=== PATIENT | male | born 1935 | race Caucasian/White ===

== ENCOUNTER 2023-04-30 09:19 | Outpatient (OUT) | payer MEDICARE, OTHER, SELFPAY ==
[2023-04-30 10:06] LABS: Basophils Absolute Auto 0.1 10^3/uL (0.0-0.1); Basophils Percent Auto 0.7 % (0.2-2.0); Eosinophils Absolute Auto 0.1 10^3/uL (0.0-0.7); Eosinophils Percent Auto 0.9 % (0.9-7.0); Hemoglobin 12.9 g/dL (14.0-18.0); Immature Granulocytes Abs Auto 0.05 10^3/uL (0.00-0.03); Immature Granulocytes Pct Auto 0.6 % (0.0-0.5); Lymphocytes Absolute Auto 1.3 10^3/uL (1.2-3.8); Lymphocytes Percent Auto 15.1 % (20.5-60.0); Mean Corpuscular HGB Conc 32.3 g/dL (29.9-35.2); Mean Corpuscular Hemoglobin 30.6 pg (25.9-34.0); Mean Platelet Volume 9.4 fL (9.5-13.5); Monocytes Absolute Auto 0.6 10^3/uL (0.3-0.8); Monocytes Percent Auto 6.6 % (1.7-12.0); Neutrophils Absolute Auto 6.8 10^3/uL (1.4-6.5); Neutrophils Percent Auto 76.1 % (43.0-75.0); Nucleated Red Blood Cells 0; Platelet Count 175 10^3/uL (150-450); Red Blood Count 4.21 10^6/uL (4.70-6.10); Red Cell Distribution Width 13.4 % (11.0-15.0); White Blood Count 8.9 10^3/uL (4.0-11.0)
[2023-04-30 10:09] LABS: Estimated Average Glucose 128 mg/dL; Glycohemoglobin A1C 6.1 % (4.5-6.2)
[2023-04-30 10:30] LABS: Bilirubin Urine NEGATIVE (NEGATIVE); Clarity Urine CLEAR (CLEAR); Color Urine LT. YELLOW (YELLOW); Glucose Urine UA NEGATIVE (NEGATIVE); Ketones Urine NEGATIVE (NEGATIVE); Leukocyte Esterase Urine SMALL (NEGATIVE); Nitrite Urine NEGATIVE (NEGATIVE); Protein Urine NEGATIVE (NEG/TRACE); Urobilinogen Urine 0.2 EU/dL (0.2-1.0); pH Urine 5.5 (5.0-9.0)
[2023-04-30 10:48] LABS: Blood Urine TRACE-I (NEGATIVE)
[2023-04-30 10:49] LABS: Urine Microscopic Indicated YES
[2023-04-30 11:02] LABS: Bacteria Urine TRACE #/HPF (NONE SEEN); Cast Seen? NONE SEEN #/LPF (NONE SEEN); Crystals Seen? None Seen #/HPF (None Seen); Mucus Urine NONE SEEN (NONE SEEN); RBC Urine 0-2 #/HPF (0-2); Squamous Epithelial Cell Urine NONE SEEN #/LPF (NONE/RARE); Urine Culture Indicated YES
[2023-04-30 11:27] LABS: Alanine Aminotransferase 21 U/L (16-63); Albumin Globulin Ratio 1.1; Albumin Level 3.9 g/dL (3.4-5.0); Alkaline Phosphatase 80 U/L (46-116); Aspartate Amino Transferase 17 U/L (15-37); Bilirubin Direct 0.3 mg/dL (0.0-0.2); Bilirubin Total 1.2 mg/dL (0.2-1.0); Carbon Dioxide 29.7 mmol/L (21.0-32.0); Chloride 101 mmol/L (98-107); Chol HDL Ratio 2.1; Cholesterol 109 mg/dL (<=200); Estimated GFR (African America >60 (>=60); Estimated GFR (Non-African Ame 55 (>=60); Globulin 3.4 g/dL; HDL Cholesterol 51 mg/dL (40-60); Potassium 3.7 mmol/L (3.5-5.1); Sodium 139 mmol/L (136-145); Total Protein 7.3 g/dL (6.4-8.2); Triglycerides 70 mg/dL (<=150)
== END 2023-04-30 09:20 ==
DX: Z79.899 Other long term (current) drug therapy (principal); R06.02 Shortness of breath; R73.09 Other abnormal glucose; E78.5 Hyperlipidemia, unspecified; R35.1 Nocturia
CPT/HCPCS: 36415; 80051; 80061; 80076; 81003; 81015; 82565; 83036; 83880; 84520; 85025; 87086

== ENCOUNTER 2023-05-05 18:06 | Outpatient (RCR) | payer MEDICARE, OTHER, SELFPAY | END 2023-05-29 23:59 | disposition home or self-care (01) | LOC: MM 18:06 | PROVIDERS: PCP Internal Medicine; Visit Provider Internal Medicine | DX: Z51.81 Encounter for therapeutic drug level monitoring (principal); Z79.01 Long term (current) use of anticoagulants; I48.91 Unspecified atrial fibrillation ==

== ENCOUNTER 2023-06-04 10:34 | Outpatient (RCR) | payer MEDICARE, SELFPAY | END 2023-06-29 16:54 | disposition home or self-care (01) | LOC: MM 10:34 | PROVIDERS: PCP Internal Medicine; Visit Provider Internal Medicine | DX: Z51.81 Encounter for therapeutic drug level monitoring (principal); Z79.01 Long term (current) use of anticoagulants; I48.91 Unspecified atrial fibrillation | CPT/HCPCS: 85610; G0463 ==

== ENCOUNTER 2023-06-30 09:09 | Outpatient (RCR) | payer MEDICARE, SELFPAY | END 2023-07-30 17:28 | disposition home or self-care (01) | LOC: MM 09:09 | PROVIDERS: Visit Provider Internal Medicine | DX: Z51.81 Encounter for therapeutic drug level monitoring (principal); Z79.01 Long term (current) use of anticoagulants; I48.91 Unspecified atrial fibrillation | CPT/HCPCS: 85610; G0463 ==

== ENCOUNTER 2023-07-31 10:12 | Outpatient (RCR) | payer MEDICARE, SELFPAY | END 2023-08-28 16:45 | disposition home or self-care (01) | LOC: MM 10:12 | PROVIDERS: Visit Provider Internal Medicine | DX: I48.91 Unspecified atrial fibrillation (principal) | CPT/HCPCS: 85610; G0463 ==

== ENCOUNTER 2023-08-31 02:34 | Outpatient (RCR) | payer MEDICARE, SELFPAY | END 2023-09-29 17:39 | disposition home or self-care (01) | LOC: MM 02:34 | PROVIDERS: Visit Provider Internal Medicine | DX: Z51.81 Encounter for therapeutic drug level monitoring (principal); Z79.01 Long term (current) use of anticoagulants; I48.91 Unspecified atrial fibrillation | CPT/HCPCS: 85610; G0463 ==

== ENCOUNTER 2023-09-30 00:28 | Outpatient (RCR) | payer MEDICARE, SELFPAY | END 2023-10-29 16:26 | disposition home or self-care (01) | LOC: MM 00:28 | PROVIDERS: Visit Provider Internal Medicine | DX: Z51.81 Encounter for therapeutic drug level monitoring (principal); Z79.01 Long term (current) use of anticoagulants; I48.91 Unspecified atrial fibrillation | CPT/HCPCS: 85610; G0463 ==

== ENCOUNTER 2023-10-07 09:35 | Outpatient (OUT) | payer MEDICARE, SELFPAY ==
[2023-10-07 10:02] LABS: Basophils Absolute Auto 0.1 10^3/uL (0.0-0.1); Basophils Percent Auto 0.6 % (0.2-2.0); Eosinophils Absolute Auto 0.1 10^3/uL (0.0-0.7); Eosinophils Percent Auto 0.9 % (0.9-7.0); Hematocrit 37.5 % (42.0-54.0); Hemoglobin 11.8 g/dL (14.0-18.0); Immature Granulocytes Abs Auto 0.04 10^3/uL (0.00-0.03); Immature Granulocytes Pct Auto 0.4 % (0.0-0.5); Lymphocytes Absolute Auto 1.4 10^3/uL (1.2-3.8); Lymphocytes Percent Auto 14.7 % (20.5-60.0); Mean Corpuscular HGB Conc 31.5 g/dL (29.9-35.2); Mean Corpuscular Hemoglobin 31.2 pg (25.9-34.0); Mean Corpuscular Volume 99.2 fL (80.0-94.0); Mean Platelet Volume 9.6 fL (9.5-13.5); Monocytes Absolute Auto 0.6 10^3/uL (0.3-0.8); Monocytes Percent Auto 6.2 % (1.7-12.0); Neutrophils Absolute Auto 7.2 10^3/uL (1.4-6.5); Neutrophils Percent Auto 77.2 % (43.0-75.0); Platelet Count 185 10^3/uL (150-450); Red Blood Count 3.78 10^6/uL (4.70-6.10); Red Cell Distribution Width 13.8 % (11.0-15.0); White Blood Count 9.3 10^3/uL (4.0-11.0)
[2023-10-07 10:03] LABS: Estimated Average Glucose 117 mg/dL; Glycohemoglobin A1C 5.7 % (4.5-6.2)
[2023-10-07 10:22] LABS: Alanine Aminotransferase 21 U/L (16-63); Albumin Globulin Ratio 1.3; Albumin Level 3.9 g/dL (3.4-5.0); Alkaline Phosphatase 71 U/L (46-116); Anion Gap 12.8; Aspartate Amino Transferase 15 U/L (15-37); Bilirubin Direct 0.3 mg/dL (0.0-0.2); Bilirubin Total 1.4 mg/dL (0.2-1.0); Carbon Dioxide 28.3 mmol/L (21.0-32.0); Chloride 100 mmol/L (98-107); Chol HDL Ratio 2.3; Cholesterol 108 mg/dL (<=200); Estimated GFR (African America >60 (>=60); Estimated GFR (Non-African Ame >60 (>=60); Globulin 3.1 g/dL; HDL Cholesterol 47 mg/dL (40-60); Potassium 4.1 mmol/L (3.5-5.1); Sodium 137 mmol/L (136-145); Thyroid Stimulating Hormone 3.698 uIU/mL (0.358-3.740); Triglycerides 65 mg/dL (<=150)
[2023-10-07 13:32] LABS: Bilirubin Urine NEGATIVE (NEGATIVE); Blood Urine NEGATIVE (NEGATIVE); Clarity Urine CLEAR (CLEAR); Color Urine YELLOW (YELLOW); Glucose Urine UA NEGATIVE (NEGATIVE); Ketones Urine NEGATIVE (NEGATIVE); Leukocyte Esterase Urine NEGATIVE (NEGATIVE); Nitrite Urine NEGATIVE (NEGATIVE); Protein Urine TRACE mg/dL (NEG/TRACE); Urobilinogen Urine 0.2 EU/dL (0.2-1.0); pH Urine 6.5 (5.0-9.0)
[2023-10-07 13:33] LABS: Urine Microscopic Indicated NO
== END 2023-10-07 09:36 | disposition home or self-care (01) ==
PROVIDERS: Visit Provider Internal Medicine
DX: I50.42 Chronic combined systolic (congestive) and diastolic (congestive) heart failure (principal); R73.09 Other abnormal glucose; D50.9 Iron deficiency anemia, unspecified; N18.30 Chronic kidney disease, stage 3 unspecified; E78.5 Hyperlipidemia, unspecified; Z79.899 Other long term (current) drug therapy; R35.1 Nocturia
CPT/HCPCS: 36415; 80051; 80061; 80076; 81003; 82565; 83036; 83880; 84443; 84520; 85025

== ENCOUNTER 2023-10-28 09:36 | Outpatient (OUT) | payer MEDICARE, SELFPAY ==
--- NOTE | 2023-10-28 10:46 | CA_ITS ---
Patient Name: ALVIN BOYD MR#: [id number] : 1935 Exam Date: 10/28/2023 Ordering Doctor: SHASTA SELBY ECHOCARDIOGRAM REPORT PROCEDURE: CA ECHO DOPPLER COMPLETE INDICATIONS: Aortic root dilatation, Aortic root aneurysm, IL, stents, pacemaker, hypertension COMPARISON: None. DESCRIPTION: COMPLETE ECHOCARDIOGRAM Real-time transthoracic echocardiography with 2D, M-mode, spectral and color flow Doppler performed. QUALITY: Technical quality was good. 68 , 225# , BSA 2.15 m2 LEFT VENTRICLE: Normal chamber size. Thickened septal wall. Normal systolic function. LV EF: Normal left ventricular ejection fraction, (55%). DIASTOLIC: Grade III diastolic dysfunction. ATRIAL SEPTUM: LEFT ATRIUM: Severe dilatation. RIGHT ATRIUM: Moderate dilatation. RIGHT VENTRICLE: Normal chamber size. Normal systolic function. Pacer wire present. TRICUSPID VALVE: Normal mobility and thickness. No stenosis with mild regurgitation. Doppler studies reveal mildly (35-45) elevated right sided pressures. RVSP 39 mmHg MITRAL VALVE: Mildly thickened with normal mobility. No evidence of mitral valve stenosis. Mild mitral annular calcification. Mild mitral regurgitation. AORTIC VALVE: Normal trileaflet appearance. Calcified aortic valve with diminished mobility. There appears to be at least mild aortic valve stenosis. No aortic regurgitation. AORTIC ROOT: Aortic root is moderately dilated (4.0 cm). The ascending aorta is normal in size, measuring 3.6 cm. PULMONIC VALVE: Normal thickness and mobility. No stenosis. No regurgitation. PERICARDIUM: No evidence of pericardial effusion. IVC: Not well visualized. PLEURA: CONCLUSION: 1. Normal left ventricular systolic function. LVEF is 55%. 2. Normal right ventricular size and systolic function. 3. Moderate to severe biatrial dilatation. 4. Grade 3 diastolic dysfunction. 5. Mild mitral and tricuspid regurgitation. 6. Moderately dilated aortic root measuring 4.0 cm. 7. The aortic valve is thickened, calcified with at least mild stenosis. There was inability to visualize the valve well and obtain adequate alignment to measure gradients. Therefore, if clinically indicated, a transesophageal echocardiogram would provide better assessment of the aortic valve. Adult Echocardiography Procedure Report Left Ventricle LVEDD (3.7 - 5.6 cm): 4.55 cm LVESD (2.2 - 4.0 cm): 3.35 cm LVIVS thickness (0.6 - 1.2 cm): 1.48 cm LVPW thickness (0.5 - 1.0 cm): 1.12 cm e': 0.06 m/s E - e': 16.15 LVOT Max Gradient: 1.49 mm[Hg] LVOT Area (cm2): 0.61 m/s Peak Velocity (LVOT): 0.61 m/s Mean Velocity (LVOT): 0.49 m/s LVOT Diameter 2.25 cm Left Atrium LA Volume Index (2D A2C): 51.70 ml/m2 Left Atrium Systolic Dimension: 4.31 cm Mitral Valve MV E to A Ratio: 3.10 Mitral Valve A-Wave Peak Velocity: 0.34 m/s Mitral Valve E-Wave Peak Velocity: 1.04 m/s Right Ventricle Aorta AO Root Diam: 3.98 cm Ascending Ao Diam: 3.22 cm Aortic Valve AoV Area (Peak Cheikh): 1.45 cm2, 1.50 cm2 AoV Area (VTI): 1.65 cm2, 1.74 cm2 Peak Velocity(Antegrade Flow): 1.62 m/s, 1.69 m/s, 1.71 m/s Peak Gradient(Antegrade Flow): 10.44 mm[Hg], 11.43 mm[Hg], 11.73 mm[Hg] Mean Velocity(Antegrade Flow): 1.22 m/s, 1.36 m/s, 1.11 m/s Mean Gradient(Antegrade Flow): 6.47 mm[Hg], 7.70 mm[Hg], 5.68 mm[Hg] Velocity Time Integral: 31.68 cm, 36.73 cm, 31.63 cm Tricuspid Valve Peak Velocity (Regurgitant Flow): 2.43 m/s Pulmonic Valve Peak Velocity: 0.57 m/s Peak Gradient: 0.95 mm[Hg], 1.71 mm[Hg] Right Atrium Right Atrium Systolic Pressure: 85.50 ml, 85.50 ml Dictated by: Salo Campbell M.D. on 10/28/2023 at 20:25 Approved by: Salo Campbell M.D. on 10/28/2023 at 20:28
== END 2023-10-28 09:37 | disposition home or self-care (01) ==
LOC: CARD 09:36
PROVIDERS: Visit Provider Nurse Practitioner
DX: Z51.81 Encounter for therapeutic drug level monitoring (principal); Z79.01 Long term (current) use of anticoagulants; I48.91 Unspecified atrial fibrillation; I50.22 Chronic systolic (congestive) heart failure; I08.3 Combined rheumatic disorders of mitral, aortic and tricuspid valves
CPT/HCPCS: 93306; G0463

== ENCOUNTER 2023-10-30 09:18 | Outpatient (RCR) | payer MEDICARE, SELFPAY | END 2023-11-27 14:42 | disposition home or self-care (01) | LOC: MM 09:18 | PROVIDERS: Visit Provider Internal Medicine | DX: Z51.81 Encounter for therapeutic drug level monitoring (principal); Z79.01 Long term (current) use of anticoagulants; I48.91 Unspecified atrial fibrillation | CPT/HCPCS: 85610; G0463 ==

== ENCOUNTER 2023-11-26 18:01 | Inpatient (IN) | payer MEDICARE, SELFPAY ==
[2023-11-26] VITALS (25 sets, daily range): BP systolic 106–121; BP diastolic 58–66; PULSE 60–63; RESP 13–27; TEMP 36.8–38.7; O2SAT 87–98; BMI 34.9; BMI 36.1
--- OUTSIDE RECORDS SUMMARY | 2023-11-26 18:24 | XMS_ITS | CCD ---
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 Name Role Phone AUXIER, MYRNA DENIS Unavailable Unavailabl e BAKOS, JOHNATHAN Unavailable Unavailable BAKOS, JOHNATHAN Unavailable Unavailable AUXIER, MYRNA DENIS Unavailable Unavailabl e BAKOS, JOHNATHAN Unavailable Unavailable BAKOS, JOHNATHAN Unavailable Unavailable AUXIER, MYRNA DENIS Unavailable Unavailabl e AUXIER, MYRNA DENIS Unavailable Unavailabl e BAKOS, JOHNATHAN Unavailable Unavailable BAKOS, JOHNATHAN Unavailable Unavailable VALONERIO FABIENNE Unavailable Unavailabl e AUXIER, MYRNA DENIS Unavailable Unavailabl e Valone, Rio Fabienne Unavailable Unavailabl e AUXIER, MYRNA DENIS Unavailable Unavailabl e Valone, Rio Fabienne Unavailable Unavailabl e MORLEY, DRAGAN CINTHIA Unavailable Unavailable Morrow, Myrna Denis~[id number] Unavailable Unavailable ValoneRio Fabienne Unavailable Unavailabl e Valone, Rio Fabienne Unavailable Unavailabl e Arsalan Leija Unavailable Unavailable VALONE, RIO FABIENNE Unavailable Unavailabl e MORLEY, DRAGAN CINTHIA Unavailable Unavailable Rio Lal Unavailable Unavailmarquise e VALONERIO Referring Unavailable RIO LAL Primary Care Unavailable PERLITA LUCAS Attending Unavailable PERLITA LUCAS Admitting Unavailable GERBER PETER Admitting Unavailable GERBER PETER Attending Unavailable RIO LAL Referring Unavailable RIO LAL Primary Care Unavailable SHAIKH Milan URIBE Attending Unavailable SHAIKH Milan URIBE Admitting Unavailable DR RIO LAL Primary Care Unavailable SHAIKH Milan URIBE Attending Unavailable SHAIKH Milan URIBE Admitting Unavailable DR RIO LAL Primary Care Unavailable SHAIKH Milan URIBE Attending Unavailable FAWWAD, NOGUEIRA H Admitting Unavailable VALONE, DR MCCLURE Primary Care Unavailable FAWWAD, NOGUEIRA H Attending Unavailable FAWWAD, NOGUEIRA H Admitting Unavailable VALONE, DR MCCLURE Primary Care Unavailable FAWWAD, NOGUEIRA H Admitting Unavailable VALONE, DR MCCLURE Primary Care Unavailable FAWWAD, NOGUEIRA H Attending Unavailable FAWWAD, NOGUEIRA H Admitting Unavailable VALONE, DR MCCLURE Primary Care Unavailable FAWWAD, NOGUEIRA H Attending Unavailable FAWWAD, NOGUEIRA H Attending Unavailable VALONE, DR MCCLURE Primary Care Unavailable FAWWAD, NOGUEIRA H Admitting Unavailable FAWWAD, NOGUEIRA H Attending Unavailable FAWWAD, NOGUEIRA H Admitting Unavailable VALONE, DR MCCLURE Primary Care Unavailable FAWWAD, NOGUEIRA H Attending Unavailable FAWWAD, NOGUEIRA H Admitting Unavailable VALONE, DR MCCLURE Primary Care Unavailable VALONE, DR MCCLURE Primary Care Unavailable VALONE, DR MCCLURE Consulting Unavailable VALONE, DR MCCLURE Attending Unavailable VALONE, DR MCCLURE Admitting Unavailable JAUREGUIDOMINIQUE Consulting Unavailable MANSI ., JERRI Admitting Unavailable VALONE, DR MCCLURE Primary Care Unavailable MANSI ., JERRI Attending Unavailable MANSI ., JERRI Consulting Unavailable FAWWAD, NOGUEIRA H Attending Unavailable FAWWAD, NOGUEIRA H Admitting Unavailable VALONE, DR MCCLURE Primary Care Unavailable FAWWAD, NOGUEIRA H Attending Unavailable FAWWAD, NOGUEIRA H Admitting Unavailable VALONE, DR MCCLURE Primary Care Unavailable SHASTA SELBY Attending Unavailable CUCA YUAN Referring Unavailable CUCA YUAN Referring Unavailable SHASTA SELBY Attending Unavailable DRAGAN SANTOS Attending Unavailable Allergies Allergy Classification Reported Allergen(s) Allergy Type Date of Onset Reaction(s) Facility (1 source) 70597,00; Translations: [Unknown] Propensity to adverse reactions (disorder) 9 [facility] Repository Problems Active Problems Problem Classification Problem Date Documented Date Episodic/Chronic Aortic; peripheral; and visceral artery aneurysms (2 sources) Thoracic aortic ectasia; Translations: [Thoracic aortic ectasia] Onset: 10-19-2023 Chronic Cardiac dysrhythmias (5 sources) Unspecified atrial fibrillation; Translations: [UNSPECIFIED ATRIAL FIBRILLATION] Onset: 03-02-2023 Chronic Chronic kidney disease (1 source) Chronic kidney disease; 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] Onset: 11-12-2022 Conduction disorders (6 sources) Encounter for adjustment and management of automatic implantable cardiac defibrillator; Translations: [Unspecified atrioventricular block] Onset: 10-29-2022 Chronic Congestive heart failure; nonhypertensive (5 sources) Heart failure, unspecified; Translations: [Chronic diastolic (congestive) heart failure] Onset: 11-11-2022 Chronic Coronary atherosclerosis and other heart disease (4 sources) Old myocardial infarction; Translations: [Atherosclerotic heart disease of eek coronary artery without angina pectoris] Onset: 10-29-2022 Chronic Disorders of lipid metabolism (3 sources) Pure hypercholesterolemia, unspecified; Translations: [Mixed hyperlipidemia] Onset: 10-29-2022 Chronic Esophageal disorders (1 source) Gastro-esophageal reflux disease without esophagitis; Translations: [GERD WITHOUT ESOPHAGITIS] Onset: 2022 Chronic Heart valve disorders (4 sources) Nonrheumatic aortic (valve) stenosis; Translations: [Rheumatic mitral valve disease, unspecified] Onset: 10-29-2022 Chronic Hypertension with complications and secondary hypertension (3 sources) Hypertensive heart disease with heart failure; Translations: [HTN HEART DISEASE W/HEART FAIL] Onset: 10-29-2022 Chronic Nutritional deficiencies (1 source) Vitamin D deficiency, unspecified; Translations: [VITAMIN D DEFICIENCY UNSPECIFIED] Onset: 11-12-2022 Chronic Other aftercare (5 sources) Encounter for therapeutic drug level monitoring; Translations: [ENC THERAPEUTC DRUG LEVL MONITORING] Onset: 03-28-2023 Episodic Other aftercare (1 source) FPC (current) use of anticoagulants; Translations: [ALF CURRNT USE ANTICOAGULANTS] Onset: 04-29-2023 Episodic Other connective tissue disease (1 source) Presence of artificial hip joint, bilateral; Translations: [PRESENCE ARTIFICIAL HIP JOINT BILAT] Onset: 2022 Chronic Other nutritional; endocrine; and metabolic disorders (1 source) Morbid (severe) obesity due to excess calories; Translations: [MORBID SEVERE OBES D/T EXCESS LORENA] Onset: 2022 Chronic Other nutritional; endocrine; and metabolic disorders (1 source) Body mass index (BMI) 34.0-34.9, adult; Translations: [BODY MASS INDEX BMI 34.0-34.9 ADULT] Onset: 2022 Chronic Christina-; endo-; and myocarditis; cardiomyopathy (except that caused by tuberculosis or sexually transmitted disease) (2 sources) Cardiomyopathy in diseases classified elsewhere; Translations: [Cardiomyopathy in diseases classified elsewhere] Onset: 10-29-2022 Chronic Residual codes; unclassified (1 source) Sleep apnea, unspecified; Translations: [SLEEP APNEA UNSPECIFIED] Onset: 2022 Chronic Unclassified (1 source) Aneurysm of the ascending aorta, without rupture; Translations: [Aneurysm of the ascending aorta, without rupture] Onset: 10-19-2023 Unclassified (2 sources) Chronic atrial fibrillation, unspecified; Translations: [Chronic atrial fibrillation, unspecified] Onset: 10-29-2022 Past or Other Problems Problem Classification Problem Date Documented Da te Episodic/Chronic Abdominal pain (4 sources) Unspecified abdominal pain; Translations: [UNSPECIFIED ABDOMINAL PAIN] Onset: 12-18-2022 Episodic Coronary atherosclerosis and other heart disease (1 source) Presence of coronary angioplasty implant and graft; Translations: [PRESENCE COR ANGPLSTY IMPLANT AND GRAFT] Onset: 2022 Episodic Deficiency and other anemia (1 source) Iron deficiency anemia, unspecified; Translations: [IRON DEFICIENCY ANEMIA UNSPECIFIED] Onset: 11-12-2022 Episodic Diabetes mellitus without complication (1 source) Other abnormal glucose; Translations: [OTHER ABNORMAL GLUCOSE] Onset: 11-12-2022 Episodic Fluid and electrolyte disorders (1 source) Dehydration; Translations: [DEHYDRATION] Onset: 2022 Episodic Nausea and vomiting (1 source) Nausea; Translations: [NAUSEA] Onset: 2022 Episodic Noninfectious gastroenteritis (1 source) Noninfective gastroenteritis and colitis, unspecified; Translations: [NONINFECTIVE GE AND COLITIS UNS] Onset: 2022 Episodic Other aftercare (1 source) 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; Translations: [OTH ALF CURRENT DRUG THERAPY] Onset: 2022 Episodic Other aftercare (1 source) FPC (current) use of aspirin; Translations: [ALF CURRENT USE OF ASPIRIN] Onset: 2022 Episodic Other lower respiratory disease (2 sources) Other forms of dyspnea; Translations: [Other forms of dyspnea] Onset: 10-29-2022 Episodic Phlebitis; thrombophlebitis and thromboembolism (1 source) Personal history of other venous thrombosis and embolism; Translations: [PERS HX OTH VENOUS THROMBOSIS AND EMBO] Onset: 2022 Episodic Pulmonary heart disease (1 source) Personal history of pulmonary embolism; Translations: [PERSONAL HISTORY PULMONARY EMBOLISM] Onset: 2022 Episodic Residual codes; unclassified (2 sources) Localized edema; Translations: [Localized edema] Onset: 10-29-2022 Episodic Screening and history of mental health and substance abuse codes (1 source) Personal history of nicotine dependence; Translations: [PERSONAL HISTORY OF NICOTINE DEPEND] Onset: 2022 Episodic Unclassified (1 source) Aneurysm of the ascending aorta, without rupture; Translations: [Aneurysm of the ascending aorta, without rupture] Onset: 10-19-2023 Results Test Name Value Interpretation Reference Range Facility Office Visiton 10-19-2023 Follow-up visit [id number] Calin [facility] 1935 M [facility] Provider Department Center 10/19/2023 SHASAT CROFT [facility] No family history on file Level of Service:69187 SD OFFICE/OUTPATIENT ESTABLISHED MOD MDM 30-39 MIN Normal [facility] Office Visiton 04-08-2023 Follow-up visit [id number] Calin Boyd [facility] 1935 M Date Provider Department Center 04/08/2023 SHASTA CROFT [facility] No family history on file Level of Service:57444 SD OFFICE/OUTPATIENT ESTABLISHED MOD MDM 30-39 MIN Reason for Visit and Comments: Coronary Artery Disease [187] Atrial Fibrillation [80] Congestive Heart Failure [127] Hypertension [808753] Valve Disorder [3372] Normal [facility] CBC AUTO DIFFon 12-18-2022 BASO # 0.1 103/ul Normal 0.0-0.1 [facility] Comment on above: Performed By: #### C BC #### [facility] [address] [address] [address] Dana Angulo Basophils/100 WBC (Bld) 0.8 % Normal 0.2-2.0 [facility] Comment on above: Performed By: #### C BC #### [facility] [address] [place] [address] Dr. Dana Angulo EO # 0.1 103/ul Normal 0.0-0.7 [facility] Comment on above: Performed By: #### C BC #### [facility] [address] [place] [address] Dr. Dana Angulo Eosinophils/100 WBC (Bld) 0.9 % Normal 0.9-7.0 [facility] Comment on above: Performed By: #### C BC #### [facility] [address] [place] [address] Dr. Dana Angulo Erythrocyte distribution width (RBC) [Ratio] 13.2 % Normal 11.0-15.0 [facility] Comment on above: Performed By: #### C BC #### [facility] [address] [place] [address] Dr. Dana Angulo Hematocrit (Bld) [Volume fraction] 37.1 % Critically low 42.0-54.0 [facility] Comment on above: Performed By: #### C BC #### [facility] [address] [place] [address] Dr. Dana Angulo Hemoglobin (Bld) [Mass/Vol] 12.1 g/dL Critically low 14.0-18.0 [facility] Comment on above: Performed By: #### C BC #### [facility] [address] [place] [address] Dr. Dana Angulo IG # 0.03 10e3/ul Normal 0.00-0.03 [facility] Comment on above: Performed By: #### C BC #### [facility] [address] [place] [address] Dr. Dana Angulo IG % 0.4 % Normal 0.0-0.5 [facility] Comment on above: Performed By: #### C BC #### [facility] [address] [place] [address] Dr. Dana Angulo LYMPH # 1.4 103/ul Normal 1.2-3.8 [facility] Comment on above: Performed By: #### C BC #### [facility] [address] [place] [address] Dr. Dana Angulo Lymphocytes/100 WBC (Bld) 19.0 % Critically low 20.5-60.0 [facility] Comment on above: Performed By: #### C BC #### [facility] [address] [place] [address] Dr. Dana Angulo MANUAL DIFF REQ NO Normal [facility] Comment on above: Performed By: #### C BC #### [facility] [address] [place] [address] Dr. Dana Angulo MCH (RBC) [Entitic mass] 30.6 pg Normal 25.9-34.0 [facility] Comment on above: Performed By: #### C BC #### [facility] [address] [place] [address] Dr. Dana Angulo MCHC (RBC) [Mass/Vol] 32.6 g/dL Normal 29.9-35.2 [facility] Comment on above: Performed By: #### C BC #### [facility] [address] [place] [address] Dr. Dana Angulo MCV (RBC) [Entitic vol] 93.7 fL Normal 80.0-94.0 [facility] Comment on above: Performed By: #### C BC #### [facility] [address] [place] [address] Dr. Dana Angulo MONO # 0.5 103/ul Normal 0.3-0.8 [facility] Comment on above: Performed By: #### C BC #### [facility] [address] [place] [address] Dr. Dana Angulo Monocytes/100 WBC (Bld) 7.2 % Normal 1.7-12.0 [facility] Comment on above: Performed By: #### C BC #### [facility] [address] [place] [address] Dr. Dana Angulo NEUT # 5.4 103/ul Normal 1.4-6.5 [facility] Comment on above: Performed By: #### C BC #### [facility] [address] [place] [address] Dr. Dana Anuglo Neutrophils/100 WBC (Bld) 71.7 % Normal 43.0-75.0 [facility] Comment on above: Performed By: #### C BC #### [facility] [address] [place] [address] Dr. Dana Angulo Platelet mean volume (Bld) [Entitic vol] 9.6 fL Normal 9.5-13.5 [facility] Comment on above: Performed By: #### C BC #### [facility] [address] [place] [address] Dr. Dana Angulo PLT 165 103/ul Normal 150-450 [facility] Comment on above: Performed By: #### C BC #### [facility] [address] [place] [address] Dr. Dana Angulo RBC 3.96 106/ul Critically low 4.70-6.10 [facility] Comment on above: Performed By: #### C BC #### [facility] [address] [place] [address] Dr. Dana Angulo WBC 7.5 103/ul Normal 4.0-11.0 [facility] Comment on above: Performed By: #### C BC #### [facility] [address] [place] [address] Dr. Dana Angulo ER URINE PROFILEon 3 Bilirubin Ql (U) Negative Normal NEGATIVE [facility] Comment on above: Performed By: #### ANGELINA FRIENDRO #### [facility] [address] [place] [address] Dr. Dana Angulo Clarity (U) CLEAR Normal CLEAR [facility] Comment on above: Performed By: #### ANGELINA FRIENDRO #### [facility] [address] [place] [address] Dr. Dana Angulo Color (U) LT. YELLOW Normal YELLOW [facility] Comment on above: Performed By: #### ANGELINA FRIENDRO #### [facility] [address] [place] [address] Dr. Dana GÓMEZ A micrscopic examina tion will be performed if indicated. Normal [facility] Comment on above: Performed By: #### Marino KENYON UMICRO #### [facility] [address] [place] [address] Dr. Dana Angulo Glucose Ql (U) Negative Normal NEGATIVE [facility] Comment on above: Performed By: #### Marino KENYON UMICRO #### [facility] [address] [place] [address] Dr. Dana Angulo Hemoglobin Ql (U) Negative Normal NEGATIVE [facility] Comment on above: Performed By: #### Marino KENYON UMICRO #### [facility] [address] [place] [address] Dr. Dana Angulo Ketones Ql (U) Negative Normal NEGATIVE [facility] Comment on above: Performed By: #### Marino KENYON UMICRO #### [facility] [address] [place] [address] Dr. Dana Angulo LEUKOCYTES TRACE Abnormal NEGATIVE [facility] Comment on above: Performed By: #### Marino KENYON UMICRO #### [facility] [address] [place] [address] Dr. Dana Angulo Nitrite Ql (U) Negative Normal NEGATIVE [facility] Comment on above: Performed By: #### Marino KENYON UMICRO #### [facility] [address] [place] [address] Dr. Daan Angulo pH (U) 6.0 [pH] Normal 5-9 [facility] Comment on above: Performed By: #### Marino KENYON UMICRO #### [facility] [address] [place] [address] Dr. Dana Angulo SPEC GRAVITY 1.015 Normal 1.005-<=1.02 5 [facility] Comment on above: Performed By: #### Marino KENYON UMICRO #### [facility] [address] [place] [address] Dr. Dana Angulo UA PROTEIN Negative Normal NEGATIVE/ TRACE [facility] Comment on above: Performed By: #### ANGELINA FRIENDRO #### [facility] [address] [place] [address] Dr. Dana Angulo UR MICRO IND INDICATED Normal [facility] Comment on above: Performed By: #### E ANGELINA KENYONRO #### [facility] [address] [place] [address] Dr. Dana Angulo Urobilinogen Qn (U) 0.2 {Delia'U}/dL Normal 0.2 - 1.0 [facility] Comment on above: Performed By: #### ANGELINA FRIENDRO #### [facility] [address] [place] [address] Dr. Dana Angulo LACTATE/LACTIC ACIDon 2022 Lactate [Moles/Vol] 1.1 mmol/L Normal 0.4-1.9 [facility] Comment on above: Performed By: #### L ACT #### [facility] [address] [place] [address] Dr. Dana Angulo LIPASEon 12-18-2022 Lipase [Catalytic activity/Vol] 68.0 U/L Critically low 73.0-393.0 [facility] Comment on above: Performed By: #### C BC #### [facility] [address] [place] [address] Dr. Dana Angulo OCC BLD IMMUNO SCREENon 11-30 OCCULT BLOOD Negative Normal NEGATIVE [facility] Comment on above: Performed By: #### H STROPN #### [facility] [address] [place] [address] Dr. Dana Angulo PROF 14(COMP METB)on 023 Albumin [Mass/Vol] 3.8 g/dL Normal 3.4-5.0 [facility] Comment on above: Performed By: #### C BC #### [facility] [address] [place] [address] Dr. Dana Angulo Albumin/Globulin [Mass ratio] 1.3 {ratio} Normal [facility] Comment on above: Performed By: #### C BC #### [facility] [address] [place] [address] Dr. Dana Angulo ALP [Catalytic activity/Vol] 70 U/L Normal 46-116 [facility] Comment on above: Performed By: #### C BC #### [facility] [address] [place] [address] Dr. Dana Angulo ALT [Catalytic activity/Vol] 22 U/L Normal 16-63 [facility] Comment on above: Performed By: #### C BC #### [facility] [address] [place] [address] Dr. Dana Angulo Anion gap [Moles/Vol] 13.5 mmol/L Normal [facility] Comment on above: Performed By: #### C BC #### [facility] [address] [place] [address] Dr. Dana Angulo AST [Catalytic activity/Vol] 25 U/L Normal 15-37 [facility] Comment on above: Performed By: #### C BC #### [facility] [address] [place] [address] Dr. Dana Angulo Bilirubin [Mass/Vol] 1.0 mg/dL Normal 0.2-1.0 [facility] Comment on above: Performed By: #### C BC #### [facility] [address] [place] [address] Dr. Dana Angulo Calcium [Mass/Vol] 9.7 mg/dL Normal 8.5-10.1 [facility] Comment on above: Performed By: #### C BC #### [facility] [address] [place] [address] Dr. Dana Angulo Chloride [Moles/Vol] 103 mmol/L Normal 98-107 [facility] Comment on above: Performed By: #### C BC #### [facility] [address] [place] [address] Dr. Dana Angulo CO2 [Moles/Vol] 25.1 mmol/L Normal 21.0-32.0 [facility] Comment on above: Performed By: #### C BC #### [facility] [address] [place] [address] Dr. Dana Angulo Creatinine [Mass/Vol] 1.07 mg/dL Normal 0.70-1.30 [facility] Comment on above: Performed By: #### C BC #### [facility] [address] [address] [address] Dana Angulo EGFR-AF FIJIAN >60 Normal >=60 [facility] Comment on above: Performed By: #### C BC #### [facility] [address] [address] [address] Dana Angulo EGFR-NON AF FIJIAN >60 Normal >=60 [facility] Comment on above: Performed By: #### C BC #### [facility] [address] [address] [address] Dana Angulo Globulin (S) [Mass/Vol] 3.0 g/dL Normal [facility] Comment on above: Performed By: #### C BC #### [facility] [address] [place] [address] Dr. Dana Angulo Glucose [Mass/Vol] 115 mg/dL Critically high 74-106 [facility] Comment on above: Performed By: #### C BC #### [facility] [address] [place] [address] Dr. Dana Angulo Potassium [Moles/Vol] 3.6 mmol/L Normal 3.5-5.1 [facility] Comment on above: Performed By: #### C BC #### [facility] [address] [place] [address] Dr. Dana Angulo Protein [Mass/Vol] 6.8 g/dL Normal 6.4-8.2 [facility] Comment on above: Performed By: #### C BC #### [facility] [address] [place] [address] Dr. Dana Angulo Sodium [Moles/Vol] 138 mmol/L Normal 136-145 [facility] Comment on above: Performed By: #### C BC #### [facility] [address] [place] [address] Dr. Dana Angulo Urea nitrogen [Mass/Vol] 39.0 mg/dL Critically high 7.0-18.0 [facility] Comment on above: Performed By: #### C BC #### [facility] [address] [place] [address] Dr. Dana Angulo Urea nitrogen/Creatinin e [Mass ratio] 36.4 mg/mg Normal [facility] Comment on above: Performed By: #### C BC #### [facility] [address] [place] [address] Dr. Dana Angulo PROTIMEon 12-18-2022 INR Coag (PPP) [Relative time] 2.15 {INR} Normal [facility] Comment on above: Performed By: #### P T, PTT #### [facility] [address] [place] [address] Dr. Dana Angulo INR GUIDELINES SEE BELOW Normal [facility] Comment on above: Result Comment: BETTINA RED INR: 2.0 - 3.0 CONDITIONS NOT LISTED BELOW 2.5 - 3.5 FOR PROSTHETIC HEART VALVE REPLACEMENT 2.5 - 3.5 RECURRENT THROMBOSIS Performed By: #### P T, PTT #### [facility] [address] [place] [address] Dr. Dana Angulo PT Coag (PPP) [Time] 21.8 s Critically high 9.0-11.6 [facility] Comment on above: Performed By: #### P T, PTT #### [facility] [address] [place] [address] Dr. Dana Angulo PTTon 12-18-2022 aPTT Coag (Bld) [Time] 35.3 s Normal 22.3-36.2 [facility] Comment on above: Performed By: #### P T, PTT #### [facility] [address] [place] [address] Dr. Dana Angulo TROPONIN, HIGH SENSITIVITYon 12-18-2022 HSTROP 37.2 pg/mL Normal 4.0-76.1 [facility] Comment on above: Result Comment: CUT- OFF POINTS HAVE BEEN ESTABLISHED BASED ON THE FOURTH UNIVERSAL DEFINITIONS OF MYOCARDIAL INFARCTION. THE UPPER REFERENCE LIMIT (URL) OF TROPONIN, DEFINED THE 99TH PERCENTILE OF cTnI DISTRIBUTION IN A REFERENCE POPULATION, HAS BEEN CONFIRMED THE DECISION THRESHOLD FOR [place] DIAGNOSIS. Performed By: #### H STROPN #### [facility] [address] [place] [address] Dr. Dana Angulo HSTROP 39.8 pg/mL Normal 4.0-76.1 [facility] Comment on above: Result Comment: CUT- OFF POINTS HAVE BEEN ESTABLISHED BASED ON THE FOURTH UNIVERSAL DEFINITIONS OF MYOCARDIAL INFARCTION. THE UPPER REFERENCE LIMIT (URL) OF TROPONIN, DEFINED THE 99TH PERCENTILE OF cTnI DISTRIBUTION IN A REFERENCE POPULATION, HAS BEEN CONFIRMED THE DECISION THRESHOLD FOR [place] DIAGNOSIS. Performed By: #### H STROPN #### [facility] [address] [place] [address] Dr. Dana Angulo URINE MICROSCOPIC ONLYon BACTERIA NONE SEEN Normal NONE SEEN [facility] Comment on above: Performed By: #### Marino KENYON UMICRO #### [facility] [address] [place] [address] Dr. Dana Angulo Bacteria identified Cx Nom (U) NOT INDICATED Normal [facility] Comment on above: Performed By: #### Marino KENYON UMICRO #### [facility] [address] [place] [address] Dr. Dana Angulo CAST NONE SEEN Normal NONE SEEN [facility] Comment on above: Performed By: #### Marino KENYON UMICRO #### [facility] [address] [place] [address] Dr. Dana Angulo Crystals LM Nom (Urine sed) NONE SEEN Normal NONE SEEN [facility] Comment on above: Performed By: #### Marino KENYON UMICRO #### [facility] [address] [place] [address] Dr. Dana Angulo Epithelial cells LM Ql (Urine sed) FEW Abnormal NONE SEEN /RARE [facility] Comment on above: Performed By: #### E KOSTAS UMICRO #### [facility] [address] [place] [address] Dr. Dana Angulo MUCOUS NONE SEEN Normal NONE SEEN [facility] Comment on above: Performed By: #### E KOSTAS UMICRO #### [facility] [address] [place] [address] Dr. Dana Angulo RBC NONE SEEN Abnormal 0-2 [facility] Comment on above: Performed By: #### E HUMBERTO KENYON #### [facility] [address] [address] [address] Dana Angulo WBC 2-5 Abnormal NONE SEEN [facility] Comment on above: Performed By: #### E HUMBERTO KENYON #### [facility] [address] [place], [place] [address] Dr. Dana Angulo US SINGLE QUAD RT UPPERon US SINGLE QUAD RT UPPER Ultrasound abdomen right upper quadrant HISTORY: Pain COMPARISON: CT 12/06/2021 TECHNIQUE: Dedicated transabdominal right upper quadrant ultrasound was performed. FINDINGS: The gallbladder is nondistended and without focal wall abnormality. There is a 2.7 cm dependent echogenic structure within the gallbladder lumen compatible with a gallstone. The gallbladder wall measures 2 mm in thickness. No pericholecystic fluid is seen, and the sonographic Way's sign is negative. The proximal common bile duct measures 5 mm in diameter. There is no intrahepatic bile duct dilatation. The liver measures 15 cm, with normal echotexture and echogenicity. Normal hepatopedal flow the main portal vein. Pancreas is not well seen. The right kidney measures 10.2 x 4.7 x 5.3 cm. Extra renal pelvis is noted. There is no hydronephrosis in the right kidney. There is no fluid in the right upper quadrant. IMPRESSION: 1. Cholelithiasis. No sonographic evidence of acute cholecystitis. 2. Normal caliber common bile duct at 5 mm. 3. Right kidney with small extrarenal pelvis. No hydronephrosis. Electronically authenticated by: DOMINIQUE JAUREGUI Date: 2022-12-18 13:05 Normal [facility] BNPon 11-11-2022 Natriuretic peptide B (Bld) [Mass/Vol] 2364.0 pg/mL Critically high <=1,800.0 [facility] Comment on above: Performed By: #### H ASHISH #### [facility] [address] [address] [address] Dana Angulo BUNon 11-11-2022 Urea nitrogen [Mass/Vol] 18.0 mg/dL Normal 7.0-18.0 [facility] Comment on above: Performed By: #### H ASHISH #### [facility] [address] [address] [address] Dana Angulo CBC AUTO DIFFon 11-11-2022 BASO # 0.0 103/ul Normal 0.0-0.1 [facility] Comment on above: Performed By: #### C BC #### [facility] [address] [address] [address] Dana Angulo Basophils/100 WBC (Bld) 0.6 % Normal 0.2-2.0 [facility] Comment on above: Performed By: #### C BC #### [facility] [address] [place] [address] Dr. Dana Angulo EO # 0.1 103/ul Normal 0.0-0.7 [facility] Comment on above: Performed By: #### C BC #### [facility] [address] [place] [address] Dr. Dana Angulo Eosinophils/100 WBC (Bld) 1.3 % Normal 0.9-7.0 [facility] Comment on above: Performed By: #### C BC #### [facility] [address] [place] [address] Dr. Dana Angulo Erythrocyte distribution width (RBC) [Ratio] 13.9 % Normal 11.0-15.0 [facility] Comment on above: Performed By: #### C BC #### [facility] [address] [place] [address] Dr. Dana Angulo Hematocrit (Bld) [Volume fraction] 36.2 % Critically low 42.0-54.0 [facility] Comment on above: Performed By: #### C BC #### [facility] [address] [address] [address] Dana Angulo Hemoglobin (Bld) [Mass/Vol] 11.4 g/dL Critically low 14.0-18.0 [facility] Comment on above: Performed By: #### C BC #### [facility] [address] [place] [address] Dr. Dana Angulo IG # 0.02 10e3/ul Normal 0.00-0.03 [facility] Comment on above: Performed By: #### C BC #### [facility] [address] [place] [address] Dr. Dana Angulo IG % 0.3 % Normal 0.0-0.5 [facility] Comment on above: Performed By: #### C BC #### [facility] [address] [place] [address] Dr. Dana Angulo LYMPH # 1.4 103/ul Normal 1.2-3.8 [facility] Comment on above: Performed By: #### C BC #### [facility] [address] [place] [address] Dr. Dana Angulo Lymphocytes/100 WBC (Bld) 19.8 % Critically low 20.5-60.0 [facility] Comment on above: Performed By: #### C BC #### [facility] [address] [place] [address] Dr. Dana Angulo MANUAL DIFF REQ NO Normal [facility] Comment on above: Performed By: #### C BC #### [facility] [address] [place] [address] Dr. Dana Angulo MCH (RBC) [Entitic mass] 30.9 pg Normal 25.9-34.0 [facility] Comment on above: Performed By: #### C BC #### [facility] [address] [place] [address] Dr. Dana Angulo MCHC (RBC) [Mass/Vol] 31.5 g/dL Normal 29.9-35.2 [facility] Comment on above: Performed By: #### C BC #### [facility] [address] [place] [address] Dr. Dana Angulo MCV (RBC) [Entitic vol] 98.1 fL Critically high 80.0-94.0 [facility] Comment on above: Performed By: #### C BC #### [facility] [address] [place] [address] Dr. Dana Angulo MONO # 0.5 103/ul Normal 0.3-0.8 [facility] Comment on above: Performed By: #### C BC #### [facility] [address] [place] [address] Dr. Dana Angulo Monocytes/100 WBC (Bld) 6.9 % Normal 1.7-12.0 [facility] Comment on above: Performed By: #### C BC #### [facility] [address] [address] [address] Dana Angulo NEUT # 5.1 103/ul Normal 1.4-6.5 [facility] Comment on above: Performed By: #### C BC #### [facility] [address] [place] [address] Dr. Dana Angulo Neutrophils/100 WBC (Bld) 71.1 % Normal 43.0-75.0 [facility] Comment on above: Performed By: #### C BC #### [facility] [address] [place] [address] Dr. Dana Angulo Platelet mean volume (Bld) [Entitic vol] 9.4 fL Critically low 9.5-13.5 [facility] Comment on above: Performed By: #### C BC #### [facility] [address] [place] [address] Dr. Dana Angulo PLT 164 103/ul Normal 150-450 [facility] Comment on above: Performed By: #### C BC #### [facility] [address] [place] [address] Dr. Dana Angulo RBC 3.69 106/ul Critically low 4.70-6.10 [facility] [place] Comment on above: Performed By: #### C BC #### [facility] [address] [place] [address] Dr. Dana Angulo WBC 7.1 103/ul Normal 4.0-11.0 [facility] Comment on above: Performed By: #### C BC #### [facility] [address] [place] [address] Dr. Dana Angulo CREATININEon 11-11-2022 Creatinine [Mass/Vol] 1.10 mg/dL Normal 0.70-1.30 [facility] Comment on above: Performed By: #### H STROPN #### [facility] [address] [address] [address] Dana Angulo EGFR-AF FIJIAN >60 Normal >=60 [facility] Comment on above: Result Comment: Prev iously reported as: >77 On 11/11/2022 10:45 By [email or web address] Previously reported as: (blank) On 11/11/2022 10:44 By BL3 Performed By: #### H STROPN #### [facility] [address] [address] [address] Dana Angulo EGFR-NON AF FIJIAN >60 Normal >=60 [facility] Comment on above: Result Comment: Prev iously reported as: >64 On 11/11/2022 10:45 By BL3 Previously reported as: (blank) On 11/11/2022 10:44 By BL3 Performed By: #### H STROPN #### [facility] [address] [place] [address] Dr. Dana Angulo CULTURE URINEon 11-11-2022 CULTURE URINE Culture Observations : NO GROWTH. Normal [facility] Comment on above: Performed By: #### C BC #### [facility] [address] [place] [address] Dr. Dana Angulo ELECTROLYTESon 11-11-2022 Anion gap [Moles/Vol] 12.7 mmol/L Normal [facility] Comment on above: Performed By: #### H STROPN #### [facility] [address] [place] [address] Dr. Dana Angulo Chloride [Moles/Vol] 103 mmol/L Normal 98-107 [facility] Comment on above: Performed By: #### H STROPN #### [facility] [address] [place] [address] Dr. Dana Angulo CO2 [Moles/Vol] 29.0 mmol/L Normal 21.0-32.0 [facility] Comment on above: Performed By: #### H STROPN #### [facility] [address] [place] [address] Dr. Dana Angulo Potassium [Moles/Vol] 4.7 mmol/L Normal 3.5-5.1 [facility] Comment on above: Performed By: #### H STROPN #### [facility] [address] [address] [address] Dana Angulo Sodium [Moles/Vol] 140 mmol/L Normal 136-145 [facility] Comment on above: Performed By: #### H STROPN #### [facility] [address] [address] [address] Dana Angulo GLYCOHEMOGLOBIN A1Con 2021 ADA RECOMMENDATION SEE BELOW Normal [facility] Comment on above: Result Comment: ADA RECOMMENDED LIMIT 4.0 - 6.0 ADA THERAPEUTIC TARGET < 7.0 ACTION SUGGESTED > 7.0 Performed By: #### H STROPN #### [facility] [address] [address] [address] Dana Angulo Glucose [Mass/Vol] 120 mg/dL Normal [facility] Comment on above: Performed By: #### H STROPN #### [facility] [address] [address] [address] Dana Angulo HbA1c (Bld) [Mass fraction] 5.8 % Normal 4.5-6.2 [facility] Comment on above: Performed By: #### H STROPN #### [facility] [address] [place] [address] Dr. Dana Angulo LIPID PROFILEon 11-11-2022 CHOL-HDL RATIO NORM SEE BELOW Normal [facility] Comment on above: Result Comment: 3.3 - 4.4 LOW RISK 4.4 - 7.1 AVERAGE RISK 7.1 - 11.0 MODERATE RISK >11.0 HIGH RISK Performed By: #### H STROPN #### [facility] [address] [address] [address] Dana Angulo Cholesterol [Mass/Vol] 91 mg/dL Normal <=200 [facility] Comment on above: Performed By: #### H STROPN #### [facility] [address] [address] [address] Dana Anuglo Cholesterol in HDL [Mass/Vol] 49 mg/dL Normal 40-60 [facility] Comment on above: Performed By: #### H STROPN #### [facility] [address] [address] [address] Dana Angulo Cholesterol in LDL [Mass/Vol] 29.4 mg/dL Normal [facility] Comment on above: Performed By: #### H STROPN #### [facility] [address] [address] [address] Dana Angulo Cholesterol.total/ Cholesterol in HDL [Mass ratio] 1.9 {ratio} Normal [facility] Comment on above: Performed By: #### H STROPN #### [facility] [address] [address] [address] Dana Angulo HDL NORMAL > or = 60 mg/dl - LO W CARDIOVASCULAR RISK <40 mg/dl - HIGH CARDIOVASCULAR RISK Normal [facility] Comment on above: Performed By: #### H STROPN #### [facility] [address] [address] [address] Dana Angulo LDL CALC NORMAL SEE BELOW Normal [facility] Comment on above: Result Comment: <100 mg/dl OPTIMAL 100 - 129 mg/dl NEAR OR ABOVE OPTIMAL 130 - 159 mg/dl BORDERLINE HIGH 160 - 189 mg/dl HIGH >190 mg/dl VERY HIGH Performed By: #### H STROPN #### [facility] [address] [address] [address] Dana Angulo Triglyceride [Mass/Vol] 63 mg/dL Normal <=150 [facility] Comment on above: Performed By: #### H STROPN #### [facility] [address] [address] [address] Dana Angulo VLDL CALC 12.6 mg/dL Normal [facility] Comment on above: Performed By: #### H STROPN #### [facility] [address] [address] [address] Dana Angulo LIVER PROFILEon 11-11-2022 Albumin [Mass/Vol] 3.7 g/dL Normal 3.4-5.0 [facility] Comment on above: Performed By: #### H STROPN #### [facility] [address] [address] [address] Dana Angulo Albumin/Globulin [Mass ratio] 1.2 {ratio} Normal [facility] Comment on above: Performed By: #### H STROPN #### [facility] [address] [address] [address] Dana Angulo ALP [Catalytic activity/Vol] 68 U/L Normal 46-116 [facility] Comment on above: Performed By: #### H STROPN #### [facility] [address] [address] [address] Dana Angulo ALT [Catalytic activity/Vol] 20 U/L Normal 16-63 [facility] Comment on above: Performed By: #### H STROPN #### [facility] [address] [address] [address] Dana Angulo AST [Catalytic activity/Vol] 21 U/L Normal 15-37 [facility] Comment on above: Performed By: #### H STROPN #### [facility] [address] [address] [address] Dana Angulo BILI, CONJUGATED 0.3 mg/dL Critically high 0.0-0.2 [facility] Comment on above: Performed By: #### H STROPN #### [facility] [address] [address] [address] Dana Angulo Bilirubin [Mass/Vol] 0.9 mg/dL Normal 0.2-1.0 [facility] Comment on above: Performed By: #### H STROPN #### [facility] [address] [address] [address] Dana Angulo Globulin (S) [Mass/Vol] 3.1 g/dL Normal [facility] Comment on above: Performed By: #### H STROPN #### [facility] [address] [address] [address] Dana Angulo Protein [Mass/Vol] 6.8 g/dL Normal 6.4-8.2 [facility] Comment on above: Performed By: #### H STROPN #### [facility] [address] [address] [address] Dana Angulo TSHon 11-11-2022 TSH 3.426 uIU/mL Normal 0.358-3.740 [facility] Comment on above: Performed By: #### H STROPN #### [facility] [address] [address] [address] Dana Angulo UA (CLEAN/CATCH) RIPSAW OPERATOR/MICRO I F IND.on 11-11-2022 Bilirubin Ql (U) Negative Normal NEGATIVE [facility] Comment on above: Performed By: #### U ACSIND, UMICRO #### [facility] [address] [address] [address] Dana Angulo Clarity (U) CLEAR Normal CLEAR [facility] Comment on above: Performed By: #### U ACSIND, UMICRO #### [facility] [address] [place] [address] Dr. Dana Angulo Color (U) YELLOW Normal YELLOW [facility] Comment on above: Performed By: #### U ACSIND, UMICRO #### [facility] [address] [place] [address] Dr. Dana Angulo Glucose Ql (U) Negative Normal NEGATIVE [facility] Comment on above: Performed By: #### U ACSIND, UMICRO #### [facility] [address] [address] [address] Dana Angulo Hemoglobin Ql (U) Negative Normal NEGATIVE [facility] Comment on above: Performed By: #### U ACSIND, UMICRO #### [facility] [address] [place] [address] Dr. Dana Angulo Ketones Ql (U) TRACE Abnormal NEGATIVE [facility] Comment on above: Performed By: #### U ACSIND, UMICRO #### [facility] [address] [address] [address] Dana Angulo LEUKOCYTES SMALL Abnormal NEGATIVE [facility] Comment on above: Performed By: #### U ACSIND, UMICRO #### [facility] [address] [place] [address] Dr. Dana Angulo Nitrite Ql (U) Negative Normal NEGATIVE [facility] Comment on above: Performed By: #### U ACSIND, UMICRO #### [facility] [address] [place] [address] Dr. Dana Angulo pH (U) 6.0 [pH] Normal 5-9 [facility] Comment on above: Performed By: #### U ACSREGGIE UMICRO #### [facility] [address] [place] [address] Dr. Dana Angulo SPEC GRAVITY 1.015 Normal 1.005-<=1.02 5 [facility] Comment on above: Performed By: #### U ACSREGGIE UMICRO #### [facility] [address] [place] [address] Dr. Dana Angulo UA PROTEIN TRACE Normal NEGATIVE/ TRACE [facility] Comment on above: Performed By: #### U ACSREGGIE UMICRO #### [facility] [address] [place] [address] Dr. Dana Angulo UR MICRO IND INDICATED Normal [facility] Comment on above: Performed By: #### U ACSREGGIE UMICRO #### [facility] [address] [place] [address] Dr. Dana Angulo Urobilinogen Qn (U) 1.0 {Delia'U}/dL Normal 0.2 - 1.0 [facility] Comment on above: Performed By: #### U ACSREGGIE ICRO #### [facility] [address] [place] [address] Dr. Dana Angulo URINE MICROSCOPIC ONLYon BACTERIA TRACE Abnormal NONE SEEN [facility] Comment on above: Performed By: #### U ACSREGGIE UMICRO #### [facility] [address] [place] [address] Dr. Dana Angulo Bacteria identified Cx Nom (U) INDICATED Normal [facility] Comment on above: Performed By: #### U ACSREGGIE UMICRO #### [facility] [address] [place] [address] Dr. Dana Angulo CAST SEEN Abnormal NONE SEEN [facility] Comment on above: Performed By: #### U ACSREGGIE UMICRO #### [facility] [address] [place] [address] Dr. Dana Angulo Crystals LM Nom (Urine sed) NONE SEEN Normal NONE SEEN [facility] Comment on above: Performed By: #### U ACSIND, UMICRO #### [facility] [address] [address] [address] Dana Angulo Epithelial cells LM Ql (Urine sed) RARE Normal NONE SEEN /RARE [facility] Comment on above: Performed By: #### U ACSIND, UMICRO #### [facility] [address] [address] [address] Dana Angulo MUCOUS NONE SEEN Normal NONE SEEN [facility] Comment on above: Performed By: #### U ACSIND, UMICRO #### [facility] [address] [address] [address] Dana Angulo RBC 2-5 Abnormal 0-2 [facility] Comment on above: Performed By: #### U ACSIND, UMICRO #### [facility] [address] [place] [address] Dr. Dana Angulo WBC 2-5 Abnormal NONE SEEN [facility] Comment on above: Performed By: #### U ACSIND, UMICRO #### [facility] [address] [address] [address] Dana Angulo VITAMIN D 25 OHon 11-11-2022 VIT D 25-OH 30.2 ng/mL Normal [facility] Comment on above: Performed By: #### C BC #### [facility] [address] [place] [address] Dr. Dana Angulo VIT D RANGES SEE BELOW Normal [facility] Comment on above: Result Comment: <20 ng/mL Vit D deficient 20 - <30 ng/mL Vit D insufficient 30 - 100 ng/mL Vit D sufficient >100 ng/mL Potential Toxicity Performed By: #### C BC #### [facility] [address] [place] [address] Dr. Dana Angulo Office Visiton 10-29-2022 Follow-up visit [id number] Calin Boyd 1935 M Date Provider Department Center 10/29/2022 DRAGAN KRUSE [facility] No family history on file Level of Service:99922 [place] OFFICE/OUTPATIENT ESTABLISHED MOD MDM 30-39 MIN Reason for Visit and Comments: Coronary Artery Disease [187] Atrial Fibrillation [80] Valve Disorder [3372] Congestive Heart Failure [127] Normal [facility] Cardiovascular Lab Reporton 06-25-2019 Cardiovascular Lab Report [facility] Patient Name: [facility] Alvin Sanchez MR #: [id number] Department of Physician: Geetha Blankenship M.D. Division of Service Date: 06/24/2019 Cardiology Birthdate: 1935 Adult Cardiovascular Room #: Services [facility] [address] [place] [address] Cardiovascular Laboratory Report FINAL IMPRESSION: 1. Normal right and left ventricular filling pressures. 2. Preserved cardiac output and cardiac index. 3. Mild pulmonary artery hypertension. INDICATIONS: The patient is an 83-year-old male, who has heart failure, status post TRANSMISSION INSPECTOR. He has been experiencing shortness of breath despite improvement in his ejection fraction. He was considered for heart catheterization to tailor therapy for heart failure. PROCEDURE: Right heart catheterization. RECOMMENDATION: The current hemodynamic study shows well compensated heart failure and continue medical therapy. The systemic blood pressure was high. Medication for hypertension should be optimized. METHODS: After risks, benefits, and alternatives were explained to the patient, he was brought to the catheterization lab in a fasting state. Right neck was draped and prepped in usual sterile fashion. Using modified Seldinger technique and ultrasound guidance, a 5-Liberian micropuncture was placed in right internal jugular vein. This was upsized to a regular 6-Liberian pinnacle sheath and a 6-Liberian Jackson was used for right heart catheterization. After right heart catheterization, Jackson was removed and hemostasis after manual compression. There were no complications. HEMODYNAMIC DATA: 1. Blood pressure 176/91. 2. RA 7/7. 3. RV 48/7. 4. PA 45/18, mean 30. 5. Pulmonary capillary wedge pressure 12/16, mean 16. 6. PA sat 67%, AO sat 95%. 7. Cardiac output 6.2 and cardiac index 2.8. TOTAL FLUORO TIME: 1.23 minutes. Electronically Signed by: Perlita Lucas M.D. 06/28/2019 03:39 P Perlita Lucas M.D. Date Dict: 06/24/2019/10:49 Rashard/Perlita Lucas M.D. Date Trans: 06/25/2019 05:12 A/deniz [id number] cc: Rio Lal D.O. [address] [place] [address] Normal [facility] Neurosurgery Office/Clinic N saul 04-13-2018 Neurosurgery Office/Clinic Note Chief Complaint BACK PAINHistory of Present Illness Very nice 82 year old male with CHF, htn, CAD s/p cardiac stent x 5, obesity (bmi 34) and pacemaker and coumadin use here to discuss treatment options. His history was reviewed and he agrees with the history obtained by Peyman. 03/29/2018 visit: 82 year old male here for initial evaluation of low back with bilateral leg pain. Low back: daily, 02/06, activity dependent Bilateral legs: lateral thigh to the knee and at times at the ankle region; difficulty ambulating any significant distance (unable to walk a city block), subjective weakness He denies any numbness, tingling, saddle paresthesias, or recent falls conservative therapies: heat, ice, chiropractic, PT, PM (LS ESIs, RFAs, MBBs)Review of Systems naPhysical Exam Vitals & Measurements BP: 128/78 HT: 177 cm WT: 107 kg BMI: 34.15 Additional Vitals No qualifying data available. General: Alert and oriented, well nourished, no acute distress Eye: PERRL, EOMI, normal conjunctiva HENT: Normocephalic, clear tympanic membranes, normal hearing, moist oral mucosa, no scleral icterus, no sinus tenderness Neck: Supple, non-tender, no carotid bruits, no JVD, no lymphadenopathy Lungs: Clear to auscultation and percussion, non-labored respiration Heart: Normal rate, regular rhythm, no murmur, gallop or edema Abdomen: Soft, non-tender, non-distended, normal bowel sounds, no masses]. Musculoskeletal: [Normal range of motion and strength, no tenderness or swelling Skin: Skin is warm, dry and pink, no rashes or lesions Psychiatric: Cooperative, appropriate mood and affect Neurologic: EOMI, PERRLA, TML, FS, No drift 5/5 león UE strength 5/5 león LE strength 2+ UE reflexes 2+ LE reflexes Clonus absentAssessment/Plan Lumbar stenosis Neurogenic claudication Assessment: 1. back pain and bilateral leg pain and neurogenic claudication 2. Lumbar mri: significant stenosis L2-S1, most severe at L4-5 3. Multiple medical comorbidities including advanced age (82), coumadin use, pacemaker, obesity (bmi 34), CHF, htn, CAD s/p cardiac stent x 5 Plan: I recommend L2 to S1 laminectomy and foraminotomy. Described risks include bleeding, infection, neurological injury, stroke, , csf leak, continued pain, medical complication, development of instability, and need for further procedures or surgeries. He understands that I will recommend a short rehab stay after surgery given his age, etc. He wants to think this over.Problem List/Past Medical History Ongoing Acid reflux Angina Arthritis Carpal tunnel Congestive heart failure Home CPAP unit Hypertension Low back pain Sleep apnea Snoring Transfusion Historical No qualifying dataProcedure/Surgical History Sciatic Nerve Block (Bilateral) (01/13/2018), Lumbar/Sacral Transforaminal Epidural Steroid Injection (Bilateral) (11/09/2017), pacemaker (09/23/2017), Lumbar Radiofrequency Ablation (Right) (09/09/2017), Lumbar Radiofrequency Ablation (Left) (08/26/2017), Lumbar/Sacral Dorsal Medial Branch Block (Bilateral) (06/29/2017), Lumbar/Sacral Dorsal Medial Branch Block (Bilateral) (06/15/2017), Lumbar/Sacral Transforaminal Epidural Steroid Injection (Bilateral) (04/22/2017), Lumbar/Sacral Transforaminal Epidural Steroid Injection (Bilateral) (02/18/2017), Cataract extraction, heart stents-x5, left carpal tunnel surgery, left hip replacement, left knee replacement, pacemaker, right hip replacement, right knee replacement.Medications aspirin 81 mg oral tablet, 81 mg, 1 tabs, Oral, Daily atorvastatin 40 mg oral tablet, 40 mg, 1 tabs, Oral, Daily carvedilol 25 mg oral tablet, 25 mg, 1 tabs, Oral, BID DULoxetine 30 mg oral delayed release capsule, 30 mg, 1 caps, Oral, Daily hydrALAZINE 50 mg oral tablet, 50 mg, 1 tabs, Oral, BID hydroCHLOROthiazide 12.5 mg oral capsule, 12.5 mg, 1 caps, Oral, Daily losartan 100 mg oral tablet, 100 mg, 1 tabs, Oral, Daily Metanx, 12.5 mg, Oral, BID warfarin 4 mg oral tablet, See InstructionsAllergies No Known AllergiesSocial History Alcohol Past Employment/School Retired Home/Environment Injuries/Abuse/Neglect in household: No. Sexual History of sexual abuse: No. Substance Abuse Denies All Tobacco Former smokerFamily History Cancer: Sibling. Diabetes mellitus: Mother. Hypertension: Mother. Stroke: Mother.Diagnostic Results Lumbar ct myelogram: L1-L2: There is moderate facet arthropathy and mild ligamentous hypertrophy. There is broad-based disc bulge. There is constriction of the lateral recesses. There is mild left and moderate right neural foraminal narrowing. L2-L3: There is facet arthropathy and ligamentous hypertrophy. There is broad-based disc bulge with disc and spur effacing the thecal sac. There is constriction of the lateral recesses. There is severe left neural foraminal narrowing and moderate to severe right neural foraminal narrowing. There is mild central canal stenosis. L3-L4: There is facet arthropathy and ligamentous hypertrophy. There is triangularization of the thecal sac. There is disc and spur effacing the thecal sac. There is constriction of the lateral recesses. This is greater on the left. There is mild and relative central canal stenosis. There is moderate right and moderate to severe left neural foraminal narrowing. L4-L5: There is facet arthropathy and ligamentous hypertrophy. There is disc and spur effacing the thecal sac. There is severe central canal stenosis with near complete obliteration of CSF space. There is marked constriction of the lateral recesses. There is severe bilateral neural foraminal narrowing, greater on the right. L5-S1: There is facet arthropathy and ligamentous hypertrophy. There is broad-based disc bulge. There is moderate central canal stenosis. There is moderate right and mild left neural foraminal narrowing.Electronically signed by O isacc CAMACHO, Arsalan Owen 04/13/18 15:39 EDT Normal [facility] CT Spine Lumbar w/ Contrasto n 04-06-2018 CT Spine Lumbar w/ Contrast CLINICAL HISTORY: Pain and radiculopathy.EXAMINATION: Contiguous axial images were obtained through the lumbar spine following the intrathecal administration of Omnipaque 180 as previously described. This was supplemented with reformatted coronal and sagittal images.FINDINGS:There is minimal retrolisthesis of L1 with respect to L2 and L2 with respect to L3. Vertebral body heights and alignment are otherwise maintained. There is diffuse osseous demineralization. There is loss of intervertebral disc space height with endplate bone spurring. There is sclerosis greatest at L2-L3. Vacuum disc effect is seen throughout the lumbar spine. There is no suspicious osseous lesion. Mild levoscoliosis is noted. The conus terminates at L1-L2. There are arterial calcifications. There is marked retained stool in the ascending colon. There is heavy calcification in the aorta.T11-T12: Is only partially imaged. There is facet arthropathy and dorsal impression on the thecal sac. There is constriction of the lateral recesses. The central canal remains patent.T12-L1: There is moderate facet arthropathy. There is mild broad-based disc bulge. There is mild bilateral neural foraminal narrowing.L1-L2: There is moderate facet arthropathy and mild ligamentous hypertrophy. There is broad-based disc bulge. There is constriction of the lateral recesses. There is mild left and moderate right neural foraminal narrowing.L2-L3: There is facet arthropathy and ligamentous hypertrophy. There is broad-based disc bulge with disc and spur effacing the thecal sac. There is constriction of the lateral recesses. There is severe left neural foraminal narrowing and moderate to severe right neural foraminal narrowing. There is mild central canal stenosis.L3-L4: There is facet arthropathy and ligamentous hypertrophy. There is triangularization of the thecal sac. There is disc and spur effacing the thecal sac. There is constriction of the lateral recesses. This is greater on the left. There is mild and relative central canal stenosis. There is moderate right and moderate to severe left neural foraminal narrowing.L4-L5: There is facet arthropathy and ligamentous hypertrophy. There is disc and spur effacing the thecal sac. There is severe central canal stenosis with near complete obliteration of CSF space. There is marked constriction of the lateral recesses. There is severe bilateral neural foraminal narrowing, greater on the right.L5-S1: There is facet arthropathy and ligamentous hypertrophy. There is broad-based disc bulge. There is moderate central canal stenosis. There is moderate right and mild left neural foraminal narrowing.IMPRESSION:Degen erative changes greatest at L4-L5 with severe central canal stenosis and bilateral neural foraminal narrowing. Further degenerative changes are detailed above.Radiation Dose Estimate:CTDI(mGy):0.46098 0 / / / kVp:120.214474 / mAs:0.253295 / / / DLP(mGy-cm):5.722151Ztkp Part:CTDI(mGy):28.444045 / / / kVp:120.267641 / mAs:294.623611 / / / DLP(mGy-cm):632.407665Vheu Part: Final Dictated by: Naldo Aguilar MD, MDictated DT/TM: 04.06.2018 11:34 amSigned by: Naldo Aguilar MD MSigned (Electronic Signature): 04.06.2018 3:49 pmTranscribed DT/TM: 04.06.2018 1:29 pm(If Report Is Signed, Electronically Signed in Other Vendor System) Normal [facility] Inpatient Clinical Summaryon 04-06-2018 Inpatient Clinical Summary [address] [address] [address] [address]Avjqmfyg SummaryPerson InformationName: Alvin Boyd Age: 82 Years : 1935Sex: Male PCP: Rio Lal DOMarital Status: PCP: [id number]:White Ethnicity:Not or Language:EnglishMRN: [id number] Visit Id: Reason:stenosis, bilateral leg pain Speciality: Acuity:Enc Type: Outpatient in a Bed Med Service: Radiology-Diagnostic ImagingArrival:04/06/2018 08:16:35 Discharge: Dispo Type:Address:[address] [place] [id number]:Discharged To:Home Treatments:Devices/Equipme nt:Professional Skilled Services:Special Services and Community Resources:Mode of Discharge Transportation:Discharge OrdersAllergies No Known AllergiesFunctional Status:Sensory Deficits:History of Falls:Mobility Assistance Prior to Admission:ADLs:Gait:Ambula tion Assist:Assistive Device:Special Orthopedic Devices:Current Level of Assistance for Self-Care/Mobility:Cogniti ve Status:Orientation:Orienta tion AssessmentLevel of Consciousness:Characterist ics of Speech:Aspiration Risk:Affect/Behavior:Labor atory or Other Results This Visit (last charted value for your 04/06/2018 visit) No Laboratory or Other Results This VisitMeasurements:Height:W eight:Blood Pressure: Not Valued /BMI:Respiratory:Respirati ons:Respiratory Symptoms:Cardiovascular:He art Sounds:Heart Rhythm:Gastrointestinal:GI Symptoms:Bowel Sounds:Vital Signs:Temp Axillary:Temp Temporal Artery:Temp Oral:Temp Rectal:Apical Heart Rate:Peripheral Pulse Rate:Heart Rate:Respiratory Rate:DietDiet:Feeding Tolerance:Appetite:Lorenzo Assessment:Procedures No Procedures DocumentedImmunizations No Immunizations Documented This VisitMedications That Have Not ChangedOther Medicationsaspirin (aspirin 81 mg oral tablet) 1 Tabs Oral (given by mouth) every day.Last Dose: a torvastatin (atorvastatin 40 mg oral tablet) 1 Tabs Oral (given by mouth) every day.Last Dose: c arvedilol (carvedilol 25 mg oral tablet) 1 Tabs Oral (given by mouth) 2 times a day.Last Dose: D ULoxetine (DULoxetine 30 mg oral delayed release capsule) 1 Capsules Oral (given by mouth) every day.Last Dose: h ydrALAZINE (hydrALAZINE 50 mg oral tablet) 1 Tabs Oral (given by mouth) 2 times a day.Last Dose: h ydroCHLOROthiazide (hydroCHLOROthiazide 12.5 mg oral capsule) 1 Capsules Oral (given by mouth) every day.Last Dose: l osartan (losartan 100 mg oral tablet) 1 Tabs Oral (given by mouth) every day.Last Dose: m ultivitamin (Metanx) 12.5 Milligram Oral (given by mouth) 2 times a day.Last Dose: w arfarin (warfarin 4 mg oral tablet) 2tabs on Thursday 1 rest of week.Last Dose: C are Team Members:Attending Physician: Dragan Morley CNP Physician:Referring Physician:Follow up:Type Location Start Finish StateXR Lumbar Spine BV Rad Main 04/06/2018 09:40:00 04/06/2018 10:00:00 ConfirmedCT Lumbar Spine BV CT Scan 04/06/2018 11:50:00 04/06/2018 12:30:00 ConfirmedSP Established Patient Visit [facility] 04/14/2018 14:30:00 04/14/2018 15:00:00 Confirmed Normal [facility] PTon 04-06-2018 INR Coag RelTime (PPP) 1.1 {INR} Normal <=3.5 [facility] Comment on above: Result Comment: INR has no normal range. INR Therapeutic range is:2.0-3.0 (AF, CVA, TIAs, DVT prophylaxis, acute DVT)2.5-3.5 ([facility] heart valves, recurrent thrombosis/emboli) Performed By: #### P TINR ####[place] [address] Prothrombin time (PT) Coag time (PPP) 11.3 s Normal 9.1-11.9 [facility] Comment on above: Performed By: #### P TINR ####[address] [address] PTTon 04-06-2018 aPTT 24.0 s Normal 21.0-28.8 [facility] Comment on above: Performed By: #### P TT ####[address] [address] Platelet Counton 04-06-2018 Platelets 135 x10*3/mcL Low 150-350 [facility] Comment on above: Performed By: #### P LTS ####[address] [address] XR Myelography Lumbosacral S pineon 04-06-2018 XR Myelography Lumbosacral Spine CLINICAL HISTORY: Radiculopathy.EXAMINATION: A fluoroscopically guided lumbar myelogram was performed.FLUOROSCOPY TIME:8 secondsTECHNIQUE AND FINDINGS:The procedure, risks and benefits were explained to the patient and written consent was obtained. The patient was placed in the prone position on the fluoroscopy table. The lumbar spine was prepped and draped in usual sterile fashion. Maximum sterile barrier was utilized. Fluoroscopy was used to localize the intervertebral space at L3-L4. A timeout was completed. The skin was anesthetized with 2% lidocaine. Under fluoroscopic guidance, a 22-gauge spinal needle was inserted into the thecal sac. A small amount of contrast was injected and flowed freely around the nerve roots. Approximately 13 cc of Omnipaque 180 was injected into the thecal sac. There was no myelographic block. The needle was removed and hemostasis was achieved. The patient was placed in the left lateral decubitus position and a lateral image of the lumbar spine was obtained. The patient was sent immediately to CT. Please see CT report for further diagnostic details.IMPRESSION:Success ful and uneventful fluoroscopically guided lumbar myelogram. Final Dictated by: Naldo Aguilar MD, MDicttiffanie DT/TM: 04/06/2018 11:15 amSigned by: Naldo Aguilar MD MSigned (Electronic Signature): 04/06/2018 11:16 am(If Report Is Signed, Electronically Signed in Other Vendor System) Normal [facility] XR Spine Lumbosacral 2 or 3 Viewson 04-06-2018 XR Spine Lumbosacral 2 or 3 Views CLINICAL HISTORY: Back pain.EXAMINATION:Flexion, extension and neutral lateral images of the lumbar spine were obtained.FINDINGS:The vertebral body heights are maintained. There is minimal retrolisthesis of T12 with respect to L1 and L1 with respect to L2. There is no significant change with flexion or extension. There is marked loss of intervertebral disc space height with endplate sclerosis and bone spurring throughout the lumbar spine. There is marked facet arthropathy, greater in the lower lumbar levels. There is markedly limited range of motion. No dynamic subluxation is identified. There is been total hip arthroplasty bilaterally. Heavy arterial calcifications are noted.IMPRESSION:Marked degenerative change and limited range of motion without acute findings. 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 Low back: daily, 02/06, activity dependent Bilateral legs: lateral thigh to the knee and at times at the ankle region; difficulty ambulating any significant distance (unable to walk a city block), subjective weakness He denies any numbness, tingling, saddle paresthesias, or recent falls conservative therapies: heat, ice, chiropractic, PT, PM (LS ESIs, RFAs, MBBs) medical history: CHF, HTN, SAULO, GERD, angina social history: remote tobacco use, surgical history: no prior spinal surgeries Pacemaker cardiac stent x 5 left CTR medication: warfarin ASA 81mg family history: as listed imaging: CT lumbar 02/23/18- DDD with L23, L34 and L45 vacuum disc; L45 moderate canal stenosisReview of Systems General Adult ROS Fatigue: No Appetite change: No Other General: No Weakness: No Weight gain: No Weight Loss: No Cardiovascular Chest pain/pressure: No EENMT Vision Changes: No Gastrointestinal Abdominal pain: No Constipation: No Diarrhea: No Heartburn: No Nausea: No Vomiting: No Genitourinary Decreased urine output: No Frequency: No Hesitancy: No Hematologic/Lymphatic Bleeding tendencies: Yes Bruising: Yes Musculoskeletal Back pain: Yes Joint pain: Yes Joint stiffness: No Joint swelling: No Muscle aches: No Other Musculoskeletal: No Neurological Abnormal Gait: No Focal weakness: No Headache: No Incoordination: No Memory problems: No Numbness: No Other Neurological: No Seizures: No Slurred speech: No Tremor: No Psychiatric Anxiety: No Depression: No Respiratory Cough: No Shortness_of_breath: Yes Snoring: No Wheezing: No Skin Itching: No Lesion/change in moles: No Rash: NoPhysical Exam Vitals & Measurements BP: 124/80 HT: 177 cm WT: 107 kg BMI: 34.15 Additional Vitals Body Mass Index Measured: 34.15 kg/m2 BP Position/Location: Sitting, Left arm Peripheral Pulse Rate: 64 bpm General: [Alert and oriented, well nourished, no acute distress]. Eye: [normal conjunctiva, no scleral icterus]. HENT: [normocephalic, atraumatic, oral mucosa pink and moist, dentition intact]. Neck: [Supple, no carotid bruits]. Pulmonary: [Clear to auscultation, non-labored respiration]. Cardiovascular: [Normal rate, regular rhythm, no murmur, no edema, strong pulses with rapid capillary refill]. Abdomen: [soft, nontender] Skin: [Normal temperature and texture; no rashes; no digit clubbing or cyanosis]. Psychiatric: [Appropriate judgement and insight, appropriate mood and affect]. NEURO EXAM: Pupils are equal bilaterally and reactive to light. No eye deviation at primary gaze. Extraocular movements are full with normal pursuits. Facial sensation is intact. Face is symmetric with normal eye closure and smile; there is full strength in associated musculature. Hearing is intact to finger rub bilaterally. Palate elevates symmetrically, head turning and shoulder shrug is full strength, tongue is midline. Motor: No pronator drift of outstretched arms. Upper Extremity Strength: 5/5 Lower Extremity Strength: 5/5 Reflexes: Reflexes of upper and lower extremities are 1+ and symmetric. Franklin?s sign is negative. Absent pectoral reflex. No clonus. Coordination: Romberg is negative. Sensation: Proprioception intact. Gait: Posture is normal. Gait is antalgic, cane is used. Base is normal, stride reduced. Heel, toe intact. Musculoskeletal: Negative SSLR. Negative hip exam bilaterally. Thoracic spine: No tenderness to palpation noted in the thoracic paraspinal musculature. Lumbar spine: tenderness noted in the lumbar spine and paraspinal musculature. Pain is elicited with flexion and extension. Assessment: 1. low back pain 2. bilateral leg pain 3. CT lumbar 02/23/18- DDD with L23, L34 and L45 vacuum disc; L45 moderate canal stenosis 4. CHF, htn, cardiac stent x 5 5. pacemaker 6. warfarin 7. BMI 34 Plan: 1. CT myelogram lumbar 2. XR lumbar with flex ex 3. follow up Dr. Leija upon completionAssessment/Plan 1. DDD (degenerative disc disease), lumbar Ordered: CT Spine Lumbar w/ Contrast XR Myelography Lumbosacral Spine XR Spine Lumbosacral 2 or 3 Views 2. Lumbar spinal stenosis 3. Lumbago 82 year old male here for initial evaluation of low back with bilateral leg pain. I have reviewed CT imaging, with all questions answered. I have recommended CT myelogram of the lumbar spine in combination with XRs of the lumbar spine with flexion and extension views. 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 Upon completion of diagnostics, I have recommended he follow up with Dr. Leija to review results. Dr. Leija has reviewed his case and is in agreement with the above stated plan.Problem List/Past Medical History Ongoing Acid reflux Angina Arthritis Carpal tunnel Congestive heart failure Home CPAP unit Hypertension Low back pain Sleep apnea Snoring Transfusion Historical No qualifying dataProcedure/Surgical History Sciatic Nerve Block (Bilateral) (01/13/2018), Lumbar/Sacral Transforaminal Epidural Steroid Injection (Bilateral) (11/09/2017), pacemaker (09/23/2017), Lumbar Radiofrequency Ablation (Right) (09/09/2017), Lumbar Radiofrequency Ablation (Left) (08/26/2017), Lumbar/Sacral Dorsal Medial Branch Block (Bilateral) (06/29/2017), Lumbar/Sacral Dorsal Medial Branch Block (Bilateral) (06/15/2017), Lumbar/Sacral Transforaminal Epidural Steroid Injection (Bilateral) (04/22/2017), Lumbar/Sacral Transforaminal Epidural Steroid Injection (Bilateral) (02/18/2017), Cataract extraction, heart stents-x5, left carpal tunnel surgery, left hip replacement, left knee replacement, pacemaker, right hip replacement, right knee replacement.Medications aspirin 81 mg oral tablet, 81 mg, 1 tabs, Oral, Daily atorvastatin 40 mg oral tablet, 40 mg, 1 tabs, Oral, Daily carvedilol 25 mg oral tablet, 25 mg, 1 tabs, Oral, BID DULoxetine 30 mg oral delayed release capsule, 30 mg, 1 caps, Oral, Daily hydrALAZINE 50 mg oral tablet, 50 mg, 1 tabs, Oral, BID hydroCHLOROthiazide 12.5 mg oral capsule, 12.5 mg, 1 caps, Oral, Daily losartan 100 mg oral tablet, 100 mg, 1 tabs, Oral, Daily Metanx, 12.5 mg, Oral, BID warfarin 4 mg oral tablet, See InstructionsAllergies No Known AllergiesSocial History Alcohol Past Employment/School Retired Home/Environment Injuries/Abuse/Neglect in household: No. Sexual History of sexual abuse: No. Substance Abuse Denies All Tobacco Former smokerFamily History Cancer: Sibling. Diabetes mellitus: Mother. Hypertension: Mother. Stroke: Mother.Diagnostic Results CT lumbar 02/23/18- DDD with L23, L34 and L45 vacuum disc; L45 moderate canal stenosisElectronically signed by F JOE Dragan Cinthia 03/29/18 12:41 EDT Normal [facility] Pain Management Office/Clini c Noteon 03-16-2018 Pain Management Office/Clinic Note Chief Complaint bilaterial leg pain, bilaterial hip painHistory of Present Illness AM Behavior: Same Day Progresses Behavior: Same PM Behavior: Same PM Pain location and laterality: bilaterial hip pain, bilaterial leg pain PM Pain quality: Aching PM Pain Pattern: Constant PM Pain Rate at Rest: 3 PM Pain Rate with Activity: 8 Bending: Aggravating Cold/Ice: No effect Heat: No effect PM Lifting: Aggravating Lying: Alleviating Performance of ADL's: Aggravating Sitting: Aggravating Stairs: Aggravating Standing: Aggravating Walking: Aggravating PM Sensory: numbness and tingling in right arm PM Pain Status: Unchanged Date Chiropractor: 11/2016 Date PT: 01/16 Date Injections: 11-09-17 Date Surgery: n/a Frequency PT: [id number] Effective PT: not much help Effective Injections: helped for a short time Comments TENS: NO Comments Chiropractor: 2 TX'S-DR BOWMAN-NO HELP Comments PT: back PM testing appt: Yes PM testing type: ct- lumbar xray- hips and pelvis PM Bowel Bladder: Denies PM Demeanor: Pleasant PM Distress: None PM Appearance: Appropriate PM Cognitive: No PM Safe: Yes PM Hurting: No Since his last encounter he underwent a CT of the lumbar spine and X-ray of the right hip, of which was reviewed with the patient today. He presents today to discuss additional pain therapies that may be of more benefit for him.Review of Systems A review of systems was conducted and noted to be noncontributory to the patients presenting complaint. Full details are available on form [id number] completed by the patient and added to the record on today?s date.Physical Exam Vitals & Measurements RR: 16 BP: 157/99 HT: 177 cm WT: 102.2 kg DOSE WT: 102.2 kg BMI: 32.62 Psych-alert and oriented x 4. Attentive and appropriate, constitutionally normal, displays normal mood and affect per situation. There are no obvious deficits in memory, reasoning, or intellect. Skin-no obvious rashes, bruising, erythema noted to the patient's area of pain. Extremities- extremities are warm with minimal edema and palpable pulses. Lumbar-tenderness to palpation noted in the lumbar spine and paraspinal musculature. Pain is elicited with flexion, extension, and lateral rotation of the lumbar spine. Range of motion is diminished with these motions. Facet loading maneuvers are negative. Sensory-dysesthesia is noted to the right L4, L5 dermatomal distribution Straight leg raise is positive on the right at 60 degrees. Coordination remains intact. Gait remains antalgic and aided with a cane. Additional Vitals Peripheral Pulse Rate: 60 bpmAssessment/Plan Lumbar Spinal Stenosis with Neurogenic ClaudicationPhysician Comments The patient has an upcoming appointment with Dr. Leija for possible surgical considerations. Thank you for allowing me to participate in the patient?s care. I look forward to seeing them as a return patient on an as needed basis.Problem List/Past Medical History Ongoing Acid reflux Angina Carpal tunnel Congestive heart failure Home CPAP unit Hypertension Low back pain Sleep apnea Snoring Historical No qualifying dataProcedure/Surgical History Sciatic Nerve Block (Bilateral) (01/13/2018), Lumbar/Sacral Transforaminal Epidural Steroid Injection (Bilateral) (11/09/2017), pacemaker (09/23/2017), Lumbar Radiofrequency Ablation (Right) (09/09/2017), Lumbar Radiofrequency Ablation (Left) (08/26/2017), Lumbar/Sacral Dorsal Medial Branch Block (Bilateral) (06/29/2017), Lumbar/Sacral Dorsal Medial Branch Block (Bilateral) (06/15/2017), Lumbar/Sacral Transforaminal Epidural Steroid Injection (Bilateral) (04/22/2017), Lumbar/Sacral Transforaminal Epidural Steroid Injection (Bilateral) (02/18/2017), heart stents-x5, left carpal tunnel surgery, left hip replacement, left knee replacement, pacemaker, right hip replacement, right knee replacement.Medications aspirin 81 mg oral tablet, 81 mg, 1 tabs, Oral, Daily atorvastatin 40 mg oral tablet, 40 mg, 1 tabs, Oral, Daily carvedilol 25 mg oral tablet, 25 mg, 1 tabs, Oral, BID DULoxetine 30 mg oral delayed release capsule, 30 mg, 1 caps, Oral, Daily hydrALAZINE 50 mg oral tablet, 50 mg, 1 tabs, Oral, BID losartan 100 mg oral tablet, 100 mg, 1 tabs, Oral, Daily Metanx, 12.5 mg, Oral, BID warfarin 4 mg oral tablet, See InstructionsAllergies No Known AllergiesSocial History Alcohol Never Employment/School Retired Substance Abuse Denies All Tobacco Former smokerDiagnostic Results No qualifying data available. No qualifying data available. No qualifying data available. No qualifying data available.Electronically signed by Myrna Reyes CNP 03/16/18 13:37 EDT [facility] Pain Management Office/Clini c Noteon 02-19-2018 Pain Management Office/Clinic Note Chief Complaint low back radiates down right legHistory of Present Illness PM Pain location and laterality: low back pain radiates down bilateral legs-R>L PM Pain quality: Aching PM Pain Pattern: Intermittent PM Pain Rate at Rest: 3 PM Pain Rate with Activity: 8 Sitting: Aggravating Transitioning: Aggravating Walking: Aggravating PM Sensory: none PM Pain Status: Worse PM Last Procedure 1: BILATERAL SCIATIC NERVE BLOCK PM Procedure Date 1: 01/13/18 PM Pain Level Descr 1: MINIMAL RELIEF- PAIN IN RIGHT LEG>LEFT LEG Date Chiropractor: 11/2016 Date PT: 01/16 Date Injections: 11-09-17 Date Surgery: n/a Frequency PT: [id number] Effective PT: not much help Effective Injections: helped for a short time Comments TENS: NO Comments Chiropractor: 2 TX'S-DR BOWMAN-NO HELP Comments PT: back PM Bowel Bladder: Denies PM Demeanor: Pleasant PM Distress: None PM Appearance: Appropriate PM Cognitive: No PM Safe: Yes PM Hurting: No Family Hx: N/A Personal Hx: N/A Sexual Abuse Hx: No Mental Health.1: N/A Mental Health.2: N/A Total Score: 0 On 01/13/18 he underwent a bilateral sciatic nerve block with in reduction in pain. Patient has failed physical and medical modalities to help alleviate their pain symptoms. This includes but not limited to home exercise program and activity modification for greater than an 8 week time period, which patient does attempt on a daily basis. He has engaged in a formal course of physical therapy in 2017 with no prolonged benefit. This patient has tried over the counter medications and prescription medications that includes but not limited to Aspirin and Tylenol for greater than a 3 month period of time. He presents today to discuss his leg and back pain.Review of Systems A review of systems was conducted and noted to be noncontributory to the patients presenting complaint. Full details are available on form [id number] completed by the patient and added to the record on today?s date.Physical Exam Vitals & Measurements RR: 16 BP: 146/77 HT: 172 cm WT: 102 kg BMI: 34.48 Psych-alert and oriented x 4. Attentive and appropriate, constitutionally normal, displays normal mood and affect per situation. There are no obvious deficits in memory, reasoning, or intellect. Skin-no obvious rashes, bruising, erythema noted to the patient's area of pain. Extremities- extremities are warm with minimal edema and palpable pulses. Lumbar-tenderness to palpation noted in the lumbar spine and paraspinal musculature. Pain is elicited with flexion, extension, and lateral rotation of the lumbar spine. Range of motion is diminished with these motions. Facet loading maneuvers are negative. Strength-decreased strength rated at 4 out of 5 in right anterior tibialis. Sensory-dysesthesia is noted to the right L4, L5 distribution Straight leg raise is positive on the right at 60 degrees. Coordination remains intact. Gait remains antalgic. Additional Vitals BP Position/Location: Sitting Peripheral Pulse Rate: 60 bpmAssessment/Plan Lumbar Spinal Stenosis with Neurogenic ClaudicationPhysician Comments The patient has failed physical and medical modalities as listed above. The patient has established candidacy for CT of the lumbar spine for further evaluation associated with weakness in the right lower extremity. It is felt that due to the severity of the patient?s symptoms and lack of response to conservative treatment, surgical options need to be reviewed at this time. Hopefully this will provide more definitive treatment strategies for these symptoms. Thank you for allowing me to participate in the patient?s care. I look forward to seeing them as a return patient following his CT scan.Problem List/Past Medical History Ongoing Acid reflux Angina Carpal tunnel Congestive heart failure Home CPAP unit Hypertension Low back pain Sleep apnea Snoring Historical No qualifying dataProcedure/Surgical History Sciatic Nerve Block (Bilateral) (01/13/2018), Lumbar/Sacral Transforaminal Epidural Steroid Injection (Bilateral) (11/09/2017), pacemaker (09/23/2017), Lumbar Radiofrequency Ablation (Right) (09/09/2017), Lumbar Radiofrequency Ablation (Left) (08/26/2017), Lumbar/Sacral Dorsal Medial Branch Block (Bilateral) (06/29/2017), Lumbar/Sacral Dorsal Medial Branch Block (Bilateral) (06/15/2017), Lumbar/Sacral Transforaminal Epidural Steroid Injection (Bilateral) (04/22/2017), Lumbar/Sacral Transforaminal Epidural Steroid Injection (Bilateral) (02/18/2017), heart stents-x5, left carpal tunnel surgery, left hip replacement, left knee replacement, pacemaker, right hip replacement, right knee replacement.Medications aspirin 81 mg oral tablet, 81 mg, 1 tabs, Oral, Daily atorvastatin 40 mg oral tablet, 40 mg, 1 tabs, Oral, Daily carvedilol 25 mg oral tablet, 25 mg, 1 tabs, Oral, BID DULoxetine 30 mg oral delayed release capsule, 30 mg, 1 caps, Oral, Daily hydrALAZINE 50 mg oral tablet, 50 mg, 1 tabs, Oral, BID losartan 100 mg oral tablet, 100 mg, 1 tabs, Oral, Daily Metanx, 12.5 mg, Oral, BID warfarin 4 mg oral tablet, See InstructionsAllergies No Known AllergiesSocial History Alcohol Never Employment/School Retired Substance Abuse Denies All Tobacco Former smokerDiagnostic Results No qualifying data available. No qualifying data available. No qualifying data available. No qualifying data available.Electronically signed by A arelis DIAZ Myrna Gardnere 02/19/18 12:56 EDT [facility] History and Physicalon 01-13 History and Physical History of Present Illness The patient has a longstanding history of severe chronic pain that has been associated with lateral sciatica, which has been recalcitrant to conservative treatments and presents today for an interventional pain management procedure. REVIEW OF SYSTEMS Review of Psychiatric, Neurological, Musculoskeletal, Cardiovascular, Endocrine, Gastrointestinal, Pulmonary, and Hematologic Systems was conducted. The review was found to be noncontributory and unchanged from previous clinic visit. PHYSICAL EXAM - Limited Patient is Constitutionally normal and displays a normal mood and affect per situation. Alert and Oriented x 4, Attentive and appropriate, Answers questions appropriately Vital Signs are Stable Heart ? Normal Rate and Rhythm consistent with the patient?s history Lungs ? No significant wheezing, Clear Bilaterally Focused examination findings included severe palpatory tenderness over the left as well as right sciatic notch , without any focal deficits in motor strength testing and deep tendon reflexes in the lower extremities. Supine straight leg raise produces gluteal pain at 25? bilaterally ASSESSMENT / PLAN Diagnosis ? 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 The patient does appear to be in acceptable health today to undergo the procedure. It is felt that the patient will likely benefit from the procedure and that the procedure is medically necessary noting the patient?s poor response to more conservative therapies. For these reasons we will proceed as planned with the bilateral sciatic nerve blockPhysical Exam Vitals & Measurements T: 36.3 ?C (Oral) RR: 16 BP: 156/99 SpO2: 95% WT: 103 kg Additional Vitals Peripheral Pulse Rate: 79 bpmProblem List/Past Medical History Ongoing Acid reflux Angina Carpal tunnel Congestive heart failure Home CPAP unit Hypertension Low back pain Sleep apnea Snoring Historical No qualifying dataProcedure/Surgical History Sciatic Nerve Block (Bilateral) (01/13/2018), Lumbar/Sacral Transforaminal Epidural Steroid Injection (Bilateral) (11/09/2017), pacemaker (09/23/2017), Lumbar Radiofrequency Ablation (Right) (09/09/2017), Lumbar Radiofrequency Ablation (Left) (08/26/2017), Lumbar/Sacral Dorsal Medial Branch Block (Bilateral) (06/29/2017), Lumbar/Sacral Dorsal Medial Branch Block (Bilateral) (06/15/2017), Lumbar/Sacral Transforaminal Epidural Steroid Injection (Bilateral) (04/22/2017), Lumbar/Sacral Transforaminal Epidural Steroid Injection (Bilateral) (02/18/2017), heart stents-x5, left carpal tunnel surgery, left hip replacement, left knee replacement, pacemaker, right hip replacement, right knee replacement.Medications Home aspirin 81 mg oral tablet, 81 mg, 1 tabs, Oral, Daily atorvastatin 40 mg oral tablet, 40 mg, 1 tabs, Oral, Daily carvedilol 25 mg oral tablet, 25 mg, 1 tabs, Oral, BID DULoxetine 30 mg oral delayed release capsule, 30 mg, 1 caps, Oral, Daily hydrALAZINE 50 mg oral tablet, 50 mg, 1 tabs, Oral, BID losartan 100 mg oral tablet, 100 mg, 1 tabs, Oral, Daily Metanx, 12.5 mg, Oral, BID warfarin 4 mg oral tablet, See Instructions Inpatient No active inpatient medications Prescriptions No active PrescriptionsAllergies No Known AllergiesSocial History Alcohol Never Substance Abuse Denies All Tobacco Former smokerLab Results Microbiology No qualifying data available.Diagnostic Results Diagnostic Radiology No qualifying data available. Computed Tomography No qualifying data available. Ultrasound No qualifying data available. Magnetic Resonance Imaging No qualifying data available. Nuclear Medicine No qualifying data available.Electronically signed by Johnathan Guzman MD 01/13/18 15:09 EST [facility] Pain Management Procedure No glenn 01-13-2018 Pain Management Procedure Note PROCEDURE: Bilateral sciatic nerve injection with corticosteroid. PREOPERATIVE AND POSTOPERATIVE DIAGNOSIS: Sciatica COMPLICATIONS: None Physician: Obie Silvestre M.D. SOLUTION USED: Marcaine 0.125% plus Depo-Medrol 40 minutes total volume of 10 mL ?2 PROCEDURE DESCRIPTION: The patient was seen and examined in the preoperative holding area, and was brought to the medical procedure unit, placed in the prone position where time-out was complete, verifying correct patient, procedure, site positioning, implant and special equipment. The area overlyinthe left femoral neck was prepped and draped. Through a raised skin wheal with local anesthetic, a 22 gauge, 6-inch Stimuplex needle was advanced toward the inferior aspect of the femoral neck, emitting 1.0 milliamperes of direct current until plantar flexion was achieved in the ipsilateral foot under direct fluoroscopic visualization. At this point 2 mL of Omnipaque contrast dye was injected and showed adequate spread. There was no evidence of vascular or neural uptake. The above-mentioned injectate was placed in three 1 mL aliquots, preceded by negative aspiration without sequela. The needle was removed, the insertion site was covered. The same procedure was repeated on the contralateral (right) side and again after successful identification of the sciatic nerve at the femoral neck level, we injected 10 mL of the above solution. The patient was taken to the postprocedure recovery area where he was monitored for an appropriate length of time before being found suitable for discharge in the company of a responsible adult.Electronically signed by B cl CAMACHO, Johnathan 01/13/18 15:09 EST Normal [facility] Ambulatory Patient Education on 01-06-2018 Ambulatory Patient Education Patient Education MaterialsName: Alvin Boyd Current Date: 01/06/2018 15:32:58 [place] 1935 following sheet(s) are the Patient Education Leaflets for Alvin Boyd Block InjectionNerve Block injections are used in the treatment of nerve pain, which is sometimes the result of damage to the nerve.The nerve block is a combination of a local anesthetic and steroid. This combination of medicine is then injected around a specific nerve. Disrupting painful nerve impulses can result in varying degrees of symptom relief.How is the procedure performed?You will have an IV started in the pre-op area. All of the sedation medication will go thru your IV. You will be positioned on the procedure table after you are taken into the OR suite. Your heart and breathing will be monitored during this time by anesthesia. The area will be washed with antiseptic solution. X-ray will confirm the placement of the needle and the medication will be injected.What should I expect after the procedure?You may have some numbness in the area where the nerve block was done. This is from the medication used in the injection. It may take 3 days to get full benefits of this injection.What should I do after this procedure?You will be instructed not to drive until the next day. You must have a armor reconnaissance vehicle driver that will wait in the Pain Management lobby during your entire visit. The next day you should be able to resume normal daily activities. You may return to work the day after your procedure, unless otherwise indicated by your physician. If you are a diabetic continue to monitor your blood sugars and contact your diabetes doctor if your finger stick goes over 250mg/dl.Patient Name:You are scheduled for a:*Please allow up to 2 hours for your appointment. Late arrivals may result in delay or postponement of procedure.Date/Time of procedure: Please arrive at: Date/Time of procedure: Please arrive at: Please check in at:[employer] Desk in the Pain Management [id number] [facility], 3rd floor [facility]Reception Desk inside the Emergency Room at [address]*Due to the sedation given for the procedure, you will not be permitted to drive until the following day. For this reason, you will need to bring a armor reconnaissance vehicle driver to stay with you and drive you home following the procedure.*Do not eat or drink anything after midnight the night prior to the procedure. This includes gum, hard candy, and chewing tobacco. The only exception to this is heart, blood pressure, asthma, thyroid, or seizure medications. Those may be taken with a sip of water the morning of the procedure. To ensure your safety while using sedation, your procedure will be rescheduled if you eat or drink.*To decrease the risk of infection, please shower/bathe prior to your procedure. If you are having a stimulator or pump procedure, you will need to use Hibiclens (a medicated soap) prior to your surgery.*[place] teeth, rinse with water, but do not swallow.*Please wear comfortable clothing, without metal zippers or snaps. Do not wear contact lenses. Do wear your hearing aid. Please leave all jewelry and valuables at home; you may wear your wedding ring.*Please note that due to limited space, your family member/armor reconnaissance vehicle driver will need to wait in the waiting area while you are in the procedure area. Absolutely no children should attend an appointment for an injection.*All prescription refills must be requested in advance. No prescription refills requested on the day of a procedure will be available until at least 3 business days later.*If your procedure is done in [place], you will be receiving a statement from [facility] [employer] [facility] for the professional (physician's) billing fees and for the technical (hospital's) fees and a separate statement for the anesthesia provider. If your procedure is done in [place], you will be receiving a statement from [employer] [facility] [employer] [facility] for professional (physician's) billing fees, technical (hospital's) fees, as well as charges for the anesthesia provider.WHAT TO EXPECT THE DAY OF THE PROCEDURE:*You will be brought to the pre-op area where your medical history and medications will be reviewed. If you are scheduled to have sedation, the nurse will start your IV that will be used for administration of the sedation.*You will then be transported to the OR on a stretcher where the nurses will help position you for the injection.*The anesthesia provider will inject medicine into your IV that will make you sleepy. Your doctor will then perform the procedure under live x-ray. A small amount of dye might also be used to confirm placement of the needle for the injection.*After the injection, you will be transferred on a stretcher to the recovery area. A nurse will check your vital signs and have you rate your pain as you wake up. This usually takes approximately 10 minutes. If you are having a stimulator or pump procedure, please allow additional time. After the procedure, your family will be notified and you will be taken out to your car in a wheelchair.Should you have any questions or concerns, please contact the appropriate office:[facility] Pain Management ([place] office) [phone] ([place] office) [phone] follow up appointment is scheduled for:AT:[facility] Pain [facility] [address] [facility], 3rd floor [facility], [facility] Pain Management [address] [facility], [place], [address], [facility] [address] [facility], 2nd floor clinic, [address]?WHAT TO EXPECT AFTER THE PROCEDURE:Please note the procedure that is marked is the only information that pertains to you.You will receive a medication called [Diprivan(Propofol)/Versed (Midazolam)] to aid you to sleep. This medication has the ability to cause impairment to your memory, coordination, and judgment. It is also possible that you might feel dizzy and drowsy throughout the day. It is important for you to be aware of this and to take extra precautionary measures throughout the day.You will not receive anesthesia Diag nostic Facet Injections or Dorsal Medial Branch Block Injections/Genicular Nerve Blocks/Sacroiliac Joint InjectionsMonitor pain relief for 2 hours after the injections and keep pain diary if possible.Perform activities that typically cause pain and increase pain. (for example, bending, twisting, walking, telemedicine physician).Try to avoid pain medication or sleeping during the first 2 hours after the injection.Two hours is the expected duration of relief from this injection.Epidural Injections (Cervical, Thoracic, Lumbar, Caudal)Remove the band-aid 24 hours after the injection.May take approximately 3-5 days to receive the full benefits of the injection.Nerve Root Injections or Sciatic Nerve Block InjectionsIf lumbar (low back) injection, you may have a weak leg for a couple hours after.May take approximately 3-5 days to receive the full benefits of the injection.Radio Frequency Ablation (Cervical, Thoracic, Lumbar)Ice area for 24 hrs after procedure (on 15 minutes and off 60 minutes). Stop icing if irritation or increased pain occurs.May take approximately 3-4 weeks to receive full benefits of the procedure.May cause increased pain the first 3-5 days after procedure. Continue taking pain medication as prescribed. Call Pain Management if pain becomes intolerable.Stellate GanglionOnly clear liquids for the first 2 hours after injection.May take approximately 1 day to receive full benefit of the injection.Sacroiliac Joint/Hip Injection/Ganglion Impar Block/Shoulder InjectionMay take approximately 3-5 days to receive the full benefit of the injection.Axillary Injection/Interscalene Injection/Popliteal Nerve Block InjectionMay have significant weakness for 12-18 hours after injection.Spinal Cord Stimulator TrialNo showers or baths (only sponge bath) until stimulator lead is removed.No bending, twisting, lifting or reaching arms above head until trial is removed.No driving with device in on position.No sliding on or rubbing surgical site against surfaces.Wear loose fitting clothing.Monitor temperature and procedure site specifically for redness, yellow/green drainage and call the office immediately if noted.Contact stimulator textiles sales representative with questions regarding stimulator use.(see rep card)Spinal Cord Stimulator ImplantNo showers (only sponge bath) for 7 days after procedure. Do not immerse in water for 3 weeks after surgery.If absorbable sutures are used, remove dressing at 48 hrs and may take shower then. No immersion in water for 3 weeks after surgery.No bending, twisting or lifting for 6-8 weeks or as directed per your doctor.No driving with device in ?on? position.Monitor temperature and procedure site specifically for redness, yellow/green drainage and call office immediately if noted.Contact stimulator textiles sales representative with questions regarding stimulator use.(see rep card)Spinal Cord Stimulator Implant- *Dr Swenson only*Take bandage off 48 hrs after surgery then can shower when bandage off. Only sponge bath until bandage is taken off.No submerging in water for 7 days after surgery.No bending, twisting or lifting for 6-8 weeks or as directed per your doctor.No driving with device in ?on? position.Monitor temperature and procedure site specifically for redness, yellow/green drainage and call immediately if noted.Contact stimulator textiles sales representative with questions regarding stimulator use.(see rep card) Normal [facility] Pain Management Office/Clini c Noteon 01-06-2018 Pain Management Office/Clinic Note Chief Complaint bilateral posterior leg painHistory of Present Illness AM Behavior: Same Day Progresses Behavior: Same PM Behavior: Same PM Pain location and laterality: bilateral posterior leg pain PM Pain quality: Throbbing PM Pain Pattern: Intermittent PM Pain Rate at Rest: 2 PM Pain Rate with Activity: 5 Lying: Alleviating Performance of ADL's: Aggravating Sitting: No effect Stairs: Aggravating Standing: Aggravating Transitioning: No effect Walking: Aggravating PM Sensory: numbness and tingling right arm- from a fall PM Pain Status: Improved PM Last Procedure 1: bilateral L4-L5 TFESI PM Procedure Date 1: 11/09/17 PM Pain Level Descr 1: significant relief x 2 hours PM Function Descr 1: able to function with less pain for a short period of time. Date Chiropractor: 11/2016 Date PT: 01/16 Date Injections: 11-09-17 Frequency PT: [id number] Effective PT: not much help Effective Injections: helped for a short time Comments TENS: NO Comments Chiropractor: 2 TX'S-DR BOWMAN-NO HELP Comments PT: back PM testing appt: No PM Bowel Bladder: Denies PM Demeanor: Pleasant PM Distress: Mild PM Appearance: Appropriate PM Cognitive: No PM Safe: Yes PM Hurting: No On 11/09/17 he underwent a bilateral L4-5 transforaminal epidural steroid injection with modest improvement that being 60% that continues through today's date. Patient has failed physical and medical modalities to help alleviate their pain symptoms. This includes but not limited to home exercise program and activity modification for greater than an 8 week time period, which patient does attempt on a daily basis. He has engaged in a formal course of physical therapy in 2017 with no prolonged benefit. This patient has tried over the counter medications and prescription medications that includes but not limited to Aspirin and Tylenol for greater than a 3 month period of time. He presents today to discuss his low back and posterior leg pain.Review of Systems A review of systems was conducted and noted to be noncontributory to the patients presenting complaint. Full details are available on form [id number] completed by the patient and added to the record on today?s date.Physical Exam Vitals & Measurements RR: 16 BP: 115/75 HT: 174 cm WT: 100 kg DOSE WT: 100 kg BMI: 33.03 Psych-alert and oriented x 4. Attentive and appropriate, constitutionally normal, displays normal mood and affect per situation. There are no obvious deficits in memory, reasoning, or intellect. Skin-no obvious rashes, bruising, erythema noted to the patient's area of pain. Extremities- extremities are warm with minimal edema and palpable pulses. Lumbar- tenderness to palpation noted in the lumbar spine and paraspinal musculature. Pain is not elicited with flexion, extension, and lateral rotation of the lumbar spine. Range of motion is not diminished with these motions. Facet loading maneuvers are negative. Piriformis tenderness is noted bilaterally. Straight leg raise is positive bilaterally at 60 degrees. Coordination remains intact. Gait remains antalgic. Additional Vitals BP Position/Location: Sitting, Left arm Peripheral Pulse Rate: 67 bpmAssessment/Plan Bilateral SciaticaPhysician Comments The patient has failed physical and medical modalities as listed above. The patient has established candidacy for bilateral sciatic nerve block x1. Thank you for allowing me to participate in the patient?s care. I look forward to seeing them as a return patient following his injection therapy.Problem List/Past Medical History Ongoing Acid reflux Angina Carpal tunnel Congestive heart failure Home CPAP unit Hypertension Low back pain Sleep apnea Snoring Historical No qualifying dataProcedure/Surgical History Lumbar/Sacral Transforaminal Epidural Steroid Injection (Bilateral) (11/09/2017), pacemaker (09/23/2017), Lumbar Radiofrequency Ablation (Right) (09/09/2017), Lumbar Radiofrequency Ablation (Left) (08/26/2017), Lumbar/Sacral Dorsal Medial Branch Block (Bilateral) (06/29/2017), Lumbar/Sacral Dorsal Medial Branch Block (Bilateral) (06/15/2017), Lumbar/Sacral Transforaminal Epidural Steroid Injection (Bilateral) (04/22/2017), Lumbar/Sacral Transforaminal Epidural Steroid Injection (Bilateral) (02/18/2017), heart stents-x5, left carpal tunnel surgery, left hip replacement, left knee replacement, pacemaker, right hip replacement, right knee replacement.Medications aspirin 81 mg oral tablet, 81 mg, 1 tabs, Oral, Daily atorvastatin 40 mg oral tablet, 40 mg, 1 tabs, Oral, Daily carvedilol 25 mg oral tablet, 25 mg, 1 tabs, Oral, BID DULoxetine 30 mg oral delayed release capsule, 30 mg, 1 caps, Oral, Daily hydrALAZINE 50 mg oral tablet, 50 mg, 1 tabs, Oral, BID losartan 100 mg oral tablet, 100 mg, 1 tabs, Oral, Daily Metanx, 12.5 mg, Oral, BID warfarin 4 mg oral tablet, See InstructionsAllergies No Known AllergiesSocial History Alcohol Never Substance Abuse Denies All Tobacco Former smokerDiagnostic Results No qualifying data available. No qualifying data available. No qualifying data available. No qualifying data available.Electronically signed by Myrna Reyes CNP 01/06/18 15:15 EST Normal [facility] Pain Management Office/Clini c Noteon 11-09-2017 Pain Management Office/Clinic Note History of Present Illness The patient has a longstanding history of severe chronic pain originating from the lumbar area which has been recalcitrant to conservative treatments and presents today for an interventional pain management procedure. REVIEW OF SYSTEMS Review of Psychiatric, Neurological, Musculoskeletal, Cardiovascular, Endocrine, Gastrointestinal, Pulmonary, and Hematologic Systems was conducted. The review was found to be noncontributory and unchanged from previous clinic visit. PHYSICAL EXAM - Limited Patient is Constitutionally normal and displays a normal mood and affect per situation. Alert and Oriented x 4, Attentive and appropriate, Answers questions appropriately Vital Signs are Stable Heart - Normal Rate and Rhythm consistent with the patient?s history Lungs - No significant wheezing, Clear Bilaterally Focused examination findings did not reveal any sensorimotor or deep tendon reflex deficits in the lower extremities. There are no neurotension signs pertaining to the lumbar spine. ASSESSMENT / PLAN Diagnosis - Severe Chronic Pain consistent with the patient's relatively advanced degenerative changes in the lumbar spine producing acquired lumbar spinal stenosis Risks/Benefits/Expected Outcomes of the planned procedure were discussed with the patient and the patient is in agreement that the potential benefits outweigh the risks of the procedure. The patient does appear to be in acceptable health today to undergo the procedure. It is felt that the patient will likely benefit from the procedure and that the procedure is medically necessary noting the patient?s poor response to more conservative therapies. For these reasons we will proceed as planned with the pain management procedure. Procedure - epidural injection-transforaminal approachPhysical Exam Vitals & Measurements T: 36.6 ?C (Oral) RR: 16 BP: 134/81 SpO2: 96% WT: 97.5 kg Additional Vitals Peripheral Pulse Rate: 67 bpmAssessment/Plan Spinal stenosis of lumbar region with neurogenic claudication Ordered: Discharge Patient Discharge Special Instructions Neurological Checks Vital SignsProblem List/Past Medical History Ongoing Acid reflux Angina Carpal tunnel Congestive heart failure Home CPAP unit Hypertension Low back pain Sleep apnea Snoring Historical No qualifying dataProcedure/Surgical History Lumbar/Sacral Transforaminal Epidural Steroid Injection (Bilateral) (11/09/2017), pacemaker (09/23/2017), Lumbar Radiofrequency Ablation (Right) (09/09/2017), Lumbar Radiofrequency Ablation (Left) (08/26/2017), Lumbar/Sacral Dorsal Medial Branch Block (Bilateral) (06/29/2017), Lumbar/Sacral Dorsal Medial Branch Block (Bilateral) (06/15/2017), Lumbar/Sacral Transforaminal Epidural Steroid Injection (Bilateral) (04/22/2017), Lumbar/Sacral Transforaminal Epidural Steroid Injection (Bilateral) (02/18/2017), heart stents-x5, left carpal tunnel surgery, left hip replacement, left knee replacement, pacemaker, right hip replacement, right knee replacement.Medications Home aspirin 81 mg oral tablet, 81 mg, 1 tabs, Oral, Daily atorvastatin 40 mg oral tablet, 40 mg, 1 tabs, Oral, Daily carvedilol 25 mg oral tablet, 25 mg, 1 tabs, Oral, BID DULoxetine 30 mg oral delayed release capsule, 30 mg, 1 caps, Oral, Daily hydrALAZINE 50 mg oral tablet, 50 mg, 1 tabs, Oral, BID losartan 100 mg oral tablet, 100 mg, 1 tabs, Oral, Daily Metanx, 12.5 mg, Oral, BID warfarin 4 mg oral tablet, See Instructions Inpatient No active inpatient medications Prescriptions No active PrescriptionsAllergies No Known AllergiesSocial History Alcohol Never Substance Abuse Denies All Tobacco Former smokerLab Results Microbiology No qualifying data available.Diagnostic Results Diagnostic Radiology No qualifying data available. Computed Tomography No qualifying data available. Ultrasound No qualifying data available. Magnetic Resonance Imaging No qualifying data available. Nuclear Medicine No qualifying data available.Electronically signed by B Johnathan smallwood MD 11/09/17 09:27 EST Normal [facility] Procedure Noteon 11-09-2017 Procedure Note PROCEDURE: Bilateral L4-5 lumbar nerve root injection under fluoroscopic guidance. Physician: Obie Silvestre M.D. PRE- AND POSTOPERATIVE DIAGNOSES: Pain secondary to lumbar spinal stenosis. SOLUTION USED: 80 mg Depo-Medrol, 1 mL 2% preservative free lidocaine, 1 mL 0.9%PF normal saline, 1 mL 0.25% preservative free Marcaine. COMPLICATIONS: None. PROCEDURE DESCRIPTION: After informed consent was obtained, the patient was brought to the operating room and was placed in the prone position. Standard ASA monitoring was applied and sedation was initiated. The skin overlying the area was prepped and draped in standard sterile fashion. A 25-gauge spinal needle was inserted through the skin and directed toward the right L4-5 nerve root foramen under fluoroscopic guidance. Omnipaque dye 0.3 mL was injected and appropriate distribution was established without intravascular or intrathecal spread. Subsequently, 1 mL of the corticosteroid and local anesthetic solution was injected. The needle was removed. It was reinserted towards the contralateral (left ) L4?5 nerve root foramen and after needle tip placement and confirmation with Omnipaque dye injected the remaining solution uneventfully and the needle was then withdrawn. The patient was then turned supine onto the gurney and transferred to the recovery area in stable condition, to be discharged home after meeting criteria and follow up as per treatment plan.Electronically signed by Johnathan Guzman MD 11/09/17 09:36 EST Normal [facility] Ambulatory Patient Education on 10-14-2017 Ambulatory Patient Education Patient Education MaterialsName: Alvin Boyd Current Date: 10/14/2017 11:49:11 [place] 1935 following sheet(s) are the Patient Education Leaflets for Alvin Boydaticaleb Name:You are scheduled for a:*Please allow up to 2 hours for your appointment. Late arrivals may result in delay or postponement of procedure.Date/Time of procedure: Please arrive at: Date/Time of procedure: Please arrive at: Please check in at:[employer] [facility]k in the Pain Management [id number] [place] [address], 3rd floor [facility] inside the Emergency Room at [address]*Due to the sedation given for the procedure, you will not be permitted to drive until the following day. For this reason, you will need to bring a armor reconnaissance vehicle driver to stay with you and drive you home following the procedure.*Do not eat or drink anything after midnight the night prior to the procedure. This includes gum, hard candy, and chewing tobacco. The only exception to this is heart, blood pressure, asthma, thyroid, or seizure medications. Those may be taken with a sip of water the morning of the procedure. To ensure your safety while using sedation, your procedure will be rescheduled if you eat or drink.*To decrease the risk of infection, please shower/bathe prior to your procedure. If you are having a stimulator or pump procedure, you will need to use Hibiclens (a medicated soap) prior to your surgery.*[place] teeth, rinse with water, but do not swallow.*Please wear comfortable clothing, without metal zippers or snaps. Do not wear contact lenses. Do wear your hearing aid. Please leave all jewelry and valuables at home; you may wear your wedding ring.*Please note that due to limited space, your family member/armor reconnaissance vehicle driver will need to wait in the waiting area while you are in the procedure area. Absolutely no children should attend an appointment for an injection.*All prescription refills must be requested in advance. No prescription refills requested on the day of a procedure will be available until at least 3 business days later.*If your procedure is done in [place], you will be receiving a statement from [facility] for the professional (physician's) billing fees and for the technical (hospital's) fees and a separate statement for the anesthesia provider. If your procedure is done in [place], you will be receiving a statement from [facility] for professional (physician's) billing fees, technical (hospital's) fees, as well as charges for the anesthesia provider.WHAT TO EXPECT THE DAY OF THE PROCEDURE:*You will be brought to the pre-op area where your medical history and medications will be reviewed. If you are scheduled to have sedation, the nurse will start your IV that will be used for administration of the sedation.*You will then be transported to the OR on a stretcher where the nurses will help position you for the injection.*The anesthesia provider will inject medicine into your IV that will make you sleepy. Your doctor will then perform the procedure under live x-ray. A small amount of dye might also be used to confirm placement of the needle for the injection.*After the injection, you will be transferred on a stretcher to the recovery area. A nurse will check your vital signs and have you rate your pain as you wake up. This usually takes approximately 10 minutes. If you are having a stimulator or pump procedure, please allow additional time. After the procedure, your family will be notified and you will be taken out to your car in a wheelchair.Should you have any questions or concerns, please contact the appropriate office:[facility] ([place] office) [phone] [facility] ([place] office) [phone] follow up appointment is scheduled for:AT:[facility] [address] [facility], 3rd floor [facility], [facility] [address] [facility], [place], [address], [facility] [address] [facility], 2nd floor clinic, [facility] [address] [facility]?WHAT TO EXPECT AFTER THE PROCEDURE:Please note the procedure that is marked is the only information that pertains to you.You will receive a medication called [Diprivan(Propofol)/Versed (Midazolam)] to aid you to sleep. This medication has the ability to cause impairment to your memory, coordination, and judgment. It is also possible that you might feel dizzy and drowsy throughout the day. It is important for you to be aware of this and to take extra precautionary measures throughout the day.You will not receive anesthesia Diag nostic Facet Injections or Dorsal Medial Branch Block Injections/Genicular Nerve Blocks/Sacroiliac Joint InjectionsMonitor pain relief for 2 hours after the injections and keep pain diary if possible.Perform activities that typically cause pain and increase pain. (for example, bending, twisting, walking, telemedicine physician).Try to avoid pain medication or sleeping during the first 2 hours after the injection.Two hours is the expected duration of relief from this injection.Epidural Injections (Cervical, Thoracic, Lumbar, Caudal)Remove the band-aid 24 hours after the injection.May take approximately 3-5 days to receive the full benefits of the injection.Nerve Root Injections or Sciatic Nerve Block InjectionsIf lumbar (low back) injection, you may have a weak leg for a couple hours after.May take approximately 3-5 days to receive the full benefits of the injection.Radio Frequency Ablation (Cervical, Thoracic, Lumbar)Ice area for 24 hrs after procedure (on 15 minutes and off 60 minutes). Stop icing if irritation or increased pain occurs.May take approximately 3-4 weeks to receive full benefits of the procedure.May cause increased pain the first 3-5 days after procedure. Continue taking pain medication as prescribed. Call Pain Management if pain becomes intolerable.Stellate GanglionOnly clear liquids for the first 2 hours after injection.May take approximately 1 day to receive full benefit of the injection.Sacroiliac Joint/Hip Injection/Ganglion Impar Block/Shoulder InjectionMay take approximately 3-5 days to receive the full benefit of the injection.Axillary Injection/Interscalene Injection/Popliteal Nerve Block InjectionMay have significant weakness for 12-18 hours after injection.Spinal Cord Stimulator TrialNo showers or baths (only sponge bath) until stimulator lead is removed.No bending, twisting, lifting or reaching arms above head until trial is removed.No driving with device in on position.No sliding on or rubbing surgical site against surfaces.Wear loose fitting clothing.Monitor temperature and procedure site specifically for redness, yellow/green drainage and call the office immediately if noted.Contact stimulator textiles sales representative with questions regarding stimulator use.(see rep card)Spinal Cord Stimulator ImplantNo showers (only sponge bath) for 7 days after procedure. Do not immerse in water for 3 weeks after surgery.If absorbable sutures are used, remove dressing at 48 hrs and may take shower then. No immersion in water for 3 weeks after surgery.No bending, twisting or lifting for 6-8 weeks or as directed per your doctor.No driving with device in ?on? position.Monitor temperature and procedure site specifically for redness, yellow/green drainage and call office immediately if noted.Contact stimulator textiles sales representative with questions regarding stimulator use.(see rep card)Spinal Cord Stimulator Implant- *Dr Swenson only*Take bandage off 48 hrs after surgery then can shower when bandage off. Only sponge bath until bandage is taken off.No submerging in water for 7 days after surgery.No bending, twisting or lifting for 6-8 weeks or as directed per your doctor.No driving with device in ?on? position.Monitor temperature and procedure site specifically for redness, yellow/green drainage and call immediately if noted.Contact stimulator textiles sales representative with questions regarding stimulator use.(see rep card)Nerve Root InjectionThe nerve root injection is a procedure where a local anesthetic and steroid solution are administered near the nerve as it exits the spinal canal. This is done under fluoroscopy (watching under live x-ray) to deliver the drug to the precise location.Am I a candidate for a nerve root injection?At [facility], the provider examining you will decide whether you are a candidate for nerve root injection. Usual conditions for which nerve root injections are done would be herniated or bulging disc, sciatica, and degenerative disc disease. This is not a complete list of the conditions for which injections are done. Please discuss with your provider for more details.What are the benefits of a nerve root injection?Nerve root injections can reduce inflammation of the nerves and provide pain relief.How long does the procedure take?The procedure takes approximately 15 minutes.Where is the procedure performed?It is done as an outpatient in our surgical suite under fluoroscopy.How is the procedure performed?An IV is started and you will receive sedation through the IV to make you comfortable. A needle is advanced under fluoroscopic guidance at the side opening of the spine where the nerve exits. Proper position of the needle is confirmed by injecting a special dye. We will not use dye if the patient is allergic to the dye. After confirming the needle location, we will inject the local anesthetic and steroid solution.I am afraid of needles. Will I have a lot of pain?Your physician will do everything possible to do the procedure with minimal, if any, pain. As explained above, you will be given sedation intravenously and local anesthetic (numbing medication) at the site of the needle placement.Can I be sedated for the procedure?Yes. You will be awake but usually very comfortable during the procedure. On occasion we will need to interact with you. It is likely that you will have no memory of the actual procedure. You are required to have a armor reconnaissance vehicle driver remain in the facility before and during the procedure, then drive you home following the procedure.What can I expect after the procedure?Immediately after the procedure, you may have relief of your pain. Sometimes you may feel numbness in your legs or arms, depending upon where the procedure was done.This is from the local anesthetic that was used during the procedure. Four to six hours after the local anesthetic wears off, your pain may come back. Sometimes your pain may even get slightly worse for up to 48 hours. You may not see full improvement in your symptoms until the 4th or 5th day.What should I do after the procedure?After the procedure, you will be required to have someone drive you home. The next day you should be able to resume your normal daily activities that you were doing prior to the procedure.Can I go to work the next day?If you are working prior to the procedure, you can go back to work the following day. If you were not working prior to the procedure, due to the pain and other problems, you should discuss this with your provider for further instructions.What are the risks and side effects?Usually the procedure is safe. However, with any procedure, there are risks, side effects and complications. The risks, side effects, and complications vary depending upon where the nerve root injection was done. Whenever an injection is done through the skin, there is a risk of infection. To prevent this, we perform the injection under sterile conditions. In spite of this, you can still develop infections and soreness. In addition, one may develop more numbness than expected depending upon the spread of the local anesthetic. One may also develop a headache if there is spinal fluid leakage. Bleeding in the soft tissues or the spinal canal may occur in rare occasions, especially if you are on anticoagulants (?blood thinner?) or have various rare conditions that affect blood clotting. Infection or bleeding in the spinal canal may lead to neurological damage. However, all the complications are extremely rare.Can you tell me more about the ?spinal headache??This headache usually develops as a result of spinal fluid leakage from the injection. It has different symptoms than other types of headaches, such as migraines. In our experience, the chance of someone developing a headache is less than 1%. The headache may last anywhere from 5-10 days and may even require an additional procedure called a blood patch.How many nerve root injections do I need?It varies and would depend upon your response to the first injection. Upon re-evaluation, this will be decided by the provider.How should I prepare for the procedure?Unless otherwise instructed, you should not eat or drink anything after midnight the night before the procedure. You should stop taking any blood thinners at least five days before the procedure. You can take all of your other medications except oral diabetic meds with a sip of water the morning of the procedure. Diabetics, please discuss with your physician regarding your other diabetic medications. Also, check your fingerstick blood sugar at home the morning of the procedure. Normal [facility] Pain Management Office/Clini c Noteon 10-14-2017 Pain Management Office/Clinic Note Chief Complaint Low back and leg painHistory of Present Illness PM Details: PM Details PM Pain location and laterality: posterior bilateral thigh pain PM Pain quality: Aching PM Pain Pattern: Intermittent PM Pain Rate at Rest: 0 PM Pain Rate with Activity: 4 Sitting: Alleviating Standing: Aggravating Walking: Aggravating PM Sensory: denies PM Pain Status: Improved PM Last Procedure 1: Left radio frequency ablation [id number] PM Procedure Date 1: 08/26/17 PM Pain Level Descr 1: 80% relief which continues PM Function Descr 1: 80% relief which continues PM RFA 1: Yes PM Last Procedure 2: Yes PM Last Procedure 2 Description: Right radio frequency ablation [id number] PM Procedure Date 2: 09/09/17 PM Pain Level Descr 2: 80% relief which continues PM Function Descr 2: 80% relief which continues PM RFA 2: Yes Date Chiropractor: 11/2016 Date PT: 01/16 Frequency PT: [id number] Effective PT: not much help Comments TENS: NO Comments Chiropractor: 2 TX'S-DR BOWMAN-NO HELP Comments PT: back PM testing appt: No PM Bowel Bladder: Denies PM Demeanor: Pleasant PM Distress: None PM Appearance: Appropriate PM Cognitive: No PM Safe: Yes PM Hurting: No On 08/26/17 and 09/09/17 he underwent a left then right L3, L4, L5 RFA's of which has provided him with 80% reduction in pain that continues through today's date. Patient has failed physical and medical modalities to help alleviate their pain symptoms. This includes but not limited to home exercise program and activity modification for greater than an 8 week time period, which patient does attempt on a daily basis. He has engaged with a formal course of physical therapy this year with some degree of reduction in pain. This patient has tried over the counter medications and prescription medications that includes but not limited to Tylenol and aspirin for greater than a 3 month period of time. He presents today to discuss his low back and leg pain.Review of Systems A review of systems was conducted and noted to be noncontributory to the patients presenting complaint. Full details are available on form [id number] completed by the patient and added to the record on today?s date.Physical Exam Vitals & Measurements RR: 16 BP: 110/61 HT: 175 cm WT: 100 kg DOSE WT: 100 kg BMI: 32.65 Psych-alert and oriented x 4. Attentive and appropriate, constitutionally normal, displays normal mood and affect per situation. There are no obvious deficits in memory, reasoning, or intellect. Skin-no obvious rashes, bruising, erythema noted to the patient's area of pain. Extremities- extremities are warm with minimal edema and palpable pulses. Lumbar-tenderness to palpation noted in the lumbar spine and paraspinal musculature. Pain is elicited with flexion, extension, and lateral rotation of the lumbar spine. Range of motion is diminished with these motions. Facet loading maneuvers are negative. Sensory-dysesthesia is noted to the bilateral L4 dermatomal distribution Coordination remains intact. Gait remains slightly antalgic. Additional Vitals Peripheral Pulse Rate: 79 bpmAssessment/Plan Lumbar Spinal Stenosis with neurogenic claudicationPhysician Comments The patient has failed physical and medical modalities as listed above. The patient has established candidacy for bilateral L4 transforaminal epidural steroid injection x1. Under historical review he underwent this same procedure on 02/18/17 and 04/22/17 with significant reduction in his leg pain. It is hopeful this will provide a similar response. Thank you for allowing me to participate in the patient?s care. I look forward to seeing them as a return patient following his injection.Problem List/Past Medical History Ongoing Acid reflux Angina Carpal tunnel Congestive heart failure Home CPAP unit Hypertension Low back pain Sleep apnea Snoring Historical No qualifying dataProcedure/Surgical History pacemaker (09/23/2017), Lumbar Radiofrequency Ablation (Right) (09/09/2017), Lumbar Radiofrequency Ablation (Left) (08/26/2017), Lumbar/Sacral Dorsal Medial Branch Block (Bilateral) (06/29/2017), Lumbar/Sacral Dorsal Medial Branch Block (Bilateral) (06/15/2017), Lumbar/Sacral Transforaminal Epidural Steroid Injection (Bilateral) (04/22/2017), Lumbar/Sacral Transforaminal Epidural Steroid Injection (Bilateral) (02/18/2017), heart stents-x5, left carpal tunnel surgery, left hip replacement, left knee replacement, pacemaker, right hip replacement, right knee replacement.Medications aspirin 81 mg oral tablet, 81 mg, 1 tabs, Oral, Daily atorvastatin 40 mg oral tablet, 40 mg, 1 tabs, Oral, Daily carvedilol 25 mg oral tablet, 25 mg, 1 tabs, Oral, BID DULoxetine 30 mg oral delayed release capsule, 30 mg, 1 caps, Oral, Daily hydrALAZINE 50 mg oral tablet, 50 mg, 1 tabs, Oral, BID losartan 100 mg oral tablet, 100 mg, 1 tabs, Oral, Daily Metanx, 12.5 mg, Oral, BID warfarin 4 mg oral tablet, See InstructionsAllergies No Known AllergiesSocial History Alcohol Never Substance Abuse Denies All Tobacco Former smokerDiagnostic Results No qualifying data available. No qualifying data available. No qualifying data available. No qualifying data available.Electronically signed by Myrna Reyes CNP 10/14/17 11:44 EST Normal [facility] History and Physicalon 09-09 History and Physical History of Present IllnessHistory of Present Illness The patient has a longstanding history of severe chronic pain originating from the lumbar area which has been recalcitrant to conservative treatments and presents today for an interventional pain management procedure. REVIEW OF SYSTEMS Review of Psychiatric, Neurological, Musculoskeletal, Cardiovascular, Endocrine, Gastrointestinal, Pulmonary, and Hematologic Systems was conducted. The review was found to be noncontributory and unchanged from previous clinic visit. PHYSICAL EXAM - Limited Patient is Constitutionally normal and displays a normal mood and affect per situation. Alert and Oriented x 4, Attentive and appropriate, Answers questions appropriately Vital Signs are Stable Heart - Normal Rate and Rhythm consistent with the patient?s history Lungs - No significant wheezing, Clear Bilaterally Focused examination findings did not reveal any sensorimotor or deep tendon reflex deficits in the lower extremities. There are no neurotension signs pertaining to the lumbar spine. ASSESSMENT / PLAN Diagnosis - Severe Chronic Pain consistent with the patient's relatively advanced degenerative changes in the lumbar spine producing acquired lumbar spinal stenosis Risks/Benefits/Expected Outcomes of the planned procedure were discussed with the patient and the patient is in agreement that the potential benefits outweigh the risks of the procedure. The patient does appear to be in acceptable health today to undergo the procedure. It is felt that the patient will likely benefit from the procedure and that the procedure is medically necessary noting the patient?s poor response to more conservative therapies. For these reasons we will proceed as planned with the pain management procedure. Procedure - epidural interlaminar approachPhysical Exam Vitals & Measurements T: 36.5 ?C (Oral) RR: 16 BP: 97/58 SpO2: 94% WT: 97.5 kg Additional Vitals Peripheral Pulse Rate: 70 bpmAssessment/Plan Ordered: Sodium Chloride 0.9% 500 mL, 500 mL, Soln-IV, IV, 15 mL/hr, Start Date: 09/09/17 9:26:00 EDT, Dispense From Location: Pain Management ([facility]) Discharge Patient Discharge Special Instructions Discontinue IV Neurological Checks NPO Peripheral IV Insert and Maintain Vital Signs Vital SignsProblem List/Past Medical History Ongoing Acid reflux Angina Carpal tunnel Congestive heart failure Home CPAP unit Hypertension Low back pain Sleep apnea Snoring Historical No qualifying dataProcedure/Surgical History Lumbar Radiofrequency Ablation (Right) (09/09/2017), Lumbar Radiofrequency Ablation (Left) (08/26/2017), Lumbar/Sacral Dorsal Medial Branch Block (Bilateral) (06/29/2017), Lumbar/Sacral Dorsal Medial Branch Block (Bilateral) (06/15/2017), Lumbar/Sacral Transforaminal Epidural Steroid Injection (Bilateral) (04/22/2017), Lumbar/Sacral Transforaminal Epidural Steroid Injection (Bilateral) (02/18/2017), heart stents-x5, left carpal tunnel surgery, left hip replacement, left knee replacement, pacemaker, right hip replacement, right knee replacement.Medications Home aspirin 81 mg oral tablet, 81 mg, 1 tabs, Oral, Daily atorvastatin 40 mg oral tablet, 40 mg, 1 tabs, Oral, Daily carvedilol 25 mg oral tablet, 25 mg, 1 tabs, Oral, BID DULoxetine 30 mg oral delayed release capsule, 30 mg, 1 caps, Oral, Daily hydrALAZINE 50 mg oral tablet, 50 mg, 1 tabs, Oral, BID losartan 100 mg oral tablet, 100 mg, 1 tabs, Oral, Daily Metanx, 12.5 mg, Oral, BID warfarin 4 mg oral tablet, See Instructions Inpatient Sodium Chloride 0.9% 500 mL, 500 mL, IV Prescriptions No active PrescriptionsAllergies No Known AllergiesSocial History Alcohol Never Substance Abuse Denies All Tobacco Former smokerLab Results No qualifying data available.Diagnostic Results No qualifying data available. No qualifying data available. No qualifying data available. No qualifying data available. No qualifying data available.Electronically signed by Johnathan Guzman MD 09/09/17 11:17 EDT Normal [facility] Comment on above: Order Comment: This dictation belongs to a different patient History and Physical History of Present Illness The patient has a longstanding history of severe chronic axial lumbar pain that has been recalcitrant to conservative treatments and presents today for a thermal lumbar RFA procedure given the excellent response to diagnostic medial branch blocks at those levels REVIEW OF SYSTEMS Review of Psychiatric, Neurological, Musculoskeletal, Cardiovascular, Endocrine, Gastrointestinal, Pulmonary, and Hematologic Systems was conducted. The review was found to be noncontributory and unchanged from previous clinic visit. PHYSICAL EXAM - Limited Patient is Constitutionally normal and displays a normal mood and affect per situation. Alert and Oriented x 4, Attentive and appropriate, Answers questions appropriately Vital Signs are Stable Heart - Normal Rate and Rhythm consistent with the patient?s history Lungs - No significant wheezing, Clear Bilaterally Focused examination findings pertaining to the lumbar include increased pain with lumbar facet loading maneuvers course prior to the targeted levels today and no sensory or motor or DTR deficits in lower extremities focal nature. No evidence of neurotension referable to the lumbar spine. ASSESSMENT / PLAN Diagnosis - Severe Chronic lumbago as a result of the above Risks/Benefits/Expected Outcomes of the planned procedure were discussed with the patient and the patient is in agreement that the potential benefits outweigh the risks of the procedure. The patient does appear to be in acceptable health today to undergo the procedure.The procedure is medically necessary noting the patient?s poor response to prior conservative therapies which include activity modification, physical therapy course, medication management including not only anti-inflammatories but also adjuvant medications. conservative therapies. For these reasons we will proceed as planned with the thermal RFA lesioning of the targeted medial branches in the lumbar spinePhysical Exam Vitals & Measurements T: 36.5 ?C (Oral) RR: 16 BP: 97/58 SpO2: 94% WT: 97.5 kg Additional Vitals Peripheral Pulse Rate: 70 bpmProblem List/Past Medical History Ongoing Acid reflux Angina Carpal tunnel Congestive heart failure Home CPAP unit Hypertension Low back pain Sleep apnea Snoring Historical No qualifying dataProcedure/Surgical History Lumbar Radiofrequency Ablation (Right) (09/09/2017), Lumbar Radiofrequency Ablation (Left) (08/26/2017), Lumbar/Sacral Dorsal Medial Branch Block (Bilateral) (06/29/2017), Lumbar/Sacral Dorsal Medial Branch Block (Bilateral) (06/15/2017), Lumbar/Sacral Transforaminal Epidural Steroid Injection (Bilateral) (04/22/2017), Lumbar/Sacral Transforaminal Epidural Steroid Injection (Bilateral) (02/18/2017), heart stents-x5, left carpal tunnel surgery, left hip replacement, left knee replacement, pacemaker, right hip replacement, right knee replacement.Medications Home aspirin 81 mg oral tablet, 81 mg, 1 tabs, Oral, Daily atorvastatin 40 mg oral tablet, 40 mg, 1 tabs, Oral, Daily carvedilol 25 mg oral tablet, 25 mg, 1 tabs, Oral, BID DULoxetine 30 mg oral delayed release capsule, 30 mg, 1 caps, Oral, Daily hydrALAZINE 50 mg oral tablet, 50 mg, 1 tabs, Oral, BID losartan 100 mg oral tablet, 100 mg, 1 tabs, Oral, Daily Metanx, 12.5 mg, Oral, BID warfarin 4 mg oral tablet, See Instructions Inpatient Sodium Chloride 0.9% 500 mL, 500 mL, IV Prescriptions No active PrescriptionsAllergies No Known AllergiesSocial History Alcohol Never Substance Abuse Denies All Tobacco Former smokerLab Results No qualifying data available.Diagnostic Results No qualifying data available. No qualifying data available. No qualifying data available. No qualifying data available. No qualifying data available.Electronically signed by B Johnathan smallwood MD 09/09/17 11:20 EDT Normal [facility] Procedure Noteon 09-09-2017 Procedure Note PROCEDURE: Radiofreq uency ablation of the right L3, L4 and L5 lumbar dorsal medial rami under fluoroscopic guidance. Physician: Obie Silvestre M.D. 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 Lesioning was created using radiofrequency at 80 degrees Centigrade for 90 seconds. Four lesions were created at each level. COMPLICATIONS: None. ANESTHESIA: Monitored Anesthesia Care per Anesthesia--MAC anesthesia was provided during the procedure and was necessary due to the comorbidities listed on the patient's chart. IV FLUIDS: Per anesthesia. SOLUTION Marcaine 0.25% 3ml with depomedrol 40mg PROCEDURE DESCRIPTION: After informed consent, the patient was brought to the OR and placed in the prone position. The skin overlying the area was prepped and draped in standard sterile fashion. A 25-gauge needle was used to raise a skin wheal with 2% lidocaine over the right L3 DMR, which was identified under fluoroscopy. Subsequently, a radiofrequency needle with a 10 mm active tip was inserted through the anesthetized area and directed toward the L3 DMR under fluoroscopic guidance. After encountering the same, we had positive sensory stimulation at 0.5 mA and negative motor stimulation at 2.5 mA. Thus, two lesions were created at this level. This was repeated in a similar fashion on the Right L4 and right L5 levels. Post lesioning we instilled 1 mL from the above corticosteroid solution per level. The needles were then removed. The patient was turned supine onto the gurney and transferred to the recovery area in stable condition, to be discharged home after meeting criteria and follow up as per treatment plan.Electronically signed by B Johnathan smallwood MD 09/09/17 11:21 EDT Normal [facility] History and Physicalon 08-26 History and Physical History of Present Illness The patient has a longstanding history of severe chronic axial lumbar pain that has been recalcitrant to conservative treatments and presents today for a thermal lumbar RFA procedure given the excellent response to diagnostic medial branch blocks at those levels REVIEW OF SYSTEMS Review of Psychiatric, Neurological, Musculoskeletal, Cardiovascular, Endocrine, Gastrointestinal, Pulmonary, and Hematologic Systems was conducted. The review was found to be noncontributory and unchanged from previous clinic visit. PHYSICAL EXAM - Limited Patient is Constitutionally normal and displays a normal mood and affect per situation. Alert and Oriented x 4, Attentive and appropriate, Answers questions appropriately Vital Signs are Stable Heart - Normal Rate and Rhythm consistent with the patient?s history Lungs - No significant wheezing, Clear Bilaterally Focused examination findings pertaining to the lumbar include increased pain with lumbar facet loading maneuvers course prior to the targeted levels today and no sensory or motor or DTR deficits in lower extremities focal nature. No evidence of neurotension referable to the lumbar spine. ASSESSMENT / PLAN Diagnosis - Severe Chronic lumbago as a result of the above Risks/Benefits/Expected Outcomes of the planned procedure were discussed with the patient and the patient is in agreement that the potential benefits outweigh the risks of the procedure. The patient does appear to be in acceptable health today to undergo the procedure.The procedure is medically necessary noting the patient?s poor response to prior conservative therapies which include activity modification, physical therapy course, medication management including not only anti-inflammatories but also adjuvant medications. conservative therapies. For these reasons we will proceed as planned with the thermal RFA lesioning of the targeted medial branches in the lumbar spinePhysical Exam Vitals & Measurements T: 36.4 ?C (Oral) RR: 16 BP: 129/71 SpO2: 96% WT: 97.5 kg Additional Vitals Peripheral Pulse Rate: 76 bpmProblem List/Past Medical History Ongoing Acid reflux Angina Carpal tunnel Congestive heart failure Home CPAP unit Hypertension Low back pain Sleep apnea Snoring Historical No qualifying dataProcedure/Surgical History Lumbar/Sacral Dorsal Medial Branch Block (Bilateral) (06/29/2017), Lumbar/Sacral Dorsal Medial Branch Block (Bilateral) (06/15/2017), Lumbar/Sacral Transforaminal Epidural Steroid Injection (Bilateral) (04/22/2017), Lumbar/Sacral Transforaminal Epidural Steroid Injection (Bilateral) (02/18/2017), heart stents-x5, left carpal tunnel surgery, left hip replacement, left knee replacement, pacemaker, right hip replacement, right knee replacement.Medications Home aspirin 81 mg oral tablet, 81 mg, 1 tabs, Oral, Daily atorvastatin 40 mg oral tablet, 40 mg, 1 tabs, Oral, Daily carvedilol 25 mg oral tablet, 25 mg, 1 tabs, Oral, BID DULoxetine 30 mg oral delayed release capsule, 30 mg, 1 caps, Oral, Daily hydrALAZINE 50 mg oral tablet, 50 mg, 1 tabs, Oral, BID losartan 100 mg oral tablet, 100 mg, 1 tabs, Oral, Daily Metanx, 12.5 mg, Oral, BID warfarin 4 mg oral tablet, See Instructions Inpatient Sodium Chloride 0.9% 500 mL, 500 mL, IV Prescriptions No active PrescriptionsAllergies No Known AllergiesSocial History Alcohol Never Substance Abuse Denies All Tobacco Former smokerLab Results No qualifying data available.Diagnostic Results No qualifying data available. No qualifying data available. No qualifying data available. No qualifying data available. No qualifying data available.Electronically signed by B cl CAMACHO, Johnathan 08/26/17 14:38 EDT Normal [facility] History and Physical History of Present Illness The patient has a longstanding history of severe chronic axial lumbar pain that has been recalcitrant to conservative treatments and presents today for a thermal lumbar RFA procedure given the excellent response to diagnostic medial branch blocks at those levels REVIEW OF SYSTEMS Review of Psychiatric, Neurological, Musculoskeletal, Cardiovascular, Endocrine, Gastrointestinal, Pulmonary, and Hematologic Systems was conducted. The review was found to be noncontributory and unchanged from previous clinic visit. PHYSICAL EXAM - Limited Patient is Constitutionally normal and displays a normal mood and affect per situation. Alert and Oriented x 4, Attentive and appropriate, Answers questions appropriately Vital Signs are Stable Heart - Normal Rate and Rhythm consistent with the patient?s history Lungs - No significant wheezing, Clear Bilaterally Focused examination findings pertaining to the lumbar include increased pain with lumbar facet loading maneuvers course prior to the targeted levels today and no sensory or motor or DTR deficits in lower extremities focal nature. No evidence of neurotension referable to the lumbar spine. ASSESSMENT / PLAN Diagnosis - Severe Chronic lumbago as a result of the above Risks/Benefits/Expected Outcomes of the planned procedure were discussed with the patient and the patient is in agreement that the potential benefits outweigh the risks of the procedure. The patient does appear to be in acceptable health today to undergo the procedure.The procedure is medically necessary noting the patient?s poor response to prior conservative therapies which include activity modification, physical therapy course, medication management including not only anti-inflammatories but also adjuvant medications. conservative therapies. For these reasons we will proceed as planned with the thermal RFA lesioning of the targeted medial branches in the lumbar spinePhysical Exam Vitals & Measurements T: 36.4 ?C (Oral) RR: 16 BP: 114/73 SpO2: 96% WT: 97.5 kg Additional Vitals Peripheral Pulse Rate: 70 bpmProblem List/Past Medical History Ongoing Acid reflux Angina Carpal tunnel Congestive heart failure Home CPAP unit Hypertension Low back pain Sleep apnea Snoring Historical No qualifying dataProcedure/Surgical History Lumbar Radiofrequency Ablation (Left) (08/26/2017), Lumbar/Sacral Dorsal Medial Branch Block (Bilateral) (06/29/2017), Lumbar/Sacral Dorsal Medial Branch Block (Bilateral) (06/15/2017), Lumbar/Sacral Transforaminal Epidural Steroid Injection (Bilateral) (04/22/2017), Lumbar/Sacral Transforaminal Epidural Steroid Injection (Bilateral) (02/18/2017), heart stents-x5, left carpal tunnel surgery, left hip replacement, left knee replacement, pacemaker, right hip replacement, right knee replacement.Medications Home aspirin 81 mg oral tablet, 81 mg, 1 tabs, Oral, Daily atorvastatin 40 mg oral tablet, 40 mg, 1 tabs, Oral, Daily carvedilol 25 mg oral tablet, 25 mg, 1 tabs, Oral, BID DULoxetine 30 mg oral delayed release capsule, 30 mg, 1 caps, Oral, Daily hydrALAZINE 50 mg oral tablet, 50 mg, 1 tabs, Oral, BID losartan 100 mg oral tablet, 100 mg, 1 tabs, Oral, Daily Metanx, 12.5 mg, Oral, BID warfarin 4 mg oral tablet, See Instructions Inpatient Sodium Chloride 0.9% 500 mL, 500 mL, IV Prescriptions No active PrescriptionsAllergies No Known AllergiesSocial History Alcohol Never Substance Abuse Denies All Tobacco Former smokerLab Results No qualifying data available.Diagnostic Results No qualifying data available. No qualifying data available. No qualifying data available. No qualifying data available. No qualifying data available.Electronically signed by Betsey smallwood MD, Johnathan 08/26/17 15:42 EDT Normal [facility] Procedure Noteon 08-26-2017 Procedure Note PROCEDURE: Radiofreq uency ablation of the left L3, L4 and L5 lumbar dorsal medial rami under fluoroscopic guidance. Physician: Obie Silvestre M.D. 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 Lesioning was created using radiofrequency at 80 degrees Centigrade for 90 seconds. 2 lesions were created at each level. COMPLICATIONS: None. ANESTHESIA: Monitored Anesthesia Care per Anesthesia--MAC anesthesia was provided during the procedure and was necessary due to the comorbidities listed on the patient's chart. IV FLUIDS: Per anesthesia. SOLUTION Marcaine 0.25% 3ml with depomedrol 40mg PROCEDURE DESCRIPTION: After informed consent, the patient was brought to the OR and placed in the prone position. The skin overlying the area was prepped and draped in standard sterile fashion. A 25-gauge needle was used to raise a skin wheal with 2% lidocaine over the left L3 DMR, which was identified under fluoroscopy. Subsequently, a radiofrequency needle with a 10 mm active tip was inserted through the anesthetized area and directed toward the left L3 DMR under fluoroscopic guidance. After encountering the same, we had positive sensory stimulation at 0.5 mA and negative motor stimulation at 2.5 mA. Thus, two lesions were created at this level. This was repeated in a similar fashion on the Left L4 and left L5 levels. Post lesioning we instilled 1 mL from the above corticosteroid solution per level. The needles were then removed. The patient was turned supine onto the gurney and transferred to the recovery area in stable condition, to be discharged home after meeting criteria and follow up as per treatment plan.Electronically signed by B cl CAMACHO, Johnathan 08/26/17 15:42 EDT Normal [facility] Ambulatory Patient Education on 07-29-2017 Ambulatory Patient Education Patient Education MaterialsName: Alvin Boyd Rolando Current Date: 07/29/2017 14:05:41 [place] 1935 following sheet(s) are the Patient Education Leaflets for Alvin Boydaticaleb Name:You are scheduled for a:*Please allow up to 2 hours for your appointment. Late arrivals may result in delay or postponement of procedure.Date/Time of procedure: Please arrive at: Date/Time of procedure: Please arrive at: Please check in at:[facility] [employer] [facility] Desk in the Pain Management [id number] [place] [address], 3rd floor [facility] inside the Emergency Room at [address]*Due to the sedation given for the procedure, you will not be permitted to drive until the following day. For this reason, you will need to bring a armor reconnaissance vehicle driver to stay with you and drive you home following the procedure.*Do not eat or drink anything after midnight the night prior to the procedure. This includes gum, hard candy, and chewing tobacco. The only exception to this is heart, blood pressure, asthma, thyroid, or seizure medications. Those may be taken with a sip of water the morning of the procedure. To ensure your safety while using sedation, your procedure will be rescheduled if you eat or drink.*To decrease the risk of infection, please shower/bathe prior to your procedure. If you are having a stimulator or pump procedure, you will need to use Hibiclens (a medicated soap) prior to your surgery.*[place] teeth, rinse with water, but do not swallow.*Please wear comfortable clothing, without metal zippers or snaps. Do not wear contact lenses. Do wear your hearing aid. Please leave all jewelry and valuables at home; you may wear your wedding ring.*Please note that due to limited space, your family member/armor reconnaissance vehicle driver will need to wait in the waiting area while you are in the procedure area. Absolutely no children should attend an appointment for an injection.*All prescription refills must be requested in advance. No prescription refills requested on the day of a procedure will be available until at least 3 business days later.*If your procedure is done in [place], you will be receiving a statement from [facility] for the professional (physician's) billing fees and for the technical (hospital's) fees and a separate statement for the anesthesia provider. If your procedure is done in [place], you will be receiving a statement from [facility] for professional (physician's) billing fees, technical (hospital's) fees, as well as charges for the anesthesia provider.WHAT TO EXPECT THE DAY OF THE PROCEDURE:*You will be brought to the pre-op area where your medical history and medications will be reviewed. If you are scheduled to have sedation, the nurse will start your IV that will be used for administration of the sedation.*You will then be transported to the OR on a stretcher where the nurses will help position you for the injection.*The anesthesia provider will inject medicine into your IV that will make you sleepy. Your doctor will then perform the procedure under live x-ray. A small amount of dye might also be used to confirm placement of the needle for the injection.*After the injection, you will be transferred on a stretcher to the recovery area. A nurse will check your vital signs and have you rate your pain as you wake up. This usually takes approximately 10 minutes. If you are having a stimulator or pump procedure, please allow additional time. After the procedure, your family will be notified and you will be taken out to your car in a wheelchair.Should you have any questions or concerns, please contact the appropriate office:[facility] ([place] office) [phone] ([place] office) [phone] follow up appointment is scheduled for:AT:[facility] [address], 3rd floor [facility], [facility] [address] [facility], [place], [address], [facility] [address], 2nd floor clinic, [place] [id number] [facility]?WHAT TO EXPECT AFTER THE PROCEDURE:Please note the procedure that is marked is the only information that pertains to you.You will receive a medication called [Diprivan(Propofol)/Versed (Midazolam)] to aid you to sleep. This medication has the ability to cause impairment to your memory, coordination, and judgment. It is also possible that you might feel dizzy and drowsy throughout the day. It is important for you to be aware of this and to take extra precautionary measures throughout the day.You will not receive anesthesia Diag nostic Facet Injections or Dorsal Medial Branch Block Injections/Genicular Nerve Blocks/Sacroiliac Joint InjectionsMonitor pain relief for 2 hours after the injections and keep pain diary if possible.Perform activities that typically cause pain and increase pain. (for example, bending, twisting, walking, telemedicine physician).Try to avoid pain medication or sleeping during the first 2 hours after the injection.Two hours is the expected duration of relief from this injection.Epidural Injections (Cervical, Thoracic, Lumbar, Caudal)Remove the band-aid 24 hours after the injection.May take approximately 3-5 days to receive the full benefits of the injection.Nerve Root Injections or Sciatic Nerve Block InjectionsIf lumbar (low back) injection, you may have a weak leg for a couple hours after.May take approximately 3-5 days to receive the full benefits of the injection.Radio Frequency Ablation (Cervical, Thoracic, Lumbar)Ice area for 24 hrs after procedure (on 15 minutes and off 60 minutes). Stop icing if irritation or increased pain occurs.May take approximately 3-4 weeks to receive full benefits of the procedure.May cause increased pain the first 3-5 days after procedure. Continue taking pain medication as prescribed. Call Pain Management if pain becomes intolerable.Stellate GanglionOnly clear liquids for the first 2 hours after injection.May take approximately 1 day to receive full benefit of the injection.Sacroiliac Joint/Hip Injection/Ganglion Impar Block/Shoulder InjectionMay take approximately 3-5 days to receive the full benefit of the injection.Axillary Injection/Interscalene Injection/Popliteal Nerve Block InjectionMay have significant weakness for 12-18 hours after injection.Spinal Cord Stimulator TrialNo showers or baths (only sponge bath) until stimulator lead is removed.No bending, twisting, lifting or reaching arms above head until trial is removed.No driving with device in on position.No sliding on or rubbing surgical site against surfaces.Wear loose fitting clothing.Monitor temperature and procedure site specifically for redness, yellow/green drainage and call the office immediately if noted.Contact stimulator textiles sales representative with questions regarding stimulator use.(see rep card)Spinal Cord Stimulator ImplantNo showers (only sponge bath) for 7 days after procedure. Do not immerse in water for 3 weeks after surgery.If absorbable sutures are used, remove dressing at 48 hrs and may take shower then. No immersion in water for 3 weeks after surgery.No bending, twisting or lifting for 6-8 weeks or as directed per your doctor.No driving with device in ?on? position.Monitor temperature and procedure site specifically for redness, yellow/green drainage and call office immediately if noted.Contact stimulator textiles sales representative with questions regarding stimulator use.(see rep card)Spinal Cord Stimulator Implant- *Dr Swenson only*Take bandage off 48 hrs after surgery then can shower when bandage off. Only sponge bath until bandage is taken off.No submerging in water for 7 days after surgery.No bending, twisting or lifting for 6-8 weeks or as directed per your doctor.No driving with device in ?on? position.Monitor temperature and procedure site specifically for redness, yellow/green drainage and call immediately if noted.Contact stimulator textiles sales representative with questions regarding stimulator use.(see rep card)Radiofrequency Ablation TreatmentRadiofrequency Ablation Treatment is a procedure using a specialized machine to interrupt nerve conduction on a semi-permanent basis. The nerves are usually blocked for a period as short as 3 months, or as long as 18 months.Am I a candidate for Radiofrequency Ablation Treatment?Currently, Radiofrequency Ablations Treatment is offered to patients with:1. Headache, especially pain arising from the back of the head (?cervicogenic headache?)2. Neck pain, following injury and automobile accidents3. Back pain, following injury and automobile accidents4. Mechanical neck or low back pain due to facet joint disease5. Occipital neuralgiaYou must have responded well to diagnostic blocks to be a candidate for Radiofrequency Ablation Treatment.What are the benefits of Radiofrequency Ablation Treatment?The procedure disrupts nerve conduction (such as conduction of pain signals), and it may in turn reduce pain and other related symptoms. Approximately 70-80% of patients will get good block of the intended nerve. This should help relieve that part of the pain that the blocked nerve controls. Sometimes after a nerve is blocked, it becomes clear that there is pain from the other areas as well.How is the procedure performed?The procedure is done as an outpatient in our surgical suite under flouroscopy (X-ray guidance). Depending upon the areas to be treated, the procedure takes about 20 minutes. Since the nerves cannot be seen on x-ray, the needles are positioned using bony landmarks that indicate where the nerves usually are. Fluoroscopy is used to identify those bony landmarks. The skin on the back is cleaned with antiseptic solution. A local anesthetic (numbing medication) is injected to numb the skin. A special cannula is advanced under x-ray to the area of the nerve. When the needle is in good position, as confirmed by x-ray, electrical stimulation is done before any treatment. This stimulation may produce a buzzing or tingling sensation or may be like hitting your ?funny bone?. You may also feel your muscles jump. You need to be awake during this part of the procedure so you can report what you are feeling. The tissues surrounding the needle tip are then heated when current is passed using the Radiofrequency machine. This ?numbs? the nerves semi-permanently.I am afraid of needles. Will I have a lot of pain?Nerves are protected by layers of muscle and soft tissues. The procedure involves inserting a needle through the skin and those layers of muscle and soft tissues, so there is some discomfort involved. However, we numb the skin and deeper tissues with a local anesthetic using a very thin needle prior to inserting the radiofrequency needle. You will also be given sedation intravenously to make you as comfortable as possible.Can I be sedated for the procedure?Yes. You will be awake, but as explained above, we will need to interact with you so that you are able to report what you are feeling. It is likely that you will have no memory of the actual procedure due to the sedation. You are required to have a armor reconnaissance vehicle driver remain in the facility before and during the procedure, then drive you home following the procedure.What should I expect after the procedure?You are required to have a armor reconnaissance vehicle driver remain in the waiting room of [facility] during the procedure and drive you home after the procedure. We advise the patients to take it easy for a day or so after the procedure. You may want to apply ice to the affected area. Perform the activities as tolerated. Initially, there will be muscle soreness for up to a week afterward. Ice packs will usually control this discomfort. After the first week, your pain may be gone or markedly reduced. If successful, the effects of the procedure can last from 3-18 months, usually 6-9 months. It is very difficult to predict if the procedure will indeed help you or not. Generally speaking, the patients who have previously responded to repeated facet blocks with local anesthetic will have better results.Can I go to work the next day?If you are working prior to the procedure, you should be able to go back to work the day after the procedure. If you are not working prior to the procedure, because of the pain and other problems, you should discuss this with your provider for further instructions.What are the risks and side effects?Generally speaking, this procedure is safe. However, with any procedure, there are risks, side effects, and the possibility of complications. The risks and complications are dependent upon the sites that are lesioned. Any time there is an injection through the skin, there is a risk of infection. This is why sterile conditions are used for these blocks. Please notify your provider if you have any implanted electronic devices (defibrillator, pacemaker, etc.), as extra precautions will be taken to ensure your safety with these devices. The needles go through skin and soft tissues, which will cause soreness. The nerves to be lesioned may be near blood vessels or other nerves, which can be potentially damaged. Great care is taken when placing the radiofrequency needles. Please discuss your specific concerns with your provider;How should I prepare for the procedure?Unless otherwise instructed, you should not eat or drink anything after midnight the night before the procedure. You should stop taking any blood thinners like Coumadin at least five days before the procedure. You can take all of your other medications except oral diabetic meds with a sip of water the morning of the procedure.Diabetics, please discuss with your physician regarding your other diabetic medications. Normal [facility] Pain Management Office/Clini c Noteon 07-29-2017 Pain Management Office/Clinic Note Chief Complaint low back pain bilateral posterior leg painHistory of Present Illness Day Progresses Behavior: Same PM Pain location and laterality: low back pain and bilateral posterior leg pain PM Pain quality: Aching, Unable to describe PM Pain Pattern: Intermittent PM Pain Rate at Rest: 2 PM Pain Rate with Activity: 7 Assistive Devices: No effect Bending: No effect Cold/Ice: No effect Deep Breathing: No effect Emotions: No effect Exercise: No effect Heat: No effect Immobilization: No effect PM Lifting: No effect Lying: No effect Massage: No effect Medications: No effect Performance of ADL's: No effect Pushing/Pulling: No effect Sitting: No effect Stairs: No effect Standing: No effect Transitioning: No effect Walking: No effect PM Sensory: numbness and tingling right arm PM Pain Status: Unchanged PM Last Procedure 1: bilateral DMR L3L4L5 PM Procedure Date 1: 06/15/17 PM Pain Level Descr 1: 85% relief x 2 weeks PM Function Descr 1: able to function better without pain x 2 weeks PM Last Procedure 2: Yes PM Last Procedure 2 Description: Bilateral DMR L3L4L5 PM Procedure Date 2: 06/29/17 PM Pain Level Descr 2: 85% relief x 2 weeks PM Function Descr 2: able to function better without pain x 2 weeks Date Chiropractor: 11/2016 Date PT: 01/16 Frequency PT: [id number] Effective PT: not much help Comments TENS: NO Comments Chiropractor: 2 TX'S-DR BOWMAN-NO HELP Comments PT: back PM testing appt: No PM Bowel Bladder: Denies PM Demeanor: Pleasant PM Distress: Mild PM Appearance: Appropriate PM Cognitive: No PM Safe: Yes PM Hurting: No Family Hx: N/A Personal Hx: N/A Sexual Abuse Hx: No Mental Health.1: N/A Mental Health.2: N/A Total Score: 0 Since the patient?s last encounter, their physical functioning, family relationships, mood, sleep patterns, and overall functioning have remained stable. Patient has failed physical and medical modalities to help alleviate their pain symptoms. This includes but not limited to home exercise program and activity modification for greater than an 8 week time period, which patient does attempt on a daily basis. He has engaged in a formal course of physical therapy and chiropractic therapy with no reduction in pain symptoms. This patient has tried over the counter medications and prescription medications that includes but not limited to aspirin for greater than a 3 month period of time. NSAID's are contraindicated with the use of Coumadin. On 06/15/17 and 06/29/17 he underwent a series of two diagnostic bilateral L3, L4, L5 dorsal medial rami branch block, of which provided him with 100% reduction in pain temporarily. He presents today to discuss the temporary improvements made from the injection.Review of Systems A review of systems was conducted and noted to be noncontributory to the patients presenting complaint. Full details are available on form [id number] completed by the patient and added to the record on today?s date.Physical Exam Vitals & Measurements RR: 16 BP: 118/67 HT: 176 cm WT: 100 kg DOSE WT: 100 kg BMI: 32.28 Psych-alert and oriented x 4. Attentive and appropriate, constitutionally normal, displays normal mood and affect per situation. There are no obvious deficits in memory, reasoning, or intellect. Skin-no obvious rashes, bruising, erythema noted to the patient's area of pain. Extremities- extremities are warm with minimal edema and palpable pulses. Lumbar- significant tenderness to palpation noted in the lumbar spine and paraspinal musculature. Pain is elicited with extension, and lateral rotation of the lumbar spine. Range of motion is slightly diminished with these motions due to pain. Facet loading maneuvers are positive on the bilaterally and do appear to be concordant with the patient's normal complaints of pain. Coordination remains intact. Gait remains antalgic and aided with a walker. Additional Vitals BP Position/Location: Sitting, Left arm Peripheral Pulse Rate: 74 bpmAssessment/Plan Lumbar spondylosisPhysician Comments The patient has failed physical and medical modalities as listed above. He underwent two successful dorsal medial rami branch blocks. The patient has established candidacy for a left L3, L4, L5 rhizotomy and then a right L3, L4, L5 rhizotomy. Thank you for allowing me to participate in the patient?s care. I look forward to seeing them as a return patient following his injection therapy.Problem List/Past Medical History Ongoing Acid reflux Angina Carpal tunnel Congestive heart failure Home CPAP unit Hypertension Low back pain Sleep apnea Snoring Historical No qualifying dataProcedure/Surgical History Lumbar/Sacral Dorsal Medial Branch Block (Bilateral) (06/29/2017), Lumbar/Sacral Dorsal Medial Branch Block (Bilateral) (06/15/2017), Lumbar/Sacral Transforaminal Epidural Steroid Injection (Bilateral) (04/22/2017), Lumbar/Sacral Transforaminal Epidural Steroid Injection (Bilateral) (02/18/2017), heart stents-x5, left carpal tunnel surgery, left hip replacement, left knee replacement, pacemaker, right hip replacement, right knee replacement.Medications aspirin 81 mg oral tablet, 81 mg, 1 tabs, Oral, Daily atorvastatin 40 mg oral tablet, 40 mg, 1 tabs, Oral, Daily carvedilol 25 mg oral tablet, 25 mg, 1 tabs, Oral, BID DULoxetine 30 mg oral delayed release capsule, 30 mg, 1 caps, Oral, Daily hydrALAZINE 50 mg oral tablet, 50 mg, 1 tabs, Oral, BID losartan 100 mg oral tablet, 100 mg, 1 tabs, Oral, Daily Metanx, 12.5 mg, Oral, BID warfarin 4 mg oral tablet, See InstructionsAllergies No Known AllergiesSocial History Alcohol Never Substance Abuse Denies All Tobacco Former smokerDiagnostic Results No qualifying data available. No qualifying data available. No qualifying data available. No qualifying data available.Electronically signed by Rashard infante CNP Myrna Baez 07/29/17 13:55 EDT Normal [facility] History and Physicalon 06-29 History and Physical History of Present Illness The patient has a longstanding history of severe chronic axial lumbar pain that has been recalcitrant to conservative treatments and presents today for an confirmatory diagnostic medial branch block after excellent response to the initial. REVIEW OF SYSTEMS Review of Psychiatric, Neurological, Musculoskeletal, Cardiovascular, Endocrine, Gastrointestinal, Pulmonary, and Hematologic Systems was conducted. The review was found to be noncontributory and unchanged from previous clinic visit. PHYSICAL EXAM - Limited Patient is Constitutionally normal and displays a normal mood and affect per situation. Alert and Oriented x 4, Attentive and appropriate, Answers questions appropriately Vital Signs are Stable Heart ? Normal Rate and Rhythm consistent with the patient?s history Lungs ? No significant wheezing, Clear Bilaterally Focused examination findings reveals increased pain with facet loading maneuvers in the pertinent lumbar segments without any acute focal deficits of the lower extremities ASSESSMENT / PLAN Diagnosis ? Severe Chronic Pain insistent with lumbar spondylosis Risks/Benefits/Expected Outcomes of the planned procedure were discussed with the patient and the patient is in agreement that the potential benefits outweigh the risks of the procedure. The patient does appear to be in acceptable health today to undergo the procedure. The procedure is medically necessary noting the patient?s poor response to more conservative therapies as well as the fact that she had an excellent response to the initial diagnostic lumbar medial branch block 2 weeks ago. Therefore we will proceed as planned with the diagnostic lumbar medial branch block at the targeted painful levelsPhysical Exam Vitals & Measurements T: 36.5 ?C (Oral) RR: 16 BP: 120/75 SpO2: 98% WT: 97.5 kg Additional Vitals Peripheral Pulse Rate: 73 bpmProblem List/Past Medical History Ongoing Acid reflux Angina Carpal tunnel Congestive heart failure Home CPAP unit Hypertension Low back pain Sleep apnea Snoring Historical No qualifying dataProcedure/Surgical History Lumbar/Sacral Dorsal Medial Branch Block (Bilateral) (06/15/2017), Lumbar/Sacral Transforaminal Epidural Steroid Injection (Bilateral) (04/22/2017), Lumbar/Sacral Transforaminal Epidural Steroid Injection (Bilateral) (02/18/2017), heart stents-x5, left carpal tunnel surgery, left hip replacement, left knee replacement, pacemaker, right hip replacement, right knee replacement.Medications Home aspirin 81 mg oral tablet, 81 mg, 1 tabs, Oral, Daily atorvastatin 40 mg oral tablet, 40 mg, 1 tabs, Oral, Daily carvedilol 25 mg oral tablet, 25 mg, 1 tabs, Oral, BID DULoxetine 30 mg oral delayed release capsule, 30 mg, 1 caps, Oral, Daily hydrALAZINE 50 mg oral tablet, 50 mg, 1 tabs, Oral, BID losartan 100 mg oral tablet, 100 mg, 1 tabs, Oral, Daily Metanx, 12.5 mg, Oral, BID warfarin 4 mg oral tablet, See Instructions Inpatient No active inpatient medications Prescriptions No active PrescriptionsAllergies No Known AllergiesSocial History Alcohol Never Substance Abuse Denies All Tobacco Former smokerLab Results No qualifying data available.Diagnostic Results No qualifying data available. No qualifying data available. No qualifying data available. No qualifying data available. No qualifying data available.Electronically signed by B Johnathan smallwood MD 06/29/17 13:18 EDT Normal [facility] Procedure Noteon 06-29-2017 Procedure Note PROCEDURE: Bilateral L3, L4 and L5 lumbar diagnostic dorsal medial branch blocks. PREOPERATIVE AND POSTOPERATIVE DIAGNOSIS: Pain due to lumbosacral spondylosis. Physician: Obie Silvestre M.D. COMPLICATIONS: None. SOLUTION USED: Marcaine 0.25%; total volume of 5 mL. DESCRIPTION OF PROCEDURE: The patient was placed in prone position. The skin overlying the lumbar area was prepped with alcohol and draped. We employed fluoroscopic guidance and visualized the patient's lumbar spine in a posterior-anterior projection. We then employed a spinal needle which was inserted percutaneously towards the point of passage of the L3, L4 and L5 lumbar dorsal medial rami on the left as well as the L3, L4 and L5 lumbar dorsal medial rami on the right. For each level the needle tip position was confirmed with multi-angled projections and identification of the relative anatomic landmarks. At each level, 0.5 mL of solution was injected and needle was withdrawn. The patient was turned back onto the [facility] and taken to recovery in stable condition to be discharged per criteria.Electronically signed by B Johnathan smallwood MD 06/29/17 14:34 EDT [facility] History and Physicalon 06-15 History and Physical History of Present Illness The patient has a longstanding history of severe chronic axial lumbar pain that has been recalcitrant to conservative treatments and presents today for a diagnostic diagnostic medial branch block targeted towards the painful lumbar region. REVIEW OF SYSTEMS Review of Psychiatric, Neurological, Musculoskeletal, Cardiovascular, Endocrine, Gastrointestinal, Pulmonary, and Hematologic Systems was conducted. The review was found to be noncontributory and unchanged from previous clinic visit. PHYSICAL EXAM - Limited Patient is Constitutionally normal and displays a normal mood and affect per situation. Alert and Oriented x 4, Attentive and appropriate, Answers questions appropriately Vital Signs are Stable Heart - Normal Rate and Rhythm Lungs - No significant wheezing, Clear Bilaterally Focused examination findings pertaining to the lumbar include increased pain with lumbar facet loading maneuvers course prior to the targeted levels today and no sensory or motor or DTR deficits in lower extremities focal nature. No evidence of neurotension referable to the lumbar spine. ASSESSMENT / PLAN Diagnosis - Severe Chronic lumbago as a result of degenerative change of the posterior elements of the lumbar spine producing spondylosis related pain Risks/Benefits/Expected Outcomes of the planned procedure were discussed with the patient and the patient is in agreement that the potential benefits outweigh the risks of the procedure. The patient does appear to be in acceptable health today to undergo the procedure.The procedure is medically necessary noting the patient?s poor response to prior conservative therapies which include activity modification, physical therapy course, medication management including not only anti-inflammatories but also adjuvant medications. conservative therapies. For these reasons we will proceed as planned with the diagnostic blockade of the targeted medial branches in the lumbar spine in order to establish potential eligibility for thermal RFA procedure.Physical Exam Vitals & Measurements T: 36.4 ?C (Oral) RR: 18 BP: 149/89 SpO2: 97% WT: 98 kg Additional Vitals No qualifying data available.Problem List/Past Medical History Ongoing Acid reflux Angina Carpal tunnel Congestive heart failure Home CPAP unit Hypertension Low back pain Sleep apnea Snoring Historical No qualifying dataProcedure/Surgical History Lumbar/Sacral Dorsal Medial Branch Block (Bilateral) (06/15/2017), Lumbar/Sacral Transforaminal Epidural Steroid Injection (Bilateral) (04/22/2017), Lumbar/Sacral Transforaminal Epidural Steroid Injection (Bilateral) (02/18/2017), heart stents-x5, left carpal tunnel surgery, left hip replacement, left knee replacement, pacemaker, right hip replacement, right knee replacement.Medications Home aspirin 81 mg oral tablet, 81 mg, 1 tabs, Oral, Daily atorvastatin 40 mg oral tablet, 40 mg, 1 tabs, Oral, Daily carvedilol 25 mg oral tablet, 25 mg, 1 tabs, Oral, BID DULoxetine 30 mg oral delayed release capsule, 30 mg, 1 caps, Oral, Daily hydrALAZINE 50 mg oral tablet, 50 mg, 1 tabs, Oral, BID losartan 100 mg oral tablet, 100 mg, 1 tabs, Oral, Daily Metanx, 12.5 mg, Oral, BID warfarin 4 mg oral tablet, See Instructions Inpatient No active inpatient medications Prescriptions No active PrescriptionsAllergies No Known AllergiesSocial History Alcohol Never Substance Abuse Denies All Tobacco Former smokerLab Results No qualifying data available.Diagnostic Results No qualifying data available. No qualifying data available. No qualifying data available. No qualifying data available. No qualifying data available.Electronically signed by Johnathan Guzman MD 06/15/17 16:22 EDT Normal [facility] Procedure Noteon 06-15-2017 Procedure Note PROCEDURE: Bilateral L3, L4 and L5 lumbar diagnostic dorsal medial branch blocks. PREOPERATIVE AND POSTOPERATIVE DIAGNOSIS: Pain due to lumbosacral spondylosis. Physician: Obie Silvestre M.D. COMPLICATIONS: None. SOLUTION USED: Marcaine 0.25%; total volume of 5 mL. DESCRIPTION OF PROCEDURE: The patient was placed in prone position. The skin overlying the lumbar area was prepped with alcohol and draped. We employed fluoroscopic guidance and visualized the patient's lumbar spine in a posterior-anterior projection. We then employed a spinal needle which was inserted percutaneously towards the point of passage of the L3, L4 and L5 lumbar dorsal medial rami on the left as well as the L3, L4 and L5 lumbar dorsal medial rami on the right. For each level the needle tip position was confirmed with multi-angled projections and identification of the relative anatomic landmarks. At each level, 0.5 mL of solution was injected and needle was withdrawn. The patient was turned back onto the [facility] and taken to recovery in stable condition to be discharged per criteria.Electronically signed by B Johnathan smallwood MD 06/15/17 16:23 EDT Normal [facility] Ambulatory Patient Education on 05-27-2017 Ambulatory Patient Education Patient Education MaterialsName: Alvin Boyd Rolando Current Date: 05/27/2017 10:03:36 [place] 1935 following sheet(s) are the Patient Education Leaflets for Alvin Boydacet Joint InjectionFacet joints are small joints on either side of each vertebra in the spinal column. They connect each vertebra with the vertebra above and below. These joints help us to bend forward and backward and, to a limited extent, to the side. Facet joint blocks are injections of local anesthetic with or without cortisone into the facet joints.What are the diagnostic blocks of the facet joints?Each facet joint is supplied by two small nerves. In diagnostic blocks for facet joints, local anesthetic is used to numb these tiny nerves to block the pain impulses going to the brain. In addition to this, a small amount of cortisone may also be used which can help to reduce inflammation. These diagnostic blocks help to find out whether the facet joints are the cause of the back pain.How long does the procedure take?Depending upon the number of nerves or joints being blocked, it may take up to 15 minutes.How is the procedure performed?The procedure is done as an outpatient at our surgical suite under fluoroscopy (live X-ray guidance). An IV is started and you will receive sedation through the IV before and during the procedure. A local anesthetic (numbing medication) is injected into the skin and tissues below, prior to the placement of the needle for the facet block.I am afraid of needles. Will I have a lot of pain?Your physician at [facility] will do everything possible to do the procedure with minimal, if any, pain. As explained above, you will be given sedation intravenously and local anesthetic (numbing medication) will be injected at the site of the needle placement.Can I be sedated for the procedure?Yes. You will be awake but usually very comfortable during the procedure. On occasion we will need to interact with you. It is likely that you will have no memory of the actual procedure. You are required to have a armor reconnaissance vehicle driver remain in the facility before and during the procedure, then drive you home following the procedure.What should I expect after the procedure?This procedure is done for diagnostic purposes. If the source of your pain is from these joints, you should have pain relief for a period of two to four hours after the injection. Please record the time period and percent of relief you felt from the injection and bring with you to your post-procedure follow-up. This will help in determining the next step of treatment.What should I do after the procedure?After the procedure, you will be required to have someone drive you home. You should try to reproduce your pain immediately after the injection and record how you feel. The next day you should be able to resume your normal daily activities that you were doing prior to the procedure.Can I go to work the next day?If you are working prior to the procedure, you can go back to work the day after the procedure. If you are not working prior to the procedure, because of the pain and other problems, you should discuss this with your provider for further instructions.How should I prepare for the procedure?Unless otherwise instructed, you should not eat or drink anything after midnight the night before the procedure. You can take all of your other medications except oral diabetic meds with a sip of water the morning of the procedure. Diabetics, please discuss with your physician regarding your other diabetic medications.Patient Name:You are scheduled for a:*Please allow up to 2 hours for your appointment. Late arrivals may result in delay or postponement of procedure.Date/Time of procedure: Please arrive at: Date/Time of procedure: Please arrive at: Please check in at:[employer] Desk in the Pain Management [id number], 3rd floor [facility] [place]Reception Desk inside the Emergency Room at [place] [address], [place]*Due to the sedation given for the procedure, you will not be permitted to drive until the following day. For this reason, you will need to bring a armor reconnaissance vehicle driver to stay with you and drive you home following the procedure.*Do not eat or drink anything after midnight the night prior to the procedure. This includes gum, hard candy, and chewing tobacco. The only exception to this is heart, blood pressure, asthma, thyroid, or seizure medications. Those may be taken with a sip of water the morning of the procedure. To ensure your safety while using sedation, your procedure will be rescheduled if you eat or drink.*To decrease the risk of infection, please shower/bathe prior to your procedure. If you are having a stimulator or pump procedure, you will need to use Hibiclens (a medicated soap) prior to your surgery.*[place] teeth, rinse with water, but do not swallow.*Please wear comfortable clothing, without metal zippers or snaps. Do not wear contact lenses. Do wear your hearing aid. Please leave all jewelry and valuables at home; you may wear your wedding ring.*Please note that due to limited space, your family member/armor reconnaissance vehicle driver will need to wait in the waiting area while you are in the procedure area. Absolutely no children should attend an appointment for an injection.*All prescription refills must be requested in advance. No prescription refills requested on the day of a procedure will be available until at least 3 business days later.*If your procedure is done in [place], you will be receiving a statement from [facility] for the professional (physician's) billing fees and for the technical (hospital's) fees and a separate statement for the anesthesia provider. If your procedure is done in [place], you will be receiving a statement from [facility] for professional (physician's) billing fees, technical (hospital's) fees, as well as charges for the anesthesia provider.WHAT TO EXPECT THE DAY OF THE PROCEDURE:*You will be brought to the pre-op area where your medical history and medications will be reviewed. If you are scheduled to have sedation, the nurse will start your IV that will be used for administration of the sedation.*You will then be transported to the OR on a stretcher where the nurses will help position you for the injection.*The anesthesia provider will inject medicine into your IV that will make you sleepy. Your doctor will then perform the procedure under live x-ray. A small amount of dye might also be used to confirm placement of the needle for the injection.*After the injection, you will be transferred on a stretcher to the recovery area. A nurse will check your vital signs and have you rate your pain as you wake up. This usually takes approximately 10 minutes. If you are having a stimulator or pump procedure, please allow additional time. After the procedure, your family will be notified and you will be taken out to your car in a wheelchair.Should you have any questions or concerns, please contact the appropriate office:[facility] ([place] office) [phone] ([place] office) [phone] follow up appointment is scheduled for:AT:[facility] [address] [facility], 3rd floor [facility], [facility] [address] [facility] [place], [place], [address], [address], 2nd floor clinic, [address]?WHAT TO EXPECT AFTER THE PROCEDURE:Please note the procedure that is marked is the only information that pertains to you.You will receive a medication called [Diprivan(Propofol)/Versed (Midazolam)] to aid you to sleep. This medication has the ability to cause impairment to your memory, coordination, and judgment. It is also possible that you might feel dizzy and drowsy throughout the day. It is important for you to be aware of this and to take extra precautionary measures throughout the day.You will not receive anesthesia Diag nostic Facet Injections or Dorsal Medial Branch Block Injections/Genicular Nerve Blocks/Sacroiliac Joint InjectionsMonitor pain relief for 2 hours after the injections and keep pain diary if possible.Perform activities that typically cause pain and increase pain. (for example, bending, twisting, walking, telemedicine physician).Try to avoid pain medication or sleeping during the first 2 hours after the injection.Two hours is the expected duration of relief from this injection.Epidural Injections (Cervical, Thoracic, Lumbar, Caudal)Remove the band-aid 24 hours after the injection.May take approximately 3-5 days to receive the full benefits of the injection.Nerve Root Injections or Sciatic Nerve Block InjectionsIf lumbar (low back) injection, you may have a weak leg for a couple hours after.May take approximately 3-5 days to receive the full benefits of the injection.Radio Frequency Ablation (Cervical, Thoracic, Lumbar)Ice area for 24 hrs after procedure (on 15 minutes and off 60 minutes). Stop icing if irritation or increased pain occurs.May take approximately 3-4 weeks to receive full benefits of the procedure.May cause increased pain the first 3-5 days after procedure. Continue taking pain medication as prescribed. Call Pain Management if pain becomes intolerable.Stellate GanglionOnly clear liquids for the first 2 hours after injection.May take approximately 1 day to receive full benefit of the injection.Sacroiliac Joint/Hip Injection/Ganglion Impar Block/Shoulder InjectionMay take approximately 3-5 days to receive the full benefit of the injection.Axillary Injection/Interscalene Injection/Popliteal Nerve Block InjectionMay have significant weakness for 12-18 hours after injection.Spinal Cord Stimulator TrialNo showers or baths (only sponge bath) until stimulator lead is removed.No bending, twisting, lifting or reaching arms above head until trial is removed.No driving with device in on position.No sliding on or rubbing surgical site against surfaces.Wear loose fitting clothing.Monitor temperature and procedure site specifically for redness, yellow/green drainage and call the office immediately if noted.Contact stimulator textiles sales representative with questions regarding stimulator use.(see rep card)Spinal Cord Stimulator ImplantNo showers (only sponge bath) for 7 days after procedure. Do not immerse in water for 3 weeks after surgery.If absorbable sutures are used, remove dressing at 48 hrs and may take shower then. No immersion in water for 3 weeks after surgery.No bending, twisting or lifting for 6-8 weeks or as directed per your doctor.No driving with device in ?on? position.Monitor temperature and procedure site specifically for redness, yellow/green drainage and call office immediately if noted.Contact stimulator textiles sales representative with questions regarding stimulator use.(see rep card)Spinal Cord Stimulator Implant- *Dr Swenson only*Take bandage off 48 hrs after surgery then can shower when bandage off. Only sponge bath until bandage is taken off.No submerging in water for 7 days after surgery.No bending, twisting or lifting for 6-8 weeks or as directed per your doctor.No driving with device in ?on? position.Monitor temperature and procedure site specifically for redness, yellow/green drainage and call immediately if noted.Contact stimulator textiles sales representative with questions regarding stimulator use.(see rep card) Normal [facility] Pain Management Office/Clini c Noteon 05-27-2017 Pain Management Office/Clinic Note Chief Complaint LOW BACK PAIN AND BILATERAL LEG PAINHistory of Present Illness AM Behavior: Same Day Progresses Behavior: Same PM Behavior: Same PM Pain location and laterality: LOW BACK PAIN BILATERAL LEG PAIN PM Pain quality: Aching PM Pain Pattern: Intermittent PM Pain Rate at Rest: 3 PM Pain Rate with Activity: 8 Bending: Aggravating Exercise: Aggravating PM Lifting: Aggravating Performance of ADL's: Aggravating Stairs: Aggravating Standing: Aggravating Walking: Aggravating PM Sensory: NUBMNESS IN RIGHT ARM UNRELATED- PM Pain Status: Unchanged PM Last Procedure 1: BILATERAL TF BRIAN L4 PM Procedure Date 1: 04/22/17 PM Pain Level Descr 1: 30% RELIEF X 1-2 WEEKS PM Function Descr 1: ABLE TO SIT MORE COMFORTABLE X 1-2 WEEKS PM Last Procedure 2: Yes PM Last Procedure 2 Description: BILATERAL TF BRIAN PM Procedure Date 2: 02/18/17 PM Pain Level Descr 2: 60% RELIEF X 2 WEEKS PM Function Descr 2: ABLE TO SIT MORE COMFORTABLE Date Chiropractor: 11/2016 Date PT: 01/16 Frequency PT: [id number] Effective PT: not much help Comments TENS: NO Comments Chiropractor: 2 TX'S-DR BOWMAN-NO HELP Comments PT: back PM testing appt: No PM Bowel Bladder: Denies PM Demeanor: Pleasant PM Distress: None PM Appearance: Appropriate PM Cognitive: No PM Safe: Yes PM Hurting: No On 02/18/17 and 04/22/17 he underwent bilateral L4 transforaminal epidural steroid injection, of which provided significant temporary relief. He present today to discuss his low back pain. The patient has engaged in a 6 week course of dedicated physiologic therapeutics within the last 3 months. A 6 week trial of activity modification including transition maneuver avoidance as well as strict upper extremity lift and movement limits has failed to provide reprieve. The patient has failed to respond to a 3 month trial of oral analgesic therapy including nonsteroidal anti-inflammatory agents and muscle relaxant modalities.Review of Systems A review of systems was conducted and noted to be noncontributory to the patients presenting complaint. Full details are available on form [id number] completed by the patient and added to the record on today?s date.Physical Exam Vitals & Measurements RR: 16 BP: 110/61 HT: 172 cm WT: 100 kg DOSE WT: 100 kg BMI: 33.8 Psych-alert and oriented x 4. Attentive and appropriate, constitutionally normal, displays normal mood and affect per situation. There are no obvious deficits in memory, reasoning, or intellect. Skin-no obvious rashes, bruising, erythema noted to the patient's area of pain. Extremities- extremities are warm with minimal edema and palpable pulses. Lumbar-tenderness to palpation noted in the lumbar spine and paraspinal musculature. Pain is elicited with extension, and lateral rotation of the lumbar spine. Range of motion is slightly diminished with these motions due to pain. Facet loading maneuvers are positive on the bilaterally and do appear to be concordant with the patient's normal complaints of pain. Coordination remains intact. Gait remains antalgic and is aided with a cane. Additional Vitals BP Position/Location: Sitting, Left arm Peripheral Pulse Rate: 68 bpmAssessment/Plan Lumbosacral spondylosis The patient has failed physical and medical modalities as listed above. The patient has established candidacy for diagnostic bilateral L3, L4, L5 dorsal medial branch x2. Thank you for allowing me to participate in the patient?s care. I look forward to seeing them as a return patient following injection therapy.Physician Comments This document serves as a record of the services and decisions personally performed and made by the attending provider. It was created on his/her behalf by a trained diploma medical assistant. The creation of this document is based on the provider?s statements to the diploma medical assistant.Problem List/Past Medical History Ongoing Acid reflux Angina Carpal tunnel Congestive heart failure Home CPAP unit Hypertension Low back pain Sleep apnea Snoring Historical No qualifying dataProcedure/Surgical History Lumbar/Sacral Transforaminal Epidural Steroid Injection (Bilateral) (04/22/2017), Lumbar/Sacral Transforaminal Epidural Steroid Injection (Bilateral) (02/18/2017), heart stents-x5, left carpal tunnel surgery, left hip replacement, left knee replacement, pacemaker, right hip replacement, right knee replacement.Medications aspirin 81 mg oral tablet, 81 mg, 1 tabs, Oral, Daily atorvastatin 40 mg oral tablet, 40 mg, 1 tabs, Oral, Daily carvedilol 25 mg oral tablet, 25 mg, 1 tabs, Oral, BID DULoxetine 30 mg oral delayed release capsule, 30 mg, 1 caps, Oral, Daily hydrALAZINE 50 mg oral tablet, 50 mg, 1 tabs, Oral, BID losartan 100 mg oral tablet, 100 mg, 1 tabs, Oral, Daily Metanx, 12.5 mg, Oral, BID warfarin 4 mg oral tablet, See InstructionsAllergies No Known AllergiesSocial History Alcohol Never Substance Abuse Denies All Tobacco Former smokerDiagnostic Results No qualifying data available. No qualifying data available. No qualifying data available. No qualifying data available.Electronically signed by S Carmenza lynn 05/27/17 10:14 EDTElectronically signed by A Myrna infante CNP 05/27/2017 10:22 EDT Normal [facility] Encounters Encounter Date Encounter Type Care Provider Facility Start: 10-19-2023 End: 10-19-2023 ambulatory [facility] Start: 04-08-2023 End: 04-08-2023 ambulatory [facility] Start: 03-30-2023 End: 04-29-2023 ambulatory SHAIKH Milan URIBE Facility: Start: 03-02-2023 End: 03-27-2023 ambulatory NOGUEIRA H FAWWAD Facility:[facility] Start: 01-28-2023 End: 02-27-2023 ambulatory NOGUEIRA H FAWWAD Facility:[facility] Start: 12-31-2022 End: 01-28-2023 ambulatory NOGUEIRA H FAWWAD Facility:[facility] Start: 12-18-2022 End: 12-18-2022 ambulatory DOMINIQUE CABEZASNG Facility:[facility] Start: 12-01-2022 End: 12-31-2022 ambulatory NOGUEIRA H FAWWAD Facility:[facility] Start: 11-11-2022 End: 11-12-[address] RIO LAL Facility:[facility] Start: 10-30-2022 End: 11-30-2022 ambulatory NOGUEIRA H FAWWAD Facility:[facility] Start: 10-29-2022 End: 10-29-2022 ambulatory DRAGAN SANTOS [facility] Start: 09-30-2022 End: 10-29-2022 ambulatory NOGUEIRA H FAWWAD Facility:[facility] Start: 09-01-2022 End: 09-29-2022 ambulatory NOGUEIRA H FAWWAD Facility:[facility] Start: 07-31-2022 End: 08-30-2022 ambulatory NOGUEIRA H FAWWAD Facility:[facility] Start: 06-30-2022 End: 07-30-2022 ambulatory NOGUEIRA H FAWWAD Facility:[facility] Start: 05-30-2022 End: 06-27-2022 ambulatory NOGUEIRA H FAWWAD Facility:[facility] Start: 06-24-2019 End: 06-25-2019 Patient encounter procedure RIO LAL Facility:[facility] Start: 06-21-2019 End: 06-27-2019 Patient encounter procedure GERBER PETER Facility:[facility] Start: 04-13-2018 End: 04-14-2018 Ambulatory Rio Lal Facility:[facility] Start: 04-06-2018 End: 04-06-2018 Ambulatory RIO LAL Facility:[facility] Start: 03-29-2018 End: 03-30-2018 Ambulatory DRAGAN MORLEY Facility:[facility]urg[facility] Start: 03-16-2018 End: 03-17-2018 Ambulatory MYRNA DENIS AUXIER Facility:[facility] Start: 02-19-2018 End: 02-20-2018 Ambulatory RIO LAL Facility:[facility] Start: 01-13-2018 End: 01-13-2018 Ambulatory JOHNATHAN LAYAOS Facility:[facility] Start: 01-06-2018 End: 01-07-2018 Ambulatory MYRNA CAST Facility:[facility] Start: 11-09-2017 End: 11-09-2017 Ambulatory JOHNATHAN LAYAOS Facility:[facility] Start: 10-14-2017 End: 10-15-2017 Ambulatory MYRNA DENIS CAST Facility:[facility] Start: 09-09-2017 End: 09-09-2017 Ambulatory JOHNATHAN LAYAOS Facility:[facility] Start: 08-26-2017 End: 08-26-2017 Ambulatory JOHNATHAN LAYAOS Facility:[facility] Start: 07-29-2017 End: 07-30-2017 Ambulatory MYRNA CAST Facility:[facility] Start: 06-29-2017 End: 06-29-2017 Ambulatory JOHNATHAN BAKOS Facility:[facility] Start: 06-15-2017 End: 06-15-2017 Ambulatory JOHNATHAN LAYAOS Facility:[facility] Start: 05-27-2017 End: 05-28-2017 Ambulatory MYRNA CAST Facility:[facility] Payers Date Payer Category Payer Medicare 1958 Medicare [id number] 1958 Unknown [id number] 1958 Unknown [id number] 1936 Unknown [id number] 2.16.8 [id number] 1936 Unknown [id number] 2.16.8 [id number] 1936 Unknown [id number] 2.16.84 [id number] 1936 Unknown [id number] 2.16.84 [id number] 1936 Unknown [id number] 2.16.84 [id number] 1936 Unknown [id number] 2.16.84 [id number] 1936 Unknown [id number] 2.16.84 [id number] 1936 Unknown [id number] 2.16.84 [id number] 1936 Unknown [id number] 2.16.84 [id number] 1936 Unknown [id number] 2.16.84 [id number] 1936 Unknown [id number] 2.16.84 [id number] 1936 Unknown [id number] 2.16.84 [id number] 1936 Unknown [id number] 2.16.84 [id number] 1936 Unknown [id number] 2.16.84 [id number] 1936 Unknown [id number] 2.16.84 [id number] Medicare [id number] Clinical Notes 10-29-2022 to 10-19-2023 Note Date & Type Note Facility 10-19-2023 Note Patient here for 6 m o follow up mitral valve disorder, CAD, CHF, and chronic afib. Also had routine device interrogation this morning. Note from home health nurse says his BP has been elevated lately. She said his appetite has been low and he's had explosive diarrhea. Review of Systems Cardiovascular: Positive for dyspnea on exertion, leg swelling and palpitations ( once in awhile ). Musculoskeletal: Positive for arthritis. Gastrointestinal: Positive for diarrhea. [facility] 10-19-2023 Note [place] Electrophysiology Consult Note Reason for visit: 6-month follow-up 10/19/23: patient for 6-month follow-up, has been doing with no complaints of chest pain, shortness of breath, GROSS, LE edema device check 10/19/2023 shows Biv 100%, slow VR AF underlying <30bpm, CHB, normal device function stable thresholds 04/08/23 HPI: Alvin Boyd is a 87 y.o. year old with past medical history of CAD s/p stent 2012, A-fib, aortic valve stenosis, CHF HFimpEF s/p BiV TRANSMISSION INSPECTOR-P EF 55% he is here for 6-month follow-up last device check 10/14/2022 showed normal device function and underlying rhythm A-fib with slow VR feeling well with no complaints of chest pain, shortness of breath, orthopnea, LE edema. He takes Lasix as needed for LE edema. Echo 04/2021 showed mildly elevated RVSP of 35, mildly enlarged ascending aorta 3.56 centimeter He had repeat echocardiogram 09/2021 RVSP 48, moderate pulmonary hypertension/moderate to severe tricuspid regurgitation and normal diameter of aortic root and no significant aortic valve stenosis, aortic root diameter was 3.2 cm He is a previous Dr. Bull patient Per dr. Campbell 03/2021 Alvin is seen in follow up. He is a 85 yo man with prior history of permanent AF, CAD SP stenting last in 2012, s/p pacemaker in the past became dependent on it, developed chronic systolic heart failure and underwent upgrade to a BiV pacer (no ICD) in 2016, recovered EF on follow up. Denied chest pain, denied increased shortness of breath, he is in NYHA II-III, In December 2020 he was started on torsemide by Dr Lal due to increased lower extremity edema and elevated NT-proBNP. His Cr was 1.3. He says the swelling improved. He continues to have shortness of breath on mild exertion. He says this has been going on for a while. This is still present despite diuretic therapy. Recent testing: Echocardiogram 01/16/2021: Global left ventricular systolic function is normal, ejection fraction is 55-60%. No significant wall motion abnormality. Severe biatrial enlargement. Right ventricle is mildly dilated with normal systolic function. Moderate tricuspid regurgitation. Mildly elevated right-sided pressures. Mild mitral regurgitation. Mildly dilated ascending aorta. Blood testing 01/14/2021: Hemoglobin 10.5, platelets 144, cholesterol 95, triglycerides 65, HDL 41, LDL 40, potassium 4.5, BUN 22, creatinine 1.08. BNP 648. PMH: Past Medical History: Diagnosis Date Atrial fibrillation (CMS/HCC) CHF (congestive heart failure) ([facility]) Coronary artery disease Heart valve disease Hyperlipidemia Hypertension PSH: No past surgical history on file. SH: Social Determinants of Health Tobacco Use: Medium Risk (10/29/2022) Patient History Smoking Tobacco Use: Former Smokeless Tobacco Use: Never Passive Exposure: Not on file Alcohol Use: Not on file Financial Resource Strain: Not on file Food Insecurity: Not on file Transportation Needs: Not on file Physical Activity: Not on file Stress: Not on file Social Connections: Not on file Intimate Partner Violence: Not on file Depression: Not on file Housing Stability: Not on file Allergies: No Known Allergies Weight: 103kg Visit Vitals Pulse 60 Ht 1.753 m (5' 9 ) Wt 103 kg (228 lb) SpO2 97% BMI 33.67 kg/m??? Smoking Status Former BSA 2.24 m??? Meds: Current Outpatient Medications on File Prior to Visit Medication Sig Dispense Refill warfarin (Coumadin) 5 mg tablet Take 5 mg by mouth. Take as directed per After Visit Summary. Follow up with [facility] for INR atorvastatin (Lipitor) 40 mg tablet 1 (one) time each day at the same time. carvedilol (Coreg) 12.5 mg tablet Take 1 tablet twice a day by oral route. DULoxetine (Cymbalta) [address] capsule Take 1 capsule every day by oral route for 90 days. ferrous sulfate 325 (65 Fe) MG EC tablet Take 1 tablet by mouth in the morning. furosemide (Lasix) 40 mg tablet PRN for LE edema hydrALAZINE (Apresoline) 50 mg tablet Take 50 mg by mouth once daily as directed. Jantoven 4 mg tablet montelukast (Singulair) 10 mg tablet nitroglycerin (Nitrostat) 0.[address] 1 tab under tongue at the beginning of chest pain. May repeat every 5 minutes if pain persists. Do not repeat more that 3 times. sacubitriL-valsartan (Entresto) 49-51 mg tablet Take 1 tablet twice a day by oral route. Spiriva with HandiHaler 18 mcg inhalation capsule No current facility-administered medications on file prior to visit. ROS: Cardio Basic Cardiovascular Symptoms: no lightheadedness, no leg edema, no syncope, no orthopnea, no PND, no claudication, Constitutional Constitutional: no fever, no night sweats, no significant weight gain, no significant weight loss, no exercise intolerance Eyes Eyes: no dry eyes, no irritation, no vision change ENMT Ears: no difficulty hear (more content not included)... [facility] 04-08-2023 Note Patient here for 6 m o follow up CAD, chronic afib, systolic heart failure, hypertension and device check. He had ECG and labs in Nov 2022. Denies chest pain and bleeding on warfarin. GROSS remains unchanged. Review of Systems Cardiovascular: Positive for dyspnea on exertion. Musculoskeletal: Positive for arthritis, joint pain, muscle weakness and myalgias. All other systems reviewed and are negative. [facility] 04-08-2023 Note [place] Electrophysiology Consult Note Reason for visit: 6-month follow-up HPI: Alvin Boyd is a 87 y.o. year old with past medical history of CAD s/p stent 2012, A-fib, aortic valve stenosis, CHF HFimpEF s/p BiV TRANSMISSION INSPECTOR-P EF 55% he is here for 6-month follow-up last device check 10/14/2022 showed normal device function and underlying rhythm A-fib with slow VR feeling well with no complaints of chest pain, shortness of breath, orthopnea, LE edema. He takes Lasix as needed for LE edema. Echo 04/2021 showed mildly elevated RVSP of 35, mildly enlarged ascending aorta 3.56 centimeter He had repeat echocardiogram 09/2021 RVSP 48, moderate pulmonary hypertension/moderate to severe tricuspid regurgitation and normal diameter of aortic root and no significant aortic valve stenosis, aortic root diameter was 3.2 cm He is a previous Dr. Bull patient Per dr. Campbell 03/2021 Alvin is seen in follow up. He is a 85 yo man with prior history of permanent AF, CAD SP stenting last in 2012, s/p pacemaker in the past became dependent on it, developed chronic systolic heart failure and underwent upgrade to a BiV pacer (no ICD) in 2016, recovered EF on follow up. Denied chest pain, denied increased shortness of breath, he is in NYHA II-III, In December 2020 he was started on torsemide by Dr Lal due to increased lower extremity edema and elevated NT-proBNP. His Cr was 1.3. He says the swelling improved. He continues to have shortness of breath on mild exertion. He says this has been going on for a while. This is still present despite diuretic therapy. Recent testing: Echocardiogram 01/16/2021: Global left ventricular systolic function is normal, ejection fraction is 55-60%. No significant wall motion abnormality. Severe biatrial enlargement. Right ventricle is mildly dilated with normal systolic function. Moderate tricuspid regurgitation. Mildly elevated right-sided pressures. Mild mitral regurgitation. Mildly dilated ascending aorta. Blood testing 01/14/2021: Hemoglobin 10.5, platelets 144, cholesterol 95, triglycerides 65, HDL 41, LDL 40, potassium 4.5, BUN 22, creatinine 1.08. BNP 648. PMH: Past Medical History: Diagnosis Date Atrial fibrillation ([facility]) CHF (congestive heart failure) ([facility]) Coronary artery disease Heart valve disease Hyperlipidemia Hypertension PSH: No past surgical history on file. SH: Social Determinants of Health Tobacco Use: Medium Risk Smoking Tobacco Use: Former Smokeless Tobacco Use: Never Passive Exposure: Not on file Alcohol Use: Not on file Financial Resource Strain: Not on file Food Insecurity: Not on file Transportation Needs: Not on file Physical Activity: Not on file Stress: Not on file Social Connections: Not on file Intimate Partner Violence: Not on file Depression: Not on file Housing Stability: Not on file Allergies: No Known Allergies Weight: 103kg Visit Vitals BP 106/63 (BP Location: Right arm, Patient Position: Sitting) Pulse 60 Ht 1.753 m (5' 9 ) Wt 103 kg (228 lb) SpO2 97% BMI 33.67 kg/m??? Smoking Status Former BSA 2.24 m??? Meds: Current Outpatient Medications on File Prior to Visit Medication Sig Dispense Refill atorvastatin (Lipitor) 40 mg tablet 1 (one) time each day at the same time. carvedilol (Coreg) 12.5 mg tablet Take 1 tablet twice a day by oral route. DULoxetine (Cymbalta) [address] capsule Take 1 capsule every day by oral route for 90 days. ferrous sulfate 325 (65 Fe) MG EC tablet Take 1 tablet by mouth in the morning. furosemide (Lasix) 40 mg tablet PRN for LE edema hydrALAZINE (Apresoline) 50 mg tablet Take 50 mg by mouth once daily as directed. Jantoven 4 mg tablet montelukast (Singulair) 10 mg tablet nitroglycerin (Nitrostat) 0.[address] 1 tab under tongue at the beginning of chest pain. May repeat every 5 minutes if pain persists. Do not repeat more that 3 times. sacubitriL-valsartan (Entresto) 49-51 mg tablet Take 1 tablet twice a day by oral route. Spiriva with HandiHaler 18 mcg inhalation capsule warfarin (Coumadin) 5 mg tablet Take 5 mg by mouth. Take as directed per After Visit Summary. Follow up with [facility] for INR No current facility-administered medications on file prior to visit. ROS: Cardio Basic Cardiovascular Symptoms: no lightheadedness, no leg edema, no syncope, no orthopnea, no PND, no claudication, Constitutional Constitutional: no fever, no night sweats, no significant weight gain, no significant weight loss, no exercise intolerance Eyes Eyes: no dry eyes, no irritation, no vision change ENMT Ears: no difficulty hearing, no ear pain Nose: no frequent nosebleeds, Mouth/Throat: no sore throat, no bleeding gums, no snoring, no dry mouth, no mouth ulcers, no oral abnormalities, no teeth problems Respiratory Respiratory: no cough, no w (more content not included)... [facility] 10-29-2022 Note [id number]= 5 Remains rate controlled with coreg and anticoagulation with jantoven Denied any bleeding tendencies [facility] 10-29-2022 Note Continue GDMT- lipit or, coreg, entresto, lasix [facility] II-III Currently euvolemic without exacerbation Overall pt is doing quite well No concerning symptoms today Monitor daily weights, I&O, fluid restriction 1.5-2L/day, renal function remains stable [facility] 10-29-2022 Note Continue GDMT- mario nue coreg, lipitor- no ASA with anticoagulation- jantoven [facility] 10-29-2022 Note Annual labs with PCP - Dr Gil Continue lipitor [facility] 10-29-2022 Note No concerning sympto ms today Will monitor with routine echo- or repeat echo with concerning symptoms [facility] 10-29-2022 Note [facility] CARDIOLOGY PROGR ESS NOTE HPI: Alvin Boyd is a 86 y.o. male here for Coronary Artery Disease, Atrial Fibrillation, Valve Disorder, and Congestive Heart Failure Patient here for 6 mo follow up CAD, CHF, and afib. Denies bleeding on warfarin. LE edema is intermittent. SOB is no worse than normal for him. Had labs in Jun 2022 and device was checked in the office 2 weeks ago. Denied chest pain, orthopnea and states leg swelling is about typical. Weight remains stable. Review of Systems Cardiovascular: Positive for dyspnea on exertion and leg swelling. Musculoskeletal: Positive for arthritis, joint pain, muscle weakness and myalgias. All other systems reviewed and are negative Visit Vitals BP 111/65 (BP Location: Right arm, Patient Position: Sitting) Pulse 60 Ht 1.753 m (5' 9 ) Wt 108 kg (237 lb) SpO2 97% BMI 35.00 kg/m??? Smoking Status Former BSA 2.29 m??? No Known Allergies Medications: Current Outpatient Medications on File Prior to Visit Medication Sig Dispense Refill atorvastatin (Lipitor) 40 mg tablet 1 (one) time each day at the same time. carvedilol (Coreg) 12.5 mg tablet Take 1 tablet twice a day by oral route. DULoxetine (Cymbalta) [address] capsule Take 1 capsule every day by oral route for 90 days. ferrous sulfate 325 (65 Fe) MG EC tablet Take 1 tablet by mouth in the morning. furosemide (Lasix) 40 mg tablet PRN for LE edema hydrALAZINE (Apresoline) 50 mg tablet Take 50 mg by mouth once daily as directed. Jantoven 4 mg tablet montelukast (Singulair) 10 mg tablet nitroglycerin (Nitrostat) 0.[address] 1 tab under tongue at the beginning of chest pain. May repeat every 5 minutes if pain persists. Do not repeat more that 3 times. sacubitriL-valsartan (Entresto) 49-51 mg tablet Take 1 tablet twice a day by oral route. Spiriva with HandiHaler 18 mcg inhalation capsule No current facility-administered medications on file prior to visit. Physical Exam: Constitutional: Appearance: Normal appearance. Without apparent distress, obese, chronically ill HENT: Head: Normocephalic and atraumatic. Nose: Nose normal. Mouth/Throat: Mouth: Mucous membranes are moist. Eyes: Extraocular Movements: Extraocular movements intact. Conjunctiva/sclera: Conjunctivae normal. Neck: Vascular: No JVD. Cardiovascular: Rate and Rhythm: Normal rate and regular rhythm. Pulses: Dorsalis pedis pulses are 3 on the right side and 3on the left side. Posterior tibial pulses are 3 on the right side and 3 on the left side. Heart sounds: Normal heart sounds, S1 normal and S2 normal. Pulmonary: Effort: Pulmonary effort is normal. Breath sounds: Normal breath sounds. Abdominal: General: Bowel sounds are normal. Palpations: Abdomen is soft. Musculoskeletal: General: Normal range of motion. Cervical back: Normal range of motion. Right lower le-2+edema. Left lower le-2+ edema. Skin: General: Skin is warm and dry. Hemosideran skin changes BLE Capillary Refill: Capillary refill takes less than 2 seconds. Neurological: General: No focal deficit present. Mental Status: She is alert and oriented to person, place, and time. Psychiatric: Mood and Affect: Mood normal. Behavior: Behavior normal. Thought Content: Thought content normal. Judgment: Judgment normal. Labs: 03/12/22 BNP 377, BUN 28, CR 0.93 K+ 4.6 CBC stable Last lab values have been reviewed CV Testin10/18/21 Assessment/Plan: Presence of biventricular cardiac pacemaker Device check 10/14/22 Device functioning normal, 99% BI-V pacing 04/15/22- battery life 7 yrs, normal device function, no ventricular arrythmias, 100% Bi-V paced Mitral valve disorder No concerning symptoms today Will monitor with routine echo- or repeat echo with concerning symptoms Hyperlipidemia Annual labs with PCP- Dr Gil Continue lipitor Coronary artery disease involving eek coronary artery of eek heart without angina pectoris Continue GDMT- continue coreg, lipitor- no ASA with anticoagulation- jantoven Acute on chronic systolic heart failure, NYHA class 2 (CMS/HCC) Continue GDMT- lipitor, coreg, entresto, lasix [facility] II-III Currently euvolemic without exacerbation Overall pt is doing quite well No concerning symptoms today Monitor daily weights, I&O, fluid restriction 1.5-2L/day, renal function remains stable Chronic atrial fibrillation (CMS/HCC) [id number]= 5 Remains rate controlled with coreg and anticoagulation with jantoven Denied any bleeding tendencies RTC 6 months or earlier if needed [facility] 10-29-2022 Note Patient here for 6 m o follow up CAD, CHF, and afib. Denies bleeding on warfarin. LE edema is intermittent. SOB is no worse than normal for him. Had labs in Jun 2022 and device was checked in the office 2 weeks ago. Review of Systems Cardiovascular: Positive for dyspnea on exertion and leg swelling. Musculoskeletal: Positive for arthritis, joint pain, muscle weakness and myalgias. All other systems reviewed and are negative. [facility] 10-29-2022 Note Device check 2 Device functioning normal, 99% BI-V pacing 04/15/22- battery life 7 yrs, normal device function, no ventricular arrythmias, 100% Bi-V paced [facility] Summary Purpose Family History No Family History Records FoundNo Family History Records FoundNo Family History Records FoundNo Family History Records Found Advance Directives No Advanced Directives Records FoundNo Advanced Directives Records FoundNo Advanced Directives Records FoundNo Advanced Directives Records Found Additional Source Comments (unrecognized sect ion and content) No Status Records FoundNo Status Records FoundNo Status Records FoundNo Status Records Found INFORMATION SOURCE (unrecogn ized section and content) DATE CREATED AUTHOR 05/19/2018 [facility] DATE CREATED AUTHOR AUTHOR'S ORGANIZ ATION 06/19/2020 [facility] DATE CREATED AUTHOR AUTHOR'S ORGANIZ ATION 05/08/2023 [facility] DATE CREATED AUTHOR AUTHOR'S ORGANIZ ATION 10/20/2023 [facility] FOR RECORDS PERTAINING TO PATIENTS WHO ARE OR HAVE BEEN ENROLLED IN A CHEMICAL DEPENDENCY/SUBSTANCEABUSE PROGRAM, SOME INFORMATION MAY BE OMITTED. This clinical summary was aggregated from multiple sources. Caution should be exercised in using it in the provision of clinical care. This summary normalizes information from multiple sources, and as a consequence, information in this document may materially change the coding, format and clinical context of patient data. In addition, data may be omitted in some cases. CLINICAL DECISIONS SHOULD BE BASED ON THE PRIMARY CLINICAL RECORDS. [employer] provides no warranty or guarantee of the accuracy or completeness of information in this document.
--- NOTE | 2023-11-26 18:26 | ED.SOB1 ---
HPI - SOB/Dyspnea General Chief Complaint: Shortness of Breath/Dyspnea Stated Complaint: Weakness Time Seen by Provider: 11/26/23 18:26 Source: patient Mode of arrival: ambulance History of Present Illness HPI Narrative: as patient's here with his from his home. He called EMS because of shortness of breath. He tells us these had a touch of emphysema and uses a BiPAP at night, he does not use oxygen during the daytime. The breathing got worse today. He does not have any heaviness pressure squeezing or discomfort in the chest. He does not have any swelling of his legs. He is running a fever here. He's received all the vaccines for Covid. Does not have nausea vomiting or diarrhea. Pulse oximetry eighty-seven percent on room air greatly improved with supplemental oxygen. Related Data Home Medications Medication Instructions Recorded Confirmed atorvastatin 40 mg tablet 40 mg PO DAILY 11/26/23 11/26/23 carvedilol 12.5 mg tablet 12.5 mg PO BID 11/26/23 11/26/23 duloxetine 30 mg capsule,delayed 30 mg PO DAILY 11/26/23 11/26/23 release hydrochlorothiazide 12.5 mg tablet 12.5 mg PO BID 11/26/23 11/26/23 montelukast 10 mg tablet 10 mg PO DAILY 11/26/23 11/26/23 omeprazole 40 mg capsule,delayed 40 mg PO DAILY 11/26/23 11/26/23 release ondansetron HCl 4 mg tablet 4 mg PO DAILY 11/26/23 11/26/23 warfarin 4 mg tablet (Jantoven) 4 mg PO DAILY 11/26/23 11/26/23 Allergies Allergy/AdvReac Type Severity Reaction Status Date / Time No Known Drug Allergies Allergy Verified 11/26/23 18:11 Exam Narrative Exam Narrative: excellent historian it appears stated age. Does have mild increase in respiratory rate and has hypoxemia on arrival here. He is able to complete sentences is not confused. Lungs have some scattered rhonchi bilaterally. Heart rate and rhythm show a paced rhythm and he does have a pacemaker in his left upper chest. Incidentally he says he has five coronary stents but states he's never had a heart attack or heart failure that he is aware of. Abdomen is nondistended. he has no abdominal tenderness.Legs have some swelling and water retention. Constitutional Vital Signs, click to edit/add: Last Vital Signs Temp 101.6 F H 11/26/23 18:04 Pulse 60 11/26/23 18:04 Resp 22 11/26/23 18:04 BP 121/58 11/26/23 18:04 Pulse Ox 87 L 11/26/23 18:04 O2 Del Method Room Air 11/26/23 18:04 Course Vital Signs Vital signs: Vital Signs Temperature 101.6 F H 11/26/23 18:04 Pulse Rate 60 11/26/23 18:04 Respiratory Rate 22 11/26/23 18:04 Blood Pressure 121/58 11/26/23 18:04 Pulse Oximetry 87 L 11/26/23 18:04 Oxygen Delivery Method Room Air 11/26/23 18:04 Temperature 101.6 F H 11/26/23 18:04 Pulse Rate 60 11/26/23 18:04 Respiratory Rate 22 11/26/23 18:04 Blood Pressure 121/58 11/26/23 18:04 Pulse Oximetry 87 L 11/26/23 18:04 Oxygen Delivery Method Room Air 11/26/23 18:04 MDM - SOB/Dyspnea MDM Narrative Medical decision making narrative: patient presents from home with worsening shortness of breath fever and congestion. Care will be turned over the next physician to finish the workup. Start him on early antibiotics after blood cultures have been done Discharge Plan Discharge Chief Complaint: Shortness of Breath/Dyspnea Clinical Impression: Acute dyspnea Patient Disposition: Still a Patient Prescriptions / Home Meds: No Action atorvastatin 40 mg tablet 40 mg PO DAILY carvedilol 12.5 mg tablet 12.5 mg PO BID duloxetine 30 mg capsule,delayed release(DR/EC) 30 mg PO DAILY hydrochlorothiazide 12.5 mg tablet 12.5 mg PO BID montelukast 10 mg tablet 10 mg PO DAILY omeprazole 40 mg capsule,delayed release(DR/EC) 40 mg PO DAILY ondansetron HCl 4 mg tablet 4 mg PO DAILY warfarin [Jantoven] 4 mg tablet 4 mg PO DAILY Referrals: Physician,Non-Staff, MD [Primary Care Provider] - 1 week
--- NOTE | 2023-11-26 18:28 | ECG_ITS ---
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
--- NOTE | 2023-11-26 18:28 | XR_ITS ---
The [address] [address] Patient Name: ALVIN BOYD MRN: [id number] date: 1935 Sex: M Assigned Patient Location: ER Current Patient Location: ER Accession/Order Number: [id number] Exam Date: 11/26/2023 18:35 Report Date: 11/26/2023 19:04 At the request of: LETICIA RAIN Procedure: XR chest 1V EXAMINATION: XR chest 1V HISTORY: Dyspnea COMPARISON: Chest x-rays 10/29/2021 TECHNIQUE: Portable chest FINDINGS: The lung parenchyma is free of consolidation or infiltrate. No pneumothorax or pleural effusion. Left-sided cardiac pacemaker. The cardiac, mediastinal and hilar contours are normal. The visualized osseous structures exhibit no gross abnormality. XR/XR chest 1V IMPRESSION: No acute cardiopulmonary abnormality. Electronically authenticated by: DAMIR REESE Date: 11/26/2023 19:04
[2023-11-26 18:45] LABS: PCO2 VBG 43.1 mmHg (40.0-52.0); pH VBG 7.381 (7.330-7.430)
[2023-11-26 18:46] LABS: Basophils Percent Auto 0.4 % (0.2-2.0); Eosinophils Percent Auto 0.1 % (0.9-7.0); Hemoglobin 13.2 g/dL (14.0-18.0); Immature Granulocytes Abs Auto 0.03 10^3/uL (0.00-0.03); Immature Granulocytes Pct Auto 0.4 % (0.0-0.5); Lymphocytes Absolute Auto 0.7 10^3/uL (1.2-3.8); Lymphocytes Percent Auto 8.7 % (20.5-60.0); Mean Corpuscular HGB Conc 31.4 g/dL (29.9-35.2); Mean Corpuscular Hemoglobin 30.5 pg (25.9-34.0); Mean Platelet Volume 10.1 fL (9.5-13.5); Monocytes Absolute Auto 0.2 10^3/uL (0.3-0.8); Monocytes Percent Auto 2.4 % (1.7-12.0); Neutrophils Absolute Auto 7.4 10^3/uL (1.4-6.5); Platelet Count 184 10^3/uL (150-450); Red Blood Count 4.33 10^6/uL (4.70-6.10); White Blood Count 8.4 10^3/uL (4.0-11.0)
[2023-11-26 18:58] LABS: Influenza Virus A Antigen Negative; Influenza Virus B Antigen Negative; Internal Control Within Normal Limits
[2023-11-26 18:59] LABS: SARS-CoV-2 Ag NEGATIVE (NEGATIVE)
[2023-11-26 19:00] LABS: D Dimer 1.69 mg/L FEU (<=0.59)
[2023-11-26 19:01] LABS: Alanine Aminotransferase 30 U/L (16-63); Albumin Level 3.4 g/dL (3.4-5.0); Alkaline Phosphatase 71 U/L (46-116); Aspartate Amino Transferase 24 U/L (15-37); BUN Creatinine Ratio 31.5; Bilirubin Total 1.1 mg/dL (0.2-1.0); Calcium 9.4 mg/dL (8.5-10.1); Carbon Dioxide 26.8 mmol/L (21.0-32.0); Chloride 104 mmol/L (98-107); Estimated GFR (African America 57 (>=60); Estimated GFR (Non-African Ame 47 (>=60); Globulin 3.5 g/dL; Glucose 176 mg/dL (74-106); Potassium 3.8 mmol/L (3.5-5.1); Sodium 140 mmol/L (136-145); Total Protein 6.9 g/dL (6.4-8.2)
[2023-11-26] MEDS: ACETAMINOPHEN 325 MG TABLET 650 MG PO (19:06)
[2023-11-26] MEDS: CEFTRIAXONE 1,000 MG in 0.9 % SODIUM CHLORIDE 50 ML 100 MG IV (19:06)
[2023-11-26 19:09] LABS: Troponin I High Sensitivity 31.3 pg/mL (4.0-76.1)
[2023-11-26] MEDS: AZITHROMYCIN 500 MG in 0.9 % SODIUM CHLORIDE 250 ML 250 MG IV (20:14)
--- NOTE | 2023-11-26 20:15 | ED_ITS ---
HPI - SOB/Dyspnea General Chief Complaint: Shortness of Breath/Dyspnea Stated Complaint: Weakness Time Seen by Provider: 11/26/23 18:26 Source: patient Mode of arrival: ambulance History of Present Illness HPI Narrative: The patient was initially seen by Dr. Arias and signed out to me after discussing the case with him thoroughly. Please see his full history and physical. Related Data Home Medications Medication Instructions Recorded Confirmed atorvastatin 40 mg tablet 40 mg PO DAILY 11/26/23 11/26/23 carvedilol 12.5 mg tablet 12.5 mg PO BID 11/26/23 11/26/23 duloxetine 30 mg capsule,delayed 30 mg PO DAILY 11/26/23 11/26/23 release hydrochlorothiazide 12.5 mg tablet 12.5 mg PO BID 11/26/23 11/26/23 montelukast 10 mg tablet 10 mg PO DAILY 11/26/23 11/26/23 omeprazole 40 mg capsule,delayed 40 mg PO DAILY 11/26/23 11/26/23 release ondansetron HCl 4 mg tablet 4 mg PO DAILY 11/26/23 11/26/23 warfarin 4 mg tablet (Jantoven) 4 mg PO DAILY 11/26/23 11/26/23 Allergies Allergy/AdvReac Type Severity Reaction Status Date / Time No Known Drug Allergies Allergy Verified 11/26/23 18:11 Exam Constitutional Vital Signs, click to edit/add: Last Vital Signs Temp 98.3 F 11/26/23 19:58 Pulse 61 11/26/23 19:58 Resp 17 11/26/23 19:58 BP 111/61 11/26/23 19:58 Pulse Ox 96 11/26/23 19:58 O2 Del Method Simple Mask 11/26/23 18:44 O2 Flow Rate 5 11/26/23 19:58 Course Vital Signs Vital signs: Vital Signs Temperature 101.6 F H 11/26/23 18:04 Pulse Rate 60 11/26/23 18:04 Respiratory Rate 22 11/26/23 18:04 Blood Pressure 121/58 11/26/23 18:04 Pulse Oximetry 87 L 11/26/23 18:04 Oxygen Delivery Method Room Air 11/26/23 18:04 Temperature 98.3 F 11/26/23 19:58 Pulse Rate 61 11/26/23 19:58 Respiratory Rate 17 11/26/23 19:58 Blood Pressure 111/61 11/26/23 19:58 Pulse Oximetry 96 11/26/23 19:58 Oxygen Delivery Method Simple Mask 11/26/23 18:44 Oxygen Delivery Flow Rate 5 11/26/23 19:58 MDM - SOB/Dyspnea MDM Narrative Medical decision making narrative: chest x-ray per radiologist shows no acute findings, no evidence of pneumonia. Covid an influenza test are negative. She was on facemask oxygen but we were able to change him over to 5 L nasal cannula and he is maintaining a saturation of 96-97%. Findings are discussed with his family and he is being admitted. Blood cultures were obtained and he was given IV Rocephin and Zithromax. D-dimer is elevated but the patient does have a fever and I have no clinical suspicion of pulmonary embolism. UA is pending. The patient has a DNR form and it is not the official [place] DNR form. On it he has requested no intubation and no CPR. Differential Diagnosis Differential diagnosis: Likely congestive heart failure, community acquired pneumonia and other (Covid, pneumonia) Lab Data Attestation: I reviewed the patient's lab results. Labs: Lab Results 11/26/23 11/26/23 Range/Units 18:25 18:35 WBC 8.4 (4.0-11.0) 10^3/uL RBC 4.33 L (4.70-6.10) 10^6/uL Hgb 13.2 L (14.0-18.0) g/dL Hct 42.0 (42.0-54.0) % MCV 97.0 H (80.0-94.0) fL MCH 30.5 (25.9-34.0) pg MCHC 31.4 (29.9-35.2) g/dL RDW 13.0 (11.0-15.0) % Plt Count 184 (150-450) 10^3/uL MPV 10.1 (9.5-13.5) fL Neut % (Auto) 88.0 H (43.0-75.0) % Lymph % (Auto) 8.7 L (20.5-60.0) % [place] % (Auto) 2.4 (1.7-12.0) % Eos % (Auto) 0.1 L (0.9-7.0) % Baso % (Auto) 0.4 (0.2-2.0) % Neut # (Auto) 7.4 H (1.4-6.5) 10^3/uL Lymph # (Auto) 0.7 L (1.2-3.8) 10^3/uL [place] # (Auto) 0.2 L (0.3-0.8) 10^3/uL Eos # (Auto) 0.0 (0.0-0.7) 10^3/uL Baso # (Auto) 0.0 (0.0-0.1) 10^3/uL Abs Immat Gran (auto) 0.03 (0.00-0.03) 10^3/uL Imm/Tot Granulo (auto) 0.4 (0.0-0.5) % D-Dimer 1.69 H* (<=0.59) mg/L FEU VBG pH 7.381 (7.330-7.430) VBG pCO2 43.1 (40.0-52.0) mmHg Sodium 140 (136-145) mmol/L Potassium 3.8 (3.5-5.1) mmol/L Chloride 104 (98-107) mmol/L Carbon Dioxide 26.8 (21.0-32.0) mmol/L Anion Gap 13.0 BUN 45.0 H (7.0-18.0) mg/dL Creatinine 1.43 H (0.70-1.30) mg/dL Est GFR ( Amer) 57 L (>=60) Est GFR (Non-Af Amer) 47 L (>=60) BUN/Creatinine Ratio 31.5 Glucose 176 H (74-106) mg/dL Calcium 9.4 (8.5-10.1) mg/dL Total Bilirubin 1.1 H (0.2-1.0) mg/dL AST 24 (15-37) U/L ALT 30 (16-63) U/L Alkaline Phosphatase 71 (46-116) U/L Troponin I High Sens 31.3 (4.0-76.1) pg/mL NT-Pro-B Natriuret Pep 3213.0 H* (<=1800.0) pg/mL Total Protein 6.9 (6.4-8.2) g/dL Albumin 3.4 (3.4-5.0) g/dL Globulin 3.5 g/dL Albumin/Globulin Ratio 1.0 SARS-CoV-2 (PCR) Negative (NEGATIVE) Influenza Type A Ag Negative Influenza Type B Ag Negative Imaging Data Chest x-ray: Radiologist's impression: Procedure: XR chest 1V EXAMINATION: XR chest 1V HISTORY: Dyspnea COMPARISON: Chest x-rays 10/29/2021 TECHNIQUE: Portable chest FINDINGS: The lung parenchyma is free of consolidation or infiltrate. No pneumothorax or pleural effusion. Left-sided cardiac pacemaker. The cardiac, mediastinal and hilar contours are normal. The visualized osseous structures exhibit no gross abnormality. IMPRESSION: No acute cardiopulmonary abnormality. Electronically authenticated by: DAMIR REESE Date: 11/26/2023 19:04 Discharge Plan Discharge Chief Complaint: Shortness of Breath/Dyspnea Clinical Impression: Fever, Hypoxemia Patient Disposition: Admitted As Inpatient
--- OUTSIDE RECORDS SUMMARY | 2023-11-26 20:43 | XMS_ITS | CCD ---
Author Name Unknown Address [address] [place] [address] Organization [facility] Care Team Providers Care Defect Cutter Name Role Phone AUXIER, MYRNA DENIS Unavailable [...] Unavailabl e MORLEY, DRAGAN CINTHIA Unavailable Unavailable [place], Myrna [id number] Unavailable Unavailable ValoneRio Fabienne Unavailable Unavailabl e [...] Date of Onset Reaction(s) Facility (1 source) 65469,[id number]; Translations: [Unknown] Propensity to adverse reactions (disorder) 9 [facility] Repository Problems Active Problems Problem Classification Problem [...] myocardial infarction; Translations: [Atherosclerotic heart disease of [place] coronary artery without angina pectoris] Onset: 10-29-2022 [...] Onset: 03-28-2023 Episodic Other aftercare (1 source) [facility] (current) use of anticoagulants; Translations: [PRISON CURRNT USE ANTICOAGULANTS] Onset: 04-29-2023 Episodic Other [...] 2022 Episodic Other aftercare (1 source) Other terminologist (current) drug therapy; Translations: [OTH PRISON CURRENT DRUG THERAPY] Onset: 2022 Episodic Other aftercare (1 source) [facility] (current) use of aspirin; Translations: [PRISON CURRENT USE OF ASPIRIN] Onset: 2022 Episodic [...] Range Facility Office Visiton 10-19-2023 Follow-up visit [id number] Calin [facility] 1935 M [facility] Provider Department Center 10/19/2023 SHASTA CROFT [facility] No family history on file Level of Service:22354 HI OFFICE/OUTPATIENT ESTABLISHED MOD MDM 30-39 MIN Normal [facility] Office Visiton 04-08-2023 Follow-up visit [id number] Calin [facility] 1935 M Date Provider Department Center 04/08/2023 SHASTA CROFT [facility] No family history on file Level of Service:39657 HI OFFICE/OUTPATIENT ESTABLISHED MOD MDM 30-39 MIN Reason for Visit and Comments: Coronary Artery Disease [187] Atrial Fibrillation [80] Congestive Heart Failure [127] Hypertension [475027] 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 Dana Angulo Basophils/100 WBC (Bld) 0.8 % Normal 0.2-2.0 [facility] Comment on above: Performed By: #### C BC #### [facility] [address] [place] [address] Dr. Dana Angulo EO # 0.1 103/ul Normal 0.0-0.7 [facility] Comment on above: Performed By: #### C BC #### [facility] [address] [place] [address] Dr. Dana Angulo Eosinophils/100 WBC (Bld) 0.9 % Normal 0.9-7.0 [facility] Comment on above: Performed By: #### C BC #### [facility] [address] [place] [address] Dr. Dana Angulo Erythrocyte distribution width (RBC) [Ratio] 13.2 % Normal 11.0-15.0 [facility] Comment on above: Performed By: #### C BC #### [facility] [address] [place] [address] Dr. Dana Angulo Hematocrit (Bld) [Volume fraction] 37.1 % Critically low 42.0-54.0 [facility] Comment on above: Performed By: #### C BC #### [facility] [address] [place] [address] Dr. Dana Angulo Hemoglobin (Bld) [Mass/Vol] 12.1 g/dL Critically low 14.0-18.0 [facility] Comment on above: Performed By: #### C BC #### [facility] [address] [place] [address] Dr. Dana Angulo IG # 0.03 10e3/ul Normal 0.00-0.03 [facility] Comment on above: Performed By: #### C BC #### [facility] [address] [place] [address] Dr. Dana Angulo IG % 0.4 % Normal 0.0-0.5 [facility] Comment on above: Performed By: #### C BC #### [facility] [address] [place] [address] Dr. Dana Angulo LYMPH # 1.4 103/ul Normal 1.2-3.8 [facility] Comment on above: Performed By: #### C BC #### [facility] [address] [place] [address] Dr. Dana Angulo Lymphocytes/100 WBC (Bld) 19.0 % Critically low 20.5-60.0 [facility] Comment on above: Performed By: #### C BC #### [facility] [address] [place] [address] Dr. Dana Angulo MANUAL DIFF REQ NO Normal [facility] Comment on above: Performed By: #### C BC #### [facility] [address] [place] [address] Dr. Dana Angulo MCH (RBC) [Entitic mass] 30.6 pg Normal 25.9-34.0 [facility] Comment on above: Performed By: #### C BC #### [facility] [address] [place] [address] Dr. Dana Angulo MCHC (RBC) [Mass/Vol] 32.6 g/dL Normal 29.9-35.2 [facility] Comment on above: Performed By: #### C BC #### [facility] [address] [place] [address] Dr. Dana Angulo MCV (RBC) [Entitic vol] 93.7 fL Normal 80.0-94.0 [facility] Comment on above: Performed By: #### C BC #### [facility] [address] [place] [address] Dr. Dana Angulo MONO # 0.5 103/ul Normal 0.3-0.8 [facility] Comment on above: Performed By: #### C BC #### [facility] [address] [place] [address] Dr. Dana Angulo Monocytes/100 WBC (Bld) 7.2 % Normal 1.7-12.0 [facility] Comment on above: Performed By: #### C BC #### [facility] [address] [place] [address] Dr. Dana Angulo NEUT # 5.4 103/ul Normal 1.4-6.5 [facility] Comment on above: Performed By: #### C BC #### [facility] [address] [place] [address] Dr. Dana Angulo Neutrophils/100 WBC (Bld) 71.7 % Normal 43.0-75.0 [facility] Comment on above: Performed By: #### C BC #### [facility] [address] [place] [address] Dr. Dana Angulo Platelet mean volume (Bld) [Entitic vol] 9.6 fL Normal 9.5-13.5 [facility] Comment on above: Performed By: #### C BC #### [facility] [address] [place] [address] Dr. Dana Angulo PLT 165 103/ul Normal 150-450 [facility] Comment on above: Performed By: #### C BC #### [facility] [address] [place] [address] Dr. Dana Angulo RBC 3.96 106/ul Critically low 4.70-6.10 [facility] Comment on above: Performed By: #### C BC #### [facility] [address] [place] [address] Dr. Dana Angulo WBC 7.5 103/ul Normal 4.0-11.0 [facility] Comment on above: Performed By: #### C BC #### [facility] [address] [place] [address] Dr. Dana Angulo ER URINE PROFILEon 3 Bilirubin Ql (U) Negative Normal NEGATIVE [facility] Comment on above: Performed By: #### ANGELINA FRIENDRO #### [facility] [address] [place] [address] Dr. Dana Angulo Clarity (U) CLEAR Normal CLEAR [facility] Comment on above: Performed By: #### ANGELINA FRIENDRO #### [facility] [address] [place] [address] Dr. Dana Angulo Color (U) LT. YELLOW Normal YELLOW [facility] Comment on above: Performed By: #### ANGELINA FRIENDRO #### [facility] [address] [place] [address] Dr. Dana GÓMEZ A micrscopic examina tion will be performed if indicated. Normal [facility] Comment on above: Performed By: #### Marino KENYON UMICRO #### [facility] [address] [place] [address] Dr. Dana Angulo Glucose Ql (U) Negative Normal NEGATIVE [facility] Comment on above: Performed By: #### Marino KENYON UMICRO #### [facility] [address] [place] [address] Dr. Dana Angulo Hemoglobin Ql (U) Negative Normal NEGATIVE [facility] Comment on above: Performed By: #### Marino KENYON UMICRO #### [facility] [address] [place] [address] Dr. Dana Angulo Ketones Ql (U) Negative Normal NEGATIVE [facility] Comment on above: Performed By: #### Marino KENYON UMICRO #### [facility] [address] [place] [address] Dr. Dana Angulo LEUKOCYTES TRACE Abnormal NEGATIVE [facility] Comment on above: Performed By: #### Marino KENYON UMICRO #### [facility] [address] [place] [address] Dr. Dana Angulo Nitrite Ql (U) Negative Normal NEGATIVE [facility] Comment on above: Performed By: #### Marino KENYON UMICRO #### [facility] [address] [place] [address] Dr. Dana Anuglo pH (U) 6.0 [pH] Normal 5-9 [facility] Comment on above: Performed By: #### Marino KENYON UMICRO #### [facility] [address] [place] [address] Dr. Dana Angulo SPEC GRAVITY 1.015 Normal 1.005-<=1.02 5 [facility] Comment on above: Performed By: #### Marino KENYON UMICRO #### [facility] [address] [place] [address] Dr. Dana Angulo UA PROTEIN Negative Normal NEGATIVE/ TRACE [facility] Comment on above: Performed By: #### ANGELINA FRIENDRO #### [facility] [address] [place] [address] Dr. Dana Angulo UR MICRO IND INDICATED Normal [facility] Comment on above: Performed By: #### E ANGELINA KENYONRO #### [facility] [address] [place] [address] Dr. Dana Angulo Urobilinogen Qn (U) 0.2 {Delia'U}/dL Normal 0.2 - 1.0 [facility] Comment on above: Performed By: #### ANGELINA FRIENDRO #### [facility] [address] [place] [address] Dr. Dana Angulo LACTATE/LACTIC ACIDon 2022 Lactate [Moles/Vol] 1.1 mmol/L Normal 0.4-1.9 [facility] Comment on above: Performed By: #### L ACT #### [facility] [address] [place] [address] Dr. Dana Angulo LIPASEon 12-18-2022 Lipase [Catalytic activity/Vol] 68.0 U/L Critically low 73.0-393.0 [facility] Comment on above: Performed By: #### C BC #### [facility] [address] [place] [address] Dr. Dana Angulo OCC BLD IMMUNO SCREENon 11-30 OCCULT BLOOD Negative Normal NEGATIVE [facility] Comment on above: Performed By: #### H STROPN #### [facility] [address] [place] [address] Dr. Dana Angulo PROF 14(COMP METB)on 023 Albumin [Mass/Vol] 3.8 g/dL Normal 3.4-5.0 [facility] Comment on above: Performed By: #### C BC #### [facility] [address] [place] [address] Dr. Dana Angulo Albumin/Globulin [Mass ratio] 1.3 {ratio} Normal [facility] Comment on above: Performed By: #### C BC #### [facility] [address] [place] [address] Dr. Dana Angulo ALP [Catalytic activity/Vol] 70 U/L Normal 46-116 [facility] Comment on above: Performed By: #### C BC #### [facility] [address] [place] [address] Dr. Dana Angulo ALT [Catalytic activity/Vol] 22 U/L Normal 16-63 [facility] Comment on above: Performed By: #### C BC #### [facility] [address] [place] [address] Dr. Dana Angulo Anion gap [Moles/Vol] 13.5 mmol/L Normal [facility] Comment on above: Performed By: #### C BC #### [facility] [address] [place] [address] Dr. Dana Angulo AST [Catalytic activity/Vol] 25 U/L Normal 15-37 [facility] Comment on above: Performed By: #### C BC #### [facility] [address] [place] [address] Dr. Dana Angulo Bilirubin [Mass/Vol] 1.0 mg/dL Normal 0.2-1.0 [facility] Comment on above: Performed By: #### C BC #### [facility] [address] [place] [address] Dr. Dana Angulo Calcium [Mass/Vol] 9.7 mg/dL Normal 8.5-10.1 [facility] Comment on above: Performed By: #### C BC #### [facility] [address] [place] [address] Dr. Dana Angulo Chloride [Moles/Vol] 103 mmol/L Normal 98-107 [facility] Comment on above: Performed By: #### C BC #### [facility] [address] [place] [address] Dr. Dana Angulo CO2 [Moles/Vol] 25.1 mmol/L Normal 21.0-32.0 [facility] Comment on above: Performed By: #### C BC #### [facility] [address] [place] [address] Dr. Dana Angulo Creatinine [Mass/Vol] 1.07 mg/dL Normal 0.70-1.30 [facility] Comment on above: Performed By: #### C BC #### [facility] [address] [address] [address] Dana Angulo EGFR-AF [facility] >60 Normal >=60 [facility] Comment on above: Performed By: #### C BC #### [facility] [address] [address] [address] Dana Angulo EGFR-NON AF [facility] >60 Normal >=60 [facility] Comment on above: Performed By: #### C BC #### [facility] [address] [address] [address] Dana Angulo Globulin (S) [Mass/Vol] 3.0 g/dL Normal [facility] Comment on above: Performed By: #### C BC #### [facility] [address] [place] [address] Dr. Dana Angulo Glucose [Mass/Vol] 115 mg/dL Critically high 74-106 [facility] Comment on above: Performed By: #### C BC #### [facility] [address] [place] [address] Dr. Dana Angulo Potassium [Moles/Vol] 3.6 mmol/L Normal 3.5-5.1 [facility] Comment on above: Performed By: #### C BC #### [facility] [address] [place] [address] Dr. Dana Angulo Protein [Mass/Vol] 6.8 g/dL Normal 6.4-8.2 [facility] Comment on above: Performed By: #### C BC #### [facility] [address] [place] [address] Dr. Dana Angulo Sodium [Moles/Vol] 138 mmol/L Normal 136-145 [facility] Comment on above: Performed By: #### C BC #### [facility] [address] [place] [address] Dr. Dana Angulo Urea nitrogen [Mass/Vol] 39.0 mg/dL Critically high 7.0-18.0 [facility] Comment on above: Performed By: #### C BC #### [facility] [address] [place] [address] Dr. Dana Angulo Urea nitrogen/Creatinin e [Mass ratio] 36.4 mg/mg Normal [facility] Comment on above: Performed By: #### C BC #### [facility] [address] [place] [address] Dr. Dana Angulo PROTIMEon 12-18-2022 INR Coag (PPP) [Relative time] 2.15 {INR} Normal [facility] Comment on above: Performed By: #### P T, PTT #### [facility] [address] [place] [address] Dr. Dana Angulo INR GUIDELINES SEE BELOW Normal [facility] Comment on above: Result Comment: BETTINA RED INR: 2.0 - 3.0 CONDITIONS NOT LISTED BELOW 2.5 - 3.5 FOR PROSTHETIC HEART VALVE REPLACEMENT 2.5 - 3.5 RECURRENT THROMBOSIS Performed By: #### P T, PTT #### [facility] [address] [place] [address] Dr. Dana Angulo PT Coag (PPP) [Time] 21.8 s Critically high 9.0-11.6 [facility] Comment on above: Performed By: #### P T, PTT #### [facility] [address] [place] [address] Dr. Dana Angulo PTTon 12-18-2022 aPTT Coag (Bld) [Time] 35.3 s Normal 22.3-36.2 [facility] Comment on above: Performed By: #### P T, PTT #### [facility] [address] [place] [address] Dr. Dana Angulo TROPONIN, HIGH SENSITIVITYon 12-18-2022 HSTROP 37.2 pg/mL Normal 4.0-76.1 [facility] Comment on above: Result Comment: CUT- OFF POINTS HAVE BEEN ESTABLISHED BASED ON THE FOURTH UNIVERSAL DEFINITIONS OF MYOCARDIAL INFARCTION. THE UPPER REFERENCE LIMIT (URL) OF TROPONIN, DEFINED THE 99TH PERCENTILE OF cTnI DISTRIBUTION IN A REFERENCE POPULATION, HAS BEEN CONFIRMED THE DECISION THRESHOLD FOR MS DIAGNOSIS. Performed By: #### H STROPN #### [facility] [address] [place] [address] Dr. Dana Angulo HSTROP 39.8 pg/mL Normal 4.0-76.1 [facility] Comment on above: Result Comment: CUT- OFF POINTS HAVE BEEN ESTABLISHED BASED ON THE FOURTH UNIVERSAL DEFINITIONS OF MYOCARDIAL INFARCTION. THE UPPER REFERENCE LIMIT (URL) OF TROPONIN, DEFINED THE 99TH PERCENTILE OF cTnI DISTRIBUTION IN A REFERENCE POPULATION, HAS BEEN CONFIRMED THE DECISION THRESHOLD FOR MS DIAGNOSIS. Performed By: #### H STROPN #### [facility] [address] [place] [address] Dr. Dana Angulo URINE MICROSCOPIC ONLYon BACTERIA NONE SEEN Normal NONE SEEN [facility] Comment on above: Performed By: #### Marino KENYON UMICRO #### [facility] [address] [place] [address] Dr. Dana Angulo Bacteria identified Cx Nom (U) NOT INDICATED Normal [facility] Comment on above: Performed By: #### Marino KENYON UMICRO #### [facility] [address] [place] [address] Dr. Dana Angulo CAST NONE SEEN Normal NONE SEEN [facility] Comment on above: Performed By: #### Marino KENYON UMICRO #### [facility] [address] [place] [address] Dr. Dana Angulo Crystals LM Nom (Urine sed) NONE SEEN Normal NONE SEEN [facility] Comment on above: Performed By: #### Marino KENYON UMICRO #### [facility] [address] [place] [address] Dr. Dana Angulo Epithelial cells LM Ql (Urine sed) FEW Abnormal NONE SEEN /RARE [facility] Comment on above: Performed By: #### E KOSTAS UMICRO #### [facility] [address] [place] [address] Dr. Dana Angulo MUCOUS NONE SEEN Normal NONE SEEN [facility] Comment on above: Performed By: #### E KOSTAS UMICRO #### [facility] [address] [place] [address] Dr. Dana Angulo RBC NONE SEEN Abnormal 0-2 [facility] Comment on above: Performed By: #### E HUMBERTO KENYON #### [facility] [address] [address] [address] Dana Angulo WBC 2-5 Abnormal NONE SEEN [facility] Comment on above: Performed By: #### E HUMBERTO KENYON #### [facility] [address] [place], [place] [address] Dr. Dana Angulo US SINGLE QUAD RT [...] DOMINIQUE JAUREGUI Date: 2022-12-18 13:05 Normal [facility] BNPon 11-11-2022 Natriuretic peptide B (Bld) [Mass/Vol] 2364.0 pg/mL Critically high <=1,800.0 [facility] Comment on above: Performed By: #### H ASHISH #### [facility] [address] [address] [address] Dana Angulo BUNon 11-11-2022 Urea nitrogen [Mass/Vol] 18.0 mg/dL Normal 7.0-18.0 [facility] Comment on above: Performed By: #### H ASHISH #### [facility] [address] [address] [address] Dana Angulo CBC AUTO DIFFon 11-11-2022 BASO # 0.0 103/ul Normal 0.0-0.1 [facility] Comment on above: Performed By: #### C BC #### [facility] [address] [address] [address] Dana Angulo Basophils/100 WBC (Bld) 0.6 % Normal 0.2-2.0 [facility] Comment on above: Performed By: #### C BC #### [facility] [address] [place] [address] Dr. Dana Angulo EO # 0.1 103/ul Normal 0.0-0.7 [facility] Comment on above: Performed By: #### C BC #### [facility] [address] [place] [address] Dr. Dana Angulo Eosinophils/100 WBC (Bld) 1.3 % Normal 0.9-7.0 [facility] Comment on above: Performed By: #### C BC #### [facility] [address] [place] [address] Dr. Dana Angulo Erythrocyte distribution width (RBC) [Ratio] 13.9 % Normal 11.0-15.0 [facility] Comment on above: Performed By: #### C BC #### [facility] [address] [place] [address] Dr. Dana Angulo Hematocrit (Bld) [Volume fraction] 36.2 % Critically low 42.0-54.0 [facility] Comment on above: Performed By: #### C BC #### [facility] [address] [address] [address] Dana Angulo Hemoglobin (Bld) [Mass/Vol] 11.4 g/dL Critically low 14.0-18.0 [facility] Comment on above: Performed By: #### C BC #### [facility] [address] [place] [address] Dr. Dana Angulo IG # 0.02 10e3/ul Normal 0.00-0.03 [facility] Comment on above: Performed By: #### C BC #### [facility] [address] [place] [address] Dr. Dana Angulo IG % 0.3 % Normal 0.0-0.5 [facility] Comment on above: Performed By: #### C BC #### [facility] [address] [place] [address] Dr. Dana Angulo LYMPH # 1.4 103/ul Normal 1.2-3.8 [facility] Comment on above: Performed By: #### C BC #### [facility] [address] [place] [address] Dr. Dana Angulo Lymphocytes/100 WBC (Bld) 19.8 % Critically low 20.5-60.0 [facility] Comment on above: Performed By: #### C BC #### [facility] [address] [place] [address] Dr. Dana Angulo MANUAL DIFF REQ NO Normal [facility] Comment on above: Performed By: #### C BC #### [facility] [address] [place] [address] Dr. Dana Angulo MCH (RBC) [Entitic mass] 30.9 pg Normal 25.9-34.0 [facility] Comment on above: Performed By: #### C BC #### [facility] [address] [place] [address] Dr. Dana Angulo MCHC (RBC) [Mass/Vol] 31.5 g/dL Normal 29.9-35.2 [facility] Comment on above: Performed By: #### C BC #### [facility] [address] [place] [address] Dr. Dana Angulo MCV (RBC) [Entitic vol] 98.1 fL Critically high 80.0-94.0 [facility] Comment on above: Performed By: #### C BC #### [facility] [address] [place] [address] Dr. Dana Angulo MONO # 0.5 103/ul Normal 0.3-0.8 [facility] Comment on above: Performed By: #### C BC #### [facility] [address] [place] [address] Dr. Dana Angulo Monocytes/100 WBC (Bld) 6.9 % Normal 1.7-12.0 [facility] Comment on above: Performed By: #### C BC #### [facility] [address] [address] [address] Dana Angulo NEUT # 5.1 103/ul Normal 1.4-6.5 [facility] Comment on above: Performed By: #### C BC #### [facility] [address] [place] [address] Dr. Dana Angulo Neutrophils/100 WBC (Bld) 71.1 % Normal 43.0-75.0 [facility] Comment on above: Performed By: #### C BC #### [facility] [address] [place] [address] Dr. Dana Angulo Platelet mean volume (Bld) [Entitic vol] 9.4 fL Critically low 9.5-13.5 [facility] Comment on above: Performed By: #### C BC #### [facility] [address] [place] [address] Dr. Dana Angulo PLT 164 103/ul Normal 150-450 [facility] Comment on above: Performed By: #### C BC #### [facility] [address] [place] [address] Dr. Dana Angulo RBC 3.69 106/ul Critically low 4.70-6.10 The [facility] Comment on above: Performed By: #### C BC #### [facility] [address] [place] [address] Dr. Dana Angulo WBC 7.1 103/ul Normal 4.0-11.0 [facility] Comment on above: Performed By: #### C BC #### [facility] [address] [place] [address] Dr. Dana Angulo CREATININEon 11-11-2022 Creatinine [Mass/Vol] 1.10 mg/dL Normal 0.70-1.30 [facility] Comment on above: Performed By: #### H STROPN #### [facility] [address] [address] [address] Dana Angulo EGFR-AF [facility] >60 Normal >=60 [facility] Comment on above: Result Comment: Prev iously reported as: >77 On 11/11/2022 10:45 By [email or web address] Previously reported as: (blank) On 11/11/2022 10:44 By BL3 Performed By: #### H STROPN #### [facility] [address] [address] [address] Dana Angulo EGFR-NON AF [facility] >60 Normal >=60 [facility] Comment on above: Result Comment: Prev iously reported as: >64 On 11/11/2022 10:45 By [email or web address] Previously reported as: (blank) On 11/11/2022 10:44 By BL3 Performed By: #### H STROPN #### [facility] [address] [place] [address] Dr. Dana Angulo CULTURE URINEon 11-11-2022 CULTURE URINE Culture Observations : NO GROWTH. Normal [facility] Comment on above: Performed By: #### C BC #### [facility] [address] [place] [address] Dr. Dana Angulo ELECTROLYTESon 11-11-2022 Anion gap [Moles/Vol] 12.7 mmol/L Normal [facility] Comment on above: Performed By: #### H STROPN #### [facility] [address] [place] [address] Dr. Dana Angulo Chloride [Moles/Vol] 103 mmol/L Normal 98-107 [facility] Comment on above: Performed By: #### H STROPN #### [facility] [address] [place] [address] Dr. Dana Angulo CO2 [Moles/Vol] 29.0 mmol/L Normal 21.0-32.0 [facility] Comment on above: Performed By: #### H STROPN #### [facility] [address] [place] [address] Dr. Dana Angulo Potassium [Moles/Vol] 4.7 mmol/L Normal 3.5-5.1 [facility] Comment on above: Performed By: #### H STROPN #### [facility] [address] [address] [address] Dana nAgulo Sodium [Moles/Vol] 140 mmol/L Normal 136-145 [facility] Comment on above: Performed By: #### H STROPN #### [facility] [address] [address] [address] Dana Angulo GLYCOHEMOGLOBIN A1Con 2021 ADA RECOMMENDATION SEE BELOW Normal [facility] Comment on above: Result Comment: ADA RECOMMENDED LIMIT 4.0 - 6.0 ADA THERAPEUTIC TARGET < 7.0 ACTION SUGGESTED > 7.0 Performed By: #### H STROPN #### [facility] [address] [address] [address] Dana Angulo Glucose [Mass/Vol] 120 mg/dL Normal [facility] Comment on above: Performed By: #### H STROPN #### [facility] [address] [address] [address] Dana Angulo HbA1c (Bld) [Mass fraction] 5.8 % Normal 4.5-6.2 [facility] Comment on above: Performed By: #### H STROPN #### [facility] [address] [place] [address] Dr. Dana Angulo LIPID PROFILEon 11-11-2022 CHOL-HDL RATIO NORM SEE BELOW Normal [facility] Comment on above: Result Comment: 3.3 - 4.4 LOW RISK 4.4 - 7.1 AVERAGE RISK 7.1 - 11.0 MODERATE RISK >11.0 HIGH RISK Performed By: #### H STROPN #### [facility] [address] [address] [address] Dana Angulo Cholesterol [Mass/Vol] 91 mg/dL Normal <=200 [facility] Comment on above: Performed By: #### H STROPN #### [facility] [address] [address] [address] Dana Angulo Cholesterol in HDL [Mass/Vol] 49 mg/dL Normal 40-60 [facility] Comment on above: Performed By: #### H STROPN #### [facility] [address] [address] [address] Dana Angulo Cholesterol in LDL [Mass/Vol] 29.4 mg/dL Normal [facility] Comment on above: Performed By: #### H STROPN #### [facility] [address] [address] [address] Dana Angulo Cholesterol.total/ Cholesterol in HDL [Mass ratio] 1.9 {ratio} Normal [facility] Comment on above: Performed By: #### H STROPN #### [facility] [address] [address] [address] Dana Angulo HDL NORMAL > or = 60 mg/dl - LO W CARDIOVASCULAR RISK <40 mg/dl - HIGH CARDIOVASCULAR RISK Normal [facility] Comment on above: Performed By: #### H STROPN #### [facility] [address] [address] [address] Dana Angulo LDL CALC NORMAL SEE BELOW Normal [facility] Comment on above: Result Comment: <100 mg/dl OPTIMAL 100 - 129 mg/dl NEAR OR ABOVE OPTIMAL 130 - 159 mg/dl BORDERLINE HIGH 160 - 189 mg/dl HIGH >190 mg/dl VERY HIGH Performed By: #### H STROPN #### [facility] [address] [address] [address] Dana Angulo Triglyceride [Mass/Vol] 63 mg/dL Normal <=150 [facility] Comment on above: Performed By: #### H STROPN #### [facility] [address] [address] [address] Dana Angulo VLDL CALC 12.6 mg/dL Normal [facility] Comment on above: Performed By: #### H STROPN #### [facility] [address] [address] [address] Dana Agnulo LIVER PROFILEon 11-11-2022 Albumin [Mass/Vol] 3.7 g/dL Normal 3.4-5.0 [facility] Comment on above: Performed By: #### H STROPN #### [facility] [address] [address] [address] Dana Angulo Albumin/Globulin [Mass ratio] 1.2 {ratio} Normal [facility] Comment on above: Performed By: #### H STROPN #### [facility] [address] [address] [address] Dana Angulo ALP [Catalytic activity/Vol] 68 U/L Normal 46-116 [facility] Comment on above: Performed By: #### H STROPN #### [facility] [address] [address] [address] Dana Angulo ALT [Catalytic activity/Vol] 20 U/L Normal 16-63 [facility] Comment on above: Performed By: #### H STROPN #### [facility] [address] [address] [address] Dana Angulo AST [Catalytic activity/Vol] 21 U/L Normal 15-37 [facility] Comment on above: Performed By: #### H STROPN #### [facility] [address] [address] [address] Dana Angulo BILI, CONJUGATED 0.3 mg/dL Critically high 0.0-0.2 [facility] Comment on above: Performed By: #### H STROPN #### [facility] [address] [address] [address] Dana Angulo Bilirubin [Mass/Vol] 0.9 mg/dL Normal 0.2-1.0 [facility] Comment on above: Performed By: #### H STROPN #### [facility] [address] [address] [address] Dana Angulo Globulin (S) [Mass/Vol] 3.1 g/dL Normal [facility] Comment on above: Performed By: #### H STROPN #### [facility] [address] [address] [address] Dana Angulo Protein [Mass/Vol] 6.8 g/dL Normal 6.4-8.2 [facility] Comment on above: Performed By: #### H STROPN #### [facility] [address] [address] [address] Dana Angulo TSHon 11-11-2022 TSH 3.426 uIU/mL Normal 0.358-3.740 [facility] Comment on above: Performed By: #### H STROPN #### [facility] [address] [address] [address] Dana Angulo UA (CLEAN/CATCH) MED[employer] TECHNICIAN/MICRO I F IND.on 11-11-2022 Bilirubin Ql (U) Negative Normal NEGATIVE [facility] Comment on above: Performed By: #### U ACSIND, UMICRO #### [facility] [address] [address] [address] Dana Angulo Clarity (U) CLEAR Normal CLEAR [facility] Comment on above: Performed By: #### U ACSIND, UMICRO #### [facility] [address] [place] [address] Dr. Dana Angulo Color (U) YELLOW Normal YELLOW [facility] Comment on above: Performed By: #### U ACSIND, UMICRO #### [facility] [address] [place] [address] Dr. Dana Angulo Glucose Ql (U) Negative Normal NEGATIVE [facility] Comment on above: Performed By: #### U ACSIND, UMICRO #### [facility] [address] [address] [address] Dana Angulo Hemoglobin Ql (U) Negative Normal NEGATIVE [facility] Comment on above: Performed By: #### U ACSIND, UMICRO #### [facility] [address] [place] [address] Dr. Dana Angulo Ketones Ql (U) TRACE Abnormal NEGATIVE [facility] Comment on above: Performed By: #### U ACSIND, UMICRO #### [facility] [address] [address] [address] Dana Angulo LEUKOCYTES SMALL Abnormal NEGATIVE [facility] Comment on above: Performed By: #### U ACSIND, UMICRO #### [facility] [address] [place] [address] Dr. Dana Angulo Nitrite Ql (U) Negative Normal NEGATIVE [facility] Comment on above: Performed By: #### U ACSIND, UMICRO #### [facility] [address] [place] [address] Dr. Dana Angulo pH (U) 6.0 [pH] Normal 5-9 [facility] Comment on above: Performed By: #### U ACSREGGIE UMICRO #### [facility] [address] [place] [address] Dr. Dana Angulo SPEC GRAVITY 1.015 Normal 1.005-<=1.02 5 [facility] Comment on above: Performed By: #### U ACSREGGIE UMICRO #### [facility] [address] [place] [address] Dr. Dana Angulo UA PROTEIN TRACE Normal NEGATIVE/ TRACE [facility] Comment on above: Performed By: #### U ACSREGGIE UMICRO #### [facility] [address] [place] [address] Dr. Dana Angulo UR MICRO IND INDICATED Normal [facility] Comment on above: Performed By: #### U ACSREGGIE UMICRO #### [facility] [address] [place] [address] Dr. Dana Angulo Urobilinogen Qn (U) 1.0 {Delia'U}/dL Normal 0.2 - 1.0 [facility] Comment on above: Performed By: #### U ACSREGGIE ICRO #### [facility] [address] [place] [address] Dr. Dana Angulo URINE MICROSCOPIC ONLYon BACTERIA TRACE Abnormal NONE SEEN [facility] Comment on above: Performed By: #### U ACSREGGIE UMICRO #### [facility] [address] [place] [address] Dr. Dana Angulo Bacteria identified Cx Nom (U) INDICATED Normal [facility] Comment on above: Performed By: #### U ACSREGGIE UMICRO #### [facility] [address] [place] [address] Dr. Dana Angulo CAST SEEN Abnormal NONE SEEN [facility] Comment on above: Performed By: #### U ACSREGGIE UMICRO #### [facility] [address] [place] [address] Dr. Dana Angulo Crystals LM Nom (Urine sed) NONE SEEN Normal NONE SEEN [facility] Comment on above: Performed By: #### U ACSIND, UMICRO #### [facility] [address] [address] [address] Dana Angulo Epithelial cells LM Ql (Urine sed) RARE Normal NONE SEEN /RARE [facility] Comment on above: Performed By: #### U ACSIND, UMICRO #### [facility] [address] [address] [address] Dana Angulo MUCOUS NONE SEEN Normal NONE SEEN [facility] Comment on above: Performed By: #### U ACSIND, UMICRO #### [facility] [address] [address] [address] Dana Angulo RBC 2-5 Abnormal 0-2 [facility] Comment on above: Performed By: #### U ACSIND, UMICRO #### [facility] [address] [place] [address] Dr. Dana Angulo WBC 2-5 Abnormal NONE SEEN [facility] Comment on above: Performed By: #### U ACSIND, UMICRO #### [facility] [address] [address] [address] Dana Angulo VITAMIN D 25 OHon 11-11-2022 VIT D 25-OH 30.2 ng/mL Normal [facility] Comment on above: Performed By: #### C BC #### [facility] [address] [place] [address] Dr. Dana Angulo VIT D RANGES SEE BELOW Normal [facility] Comment on above: Result Comment: <20 ng/mL Vit D deficient 20 - <30 ng/mL Vit D insufficient 30 - 100 ng/mL Vit D sufficient >100 ng/mL Potential Toxicity Performed By: #### C BC #### [facility] [address] [place] [address] Dr. Dana Angulo Office Visiton 10-29-2022 Follow-up visit [id number] Calin Boyd 1935 M Date Provider Department Center 10/29/2022 DRAGAN KRUSE [facility] No family history on file Level of Service:99220 HI OFFICE/OUTPATIENT ESTABLISHED MOD MDM 30-39 MIN Reason for Visit and Comments: Coronary Artery Disease [187] Atrial Fibrillation [80] Valve Disorder [3372] Congestive Heart Failure [127] Normal [facility] Cardiovascular Lab Reporton 06-25-2019 Cardiovascular Lab Report [facility] Patient Name: [facility] Alvin Sanchez MR #: [id number] Department of Physician: Geetha Blankenship M.D. Division of Service Date: 06/24/2019 Cardiology Birthdate: 1935 Adult Cardiovascular Room #: Services [facility] [address] [place] [address] Cardiovascular Laboratory Report FINAL IMPRESSION: 1. Normal right and left ventricular filling pressures. 2. Preserved cardiac output and cardiac index. 3. Mild pulmonary artery hypertension. 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 He has been experiencing shortness of breath [...] modified Seldinger technique and ultrasound guidance, a 5-Bolivian micropuncture was placed in right internal jugular vein. This was upsized to a regular 6-Bolivian pinnacle sheath and a 6-Bolivian Jackson was used for right heart catheterization. [...] Lucas M.D. Date Trans: 06/25/2019 05:12 A/deniz [id number] cc: Rio Lal D.O. [address] [place] [address] Normal The [facility] Neurosurgery Office/Clinic N saul 04-13-2018 Neurosurgery Office/Clinic [...] CAMACHO, Arsalan Owen 04/13/18 15:39 EDT Normal [facility] CT Spine Lumbar w/ Contrasto n 04-06-2018 [...] Further degenerative changes are detailed above.Radiation Dose Estimate:CTDI(mGy):0.36356 0 / / / kVp:120.359860 / mAs:0.896147 / / / DLP(mGy-cm):5.304829Zhtg Part:CTDI(mGy):28.455998 / / / kVp:120.248951 / mAs:294.334645 / / / DLP(mGy-cm):632.926327Khkk Part: Final Dictated by: Naldo Aguilar MD, MDictated DT/TM: 04.06.2018 11:34 amSigned by: Naldo Aguilar MD MSigned (Electronic Signature): 04.06.2018 3:49 pmTranscribed DT/TM: 04.06.2018 1:29 pm(If Report Is Signed, Electronically Signed in Other Vendor System) Normal [facility] Inpatient Clinical Summaryon 04-06-2018 Inpatient Clinical Summary [address] [address]Amtqmhbo SummaryPerson InformationName: Alvin Boyd Age: 82 Years : 1935Sex: Male PCP: Rio Lal DOMarital Status: PCP: [id number]:White Ethnicity:Not or Language:EnglishMRN: [id number] Visit Id: Reason:stenosis, bilateral leg pain Speciality: Acuity:Enc Type: Outpatient in a Bed Med Service: Radiology-Diagnostic ImagingArrival:04/06/2018 08:16:35 Discharge: Dispo Type:Address:[address] [place] [id number]:Discharged To:Home Treatments:Devices/Equipme nt:Professional Skilled Services:Special Services and [...] Assoc 04/14/2018 14:30:00 04/14/2018 15:00:00 Confirmed Normal [facility] PTon 04-06-2018 INR Coag RelTime (PPP) 1.1 {INR} Normal <=3.5 [facility] Comment on above: Result Comment: INR has no normal range. INR Therapeutic range is:2.0-3.0 (AF, CVA, TIAs, DVT prophylaxis, acute DVT)2.5-3.5 ([facility] heart valves, recurrent thrombosis/emboli) Performed By: #### P TINR ####[place] [address] Prothrombin time (PT) Coag time (PPP) 11.3 s Normal 9.1-11.9 [facility] Comment on above: Performed By: #### P TINR ####[address] [address] PTTon 04-06-2018 aPTT 24.0 s Normal 21.0-28.8 [facility] Comment on above: Performed By: #### P TT ####[address] [address] Platelet Counton 04-06-2018 Platelets 135 x10*3/mcL Low 150-350 [facility] Comment on above: Performed By: #### P LTS ####[address] [address] XR Myelography Lumbosacral S pineon 04-06-2018 XR [...] Electronically Signed in Other Vendor System) Normal [facility] XR Spine Lumbosacral 2 or 3 Viewson [...] Electronically Signed in Other Vendor System) Normal [facility] Neurosurgery Office/Clinic N oteon 03-29-2018 Neurosurgery Office/Clinic Note Chief Complaint FLAME GOUGER-BackHistory of Present Illness 82 year old male [...] 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 Upon completion [...] JOE Dragan Cinthia 03/29/18 12:41 EDT Normal [facility] Pain Management Office/Clini c Noteon 03-16-2018 Pain [...] Injections: 11-09-17 Date Surgery: n/a Frequency PT: [id number] Effective PT: not much help Effective Injections: [...] by Myrna Reyes CNP 03/16/18 13:37 EDT [facility] Pain Management Office/Clini c Noteon 02-19-2018 Pain [...] Injections: 11-09-17 Date Surgery: n/a Frequency PT: [id number] Effective PT: not much help Effective Injections: [...] DIAZ Myrna Gardnere 02/19/18 12:56 EDT Normal [facility] History and Physicalon 01-13 History and Physical [...] Johnathan Guzman MD 01/13/18 15:09 EST Normal [facility] Pain Management Procedure No glenn 01-13-2018 Pain [...] cl CAMACHO, Johnathan 01/13/18 15:09 EST Normal [facility] Ambulatory Patient Education on 01-06-2018 Ambulatory Patient [...] the next day. You must have a sales route driver helper that will wait in the Pain Management [...] procedure: Please arrive at: Please check in at:Railroad Inspector Desk in the Pain Management [id number] [facility], 3rd floor [facility] OHReception Desk inside the Emergency Room at [address]*Due to the sedation given for the procedure, you will not be permitted to drive until the following day. For this reason, you will need to bring a sales route driver helper to stay with you and drive you [...] Hibiclens (a medicated soap) prior to your surgery.*[place] teeth, rinse with water, but do not swallow.*Please wear comfortable clothing, without metal zippers or snaps. Do not wear contact lenses. Do wear your hearing aid. Please leave all jewelry and valuables at home; you may wear your wedding ring.*Please note that due to limited space, your family member/sales route driver helper will need to wait in the waiting area while you are in the procedure area. Absolutely no children should attend an appointment for an injection.*All prescription refills must be requested in advance. No prescription refills requested on the day of a procedure will be available until at least 3 business days later.*If your procedure is done in [place], you will be receiving a statement from [place] [facility] for the professional (physician's) billing fees and for the technical (hospital's) fees and a separate statement for the anesthesia provider. If your procedure is done in [place], you will be receiving a statement from [facility] for professional (physician's) billing fees, technical [...] questions or concerns, please contact the appropriate office:[facility] ([place] office) [phone] ([place] office) [phone] follow up appointment is scheduled for:AT:[facility] [address] [facility], 3rd floor [facility], [facility] Management [address] [facility], [address], [facility] [address] [facility], 2nd floor clinic, [address]?WHAT TO EXPECT AFTER THE PROCEDURE:Please note [...] increase pain. (for example, bending, twisting, walking, air breaker operator).Try to avoid pain medication or sleeping during [...] call the office immediately if noted.Contact stimulator sales representative livestock with questions regarding stimulator use.(see rep card)Spinal [...] and call office immediately if noted.Contact stimulator sales representative livestock with questions regarding stimulator use.(see rep card)Spinal [...] drainage and call immediately if noted.Contact stimulator sales representative livestock with questions regarding stimulator use.(see rep card) Normal [facility] Pain Management Office/Clini c Noteon 01-06-2018 Pain [...] PT: 01/16 Date Injections: 11-09-17 Frequency PT: [id number] Effective PT: not much help Effective Injections: [...] Myrna Reyes CNP 01/06/18 15:15 EST Normal [facility] Pain Management Office/Clini c Noteon 11-09-2017 Pain [...] Johnathan smallwood MD 11/09/17 09:27 EST Normal [facility] Procedure Noteon 11-09-2017 Procedure Note PROCEDURE: Bilateral [...] Johnathan Guzman MD 11/09/17 09:36 EST Normal [facility] Ambulatory Patient Education on 10-14-2017 Ambulatory Patient [...] procedure: Please arrive at: Please check in at:Railroad Inspector Desk in the Pain Management [id number] [place] [address], 3rd floor [facility] inside the Emergency Room at [address]*Due to the sedation given for the procedure, you will not be permitted to drive until the following day. For this reason, you will need to bring a sales route driver helper to stay with you and drive you [...] Hibiclens (a medicated soap) prior to your surgery.*[place] teeth, rinse with water, but do not swallow.*Please wear comfortable clothing, without metal zippers or snaps. Do not wear contact lenses. Do wear your hearing aid. Please leave all jewelry and valuables at home; you may wear your wedding ring.*Please note that due to limited space, your family member/sales route driver helper will need to wait in the waiting area while you are in the procedure area. Absolutely no children should attend an appointment for an injection.*All prescription refills must be requested in advance. No prescription refills requested on the day of a procedure will be available until at least 3 business days later.*If your procedure is done in [place], you will be receiving a statement from [facility] for the professional (physician's) billing fees and for the technical (hospital's) fees and a separate statement for the anesthesia provider. If your procedure is done in [place], you will be receiving a statement from [facility] for professional (physician's) billing fees, technical (hospital's) [...] questions or concerns, please contact the appropriate office:[facility] ([place] office) [phone] [facility] ([place] office) [phone] follow up appointment is scheduled for:AT:[facility] [address] [facility], 3rd floor [facility], [facility] [address] [facility], [address], [facility] [address] [facility], 2nd floor clinic, [facility] [address] [facility]?WHAT TO EXPECT AFTER THE PROCEDURE:Please [...] increase pain. (for example, bending, twisting, walking, air breaker operator).Try to avoid pain medication or sleeping during [...] call the office immediately if noted.Contact stimulator sales representative livestock with questions regarding stimulator use.(see rep card)Spinal [...] and call office immediately if noted.Contact stimulator sales representative livestock with questions regarding stimulator use.(see rep card)Spinal [...] drainage and call immediately if noted.Contact stimulator sales representative livestock with questions regarding stimulator use.(see rep card)Nerve Root InjectionThe nerve root injection is a procedure where a local anesthetic and steroid solution are administered near the nerve as it exits the spinal canal. This is done under fluoroscopy (watching under live x-ray) to deliver the drug to the precise location.Am I a candidate for a nerve root injection?At [facility], the provider examining you [...] procedure. You are required to have a sales route driver helper remain in the facility before and during [...] home the morning of the procedure. [facility] Office/Clini c Noteon 10-14-2017 Pain [...] Chiropractor: 11/2016 Date PT: 01/16 Frequency PT: [id number] Effective PT: not much help Comments TENS: [...] Myrna Reyes CNP 10/14/17 11:44 EST [facility] History and Physicalon 09-09 History and Physical [...] Johnathan Guzman MD 09/09/17 11:17 EDT [facility] Comment on above: Order Comment: This dictation [...] Johnathan smallwood MD 09/09/17 11:20 EDT [facility] Procedure Noteon 09-09-2017 Procedure Note PROCEDURE: Radiofreq [...] Johnathan smallwood MD 09/09/17 11:21 EDT [facility] History and Physicalon 08-26 History and Physical [...] cl CAMACHO, Johnathan 08/26/17 14:38 EDT [facility] History and Physical History of Present Illness [...] smallwood MD, Johnathan 08/26/17 15:42 EDT [facility] Procedure Noteon 08-26-2017 Procedure Note PROCEDURE: Radiofreq [...] cl CAMACHO, Johnathan 08/26/17 15:42 EDT [facility] Ambulatory Patient Education on 07-29-2017 Ambulatory Patient [...] procedure: Please arrive at: Please check in at:Railroad Inspector Desk in the Pain Management [id number] [place] [address], 3rd floor [facility] inside [facility] Room at [address]*Due to the sedation given for the procedure, you will not be permitted to drive until the following day. For this reason, you will need to bring a sales route driver helper to stay with you and drive you [...] Hibiclens (a medicated soap) prior to your surgery.*[place] teeth, rinse with water, but do not swallow.*Please wear comfortable clothing, without metal zippers or snaps. Do not wear contact lenses. Do wear your hearing aid. Please leave all jewelry and valuables at home; you may wear your wedding ring.*Please note that due to limited space, your family member/sales route driver helper will need to wait in the waiting area while you are in the procedure area. Absolutely no children should attend an appointment for an injection.*All prescription refills must be requested in advance. No prescription refills requested on the day of a procedure will be available until at least 3 business days later.*If your procedure is done in [place], you will be receiving a statement from [facility] for the professional (physician's) billing fees and for the technical (hospital's) fees and a separate statement for the anesthesia provider. If your procedure is done in [place], you will be receiving a statement from [facility] for professional (physician's) billing fees, technical (hospital's) [...] or concerns, please contact the appropriate office:[facility] ([place] office) [phone] [facility] ([place] office) [phone] follow up appointment is scheduled for:AT:[facility] [address] [facility], 3rd floor [facility], [facility] [address] [facility], [address], [facility] [address], 2nd floor clinic, [place] [id number] [facility]?WHAT TO EXPECT AFTER THE PROCEDURE:Please [...] increase pain. (for example, bending, twisting, walking, air breaker operator).Try to avoid pain medication or sleeping during [...] call the office immediately if noted.Contact stimulator sales representative livestock with questions regarding stimulator use.(see rep card)Spinal [...] and call office immediately if noted.Contact stimulator sales representative livestock with questions regarding stimulator use.(see rep card)Spinal [...] drainage and call immediately if noted.Contact stimulator sales representative livestock with questions regarding stimulator use.(see rep card)Radiofrequency [...] sedation. You are required to have a sales route driver helper remain in the facility before and during the procedure, then drive you home following the procedure.What should I expect after the procedure?You are required to have a sales route driver helper remain in the waiting room of [facility] during the procedure and drive you home [...] physician regarding your other diabetic medications. [facility] Office/Clini c Noteon 07-29-2017 Pain [...] Chiropractor: 11/2016 Date PT: 01/16 Frequency PT: [id number] Effective PT: not much help Comments TENS: [...] CNP Myrna Baez 07/29/17 13:55 EDT [facility] History and Physicalon 06-29 History and Physical [...] Johnathan smallwood MD 06/29/17 13:18 EDT [facility] Procedure Noteon 06-29-2017 Procedure Note PROCEDURE: Bilateral [...] The patient was turned back onto the [facility] and taken to recovery in stable condition to be discharged per criteria.Electronically signed by B Johnathan smallwood MD 06/29/17 14:34 EDT [facility] History and Physicalon 06-15 History and Physical [...] Johnathan Guzman MD 06/15/17 16:22 EDT [facility] Procedure Noteon 06-15-2017 Procedure Note PROCEDURE: Bilateral [...] The patient was turned back onto the [facility] and taken to recovery in stable condition to be discharged per criteria.Electronically signed by B Johnathan smallwood MD 06/15/17 16:23 EDT [facility] Ambulatory Patient Education on 05-27-2017 Ambulatory Patient [...] have a lot of pain?Your physician at [facility] will do everything possible [...] procedure. You are required to have a sales route driver helper remain in the facility before and during [...] procedure: Please arrive at: Please check in at:Railroad Inspector Desk in the Pain Management [id number] [facility], 3rd floor [facility] [place] Des[place] inside the Emergency Room at [place] [address], [place]*Due to the sedation given for the procedure, you will not be permitted to drive until the following day. For this reason, you will need to bring a sales route driver helper to stay with you and drive you [...] Hibiclens (a medicated soap) prior to your surgery.*[place] teeth, rinse with water, but do not swallow.*Please wear comfortable clothing, without metal zippers or snaps. Do not wear contact lenses. Do wear your hearing aid. Please leave all jewelry and valuables at home; you may wear your wedding ring.*Please note that due to limited space, your family member/sales route driver helper will need to wait in the waiting area while you are in the procedure area. Absolutely no children should attend an appointment for an injection.*All prescription refills must be requested in advance. No prescription refills requested on the day of a procedure will be available until at least 3 business days later.*If your procedure is done in [place], you will be receiving a statement from [facility] for the professional (physician's) billing fees and for the technical (hospital's) fees and a separate statement for the anesthesia provider. If your procedure is done in [place], you will be receiving a statement from [facility] for professional (physician's) billing fees, technical (hospital's) [...] questions or concerns, please contact the appropriate office:[facility] ([place] office) [phone] [facility] ([place] office) [phone] follow up appointment is scheduled for:AT:[facility] [address] [facility], 3rd floor [facility], [facility] [address] [facility], [address], [address], 2nd floor clinic, [address]?WHAT TO EXPECT AFTER THE PROCEDURE:Please note [...] increase pain. (for example, bending, twisting, walking, air breaker operator).Try to avoid pain medication or sleeping during [...] call the office immediately if noted.Contact stimulator sales representative livestock with questions regarding stimulator use.(see rep card)Spinal [...] and call office immediately if noted.Contact stimulator sales representative livestock with questions regarding stimulator use.(see rep card)Spinal [...] drainage and call immediately if noted.Contact stimulator sales representative livestock with questions regarding stimulator use.(see rep card) [facility] Office/Clini c Noteon 05-27-2017 Pain [...] Chiropractor: 11/2016 Date PT: 01/16 Frequency PT: [id number] Effective PT: not much help Comments TENS: [...] created on his/her behalf by a trained healthcare or medical. The creation of this document is based on the provider?s statements to the healthcare or medical.Problem List/Past Medical History Ongoing Acid reflux Angina [...] Myrna infante CNP 05/27/2017 10:22 EDT [facility] Encounters Encounter Date Encounter Type Care Provider Facility Start: 10-19-2023 End: 10-19-[address] [facility] Start: 04-08-2023 End: 04-08-[address] [facility] Start: 03-30-2023 End: 04-29-2023 ambulatory SHAIKH [...] Start: 10-29-2022 End: 10-29-2022 ambulatory DRAGAN SANTOS [facility] Start: 09-30-2022 End: 10-29-2022 ambulatory NOGUEIRA H FAWWAD Facility:[facility] Start: 09-01-2022 End: 09-29-2022 ambulatory NOGUEIRA H FAWWAD Facility:[facility] Start: 07-31-2022 End: 08-30-2022 ambulatory NOGUEIRA H FAWWAD Facility:[facility] Start: 06-30-2022 End: 07-30-2022 ambulatory NOGUEIRA H FAWWAD Facility:[facility] Start: 05-30-2022 End: 06-27-2022 ambulatory NOGUEIRA H FAWWAD Facility:[facility] Start: 06-24-2019 End: 06-25-2019 Patient encounter procedure RIO LAL Facility:[facility] Start: 06-21-2019 End: 06-27-2019 Patient encounter procedure GERBER PETER Facility:[facility] Start: 04-13-2018 End: 04-14-2018 Ambulatory Rio Lal Facility:[facility] Start: 04-06-2018 End: 04-06-2018 Ambulatory RIO LAL Facility:[facility] Start: 03-29-2018 End: 03-30-2018 Ambulatory DRAGAN MORLEY Facility:Neurosurgic al [facility] Start: 03-16-2018 End: 03-17-2018 Ambulatory MYRNA DENIS AUXIER Facility:[facility] [place] Start: 02-19-2018 End: 02-20-2018 Ambulatory RIO LAL Facility:[facility] [place] Start: 01-13-2018 End: 01-13-2018 Ambulatory JOHNATHAN LAYAOS Facility:[facility] Start: 01-06-2018 End: 01-07-2018 Ambulatory MYRNA CAST Facility:[facility] [place] Start: 11-09-2017 End: 11-09-2017 Ambulatory JOHNATHAN LAYAOS Facility:[facility] Start: 10-14-2017 End: 10-15-2017 Ambulatory MYRNA DENIS CAST Facility:[facility] [place] Start: 09-09-2017 End: 09-09-2017 Ambulatory JOHNATHAN LAYAOS Facility:[facility] Start: 08-26-2017 End: 08-26-2017 Ambulatory JOHNATHAN LAYAOS Facility:[facility] Start: 07-29-2017 End: 07-30-2017 Ambulatory MYRNA CAST Facility:[facility] [place] Start: 06-29-2017 End: 06-29-2017 Ambulatory JOHNATHAN BAKOS Facility:[facility] Start: 06-15-2017 End: 06-15-2017 Ambulatory JOHNATHAN LAYAOS Facility:[facility] Start: 05-27-2017 End: 05-28-2017 Ambulatory MYRNA CAST Facility:[facility] [place] Payers Date Payer Category Payer Medicare 1958 Medicare [id number] 1958 Unknown [id number] 1958 Unknown [id number] 1936 Unknown [id number] 2.16.8 [id number] 1936 Unknown [id number] 2.16.8 [id number] 1936 Unknown [id number] 2.16.84 [id number] 1936 Unknown [id number] 2.16.84 [id number] 1936 Unknown [id number] 2.16.84 [id number] 1936 Unknown [id number] 2.16.84 0.1.140615.3.579.2.593 1936 Unknown [id number] 2.16.84 [id number] 1936 Unknown [id number] 2.16.84 [id number] 1936 Unknown [id number] 2.16.84 0.1.262769.3.579.2.593 1936 Unknown [id number] 2.16.84 [id number] 1936 Unknown [id number] 2.16.84 0.1.567129.3.579.2.593 1936 Unknown [id number] 2.16.84 0.1.031722.3.579.2.593 1936 Unknown [id number] 2.16.84 0.1.445195.3.579.2.593 1936 Unknown [id number] 2.16.84 [id number] 1936 Unknown [id number] 2.16.84 [id number] Medicare [id number] Clinical Notes 10-29-2022 to 10-19-2023 Note Date [...] Positive for arthritis. Gastrointestinal: Positive for diarrhea. 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 Follow up with copake anticoagulation for INR atorvastatin (Lipitor) 40 mg [...] no difficulty hear (more content not included)... [facility] 04-08-2023 Note Patient here for 6 m [...] All other systems reviewed and are negative. [facility] 04-08-2023 Note [place] Electrophysiology Consult Note Reason for visit: 6-month follow-up HPI: Alivn Boyd is a 87 y.o. 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 [facility] 10-29-2022 Note [id number]= 5 Remains rate controlled with coreg and anticoagulation with jantoven Denied any bleeding tendencies [facility] 10-29-2022 Note Continue GDMT- lipit or, coreg, entresto, lasix [facility] II-III Currently euvolemic without exacerbation Overall pt is doing quite well No concerning symptoms today Monitor daily weights, I&O, fluid restriction 1.5-2L/day, renal function remains stable [facility] 10-29-2022 Note Continue GDMT- mario nue coreg, lipitor- no ASA with anticoagulation- jantoven [facility] 10-29-2022 Note Annual labs with PCP - Dr Gil Continue lipitor [facility] 10-29-2022 Note No concerning sympto ms today Will monitor with routine echo- or repeat echo with concerning symptoms [facility] 10-29-2022 Note [facility] CARDIOLOGY PROGR ESS NOTE [...] Gil Continue lipitor Coronary artery disease involving [place] coronary artery of [place] heart without angina pectoris Continue GDMT- continue coreg, lipitor- no ASA with anticoagulation- jantoven Acute on chronic systolic heart failure, NYHA class 2 (CMS/HCC) Continue GDMT- lipitor, coreg, entresto, lasix [facility] II-III Currently euvolemic without exacerbation Overall pt is doing quite well No concerning symptoms today Monitor daily weights, I&O, fluid restriction 1.5-2L/day, renal function remains stable Chronic atrial fibrillation (CMS/HCC) [id number]= 5 Remains rate controlled with coreg and anticoagulation with jantoven Denied any bleeding tendencies RTC 6 months or earlier if needed [facility] 10-29-2022 Note Patient here for 6 m [...] All other systems reviewed and are negative. [facility] 10-29-2022 Note Device check 2 Device functioning normal, 99% BI-V pacing 04/15/22- battery life 7 yrs, normal device function, no ventricular arrythmias, 100% Bi-V paced [facility] Summary Purpose Family History No Family History [...] section and content) DATE CREATED AUTHOR 05/19/2018 [facility] DATE CREATED AUTHOR AUTHOR'S ORGANIZ ATION 06/19/2020 [facility] DATE CREATED AUTHOR AUTHOR'S ORGANIZ ATION 05/08/2023 [facility] DATE CREATED AUTHOR AUTHOR'S ORGANIZ ATION 10/20/2023 [facility] FOR RECORDS PERTAINING TO PATIENTS WHO [...] BE BASED ON THE PRIMARY CLINICAL RECORDS. [employer] provides no warranty or guarantee of the accuracy or completeness of information in this document.
[2023-11-27] VITALS (9 sets, daily range): BP systolic 97–113; BP diastolic 58–59; PULSE 60; RESP 18–20; TEMP 36.3–36.9; O2SAT 90–99
--- NOTE | 2023-11-27 03:39 | W.PM.TELEPN ---
Progress Note: Subjective Subjective Interval history: CC: weakness, SOB PMH: this is 87 yo wm s patient's here with his from his home. He called EMS because of shortness of breath. He tells us these had a touch of emphysema and uses a BiPAP at night, he does not use oxygen during the daytime. The breathing got worse today. He does not have any heaviness pressure squeezing or discomfort in the chest. He does not have any swelling of his legs. He is running a fever here. He's received all the vaccines for Covid. Does not have nausea vomiting or diarrhea. Pulse oximetry eighty-seven percent on room air greatly improved with supplemental oxygen. Evaluation emergency room significant for hypoxia?corrected with 5 L of supplemental oxygen. Patient found to be febrile. Patient found to be dehydrated. Chest x-ray was negative for any acute findings. Viral testing negative. Patient doing better with IV resuscitation. Exam Narrative Exam Narrative: ROS: 1.General: no fever, chills, not in distress 2.HEENT: no COX, no blurry vision, no swallow problems, no nasal congestion, no sore throat 3.Pulmonary: no cough, SOB, wheezes 4.CVS: no CP, no palpitations, no GROSS, no SOB, no intermittent claudication 5.GI: no nausea, vomiting or diarrhea, no abdominal pain, no constipation, no hematemesis or hematochezia 6.: no renal colic, no hematuria, urinary frequency or urgency 7.Extremities: no edema 8.Neurological: no dizziness, vertigo, double or blurry vision, no no focal weakness, no paresthesia, no swallow or speech problems 9.Musculosceletal: no joint pains, no joint swelling, no back pain 10.Dermatological: no skin rashes, no lesions, no pruritus 11.Hematological: no bleeding, no hx/o clots 12.Endocrinological: no heat/cold intolerance, no hx/o diabetes 13.Psychiatric: no suicidal or homicidal thoughts Physical Exam: Not in distress, pleasant, hard of hearing,, cooperative, Head - atraumatic, eyes - pupils equal, round, reactive to light, extra ocular movement intact, MMM Neck - supple, thyroid not enlarged, LN not palpated Lungs -coarse breath sounds bilaterally CVS - heart sounds S1, S2, no additional murmurs gallop, regular rate and rhythm Gastrointestinal?abdomen is soft, non-tender, non-distended, no organomegaly, positive bowel sounds Extremities no clubbing, cyanosis or edema Neurological?cranial nerve II?XII grossly intact, no meningeal signs, no cerebellar signs, no sensory deficit Musculoskeletal - DJD related changes in multiple joints, no effusions, ROM preserved Dermatological - the skin dry, warm, no rashes Psychiatric?patient is AAO X3, patient has normal affect Constitutional Vital Signs, click to edit/add: Last Vital Signs Temp 98.2 F 11/26/23 21:16 Pulse 60 11/26/23 21:16 Resp 20 11/26/23 21:16 BP 106/65 11/26/23 21:16 Pulse Ox 93 L 11/26/23 21:16 O2 Del Method Nasal Cannula 11/26/23 21:16 O2 Flow Rate 5 11/26/23 21:16 Progress Note: Objective Labs Labs: Short CBC 11/26/23 Range/Units 18:25 WBC 8.4 (4.0-11.0) 10^3/uL Hgb 13.2 L (14.0-18.0) g/dL Hct 42.0 (42.0-54.0) % Plt Count 184 (150-450) 10^3/uL BMP 11/26/23 18:25 Sodium 140 Potassium 3.8 Chloride 104 Carbon Dioxide 26.8 BUN 45.0 H Creatinine 1.43 H Glucose 176 H Calcium 9.4 Liver Function 11/26/23 Range/Units 18:25 Total Bilirubin 1.1 H (0.2-1.0) mg/dL AST 24 (15-37) U/L ALT 30 (16-63) U/L Alkaline Phosphatase 71 (46-116) U/L Albumin 3.4 (3.4-5.0) g/dL Progress Note: A&P Assessment and Plan (1) Hypoxemia: Assessment and Plan: Most probably related to bronchitis Continue with oxygen supplementation Started on empiric, broad-spectrum antibiotics Follow-up results of the cultures (2) Fever: Assessment and Plan: As above Viral tests are negative (3) DVT (deep venous thrombosis): Assessment and Plan: Patient is taking Coumadin. Goal of INR 2?3. Pharmacy management (4) Pacemaker: Assessment and Plan: Defer to outpatient management (5) Dehydration: Assessment and Plan: I am going to hold off patient's diuretics Patient started on gentle, judicious IV fluid resuscitation Plan As the provider for the telehealth service, I attest that I introduced myself to the patient, provided my credentials, disclosed by location and determined that based on a review of the patient's chart and discussion with members of the patient's treatment team, telemedicine via real-time, 2 way, and interactive audio and video platform is an appropriate and effective means of providing the service. ?The patient and I mutually agree this visit is appropriate for telemedicine. ?[place] ?The encounter took approximately 35 minutes. ?The nurse was present during the entire time and I was able to move the stethoscope in appropriate directions. ?The patient was evaluated at the Hospital ? Portions of this note may be dictated using Padlet voice recognition software. Variances in spelling and vocabulary are possible and unintentional. Not all errors may be caught and/or corrected. Please notify the author if any discrepancies are noted and/or if the meaning of any statement is unclear.? ? Patient verbally consented for treatment via video visit with patient currently located at the [facility] and provider located in [place]. Telemedicine Attestation Telemedicine Attestation I conducted this encounter from [[place]] via secure live, [id number] video conference with the patient, located at [facility] with [fever]. Prior to the interview, the risks and benefits of telemedicine were discussed with the patient and verbal consent was obtained.
[2023-11-27] MEDS: 0.9 % SODIUM CHLORIDE 1,000 ML 100 ML IV (04:44)
[2023-11-27 06:12] LABS: Hematocrit 37.5 % (42.0-54.0); Hemoglobin 12.2 g/dL (14.0-18.0); Mean Corpuscular HGB Conc 32.5 g/dL (29.9-35.2); Mean Corpuscular Hemoglobin 30.7 pg (25.9-34.0); Mean Corpuscular Volume 94.2 fL (80.0-94.0); Mean Platelet Volume 10.2 fL (9.5-13.5); Platelet Count 164 10^3/uL (150-450); Red Blood Count 3.98 10^6/uL (4.70-6.10); Red Cell Distribution Width 12.9 % (11.0-15.0); White Blood Count 14.1 10^3/uL (4.0-11.0)
[2023-11-27 06:34] LABS: Eosinophils Absolute Manual 0.28 10^3/uL (0.00-0.70); Lymphocytes Absolute Manual 0.56 10^3/uL (1.20-3.80); Monocytes Absolute Manual 0.42 10^3/uL (0.30-0.80); Segmented Neut Absolute Manual 10.85 10^3/uL (1.4-6.5)
[2023-11-27 06:35] LABS: Toxic Granulation 4+
[2023-11-27 06:37] LABS: Anion Gap 15.6; BUN Creatinine Ratio 35.4; Calcium 9.3 mg/dL (8.5-10.1); Carbon Dioxide 22.4 mmol/L (21.0-32.0); Chloride 104 mmol/L (98-107); Estimated GFR (African America >60 (>=60); Estimated GFR (Non-African Ame 52 (>=60); Glucose 165 mg/dL (74-106); Sodium 139 mmol/L (136-145)
--- NOTE | 2023-11-27 07:28 | CT_ITS ---
[address] [address] Patient Name: ALVIN BOYD MRN: [id number] date: 1935 Sex: M Assigned Patient Location: [place] Current Patient Location: [place] Accession/Order Number: [id number] Exam Date: 11/27/2023 08:48 Report Date: 11/27/2023 09:45 At the request of: SHAIKH JOJO Procedure: CT angio chest EXAM: CT angio chest HISTORY: Hypoxia, D dimerelevated COMPARISON: CT angiography chest study dated 10/27/2021 TECHNIQUE: CT angiography chest study was performed with the use of intravenous contrast. Multiple axial images were obtained. Reformatted coronal and sagittal images were obtained and reviewed. FINDINGS: No obvious focal filling defects within the pulmonary arteries to suggest emboli. Atherosclerotic calcifications within portions of the thoracic aorta. No evidence of thoracic aortic aneurysm, dissection or leak. Coronary artery calcifications are noted. Small pericardial effusion. Pacemaker on the left unremarkably positioned. Visualized thyroid gland appears grossly unremarkable. Moderate patchy and consolidated density in the right lower lobe with mild to moderate patchy and partially consolidated density in the left lower lobe compatible with infiltrative changes. Lesser mild patchy infiltrate in the left upper lobe posteriorly. Small subpleural density on the right at the right middle lobe level similar to the prior study likely representing granuloma, fibrosis or focal pleural thickening given the similarity. Likely tiny calcified granuloma in the right lower lung field laterally. Mild pleural thickening and lower lung nolan. No pleural effusion. Chest wall appears grossly intact. Mild to moderate general changes in the visualized cervical spine and the dorsal spine with mild convexity of the dorsal spine to the right. Anterior left diaphragmatic hernia with interval associated bowel content, no evidence of bowel obstruction. IMPRESSION: CT angiography chest study fails to demonstrate definite evidence of pulmonary emboli. Atherosclerotic calcifications in the thoracic aorta without evidence of aneurysm, dissection or leak. Small pericardial effusion. Bilateral infiltrative changes mildly greater on the right as described. Electronically authenticated by: MENDY MA Date: 11/27/2023 09:45
--- NOTE | 2023-11-27 07:33 | PM.HP ---
H&P: HPI History of Present Illness Chief complaint: Weakness Narrative: 87 y o male was in usual state of health when he progressively started to experience worsening cough, SOB, alongwith fevers. He came to ED yesterday when he could not catch his breath and was found to have respiratory disress and hypoxia upto 87% on RA. He was also noted to dry on clinical impression and received IV fluids. Patient does not have a formal diagnosis of COPD but smoked for years and uses nebs at home daily. Patient was admitted overnight for acute resp failure with hypoxia sec to bronchitis (CXR did not show consolidation) and started on IV rocephin, IV fluids. Patient was seen earlier today and he felt better. He was on RA. He is still coughing and gets short of breath on exertion. He feels weak and tired but feels better than yesterday. He does not use O2 at home. Review of Systems ROS Status of ROS 10 or more systems reviewed and unremarkable except as noted in history and below [facility] Medical History (Updated 11/27/23 @ 13:41 by Shaikh Korey MD) Afib ?I48.91 - Unspecified atrial fibrillation (ICD-10) CAD (coronary artery disease) ?I25.10 - Atherosclerotic heart disease of [place] coronary artery without angina pectoris (ICD-10) H/O deep venous thrombosis ?Z86.718 - Personal history of other venous thrombosis and embolism (ICD-10) HLD (hyperlipidemia) ?E78.5 - Hyperlipidemia, unspecified (ICD-10) 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) ?I50.32 - Chronic diastolic (congestive) heart failure (ICD-10) Depression ?F32.A - Depression, unspecified (ICD-10) CHF (congestive heart failure) ?I50.9 - Heart failure, unspecified (ICD-10) Stroke ?I63.9 - Cerebral infarction, unspecified (ICD-10) Heart attack ?I21.9 - Acute myocardial infarction, unspecified (ICD-10) DVT (deep venous thrombosis) ?I82.409 - Acute embolism and thrombosis of unspecified deep veins of unspecified lower extremity (ICD-10) Cataract (lens) fragments in eye following cataract surgery ?H59.029 - Cataract (lens) fragments in eye following cataract surgery, unspecified eye (ICD-10) Pacemaker ?Z95.0 - Presence of cardiac pacemaker (ICD-10) Surgical History (Updated 11/26/23 @ 21:23 by Demond Lagos) History of heart artery stent ?Z95.5 - Presence of coronary angioplasty implant and graft (ICD-10) Hx of total knee arthroplasty ?Z96.659 - Presence of unspecified artificial knee joint (ICD-10) H/O total hip arthroplasty ?Z96.649 - Presence of unspecified artificial hip joint (ICD-10) Social History (Updated 11/26/23 @ 22:25 by Jennifer Gloria) Within the past year, how often did you have a drink containing alcohol: never Score interpretation: A score less than 4 is consistent with normal alcohol consumption. Smoking status: Former smoker Non-prescribed substance use: denies use Previous occupational history: retired Highest level of school completed/degree received: high school graduate Are you now , , , , never or living with a partner: In a typical week, how many times do you talk on the telephone with family, friends, or neighbors: 3 or more times per week How often do you get together with friends or relatives: 3 or more times per week How often do you attend christianity or hindu services: 1-3 times per year Little interest or pleasure in doing things: not at all Feeling down, depressed, or hopeless: not at all Feel stressed/tense/nervous/anxious/difficulty sleeping: not at all Do you think of yourself as: straight/heterosexual Gender Identity: male Meds Home Medications and Allergies Home Medications Medication Instructions Recorded Confirmed Type atorvastatin 40 mg tablet 40 mg PO DAILY 11/26/23 11/26/23 History carvedilol 12.5 mg tablet 12.5 mg PO BID 11/26/23 11/26/23 History duloxetine 30 mg capsule,delayed 30 mg PO DAILY 11/26/23 11/26/23 History release hydrochlorothiazide 12.5 mg tablet 12.5 mg PO BID 11/26/23 11/26/23 History montelukast 10 mg tablet 10 mg PO DAILY 11/26/23 11/26/23 History omeprazole 40 mg capsule,delayed 40 mg PO DAILY 11/26/23 11/26/23 History release ondansetron HCl 4 mg tablet 4 mg PO DAILY 11/26/23 11/26/23 History warfarin 4 mg tablet (Jantoven) 4 mg PO DAILY 11/26/23 11/26/23 History Allergies Allergy/AdvReac Type Severity Reaction Status Date / Time No Known Drug Allergies Allergy Verified 11/26/23 18:11 Exam Constitutional Vital Signs, click to edit/add: Last Vital Signs Temp 97.7 F 11/27/23 04:54 Pulse 60 11/27/23 04:54 Resp 20 11/27/23 04:54 BP 106/65 11/26/23 21:16 Pulse Ox 96 11/27/23 06:32 O2 Del Method Nasal Cannula 11/27/23 06:32 O2 Flow Rate 1 11/27/23 06:32 Documenting provider has reviewed patient's vital signs: yes General appearance: cooperative and comfortable Nutritional appearance: obese HENMT Common normals: normocephalic and head/scalp atraumatic Respiratory Common normals: normal respiratory effort and no use of accessory muscles Other: Coarse breath sounds, prolonged exp phase, expiratory wheezing. Cardio Common normals: no JVD, regular rhythm, S1 normal heart sound and S2 normal heart sound Extremity Common normals: normal to inspection and full ROM Neuro Common normals: oriented x3, moves all extremities and no focal motor deficits Psych Common normals: mental status grossly normal, thought process normal, denies homicidal ideation and denies suicidal ideation Results Labs Labs: Short CBC 11/26/23 11/27/23 Range/Units 18:25 04:47 WBC 8.4 14.1 H (4.0-11.0) 10^3/uL Hgb 13.2 L 12.2 L (14.0-18.0) g/dL Hct 42.0 37.5 L (42.0-54.0) % Plt Count 184 164 (150-450) 10^3/uL BMP 11/26/23 11/27/23 18:25 04:47 Sodium 140 139 Potassium 3.8 3.0 L Chloride 104 104 Carbon Dioxide 26.8 22.4 BUN 45.0 H 46.0 H Creatinine 1.43 H 1.30 Glucose 176 H 165 H Calcium 9.4 9.3 Liver Function 11/26/23 Range/Units 18:25 Total Bilirubin 1.1 H (0.2-1.0) mg/dL AST 24 (15-37) U/L ALT 30 (16-63) U/L Alkaline Phosphatase 71 (46-116) U/L Albumin 3.4 (3.4-5.0) g/dL ABG ABG results: 11/26/23 18:25 VBG pH 7.381 VBG pCO2 43.1 Assessment and Plan Assessment and Plan (1) Acute respiratory failure with hypoxemia: Assessment and Plan: likely sec to PNA. CXR - no infiltrate noted but CTA revealed bilateral infiltrates. Will treat for community acquired pneumonia. (2) Bacterial pneumonia: Assessment and Plan: bilateral infiltrates on CTA. No PE. Will treat for CAP with rocephin and azithromycin. Patient has had no recent abx use, hospital or ED stay (3) COPD exacerbation: Assessment and Plan: No formal diagnosis of COPD but likely has it due to years long hx of smoking. He uses nebs at home daily. Wheezing noted on exam. On duonebs along with PO prednisone. Monitor closely. (4) Dehydration: Assessment and Plan: due to poor PO intake from pneumonia. Stop IVF. Encouraged PO intake. Being cautious because of hx of HFpEF. (5) 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): Assessment and Plan: Given IVF overnight. Stop IVF. Encourage PO Intake. Monitor. C/w carvedilol (6) D-dimer, elevated: Assessment and Plan: Ne evidence of PE on CTA. (7) Hypokalemia: Assessment and Plan: due to poor PO intake. Repleted, recheck. (8) Afib: Assessment and Plan: Hx of Afib. on Coumadin for AC. Qualifiers: Atrial fibrillation type: paroxysmal Qualified Code(s): I48.0 - Paroxysmal atrial fibrillation (9) CAD (coronary artery disease): Assessment and Plan: s/p PCI. On ASA and coumadin. Also uses Coreg and Statin Qualifiers: Associated angina: without angina Coronary Disease-Associated Artery/Lesion type: [place] artery [place] vs. transplanted heart: [place] heart Qualified Code(s): I25.10 - Atherosclerotic heart disease of [place] coronary artery without angina pectoris (10) H/O deep venous thrombosis: Assessment and Plan: On Coumadin. Check INR daily with abx use for CAP to ensure INR remains at goal. (11) Depression: Assessment and Plan: Stable mood. 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 Qualifiers: Hyperlipidemia type: unspecified Qualified Code(s): E78.5 - Hyperlipidemia, unspecified Plan Changed to inpatient as patient presented with Pneumonia that resulted in acute resp failure with hypoxia, COPD exacerbation. Given his age, comorbidities, he is at high risk of poor clinical outcome and prognosis and needs close monitoring and continued inpatient care for treatment of above outline acute clinical conditions and thus, anticipated to stay for 2-3 midnights in the hospital to ensure close monitoring and continued clinical improvement
--- OUTSIDE RECORDS SUMMARY | 2023-11-27 07:39 | XMS_ITS | CCD ---
Author Name Unknown Address [address] [place] [address] Organization [facility] Care Team Providers Care Metallurgical Or Materials Technician Name Role Phone AUXIER, MYRNA DENIS Unavailable Unavailabl e BAKOS, JOHNATHAN Unavailable Unavailable BAKOS, JOHNAHTAN Unavailable Unavailable AUXIER, MYRNA DENIS Unavailable Unavailabl [...] Unavailabl e MORLEY, DRAGAN CINTHIA Unavailable Unavailable [place], Myrna Denis~[id number] Unavailable Unavailable ValoneRio Fabienne Unavailable Unavailabl e [...] Date of Onset Reaction(s) Facility (1 source) 08576,[id number]; Translations: [Unknown] Propensity to adverse reactions (disorder) 9 [facility] Repository Problems Active Problems Problem Classification Problem [...] myocardial infarction; Translations: [Atherosclerotic heart disease of [place] coronary artery without angina pectoris] Onset: 10-29-2022 [...] Onset: 03-28-2023 Episodic Other aftercare (1 source) intermediate (current) use of anticoagulants; Translations: [JAIL CURRNT USE ANTICOAGULANTS] Onset: 04-29-2023 Episodic Other [...] 2022 Episodic Other aftercare (1 source) 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; Translations: [OTH JAIL CURRENT DRUG THERAPY] Onset: 2022 Episodic Other aftercare (1 source) intermediate (current) use of aspirin; Translations: [JAIL CURRENT USE OF ASPIRIN] Onset: 2022 Episodic [...] Range Facility Office Visiton 10-19-2023 Follow-up visit [id number] Calin Boyd [facility] 1935 M [facility] Provider Department Center 10/19/2023 SHASTA CROFT [place] [facility] No family history on file Level of Service:64622 ND OFFICE/OUTPATIENT ESTABLISHED MOD MDM 30-39 MIN Normal [facility] Office Visiton 04-08-2023 Follow-up visit [id number] Calin Boyd [facility] 1935 M Date Provider Department Center 04/08/2023 SHASTA CROFT [facility] No family history on file Level of Service:61378 ND OFFICE/OUTPATIENT ESTABLISHED MOD MDM 30-39 MIN Reason for Visit and Comments: Coronary Artery Disease [187] Atrial Fibrillation [80] Congestive Heart Failure [127] Hypertension [962194] 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 Dana Angulo Basophils/100 WBC (Bld) 0.8 % Normal 0.2-2.0 [facility] Comment on above: Performed By: #### C BC #### [facility] [address] [place] [address] Dr. Dana Angulo EO # 0.1 103/ul Normal 0.0-0.7 [facility] Comment on above: Performed By: #### C BC #### [facility] [address] [place] [address] Dr. Dana Angulo Eosinophils/100 WBC (Bld) 0.9 % Normal 0.9-7.0 [facility] Comment on above: Performed By: #### C BC #### [facility] [address] [place] [address] Dr. Dana Angulo Erythrocyte distribution width (RBC) [Ratio] 13.2 % Normal 11.0-15.0 [facility] Comment on above: Performed By: #### C BC #### [facility] [address] [place] [address] Dr. Dana Angulo Hematocrit (Bld) [Volume fraction] 37.1 % Critically low 42.0-54.0 [facility] Comment on above: Performed By: #### C BC #### [facility] [address] [place] [address] Dr. Dana Angulo Hemoglobin (Bld) [Mass/Vol] 12.1 g/dL Critically low 14.0-18.0 [facility] Comment on above: Performed By: #### C BC #### [facility] [address] [place] [address] Dr. Dana Angulo IG # 0.03 10e3/ul Normal 0.00-0.03 [facility] Comment on above: Performed By: #### C BC #### [facility] [address] [place] [address] Dr. Dana Angulo IG % 0.4 % Normal 0.0-0.5 [facility] Comment on above: Performed By: #### C BC #### [facility] [address] [place] [address] Dr. Dana Angulo LYMPH # 1.4 103/ul Normal 1.2-3.8 [facility] Comment on above: Performed By: #### C BC #### [facility] [address] [place] [address] Dr. Dana Angulo Lymphocytes/100 WBC (Bld) 19.0 % Critically low 20.5-60.0 [facility] Comment on above: Performed By: #### C BC #### [facility] [address] [place] [address] Dr. Dana Angulo MANUAL DIFF REQ NO Normal [facility] Comment on above: Performed By: #### C BC #### [facility] [address] [place] [address] Dr. Dana Angulo MCH (RBC) [Entitic mass] 30.6 pg Normal 25.9-34.0 [facility] Comment on above: Performed By: #### C BC #### [facility] [address] [place] [address] Dr. Dana Angulo MCHC (RBC) [Mass/Vol] 32.6 g/dL Normal 29.9-35.2 [facility] Comment on above: Performed By: #### C BC #### [facility] [address] [place] [address] Dr. Dana Angulo MCV (RBC) [Entitic vol] 93.7 fL Normal 80.0-94.0 [facility] Comment on above: Performed By: #### C BC #### [facility] [address] [place] [address] Dr. Dana Angulo MONO # 0.5 103/ul Normal 0.3-0.8 [facility] Comment on above: Performed By: #### C BC #### [facility] [address] [place] [address] Dr. Dana Angulo Monocytes/100 WBC (Bld) 7.2 % Normal 1.7-12.0 [facility] Comment on above: Performed By: #### C BC #### [facility] [address] [place] [address] Dr. Dana Angulo NEUT # 5.4 103/ul Normal 1.4-6.5 [facility] Comment on above: Performed By: #### C BC #### [facility] [address] [place] [address] Dr. Dana Angulo Neutrophils/100 WBC (Bld) 71.7 % Normal 43.0-75.0 [facility] Comment on above: Performed By: #### C BC #### [facility] [address] [place] [address] Dr. Dana Angulo Platelet mean volume (Bld) [Entitic vol] 9.6 fL Normal 9.5-13.5 [facility] Comment on above: Performed By: #### C BC #### [facility] [address] [place] [address] Dr. Dana Angulo PLT 165 103/ul Normal 150-450 [facility] Comment on above: Performed By: #### C BC #### [facility] [address] [place] [address] Dr. Dana Angulo RBC 3.96 106/ul Critically low 4.70-6.10 [facility] Comment on above: Performed By: #### C BC #### [facility] [address] [place] [address] Dr. Dana Angulo WBC 7.5 103/ul Normal 4.0-11.0 [facility] Comment on above: Performed By: #### C BC #### [facility] [address] [place] [address] Dr. Dana Angulo ER URINE PROFILEon 3 Bilirubin Ql (U) Negative Normal NEGATIVE [facility] Comment on above: Performed By: #### ANGELINA FRIENDRO #### [facility] [address] [place] [address] Dr. Dana Angulo Clarity (U) CLEAR Normal CLEAR [facility] Comment on above: Performed By: #### ANGELINA FRIENDRO #### [facility] [address] [place] [address] Dr. Dana Angulo Color (U) LT. YELLOW Normal YELLOW [facility] Comment on above: Performed By: #### ANGELINA FRIENDRO #### [facility] [address] [place] [address] Dr. Dana GÓMEZ A micrscopic examina tion will be performed if indicated. Normal [facility] Comment on above: Performed By: #### Marino KENYON UMICRO #### [facility] [address] [place] [address] Dr. Dana Angulo Glucose Ql (U) Negative Normal NEGATIVE [facility] Comment on above: Performed By: #### Marino KENYON UMICRO #### [facility] [address] [place] [address] Dr. Dana Anuglo Hemoglobin Ql (U) Negative Normal NEGATIVE [facility] Comment on above: Performed By: #### Marino KENYON UMICRO #### [facility] [address] [place] [address] Dr. Dana Angulo Ketones Ql (U) Negative Normal NEGATIVE [facility] Comment on above: Performed By: #### Marino KENYON UMICRO #### [facility] [address] [place] [address] Dr. Dana Angulo LEUKOCYTES TRACE Abnormal NEGATIVE [facility] Comment on above: Performed By: #### Marino KENYON UMICRO #### [facility] [address] [place] [address] Dr. Dana Angulo Nitrite Ql (U) Negative Normal NEGATIVE [facility] Comment on above: Performed By: #### Marino KENYON UMICRO #### [facility] [address] [place] [address] Dr. Dana Angulo pH (U) 6.0 [pH] Normal 5-9 [facility] Comment on above: Performed By: #### Marino KENYON UMICRO #### [facility] [address] [place] [address] Dr. Dana Angulo SPEC GRAVITY 1.015 Normal 1.005-<=1.02 5 [facility] Comment on above: Performed By: #### Marino KENYON UMICRO #### [facility] [address] [place] [address] Dr. Dana Angulo UA PROTEIN Negative Normal NEGATIVE/ TRACE [facility] Comment on above: Performed By: #### ANGELINA FRIENDRO #### [facility] [address] [place] [address] Dr. Dana Angulo UR MICRO IND INDICATED Normal [facility] Comment on above: Performed By: #### E ANGELINA KENYONRO #### [facility] [address] [place] [address] Dr. Dana Angulo Urobilinogen Qn (U) 0.2 {Delia'U}/dL Normal 0.2 - 1.0 [facility] Comment on above: Performed By: #### ANGELINA FRIENDRO #### [facility] [address] [place] [address] Dr. Dana Angulo LACTATE/LACTIC ACIDon 2022 Lactate [Moles/Vol] 1.1 mmol/L Normal 0.4-1.9 [facility] Comment on above: Performed By: #### L ACT #### [facility] [address] [place] [address] Dr. Dana Angulo LIPASEon 12-18-2022 Lipase [Catalytic activity/Vol] 68.0 U/L Critically low 73.0-393.0 [facility] Comment on above: Performed By: #### C BC #### [facility] [address] [place] [address] Dr. Dana Angulo OCC BLD IMMUNO SCREENon 11-30 OCCULT BLOOD Negative Normal NEGATIVE [facility] Comment on above: Performed By: #### H STROPN #### [facility] [address] [place] [address] Dr. Dana Angulo PROF 14(COMP METB)on 023 Albumin [Mass/Vol] 3.8 g/dL Normal 3.4-5.0 [facility] Comment on above: Performed By: #### C BC #### [facility] [address] [place] [address] Dr. Dana Angulo Albumin/Globulin [Mass ratio] 1.3 {ratio} Normal [facility] Comment on above: Performed By: #### C BC #### [facility] [address] [place] [address] Dr. Dana Angulo ALP [Catalytic activity/Vol] 70 U/L Normal 46-116 [facility] Comment on above: Performed By: #### C BC #### [facility] [address] [place] [address] Dr. Dana Angulo ALT [Catalytic activity/Vol] 22 U/L Normal 16-63 [facility] Comment on above: Performed By: #### C BC #### [facility] [address] [place] [address] Dr. Dana Angulo Anion gap [Moles/Vol] 13.5 mmol/L Normal [facility] Comment on above: Performed By: #### C BC #### [facility] [address] [place] [address] Dr. Dana Angulo AST [Catalytic activity/Vol] 25 U/L Normal 15-37 [facility] Comment on above: Performed By: #### C BC #### [facility] [address] [place] [address] Dr. Dana Angulo Bilirubin [Mass/Vol] 1.0 mg/dL Normal 0.2-1.0 [facility] Comment on above: Performed By: #### C BC #### [facility] [address] [place] [address] Dr. Dana Angulo Calcium [Mass/Vol] 9.7 mg/dL Normal 8.5-10.1 [facility] Comment on above: Performed By: #### C BC #### [facility] [address] [place] [address] Dr. Dana Angulo Chloride [Moles/Vol] 103 mmol/L Normal 98-107 [facility] Comment on above: Performed By: #### C BC #### [facility] [address] [place] [address] Dr. Dana Angulo CO2 [Moles/Vol] 25.1 mmol/L Normal 21.0-32.0 [facility] Comment on above: Performed By: #### C BC #### [facility] [address] [place] [address] Dr. Dana Angulo Creatinine [Mass/Vol] 1.07 mg/dL Normal 0.70-1.30 [facility] Comment on above: Performed By: #### C BC #### [facility] [address] [address] [address] Dana Angulo EGFR-AF NORWEGIAN >60 Normal >=60 [facility] Comment on above: Performed By: #### C BC #### [facility] [address] [address] [address] Dana Angulo EGFR-NON AF [place] >60 Normal >=60 [facility] Comment on above: Performed By: #### C BC #### [facility] [address] [address] [address] Dana Angulo Globulin (S) [Mass/Vol] 3.0 g/dL Normal [facility] Comment on above: Performed By: #### C BC #### [facility] [address] [place] [address] Dr. Dana Angulo Glucose [Mass/Vol] 115 mg/dL Critically high 74-106 [facility] Comment on above: Performed By: #### C BC #### [facility] [address] [place] [address] Dr. Dana Angulo Potassium [Moles/Vol] 3.6 mmol/L Normal 3.5-5.1 [facility] Comment on above: Performed By: #### C BC #### [facility] [address] [place] [address] Dr. Dana Angulo Protein [Mass/Vol] 6.8 g/dL Normal 6.4-8.2 [facility] Comment on above: Performed By: #### C BC #### [facility] [address] [place] [address] Dr. Dana Angulo Sodium [Moles/Vol] 138 mmol/L Normal 136-145 [facility] Comment on above: Performed By: #### C BC #### [facility] [address] [place] [address] Dr. Dana Angulo Urea nitrogen [Mass/Vol] 39.0 mg/dL Critically high 7.0-18.0 [facility] Comment on above: Performed By: #### C BC #### [facility] [address] [place] [address] Dr. Dana Angulo Urea nitrogen/Creatinin e [Mass ratio] 36.4 mg/mg Normal [facility] Comment on above: Performed By: #### C BC #### [facility] [address] [place] [address] Dr. Dana Angulo PROTIMEon 12-18-2022 INR Coag (PPP) [Relative time] 2.15 {INR} Normal [facility] Comment on above: Performed By: #### P T, PTT #### [facility] [address] [place] [address] Dr. Dana Angulo INR GUIDELINES SEE BELOW Normal [facility] Comment on above: Result Comment: BETTINA RED INR: 2.0 - 3.0 CONDITIONS NOT LISTED BELOW 2.5 - 3.5 FOR PROSTHETIC HEART VALVE REPLACEMENT 2.5 - 3.5 RECURRENT THROMBOSIS Performed By: #### P T, PTT #### [facility] [address] [place] [address] Dr. Dana Angulo PT Coag (PPP) [Time] 21.8 s Critically high 9.0-11.6 [facility] Comment on above: Performed By: #### P T, PTT #### [facility] [address] [place] [address] Dr. Dana Angulo PTTon 12-18-2022 aPTT Coag (Bld) [Time] 35.3 s Normal 22.3-36.2 [facility] Comment on above: Performed By: #### P T, PTT #### [facility] [address] [place] [address] Dr. Dana Angulo TROPONIN, HIGH SENSITIVITYon 12-18-2022 HSTROP 37.2 pg/mL Normal 4.0-76.1 [facility] Comment on above: Result Comment: CUT- OFF POINTS HAVE BEEN ESTABLISHED BASED ON THE FOURTH UNIVERSAL DEFINITIONS OF MYOCARDIAL INFARCTION. THE UPPER REFERENCE LIMIT (URL) OF TROPONIN, DEFINED THE 99TH PERCENTILE OF cTnI DISTRIBUTION IN A REFERENCE POPULATION, HAS BEEN CONFIRMED THE DECISION THRESHOLD FOR GA DIAGNOSIS. Performed By: #### H STROPN #### [facility] [address] [place] [address] Dr. Dana Angulo HSTROP 39.8 pg/mL Normal 4.0-76.1 [facility] Comment on above: Result Comment: CUT- OFF POINTS HAVE BEEN ESTABLISHED BASED ON THE FOURTH UNIVERSAL DEFINITIONS OF MYOCARDIAL INFARCTION. THE UPPER REFERENCE LIMIT (URL) OF TROPONIN, DEFINED THE 99TH PERCENTILE OF cTnI DISTRIBUTION IN A REFERENCE POPULATION, HAS BEEN CONFIRMED THE DECISION THRESHOLD FOR GA DIAGNOSIS. Performed By: #### H STROPN #### [facility] [address] [place] [address] Dr. Dana Angulo URINE MICROSCOPIC ONLYon BACTERIA NONE SEEN Normal NONE SEEN [facility] Comment on above: Performed By: #### Marino KENYON UMICRO #### [facility] [address] [place] [address] Dr. Dana Angulo Bacteria identified Cx Nom (U) NOT INDICATED Normal [facility] Comment on above: Performed By: #### Marino KENYON UMICRO #### [facility] [address] [place] [address] Dr. Dana Angulo CAST NONE SEEN Normal NONE SEEN [facility] Comment on above: Performed By: #### Marino KENYON UMICRO #### [facility] [address] [place] [address] Dr. Dana Angulo Crystals LM Nom (Urine sed) NONE SEEN Normal NONE SEEN [facility] Comment on above: Performed By: #### Marino KENYON UMICRO #### [facility] [address] [place] [address] Dr. Dana Angulo Epithelial cells LM Ql (Urine sed) FEW Abnormal NONE SEEN /RARE [facility] Comment on above: Performed By: #### E KOSTAS UMICRO #### [facility] [address] [place] [address] Dr. Dana Angulo MUCOUS NONE SEEN Normal NONE SEEN [facility] Comment on above: Performed By: #### E KOSTAS UMICRO #### [facility] [address] [place] [address] Dr. Dana Angulo RBC NONE SEEN Abnormal 0-2 [facility] Comment on above: Performed By: #### E HUMBERTO KENYON #### [facility] [address] [address] [address] Dana Angulo WBC 2-5 Abnormal NONE SEEN [facility] Comment on above: Performed By: #### E HUMBERTO KENYON #### [facility] [address] [place], [place] [address] Dr. Dana Angulo US SINGLE QUAD RT [...] Date: 2022-12-18 13:05 Normal [facility] BNPon 11-11-2022 Natriuretic peptide B (Bld) [Mass/Vol] 2364.0 pg/mL Critically high <=1,800.0 [facility] Comment on above: Performed By: #### H ASHISH #### [facility] [address] [address] [address] Dana Angulo BUNon 11-11-2022 Urea nitrogen [Mass/Vol] 18.0 mg/dL Normal 7.0-18.0 [facility] Comment on above: Performed By: #### H ASHISH #### [facility] [address] [address] [address] Dana Angulo CBC AUTO DIFFon 11-11-2022 BASO # 0.0 103/ul Normal 0.0-0.1 [facility] Comment on above: Performed By: #### C BC #### [facility] [address] [address] [address] Dana Angulo Basophils/100 WBC (Bld) 0.6 % Normal 0.2-2.0 [facility] Comment on above: Performed By: #### C BC #### [facility] [address] [place] [address] Dr. Dana Angulo EO # 0.1 103/ul Normal 0.0-0.7 [facility] Comment on above: Performed By: #### C BC #### [facility] [address] [place] [address] Dr. Dana Angulo Eosinophils/100 WBC (Bld) 1.3 % Normal 0.9-7.0 [facility] Comment on above: Performed By: #### C BC #### [facility] [address] [place] [address] Dr. Dana Angulo Erythrocyte distribution width (RBC) [Ratio] 13.9 % Normal 11.0-15.0 [facility] Comment on above: Performed By: #### C BC #### [facility] [address] [place] [address] Dr. Dana Angulo Hematocrit (Bld) [Volume fraction] 36.2 % Critically low 42.0-54.0 [facility] Comment on above: Performed By: #### C BC #### [facility] [address] [address] [address] Dana Angulo Hemoglobin (Bld) [Mass/Vol] 11.4 g/dL Critically low 14.0-18.0 [facility] Comment on above: Performed By: #### C BC #### [facility] [address] [place] [address] Dr. Dana Angulo IG # 0.02 10e3/ul Normal 0.00-0.03 [facility] Comment on above: Performed By: #### C BC #### [facility] [address] [place] [address] Dr. Dana Angulo IG % 0.3 % Normal 0.0-0.5 [facility] Comment on above: Performed By: #### C BC #### [facility] [address] [place] [address] Dr. Dana Angulo LYMPH # 1.4 103/ul Normal 1.2-3.8 [facility] Comment on above: Performed By: #### C BC #### [facility] [address] [place] [address] Dr. Dana Angulo Lymphocytes/100 WBC (Bld) 19.8 % Critically low 20.5-60.0 [facility] Comment on above: Performed By: #### C BC #### [facility] [address] [place] [address] Dr. Dana Angulo MANUAL DIFF REQ NO Normal [facility] Comment on above: Performed By: #### C BC #### [facility] [address] [place] [address] Dr. Dana Angulo MCH (RBC) [Entitic mass] 30.9 pg Normal 25.9-34.0 [facility] Comment on above: Performed By: #### C BC #### [facility] [address] [place] [address] Dr. Dana Angulo MCHC (RBC) [Mass/Vol] 31.5 g/dL Normal 29.9-35.2 [facility] Comment on above: Performed By: #### C BC #### [facility] [address] [place] [address] Dr. Dana Angulo MCV (RBC) [Entitic vol] 98.1 fL Critically high 80.0-94.0 [facility] Comment on above: Performed By: #### C BC #### [facility] [address] [place] [address] Dr. Dana Angulo MONO # 0.5 103/ul Normal 0.3-0.8 [facility] Comment on above: Performed By: #### C BC #### [facility] [address] [place] [address] Dr. Dana Angulo Monocytes/100 WBC (Bld) 6.9 % Normal 1.7-12.0 [facility] Comment on above: Performed By: #### C BC #### [facility] [address] [address] [address] Dana Angulo NEUT # 5.1 103/ul Normal 1.4-6.5 [facility] Comment on above: Performed By: #### C BC #### [facility] [address] [place] [address] Dr. Dana Angulo Neutrophils/100 WBC (Bld) 71.1 % Normal 43.0-75.0 [facility] Comment on above: Performed By: #### C BC #### [facility] Laboratory [address] [place] [address] Dr. Dana Angulo Platelet mean volume (Bld) [Entitic vol] 9.4 fL Critically low 9.5-13.5 [facility] Comment on above: Performed By: #### C BC #### [facility] Laboratory [address] [place] [address] Dr. Dana Angulo PLT 164 103/ul Normal 150-450 [facility] Comment on above: Performed By: #### C BC #### [facility] Laboratory [address] [place] [address] Dr. Dana Angulo RBC 3.69 106/ul Critically low 4.70-6.10 [facility] Comment on above: Performed By: #### C BC #### [facility] Laboratory [address] [place] [address] Dr. Dana Angulo WBC 7.1 103/ul Normal 4.0-11.0 [facility] Comment on above: Performed By: #### C BC #### [facility] Laboratory [address] [place] [address] Dr. Dana Angulo CREATININEon 11-11-2022 Creatinine [Mass/Vol] 1.10 mg/dL Normal 0.70-1.30 [facility] Comment on above: Performed By: #### H STROPN #### [facility] Laboratory [address] [address] [address] Dana Angulo EGFR-AF NORWEGIAN >60 Normal >=60 The [facility] Comment on above: Result Comment: Prev iously reported as: >77 On 11/11/2022 10:45 By [email or web address] Previously reported as: (blank) On 11/11/2022 10:44 By BL3 Performed By: #### H STROPN #### [facility] Laboratory [address] [address] [address] Dana Angulo EGFR-NON AF NORWEGIAN >60 Normal >=60 [facility] Comment on above: Result Comment: Prev iously reported as: >64 On 11/11/2022 10:45 By BL3 Previously reported as: (blank) On 11/11/2022 10:44 By BL3 Performed By: #### H STROPN #### [facility] Laboratory [address] [place] [address] Dr. Dana Angulo CULTURE URINEon 11-11-2022 CULTURE URINE Culture Observations : NO GROWTH. Normal [facility] Comment on above: Performed By: #### C BC #### [facility] Laboratory [address] [place] [address] Dr. Dana Angulo ELECTROLYTESon 11-11-2022 Anion gap [Moles/Vol] 12.7 mmol/L Normal [facility] Comment on above: Performed By: #### H STROPN #### [facility] Laboratory [address] [place] [address] Dr. Dana Angulo Chloride [Moles/Vol] 103 mmol/L Normal 98-107 [facility] Comment on above: Performed By: #### H STROPN #### [facility] Laboratory [address] [place] [address] Dr. Dana Angulo CO2 [Moles/Vol] 29.0 mmol/L Normal 21.0-32.0 [facility] Comment on above: Performed By: #### H STROPN #### [facility] Laboratory [address] [place] [address] Dr. Dana Angulo Potassium [Moles/Vol] 4.7 mmol/L Normal 3.5-5.1 [facility] Comment on above: Performed By: #### H STROPN #### [facility] [address] [address] [address] Dana Angulo Sodium [Moles/Vol] 140 mmol/L Normal 136-145 [facility] Comment on above: Performed By: #### H STROPN #### [facility] [address] [address] [address] Dana Angulo GLYCOHEMOGLOBIN A1Con 2021 ADA RECOMMENDATION SEE BELOW Normal [facility] Comment on above: Result Comment: ADA RECOMMENDED LIMIT 4.0 - 6.0 ADA THERAPEUTIC TARGET < 7.0 ACTION SUGGESTED > 7.0 Performed By: #### H STROPN #### [facility] [address] [address] [address] Dana Angulo Glucose [Mass/Vol] 120 mg/dL Normal [facility] Comment on above: Performed By: #### H STROPN #### [facility] [address] [address] [address] Dana Angulo HbA1c (Bld) [Mass fraction] 5.8 % Normal 4.5-6.2 [facility] Comment on above: Performed By: #### H STROPN #### [facility] Laboratory [address] [place] [address] Dr. Dana Angulo LIPID PROFILEon 11-11-2022 CHOL-HDL RATIO NORM SEE BELOW Normal [facility] Comment on above: Result Comment: 3.3 - 4.4 LOW RISK 4.4 - 7.1 AVERAGE RISK 7.1 - 11.0 MODERATE RISK >11.0 HIGH RISK Performed By: #### H STROPN #### [facility] [address] [address] [address] Dana Angulo Cholesterol [Mass/Vol] 91 mg/dL Normal <=200 [facility] Comment on above: Performed By: #### H STROPN #### [facility] [address] [address] [address] Dana Angulo Cholesterol in HDL [Mass/Vol] 49 mg/dL Normal 40-60 [facility] Comment on above: Performed By: #### H STROPN #### [facility] [address] [address] [address] Dana Angulo Cholesterol in LDL [Mass/Vol] 29.4 mg/dL Normal [facility] Comment on above: Performed By: #### H STROPN #### [facility] [address] [address] [address] Dana Angulo Cholesterol.total/ Cholesterol in HDL [Mass ratio] 1.9 {ratio} Normal [facility] Comment on above: Performed By: #### H STROPN #### [facility] [address] [address] [address] Dana Angulo HDL NORMAL > or = 60 mg/dl - LO W CARDIOVASCULAR RISK <40 mg/dl - HIGH CARDIOVASCULAR RISK Normal [facility] Comment on above: Performed By: #### H STROPN #### [facility] [address] [address] [address] Dana Angulo LDL CALC NORMAL SEE BELOW Normal [facility] Comment on above: Result Comment: <100 mg/dl OPTIMAL 100 - 129 mg/dl NEAR OR ABOVE OPTIMAL 130 - 159 mg/dl BORDERLINE HIGH 160 - 189 mg/dl HIGH >190 mg/dl VERY HIGH Performed By: #### H STROPN #### [facility] [address] [address] [address] Dana Angulo Triglyceride [Mass/Vol] 63 mg/dL Normal <=150 [facility] Comment on above: Performed By: #### H STROPN #### [facility] [address] [address] [address] Dana Angulo VLDL CALC 12.6 mg/dL Normal [facility] Comment on above: Performed By: #### H STROPN #### [facility] [address] [address] [address] Dana Angulo LIVER PROFILEon 11-11-2022 Albumin [Mass/Vol] 3.7 g/dL Normal 3.4-5.0 [facility] Comment on above: Performed By: #### H STROPN #### [facility] [address] [address] [address] Dana Angulo Albumin/Globulin [Mass ratio] 1.2 {ratio} Normal [facility] Comment on above: Performed By: #### H STROPN #### [facility] [address] [address] [address] Dana Angulo ALP [Catalytic activity/Vol] 68 U/L Normal 46-116 [facility] Comment on above: Performed By: #### H STROPN #### [facility] [address] [address] [address] Dana Angulo ALT [Catalytic activity/Vol] 20 U/L Normal 16-63 [facility] Comment on above: Performed By: #### H STROPN #### [facility] [address] [address] [address] Dana Angulo AST [Catalytic activity/Vol] 21 U/L Normal 15-37 [facility] Comment on above: Performed By: #### H STROPN #### [facility] [address] [address] [address] Dana Angulo BILI, CONJUGATED 0.3 mg/dL Critically high 0.0-0.2 [facility] Comment on above: Performed By: #### H STROPN #### [facility] [address] [address] [address] Dana Angulo Bilirubin [Mass/Vol] 0.9 mg/dL Normal 0.2-1.0 [facility] Comment on above: Performed By: #### H STROPN #### [facility] [address] [address] [address] Dana Angulo Globulin (S) [Mass/Vol] 3.1 g/dL Normal [facility] Comment on above: Performed By: #### H STROPN #### [facility] [address] [address] [address] Dana Angulo Protein [Mass/Vol] 6.8 g/dL Normal 6.4-8.2 [facility] Comment on above: Performed By: #### H STROPN #### [facility] [address] [address] [address] Dana Angulo TSHon 11-11-2022 TSH 3.426 uIU/mL Normal 0.358-3.740 [facility] Comment on above: Performed By: #### H STROPN #### [facility] [address] [address] [address] Dana Angulo UA (CLEAN/CATCH) COAT AGENT/MICRO I F IND.on 11-11-2022 Bilirubin Ql (U) Negative Normal NEGATIVE [facility] Comment on above: Performed By: #### U ACSIND, UMICRO #### [facility] [address] [address] [address] Dana Angulo Clarity (U) CLEAR Normal CLEAR [facility] Comment on above: Performed By: #### U ACSIND, UMICRO #### [facility] [address] [place] [address] Dr. Dana Angulo Color (U) YELLOW Normal YELLOW [facility] Comment on above: Performed By: #### U ACSIND, UMICRO #### [facility] [address] [place] [address] Dr. Dana Angulo Glucose Ql (U) Negative Normal NEGATIVE [facility] Comment on above: Performed By: #### U ACSIND, UMICRO #### [facility] [address] [address] [address] Dana Angulo Hemoglobin Ql (U) Negative Normal NEGATIVE [facility] Comment on above: Performed By: #### U ACSIND, UMICRO #### [facility] [address] [place] [address] Dr. Dana Angulo Ketones Ql (U) TRACE Abnormal NEGATIVE The [facility] Comment on above: Performed By: #### U ACSIND, UMICRO #### [facility] [address] [address] [address] Dana Angulo LEUKOCYTES SMALL Abnormal NEGATIVE [facility] Comment on above: Performed By: #### U ACSIND, UMICRO #### [facility] [address] [place] [address] Dr. Dana Angulo Nitrite Ql (U) Negative Normal NEGATIVE [facility] Comment on above: Performed By: #### U ACSIND, UMICRO #### [facility] [address] [place] [address] Dr. Dana Angulo pH (U) 6.0 [pH] Normal 5-9 [facility] Comment on above: Performed By: #### U ACSREGGIE UMICRO #### [facility] [address] [place] [address] Dr. Dana Angulo SPEC GRAVITY 1.015 Normal 1.005-<=1.02 5 [facility] Comment on above: Performed By: #### U ACSREGGIE UMICRO #### [facility] [address] [place] [address] Dr. Dana Angulo UA PROTEIN TRACE Normal NEGATIVE/ TRACE [facility] Comment on above: Performed By: #### U ACSREGGIE UMICRO #### [facility] [address] [place] [address] Dr. Dana Angulo UR MICRO IND INDICATED Normal [facility] Comment on above: Performed By: #### U ACSREGGIE UMICRO #### [facility] [address] [place] [address] Dr. Dana Angulo Urobilinogen Qn (U) 1.0 {Delia'U}/dL Normal 0.2 - 1.0 [facility] Comment on above: Performed By: #### U ACSREGGIE ICRO #### [facility] [address] [place] [address] Dr. Dana Angulo URINE MICROSCOPIC ONLYon BACTERIA TRACE Abnormal NONE SEEN [facility] Comment on above: Performed By: #### U ACSREGGIE UMICRO #### [facility] [address] [place] [address] Dr. Dana Angulo Bacteria identified Cx Nom (U) INDICATED Normal [facility] Comment on above: Performed By: #### U ACSREGGIE UMICRO #### [facility] [address] [place] [address] Dr. Dana Angulo CAST SEEN Abnormal NONE SEEN [facility] Comment on above: Performed By: #### U ACSREGGIE UMICRO #### [facility] [address] [place] [address] Dr. Dana Angulo Crystals LM Nom (Urine sed) NONE SEEN Normal NONE SEEN [facility] Comment on above: Performed By: #### U ACSIND, UMICRO #### [facility] [address] [address] [address] Dana Angulo Epithelial cells LM Ql (Urine sed) RARE Normal NONE SEEN /RARE [facility] Comment on above: Performed By: #### U ACSIND, UMICRO #### [facility] [address] [address] [address] Dana Angulo MUCOUS NONE SEEN Normal NONE SEEN [facility] Comment on above: Performed By: #### U ACSIND, UMICRO #### [facility] [address] [address] [address] Dana Angulo RBC 2-5 Abnormal 0-2 [facility] Comment on above: Performed By: #### U ACSIND, UMICRO #### [facility] [address] [place] [address] Dr. Dana Angulo WBC 2-5 Abnormal NONE SEEN [facility] Comment on above: Performed By: #### U ACSIND, UMICRO #### [facility] [address] [address] [address] Dana Angulo VITAMIN D 25 OHon 11-11-2022 VIT D 25-OH 30.2 ng/mL Normal [facility] Comment on above: Performed By: #### C BC #### [facility] [address] [place] [address] Dr. Dana Angulo VIT D RANGES SEE BELOW Normal [facility] Comment on above: Result Comment: <20 ng/mL Vit D deficient 20 - <30 ng/mL Vit D insufficient 30 - 100 ng/mL Vit D sufficient >100 ng/mL Potential Toxicity Performed By: #### C BC #### [facility] [address] [place] [address] Dr. Dana Angulo Office Visiton 10-29-2022 Follow-up visit [id number] Calin Boyd 1935 M Date Provider Department Center 10/29/2022 DRAG[facility] No family history on file Level of Service:74422 [place] OFFICE/OUTPATIENT ESTABLISHED MOD MDM 30-39 MIN Reason for Visit and Comments: Coronary Artery Disease [187] Atrial Fibrillation [80] Valve Disorder [3372] Congestive Heart Failure [127] Normal [facility] Cardiovascular Lab Reporton 06-25-2019 Cardiovascular Lab Report [facility] Patient Name: [facility] Alvin Sanchez MR #: [id number] Department of Physician: Geetha Blankenship M.D. Division of Service Date: 06/24/2019 Cardiology Birthdate: 1935 Adult Cardiovascular Room #: Services [facility] [address] [place] [address] Cardiovascular Laboratory Report FINAL IMPRESSION: 1. Normal right and left ventricular filling pressures. 2. Preserved cardiac output and cardiac index. 3. Mild pulmonary artery hypertension. INDICATIONS: The patient is an 83-year-old male, who has heart failure, status post COMBUSTION ENGINEER. He has been experiencing shortness of breath [...] modified Seldinger technique and ultrasound guidance, a 5-Panamanian micropuncture was placed in right internal jugular vein. This was upsized to a regular 6-Panamanian pinnacle sheath and a 6-Panamanian Jackson was used for right heart catheterization. [...] Lucas M.D. Date Trans: 06/25/2019 05:12 A/deniz DN_[id number] cc: Rio Lal D.O. [address] [place] [address] Normal The [facility] Neurosurgery Office/Clinic N saul 04-13-2018 Neurosurgery Office/Clinic [...] CAMACHO, Arsalan Owen 04/13/18 15:[address] [facility] CT Spine Lumbar w/ Contrasto n [...] Further degenerative changes are detailed above.Radiation Dose Estimate:CTDI(mGy):0.67286 0 / / / kVp:120.836510 / mAs:0.454351 / / / DLP(mGy-cm):5.528254Lwiw Part:CTDI(mGy):28.883479 / / / kVp:120.712242 / mAs:294.030815 / / / DLP(mGy-cm):632.087559Ctwa Part: Final Dictated by: Naldo Aguilar MD, MDictated DT/TM: 04.06.2018 11:34 amSigned by: Naldo Aguilar MD MSigned (Electronic Signature): 04.06.2018 3:49 pmTranscribed DT/TM: 04.06.2018 1:29 pm(If Report Is Signed, Electronically Signed in Other Vendor System) Normal [facility] Inpatient Clinical Summaryon 04-06-2018 Inpatient Clinical Summary [address] [address]Fhystxvi SummaryPerson InformationName: Alvin Boyd Age: 82 Years : 1935Sex: Male PCP: Rio Lal DOMarital Status: PCP: [id number]:White Ethnicity:Not or Language:EnglishMRN: [id number] Visit Id: Reason:stenosis, bilateral leg pain Speciality: Acuity:Enc Type: Outpatient in a Bed Med Service: Radiology-Diagnostic ImagingArrival:04/06/2018 08:16:35 Discharge: Dispo Type:Address:[address] [place] [id number]:Discharged To:Home Treatments:Devices/Equipme nt:Professional Skilled Services:Special Services and [...] Assoc 04/14/2018 14:30:00 04/14/2018 15:00:[address] [facility] PTon 04-06-2018 INR Coag RelTime (PPP) 1.1 {INR} Normal <=3.5 [facility] Comment on above: Result Comment: INR has no normal range. INR Therapeutic range is:2.0-3.0 (AF, CVA, TIAs, DVT prophylaxis, acute DVT)2.5-3.5 ([facility] heart valves, recurrent thrombosis/emboli) Performed By: #### P TINR ####[place] [address] Prothrombin time (PT) Coag time (PPP) 11.3 s Normal 9.1-11.9 [facility] Comment on above: Performed By: #### P TINR ####[address] [address] PTTon 04-06-2018 aPTT 24.0 s Normal 21.0-28.8 [facility] Comment on above: Performed By: #### P TT ####[address] [address] Platelet Counton 04-06-2018 Platelets 135 x10*3/mcL Low 150-350 [facility] Comment on above: Performed By: #### P LTS ####[address] [address] XR Myelography Lumbosacral S pineon 04-06-2018 XR [...] Electronically Signed in Other Vendor System) Normal [facility] XR Spine Lumbosacral 2 or 3 [...] Electronically Signed in Other Vendor System) Normal [facility] Neurosurgery Office/Clinic N oteon 03-29-2018 Neurosurgery Office/Clinic Note Chief Complaint EPIDEMIOLOGY INTERNSHIP-BackHistory of Present Illness 82 year old male [...] He will require clearance from his warfarin manager of health prior to undergoing myelogram. Upon completion of [...] JOE Dragan Cinthia 03/29/18 12:[address] [facility] Pain Management Office/Clini c Noteon 03-16-2018 [...] Injections: 11-09-17 Date Surgery: n/a Frequency PT: [id number] Effective PT: not much help Effective Injections: [...] by Myrna Reyes CNP 03/16/18 13:37 EDT [facility] Pain Management Office/Clini c Noteon 02-19-2018 Pain [...] Injections: 11-09-17 Date Surgery: n/a Frequency PT: [id number] Effective PT: not much help Effective Injections: [...] DIAZ Myrna Gardnere 02/19/18 12:[address] [facility] History and Physicalon 01-13 History and [...] Johnathan Guzman MD 01/13/18 15:[address] [facility] Pain Management Procedure No glenn 01-13-2018 [...] cl CAMACHO, Johnathan 01/13/18 15:[address] [facility] Ambulatory Patient Education on 01-06-2018 Ambulatory [...] the next day. You must have a local az truck driver that will wait in the Pain [...] procedure: Please arrive at: Please check in at:Indirect Sales Representative Desk in the Pain Management [id number], 3rd floor [facility] OHReception Desk inside the Emergency Room at [address]*Due to the sedation given for the procedure, you will not be permitted to drive until the following day. For this reason, you will need to bring a local az truck driver to stay with you and drive [...] Hibiclens (a medicated soap) prior to your surgery.*Bow teeth, rinse with water, but do not swallow.*Please wear comfortable clothing, without metal zippers or snaps. Do not wear contact lenses. Do wear your hearing aid. Please leave all jewelry and valuables at home; you may wear your wedding ring.*Please note that due to limited space, your family member/local az truck driver will need to wait in the waiting area while you are in the procedure area. Absolutely no children should attend an appointment for an injection.*All prescription refills must be requested in advance. No prescription refills requested on the day of a procedure will be available until at least 3 business days later.*If your procedure is done in [place], you will be receiving a statement from [place] [employer] [facility] for the professional (physician's) billing fees and for the technical (hospital's) fees and a separate statement for the anesthesia provider. If your procedure is done in [place], you will be receiving a statement from [employer] [facility] for professional (physician's) billing fees, technical (hospital's) [...] questions or concerns, please contact the appropriate office:[facility] ([place] office) [phone] ([place] office) [phone] follow up appointment is scheduled for:AT:[facility] [address] [facility], 3rd floor [facility], [facility] Pain Management [address] [facility], [address], [facility] [address] [facility], 2nd floor clinic, [address]?WHAT TO EXPECT AFTER THE PROCEDURE:Please note [...] increase pain. (for example, bending, twisting, walking, financial administrative assistant).Try to avoid pain medication or sleeping during [...] call the office immediately if noted.Contact stimulator customer solutions representative with questions regarding stimulator use.(see rep [...] and call office immediately if noted.Contact stimulator customer solutions representative with questions regarding stimulator use.(see rep [...] drainage and call immediately if noted.Contact stimulator customer solutions representative with questions regarding stimulator use.(see rep card) Normal [facility] Pain Management Office/Clini c Noteon 01-06-2018 [...] PT: 01/16 Date Injections: 11-09-17 Frequency PT: [id number] Effective PT: not much help Effective Injections: [...] Myrna Reyes CNP 01/06/18 15:[address] [facility] Pain Management Office/Clini c Noteon 11-09-2017 [...] Johnathan smallwood MD 11/09/17 09:[address] [facility] Procedure Noteon 11-09-2017 Procedure Note PROCEDURE: [...] up as per treatment plan.Electronically signed by oJhnathan Guzman MD 11/09/17 09:[address] [facility] Ambulatory Patient Education on 10-14-2017 Ambulatory [...] procedure: Please arrive at: Please check in at:Indirect Sales Representative Desk in the Pain Management [id number] [place] [address], 3rd floor [facility] inside [facility] Emergency Room at [address]*Due to the sedation given for the procedure, you will not be permitted to drive until the following day. For this reason, you will need to bring a local az truck driver to stay with you and drive [...] Hibiclens (a medicated soap) prior to your surgery.*Bow teeth, rinse with water, but do not swallow.*Please wear comfortable clothing, without metal zippers or snaps. Do not wear contact lenses. Do wear your hearing aid. Please leave all jewelry and valuables at home; you may wear your wedding ring.*Please note that due to limited space, your family member/local az truck driver will need to wait in the waiting area while you are in the procedure area. Absolutely no children should attend an appointment for an injection.*All prescription refills must be requested in advance. No prescription refills requested on the day of a procedure will be available until at least 3 business days later.*If your procedure is done in [place], you will be receiving a statement from [facility] for the professional (physician's) billing fees and for the technical (hospital's) fees and a separate statement for the anesthesia provider. If your procedure is done in [place], you will be receiving a statement from [facility] for professional (physician's) billing fees, technical [...] questions or concerns, please contact the appropriate office:[facility] ([place] office) [phone] [facility] Management ([place] office) [phone] follow up appointment is scheduled for:AT:[facility] [address] [facility], 3rd floor [facility], [facility] [address] [facility], [address], [facility] [address] [facility], 2nd floor clinic, [facility] [address] [facility]?WHAT TO EXPECT AFTER THE PROCEDURE:Please note the [...] increase pain. (for example, bending, twisting, walking, financial administrative assistant).Try to avoid pain medication or sleeping during [...] call the office immediately if noted.Contact stimulator customer solutions representative with questions regarding stimulator use.(see rep [...] and call office immediately if noted.Contact stimulator customer solutions representative with questions regarding stimulator use.(see rep [...] drainage and call immediately if noted.Contact stimulator customer solutions representative with questions regarding stimulator use.(see rep card)Nerve Root InjectionThe nerve root injection is a procedure where a local anesthetic and steroid solution are administered near the nerve as it exits the spinal canal. This is done under fluoroscopy (watching under live x-ray) to deliver the drug to the precise location.Am I a candidate for a nerve root injection?At [facility], the provider examining you [...] procedure. You are required to have a local az truck driver remain in the facility before and [...] home the morning of the procedure. [facility] Office/Clini c Noteon 10-14-2017 [...] Chiropractor: 11/2016 Date PT: 01/16 Frequency PT: [id number] Effective PT: not much help Comments TENS: [...] Myrna Reyes CNP 10/14/17 11:[address] [facility] History and Physicalon 09-09 History and [...] Johnathan Guzman MD 09/09/17 11:[address] [facility] Comment on above: Order Comment: This [...] Johnathan smallwood MD 09/09/17 11:[address] [facility] Procedure Noteon 09-09-2017 Procedure Note PROCEDURE: [...] Johnathan smallwood MD 09/09/17 11:[address] [facility] History and Physicalon 08-26 History and [...] cl CAMACHO, Johnathan 08/26/17 14:[address] [facility] History and Physical History of Present [...] smallwood MD, Johnathan 08/26/17 15:[address] [facility] Procedure Noteon 08-26-2017 Procedure Note PROCEDURE: [...] cl CAMACHO, Johnathan 08/26/17 15:[address] [facility] Ambulatory Patient Education on 07-29-2017 Ambulatory [...] procedure: Please arrive at: Please check in at:Indirect Sales Representative Desk in the Pain Management [id number] [place] [address], 3rd floor [facility] Room at [address]*Due to the sedation given for the procedure, you will not be permitted to drive until the following day. For this reason, you will need to bring a local az truck driver to stay with you and drive [...] Hibiclens (a medicated soap) prior to your surgery.*Bow teeth, rinse with water, but do not swallow.*Please wear comfortable clothing, without metal zippers or snaps. Do not wear contact lenses. Do wear your hearing aid. Please leave all jewelry and valuables at home; you may wear your wedding ring.*Please note that due to limited space, your family member/local az truck driver will need to wait in the waiting area while you are in the procedure area. Absolutely no children should attend an appointment for an injection.*All prescription refills must be requested in advance. No prescription refills requested on the day of a procedure will be available until at least 3 business days later.*If your procedure is done in [place], you will be receiving a statement from [facility] for the professional (physician's) billing fees and for the technical (hospital's) fees and a separate statement for the anesthesia provider. If your procedure is done in [place], you will be receiving a statement from [facility] for professional (physician's) billing fees, technical [...] or concerns, please contact the appropriate office:[facility] ([place] office) [phone] [facility] ([place] office) [phone] follow up appointment is scheduled for:AT:[facility] [address] [facility], 3rd floor [facility], [facility] [address] [facility], [address], [facility] [address] [address] [facility] [address], 2nd floor clinic, [place] [id number] [facility]?WHAT TO EXPECT AFTER THE PROCEDURE:Please note the [...] increase pain. (for example, bending, twisting, walking, financial administrative assistant).Try to avoid pain medication or sleeping during [...] call the office immediately if noted.Contact stimulator customer solutions representative with questions regarding stimulator use.(see rep [...] and call office immediately if noted.Contact stimulator customer solutions representative with questions regarding stimulator use.(see rep [...] drainage and call immediately if noted.Contact stimulator customer solutions representative with questions regarding stimulator use.(see rep [...] sedation. You are required to have a local az truck driver remain in the facility before and during the procedure, then drive you home following the procedure.What should I expect after the procedure?You are required to have a local az truck driver remain in the waiting room of [facility] during the procedure and drive you [...] physician regarding your other diabetic medications. [facility] Office/Clini c Noteon 07-29-2017 [...] Chiropractor: 11/2016 Date PT: 01/16 Frequency PT: [id number] Effective PT: not much help Comments TENS: [...] CNP Myrna Baez 07/29/17 13:[address] [facility] History and Physicalon 06-29 History and [...] Johnathan smallwood MD 06/29/17 13:[address] [facility] Procedure Noteon 06-29-2017 Procedure Note PROCEDURE: [...] The [facility] and taken to recovery in stable condition to be discharged per criteria.Electronically signed by B Johnathan smallwood MD 06/29/17 14:34 EDT [facility] History and Physicalon 06-15 History and Physical [...] Johnathan Guzman MD 06/15/17 16:[address] [facility] Procedure Noteon 06-15-2017 Procedure Note PROCEDURE: [...] The [place] and taken to recovery in stable condition to be discharged per criteria.Electronically signed by B Johnathan smallwood MD 06/15/17 16:[address] [facility] Ambulatory Patient Education on 05-27-2017 Ambulatory [...] have a lot of pain?Your physician at [facility] will do everything possible [...] procedure. You are required to have a local az truck driver remain in the facility before and [...] procedure: Please arrive at: Please check in at:Indirect Sales Representative Desk in the Pain Management [id number] [facility], 3rd floor [facility] [place] Des[place] inside the Emergency Room at [place] [id number], [place]*Due to the sedation given for the procedure, you will not be permitted to drive until the following day. For this reason, you will need to bring a local az truck driver to stay with you and drive [...] Hibiclens (a medicated soap) prior to your surgery.*Bow teeth, rinse with water, but do not swallow.*Please wear comfortable clothing, without metal zippers or snaps. Do not wear contact lenses. Do wear your hearing aid. Please leave all jewelry and valuables at home; you may wear your wedding ring.*Please note that due to limited space, your family member/local az truck driver will need to wait in the waiting area while you are in the procedure area. Absolutely no children should attend an appointment for an injection.*All prescription refills must be requested in advance. No prescription refills requested on the day of a procedure will be available until at least 3 business days later.*If your procedure is done in [place], you will be receiving a statement from [facility] for the professional (physician's) billing fees and for the technical (hospital's) fees and a separate statement for the anesthesia provider. If your procedure is done in [place], you will be receiving a statement from [facility] for professional (physician's) billing fees, technical [...] questions or concerns, please contact the appropriate office:[facility] ([place] office) [phone] [facility] ([place] office) [phone] follow up appointment is scheduled for:AT:[facility] [address] [facility], 3rd floor [facility], [facility] [address] [facility], [address], [address], 2nd floor clinic, [address]?WHAT TO EXPECT AFTER THE PROCEDURE:Please note [...] increase pain. (for example, bending, twisting, walking, financial administrative assistant).Try to avoid pain medication or sleeping during [...] call the office immediately if noted.Contact stimulator customer solutions representative with questions regarding stimulator use.(see rep [...] and call office immediately if noted.Contact stimulator customer solutions representative with questions regarding stimulator use.(see rep [...] drainage and call immediately if noted.Contact stimulator customer solutions representative with questions regarding stimulator use.(see rep card) [facility] Office/Clini c Noteon 05-27-2017 [...] Chiropractor: 11/2016 Date PT: 01/16 Frequency PT: [id number] Effective PT: not much help Comments TENS: [...] created on his/her behalf by a trained medical education manager. The creation of this document is based on the provider?s statements to the medical education manager.Problem List/Past Medical History Ongoing Acid reflux Angina [...] Myrna infante CNP 05/27/2017 10:[address] [facility] Encounters Encounter Date Encounter Type Care Provider Facility Start: 10-19-2023 End: 10-19-2023 ambulatory [facility] Start: 04-08-2023 End: 04-08-2023 ambulatory [facility] Start: 03-30-2023 End: 04-29-2023 ambulatory SHAIKH [...] Start: 10-29-2022 End: 10-29-2022 ambulatory DRAGAN SANTOS [facility] Start: 09-30-2022 End: 10-29-2022 ambulatory NOGUEIRA H FAWWAD Facility:[facility] Start: 09-01-2022 End: 09-29-2022 ambulatory NOGUEIRA H FAWWAD Facility:[facility] Start: 07-31-2022 End: 08-30-2022 ambulatory NOGUEIRA H FAWWAD Facility:[facility] Start: 06-30-2022 End: 07-30-2022 ambulatory NOGUEIRA H FAWWAD Facility:[facility] Start: 05-30-2022 End: 06-27-2022 ambulatory NOGUEIRA H FAWWAD Facility:[facility] Start: 06-24-2019 End: 06-25-2019 Patient encounter procedure RIO LAL Facility:[facility] Start: 06-21-2019 End: 06-27-2019 Patient encounter procedure GERBER PETER Facility:[facility] Start: 04-13-2018 End: 04-14-2018 Ambulatory Rio Lal Facility:[facility] Start: 04-06-2018 End: 04-06-2018 Ambulatory RIO LAL Facility:[facility] Start: 03-29-2018 End: 03-30-2018 Ambulatory DRAGAN MORLEY Facility:Neurosurgic al [facility] Start: 03-16-2018 End: 03-17-2018 Ambulatory MYRNA DENIS AUXIER Facility:[facility] [place] Start: 02-19-2018 End: 02-20-2018 Ambulatory RIO LAL Facility:[facility] [place] Start: 01-13-2018 End: 01-13-2018 Ambulatory JOHNATHAN LAYAOS Facility:[facility] Start: 01-06-2018 End: 01-07-2018 Ambulatory MYRNA CAST Facility:[facility] [place] Start: 11-09-2017 End: 11-09-2017 Ambulatory JOHNATHAN LAYAOS Facility:[facility] Start: 10-14-2017 End: 10-15-2017 Ambulatory MYRNA DENIS CAST Facility:[facility] [place] Start: 09-09-2017 End: 09-09-2017 Ambulatory JOHNATHAN LAYAOS Facility:[facility] Start: 08-26-2017 End: 08-26-2017 Ambulatory JOHNATHAN LAYAOS Facility:[facility] Start: 07-29-2017 End: 07-30-2017 Ambulatory MYRNA CAST Facility:[facility] [place] Start: 06-29-2017 End: 06-29-2017 Ambulatory JOHNATHAN BAKOS Facility:[facility] Start: 06-15-2017 End: 06-15-2017 Ambulatory JOHNATHAN LAYAOS Facility:[facility] Start: 05-27-2017 End: 05-28-2017 Ambulatory MYRNA CAST Facility:[facility] [place] Payers Date Payer Category Payer Medicare 1958 Medicare [id number] 1958 Unknown [id number] 1958 Unknown [id number] 1936 Unknown [id number] 2.16.8 [id number] 1936 Unknown [id number] 2.16.8 [id number] 1936 Unknown [id number] 2.16.84 [id number] 1936 Unknown [id number] 2.16.84 [id number] 1936 Unknown [id number] 2.16.84 0.1.442791.3.579.2.593 1936 Unknown [id number] 2.16.84 [id number] 1936 Unknown [id number] 2.16.84 0.1.520186.3.579.2.593 1936 Unknown [id number] 2.16.84 0.1.018306.3.579.2.593 1936 Unknown [id number] 2.16.84 0.1.922675.3.579.2.593 1936 Unknown [id number] 2.16.84 0.1.678236.3.579.2.593 1936 Unknown [id number] 2.16.84 0.1.799356.3.579.2.593 1936 Unknown [id number] 2.16.84 0.1.726570.3.579.2.593 1936 Unknown [id number] 2.16.84 0.1.637880.3.579.2.593 1936 Unknown [id number] 2.16.84 0.1.271981.3.579.2.593 1936 Unknown [id number] 2.16.84 [id number] Medicare [id number] Clinical Notes 10-29-2022 to 10-19-2023 Note Date [...] Positive for arthritis. Gastrointestinal: Positive for diarrhea. [facility] 10-19-2023 Note [place] Electrophysiology Consult Note Reason for visit: 6-month [...] aortic valve stenosis, CHF HFimpEF s/p BiV COMBUSTION ENGINEER-P EF 55% he is here for 6-month [...] Atrial fibrillation (CMS/HCC) CHF (congestive heart failure) ([facility]) Coronary artery disease Heart valve disease Hyperlipidemia [...] per After Visit Summary. Follow up with [facility] anticoagulation for INR atorvastatin (Lipitor) 40 mg [...] no difficulty hear (more content not included)... [facility] 04-08-2023 Note Patient here for 6 m [...] All other systems reviewed and are negative. [facility] 04-08-2023 Note [place] Electrophysiology Consult Note Reason for visit: 6-month follow-up HPI: Alvin Boyd is a 87 y.o. year old with past medical history of CAD s/p stent 2012, A-fib, aortic valve stenosis, CHF HFimpEF s/p BiV COMBUSTION ENGINEER-P EF 55% he is here for 6-month [...] Past Medical History: Diagnosis Date Atrial fibrillation ([facility]) CHF (congestive heart failure) ([facility]) Coronary artery disease Heart valve disease Hyperlipidemia [...] cough, no w (more content not included)... [facility] 10-29-2022 Note [id number]= 5 Remains rate controlled with coreg and anticoagulation with jantoven Denied any bleeding tendencies [facility] 10-29-2022 Note Continue GDMT- lipit or, coreg, entresto, lasix [facility] II-III Currently euvolemic without exacerbation Overall pt is doing quite well No concerning symptoms today Monitor daily weights, I&O, fluid restriction 1.5-2L/day, renal function remains stable [facility] 10-29-2022 Note Continue GDMT- mario nue coreg, lipitor- no ASA with anticoagulation- jantoven [facility] 10-29-2022 Note Annual labs with PCP - Dr Gil Continue lipitor [facility] 10-29-2022 Note No concerning sympto ms today Will monitor with routine echo- or repeat echo with concerning symptoms [facility] 10-29-2022 Note [facility] CARDIOLOGY PROGR ESS NOTE [...] Gil Continue lipitor Coronary artery disease involving [place] coronary artery of [place] heart without angina pectoris Continue GDMT- continue coreg, lipitor- no ASA with anticoagulation- jantoven Acute on chronic systolic heart failure, NYHA class 2 (CMS/HCC) Continue GDMT- lipitor, coreg, entresto, lasix [facility] II-III Currently euvolemic without exacerbation Overall pt is doing quite well No concerning symptoms today Monitor daily weights, I&O, fluid restriction 1.5-2L/day, renal function remains stable Chronic atrial fibrillation (CMS/HCC) [id number]= 5 Remains rate controlled with coreg and anticoagulation with jantoven Denied any bleeding tendencies RTC 6 months or earlier if needed [facility] 10-29-2022 Note Patient here for 6 m [...] All other systems reviewed and are negative. [facility] 10-29-2022 Note Device check 2 Device functioning normal, 99% BI-V pacing 04/15/22- battery life 7 yrs, normal device function, no ventricular arrythmias, 100% Bi-V paced [facility] Summary Purpose Family History No Family History [...] section and content) DATE CREATED AUTHOR 05/19/2018 [facility] DATE CREATED AUTHOR AUTHOR'S ORGANIZ ATION 06/19/2020 [facility] DATE CREATED AUTHOR AUTHOR'S ORGANIZ ATION 05/08/2023 [facility] DATE CREATED AUTHOR AUTHOR'S ORGANIZ ATION 10/20/2023 [facility] FOR RECORDS PERTAINING TO PATIENTS WHO [...] BE BASED ON THE PRIMARY CLINICAL RECORDS. [employer] provides no warranty or guarantee of the accuracy or completeness of information in this document.
--- OUTSIDE RECORDS SUMMARY | 2023-11-27 07:39 | XMS_ITS | CCD ---
Author Name Unknown Address [address] [place] [address] Organization [facility] Care Team Providers Care Capacity Analyst Name Role Phone AUXIER, MYRNA DENIS Unavailable [...] Unavailabl e MORLEY, DRAGAN CINTHIA Unavailable Unavailable [place], Myrna Denis~[id number] Unavailable Unavailable ValoneRio Fabienne Unavailable Unavailabl e [...] Attending Unavailable VALONE, DR MCCLURE Admitting Unavailable JAUREGUIDOMIINQUE Consulting Unavailable MANSI ., JERRI Admitting Unavailable [...] Date of Onset Reaction(s) Facility (1 source) 47929,00; Translations: [Unknown] Propensity to adverse reactions (disorder) 9 [facility] Repository Problems Active Problems Problem Classification [...] myocardial infarction; Translations: [Atherosclerotic heart disease of [place] coronary artery without angina pectoris] Onset: 10-29-2022 [...] source) intermediate (current) use of anticoagulants; Translations: [CARE HOME CURRNT USE ANTICOAGULANTS] Onset: 04-29-2023 Episodic Other [...] 2022 Episodic Other aftercare (1 source) Other intermission coordinator (current) drug therapy; Translations: [OTH CARE HOME CURRENT DRUG THERAPY] Onset: 2022 Episodic Other aftercare (1 source) intermediate (current) use of aspirin; Translations: [CARE HOME CURRENT USE OF ASPIRIN] Onset: 2022 Episodic [...] Range Facility Office Visiton 10-19-2023 Follow-up visit [id number] Calin [facility] 1935 [address] [facility] Provider Department Center 10/19/[address] [facility] No family history on file Level of Service:28462 [place] OFFICE/OUTPATIENT ESTABLISHED MOD MDM 30-39 MIN Normal [facility] Office Visiton 04-08-2023 Follow-up visit [id number] Calin Boyd [facility] 1935 M Date Provider Department Center 04/08/[address] 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 Dana Angulo Basophils/100 WBC (Bld) 0.8 % Normal 0.2-2.0 [facility] Comment on above: Performed By: #### C BC #### [facility] [address] [place] [address] Dr. Dana Angulo EO # 0.1 103/ul Normal 0.0-0.7 [facility] Comment on above: Performed By: #### C BC #### [facility] [address] [place] [address] Dr. Dana Angulo Eosinophils/100 WBC (Bld) 0.9 % Normal 0.9-7.0 [facility] Comment on above: Performed By: #### C BC #### [facility] [address] [place] [address] Dr. Dana Angulo Erythrocyte distribution width (RBC) [Ratio] 13.2 % Normal 11.0-15.0 [facility] Comment on above: Performed By: #### C BC #### [facility] [address] [place] [address] Dr. Dana Angulo Hematocrit (Bld) [Volume fraction] 37.1 % Critically low 42.0-54.0 [facility] Comment on above: Performed By: #### C BC #### [facility] [address] [place] [address] Dr. Dana Angulo Hemoglobin (Bld) [Mass/Vol] 12.1 g/dL Critically low 14.0-18.0 [facility] Comment on above: Performed By: #### C BC #### [facility] [address] [place] [address] Dr. Dana Angulo IG # 0.03 10e3/ul Normal 0.00-0.03 [facility] Comment on above: Performed By: #### C BC #### [facility] [address] [place] [address] Dr. Daan Angulo IG % 0.4 % Normal 0.0-0.5 [facility] Comment on above: Performed By: #### C BC #### [facility] [address] [place] [address] Dr. Dana Angulo LYMPH # 1.4 103/ul Normal 1.2-3.8 [facility] Comment on above: Performed By: #### C BC #### [facility] [address] [place] [address] Dr. Dana Angulo Lymphocytes/100 WBC (Bld) 19.0 % Critically low 20.5-60.0 [facility] Comment on above: Performed By: #### C BC #### [facility] [address] [place] [address] Dr. Dana Angulo MANUAL DIFF REQ NO Normal [facility] Comment on above: Performed By: #### C BC #### [facility] [address] [place] [address] Dr. Dana Angulo MCH (RBC) [Entitic mass] 30.6 pg Normal 25.9-34.0 [facility] Comment on above: Performed By: #### C BC #### [facility] [address] [place] [address] Dr. Dana Angulo MCHC (RBC) [Mass/Vol] 32.6 g/dL Normal 29.9-35.2 [facility] Comment on above: Performed By: #### C BC #### [facility] [address] [place] [address] Dr. Dana Angulo MCV (RBC) [Entitic vol] 93.7 fL Normal 80.0-94.0 [facility] Comment on above: Performed By: #### C BC #### [facility] [address] [place] [address] Dr. Dana Angulo MONO # 0.5 103/ul Normal 0.3-0.8 [facility] Comment on above: Performed By: #### C BC #### [facility] [address] [place] [address] Dr. Dana Angulo Monocytes/100 WBC (Bld) 7.2 % Normal 1.7-12.0 [facility] Comment on above: Performed By: #### C BC #### [facility] [address] [place] [address] Dr. Dana Angulo NEUT # 5.4 103/ul Normal 1.4-6.5 [facility] Comment on above: Performed By: #### C BC #### [facility] [address] [place] [address] Dr. Dana Angulo Neutrophils/100 WBC (Bld) 71.7 % Normal 43.0-75.0 [facility] Comment on above: Performed By: #### C BC #### [facility] [address] [place] [address] Dr. Dana Angulo Platelet mean volume (Bld) [Entitic vol] 9.6 fL Normal 9.5-13.5 [facility] Comment on above: Performed By: #### C BC #### [facility] [address] [place] [address] Dr. Dana Angulo PLT 165 103/ul Normal 150-450 [facility] Comment on above: Performed By: #### C BC #### [facility] [address] [place] [address] Dr. Dana Angulo RBC 3.96 106/ul Critically low 4.70-6.10 [facility] Comment on above: Performed By: #### C BC #### [facility] [address] [place] [address] Dr. Dana Angulo WBC 7.5 103/ul Normal 4.0-11.0 [facility] Comment on above: Performed By: #### C BC #### [facility] [address] [place] [address] Dr. Dana Angulo ER URINE PROFILEon 3 Bilirubin Ql (U) Negative Normal NEGATIVE [facility] Comment on above: Performed By: #### ANGELINA FRIENDRO #### [facility] [address] [place] [address] Dr. Dana Angulo Clarity (U) CLEAR Normal CLEAR [facility] Comment on above: Performed By: #### ANGELINA FRIENDRO #### [facility] [address] [place] [address] Dr. Dana Angulo Color (U) LT. YELLOW Normal YELLOW [facility] Comment on above: Performed By: #### ANGELINA FRIENDRO #### [facility] [address] [place] [address] Dr. Dana GÓMEZ A micrscopic examina tion will be performed if indicated. Normal [facility] Comment on above: Performed By: #### Marino KENYON UMICRO #### [facility] [address] [place] [address] Dr. Dana Angulo Glucose Ql (U) Negative Normal NEGATIVE [facility] Comment on above: Performed By: #### Marino KENYON UMICRO #### [facility] [address] [place] [address] Dr. Dana Angulo Hemoglobin Ql (U) Negative Normal NEGATIVE [facility] Comment on above: Performed By: #### Marino KENYON UMICRO #### [facility] [address] [place] [address] Dr. Dana Angulo Ketones Ql (U) Negative Normal NEGATIVE [facility] Comment on above: Performed By: #### Marino KENYON UMICRO #### [facility] [address] [place] [address] Dr. Dana Angulo LEUKOCYTES TRACE Abnormal NEGATIVE [facility] Comment on above: Performed By: #### Marino KENYON UMICRO #### [facility] [address] [place] [address] Dr. Dana Angulo Nitrite Ql (U) Negative Normal NEGATIVE [facility] Comment on above: Performed By: #### Marino KENYON UMICRO #### [facility] [address] [place] [address] Dr. Dana Angulo pH (U) 6.0 [pH] Normal 5-9 [facility] Comment on above: Performed By: #### Marino KENYON UMICRO #### [facility] [address] [place] [address] Dr. Dana Angulo SPEC GRAVITY 1.015 Normal 1.005-<=1.02 5 [facility] Comment on above: Performed By: #### Marino KENYON UMICRO #### [facility] [address] [place] [address] Dr. Dana Angulo UA PROTEIN Negative Normal NEGATIVE/ TRACE [facility] Comment on above: Performed By: #### ANGELINA FRIENDRO #### [facility] [address] [place] [address] Dr. Dana Angulo UR MICRO IND INDICATED Normal [facility] Comment on above: Performed By: #### E ANGELINA KENYONRO #### [facility] [address] [place] [address] Dr. Dana Angulo Urobilinogen Qn (U) 0.2 {Delia'U}/dL Normal 0.2 - 1.0 [facility] Comment on above: Performed By: #### ANGELINA FRIENDRO #### [facility] [address] [place] [address] Dr. Dana Angulo LACTATE/LACTIC ACIDon 2022 Lactate [Moles/Vol] 1.1 mmol/L Normal 0.4-1.9 [facility] Comment on above: Performed By: #### L ACT #### [facility] [address] [place] [address] Dr. Dana Angulo LIPASEon 12-18-2022 Lipase [Catalytic activity/Vol] 68.0 U/L Critically low 73.0-393.0 [facility] Comment on above: Performed By: #### C BC #### [facility] [address] [place] [address] Dr. Dana Angulo OCC BLD IMMUNO SCREENon 11-30 OCCULT BLOOD Negative Normal NEGATIVE [facility] Comment on above: Performed By: #### H STROPN #### [facility] [address] [place] [address] Dr. Dana Angulo PROF 14(COMP METB)on 023 Albumin [Mass/Vol] 3.8 g/dL Normal 3.4-5.0 [facility] Comment on above: Performed By: #### C BC #### [facility] [address] [place] [address] Dr. Dana Angulo Albumin/Globulin [Mass ratio] 1.3 {ratio} Normal [facility] Comment on above: Performed By: #### C BC #### [facility] [address] [place] [address] Dr. Dana Angulo ALP [Catalytic activity/Vol] 70 U/L Normal 46-116 [facility] Comment on above: Performed By: #### C BC #### [facility] [address] [place] [address] Dr. Dana Angulo ALT [Catalytic activity/Vol] 22 U/L Normal 16-63 [facility] Comment on above: Performed By: #### C BC #### [facility] [address] [place] [address] Dr. Dana Angulo Anion gap [Moles/Vol] 13.5 mmol/L Normal [facility] Comment on above: Performed By: #### C BC #### [facility] [address] [place] [address] Dr. Dana Angulo AST [Catalytic activity/Vol] 25 U/L Normal 15-37 [facility] Comment on above: Performed By: #### C BC #### [facility] [address] [place] [address] Dr. Dana Angulo Bilirubin [Mass/Vol] 1.0 mg/dL Normal 0.2-1.0 [facility] Comment on above: Performed By: #### C BC #### [facility] [address] [place] [address] Dr. Dana Angulo Calcium [Mass/Vol] 9.7 mg/dL Normal 8.5-10.1 [facility] Comment on above: Performed By: #### C BC #### [facility] [address] [place] [address] Dr. Dana Angulo Chloride [Moles/Vol] 103 mmol/L Normal 98-107 [facility] Comment on above: Performed By: #### C BC #### [facility] [address] [place] [address] Dr. Dana Angulo CO2 [Moles/Vol] 25.1 mmol/L Normal 21.0-32.0 [facility] Comment on above: Performed By: #### C BC #### [facility] [address] [place] [address] Dr. Dana Angulo Creatinine [Mass/Vol] 1.07 mg/dL Normal 0.70-1.30 [facility] Comment on above: Performed By: #### C BC #### [facility] [address] [address] [address] Dana Angulo EGFR-AF HAITIAN >60 Normal >=60 [facility] Comment on above: Performed By: #### C BC #### [facility] [address] [address] [address] Dana Angulo EGFR-NON AF HAITIAN >60 Normal >=60 [facility] Comment on above: Performed By: #### C BC #### [facility] [address] [address] [address] Dana Angulo Globulin (S) [Mass/Vol] 3.0 g/dL Normal [facility] Comment on above: Performed By: #### C BC #### [facility] [address] [place] [address] Dr. Dana Angulo Glucose [Mass/Vol] 115 mg/dL Critically high 74-106 [facility] Comment on above: Performed By: #### C BC #### [facility] [address] [place] [address] Dr. Dana Angulo Potassium [Moles/Vol] 3.6 mmol/L Normal 3.5-5.1 [facility] Comment on above: Performed By: #### C BC #### [facility] [address] [place] [address] Dr. Dana Angulo Protein [Mass/Vol] 6.8 g/dL Normal 6.4-8.2 [facility] Comment on above: Performed By: #### C BC #### [facility] [address] [place] [address] Dr. Dana Angulo Sodium [Moles/Vol] 138 mmol/L Normal 136-145 [facility] Comment on above: Performed By: #### C BC #### [facility] [address] [place] [address] Dr. Dana Angulo Urea nitrogen [Mass/Vol] 39.0 mg/dL Critically high 7.0-18.0 [facility] Comment on above: Performed By: #### C BC #### [facility] [address] [place] [address] Dr. Dana Angulo Urea nitrogen/Creatinin e [Mass ratio] 36.4 mg/mg Normal [facility] Comment on above: Performed By: #### C BC #### [facility] [address] [place] [address] Dr. Dana Angulo PROTIMEon 12-18-2022 INR Coag (PPP) [Relative time] 2.15 {INR} Normal [facility] Comment on above: Performed By: #### P T, PTT #### [facility] [address] [place] [address] Dr. Dana Angulo INR GUIDELINES SEE BELOW Normal [facility] Comment on above: Result Comment: BETTINA RED INR: 2.0 - 3.0 CONDITIONS NOT LISTED BELOW 2.5 - 3.5 FOR PROSTHETIC HEART VALVE REPLACEMENT 2.5 - 3.5 RECURRENT THROMBOSIS Performed By: #### P T, PTT #### [facility] [address] [place] [address] Dr. Dana Angulo PT Coag (PPP) [Time] 21.8 s Critically high 9.0-11.6 [facility] Comment on above: Performed By: #### P T, PTT #### [facility] [address] [place] [address] Dr. Dana Angulo PTTon 12-18-2022 aPTT Coag (Bld) [Time] 35.3 s Normal 22.3-36.2 [facility] Comment on above: Performed By: #### P T, PTT #### [facility] [address] [place] [address] Dr. Dana Angulo TROPONIN, HIGH SENSITIVITYon 12-18-2022 HSTROP 37.2 pg/mL Normal 4.0-76.1 [facility] Comment on above: Result Comment: CUT- OFF POINTS HAVE BEEN ESTABLISHED BASED ON THE FOURTH UNIVERSAL DEFINITIONS OF MYOCARDIAL INFARCTION. THE UPPER REFERENCE LIMIT (URL) OF TROPONIN, DEFINED THE 99TH PERCENTILE OF cTnI DISTRIBUTION IN A REFERENCE POPULATION, HAS BEEN CONFIRMED THE DECISION THRESHOLD FOR [place] DIAGNOSIS. Performed By: #### H STROPN #### [facility] [address] [place] [address] Dr. Dana Angulo HSTROP 39.8 pg/mL Normal 4.0-76.1 [facility] Comment on above: Result Comment: CUT- OFF POINTS HAVE BEEN ESTABLISHED BASED ON THE FOURTH UNIVERSAL DEFINITIONS OF MYOCARDIAL INFARCTION. THE UPPER REFERENCE LIMIT (URL) OF TROPONIN, DEFINED THE 99TH PERCENTILE OF cTnI DISTRIBUTION IN A REFERENCE POPULATION, HAS BEEN CONFIRMED THE DECISION THRESHOLD FOR [place] DIAGNOSIS. Performed By: #### H STROPN #### [facility] [address] [place] [address] Dr. Dana Angulo URINE MICROSCOPIC ONLYon BACTERIA NONE SEEN Normal NONE SEEN [facility] Comment on above: Performed By: #### Marino KENYON UMICRO #### [facility] [address] [place] [address] Dr. Dana Angulo Bacteria identified Cx Nom (U) NOT INDICATED Normal [facility] Comment on above: Performed By: #### Marino KENYON UMICRO #### [facility] [address] [place] [address] Dr. Dana Angulo CAST NONE SEEN Normal NONE SEEN [facility] Comment on above: Performed By: #### Marino KENYON UMICRO #### [facility] [address] [place] [address] Dr. Dana Angulo Crystals LM Nom (Urine sed) NONE SEEN Normal NONE SEEN [facility] Comment on above: Performed By: #### Marino KENYON UMICRO #### [facility] [address] [place] [address] Dr. Dana Angulo Epithelial cells LM Ql (Urine sed) FEW Abnormal NONE SEEN /RARE [facility] Comment on above: Performed By: #### E KOSTAS UMICRO #### [facility] [address] [place] [address] Dr. Dana Angulo MUCOUS NONE SEEN Normal NONE SEEN [facility] Comment on above: Performed By: #### E KOSTAS UMICRO #### [facility] [address] [place] [address] Dr. Dana Angulo RBC NONE SEEN Abnormal 0-2 [facility] Comment on above: Performed By: #### E HUMBERTO KENYON #### [facility] [address] [address] [address] Dana Angulo WBC 2-5 Abnormal NONE SEEN [facility] Comment on above: Performed By: #### E HUMBERTO KENYON #### [facility] [address] [place], [place] [address] Dr. Dana Angulo US SINGLE QUAD RT [...] DOMINIQUE JAUREGUI Date: 2022-12-18 13:05 Normal [facility] BNPon 11-11-2022 Natriuretic peptide B (Bld) [Mass/Vol] 2364.0 pg/mL Critically high <=1,800.0 [facility] Comment on above: Performed By: #### H ASHISH #### [facility] [address] [address] [address] Dana Angulo BUNon 11-11-2022 Urea nitrogen [Mass/Vol] 18.0 mg/dL Normal 7.0-18.0 [facility] Comment on above: Performed By: #### H ASHISH #### [facility] [address] [address] [address] Dana Angulo CBC AUTO DIFFon 11-11-2022 BASO # 0.0 103/ul Normal 0.0-0.1 [facility] Comment on above: Performed By: #### C BC #### [facility] [address] [address] [address] Dana Angulo Basophils/100 WBC (Bld) 0.6 % Normal 0.2-2.0 [facility] Comment on above: Performed By: #### C BC #### [facility] [address] [place] [address] Dr. Dana Angulo EO # 0.1 103/ul Normal 0.0-0.7 [facility] Comment on above: Performed By: #### C BC #### [facility] [address] [place] [address] Dr. Dana Angulo Eosinophils/100 WBC (Bld) 1.3 % Normal 0.9-7.0 [facility] Comment on above: Performed By: #### C BC #### [facility] [address] [place] [address] Dr. Dana Angulo Erythrocyte distribution width (RBC) [Ratio] 13.9 % Normal 11.0-15.0 [facility] Comment on above: Performed By: #### C BC #### [facility] [address] [place] [address] Dr. Dana Angulo Hematocrit (Bld) [Volume fraction] 36.2 % Critically low 42.0-54.0 [facility] Comment on above: Performed By: #### C BC #### [facility] [address] [address] [address] Dana Angulo Hemoglobin (Bld) [Mass/Vol] 11.4 g/dL Critically low 14.0-18.0 [facility] Comment on above: Performed By: #### C BC #### [facility] [address] [place] [address] Dr. Dana Angulo IG # 0.02 10e3/ul Normal 0.00-0.03 [facility] Comment on above: Performed By: #### C BC #### [facility] [address] [place] [address] Dr. Dana Angulo IG % 0.3 % Normal 0.0-0.5 [facility] Comment on above: Performed By: #### C BC #### [facility] [address] [place] [address] Dr. Dana Angulo LYMPH # 1.4 103/ul Normal 1.2-3.8 [facility] Comment on above: Performed By: #### C BC #### [facility] [address] [place] [address] Dr. Dana Angulo Lymphocytes/100 WBC (Bld) 19.8 % Critically low 20.5-60.0 [facility] Comment on above: Performed By: #### C BC #### [facility] [address] [place] [address] Dr. Dana Angulo MANUAL DIFF REQ NO Normal [facility] Comment on above: Performed By: #### C BC #### [facility] [address] [place] [address] Dr. Dana Angulo MCH (RBC) [Entitic mass] 30.9 pg Normal 25.9-34.0 [facility] Comment on above: Performed By: #### C BC #### [facility] [address] [place] [address] Dr. Dana Angulo MCHC (RBC) [Mass/Vol] 31.5 g/dL Normal 29.9-35.2 [facility] Comment on above: Performed By: #### C BC #### [facility] [address] [place] [address] Dr. Dana Angulo MCV (RBC) [Entitic vol] 98.1 fL Critically high 80.0-94.0 [facility] Comment on above: Performed By: #### C BC #### [facility] [address] [place] [address] Dr. Dana Angulo MONO # 0.5 103/ul Normal 0.3-0.8 [facility] Comment on above: Performed By: #### C BC #### [facility] [address] [place] [address] Dr. Dana Angulo Monocytes/100 WBC (Bld) 6.9 % Normal 1.7-12.0 [facility] Comment on above: Performed By: #### C BC #### [facility] [address] [address] [address] Dana Angulo NEUT # 5.1 103/ul Normal 1.4-6.5 [facility] Comment on above: Performed By: #### C BC #### [facility] [address] [place] [address] Dr. Dana Angulo Neutrophils/100 WBC (Bld) 71.1 % Normal 43.0-75.0 [facility] Comment on above: Performed By: #### C BC #### [facility] [address] [place] [address] Dr. Dana Angulo Platelet mean volume (Bld) [Entitic vol] 9.4 fL Critically low 9.5-13.5 [facility] Comment on above: Performed By: #### C BC #### [facility] [address] [place] [address] Dr. Dana Angulo PLT 164 103/ul Normal 150-450 [facility] Comment on above: Performed By: #### C BC #### [facility] [address] [place] [address] Dr. Dana Angulo RBC 3.69 106/ul Critically low 4.70-6.10 [facility] Comment on above: Performed By: #### C BC #### [facility] [address] [place] [address] Dr. Dana Angulo WBC 7.1 103/ul Normal 4.0-11.0 [facility] Comment on above: Performed By: #### C BC #### [facility] [address] [place] [address] Dr. Dana Angulo CREATININEon 11-11-2022 Creatinine [Mass/Vol] 1.10 mg/dL Normal 0.70-1.30 [facility] Comment on above: Performed By: #### H STROPN #### [facility] [address] [address] [address] Dana Angulo EGFR-AF HAITIAN >60 Normal >=60 [facility] Comment on above: Result Comment: Prev iously reported as: >77 On 11/11/2022 10:45 By [email or web address] Previously reported as: (blank) On 11/11/2022 10:44 By BL3 Performed By: #### H STROPN #### [facility] [address] [address] [address] Dana Angulo EGFR-NON AF HAITIAN >60 Normal >=60 [facility] Comment on above: Result Comment: Prev iously reported as: >64 On 11/11/2022 10:45 By BL3 Previously reported as: (blank) On 11/11/2022 10:44 By BL3 Performed By: #### H STROPN #### [facility] [address] [place] [address] Dr. Dana Angulo CULTURE URINEon 11-11-2022 CULTURE URINE Culture Observations : NO GROWTH. Normal [facility] Comment on above: Performed By: #### C BC #### [facility] [address] [place] [address] Dr. Dana Angulo ELECTROLYTESon 11-11-2022 Anion gap [Moles/Vol] 12.7 mmol/L Normal [facility] Comment on above: Performed By: #### H STROPN #### [facility] [facility] [address] [place] [address] Dr. Dana Angulo Chloride [Moles/Vol] 103 mmol/L Normal 98-107 [facility] Comment on above: Performed By: #### H STROPN #### [facility] [address] [place] [address] Dr. Dana Angulo CO2 [Moles/Vol] 29.0 mmol/L Normal 21.0-32.0 [facility] Comment on above: Performed By: #### H STROPN #### [facility] [address] [place] [address] Dr. Dana Angulo Potassium [Moles/Vol] 4.7 mmol/L Normal 3.5-5.1 [facility] Comment on above: Performed By: #### H STROPN #### [facility] [address] [address] [address] Dana Angulo Sodium [Moles/Vol] 140 mmol/L Normal 136-145 [facility] Comment on above: Performed By: #### H STROPN #### [facility] [address] [address] [address] Dana Angulo GLYCOHEMOGLOBIN A1Con 2021 ADA RECOMMENDATION SEE BELOW Normal [facility] Comment on above: Result Comment: ADA RECOMMENDED LIMIT 4.0 - 6.0 ADA THERAPEUTIC TARGET < 7.0 ACTION SUGGESTED > 7.0 Performed By: #### H STROPN #### [facility] [address] [address] [address] Dana Angulo Glucose [Mass/Vol] 120 mg/dL Normal [facility] Comment on above: Performed By: #### H STROPN #### [facility] [address] [address] [address] Dana Angulo HbA1c (Bld) [Mass fraction] 5.8 % Normal 4.5-6.2 [facility] Comment on above: Performed By: #### H STROPN #### [facility] [address] [place] [address] Dr. Dana Angulo LIPID PROFILEon 11-11-2022 CHOL-HDL RATIO NORM SEE BELOW Normal [facility] Comment on above: Result Comment: 3.3 - 4.4 LOW RISK 4.4 - 7.1 AVERAGE RISK 7.1 - 11.0 MODERATE RISK >11.0 HIGH RISK Performed By: #### H STROPN #### [facility] [address] [address] [address] Dana Angulo Cholesterol [Mass/Vol] 91 mg/dL Normal <=200 [facility] Comment on above: Performed By: #### H STROPN #### [facility] [address] [address] [address] Dana Angulo Cholesterol in HDL [Mass/Vol] 49 mg/dL Normal 40-60 [facility] Comment on above: Performed By: #### H STROPN #### [facility] [address] [address] [address] Dana Angulo Cholesterol in LDL [Mass/Vol] 29.4 mg/dL Normal [facility] Comment on above: Performed By: #### H STROPN #### [facility] [address] [address] [address] Dana Angulo Cholesterol.total/ Cholesterol in HDL [Mass ratio] 1.9 {ratio} Normal [facility] Comment on above: Performed By: #### H STROPN #### [facility] [address] [address] [address] Dana Angulo HDL NORMAL > or = 60 mg/dl - LO W CARDIOVASCULAR RISK <40 mg/dl - HIGH CARDIOVASCULAR RISK Normal [facility] Comment on above: Performed By: #### H STROPN #### [facility] [address] [address] [address] Dana Angulo LDL CALC NORMAL SEE BELOW Normal [facility] Comment on above: Result Comment: <100 mg/dl OPTIMAL 100 - 129 mg/dl NEAR OR ABOVE OPTIMAL 130 - 159 mg/dl BORDERLINE HIGH 160 - 189 mg/dl HIGH >190 mg/dl VERY HIGH Performed By: #### H STROPN #### [facility] [address] [address] [address] Dana Angulo Triglyceride [Mass/Vol] 63 mg/dL Normal <=150 [facility] Comment on above: Performed By: #### H STROPN #### [facility] [address] [address] [address] Dana Angulo VLDL CALC 12.6 mg/dL Normal [facility] Comment on above: Performed By: #### H STROPN #### [facility] [address] [address] [address] Dana Angulo LIVER PROFILEon 11-11-2022 Albumin [Mass/Vol] 3.7 g/dL Normal 3.4-5.0 [facility] Comment on above: Performed By: #### H STROPN #### [facility] [address] [address] [address] Dana Angulo Albumin/Globulin [Mass ratio] 1.2 {ratio} Normal [facility] Comment on above: Performed By: #### H STROPN #### [facility] [address] [address] [address] Dana Angulo ALP [Catalytic activity/Vol] 68 U/L Normal 46-116 [facility] Comment on above: Performed By: #### H STROPN #### [facility] [address] [address] [address] Dana Angulo ALT [Catalytic activity/Vol] 20 U/L Normal 16-63 [facility] Comment on above: Performed By: #### H STROPN #### [facility] [address] [address] [address] Dana Angulo AST [Catalytic activity/Vol] 21 U/L Normal 15-37 [facility] Comment on above: Performed By: #### H STROPN #### [facility] [address] [address] [address] Dana Angulo BILI, CONJUGATED 0.3 mg/dL Critically high 0.0-0.2 [facility] Comment on above: Performed By: #### H STROPN #### [facility] [address] [address] [address] Dana Angulo Bilirubin [Mass/Vol] 0.9 mg/dL Normal 0.2-1.0 [facility] Comment on above: Performed By: #### H STROPN #### [facility] [address] [address] [address] Dana Angulo Globulin (S) [Mass/Vol] 3.1 g/dL Normal [facility] Comment on above: Performed By: #### H STROPN #### [facility] [address] [address] [address] Dana Angulo Protein [Mass/Vol] 6.8 g/dL Normal 6.4-8.2 [facility] Comment on above: Performed By: #### H STROPN #### [facility] [address] [address] [address] Dana Angulo TSHon 11-11-2022 TSH 3.426 uIU/mL Normal 0.358-3.740 [facility] Comment on above: Performed By: #### H STROPN #### [facility] [address] [address] [address] Dana Angulo UA (CLEAN/CATCH) SUPERVISOR VACUUM METALIZING/MICRO I F IND.on 11-11-2022 Bilirubin Ql (U) Negative Normal NEGATIVE [facility] Comment on above: Performed By: #### U ACSIND, UMICRO #### [facility] [address] [address] [address] Dana Angulo Clarity (U) CLEAR Normal CLEAR [facility] Comment on above: Performed By: #### U ACSIND, UMICRO #### [facility] [address] [place] [address] Dr. Dana Angulo Color (U) YELLOW Normal YELLOW [facility] Comment on above: Performed By: #### U ACSIND, UMICRO #### [facility] [address] [place] [address] Dr. Dana Angulo Glucose Ql (U) Negative Normal NEGATIVE [facility] Comment on above: Performed By: #### U ACSIND, UMICRO #### [facility] [address] [address] [address] Dana Angulo Hemoglobin Ql (U) Negative Normal NEGATIVE [facility] Comment on above: Performed By: #### U ACSIND, UMICRO #### [facility] [address] [place] [address] Dr. Dana Angulo Ketones Ql (U) TRACE Abnormal NEGATIVE [facility] Comment on above: Performed By: #### U ACSIND, UMICRO #### [facility] [address] [address] [address] Dana Angulo LEUKOCYTES SMALL Abnormal NEGATIVE [facility] Comment on above: Performed By: #### U ACSIND, UMICRO #### [facility] [address] [place] [address] Dr. Dana Angulo Nitrite Ql (U) Negative Normal NEGATIVE [facility] Comment on above: Performed By: #### U ACSIND, UMICRO #### [facility] [address] [place] [address] Dr. Dana Angulo pH (U) 6.0 [pH] Normal 5-9 [facility] Comment on above: Performed By: #### U ACSREGGIE UMICRO #### [facility] [address] [place] [address] Dr. Dana Angulo SPEC GRAVITY 1.015 Normal 1.005-<=1.02 5 [facility] Comment on above: Performed By: #### U ACSREGGIE UMICRO #### [facility] [address] [place] [address] Dr. Dana Angulo UA PROTEIN TRACE Normal NEGATIVE/ TRACE [facility] Comment on above: Performed By: #### U ACSREGGIE UMICRO #### [facility] [address] [place] [address] Dr. Dana Angulo UR MICRO IND INDICATED Normal [facility] Comment on above: Performed By: #### U ACSREGGIE UMICRO #### [facility] [address] [place] [address] Dr. Dana Angulo Urobilinogen Qn (U) 1.0 {Delia'U}/dL Normal 0.2 - 1.0 [facility] Comment on above: Performed By: #### U ACSREGGIE ICRO #### [facility] [address] [place] [address] Dr. Dana Angulo URINE MICROSCOPIC ONLYon BACTERIA TRACE Abnormal NONE SEEN [facility] Comment on above: Performed By: #### U ACSREGGIE UMICRO #### [facility] [address] [place] [address] Dr. Dana Angulo Bacteria identified Cx Nom (U) INDICATED Normal [facility] Comment on above: Performed By: #### U ACSREGGIE UMICRO #### [facility] [address] [place] [address] Dr. Dana Angulo CAST SEEN Abnormal NONE SEEN [facility] Comment on above: Performed By: #### U ACSREGGIE UMICRO #### [facility] [address] [place] [address] Dr. Dana Angulo Crystals LM Nom (Urine sed) NONE SEEN Normal NONE SEEN [facility] Comment on above: Performed By: #### U ACSIND, UMICRO #### [facility] [address] [address] [address] Dana Angulo Epithelial cells LM Ql (Urine sed) RARE Normal NONE SEEN /RARE [facility] Comment on above: Performed By: #### U ACSIND, UMICRO #### [facility] [address] [address] [address] Dana Angulo MUCOUS NONE SEEN Normal NONE SEEN [facility] Comment on above: Performed By: #### U ACSIND, UMICRO #### [facility] [address] [address] [address] Dana Angulo RBC 2-5 Abnormal 0-2 [facility] Comment on above: Performed By: #### U ACSIND, UMICRO #### [facility] [address] [place] [address] Dr. Dana Angulo WBC 2-5 Abnormal NONE SEEN [facility] Comment on above: Performed By: #### U ACSIND, UMICRO #### [facility] [address] [address] [address] Dana Angulo VITAMIN D 25 OHon 11-11-2022 VIT D 25-OH 30.2 ng/mL Normal [facility] Comment on above: Performed By: #### C BC #### [facility] [address] [place] [address] Dr. Dana Angulo VIT D RANGES SEE BELOW Normal [facility] Comment on above: Result Comment: <20 ng/mL Vit D deficient 20 - <30 ng/mL Vit D insufficient 30 - 100 ng/mL Vit D sufficient >100 ng/mL Potential Toxicity Performed By: #### C BC #### [facility] [address] [place] [address] Dr. Dana Angulo Office Visiton 10-29-2022 Follow-up visit [id number] Calin Boyd 1935 M Date Provider Department Center 10/29/2022 DRAGAN KRUSE [facility] No family history on file Level of Service:78130 [place] OFFICE/OUTPATIENT ESTABLISHED MOD MDM 30-39 MIN Reason for Visit and Comments: Coronary Artery Disease [187] Atrial Fibrillation [80] Valve Disorder [3372] Congestive Heart Failure [127] Normal [facility] Cardiovascular Lab Reporton 06-25-2019 Cardiovascular Lab Report [facility] Patient Name: [facility] Alvin Sanchez MR #: [id number] Department of Physician: Geetha Blankenship M.D. Division of Service Date: 06/24/2019 Cardiology Birthdate: 1935 Adult Cardiovascular Room #: Services [facility] [address] [place] [address] Cardiovascular Laboratory Report FINAL IMPRESSION: 1. Normal right and left ventricular filling pressures. 2. Preserved cardiac output and cardiac index. 3. Mild pulmonary artery hypertension. INDICATIONS: The patient is an 83-year-old male, who has heart failure, status post FILENET ARCHITECT. He has been experiencing shortness of breath [...] modified Seldinger technique and ultrasound guidance, a 5-Moldovan micropuncture was placed in right internal jugular vein. This was upsized to a regular 6-Moldovan pinnacle sheath and a 6-Moldovan Jackson was used for right heart catheterization. [...] Lucas M.D. Date Trans: 06/25/2019 05:12 A/deniz [id number] cc: Rio Lal D.O. [address] [place] [address] Normal [facility] Neurosurgery Office/Clinic N saul 04-13-2018 Neurosurgery [...] CAMACHO, Arsalan Owen 04/13/18 15:39 EDT Normal [facility] CT Spine Lumbar w/ Contrasto n 04-06-2018 [...] Further degenerative changes are detailed above.Radiation Dose Estimate:CTDI(mGy):0.18448 0 / / / kVp:120.835892 / mAs:0.910846 / / / DLP(mGy-cm):5.206256Aiba Part:CTDI(mGy):28.199841 / / / kVp:120.186587 / mAs:294.373257 / / / DLP(mGy-cm):632.168348Dvpi Part: Final Dictated by: Naldo Aguilar MD, MDictated DT/TM: 04.06.2018 11:34 amSigned by: Naldo Aguilar MD MSigned (Electronic Signature): 04.06.2018 3:49 pmTranscribed DT/TM: 04.06.2018 1:29 pm(If Report Is Signed, Electronically Signed in Other Vendor System) Normal [facility] Inpatient Clinical Summaryon 04-06-2018 Inpatient Clinical Summary [address] [id number] SummaryPerson InformationName: Alvin Boyd Age: 82 Years : 1935Sex: Male PCP: Rio Lal DOMarital Status: PCP: [id number]:White Ethnicity:Not or Language:EnglishMRN: [id number] Visit Id: Reason:stenosis, bilateral leg pain Speciality: Acuity:Enc Type: Outpatient in a Bed Med Service: Radiology-Diagnostic ImagingArrival:04/06/2018 08:16:35 Discharge: Dispo Type:Address:[address] [place] [address]:Discharged To:Home Treatments:Devices/Equipme nt:Professional Skilled Services:Special Services and [...] Assoc 04/14/2018 14:30:00 04/14/2018 15:00:00 Confirmed Normal [facility] PTon 04-06-2018 INR Coag RelTime (PPP) 1.1 {INR} Normal <=3.5 [facility] Comment on above: Result Comment: INR has no normal range. INR Therapeutic range is:2.0-3.0 (AF, CVA, TIAs, DVT prophylaxis, acute DVT)2.5-3.5 ([facility] heart valves, recurrent thrombosis/emboli) Performed By: #### P TINR ####[place] [address] Prothrombin time (PT) Coag time (PPP) 11.3 s Normal 9.1-11.9 [facility] Comment on above: Performed By: #### P TINR ####[address] [address] PTTon 04-06-2018 aPTT 24.0 s Normal 21.0-28.8 [facility] Comment on above: Performed By: #### P TT ####[address] [address] Platelet Counton 04-06-2018 Platelets 135 x10*3/mcL Low 150-350 [facility] Comment on above: Performed By: #### P LTS ####[address] [address] XR Myelography Lumbosacral S pineon 04-06-2018 XR [...] Electronically Signed in Other Vendor System) Normal [facility] XR Spine Lumbosacral 2 or 3 Viewson [...] Electronically Signed in Other Vendor System) Normal [facility] Neurosurgery Office/Clinic N oteon 03-29-2018 Neurosurgery Office/Clinic Note 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 Upon completion [...] JOE Dragan Cinthia 03/29/18 12:41 EDT Normal [facility] Pain Management Office/Clini c Noteon 03-16-2018 Pain [...] Injections: 11-09-17 Date Surgery: n/a Frequency PT: [id number] Effective PT: not much help Effective Injections: [...] by Myrna Reyes CNP 03/16/18 13:37 EDT [facility] Pain Management Office/Clini c Noteon 02-19-2018 [...] Injections: 11-09-17 Date Surgery: n/a Frequency PT: [id number] Effective PT: not much help Effective Injections: [...] DIAZ Myrna Gardnere 02/19/18 12:56 EDT Normal [facility] History and Physicalon 01-13 History and Physical [...] Johnathan Guzman MD 01/13/18 15:09 EST Normal [facility] Pain Management Procedure No glenn 01-13-2018 Pain [...] cl CAMACHO, Johnathan 01/13/18 15:09 EST Normal [facility] Ambulatory Patient Education on 01-06-2018 Ambulatory Patient [...] the next day. You must have a dinkey driver that will wait in the Pain [...] procedure: Please arrive at: Please check in at:Resolution Rep Desk in the Pain Management [id number], 3rd floor [facility] OHReception Desk inside the Emergency Room at [address]*Due to the sedation given for the procedure, you will not be permitted to drive until the following day. For this reason, you will need to bring a dinkey driver to stay with you and drive [...] Hibiclens (a medicated soap) prior to your surgery.*Mansfield teeth, rinse with water, but do not swallow.*Please wear comfortable clothing, without metal zippers or snaps. Do not wear contact lenses. Do wear your hearing aid. Please leave all jewelry and valuables at home; you may wear your wedding ring.*Please note that due to limited space, your family member/dinkey driver will need to wait in the waiting area while you are in the procedure area. Absolutely no children should attend an appointment for an injection.*All prescription refills must be requested in advance. No prescription refills requested on the day of a procedure will be available until at least 3 business days later.*If your procedure is done in [place], you will be receiving a statement from [employer] [facility] for the professional (physician's) billing fees and for the technical (hospital's) fees and a separate statement for the anesthesia provider. If your procedure is done in [place], you will be receiving a statement from [employer] [facility] for professional (physician's) billing fees, technical [...] questions or concerns, please contact the appropriate office:[facility] ([place] office) [phone] ([place] office) [phone] follow up appointment is scheduled for:AT:[facility] [address] [facility], 3rd floor [facility], [facility] [address], [address], [facility] [address] [facility], 2nd floor clinic, [address]?WHAT TO EXPECT AFTER THE PROCEDURE:Please note [...] increase pain. (for example, bending, twisting, walking, nail making machine setter).Try to avoid pain medication or sleeping during [...] call the office immediately if noted.Contact stimulator player services representative with questions regarding stimulator use.(see rep [...] and call office immediately if noted.Contact stimulator player services representative with questions regarding stimulator use.(see rep [...] drainage and call immediately if noted.Contact stimulator player services representative with questions regarding stimulator use.(see rep card) Normal [facility] Pain Management Office/Clini c Noteon 01-06-2018 Pain [...] PT: 01/16 Date Injections: 11-09-17 Frequency PT: [id number] Effective PT: not much help Effective Injections: [...] Myrna Reyes CNP 01/06/18 15:15 EST Normal [facility] Pain Management Office/Clini c Noteon 11-09-2017 Pain [...] Johnathan smallwood MD 11/09/17 09:27 EST Normal [facility] Procedure Noteon 11-09-2017 Procedure Note PROCEDURE: Bilateral [...] Johnathan Guzman MD 11/09/17 09:36 EST Normal [facility] Ambulatory Patient Education on 10-14-2017 Ambulatory Patient [...] procedure: Please arrive at: Please check in at:[facility] Rep Desk in the Pain Management [id number] [place] [address], 3rd floor [facility] Room at [address]*Due to the sedation given for the procedure, you will not be permitted to drive until the following day. For this reason, you will need to bring a dinkey driver to stay with you and drive [...] Hibiclens (a medicated soap) prior to your surgery.*Mansfield teeth, rinse with water, but do not swallow.*Please wear comfortable clothing, without metal zippers or snaps. Do not wear contact lenses. Do wear your hearing aid. Please leave all jewelry and valuables at home; you may wear your wedding ring.*Please note that due to limited space, your family member/dinkey driver will need to wait in the waiting area while you are in the procedure area. Absolutely no children should attend an appointment for an injection.*All prescription refills must be requested in advance. No prescription refills requested on the day of a procedure will be available until at least 3 business days later.*If your procedure is done in [place], you will be receiving a statement from [facility] for the professional (physician's) billing fees and for the technical (hospital's) fees and a separate statement for the anesthesia provider. If your procedure is done in [place], you will be receiving a statement from [facility] for professional (physician's) billing fees, [...] questions or concerns, please contact the appropriate office:[facility] ([place] office) [phone] ([place] office) [phone] follow up appointment is scheduled for:AT:[facility] Pain Management [address] [facility], 3rd floor [facility], [facility] Pain Management [address], [address], [facility] [address] [facility], 2nd floor clinic, [facility] [address] [facility]?WHAT TO EXPECT AFTER THE PROCEDURE:Please note the [...] increase pain. (for example, bending, twisting, walking, nail making machine setter).Try to avoid pain medication or sleeping during [...] call the office immediately if noted.Contact stimulator player services representative with questions regarding stimulator use.(see rep [...] and call office immediately if noted.Contact stimulator player services representative with questions regarding stimulator use.(see rep [...] drainage and call immediately if noted.Contact stimulator player services representative with questions regarding stimulator use.(see rep card)Nerve Root InjectionThe nerve root injection is a procedure where a local anesthetic and steroid solution are administered near the nerve as it exits the spinal canal. This is done under fluoroscopy (watching under live x-ray) to deliver the drug to the precise location.Am I a candidate for a nerve root injection?At [facility], the provider examining you [...] procedure. You are required to have a dinkey driver remain in the facility before and [...] home the morning of the procedure. Normal [facility] Pain Management Office/Clini c Noteon 10-14-2017 Pain [...] Chiropractor: 11/2016 Date PT: 01/16 Frequency PT: [id number] Effective PT: not much help Comments TENS: [...] Myrna Reyes CNP 10/14/17 11:44 EST Normal [facility] History and Physicalon 09-09 History and Physical [...] Johnathan Guzman MD 09/09/17 11:17 EDT Normal [facility] Comment on above: Order Comment: This dictation [...] Johnathan smallwood MD 09/09/17 11:20 EDT Normal [facility] Procedure Noteon 09-09-2017 Procedure Note PROCEDURE: Radiofreq [...] Johnathan smallwood MD 09/09/17 11:21 EDT Normal [facility] History and Physicalon 08-26 History and Physical [...] cl CAMACHO, Johnathan 08/26/17 14:38 EDT Normal [facility] History and Physical History of Present Illness [...] smallwood MD, Johnathan 08/26/17 15:42 EDT Normal [facility] Procedure Noteon 08-26-2017 Procedure Note PROCEDURE: Radiofreq [...] cl CAMACHO, Johnathan 08/26/17 15:42 EDT Normal [facility] Ambulatory Patient Education on 07-29-2017 Ambulatory Patient [...] procedure: Please arrive at: Please check in at:[facility] Rep Desk in the Pain Management [id number] [place] [address], 3rd floor [facility] Room at [address]*Due to the sedation given for the procedure, you will not be permitted to drive until the following day. For this reason, you will need to bring a dinkey driver to stay with you and drive [...] Hibiclens (a medicated soap) prior to your surgery.*[place] teeth, rinse with water, but do not swallow.*Please wear comfortable clothing, without metal zippers or snaps. Do not wear contact lenses. Do wear your hearing aid. Please leave all jewelry and valuables at home; you may wear your wedding ring.*Please note that due to limited space, your family member/dinkey driver will need to wait in the waiting area while you are in the procedure area. Absolutely no children should attend an appointment for an injection.*All prescription refills must be requested in advance. No prescription refills requested on the day of a procedure will be available until at least 3 business days later.*If your procedure is done in [place], you will be receiving a statement from [facility] for the professional (physician's) billing fees and for the technical (hospital's) fees and a separate statement for the anesthesia provider. If your procedure is done in [place], you will be receiving a statement from [facility] for professional (physician's) billing fees, [...] or concerns, please contact the appropriate office:[facility] ([place] office) [phone] ([place] office) [phone] follow up appointment is scheduled for:AT:[facility] [address], 3rd floor [facility], [facility] [address], [address], [facility] [address], 2nd floor clinic, [place] [address] [facility]?WHAT TO EXPECT AFTER THE PROCEDURE:Please note the [...] increase pain. (for example, bending, twisting, walking, nail making machine setter).Try to avoid pain medication or sleeping during [...] call the office immediately if noted.Contact stimulator player services representative with questions regarding stimulator use.(see rep [...] and call office immediately if noted.Contact stimulator player services representative with questions regarding stimulator use.(see rep [...] drainage and call immediately if noted.Contact stimulator player services representative with questions regarding stimulator use.(see rep [...] sedation. You are required to have a dinkey driver remain in the facility before and during the procedure, then drive you home following the procedure.What should I expect after the procedure?You are required to have a dinkey driver remain in the waiting room of [facility] during the procedure and drive you [...] physician regarding your other diabetic medications. Normal [facility] Office/Clini c Noteon 07-29-2017 Pain [...] Chiropractor: 11/2016 Date PT: 01/16 Frequency PT: [id number] Effective PT: not much help Comments TENS: [...] CNP Myrna Baez 07/29/17 13:55 EDT Normal [facility] History and Physicalon 06-29 History and Physical [...] Johnathan smallwood MD 06/29/17 13:18 EDT Normal [facility] Procedure Noteon 06-29-2017 Procedure Note PROCEDURE: Bilateral [...] The patient was [facility] back [facility] and taken to recovery in stable condition to be discharged per criteria.Electronically signed by B Johnathan smallwood MD 06/29/17 14:34 EDT [facility] History and Physicalon 06-15 History and [...] Johnathan Guzman MD 06/15/17 16:22 EDT Normal [facility] Procedure Noteon 06-15-2017 Procedure Note PROCEDURE: Bilateral [...] The patient was turned back onto the [facility] and taken to recovery in stable condition to be discharged per criteria.Electronically signed by B Johnathan smallwood MD 06/15/17 16:23 EDT Normal [facility] Ambulatory Patient Education on 05-27-2017 Ambulatory Patient [...] have a lot of pain?Your physician at [facility] will do everything possible [...] procedure. You are required to have a dinkey driver remain in the facility before and [...] procedure: Please arrive at: Please check in at:[facility]k in the Pain Management [id number], 3rd floor [facility] [place] inside the Emergency Room at [place] [address], [place]*Due to the sedation given for the procedure, you will not be permitted to drive until the following day. For this reason, you will need to bring a dinkey driver to stay with you and drive [...] Hibiclens (a medicated soap) prior to your surgery.*[place] teeth, rinse with water, but do not swallow.*Please wear comfortable clothing, without metal zippers or snaps. Do not wear contact lenses. Do wear your hearing aid. Please leave all jewelry and valuables at home; you may wear your wedding ring.*Please note that due to limited space, your family member/dinkey driver will need to wait in the waiting area while you are in the procedure area. Absolutely no children should attend an appointment for an injection.*All prescription refills must be requested in advance. No prescription refills requested on the day of a procedure will be available until at least 3 business days later.*If your procedure is done in [place], you will be receiving a statement from [facility] for the professional (physician's) billing fees and for the technical (hospital's) fees and a separate statement for the anesthesia provider. If your procedure is done in [place], you will be receiving a statement from [facility] for professional (physician's) billing fees, [...] questions or concerns, please contact the appropriate office:[facility] ([place] office) [phone] ([place] office) [phone] follow up appointment is scheduled for:AT:[facility] [address], 3rd floor [facility], [facility] [address], [address], [address], 2nd floor clinic, [address]?WHAT TO EXPECT AFTER THE PROCEDURE:Please note [...] increase pain. (for example, bending, twisting, walking, nail making machine setter).Try to avoid pain medication or sleeping during [...] call the office immediately if noted.Contact stimulator player services representative with questions regarding stimulator use.(see rep [...] and call office immediately if noted.Contact stimulator player services representative with questions regarding stimulator use.(see rep [...] drainage and call immediately if noted.Contact stimulator player services representative with questions regarding stimulator use.(see rep card) Normal [facility] Office/Clini c Noteon 05-27-2017 Pain [...] Unchanged PM Last Procedure 1: BILATERAL TF BRINA L4 PM Procedure Date 1: 04/22/17 PM [...] Chiropractor: 11/2016 Date PT: 01/16 Frequency PT: [id number] Effective PT: not much help Comments TENS: [...] created on his/her behalf by a trained [facility] medical. The creation of this document is based on the provider?s statements to the [facility]p medical.Problem List/Past Medical History Ongoing Acid reflux [...] Myrna infante CNP 05/27/2017 10:22 EDT Normal [facility] Encounters Encounter Date Encounter Type Care Provider Facility Start: 10-19-2023 End: 10-19-2023 ambulatory [facility] Start: 04-08-2023 End: 04-08-2023 ambulatory [facility] Start: 03-30-2023 End: 04-29-2023 ambulatory SHAIKH Milan [...] Start: 10-29-2022 End: 10-29-2022 ambulatory DRAGAN SANTOS [facility] Start: 09-30-2022 End: 10-29-2022 ambulatory NOGUEIRA H FAWWAD Facility:[facility] Start: 09-01-2022 End: 09-29-2022 ambulatory NOGUEIRA H FAWWAD Facility:[facility] Start: 07-31-2022 End: 08-30-2022 ambulatory NOGUEIRA H FAWWAD Facility:[facility] Start: 06-30-2022 End: 07-30-2022 ambulatory NOGUEIRA H FAWWAD Facility:[facility] Start: 05-30-2022 End: 06-27-2022 ambulatory NOGUEIRA H FAWWAD Facility:[facility] Start: 06-24-2019 End: 06-25-2019 Patient encounter procedure RIO LAL Facility:[facility] Start: 06-21-2019 End: 06-27-2019 Patient encounter procedure GERBER PETER Facility:[facility] Start: 04-13-2018 End: 04-14-2018 Ambulatory Rio Lal Facility[facility] Start: 04-06-2018 End: 04-06-2018 Ambulatory RIO LAL Facility:[facility] Start: 03-29-2018 End: 03-30-2018 Ambulatory DRAGAN MORLEY Facility:[facility] Start: 03-16-2018 End: 03-17-2018 Ambulatory MYRNA DENIS AUXIER Facility:[facility] [place] Start: 02-19-2018 End: 02-20-2018 Ambulatory RIO LAL Facility:[facility] [place] Start: 01-13-2018 End: 01-13-2018 Ambulatory JOHNATHAN LAYAOS Facility:[facility] Start: 01-06-2018 End: 01-07-2018 Ambulatory MYRNA CAST Facility:[facility] [place] Start: 11-09-2017 End: 11-09-2017 Ambulatory JOHNATHAN LAYAOS Facility:[facility] Start: 10-14-2017 End: 10-15-2017 Ambulatory MYRNA DENIS CAST Facility:[facility] [place] Start: 09-09-2017 End: 09-09-2017 Ambulatory JOHNATHAN LAYAOS Facility:[facility] Start: 08-26-2017 End: 08-26-2017 Ambulatory JOHNATHAN LAYAOS Facility:[facility] Start: 07-29-2017 End: 07-30-2017 Ambulatory MYRNA CAST Facility:[facility] [place] Start: 06-29-2017 End: 06-29-2017 Ambulatory JOHNATHAN BAKOS Facility:[facility] Start: 06-15-2017 End: 06-15-2017 Ambulatory JOHNATHAN LAYAOS Facility:[facility] Start: 05-27-2017 End: 05-28-2017 Ambulatory MYRNA CAST Facility:[facility] [place] Payers Date Payer Category Payer Medicare 1958 Medicare [id number] 1958 Unknown [id number] 1958 Unknown [id number] 1936 Unknown [id number] 2.16.8 [id number] 1936 Unknown [id number] 2.16.8 [id number] 1936 Unknown [id number] 2.16.84 [id number] 1936 Unknown [id number] 2.16.84 [id number] 1936 Unknown [id number] 2.16.84 [id number] 1936 Unknown [id number] 2.16.84 0.1.256419.3.579.2.593 1936 Unknown [id number] 2.16.84 0.1.766312.3.579.2.593 1936 Unknown [id number] 2.16.84 0.1.054149.3.579.2.593 1936 Unknown [id number] 2.16.84 0.1.520027.3.579.2.593 1936 Unknown [id number] 2.16.84 0.1.760097.3.579.2.593 1936 Unknown [id number] 2.16.84 0.1.491468.3.579.2.593 1936 Unknown [id number] 2.16.84 0.1.923149.3.579.2.593 1936 Unknown [id number] 2.16.84 0.1.296161.3.579.2.593 1936 Unknown [id number] 2.16.84 0.1.271052.3.579.2.593 1936 Unknown [id number] 2.16.84 [id number] Medicare [id number] Clinical Notes 10-29-2022 to 10-19-2023 Note Date [...] Positive for arthritis. Gastrointestinal: Positive for diarrhea. 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 Follow up with [facility] for INR atorvastatin (Lipitor) 40 mg [...] no difficulty hear (more content not included)... [facility] 04-08-2023 Note Patient here for 6 [...] All other systems reviewed and are negative. [facility] 04-08-2023 Note [place] Electrophysiology Consult Note Reason for visit: 6-month follow-up HPI: Alvin Boyd is a 87 y.o. 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 [facility] 10-29-2022 Note [id number]= 5 Remains rate controlled with coreg and anticoagulation with jantoven Denied any bleeding tendencies [facility] 10-29-2022 Note Continue GDMT- lipit or, coreg, entresto, lasix [facility] II-III Currently euvolemic without exacerbation Overall pt is doing quite well No concerning symptoms today Monitor daily weights, I&O, fluid restriction 1.5-2L/day, renal function remains stable [facility] 10-29-2022 Note Continue GDMT- mario nue coreg, lipitor- no ASA with anticoagulation- jantoven [facility] 10-29-2022 Note Annual labs with PCP - Dr Gil Continue lipitor [facility] 10-29-2022 Note No concerning sympto ms today Will monitor with routine echo- or repeat echo with concerning symptoms [facility] 10-29-2022 Note [facility] CARDIOLOGY PROGR ESS [...] Gil Continue lipitor Coronary artery disease involving [place] coronary artery of cantwell heart without angina pectoris Continue GDMT- continue coreg, lipitor- no ASA with anticoagulation- jantoven Acute on chronic systolic heart failure, NYHA class 2 (CMS/HCC) Continue GDMT- lipitor, coreg, entresto, lasix [facility] II-III Currently euvolemic without exacerbation Overall pt is doing quite well No concerning symptoms today Monitor daily weights, I&O, fluid restriction 1.5-2L/day, renal function remains stable Chronic atrial fibrillation (CMS/HCC) [id number]= 5 Remains rate controlled with coreg and anticoagulation with jantoven Denied any bleeding tendencies RTC 6 months or earlier if needed [facility] 10-29-2022 Note Patient here for 6 [...] All other systems reviewed and are negative. [facility] 10-29-2022 Note Device check 2 Device functioning normal, 99% BI-V pacing 04/15/22- battery life 7 yrs, normal device function, no ventricular arrythmias, 100% Bi-V paced [facility] Summary Purpose Family History No Family [...] section and content) DATE CREATED AUTHOR 05/19/2018 [facility] DATE CREATED AUTHOR AUTHOR'S ORGANIZ ATION 06/19/2020 [facility] DATE CREATED AUTHOR AUTHOR'S ORGANIZ ATION 05/08/2023 [facility] DATE CREATED AUTHOR AUTHOR'S ORGANIZ ATION 10/20/2023 [facility] FOR RECORDS PERTAINING TO PATIENTS WHO [...] BE BASED ON THE PRIMARY CLINICAL RECORDS. [employer] provides no warranty or guarantee of the accuracy or completeness of information in this document.
[2023-11-27 07:45] LABS: Adenovirus NOT DETECTED (NOT DETECTE); Bordetella parapertussis NOT DETECTED (NOT DETECTE); Coronavirus 229E NOT DETECTED (NOT DETECTE); Coronavirus HKU1 NOT DETECTED (NOT DETECTE); Coronavirus NL63 NOT DETECTED (NOT DETECTE); Coronavirus OC43 NOT DETECTED (NOT DETECTE); Human Metapneumovirus NOT DETECTED (NOT DETECTE); Human Rhinovirus/Enterovirus NOT DETECTED (NOT DETECTE); Influenza A NOT DETECTED (NOT DETECTE); Influenza B NOT DETECTED (NOT DETECTE); Mycoplasma pneumoniae NOT DETECTED (NOT DETECTE); Parainfluenza Virus 1 NOT DETECTED (NOT DETECTE); Parainfluenza Virus 2 NOT DETECTED (NOT DETECTE); Parainfluenza Virus 3 NOT DETECTED (NOT DETECTE); Parainfluenza Virus 4 NOT DETECTED (NOT DETECTE); Respiratory Syncytial Virus NOT DETECTED (NOT DETECTE); SARS-CoV-2 NOT DETECTED (NOT DETECTE)
--- OUTSIDE RECORDS SUMMARY | 2023-11-27 08:11 | XMS_ITS | CCD ---
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 Role Phone AUXIER, MYRNA DENIS Unavailable [...] Unavailabl e MORLEY, DRAGAN CINTHIA Unavailable Unavailable Cassadaga, Myrna [id number] Unavailable Unavailable ValoneRio Fabienne Unavailable Unavailabl e [...] Date of Onset Reaction(s) Facility (1 source) 05388,00; Translations: [Unknown] Propensity to adverse reactions (disorder) 9 [facility] Repository Problems Active Problems Problem Classification [...] myocardial infarction; 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] Onset: 10-29-2022 [...] source) [facility] (current) use of anticoagulants; Translations: [SNF CURRNT USE ANTICOAGULANTS] Onset: 04-29-2023 Episodic Other [...] 2022 Episodic Other aftercare (1 source) Other forms examiner (current) drug therapy; Translations: [OTH SNF CURRENT DRUG THERAPY] Onset: 2022 Episodic Other aftercare (1 source) [facility] (current) use of aspirin; Translations: [SNF CURRENT USE OF ASPIRIN] Onset: 2022 Episodic [...] Range Facility Office Visiton 10-19-2023 Follow-up visit [id number] Calin Boyd [facility] 1935 M [facility] Provider Department Center 10/19/2023 SHASTA CROFT [place] [facility] No family history on file Level of Service:84919 [place] OFFICE/OUTPATIENT ESTABLISHED MOD MDM 30-39 MIN Normal [facility] Office Visiton 04-08-2023 Follow-up visit [id number] Calin Boyd [facility] 1935 M Date Provider Department Center 04/08/2023 SHASTA CROFT [facility] No family history on file Level of Service:50687 VA OFFICE/OUTPATIENT ESTABLISHED MOD MDM 30-39 MIN Reason for Visit and Comments: Coronary Artery Disease [187] Atrial Fibrillation [80] Congestive Heart Failure [127] Hypertension [826919] 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 Dana Angulo Basophils/100 WBC (Bld) 0.8 % Normal 0.2-2.0 [facility] Comment on above: Performed By: #### C BC #### [facility] [address] [place] [address] Dr. Dana Angulo EO # 0.1 103/ul Normal 0.0-0.7 [facility] Comment on above: Performed By: #### C BC #### [facility] [address] [place] [address] Dr. Dana Angulo Eosinophils/100 WBC (Bld) 0.9 % Normal 0.9-7.0 [facility] Comment on above: Performed By: #### C BC #### [facility] [address] [place] [address] Dr. Dana Angulo Erythrocyte distribution width (RBC) [Ratio] 13.2 % Normal 11.0-15.0 [facility] Comment on above: Performed By: #### C BC #### [facility] [address] [place] [address] Dr. Dana Angulo Hematocrit (Bld) [Volume fraction] 37.1 % Critically low 42.0-54.0 [facility] Comment on above: Performed By: #### C BC #### [facility] [address] [place] [address] Dr. Dana Angulo Hemoglobin (Bld) [Mass/Vol] 12.1 g/dL Critically low 14.0-18.0 [facility] Comment on above: Performed By: #### C BC #### [facility] [address] [place] [address] Dr. Dana Angulo IG # 0.03 10e3/ul Normal 0.00-0.03 [facility] Comment on above: Performed By: #### C BC #### [facility] [address] [place] [address] Dr. Dana Angulo IG % 0.4 % Normal 0.0-0.5 [facility] Comment on above: Performed By: #### C BC #### [facility] [address] [place] [address] Dr. Dana Angulo LYMPH # 1.4 103/ul Normal 1.2-3.8 [facility] Comment on above: Performed By: #### C BC #### [facility] [address] [place] [address] Dr. Dana Angulo Lymphocytes/100 WBC (Bld) 19.0 % Critically low 20.5-60.0 [facility] Comment on above: Performed By: #### C BC #### [facility] [address] [place] [address] Dr. Dana Angulo MANUAL DIFF REQ NO Normal [facility] Comment on above: Performed By: #### C BC #### [facility] [address] [place] [address] Dr. Dana Angulo MCH (RBC) [Entitic mass] 30.6 pg Normal 25.9-34.0 [facility] Comment on above: Performed By: #### C BC #### [facility] [address] [place] [address] Dr. Dana Angulo MCHC (RBC) [Mass/Vol] 32.6 g/dL Normal 29.9-35.2 [facility] Comment on above: Performed By: #### C BC #### [facility] [address] [place] [address] Dr. Dana Angulo MCV (RBC) [Entitic vol] 93.7 fL Normal 80.0-94.0 [facility] Comment on above: Performed By: #### C BC #### [facility] [address] [place] [address] Dr. Dana Angulo MONO # 0.5 103/ul Normal 0.3-0.8 [facility] Comment on above: Performed By: #### C BC #### [facility] [address] [place] [address] Dr. Dana Angulo Monocytes/100 WBC (Bld) 7.2 % Normal 1.7-12.0 [facility] Comment on above: Performed By: #### C BC #### [facility] [address] [place] [address] Dr. Dana Angulo NEUT # 5.4 103/ul Normal 1.4-6.5 [facility] Comment on above: Performed By: #### C BC #### [facility] [address] [place] [address] Dr. Dana Angulo Neutrophils/100 WBC (Bld) 71.7 % Normal 43.0-75.0 [facility] Comment on above: Performed By: #### C BC #### [facility] [address] [place] [address] Dr. Dana Angulo Platelet mean volume (Bld) [Entitic vol] 9.6 fL Normal 9.5-13.5 [facility] Comment on above: Performed By: #### C BC #### [facility] [address] [place] [address] Dr. Dana Angulo PLT 165 103/ul Normal 150-450 [facility] Comment on above: Performed By: #### C BC #### [facility] [address] [place] [address] Dr. Dana Angulo RBC 3.96 106/ul Critically low 4.70-6.10 [facility] Comment on above: Performed By: #### C BC #### [facility] [address] [place] [address] Dr. Dana Angulo WBC 7.5 103/ul Normal 4.0-11.0 [facility] Comment on above: Performed By: #### C BC #### [facility] [address] [place] [address] Dr. Dana Angulo ER URINE PROFILEon 3 Bilirubin Ql (U) Negative Normal NEGATIVE [facility] Comment on above: Performed By: #### ANGELINA FRIENDRO #### [facility] [address] [place] [address] Dr. Dana Angulo Clarity (U) CLEAR Normal CLEAR [facility] Comment on above: Performed By: #### ANGELINA FRIENDRO #### [facility] [address] [place] [address] Dr. Dana Angulo Color (U) LT. YELLOW Normal YELLOW [facility] Comment on above: Performed By: #### ANGELINA FRIENDRO #### [facility] [address] [place] [address] Dr. Dana GÓMEZ A micrscopic examina tion will be performed if indicated. Normal [facility] Comment on above: Performed By: #### Marino KENYON UMICRO #### [facility] [address] [place] [address] Dr. Dana Angulo Glucose Ql (U) Negative Normal NEGATIVE [facility] Comment on above: Performed By: #### Marino KENYON UMICRO #### [facility] [address] [place] [address] Dr. Dana Angulo Hemoglobin Ql (U) Negative Normal NEGATIVE [facility] Comment on above: Performed By: #### Marino KENYON UMICRO #### [facility] [address] [place] [address] Dr. Dana Angulo Ketones Ql (U) Negative Normal NEGATIVE [facility] Comment on above: Performed By: #### Marino KENYON UMICRO #### [facility] [address] [place] [address] Dr. Dana Angulo LEUKOCYTES TRACE Abnormal NEGATIVE [facility] Comment on above: Performed By: #### Marino KENYON UMICRO #### [facility] [address] [place] [address] Dr. Dana Angulo Nitrite Ql (U) Negative Normal NEGATIVE [facility] Comment on above: Performed By: #### Marino KENYON UMICRO #### [facility] [address] [place] [address] Dr. Dana Angulo pH (U) 6.0 [pH] Normal 5-9 [facility] Comment on above: Performed By: #### Marino KENYON UMICRO #### [facility] [address] [place] [address] Dr. Dana Angulo SPEC GRAVITY 1.015 Normal 1.005-<=1.02 5 [facility] Comment on above: Performed By: #### Marino KENYON UMICRO #### [facility] [address] [place] [address] Dr. Dana Angulo UA PROTEIN Negative Normal NEGATIVE/ TRACE [facility] Comment on above: Performed By: #### ANGELINA FRIENDRO #### [facility] [address] [place] [address] Dr. Dana Angulo UR MICRO IND INDICATED Normal [facility] Comment on above: Performed By: #### E ANGELINA KENYONRO #### [facility] [address] [place] [address] Dr. Dana Angulo Urobilinogen Qn (U) 0.2 {Delia'U}/dL Normal 0.2 - 1.0 [facility] Comment on above: Performed By: #### ANGELINA FRIENDRO #### [facility] [address] [place] [address] Dr. Dana Angulo LACTATE/LACTIC ACIDon 2022 Lactate [Moles/Vol] 1.1 mmol/L Normal 0.4-1.9 [facility] Comment on above: Performed By: #### L ACT #### [facility] [address] [place] [address] Dr. Dana Angulo LIPASEon 12-18-2022 Lipase [Catalytic activity/Vol] 68.0 U/L Critically low 73.0-393.0 [facility] Comment on above: Performed By: #### C BC #### [facility] [address] [place] [address] Dr. Dana Angulo OCC BLD IMMUNO SCREENon 11-30 OCCULT BLOOD Negative Normal NEGATIVE [facility] Comment on above: Performed By: #### H STROPN #### [facility] [address] [place] [address] Dr. Dana Angulo PROF 14(COMP METB)on 023 Albumin [Mass/Vol] 3.8 g/dL Normal 3.4-5.0 [facility] Comment on above: Performed By: #### C BC #### [facility] [address] [place] [address] Dr. Dana Angulo Albumin/Globulin [Mass ratio] 1.3 {ratio} Normal [facility] Comment on above: Performed By: #### C BC #### [facility] [address] [place] [address] Dr. Dana Angulo ALP [Catalytic activity/Vol] 70 U/L Normal 46-116 [facility] Comment on above: Performed By: #### C BC #### [facility] [address] [place] [address] Dr. Dana Angulo ALT [Catalytic activity/Vol] 22 U/L Normal 16-63 [facility] Comment on above: Performed By: #### C BC #### [facility] [address] [place] [address] Dr. Dana Angulo Anion gap [Moles/Vol] 13.5 mmol/L Normal [facility] Comment on above: Performed By: #### C BC #### [facility] [address] [place] [address] Dr. Dana Angulo AST [Catalytic activity/Vol] 25 U/L Normal 15-37 [facility] Comment on above: Performed By: #### C BC #### [facility] [address] [place] [address] Dr. Dana Angulo Bilirubin [Mass/Vol] 1.0 mg/dL Normal 0.2-1.0 [facility] Comment on above: Performed By: #### C BC #### [facility] [address] [place] [address] Dr. Dana Angulo Calcium [Mass/Vol] 9.7 mg/dL Normal 8.5-10.1 [facility] Comment on above: Performed By: #### C BC #### [facility] [address] [place] [address] Dr. Dana Angulo Chloride [Moles/Vol] 103 mmol/L Normal 98-107 [facility] Comment on above: Performed By: #### C BC #### [facility] [address] [place] [address] Dr. Dana Angulo CO2 [Moles/Vol] 25.1 mmol/L Normal 21.0-32.0 [facility] Comment on above: Performed By: #### C BC #### [facility] [address] [place] [address] Dr. Dana Angulo Creatinine [Mass/Vol] 1.07 mg/dL Normal 0.70-1.30 [facility] Comment on above: Performed By: #### C BC #### [facility] [address] [address] [address] Dana Angulo EGFR-AF ETHIOPIAN >60 Normal >=60 [facility] Comment on above: Performed By: #### C BC #### [facility] [address] [address] [address] Dana Angulo EGFR-NON AF ETHIOPIAN >60 Normal >=60 [facility] Comment on above: Performed By: #### C BC #### [facility] [address] [address] [address] Dana Angulo Globulin (S) [Mass/Vol] 3.0 g/dL Normal [facility] Comment on above: Performed By: #### C BC #### [facility] [address] [place] [address] Dr. Dana Angulo Glucose [Mass/Vol] 115 mg/dL Critically high 74-106 [facility] Comment on above: Performed By: #### C BC #### [facility] [address] [place] [address] Dr. Dana Angulo Potassium [Moles/Vol] 3.6 mmol/L Normal 3.5-5.1 [facility] Comment on above: Performed By: #### C BC #### [facility] [address] [place] [address] Dr. Dana Angulo Protein [Mass/Vol] 6.8 g/dL Normal 6.4-8.2 [facility] Comment on above: Performed By: #### C BC #### [facility] [address] [place] [address] Dr. Dana Angulo Sodium [Moles/Vol] 138 mmol/L Normal 136-145 [facility] Comment on above: Performed By: #### C BC #### [facility] [address] [place] [address] Dr. Dana Angulo Urea nitrogen [Mass/Vol] 39.0 mg/dL Critically high 7.0-18.0 [facility] Comment on above: Performed By: #### C BC #### [facility] [address] [place] [address] Dr. Dana Angulo Urea nitrogen/Creatinin e [Mass ratio] 36.4 mg/mg Normal [facility] Comment on above: Performed By: #### C BC #### [facility] [address] [place] [address] Dr. Dana Angulo PROTIMEon 12-18-2022 INR Coag (PPP) [Relative time] 2.15 {INR} Normal [facility] Comment on above: Performed By: #### P T, PTT #### [facility] [address] [place] [address] Dr. Dana Angulo INR GUIDELINES SEE BELOW Normal [facility] Comment on above: Result Comment: BETTINA RED INR: 2.0 - 3.0 CONDITIONS NOT LISTED BELOW 2.5 - 3.5 FOR PROSTHETIC HEART VALVE REPLACEMENT 2.5 - 3.5 RECURRENT THROMBOSIS Performed By: #### P T, PTT #### [facility] [address] [place] [address] Dr. Dana Angulo PT Coag (PPP) [Time] 21.8 s Critically high 9.0-11.6 [facility] Comment on above: Performed By: #### P T, PTT #### [facility] [address] [place] [address] Dr. Dana Angulo PTTon 12-18-2022 aPTT Coag (Bld) [Time] 35.3 s Normal 22.3-36.2 [facility] Comment on above: Performed By: #### P T, PTT #### [facility] [address] [place] [address] Dr. Dana Angulo TROPONIN, HIGH SENSITIVITYon 12-18-2022 HSTROP 37.2 pg/mL Normal 4.0-76.1 [facility] Comment on above: Result Comment: CUT- OFF POINTS HAVE BEEN ESTABLISHED BASED ON THE FOURTH UNIVERSAL DEFINITIONS OF MYOCARDIAL INFARCTION. THE UPPER REFERENCE LIMIT (URL) OF TROPONIN, DEFINED THE 99TH PERCENTILE OF cTnI DISTRIBUTION IN A REFERENCE POPULATION, HAS BEEN CONFIRMED THE DECISION THRESHOLD FOR RI DIAGNOSIS. Performed By: #### H STROPN #### [facility] [address] [place] [address] Dr. Dana Angulo HSTROP 39.8 pg/mL Normal 4.0-76.1 [facility] Comment on above: Result Comment: CUT- OFF POINTS HAVE BEEN ESTABLISHED BASED ON THE FOURTH UNIVERSAL DEFINITIONS OF MYOCARDIAL INFARCTION. THE UPPER REFERENCE LIMIT (URL) OF TROPONIN, DEFINED THE 99TH PERCENTILE OF cTnI DISTRIBUTION IN A REFERENCE POPULATION, HAS BEEN CONFIRMED THE DECISION THRESHOLD FOR RI DIAGNOSIS. Performed By: #### H STROPN #### [facility] [address] [place] [address] Dr. Dana Angulo URINE MICROSCOPIC ONLYon BACTERIA NONE SEEN Normal NONE SEEN [facility] Comment on above: Performed By: #### Marino KENYON UMICRO #### [facility] [address] [place] [address] Dr. Dana Angulo Bacteria identified Cx Nom (U) NOT INDICATED Normal [facility] Comment on above: Performed By: #### Marino KENYON UMICRO #### [facility] [address] [place] [address] Dr. Dana Angulo CAST NONE SEEN Normal NONE SEEN [facility] Comment on above: Performed By: #### Marino KENYON UMICRO #### [facility] [address] [place] [address] Dr. Dana Angulo Crystals LM Nom (Urine sed) NONE SEEN Normal NONE SEEN [facility] Comment on above: Performed By: #### Marino KENYON UMICRO #### [facility] [address] [place] [address] Dr. Dana Angulo Epithelial cells LM Ql (Urine sed) FEW Abnormal NONE SEEN /RARE [facility] Comment on above: Performed By: #### E KOSTAS UMICRO #### [facility] [address] [place] [address] Dr. Dana Angulo MUCOUS NONE SEEN Normal NONE SEEN [facility] Comment on above: Performed By: #### E KOSTAS UMICRO #### [facility] [address] [place] [address] Dr. Dana Angulo RBC NONE SEEN Abnormal 0-2 [facility] Comment on above: Performed By: #### E HUMBERTO KENYON #### [facility] [address] [address] [address] Dana Angulo WBC 2-5 Abnormal NONE SEEN [facility] Comment on above: Performed By: #### E HUMBERTO KENYON #### [facility] [address] [place], [place] [address] Dr. Dana Angulo US SINGLE QUAD RT [...] DOMINIQUE JAUREGUI Date: 2022-12-18 13:05 Normal [facility] BNPon 11-11-2022 Natriuretic peptide B (Bld) [Mass/Vol] 2364.0 pg/mL Critically high <=1,800.0 [facility] Comment on above: Performed By: #### H ASHISH #### [facility] [address] [address] [address] Dana Angulo BUNon 11-11-2022 Urea nitrogen [Mass/Vol] 18.0 mg/dL Normal 7.0-18.0 [facility] Comment on above: Performed By: #### H ASHISH #### [facility] [address] [address] [address] Dana Angulo CBC AUTO DIFFon 11-11-2022 BASO # 0.0 103/ul Normal 0.0-0.1 [facility] Comment on above: Performed By: #### C BC #### [facility] [address] [address] [address] Dana Angulo Basophils/100 WBC (Bld) 0.6 % Normal 0.2-2.0 [facility] Comment on above: Performed By: #### C BC #### [facility] [address] [place] [address] Dr. Dana Angulo EO # 0.1 103/ul Normal 0.0-0.7 [facility] Comment on above: Performed By: #### C BC #### [facility] [address] [place] [address] Dr. Dana Angulo Eosinophils/100 WBC (Bld) 1.3 % Normal 0.9-7.0 [facility] Comment on above: Performed By: #### C BC #### [facility] [address] [place] [address] Dr. Dana Angulo Erythrocyte distribution width (RBC) [Ratio] 13.9 % Normal 11.0-15.0 [facility] Comment on above: Performed By: #### C BC #### [facility] [address] [place] [address] Dr. Dana Angulo Hematocrit (Bld) [Volume fraction] 36.2 % Critically low 42.0-54.0 [facility] Comment on above: Performed By: #### C BC #### [facility] [address] [address] [address] Dana Angulo Hemoglobin (Bld) [Mass/Vol] 11.4 g/dL Critically low 14.0-18.0 [facility] Comment on above: Performed By: #### C BC #### [facility] [address] [place] [address] Dr. Dana Angulo IG # 0.02 10e3/ul Normal 0.00-0.03 [facility] Comment on above: Performed By: #### C BC #### [facility] [address] [place] [address] Dr. Dana Angulo IG % 0.3 % Normal 0.0-0.5 [facility] Comment on above: Performed By: #### C BC #### [facility] [address] [place] [address] Dr. Dana Angulo LYMPH # 1.4 103/ul Normal 1.2-3.8 [facility] Comment on above: Performed By: #### C BC #### [facility] [address] [place] [address] Dr. Dana Angulo Lymphocytes/100 WBC (Bld) 19.8 % Critically low 20.5-60.0 [facility] Comment on above: Performed By: #### C BC #### [facility] [address] [place] [address] Dr. Dana Angulo MANUAL DIFF REQ NO Normal [facility] Comment on above: Performed By: #### C BC #### [facility] [address] [place] [address] Dr. Dana Angulo MCH (RBC) [Entitic mass] 30.9 pg Normal 25.9-34.0 [facility] Comment on above: Performed By: #### C BC #### [facility] [address] [place] [address] Dr. Dana Angulo MCHC (RBC) [Mass/Vol] 31.5 g/dL Normal 29.9-35.2 [facility] Comment on above: Performed By: #### C BC #### [facility] [address] [place] [address] Dr. Dana Angulo MCV (RBC) [Entitic vol] 98.1 fL Critically high 80.0-94.0 [facility] Comment on above: Performed By: #### C BC #### [facility] [address] [place] [address] Dr. Dana Angulo MONO # 0.5 103/ul Normal 0.3-0.8 [facility] Comment on above: Performed By: #### C BC #### [facility] [address] [place] [address] Dr. Dana Angulo Monocytes/100 WBC (Bld) 6.9 % Normal 1.7-12.0 [facility] Comment on above: Performed By: #### C BC #### [facility] [address] [address] [address] Dana Angulo NEUT # 5.1 103/ul Normal 1.4-6.5 [facility] Comment on above: Performed By: #### C BC #### [facility] [address] [place] [address] Dr. Dana Angulo Neutrophils/100 WBC (Bld) 71.1 % Normal 43.0-75.0 [facility] Comment on above: Performed By: #### C BC #### [facility] [address] [place] [address] Dr. Dana Angulo Platelet mean volume (Bld) [Entitic vol] 9.4 fL Critically low 9.5-13.5 [facility] Comment on above: Performed By: #### C BC #### [facility] [address] [place] [address] Dr. Dana Angulo PLT 164 103/ul Normal 150-450 [facility] Comment on above: Performed By: #### C BC #### [facility] [address] [place] [address] Dr. Dana Angulo RBC 3.69 106/ul Critically low 4.70-6.10 The [facility] Comment on above: Performed By: #### C BC #### [facility] [address] [place] [address] Dr. Dana Angulo WBC 7.1 103/ul Normal 4.0-11.0 [facility] Comment on above: Performed By: #### C BC #### [facility] [address] [place] [address] Dr. Dana Angulo CREATININEon 11-11-2022 Creatinine [Mass/Vol] 1.10 mg/dL Normal 0.70-1.30 [facility] Comment on above: Performed By: #### H STROPN #### [facility] [address] [address] [address] Dana Angulo EGFR-AF ETHIOPIAN >60 Normal >=60 [facility] Comment on above: Result Comment: Prev iously reported as: >77 On 11/11/2022 10:45 By [email or web address] Previously reported as: (blank) On 11/11/2022 10:44 By BL3 Performed By: #### H STROPN #### [facility] [address] [address] [address] Dana Angulo EGFR-NON AF ETHIOPIAN >60 Normal >=60 [facility] Comment on above: Result Comment: Prev iously reported as: >64 On 11/11/2022 10:45 By BL3 Previously reported as: (blank) On 11/11/2022 10:44 By BL3 Performed By: #### H STROPN #### [facility] [address] [place] [address] Dr. Dana Angulo CULTURE URINEon 11-11-2022 CULTURE URINE Culture Observations : NO GROWTH. Normal [facility] Comment on above: Performed By: #### C BC #### [facility] [address] [place] [address] Dr. Dana Angulo ELECTROLYTESon 11-11-2022 Anion gap [Moles/Vol] 12.7 mmol/L Normal [facility] Comment on above: Performed By: #### H STROPN #### [facility] [address] [place] [address] Dr. Dana Angulo Chloride [Moles/Vol] 103 mmol/L Normal 98-107 [facility] Comment on above: Performed By: #### H STROPN #### [facility] [address] [place] [address] Dr. Dana Angulo CO2 [Moles/Vol] 29.0 mmol/L Normal 21.0-32.0 [facility] Comment on above: Performed By: #### H STROPN #### [facility] [address] [place] [address] Dr. Dana Angulo Potassium [Moles/Vol] 4.7 mmol/L Normal 3.5-5.1 [facility] Comment on above: Performed By: #### H STROPN #### [facility] [address] [address] [address] Dana Angulo Sodium [Moles/Vol] 140 mmol/L Normal 136-145 [facility] Comment on above: Performed By: #### H STROPN #### [facility] [address] [address] [address] Dana Angulo GLYCOHEMOGLOBIN A1Con 2021 ADA RECOMMENDATION SEE BELOW Normal [facility] Comment on above: Result Comment: ADA RECOMMENDED LIMIT 4.0 - 6.0 ADA THERAPEUTIC TARGET < 7.0 ACTION SUGGESTED > 7.0 Performed By: #### H STROPN #### [facility] [address] [address] [address] Dana Angulo Glucose [Mass/Vol] 120 mg/dL Normal [facility] Comment on above: Performed By: #### H STROPN #### [facility] [address] [address] [address] Dana Angulo HbA1c (Bld) [Mass fraction] 5.8 % Normal 4.5-6.2 [facility] Comment on above: Performed By: #### H STROPN #### [facility] [address] [place] [address] Dr. Dana Angulo LIPID PROFILEon 11-11-2022 CHOL-HDL RATIO NORM SEE BELOW Normal [facility] Comment on above: Result Comment: 3.3 - 4.4 LOW RISK 4.4 - 7.1 AVERAGE RISK 7.1 - 11.0 MODERATE RISK >11.0 HIGH RISK Performed By: #### H STROPN #### [facility] [address] [address] [address] Dana Angulo Cholesterol [Mass/Vol] 91 mg/dL Normal <=200 [facility] Comment on above: Performed By: #### H STROPN #### [facility] [address] [address] [address] Dana Angulo Cholesterol in HDL [Mass/Vol] 49 mg/dL Normal 40-60 [facility] Comment on above: Performed By: #### H STROPN #### [facility] [address] [address] [address] Dana Angulo Cholesterol in LDL [Mass/Vol] 29.4 mg/dL Normal [facility] Comment on above: Performed By: #### H STROPN #### [facility] [address] [address] [address] Dana Angulo Cholesterol.total/ Cholesterol in HDL [Mass ratio] 1.9 {ratio} Normal [facility] Comment on above: Performed By: #### H STROPN #### [facility] [address] [address] [address] Dana Angulo HDL NORMAL > or = 60 mg/dl - LO W CARDIOVASCULAR RISK <40 mg/dl - HIGH CARDIOVASCULAR RISK Normal [facility] Comment on above: Performed By: #### H STROPN #### [facility] [address] [address] [address] Dana Angulo LDL CALC NORMAL SEE BELOW Normal [facility] Comment on above: Result Comment: <100 mg/dl OPTIMAL 100 - 129 mg/dl NEAR OR ABOVE OPTIMAL 130 - 159 mg/dl BORDERLINE HIGH 160 - 189 mg/dl HIGH >190 mg/dl VERY HIGH Performed By: #### H STROPN #### [facility] [address] [address] [address] Dana Angulo Triglyceride [Mass/Vol] 63 mg/dL Normal <=150 [facility] Comment on above: Performed By: #### H STROPN #### [facility] [address] [address] [address] Dana Angulo VLDL CALC 12.6 mg/dL Normal [facility] Comment on above: Performed By: #### H STROPN #### [facility] [address] [address] [address] Dana Angulo LIVER PROFILEon 11-11-2022 Albumin [Mass/Vol] 3.7 g/dL Normal 3.4-5.0 [facility] Comment on above: Performed By: #### H STROPN #### [facility] [address] [address] [address] Dana Angulo Albumin/Globulin [Mass ratio] 1.2 {ratio} Normal [facility] Comment on above: Performed By: #### H STROPN #### [facility] [address] [address] [address] Dana Angulo ALP [Catalytic activity/Vol] 68 U/L Normal 46-116 [facility] Comment on above: Performed By: #### H STROPN #### [facility] [address] [address] [address] Dana Angulo ALT [Catalytic activity/Vol] 20 U/L Normal 16-63 [facility] Comment on above: Performed By: #### H STROPN #### [facility] [address] [address] [address] Dana Angulo AST [Catalytic activity/Vol] 21 U/L Normal 15-37 [facility] Comment on above: Performed By: #### H STROPN #### [facility] [address] [address] [address] Dana Angulo BILI, CONJUGATED 0.3 mg/dL Critically high 0.0-0.2 [facility] Comment on above: Performed By: #### H STROPN #### [facility] [address] [address] [address] Dana Angulo Bilirubin [Mass/Vol] 0.9 mg/dL Normal 0.2-1.0 [facility] Comment on above: Performed By: #### H STROPN #### [facility] [address] [address] [address] Dana Angulo Globulin (S) [Mass/Vol] 3.1 g/dL Normal [facility] Comment on above: Performed By: #### H STROPN #### [facility] [address] [address] [address] Dana Angulo Protein [Mass/Vol] 6.8 g/dL Normal 6.4-8.2 [facility] Comment on above: Performed By: #### H STROPN #### [facility] [address] [address] [address] Dana Angulo TSHon 11-11-2022 TSH 3.426 uIU/mL Normal 0.358-3.740 [facility] Comment on above: Performed By: #### H STROPN #### [facility] [address] [address] [address] Dana Angulo UA (CLEAN/CATCH) SYSTEMATIC THEOLOGY PROFESSOR/MICRO I F IND.on 11-11-2022 Bilirubin Ql (U) Negative Normal NEGATIVE [facility] Comment on above: Performed By: #### U ACSIND, UMICRO #### [facility] [address] [address] [address] Dana Angulo Clarity (U) CLEAR Normal CLEAR [facility] Comment on above: Performed By: #### U ACSIND, UMICRO #### [facility] [address] [place] [address] Dr. Dana Angulo Color (U) YELLOW Normal YELLOW [facility] Comment on above: Performed By: #### U ACSIND, UMICRO #### [facility] [address] [place] [address] Dr. Dana Angulo Glucose Ql (U) Negative Normal NEGATIVE [facility] Comment on above: Performed By: #### U ACSIND, UMICRO #### [facility] [address] [address] [address] Dana Angulo Hemoglobin Ql (U) Negative Normal NEGATIVE [facility] Comment on above: Performed By: #### U ACSIND, UMICRO #### [facility] [address] [place] [address] Dr. Dana Angulo Ketones Ql (U) TRACE Abnormal NEGATIVE [facility] Comment on above: Performed By: #### U ACSIND, UMICRO #### [facility] [address] [address] [address] Dana Angulo LEUKOCYTES SMALL Abnormal NEGATIVE [facility] Comment on above: Performed By: #### U ACSIND, UMICRO #### [facility] [address] [place] [address] Dr. Dana Angulo Nitrite Ql (U) Negative Normal NEGATIVE [facility] Comment on above: Performed By: #### U ACSIND, UMICRO #### [facility] [address] [place] [address] Dr. Dana Angulo pH (U) 6.0 [pH] Normal 5-9 [facility] Comment on above: Performed By: #### U ACSREGGIE UMICRO #### [facility] [address] [place] [address] Dr. Dana Angulo SPEC GRAVITY 1.015 Normal 1.005-<=1.02 5 [facility] Comment on above: Performed By: #### U ACSREGGIE UMICRO #### [facility] [address] [place] [address] Dr. Dana Angulo UA PROTEIN TRACE Normal NEGATIVE/ TRACE [facility] Comment on above: Performed By: #### U ACSREGGIE UMICRO #### [facility] [address] [place] [address] Dr. Dana Angulo UR MICRO IND INDICATED Normal [facility] Comment on above: Performed By: #### U ACSREGGIE UMICRO #### [facility] [address] [place] [address] Dr. Dana Angulo Urobilinogen Qn (U) 1.0 {Delia'U}/dL Normal 0.2 - 1.0 [facility] Comment on above: Performed By: #### U ACSREGGIE ICRO #### [facility] [address] [place] [address] Dr. Dana Angulo URINE MICROSCOPIC ONLYon BACTERIA TRACE Abnormal NONE SEEN [facility] Comment on above: Performed By: #### U ACSREGGIE UMICRO #### [facility] [address] [place] [address] Dr. Dana Angulo Bacteria identified Cx Nom (U) INDICATED Normal [facility] Comment on above: Performed By: #### U ACSREGGIE UMICRO #### [facility] [address] [place] [address] Dr. Dana Angulo CAST SEEN Abnormal NONE SEEN [facility] Comment on above: Performed By: #### U ACSREGGIE UMICRO #### [facility] [address] [place] [address] Dr. Dana Angulo Crystals LM Nom (Urine sed) NONE SEEN Normal NONE SEEN [facility] Comment on above: Performed By: #### U ACSIND, UMICRO #### [facility] [address] [address] [address] Dana Angulo Epithelial cells LM Ql (Urine sed) RARE Normal NONE SEEN /RARE [facility] Comment on above: Performed By: #### U ACSIND, UMICRO #### [facility] [address] [address] [address] Dana Angulo MUCOUS NONE SEEN Normal NONE SEEN [facility] Comment on above: Performed By: #### U ACSIND, UMICRO #### [facility] [address] [address] [address] Dana Angulo RBC 2-5 Abnormal 0-2 [facility] Comment on above: Performed By: #### U ACSIND, UMICRO #### [facility] [address] [place] [address] Dr. Dana Angulo WBC 2-5 Abnormal NONE SEEN [facility] Comment on above: Performed By: #### U ACSIND, UMICRO #### [facility] [address] [address] [address] Dana Angulo VITAMIN D 25 OHon 11-11-2022 VIT D 25-OH 30.2 ng/mL Normal [facility] Comment on above: Performed By: #### C BC #### [facility] [address] [place] [address] Dr. Dana Angulo VIT D RANGES SEE BELOW Normal [facility] Comment on above: Result Comment: <20 ng/mL Vit D deficient 20 - <30 ng/mL Vit D insufficient 30 - 100 ng/mL Vit D sufficient >100 ng/mL Potential Toxicity Performed By: #### C BC #### [facility] [address] [place] [address] Dr. Dana Angulo Office Visiton 10-29-2022 Follow-up visit [id number] Calin Boyd 1935 M Date Provider Department Center 10/29/2022 DRAGAN KRUSE [facility] No family history on file Level of Service:04801 [facility] OFFICE/OUTPATIENT ESTABLISHED MOD MDM 30-39 MIN Reason for Visit and Comments: Coronary Artery Disease [187] Atrial Fibrillation [80] Valve Disorder [3372] Congestive Heart Failure [127] Normal [facility] Cardiovascular Lab Reporton 06-25-2019 Cardiovascular Lab Report [facility] Patient Name: Eugene [facility] Alvin Sanchez MR #: [id number] Department of Physician: Geetha Blankenship M.D. Division of Service Date: 06/24/2019 Cardiology Birthdate: 1935 Adult Cardiovascular Room #: Services [facility] [address] [place] [address] Cardiovascular Laboratory Report FINAL IMPRESSION: 1. Normal right and left ventricular filling pressures. 2. Preserved cardiac output and cardiac index. 3. Mild pulmonary artery hypertension. 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 He has been experiencing shortness of breath [...] modified Seldinger technique and ultrasound guidance, a 5-[place]izen Of [place] micropuncture was placed in right internal jugular vein. This was upsized to a regular 6-Citizen [place] pinnacle sheath and a 6-[place] Jackson was used for right heart catheterization. [...] Lucas M.D. Date Trans: 06/25/2019 05:12 A/deniz [id number] cc: Rio Lal D.O. [address] [place] [address] Normal [facility] Neurosurgery Office/Clinic N saul 04-13-2018 Neurosurgery [...] CAMACHO, Arsalan Owen 04/13/18 15:39 EDT Normal [facility] CT Spine Lumbar w/ Contrasto n [...] Further degenerative changes are detailed above.Radiation Dose Estimate:CTDI(mGy):0.52405 0 / / / kVp:120.716303 / mAs:0.376730 / / / DLP(mGy-cm):5.783266Xzah Part:CTDI(mGy):28.326698 / / / kVp:120.033628 / mAs:294.958530 / / / DLP(mGy-cm):632.420116Bsol Part: Final Dictated by: Naldo Aguilar MD, MDictated DT/TM: 04.06.2018 11:34 amSigned by: Naldo Aguilar MD MSigned (Electronic Signature): 04.06.2018 3:49 pmTranscribed DT/TM: 04.06.2018 1:29 pm(If Report Is Signed, Electronically Signed in Other Vendor System) Normal [facility] Inpatient Clinical Summaryon 04-06-2018 Inpatient Clinical Summary [address] [id number] SummaryPerson InformationName: Alvin Boyd Age: 82 Years : 1935Sex: Male PCP: Rio Lal DOMarital Status: PCP: [id number]:White Ethnicity:Not or Language:EnglishMRN: [id number] Visit Id: Reason:stenosis, bilateral leg pain Speciality: Acuity:Enc Type: Outpatient in a Bed Med Service: Radiology-Diagnostic ImagingArrival:04/06/2018 08:16:35 Discharge: Dispo Type:Address:[address] [place] [id number]:Discharged To:Home Treatments:Devices/Equipme nt:Professional Skilled Services:Special Services and [...] Assoc 04/14/2018 14:30:00 04/14/2018 15:00:00 Confirmed Normal [facility] PTon 04-06-2018 INR Coag RelTime (PPP) 1.1 {INR} Normal <=3.5 [facility] Comment on above: Result Comment: INR has no normal range. INR Therapeutic range is:2.0-3.0 (AF, CVA, TIAs, DVT prophylaxis, acute DVT)2.5-3.5 ([facility] heart valves, recurrent thrombosis/emboli) Performed By: #### P TINR ####[place] [address] Prothrombin time (PT) Coag time (PPP) 11.3 s Normal 9.1-11.9 [facility] Comment on above: Performed By: #### P TINR ####[address] [address] PTTon 04-06-2018 aPTT 24.0 s Normal 21.0-28.8 [facility] Comment on above: Performed By: #### P TT ####[address] [address] Platelet Counton 04-06-2018 Platelets 135 x10*3/mcL Low 150-350 [facility] Comment on above: Performed By: #### P LTS ####[address] [address] XR Myelography Lumbosacral S pineon 04-06-2018 XR [...] Electronically Signed in Other Vendor System) Normal [facility] XR Spine Lumbosacral 2 or 3 [...] Electronically Signed in Other Vendor System) Normal [facility] Neurosurgery Office/Clinic N oteon 03-29-2018 Neurosurgery Office/Clinic Note 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 Upon completion [...] JOE Dragan Cinthia 03/29/18 12:41 EDT Normal [facility] Pain Management Office/Clini c Noteon 03-16-2018 [...] Injections: 11-09-17 Date Surgery: n/a Frequency PT: [id number] Effective PT: not much help Effective Injections: [...] by Myrna Reyes CNP 03/16/18 13:37 EDT [facility] Pain Management Office/Clini c Noteon 02-19-2018 [...] Injections: 11-09-17 Date Surgery: n/a Frequency PT: [id number] Effective PT: not much help Effective Injections: [...] DIAZ Myrna Gardnere 02/19/18 12:56 EDT Normal [facility] History and Physicalon 01-13 History and [...] Johnathan Guzman MD 01/13/18 15:09 EST Normal [facility] Pain Management Procedure No glenn 01-13-2018 [...] cl CAMACHO, Johnathan 01/13/18 15:09 EST Normal [facility] Ambulatory Patient Education on 01-06-2018 Ambulatory Patient Education Patient Education MaterialsName: Alvin Boyd Current Date: 01/06/2018 15:32:58 [place] 1935 following sheet(s) are the Patient Education Leaflets for Alvin oByd Block InjectionNerve Block injections are used in [...] the next day. You must have a otr van cdl truck driver that will wait in the [...] procedure: Please arrive at: Please check in at:Seat Nailer Desk in the Pain Management [id number] [facility], 3rd floor [facility] OHReception Desk inside the Emergency Room at [address]*Due to the sedation given for the procedure, you will not be permitted to drive until the following day. For this reason, you will need to bring a otr van cdl truck driver to stay with you and [...] Hibiclens (a medicated soap) prior to your surgery.*[place] teeth, rinse with water, but do not swallow.*Please wear comfortable clothing, without metal zippers or snaps. Do not wear contact lenses. Do wear your hearing aid. Please leave all jewelry and valuables at home; you may wear your wedding ring.*Please note that due to limited space, your family member/otr van cdl truck driver will need to wait in the waiting area while you are in the procedure area. Absolutely no children should attend an appointment for an injection.*All prescription refills must be requested in advance. No prescription refills requested on the day of a procedure will be available until at least 3 business days later.*If your procedure is done in [place], you will be receiving a statement from [employer] [facility] for the professional (physician's) billing fees and for the technical (hospital's) fees and a separate statement for the anesthesia provider. If your procedure is done in [place], you will be receiving a statement from [employer] [facility] for professional (physician's) billing fees, [...] questions or concerns, please contact the appropriate office:[facility] ([place] office) [phone] [facility] ([place] office) [phone] follow up appointment is scheduled for:AT:[facility] [address] [facility], 3rd floor [facility], [facility] [address] [facility], [address], [facility] [address] [facility], 2nd floor clinic, [address]?WHAT TO EXPECT AFTER THE PROCEDURE:Please note [...] increase pain. (for example, bending, twisting, walking, target worker).Try to avoid pain medication or sleeping during [...] call the office immediately if noted.Contact stimulator solar manufacturer's representative with questions regarding stimulator use.(see rep [...] and call office immediately if noted.Contact stimulator solar manufacturer's representative with questions regarding stimulator use.(see rep [...] drainage and call immediately if noted.Contact stimulator solar manufacturer's representative with questions regarding stimulator use.(see rep card) Normal [facility] Pain Management Office/Clini c Noteon 01-06-2018 [...] PT: 01/16 Date Injections: 11-09-17 Frequency PT: [id number] Effective PT: not much help Effective Injections: [...] Myrna Reyes CNP 01/06/18 15:15 EST Normal [facility] Pain Management Office/Clini c Noteon 11-09-2017 [...] Johnathan smallwood MD 11/09/17 09:27 EST Normal [facility] Procedure Noteon 11-09-2017 Procedure Note PROCEDURE: [...] Johnathan Guzman MD 11/09/17 09:36 EST Normal [facility] Ambulatory Patient Education on 10-14-2017 Ambulatory [...] procedure: Please arrive at: Please check in at:Seat Nailer Desk in the Pain Management [id number] [place] [address], [address]rd [address] [facility] Room at [address]*Due to the sedation given for the procedure, you will not be permitted to drive until the following day. For this reason, you will need to bring a otr van cdl truck driver to stay with you and [...] Hibiclens (a medicated soap) prior to your surgery.*[place] teeth, rinse with water, but do not swallow.*Please wear comfortable clothing, without metal zippers or snaps. Do not wear contact lenses. Do wear your hearing aid. Please leave all jewelry and valuables at home; you may wear your wedding ring.*Please note that due to limited space, your family member/otr van cdl truck driver will need to wait in the waiting area while you are in the procedure area. Absolutely no children should attend an appointment for an injection.*All prescription refills must be requested in advance. No prescription refills requested on the day of a procedure will be available until at least 3 business days later.*If your procedure is done in [place], you will be receiving a statement from [facility] for the professional (physician's) billing fees and for the technical (hospital's) fees and a separate statement for the anesthesia provider. If your procedure is done in [place], you will be receiving a statement from [facility] for professional (physician's) billing fees, technical [...] questions or concerns, please contact the appropriate office:[facility] ([place] office) [phone] [facility] ([place] office) [phone] follow up appointment is scheduled for:AT:[facility] [address] [facility], 3rd floor [facility], [facility] Management [address] [facility], [address], [facility] [address] [facility], 2nd floor clinic, [facility] [address] [facility]?WHAT TO EXPECT AFTER THE PROCEDURE:Please note the [...] increase pain. (for example, bending, twisting, walking, target worker).Try to avoid pain medication or sleeping during [...] call the office immediately if noted.Contact stimulator solar manufacturer's representative with questions regarding stimulator use.(see rep [...] and call office immediately if noted.Contact stimulator solar manufacturer's representative with questions regarding stimulator use.(see rep [...] drainage and call immediately if noted.Contact stimulator solar manufacturer's representative with questions regarding stimulator use.(see rep card)Nerve Root InjectionThe nerve root injection is a procedure where a local anesthetic and steroid solution are administered near the nerve as it exits the spinal canal. This is done under fluoroscopy (watching under live x-ray) to deliver the drug to the precise location.Am I a candidate for a nerve root injection?At [facility], the provider examining you [...] procedure. You are required to have a otr van cdl truck driver remain in the facility before [...] home the morning of the procedure. Normal [facility] Pain Management Office/Clini c Noteon 10-14-2017 [...] Chiropractor: 11/2016 Date PT: 01/16 Frequency PT: [id number] Effective PT: not much help Comments TENS: [...] Myrna Reyes CNP 10/14/17 11:44 EST Normal [facility] History and Physicalon 09-09 History and [...] Johnathan Guzman MD 09/09/17 11:17 EDT Normal [facility] Comment on above: Order Comment: This [...] Johnathan smallwood MD 09/09/17 11:20 EDT Normal [facility] Procedure Noteon 09-09-2017 Procedure Note PROCEDURE: [...] Johnathan smallwood MD 09/09/17 11:21 EDT Normal [facility] History and Physicalon 08-26 History and [...] cl CAMACHO, Johnathan 08/26/17 14:38 EDT Normal [facility] History and Physical History of Present [...] smallwood MD, Johnathan 08/26/17 15:42 EDT Normal [facility] Procedure Noteon 08-26-2017 Procedure Note PROCEDURE: [...] cl CAMACHO, Johnathan 08/26/17 15:42 EDT Normal [facility] Ambulatory Patient Education on 07-29-2017 Ambulatory [...] procedure: Please arrive at: Please check in at:Seat Nailer Desk in the Pain Management [id number] [place] [address], [address]rd [address] [facility] Room at [address]*Due to the sedation given for the procedure, you will not be permitted to drive until the following day. For this reason, you will need to bring a otr van cdl truck driver to stay with you and [...] Hibiclens (a medicated soap) prior to your surgery.*[place] teeth, rinse with water, but do not swallow.*Please wear comfortable clothing, without metal zippers or snaps. Do not wear contact lenses. Do wear your hearing aid. Please leave all jewelry and valuables at home; you may wear your wedding ring.*Please note that due to limited space, your family member/otr van cdl truck driver will need to wait in the waiting area while you are in the procedure area. Absolutely no children should attend an appointment for an injection.*All prescription refills must be requested in advance. No prescription refills requested on the day of a procedure will be available until at least 3 business days later.*If your procedure is done in [place], you will be receiving a statement from [facility] for the professional (physician's) billing fees and for the technical (hospital's) fees and a separate statement for the anesthesia provider. If your procedure is done in [place], you will be receiving a statement from [facility] for professional (physician's) billing fees, technical [...] or concerns, please contact the appropriate office:[facility] ([place] office) [phone] [facility] ([place] office) [phone] follow up appointment is scheduled for:AT:[facility] [address] [facility], 3rd floor [facility], [facility] [address] [facility], [address], [facility] [address], 2nd floor clinic, [place] [address] [facility]?WHAT TO EXPECT AFTER THE PROCEDURE:Please note the [...] increase pain. (for example, bending, twisting, walking, target worker).Try to avoid pain medication or sleeping during [...] call the office immediately if noted.Contact stimulator solar manufacturer's representative with questions regarding stimulator use.(see rep [...] and call office immediately if noted.Contact stimulator solar manufacturer's representative with questions regarding stimulator use.(see rep [...] drainage and call immediately if noted.Contact stimulator solar manufacturer's representative with questions regarding stimulator use.(see rep [...] sedation. You are required to have a otr van cdl truck driver remain in the facility before and during the procedure, then drive you home following the procedure.What should I expect after the procedure?You are required to have a otr van cdl truck driver remain in the waiting room of [facility] during the procedure and drive you home [...] physician regarding your other diabetic medications. Normal [facility] Pain Management Office/Clini c Noteon 07-29-2017 [...] Chiropractor: 11/2016 Date PT: 01/16 Frequency PT: [id number] Effective PT: not much help Comments TENS: [...] CNP Myrna Baez 07/29/17 13:55 EDT Normal [facility] History and Physicalon 06-29 History and [...] Johnathan smallwood MD 06/29/17 13:18 EDT Normal [facility] Procedure Noteon 06-29-2017 Procedure Note PROCEDURE: [...] The patient was [facility] and taken to recovery in stable condition to be discharged per criteria.Electronically signed by B Johnathan smallwood MD 06/29/17 14:34 EDT [facility] History and Physicalon 06-15 History and [...] Johnathan Guzman MD 06/15/17 16:22 EDT Normal [facility] Procedure Noteon 06-15-2017 Procedure Note PROCEDURE: [...] The patient was turned back onto the [facility] and taken to recovery in stable condition to be discharged per criteria.Electronically signed by B Johnathan smallwood MD 06/15/17 16:23 EDT Normal [facility] Ambulatory Patient Education on 05-27-2017 Ambulatory [...] have a lot of pain?Your physician at [facility] will do everything possible [...] procedure. You are required to have a otr van cdl truck driver remain in the facility before [...] procedure: Please arrive at: Please check in at:Seat Nailer Desk in the Pain Management [id number] [facility], 3rd floor [facility] [place] inside the Emergency Room at [place] [id number], [place]*Due to the sedation given for the procedure, you will not be permitted to drive until the following day. For this reason, you will need to bring a otr van cdl truck driver to stay with you and [...] Hibiclens (a medicated soap) prior to your surgery.*[place] teeth, rinse with water, but do not swallow.*Please wear comfortable clothing, without metal zippers or snaps. Do not wear contact lenses. Do wear your hearing aid. Please leave all jewelry and valuables at home; you may wear your wedding ring.*Please note that due to limited space, your family member/otr van cdl truck driver will need to wait in the waiting area while you are in the procedure area. Absolutely no children should attend an appointment for an injection.*All prescription refills must be requested in advance. No prescription refills requested on the day of a procedure will be available until at least 3 business days later.*If your procedure is done in [place], you will be receiving a statement from [facility] for the professional (physician's) billing fees and for the technical (hospital's) fees and a separate statement for the anesthesia provider. If your procedure is done in [place], you will be receiving a statement from [facility] for professional (physician's) billing fees, technical [...] questions or concerns, please contact the appropriate office:[facility] ([place] office) [phone] [facility] ([place] office) [phone] follow up appointment is scheduled for:AT:[facility] [address] [facility], 3rd floor [facility], [facility] [address] [facility], [address], [address], 2nd floor clinic, [address]?WHAT TO EXPECT AFTER THE PROCEDURE:Please note [...] increase pain. (for example, bending, twisting, walking, target worker).Try to avoid pain medication or sleeping during [...] call the office immediately if noted.Contact stimulator solar manufacturer's representative with questions regarding stimulator use.(see rep [...] and call office immediately if noted.Contact stimulator solar manufacturer's representative with questions regarding stimulator use.(see rep [...] drainage and call immediately if noted.Contact stimulator solar manufacturer's representative with questions regarding stimulator use.(see rep card) Normal [facility] Pain Management Office/Clini c Noteon 05-27-2017 [...] Chiropractor: 11/2016 Date PT: 01/16 Frequency PT: [id number] Effective PT: not much help Comments TENS: [...] on his/her behalf by a trained medical editor. The creation of this document is based on the provider?s statements to the medical editor.Problem List/Past Medical History Ongoing Acid reflux Angina [...] Myrna infante CNP 05/27/2017 10:22 EDT Normal [facility] Encounters Encounter Date Encounter Type Care Provider Facility Start: 10-19-2023 End: 10-19-2023 ambulatory [facility] Start: 04-08-2023 End: 04-08-2023 ambulatory [facility] Start: 03-30-2023 End: 04-29-2023 ambulatory SHAIKH [...] Start: 10-29-2022 End: 10-29-2022 ambulatory DRAGAN SANTOS [facility] Start: 09-30-2022 End: 10-29-2022 ambulatory NOGUEIRA H FAWWAD Facility:[facility] Start: 09-01-2022 End: 09-29-2022 ambulatory NOGUEIRA H FAWWAD Facility:[facility] Start: 07-31-2022 End: 08-30-2022 ambulatory NOGUEIRA H FAWWAD Facility:[facility] Start: 06-30-2022 End: 07-30-2022 ambulatory NOGUEIRA H FAWWAD Facility:[facility] Start: 05-30-2022 End: 06-27-2022 ambulatory NOGUEIRA H FAWWAD Facility:[facility] Start: 06-24-2019 End: 06-25-2019 Patient encounter procedure RIO LAL Facility:[facility] Start: 06-21-2019 End: 06-27-2019 Patient encounter procedure GERBER PETER Facility:[facility] Start: 04-13-2018 End: 04-14-2018 Ambulatory Rio Lal Facility:[facility] Start: 04-06-2018 End: 04-06-2018 Ambulatory RIO LAL Facility:[facility] Start: 03-29-2018 End: 03-30-2018 Ambulatory DRAGAN MORLEY Facility:[facility] Start: 03-16-2018 End: 03-17-2018 Ambulatory MYRNA DENIS AUXIER Facility:[facility] [place] Start: 02-19-2018 End: 02-20-2018 Ambulatory RIO LAL Facility:[facility] [place] Start: 01-13-2018 End: 01-13-2018 Ambulatory JOHNATHAN LAYAOS Facility:[facility] Start: 01-06-2018 End: 01-07-2018 Ambulatory MYRNA CAST Facility:[facility] [place] Start: 11-09-2017 End: 11-09-2017 Ambulatory JOHNATHAN LAYAOS Facility:[facility] Start: 10-14-2017 End: 10-15-2017 Ambulatory MYRNA DENIS CAST Facility:[facility] [place] Start: 09-09-2017 End: 09-09-2017 Ambulatory JOHNATHAN LAYAOS Facility:[facility] Start: 08-26-2017 End: 08-26-2017 Ambulatory JOHNATHAN LAYAOS Facility:[facility] Start: 07-29-2017 End: 07-30-2017 Ambulatory MYRNA CAST Facility:[facility] [place] Start: 06-29-2017 End: 06-29-2017 Ambulatory JOHNATHAN BAKOS Facility:[facility] Start: 06-15-2017 End: 06-15-2017 Ambulatory JOHNATHAN LAYAOS Facility:[facility] Start: 05-27-2017 End: 05-28-2017 Ambulatory MYRNA CAST Facility:[facility] [place] Payers Date Payer Category Payer Medicare 1958 Medicare [id number] 1958 Unknown [id number] 1958 Unknown [id number] 1936 Unknown [id number] 2.16.8 [id number] 1936 Unknown [id number] 2.16.8 [id number] 1936 Unknown [id number] 2.16.84 [id number] 1936 Unknown [id number] 2.16.84 [id number] 1936 Unknown [id number] 2.16.84 [id number] 1936 Unknown [id number] 2.16.84 [id number] 1936 Unknown [id number] 2.16.84 0.1.855171.3.579.2.593 1936 Unknown [id number] 2.16.84 [id number] 1936 Unknown [id number] 2.16.84 [id number] 1936 Unknown [id number] 2.16.84 [id number] 1936 Unknown [id number] 2.16.84 [id number] 1936 Unknown [id number] 2.16.84 0.1.271111.3.579.2.593 1936 Unknown [id number] 2.16.84 [id number] 1936 Unknown [id number] 2.16.84 [id number] 1936 Unknown [id number] 2.16.84 [id number] Medicare [id number] Clinical Notes 10-29-2022 to 10-19-2023 Note Date [...] Positive for arthritis. Gastrointestinal: Positive for diarrhea. [facility] 10-19-2023 Note [facility] Reason for visit: 6-month [...] aortic valve stenosis, CHF HFimpEF s/p BiV [employer]INION [employer]ER-P EF 55% he is here for 6-month [...] Atrial fibrillation (CMS/HCC) CHF (congestive heart failure) ([facility]) Coronary artery disease Heart valve disease Hyperlipidemia [...] per After Visit Summary. Follow up with [facility] for INR atorvastatin (Lipitor) 40 mg [...] no difficulty hear (more content not included)... [facility] 04-08-2023 Note Patient here for 6 [...] All other systems reviewed and are negative. [facility] 04-08-2023 Note [facility] Consult Note Reason for visit: 6-month follow-up HPI: Alvin Boyd is a 87 y.o. year old with past medical history of CAD s/p stent 2012, A-fib, aortic valve stenosis, CHF HFimpEF s/p BiV [employer]INION [employer]ER-P EF 55% he is here for 6-month [...] Past Medical History: Diagnosis Date Atrial fibrillation ([facility]) CHF (congestive heart failure) ([facility]) Coronary artery disease Heart valve disease Hyperlipidemia [...] cough, no w (more content not included)... [facility] 10-29-2022 Note [id number]= 5 Remains rate controlled with coreg and anticoagulation with jantoven Denied any bleeding tendencies [facility] 10-29-2022 Note Continue GDMT- lipit or, coreg, entresto, lasix [facility] II-III Currently euvolemic without exacerbation Overall pt is doing quite well No concerning symptoms today Monitor daily weights, I&O, fluid restriction 1.5-2L/day, renal function remains stable [facility] 10-29-2022 Note Continue GDMT- mario nue coreg, lipitor- no ASA with anticoagulation- jantoven [facility] 10-29-2022 Note Annual labs with PCP - Dr Gil Continue lipitor [facility] 10-29-2022 Note No concerning sympto ms today Will monitor with routine echo- or repeat echo with concerning symptoms [facility] 10-29-2022 Note [facility] CARDIOLOGY PROGR ESS [...] Gil Continue lipitor Coronary artery disease involving enterprise coronary artery of enterprise heart without angina pectoris Continue GDMT- continue coreg, lipitor- no ASA with anticoagulation- jantoven Acute on chronic systolic heart failure, NYHA class 2 (CMS/HCC) Continue GDMT- lipitor, coreg, entresto, lasix [facility] II-III Currently euvolemic without exacerbation Overall pt is doing quite well No concerning symptoms today Monitor daily weights, I&O, fluid restriction 1.5-2L/day, renal function remains stable Chronic atrial fibrillation (CMS/HCC) [id number]= 5 Remains rate controlled with coreg and anticoagulation with jantoven Denied any bleeding tendencies RTC 6 months or earlier if needed [facility] 10-29-2022 Note Patient here for 6 [...] All other systems reviewed and are negative. [facility] 10-29-2022 Note Device check 2 Device functioning normal, 99% BI-V pacing 04/15/22- battery life 7 yrs, normal device function, no ventricular arrythmias, 100% Bi-V paced [facility] Summary Purpose Family History No Family [...] section and content) DATE CREATED AUTHOR 05/19/2018 [facility] DATE CREATED AUTHOR AUTHOR'S ORGANIZ ATION 06/19/2020 [facility] DATE CREATED AUTHOR AUTHOR'S ORGANIZ ATION 05/08/2023 [facility] DATE CREATED AUTHOR AUTHOR'S ORGANIZ ATION 10/20/2023 [facility] FOR RECORDS PERTAINING TO PATIENTS WHO ARE [...] BE BASED ON THE PRIMARY CLINICAL RECORDS. [employer] provides no warranty or guarantee of the accuracy or completeness of information in this document.
--- NOTE | 2023-11-27 09:44 | CM.NOTE ---
Important Message From Medicare discussed with pt, pt verbalizes understanding and signs paper. Original given to pt and copy placed on pt's chart.
[2023-11-27] MEDS: OMEPRAZOLE 40 MG CAPSULE.DR PO (09:48)
[2023-11-27] MEDS: POTASSIUM CHLORIDE 10 MEQ ER TABLET 40 MEQ PO (09:48)
[2023-11-27] MEDS: DULOXETINE HCL 30 MG CAPSULE.DR PO (09:48)
[2023-11-27] MEDS: CARVEDILOL 12.5 MG TABLET PO ×2 (09:48→21:15)
[2023-11-27] MEDS: ONDANSETRON 4 MG RAPDIS TABLET PO (09:48)
[2023-11-27] MEDS: ATORVASTATIN CALCIUM 40 MG TABLET PO (09:48)
[2023-11-27] MEDS: MONTELUKAST SODIUM 10 MG TABLET PO (09:48)
--- NOTE | 2023-11-27 11:22 | CM.NOTE ---
Rounding with Dr. Nair. Family present in room at this time. Uses CPAP at night. Discussed history of A-fib and DVT and taking coumadin. Daughter mentions they have a private caregiver for mother at home from 9am-2pm, then patient stays with from that point on. Daughters also stay with mom if/when needed. Continue to follow for any possible discharge needs.
--- NOTE | 2023-11-27 12:06 | CM.NOTE ---
Dr. Nair discussed code status with patient and nurse Blanca at bedside and daughter, and reviewed. DNR CCA per Dr. Nair at this time.
[2023-11-27] MEDS: AZITHROMYCIN 250 MG TABLET 500 MG PO (13:45)
[2023-11-27] MEDS: PREDNISONE 20 MG TABLET 40 MG PO (13:45)
[2023-11-27] MEDS: GUAIFENESIN 600 MG TAB.ER.12H PO ×2 (13:45→21:15)
--- NOTE | 2023-11-27 14:16 | CM.NOTE ---
Discussed with patient PT recommenations for Home Health. Pt. is not homebound and stated he gets out daily and goes for a drive. Pt. also states, I do much better at home with my rollator than with the walker they let me use here. Pt. does not feel he needs home health at this time and is not homebound. Denies any other discharge needs.
[2023-11-27 16:58] LABS: INR 2.99; Prothrombin Time 29.8 sec (9.0-11.6)
[2023-11-27] MEDS: IPRATROPIUM/ALBUTEROL SULFATE 3 ML AMPUL.NEB IH ×2 (17:18→23:21)
[2023-11-27] MEDS: WARFARIN SODIUM 4 MG TABLET PO (17:31)
[2023-11-27] MEDS: CEFTRIAXONE 1,000 MG in 0.9 % SODIUM CHLORIDE 50 ML 100 MG IV (21:15)
[2023-11-28 04:29] VITALS: PULSE 67; RESP 20; O2SAT 94
[2023-11-28] MEDS: IPRATROPIUM/ALBUTEROL SULFATE 3 ML AMPUL.NEB IH ×2 (04:29→10:20)
[2023-11-28 04:49] LABS: Basophils Percent Auto 0.1 % (0.2-2.0); Hematocrit 31.7 % (42.0-54.0); Hemoglobin 10.3 g/dL (14.0-18.0); Immature Granulocytes Abs Auto 0.09 10^3/uL (0.00-0.03); Immature Granulocytes Pct Auto 0.8 % (0.0-0.5); Lymphocytes Absolute Auto 0.6 10^3/uL (1.2-3.8); Lymphocytes Percent Auto 4.6 % (20.5-60.0); Mean Corpuscular HGB Conc 32.5 g/dL (29.9-35.2); Mean Corpuscular Volume 95.5 fL (80.0-94.0); Monocytes Absolute Auto 0.5 10^3/uL (0.3-0.8); Monocytes Percent Auto 3.9 % (1.7-12.0); Neutrophils Absolute Auto 10.8 10^3/uL (1.4-6.5); Neutrophils Percent Auto 90.6 % (43.0-75.0); Platelet Count 137 10^3/uL (150-450); Red Blood Count 3.32 10^6/uL (4.70-6.10); Red Cell Distribution Width 13.2 % (11.0-15.0); White Blood Count 11.9 10^3/uL (4.0-11.0)
[2023-11-28 05:02] LABS: INR 2.82; Prothrombin Time 28.2 sec (9.0-11.6)
[2023-11-28 05:09] LABS: Alanine Aminotransferase 23 U/L (16-63); Albumin Globulin Ratio 0.8; Albumin Level 2.7 g/dL (3.4-5.0); Alkaline Phosphatase 47 U/L (46-116); Anion Gap 12.3; Aspartate Amino Transferase 16 U/L (15-37); BUN Creatinine Ratio 41.7; Bilirubin Total 0.8 mg/dL (0.2-1.0); Carbon Dioxide 23.3 mmol/L (21.0-32.0); Chloride 105 mmol/L (98-107); Estimated GFR (African America >60 (>=60); Estimated GFR (Non-African Ame 57 (>=60); Globulin 3.2 g/dL; Glucose 182 mg/dL (74-106); Potassium 3.6 mmol/L (3.5-5.1); Sodium 137 mmol/L (136-145); Total Protein 5.9 g/dL (6.4-8.2)
[2023-11-28 05:56] VITALS: BP 135/82; PULSE 60; RESP 18; TEMP 36.3; O2SAT 93
[2023-11-28 08:26] VITALS: BP 151/88
[2023-11-28] MEDS: DULOXETINE HCL 30 MG CAPSULE.DR PO (08:58)
[2023-11-28] MEDS: ATORVASTATIN CALCIUM 40 MG TABLET PO (08:58)
[2023-11-28] MEDS: MONTELUKAST SODIUM 10 MG TABLET PO (08:58)
[2023-11-28] MEDS: CARVEDILOL 12.5 MG TABLET PO (08:58)
[2023-11-28] MEDS: ONDANSETRON 4 MG RAPDIS TABLET PO (08:58)
[2023-11-28] MEDS: PREDNISONE 20 MG TABLET 40 MG PO (08:58)
[2023-11-28] MEDS: GUAIFENESIN 600 MG TAB.ER.12H PO (08:58)
[2023-11-28] MEDS: OMEPRAZOLE 40 MG CAPSULE.DR PO (08:58)
--- NOTE | 2023-11-28 09:33 | REH.PTDLY ---
Physical Therapy Daily Note PT Daily Note/Assess Start: 11/28/23 09:27 Freq: Status: Active Protocol: Document 11/28/23 08:30 EDER (Rec: 11/28/23 09:33 [id number] Physical Therapy Daily Note/Assessment Time In 08:28 Time Out 08:41 Subjective Hoping to go home today, no complaints this morning. Therapeutic Exercise Minutes (minutes) 8 Therapeutic Exercise Units 1 Therapeutic Exercise Treatment Instructed in B LE seated exs sitting bedside for core stability to stay upright. Exs performed 10x ea with cues and demo, including AP, LAQ, hip abd, hip add, and marching . Therapeutic Activity Minutes (minutes) 5 Therapeutic Activity Units 0 Bed Mobility Ability Minimum Assist,1 Person Assist Chair Transfer Ability Standby Assistance Therapeutic Activity Comments Pt requires Min A/with L UE to sit up in bed with pt also pushing off from R elbow. Sit to stand transfers SBA. Gait training with SW 50 feet. Pt reports he uses rollator at home, and lives in handicap accessible house, does not have to walk far and has lift chairs. Pt declines to sit in chair in room as he feels like he won't be able to stand up from it being too low. Total Therapy Minutes 13 Total Physical Therapy Units 1 Daily Note Summary Pt does well overall, moves at slower pace which pt states is his normal. Does require some assist with supine to sit transfers, but SBA with all other transfers. Pt is equipped at home per subjective report. Pt could benefit from OP therapy to gain strength.
[2023-11-28] MEDS: AZITHROMYCIN 250 MG TABLET 500 MG PO (10:20)
[2023-11-28 10:35] VITALS: O2SAT 94
[2023-11-28 13:41] VITALS: BP 117/73; PULSE 59; RESP 18; TEMP 36.6; O2SAT 93
[2023-11-28 14:04] LABS: SARS-CoV-2 NAA INCONCLUSIVE (NOT DETECTE)
--- NOTE | 2023-11-28 17:00 | PM.DS1 ---
DS: Providers Provider Date of admission: 11/27/23 12:38 Primary care physician: Non-Staff Physician, Consults: 11/27/23 07:30 Occupational Therapy Eval and Treat Routine Reason for consultation: Ambulatory dysfunction/weakness Physical Therapy Eval and Treat Routine Reason for consultation: Ambulatory dysfunction/weakness DS: Diagnosis Discharge Diagnosis (1) Bacterial pneumonia: (2) Acute respiratory failure with hypoxemia: (3) COPD exacerbation: (4) Dehydration: (5) Hypokalemia: (6) 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): (7) Paroxysmal atrial fibrillation: (8) CAD (coronary artery disease): Qualifiers: Coronary Disease-Associated Artery/Lesion type: [place] artery [place] vs. transplanted heart: [place] heart Associated angina: without angina Qualified Code(s): I25.10 - Atherosclerotic heart disease of [place] coronary artery without angina pectoris (9) H/O deep venous thrombosis: DS: Summary Hospital Course Hospital Course: Reason for admission: See ER note and H&P for details. 87 y/o male to ER with SOB. C/o symptoms for several days. Frequent cough and developed chest heaviness. To ER and 87% on room air. Temp 101.6. Given rocephin for FUO. Chest x-ray clear and admitted. Hospital course: CTA performed and no PE but bilateral pneumonia. Added zithromax. Weaned oxygen. Improved and less SOB. Ambulating around room with walker. Afebrile and WBC improved. Normal SpO2 on room air. Discharged home in stable condition. Take zithromax and cefdinir for pneumonia. Resume home medication as directed. Time Spent with Patient Time attestation: Total time spent providing and/or coordinating discharge services: Exam Constitutional Vital Signs, click to edit/add: Last Vital Signs Temp 97.9 F 11/28/23 13:41 Pulse 59 L 11/28/23 13:41 Resp 18 11/28/23 13:41 BP 117/73 11/28/23 13:41 Pulse Ox 93 L 11/28/23 13:41 O2 Del Method Room Air 11/28/23 13:41 O2 Flow Rate 1 11/27/23 06:32 Documenting provider has reviewed patient's vital signs: yes Common normals: no apparent distress, oriented x3 and alert HENMT Common normals: normocephalic Eye Common normals: PERRL and EOMs intact bilaterally Respiratory Common normals: normal respiratory effort and clear to auscultation bilaterally Cardio Common normals: regular rate, regular rhythm, no gallops, no murmurs and no rub GI Common normals: Normal to inspection, nondistended, normoactive bowel sounds present and non-tender Extremity Common normals: no pedal edema DS: Data Data Completed and Pending Labs on day of discharge: Labs from last 24 hours 11/28/23 11/26/23 04:32 18:35 WBC 11.9 H RBC 3.32 L Hgb 10.3 L Hct 31.7 L MCV 95.5 H MCH 31.0 MCHC 32.5 RDW 13.2 Plt Count 137 L MPV 10.0 Neut % (Auto) 90.6 H Lymph % (Auto) 4.6 L [place] % (Auto) 3.9 Eos % (Auto) 0.0 L Baso % (Auto) 0.1 L Neut # (Auto) 10.8 H Lymph # (Auto) 0.6 L [place] # (Auto) 0.5 Eos # (Auto) 0.0 Baso # (Auto) 0.0 Abs Immat Gran (auto) 0.09 H Imm/Tot Granulo (auto) 0.8 H PT 28.2 H INR 2.82 Sodium 137 Potassium 3.6 Chloride 105 Carbon Dioxide 23.3 Anion Gap 12.3 BUN 50.0 H Creatinine 1.20 Est GFR ( Amer) >60 Est GFR (Non-Af Amer) 57 L BUN/Creatinine Ratio 41.7 Glucose 182 H Calcium 9.0 Total Bilirubin 0.8 AST 16 ALT 23 Alkaline Phosphatase 47 Total Protein 5.9 L Albumin 2.7 L Globulin 3.2 Albumin/Globulin Ratio 0.8 SARS-CoV-2 RNA (CANDICE) Inconclusive A Preliminary micro results at discharge 11/26/23 19:00 Blood Culture Result 1 - Preliminary Blood 11/26/23 18:25 Blood Culture Result 1 - Preliminary Blood Discharge Plan Discharge Disposition: Home, Self-Care Discharge Medications: New prednisone 20 mg Tablet 40 mg PO QD 5 Days Qty: 10 0RF azithromycin [Zithromax] 250 mg tablet 250 mg PO DAILY 4 Days Qty: 4 0RF Rx Instructions: start on day 2 of therapy cefdinir 300 mg capsule 300 mg PO BID 10 Days Qty: 20 0RF Continued atorvastatin 40 mg tablet 40 mg PO DAILY carvedilol 12.5 mg tablet 12.5 mg PO BID duloxetine 30 mg capsule,delayed release(DR/EC) 30 mg PO DAILY hydrochlorothiazide 12.5 mg tablet 12.5 mg PO BID montelukast 10 mg tablet 10 mg PO DAILY omeprazole 40 mg capsule,delayed release(DR/EC) 40 mg PO DAILY ondansetron HCl 4 mg tablet 4 mg PO DAILY warfarin [Jantoven] 4 mg tablet 4 mg PO DAILY Activity: resume usual activities as tolerated Diet: advance to your usual diet Patient Instructions: Prednisone (By mouth), Azithromycin (By mouth), Cefdinir (By mouth), Bacterial Pneumonia (GEN) Forms: Portal Instructions Follow Up Appointments: Follow up with your primary care physician in 7-10 days from discharge Discharge Date/Time: 11/28/23 15:00
== END 2023-11-28 15:00 | disposition home or self-care (01) | DRG 193 ==
LOC: ER 20:21 → MS 11-27 08:00
PROVIDERS: Emergency Medicine Emergency Medical Services; Internal Medicine; Admitting Provider Internal Medicine; Emergency Provider Emergency Medicine; Visit Provider Internal Medicine
DX: J15.9 Unspecified bacterial pneumonia (principal); J96.01 Acute respiratory failure with hypoxia; J44.1 Chronic obstructive pulmonary disease with (acute) exacerbation; I50.32 Chronic diastolic (congestive) heart failure; J44.0 Chronic obstructive pulmonary disease with (acute) lower respiratory infection; Z66 Do not resuscitate; I25.10 Atherosclerotic heart disease of native coronary artery without angina pectoris; I48.0 Paroxysmal atrial fibrillation; E78.5 Hyperlipidemia, unspecified; J43.9 Emphysema, unspecified; I25.2 Old myocardial infarction; Z95.0 Presence of cardiac pacemaker; E86.0 Dehydration; E87.6 Hypokalemia; F32.5 Major depressive disorder, single episode, in full remission; H91.90 Unspecified hearing loss, unspecified ear; Z86.718 Personal history of other venous thrombosis and embolism; Z86.73 Personal history of transient ischemic attack (TIA), and cerebral infarction without residual deficits; Z96.659 Presence of unspecified artificial knee joint; Z96.649 Presence of unspecified artificial hip joint; Z87.891 Personal history of nicotine dependence; Z79.01 Long term (current) use of anticoagulants
CPT/HCPCS: 0202U; 36415; 71045; 71275; 80048; 80053; 81001; 82800; 83880; 84484; 85007; 85025; 85027; 85378; 85610; 87040; 87635; 87798; 87804; 87811; 93005; 94640; 94667; 94761; 96361; 96365; 96366; 96367; 97110; 97162; 97165; 99285; G0378; G0463; J0456; Q3014; Q9967

== ENCOUNTER 2023-11-30 01:14 | Outpatient (RCR) | payer MEDICARE, SELFPAY | END 2023-12-30 16:56 | disposition home or self-care (01) | LOC: MM 01:14 | PROVIDERS: Visit Provider Internal Medicine | DX: Z51.81 Encounter for therapeutic drug level monitoring (principal); Z79.01 Long term (current) use of anticoagulants; I48.91 Unspecified atrial fibrillation ==

== ENCOUNTER 2023-12-31 00:49 | Outpatient (RCR) | payer MEDICARE, SELFPAY | END 2024-01-28 17:19 | disposition home or self-care (01) | LOC: MM 00:49 | PROVIDERS: Visit Provider Internal Medicine | DX: Z51.81 Encounter for therapeutic drug level monitoring (principal); Z79.01 Long term (current) use of anticoagulants; I48.91 Unspecified atrial fibrillation | CPT/HCPCS: 85610; G0463 ==

== ENCOUNTER 2024-01-29 03:27 | Outpatient (RCR) | payer MEDICARE, SELFPAY | END 2024-02-26 14:07 | disposition home or self-care (01) | LOC: MM 03:27 | PROVIDERS: Visit Provider Internal Medicine | DX: Z51.81 Encounter for therapeutic drug level monitoring (principal); Z79.01 Long term (current) use of anticoagulants; I48.91 Unspecified atrial fibrillation | CPT/HCPCS: 85610; G0463 ==

== ENCOUNTER 2024-02-29 03:19 | Outpatient (RCR) | payer MEDICARE, SELFPAY | END 2024-03-29 18:12 | disposition home or self-care (01) | LOC: MM 03:19 | PROVIDERS: Visit Provider Internal Medicine | DX: Z51.81 Encounter for therapeutic drug level monitoring (principal); Z79.01 Long term (current) use of anticoagulants; I48.91 Unspecified atrial fibrillation | CPT/HCPCS: 85610; G0463 ==

== ENCOUNTER 2024-03-30 00:28 | Outpatient (RCR) | payer MEDICARE, SELFPAY | END 2024-04-29 11:29 | disposition home or self-care (01) | LOC: MM 00:28 | PROVIDERS: Visit Provider Internal Medicine | DX: Z51.81 Encounter for therapeutic drug level monitoring (principal); Z79.01 Long term (current) use of anticoagulants; I48.91 Unspecified atrial fibrillation | CPT/HCPCS: 85610; G0463 ==

== ENCOUNTER 2024-05-02 00:26 | Outpatient (RCR) | payer MEDICARE, SELFPAY | END 2024-05-27 11:00 | disposition home or self-care (01) | LOC: MM 00:26 | PROVIDERS: Visit Provider Internal Medicine | DX: Z51.81 Encounter for therapeutic drug level monitoring (principal); Z79.01 Long term (current) use of anticoagulants; I48.91 Unspecified atrial fibrillation | CPT/HCPCS: 85610; G0463 ==

== ENCOUNTER 2024-05-30 00:52 | Outpatient (RCR) | payer MEDICARE, SELFPAY | END 2024-06-29 09:47 | disposition home or self-care (01) | LOC: MM 00:52 | PROVIDERS: PCP Internal Medicine; Visit Provider Internal Medicine | DX: Z51.81 Encounter for therapeutic drug level monitoring (principal); Z79.01 Long term (current) use of anticoagulants; I48.91 Unspecified atrial fibrillation ==

== ENCOUNTER 2024-05-30 07:46 | Outpatient (OUT) | payer MEDICARE, SELFPAY ==
--- OUTSIDE RECORDS SUMMARY | 2024-05-30 07:52 | XMS_ITS | CCD ---
Author Organization [facility] Care Team Providers Care White Kid Buffer Name Role Phone AUXIER, MYRNA DENIS Unavailable [...] Rio Fabienne Unavailable Unavailabl e MORLEY, DRAGAN MILKA Unavailable Unavailable [place], Myrna Denis~[id number] Unavailable Unavailable ValoneRio Fabienne Unavailable Unavailabl e Valone, Rio Fabienne Unavailable Unavailabl e Arsalan Leija Unavailable Unavailable VALONERIO FABIENNE Unavailable Unavailabl e MORLEY, DRAGAN MILKA Unavailable Unavailable Rio Lal Unavailable Unavailabl e VALONERIO Referring Unavailable RIO LAL Primary Care Unavailable PERLITA LUCAS Attending Unavailable PERLITA LUCAS Admitting Unavailable GERBER PETER Admitting Unavailable GERBER PETER Attending Unavailable RIO LAL Referring Unavailable RIO LAL Primary Care Unavailable SHAIKH Milan URIBE Attending Unavailable SHAIKH Milan URIBE Admitting Unavailable VALFRAN, DR MCCLURE Primary Care Unavailable SHAIKH Milan URIBE Attending Unavailable SHAIKH URIBE H Admitting Unavailable LUKASZ, DR MCCLURE Primary Care Unavailable SHAIKH Milan URIBE Attending Unavailable SHAIKH Milan URIBE Admitting Unavailable VALFRAN, DR MCCLURE Primary Care Unavailable FAWWAD, NOGUEIRA [...] Attending Unavailable VALONE, DR MCCLURE Admitting Unavailable DOMINIQUE JAUREGUI Consulting Unavailable MANSI ., JERRI Admitting Unavailable VALONE, DR MCCLURE Primary Care Unavailable MANSI ., JERRI Attending Unavailable MANSI ., JERRI Consulting Unavailable FAWWAD, NOGUEIRA H Attending Unavailable FAWWAD, NOGUEIRA H Admitting Unavailable VALONE, DR MCCLURE Primary Care Unavailable FAWWAD, NOGUEIRA H Attending Unavailable FAWWAD, NOGUEIRA H Admitting Unavailable VALONE, DR MCCLURE Primary Care Unavailable AMY WIN Attending Unavailable AMY WIN Attending Unavailable SHASTA SELBY Attending Unavailable CUCA KNOTT Referring Unavailable CUCA KNOTT Referring Unavailable DOUG GIBSON Attending Unavailable DOUG GIBSON Attending Unavailable Allergies Allergy Classification Reported Allergen(s) Allergy Type Date of Onset Reaction(s) Facility (1 source) 89012,00; Translations: [Unknown] Propensity to adverse reactions (disorder) 9 [facility] Repository Problems Active Problems Problem Classification Problem Date Documented Date Episodic/Chronic Aortic; peripheral; and visceral artery aneurysms (2 sources) Thoracic aortic ectasia; Translations: [Thoracic aortic ectasia] Onset: 3 Chronic Cardiac dysrhythmias (5 sources) Unspecified atrial fibrillation; Translations: [UNSPECIFIED ATRIAL FIBRILLATION] Onset: 3 Chronic Chronic kidney disease (1 source) Chronic kidney disease; 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] Onset: 2 Conduction disorders (2 sources) Encounter for adjustment and management of automatic implantable cardiac defibrillator; Translations: [Encounter for adjustment and management of automatic implantable cardiac defibrillator] Onset: 3 Chronic Congestive heart failure; nonhypertensive (7 sources) Heart failure, unspecified; Translations: [Chronic diastolic (congestive) heart failure] Onset: 2 Chronic Coronary atherosclerosis and other heart disease (2 sources) Old myocardial infarction; Translations: [Atherosclerotic heart disease of [place] coronary artery without angina pectoris] Onset: 3 Chronic Disorders of lipid metabolism (1 source) Pure hypercholesterolemia, unspecified; Translations: [PURE HYPERCHOLESTEROLEMIA UNSPEC] Onset: 3 Chronic Esophageal disorders (1 source) Gastro-esophageal reflux disease without esophagitis; Translations: [GERD WITHOUT ESOPHAGITIS] Onset: 3 Chronic Hypertension with complications and secondary hypertension (1 source) Hypertensive heart disease with heart failure; Translations: [HTN HEART DISEASE W/HEART FAIL] Onset: 3 Chronic Nutritional deficiencies (1 source) Vitamin D deficiency, unspecified; Translations: [VITAMIN D DEFICIENCY UNSPECIFIED] Onset: 2 Chronic Other aftercare (5 sources) Encounter for therapeutic drug level monitoring; Translations: [ENC THERAPEUTC DRUG LEVL MONITORING] Onset: 3 Episodic Other aftercare (1 source) 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; Translations: [HALF-WAY CURRNT USE ANTICOAGULANTS] Onset: 3 Episodic Other connective tissue disease (1 source) Presence of artificial hip joint, bilateral; Translations: [PRESENCE ARTIFICIAL HIP JOINT BILAT] Onset: 3 Chronic Other nutritional; endocrine; and metabolic disorders (1 source) Morbid (severe) obesity due to excess calories; Translations: [MORBID SEVERE OBES D/T EXCESS LORENA] Onset: 3 Chronic Other nutritional; endocrine; and metabolic disorders (1 source) Body mass index (BMI) 34.0-34.9, adult; Translations: [BODY MASS INDEX BMI 34.0-34.9 ADULT] Onset: 3 Chronic Residual codes; unclassified (1 source) Sleep apnea, unspecified; Translations: [SLEEP APNEA UNSPECIFIED] Onset: 3 Chronic Unclassified (1 source) Aneurysm of the ascending aorta, without rupture; Translations: [Aneurysm of the ascending aorta, without rupture] Onset: 3 Past or Other Problems Problem Classification Problem [...] Onset: 11-12-2022 Episodic Fluid and electrolyte disorders (3 sources) Dehydration; Translations: [Hypokalemia] Onset: 2022 Episodic Nausea and vomiting (1 source) Nausea; Translations: [NAUSEA] Onset: 2022 Episodic Noninfectious gastroenteritis (1 source) Noninfective gastroenteritis and colitis, unspecified; Translations: [NONINFECTIVE GE AND COLITIS UNS] Onset: 2022 Episodic Other aftercare (1 source) 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; Translations: [OT HALF-WAY CURRENT DRUG THERAPY] Onset: 2022 Episodic Other aftercare (1 source) 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) 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 of aspirin; Translations: [HALF-WAY CURRENT USE OF ASPIRIN] Onset: 2022 Episodic Phlebitis; thrombophlebitis and thromboembolism (1 source) Personal history of other venous thrombosis and embolism; Translations: [PERS HX OTH VENOUS THROMBOSIS AND EMBO] Onset: 2022 Episodic Pulmonary heart disease (1 source) Personal history of pulmonary embolism; Translations: [PERSONAL HISTORY PULMONARY EMBOLISM] Onset: 2022 Episodic Screening and history of mental health and substance abuse codes (1 source) Personal history of nicotine dependence; Translations: [PERSONAL HISTORY OF NICOTINE DEPEND] Onset: 2022 Episodic Unclassified (1 source) Aneurysm of the ascending aorta, without rupture; Translations: [Aneurysm of the ascending aorta, without rupture] Onset: 10-19-2023 Results Test Name Value Interpretation Reference Range Facility 36on 05-05-2024 [address] Knott s/p device check on 04/19/2024. [facility] Office Visiton 01-06-2024 Follow-up visit [id number] Calin Boyd Laura 1935 M Date Provider Department Center 01/06/2024 DOUG ROGERS CARD [facility] No family history on file Level of Service:58172 [place] OFFICE/OUTPATIENT ESTABLISHED MOD MDM 30 MIN [facility] Orders Onlyon 12-10-2023 Orders Only [id number] Calin Boyd Laura 1935 M [facility] Provider Department [place] 12/10/2023 SHIRIN ANDERSON CARD [facility] No family history on file [facility] 36on 12-08-2023 36 BP and weight seem l muna they are improving. Can we schedule for follow-up in clinic in 2-4 weeks. Thanks! [facility] 37on 12-03-2023 37 *Check blood pressur e 1-2 hours after medications. *Take lasix 40mg daily x3 days along with potassium. *Monitor daily weights. [facility] Office Visiton 12-03-2023 Follow-up visit [id number] Calin Boyd Laura 1935 M Date Provider Department Center 12/03/2023 DOUG ROGERS CARD [facility] No family history on file Level of Service:06041 [place] OFFICE/OUTPATIENT ESTABLISHED MOD MDM 30 MIN Reason for Visit and Comments: Hospital Follow-up [832] Congestive Heart Failure [127] Shortness of Breath [089778] [facility] Office Visiton 10-19-2023 Follow-up visit [id number] Calin Boyd 1935 M Date Provider Department Center 10/19/2023 SHASTA CROFT CARD [facility] No family history on file Level of Service:35633 [place] OFFICE/OUTPATIENT ESTABLISHED MOD MDM 30-39 MIN Normal [facility] CBC AUTO DIFFon 12-18-2022 BASO # 0.1 103/ul Normal 0.0-0.1 [facility] Comment on above: Performed By: #### C BC #### [facility] [address] [address] [address] Dana Angulo Basophils/100 WBC (Bld) 0.8 % Normal 0.2-2.0 [facility] Comment on above: Performed By: #### C BC #### [facility] [address] [address] [address] Dana Angulo EO # 0.1 103/ul Normal 0.0-0.7 [facility] Comment on above: Performed By: #### C BC #### [facility] [address] [place] [address] Dr. Dana Angulo Eosinophils/100 WBC (Bld) 0.9 % Normal 0.9-7.0 [facility] Comment on above: Performed By: #### C BC #### [facility] [address] [place] [address] Dr. Dana Angulo Erythrocyte distribution width (RBC) [Ratio] 13.2 % Normal 11.0-15.0 [facility] Comment on above: Performed By: #### C BC #### [facility] [address] [place] [address] Dr. Dana Angulo Hematocrit (Bld) [Volume fraction] 37.1 % Critically low 42.0-54.0 [facility] Comment on above: Performed By: #### C BC #### [facility] [address] [address] [address] Dana Angulo Hemoglobin (Bld) [Mass/Vol] 12.1 g/dL Critically low 14.0-18.0 [facility] Comment on above: Performed By: #### C BC #### [facility] [address] [address] [address] Dana Angulo IG # 0.03 10e3/ul Normal 0.00-0.03 [facility] Comment on above: Performed By: #### C BC #### [facility] [address] [place] [address] Dr. Dana Angulo IG % 0.4 % Normal 0.0-0.5 [facility] Comment on above: Performed By: #### C BC #### [facility] [address] [place] [address] Dr. Dana Angulo LYMPH # 1.4 103/ul Normal 1.2-3.8 [facility] Comment on above: Performed By: #### C BC #### [facility] [address] [place] [address] Dr. Dana Angulo Lymphocytes/100 WBC (Bld) 19.0 % Critically low 20.5-60.0 [facility] Comment on above: Performed By: #### C BC #### [facility] [address] [place] [address] Dr. Dana Angulo MANUAL DIFF REQ NO Normal [facility] Comment on above: Performed By: #### C BC #### [facility] [address] [place] [address] Dr. Dana Angulo MCH (RBC) [Entitic mass] 30.6 pg Normal 25.9-34.0 [facility] Comment on above: Performed By: #### C BC #### [facility] [address] [place] [address] Dr. Dana Angulo MCHC (RBC) [Mass/Vol] 32.6 g/dL Normal 29.9-35.2 [facility] Comment on above: Performed By: #### C BC #### [facility] [address] [place] [address] Dr. Dana Angulo MCV (RBC) [Entitic vol] 93.7 fL Normal 80.0-94.0 [facility] Comment on above: Performed By: #### C BC #### [facility] [address] [place] [address] Dr. Dana Angulo MONO # 0.5 103/ul Normal 0.3-0.8 [facility] Comment on above: Performed By: #### C BC #### [facility] [address] [place] [address] Dr. Dana Angulo Monocytes/100 WBC (Bld) 7.2 % Normal 1.7-12.0 [facility] Comment on above: Performed By: #### C BC #### [facility] [address] [place] [address] Dr. Dana Angulo NEUT # 5.4 103/ul Normal 1.4-6.5 [facility] Comment on above: Performed By: #### C BC #### [facility] [address] [place] [address] Dr. Dana Angulo Neutrophils/100 WBC (Bld) 71.7 % Normal 43.0-75.0 [facility] Comment on above: Performed By: #### C BC #### [facility] [address] [place] [address] Dr. Dana Angulo Platelet mean volume (Bld) [Entitic vol] 9.6 fL Normal 9.5-13.5 [facility] Comment on above: Performed By: #### C BC #### [facility] [address] [place] [address] Dr. Dana Angulo PLT 165 103/ul Normal 150-450 [facility] Comment on above: Performed By: #### C BC #### [facility] [address] [place] [address] Dr. Dana Angulo RBC 3.96 106/ul Critically low 4.70-6.10 [facility] Comment on above: Performed By: #### C BC #### [facility] [address] [place] [address] Dr. Dana Angulo WBC 7.5 103/ul Normal 4.0-11.0 [facility] Comment on above: Performed By: #### C BC #### [facility] [address] [place] [address] Dr. Dana Angulo ER URINE PROFILEon 3 Bilirubin Ql (U) Negative Normal NEGATIVE The [facility] Comment on above: Performed By: #### E RUR, UMICRO #### [facility] [address] [place] [address] Dr. Dana Angulo Clarity (U) CLEAR Normal CLEAR [facility] Comment on above: Performed By: #### Marino KENYON UMICRO #### [facility] [address] [place] [address] Dr. Dana Angulo Color (U) LT. YELLOW Normal YELLOW [facility] Comment on above: Performed By: #### E KOSTAS, UMICRO #### [facility] [address] [place] [address] Dr. Dana Angulo ERUKELSEAD A micrscopic examina tion will be performed if indicated. Normal [facility] Comment on above: Performed By: #### Marino KENYON UMICRO #### [facility] [address] [place] [address] Dr. Dana Angulo Glucose Ql (U) Negative Normal NEGATIVE [facility] Comment on above: Performed By: #### Marino KENYON UMICRO #### [facility] [address] [place] [address] Dr. Dana Angulo Hemoglobin Ql (U) Negative Normal NEGATIVE [facility] Comment on above: Performed By: #### Marino KENYON UMICRO #### [facility] [address] [place] [address] Dr. Dana Angulo Ketones Ql (U) Negative Normal NEGATIVE [facility] Comment on above: Performed By: #### Marino KENYON UMICRO #### [facility] [address] [place] [address] Dr. Dana Angulo LEUKOCYTES TRACE Abnormal NEGATIVE [facility] Comment on above: Performed By: #### Marino KENYON UMICRO #### [facility] [address] [place] [address] Dr. Dana Angulo Nitrite Ql (U) Negative Normal NEGATIVE [facility] Comment on above: Performed By: #### Marino KENYON UMICRO #### [facility] [address] [place] [address] Dr. Dana Angulo pH (U) 6.0 [pH] Normal 5-9 [facility] Comment on above: Performed By: #### Marino KENYON UMICRO #### [facility] [address] [place] [address] Dr. Dana Angulo SPEC GRAVITY 1.015 Normal 1.005-<=1.02 5 [facility] Comment on above: Performed By: #### HUMBERTO FRIEND #### [facility] [address] [place] [address] Dr. Dana Angulo UA PROTEIN Negative Normal NEGATIVE/ TRACE [facility] Comment on above: Performed By: #### ANGELINA FRIENDRO #### [facility] [address] [place] [address] Dr. Dana Angulo UR MICRO IND INDICATED Normal [facility] Comment on above: Performed By: #### HUMBERTO FRIEND #### [facility] [address] [place] [address] Dr. Dana Angulo Urobilinogen Qn (U) 0.2 {Delia'U}/dL Normal 0.2 - 1.0 [facility] Comment on above: Performed By: #### ANGELINA FRIENDRO #### [facility] [address] [place] [address] Dr. Dana Angulo LACTATE/LACTIC ACIDon 2022 Lactate [Moles/Vol] 1.1 mmol/L Normal 0.4-1.9 [facility] Comment on above: Performed By: #### L ACT #### [facility] [address] [place] [address] Dr. Dana Angulo LIPASEon 12-18-2022 Lipase [Catalytic activity/Vol] 68.0 U/L Critically low 73.0-393.0 [facility] Comment on above: Performed By: #### C BC #### [facility] [address] [place] [address] Dr. Dana Angulo OCC BLD IMMUNO SCREENon 11-30 OCCULT BLOOD Negative Normal NEGATIVE [facility] Comment on above: Performed By: #### H STROPN #### [facility] [address] [place] [address] Dr. Dana Angulo PROF 14(COMP METB)on 023 Albumin [Mass/Vol] 3.8 g/dL Normal 3.4-5.0 [facility] Comment on above: Performed By: #### C BC #### [facility] [address] [place] [address] Dr. Dana Angulo Albumin/Globulin [Mass ratio] 1.3 {ratio} Normal [facility] Comment on above: Performed By: #### C BC #### [facility] [address] [place] [address] Dr. Dana Angulo ALP [Catalytic activity/Vol] 70 U/L Normal 46-116 [facility] Comment on above: Performed By: #### C BC #### [facility] [address] [place] [address] Dr. Dana Angulo ALT [Catalytic activity/Vol] 22 U/L Normal 16-63 [facility] Comment on above: Performed By: #### C BC #### [facility] [address] [place] [address] Dr. Dana Angulo Anion gap [Moles/Vol] 13.5 mmol/L Normal [facility] Comment on above: Performed By: #### C BC #### [facility] [address] [place] [address] Dr. Dana Angulo AST [Catalytic activity/Vol] 25 U/L Normal 15-37 [facility] Comment on above: Performed By: #### C BC #### [facility] [address] [place] [address] Dr. Dana Angulo Bilirubin [Mass/Vol] 1.0 mg/dL Normal 0.2-1.0 [facility] Comment on above: Performed By: #### C BC #### [facility] [address] [place] [address] Dr. Dana Angulo Calcium [Mass/Vol] 9.7 mg/dL Normal 8.5-10.1 [facility] Comment on above: Performed By: #### C BC #### [facility] [address] [place] [address] Dr. Dana Angulo Chloride [Moles/Vol] 103 mmol/L Normal 98-107 [facility] Comment on above: Performed By: #### C BC #### [facility] [address] [address] [address] Dana Angulo CO2 [Moles/Vol] 25.1 mmol/L Normal 21.0-32.0 [facility] Comment on above: Performed By: #### C BC #### [facility] [address] [address] [address] Dana Angulo Creatinine [Mass/Vol] 1.07 mg/dL Normal 0.70-1.30 [facility] Comment on above: Performed By: #### C BC #### [facility] [address] [place] [address] Dr. Dana Angulo EGFR-AF BARBADIAN >60 Normal >=60 [facility] Comment on above: Performed By: #### C BC #### [facility] [address] [place] [address] Dr. Dana Angulo EGFR-NON AF [place] >60 Normal >=60 [facility] Comment on above: Performed By: #### C BC #### [facility] [address] [place] [address] Dr. Dana Angulo Globulin (S) [Mass/Vol] 3.0 g/dL Normal [facility] Comment on above: Performed By: #### C BC #### [facility] [address] [place] [address] Dr. Dana Angulo Glucose [Mass/Vol] 115 mg/dL Critically high 74-[address] [facility] Comment on above: Performed By: #### C BC #### [facility] [address] [place] [address] Dr. Dana Angulo Potassium [Moles/Vol] 3.6 mmol/L Normal 3.5-5.1 [facility] Comment on above: Performed By: #### C BC #### [facility] [address] [place] [address] Dr. Dana Angulo Protein [Mass/Vol] 6.8 g/dL Normal 6.4-8.2 [facility] Comment on above: Performed By: #### C BC #### [facility] [address] [place] [address] Dr. Dana Angulo Sodium [Moles/Vol] 138 mmol/L Normal 136-145 [facility] Comment on above: Performed By: #### C BC #### [facility] [address] [address] [address] Dana Angulo Urea nitrogen [Mass/Vol] 39.0 mg/dL Critically high 7.0-18.0 [facility] Comment on above: Performed By: #### C BC #### [facility] [address] [place] [address] Dr. Dana Angulo Urea nitrogen/Creatinin e [Mass ratio] 36.4 mg/mg Normal [facility] Comment on above: Performed By: #### C BC #### [facility] [address] [place] [address] Dr. Dana Angulo PROTIMEon 12-18-2022 INR Coag (PPP) [Relative time] 2.15 {INR} Normal [facility] Comment on above: Performed By: #### P T, PTT #### [facility] [address] [place] [address] Dr. Dana Angulo INR GUIDELINES SEE BELOW Normal [facility] Comment on above: Result Comment: BETTINA RED INR: 2.0 - 3.0 CONDITIONS NOT LISTED BELOW 2.5 - 3.5 FOR PROSTHETIC HEART VALVE REPLACEMENT 2.5 - 3.5 RECURRENT THROMBOSIS Performed By: #### P T, PTT #### [facility] [address] [place] [address] Dr. Dana Angulo PT Coag (PPP) [Time] 21.8 s Critically high 9.0-11.6 [facility] Comment on above: Performed By: #### P T, PTT #### [facility] [address] [place] [address] Dr. Dana Angulo PTTon 12-18-2022 aPTT Coag (Bld) [Time] 35.3 s Normal 22.3-36.2 [facility] Comment on above: Performed By: #### P T, PTT #### [facility] [address] [place] [address] Dr. Dana Angulo TROPONIN, HIGH SENSITIVITYon 12-18-2022 HSTROP 37.2 pg/mL Normal 4.0-76.1 [facility] Comment on above: Result Comment: CUT- OFF POINTS HAVE BEEN ESTABLISHED BASED ON THE FOURTH UNIVERSAL DEFINITIONS OF MYOCARDIAL INFARCTION. THE UPPER REFERENCE LIMIT (URL) OF TROPONIN, DEFINED THE 99TH PERCENTILE OF cTnI DISTRIBUTION IN A REFERENCE POPULATION, HAS BEEN CONFIRMED THE DECISION THRESHOLD FOR AR DIAGNOSIS. Performed By: #### H STROPN #### [facility] [address] [place] [address] Dr. Dana Angulo HSTROP 39.8 pg/mL Normal 4.0-76.1 [facility] Comment on above: Result Comment: CUT- OFF POINTS HAVE BEEN ESTABLISHED BASED ON THE FOURTH UNIVERSAL DEFINITIONS OF MYOCARDIAL INFARCTION. THE UPPER REFERENCE LIMIT (URL) OF TROPONIN, DEFINED THE 99TH PERCENTILE OF cTnI DISTRIBUTION IN A REFERENCE POPULATION, HAS BEEN CONFIRMED THE DECISION THRESHOLD FOR AR DIAGNOSIS. Performed By: #### H ASHISH #### [facility] [address] [place] [address] Dr. Dana Angulo URINE MICROSCOPIC ONLYon BACTERIA NONE SEEN Normal NONE SEEN [facility] Comment on above: Performed By: #### Marino KENYON UMICRO #### [facility] [address] [place] [address] Dr. Dana Angulo Bacteria identified Cx Nom (U) NOT INDICATED Normal [facility] Comment on above: Performed By: #### Marino KENYON UMICRO #### [facility] [address] [place] [address] Dr. Dana Angulo CAST NONE SEEN Normal NONE SEEN [facility] Comment on above: Performed By: #### E RUR, UMICRO #### [facility] [address] [place] [address] Dr. Dana Angulo Crystals LM Nom (Urine sed) NONE SEEN Normal NONE SEEN [facility] Comment on above: Performed By: #### E RUR, UMICRO #### [facility] [address] [place] [address] Dr. Dana Angulo Epithelial cells LM Ql (Urine sed) FEW Abnormal NONE SEEN /RARE [facility] Comment on above: Performed By: #### E RUR UMICRO #### [facility] [address] [place], [place] [address] Dr. Dana Angulo MUCOUS NONE SEEN Normal NONE SEEN [facility] Comment on above: Performed By: #### E RUR, UMICRO #### [facility] [address], [place] [address] Dr. Dana Angulo RBC NONE SEEN Abnormal 0-2 [facility] Comment on above: Performed By: #### E RUR, UMICRO #### [facility] [address], [place] [address] Dr. Dana Angulo WBC 2-5 Abnormal NONE SEEN [facility] Comment on above: Performed By: #### E KOSTAS UMICRO #### [facility] [address], [place] [address] Dr. Dana Angulo US SINGLE QUAD RT [...] DOMINIQUE JAUREGUI Date: 2022-12-18 13:05 Normal [facility] BNPon 11-11-2022 Natriuretic peptide B (Bld) [Mass/Vol] 2364.0 pg/mL Critically high <=1,800.0 [facility] Comment on above: Performed By: #### H STROPN #### [facility] [address] [place] [address] Dr. Dana Angulo BUNon 11-11-2022 Urea nitrogen [Mass/Vol] 18.0 mg/dL Normal 7.0-18.0 [facility] Comment on above: Performed By: #### H STROPN #### [facility] [address] [place] [address] Dr. Dana Angulo CBC AUTO DIFFon 11-11-2022 BASO # 0.0 103/ul Normal 0.0-0.1 [facility] Comment on above: Performed By: #### C BC #### [facility] [address] [place] [address] Dr. Dana Angulo Basophils/100 WBC (Bld) 0.6 % Normal 0.2-2.0 [facility] Comment on above: Performed By: #### C BC #### [facility] [address] [place] [address] Dr. Dana Angulo EO # 0.1 103/ul Normal 0.0-0.7 [facility] Comment on above: Performed By: #### C BC #### [facility] [address] [place] [address] Dr. Dana Angulo Eosinophils/100 WBC (Bld) 1.3 % Normal 0.9-7.0 [facility] Comment on above: Performed By: #### C BC #### [facility] [address] [place] [address] Dr. Dana Angulo Erythrocyte distribution width (RBC) [Ratio] 13.9 % Normal 11.0-15.0 [facility] Comment on above: Performed By: #### C BC #### [facility] [address] [place] [address] Dr. Dana Angulo Hematocrit (Bld) [Volume fraction] 36.2 % Critically low 42.0-54.0 [facility] Comment on above: Performed By: #### C BC #### [facility] [address] [place] [address] [address] Dana Angulo Hemoglobin (Bld) [Mass/Vol] 11.4 g/dL Critically low 14.0-18.0 [facility] Comment on above: Performed By: #### C BC #### [facility] [address] [address] [address] Dana Angulo IG # 0.02 10e3/ul Normal 0.00-0.03 [facility] Comment on above: Performed By: #### C BC #### [facility] [address] [place] [address] Dr. Dana Angulo IG % 0.3 % Normal 0.0-0.5 [facility] Comment on above: Performed By: #### C BC #### [facility] [address] [place] [address] Dr. Dana Angulo LYMPH # 1.4 103/ul Normal 1.2-3.8 [facility] Comment on above: Performed By: #### C BC #### [facility] [address] [place] [address] Dr. Dana Angulo Lymphocytes/100 WBC (Bld) 19.8 % Critically low 20.5-60.0 [facility] Comment on above: Performed By: #### C BC #### [facility] [address] [place] [address] Dr. Dana Angulo MANUAL DIFF REQ NO Normal [facility] Comment on above: Performed By: #### C BC #### [facility] [address] [place] [address] Dr. Dana Angulo MCH (RBC) [Entitic mass] 30.9 pg Normal 25.9-34.0 [facility] Comment on above: Performed By: #### C BC #### [facility] [address] [place] [address] Dr. Dana Angulo MCHC (RBC) [Mass/Vol] 31.5 g/dL Normal 29.9-35.2 [facility] Comment on above: Performed By: #### C BC #### [facility] [address] [place] [address] [address] Dana Angulo MCV (RBC) [Entitic vol] 98.1 fL Critically high 80.0-94.0 [facility] Comment on above: Performed By: #### C BC #### [facility] [address] [place] [address] Dr. Dana Angulo MONO # 0.5 103/ul Normal 0.3-0.8 [facility] Comment on above: Performed By: #### C BC #### [facility] [address] [place] [address] Dr. Dana Angulo Monocytes/100 WBC (Bld) 6.9 % Normal 1.7-12.0 [facility] Comment on above: Performed By: #### C BC #### [facility] [address] [place] [address] Dr. Dana Angulo NEUT # 5.1 103/ul Normal 1.4-6.5 [facility] Comment on above: Performed By: #### C BC #### [facility] [address] [place] [address] Dr. Dana Angulo Neutrophils/100 WBC (Bld) 71.1 % Normal 43.0-75.0 [facility] Comment on above: Performed By: #### C BC #### [facility] [address] [place] [address] Dr. Dana Angulo Platelet mean volume (Bld) [Entitic vol] 9.4 fL Critically low 9.5-13.5 [facility] Comment on above: Performed By: #### C BC #### [facility] [address] [place] [address] Dr. Dana Angulo PLT 164 103/ul Normal 150-450 [facility] Comment on above: Performed By: #### C BC #### [facility] [address] [place], [place] [id number] Dr. Dana Angulo RBC 3.69 106/ul Critically low 4.70-6.10 [facility] Comment on above: Performed By: #### C BC #### [facility] [address] [place] [address] Dr. Dana Angulo WBC 7.1 103/ul Normal 4.0-11.0 [facility] Comment on above: Performed By: #### C BC #### [facility] [address] [place] [address] Dr. Dana Angulo CREATININEon 11-11-2022 Creatinine [Mass/Vol] 1.10 mg/dL Normal 0.70-1.30 [facility] Comment on above: Performed By: #### H STROPN #### [facility] [address] [place] [address] Dr. Dana Angulo EGFR-AF BARBADIAN >60 Normal >=[address] [facility] Comment on above: Result Comment: Prev iously reported as: >77 On 11/11/2022 10:45 By BL3 Previously reported as: (blank) On 11/11/2022 10:44 By BL3 Performed By: #### H STROPN #### [facility] [address] [place] [address] Dr. Dana Angulo EGFR-NON AF BARBADIAN >60 Normal >=60 [facility] Comment on above: Result Comment: Prev iously reported as: >64 On 11/11/2022 10:45 By BL3 Previously reported as: (blank) On 11/11/2022 10:44 By BL3 Performed By: #### H STROPN #### [facility] [address] [place] [address] Dr. Dana Angulo CULTURE URINEon 11-11-2022 CULTURE URINE Culture Observations : NO GROWTH. Normal [facility] Comment on above: Performed By: #### C BC #### [facility] [address] [place] [address] Dr. Dana Angulo ELECTROLYTESon 11-11-2022 Anion gap [Moles/Vol] 12.7 mmol/L Normal [facility] Comment on above: Performed By: #### H STROPN #### [facility] [address] [place] [address] Dr. Dana Angulo Chloride [Moles/Vol] 103 mmol/L Normal 98-107 [facility] Comment on above: Performed By: #### H STROPN #### [facility] [address] [place] [address] [address] Dana Angulo CO2 [Moles/Vol] 29.0 mmol/L Normal 21.0-32.0 [facility] Comment on above: Performed By: #### H STROPN #### [facility] [address] [place] [address] [address] Dana Angulo Potassium [Moles/Vol] 4.7 mmol/L Normal 3.5-5.1 [facility] Comment on above: Performed By: #### H STROPN #### [facility] [address] [place] [address] [address] Dana Angulo Sodium [Moles/Vol] 140 mmol/L Normal 136-145 [facility] Comment on above: Performed By: #### H STROPN #### [facility] [address] [place] [address] [address] Dana Angulo GLYCOHEMOGLOBIN A1Con 2021 ADA RECOMMENDATION SEE BELOW Normal [facility] Comment on above: Result Comment: ADA RECOMMENDED LIMIT 4.0 - 6.0 ADA THERAPEUTIC TARGET < 7.0 ACTION SUGGESTED > 7.0 Performed By: #### H STROPN #### [facility] [address] [place] [address] [address] Dana Angulo Glucose [Mass/Vol] 120 mg/dL Normal [facility] Comment on above: Performed By: #### H STROPN #### [facility] [address] [place] [address] [address] Dana Angulo HbA1c (Bld) [Mass fraction] 5.8 % Normal 4.5-6.2 [facility] Comment on above: Performed By: #### H STROPN #### [facility] [address] [place] [address] [address] Dana Angulo LIPID PROFILEon 11-11-2022 CHOL-HDL RATIO NORM SEE BELOW Normal [facility] Comment on above: Result Comment: 3.3 - 4.4 LOW RISK 4.4 - 7.1 AVERAGE RISK 7.1 - 11.0 MODERATE RISK >11.0 HIGH RISK Performed By: #### H STROPN #### [facility] [address] [address] [address] Dana Angulo Cholesterol [Mass/Vol] 91 mg/dL Normal <=200 [facility] Comment on above: Performed By: #### H STROPN #### [facility] [address] [place] [address] [address] Dana Angulo Cholesterol in HDL [Mass/Vol] 49 mg/dL Normal 40-60 [facility] Comment on above: Performed By: #### H STROPN #### [facility] [address] [place] [address] [address] Dana Angulo Cholesterol in LDL [Mass/Vol] 29.4 mg/dL Normal [facility] Comment on above: Performed By: #### H STROPN #### [facility] [address] [place] [address] [address] Dana Angulo Cholesterol.total/ Cholesterol in HDL [Mass ratio] 1.9 {ratio} Normal [facility] Comment on above: Performed By: #### H STROPN #### [facility] [address] [place] [address] [address] Dana Angulo HDL NORMAL > or = 60 mg/dl - LO W CARDIOVASCULAR RISK <40 mg/dl - HIGH CARDIOVASCULAR RISK Normal [facility] Comment on above: Performed By: #### H STROPN #### [facility] [address] [place] [address] [address] Dana Angulo LDL CALC NORMAL SEE BELOW Normal [facility] Comment on above: Result Comment: <100 mg/dl OPTIMAL 100 - 129 mg/dl NEAR OR ABOVE OPTIMAL 130 - 159 mg/dl BORDERLINE HIGH 160 - 189 mg/dl HIGH >190 mg/dl VERY HIGH Performed By: #### H STROPN #### [facility] [address] [place] [address] [address] Dana Angulo Triglyceride [Mass/Vol] 63 mg/dL Normal <=150 [facility] Comment on above: Performed By: #### H STROPN #### [facility] [address] [place] [address] [address] Dana Angulo VLDL CALC 12.6 mg/dL Normal [facility] Comment on above: Performed By: #### H STROPN #### [facility] [address] [place] [address] Dr. Dana Angulo LIVER PROFILEon 11-11-2022 Albumin [Mass/Vol] 3.7 g/dL Normal 3.4-5.0 [facility] Comment on above: Performed By: #### H STROPN #### [facility] [address] [place] [address] Dr. Dana Angulo Albumin/Globulin [Mass ratio] 1.2 {ratio} Normal [facility] Comment on above: Performed By: #### H STROPN #### [facility] [address] [place] [address] Dr. Dana Angulo ALP [Catalytic activity/Vol] 68 U/L Normal 46-116 [facility] Comment on above: Performed By: #### H STROPN #### [facility] [address] [place] [address] Dr. Dana Angulo ALT [Catalytic activity/Vol] 20 U/L Normal 16-63 [facility] Comment on above: Performed By: #### H STROPN #### [facility] [address] [place] [address] Dr. Dana Angulo AST [Catalytic activity/Vol] 21 U/L Normal 15-37 [facility] Comment on above: Performed By: #### H STROPN #### [facility] [address] [place] [address] Dr. Dana Angulo BILI, CONJUGATED 0.3 mg/dL Critically high 0.0-0.2 [facility] Comment on above: Performed By: #### H STROPN #### [facility] [address] [place] [address] Dr. Dana Angulo Bilirubin [Mass/Vol] 0.9 mg/dL Normal 0.2-1.0 [facility] Comment on above: Performed By: #### H STROPN #### [facility] [address] [place] [address] Dr. Dana Angulo Globulin (S) [Mass/Vol] 3.1 g/dL Normal [facility] Comment on above: Performed By: #### H STROPN #### [facility] [address] [place] [address] [address] Dana nAgulo Protein [Mass/Vol] 6.8 g/dL Normal 6.4-8.2 [facility] Comment on above: Performed By: #### H STROPN #### [facility] [address] [place] [address] Dr. Dana Angulo TSHon 11-11-2022 TSH 3.426 uIU/mL Normal 0.358-3.740 [facility] Comment on above: Performed By: #### H STROPN #### [facility] [address] [place] [address] Dr. Dana Angulo UA (CLEAN/CATCH) SILVER CHASER/MICRO I F IND.on 11-11-2022 Bilirubin Ql (U) Negative Normal NEGATIVE [facility] Comment on above: Performed By: #### U ACSIND, ICRO #### [facility] [address] [place] [address] Dr. Dana Angulo Clarity (U) CLEAR Normal CLEAR [facility] Comment on above: Performed By: #### U ACSIND, ICRO #### [facility] [address] [place] [address] Dr. Dana Angulo Color (U) YELLOW Normal YELLOW [facility] Comment on above: Performed By: #### U ACSIND, UMICRO #### [facility] [address] [place] [address] Dr. Dana Angulo Glucose Ql (U) Negative Normal NEGATIVE [facility] Comment on above: Performed By: #### U ACSIND, UMICRO #### [facility] [address] [place] [address] Dr. Dana Angulo Hemoglobin Ql (U) Negative Normal NEGATIVE [facility] Comment on above: Performed By: #### U ACSIND, UMICRO #### [facility] [address] [place] [address] Dr. Dana Angulo Ketones Ql (U) TRACE Abnormal NEGATIVE [facility] Comment on above: Performed By: #### U ACSIND, UMICRO #### [facility] [address] [address] [address] Dana Angulo LEUKOCYTES SMALL Abnormal NEGATIVE [facility] Comment on above: Performed By: #### U ACSIND, UMICRO #### [facility] [address] [place] [address] Dr. Dana Angulo Nitrite Ql (U) Negative Normal NEGATIVE [facility] Comment on above: Performed By: #### U ACSIND, UMICRO #### [facility] [address] [place] [address] Dr. Dana Angulo pH (U) 6.0 [pH] Normal 5-9 [facility] Comment on above: Performed By: #### U ACSREGGIE UMICRO #### [facility] [address] [place] [address] Dr. Dana Angulo SPEC GRAVITY 1.015 Normal 1.005-<=1.02 5 [facility] Comment on above: Performed By: #### U ACSREGGIE UMICRO #### [facility] [address] [place] [address] Dr. Dana Angulo UA PROTEIN TRACE Normal NEGATIVE/ TRACE [facility] Comment on above: Performed By: #### U ACSREGGIE UMICRO #### [facility] [address] [place] [address] Dr. Dana Angulo UR MICRO IND INDICATED Normal [facility] Comment on above: Performed By: #### U ACSREGGIE, UMICRO #### [facility] [address] [place] [address] Dr. Dana Angulo Urobilinogen Qn (U) 1.0 {Delia'U}/dL Normal 0.2 - 1.0 [facility] Comment on above: Performed By: #### U ACSIND, UMICRO #### [facility] [address] [place] [address] Dr. Dana Angulo URINE MICROSCOPIC ONLYon BACTERIA TRACE Abnormal NONE SEEN [facility] Comment on above: Performed By: #### U ACSIND, UMICRO #### [facility] [address] [place] [address] Dr. Dana Angulo Bacteria identified Cx Nom (U) INDICATED Normal [facility] Comment on above: Performed By: #### U ACSIND, UMICRO #### [facility] [address] [place] [address] [address] Dana Angulo CAST SEEN Abnormal NONE SEEN [facility] Comment on above: Performed By: #### U ACSIND, UMICRO #### [facility] [address] [place] [address] [address] Dana Angulo Crystals LM Nom (Urine sed) NONE SEEN Normal NONE SEEN [facility] Comment on above: Performed By: #### U ACSIND, UMICRO #### [facility] [address] [place] [address] [address] Dana Angulo Epithelial cells LM Ql (Urine sed) RARE Normal NONE SEEN /RARE [facility] Comment on above: Performed By: #### U ACSIND, UMICRO #### [facility] [address] [place] [address] Dr. Dana Angulo MUCOUS NONE SEEN Normal NONE SEEN [facility] Comment on above: Performed By: #### U ACSIND, ICRO #### [facility] [address] [place] [address] Dr. Dana Angulo RBC 2-5 Abnormal 0-2 [facility] Comment on above: Performed By: #### U ACSIND, UMICRO #### [facility] [address] [place] [address] Dr. Dana Angulo WBC 2-5 Abnormal NONE SEEN [facility] Comment on above: Performed By: #### U ACSIND, UMICRO #### [facility] [address] [place] [address] Dr. Dana Angulo VITAMIN D 25 OHon 11-11-2022 VIT D 25-OH 30.2 ng/mL Normal [facility] Comment on above: Performed By: #### C BC #### [facility] [address] [place] [address] Dr. Dana Angulo VIT D RANGES SEE BELOW Normal [facility] Comment on above: Result Comment: <20 ng/mL Vit D deficient 20 - <30 ng/mL Vit D insufficient 30 - 100 ng/mL Vit D sufficient >100 ng/mL Potential Toxicity Performed By: #### C #### [facility] [address], [place] [address] Dr. Dana Angulo Cardiovascular Lab Reporton 06-25-2019 Cardiovascular Lab Report [facility] MR #: [id number] Department of Physician: Geetha Blankenship M.D. Division of Service Date: 06/24/2019 Cardiology Birthdate: 1935 Adult Cardiovascular Room #: [facility] [address] [facility]. [place] [address] Cardiovascular Laboratory Report FINAL IMPRESSION: 1. Normal right and left ventricular filling pressures. 2. Preserved cardiac output and cardiac index. 3. Mild pulmonary artery hypertension. INDICATIONS: The patient is an 83-year-old male, who has heart failure, status post JACKAROO. He has been experiencing shortness of breath [...] modified Seldinger technique and ultrasound guidance, a 5-[place] Islander micropuncture was placed in right internal jugular vein. This was upsized to a regular 6-[place] Islander pinnacle sheath and a 6-[place] Islander Jackson was used for right heart catheterization. [...] Rashard/Perlita Lucas M.D. Date Trans: 06/25/2019 05:12 Rashard/deniz [id number] cc: Rio Lal D.O. [facility] [place] [address] Normal The [facility] Neurosurgery Office/Clinic N saul 04-13-2018 Neurosurgery Office/Clinic [...] narrowing.Electronically signed by O isacc CAMACHO, Arsalan Brayden 04/13/18 15:39 EDT Normal [facility] CT Spine Lumbar w/ Contrasto n [...] Further degenerative changes are detailed above.Radiation Dose Estimate:CTDI(mGy):0.54530 0 / / / kVp:120.636817 / mAs:0.775871 / / / DLP(mGy-cm):5.138979Sefk Part:CTDI(mGy):28.379311 / / / kVp:120.790661 / mAs:294.711954 / / / DLP(mGy-cm):632.138209Wdqg Part: Final Dictated by: Naldo Aguilar MD MDictated DT/TM: 04.06.2018 11:34 amSigned by: Naldo Aguilar MD MSigned (Electronic Signature): 04.06.2018 3:49 pmTranscribed DT/TM: 04.06.2018 1:29 pm(If Report Is Signed, Electronically Signed in Other Vendor System) Normal [facility] Inpatient Clinical Summaryon 04-06-2018 Inpatient Clinical Summary [place] [id number] [address]Xtsthxaj SummaryPerson InformationName: Alvin Boyd Age: 82 Years : 1935Sex: Male [facility]CP[facility] Rio Lal [facility] Rehabilitationital Status: PCP: [id number]:White Ethnicity:Not or Language:EnglishMRN: [id number] Visit Id: Reason:stenosis, bilateral leg pain Speciality: Acuity:Enc Type: Outpatient in a Bed Med Service: Radiology-Diagnostic ImagingArrival:04/06/2018 08:16:35 Discharge: Dispo Type:Address:[address] [place] [id number]:Discharged To:Home Treatments:Devices/Equipme nt:Professional Skilled Services:Special Services and [...] Assoc 04/14/2018 14:30:00 04/14/2018 15:00:00 Confirmed Normal [facility] PTon 04-06-2018 INR Coag RelTime (PPP) 1.1 {INR} Normal <=3.5 [facility] Comment on above: Result Comment: INR has no normal range. INR Therapeutic range is:2.0-3.0 (AF, CVA, TIAs, DVT prophylaxis, acute DVT)2.5-3.5 ([facility] heart valves, recurrent thrombosis/emboli) Performed By: #### P TINR ####[address] [address] Prothrombin time (PT) Coag time (PPP) 11.3 s Normal 9.1-11.9 [facility] Comment on above: Performed By: #### P TINR ####[address] [address] PTTon 04-06-2018 aPTT 24.0 s Normal 21.0-28.8 [facility] Comment on above: Performed By: #### P TT ####[address] [address] Platelet Counton 04-06-2018 Platelets 135 x10*3/mcL Low 150-350 [facility] Comment on above: Performed By: #### P LTS ####[address] [address] XR Myelography Lumbosacral S pineon 04-06-2018 XR [...] myelogram. 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 Upon completion [...] canal stenosisElectronically signed by F JOE Dragan Vicente 03/29/18 12:41 EDT Normal [facility] Pain Management Office/Clini c Noteon 03-16-2018 [...] Injections: 11-09-17 Date Surgery: n/a Frequency PT: [id number] Effective PT: not much help Effective Injections: [...] by Myrna Reyes CNP 03/16/18 13:37 EDT Normal [facility] Pain Management Office/Clini c Noteon 02-19-2018 [...] Injections: 11-09-17 Date Surgery: n/a Frequency PT: [id number] Effective PT: not much help Effective Injections: [...] No qualifying data available.Electronically signed by A Myrna infante CNP 02/19/18 12:56 EDT Normal [facility] History and Physicalon 01-13 History and [...] Johnathan Guzman MD 01/13/18 15:09 EST Normal [facility] Pain Management Procedure No glenn 01-13-2018 [...] of a responsible adult.Electronically signed by B Johnathan smallwood MD 01/13/18 15:09 EST Normal [facility] Ambulatory Patient Education on 01-06-2018 Ambulatory Patient Education Patient Education MaterialsName: BoydAlvin Current Date: 01/06/2018 15:32:58 [place] 1935 following sheet(s) are the Patient Education Leaflets for Alvin Boyd InjectionNerve Block injections are used in the [...] the next day. You must have a charter and tour bus driver that will wait in the Pain [...] procedure: Please arrive at: Please check in at:[place] Desk in the Pain Management [id number] [facility] [address], [address]rd floor [facility] OHReception Desk inside the Emergency Room at [address]*Due to the sedation given for the procedure, you will not be permitted to drive until the following day. For this reason, you will need to bring a charter and tour bus driver to stay with you and drive [...] Hibiclens (a medicated soap) prior to your surgery.*[place] teeth, rinse with water, but do not swallow.*Please wear comfortable clothing, without metal zippers or snaps. Do not wear contact lenses. Do wear your hearing aid. Please leave all jewelry and valuables at home; you may wear your wedding ring.*Please note that due to limited space, your family member/charter and tour bus driver will need to wait in the waiting area while you are in the procedure area. Absolutely no children should attend an appointment for an injection.*All prescription refills must be requested in advance. No prescription refills requested on the day of a procedure will be available until at least 3 business days later.*If your procedure is done in [place], you will be receiving a statement from [facility] for the professional (physician's) billing fees and for the technical (hospital's) fees and a separate statement for the anesthesia provider. If your procedure is done in [place], you will be receiving a statement from [facility] for professional (physician's) billing fees, technical [...] questions or concerns, please contact the appropriate office:[facility] ([place] office) [phone] ([place] office) [phone] follow up appointment is scheduled for:AT:[facility] [address] [facility], 3rd floor [facility], [facility] [address] [facility], [address], [address], 2nd floor clinic, [address]?WHAT TO EXPECT AFTER THE PROCEDURE:Please [...] increase pain. (for example, bending, twisting, walking, tape cutting machine operator).Try to avoid pain medication or sleeping [...] call the office immediately if noted.Contact stimulator dealer compliance representative with questions regarding stimulator use.(see rep [...] and call office immediately if noted.Contact stimulator dealer compliance representative with questions regarding stimulator use.(see rep [...] drainage and call immediately if noted.Contact stimulator dealer compliance representative with questions regarding stimulator use.(see rep card) Normal [facility] Office/Clini c Noteon 01-06-2018 [...] PT: 01/16 Date Injections: 11-09-17 Frequency PT: [id number] Effective PT: not much help Effective Injections: [...] Myrna Reyes CNP 01/06/18 15:15 EST Normal [facility] Office/Clini c Noteon 11-09-2017 [...] Johnathan smallwood MD 11/09/17 09:27 EST Normal [facility] Procedure Noteon 11-09-2017 Procedure Note PROCEDURE: [...] Johnathan Guzman MD 11/09/17 09:36 EST Normal [facility] Ambulatory Patient Education on 10-14-2017 Ambulatory [...] procedure: Please arrive at: Please check in at:[facility]er Desk in the Pain Management [id number] [place] [address], 3rd floor [facility] at [address]*Due to the sedation given for the procedure, you will not be permitted to drive until the following day. For this reason, you will need to bring a charter and tour bus driver to stay with you and drive [...] Hibiclens (a medicated soap) prior to your surgery.*[place] teeth, rinse with water, but do not swallow.*Please wear comfortable clothing, without metal zippers or snaps. Do not wear contact lenses. Do wear your hearing aid. Please leave all jewelry and valuables at home; you may wear your wedding ring.*Please note that due to limited space, your family member/charter and tour bus driver will need to wait in the waiting area while you are in the procedure area. Absolutely no children should attend an appointment for an injection.*All prescription refills must be requested in advance. No prescription refills requested on the day of a procedure will be available until at least 3 business days later.*If your procedure is done in [place], you will be receiving a statement from [facility] for the professional (physician's) billing fees and for the technical (hospital's) fees and a separate statement for the anesthesia provider. If your procedure is done in [place], you will be receiving a statement from [facility] for professional (physician's) billing fees, technical [...] questions or concerns, please contact the appropriate office:[facility] ([place] office) [phone] ([place] office) [phone] follow up appointment is scheduled for:AT:[facility] [address] [facility], 3rd floor [facility], [facility] [address] [facility], [address], [facility] [address] [facility], 2nd floor clinic, [facility] [address] [facility]?WHAT TO EXPECT AFTER THE PROCEDURE:Please note the [...] increase pain. (for example, bending, twisting, walking, tape cutting machine operator).Try to avoid pain medication or sleeping [...] call the office immediately if noted.Contact stimulator dealer compliance representative with questions regarding stimulator use.(see rep [...] and call office immediately if noted.Contact stimulator dealer compliance representative with questions regarding stimulator use.(see rep [...] drainage and call immediately if noted.Contact stimulator dealer compliance representative with questions regarding stimulator use.(see rep card)Nerve Root InjectionThe nerve root injection is a procedure where a local anesthetic and steroid solution are administered near the nerve as it exits the spinal canal. This is done under fluoroscopy (watching under live x-ray) to deliver the drug to the precise location.Am I a candidate for a nerve root injection?At [facility], the provider examining [...] procedure. You are required to have a charter and tour bus driver remain in the facility before and [...] home the morning of the procedure. Normal [facility] Office/Clini c Noteon 10-14-2017 [...] Chiropractor: 11/2016 Date PT: 01/16 Frequency PT: [id number] Effective PT: not much help Comments TENS: [...] No qualifying data available.Electronically signed by A Myrna infante CNP 10/14/17 11:44 EST Normal [facility] History and Physicalon 09-09 History and [...] Johnathan Guzman MD 09/09/17 11:17 EDT Normal [facility] Comment on above: Order Comment: This [...] Johnathan smallwood MD 09/09/17 11:20 EDT Normal [facility] Procedure Noteon 09-09-2017 Procedure Note PROCEDURE: [...] treatment plan.Electronically signed by Johnathan Guzman MD 09/09/17 11:21 EDT Normal [facility] History and Physicalon 08-26 History and [...] cl CAMACHO, Johnathan 08/26/17 14:38 EDT Normal [facility] History and Physical History of Present [...] available.Electronically signed by B Johnathan smallwood MD 08/26/17 15:42 EDT Normal [facility] Procedure Noteon 08-26-2017 Procedure Note PROCEDURE: [...] cl CAMACHO, Johnathan 08/26/17 15:42 EDT Normal [facility] Ambulatory Patient Education on 07-29-2017 Ambulatory Patient Education Patient Education MaterialsName: EugeneAlvin Current Date: 07/29/2017 14:05:41 [place] 1935 following sheet(s) are the Patient Education Leaflets for Alvin Boyd Name:You are scheduled for a:*Please allow up to 2 hours for your appointment. Late arrivals may result in delay or postponement of procedure.Date/Time of procedure: Please arrive at: Date/Time of procedure: Please arrive at: Please check in at:Calker Desk in the Pain Management [id number] [place] [address], 3rd floor [facility] inside the Emergency Room at [address]*Due to the sedation given for the procedure, you will not be permitted to drive until the following day. For this reason, you will need to bring a charter and tour bus driver to stay with you and drive [...] Hibiclens (a medicated soap) prior to your surgery.*[place] teeth, rinse with water, but do not swallow.*Please wear comfortable clothing, without metal zippers or snaps. Do not wear contact lenses. Do wear your hearing aid. Please leave all jewelry and valuables at home; you may wear your wedding ring.*Please note that due to limited space, your family member/charter and tour bus driver will need to wait in the waiting area while you are in the procedure area. Absolutely no children should attend an appointment for an injection.*All prescription refills must be requested in advance. No prescription refills requested on the day of a procedure will be available until at least 3 business days later.*If your procedure is done in [place], you will be receiving a statement from [facility] for the professional (physician's) billing fees and for the technical (hospital's) fees and a separate statement for the anesthesia provider. If your procedure is done in [place], you will be receiving a statement from [facility] for professional (physician's) billing fees, technical [...] questions or concerns, please contact the appropriate office:[facility] ([place] office) [phone] [facility] ([place] office) [phone] follow up appointment is scheduled for:AT:[facility] [employer] [facility], 3rd floor [facility], [facility] [address] [facility], [address], [facility] [address], 2nd floor clinic, [address]?WHAT TO EXPECT AFTER THE PROCEDURE:Please [...] increase pain. (for example, bending, twisting, walking, tape cutting machine operator).Try to avoid pain medication or sleeping [...] call the office immediately if noted.Contact stimulator dealer compliance representative with questions regarding stimulator use.(see rep [...] and call office immediately if noted.Contact stimulator dealer compliance representative with questions regarding stimulator use.(see rep [...] drainage and call immediately if noted.Contact stimulator dealer compliance representative with questions regarding stimulator use.(see rep [...] sedation. You are required to have a charter and tour bus driver remain in the facility before and during the procedure, then drive you home following the procedure.What should I expect after the procedure?You are required to have a charter and tour bus driver remain in the waiting room of [facility] during the procedure and drive you [...] physician regarding your other diabetic medications. Normal [facility] Office/Clini c Noteon 07-29-2017 [...] Chiropractor: 11/2016 Date PT: 01/16 Frequency PT: [id number] Effective PT: not much help Comments TENS: [...] available.Electronically signed by Rashard infante CNP Myrna Gardnere 07/29/17 13:55 EDT Normal [facility] History and Physicalon 06-29 History and [...] data available.Electronically signed by Johnathan Guzman MD 06/29/17 13:18 EDT Normal [facility] Procedure Noteon 06-29-2017 Procedure Note PROCEDURE: [...] The patient was turned back onto the [facility] and taken to recovery in stable condition to be discharged per criteria.Electronically signed by Johnathan Guzman MD 06/29/17 14:34 EDT Normal [facility] History and Physicalon 06-15 History and [...] Johnathan Guzman MD 06/15/17 16:22 EDT Normal [facility] Procedure Noteon 06-15-2017 Procedure Note PROCEDURE: [...] The patient was turned back onto the [facility] and taken to recovery in stable condition to be discharged per criteria.Electronically signed by B Johnathan smallwood MD 06/15/17 16:23 EDT Normal [facility] Ambulatory Patient Education on 05-27-2017 Ambulatory Patient Education Patient Education MaterialsName: Alvin Boyd Current Date: 05/27/2017 10:03:36 [place] 1935 [facility]: [id number] following sheet(s) are the Patient Education Leaflets [...] have a lot of pain?Your physician at [facility] will do everything [...] procedure. You are required to have a charter and tour bus driver remain in the facility before and [...] procedure: Please arrive at: Please check in at:Calker Desk in the Pain Management [id number], 3rd floor [facility] OHReception Desk inside the Emergency Room at [address]*Due to the sedation given for the procedure, you will not be permitted to drive until the following day. For this reason, you will need to bring a charter and tour bus driver to stay with you and drive [...] Hibiclens (a medicated soap) prior to your surgery.*[place] teeth, rinse with water, but do not swallow.*Please wear comfortable clothing, without metal zippers or snaps. Do not wear contact lenses. Do wear your hearing aid. Please leave all jewelry and valuables at home; you may wear your wedding ring.*Please note that due to limited space, your family member/charter and tour bus driver will need to wait in the waiting area while you are in the procedure area. Absolutely no children should attend an appointment for an injection.*All prescription refills must be requested in advance. No prescription refills requested on the day of a procedure will be available until at least 3 business days later.*If your procedure is done in [place], you will be receiving a statement from [facility] for the professional (physician's) billing fees and for the technical (hospital's) fees and a separate statement for the anesthesia provider. If your procedure is done in [place], you will be receiving a statement from [facility] for professional (physician's) billing fees, technical [...] questions or concerns, please contact the appropriate office:[facility] ([place] office) [phone] [facility] ([place] office) [phone] follow up appointment is scheduled for:AT:[facility] [address] [facility], 3rd floor [facility], [facility] [address] [facility], [address], [address], 2nd floor clinic, [address]?WHAT TO EXPECT AFTER THE PROCEDURE:Please [...] increase pain. (for example, bending, twisting, walking, tape cutting machine operator).Try to avoid pain medication or sleeping [...] call the office immediately if noted.Contact stimulator dealer compliance representative with questions regarding stimulator use.(see rep [...] and call office immediately if noted.Contact stimulator dealer compliance representative with questions regarding stimulator use.(see rep [...] drainage and call immediately if noted.Contact stimulator dealer compliance representative with questions regarding stimulator use.(see rep card) Normal [facility] Office/Clini c Noteon 05-27-2017 [...] Chiropractor: 11/2016 Date PT: 01/16 Frequency PT: [id number] Effective PT: not much help Comments TENS: [...] on his/her behalf by a trained medical instructor. The creation of this document is based on the provider?s statements to the medical instructor.Problem List/Past Medical History Ongoing Acid reflux Angina [...] Carmenza lynn 05/27/17 10:14 EDTElectronically signed by Myrna Reyes CNP 05/27/2017 10:22 EDT Normal [facility] Encounters Encounter Date Encounter Type Care Provider Facility Start: 04-19-2024 End: [facility]: 03-09-2024 End: 03-09-2024 ambulatory AMY WIN Not Available Start: 01-06-2024 End: 01-06-[address] [facility] Start: 12-03-2023 End: 12-03-2023 ambulatory DOUG [facility] Start: 11-16-2023 End: 11-16-2023 ambulatory AMY WIN Not Available Start: 10-19-2023 End: 10-19-[address] [facility] Start: 03-30-2023 End: 04-29-2023 ambulatory NOGUEIRA H FAWWAD Facility:[facility] Start: 03-02-2023 End: 03-27-2023 ambulatory NOGUEIRA H FAWWAD Facility:[facility] Start: 01-28-2023 End: 02-27-2023 ambulatory NOGUEIRA H FAWWAD Facility:[facility] Start: 12-31-2022 End: 01-28-2023 ambulatory NOGUEIRA H FAWWAD Facility:[facility] Start: 12-18-2022 End: 12-18-2022 ambulatory WINJEREMIAH JAUREGUI Facility:[facility] Start: 12-01-2022 End: 12-31-2022 ambulatory NOGUEIRA H FAWWAD Facility:[facility] Start: 11-11-2022 End: 11-12-[address] RIO LAL Facility:[facility] Start: 10-30-2022 End: 11-30-2022 ambulatory NOGUEIRA H FAWWAD Facility:[facility] Start: 09-30-2022 End: 10-29-2022 ambulatory NOGUEIRA H FAWWAD Facility:[facility] Start: 09-01-2022 End: 09-29-2022 ambulatory NOGUEIRA H FAWWAD Facility:[facility] Start: 07-31-2022 End: 08-30-2022 ambulatory NOGUEIRA H FAWWAD Facility:[facility] Start: 06-30-2022 End: 07-30-2022 ambulatory NOGUEIRA H FAWWAD Facility:[facility] Start: 05-30-2022 End: 06-27-2022 ambulatory NOGUEIRA H FAWWAD Facility:[facility] Start: 06-24-2019 End: 06-25-2019 Patient encounter procedure RIO LAL Facility:[facility] Start: 06-21-2019 End: 06-27-2019 Patient encounter procedure GERBER PETER Facility:[facility] Start: 04-13-2018 End: 04-14-2018 Ambulatory Rio Lal Facility:[facility] Start: 04-06-2018 End: 04-06-2018 Ambulatory RIO LAL Facility:[facility] Start: 03-29-2018 End: 03-30-2018 Ambulatory DRAGAN MORLEY Facility:[facility]urosurgic al [facility] Start: 03-16-2018 End: 03-17-2018 Ambulatory MYRNA DENIS AUXIER Facility:[facility] [place] Start: 02-19-2018 End: 02-20-2018 Ambulatory RIO LAL Facility:[facility] [place] Start: 01-13-2018 End: 01-13-2018 Ambulatory JOHNATHAN BAKOS Facility:[facility] Start: 01-06-2018 End: 01-07-2018 Ambulatory MYRNA DENIS AUXIER Facility:[facility] [place] Start: 11-09-2017 End: 11-09-2017 Ambulatory JOHNATHAN BAKOS Facility:[facility] Start: 10-14-2017 End: 10-15-2017 Ambulatory MYRNA DENIS AUXIER Facility:[facility] [place] Start: 09-09-2017 End: 09-09-2017 Ambulatory JOHNATHAN BAKOS Facility:[facility] Start: 08-26-2017 End: 08-26-2017 Ambulatory JOHNATHAN BAKOS Facility:[facility] Start: 07-29-2017 End: 07-30-2017 Ambulatory MYRNA DENIS AUXIER Facility:[facility] [place] Start: 06-29-2017 End: 06-29-2017 Ambulatory JOHNATHAN BAKOS Facility:[facility] Start: 06-15-2017 End: 06-15-2017 Ambulatory JOHNATHAN BAKOS Facility:[facility] Start: 05-27-2017 End: 05-28-2017 Ambulatory MYRNA DENIS AUXIER Facility:[facility] [place] Payers Date Payer Category Payer Medicare 1958 Medicare [id number] 1958 Unknown [id number] 1958 Unknown [id number] 1935 Unknown [id number] 2.16.8 [id number] 1935 Unknown [id number] 2.16.8 [id number] 1935 Unknown [id number] 2.16.84 0.1.907174.3.579.2.593 1936 Unknown [id number] 2.16.84 0.1.230471.3.579.2.593 1936 Unknown [id number] 2.16.84 0.1.805352.3.579.2.593 1936 Unknown [id number] 2.16.84 0.1.187216.3.579.2.593 1936 Unknown [id number] 2.16.84 0.1.389677.3.579.2.593 1936 Unknown [id number] 2.16.84 0.1.899827.3.579.2.593 1936 Unknown [id number] 2.16.84 0.1.483097.3.579.2.593 1936 Unknown [id number] 2.16.84 0.1.464638.3.579.2.593 1936 Unknown [id number] 2.16.84 0.1.083979.3.579.2.593 1936 Unknown [id number] 2.16.84 0.1.177398.3.579.2.593 1936 Unknown [id number] 2.16.84 0.1.858239.3.579.2.593 1936 Unknown [id number] 2.16.84 0.1.228644.3.579.2.593 1936 Unknown [id number] 2.16.84 0.1.714502.3.579.2.593 1936 Unknown [id number] 2.16.84 0.1.194222.3.579.2.1259 1936 Unknown [id number] 2.16.840 .1.120600.3.579.2.1259 Medicare [id number] Progress note 01-06-2024 Note Date & Type Note Facility 01-06-2024 Note Cardiovascular [facility] SUBJECTIVE No chief complaint on file. Alvin Boyd is a 88 y.o. male here for follow-up on his hypertension and HFpEF. His son accompanied him. 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 His weight has come down to 225# and has been stable. Despite the weight loss he c/o continued GROSS. Denies orthopnea, PND, leg swelling. He is no longer on prednisone. His BP has been better averaging around today's readings. He denies CP, palpitations, dizziness/LH. Patient Active Problem List Diagnosis Coronary artery disease involving [place] coronary artery of [place] heart without angina pectoris Acute on chronic systolic heart failure, NYHA class 2 ([facility]/HCC) Chronic atrial fibrillation ([facility]) Presence of biventricular cardiac pacemaker Benign hypertensive cardiomyopathy with heart failure (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) History of cardiovascular disorder Chronic disease of cardiovascular system Encounter for long-term (current) use of insulin ([facility]) Hyperlipidemia Mitral valve disorder Morbid obesity with BMI of 40.0-44.9, adult ([facility]) Osteoarthritis of right hip Pulmonary embolism ([facility]/HCC) Right knee DJD CAD S/P percutaneous coronary angioplasty Implantable cardioverter-defibrillator (ICD) in situ Past Medical History: Diagnosis Date Atrial fibrillation ([facility]/HCC) CHF (congestive heart failure) ([facility]) Coronary artery disease Heart valve disease Hyperlipidemia Hypertension No family history on file. Social History Tobacco Use Smoking status: Former Years: 18 Types: Cigarettes Quit date: 1984 Years since quittin.1 Smokeless tobacco: Never No Known Allergies ROS Cardiovascular: Positive for dyspnea on exertion. Respiratory: Positive for shortness of breath. Musculoskeletal: Positive for joint pain and muscle weakness. Neurological: Positive for focal weakness and weakness. All other systems reviewed and are negative. OBJECTIVE Visit Vitals BP 116/78 (BP Location: Right arm, Patient Position: Sitting) Pulse 59 Ht 1.753 m (5' 9 ) Wt 105 kg (231 lb) SpO2 98% BMI 34.11 kg/m??? Smoking Status Former BSA 2.26 m??? Medications: Current Outpatient Medications: aspirin 81 mg EC tablet, Take 81 mg by mouth in the morning., Disp: , Rfl: atorvastatin (Lipitor) 40 mg tablet, 1 (one) time each day at the same time., Disp: , Rfl: carvedilol (Coreg) 12.5 mg tablet, Take 1 tablet twice a day by oral route., Disp: , Rfl: DULoxetine (Cymbalta) [address] capsule, Take 30 mg by mouth in the morning., Disp: , Rfl: ferrous sulfate 325 (65 Fe) MG EC tablet, Take 1 tablet by mouth in the morning., Disp: , Rfl: furosemide (Lasix) 40 mg tablet, PRN for LE edema, Disp: , Rfl: hydroCHLOROthiazide 12.5 mg tablet, Take 12.5 mg by mouth 2 times daily., Disp: , Rfl: montelukast (Singulair) 10 mg tablet, , Disp: , Rfl: nitroglycerin (Nitrostat) 0.4 mg SL tablet, place 1 tab under tongue at the beginning of chest pain. May repeat every 5 minutes if pain persists. Do not repeat more that 3 times., Disp: , Rfl: omeprazole (PriLOSEC) [address] capsule, , Disp: , Rfl: potassium chloride CR (K-Tab) 20 mEq ER tablet, Take 1 tablet (20 mEq) by mouth in the morning. Do not crush, chew, or split., Disp: 30 tablet, Rfl: 11 sacubitriL-valsartan (Entresto) 49-51 mg tablet, Take 1 tablet twice a day by oral route., Disp: , Rfl: Spiriva with HandiHaler 18 mcg inhalation capsule, , Disp: , Rfl: warfarin (Coumadin) 5 mg tablet, Take 5 mg by mouth. Take as directed per After Visit Summary. Follow up with [place] [facility] for INR, Disp: , Rfl: Physical Exam Constitutional: Appearance: Normal appearance. He is normal weight. Comments: Ambulates with a walker HENT: Head: Normocephalic and atraumatic. Right Ear: External ear normal. Left Ear: External ear normal. Eyes: Extraocular Movements: Extraocular movements intact. Pupils: Pupils are equal, round, and reactive to light. Neck: Vascular: No carotid bruit. Cardiovascular: Rate and Rhythm: Normal rate and regular rhythm. Pulses: Normal pulses. Heart sounds: Normal heart sounds. Pulmonary: Effort: Pulmonary effort is normal. Breath sounds: Normal breath sounds. Abdominal: General: Bowel sounds are normal. Palpations: Abdomen is soft. Musculoskeletal: General: Normal range of motion. Cervical back: Neck supple. Right lower leg: No edema. Left lower leg: No edema. Skin: General: Skin is warm and dry. Neurological: General: No focal deficit present. Mental Status: He is alert and oriented to person, (more content not included)... [facility] Progress note 01-06-2024 Note Date & Type Note Facility 01-06-2024 Note Patient here for 1 m o follow acute on chronic CHF, chronic afib, hypokalemia, and hypertension. He was instructed to take 40mg of lasix x3 days at last visit. Down 6# from 12/03/2023. Denies chest pain, palpitations, lightheadedness/syncope, and bleeding on warfarin. Review of Systems Cardiovascular: Positive for dyspnea on exertion. Respiratory: Positive for shortness of breath. Musculoskeletal: Positive for joint pain and muscle weakness. Neurological: Positive for focal weakness and weakness. All other systems reviewed and are negative. [facility] Progress note 12-03-2023 Note Date & Type Note Facility 12-03-2023 Note Patient here for edda vated BP's s/p antibiotic initiation for bacterial pneumonia. Denies chest pain and lightheadedness. Entresto was not listed on his discharge papers from the hospital but he states he's been taking it. Says his BP has been running 160-170 systolic, and 107 diastolic. Review of Systems Cardiovascular: Positive for dyspnea on exertion and palpitations ( once in awhile ). Respiratory: Positive for shortness of breath. Musculoskeletal: Positive for joint pain and muscle weakness. Neurological: Positive for focal weakness and weakness. All other systems reviewed and are negative. [facility] Progress note 12-03-2023 Note Date & Type Note Facility 12-03-2023 Note Cardiovascular [facility] SUBJECTIVE Chief Complaint Patient presents with Hospital Follow-up Congestive Heart Failure Shortness of Breath Alvin Boyd is a 87 y.o. male here for follow-up after his recent admission to [facility]. 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 He was put on abx and prednisone. He notes his BP has been high since he started the steroids, BP running 160-170s/90-100s. This is before he takes his medications. He c/o weight gain. Weight was 228lbs at home. Now is running 233lbs. He does not add salt to foods or drink a large amount of fluids. He is continuing to feel fatigued and weakness. Discharge Diagnosis (1) Bacterial pneumonia: (2) Acute respiratory failure with hypoxemia: (3) COPD exacerbation: (4) Dehydration: (5) Hypokalemia: (6) 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): (7) Paroxysmal atrial fibrillation: (8) CAD (coronary artery disease): Qualifiers: Coronary Disease-Associated Artery/Lesion type: [place] artery [place] vs. transplanted heart: [place] heart Associated angina: without angina Qualified Code(s): I25.10 - Atherosclerotic heart disease of [place] coronary artery without angina pectoris (9) H/O deep venous thrombosis: DS: Summary Hospital Course Hospital Course: Reason for admission: See ER note and H&P for details. 87 y/o male to ER with SOB. C/o symptoms for several days. Frequent cough and developed chest heaviness. To ER and 87% on room air. Temp 101.6. Given rocephin for FUO. Chest x-ray clear and admitted. Hospital course: CTA performed and no PE but bilateral pneumonia. Added zithromax. Weaned oxygen. Improved and less SOB. Ambulating around room with walker. Afebrile and WBC improved. Normal SpO2 on room air. Discharged home in stable condition. Take zithromax and cefdinir for pneumonia. Resume home medication as directed. Patient Active Problem List Diagnosis Coronary artery disease involving [place] coronary artery of [place] heart without angina pectoris Acute on chronic systolic heart failure, NYHA class 2 (CMS/HCC) Chronic atrial fibrillation (CMS/HCC) Presence of biventricular cardiac pacemaker Benign hypertensive cardiomyopathy with heart failure (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) History of cardiovascular disorder Chronic disease of cardiovascular system Encounter for long-term (current) use of insulin ([facility]) Hyperlipidemia Mitral valve disorder Morbid obesity with BMI of 40.0-44.9, adult ([facility]) Osteoarthritis of right hip Pulmonary embolism ([facility]) Right knee DJD CAD S/P percutaneous coronary angioplasty Implantable cardioverter-defibrillator (ICD) in situ Past Medical History: Diagnosis Date Atrial fibrillation ([facility]) CHF (congestive heart failure) ([facility]) Coronary artery disease Heart valve disease Hyperlipidemia Hypertension No family history on file. Social History Tobacco Use Smoking status: Former Years: 18 Types: Cigarettes Quit date: 1984 Years since quittin.0 Smokeless tobacco: Never No Known Allergies ROS OBJECTIVE Visit Vitals BP 144/90 (BP Location: Left arm, Patient Position: Sitting) Pulse 59 Ht 1.753 m (5' 9 ) Wt 108 kg (237 lb) SpO2 98% BMI 35.00 kg/m??? Smoking Status Former BSA 2.29 m??? Medications: Current Outpatient Medications: atorvastatin (Lipitor) 40 mg tablet, 1 (one) time each day at the same time., Disp: , Rfl: carvedilol (Coreg) 12.5 mg tablet, Take 1 tablet twice a day by oral route., Disp: , Rfl: DULoxetine (Cymbalta) [address] capsule, Take 30 mg by mouth in the morning., Disp: , Rfl: ferrous sulfate 325 (65 Fe) MG EC tablet, Take 1 tablet by mouth in the morning., Disp: , Rfl: furosemide (Lasix) 40 mg tablet, PRN for LE edema, Disp: , Rfl: hydroCHLOROthiazide 12.5 mg tablet, Take 12.5 mg by mouth 2 times daily., Disp: , Rfl: montelukast (Singulair) 10 mg tablet, , Disp: , Rfl: nitroglycerin (Nitrostat) 0.4 mg SL tablet, place 1 tab under tongue at the beginning of chest pain. May repeat every 5 minutes if pain persists. Do not repeat more that 3 times., Disp: , Rfl: omeprazole (PriLOSEC) [address] capsule, , Disp: , Rfl: potassium chloride CR (K-Tab) 20 mEq ER tablet, Take 1 tablet (20 mEq) by mouth in the morning. Do not crush, chew, or split., Disp: 30 tablet, Rfl: 11 sacubitriL-valsartan (Entresto) 49-51 mg tablet, Take 1 tablet twice a day by oral route., Disp: , Rfl: Spiriva with HandiHaler 18 mcg inhalation capsule, , Disp: , Rfl: warfarin (Coumadin) 5 mg tablet, Take 5 mg by mouth. Take as directed per After Visit [place] (more content not included)... [facility] Progress note 10-19-2023 Note Date & Type Note Facility 10-19-2023 Note [facility] Note Reason for [...] aortic valve stenosis, CHF HFimpEF s/p BiV JACKAROO-P EF 55% he is here for 6-month [...] Date Atrial fibrillation ([facility]) CHF (congestive heart failure) ([facility]) Coronary artery disease Heart valve disease Hyperlipidemia [...] Follow up with [place] [facility] for INR atorvastatin (Lipitor) 40 mg [...] not included)... [facility] Progress note 10-19-2023 Note Date & Type Note Facility [...] for diarrhea. [facility] Summary Purpose Family History No Family History [...] section and content) DATE CREATED AUTHOR 05/19/2018 [facility] DATE CREATED AUTHOR AUTHOR'S ORGANIZ ATION 06/19/2020 [facility] DATE CREATED AUTHOR AUTHOR'S ORGANIZ ATION 05/08/2023 [facility] DATE CREATED AUTHOR AUTHOR'S ORGANIZ ATION 03/10/2024 [facility]ical [facility] [address] DATE CREATED AUTHOR AUTHOR'S ORGANIZ ATION 05/06/2024 [facility] FOR RECORDS PERTAINING TO PATIENTS [...] BE BASED ON THE PRIMARY CLINICAL RECORDS. [facility] [employer] [facility]. provides no warranty or guarantee of the accuracy or completeness of information in this document.
--- NOTE | 2024-05-30 08:02 | CA_ITS ---
Patient Name Site Name ALVIN BOYD [facility] Account No Medical Record Number Age Sex Date Time [id number] [facility]:[id number] M 05/30/2024 08:25 At the Request Of [facility] ECHOCARDIOGRAM REPORT PROCEDURE: CA ECHO DOPPLER COMPLETE INDICATIONS: CHF w/low ejection fraction COMPARISON: None. DESCRIPTION: COMPLETE ECHOCARDIOGRAM Real-time transthoracic echocardiography with 2D, M-mode, spectral and color flow Doppler performed. QUALITY: Technical quality was adequate. LEFT VENTRICLE: Normal chamber size. Moderate concentric left ventricular hypertrophy. Systolic function is at the lower limits of normal. LV EF: Lower limits of normal left ventricular ejection fraction, (50-55%). DIASTOLIC: ATRIAL SEPTUM: LEFT ATRIUM: Severe dilatation. RIGHT ATRIUM: Moderate dilatation. RIGHT VENTRICLE: Mild dilatation. Normal right ventricular systolic function. TRICUSPID VALVE: Normal mobility and thickness. No stenosis with moderate regurgitation. No evidence of pulmonary hypertension. RVSP 30 mmHg MITRAL VALVE: Mildly thickened with normal mobility. No evidence of mitral valve stenosis. There is no mitral annular calcification. Mild mitral regurgitation. AORTIC VALVE: Normal trileaflet appearance. Moderately calcified aortic valve. Moderately diminished mobility. Doppler velocity suggests mild aortic valve stenosis. DVI 0.3, COLE 1.5 cm2, Vmax 1.6 m/s, Mean gradient 6 mmHg. Mild aortic regurgitation. AORTIC ROOT: Normal diameter and appearance. PULMONIC VALVE: Grossly normal. No stenosis. No regurgitation. PERICARDIUM: No evidence of pericardial effusion. IVC: Collapses with inspirations. Normal size. PLEURA: CONCLUSION: 1. Moderate concentric left ventricular hypertrophy with low normal systolic function. LVEF is estimated at 50 to 55%. 2. Mildly dilated right ventricle with normal systolic function. 3. Moderate to severe biatrial dilatation. 4. Moderate tricuspid regurgitation. 5. Mild aortic valve stenosis and regurgitation. 6. Normal right-sided pressures. Adult Echocardiography Procedure Report Left Ventricle LVEDD (3.7 - 5.6 cm): 4.19 cm LVESD (2.2 - 4.0 cm): 3.33 cm LVIVS thickness (0.6 - 1.2 cm): 1.37 cm LVPW thickness (0.5 - 1.0 cm): 1.40 cm e': 0.06 m/s E - e': 14.97 LVOT Max Gradient: 0.96 mm[Hg] LVOT Area (cm2): 0.49 m/s Peak Velocity (LVOT): 0.49 m/s Mean Velocity (LVOT): 0.35 m/s LVOT Diameter 2.28 cm Left Ventricular Ejection Fraction: 50-55 % Left Atrium LA Volume Index (2D A2C): 73.31 ml/m2 Left Atrium Systolic Dimension: 3.80 cm Mitral Valve Mitral Valve E-Wave Peak Velocity: 0.86 m/s Right Ventricle RV Internal Diastolic Dimension: 4.15 cm Aorta AO Root Diam: 3.06 cm Ascending Ao Diam: 3.57 cm Aortic Valve AoV Area (Peak Cheikh): 1.38 cm2, 1.46 cm2 AoV Area (VTI): 1.51 cm2, 1.63 cm2 Peak Velocity(Antegrade Flow): 1.37 m/s, 1.55 m/s Peak Gradient(Antegrade Flow): 7.48 mm[Hg], 9.55 mm[Hg] Mean Velocity(Antegrade Flow): 0.98 m/s, 1.11 m/s Mean Gradient(Antegrade Flow): 4.43 mm[Hg], 5.68 mm[Hg] Velocity Time Integral: 27.44 cm, 31.98 cm Tricuspid Valve Peak Velocity (Regurgitant Flow): 2.50 m/s, 2.26 m/s, 2.59 m/s Pulmonic Valve Peak Velocity: 0.59 m/s Peak Gradient: 1.02 mm[Hg], 1.80 mm[Hg] Right Atrium Right Atrium Systolic Pressure: 109.60 ml, 109.60 ml Dictated by: Salo Campbell M.D. on 05/30/2024 at 17:11 Approved by: Salo Campbell M.D. on 05/30/2024 at 17:16
== END 2024-05-30 07:47 | disposition home or self-care (01) ==
PROVIDERS: PCP Internal Medicine; Visit Provider Internal Medicine Cardiovascular Disease
DX: I50.41 Acute combined systolic (congestive) and diastolic (congestive) heart failure (principal)
CPT/HCPCS: 93306

== ENCOUNTER 2024-06-21 08:46 | Outpatient (OUT) | payer MEDICARE, SELFPAY ==
[2024-06-21 09:02] LABS: Basophils Absolute Auto 0.1 10^3/uL (0.0-0.1); Basophils Percent Auto 0.7 % (0.2-2.0); Eosinophils Absolute Auto 0.1 10^3/uL (0.0-0.7); Eosinophils Percent Auto 1.3 % (0.9-7.0); Hematocrit 41.2 % (42.0-54.0); Hemoglobin 13.2 g/dL (14.0-18.0); Immature Granulocytes Abs Auto 0.03 10^3/uL (0.00-0.03); Immature Granulocytes Pct Auto 0.4 % (0.0-0.5); Lymphocytes Absolute Auto 1.7 10^3/uL (1.2-3.8); Lymphocytes Percent Auto 19.9 % (20.5-60.0); Mean Corpuscular Volume 96.7 fL (80.0-94.0); Mean Platelet Volume 9.6 fL (9.5-13.5); Monocytes Absolute Auto 0.5 10^3/uL (0.3-0.8); Monocytes Percent Auto 6.5 % (1.7-12.0); Neutrophils Absolute Auto 5.9 10^3/uL (1.4-6.5); Neutrophils Percent Auto 71.2 % (43.0-75.0); Platelet Count 177 10^3/uL (150-450); Red Blood Count 4.26 10^6/uL (4.70-6.10); Red Cell Distribution Width 13.2 % (11.0-15.0); White Blood Count 8.3 10^3/uL (4.0-11.0)
--- OUTSIDE RECORDS SUMMARY | 2024-06-21 09:09 | XMS_ITS | CCD ---
Author Organization 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 Role Phone AUXIER, MYRNA DENIS Unavailable [...] Rio Fabienne Unavailable Unavailabl e MORLEY, DRAGAN MIKLA Unavailable Unavailable [place], Myrna [id number] Unavailable Unavailable ValoneRio Fabienne Unavailable Unavailabl e [...] Attending Unavailable SHAIKH Milan URIBE Admitting Unavailable LUKASZ, DR MCCLURE Primary Care Unavailable SHAIKH Milan URIBE Attending Unavailable SHAIKH Milan URIBE Admitting Unavailable LUKASZ, DR MCCLURE Primary Care [...] Date of Onset Reaction(s) Facility (1 source) 98036,00; Translations: [Unknown] Propensity to adverse reactions (disorder) 9 [facility] Repository Problems Active Problems Problem Classification Problem [...] myocardial infarction; 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 Knott s/p device check on 04/19/2024. [facility] Office Visiton 01-06-2024 Follow-up visit [id number] Calin Boyd Laura 1935 M Date Provider Department Center 01/06/2024 DOUG ROGERS CARD [facility] No family history on file Level of Service:51397 [place] OFFICE/OUTPATIENT ESTABLISHED MOD MDM [address] [facility] Orders Onlyon 12-10-2023 Orders Only [id number] Calin Boyd Laura 1935 M [facility] Provider Department [place] 12/10/2023 SHIRIN ANDERSON CARD [facility] No family history on file [facility] 36on 12-08-2023 36 BP and weight seem l muna they are improving. Can we schedule for follow-up in clinic in 2-[address]! [facility] 37on 12-03-2023 37 *Check blood pressur e 1-2 hours after medications. *Take lasix 40mg daily x3 days along with potassium. *Monitor daily weights. [facility] Office Visiton 12-03-2023 Follow-up visit [id number] Calin Boyd Laura 1935 M Date Provider Department Center 12/03/2023 DOUG ROGERS CARD [facility] No family history on file Level of Service:16338 TX OFFICE/OUTPATIENT ESTABLISHED MOD MDM 30 MIN Reason for Visit and Comments: Hospital Follow-up [832] Congestive Heart Failure [127] Shortness of Breath [875173] [facility] Office Visiton 10-19-2023 Follow-up visit [id number] Calin Boyd 1935 M Date Provider Department Center 10/19/2023 SHASTA CROFT CARD [facility] No family history on file Level of Service:50667 TX OFFICE/OUTPATIENT ESTABLISHED MOD MDM 30-39 MIN Normal [facility] CBC AUTO DIFFon 12-18-2022 BASO # 0.1 103/ul Normal 0.0-0.1 [facility] Comment on above: Performed By: #### C BC #### [facility] [address] [address] [address] Dana Angulo Basophils/100 WBC (Bld) 0.8 % Normal 0.2-2.0 [facility] Comment on above: Performed By: #### C BC #### [facility] [address] [address] [address] Dana Angulo EO # 0.1 103/ul Normal 0.0-0.7 [facility] Comment on above: Performed By: #### C BC #### [facility] [address] [place] [address] Dr. Dana Angulo Eosinophils/100 WBC (Bld) 0.9 % Normal 0.9-7.0 [facility] Comment on above: Performed By: #### C BC #### [facility] [address] [place] [address] Dr. Dana Angulo Erythrocyte distribution width (RBC) [Ratio] 13.2 % Normal 11.0-15.0 [facility] Comment on above: Performed By: #### C BC #### [facility] [address] [place] [address] Dr. Dana Angulo Hematocrit (Bld) [Volume fraction] 37.1 % Critically low 42.0-54.0 [facility] Comment on above: Performed By: #### C BC #### [facility] [address] [address] [address] Dana Angulo Hemoglobin (Bld) [Mass/Vol] 12.1 g/dL Critically low 14.0-18.0 [facility] Comment on above: Performed By: #### C BC #### [facility] [address] [address] [address] Dana Angulo IG # 0.03 10e3/ul Normal 0.00-0.03 [facility] Comment on above: Performed By: #### C BC #### [facility] [address] [place] [address] Dr. Dana Angulo IG % 0.4 % Normal 0.0-0.5 [facility] Comment on above: Performed By: #### C BC #### [facility] [address] [place] [address] Dr. Dana Angulo LYMPH # 1.4 103/ul Normal 1.2-3.8 [facility] Comment on above: Performed By: #### C BC #### [facility] [address] [place] [address] Dr. Dana Angulo Lymphocytes/100 WBC (Bld) 19.0 % Critically low 20.5-60.0 [facility] Comment on above: Performed By: #### C BC #### [facility] [address] [place] [address] Dr. Dana Angulo MANUAL DIFF REQ NO Normal [facility] Comment on above: Performed By: #### C BC #### [facility] [address] [place] [address] Dr. Dana Angulo MCH (RBC) [Entitic mass] 30.6 pg Normal 25.9-34.0 [facility] Comment on above: Performed By: #### C BC #### [facility] [address] [place] [address] Dr. Dana Angulo MCHC (RBC) [Mass/Vol] 32.6 g/dL Normal 29.9-35.2 [facility] Comment on above: Performed By: #### C BC #### [facility] [address] [place] [address] Dr. Dana Angulo MCV (RBC) [Entitic vol] 93.7 fL Normal 80.0-94.0 [facility] Comment on above: Performed By: #### C BC #### [facility] [address] [place] [address] Dr. Dana Angulo MONO # 0.5 103/ul Normal 0.3-0.8 [facility] Comment on above: Performed By: #### C BC #### [facility] [address] [place] [address] Dr. Dana Angulo Monocytes/100 WBC (Bld) 7.2 % Normal 1.7-12.0 [facility] Comment on above: Performed By: #### C BC #### [facility] [address] [place] [address] Dr. Dana Angulo NEUT # 5.4 103/ul Normal 1.4-6.5 [facility] Comment on above: Performed By: #### C BC #### [facility] [address] [place] [address] Dr. Dana Angulo Neutrophils/100 WBC (Bld) 71.7 % Normal 43.0-75.0 [facility] Comment on above: Performed By: #### C BC #### [facility] [address] [place] [address] Dr. Dana Angulo Platelet mean volume (Bld) [Entitic vol] 9.6 fL Normal 9.5-13.5 [facility] Comment on above: Performed By: #### C BC #### [facility] [address] [place] [address] Dr. Dana Angulo PLT 165 103/ul Normal 150-450 [facility] Comment on above: Performed By: #### C BC #### [facility] [address] [place] [address] Dr. Dana Angulo RBC 3.96 106/ul Critically low 4.70-6.10 [facility] Comment on above: Performed By: #### C BC #### [facility] [address] [place] [address] Dr. Dana Angulo WBC 7.5 103/ul Normal 4.0-11.0 [facility] Comment on above: Performed By: #### C BC #### [facility] [address] [place] [address] Dr. Dana Angulo ER URINE PROFILEon 3 Bilirubin Ql (U) Negative Normal NEGATIVE [facility] Comment on above: Performed By: #### E RUR, UMICRO #### [facility] [address] [place] [address] Dr. Dana Angulo Clarity (U) CLEAR Normal CLEAR [facility] Comment on above: Performed By: #### Marino KENYON UMICRO #### [facility] [address] [place] [address] Dr. Dana Angulo Color (U) LT. YELLOW Normal YELLOW [facility] Comment on above: Performed By: #### E KOSTAS, UMICRO #### [facility] [address] [place] [address] Dr. Dana Angulo ERUKELSEAD A micrscopic examina tion will be performed if indicated. Normal [facility] Comment on above: Performed By: #### Marino KENYON UMICRO #### [facility] [address] [place] [address] Dr. Dana Angulo Glucose Ql (U) Negative Normal NEGATIVE [facility] Comment on above: Performed By: #### Marino KENYON UMICRO #### [facility] [address] [place] [address] Dr. Dana Angulo Hemoglobin Ql (U) Negative Normal NEGATIVE [facility] Comment on above: Performed By: #### Marino KENYON UMICRO #### [facility] [address] [place] [address] Dr. Dana Angulo Ketones Ql (U) Negative Normal NEGATIVE [facility] Comment on above: Performed By: #### Marino KENYON UMICRO #### [facility] [address] [place] [address] Dr. Dana Angulo LEUKOCYTES TRACE Abnormal NEGATIVE [facility] Comment on above: Performed By: #### Marino KENYON UMICRO #### [facility] [address] [place] [address] Dr. Dana Angulo Nitrite Ql (U) Negative Normal NEGATIVE [facility] Comment on above: Performed By: #### Marino KENYON UMICRO #### [facility] [address] [place] [address] Dr. Dana Angulo pH (U) 6.0 [pH] Normal 5-9 [facility] Comment on above: Performed By: #### Marino KENYON UMICRO #### [facility] [address] [place] [address] Dr. Dana Angulo SPEC GRAVITY 1.015 Normal 1.005-<=1.02 5 [facility] Comment on above: Performed By: #### HUMBERTO FRIEND #### [facility] [address] [place] [address] Dr. Dana Angulo UA PROTEIN Negative Normal NEGATIVE/ TRACE [facility] Comment on above: Performed By: #### ANGELINA FRIENDRO #### [facility] [address] [place] [address] Dr. Dana Angulo UR MICRO IND INDICATED Normal [facility] Comment on above: Performed By: #### HUMBERTO FRIEND #### [facility] [address] [place] [address] Dr. Dana Angulo Urobilinogen Qn (U) 0.2 {Delia'U}/dL Normal 0.2 - 1.0 [facility] Comment on above: Performed By: #### ANGELINA FRIENDRO #### [facility] [address] [place] [address] Dr. Dana Angulo LACTATE/LACTIC ACIDon 2022 Lactate [Moles/Vol] 1.1 mmol/L Normal 0.4-1.9 [facility] Comment on above: Performed By: #### L ACT #### [facility] [address] [place] [address] Dr. Dana Angulo LIPASEon 12-18-2022 Lipase [Catalytic activity/Vol] 68.0 U/L Critically low 73.0-393.0 [facility] Comment on above: Performed By: #### C BC #### [facility] [address] [place] [address] Dr. Dana Angulo OCC BLD IMMUNO SCREENon 11-30 OCCULT BLOOD Negative Normal NEGATIVE [facility] Comment on above: Performed By: #### H STROPN #### [facility] [address] [place] [address] Dr. Dana Angulo PROF 14(COMP METB)on 023 Albumin [Mass/Vol] 3.8 g/dL Normal 3.4-5.0 [facility] Comment on above: Performed By: #### C BC #### [facility] [address] [place] [address] Dr. Dana Angulo Albumin/Globulin [Mass ratio] 1.3 {ratio} Normal [facility] Comment on above: Performed By: #### C BC #### [facility] [address] [place] [address] Dr. Dana Angulo ALP [Catalytic activity/Vol] 70 U/L Normal 46-116 [facility] Comment on above: Performed By: #### C BC #### [facility] [address] [place] [address] Dr. Dana Angulo ALT [Catalytic activity/Vol] 22 U/L Normal 16-63 [facility] Comment on above: Performed By: #### C BC #### [facility] [address] [place] [address] Dr. Dana Angulo Anion gap [Moles/Vol] 13.5 mmol/L Normal [facility] Comment on above: Performed By: #### C BC #### [facility] [address] [place] [address] Dr. Dana Angulo AST [Catalytic activity/Vol] 25 U/L Normal 15-37 [facility] Comment on above: Performed By: #### C BC #### [facility] [address] [place] [address] Dr. Dana Angulo Bilirubin [Mass/Vol] 1.0 mg/dL Normal 0.2-1.0 [facility] Comment on above: Performed By: #### C BC #### [facility] [address] [place] [address] Dr. Dana Angulo Calcium [Mass/Vol] 9.7 mg/dL Normal 8.5-10.1 [facility] Comment on above: Performed By: #### C BC #### [facility] [address] [place] [address] Dr. Dana Angulo Chloride [Moles/Vol] 103 mmol/L Normal 98-107 [facility] Comment on above: Performed By: #### C BC #### [facility] [address] [address] [address] Dana Angulo CO2 [Moles/Vol] 25.1 mmol/L Normal 21.0-32.0 [facility] Comment on above: Performed By: #### C BC #### [facility] [address] [address] [address] Dana Angulo Creatinine [Mass/Vol] 1.07 mg/dL Normal 0.70-1.30 [facility] Comment on above: Performed By: #### C BC #### [facility] [address] [place] [address] Dr. Dana Angulo EGFR-AF SAMOAN >60 Normal >=60 [facility] Comment on above: Performed By: #### C BC #### [facility] [address] [place] [address] Dr. Dana Angulo EGFR-NON AF SAMOAN >60 Normal >=60 [facility] Comment on above: Performed By: #### C BC #### [facility] [address] [place] [address] Dr. Dana Angulo Globulin (S) [Mass/Vol] 3.0 g/dL Normal [facility] Comment on above: Performed By: #### C BC #### [facility] [address] [place] [address] Dr. Dana Angulo Glucose [Mass/Vol] 115 mg/dL Critically high 74-106 [facility] Comment on above: Performed By: #### C BC #### [facility] [address] [place] [address] Dr. Dana Angulo Potassium [Moles/Vol] 3.6 mmol/L Normal 3.5-5.1 [facility] Comment on above: Performed By: #### C BC #### [facility] [address] [place] [address] Dr. Dana Angulo Protein [Mass/Vol] 6.8 g/dL Normal 6.4-8.2 [facility] Comment on above: Performed By: #### C BC #### [facility] [address] [place] [address] Dr. Dana Angulo Sodium [Moles/Vol] 138 mmol/L Normal 136-145 [facility] Comment on above: Performed By: #### C BC #### [facility] [address] [address] [address] Dana Angulo Urea nitrogen [Mass/Vol] 39.0 mg/dL Critically high 7.0-18.0 [facility] Comment on above: Performed By: #### C BC #### [facility] [address] [place] [address] Dr. Dana Angulo Urea nitrogen/Creatinin e [Mass ratio] 36.4 mg/mg Normal [facility] Comment on above: Performed By: #### C BC #### [facility] [address] [place] [address] Dr. Dana Angulo PROTIMEon 12-18-2022 INR Coag (PPP) [Relative time] 2.15 {INR} Normal [facility] Comment on above: Performed By: #### P T, PTT #### [facility] [address] [place] [address] Dr. Dana Angulo INR GUIDELINES SEE BELOW Normal [facility] Comment on above: Result Comment: BETTINA RED INR: 2.0 - 3.0 CONDITIONS NOT LISTED BELOW 2.5 - 3.5 FOR PROSTHETIC HEART VALVE REPLACEMENT 2.5 - 3.5 RECURRENT THROMBOSIS Performed By: #### P T, PTT #### [facility] [address] [place] [address] Dr. Dana Angulo PT Coag (PPP) [Time] 21.8 s Critically high 9.0-11.6 [facility] Comment on above: Performed By: #### P T, PTT #### [facility] [address] [place] [address] Dr. Dana Angulo PTTon 12-18-2022 aPTT Coag (Bld) [Time] 35.3 s Normal 22.3-36.2 [facility] Comment on above: Performed By: #### P T, PTT #### [facility] [address] [place] [address] Dr. Dana Angulo TROPONIN, HIGH SENSITIVITYon 12-18-2022 HSTROP 37.2 pg/mL Normal 4.0-76.1 [facility] Comment on above: Result Comment: CUT- OFF POINTS HAVE BEEN ESTABLISHED BASED ON THE FOURTH UNIVERSAL DEFINITIONS OF MYOCARDIAL INFARCTION. THE UPPER REFERENCE LIMIT (URL) OF TROPONIN, DEFINED THE 99TH PERCENTILE OF cTnI DISTRIBUTION IN A REFERENCE POPULATION, HAS BEEN CONFIRMED THE DECISION THRESHOLD FOR AR DIAGNOSIS. Performed By: #### H STROPN #### [facility] [address] [place] [address] Dr. Dana Angulo HSTROP 39.8 pg/mL Normal 4.0-76.1 [facility] Comment on above: Result Comment: CUT- OFF POINTS HAVE BEEN ESTABLISHED BASED ON THE FOURTH UNIVERSAL DEFINITIONS OF MYOCARDIAL INFARCTION. THE UPPER REFERENCE LIMIT (URL) OF TROPONIN, DEFINED THE 99TH PERCENTILE OF cTnI DISTRIBUTION IN A REFERENCE POPULATION, HAS BEEN CONFIRMED THE DECISION THRESHOLD FOR AR DIAGNOSIS. Performed By: #### H ASHISH #### [facility] [address] [place] [address] Dr. Dana Angulo URINE MICROSCOPIC ONLYon BACTERIA NONE SEEN Normal NONE SEEN [facility] Comment on above: Performed By: #### Marino KENYON UMICRO #### [facility] [address] [place] [address] Dr. Dana Angulo Bacteria identified Cx Nom (U) NOT INDICATED Normal [facility] Comment on above: Performed By: #### Marino KENYON UMICRO #### [facility] [address] [place] [address] Dr. Dana Angulo CAST NONE SEEN Normal NONE SEEN [facility] Comment on above: Performed By: #### E RUR, UMICRO #### [facility] [address] [place] [address] Dr. Dana Angulo Crystals LM Nom (Urine sed) NONE SEEN Normal NONE SEEN [facility] Comment on above: Performed By: #### E RUR, UMICRO #### [facility] [address] [place] [address] Dr. Dana Angulo Epithelial cells LM Ql (Urine sed) FEW Abnormal NONE SEEN /RARE [facility] Comment on above: Performed By: #### E RUR UMICRO #### [facility] [address] [place], [place] [address] Dr. Dana Angulo MUCOUS NONE SEEN Normal NONE SEEN [facility] Comment on above: Performed By: #### E RUR, UMICRO #### [facility] [address] [place], [place] [address] Dr. Dana Angulo RBC NONE SEEN Abnormal 0-2 [facility] Comment on above: Performed By: #### E RUR, UMICRO #### [facility] [address] [place], [place] [address] Dr. Dana Angulo WBC 2-5 Abnormal NONE SEEN [facility] Comment on above: Performed By: #### E KOSTAS UMICRO #### [facility] [address] [place], [place] [address] Dr. Dana Angulo US SINGLE QUAD RT [...] DOMINIQUE JAUREGUI Date: 2022-12-18 13:05 Normal [facility] BNPon 11-11-2022 Natriuretic peptide B (Bld) [Mass/Vol] 2364.0 pg/mL Critically high <=1,800.0 [facility] Comment on above: Performed By: #### H STROPN #### [facility] [address] [place] [address] Dr. Dana Angulo BUNon 11-11-2022 Urea nitrogen [Mass/Vol] 18.0 mg/dL Normal 7.0-18.0 [facility] Comment on above: Performed By: #### H STROPN #### [facility] [address] [place] [address] Dr. Dana Angulo CBC AUTO DIFFon 11-11-2022 BASO # 0.0 103/ul Normal 0.0-0.1 [facility] Comment on above: Performed By: #### C BC #### [facility] [address] [place] [address] Dr. Dana Angulo Basophils/100 WBC (Bld) 0.6 % Normal 0.2-2.0 [facility] Comment on above: Performed By: #### C BC #### [facility] [address] [place] [address] Dr. Dana Angulo EO # 0.1 103/ul Normal 0.0-0.7 [facility] Comment on above: Performed By: #### C BC #### [facility] [address] [place] [address] Dr. Dana Angulo Eosinophils/100 WBC (Bld) 1.3 % Normal 0.9-7.0 [facility] Comment on above: Performed By: #### C BC #### [facility] [address] [place] [address] Dr. Dana Angulo Erythrocyte distribution width (RBC) [Ratio] 13.9 % Normal 11.0-15.0 [facility] [facility] Comment on above: Performed By: #### C BC #### [facility] [address] [place] [address] Dr. Dana Angulo Hematocrit (Bld) [Volume fraction] 36.2 % Critically low 42.0-54.0 [facility] Comment on above: Performed By: #### C BC #### [facility] [address] [address] [address] Dana Angulo Hemoglobin (Bld) [Mass/Vol] 11.4 g/dL Critically low 14.0-18.0 [facility] Comment on above: Performed By: #### C BC #### [facility] [address] [address] [address] Dana Angulo IG # 0.02 10e3/ul Normal 0.00-0.03 [facility] Comment on above: Performed By: #### C BC #### [facility] [address] [place] [address] Dr. Dana Angulo IG % 0.3 % Normal 0.0-0.5 [facility] Comment on above: Performed By: #### C BC #### [facility] [address] [place] [address] Dr. Dana Angulo LYMPH # 1.4 103/ul Normal 1.2-3.8 [facility] Comment on above: Performed By: #### C BC #### [facility] [address] [place] [address] Dr. Dana Angulo Lymphocytes/100 WBC (Bld) 19.8 % Critically low 20.5-60.0 [facility] Comment on above: Performed By: #### C BC #### [facility] [address] [place] [address] Dr. Dana Angulo MANUAL DIFF REQ NO Normal [facility] Comment on above: Performed By: #### C BC #### [facility] [address] [place] [address] Dr. Dana Angulo MCH (RBC) [Entitic mass] 30.9 pg Normal 25.9-34.0 [facility] Comment on above: Performed By: #### C BC #### [facility] [address] [place] [address] Dr. Dana Angulo MCHC (RBC) [Mass/Vol] 31.5 g/dL Normal 29.9-35.2 [facility] Comment on above: Performed By: #### C BC #### [facility] [address] [address] [address] Dnaa Angulo MCV (RBC) [Entitic vol] 98.1 fL Critically high 80.0-94.0 [facility] Comment on above: Performed By: #### C BC #### [facility] [address] [place] [address] Dr. Dana Angulo MONO # 0.5 103/ul Normal 0.3-0.8 [facility] Comment on above: Performed By: #### C BC #### [facility] [address] [place] [address] Dr. Dana Angulo Monocytes/100 WBC (Bld) 6.9 % Normal 1.7-12.0 [facility] Comment on above: Performed By: #### C BC #### [facility] [address] [place] [address] Dr. Dana Angulo NEUT # 5.1 103/ul Normal 1.4-6.5 [facility] Comment on above: Performed By: #### C BC #### [facility] [address] [place] [address] Dr. Dana Angulo Neutrophils/100 WBC (Bld) 71.1 % Normal 43.0-75.0 [facility] Comment on above: Performed By: #### C BC #### [facility] [address] [place] [address] Dr. Dana Angulo Platelet mean volume (Bld) [Entitic vol] 9.4 fL Critically low 9.5-13.5 [facility] Comment on above: Performed By: #### C BC #### [facility] [address] [place] [address] Dr. Dana Angulo PLT 164 103/ul Normal 150-450 [facility] Comment on above: Performed By: #### C BC #### [facility] [address] [place], [place] [address] Dr. Dana Angulo RBC 3.69 106/ul Critically low 4.70-6.10 [facility] Comment on above: Performed By: #### C BC #### [facility] [address] [place] [address] Dr. Dana Angulo WBC 7.1 103/ul Normal 4.0-11.0 [facility] Comment on above: Performed By: #### C BC #### [facility] [address] [place] [address] Dr. Dana Angulo CREATININEon 11-11-2022 Creatinine [Mass/Vol] 1.10 mg/dL Normal 0.70-1.30 [facility] Comment on above: Performed By: #### H STROPN #### [facility] [address] [place] [address] Dr. Dana Angulo EGFR-AF SAMOAN >60 Normal >=60 [facility] Comment on above: Result Comment: Prev iously reported as: >77 On 11/11/2022 10:45 By BL3 Previously reported as: (blank) On 11/11/2022 10:44 By BL3 Performed By: #### H STROPN #### [facility] [address] [place] [address] Dr. Dana Angulo EGFR-NON AF SAMOAN >60 Normal >=60 [facility] Comment on above: Result Comment: Prev iously reported as: >64 On 11/11/2022 10:45 By BL3 Previously reported as: (blank) On 11/11/2022 10:44 By BL3 Performed By: #### H STROPN #### [facility] [address] [place] [address] Dr. Dana Angulo CULTURE URINEon 11-11-2022 CULTURE URINE Culture Observations : NO GROWTH. Normal [facility] Comment on above: Performed By: #### C BC #### [facility] [address] [place] [address] Dr. Dana Angulo ELECTROLYTESon 11-11-2022 Anion gap [Moles/Vol] 12.7 mmol/L Normal [facility] Comment on above: Performed By: #### H STROPN #### [facility] [address] [place] [address] Dr. Dana Angulo Chloride [Moles/Vol] 103 mmol/L Normal 98-107 [facility] Comment on above: Performed By: #### H STROPN #### [facility] [address] [address] [address] Dana Angulo CO2 [Moles/Vol] 29.0 mmol/L Normal 21.0-32.0 [facility] Comment on above: Performed By: #### H STROPN #### [facility] [address] [address] [address] Dana Angulo Potassium [Moles/Vol] 4.7 mmol/L Normal 3.5-5.1 [facility] Comment on above: Performed By: #### H STROPN #### [facility] [address] [address] [address] Dana Angulo Sodium [Moles/Vol] 140 mmol/L Normal 136-145 [facility] Comment on above: Performed By: #### H STROPN #### [facility] [address] [address] [address] Dana Angulo GLYCOHEMOGLOBIN A1Con 2021 ADA RECOMMENDATION SEE BELOW Normal [facility] Comment on above: Result Comment: ADA RECOMMENDED LIMIT 4.0 - 6.0 ADA THERAPEUTIC TARGET < 7.0 ACTION SUGGESTED > 7.0 Performed By: #### H STROPN #### [facility] [address] [address] [address] Dana Angulo Glucose [Mass/Vol] 120 mg/dL Normal [facility] Comment on above: Performed By: #### H STROPN #### [facility] [address] [address] [address] Dana Angulo HbA1c (Bld) [Mass fraction] 5.8 % Normal 4.5-6.2 [facility] Comment on above: Performed By: #### H STROPN #### [facility] [address] [address] [address] Dana Angulo LIPID PROFILEon 11-11-2022 CHOL-HDL RATIO NORM SEE BELOW Normal [facility] Comment on above: Result Comment: 3.3 - 4.4 LOW RISK 4.4 - 7.1 AVERAGE RISK 7.1 - 11.0 MODERATE RISK >11.0 HIGH RISK Performed By: #### H STROPN #### [facility] [address] [address] [address] Dana Angulo Cholesterol [Mass/Vol] 91 mg/dL Normal <=200 [facility] Comment on above: Performed By: #### H STROPN #### [facility] [address] [address] [address] Dana Angulo Cholesterol in HDL [Mass/Vol] 49 mg/dL Normal 40-60 [facility] Comment on above: Performed By: #### H STROPN #### [facility] [address] [address] [address] Dana Angulo Cholesterol in LDL [Mass/Vol] 29.4 mg/dL Normal [facility] Comment on above: Performed By: #### H STROPN #### [facility] [address] [address] [address] Dana Angulo Cholesterol.total/ Cholesterol in HDL [Mass ratio] 1.9 {ratio} Normal [facility] Comment on above: Performed By: #### H STROPN #### [facility] [address] [address] [address] Dana Angulo HDL NORMAL > or = 60 mg/dl - LO W CARDIOVASCULAR RISK <40 mg/dl - HIGH CARDIOVASCULAR RISK Normal [facility] Comment on above: Performed By: #### H STROPN #### [facility] [address] [address] [address] Dana Angulo LDL CALC NORMAL SEE BELOW Normal [facility] Comment on above: Result Comment: <100 mg/dl OPTIMAL 100 - 129 mg/dl NEAR OR ABOVE OPTIMAL 130 - 159 mg/dl BORDERLINE HIGH 160 - 189 mg/dl HIGH >190 mg/dl VERY HIGH Performed By: #### H STROPN #### [facility] [address] [address] [address] Dana Angulo Triglyceride [Mass/Vol] 63 mg/dL Normal <=150 [facility] Comment on above: Performed By: #### H STROPN #### [facility] [address] [address] [address] Dana Angulo VLDL CALC 12.6 mg/dL Normal [facility] Comment on above: Performed By: #### H STROPN #### [facility] [address] [place] [address] Dr. Dana Angulo LIVER PROFILEon 11-11-2022 Albumin [Mass/Vol] 3.7 g/dL Normal 3.4-5.0 [facility] Comment on above: Performed By: #### H STROPN #### [facility] [address] [place] [address] Dr. Dana Angulo Albumin/Globulin [Mass ratio] 1.2 {ratio} Normal [facility] Comment on above: Performed By: #### H STROPN #### [facility] [address] [place] [address] Dr. Dana Angulo ALP [Catalytic activity/Vol] 68 U/L Normal 46-116 [facility] Comment on above: Performed By: #### H STROPN #### [facility] [address] [place] [address] Dr. Dana Angulo ALT [Catalytic activity/Vol] 20 U/L Normal 16-63 [facility] Comment on above: Performed By: #### H STROPN #### [facility] [address] [place] [address] Dr. Dana Angulo AST [Catalytic activity/Vol] 21 U/L Normal 15-37 [facility] Comment on above: Performed By: #### H STROPN #### [facility] [address] [place] [address] Dr. Dana Angulo BILI, CONJUGATED 0.3 mg/dL Critically high 0.0-0.2 [facility] Comment on above: Performed By: #### H STROPN #### [facility] [address] [place] [address] Dr. Dana Angulo Bilirubin [Mass/Vol] 0.9 mg/dL Normal 0.2-1.0 [facility] Comment on above: Performed By: #### H STROPN #### [facility] [address] [place] [address] Dr. Dana Angulo Globulin (S) [Mass/Vol] 3.1 g/dL Normal [facility] Comment on above: Performed By: #### H STROPN #### [facility] [address] [address] [address] Dana Angulo Protein [Mass/Vol] 6.8 g/dL Normal 6.4-8.2 [facility] Comment on above: Performed By: #### H STROPN #### [facility] [address] [place] [address] Dr. Dana Angulo TSHon 11-11-2022 TSH 3.426 uIU/mL Normal 0.358-3.740 [facility] Comment on above: Performed By: #### H STROPN #### [facility] [address] [place] [address] Dr. Dana Angulo UA (CLEAN/CATCH) PRESS DEPARTMENT MANAGER/MICRO I F IND.on 11-11-2022 Bilirubin Ql (U) Negative Normal NEGATIVE [facility] Comment on above: Performed By: #### U ACSIND, ICRO #### [facility] [address] [place] [address] Dr. Dana Angulo Clarity (U) CLEAR Normal CLEAR [facility] Comment on above: Performed By: #### U ACSIND, ICRO #### [facility] [address] [place] [address] Dr. Dana Angulo Color (U) YELLOW Normal YELLOW [facility] Comment on above: Performed By: #### U ACSIND, UMICRO #### [facility] [address] [place] [address] Dr. Dana Angulo Glucose Ql (U) Negative Normal NEGATIVE [facility] Comment on above: Performed By: #### U ACSIND, UMICRO #### [facility] [address] [place] [address] Dr. Dana Angulo Hemoglobin Ql (U) Negative Normal NEGATIVE [facility] Comment on above: Performed By: #### U ACSIND, UMICRO #### [facility] [address] [place] [address] Dr. Dana Angulo Ketones Ql (U) TRACE Abnormal NEGATIVE [facility] Comment on above: Performed By: #### U ACSIND, UMICRO #### [facility] [address] [address] [address] Dana Angulo LEUKOCYTES SMALL Abnormal NEGATIVE [facility] Comment on above: Performed By: #### U ACSIND, UMICRO #### [facility] [address] [place] [address] Dr. Dana Angulo Nitrite Ql (U) Negative Normal NEGATIVE [facility] Comment on above: Performed By: #### U ACSIND, UMICRO #### [facility] [address] [place] [address] Dr. Dana Angulo pH (U) 6.0 [pH] Normal 5-9 [facility] Comment on above: Performed By: #### U ACSREGGIE UMICRO #### [facility] [address] [place] [address] Dr. Dana Angulo SPEC GRAVITY 1.015 Normal 1.005-<=1.02 5 [facility] Comment on above: Performed By: #### U ACSREGGIE UMICRO #### [facility] [address] [place] [address] Dr. Dana Angulo UA PROTEIN TRACE Normal NEGATIVE/ TRACE [facility] Comment on above: Performed By: #### U ACSREGGIE UMICRO #### [facility] [address] [place] [address] Dr. Dana Angulo UR MICRO IND INDICATED Normal [facility] Comment on above: Performed By: #### U ACSREGGIE, UMICRO #### [facility] [address] [place] [address] Dr. Dana Angulo Urobilinogen Qn (U) 1.0 {Delia'U}/dL Normal 0.2 - 1.0 [facility] Comment on above: Performed By: #### U ACSIND, UMICRO #### [facility] [address] [place] [address] Dr. Dana Angulo URINE MICROSCOPIC ONLYon BACTERIA TRACE Abnormal NONE SEEN [facility] Comment on above: Performed By: #### U ACSIND, UMICRO #### [facility] [address] [place] [address] Dr. Dana Angulo Bacteria identified Cx Nom (U) INDICATED Normal [facility] Comment on above: Performed By: #### U ACSIND, UMICRO #### [facility] [address] [address] [address] Dana Angulo CAST SEEN Abnormal NONE SEEN [facility] Comment on above: Performed By: #### U ACSIND, UMICRO #### [facility] [address] [address] [address] Dana Angulo Crystals LM Nom (Urine sed) NONE SEEN Normal NONE SEEN [facility] Comment on above: Performed By: #### U ACSIND, UMICRO #### [facility] [address] [address] [address] Dana Angulo Epithelial cells LM Ql (Urine sed) RARE Normal NONE SEEN /RARE [facility] Comment on above: Performed By: #### U ACSIND, UMICRO #### [facility] [address] [place] [address] Dr. Dana Angulo MUCOUS NONE SEEN Normal NONE SEEN [facility] Comment on above: Performed By: #### U ACSIND, ICRO #### [facility] [address] [place] [address] Dr. Dana Angulo RBC 2-5 Abnormal 0-2 [facility] Comment on above: Performed By: #### U ACSIND, UMICRO #### [facility] [address] [place] [address] Dr. Dana Angulo WBC 2-5 Abnormal NONE SEEN [facility] Comment on above: Performed By: #### U ACSIND, UMICRO #### [facility] [address] [place] [address] Dr. Dana Angulo VITAMIN D 25 OHon 11-11-2022 VIT D 25-OH 30.2 ng/mL Normal [facility] Comment on above: Performed By: #### C BC #### [facility] [address] [place] [address] Dr. Dana Angulo VIT D RANGES SEE BELOW Normal [facility] Comment on above: Result Comment: <20 ng/mL Vit D deficient 20 - <30 ng/mL Vit D insufficient 30 - 100 ng/mL Vit D sufficient >100 ng/mL Potential Toxicity Performed By: #### C #### [facility] [address] [place], [place] [address] Dr. Dana Angulo Cardiovascular Lab Reporton 06-25-2019 Cardiovascular Lab Report [facility] MR #: [id number] Department of Physician: Geetha Blankenship M.D. Division of Service Date: 06/24/2019 Cardiology Birthdate: 1935 Adult Cardiovascular Room #: [facility] [address] [facility] [place] [address] Cardiovascular Laboratory Report FINAL IMPRESSION: 1. Normal right and left ventricular filling pressures. 2. Preserved cardiac output and cardiac index. 3. Mild pulmonary artery hypertension. 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 He has been experiencing shortness of breath [...] modified Seldinger technique and ultrasound guidance, a 5-[place] micropuncture was placed in right internal jugular vein. This was upsized to a regular 6-[place] pinnacle sheath and a 6-[place] Jackson was used for right heart [...] Lucas M.D. Date Trans: 06/25/2019 05:12 Rashard/deniz [id number] cc: Rio Lal D.O. [facility] [place] [address] Normal [facility] Neurosurgery Office/Clinic N saul 04-13-2018 Neurosurgery Office/Clinic [...] CAMACHO, Arsalan Brayden 04/13/18 15:39 EDT Normal [facility] CT Spine Lumbar w/ Contrasto n [...] Further degenerative changes are detailed above.Radiation Dose Estimate:CTDI(mGy):0.57298 0 / / / kVp:120.192067 / mAs:0.418454 / / / DLP(mGy-cm):5.326152Rtzh Part:CTDI(mGy):28.275187 / / / kVp:120.937206 / mAs:294.649716 / / / DLP(mGy-cm):632.421082Ueql Part: Final Dictated by: Naldo Aguilar MD MDictated DT/TM: 04.06.2018 11:34 amSigned by: Naldo Aguilar MD MSigned (Electronic Signature): 04.06.2018 3:49 pmTranscribed DT/TM: 04.06.2018 1:29 pm(If Report Is Signed, Electronically Signed in Other Vendor System) Normal [facility] Inpatient Clinical Summaryon 04-06-2018 Inpatient Clinical Summary [place] [id number] [id number] SummaryPerson InformationName: Alvin Boyd Age: 82 Years : 1935Sex: Male [facility] Rehabilitation[facility] Status: PCP: [id number]:White Ethnicity:Not or Language:EnglishMRN: [id number] Visit Id: Reason:stenosis, bilateral leg pain Speciality: Acuity:Enc Type: Outpatient in a Bed Med Service: Radiology-Diagnostic ImagingArrival:04/06/2018 08:16:35 Discharge: Dispo Type:Address:[address] [place] [id number]:Discharged To:Home Treatments:Devices/Equipme nt:Professional Skilled Services:Special Services and [...] Assoc 04/14/2018 14:30:00 04/14/2018 15:00:00 Confirmed Normal [facility] PTon 04-06-2018 INR Coag RelTime (PPP) 1.1 {INR} Normal <=3.5 [facility] Comment on above: Result Comment: INR has no normal range. INR Therapeutic range is:2.0-3.0 (AF, CVA, TIAs, DVT prophylaxis, acute DVT)2.5-3.5 ([facility] heart valves, recurrent thrombosis/emboli) Performed By: #### P TINR ####[address] [address] Prothrombin time (PT) Coag time (PPP) 11.3 s Normal 9.1-11.9 [facility] Comment on above: Performed By: #### P TINR ####[address] [address] PTTon 04-06-2018 aPTT 24.0 s Normal 21.0-28.8 [facility] Comment on above: Performed By: #### P TT ####[address] [address] Platelet Counton 04-06-2018 Platelets 135 x10*3/mcL Low 150-350 [facility] Comment on above: Performed By: #### P LTS ####[address] [address] XR Myelography Lumbosacral S pineon 04-06-2018 XR [...] Electronically Signed in Other Vendor System) Normal [facility] XR Spine Lumbosacral 2 or 3 [...] Electronically Signed in Other Vendor System) Normal [facility] Neurosurgery Office/Clinic N oteon 03-29-2018 Neurosurgery Office/Clinic Note Chief Complaint 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 Upon completion [...] JOE Dragan Vicente 03/29/18 12:41 EDT Normal [facility] Pain Management Office/Clini c Noteon 03-16-2018 [...] Injections: 11-09-17 Date Surgery: n/a Frequency PT: [id number] Effective PT: not much help Effective Injections: [...] Myrna Reyes CNP 03/16/18 13:37 EDT Normal [facility] Pain Management Office/Clini c Noteon 02-19-2018 [...] Injections: 11-09-17 Date Surgery: n/a Frequency PT: [id number] Effective PT: not much help Effective Injections: [...] Myrna infante CNP 02/19/18 12:56 EDT Normal [facility] History and Physicalon 01-13 History and [...] Johnathan Guzman MD 01/13/18 15:09 EST Normal [facility] Pain Management Procedure No glenn 01-13-2018 [...] Johnathan smallwood MD 01/13/18 15:09 EST Normal [facility] Ambulatory Patient Education on 01-06-2018 Ambulatory [...] next day. You must have a otr flatbed driver that will wait in the Pain [...] procedure: Please arrive at: Please check in at:Associate Chief Nurse Desk in the Pain Management [id number] [facility] [address], 3rd floor [facility] [place]Reception Desk inside the Emergency Room at [address]*Due to the sedation given for the procedure, you will not be permitted to drive until the following day. For this reason, you will need to bring a otr flatbed driver to stay with you and drive [...] Hibiclens (a medicated soap) prior to your surgery.*Denbo teeth, rinse with water, but do not swallow.*Please wear comfortable clothing, without metal zippers or snaps. Do not wear contact lenses. Do wear your hearing aid. Please leave all jewelry and valuables at home; you may wear your wedding ring.*Please note that due to limited space, your family member/otr flatbed driver will need to wait in the waiting area while you are in the procedure area. Absolutely no children should attend an appointment for an injection.*All prescription refills must be requested in advance. No prescription refills requested on the day of a procedure will be available until at least 3 business days later.*If your procedure is done in [place], you will be receiving a statement from [employer] [facility] for the professional (physician's) billing fees and for the technical (hospital's) fees and a separate statement for the anesthesia provider. If your procedure is done in [place], you will be receiving a statement from [facility] for professional (physician's) billing fees, [...] questions or concerns, please contact the appropriate office:[facility] ([place] office) [phone] [facility] ([place] office) [phone] follow up appointment is scheduled for:AT:[facility] [address] [facility], 3rd floor [facility], [facility] [address], [address], [address], 2nd floor clinic, [address]?WHAT TO EXPECT AFTER THE PROCEDURE:Please note [...] increase pain. (for example, bending, twisting, walking, computer information systems professor).Try to avoid pain medication or sleeping during [...] call the office immediately if noted.Contact stimulator charter representative with questions regarding stimulator use.(see rep [...] and call office immediately if noted.Contact stimulator charter representative with questions regarding stimulator use.(see rep [...] drainage and call immediately if noted.Contact stimulator charter representative with questions regarding stimulator use.(see rep card) Normal [facility] Office/Clini c Noteon 01-06-2018 [...] PT: 01/16 Date Injections: 11-09-17 Frequency PT: [id number] Effective PT: not much help Effective Injections: [...] Myrna Reyes CNP 01/06/18 15:15 EST Normal [facility] Management Office/Clini c Noteon 11-09-2017 [...] Johnathan smallwood MD 11/09/17 09:27 EST Normal [facility] Procedure Noteon 11-09-2017 Procedure Note PROCEDURE: [...] Johnathan Guzman MD 11/09/17 09:36 EST Normal [facility] Ambulatory Patient Education on 10-14-2017 Ambulatory [...] procedure: Please arrive at: Please check in at:Associate Chief Nurse Desk in the Pain Management [id number] [place] [address], 3rd floor [facility] inside the Emergency Room at [address]*Due to the sedation given for the procedure, you will not be permitted to drive until the following day. For this reason, you will need to bring a otr flatbed driver to stay with you and drive [...] Hibiclens (a medicated soap) prior to your surgery.*Denbo teeth, rinse with water, but do not swallow.*Please wear comfortable clothing, without metal zippers or snaps. Do not wear contact lenses. Do wear your hearing aid. Please leave all jewelry and valuables at home; you may wear your wedding ring.*Please note that due to limited space, your family member/otr flatbed driver will need to wait in the waiting area while you are in the procedure area. Absolutely no children should attend an appointment for an injection.*All prescription refills must be requested in advance. No prescription refills requested on the day of a procedure will be available until at least 3 business days later.*If your procedure is done in [place], you will be receiving a statement from [facility] for the professional (physician's) billing fees and for the technical (hospital's) fees and a separate statement for the anesthesia provider. If your procedure is done in [place], you will be receiving a statement from [facility] for professional (physician's) billing fees, technical [...] questions or concerns, please contact the appropriate office:[facility] ([place] office) [phone] [facility] ([place] office) [phone] follow up appointment is scheduled for:AT:[facility] [address], 3rd floor [facility], [facility] [address], [address], [facility] [address] [facility], 2nd floor clinic, [facility] [address] [facility]?WHAT TO EXPECT AFTER THE PROCEDURE:Please note [...] increase pain. (for example, bending, twisting, walking, computer information systems professor).Try to avoid pain medication or sleeping during [...] call the office immediately if noted.Contact stimulator charter representative with questions regarding stimulator use.(see rep [...] and call office immediately if noted.Contact stimulator charter representative with questions regarding stimulator use.(see rep [...] drainage and call immediately if noted.Contact stimulator charter representative with questions regarding stimulator use.(see rep card)Nerve Root InjectionThe nerve root injection is a procedure where a local anesthetic and steroid solution are administered near the nerve as it exits the spinal canal. This is done under fluoroscopy (watching under live x-ray) to deliver the drug to the precise location.Am I a candidate for a nerve root injection?At [facility], the provider examining you will [...] You are required to have a otr flatbed driver remain in the facility before and [...] home the morning of the procedure. Normal [facility] Office/Clini c Noteon 10-14-2017 [...] Chiropractor: 11/2016 Date PT: 01/16 Frequency PT: [id number] Effective PT: not much help Comments TENS: [...] Myrna infante CNP 10/14/17 11:44 EST Normal [facility] History and Physicalon 09-09 History and [...] Johnathan Guzman MD 09/09/17 11:17 EDT Normal [facility] Comment on above: Order Comment: This [...] Johnathan smallwood MD 09/09/17 11:20 EDT Normal [facility] Procedure Noteon 09-09-2017 Procedure Note PROCEDURE: [...] Johnathan Guzman MD 09/09/17 11:21 EDT Normal [facility] History and Physicalon 08-26 History and [...] cl CAMACHO, Johnathan 08/26/17 14:38 EDT Normal [facility] History and Physical History of Present [...] Johnathan smallwood MD 08/26/17 15:42 EDT Normal [facility] Procedure Noteon 08-26-2017 Procedure Note PROCEDURE: [...] cl CAMACHO, Johnathan 08/26/17 15:42 EDT Normal [facility] Ambulatory Patient Education on 07-29-2017 Ambulatory Patient Education Patient Education MaterialsName: EugeneAlvin Current Date: 07/29/2017 14:05:41 [place] 1935 following sheet(s) are the Patient Education Leaflets for Alvni Boyd Name:You are scheduled for a:*Please allow up to 2 hours for your appointment. Late arrivals may result in delay or postponement of procedure.Date/Time of procedure: Please arrive at: Date/Time of procedure: Please arrive at: Please check in at:Associate Chief Nurse Desk in the Pain Management [id number] [place] [address], 3rd floor [facility] Desk inside the Emergency Room at [address]*Due to the sedation given for the procedure, you will not be permitted to drive until the following day. For this reason, you will need to bring a otr flatbed driver to stay with you and drive [...] Hibiclens (a medicated soap) prior to your surgery.*Denbo teeth, rinse with water, but do not swallow.*Please wear comfortable clothing, without metal zippers or snaps. Do not wear contact lenses. Do wear your hearing aid. Please leave all jewelry and valuables at home; you may wear your wedding ring.*Please note that due to limited space, your family member/otr flatbed driver will need to wait in the waiting area while you are in the procedure area. Absolutely no children should attend an appointment for an injection.*All prescription refills must be requested in advance. No prescription refills requested on the day of a procedure will be available until at least 3 business days later.*If your procedure is done in [place], you will be receiving a statement from [facility] for the professional (physician's) billing fees and for the technical (hospital's) fees and a separate statement for the anesthesia provider. If your procedure is done in [place], you will be receiving a statement from [facility] for professional (physician's) billing fees, technical [...] questions or concerns, please contact the appropriate office:[facility] ([place] office) [phone] [facility] ([place] office) [phone] follow up appointment is scheduled for:AT:[facility] [facility], 3rd floor [facility], [facility] [address], [address], [facility] [address], 2nd floor clinic, [address]?WHAT TO EXPECT AFTER THE PROCEDURE:Please note [...] increase pain. (for example, bending, twisting, walking, computer information systems professor).Try to avoid pain medication or sleeping during [...] call the office immediately if noted.Contact stimulator charter representative with questions regarding stimulator use.(see rep [...] and call office immediately if noted.Contact stimulator charter representative with questions regarding stimulator use.(see rep [...] drainage and call immediately if noted.Contact stimulator charter representative with questions regarding stimulator use.(see rep [...] You are required to have a otr flatbed driver remain in the facility before and during the procedure, then drive you home following the procedure.What should I expect after the procedure?You are required to have a otr flatbed driver remain in the waiting room of [facility] during the procedure and drive you [...] physician regarding your other diabetic medications. Normal [facility] Office/Clini c Noteon 07-29-2017 [...] Chiropractor: 11/2016 Date PT: 01/16 Frequency PT: [id number] Effective PT: not much help Comments TENS: [...] CNP Myrna Gardnere 07/29/17 13:55 EDT Normal [facility] History and Physicalon 06-29 History and [...] Johnathan Guzman MD 06/29/17 13:18 EDT Normal [facility] Procedure Noteon 06-29-2017 Procedure Note PROCEDURE: [...] The patient was turned back onto the [facility] and taken to recovery in stable condition to be discharged per criteria.Electronically signed by Johnathan Guzman MD 06/29/17 14:34 EDT Normal [facility] History and Physicalon 06-15 History and [...] Johnathan Guzman MD 06/15/17 16:22 EDT Normal [facility] Procedure Noteon 06-15-2017 Procedure Note PROCEDURE: [...] The patient was turned back onto the [facility] and taken to recovery in stable condition to be discharged per criteria.Electronically signed by B Johnathan smallwood MD 06/15/17 16:23 EDT Normal [facility] Ambulatory Patient Education on 05-27-2017 Ambulatory Patient Education Patient Education MaterialsName: Alvin Boyd Current Date: 05/27/2017 10:03:36 Jes/[place]OB: 1935 [facility]: [id number] following sheet(s) are the Patient Education Leaflets [...] have a lot of pain?Your physician at [facility] will do everything possible to [...] You are required to have a otr flatbed driver remain in the facility before and [...] procedure: Please arrive at: Please check in at:Associate Chief Nurse Desk in the Pain Management [id number], 3rd floor [facility]Reception Desk inside the Emergency Room at [address]*Due to the sedation given for the procedure, you will not be permitted to drive until the following day. For this reason, you will need to bring a otr flatbed driver to stay with you and drive [...] Hibiclens (a medicated soap) prior to your surgery.*Denbo teeth, rinse with water, but do not swallow.*Please wear comfortable clothing, without metal zippers or snaps. Do not wear contact lenses. Do wear your hearing aid. Please leave all jewelry and valuables at home; you may wear your wedding ring.*Please note that due to limited space, your family member/otr flatbed driver will need to wait in the waiting area while you are in the procedure area. Absolutely no children should attend an appointment for an injection.*All prescription refills must be requested in advance. No prescription refills requested on the day of a procedure will be available until at least 3 business days later.*If your procedure is done in [place], you will be receiving a statement from [facility] for the professional (physician's) billing fees and for the technical (hospital's) fees and a separate statement for the anesthesia provider. If your procedure is done in [place], you will be receiving a statement from [facility] for professional (physician's) billing fees, technical [...] questions or concerns, please contact the appropriate office:[facility] ([place] office) [phone] [facility] ([place] office) [phone] follow up appointment is scheduled for:AT:[facility] [address] [facility], 3rd floor [facility], [facility] [address], [address], [address], 2nd floor clinic, [address]?WHAT TO EXPECT AFTER THE PROCEDURE:Please note [...] increase pain. (for example, bending, twisting, walking, computer information systems professor).Try to avoid pain medication or sleeping during [...] call the office immediately if noted.Contact stimulator charter representative with questions regarding stimulator use.(see rep [...] and call office immediately if noted.Contact stimulator charter representative with questions regarding stimulator use.(see rep [...] drainage and call immediately if noted.Contact stimulator charter representative with questions regarding stimulator use.(see rep card) Normal [facility] Management Office/Clini c Noteon 05-27-2017 [...] Chiropractor: 11/2016 Date PT: 01/16 Frequency PT: [id number] Effective PT: not much help Comments TENS: [...] created on his/her behalf by a trained diagnostic medical sonographer. The creation of this document is based on the provider?s statements to the diagnostic medical sonographer.Problem List/Past Medical History Ongoing Acid reflux Angina [...] Myrna Reyes CNP 05/27/2017 10:22 EDT Normal [facility] Encounters Encounter Date Encounter Type Care Provider Facility Start: 04-19-2024 End: [facility] Start: 03-09-2024 End: 03-09-2024 ambulatory AMY WIN Not Available Start: 01-06-2024 End: 01-06-2024 ambulatory [facility] Start: 12-03-2023 End: 12-03-2023 ambulatory [facility] Start: 11-16-2023 End: 11-16-2023 ambulatory AMY WIN Not Available Start: 10-19-2023 End: 10-19-2023 ambulatory SHASTA [facility] Start: 03-30-2023 End: 04-29-2023 ambulatory NOGUEIRA [...] 06-25-2019 Patient encounter procedure RIO LAL Facility:[facility] Start: 06-21-2019 End: 06-27-2019 Patient encounter procedure GERBER PETER Facility:[facility] Start: 04-13-2018 End: 04-14-2018 Ambulatory Rio Lal Facility:[facility] Start: 04-06-2018 End: 04-06-2018 Ambulatory RIO LAL Facility:[facility] Start: 03-29-2018 End: 03-30-2018 Ambulatory DRAGAN MORLEY Facility:[facility] Start: 03-16-2018 End: 03-17-2018 Ambulatory MYRNA DENIS AUXIER Facility:[facility] [place] Start: 02-19-2018 End: 02-20-2018 Ambulatory RIO LAL Facility:[facility] [place] Start: 01-13-2018 End: 01-13-2018 Ambulatory JOHNATHAN BAKOS Facility:[facility] Start: 01-06-2018 End: 01-07-2018 Ambulatory MYRNA DENIS AUXIER Facility:[facility] [place] Start: 11-09-2017 End: 11-09-2017 Ambulatory JOHNATHAN BAKOS Facility:[facility] Start: 10-14-2017 End: 10-15-2017 Ambulatory MYRNA DENIS AUXIER Facility:[facility] [place] Start: 09-09-2017 End: 09-09-2017 Ambulatory JOHNATHAN BAKOS Facility:[facility] Start: 08-26-2017 End: 08-26-2017 Ambulatory JOHNATHAN BAKOS Facility:[facility] Start: 07-29-2017 End: 07-30-2017 Ambulatory MYRNA DENIS AUXIER Facility:[facility] [place] Start: 06-29-2017 End: 06-29-2017 Ambulatory JOHNATHAN BAKOS Facility:[facility] Start: 06-15-2017 End: 06-15-2017 Ambulatory JOHNATHAN BAKOS Facility:[facility] Start: 05-27-2017 End: 05-28-2017 Ambulatory MYRNA DENIS AUXIER Facility:[facility] [place] Payers Date Payer Category Payer Medicare 1958 Medicare [id number] 1958 Unknown [id number] 1958 Unknown [id number] 1935 Unknown [id number] 2.16.8 [id number] 1935 Unknown [id number] 2.16.8 [id number] 1936 Unknown [id number] 2.16.84 0.1.641438.3.579.2.593 1936 Unknown [id number] 2.16.84 0.1.284045.3.579.2.593 1936 Unknown [id number] 2.16.84 0.1.948365.3.579.2.593 1936 Unknown [id number] 2.16.84 0.1.722623.3.579.2.593 1936 Unknown [id number] 2.16.84 0.1.662570.3.579.2.593 1936 Unknown [id number] 2.16.84 0.1.470883.3.579.2.593 1936 Unknown [id number] 2.16.84 0.1.366403.3.579.2.593 1936 Unknown [id number] 2.16.84 0.1.547931.3.579.2.593 1936 Unknown [id number] 2.16.84 0.1.998093.3.579.2.593 1936 Unknown [id number] 2.16.84 0.1.823165.3.579.2.593 1936 Unknown [id number] 2.16.84 0.1.680082.3.579.2.593 1936 Unknown [id number] 2.16.84 0.1.628472.3.579.2.593 1936 Unknown [id number] 2.16.84 0.1.091096.3.579.2.593 1936 Unknown [id number] 2.16.84 0.1.159680.3.579.2.1259 1936 Unknown [id number] 2.16.840 .[id number] Medicare [id number] Progress note 01-06-2024 Note Date & Type Note Facility 01-06-2024 Note Cardiovascular Medic [facility] SUBJECTIVE No chief complaint on file. Alvin Boyd is a 88 y.o. male here for follow-up on his hypertension and HFpEF. His son accompanied him. 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 ([facility]) Dyspnea on exertion Edema of both lower extremities Arthritis Asthma, allergic 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 Dizziness and giddiness DVT (deep venous thrombosis) ([facility]) History of cardiovascular disorder Chronic disease of cardiovascular system Encounter for long-term (current) use of insulin ([facility]) Hyperlipidemia Mitral valve disorder Morbid obesity with BMI of 40.0-44.9, adult ([facility]) Osteoarthritis of right hip Pulmonary embolism ([facility]/HCC) Right knee DJD CAD S/P percutaneous coronary angioplasty Implantable cardioverter-defibrillator (ICD) in situ Past Medical History: Diagnosis Date Atrial fibrillation ([facility]/HCC) CHF (congestive heart failure) ([facility]) Coronary artery disease Heart valve [...] per After Visit Summary. Follow up with [facility] for INR, Disp: , Rfl: Physical [...] oriented to person, (more content not included)... [facility] Progress note 01-06-2024 Note Date & Type [...] All other systems reviewed and are negative. [facility] Progress note 12-03-2023 Note Date & Type [...] All other systems reviewed and are negative. [facility] Progress note 12-03-2023 Note Date & Type Note Facility 12-03-2023 Note Cardiovascular Medic [facility] SUBJECTIVE Chief Complaint Patient presents with Hospital Follow-up Congestive Heart Failure Shortness of Breath Alvin Boyd is a 87 y.o. male here for follow-up after his recent admission to [facility]. 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 transplanted heart: del[place] tribe heart Associated angina: without angina Qualified Code(s): I25.10 - Atherosclerotic heart disease of del[place] tribe coronary artery without angina pectoris (9) H/O [...] Problem List Diagnosis Coronary artery disease involving del[place] tribe coronary artery of del[place] tribe heart without angina pectoris Acute on chronic systolic heart failure, NYHA class 2 (CMS/HCC) Chronic atrial fibrillation (CMS/HCC) Presence of biventricular cardiac pacemaker Benign hypertensive cardiomyopathy with heart failure ([facility]) Dyspnea on exertion Edema of both lower extremities Arthritis Asthma, allergic 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 Dizziness and giddiness DVT (deep venous thrombosis) ([facility]) History of cardiovascular disorder Chronic disease of cardiovascular system Encounter for long-term (current) use of insulin ([facility]) Hyperlipidemia Mitral valve disorder Morbid obesity with BMI of 40.0-44.9, adult ([facility]) Osteoarthritis of right hip Pulmonary embolism ([facility]) Right knee DJD CAD S/P percutaneous coronary angioplasty Implantable cardioverter-defibrillator (ICD) in situ Past Medical History: Diagnosis Date Atrial fibrillation ([facility]) CHF (congestive heart failure) ([facility]) Coronary artery disease Heart valve [...] After Visit Suarez (more content not included)... 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 [facility] Progress note 10-19-2023 Note Date & Type [...] Positive for arthritis. Gastrointestinal: Positive for diarrhea. [facility] Summary Purpose Family History No Family History [...] section and content) DATE CREATED AUTHOR 05/19/2018 [facility] DATE CREATED AUTHOR AUTHOR'S ORGANIZ ATION 06/19/2020 [facility] DATE CREATED AUTHOR AUTHOR'S ORGANIZ ATION 05/08/2023 [facility] DATE CREATED AUTHOR AUTHOR'S ORGANIZ ATION 03/10/2024 [facility] DATE CREATED AUTHOR AUTHOR'S ORGANIZ ATION 05/06/2024 [facility] FOR RECORDS PERTAINING TO PATIENTS WHO ARE [...] BE BASED ON THE PRIMARY CLINICAL RECORDS. [facility]. provides no warranty or guarantee of the accuracy or completeness of information in this document.
[2024-06-21 09:30] LABS: Alanine Aminotransferase 21 U/L (16-63); Albumin Globulin Ratio 1.2; Albumin Level 3.8 g/dL (3.4-5.0); Alkaline Phosphatase 79 U/L (46-116); Anion Gap 12.9; Aspartate Amino Transferase 13 U/L (15-37); BUN Creatinine Ratio 29.5; Calcium 9.3 mg/dL (8.5-10.1); Carbon Dioxide 27.7 mmol/L (21.0-32.0); Chloride 103 mmol/L (98-107); Chol HDL Ratio 2.3; Cholesterol 117 mg/dL (<=200); Estimated GFR (African America >60 (>=60); Estimated GFR (Non-African Ame >60 (>=60); Globulin 3.1 g/dL; Glucose 107 mg/dL (74-106); HDL Cholesterol 50 mg/dL (40-60); LDL Cholesterol Calculated 53.2 mg/dL; Potassium 4.6 mmol/L (3.5-5.1); Sodium 139 mmol/L (136-145); Total Protein 6.9 g/dL (6.4-8.2); Triglycerides 69 mg/dL (<=150); VLDL CHOLESTEROL 13.8 mg/dL
== END 2024-06-21 08:47 | disposition home or self-care (01) ==
LOC: LAB 08:47
PROVIDERS: PCP Internal Medicine; Visit Provider Internal Medicine Interventional Cardiology
DX: I25.10 Atherosclerotic heart disease of native coronary artery without angina pectoris (principal); I48.21 Permanent atrial fibrillation
CPT/HCPCS: 36415; 80053; 80061; 85025

== ENCOUNTER 2024-06-30 00:32 | Outpatient (RCR) | payer MEDICARE, SELFPAY | END 2024-07-29 09:36 | disposition home or self-care (01) | LOC: MM 00:32 | PROVIDERS: PCP Internal Medicine; Visit Provider Internal Medicine | DX: Z51.81 Encounter for therapeutic drug level monitoring (principal); Z79.01 Long term (current) use of anticoagulants; I48.91 Unspecified atrial fibrillation | CPT/HCPCS: 85610; G0463 ==

== ENCOUNTER 2024-08-01 01:01 | Outpatient (RCR) | payer MEDICARE, SELFPAY | END 2024-08-29 23:39 | disposition home or self-care (01) | LOC: MM 01:01 | PROVIDERS: PCP Internal Medicine; Visit Provider Internal Medicine | DX: Z51.81 Encounter for therapeutic drug level monitoring (principal); Z79.01 Long term (current) use of anticoagulants; I48.91 Unspecified atrial fibrillation | CPT/HCPCS: 85610; G0463 ==

== ENCOUNTER 2024-08-02 09:13 | Outpatient (REF) | payer MEDICARE, SELFPAY ==
--- OUTSIDE RECORDS SUMMARY | 2024-08-02 09:34 | XMS_ITS | CCD ---
Author Organization [facility] Care Team Providers Care Biology Internship Name Role Phone AUXIER, MYRNA DENIS Unavailable [...] Unavailabl e MORLEY, DRAGAN MILKA Unavailable Unavailable [place], Myrna [id number] Unavailable Unavailable Rio Lal Fabienne Unavailable Unavailabl e Valone, Rio Fabienne Unavailable Unavailabl e Arsalan Leija Unavailable Unavailable VALONERIO FABIENNE Unavailable Unavailabl e MORLEY, DRAGAN MILKA Unavailable Unavailable Rio Lal Unavailable Unavailabl e VALONERIO Referring Unavailable RIO LAL Primary Care Unavailable PERLITA LUCAS Attending Unavailable PERILTA LUCAS Admitting Unavailable GERBER PETER Admitting Unavailable GERBER PETER Attending Unavailable RIO LAL Referring Unavailable RIO LAL Primary Care Unavailable SHAIKH Milan URIBE Attending Unavailable SHAIKH URIBE H Admitting Unavailable VALFRAN, DR MCCLURE Primary Care Unavailable SHAIKH [place] URIBE Attending Unavailable SHAIKH URIBE H Admitting Unavailable LUKASZ, DR MCCLURE Primary Care Unavailable SHAIKH Milan URIBE Attending Unavailable SHAIKH URIBE H Admitting Unavailable VALFRAN, DR MCCLURE Primary Care [...] WIN Attending Unavailable AMY WIN Attending Unavailable AMY WIN Attending Unavailable CUCA KNOTT Referring Unavailable PARISA SOLARES Attending Unavailable CUCA KNOTT Referring Unavailable DOUG GIBSON Attending Unavailable DOUG GIBSON Attending Unavailable SHASTA SELBY Attending Unavailable Allergies Allergy Classification Reported Allergen(s) Allergy Type Date of Onset Reaction(s) Facility (1 source) 47267,00; Translations: [Unknown] Propensity to adverse reactions (disorder) 9 The [facility] Repository Problems Active Problems Problem Classification Problem Date Documented Date Episodic/Chronic Aortic; peripheral; and visceral artery aneurysms (2 sources) Thoracic aortic ectasia; Translations: [Thoracic aortic ectasia] Onset: 3 Chronic Cardiac dysrhythmias (5 sources) Unspecified atrial fibrillation; Translations: [UNSPECIFIED ATRIAL FIBRILLATION] Onset: 3 Chronic Chronic kidney disease (1 source) Chronic kidney disease; 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] Onset: 2 Conduction disorders (4 sources) Presence of cardiac pacemaker; Translations: [Encounter for adjustment and management of automatic implantable cardiac defibrillator] Onset: 3 Chronic Congestive heart failure; nonhypertensive (9 sources) Heart failure, unspecified; Translations: [Chronic diastolic (congestive) heart failure] Onset: 2 Chronic Coronary atherosclerosis and other heart disease (4 sources) Old myocardial infarction; Translations: [Atherosclerotic heart disease of campo coronary artery without angina pectoris] Onset: 2 Chronic Disorders of lipid metabolism (1 source) Pure hypercholesterolemia, unspecified; Translations: [PURE HYPERCHOLESTEROLEMIA UNSPEC] Onset: 3 Chronic Esophageal disorders (1 source) Gastro-esophageal reflux disease without esophagitis; Translations: [GERD WITHOUT ESOPHAGITIS] Onset: 3 Chronic Essential hypertension (2 sources) Essential (primary) hypertension; Translations: [Essential (primary) hypertension] Onset: 4 Chronic Hypertension with complications and secondary hypertension (1 source) Hypertensive heart disease with heart failure; Translations: [HTN HEART DISEASE W/HEART FAIL] Onset: 3 Chronic Nutritional deficiencies (1 source) Vitamin D deficiency, unspecified; Translations: [VITAMIN D DEFICIENCY UNSPECIFIED] Onset: 2 Chronic Other aftercare (5 sources) Encounter for therapeutic drug level monitoring; Translations: [ENC THERAPEUTC DRUG LEVL MONITORING] Onset: 3 Episodic Other aftercare (1 source) shelter (current) use of anticoagulants; Translations: [SHELTER CURRNT USE ANTICOAGULANTS] Onset: 3 Episodic Other [...] [SLEEP APNEA UNSPECIFIED] Onset: 3 Chronic Unclassified (2 sources) Permanent atrial fibrillation; Translations: [Permanent atrial fibrillation] Onset: 4 Unclassified (1 source) Aneurysm of the ascending [...] Episodic Other aftercare (1 source) Other intermediate project manager (current) drug therapy; Translations: [OTH PRODUCTION PAINTER CURRENT DRUG THERAPY] Onset: 2022 Episodic Other aftercare (1 source) shelter (current) use of aspirin; Translations: [SHELTER CURRENT USE OF ASPIRIN] Onset: 2022 Episodic [...] Name Value Interpretation Reference Range Facility 36on 07-05-2024 36 Regarding lab result s from 06/21/2024: MD Blanca Cannon MA Blood testing was ok, follow up in 1 year. Patient informed. [facility] Office Visiton 06-20-2024 Follow-up visit [id number] Calin Boyd 1935 M Date Provider Department Center 06/20/2024 PARISA MORALES GRGE [facility] No family history on file Level of Service:41224 IN OFFICE/OUTPATIENT ESTABLISHED MOD MDM 30 MIN [facility] 36on 05-05-2024 [address] Knott s/p device check on 04/19/2024. [facility] Office Visiton 01-06-2024 Follow-up visit [id number] BoydCalin 1935 M Date Provider Department Center 01/06/2024 DOUG ROGERS CARD [facility] No family history on file Level of Service:87464 IN OFFICE/OUTPATIENT ESTABLISHED MOD MDM 30 MIN [facility] Orders Onlyon 12-10-2023 Orders Only [id number] BoydCalin 1935 M Date Provider Department Center 12/10/2023 SHIRIN ANDERSON CARD [facility] No family history on file [facility] 36on 12-08-2023 36 BP and weight seem l muna they are improving. Can we schedule for follow-up in clinic in 2-4 weeks. Thanks! [facility] 37on 12-03-2023 37 *Check blood pressur e 1-2 hours after medications. *Take lasix 40mg daily x3 days along with potassium. *Monitor daily weights. Normal [facility] Office Visiton 12-03-2023 Follow-up visit [id number] Calin Boyd 1935 M Date Provider Department Center 12/03/2023 JenPAIGE DOUG GREG [facility] No family history on file Level of Service:17605 IN OFFICE/OUTPATIENT ESTABLISHED MOD MDM 30 MIN Reason for Visit and Comments: Hospital Follow-up [832] Congestive Heart Failure [127] Shortness of Breath [210504] Normal [facility] Office Visiton 10-19-2023 Follow-up visit [id number] Calin Boyd 1935 M Date Provider Department Center 10/19/2023 1596-SHASTA SELBY GREG [facility] No family history on file Level of Service:38964 IN OFFICE/OUTPATIENT ESTABLISHED MOD MDM 30-39 MIN Normal [facility] CBC AUTO DIFFon 12-18-2022 BASO # 0.1 103/ul Normal 0.0-0.1 [facility] Comment on above: Performed By: #### C BC #### [facility] [address] [address] [address] Dana Angulo Basophils/100 WBC (Bld) 0.8 % Normal 0.2-2.0 [facility] Comment on above: Performed By: #### C BC #### [facility] [address] [address] [address] Dana Angulo EO # 0.1 103/ul Normal 0.0-0.7 [facility] Comment on above: Performed By: #### C BC #### [facility] [address] [address] [address] Dana Angulo Eosinophils/100 WBC (Bld) 0.9 % Normal 0.9-7.0 [facility] Comment on above: Performed By: #### C BC #### [facility] [address] [address] [address] Dana Angulo Erythrocyte distribution width (RBC) [Ratio] 13.2 % Normal 11.0-15.0 [facility] Comment on above: Performed By: #### C BC #### [facility] [address] [place] [address] Dr. Dana Angulo Hematocrit (Bld) [Volume fraction] 37.1 % Critically low 42.0-54.0 [facility] Comment on above: Performed By: #### C BC #### [facility] [address] [place] [address] Dr. Dana Angulo Hemoglobin (Bld) [Mass/Vol] 12.1 g/dL Critically low 14.0-18.0 [facility] Comment on above: Performed By: #### C BC #### [facility] [address] [place] [address] Dr. Dana Angulo IG # 0.03 10e3/ul Normal 0.00-0.03 [facility] Comment on above: Performed By: #### C BC #### [facility] [address] [place] [address] Dr. Dana Angulo IG % 0.4 % Normal 0.0-0.5 [facility] Comment on above: Performed By: #### C BC #### [facility] [address] [place] [address] Dr. Dana Angulo LYMPH # 1.4 103/ul Normal 1.2-3.8 [facility] Comment on above: Performed By: #### C BC #### [facility] [address] [place] [address] Dr. Dana Angulo Lymphocytes/100 WBC (Bld) 19.0 % Critically low 20.5-60.0 [facility] Comment on above: Performed By: #### C BC #### [facility] [address] [place] [address] Dr. Dana Angulo MANUAL DIFF REQ NO Normal [facility] Comment on above: Performed By: #### C BC #### [facility] [address] [place] [address] Dr. Dana Angulo MCH (RBC) [Entitic mass] 30.6 pg Normal 25.9-34.0 [facility] Comment on above: Performed By: #### C BC #### [facility] [address] [address] [address] Dana Angulo MCHC (RBC) [Mass/Vol] 32.6 g/dL Normal 29.9-35.2 [facility] Comment on above: Performed By: #### C BC #### [facility] [address] [place] [address] Dr. Dana nAgulo MCV (RBC) [Entitic vol] 93.7 fL Normal 80.0-94.0 [facility] Comment on above: Performed By: #### C BC #### [facility] [address] [place] [address] Dr. Dana Angulo MONO # 0.5 103/ul Normal 0.3-0.8 [facility] Comment on above: Performed By: #### C BC #### [facility] [address] [place] [address] Dr. Dana Angulo Monocytes/100 WBC (Bld) 7.2 % Normal 1.7-12.0 [facility] Comment on above: Performed By: #### C BC #### [facility] [address] [place] [address] Dr. Dana Angulo NEUT # 5.4 103/ul Normal 1.4-6.5 [facility] Comment on above: Performed By: #### C BC #### [facility] [address] [place] [address] Dr. Dana Angulo Neutrophils/100 WBC (Bld) 71.7 % Normal 43.0-75.0 [facility] Comment on above: Performed By: #### C BC #### [facility] [address] [place] [address] Dr. Dana Angulo Platelet mean volume (Bld) [Entitic vol] 9.6 fL Normal 9.5-13.5 [facility] Comment on above: Performed By: #### C BC #### [facility] [address] [place] [address] Dr. Dana Angulo PLT 165 103/ul Normal 150-450 [facility] Comment on above: Performed By: #### C BC #### [facility] [address] [place] [address] Dr. Dana Angulo RBC 3.96 106/ul Critically low 4.70-6.10 [facility] Comment on above: Performed By: #### C BC #### [facility] [address] [place] [address] Dr. Dana Angulo WBC 7.5 103/ul Normal 4.0-11.0 [facility] Comment on above: Performed By: #### C BC #### [facility] [address] [place] [address] Dr. Dana Angulo ER URINE PROFILEon 3 Bilirubin Ql (U) Negative Normal NEGATIVE [facility] Comment on above: Performed By: #### Marino KENYON UMICRO #### [facility] [address] [place] [address] Dr. Dana Angulo Clarity (U) CLEAR Normal CLEAR [facility] Comment on above: Performed By: #### ANGELINA FRIENDRO #### [facility] [address] [place] [address] Dr. Dana Angulo Color (U) LT. YELLOW Normal YELLOW [facility] Comment on above: Performed By: #### ANGELINA FRIENDRO #### [facility] [address] [place] [address] Dr. Dana GÓMEZ A micrscopic examina tion will be performed if indicated. Normal [facility] Comment on above: Performed By: #### ANGELINA FRIENDRO #### [facility] [address] [place] [address] Dr. Dana Angulo Glucose Ql (U) Negative Normal NEGATIVE [facility] Comment on above: Performed By: #### Marino KENYON UMICRO #### [facility] [address] [place] [address] Dr. Dana Angulo Hemoglobin Ql (U) Negative Normal NEGATIVE [facility] Comment on above: Performed By: #### Marino KENYON UMICRO #### [facility] [address] [place] [address] Dr. Dana Angulo Ketones Ql (U) Negative Normal NEGATIVE [facility] Comment on above: Performed By: #### Marino KENYON UMICRO #### [facility] [address] [place] [address] Dr. Dana Angulo LEUKOCYTES TRACE Abnormal NEGATIVE [facility] Comment on above: Performed By: #### Marino KENYON UMICRO #### [facility] [address] [place] [address] Dr. Dana nAgulo Nitrite Ql (U) Negative Normal NEGATIVE [facility] Comment on above: Performed By: #### Marino KENYON UMICRO #### [facility] [address] [place] [address] Dr. Dana Angulo pH (U) 6.0 [pH] Normal 5-9 [facility] Comment on above: Performed By: #### Marino KENYON UMICRO #### [facility] [address] [place] [address] Dr. Dana Angulo SPEC GRAVITY 1.015 Normal 1.005-<=1.02 5 [facility] Comment on above: Performed By: #### Marino KENYON UMICRO #### [facility] [address] [place] [address] Dr. Dana Angulo UA PROTEIN Negative Normal NEGATIVE/ TRACE [facility] Comment on above: Performed By: #### Marino KENYON UMICRO #### [facility] [address] [place] [address] Dr. Dana Angulo UR MICRO IND INDICATED Normal [facility] Comment on above: Performed By: #### Marino KENYON UMICRO #### [facility] [address] [place] [address] Dr. Dana Angulo Urobilinogen Qn (U) 0.2 {Delia'U}/dL Normal 0.2 - 1.0 [facility] Comment on above: Performed By: #### Marino KENYON UMICRO #### [facility] [address] [place] [address] Dr. Dana Angulo LACTATE/LACTIC ACIDon 2022 Lactate [Moles/Vol] 1.1 mmol/L Normal 0.4-1.9 [facility] Comment on above: Performed By: #### L ACT #### [facility] [address] [place] [address] Dr. Dana Angulo LIPASEon 12-18-2022 Lipase [Catalytic activity/Vol] 68.0 U/L Critically low 73.0-393.0 [facility] Comment on above: Performed By: #### C BC #### [facility] [address] [place] [address] Dr. Dana Angulo OCC BLD IMMUNO SCREENon 11-30 OCCULT BLOOD Negative Normal NEGATIVE [facility] Comment on above: Performed By: #### H STROPN #### [facility] [address] [place] [address] Dr. Dana Angulo PROF 14(COMP METB)on 023 Albumin [Mass/Vol] 3.8 g/dL Normal 3.4-5.0 [facility] Comment on above: Performed By: #### C BC #### [facility] [address] [place] [address] Dr. Dana Angulo Albumin/Globulin [Mass ratio] 1.3 {ratio} Normal [facility] Comment on above: Performed By: #### C BC #### [facility] [address] [place] [address] Dr. Dana Angulo ALP [Catalytic activity/Vol] 70 U/L Normal 46-116 [facility] Comment on above: Performed By: #### C BC #### [facility] [address] [place] [address] Dr. Dana Angulo ALT [Catalytic activity/Vol] 22 U/L Normal 16-63 [facility] Comment on above: Performed By: #### C BC #### [facility] [address] [place] [address] Dr. Dana Angulo Anion gap [Moles/Vol] 13.5 mmol/L Normal [facility] Comment on above: Performed By: #### C BC #### [facility] [address] [place] [address] Dr. Dana Angulo AST [Catalytic activity/Vol] 25 U/L Normal 15-37 [facility] Comment on above: Performed By: #### C BC #### [facility] [address] [place] [address] Dr. Dana Angulo Bilirubin [Mass/Vol] 1.0 mg/dL Normal 0.2-1.0 [facility] Comment on above: Performed By: #### C BC #### [facility] [address] [place] [address] Dr. Dana Angulo Calcium [Mass/Vol] 9.7 mg/dL Normal 8.5-10.1 [facility] Comment on above: Performed By: #### C BC #### [facility] [address] [place] [address] Dr. Dana Angulo Chloride [Moles/Vol] 103 mmol/L Normal 98-107 [facility] Comment on above: Performed By: #### C BC #### [facility] [address] [place] [address] Dr. Dana Angulo CO2 [Moles/Vol] 25.1 mmol/L Normal 21.0-32.0 [facility] Comment on above: Performed By: #### C BC #### [facility] [address] [place] [address] Dr. Dana Angulo Creatinine [Mass/Vol] 1.07 mg/dL Normal 0.70-1.30 [facility] Comment on above: Performed By: #### C BC #### [facility] [address] [place] [address] Dr. Dana Angulo EGFR-AF TOGOLESE >60 Normal >=60 [facility] Comment on above: Performed By: #### C BC #### [facility] [address] [place] [address] Dr. Daan Angulo EGFR-NON AF TOGOLESE >60 Normal >=60 [facility] Comment on above: Performed By: #### C BC #### [facility] [address] [place] [address] Dr. Dana Angulo Globulin (S) [Mass/Vol] 3.0 g/dL Normal [facility] Comment on above: Performed By: #### C BC #### [facility] [address] [address] [address] Dnaa Angulo Glucose [Mass/Vol] 115 mg/dL Critically high 74-106 [facility] Comment on above: Performed By: #### C BC #### [facility] [address] [address] [address] Dana Angulo Potassium [Moles/Vol] 3.6 mmol/L Normal 3.5-5.1 [facility] Comment on above: Performed By: #### C BC #### [facility] [address] [address] [address] Dana Angulo Protein [Mass/Vol] 6.8 g/dL Normal 6.4-8.2 [facility] Comment on above: Performed By: #### C BC #### [facility] [address] [address] [address] Dana Angulo Sodium [Moles/Vol] 138 mmol/L Normal 136-145 [facility] Comment on above: Performed By: #### C BC #### [facility] [address] [address] [address] Dana Angulo Urea nitrogen [Mass/Vol] 39.0 mg/dL Critically high 7.0-18.0 [facility] Comment on above: Performed By: #### C BC #### [facility] [address] [address] [address] Dana Angulo Urea nitrogen/Creatinin e [Mass ratio] 36.4 mg/mg Normal [facility] Comment on above: Performed By: #### C BC #### [facility] [address] [address] [address] Dana Angulo PROTIMEon 12-18-2022 INR Coag (PPP) [Relative time] 2.15 {INR} Normal [facility] Comment on above: Performed By: #### P T, PTT #### [facility] [address] [address] [address] Dana Angulo INR GUIDELINES SEE BELOW Normal [facility] Comment on above: Result Comment: BETTINA RED INR: 2.0 - 3.0 CONDITIONS NOT LISTED BELOW 2.5 - 3.5 FOR PROSTHETIC HEART VALVE REPLACEMENT 2.5 - 3.5 RECURRENT THROMBOSIS Performed By: #### P T, PTT #### [facility] [address] [place] [address] Dr. Dana Angulo PT Coag (PPP) [Time] 21.8 s Critically high 9.0-11.6 [facility] Comment on above: Performed By: #### P T, PTT #### [facility] [address] [place] [address] Dr. Dana Angulo PTTon 12-18-2022 aPTT Coag (Bld) [Time] 35.3 s Normal 22.3-36.2 [facility] Comment on above: Performed By: #### P T, PTT #### [facility] [address] [place] [address] Dr. Dana Angulo TROPONIN, HIGH SENSITIVITYon 12-18-2022 HSTROP 37.2 pg/mL Normal 4.0-76.1 [facility] Comment on above: Result Comment: CUT- OFF POINTS HAVE BEEN ESTABLISHED BASED ON THE FOURTH UNIVERSAL DEFINITIONS OF MYOCARDIAL INFARCTION. THE UPPER REFERENCE LIMIT (URL) OF TROPONIN, DEFINED THE 99TH PERCENTILE OF cTnI DISTRIBUTION IN A REFERENCE POPULATION, HAS BEEN CONFIRMED THE DECISION THRESHOLD FOR AL DIAGNOSIS. Performed By: #### H STROPN #### [facility] [address] [place] [address] Dr. Dana Angulo HSTROP 39.8 pg/mL Normal 4.0-76.1 [facility] Comment on above: Result Comment: CUT- OFF POINTS HAVE BEEN ESTABLISHED BASED ON THE FOURTH UNIVERSAL DEFINITIONS OF MYOCARDIAL INFARCTION. THE UPPER REFERENCE LIMIT (URL) OF TROPONIN, DEFINED THE 99TH PERCENTILE OF cTnI DISTRIBUTION IN A REFERENCE POPULATION, HAS BEEN CONFIRMED THE DECISION THRESHOLD FOR AL DIAGNOSIS. Performed By: #### H STROPN #### [facility] [address] [place] [address] Dr. Dana Angulo URINE MICROSCOPIC ONLYon BACTERIA NONE SEEN Normal NONE SEEN [facility] Comment on above: Performed By: #### HUMBERTO FRIEND #### [facility] [address] [place] [address] Dr. Dana Angulo Bacteria identified Cx Nom (U) NOT INDICATED Normal [facility] Comment on above: Performed By: #### Marino KENYON UMICRO #### [facility] [address] [place] [address] Dr. Dana Angulo CAST NONE SEEN Normal NONE SEEN [facility] Comment on above: Performed By: #### E KOSTAS UMICRO #### [facility] [address] [place] [address] Dr. Dana Angulo Crystals LM Nom (Urine sed) NONE SEEN Normal NONE SEEN [facility] Comment on above: Performed By: #### Marino KENYON UMICRO #### [facility] [address] [place] [address] Dr. Dana Angulo Epithelial cells LM Ql (Urine sed) FEW Abnormal NONE SEEN /RARE [facility] Comment on above: Performed By: #### Marino KENYON UMICRO #### [facility] [address] [place] [address] Dr. Dana Angulo MUCOUS NONE SEEN Normal NONE SEEN [facility] Comment on above: Performed By: #### Marino KENYON UMICRO #### [facility] [address] [place] [address] Dr. Dana Angulo RBC NONE SEEN Abnormal 0-2 [facility] Comment on above: Performed By: #### Marino KENYON UMICRO #### [facility] [address] [place] [address] Dr. Dana Angulo WBC 2-5 Abnormal NONE SEEN [facility] Comment on above: Performed By: #### Marino KENYON UMICRO #### [facility] [address] [place] [address] Dr. Dana Angulo US SINGLE QUAD RT [...] extrarenal pelvis. No hydronephrosis. Electronically authenticated by: DOMIINQUE JAUREGUI Date: 2022-12-18 13:05 Normal [facility] BNPon 11-11-2022 Natriuretic peptide B (Bld) [Mass/Vol] 2364.0 pg/mL Critically high <=1,800.0 [facility] Comment on above: Performed By: #### H STROPN #### [facility] [address] [place] [address] Dr. Dana Angulo BUNon 11-11-2022 Urea nitrogen [Mass/Vol] 18.0 mg/dL Normal 7.0-18.0 [facility] Comment on above: Performed By: #### H STROPN #### [facility] [address] [address] Dr. Dana Angulo CBC AUTO DIFFon 11-11-2022 BASO # 0.0 103/ul Normal 0.0-0.1 [facility] Comment on above: Performed By: #### C BC #### [facility] [address] [address] [address] Dana Angulo Basophils/100 WBC (Bld) 0.6 % Normal 0.2-2.0 [facility] Comment on above: Performed By: #### C BC #### [facility] [address] [address] [address] Dana Angulo EO # 0.1 103/ul Normal 0.0-0.7 [facility] Comment on above: Performed By: #### C BC #### [facility] [address] [place] [address] Dr. Dana Angulo Eosinophils/100 WBC (Bld) 1.3 % Normal 0.9-7.0 [facility] Comment on above: Performed By: #### C BC #### [facility] [address] [place] [address] Dr. Dana Angulo Erythrocyte distribution width (RBC) [Ratio] 13.9 % Normal 11.0-15.0 [facility] Comment on above: Performed By: #### C BC #### [facility] [address] [place] [address] Dr. Dana Angulo Hematocrit (Bld) [Volume fraction] 36.2 % Critically low 42.0-54.0 [facility] Comment on above: Performed By: #### C BC #### [facility] [address] [place] [address] Dr. Dana Angulo Hemoglobin (Bld) [Mass/Vol] 11.4 g/dL Critically low 14.0-18.0 [facility] Comment on above: Performed By: #### C BC #### [facility] [address] [place] [address] Dr. Dana Angulo IG # 0.02 10e3/ul Normal 0.00-0.03 [facility] Comment on above: Performed By: #### C BC #### [facility] [address] [place] [address] Dr. Dana Angulo IG % 0.3 % Normal 0.0-0.5 [facility] Comment on above: Performed By: #### C BC #### [facility] [address] [place] [address] Dr. Dana Angulo LYMPH # 1.4 103/ul Normal 1.2-3.8 [facility] Comment on above: Performed By: #### C BC #### [facility] [address] [place] [address] Dr. Dana Angulo Lymphocytes/100 WBC (Bld) 19.8 % Critically low 20.5-60.0 [facility] Comment on above: Performed By: #### C BC #### [facility] [address] [place] [address] Dr. Dana Angulo MANUAL DIFF REQ NO Normal [facility] Comment on above: Performed By: #### C BC #### [facility] [address] [place] [address] Dr. Dana Angulo MCH (RBC) [Entitic mass] 30.9 pg Normal 25.9-34.0 [facility] Comment on above: Performed By: #### C BC #### [facility] [address] [place] [address] Dr. Dana Angulo MCHC (RBC) [Mass/Vol] 31.5 g/dL Normal 29.9-35.2 [facility] Comment on above: Performed By: #### C BC #### [facility] [address] [place] [address] Dr. Dana Angulo MCV (RBC) [Entitic vol] 98.1 fL Critically high 80.0-94.0 [facility] Comment on above: Performed By: #### C BC #### [facility] [address] [place] [address] Dr. Dana Angulo MONO # 0.5 103/ul Normal 0.3-0.8 [facility] Comment on above: Performed By: #### C BC #### [facility] [address] [place] [address] Dr. Dana Angulo Monocytes/100 WBC (Bld) 6.9 % Normal 1.7-12.0 [facility] Comment on above: Performed By: #### C BC #### [facility] [address] [place] [address] Dr. Dana Angulo NEUT # 5.1 103/ul Normal 1.4-6.5 [facility] Comment on above: Performed By: #### C BC #### [facility] [address] [place] [address] Dr. Dana Angulo Neutrophils/100 WBC (Bld) 71.1 % Normal 43.0-75.0 [facility] Comment on above: Performed By: #### C BC #### [facility] [address] [address] [address] Dana Angulo Platelet mean volume (Bld) [Entitic vol] 9.4 fL Critically low 9.5-13.5 [facility] Comment on above: Performed By: #### C BC #### [facility] [address] [place] [address] Dr. Dana Angulo PLT 164 103/ul Normal 150-450 [facility] Comment on above: Performed By: #### C BC #### [facility] [address] [address] [address] Dana Angulo RBC 3.69 106/ul Critically low 4.70-6.[address] [facility] Comment on above: Performed By: #### C BC #### [facility] [address] [place] [address] Dr. Dana Angulo WBC 7.1 103/ul Normal 4.0-11.0 [facility] Comment on above: Performed By: #### C BC #### [facility] [address] [place] [address] Dr. Dana Angulo CREATININEon 11-11-2022 Creatinine [Mass/Vol] 1.10 mg/dL Normal 0.70-1.30 [facility] Comment on above: Performed By: #### H STROPN #### [facility] [address] [place] [address] Dr. Dana Angulo EGFR-AF TOGOLESE >60 Normal >=60 [facility] Comment on above: Result Comment: Prev iously reported as: >77 On 11/11/2022 10:45 By BL3 Previously reported as: (blank) On 11/11/2022 10:44 By BL3 Performed By: #### H STROPN #### [facility] [address] [place] [address] Dr. Dana Angulo EGFR-NON AF TOGOLESE >60 Normal >=60 [facility] Comment on above: Result Comment: Prev iously reported as: >64 On 11/11/2022 10:45 By BL3 Previously reported as: (blank) On 11/11/2022 10:44 By BL3 Performed By: #### H STROPN #### [facility] [address] [address] [address] Dana Angulo CULTURE URINEon 11-11-2022 CULTURE URINE Culture Observations : NO GROWTH. Normal [facility] Comment on above: Performed By: #### C BC #### [facility] [address] [address] [address] Dana Angulo ELECTROLYTESon 11-11-2022 Anion gap [Moles/Vol] 12.7 mmol/L Normal [facility] Comment on above: Performed By: #### H STROPN #### [facility] [address] [address] [address] Dana Angulo Chloride [Moles/Vol] 103 mmol/L Normal 98-107 [facility] Comment on above: Performed By: #### H STROPN #### [facility] [address] [address] [address] Dana Angulo CO2 [Moles/Vol] 29.0 mmol/L Normal 21.0-32.0 [facility] Comment on above: Performed By: #### H STROPN #### [facility] [address] [address] [address] Dana Angulo Potassium [Moles/Vol] 4.7 mmol/L Normal 3.5-5.1 [facility] Comment on above: Performed By: #### H STROPN #### [facility] [address] [address] [address] Dana Angulo Sodium [Moles/Vol] 140 mmol/L Normal 136-145 [facility] Comment on above: Performed By: #### H STROPN #### [facility] [address] [address] [address] Dana Angulo GLYCOHEMOGLOBIN A1Con 2021 ADA RECOMMENDATION SEE BELOW Normal [facility] Comment on above: Result Comment: ADA RECOMMENDED LIMIT 4.0 - 6.0 ADA THERAPEUTIC TARGET < 7.0 ACTION SUGGESTED > 7.0 Performed By: #### H STROPN #### [facility] [address] [address] [address] Dana Angulo Glucose [Mass/Vol] 120 mg/dL Normal [facility] Comment on above: Performed By: #### H STROPN #### [facility] [address] [address] [address] Dana Angulo HbA1c (Bld) [Mass fraction] 5.8 % Normal 4.5-6.2 [facility] Comment on above: Performed By: #### H STROPN #### [facility] [address] [address] [address] Dana Angulo LIPID PROFILEon 11-11-2022 CHOL-HDL RATIO NORM SEE BELOW Normal [facility] Comment on above: Result Comment: 3.3 - 4.4 LOW RISK 4.4 - 7.1 AVERAGE RISK 7.1 - 11.0 MODERATE RISK >11.0 HIGH RISK Performed By: #### H STROPN #### [facility] [address] [address] [address] Dana Angulo Cholesterol [Mass/Vol] 91 mg/dL Normal <=200 [facility] Comment on above: Performed By: #### H STROPN #### [facility] [address] [address] [address] Dana Angulo Cholesterol in HDL [Mass/Vol] 49 mg/dL Normal 40-60 [facility] Comment on above: Performed By: #### H STROPN #### [facility] [address] [address] [address] Dana Angulo Cholesterol in LDL [Mass/Vol] 29.4 mg/dL Normal [facility] Comment on above: Performed By: #### H STROPN #### [facility] [address] [address] [address] Dana Angulo Cholesterol.total/ Cholesterol in HDL [Mass ratio] 1.9 {ratio} Normal [facility] Comment on above: Performed By: #### H STROPN #### [facility] [address] [address] [address] Dana Angulo HDL NORMAL > or = 60 mg/dl - LO W CARDIOVASCULAR RISK <40 mg/dl - HIGH CARDIOVASCULAR RISK Normal [facility] Comment on above: Performed By: #### H STROPN #### [facility] [address] [address] [address] Dana Angulo LDL CALC NORMAL SEE BELOW Normal [facility] Comment on above: Result Comment: <100 mg/dl OPTIMAL 100 - 129 mg/dl NEAR OR ABOVE OPTIMAL 130 - 159 mg/dl BORDERLINE HIGH 160 - 189 mg/dl HIGH >190 mg/dl VERY HIGH Performed By: #### H STROPN #### [facility] [address] [address] [address] Dana Angulo Triglyceride [Mass/Vol] 63 mg/dL Normal <=150 [facility] Comment on above: Performed By: #### H STROPN #### [facility] [address] [address] [address] Dana Angulo VLDL CALC 12.6 mg/dL Normal [facility] Comment on above: Performed By: #### H STROPN #### [facility] [address] [address] [address] Dana Angulo LIVER PROFILEon 11-11-2022 Albumin [Mass/Vol] 3.7 g/dL Normal 3.4-5.0 [facility] Comment on above: Performed By: #### H STROPN #### [facility] [address] [place] [address] Dr. Dana Angulo Albumin/Globulin [Mass ratio] 1.2 {ratio} Normal [facility] Comment on above: Performed By: #### H STROPN #### [facility] [address] [address] [address] Dana Angulo ALP [Catalytic activity/Vol] 68 U/L Normal 46-116 [facility] Comment on above: Performed By: #### H STROPN #### [facility] [address] [address] [address] Dana Angulo ALT [Catalytic activity/Vol] 20 U/L Normal 16-63 [facility] Comment on above: Performed By: #### H STROPN #### [facility] [address] [address] [address] Dana Angulo AST [Catalytic activity/Vol] 21 U/L Normal 15-37 [facility] Comment on above: Performed By: #### H STROPN #### [facility] [address] [address] [address] Dana Angulo BILI, CONJUGATED 0.3 mg/dL Critically high 0.0-0.2 [facility] Comment on above: Performed By: #### H STROPN #### [facility] [address] [place] [address] Dr. Dana Angulo Bilirubin [Mass/Vol] 0.9 mg/dL Normal 0.2-1.0 [facility] Comment on above: Performed By: #### H STROPN #### [facility] [address] [place] [address] Dr. Dana Angulo Globulin (S) [Mass/Vol] 3.1 g/dL Normal [facility] Comment on above: Performed By: #### H STROPN #### [facility] [address] [place] [address] Dr. Dana Angulo Protein [Mass/Vol] 6.8 g/dL Normal 6.4-8.2 [facility] Comment on above: Performed By: #### H STROPN #### [facility] [address] [place] [address] Dr. Dana Angulo TSHon 11-11-2022 TSH 3.426 uIU/mL Normal 0.358-3.740 [facility] Comment on above: Performed By: #### H STROPN #### [facility] [address] [place] [address] Dr. Dana Angulo UA (CLEAN/CATCH) SHARED SERVICES MANAGER/MICRO I F IND.on 11-11-2022 Bilirubin Ql (U) Negative Normal NEGATIVE [facility] Comment on above: Performed By: #### U ANGELINA SCHERERRO #### [facility] [address] [place] [address] Dr. Dana Angulo Clarity (U) CLEAR Normal CLEAR [facility] Comment on above: Performed By: #### U ACSREGGIE UMICRO #### [facility] [address] [place] [address] Dr. Dana Angulo Color (U) YELLOW Normal YELLOW [facility] Comment on above: Performed By: #### U ACSIND, UMICRO #### [facility] [address] [address] [address] Dana Angulo Glucose Ql (U) Negative Normal NEGATIVE [facility] Comment on above: Performed By: #### U ACSIND, UMICRO #### [facility] [address] [address] [address] Dana Angulo Hemoglobin Ql (U) Negative Normal NEGATIVE [facility] Comment on above: Performed By: #### U ACSIND, UMICRO #### [facility] [address] [address] [address] Dana Angulo Ketones Ql (U) TRACE Abnormal NEGATIVE [facility] Comment on above: Performed By: #### U ACSIND, UMICRO #### [facility] [address] [place] [address] Dr. Dana Angulo LEUKOCYTES SMALL Abnormal NEGATIVE [facility] Comment on above: Performed By: #### U ACSIND, UMICRO #### [facility] [address] [address] [address] Dana Angulo Nitrite Ql (U) Negative Normal NEGATIVE [facility] Comment on above: Performed By: #### U ACSIND, UMICRO #### [facility] [address] [address] [address] Dana Angulo pH (U) 6.0 [pH] Normal 5-9 [facility] Comment on above: Performed By: #### U ACSIND, UMICRO #### [facility] [address] [address] [address] Dana Angulo SPEC GRAVITY 1.015 Normal 1.005-<=1.02 5 [facility] Comment on above: Performed By: #### U ACSIND, UMICRO #### [facility] [address] [place] [address] Dr. Dana Angulo UA PROTEIN TRACE Normal NEGATIVE/ TRACE [facility] Comment on above: Performed By: #### U ACSIND, UMICRO #### [facility] [address] [address] [address] Dana Angulo UR MICRO IND INDICATED Normal [facility] Comment on above: Performed By: #### U ACSREGGIE UMICRO #### [facility] [address] [place] [address] Dr. Dana Angulo Urobilinogen Qn (U) 1.0 {Delia'U}/dL Normal 0.2 - 1.0 [facility] Comment on above: Performed By: #### U ACSREGGIE UMICRO #### [facility] [address] [place] [address] Dr. Daan Angulo URINE MICROSCOPIC ONLYon BACTERIA TRACE Abnormal NONE SEEN [facility] Comment on above: Performed By: #### U ACSREGGIE UMICRO #### [facility] [address] [place] [address] Dr. Dana Angulo Bacteria identified Cx Nom (U) INDICATED Normal [facility] Comment on above: Performed By: #### U ACSREGGIE UMICRO #### [facility] [address] [place] [address] Dr. Dana Angulo CAST SEEN Abnormal NONE SEEN [facility] Comment on above: Performed By: #### U ACSREGGIE UMICRO #### [facility] [address] [place] [address] Dr. Dana Angulo Crystals LM Nom (Urine sed) NONE SEEN Normal NONE SEEN [facility] Comment on above: Performed By: #### U ACSREGGIE UMICRO #### [facility] [address] [place] [address] Dr. Dana Angulo Epithelial cells LM Ql (Urine sed) RARE Normal NONE SEEN /RARE [facility] Comment on above: Performed By: #### U ACSREGGIE UMICRO #### [facility] [address] [place] [address] Dr. Dana Angulo MUCOUS NONE SEEN Normal NONE SEEN [facility] Comment on above: Performed By: #### U ACSREGGIE UMICRO #### [facility] [address] [place] [address] Dr. Dana Angulo RBC 2-5 Abnormal 0-2 [facility] Comment on above: Performed By: #### U ACSREGGIE, UMICRO #### [facility] [address] [place], [place] [address] Dr. Dana Angulo WBC 2-5 Abnormal NONE SEEN [facility] Comment on above: Performed By: #### U ACSREGGIE, UMICRO #### [facility] [address] [place], [place] [address] Dr. Dana Angulo VITAMIN D 25 OHon 11-11-2022 VIT D 25-OH 30.2 ng/mL Normal [facility] Comment on above: Performed By: #### C BC #### [facility] [address] [address] [address] Dana Angulo VIT D RANGES SEE BELOW Normal [facility] Comment on above: Result Comment: <20 ng/mL Vit D deficient 20 - <30 ng/mL Vit D insufficient 30 - 100 ng/mL Vit D sufficient >100 ng/mL Potential Toxicity Performed By: #### C BC #### [facility] [address] [address] [address] Dana Angulo Cardiovascular Lab Reporton 06-25-2019 Cardiovascular Lab Report [facility] Patient Name: [facility] Alvin Sanchez MR #: [id number] Department of Physician: Geetha Blankenship M.D. Division of Service Date: 06/24/2019 Cardiology Birthdate: 1935 Adult Cardiovascular Room #: [address] [address] Cardiovascular Laboratory Report FINAL IMPRESSION: 1. Normal right and left ventricular filling pressures. 2. Preserved cardiac output and cardiac index. 3. Mild pulmonary artery hypertension. 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 He has been experiencing shortness of breath [...] modified Seldinger technique and ultrasound guidance, a 5-Salvadorean micropuncture was placed in right internal jugular vein. This was upsized to a regular 6-Salvadorean pinnacle sheath and a 6-Salvadorean Jackson was used for right heart catheterization. [...] Rashard/Perlita Lucas M.D. Date Trans: 06/25/2019 05:12 Colleen [id number] cc: Rio Lal D.O. [address] [facility] [address] [place] [facility] Neurosurgery Office/Clinic Kodak saul 04-13-2018 Neurosurgery Office/Clinic Note Chief Complaint [...] with bilateral leg pain. Low back: daily, 3/10, activity dependent Bilateral legs: lateral thigh to [...] left neural foraminal narrowing.Electronically signed by O Arsalan dexter MD 04/13/18 15:39 EDT Normal [facility] CT Spine Lumbar w/ Contrasto n [...] Further degenerative changes are detailed above.Radiation Dose Estimate:CTDI(mGy):0.48953 0 / / / kVp:120.809206 / mAs:0.454371 / / / DLP(mGy-cm):5.027679Hwzn Part:CTDI(mGy):28.996947 / / / kVp:120.130679 / mAs:294.825417 / / / DLP(mGy-cm):632.700102Ixmm Part: Final Dictated by: Naldo Aguilar MD, MDicttiffanie DT/TM: 04.06.2018 11:34 amSigned by: Naldo Aguilar MD MSigned (Electronic Signature): 04.06.2018 3:49 pmTranscribed DT/TM: 04.06.2018 1:29 pm(If Report Is Signed, Electronically Signed in Other Vendor System) Normal [facility] Inpatient Clinical Summaryon 04-06-2018 Inpatient Clinical Summary [facility] [place] [address] [address]Cwsakeam SummaryPerson InformationName: Alvin Boyd Age: 82 Years : 1935Sex: Male PCP: Rio Lal DO Status: PCP: [id number]:White Ethnicity:Not or Language:EnglishMRN: [id number] Visit Id: Reason:stenosis, bilateral leg pain Speciality: Acuity:Enc Type: Outpatient in a Bed Med Service: Radiology-Diagnostic ImagingArrival:04/06/2018 08:16:35 Discharge: Dispo Type:Address:[address] [place] [id number]:Discharged To:Home Treatments:Devices/Equipme nt:Professional Skilled Services:Special Services and [...] 14:30:00 04/14/2018 15:00:00 Confirmed Normal [facility] PTon 04-06-2018 INR Coag RelTime (PPP) 1.1 {INR} Normal <=3.5 [facility] Comment on above: Result Comment: INR has no normal range. INR Therapeutic range is:2.0-3.0 (AF, CVA, TIAs, DVT prophylaxis, acute DVT)2.5-3.5 ([facility] heart valves, recurrent thrombosis/emboli) Performed By: #### P TINR ####[place] [address] Prothrombin time (PT) Coag time (PPP) 11.3 s Normal 9.1-11.9 [facility] Comment on above: Performed By: #### P TINR ####[place] [id number] PTTon 04-06-2018 aPTT 24.0 s Normal 21.0-28.8 [facility] Comment on above: Performed By: #### P TT ####[place] [id number] Platelet Counton 04-06-2018 Platelets 135 x10*3/mcL Low 150-350 [facility] Comment on above: Performed By: #### P LTS ####[place] [id number] XR Myelography Lumbosacral S pineon 04-06-2018 XR [...] lumbar myelogram. Final Dictated by: Naldo Aguilar MD DT/TM: 04/06/2018 11:15 amSigned by: Naldo Aguilar MD (Electronic Signature): 04/06/2018 11:16 am(If Report Is Signed, Electronically Signed in Other Vendor System) Normal [facility] XR Spine Lumbosacral 2 or 3 [...] acute findings. 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 Upon completion [...] L45 moderate canal stenosisElectronically signed by F Dragan swenson CNP 03/29/18 12:41 EDT Normal [facility] Pain Management Office/Clini c Noteon 03-16-2018 [...] Injections: 11-09-17 Date Surgery: n/a Frequency PT: [id number] Effective PT: not much help Effective Injections: [...] available.Electronically signed by A arelis DIAZ Myrna Baez 03/16/18 13:37 EDT Normal [facility] Pain Management Office/Clini c Noteon 02-19-2018 [...] Injections: 11-09-17 Date Surgery: n/a Frequency PT: [id number] Effective PT: not much help Effective Injections: [...] signed by Rashard infante CNP Myrna Gardnere 02/19/18 12:56 EDT Normal [facility] History and Physicalon 01-13 History and [...] MD 01/13/18 15:09 EST Normal [facility] Pain Management Procedure No glenn 01-13-2018 [...] MD 01/13/18 15:09 EST Normal [facility] Ambulatory Patient Education on 01-06-2018 Ambulatory Patient Education Patient Education MaterialsName: Alvin Boyd Current Date: 01/06/2018 15:32:58 [place] 1935 following sheet(s) are the Patient Education [...] the next day. You must have a tour bus driver/guide that will wait in the Pain Management [...] procedure: Please arrive at: Please check in at:Scroll Saw Operator Desk in the Pain Management [id number] [place] [address], 3rd floor [facility] Room at [address]*Due to the sedation given for the procedure, you will not be permitted to drive until the following day. For this reason, you will need to bring a tour bus driver/guide to stay with you and drive you [...] Hibiclens (a medicated soap) prior to your surgery.*[place] teeth, rinse with water, but do not swallow.*Please wear comfortable clothing, without metal zippers or snaps. Do not wear contact lenses. Do wear your hearing aid. Please leave all jewelry and valuables at home; you may wear your wedding ring.*Please note that due to limited space, your family member/tour bus driver/guide will need to wait in the waiting area while you are in the procedure area. Absolutely no children should attend an appointment for an injection.*All prescription refills must be requested in advance. No prescription refills requested on the day of a procedure will be available until at least 3 business days later.*If your procedure is done in [place], you will be receiving a statement from [facility] for the professional (physician's) billing fees and for the technical (hospital's) fees and a separate statement for the anesthesia provider. If your procedure is done in [place], you will be receiving a statement from [facility] for professional (physician's) billing fees, technical [...] or concerns, please contact the appropriate office:[facility] ([place] office) [phone] [facility] ([place] office) [phone] follow up appointment is scheduled for:[facility] [facility], 3rd floor [facility], [facility] [address], [address], [facility] [address], 2nd floor clinic, [address]?WHAT TO EXPECT AFTER THE PROCEDURE:Please note [...] increase pain. (for example, bending, twisting, walking, aeronautical engineering officer).Try to avoid pain medication or sleeping during [...] call the office immediately if noted.Contact stimulator mortician supplies sales representative with questions regarding stimulator use.(see [...] and call office immediately if noted.Contact stimulator mortician supplies sales representative with questions regarding stimulator use.(see [...] drainage and call immediately if noted.Contact stimulator mortician supplies sales representative with questions regarding stimulator use.(see rep card) Normal [facility] Management Office/Clini c Noteon 01-06-2018 [...] PT: 01/16 Date Injections: 11-09-17 Frequency PT: [id number] Effective PT: not much help Effective Injections: [...] qualifying data available.Electronically signed by Rashard infante CNPMyrna 01/06/18 15:15 EST Normal [facility] Management Office/Clini c Noteon 11-09-2017 [...] data available.Electronically signed by Johnathan Guzman MD 11/09/17 09:27 EST Normal [facility] Procedure Noteon 11-09-2017 Procedure Note PROCEDURE: [...] signed by Johnathan Guzman MD 11/09/17 09:36 [facility] Normal [facility] Ambulatory Patient Education on 10-14-2017 Ambulatory [...] procedure: Please arrive at: Please check in at:Scroll Saw Operator Desk in the Pain Management [id number] [place] [address], 3rd floor [facility] [place]ception Desk inside the Emergency Room at [address]*Due to the sedation given for the procedure, you will not be permitted to drive until the following day. For this reason, you will need to bring a tour bus driver/guide to stay with you and drive you [...] Hibiclens (a medicated soap) prior to your surgery.*[place] teeth, rinse with water, but do not swallow.*Please wear comfortable clothing, without metal zippers or snaps. Do not wear contact lenses. Do wear your hearing aid. Please leave all jewelry and valuables at home; you may wear your wedding ring.*Please note that due to limited space, your family member/tour bus driver/guide will need to wait in the waiting area while you are in the procedure area. Absolutely no children should attend an appointment for an injection.*All prescription refills must be requested in advance. No prescription refills requested on the day of a procedure will be available until at least 3 business days later.*If your procedure is done in [place], you will be receiving a statement from [facility] for the professional (physician's) billing fees and for the technical (hospital's) fees and a separate statement for the anesthesia provider. If your procedure is done in [place], you will be receiving a statement from [facility] for professional (physician's) billing fees, technical [...] questions or concerns, please contact the appropriate office:[facility] ([place] office) [phone] [facility] ([place] office) [phone] follow up appointment is scheduled for:AT:[facility] [address], 3rd floor [facility], [facility] [address], [address], [facility] [address] [facility], 2nd floor clinic, [facility] [address] [place] [address]?WHAT TO EXPECT AFTER THE PROCEDURE:Please note the [...] increase pain. (for example, bending, twisting, walking, aeronautical engineering officer).Try to avoid pain medication or sleeping during [...] call the office immediately if noted.Contact stimulator mortician supplies sales representative with questions regarding stimulator use.(see [...] and call office immediately if noted.Contact stimulator mortician supplies sales representative with questions regarding stimulator use.(see rep card)Spinal Cord Stimulator Implant- *Dr Swensno only*Take bandage off 48 hrs after surgery then can shower when bandage off. Only sponge bath until bandage is taken off.No submerging in water for 7 days after surgery.No bending, twisting or lifting for 6-8 weeks or as directed per your doctor.No driving with device in ?on? position.Monitor temperature and procedure site specifically for redness, yellow/green drainage and call immediately if noted.Contact stimulator mortician supplies sales representative with questions regarding stimulator use.(see rep card)Nerve Root InjectionThe nerve root injection is a procedure where a local anesthetic and steroid solution are administered near the nerve as it exits the spinal canal. This is done under fluoroscopy (watching under live x-ray) to deliver the drug to the precise location.Am I a candidate for a nerve root injection?At [facility], the provider examining you will decide [...] procedure. You are required to have a tour bus driver/guide remain in the facility before and during [...] morning of the procedure. Normal [facility] Office/Clini c Noteon 10-14-2017 [...] Chiropractor: 11/2016 Date PT: 01/16 Frequency PT: [id number] Effective PT: not much help Comments TENS: [...] Myrna Reyes CNP 10/14/17 11:44 EST Normal [facility] History and Physicalon 09-09 History and [...] available.Electronically signed by Betsey smallwood MD, Johnathan 09/09/17 11:17 EDT Normal [facility] Comment on above: Order Comment: This [...] MD 09/09/17 11:20 EDT Normal [facility] Procedure Noteon 09-09-2017 Procedure Note PROCEDURE: [...] up as per treatment plan.Electronically signed by Betsey smallwood MD, Johnathan 09/09/17 11:21 EDT Normal [facility] History and Physicalon 08-26 History and [...] data available.Electronically signed by Johnathan Guzman MD 08/26/17 14:38 EDT Normal [facility] History and Physical History of Present [...] data available.Electronically signed by Johnathan Guzman MD 08/26/17 15:42 EDT Normal [facility] Procedure Noteon 08-26-2017 Procedure Note PROCEDURE: [...] plan.Electronically signed by B Johnathan smallwood MD 08/26/17 15:42 EDT Normal [facility] Ambulatory Patient Education on 07-29-2017 Ambulatory Patient Education Patient Education MaterialsName: Alvin Boyd Current Date: 07/29/2017 14:05:41 [place] 1935 following sheet(s) are the Patient Education Leaflets for Alvin Boydaticaleb Name:You are scheduled for a:*Please allow up to 2 hours for your appointment. Late arrivals may result in delay or postponement of procedure.Date/Time of procedure: Please arrive at: Date/Time of procedure: Please arrive at: Please check in at:Scroll Saw Operator Desk in the Pain Management [id number], 3rd floor [facility] [place]Reception Desk inside the Emergency Room at [place] [address], [place]*Due to the sedation given for the procedure, you will not be permitted to drive until the following day. For this reason, you will need to bring a tour bus driver/guide to stay with you and drive you [...] Hibiclens (a medicated soap) prior to your surgery.*[place] teeth, rinse with water, but do not swallow.*Please wear comfortable clothing, without metal zippers or snaps. Do not wear contact lenses. Do wear your hearing aid. Please leave all jewelry and valuables at home; you may wear your wedding ring.*Please note that due to limited space, your family member/tour bus driver/guide will need to wait in the waiting area while you are in the procedure area. Absolutely no children should attend an appointment for an injection.*All prescription refills must be requested in advance. No prescription refills requested on the day of a procedure will be available until at least 3 business days later.*If your procedure is done in [place], you will be receiving a statement from [facility] for the professional (physician's) billing fees and for the technical (hospital's) fees and a separate statement for the anesthesia provider. If your procedure is done in [place], you will be receiving a statement from [facility] for professional (physician's) billing fees, technical [...] questions or concerns, please contact the appropriate office:[facility] ([place] office) [phone] [facility] ([place] office) [phone] follow up appointment is scheduled for:AT:[facility] [address] [facility] [facility] [address], 3rd floor [facility], [facility] [address], [address], [address], 2nd floor clinic, [address]?WHAT TO EXPECT AFTER THE PROCEDURE:Please note [...] increase pain. (for example, bending, twisting, walking, aeronautical engineering officer).Try to avoid pain medication or sleeping during [...] call the office immediately if noted.Contact stimulator mortician supplies sales representative with questions regarding stimulator use.(see [...] and call office immediately if noted.Contact stimulator mortician supplies sales representative with questions regarding stimulator use.(see [...] drainage and call immediately if noted.Contact stimulator mortician supplies sales representative with questions regarding stimulator use.(see [...] sedation. You are required to have a tour bus driver/guide remain in the facility before and during the procedure, then drive you home following the procedure.What should I expect after the procedure?You are required to have a tour bus driver/guide remain in the waiting room of [facility] during the procedure and drive you home [...] your other diabetic medications. Normal [facility] Management Office/Clini c Noteon 07-29-2017 [...] Chiropractor: 11/2016 Date PT: 01/16 Frequency PT: [id number] Effective PT: not much help Comments TENS: [...] qualifying data available.Electronically signed by Rashard infante CNPMyrna 07/29/17 13:55 EDT Normal [facility] History and Physicalon 06-29 History and [...] Johnathan smallwood MD 06/29/17 13:18 EDT Normal [facility] Procedure Noteon 06-29-2017 Procedure Note PROCEDURE: [...] The patient was turned back onto the gurney and taken to recovery in stable condition to be discharged per criteria.Electronically signed by Johnathan Guzman MD 06/29/17 14:34 EDT Normal [facility] History and Physicalon 06-15 History and [...] MD 06/15/17 16:22 EDT Normal [facility] Procedure Noteon 06-15-2017 Procedure Note PROCEDURE: [...] The patient was turned back onto the gurney and taken to recovery in stable condition to be discharged per criteria.Electronically signed by B Johnathan smallwood MD 06/15/17 16:23 EDT [facility] Ambulatory Patient Education on 05-27-2017 Ambulatory Patient Education Patient Education MaterialsName: Alvin Boyd Current Date: 05/27/2017 10:03:36 [facility] 1935 following sheet(s) are the Patient Education [...] have a lot of pain?Your physician at [facility] will do everything possible [...] procedure. You are required to have a tour bus driver/guide remain in the facility before and during [...] procedure: Please arrive at: Please check in at:Scroll Saw Operator Desk in the Pain Management [id number] [place] [address], 3rd floor [facility] [place]Reception Desk inside the Emergency Room at [address]*Due to the sedation given for the procedure, you will not be permitted to drive until the following day. For this reason, you will need to bring a tour bus driver/guide to stay with you and drive you [...] Hibiclens (a medicated soap) prior to your surgery.*[place] teeth, rinse with water, but do not swallow.*Please wear comfortable clothing, without metal zippers or snaps. Do not wear contact lenses. Do wear your hearing aid. Please leave all jewelry and valuables at home; you may wear your wedding ring.*Please note that due to limited space, your family member/tour bus driver/guide will need to wait in the waiting area while you are in the procedure area. Absolutely no children should attend an appointment for an injection.*All prescription refills must be requested in advance. No prescription refills requested on the day of a procedure will be available until at least 3 business days later.*If your procedure is done in [place], you will be receiving a statement from [facility] for the professional (physician's) billing fees and for the technical (hospital's) fees and a separate statement for the anesthesia provider. If your procedure is done in [place], you will be receiving a statement from [facility] for professional (physician's) billing fees, technical [...] questions or concerns, please contact the appropriate office:[facility] ([place] office) [phone] [facility] ([place] office) [phone] follow up appointment is scheduled for:AT:[facility] [address], 3rd floor [facility] [address], [address], [facility] [address] [facility], 2nd floor clinic, [facility] [address] [facility]?WHAT TO EXPECT AFTER THE PROCEDURE:Please note [...] increase pain. (for example, bending, twisting, walking, aeronautical engineering officer).Try to avoid pain medication or sleeping during [...] call the office immediately if noted.Contact stimulator mortician supplies sales representative with questions regarding stimulator use.(see [...] and call office immediately if noted.Contact stimulator mortician supplies sales representative with questions regarding stimulator use.(see [...] drainage and call immediately if noted.Contact stimulator mortician supplies sales representative with questions regarding stimulator use.(see rep card) Normal [facility] Management Office/Clini c Noteon 05-27-2017 [...] Chiropractor: 11/2016 Date PT: 01/16 Frequency PT: [id number] Effective PT: not much help Comments TENS: [...] created on his/her behalf by a trained hospitalist medical director. The creation of this document is based on the provider?s statements to the hospitalist medical director.Problem List/Past Medical History Ongoing Acid reflux Angina [...] Myrna infante CNP 05/27/2017 10:22 EDT Normal [facility] Encounters Encounter Date Encounter Type Care Provider Facility Start: 06-29-2024 End: 06-29-2024 ambulatory AMY WIN Not Available Start: 06-20-2024 End: 06-20-2024 ambulatory [facility] Start: 04-19-2024 End: 04-19-2024 ambulatory [facility] Start: 03-09-2024 End: 03-09-2024 ambulatory AMY WIN Not Available Start: 01-06-2024 End: 01-06-2024 ambulatory [facility] Start: 12-03-2023 End: 12-03-2023 ambulatory [facility] Start: 11-16-2023 End: 11-16-2023 ambulatory AMY WIN Not Available Start: 10-19-2023 End: 10-19-2023 ambulatory SHASTA [facility] Start: 03-30-2023 End: 04-29-2023 ambulatory NOGUEIRA H FAWWAD Facility:[facility] Start: 03-02-2023 End: 03-27-2023 ambulatory NOGUEIRA H FAWWAD Facility:[facility] Start: 01-28-2023 End: 02-27-2023 ambulatory NOGUEIRA H FAWWAD Facility:[facility] Start: 12-31-2022 End: 01-28-2023 ambulatory NOGUEIRA H FAWWAD Facility:[facility] Start: 12-18-2022 End: 12-18-2022 ambulatory DOMINIQUE JAUREGUI Facility:[facility] Start: 12-01-2022 End: 12-31-2022 ambulatory [...] End: 06-25-2019 Patient encounter procedure RIO LAL Facility:[facility] Start: 06-21-2019 End: 06-27-2019 Patient encounter procedure GERBER PETER Facility:[facility] Start: 04-13-2018 End: 04-14-2018 Ambulatory Rio Lal Facility[facility] Start: 04-06-2018 End: 04-06-2018 Ambulatory RIO LAL Facility:[facility] Start: 03-29-2018 End: 03-30-2018 Ambulatory DRAGAN MORLEY Facility:[facility] Start: 03-16-2018 End: 03-17-2018 Ambulatory MYRNA CAST Facility:[facility] [place] Start: 02-19-2018 End: 02-20-2018 Ambulatory RIO LAL Facility:[facility] [place] Start: 01-13-2018 End: 01-13-2018 Ambulatory JOHNATHAN LAYAOS Facility:[facility] Start: 01-06-2018 End: 01-07-2018 Ambulatory MYRNA DENISMarino CAST Facility:[facility] [place] Start: 11-09-2017 End: 11-09-2017 Ambulatory JOHNATHAN BAKOS Facility:[facility] Start: 10-14-2017 End: 10-15-2017 Ambulatory MYRNA CAST Facility:[facility] [place] Start: 09-09-2017 End: 09-09-2017 Ambulatory JOHNATHAN BAKOS Facility:[facility] Start: 08-26-2017 End: 08-26-2017 Ambulatory JOHNATHAN BAKOS Facility:[facility] Start: 07-29-2017 End: 07-30-2017 Ambulatory MYRNA DENIS AUXIER Facility:[facility] [place] Start: 06-29-2017 End: 06-29-2017 Ambulatory [facility] Start: 06-15-2017 End: 06-15-2017 Ambulatory JOHNATH[facility] Start: 05-27-2017 End: 05-28-2017 [facility] [place] Payers Date Payer Category Payer Medicare 1958 Medicare [id number] 1958 Unknown [id number] 1958 Unknown [id number] 1935 Unknown [id number] 2.16.8 [id number] 1936 Unknown [id number] 2.16.8 40.1.177735.3.579.2.647 1936 Unknown [id number] 2.16.84 0.1.007523.3.579.2.593 1936 Unknown [id number] 2.16.84 0.1.993664.3.579.2.593 1936 Unknown [id number] 2.16.84 0.1.593686.3.579.2.593 1936 Unknown [id number] 2.16.84 0.1.733164.3.579.2.593 1936 Unknown [id number] 2.16.84 0.1.561634.3.579.2.593 1936 Unknown [id number] 2.16.84 0.1.112404.3.579.2.593 1936 Unknown [id number] 2.16.84 0.1.387121.3.579.2.593 1936 Unknown [id number] 2.16.84 0.1.980563.3.579.2.593 1936 Unknown [id number] 2.16.84 0.1.311963.3.579.2.593 1936 Unknown [id number] 2.16.84 0.1.534615.3.579.2.593 1936 Unknown [id number] 2.16.84 0.1.586561.3.579.2.593 1936 Unknown [id number] 2.16.84 0.1.614986.3.579.2.593 1936 Unknown [id number] 2.16.84 0.1.320291.3.579.2.593 1936 Unknown [id number] 2.16.84 0.1.901775.3.579.2.1259 1936 Unknown [id number] 2.16.84 0.1.758637.3.579.2.1259 1936 Unknown [id number] 2.16.840 .1.148576.3.579.2.1259 Medicare [id number] Progress note 06-20-2024 Note Date & Type Note Facility 06-20-2024 Note [place] [facility] Subjective Alvin Boyd is a 88 y.o. year old male patient being seen for 6 mo follow up chronic systolic heart failure, hypertension, CAD, and valve disorder. He had echo 2 weeks ago, and his device was interrogated in March 2024. He doesn't take evening dose of Entresto if SBP < 110. Says he takes lasix every 2-3 weeks for LE edema. Says his GROSS remains stable and unchanged. Denies chest pain, palpitations, and lightheadedness/syncope. 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 Dizziness and giddiness DVT (deep venous thrombosis) ([facility]) History of cardiovascular disorder Chronic disease of cardiovascular system Encounter for long-term (current) use of insulin ([facility]) Hyperlipidemia Mitral valve disorder Morbid obesity with BMI of 40.0-44.9, adult ([facility]) Osteoarthritis of right hip Pulmonary embolism ([facility]) Right knee DJD CAD S/P percutaneous coronary angioplasty Implantable cardioverter-defibrillator (ICD) in situ No family history on file. Social History Tobacco Use Smoking status: Former Years: 18 Types: Cigarettes Quit date: 1984 Years since quittin.5 Smokeless tobacco: Never HPI Alvin is seen in follow up. He is a 88 yo man with prior history of permanent AF, CAD SP stenting of LAD and RCA last in 2012, s/p pacemaker in the past became dependent on it, developed chronic systolic heart failure and underwent upgrade to a BiV pacer (no ICD) in 2017, recovered EF on follow up. He has COPD and uses nebulizer. He currently reports that his shortness of breath is at baseline. NYHA class II-III. He has no significant lower extremity edema. He denies chest pain. No palpitations. No bleeding with warfarin. No falls. Review of Systems Cardiovascular: Positive for dyspnea on exertion. Respiratory: Positive for cough. Musculoskeletal: Positive for joint pain and muscle weakness. Neurological: Positive for focal weakness and weakness. All other systems reviewed and are negative. Objective Visit Vitals BP 128/79 (BP Location: Right arm, Patient Position: Sitting) Pulse 59 Ht 1.753 m (5' 9 ) Wt 104 kg (230 lb) SpO2 98% BMI 33.97 kg/m??? Smoking Status Former BSA 2.25 m??? Physical Exam Constitutional: Appearance: He is well-developed. He is obese. He is not ill-appearing. HENT: Head: Normocephalic and atraumatic. Nose: Nose normal. Eyes: General: No scleral icterus. Pupils: Pupils are equal, round, and reactive to light. Neck: Thyroid: No thyromegaly. Vascular: No JVD. Cardiovascular: Rate and Rhythm: Normal rate and regular rhythm. Pulses: Radial pulses are 2+ on the right side and 2+ on the left side. Heart sounds: Murmur heard. Systolic (LLSB) murmur is present with a grade of 2/6. No friction rub. No gallop. Pulmonary: Effort: Pulmonary effort is normal. No respiratory distress. Breath sounds: Normal breath sounds. No wheezing or rales. Chest: Chest wall: No tenderness. Abdominal: General: Bowel sounds are normal. There is no distension. Palpations: Abdomen is soft. Tenderness: There is no abdominal tenderness. Musculoskeletal: General: No swelling. Cervical back: Neck supple. Right lower leg: No edema. Left lower leg: No edema. Comments: Uses walker to assist with ambulation Skin: General: Skin is warm and dry. Neurological: General: No focal deficit present. Mental Status: He is alert and oriented to person, place, and time. Psychiatric: Mood and Affect: Mood normal. Behavior: Behavior is cooperative. Judgment: Judgment normal. Allergies No Known Allergies Medications Current Outpatient Medications: atorvastatin (Lipitor) 40 mg [...] mouth 2 times daily., Disp: , Rfl: nitroglycerin (Nitrostat) 0.4 mg SL tablet, place 1 tab under tongue at the beginning of chest pain. May repeat every 5 minutes if pain persists. Do not repeat more that 3 times., Disp: , Rfl: omeprazole (PriLOSEC) [address] capsule, , Disp: , Rfl: potassium chlo (more content not included)... [facility] Progress note 01-06-2024 Note Date & Type Note Facility 01-06-2024 Note Cardiovascular Medic ine [facility] SUBJECTIVE No chief complaint on file. Alvin Boyd is a 88 y.o. male here for follow-up on his hypertension and HFpEF. His son accompanied him. 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 s/p BiV INSTRUCTIONAL INTERVENTIONIST-P EF 55%, COPD At his last visit, [...] Problem List Diagnosis Coronary artery disease involving campo coronary artery of campo heart without angina pectoris Acute on chronic systolic heart failure, NYHA class 2 ([facility]) Chronic atrial fibrillation ([facility]) Presence of biventricular cardiac pacemaker Benign hypertensive cardiomyopathy with heart failure ([facility]) Dyspnea on exertion Edema of both lower extremities Arthritis Asthma, allergic 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 Dizziness and giddiness DVT (deep venous thrombosis) ([facility]) History of cardiovascular disorder Chronic disease of cardiovascular system Encounter for long-term (current) use of insulin ([facility]) Hyperlipidemia Mitral valve disorder Morbid obesity with BMI of 40.0-44.9, adult ([facility]) Osteoarthritis of right hip Pulmonary embolism ([facility]) Right knee DJD CAD S/P percutaneous coronary angioplasty Implantable cardioverter-defibrillator (ICD) in situ Past Medical History: Diagnosis Date Atrial fibrillation ([facility]) CHF (congestive heart failure) ([facility]) Coronary artery disease Heart valve disease Hyperlipidemia [...] per After Visit Summary. Follow up with [facility] for INR, Disp: , Rfl: Physical [...] oriented to person, (more content not included)... [facility] Progress note 01-06-2024 Note Date & [...] All other systems reviewed and are negative. [facility] Progress note 12-03-2023 Note Date & [...] All other systems reviewed and are negative. [facility] Progress note 12-03-2023 Note Date & Type Note Facility 12-03-2023 Note Cardiovascular Medic [facility] SUBJECTIVE Chief Complaint Patient presents with Hospital Follow-up Congestive Heart Failure Shortness of Breath Alvin Boyd is a 87 y.o. male here for follow-up after his recent admission to [facility]. HPI PMHx: CAD s/p stent 2012, A-fib, aortic valve stenosis, HFimpEF s/p BiV INSTRUCTIONAL INTERVENTIONIST-P EF 55% He was recently admitted for [...] artery disease): Qualifiers: Coronary Disease-Associated Artery/Lesion type: campo artery [place] vs. 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 Dizziness and giddiness DVT (deep venous thrombosis) (CMS/HCC) History of cardiovascular disorder Chronic disease of cardiovascular system Encounter for long-term (current) use of insulin ([facility]) Hyperlipidemia Mitral valve disorder Morbid obesity with BMI of 40.0-44.9, adult ([facility]) Osteoarthritis of right hip Pulmonary embolism ([facility]) Right knee DJD CAD S/P percutaneous coronary angioplasty Implantable cardioverter-defibrillator (ICD) in situ Past Medical History: Diagnosis Date Atrial fibrillation ([facility]) CHF (congestive heart failure) ([facility]) Coronary artery disease Heart valve disease Hyperlipidemia [...] After Visit Suarez (more content not included)... [facility] Progress note 10-19-2023 Note Date & Type Note Facility 10-19-2023 Note [place] [facility]rophys[facility] Consult Note Reason for visit: 6-month [...] aortic valve stenosis, CHF HFimpEF s/p BiV INSTRUCTIONAL INTERVENTIONIST-P EF 55% he is here for 6-month [...] a previous Dr. Bull patient Per dr. Solares 03/2021 Alvin is seen in follow up. He is a 85 yo man with prior history of permanent AF, CAD SP stenting last in 2012, s/p pacemaker in the past became dependent on it, developed chronic systolic heart failure and underwent upgrade to a BiV pacer (no ICD) in 2017, recovered EF on follow up. Denied chest [...] Past Medical History: Diagnosis Date Atrial fibrillation ([facility]) CHF (congestive heart failure) ([facility]) Coronary artery disease Heart valve disease Hyperlipidemia [...] per After Visit Summary. Follow up with [facility] for INR atorvastatin (Lipitor) 40 mg [...] no difficulty hear (more content not included)... [facility] Progress note 10-19-2023 Note Date & [...] Positive for arthritis. Gastrointestinal: Positive for diarrhea. [facility] Summary Purpose Family History No Family [...] content) DATE CREATED AUTHOR 05/19/2018 [facility] DATE CREATED AUTHOR AUTHOR'S ORGANIZ ATION 06/19/2020 [facility] DATE CREATED AUTHOR AUTHOR'S ORGANIZ ATION 05/08/2023 [facility] DATE CREATED AUTHOR AUTHOR'S ORGANIZ ATION 07/01/2024 [facility] DATE CREATED AUTHOR AUTHOR'S ORGANIZ ATION 07/07/[address] [facility] FOR RECORDS PERTAINING TO PATIENTS WHO [...] BE BASED ON THE PRIMARY CLINICAL RECORDS. [facility] [employer] provides no warranty or guarantee of the accuracy or completeness of information in this document.
[2024-08-02 09:38] LABS: Bilirubin Urine NEGATIVE (NEGATIVE); Blood Urine NEGATIVE (NEGATIVE); Clarity Urine CLEAR (CLEAR); Color Urine LT. YELLOW (YELLOW); Glucose Urine UA NEGATIVE (NEGATIVE); Ketones Urine NEGATIVE (NEGATIVE); Leukocyte Esterase Urine SMALL (NEGATIVE); Nitrite Urine NEGATIVE (NEGATIVE); Protein Urine NEGATIVE (NEG/TRACE); Specific Gravity Urine 1.015 (1.005-1.025); Urobilinogen Urine 0.2 EU/dL (0.2-1.0)
[2024-08-02 09:51] LABS: Urine Microscopic Indicated YES
[2024-08-02 10:30] LABS: Bacteria Urine TRACE #/HPF (NONE SEEN); Mucus Urine NONE SEEN (NONE SEEN); RBC Urine NONE SEEN #/HPF (0-2)
[2024-08-02 10:31] LABS: Squamous Epithelial Cell Urine FEW #/LPF (NONE/RARE)
[2024-08-02 10:32] LABS: Urine Culture Indicated YES
== END 2024-08-02 09:14 | disposition home or self-care (01) ==
LOC: LAB 09:13
PROVIDERS: PCP Internal Medicine; Visit Provider Internal Medicine
DX: R35.1 Nocturia (principal)
CPT/HCPCS: 81001; 87086

== ENCOUNTER 2024-08-30 01:37 | Outpatient (RCR) | payer MEDICARE, SELFPAY | END 2024-09-29 23:10 | disposition home or self-care (01) | LOC: MM 01:37 | PROVIDERS: PCP Internal Medicine; Visit Provider Internal Medicine | DX: Z51.81 Encounter for therapeutic drug level monitoring (principal); Z79.01 Long term (current) use of anticoagulants; I48.91 Unspecified atrial fibrillation | CPT/HCPCS: 85610; G0463 ==

== ENCOUNTER 2024-09-30 11:37 | Outpatient (RCR) | payer MEDICARE, SELFPAY | END 2024-10-29 23:59 | disposition home or self-care (01) | LOC: MM 11:37 | PROVIDERS: PCP Internal Medicine; Visit Provider Internal Medicine | DX: Z51.81 Encounter for therapeutic drug level monitoring (principal); Z79.01 Long term (current) use of anticoagulants; I48.91 Unspecified atrial fibrillation | CPT/HCPCS: 85610; G0463 ==

== ENCOUNTER 2024-10-31 03:48 | Outpatient (RCR) | payer MEDICARE, SELFPAY | END 2024-11-29 09:33 | disposition home or self-care (01) | LOC: MM 03:48 | PROVIDERS: PCP Internal Medicine; Visit Provider Internal Medicine | DX: Z51.81 Encounter for therapeutic drug level monitoring (principal); Z79.01 Long term (current) use of anticoagulants; I48.91 Unspecified atrial fibrillation ==

== ENCOUNTER 2024-11-29 20:52 | Inpatient (IN) | payer MEDICARE, SELFPAY ==
[2024-11-29 20:53] VITALS: BP 123/79; PULSE 57; TEMP 36.6; O2SAT 95; BMI 34.2
--- OUTSIDE RECORDS SUMMARY | 2024-11-29 20:59 | XMS_ITS | CCD ---
Author Organization [facility] ion [facility] Care Team Providers Care E Learning Designer Name Role Phone AUXIER, KENDRA SASHA Unavailable Unavailabl e BAKOS, ROSALEE Unavailable Unavailable BAKOS, ROSALEE Unavailable Unavailable AUXIER, KENDRA SASHA Unavailable Unavailabl e BAKOS, ROSALEE Unavailable Unavailable BAKOS, ROSALEE Unavailable Unavailable AUXIER, KENDRA SASHA Unavailable Unavailabl e AUXIER, KENDRA SASHA Unavailable Unavailabl e BAKOS, ROSALEE Unavailable Unavailable BAKOS, ROSALEE Unavailable Unavailable VALONERIO MARSHALL Unavailable Unavailabl e AUXIER, KENDRA SASHA Unavailable Unavailabl e Valone, Rio Marshall Unavailable Unavailabl e AUXIER, KENDRA SASHA Unavailable Unavailabl e Valone, Rio Marshall Unavailable Unavailabl e MORLEY, LEXI MILKA Unavailable Unavailable Seagraves, Kendra Sasha~[id number] Unavailable Unavailable ValoneRio Marshall Unavailable Unavailabl e Valone, Rio Marshall Unavailable Unavailabl e Arsalan Leija Unavailable Unavailable VALONERIO MARSHALL Unavailable Unavailabl e MORLEY, LEXI MILKA Unavailable Unavailable Rio Lal Unavailable Unavailabl e VALONERIO Referring Unavailable RIO LAL Primary Care Unavailable YUE LUCAS Attending Unavailable YUE LUCAS Admitting Unavailable GERBER PETER Admitting Unavailable [...] Unavailable VALONE, DR MCCLURE Primary Care Unavailable Valone Rio CAMACHO Primary Care Provider AMY DAILY Attending Unavailable AMY DAILY Attending Unavailable AMY DAILY Attending Unavailable AMY DAILY Attending Unavailable CUCA KNOTT Referring Unavailable DOUG GIBSON Attending Unavailable DOUG GIBSON Attending Unavailable CUCA KNOTT Referring Unavailable PARISA SOLARES Attending Unavailable Allergies Allergy Classification Reported Allergen(s) Allergy Type Date of Onset Reaction(s) Facility (1 source) 44873,00; Translations: [Unknown] Propensity to adverse reactions (disorder) 9 [facility] Repository Medications Current Medications Medication Drug Class(es) Dates Sig (Normalized) Sig (Original) atorvastatin 40 mg oral tablet (2 sources) HMG-CoA Reductase Inhibitor atorvastatin (Lipito r) 40 MG tablet 40 mg 1 (one) time each day at the same time Active carvedilol 12.5 mg oral tablet (2 sources) alpha-Adrenergic Cathy, beta-Adrenergic Cathy Start: 10-23-20 carvedilol (Coreg) 12.5 MG tablet Take 12.5 mg by mouth 10/23/2023 Active DULoxetine 30 mg delayed release oral capsule (2 sources) Serotonin and Norepinephrine Reuptake Inhibitor Start: 10-23-20 DULoxetine (Cymbalta) [address] capsule Take 30 mg by mouth 10/23/2023 Active hydrALAZINE hydrochloride 10 mg oral tablet (2 sources) Arteriolar Vasodilator hydrALAZINE (Apresoline) 10 MG tablet 10 mg in the morning and 10 mg at noon and 10 mg in the evening and 10 mg before bedtime. Active hydroCHLOROthiazide 12.5 mg oral tablet (2 sources) Thiazide Diuretic Start: 10-03-20 hydroCHLOROthiazide (HYDRODiuril) 12.5 MG tablet 12.5 mg 10/03/2023 Active losartan potassium 25 mg oral tablet (2 sources) Angiotensin 2 Receptor Cathy losartan (Cozaar) 25 MG tablet 25 mg 1 (one) time each day at the same time Active montelukast 10 mg oral tablet (2 sources) Leukotriene Receptor Antagonist Start: 09-12-20 montelukast (Singulair) 10 MG tablet 09/12/2023 Active omeprazole 40 mg delayed release oral capsule (2 sources) Proton Pump Inhibitor Start: 09-16-20 omeprazole (PriLOSEC) [address] capsule 40 mg 09/16/2023 Active ondansetron 4 mg oral tablet (2 sources) Serotonin-3 Receptor Antagonist Start: 10-29-20 ondansetron (Zofran) 4 MG tablet 10/29/2023 Active warfarin sodium 4 mg oral tablet (2 sources) Vitamin K Antagonist Start: 10-03-20 Jantoven 4 MG tablet 4 mg 10/03/2023 Active Problems Active Problems Problem Classification Problem Date Documented Date Episodic/Chronic Cardiac dysrhythmias (5 sources) Unspecified atrial fibrillation; Translations: [UNSPECIFIED ATRIAL FIBRILLATION] Onset: 3 Chronic Chronic kidney disease (1 source) Chronic kidney disease; 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] Onset: 2 Conduction disorders (4 sources) Presence of cardiac pacemaker; Translations: [Encounter for adjustment and management of automatic implantable cardiac defibrillator] Onset: 4 Chronic Congestive heart failure; nonhypertensive (9 sources) Heart failure, unspecified; Translations: [Chronic diastolic (congestive) heart failure] Onset: 2 Chronic Coronary atherosclerosis and other heart disease (4 sources) Old myocardial infarction; Translations: [Atherosclerotic heart disease of [place] coronary artery without angina pectoris] Onset: 2 [...] HEART DISEASE W/HEART FAIL] Onset: 3 Chronic Mycoses (1 source) Onychomycosis due to dermatophyte ; Translations: [Tinea unguium] 10-19-2024 Episodic Nutritional deficiencies (1 source) Vitamin D deficiency, unspecified; Translations: [VITAMIN D DEFICIENCY UNSPECIFIED] Onset: 2 Chronic Other aftercare (5 sources) Encounter for therapeutic drug level monitoring; Translations: [ENC THERAPEUTC DRUG LEVL MONITORING] Onset: 3 Episodic Other aftercare (1 source) custodial (current) use of anticoagulants; Translations: [FPC CURRNT USE ANTICOAGULANTS] Onset: 3 Episodic Other connective tissue disease (1 source) Presence of artificial hip joint, bilateral; Translations: [PRESENCE ARTIFICIAL HIP JOINT BILAT] Onset: 3 Chronic Other connective tissue disease (2 sources) Pain in toe; Translations: [Pain in right toe(s)] 10-19-2024 Episodic Other nutritional; endocrine; and metabolic disorders (1 source) Morbid (severe) obesity due to excess calories; Translations: [MORBID SEVERE OBES D/T EXCESS LORENA] Onset: 3 Chronic Other nutritional; endocrine; and metabolic disorders (1 source) Body mass index (BMI) 34.0-34.9, adult; Translations: [BODY MASS INDEX BMI 34.0-34.9 ADULT] Onset: 3 Chronic Other skin disorders (1 source) Dystrophia unguium; Translations: [Nail dystrophy] 10-19-2024 Episodic Residual codes; unclassified (1 source) Sleep apnea, unspecified; Translations: [SLEEP APNEA UNSPECIFIED] Onset: 3 Chronic Unclassified (2 sources) Permanent atrial fibrillation; Translations: [Permanent atrial fibrillation] Onset: 4 Past or Other Problems Problem Classification Problem [...] 2022 Episodic Other aftercare (1 source) Other terminal block assembler (current) drug therapy; Translations: [OTH FPC CURRENT DRUG THERAPY] Onset: 2022 Episodic Other aftercare (1 source) 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 Patient informed. [facility] Office Visiton 06-20-2024 Follow-up visit [id number] Calin Boyd Laura 1935 M Date Provider Department Center 06/20/2024 PARISA MORALES [facility] No family history on file Level of Service:37043 [place] OFFICE/OUTPATIENT ESTABLISHED MOD MDM 30 MIN [facility] 36on 05-05-2024 [address] Knott s/p device check on 04/19/2024. [facility] Office Visiton 01-06-2024 Follow-up visit [id number] Calin Boyd Laura 1935 M Date Provider Department Center 01/06/2024 DOUG ROGERS [facility] No family history on file Level of Service:17012 [place] OFFICE/OUTPATIENT ESTABLISHED MOD MDM 30 MIN [facility] Orders Onlyon 12-10-2023 Orders Only [id number] Calin Boyd Laura 1935 M Date Provider Department Center 12/10/2023 SHIRIN ANDERSON [facility] No family history on file [facility] 36on 12-08-2023 36 BP and weight seem l muna they are improving. Can we schedule for follow-up in clinic in 2-4 weeks. Thanks! [facility] 37on 12-03-2023 37 *Check blood pressur e 1-2 hours after medications. *Take lasix 40mg daily x3 days along with potassium. *Monitor daily weights. [facility] Office Visiton 12-03-2023 Follow-up visit [id number] Calin Boyd 1935 M Date Provider Department Center 12/03/2023 DOUG ROGERS CARD [facility] No family history on file Level of Service:67920 [place] OFFICE/OUTPATIENT ESTABLISHED MOD MDM 30 MIN Reason for Visit and Comments: Hospital Follow-up [832] Congestive Heart Failure [127] Shortness of Breath [821774] Normal [facility] CBC AUTO DIFFon 12-18-2022 BASO # 0.1 103/ul Normal 0.0-0.1 [facility] Comment on above: Performed By: #### C BC #### [facility] [address] [place] [address] Dr. Dana Angulo Basophils/100 WBC (Bld) 0.8 % Normal 0.2-2.0 [facility] Comment on above: Performed By: #### C BC #### [facility] [address] [place] [address] Dr. Dana Angulo EO # 0.1 103/ul Normal 0.0-0.7 [facility] Comment on above: Performed By: #### C BC #### [facility] [address] [place] [address] Dr. Dana Angulo Eosinophils/100 WBC (Bld) 0.9 % Normal 0.9-7.0 [facility] Comment on above: Performed By: #### C BC #### [facility] [address] [place] [address] Dr. Dana Angulo Erythrocyte distribution width (RBC) [Ratio] 13.2 % Normal 11.0-15.0 [facility] Comment on above: Performed By: #### C BC #### [facility] [address] [place] [address] Dr. Dana Angulo Hematocrit (Bld) [Volume fraction] 37.1 % Critically low 42.0-54.0 [facility] Comment on above: Performed By: #### C BC #### [facility] [address] [place] [address] Dr. Dana Angulo Hemoglobin (Bld) [Mass/Vol] 12.1 g/dL Critically low 14.0-18.0 [facility] Comment on above: Performed By: #### C BC #### [facility] [address] [place] [address] Dr. Dana Angulo IG # 0.03 10e3/ul Normal 0.00-0.03 [facility] Comment on above: Performed By: #### C BC #### [facility] [address] [place] [address] Dr. Dana Angulo IG % 0.4 % Normal 0.0-0.5 [facility] Comment on above: Performed By: #### C BC #### [facility] [address] [place] [address] Dr. Dana Angulo LYMPH # 1.4 103/ul Normal 1.2-3.8 [facility] Comment on above: Performed By: #### C BC #### [facility] [address] [place] [address] Dr. Dana Angulo Lymphocytes/100 WBC (Bld) 19.0 % Critically low 20.5-60.0 [facility] Comment on above: Performed By: #### C BC #### [facility] [address] [place] [address] Dr. Dana Angulo MANUAL DIFF REQ NO Normal [facility] Comment on above: Performed By: #### C BC #### [facility] [address] [place] [address] Dr. Dana Angulo MCH (RBC) [Entitic mass] 30.6 pg Normal 25.9-34.0 [facility] Comment on above: Performed By: #### C BC #### [facility] [address] [place] [address] Dr. Dana Angulo MCHC (RBC) [Mass/Vol] 32.6 g/dL Normal 29.9-35.2 [facility] Comment on above: Performed By: #### C BC #### [facility] [address] [place] [address] Dr. Dana Angulo MCV (RBC) [Entitic vol] 93.7 fL Normal 80.0-94.0 [facility] Comment on above: Performed By: #### C BC #### [facility] [address] [address] [address] Dana Angluo MONO # 0.5 103/ul Normal 0.3-0.8 [facility] Comment on above: Performed By: #### C BC #### [facility] [address] [address] [address] Dana Angulo Monocytes/100 WBC (Bld) 7.2 % Normal 1.7-12.0 [facility] Comment on above: Performed By: #### C BC #### [facility] [address] [address] [address] Dana Angulo NEUT # 5.4 103/ul Normal 1.4-6.5 [facility] Comment on above: Performed By: #### C BC #### [facility] [address] [place] [address] Dr. Dana Angulo Neutrophils/100 WBC (Bld) 71.7 % Normal 43.0-75.0 [facility] Comment on above: Performed By: #### C BC #### [facility] [address] [place] [address] Dr. Dana Angulo Platelet mean volume (Bld) [Entitic vol] 9.6 fL Normal 9.5-13.5 [facility] Comment on above: Performed By: #### C BC #### [facility] [address] [place] [address] Dr. Dana Angulo PLT 165 103/ul Normal 150-450 [facility] Comment on above: Performed By: #### C BC #### [facility] [address] [place] [address] Dr. Dana Angulo RBC 3.96 106/ul Critically low 4.70-6.10 [facility] Comment on above: Performed By: #### C BC #### [facility] [address] [address] [address] Dana Angulo WBC 7.5 103/ul Normal 4.0-11.0 [facility] Comment on above: Performed By: #### C BC #### [facility] [address] [address] [address] Dana Angulo ER URINE PROFILEon 3 Bilirubin Ql (U) Negative Normal NEGATIVE [facility] Comment on above: Performed By: #### Marino KENYON UMICRO #### [facility] [address] [address] [address] Dana Angulo Clarity (U) CLEAR Normal CLEAR [facility] Comment on above: Performed By: #### Marino KENYON UMICRO #### [facility] [address] [address] [address] Dana Angulo Color (U) LT. YELLOW Normal YELLOW [facility] Comment on above: Performed By: #### ANGELINA FRIENDRO #### [facility] [address] [place] [address] Dr. Dana ROBERTSAHDennis A micrscopic examina tion will be performed if indicated. Normal [facility] Comment on above: Performed By: #### Marino KENYON UMICRO #### [facility] [address] [place] [address] Dr. Dana Angulo Glucose Ql (U) Negative Normal NEGATIVE [facility] Comment on above: Performed By: #### GIANCARLO FRIENDICRO #### [facility] [address] [place] [address] Dr. Dana Angulo Hemoglobin Ql (U) Negative Normal NEGATIVE [facility] Comment on above: Performed By: #### GIANCARLO FRIENDICRO #### [facility] [address] [address] [address] Dana Angulo Ketones Ql (U) Negative Normal NEGATIVE [facility] Comment on above: Performed By: #### GIANCARLO FRIENDICRO #### [facility] [address] [place] [address] Dr. Dana Angulo LEUKOCYTES TRACE Abnormal NEGATIVE [facility] Comment on above: Performed By: #### aMrino KENYON UMICRO #### [facility] [address] [place] [address] Dr. Dana Angulo Nitrite Ql (U) Negative Normal NEGATIVE [facility] Comment on above: Performed By: #### E KOSTAS, UMICRO #### [facility] [address] [place] [address] Dr. Dana Angulo pH (U) 6.0 [pH] Normal 5-9 [facility] Comment on above: Performed By: #### E KOSTAS, UMICRO #### [facility] [address] [place] [address] Dr. Dana Angulo SPEC GRAVITY 1.015 Normal 1.005-<=1.02 5 [facility] Comment on above: Performed By: #### Marino KENYON, UMICRO #### [facility] [address] [place] [address] Dr. Dana Angulo UA PROTEIN Negative Normal NEGATIVE/ TRACE [facility] Comment on above: Performed By: #### Marino KENYON UMICRO #### [facility] [address] [place] [address] Dr. Dana Angulo UR MICRO IND INDICATED Normal [facility] Comment on above: Performed By: #### E KOSTAS UMICRO #### [facility] [address] [place] [address] Dr. Dana Angulo Urobilinogen Qn (U) 0.2 {Delia'U}/dL Normal 0.2 - 1.0 [facility] Comment on above: Performed By: #### Marino KENYON, UMICRO #### [facility] [address] [place] [address] Dr. Dana Angulo LACTATE/LACTIC ACIDon 2022 Lactate [Moles/Vol] 1.1 mmol/L Normal 0.4-1.9 [facility] Comment on above: Performed By: #### L ACT #### [facility] [address] [place] [address] Dr. Dana Angulo LIPASEon 12-18-2022 Lipase [Catalytic activity/Vol] 68.0 U/L Critically low 73.0-393.0 [facility] Comment on above: Performed By: #### C BC #### [facility] [address] [place] [address] Dr. Dana Angulo OCC BLD IMMUNO SCREENon 11-30 OCCULT BLOOD Negative Normal NEGATIVE [facility] Comment on above: Performed By: #### H STROPN #### [facility] [address] [place] [address] Dr. Dana Angluo PROF 14(COMP METB)on 023 Albumin [Mass/Vol] 3.8 g/dL Normal 3.4-5.0 [facility] Comment on above: Performed By: #### C BC #### [facility] [address] [place] [address] Dr. Dana Angulo Albumin/Globulin [Mass ratio] 1.3 {ratio} Normal [facility] Comment on above: Performed By: #### C BC #### [facility] [address] [place] [address] Dr. Dana Angulo ALP [Catalytic activity/Vol] 70 U/L Normal 46-116 [facility] Comment on above: Performed By: #### C BC #### [facility] [address] [place] [address] Dr. Dana Angulo ALT [Catalytic activity/Vol] 22 U/L Normal 16-63 [facility] Comment on above: Performed By: #### C BC #### [facility] [address] [place] [address] Dr. Dana Angulo Anion gap [Moles/Vol] 13.5 mmol/L Normal [facility] Comment on above: Performed By: #### C BC #### [facility] [address] [place] [address] Dr. Dana Angulo AST [Catalytic activity/Vol] 25 U/L Normal 15-37 [facility] Comment on above: Performed By: #### C BC #### [facility] [address] [place] [address] Dr. Dana Angulo Bilirubin [Mass/Vol] 1.0 mg/dL Normal 0.2-1.0 [facility] Comment on above: Performed By: #### C BC #### [facility] [address] [place] [address] Dr. Dana Angulo Calcium [Mass/Vol] 9.7 mg/dL Normal 8.5-10.1 [facility] Comment on above: Performed By: #### C BC #### [facility] [address] [address] [address] Dana Angulo Chloride [Moles/Vol] 103 mmol/L Normal 98-107 [facility] Comment on above: Performed By: #### C BC #### [facility] [address] [place] [address] Dr. Dana Angulo CO2 [Moles/Vol] 25.1 mmol/L Normal 21.0-32.0 [facility] Comment on above: Performed By: #### C BC #### [facility] [address] [place] [address] Dr. Dana Angulo Creatinine [Mass/Vol] 1.07 mg/dL Normal 0.70-1.30 [facility] Comment on above: Performed By: #### C BC #### [facility] [address] [place] [address] Dr. Dana Angulo EGFR-AF RUSSIAN >60 Normal >=60 [facility] Comment on above: Performed By: #### C BC #### [facility] [address] [place] [address] Dr. Dana Angulo EGFR-NON AF RUSSIAN >60 Normal >=60 [facility] Comment on above: Performed By: #### C BC #### [facility] [address] [place] [address] Dr. Dana Angulo Globulin (S) [Mass/Vol] 3.0 g/dL Normal [facility] Comment on above: Performed By: #### C BC #### [facility] [address] [place] [address] Dr. Dana Angulo Glucose [Mass/Vol] 115 mg/dL Critically high 74-106 T [facility] Comment on above: Performed By: #### C BC #### [facility] [address] [place] [address] Dr. Dana Angulo Potassium [Moles/Vol] 3.6 mmol/L Normal 3.5-5.1 [facility] Comment on above: Performed By: #### C BC #### [facility] [address] [address] [address] Dana Angulo Protein [Mass/Vol] 6.8 g/dL Normal 6.4-8.2 [facility] Comment on above: Performed By: #### C BC #### [facility] [address] [address] [address] Dana Angulo Sodium [Moles/Vol] 138 mmol/L Normal 136-145 [facility] Comment on above: Performed By: #### C BC #### [facility] [address] [address] [address] Dana Angulo Urea nitrogen [Mass/Vol] 39.0 mg/dL Critically high 7.0-18.0 [facility] Comment on above: Performed By: #### C BC #### [facility] [address] [address] [address] Dana Angulo Urea nitrogen/Creatinin e [Mass ratio] 36.4 mg/mg Normal [facility] Comment on above: Performed By: #### C BC #### [facility] [address] [address] [address] Dana Angulo PROTIMEon 12-18-2022 INR Coag (PPP) [Relative time] 2.15 {INR} Normal [facility] Comment on above: Performed By: #### P T, PTT #### [facility] [address] [place] [address] Dr. Dana Angulo INR GUIDELINES SEE BELOW Normal [facility] Comment on above: Result Comment: BETTINA RED INR: 2.0 - 3.0 CONDITIONS NOT LISTED BELOW 2.5 - 3.5 FOR PROSTHETIC HEART VALVE REPLACEMENT 2.5 - 3.5 RECURRENT THROMBOSIS Performed By: #### P T, PTT #### [facility] [address] [place] [address] Dr. Dana Angulo PT Coag (PPP) [Time] 21.8 s Critically high 9.0-11.6 [facility] Comment on above: Performed By: #### P T, PTT #### [facility] [address] [place] [address] Dr. Dana Angulo PTTon 12-18-2022 aPTT Coag (Bld) [Time] 35.3 s Normal 22.3-36.2 [facility] Comment on above: Performed By: #### P T, PTT #### [facility] [address] [place] [address] Dr. Dana Angulo TROPONIN, HIGH SENSITIVITYon 12-18-2022 HSTROP 37.2 pg/mL Normal 4.0-76.1 [facility] Comment on above: Result Comment: CUT- OFF POINTS HAVE BEEN ESTABLISHED BASED ON THE FOURTH UNIVERSAL DEFINITIONS OF MYOCARDIAL INFARCTION. THE UPPER REFERENCE LIMIT (URL) OF TROPONIN, DEFINED THE 99TH PERCENTILE OF cTnI DISTRIBUTION IN A REFERENCE POPULATION, HAS BEEN CONFIRMED THE DECISION THRESHOLD FOR HI DIAGNOSIS. Performed By: #### H HUMPHREYPN #### [facility] [address] [place] [address] Dr. Dana Angulo HSTROP 39.8 pg/mL Normal 4.0-76.1 [facility] Comment on above: Result Comment: CUT- OFF POINTS HAVE BEEN ESTABLISHED BASED ON THE FOURTH UNIVERSAL DEFINITIONS OF MYOCARDIAL INFARCTION. THE UPPER REFERENCE LIMIT (URL) OF TROPONIN, DEFINED THE 99TH PERCENTILE OF cTnI DISTRIBUTION IN A REFERENCE POPULATION, HAS BEEN CONFIRMED THE DECISION THRESHOLD FOR HI DIAGNOSIS. Performed By: #### H HUMPHREYPN #### [facility] [address] [place] [address] Dr. Dana Angulo URINE MICROSCOPIC ONLYon BACTERIA NONE SEEN Normal NONE SEEN [facility] Comment on above: Performed By: #### ANGELINA FRIENDRO #### [facility] [facility] [address] [place] [address] Dr. Dana Angulo Bacteria identified Cx Nom (U) NOT INDICATED Normal [facility] Comment on above: Performed By: #### ANGELINA FRIENDRO #### [facility] [address] [place] [address] Dr. Dana Angulo CAST NONE SEEN Normal NONE SEEN [facility] Comment on above: Performed By: #### ANGELINA FRIENDRO #### [facility] [address] [place] [address] Dr. Dana Angulo Crystals LM Nom (Urine sed) NONE SEEN Normal NONE SEEN [facility] Comment on above: Performed By: #### E RUR, UMICRO #### [facility] [address] [place] [address] Dr. Dana Angulo Epithelial cells LM Ql (Urine sed) FEW Abnormal NONE SEEN /RARE [facility] Comment on above: Performed By: #### E RUR, UMICRO #### [facility] [address] [place] [address] Dr. Dana Angulo MUCOUS NONE SEEN Normal NONE SEEN [facility] Comment on above: Performed By: #### E RUR, UMICRO #### [facility] [address] [place] [address] Dr. Dana Angulo RBC NONE SEEN Abnormal 0-2 [facility] Comment on above: Performed By: #### E RUR, UMICRO #### [facility] [address] [place] [address] Dr. Dana Angulo WBC 2-5 Abnormal NONE SEEN [facility] Comment on above: Performed By: #### E RUR, UMICRO #### [facility] [address] [place] [address] Dr. Dana Angulo US SINGLE QUAD RT [...] DOMINIQUE JAUREGUI Date: 2022-12-18 13:05 Normal [facility] BNPon 11-11-2022 Natriuretic peptide B (Bld) [Mass/Vol] 2364.0 pg/mL Critically high <=1,800.0 [facility] Comment on above: Performed By: #### H STROPN #### [facility] [address] [place] [address] Dr. Dana Angulo BUNon 11-11-2022 Urea nitrogen [Mass/Vol] 18.0 mg/dL Normal 7.0-18.0 [facility] Comment on above: Performed By: #### H STROPN #### [facility] [address] [place] [address] Dr. Dana Angulo CBC AUTO DIFFon 11-11-2022 BASO # 0.0 103/ul Normal 0.0-0.1 [facility] Comment on above: Performed By: #### C BC #### [facility] [address] [place] [address] Dr. Dana Angulo Basophils/100 WBC (Bld) 0.6 % Normal 0.2-2.0 [facility] Comment on above: Performed By: #### C BC #### [facility] [address] [place] [address] Dr. Dana Angulo EO # 0.1 103/ul Normal 0.0-0.7 [facility] Comment on above: Performed By: #### C BC #### [facility] [address] [place] [address] Dr. Dana Angulo Eosinophils/100 WBC (Bld) 1.3 % Normal 0.9-7.0 [facility] Comment on above: Performed By: #### C BC #### [facility] [address] [place] [address] Dr. Dana Angulo Erythrocyte distribution width (RBC) [Ratio] 13.9 % Normal 11.0-15.0 [facility] Comment on above: Performed By: #### C BC #### [facility] [address] [place] [address] Dr. Dana Angulo Hematocrit (Bld) [Volume fraction] 36.2 % Critically low 42.0-54.0 [facility] Comment on above: Performed By: #### C BC #### [facility] [address] [place] [address] Dr. Dana Angulo Hemoglobin (Bld) [Mass/Vol] 11.4 g/dL Critically low 14.0-18.0 [facility] Comment on above: Performed By: #### C BC #### [facility] [address] [place] [address] Dr. Dana Angulo IG # 0.02 10e3/ul Normal 0.00-0.03 [facility] Comment on above: Performed By: #### C BC #### [facility] [address] [place] [address] Dr. Dana Angulo IG % 0.3 % Normal 0.0-0.5 [facility] Comment on above: Performed By: #### C BC #### [facility] [address] [place] [address] Dr. Daan Angulo LYMPH # 1.4 103/ul Normal 1.2-3.8 [facility] Comment on above: Performed By: #### C BC #### [facility] [address] [place] [address] Dr. Dana Angulo Lymphocytes/100 WBC (Bld) 19.8 % Critically low 20.5-60.0 [facility] Comment on above: Performed By: #### C BC #### [facility] [address] [place] [address] Dr. Dana Angulo MANUAL DIFF REQ NO Normal [facility] Comment on above: Performed By: #### C BC #### [facility] [address] [place] [address] Dr. Dana Angulo MCH (RBC) [Entitic mass] 30.9 pg Normal 25.9-34.0 [facility] Comment on above: Performed By: #### C BC #### [facility] [address] [address] [address] Dana Angulo MCHC (RBC) [Mass/Vol] 31.5 g/dL Normal 29.9-35.2 [facility] Comment on above: Performed By: #### C BC #### [facility] [address] [address] [address] Dana Angulo MCV (RBC) [Entitic vol] 98.1 fL Critically high 80.0-94.0 [facility] Comment on above: Performed By: #### C BC #### [facility] [address] [address] [address] Dana Angulo MONO # 0.5 103/ul Normal 0.3-0.8 [facility] Comment on above: Performed By: #### C BC #### [facility] [address] [address] [address] Dana Angulo Monocytes/100 WBC (Bld) 6.9 % Normal 1.7-12.0 [facility] Comment on above: Performed By: #### C BC #### [facility] [address] [address] [address] Dana Angulo NEUT # 5.1 103/ul Normal 1.4-6.5 [facility] Comment on above: Performed By: #### C BC #### [facility] [address] [address] [address] Dana Angulo Neutrophils/100 WBC (Bld) 71.1 % Normal 43.0-75.0 [facility] Comment on above: Performed By: #### C BC #### [facility] [address] [address] [address] Dana Angulo Platelet mean volume (Bld) [Entitic vol] 9.4 fL Critically low 9.5-13.5 [facility] Comment on above: Performed By: #### C BC #### [facility] [address] [address] [address] Dana Angulo PLT 164 103/ul Normal 150-450 [facility] Comment on above: Performed By: #### C BC #### [facility] [address] [address] [address] Dana Angulo RBC 3.69 106/ul Critically low 4.70-6.10 [facility] Comment on above: Performed By: #### C BC #### [facility] [address] [address] [address] Dana Angulo WBC 7.1 103/ul Normal 4.0-11.0 [facility] Comment on above: Performed By: #### C BC #### [facility] [address] [address] [address] aDna Angulo CREATININEon 11-11-2022 Creatinine [Mass/Vol] 1.10 mg/dL Normal 0.70-1.30 [facility] Comment on above: Performed By: #### H STROPN #### [facility] [address] [place] [address] Dr. Dana Angulo EGFR-AF RUSSIAN >60 Normal >=60 [facility] Comment on above: Result Comment: Prev iously reported as: >77 On 11/11/2022 10:45 By BL3 Previously reported as: (blank) On 11/11/2022 10:44 By BL3 Performed By: #### H STROPN #### [facility] [address] [place] [address] Dr. Dana Angulo EGFR-NON AF RUSSIAN >60 Normal >=60 [facility] Comment on above: Result Comment: Prev iously reported as: >64 On 11/11/2022 10:45 By BL3 Previously reported as: (blank) On 11/11/2022 10:44 By BL3 Performed By: #### H STROPN #### [facility] [address] [place] [address] Dr. Dana Angulo CULTURE URINEon 11-11-2022 CULTURE URINE Culture Observations : NO GROWTH. Normal [facility] Comment on above: Performed By: #### C BC #### [facility] [address] [place] [address] Dr. Dana Angulo ELECTROLYTESon 11-11-2022 Anion gap [Moles/Vol] 12.7 mmol/L Normal [facility] Comment on above: Performed By: #### H STROPN #### [facility] [address] [place] [address] Dr. Dana Angulo Chloride [Moles/Vol] 103 mmol/L Normal 98-107 [facility] Comment on above: Performed By: #### H STROPN #### [facility] [address] [place] [address] Dr. Dana Angulo CO2 [Moles/Vol] 29.0 mmol/L Normal 21.0-32.0 [facility] Comment on above: Performed By: #### H STROPN #### [facility] [address] [place] [address] Dr. Dana Angulo Potassium [Moles/Vol] 4.7 mmol/L Normal 3.5-5.1 [facility] Comment on above: Performed By: #### H STROPN #### [facility] [address] [place] [address] Dr. Dana Angulo Sodium [Moles/Vol] 140 mmol/L Normal 136-145 [facility] Comment on above: Performed By: #### H STROPN #### [facility] [address] [place] [address] Dr. Dana Angulo GLYCOHEMOGLOBIN A1Con 2021 ADA RECOMMENDATION SEE BELOW Normal [facility] Comment on above: Result Comment: ADA RECOMMENDED LIMIT 4.0 - 6.0 ADA THERAPEUTIC TARGET < 7.0 ACTION SUGGESTED > 7.0 Performed By: #### H STROPN #### [facility] [address] [place] [address] Dr. Dana Angulo Glucose [Mass/Vol] 120 mg/dL Normal [facility] Comment on above: Performed By: #### H STROPN #### [facility] [address] [place] [address] Dr. Dana Angulo HbA1c (Bld) [Mass fraction] 5.8 % Normal 4.5-6.2 [facility] Comment on above: Performed By: #### H STROPN #### [facility] [address] [place], [place] [id number] Dr. Dana Angulo LIPID PROFILEon 11-11-2022 CHOL-HDL RATIO NORM SEE BELOW Normal [facility] Comment on above: Result Comment: 3.3 - 4.4 LOW RISK 4.4 - 7.1 AVERAGE RISK 7.1 - 11.0 MODERATE RISK >11.0 HIGH RISK Performed By: #### H STROPN #### [facility] [address] [address] [address] Dana Angulo Cholesterol [Mass/Vol] 91 mg/dL Normal <=200 [facility] Comment on above: Performed By: #### H STROPN #### [facility] [address] [address] [address] Dana Angulo Cholesterol in HDL [Mass/Vol] 49 mg/dL Normal 40-60 [facility] Comment on above: Performed By: #### H STROPN #### [facility] [address] [address] [address] Dana Angulo Cholesterol in LDL [Mass/Vol] 29.4 mg/dL Normal [facility] Comment on above: Performed By: #### H STROPN #### [facility] [address] [address] [address] Dana Angulo Cholesterol.total/ Cholesterol in HDL [Mass ratio] 1.9 {ratio} Normal [facility] Comment on above: Performed By: #### H STROPN #### [facility] [address] [address] [address] Dana Angulo HDL NORMAL > or = 60 mg/dl - LO W CARDIOVASCULAR RISK <40 mg/dl - HIGH CARDIOVASCULAR RISK Normal [facility] Comment on above: Performed By: #### H STROPN #### [facility] [address] [address] [address] Dana Angulo LDL CALC NORMAL SEE BELOW Normal [facility] Comment on above: Result Comment: <100 mg/dl OPTIMAL 100 - 129 mg/dl NEAR OR ABOVE OPTIMAL 130 - 159 mg/dl BORDERLINE HIGH 160 - 189 mg/dl HIGH >190 mg/dl VERY HIGH Performed By: #### H STROPN #### [facility] [address] [address] [address] Dana Angulo Triglyceride [Mass/Vol] 63 mg/dL Normal <=150 [facility] Comment on above: Performed By: #### H STROPN #### [facility] [address] [place] [address] Dr. Dana Angulo VLDL CALC 12.6 mg/dL Normal [facility] Comment on above: Performed By: #### H STROPN #### [facility] [address] [place] [address] Dr. Dana Angulo LIVER PROFILEon 11-11-2022 Albumin [Mass/Vol] 3.7 g/dL Normal 3.4-5.0 [facility] Comment on above: Performed By: #### H STROPN #### [facility] [address] [place] [address] Dr. Dana Angulo Albumin/Globulin [Mass ratio] 1.2 {ratio} Normal [facility] Comment on above: Performed By: #### H STROPN #### [facility] [address] [place] [address] Dr. Dana Angulo ALP [Catalytic activity/Vol] 68 U/L Normal 46-116 [facility] Comment on above: Performed By: #### H STROPN #### [facility] [address] [place] [address] Dr. Dana Angulo ALT [Catalytic activity/Vol] 20 U/L Normal 16-63 [facility] Comment on above: Performed By: #### H STROPN #### [facility] [address] [place] [address] Dr. Dana Angulo AST [Catalytic activity/Vol] 21 U/L Normal 15-37 [facility] Comment on above: Performed By: #### H STROPN #### [facility] [address] [place] [address] Dr. Dana Angulo BILI, CONJUGATED 0.3 mg/dL Critically high 0.0-0.2 [facility] Comment on above: Performed By: #### H STROPN #### [facility] [address] [place] [address] Dr. Dana Angulo Bilirubin [Mass/Vol] 0.9 mg/dL Normal 0.2-1.0 [facility] Comment on above: Performed By: #### H STROPN #### [facility] [address] [place] [address] Dr. Dana Angulo Globulin (S) [Mass/Vol] 3.1 g/dL Normal [facility] Comment on above: Performed By: #### H STROPN #### [facility] [address] [place] [address] Dr. Dana Angulo Protein [Mass/Vol] 6.8 g/dL Normal 6.4-8.2 [facility] Comment on above: Performed By: #### H STROPN #### [facility] [address] [place] [address] Dr. Dana Angulo TSHon 11-11-2022 TSH 3.426 uIU/mL Normal 0.358-3.740 [facility] Comment on above: Performed By: #### H STROPN #### [facility] [address] [place] [address] Dr. Dana Angulo UA (CLEAN/CATCH) INSPECTION ENGINEER/MICRO I F IND.on 11-11-2022 Bilirubin Ql (U) Negative Normal NEGATIVE [facility] Comment on above: Performed By: #### U ACSREGGIE ICRO #### [facility] [address] [place] [address] Dr. Dana Angulo Clarity (U) CLEAR Normal CLEAR [facility] Comment on above: Performed By: #### U ACSREGGIE UMICRO #### [facility] [address] [place] [address] Dr. Dana Angulo Color (U) YELLOW Normal YELLOW [facility] Comment on above: Performed By: #### U ACSREGGIE UMICRO #### [facility] [address] [place] [address] Dr. Dana Angulo Glucose Ql (U) Negative Normal NEGATIVE [facility] Comment on above: Performed By: #### U ACSREGGIE UMICRO #### [facility] [address] [place] [address] Dr. Dana Angulo Hemoglobin Ql (U) Negative Normal NEGATIVE [facility] Comment on above: Performed By: #### U ACSIND, UMICRO #### [facility] [address] [address] [address] Dana Angulo Ketones Ql (U) TRACE Abnormal NEGATIVE [facility] Comment on above: Performed By: #### U ACSIND, UMICRO #### [facility] [address] [place] [address] Dr. Dana Angulo LEUKOCYTES SMALL Abnormal NEGATIVE [facility] Comment on above: Performed By: #### U ACSIND, UMICRO #### [facility] [address] [address] [address] Dana Angulo Nitrite Ql (U) Negative Normal NEGATIVE [facility] Comment on above: Performed By: #### U ACSIND, UMICRO #### [facility] [address] [place] [address] Dr. Dana Angulo pH (U) 6.0 [pH] Normal 5-9 [facility] Comment on above: Performed By: #### U ACSIND, UMICRO #### [facility] [address] [place] [address] Dr. Dana Angulo SPEC GRAVITY 1.015 Normal 1.005-<=1.02 5 [facility] Comment on above: Performed By: #### U ACSIND, UMICRO #### [facility] [address] [place] [address] Dr. Dana Angulo UA PROTEIN TRACE Normal NEGATIVE/ TRACE [facility] Comment on above: Performed By: #### U ACSIND, UMICRO #### [facility] [address] [place] [address] Dr. Dana Angulo UR MICRO IND INDICATED Normal [facility] Comment on above: Performed By: #### U ACSIND, UMICRO #### [facility] [address] [place] [address] Dr. Dana Angulo Urobilinogen Qn (U) 1.0 {Delia'U}/dL Normal 0.2 - 1.0 [facility] Comment on above: Performed By: #### U ACSIND, UMICRO #### [facility] [address] [address] [address] Dana Angulo URINE MICROSCOPIC ONLYon BACTERIA TRACE Abnormal NONE SEEN [facility] Comment on above: Performed By: #### U ACSREGGIE, UMICRO #### [facility] [address] [address] [address] Dana Angulo Bacteria identified Cx Nom (U) INDICATED Normal [facility] Comment on above: Performed By: #### U ACSREGGIE, UMICRO #### [facility] [address] [place] [address] Dr. Dana Angulo CAST SEEN Abnormal NONE SEEN [facility] Comment on above: Performed By: #### U ACSREGGIE, UMICRO #### [facility] [address] [place] [address] Dr. Dana Angulo Crystals LM Nom (Urine sed) NONE SEEN Normal NONE SEEN [facility] Comment on above: Performed By: #### U ACSREGGIE UMICRO #### [facility] [address] [place] [address] Dr. Dana Angulo Epithelial cells LM Ql (Urine sed) RARE Normal NONE SEEN /RARE [facility] Comment on above: Performed By: #### U ACSREGGIE ICRO #### [facility] [address] [place] [address] Dr. Dana Angulo MUCOUS NONE SEEN Normal NONE SEEN [facility] Comment on above: Performed By: #### U ACSREGGIE UMICRO #### [facility] [address] [place] [address] Dr. Dana Angulo RBC 2-5 Abnormal 0-2 [facility] Comment on above: Performed By: #### U ACSREGGIE UMICRO #### [facility] [address] [place] [address] Dr. Dana Angulo WBC 2-5 Abnormal NONE SEEN [facility] Comment on above: Performed By: #### U ACSREGGIE UMICRO #### [facility] [address] [place] [address] Dr. Dana Angulo VITAMIN D 25 OHon 11-11-2022 VIT D 25-OH 30.2 ng/mL Normal [facility] Comment on above: Performed By: #### C BC #### [facility] [address] [place], [place] [address] Dr. Dana Angulo VIT D RANGES SEE BELOW Normal [facility] Comment on above: Result Comment: <20 ng/mL Vit D deficient 20 - <30 ng/mL Vit D insufficient 30 - 100 ng/mL Vit D sufficient >100 ng/mL Potential Toxicity Performed By: #### C BC #### [facility] [address] [place], [place] [address] Dr. Dana Angulo Cardiovascular Lab Reporton 06-25-[address] [facility] Patient Name: [facility] Alvin Sanchez MR #: [id number] Department of Physician: Geetha Blankenship M.D. Division of Service Date: 06/24/2019 Cardiology Birthdate: 1935 Adult Cardiovascular Room #: [facility] [address] [address] Cardiovascular Laboratory Report FINAL IMPRESSION: 1. Normal right and left ventricular filling pressures. 2. Preserved cardiac output and cardiac index. 3. Mild pulmonary artery hypertension. 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 He has been experiencing shortness of breath [...] modified Seldinger technique and ultrasound guidance, a 5-Cymro micropuncture was placed in right internal jugular vein. This was upsized to a regular 6-Cymro pinnacle sheath and a 6-Cymro Jackson was used for right heart catheterization. [...] FLUORO TIME: 1.23 minutes. Electronically Signed by: Yue Lucas M.D. 06/28/2019 03:39 P Yue Lucas M.D. Date Dict: 06/24/2019/10:49 Rashard/Yue Lucas M.D. Date Trans: 06/25/2019 05:12 Rashard/deniz [id number] cc: Rio Lal D.O. [address] [place] [id number] [address] [facility] Neurosurgery Office/Clinic N nuryon 04-13-2018 Neurosurgery Office/Clinic Note Chief Complaint BACK [...] Arsalan dexter MD 04/13/18 15:39 EDT Normal [facility] CT Spine Lumbar w/ Contrasto n [...] Further degenerative changes are detailed above.Radiation Dose Estimate:CTDI(mGy):0.14478 0 / / / kVp:120.318812 / mAs:0.186579 / / / DLP(mGy-cm):5.754332Lehf Part:CTDI(mGy):28.394922 / / / kVp:120.969334 / mAs:294.061257 / / / DLP(mGy-cm):632.660366Ytco Part: Final Dictated by: Naldo Aguilar MD, MDictated DT/TM: 04.06.2018 11:34 amSigned by: Naldo Aguilar MD MSigned (Electronic Signature): 04.06.2018 3:49 pmTranscribed DT/TM: 04.06.2018 1:29 pm(If Report Is Signed, Electronically Signed in Other Vendor System) Normal [facility] Inpatient Clinical Summaryon 04-06-2018 Inpatient Clinical Summary [address] [address]Qofnyldh SummaryPerson InformationName: Alvin Boyd Rolando Age: 82 Years : 1935Sex: Male [facility] Status: PCP: [id number]:White Ethnicity:Not or Language:EnglishMRN: [id number] Visit Id: Reason:stenosis, bilateral leg pain Speciality: Acuity:Enc Type: Outpatient in a Bed Med Service: Radiology-Diagnostic ImagingArrival:04/06/2018 08:16:35 Discharge: Dispo Type:Address:[address] [place] [address]Tbrorshoq:Discharged To:Home Treatments:Devices/Equipme nt:Professional Skilled Services:Special Services and [...] week.Last Dose: C are Team Members:Attending Physician: Lexi Morley CNP Physician:Referring Physician:Follow up:Type Location Start Finish StateXR Lumbar Spine BV Rad Main 04/06/2018 09:40:00 04/06/2018 10:00:00 ConfirmedCT Lumbar Spine BV CT Scan 04/06/2018 11:50:00 04/06/2018 12:30:00 ConfirmedSP Established Patient Visit [facility] 04/14/2018 14:30:00 04/14/2018 15:00:00 Confirmed Normal [facility] PTon 04-06-2018 INR Coag RelTime (PPP) 1.1 {INR} Normal <=3.5 [facility] Comment on above: Result Comment: INR has no normal range. INR Therapeutic range is:2.0-3.0 (AF, CVA, TIAs, DVT prophylaxis, acute DVT)2.5-3.5 ([facility] heart valves, recurrent thrombosis/emboli) Performed By: #### P TINR ####[address] [id number] Prothrombin time (PT) Coag time (PPP) 11.3 s Normal 9.1-11.9 [facility] Comment on above: Performed By: #### P TINR ####[address] [address] PTTon 04-06-2018 aPTT 24.0 s Normal 21.0-28.8 [facility] Comment on above: Performed By: #### P TT ####[place] [address] Platelet Counton 04-06-2018 Platelets 135 x10*3/mcL Low 150-350 [facility] Comment on above: Performed By: #### P LTS ####[place] [address] XR Myelography Lumbosacral S pine 04-06-2018 XR Myelography Lumbosacral Spine CLINICAL HISTORY: [...] Electronically Signed in Other Vendor System) Normal [facility] XR Spine Lumbosacral 2 or 3 [...] Signed, Electronically Signed in Other Vendor System) [facility] Neurosurgery Office/Clinic N saul 03-29-2018 Neurosurgery Office/Clinic Note Chief Complaint RUG SIZER-BackHistory of Present Illness 82 year old male here for initial evaluation of low back with bilateral leg pain. 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 Upon completion [...] L45 moderate canal stenosisElectronically signed by F ox Lexi DIAZ 03/29/18 12:41 EDT [facility] Pain Management Office/Clini c Noteon 03-16-2018 [...] Injections: 11-09-17 Date Surgery: n/a Frequency PT: [id number] Effective PT: not much help Effective Injections: [...] No qualifying data available.Electronically signed by Rashard lynchKendra cochran CNP 03/16/18 13:37 EDT [facility] Pain Management Office/Clini c Noteon 02-19-2018 [...] Injections: 11-09-17 Date Surgery: n/a Frequency PT: [id number] Effective PT: not much help Effective Injections: [...] data available.Electronically signed by Rashard infante CNP Kendra Baez 02/19/18 12:56 EDT [facility] History and Physicalon 01-13 History and [...] No qualifying data available.Electronically signed by B Rosalee smallwood MD 01/13/18 15:09 EST [facility] Management Procedure No glenn 01-13-2018 [...] company of a responsible adult.Electronically signed by Rosalee Guzman MD 01/13/18 15:09 EST [facility] Ambulatory Patient Education on 01-06-2018 Ambulatory Patient Education Patient Education MaterialsName: Alvin Boyd Current Date: 01/06/2018 15:32:58 Jes/New_ArpDOB: 1935 following sheet(s) are the Patient Education [...] the next day. You must have a utility driver that will wait in the Pain [...] procedure: Please arrive at: Please check in at:[facility] Desk in the Pain Management [id number] [place] [address], 3rd floor [facility] inside the Emergency Room at [address]*Due to the sedation given for the procedure, you will not be permitted to drive until the following day. For this reason, you will need to bring a utility driver to stay with you and drive [...] Hibiclens (a medicated soap) prior to your surgery.*[place] teeth, rinse with water, but do not swallow.*Please wear comfortable clothing, without metal zippers or snaps. Do not wear contact lenses. Do wear your hearing aid. Please leave all jewelry and valuables at home; you may wear your wedding ring.*Please note that due to limited space, your family member/utility driver will need to wait in the waiting area while you are in the procedure area. Absolutely no children should attend an appointment for an injection.*All prescription refills must be requested in advance. No prescription refills requested on the day of a procedure will be available until at least 3 business days later.*If your procedure is done in [place], you will be receiving a statement from [facility] for the professional (physician's) billing fees and for the technical (hospital's) fees and a separate statement for the anesthesia provider. If your procedure is done in [place], you will be receiving a statement from [facility] for professional (physician's) billing fees, technical [...] questions or concerns, please contact the appropriate office:[facility] ([place] office) [phone] [facility] ([place] office) [phone] follow up appointment is scheduled for:AT:[facility] [address], 3rd floor [facility], [facility] [address] [facility], [address], [facility] [address] [facility], 2nd floor clinic, [facility] [address] [facility]?WHAT TO EXPECT AFTER THE PROCEDURE:Please note [...] increase pain. (for example, bending, twisting, walking, utilities estimator and drafter).Try to avoid pain medication or sleeping during [...] call the office immediately if noted.Contact stimulator service center representative with questions regarding stimulator use.(see rep [...] and call office immediately if noted.Contact stimulator service center representative with questions regarding stimulator use.(see rep [...] drainage and call immediately if noted.Contact stimulator service center representative with questions regarding stimulator use.(see rep card) [facility] Management Office/Clini c Noteon 01-06-2018 [...] PT: 01/16 Date Injections: 11-09-17 Frequency PT: [id number] Effective PT: not much help Effective Injections: [...] available. No qualifying data available.Electronically signed by Kendra Reyes CNP 01/06/18 15:15 EST [facility] Management Office/Clini c Noteon 11-09-2017 [...] Medicine No qualifying data available.Electronically signed by Rosalee Guzman MD 11/09/17 09:27 EST [facility] Procedure Noteon 11-09-2017 Procedure Note PROCEDURE: [...] up as per treatment plan.Electronically signed by Rosalee Guzman MD 11/09/17 09:36 EST [facility] Ambulatory Patient Education on 10-14-2017 Ambulatory Patient Education Patient Education MaterialsName: Alvin Boyd Current Date: 10/14/2017 11:49:11 Jes/New_ArpDOB: 1935 following sheet(s) are the Patient Education Leaflets for Alvin Boyd Name:You are scheduled for a:*Please allow up to 2 hours for your appointment. Late arrivals may result in delay or postponement of procedure.Date/Time of procedure: Please arrive at: Date/Time of procedure: Please arrive at: Please check in at:[facility] [employer] Desk in the Pain Management [id number] [place] [address], 3rd floor [facility], [place] Desk inside the Emergency Room at [address]*Due to the sedation given for the procedure, you will not be permitted to drive until the following day. For this reason, you will need to bring a utility driver to stay with you and drive [...] Hibiclens (a medicated soap) prior to your surgery.*[place] teeth, rinse with water, but do not swallow.*Please wear comfortable clothing, without metal zippers or snaps. Do not wear contact lenses. Do wear your hearing aid. Please leave all jewelry and valuables at home; you may wear your wedding ring.*Please note that due to limited space, your family member/utility driver will need to wait in the waiting area while you are in the procedure area. Absolutely no children should attend an appointment for an injection.*All prescription refills must be requested in advance. No prescription refills requested on the day of a procedure will be available until at least 3 business days later.*If your procedure is done in [place], you will be receiving a statement from [facility] for the professional (physician's) billing fees and for the technical (hospital's) fees and a separate statement for the anesthesia provider. If your procedure is done in [place], you will be receiving a statement from [facility] for professional (physician's) billing fees, technical [...] questions or concerns, please contact the appropriate office:[facility] ([place] office[facility] [phone] [facility] ([place] office) [phone] follow up appointment is scheduled for:AT[facility] [address], 3rd floor [facility], [facility] [address] [facility], [address], [facility] [address] [facility], 2nd floor clinic, [address]?WHAT TO EXPECT AFTER THE PROCEDURE:Please note [...] increase pain. (for example, bending, twisting, walking, utilities estimator and drafter).Try to avoid pain medication or sleeping during [...] call the office immediately if noted.Contact stimulator service center representative with questions regarding stimulator use.(see rep [...] and call office immediately if noted.Contact stimulator service center representative with questions regarding stimulator use.(see rep [...] drainage and call immediately if noted.Contact stimulator service center representative with questions regarding stimulator use.(see rep card)Nerve Root InjectionThe nerve root injection is a procedure where a local anesthetic and steroid solution are administered near the nerve as it exits the spinal canal. This is done under fluoroscopy (watching under live x-ray) to deliver the drug to the precise location.Am I a candidate for a nerve root injection?At [facility], the provider examining you will decide whether [...] procedure. You are required to have a utility driver remain in the facility before and [...] home the morning of the procedure. [facility] Office/Clini c Noteon 10-14-2017 [...] Chiropractor: 11/2016 Date PT: 01/16 Frequency PT: [id number] Effective PT: not much help Comments TENS: [...] available. No qualifying data available.Electronically signed by Kendra Reyes CNP Sasha 10/14/17 11:44 EST [facility] History and Physicalon 09-09 History and [...] No qualifying data available.Electronically signed by B Rosalee smallwood MD 09/09/17 11:17 EDT [facility] Comment on above: Order Comment: This [...] data available.Electronically signed by Betsey smallwood MD, Rosalee 09/09/17 11:20 EDT [facility] Procedure Noteon 09-09-2017 Procedure Note PROCEDURE: [...] up as per treatment plan.Electronically signed by Rosalee Guzman MD 09/09/17 11:21 EDT [facility] History and Physicalon 08-26 History and [...] available. No qualifying data available.Electronically signed by Rosalee Guzman MD 08/26/17 14:38 EDT [facility] History and Physical History of Present [...] No qualifying data available.Electronically signed by B Rosalee smallwood MD 08/26/17 15:42 EDT [facility] Procedure Noteon 08-26-2017 Procedure Note PROCEDURE: [...] up as per treatment plan.Electronically signed by Rosalee Guzman MD 08/26/17 15:42 EDT [facility] Ambulatory Patient Education on 07-29-2017 Ambulatory [...] procedure: Please arrive at: Please check in at:[facility] Desk in the Pain Management [id number] [place] [address], 3rd floor [facility] [place]ception Desk inside the Emergency Room at [address]*Due to the sedation given for the procedure, you will not be permitted to drive until the following day. For this reason, you will need to bring a utility driver to stay with you and drive [...] Hibiclens (a medicated soap) prior to your surgery.*[place] teeth, rinse with water, but do not swallow.*Please wear comfortable clothing, without metal zippers or snaps. Do not wear contact lenses. Do wear your hearing aid. Please leave all jewelry and valuables at home; you may wear your wedding ring.*Please note that due to limited space, your family member/utility driver will need to wait in the waiting area while you are in the procedure area. Absolutely no children should attend an appointment for an injection.*All prescription refills must be requested in advance. No prescription refills requested on the day of a procedure will be available until at least 3 business days later.*If your procedure is done in [place], you will be receiving a statement from [facility] for the professional (physician's) billing fees and for the technical (hospital's) fees and a separate statement for the anesthesia provider. If your procedure is done in [place], you will be receiving a statement from [facility] for professional (physician's) billing fees, technical [...] questions or concerns, please contact the appropriate office:[facility] ([place] office) [phone] [facility] ([place] office) [phone] follow up appointment is scheduled for:[facility] [address], 3rd floor [facility], [facility] Management [address] [facility], [address], [facility] [address] [facility], 2nd floor clinic, [facility] [address] [facility]?WHAT TO EXPECT AFTER THE PROCEDURE:Please note [...] increase pain. (for example, bending, twisting, walking, utilities estimator and drafter).Try to avoid pain medication or sleeping during [...] call the office immediately if noted.Contact stimulator service center representative with questions regarding stimulator use.(see rep [...] and call office immediately if noted.Contact stimulator service center representative with questions regarding stimulator use.(see rep [...] drainage and call immediately if noted.Contact stimulator service center representative with questions regarding stimulator use.(see rep [...] sedation. You are required to have a utility driver remain in the facility before and during the procedure, then drive you home following the procedure.What should I expect after the procedure?You are required to have a utility driver remain in the waiting room of [facility] during the procedure and drive you [...] physician regarding your other diabetic medications. [facility] Management Office/Clini c Noteon 07-29-2017 [...] Chiropractor: 11/2016 Date PT: 01/16 Frequency PT: [id number] Effective PT: not much help Comments TENS: [...] available. No qualifying data available.Electronically signed by Kendra Reyes CNP 07/29/17 13:55 EDT [facility] History and Physicalon 06-29 History and [...] available. No qualifying data available.Electronically signed by Rosalee Gumzan MD 06/29/17 13:18 EDT [facility] Procedure Noteon 06-29-2017 Procedure Note PROCEDURE: [...] The patient was turned back onto the gurpurdon and taken to recovery in stable condition to be discharged per criteria.Electronically signed by Rosalee Guzman MD 06/29/17 14:34 EDT [facility] History and Physicalon 06-15 History and [...] available. No qualifying data available.Electronically signed by Rosalee Guzman MD 06/15/17 16:22 EDT [facility] Procedure Noteon 06-15-2017 Procedure Note PROCEDURE: [...] to be discharged per criteria.Electronically signed by Betsey smallwood MD, Rosalee 06/15/17 16:23 EDT [facility] Ambulatory Patient Education on 05-27-2017 Ambulatory Patient Education Patient Education MaterialsName: Alvin Boyd Current Date: 05/27/2017 10:03:36 Jes/New_ArpDOB: 1935 following sheet(s) are the Patient Education [...] have a lot of pain?Your physician at [facility] will do everything possible [...] procedure. You are required to have a utility driver remain in the facility before and [...] procedure: Please arrive at: Please check in at:[facility] Desk in the Pain Management [id number] [facility], 3rd floor [facility] [place]Reception Desk inside the Emergency Room at [address]*Due to the sedation given for the procedure, you will not be permitted to drive until the following day. For this reason, you will need to bring a utility driver to stay with you and drive [...] Hibiclens (a medicated soap) prior to your surgery.*[place] teeth, rinse with water, but do not swallow.*Please wear comfortable clothing, without metal zippers or snaps. Do not wear contact lenses. Do wear your hearing aid. Please leave all jewelry and valuables at home; you may wear your wedding ring.*Please note that due to limited space, your family member/utility driver will need to wait in the waiting area while you are in the procedure area. Absolutely no children should attend an appointment for an injection.*All prescription refills must be requested in advance. No prescription refills requested on the day of a procedure will be available until at least 3 business days later.*If your procedure is done in [place], you will be receiving a statement from [facility] for the professional (physician's) billing fees and for the technical (hospital's) fees and a separate statement for the anesthesia provider. If your procedure is done in [place], you will be receiving a statement from [facility] for professional (physician's) billing fees, technical [...] questions or concerns, please contact the appropriate office:[facility] ([place] office) [phone] [facility] ([place] office) [phone] follow up appointment is scheduled for:AT:[facility] [address], 3rd floor [facility], [facility] Management [address] [facility], [address], [facility] [address] [facility], 2nd floor clinic, [facility] [address] [place] [address]?WHAT TO EXPECT AFTER THE PROCEDURE:Please note the [...] increase pain. (for example, bending, twisting, walking, utilities estimator and drafter).Try to avoid pain medication or sleeping during [...] call the office immediately if noted.Contact stimulator service center representative with questions regarding stimulator use.(see rep [...] and call office immediately if noted.Contact stimulator service center representative with questions regarding stimulator use.(see rep [...] drainage and call immediately if noted.Contact stimulator service center representative with questions regarding stimulator use.(see rep card) [facility] Office/Clini c Noteon 05-27-2017 [...] Chiropractor: 11/2016 Date PT: 01/16 Frequency PT: [id number] Effective PT: not much help Comments TENS: [...] on his/her behalf by a trained medical collections specialist. The creation of this document is based on the provider?s statements to the medical collections specialist.Problem List/Past Medical History Ongoing Acid reflux Angina [...] lynn 05/27/17 10:14 EDTElectronically signed by A arelis DIAZ Kendra Sasha 05/27/2017 10:22 EDT [facility] Vital Signs Date Time Vital Sign Value Performing Clinician Michelle gamez 10-19-2024 09:08-0500 Body height 171.5 cm Amy Daily DPM Work Phone: [facility] 10-19-2024 09:08-0500 Body mass index (BMI) [Ratio] 34.57 kg/m2 Amy Daily DPM Work Phone: [facility] 10-19-2024 09:080500 Body weight 101.61 kg Amy Daily DPM Work Phone: [facility] Healthcare Encounters Encounter Date Encounter Type Care Provider Facility Start: 11-08-2024 End: 11-08-2024 ambulatory [facility] Start: 10-19-2024 End: 10-19-2024 Bamboo flowsheet Amy Daily DPM Work Phone: [facility] Start: 10-19-2024 End: 10-19-2024 Bamboo flowsheet Amy Daily DPM Work Phone: [facility] Start: 10-19-2024 End: 10-19-2024 Patient encounter procedure Amy Daily DPM Work Phone: [facility] Comment on above: Dermatophytosis of n ail (Primary Dx); Dystrophic nail; Pain around toenail, right foot; Pain around toenail, left foot Start: 10-19-2024 End: 10-19-2024 ambulatory AMY DAILY Not Available Start: 06-29-2024 End: 06-29-2024 ambulatory AMY DAILY Not Available Start: 06-20-2024 End: 06-20-2024 ambulatory [facility] Start: 04-19-2024 End: 04-19-2024 ambulatory [facility] Start: 03-09-2024 End: 03-09-2024 ambulatory AMY DAILY Not Available Start: 01-06-2024 End: 01-06-2024 ambulatory [facility] Start: 12-03-2023 End: 12-03-2023 ambulatory [facility] Start: 11-16-2023 End: 11-16-2023 ambulatory AMY Rashard DAILY Not Available Start: 03-30-2023 End: 04-29-2023 ambulatory NOGUEIRA H [...] Start: 04-13-2018 End: 04-14-2018 [facility] Start: 04-06-2018 End: 04-06-2018 Ambulatory RIO LAL Facility:[facility] Start: 03-29-2018 End: 03-30-2018 Ambulatory LEXI MORLEY Facility:[facility] Start: 03-16-2018 End: 03-17-2018 Ambulatory KENDRA SASHAMarino CAST Facility:[facility] [place] Start: 02-19-2018 End: 02-20-2018 Ambulatory RIO LAL Facility:[facility] [place] Start: 01-13-2018 End: 01-13-2018 Ambulatory ROSALEE BAKOS Facility:[facility] Start: 01-06-2018 End: 01-07-2018 [facility] [place] Start: 11-09-2017 End: 11-09-2017 Ambulatory ROSALEE BAKOS Facility:[facility] Start: 10-14-2017 End: 10-15-2017 Ambulatory [facility] Facility:[facility] [place] Start: 09-09-2017 End: 09-09-2017 Ambulatory ROSALEE BAKOS Facility:[facility] Start: 08-26-2017 End: 08-26-2017 Ambulatory ROSALEE BAKOS Facility:[facility] Start: 07-29-2017 End: 07-30-2017 [facility] [place] Start: 06-29-2017 End: 06-29-2017 Ambulatory ROSALEE BAKOS Facility:[facility] Start: 06-15-2017 End: 06-15-2017 Ambulatory ROSALEE BAKOS Facility:[facility] Start: 05-27-2017 End: 05-28-2017 Ambulatory [facility] Facility:[facility] [place] Plan of Treatment Date Care Activity Detail Author Start: 01-25-2025 End: 01-25-2025 Patient encounter procedure 01/25/2025 9:30 AM EST Procedure Visit [facility] [address] [place] [id number] Amy Daily DPM [address] [place] [address] [facility] Start: 10-19-2024 End: 10-19-2024 Patient encounter procedure 10/19/2024 9:15 AM EST Procedure Visit [facility] [address] [facility] [place] [address] Amy Daily DPM [address] [place], [place] [id number] Arrived [facility] Comment on above: Arrived Start: 07-31-2024 Influenza vaccination Influenza Vacc ine (#1) [facility] Start: 12-02-2018 Pneumococcal Vaccine : 65+ Years (2 of 2 - PPSV23 or PCV20) Pneumococcal Vaccine: 65+ Years (2 of 2 - PPSV23 or PCV20) [facility] Immunizations Immunization Date Immunization Notes Care Provider Fa cility 11-01-2018 influenza, injectabl e, quadrivalent, preservative free Amy Daily DPM Work Phone: [facility] 11-01-2018 influenza virus vacc ine, unspecified formulation Amy Daily DPM Work Phone: [facility] 12-02-2017 pneumococcal conjuga te vaccine, 13 valent Amy Daily DPM Work Phone: [facility] 11-03-2017 influenza, injectabl e, quadrivalent, preservative free Amy Daily DPM Work Phone: [facility] Payers Date Payer Category Payer Private Health Insurance [employer] De mber [id number] 2001 Medicare 1958 Medicare [id number] 1958 Unknown [id number] 1958 Unknown [id number] 1935 Unknown [id number] 1936 Unknown [id number] 647 1936 Unknown [id number]. 593 1936 Unknown [id number]. 593 1936 Unknown [id number] [id number]. 593 1936 Unknown [id number] [id number]. 593 1936 Unknown [id number]. 593 1936 Unknown [id number] [id number]. 593 1936 Unknown [id number]. 593 1935 Unknown [id number] 2.16.840.1.341325.3.579.2. 593 1935 Unknown [id number] 2.16.840.1.907486.3.579.2. 593 1936 Unknown [id number] 2.16.840.1.863155.3.579.2. 593 1936 Unknown [id number] 2.16.840.1.314676.3.579.2. 593 1936 Unknown [id number] 2.16.840.1.876350.3.579.2. 593 1936 Unknown [id number] 2.16.840.1.073542.3.579.2. 593 1936 Unknown [id number] 2.16.840.1.770644.3.579.2. 1259 1935 Unknown [id number] 2.16.840.1.858167.3.579.2. 1259 1935 Unknown [id number] 2.16.840.1.887092.3.579.2. 1259 1935 Unknown [id number] 2.16.840.1.380605.3.579.2. 1259 Medicare [id number] Social History Date Type Detail Facility Start: 11-16-2023 Tobacco smoking stat RUSTIS Ex-smoker [facility] History of tobacco use Current smoker [facility] History of tobacco use Cigarette Smoker [facility] Start: 11-16-2023 Tobacco use and exposure Smoke less tobacco non-user [facility] Start: 06-29-2024 End: 10-19-2024 Alcoholic beverage intake Lifetime non-drinker (finding) [facility] Start: 06-29-2024 End: 10-19-2024 [facility] of [facility] Start: 06-29-2024 End: 10-19-2024 Tobacco use panel [facility] Start: 07-30-2023 Alcohol Comment Caffeine intake: non e [facility] Start: 1935 Sex assigned at Not on file [facility] History of Present illness Narrative 10-19-2024 Amy Daily DPM - 10/19/2024 9:15 AM EST Note Date & Type Note Facility 10-19-2024 History of Presen t illness Narrative Images from the original note were not included. Subjective Patient ID: Alvin Boyd is a 88 y.o. male who presents for Toenail Care. HPI HPI Onychomycosis/Toenail Fungus: Presents requesting nail care. Symptomatic toenail deformity. Location: again identifies essentially all digits as problematic/symptomatic; bilateral great toes remain notably worse. Duration: Fairly chronic condition, stable deformity of multiple years duration. Severity of symptoms: mild-moderate over the past several weeks or so. Onset: gradual, without injury or trauma. Status: Problematic/symptomatic over the past several weeks or so, impacting his ability to walk comfortably. Context: hard to trim , hard to reach; self-care is difficult, ineffective and not practical; increasing risk exposure. Family members unable to provide effective care. Characteristics: elongated discolored, thickened, pain , ingrowing, pressure; without bleeding or drainage. Relieved by: Palliative care provides effective transient symptom relief. Previous Treatment: Palliative care as noted. Risk factors: medical comorbidities. Polypharmacy. Aspirin therapy. Flexibility, mobility and dexterity restraints. toenail deformity. Shoe and/or digital trauma and related complications. Aggravated by: shoe gear , pressure, walking, catching and snagging on clothing etc. . Medications Current Outpatient Medications: atorvastatin (Lipitor) 40 MG tablet, 40 mg 1 (one) time each day at the same time, Disp: , Rfl: carvedilol (Coreg) 12.5 MG tablet, Take 12.5 mg by mouth, Disp: , Rfl: DULoxetine (Cymbalta) [address] capsule, Take 30 mg by mouth, Disp: , Rfl: hydrALAZINE (Apresoline) 10 MG tablet, 10 mg in the morning and 10 mg at noon and 10 mg in the evening and 10 mg before bedtime., Disp: , Rfl: hydroCHLOROthiazide (HYDRODiuril) 12.5 MG tablet, 12.5 mg, Disp: , Rfl: Jantoven 4 MG tablet, 4 mg, Disp: , Rfl: losartan (Cozaar) 25 MG tablet, 25 mg 1 (one) time each day at the same time, Disp: , Rfl: montelukast (Singulair) 10 MG tablet, , Disp: , Rfl: omeprazole (PriLOSEC) [address] capsule, 40 mg, Disp: , Rfl: ondansetron (Zofran) 4 MG tablet, , Disp: , Rfl: Allergies Patient has no known allergies. Past Surgical History Past Surgical History: Procedure Laterality Date CARPAL TUNNEL RELEASE Left INSERT / REPLACE / REMOVE PACEMAKER atrial fibrillation REVISION TOTAL HIP ARTHROPLASTY Bilateral TOTAL HIP ARTHROPLASTY Bilateral Family History Family History Problem Relation Name Age of Onset Diabetes Mother Hypertension Mother Breast cancer Sister Objective General Examination: GENERAL EXAMINATION: Alert and oriented. Pleasant disposition. Ambulatory with walker assist, wearing new balance shoes. Vascular: DORSALIS PEDIS PULSE: bilaterally, 2/4 . POSTERIOR TIBIAL PULSE: bilaterally, 1/4 . TEMPERATURE GRADIENT: warm to warm. EDEMA: symmetrical, mild non-pitting ankle edema. CAPILLARY FILLING TIME(sec): capillary fill intact bilateral digits less than 3 secs . Neurologic: MUSCLE POWER: No focal deficits. SHARP SENSATION: Tactile and soft touch sensation intact. Dermatologic: SKIN FINDINGS: Intact, skin turgor is good. HYPERTROPHIC LESION: No forefoot or digital keratotic pressure lesions are noted. NAIL PATHOLOGY: Bilateral great toes: DSO deformity with pincer deformity: Toenail dystrophy, elongation, discoloration, thickening, distal margins are incurvated/cryptotic, keratotic, mildly tender, without drainage. All remaining digits: Varying degrees of toenail dystrophy, discoloration, elongation, clubbing and clinical mycosis. INGROWN NAIL PATHOLOGY: Bilateral great toes as noted. INTERDIGITAL MACERATION: Clean and dry. ULCER: no sign of ulceration or open wound . SKIN PATHOLOGY: texture, turgor, hair growth, within normal limits . Ankle / Foot: RANGE OF MOTION: Maintains functional ankle, subtalar and MTP joint range of motion without pain . 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 Mini stroke syndrome; April 2021 Plan: Notes: Patient remains well satisfied with a conservative and palliative care approach; expresses no interest in oral therapy; topical therapy is difficult due to mobility restrictions. Hygiene measures and appropriate footwear discussed. Procedure: Toenail Debridement: Aseptic technique: power/manual instrumentation: onychodebridement length and thickness, curretage of offending crypotic margins, elbert-ungual debris, providing effective pressure and symptom relief, reducing shoe and digital trauma. This note was created with the assistance of a speech recognition program. While intending to generate a timely document that accurately reflects the content of the visit, no guarantee can be provided that every grammatical or spelling mistake has been or will be identified or corrected. Thank you for your understanding. Amy Daily DPM documented in this encounter [facility] Progress note 06-20-2024 Note Date & Type Note Facility 06-20-2024 Note [facility] Subjective Alvin Boyd is a 88 y.o. 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 Dizziness and giddiness DVT (deep venous thrombosis) ([facility]) History of cardiovascular disorder Chronic disease of cardiovascular system Encounter for long-term (current) use of insulin ([facility]) Hyperlipidemia Mitral valve disorder Morbid obesity with BMI of 40.0-44.9, adult ([facility]) Osteoarthritis of right hip Pulmonary embolism ([facility]) Right knee DJD CAD S/P [...] , Rfl: omeprazole (PriLOSEC) [address] killian, , Disp: , Rfl: potassium chlo (more content not included)... [facility] Progress note 01-06-2024 Note Date & Type Note Facility 01-06-2024 Note Cardiovascular Medic [facility] SUBJECTIVE No chief complaint on file. Alvin Boyd is a 88 y.o. male here for follow-up on his hypertension and HFpEF. His son accompanied him. 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%, COPD At his last visit, [...] Problem List Diagnosis Coronary artery disease involving [place] coronary artery of [place] heart without angina pectoris Acute on chronic [...] Encounter for long-term (current) use of insulin (CMS/HCC) Hyperlipidemia Mitral valve disorder Morbid obesity with BMI of 40.0-44.9, adult (CMS/HCC) Osteoarthritis of right hip Pulmonary embolism (CMS/HCC) Right knee DJD CAD S/P percutaneous coronary angioplasty Implantable cardioverter-defibrillator (ICD) in situ Past Medical History: Diagnosis Date Atrial fibrillation (CMS/HCC) CHF (congestive heart failure) (CMS/HCC) Coronary artery disease Heart valve disease Hyperlipidemia [...] per After Visit Summary. Follow up with behzad anticoagulation for INR, Disp: , Rfl: Physical [...] oriented to person, (more content not included)... [facility] Progress note 01-06-2024 Note Date & Type [...] other systems reviewed and are negative. [facility] Progress note 12-03-2023 Note Date & Type [...] other systems reviewed and are negative. [facility] Progress note 12-03-2023 Note Date & Type Note Facility 12-03-2023 Note Cardiovascular Medic [facility] SUBJECTIVE Chief Complaint Patient presents with Hospital Follow-up Congestive Heart Failure Shortness of Breath Alvin Boyd is a 87 y.o. male here for follow-up after his recent admission to [facility]. 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 Dizziness and giddiness DVT (deep venous thrombosis) ([facility]) History of cardiovascular disorder Chronic disease of cardiovascular system Encounter for long-term (current) use of insulin ([facility]) Hyperlipidemia Mitral valve disorder Morbid obesity with BMI of 40.0-44.9, adult ([facility]) Osteoarthritis of right hip Pulmonary embolism ([facility]) Right knee DJD CAD S/P percutaneous coronary angioplasty Implantable cardioverter-defibrillator (ICD) in situ Past Medical History: Diagnosis Date Atrial fibrillation ([facility]) CHF (congestive heart failure) ([facility]) Coronary artery disease Heart valve [...] After Visit Suarez (more content not included)... [facility] Evaluation note Note Date & Type Note Facility Evaluation note Diagnosis Dermatophytosis of nail- Primary Dystrophic nail Other specified disease of nail Pain around toenail, right foot Pain around toenail, left foot documented in this encounter [facility] Summary Purpose Family History No Family History [...] section and content) DATE CREATED AUTHOR 05/19/2018 [facility] DATE CREATED AUTHOR AUTHOR'S ORGANIZ ATION 06/19/[address] [facility] DATE CREATED AUTHOR AUTHOR'S ORGANIZ ATION 05/08/2023 [facility] DATE CREATED AUTHOR AUTHOR'S ORGANIZ ATION 10/21/2024 [facility] EPIC DATE CREATED AUTHOR AUTHOR'S ORGANGEORGE ATION 11/11/2024 [facility] Care Teams (unrecognized sec tion and content) E Learning Designer Relationship Specialty Start Date End Date Rio Lal MD [address] [place] [id number] PCP - General Internal Medicine 07/29/23 E Learning Designer Relationship Specialty Start Date End Date Rio Lal MD [address] [place] [address] PCP - General Internal Medicine 07/29/23 Reason for Visit (unrecogniz ed section and content) Reason Comments Toenail Care FOR RECORDS PERTAINING TO PATIENTS WHO ARE [...] BE BASED ON THE PRIMARY CLINICAL RECORDS. [employer] provides no warranty or guarantee of the accuracy or completeness of information in this document.
--- NOTE | 2024-11-29 21:07 | XR_ITS ---
The [address] [address] Patient Name: ALVIN BOYD MRN: [id number] date: 1935 Sex: M Assigned Patient Location: ER Current Patient Location: ER Accession/Order Number: [id number] Exam Date: 11/29/2024 21:45 Report Date: 11/30/2024 00:01 At the request of: RUDI LOVING Procedure: XR chest 1V EXAM: XR chest 1V HISTORY: shortness of breath COMPARISON: Chest radiograph dated 11/26/2023. TECHNIQUE: One view of the chest was obtained. FINDINGS: A left chest cardiac pacemaker device is in place. The cardiac silhouette is enlarged though stable in size. Aortic atherosclerotic disease is seen. There is no significant pneumothorax. There are possible trace pleural effusions. There are bibasilar opacities. No acute osseous abnormality is seen. XR/XR chest 1V IMPRESSION: 1. Stable enlarged cardiac silhouette with possible trace pleural effusions and bibasilar opacities that could represent atelectasis, aspiration changes, and/or pneumonia. Electronically authenticated by: Bertha CHAN Date: 11/30/2024 00:01
--- NOTE | 2024-11-29 21:07 | ECG_ITS ---
The 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
[2024-11-29 21:33] VITALS: O2SAT 94
[2024-11-29 21:44] LABS: Basophils Percent Auto 0.4 % (0.2-2.0); Eosinophils Absolute Auto 0.1 10^3/uL (0.0-0.7); Eosinophils Percent Auto 1.1 % (0.9-7.0); Hematocrit 37.6 % (42.0-54.0); Hemoglobin 12.1 g/dL (14.0-18.0); Immature Granulocytes Abs Auto 0.03 10^3/uL (0.00-0.03); Immature Granulocytes Pct Auto 0.4 % (0.0-0.5); Lymphocytes Absolute Auto 0.8 10^3/uL (1.2-3.8); Lymphocytes Percent Auto 11.1 % (20.5-60.0); Mean Corpuscular HGB Conc 32.2 g/dL (29.9-35.2); Mean Corpuscular Hemoglobin 31.4 pg (25.9-34.0); Mean Corpuscular Volume 97.7 fL (80.0-94.0); Monocytes Absolute Auto 0.8 10^3/uL (0.3-0.8); Neutrophils Absolute Auto 5.8 10^3/uL (1.4-6.5); Platelet Count 157 10^3/uL (150-450); Red Blood Count 3.85 10^6/uL (4.70-6.10); Red Cell Distribution Width 13.2 % (11.0-15.0); White Blood Count 7.5 10^3/uL (4.0-11.0)
[2024-11-29 21:56] LABS: INR 2.11; Partial Thromboplastin Time 36.2 sec (22.3-36.2); Prothrombin Time 20.8 sec (9.0-11.6)
[2024-11-29 22:05] LABS: Anion Gap 14.9; BUN Creatinine Ratio 20.7; Carbon Dioxide 23.1 mmol/L (21.0-32.0); Chloride 102 mmol/L (98-107); Estimated GFR (African America 54 (>=60 mL/min/1.73m^2); Estimated GFR (Non-African Ame 44 (>=60 mL/min/1.73m^2); Glucose 125 mg/dL (74-106); Sodium 136 mmol/L (136-145); Troponin I High Sensitivity 39.2 pg/mL (4.0-76.1)
[2024-11-29 22:11] LABS: Influenza Virus A Antigen Negative; Influenza Virus B Antigen Negative; Internal Control Within Normal Limits
[2024-11-29 22:12] LABS: Internal Control Within Normal Limits; SARS-CoV-2 Ag NEGATIVE (NEGATIVE)
[2024-11-30] VITALS (23 sets, daily range): BP systolic 94–169; BP diastolic 62–83; PULSE 59–66; TEMP 36.6–37.7; O2SAT 90–96; BMI 34.8
--- NOTE | 2024-11-30 00:02 | PC.NURSE ---
Pt family came to check on patient results. Family notified that unfortunately our radiology scans are read elsewhere and can take over two hours for them to be read. This nurse did call [facility] and was told they had scan for one hour and 49 minutes and this scan should be up for read soon. Family upset but situation explained by both this nurse as well as physician.
--- NOTE | 2024-11-30 00:12 | ED.GENADUL1 ---
HPI HPI - General Adult General Chief complaint: Shortness of Breath/Dyspnea Stated complaint: Shortness of Breath Time Seen by Provider: 11/29/24 21:05 Source: patient Mode of arrival: ambulance Limitations: no limitations History of Present Illness HPI narrative: 88-year-old male to the emergency department with chief complaint of cough, shortness of breath. Patient reports he had been worsening over the last few days. He reports some chills at home. Cough is occasionally productive. Denies a fever. Denies any chest pain. He does report he has increasing shortness of breath when lying flat. Family reports he has not been able to sleep for several days due to to feeling so short of breath. Past medical history: CHF, COPD Related Data Home Medications ?Medication ?Instructions ?Recorded ?Confirmed atorvastatin 40 mg tablet 40 mg PO DAILY 11/26/23 11/26/23 carvedilol 12.5 mg tablet 12.5 mg PO BID 11/26/23 11/26/23 duloxetine 30 mg capsule,delayed 30 mg PO DAILY 11/26/23 11/26/23 release hydrochlorothiazide 12.5 mg tablet 12.5 mg PO BID 11/26/23 11/26/23 montelukast 10 mg tablet 10 mg PO DAILY 11/26/23 11/26/23 omeprazole 40 mg capsule,delayed 40 mg PO DAILY 11/26/23 11/26/23 release ondansetron HCl 4 mg tablet 4 mg PO DAILY 11/26/23 11/26/23 warfarin 4 mg tablet (Jantoven) 4 mg PO DAILY 11/26/23 11/26/23 Previous Rx's ?Medication ?Instructions ?Recorded azithromycin 250 mg tablet 250 mg PO DAILY 4 days #4 tabs 11/28/23 (Zithromax) cefdinir 300 mg capsule 300 mg PO BID 10 days #20 caps 11/28/23 prednisone 20 mg tablet 40 mg (2 x 20 mg) PO QD 5 days #10 11/28/23 tabs Allergies Allergy/AdvReac Type Severity Reaction Status Date / Time No Known Drug Allergies Allergy Verified 11/26/23 18:11 Opioid HPI Opioid Management Most Recent Opioid Data: No Data to Display Review of Systems ROS Status of ROS 10 or more systems reviewed and unremarkable except as noted in history and below [facility] Medical History (Updated 11/30/24 @ 00:25 by Benjie Olivares MD) Paroxysmal atrial fibrillation ?I48.0 - Paroxysmal atrial fibrillation (ICD-10) COPD exacerbation ?J44.1 - Chronic obstructive pulmonary disease with (acute) exacerbation (ICD-10) CAD (coronary artery disease) ?I25.10 - Atherosclerotic heart disease of [place] coronary artery without angina pectoris (ICD-10) H/O deep venous thrombosis ?Z86.718 - Personal history of other venous thrombosis and embolism (ICD-10) 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) ?I50.32 - Chronic diastolic (congestive) heart failure (ICD-10) Fever ?R50.9 - Fever, unspecified (ICD-10) D-dimer, elevated ?R79.89 - Other specified abnormal findings of blood chemistry (ICD-10) Hypoxemia ?R09.02 - Hypoxemia (ICD-10) Afib ?I48.91 - Unspecified atrial fibrillation (ICD-10) HLD (hyperlipidemia) ?E78.5 - Hyperlipidemia, unspecified (ICD-10) Depression ?F32.A - Depression, unspecified (ICD-10) CHF (congestive heart failure) ?I50.9 - Heart failure, unspecified (ICD-10) Stroke ?I63.9 - Cerebral infarction, unspecified (ICD-10) Heart attack ?I21.9 - Acute myocardial infarction, unspecified (ICD-10) DVT (deep venous thrombosis) ?I82.409 - Acute embolism and thrombosis of unspecified deep veins of unspecified lower extremity (ICD-10) Cataract (lens) fragments in eye following cataract surgery ?H59.029 - Cataract (lens) fragments in eye following cataract surgery, unspecified eye (ICD-10) Pacemaker ?Z95.0 - Presence of cardiac pacemaker (ICD-10) Surgical History (Updated 11/26/23 @ 21:23 by Demond Lagos) History of heart artery stent ?Z95.5 - Presence of coronary angioplasty implant and graft (ICD-10) Hx of total knee arthroplasty ?Z96.659 - Presence of unspecified artificial knee joint (ICD-10) H/O total hip arthroplasty ?Z96.649 - Presence of unspecified artificial hip joint (ICD-10) Social History (Updated 11/26/23 @ 22:25 by Jennifer Gloria) Within the past year, how often did you have a drink containing alcohol: never Score interpretation: A score less than 4 is consistent with normal alcohol consumption. Smoking status: Former smoker Non-prescribed substance use: denies use Previous occupational history: retired Highest level of school completed/degree received: high school graduate Are you now , , , , never or living with a partner: In a typical week, how many times do you talk on the telephone with family, friends, or neighbors: 3 or more times per week How often do you get together with friends or relatives: 3 or more times per week How often do you attend judaism or advent services: 1-3 times per year Little interest or pleasure in doing things: not at all Feeling down, depressed, or hopeless: not at all Feel stressed/tense/nervous/anxious/difficulty sleeping: not at all Do you think of yourself as: straight/heterosexual Gender Identity: male Exam Narrative Exam Narrative: VITALS: I have reviewed the triage vital signs. GENERAL: Well developed, well appearing elderly male in no acute distress. NEURO: Alert and oriented. Moves all extremities. Face is symmetric and expressive. EYES: PERRL. No scleral icterus or conjunctival injection. No discharge. HENT: Normocephalic, atraumatic. Hearing is grossly intact. Nares grossly patent and without discharge. Mucous membranes moist. NECK: No JVD. Patient moves neck without restriction. CARDIO: Rhythm regular. Normal rate. No murmur, rub, or gallop. Pulses equal bilaterally in the upper and lower extremity. No lower extremity edema. PULM: At the bases bilaterally. Trace Rales. mild conversational dyspnea. No increased work of breathing. GI/: Abdomen is soft and non-tender. Normoactive bowel sounds. EXTREMITIES: Symmetric muscle bulk. No joint swelling. No clubbing, cyanosis, or deformity. SKIN: Warm and dry. Normal turgor. No rash or lesions appreciated. PSYCH: Mood, affect, and interaction is appropriate to the setting. Constitutional Vital Signs, click to edit/add: Last Vital Signs Temp 97.8 F 11/29/24 20:53 Pulse 57 L 11/29/24 20:53 Resp 22 H 11/29/24 20:53 BP 123/79 11/29/24 20:53 Pulse Ox 94 L 11/29/24 21:33 O2 Del Method Room Air 11/29/24 21:33 Course Vital Signs Vital signs: Vital Signs Temperature 97.8 F 11/29/24 20:53 Pulse Rate 57 L 11/29/24 20:53 Respiratory Rate 22 H 11/29/24 20:53 Blood Pressure 123/79 11/29/24 20:53 Pulse Oximetry 95 11/29/24 20:53 Oxygen Delivery Method Room Air 11/29/24 20:53 Temperature 97.8 F 11/29/24 20:53 Pulse Rate 57 L 11/29/24 20:53 Respiratory Rate 22 H 11/29/24 20:53 Blood Pressure 123/79 11/29/24 20:53 Pulse Oximetry 94 L 11/29/24 21:33 Oxygen Delivery Method Room Air 11/29/24 21:33 Medical Decision Making MDM Narrative Medical decision making narrative: 88-year-old male to the emergency department via EMS for shortness of breath. Increasing over the last few days. He cannot sleep at night as he is really short of breath when he lays flat. Vital stable, the patient is afebrile. Cardiac workup is initiated. Swabs. Patient agrees with this plan. Lab work reviewed and noted. He has a mild DIVINE. Troponin normal. His BNP is the highest it has been. Chest x-ray concerning for bibasilar opacities versus atelectasis. In the setting of the patient's cough I am concerned this may be pneumonia. Blood cultures and lactate were sent. The orthopnea that has been increasing, increased BNP is concerning for volume overloaded state. Lasix is ordered. Case was discussed with the hospitalist who agrees admit this patient to her service. Family agrees with this plan. Medical Records Medical records reviewed: Yes I reviewed the patient's medical records Lab Data Lab results reviewed: Yes I reviewed the patient's lab results Labs: Lab Results 11/29/24 11/29/24 Range/Units 21:15 21:55 WBC 7.5 (4.0-11.0) 10^3/uL RBC 3.85 L (4.70-6.10) 10^6/uL Hgb 12.1 L (14.0-18.0) g/dL Hct 37.6 L (42.0-54.0) % MCV 97.7 H (80.0-94.0) fL MCH 31.4 (25.9-34.0) pg MCHC 32.2 (29.9-35.2) g/dL RDW 13.2 (11.0-15.0) % Plt Count 157 (150-450) 10^3/uL MPV 10.0 (9.5-13.5) fL Neut % (Auto) 77.0 H (43.0-75.0) % Lymph % (Auto) 11.1 L (20.5-60.0) % [place] % (Auto) 10.0 (1.7-12.0) % Eos % (Auto) 1.1 (0.9-7.0) % Baso % (Auto) 0.4 (0.2-2.0) % Neut # (Auto) 5.8 (1.4-6.5) 10^3/uL Lymph # (Auto) 0.8 L (1.2-3.8) 10^3/uL [place] # (Auto) 0.8 (0.3-0.8) 10^3/uL Eos # (Auto) 0.1 (0.0-0.7) 10^3/uL Baso # (Auto) 0.0 (0.0-0.1) 10^3/uL Abs Immat Gran (auto) 0.03 (0.00-0.03) 10^3/uL Imm/Tot Granulo (auto) 0.4 (0.0-0.5) % PT 20.8 H (9.0-11.6) sec INR 2.11 APTT 36.2 (22.3-36.2) sec Sodium 136 (136-145) mmol/L Potassium 4.0 (3.5-5.1) mmol/L Chloride 102 (98-107) mmol/L Carbon Dioxide 23.1 (21.0-32.0) mmol/L Anion Gap 14.9 BUN 31.0 H (7.0-18.0) mg/dL Creatinine 1.50 H (0.70-1.30) mg/dL Est GFR ( Amer) 54 L (>=60 mL/min/1.73m^2) Est GFR (Non-Af Amer) 44 L (>=60 mL/min/1.73m^2) BUN/Creatinine Ratio 20.7 Glucose 125 H (74-106) mg/dL Calcium 9.0 (8.5-10.1) mg/dL Troponin I High Sens 39.2 (4.0-76.1) pg/mL NT-Pro-B Natriuret Pep 3689.0 H* (<=1800.0) pg/mL Influenza Type A Ag Negative Influenza Type B Ag Negative SARS-CoV-2 Ag (CV2AG) Negative (NEGATIVE) Imaging Data Chest x-ray: Attestation: I have reviewed the pertinent imaging results. Radiologist's impression: ITS Impressions Chest X-Ray 11/29/24 21:07 IMPRESSION: 1. Stable enlarged cardiac silhouette with possible trace pleural effusions and bibasilar opacities that could represent atelectasis, aspiration changes, and/or pneumonia. Electronically authenticated by: Bertha CHAN Date: 11/30/2024 00:01 ECG Data Attestation: I personally reviewed and interpreted this ECG as follows: (Ventricularly paced rhythm at a rate of 53. No STEMI. Normal QTc. ) Discharge Plan Discharge Chief Complaint: Shortness of Breath/Dyspnea Clinical Impression: Community acquired pneumonia, Congestive heart failure Patient Disposition: Admitted as Observation Time of Disposition Decision: 00:25 Condition: Fair Prescriptions / Home Meds: No Action atorvastatin 40 mg tablet 40 mg PO DAILY carvedilol 12.5 mg tablet 12.5 mg PO BID duloxetine 30 mg capsule,delayed release(DR/EC) 30 mg PO DAILY hydrochlorothiazide 12.5 mg tablet 12.5 mg PO BID montelukast 10 mg tablet 10 mg PO DAILY omeprazole 40 mg capsule,delayed release(DR/EC) 40 mg PO DAILY ondansetron HCl 4 mg tablet 4 mg PO DAILY warfarin [Jantoven] 4 mg tablet 4 mg PO DAILY prednisone 20 mg Tablet 40 mg PO QD 5 Days Qty: 10 0RF azithromycin [Zithromax] 250 mg tablet 250 mg PO DAILY 4 Days Qty: 4 0RF Rx Instructions: start on day 2 of therapy cefdinir 300 mg capsule 300 mg PO BID 10 Days Qty: 20 0RF Print Language: Italian Referrals: REN LAL DO [Primary Care Provider] - 1 week
[2024-11-30] MEDS: FUROSEMIDE 20 MG/2 ML VIAL IVP (00:26)
[2024-11-30] MEDS: CEFTRIAXONE 1,000 MG in 0.9 % SODIUM CHLORIDE 50 ML 100 MG IV (00:29)
[2024-11-30 00:38] LABS: Lactate/Lactic Acid 2.2 mmol/L (0.4-2.0)
--- OUTSIDE RECORDS SUMMARY | 2024-11-30 01:01 | XMS_ITS | CCD ---
Author Organization [facility] ion [facility] Care Team Providers Care Medical Care Evaluation Specialist Name Role Phone AUXIER, KENDRA SASHA Unavailable [...] Unavailabl e MORLEY, LEXI MILKA Unavailable Unavailable [place], Kendra Sasha~[phone] Unavailable Unavailable ValoneRio Marshall Unavailable Unavailabl e [...] Unavailable Valone Rio CAMACHO Primary Care Provider [phone] AMY DAILY Attending Unavailable AMY DAILY Attending Unavailable AMY DAILY Attending Unavailable MAY DAILY Attending Unavailable CUCA KNOTT Referring Unavailable DOUG GIBSON Attending Unavailable DOUG GIBSON Attending Unavailable CUCA KNOTT Referring Unavailable PARISA SOLARES Attending Unavailable Allergies Allergy Classification Reported Allergen(s) Allergy Type Date of Onset Reaction(s) Facility (1 source) 55009,00; Translations: [Unknown] Propensity to adverse reactions (disorder) 9 [facility] Repository Medications Current Medications Medication Drug [...] myocardial infarction; Translations: [Atherosclerotic heart disease of [place] coronary artery without angina pectoris] Onset: 2 [...] Onset: 3 Episodic Other aftercare (1 source) 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 Patient informed. [facility] Office Visiton 06-20-2024 Follow-up visit [id number] Calin Boyd Laura 1935 M Date Provider Department Center 06/20/2024 PARISA MORALES [facility] No family history on file Level of Service:19270 [place] OFFICE/OUTPATIENT ESTABLISHED MOD MDM 30 MIN [facility] 36on 05-05-2024 [address] Knott s/p device check on 04/19/2024. [facility] 01-06-2024 Follow-up visit [id number] Calin Boyd Laura 1935 M Date Provider Department Center 01/06/2024 DOUG ROGERS GREG [facility] No family history on file Level of Service:63143 [place] OFFICE/OUTPATIENT ESTABLISHED MOD MDM 30 MIN [facility] Orders Onlyon 12-10-2023 Orders Only [id number] Calin Boyd Laura 1935 M Date Provider Department Center 12/10/2023 SHIRIN ANDERSON GREG [facility] No family history on file [facility] 36on 12-08-2023 36 BP and weight seem l muna they are improving. Can we schedule for follow-up in clinic in 2-4 weeks. Thanks! [facility] 37on 12-03-2023 37 *Check blood pressur e 1-2 hours after medications. *Take lasix 40mg daily x3 days along with potassium. *Monitor daily weights. [facility] Office Visiton 12-03-2023 Follow-up visit [id number] Calin Boyd 1935 M Date Provider Department Center 12/03/2023 DOUG ROGERS CARD Tina [facility] No family history on file Level of Service:65240 RI OFFICE/OUTPATIENT ESTABLISHED MOD MDM 30 MIN Reason for Visit and Comments: Hospital Follow-up [832] Congestive Heart Failure [127] Shortness of Breath [540632] Normal [facility] CBC AUTO DIFFon 12-18-2022 BASO # 0.1 103/ul Normal 0.0-0.1 [facility] Comment on above: Performed By: #### C BC #### [facility] [address] [place] [address] Dr. Dana Angulo Basophils/100 WBC (Bld) 0.8 % Normal 0.2-2.0 [facility] Comment on above: Performed By: #### C BC #### [facility] [address] [place] [address] Dr. Dana Angulo EO # 0.1 103/ul Normal 0.0-0.7 [facility] Comment on above: Performed By: #### C BC #### [facility] [address] [place] [address] Dr. Dana Angulo Eosinophils/100 WBC (Bld) 0.9 % Normal 0.9-7.0 [facility] Comment on above: Performed By: #### C BC #### [facility] [address] [place] [address] Dr. Dana Angulo Erythrocyte distribution width (RBC) [Ratio] 13.2 % Normal 11.0-15.0 [facility] Comment on above: Performed By: #### C BC #### [facility] [address] [place] [address] Dr. Dana Angulo Hematocrit (Bld) [Volume fraction] 37.1 % Critically low 42.0-54.0 [facility] Comment on above: Performed By: #### C BC #### [facility] [address] [place] [address] Dr. Dana Angulo Hemoglobin (Bld) [Mass/Vol] 12.1 g/dL Critically low 14.0-18.0 [facility] Comment on above: Performed By: #### C BC #### [facility] [address] [place] [address] Dr. Dana Angulo IG # 0.03 10e3/ul Normal 0.00-0.03 [facility] Comment on above: Performed By: #### C BC #### [facility] [address] [place] [address] Dr. Dana Angulo IG % 0.4 % Normal 0.0-0.5 [facility] Comment on above: Performed By: #### C BC #### [facility] [address] [place] [address] Dr. Dana Angulo LYMPH # 1.4 103/ul Normal 1.2-3.8 [facility] Comment on above: Performed By: #### C BC #### [facility] [address] [place] [address] Dr. Dana Angulo Lymphocytes/100 WBC (Bld) 19.0 % Critically low 20.5-60.0 [facility] Comment on above: Performed By: #### C BC #### [facility] [address] [place] [address] Dr. Dnaa Angulo MANUAL DIFF REQ NO Normal [facility] Comment on above: Performed By: #### C BC #### [facility] [address] [place] [address] Dr. Dana Angulo MCH (RBC) [Entitic mass] 30.6 pg Normal 25.9-34.0 [facility] Comment on above: Performed By: #### C BC #### [facility] [address] [place] [address] Dr. Dana Angulo MCHC (RBC) [Mass/Vol] 32.6 g/dL Normal 29.9-35.2 [facility] Comment on above: Performed By: #### C BC #### [facility] [address] [place] [address] Dr. Dana Angulo MCV (RBC) [Entitic vol] 93.7 fL Normal 80.0-94.0 [facility] Comment on above: Performed By: #### C BC #### [facility] [address] [address] [address] Dana Angulo MONO # 0.5 103/ul Normal 0.3-0.8 [facility] Comment on above: Performed By: #### C BC #### [facility] [address] [address] [address] Dana Angulo Monocytes/100 WBC (Bld) 7.2 % Normal 1.7-12.0 [facility] Comment on above: Performed By: #### C BC #### [facility] [address] [address] [address] Dana Angulo NEUT # 5.4 103/ul Normal 1.4-6.5 [facility] Comment on above: Performed By: #### C BC #### [facility] [address] [place] [address] Dr. Dana Angulo Neutrophils/100 WBC (Bld) 71.7 % Normal 43.0-75.0 [facility] Comment on above: Performed By: #### C BC #### [facility] [address] [place] [address] Dr. Dana Angulo Platelet mean volume (Bld) [Entitic vol] 9.6 fL Normal 9.5-13.5 [facility] Comment on above: Performed By: #### C BC #### [facility] [address] [place] [address] Dr. Dana Angulo PLT 165 103/ul Normal 150-450 [facility] Comment on above: Performed By: #### C BC #### [facility] [address] [place] [address] Dr. Dana Angulo RBC 3.96 106/ul Critically low 4.70-6.10 [facility] Comment on above: Performed By: #### C BC #### [facility] [address] [address] [address] Dana Angulo WBC 7.5 103/ul Normal 4.0-11.0 [facility] Comment on above: Performed By: #### C BC #### [facility] [address] [address] [address] Dana Angulo ER URINE PROFILEon 3 Bilirubin Ql (U) Negative Normal NEGATIVE [facility] Comment on above: Performed By: #### Marino KENYON UMICRO #### [facility] [address] [address] [address] Dana Angulo Clarity (U) CLEAR Normal CLEAR [facility] Comment on above: Performed By: #### Marino KENYON UMICRO #### [facility] [address] [address] [address] Dana Angulo Color (U) LT. YELLOW Normal YELLOW [facility] Comment on above: Performed By: #### ANGELINA FRIENDRO #### [facility] [address] [place] [address] Dr. Dana ROBERTSAHDennis A micrscopic examina tion will be performed if indicated. Normal [facility] Comment on above: Performed By: #### Marino KENYON UMICRO #### [facility] [address] [place] [address] Dr. Dana Angulo Glucose Ql (U) Negative Normal NEGATIVE [facility] Comment on above: Performed By: #### GIANCARLO FRIENDICRO #### [facility] [address] [place] [address] Dr. Dana Angulo Hemoglobin Ql (U) Negative Normal NEGATIVE [facility] Comment on above: Performed By: #### GIANCARLO FRIENDICRO #### [facility] [address] [address] [address] Dana Angulo Ketones Ql (U) Negative Normal NEGATIVE [facility] Comment on above: Performed By: #### GIANCARLO FRIENDICRO #### [facility] [address] [place] [address] Dr. Dana Angulo LEUKOCYTES TRACE Abnormal NEGATIVE [facility] Comment on above: Performed By: #### Marino KENYON UMICRO #### [facility] [address] [place] [address] Dr. Dana Angulo Nitrite Ql (U) Negative Normal NEGATIVE [facility] Comment on above: Performed By: #### E KOSTAS, UMICRO #### [facility] [address] [place] [address] Dr. Dana Angulo pH (U) 6.0 [pH] Normal 5-9 [facility] Comment on above: Performed By: #### E KOSTAS, UMICRO #### [facility] [address] [place] [address] Dr. Dana Angulo SPEC GRAVITY 1.015 Normal 1.005-<=1.02 5 [facility] Comment on above: Performed By: #### Marino KENYON, UMICRO #### [facility] [address] [place] [address] Dr. Dana Angulo UA PROTEIN Negative Normal NEGATIVE/ TRACE [facility] Comment on above: Performed By: #### Marino KENYON UMICRO #### [facility] [address] [place] [address] Dr. Dana Angulo UR MICRO IND INDICATED Normal [facility] Comment on above: Performed By: #### E KOSTAS UMICRO #### [facility] [address] [place] [address] Dr. Dana Angulo Urobilinogen Qn (U) 0.2 {Delia'U}/dL Normal 0.2 - 1.0 [facility] Comment on above: Performed By: #### Marino KENYON, UMICRO #### [facility] [address] [place] [address] Dr. Dana Angulo LACTATE/LACTIC ACIDon 2022 Lactate [Moles/Vol] 1.1 mmol/L Normal 0.4-1.9 [facility] Comment on above: Performed By: #### L ACT #### [facility] [address] [place] [address] Dr. Dana Angulo LIPASEon 12-18-2022 Lipase [Catalytic activity/Vol] 68.0 U/L Critically low 73.0-393.0 [facility] Comment on above: Performed By: #### C BC #### [facility] [address] [place] [address] Dr. Dana Angulo OCC BLD IMMUNO SCREENon 11-30 OCCULT BLOOD Negative Normal NEGATIVE [facility] Comment on above: Performed By: #### H STROPN #### [facility] [address] [place] [address] Dr. Dana Angulo PROF 14(COMP METB)on 023 Albumin [Mass/Vol] 3.8 g/dL Normal 3.4-5.0 [facility] Comment on above: Performed By: #### C BC #### [facility] [address] [place] [address] Dr. Dana Angulo Albumin/Globulin [Mass ratio] 1.3 {ratio} Normal [facility] Comment on above: Performed By: #### C BC #### [facility] [address] [place] [address] Dr. Dana Angulo ALP [Catalytic activity/Vol] 70 U/L Normal 46-116 [facility] Comment on above: Performed By: #### C BC #### [facility] [address] [place] [address] Dr. Dana Angulo ALT [Catalytic activity/Vol] 22 U/L Normal 16-63 [facility] Comment on above: Performed By: #### C BC #### [facility] [address] [place] [address] Dr. Dana Angulo Anion gap [Moles/Vol] 13.5 mmol/L Normal [facility] Comment on above: Performed By: #### C BC #### [facility] [address] [place] [address] Dr. Dana Angulo AST [Catalytic activity/Vol] 25 U/L Normal 15-37 [facility] Comment on above: Performed By: #### C BC #### [facility] [address] [place] [address] Dr. Dana Angulo Bilirubin [Mass/Vol] 1.0 mg/dL Normal 0.2-1.0 [facility] Comment on above: Performed By: #### C BC #### [facility] [address] [place] [address] Dr. Dana Angulo Calcium [Mass/Vol] 9.7 mg/dL Normal 8.5-10.1 [facility] Comment on above: Performed By: #### C BC #### [facility] [address] [address] [address] Dana Angulo Chloride [Moles/Vol] 103 mmol/L Normal 98-107 [facility] Comment on above: Performed By: #### C BC #### [facility] [address] [place] [address] Dr. Dana Angulo CO2 [Moles/Vol] 25.1 mmol/L Normal 21.0-32.0 [facility] Comment on above: Performed By: #### C BC #### [facility] [address] [place] [address] Dr. Dana Angulo Creatinine [Mass/Vol] 1.07 mg/dL Normal 0.70-1.30 [facility] Comment on above: Performed By: #### C BC #### [facility] [address] [place] [address] Dr. Dana Angulo EGFR-AF SURINAMESE >60 Normal >=60 [facility] Comment on above: Performed By: #### C BC #### [facility] [address] [place] [address] Dr. Dana Angulo EGFR-NON AF SURINAMESE >60 Normal >=60 [facility] Comment on above: Performed By: #### C BC #### [facility] [address] [place] [address] Dr. Dana Angulo Globulin (S) [Mass/Vol] 3.0 g/dL Normal [facility] Comment on above: Performed By: #### C BC #### [facility] [address] [place] [address] Dr. Dana Angulo Glucose [Mass/Vol] 115 mg/dL Critically high 74-106 [facility] Comment on above: Performed By: #### C BC #### [facility] [address] [place] [address] Dr. Dana Angulo Potassium [Moles/Vol] 3.6 mmol/L Normal 3.5-5.1 [facility] Comment on above: Performed By: #### C BC #### [facility] [address] [address] [address] Dana Angulo Protein [Mass/Vol] 6.8 g/dL Normal 6.4-8.2 [facility] Comment on above: Performed By: #### C BC #### [facility] [address] [address] [address] Dana Angulo Sodium [Moles/Vol] 138 mmol/L Normal 136-145 [facility] Comment on above: Performed By: #### C BC #### [facility] [address] [address] [address] Dana Angulo Urea nitrogen [Mass/Vol] 39.0 mg/dL Critically high 7.0-18.0 [facility] Comment on above: Performed By: #### C BC #### [facility] [address] [address] [address] Dana Angulo Urea nitrogen/Creatinin e [Mass ratio] 36.4 mg/mg Normal [facility] Comment on above: Performed By: #### C BC #### [facility] [address] [address] [address] Dana Angulo PROTIMEon 12-18-2022 INR Coag (PPP) [Relative time] 2.15 {INR} Normal [facility] Comment on above: Performed By: #### P T, PTT #### [facility] [address] [place] [address] Dr. Dana Angulo INR GUIDELINES SEE BELOW Normal [facility] Comment on above: Result Comment: BETTINA RED INR: 2.0 - 3.0 CONDITIONS NOT LISTED BELOW 2.5 - 3.5 FOR PROSTHETIC HEART VALVE REPLACEMENT 2.5 - 3.5 RECURRENT THROMBOSIS Performed By: #### P T, PTT #### [facility] [address] [place] [address] Dr. Dana Angulo PT Coag (PPP) [Time] 21.8 s Critically high 9.0-11.6 [facility] Comment on above: Performed By: #### P T, PTT #### [facility] [address] [place] [address] Dr. Dana Angulo PTTon 12-18-2022 aPTT Coag (Bld) [Time] 35.3 s Normal 22.3-36.2 [facility] Comment on above: Performed By: #### P T, PTT #### [facility] [address] [place] [address] Dr. Dana Angulo TROPONIN, HIGH SENSITIVITYon 12-18-2022 HSTROP 37.2 pg/mL Normal 4.0-76.1 [facility] Comment on above: Result Comment: CUT- OFF POINTS HAVE BEEN ESTABLISHED BASED ON THE FOURTH UNIVERSAL DEFINITIONS OF MYOCARDIAL INFARCTION. THE UPPER REFERENCE LIMIT (URL) OF TROPONIN, DEFINED THE 99TH PERCENTILE OF cTnI DISTRIBUTION IN A REFERENCE POPULATION, HAS BEEN CONFIRMED THE DECISION THRESHOLD FOR NM DIAGNOSIS. Performed By: #### H HUMPHREYPN #### [facility] [address] [place] [address] Dr. Dana Angulo HSTROP 39.8 pg/mL Normal 4.0-76.1 [facility] Comment on above: Result Comment: CUT- OFF POINTS HAVE BEEN ESTABLISHED BASED ON THE FOURTH UNIVERSAL DEFINITIONS OF MYOCARDIAL INFARCTION. THE UPPER REFERENCE LIMIT (URL) OF TROPONIN, DEFINED THE 99TH PERCENTILE OF cTnI DISTRIBUTION IN A REFERENCE POPULATION, HAS BEEN CONFIRMED THE DECISION THRESHOLD FOR NM DIAGNOSIS. Performed By: #### H HUMPHREYPN #### [facility] [address] [place] [address] Dr. Dana Angulo URINE MICROSCOPIC ONLYon BACTERIA NONE SEEN Normal NONE SEEN [facility] Comment on above: Performed By: #### ANGELINA FRIENDRO #### [facility] [address] [place] [address] Dr. Dana Angulo Bacteria identified Cx Nom (U) NOT INDICATED Normal [facility] Comment on above: Performed By: #### ANGELINA FRIENDRO #### [facility] [address] [place] [address] Dr. Dana Angulo CAST NONE SEEN Normal NONE SEEN [facility] Comment on above: Performed By: #### ANGELINA FRIENDRO #### [facility] [address] [place] [address] Dr. Dana Angulo Crystals LM Nom (Urine sed) NONE SEEN Normal NONE SEEN [facility] Comment on above: Performed By: #### E RUR, UMICRO #### [facility] [address] [place] [address] Dr. Dana Angulo Epithelial cells LM Ql (Urine sed) FEW Abnormal NONE SEEN /RARE [facility] Comment on above: Performed By: #### E RUR, UMICRO #### [facility] [address] [place] [address] Dr. Dana Angulo MUCOUS NONE SEEN Normal NONE SEEN [facility] Comment on above: Performed By: #### E RUR, UMICRO #### [facility] [address] [place] [address] Dr. Dana Angulo RBC NONE SEEN Abnormal 0-2 [facility] Comment on above: Performed By: #### E RUR, UMICRO #### [facility] [address] [place] [address] Dr. Dana Angulo WBC 2-5 Abnormal NONE SEEN [facility] Comment on above: Performed By: #### E RUR, UMICRO #### [facility] [address] [place] [address] Dr. Dana Angulo US SINGLE QUAD RT [...] Date: 2022-12-18 13:05 Normal [facility] BNPon 11-11-2022 Natriuretic peptide B (Bld) [Mass/Vol] 2364.0 pg/mL Critically high <=1,800.0 [facility] Comment on above: Performed By: #### H STROPN #### [facility] [address] [place] [address] Dr. Dana Angulo BUNon 11-11-2022 Urea nitrogen [Mass/Vol] 18.0 mg/dL Normal 7.0-18.0 [facility] Comment on above: Performed By: #### H STROPN #### [facility] [address] [place] [address] Dr. Dana Angulo CBC AUTO DIFFon 11-11-2022 BASO # 0.0 103/ul Normal 0.0-0.1 [facility] Comment on above: Performed By: #### C BC #### [facility] [address] [place] [address] Dr. Dana Angulo Basophils/100 WBC (Bld) 0.6 % Normal 0.2-2.0 [facility] Comment on above: Performed By: #### C BC #### [facility] [address] [place] [address] Dr. Dana Angulo EO # 0.1 103/ul Normal 0.0-0.7 [facility] Comment on above: Performed By: #### C BC #### [facility] [address] [place] [address] Dr. Dana Angulo Eosinophils/100 WBC (Bld) 1.3 % Normal 0.9-7.0 [facility] Comment on above: Performed By: #### C BC #### [facility] [address] [place] [address] Dr. Dana Angulo Erythrocyte distribution width (RBC) [Ratio] 13.9 % Normal 11.0-15.0 [facility] Comment on above: Performed By: #### C BC #### [facility] [address] [place] [address] Dr. Dana Angulo Hematocrit (Bld) [Volume fraction] 36.2 % Critically low 42.0-54.0 [facility] Comment on above: Performed By: #### C BC #### [facility] [address] [place] [address] Dr. Dana Angulo Hemoglobin (Bld) [Mass/Vol] 11.4 g/dL Critically low 14.0-18.0 [facility] Comment on above: Performed By: #### C BC #### [facility] [address] [place] [address] Dr. Dana Angulo IG # 0.02 10e3/ul Normal 0.00-0.03 [facility] Comment on above: Performed By: #### C BC #### [facility] [address] [place] [address] Dr. Dana Angulo IG % 0.3 % Normal 0.0-0.5 [facility] Comment on above: Performed By: #### C BC #### [facility] [address] [place] [address] Dr. Dana Angulo LYMPH # 1.4 103/ul Normal 1.2-3.8 [facility] Comment on above: Performed By: #### C BC #### [facility] [address] [place] [address] Dr. Dana Angulo Lymphocytes/100 WBC (Bld) 19.8 % Critically low 20.5-60.0 [facility] Comment on above: Performed By: #### C BC #### [facility] [address] [place] [address] Dr. Dana Angulo MANUAL DIFF REQ NO Normal [facility] Comment on above: Performed By: #### C BC #### [facility] [address] [place] [address] Dr. Dana Angulo MCH (RBC) [Entitic mass] 30.9 pg Normal 25.9-34.0 [facility] Comment on above: Performed By: #### C BC #### [facility] [address] [address] [address] Dana Angulo MCHC (RBC) [Mass/Vol] 31.5 g/dL Normal 29.9-35.2 [facility] Comment on above: Performed By: #### C BC #### [facility] [address] [address] [address] Dana Angulo MCV (RBC) [Entitic vol] 98.1 fL Critically high 80.0-94.0 [facility] Comment on above: Performed By: #### C BC #### [facility] [address] [address] [address] Dana Angulo MONO # 0.5 103/ul Normal 0.3-0.8 [facility] Comment on above: Performed By: #### C BC #### [facility] [address] [address] [address] Dana Angulo Monocytes/100 WBC (Bld) 6.9 % Normal 1.7-12.0 [facility] Comment on above: Performed By: #### C BC #### [facility] [address] [address] [address] Dana Angulo NEUT # 5.1 103/ul Normal 1.4-6.5 [facility] Comment on above: Performed By: #### C BC #### [facility] [address] [address] [address] Dana Angulo Neutrophils/100 WBC (Bld) 71.1 % Normal 43.0-75.0 [facility] Comment on above: Performed By: #### C BC #### [facility] [address] [address] [address] Dana Angulo Platelet mean volume (Bld) [Entitic vol] 9.4 fL Critically low 9.5-13.5 [facility] Comment on above: Performed By: #### C BC #### [facility] [address] [address] [address] Dana Angulo PLT 164 103/ul Normal 150-450 [facility] Comment on above: Performed By: #### C BC #### [facility] [address] [address] [address] Dana Angulo RBC 3.69 106/ul Critically low 4.70-6.10 [facility] Comment on above: Performed By: #### C BC #### [facility] [address] [address] [address] Dana Angulo WBC 7.1 103/ul Normal 4.0-11.0 [facility] Comment on above: Performed By: #### C BC #### [facility] [address] [address] [address] Dana Angulo CREATININEon 11-11-2022 Creatinine [Mass/Vol] 1.10 mg/dL Normal 0.70-1.30 [facility] Comment on above: Performed By: #### H STROPN #### [facility] [address] [place] [address] Dr. Dana Angulo EGFR-AF SURINAMESE >60 Normal >=60 [facility] Comment on above: Result Comment: Prev iously reported as: >77 On 11/11/2022 10:45 By BL3 Previously reported as: (blank) On 11/11/2022 10:44 By BL3 Performed By: #### H STROPN #### [facility] [address] [place] [address] Dr. Dana Angulo EGFR-NON AF SURINAMESE >60 Normal >=60 [facility] Comment on above: Result Comment: Prev iously reported as: >64 On 11/11/2022 10:45 By BL3 Previously reported as: (blank) On 11/11/2022 10:44 By BL3 Performed By: #### H STROPN #### [facility] [address] [place] [address] Dr. Dana Angulo CULTURE URINEon 11-11-2022 CULTURE URINE Culture Observations : NO GROWTH. Normal [facility] Comment on above: Performed By: #### C BC #### [facility] [address] [place] [address] Dr. Dana Angulo ELECTROLYTESon 11-11-2022 Anion gap [Moles/Vol] 12.7 mmol/L Normal [facility] Comment on above: Performed By: #### H STROPN #### [facility] [address] [place] [address] Dr. Dana Angulo Chloride [Moles/Vol] 103 mmol/L Normal 98-107 [facility] Comment on above: Performed By: #### H STROPN #### [facility] [address] [place] [address] Dr. Dana Angulo CO2 [Moles/Vol] 29.0 mmol/L Normal 21.0-32.0 [facility] Comment on above: Performed By: #### H STROPN #### [facility] [address] [place] [address] Dr. Dana Angulo Potassium [Moles/Vol] 4.7 mmol/L Normal 3.5-5.1 [facility] Comment on above: Performed By: #### H STROPN #### [facility] [address] [place] [address] Dr. Dana Angulo Sodium [Moles/Vol] 140 mmol/L Normal 136-145 [facility] Comment on above: Performed By: #### H STROPN #### [facility] [address] [place] [address] Dr. Dana Angulo GLYCOHEMOGLOBIN A1Con 2021 ADA RECOMMENDATION SEE BELOW Normal [facility] Comment on above: Result Comment: ADA RECOMMENDED LIMIT 4.0 - 6.0 ADA THERAPEUTIC TARGET < 7.0 ACTION SUGGESTED > 7.0 Performed By: #### H STROPN #### [facility] [address] [place] [address] Dr. Dana Angulo Glucose [Mass/Vol] 120 mg/dL Normal [facility] Comment on above: Performed By: #### H STROPN #### [facility] [address] [place] [address] Dr. Dana Angulo HbA1c (Bld) [Mass fraction] 5.8 % Normal 4.5-6.2 [facility] Comment on above: Performed By: #### H STROPN #### [facility] [address] [place], [place] [id number] Dr. Dana Angulo LIPID PROFILEon 11-11-2022 CHOL-HDL RATIO NORM SEE BELOW Normal [facility] Comment on above: Result Comment: 3.3 - 4.4 LOW RISK 4.4 - 7.1 AVERAGE RISK 7.1 - 11.0 MODERATE RISK >11.0 HIGH RISK Performed By: #### H STROPN #### [facility] [address] [address] [address] Dana Angulo Cholesterol [Mass/Vol] 91 mg/dL Normal <=200 [facility] Comment on above: Performed By: #### H STROPN #### [facility] [address] [address] [address] Dana Angulo Cholesterol in HDL [Mass/Vol] 49 mg/dL Normal 40-60 [facility] Comment on above: Performed By: #### H STROPN #### [facility] [address] [address] [address] Dana Angulo Cholesterol in LDL [Mass/Vol] 29.4 mg/dL Normal [facility] Comment on above: Performed By: #### H STROPN #### [facility] [address] [address] [address] Dana Angulo Cholesterol.total/ Cholesterol in HDL [Mass ratio] 1.9 {ratio} Normal [facility] Comment on above: Performed By: #### H STROPN #### [facility] [address] [address] [address] Dana Angulo HDL NORMAL > or = 60 mg/dl - LO W CARDIOVASCULAR RISK <40 mg/dl - HIGH CARDIOVASCULAR RISK Normal [facility] Comment on above: Performed By: #### H STROPN #### [facility] [address] [address] [address] Dana Angulo LDL CALC NORMAL SEE BELOW Normal [facility] Comment on above: Result Comment: <100 mg/dl OPTIMAL 100 - 129 mg/dl NEAR OR ABOVE OPTIMAL 130 - 159 mg/dl BORDERLINE HIGH 160 - 189 mg/dl HIGH >190 mg/dl VERY HIGH Performed By: #### H STROPN #### [facility] [address] [address] [address] Dana Angulo Triglyceride [Mass/Vol] 63 mg/dL Normal <=150 [facility] Comment on above: Performed By: #### H STROPN #### [facility] [address] [place] [address] Dr. Dana Angulo VLDL CALC 12.6 mg/dL Normal [facility] Comment on above: Performed By: #### H STROPN #### [facility] [address] [place] [address] Dr. Dana Angulo LIVER PROFILEon 11-11-2022 Albumin [Mass/Vol] 3.7 g/dL Normal 3.4-5.0 [facility] Comment on above: Performed By: #### H STROPN #### [facility] [address] [place] [address] Dr. Dana Angulo Albumin/Globulin [Mass ratio] 1.2 {ratio} Normal [facility] Comment on above: Performed By: #### H STROPN #### [facility] [address] [place] [address] Dr. Dana Angulo ALP [Catalytic activity/Vol] 68 U/L Normal 46-116 [facility] Comment on above: Performed By: #### H STROPN #### [facility] [address] [place] [address] Dr. Dana Angulo ALT [Catalytic activity/Vol] 20 U/L Normal 16-63 [facility] Comment on above: Performed By: #### H STROPN #### [facility] [address] [place] [address] Dr. Dana Angulo AST [Catalytic activity/Vol] 21 U/L Normal 15-37 [facility] Comment on above: Performed By: #### H STROPN #### [facility] [address] [place] [address] Dr. Dana Angulo BILI, CONJUGATED 0.3 mg/dL Critically high 0.0-0.2 [facility] Comment on above: Performed By: #### H STROPN #### [facility] [address] [place] [address] Dr. Dana Angulo Bilirubin [Mass/Vol] 0.9 mg/dL Normal 0.2-1.0 [facility] Comment on above: Performed By: #### H STROPN #### [facility] [address] [place] [address] Dr. Dana Angulo Globulin (S) [Mass/Vol] 3.1 g/dL Normal [facility] Comment on above: Performed By: #### H STROPN #### [facility] [address] [place] [address] Dr. Dana Angulo Protein [Mass/Vol] 6.8 g/dL Normal 6.4-8.2 [facility] Comment on above: Performed By: #### H STROPN #### [facility] [address] [place] [address] Dr. Dana Angulo TSHon 11-11-2022 TSH 3.426 uIU/mL Normal 0.358-3.740 [facility] Comment on above: Performed By: #### H STROPN #### [facility] [address] [place] [address] Dr. Dana Angulo UA (CLEAN/CATCH) DEHYDRATOR OPERATOR/MICRO I F IND.on 11-11-2022 Bilirubin Ql (U) Negative Normal NEGATIVE [facility] Comment on above: Performed By: #### U ACSREGGIE ICRO #### [facility] [address] [place] [address] Dr. Dana Angulo Clarity (U) CLEAR Normal CLEAR [facility] Comment on above: Performed By: #### U ACSREGGIE UMICRO #### [facility] [address] [place] [address] Dr. Dana Angulo Color (U) YELLOW Normal YELLOW [facility] Comment on above: Performed By: #### U ACSREGGIE UMICRO #### [facility] [address] [place] [address] Dr. Dana Angulo Glucose Ql (U) Negative Normal NEGATIVE [facility] Comment on above: Performed By: #### U ACSREGGIE UMICRO #### [facility] [address] [place] [address] Dr. Dana Angulo Hemoglobin Ql (U) Negative Normal NEGATIVE [facility] Comment on above: Performed By: #### U ACSIND, UMICRO #### [facility] [address] [address] [address] Dana Angulo Ketones Ql (U) TRACE Abnormal NEGATIVE [facility] Comment on above: Performed By: #### U ACSIND, UMICRO #### [facility] [address] [place] [address] Dr. Dana Angulo LEUKOCYTES SMALL Abnormal NEGATIVE [facility] Comment on above: Performed By: #### U ACSIND, UMICRO #### [facility] [address] [address] [address] Dana Angulo Nitrite Ql (U) Negative Normal NEGATIVE [facility] Comment on above: Performed By: #### U ACSIND, UMICRO #### [facility] [address] [place] [address] Dr. Dana Angulo pH (U) 6.0 [pH] Normal 5-9 [facility] Comment on above: Performed By: #### U ACSIND, UMICRO #### [facility] [address] [place] [address] Dr. Dana Angulo SPEC GRAVITY 1.015 Normal 1.005-<=1.02 5 [facility] Comment on above: Performed By: #### U ACSIND, UMICRO #### [facility] [address] [place] [address] Dr. Dana Angulo UA PROTEIN TRACE Normal NEGATIVE/ TRACE [facility] Comment on above: Performed By: #### U ACSIND, UMICRO #### [facility] [address] [place] [address] Dr. Dana Angulo UR MICRO IND INDICATED Normal [facility] Comment on above: Performed By: #### U ACSIND, UMICRO #### [facility] [address] [place] [address] Dr. Dana Angulo Urobilinogen Qn (U) 1.0 {Delia'U}/dL Normal 0.2 - 1.0 [facility] Comment on above: Performed By: #### U ACSIND, UMICRO #### [facility] [address] [address] [address] Dana Angulo URINE MICROSCOPIC ONLYon BACTERIA TRACE Abnormal NONE SEEN [facility] Comment on above: Performed By: #### U ACSREGGIE, UMICRO #### [facility] [address] [address] [address] Dana Angulo Bacteria identified Cx Nom (U) INDICATED Normal [facility] Comment on above: Performed By: #### U ACSREGGIE, UMICRO #### [facility] [address] [place] [address] Dr. Dana Angulo CAST SEEN Abnormal NONE SEEN [facility] Comment on above: Performed By: #### U ACSREGGIE, UMICRO #### [facility] [address] [place] [address] Dr. Dana Angulo Crystals LM Nom (Urine sed) NONE SEEN Normal NONE SEEN [facility] Comment on above: Performed By: #### U ACSREGGIE UMICRO #### [facility] [address] [place] [address] Dr. Dana Angulo Epithelial cells LM Ql (Urine sed) RARE Normal NONE SEEN /RARE [facility] Comment on above: Performed By: #### U ACSREGGIE ICRO #### [facility] [address] [place] [address] Dr. Dana Angulo MUCOUS NONE SEEN Normal NONE SEEN [facility] Comment on above: Performed By: #### U ACSREGGIE UMICRO #### [facility] [address] [place] [address] Dr. Dana Angulo RBC 2-5 Abnormal 0-2 [facility] Comment on above: Performed By: #### U ACSREGGIE UMICRO #### [facility] [address] [place] [address] Dr. Dana Angulo WBC 2-5 Abnormal NONE SEEN [facility] Comment on above: Performed By: #### U ACSREGGIE UMICRO #### [facility] [address] [place] [address] Dr. Dana Angulo VITAMIN D 25 OHon 11-11-2022 VIT D 25-OH 30.2 ng/mL Normal [facility] Comment on above: Performed By: #### C BC #### [facility] [address] [place], [place] [address] Dr. Dana Angulo VIT D RANGES SEE BELOW Normal [facility] Comment on above: Result Comment: <20 ng/mL Vit D deficient 20 - <30 ng/mL Vit D insufficient 30 - 100 ng/mL Vit D sufficient >100 ng/mL Potential Toxicity Performed By: #### C BC #### [facility] [address] [place], [place] [address] Dr. Dana Angulo Cardiovascular Lab Reporton 06-25-2019 Cardiovascular Lab Report [facility] Patient Name: [facility] Alvin Sanchez MR #: [id number] Department of Physician: Geetha Blankenship M.D. Division of Service Date: 06/24/2019 Cardiology Birthdate: 1935 Adult Cardiovascular Room #: [facility] [address] [address] Cardiovascular Laboratory Report FINAL IMPRESSION: 1. Normal right and left ventricular filling pressures. 2. Preserved cardiac output and cardiac index. 3. Mild pulmonary artery hypertension. 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 He has been experiencing shortness of breath [...] modified Seldinger technique and ultrasound guidance, a 5-Bruneian micropuncture was placed in right internal jugular vein. This was upsized to a regular 6-Bruneian pinnacle sheath and a 6-Bruneian Jackson was used for right heart catheterization. [...] Lucas M.D. Date Trans: 06/25/2019 05:12 Rashard/deniz [id number] cc: Rio Lal D.O. [address] [place] [address] [address] [facility] Neurosurgery Office/Clinic N nuryon 04-13-2018 Neurosurgery [...] Arsalan dexter MD 04/13/18 15:[address] [facility] CT Spine Lumbar w/ Contrasto n [...] Further degenerative changes are detailed above.Radiation Dose Estimate:CTDI(mGy):0.22114 0 / / / kVp:120.289221 / mAs:0.533921 / / / DLP(mGy-cm):5.772482Rlfq Part:CTDI(mGy):28.852616 / / / kVp:120.282285 / mAs:294.496195 / / / DLP(mGy-cm):632.253740Xpky Part: Final Dictated by: Naldo Aguilar MD, MDictated DT/TM: 04.06.2018 11:34 amSigned by: Naldo Aguilar MD MSigned (Electronic Signature): 04.06.2018 3:49 pmTranscribed DT/TM: 04.06.2018 1:29 pm(If Report Is Signed, Electronically Signed in Other Vendor System) Normal [facility] Inpatient Clinical Summaryon 04-06-2018 Inpatient Clinical Summary [address] [address]Bjdsfxgn SummaryPerson InformationName: Alvin Boyd Rolando Age: 82 Years : 1935Sex: Male [facility] Status: PCP: [phone]:White Ethnicity:Not or Language:EnglishMRN: [id number] Visit Id: Reason:stenosis, bilateral leg pain Speciality: Acuity:Enc Type: Outpatient in a Bed Med Service: Radiology-Diagnostic ImagingArrival:04/06/2018 08:16:35 Discharge: Dispo Type:Address:[address] [place] [address]Xrpsczvfg:Discharged To:Home Treatments:Devices/Equipme nt:Professional Skilled Services:Special Services and [...] 04/14/2018 14:30:00 04/14/2018 15:00:[address] [facility] PTon 04-06-2018 INR Coag RelTime (PPP) 1.1 {INR} Normal <=3.5 [facility] Comment on above: Result Comment: INR has no normal range. INR Therapeutic range is:2.0-3.0 (AF, CVA, TIAs, DVT prophylaxis, acute DVT)2.5-3.5 ([facility] heart valves, recurrent thrombosis/emboli) Performed By: #### P TINR ####[id number] Prothrombin time (PT) Coag time (PPP) 11.3 s Normal 9.1-11.9 [facility] Comment on above: Performed By: #### P TINR ####[address] [address] PTTon 04-06-2018 aPTT 24.0 s Normal 21.0-28.8 [facility] Comment on above: Performed By: #### P TT ####[place] [address] Platelet Counton 04-06-2018 Platelets 135 x10*3/mcL Low 150-350 [facility] Comment on above: Performed By: #### P LTS ####[place] [address] XR Myelography Lumbosacral S pine 04-06-2018 XR [...] Signed in Other Vendor System) Normal [facility] XR Spine Lumbosacral 2 or 3 [...] Signed, Electronically Signed in Other Vendor System) [facility] Neurosurgery Office/Clinic N saul 03-29-2018 Neurosurgery Office/Clinic Note Chief Complaint TRAFFIC OFFICER-BackHistory of Present Illness 82 year old male [...] He will require clearance from his warfarin adult manager prior to undergoing myelogram. Upon completion [...] ox Lexi DIAZ 03/29/18 12:[address] [facility] Pain Management Office/Clini c Noteon 03-16-2018 [...] Injections: 11-09-17 Date Surgery: n/a Frequency PT: [id number] Effective PT: not much help Effective Injections: [...] lynchKendra cochran CNP 03/16/18 13:[address] [facility] Pain Management Office/Clini c Noteon 02-19-2018 [...] Injections: 11-09-17 Date Surgery: n/a Frequency PT: [id number] Effective PT: not much help Effective Injections: [...] CNP Kendra Baez 02/19/18 12:[address] [facility] History and Physicalon 01-13 History and [...] Rosalee smallwood MD 01/13/18 15:[address] [facility] Pain Management Procedure No glenn 01-13-2018 [...] Rosalee Guzman MD 01/13/18 15:[address] [facility] Ambulatory Patient Education on 01-06-2018 Ambulatory Patient Education Patient Education MaterialsName: Alvin Boyd Current Date: 01/06/2018 15:32:58 [place] 1935 following sheet(s) are the Patient Education [...] the next day. You must have a automobile drivers that will wait in the Pain Management [...] procedure: Please arrive at: Please check in at:Malariologist Desk in the Pain Management [id number] [place] [address], 3rd floor [facility] inside the Emergency Room at [address]*Due to the sedation given for the procedure, you will not be permitted to drive until the following day. For this reason, you will need to bring a automobile drivers to stay with you and drive you [...] Hibiclens (a medicated soap) prior to your surgery.*[place] teeth, rinse with water, but do not swallow.*Please wear comfortable clothing, without metal zippers or snaps. Do not wear contact lenses. Do wear your hearing aid. Please leave all jewelry and valuables at home; you may wear your wedding ring.*Please note that due to limited space, your family member/automobile drivers will need to wait in the waiting area while you are in the procedure area. Absolutely no children should attend an appointment for an injection.*All prescription refills must be requested in advance. No prescription refills requested on the day of a procedure will be available until at least 3 business days later.*If your procedure is done in [place], you will be receiving a statement from [facility] for the professional (physician's) billing fees and for the technical (hospital's) fees and a separate statement for the anesthesia provider. If your procedure is done in [place], you will be receiving a statement from [facility] for professional (physician's) billing fees, technical [...] questions or concerns, please contact the appropriate office:[facility] ([place] office) [phone] ([place] office) [phone] follow up appointment is scheduled for:AT:[facility] [address] [facility], 3rd floor [facility], [facility] Management [address] [facility], [address], [facility] [address] [facility], 2nd floor clinic, [facility] [address] [facility]?WHAT TO EXPECT AFTER THE PROCEDURE:Please note [...] increase pain. (for example, bending, twisting, walking, hospital product specialist).Try to avoid pain medication or sleeping during [...] office immediately if noted.Contact stimulator sales representative supervisor with questions regarding stimulator use.(see rep card)Spinal [...] office immediately if noted.Contact stimulator sales representative supervisor with questions regarding stimulator use.(see rep card)Spinal [...] call immediately if noted.Contact stimulator sales representative supervisor with questions regarding stimulator use.(see rep card) Normal [facility] Pain Management Office/Clini c Noteon 01-06-2018 [...] PT: 01/16 Date Injections: 11-09-17 Frequency PT: [id number] Effective PT: not much help Effective Injections: [...] Kendra Reyes CNP 01/06/18 15:[address] [facility] Pain Management Office/Clini c Noteon 11-09-2017 [...] Rosalee Guzman MD 11/09/17 09:[address] [facility] Procedure Noteon 11-09-2017 Procedure Note PROCEDURE: [...] Rosalee Guzman MD 11/09/17 09:[address] [facility] Ambulatory Patient Education on 10-14-2017 Ambulatory Patient Education Patient Education MaterialsName: Alvin Boyd Current Date: 10/14/2017 11:49:11 [place] 1935 following sheet(s) are the Patient Education Leaflets for Alvin Boyd Name:You are scheduled for a:*Please allow up to 2 hours for your appointment. Late arrivals may result in delay or postponement of procedure.Date/Time of procedure: Please arrive at: Date/Time of procedure: Please arrive at: Please check in at:Malariologist Desk in the Pain Management [id number] [place] [address], 3rd floor [facility], [place]Reception Desk inside the Emergency Room at [address]*Due to the sedation given for the procedure, you will not be permitted to drive until the following day. For this reason, you will need to bring a automobile drivers to stay with you and drive you [...] Hibiclens (a medicated soap) prior to your surgery.*[place] teeth, rinse with water, but do not swallow.*Please wear comfortable clothing, without metal zippers or snaps. Do not wear contact lenses. Do wear your hearing aid. Please leave all jewelry and valuables at home; you may wear your wedding ring.*Please note that due to limited space, your family member/automobile drivers will need to wait in the waiting area while you are in the procedure area. Absolutely no children should attend an appointment for an injection.*All prescription refills must be requested in advance. No prescription refills requested on the day of a procedure will be available until at least 3 business days later.*If your procedure is done in [place], you will be receiving a statement from [facility] for the professional (physician's) billing fees and for the technical (hospital's) fees and a separate statement for the anesthesia provider. If your procedure is done in [place], you will be receiving a statement from [facility] for professional (physician's) billing fees, technical [...] questions or concerns, please contact the appropriate office:[facility] ([place] office) [phone] [place] [facility] ([place] office) [phone] follow up appointment is scheduled for:AT:[facility] [address] [facility] [address], 3rd floor [facility] [address], [address], [facility] [address] [facility], 2nd floor clinic, [address]?WHAT TO EXPECT AFTER THE PROCEDURE:Please note [...] increase pain. (for example, bending, twisting, walking, hospital product specialist).Try to avoid pain medication or sleeping during [...] office immediately if noted.Contact stimulator sales representative supervisor with questions regarding stimulator use.(see rep card)Spinal [...] office immediately if noted.Contact stimulator sales representative supervisor with questions regarding stimulator use.(see rep card)Spinal [...] call immediately if noted.Contact stimulator sales representative supervisor with questions regarding stimulator use.(see rep card)Nerve Root InjectionThe nerve root injection is a procedure where a local anesthetic and steroid solution are administered near the nerve as it exits the spinal canal. This is done under fluoroscopy (watching under live x-ray) to deliver the drug to the precise location.Am I a candidate for a nerve root injection?At [facility], the provider examining you will decide [...] procedure. You are required to have a automobile drivers remain in the facility before and during [...] the morning of the procedure. [facility] Pain Management Office/Clini c Noteon 10-14-2017 [...] Chiropractor: 11/2016 Date PT: 01/16 Frequency PT: [id number] Effective PT: not much help Comments TENS: [...] Reyes CNP Sasha 10/14/17 11:[address] [facility] History and Physicalon 09-09 History and [...] Rosalee smallwood MD 09/09/17 11:[address] [facility] Comment on above: Order Comment: This [...] smallwood MD, Rosalee 09/09/17 11:[address] [facility] Procedure Noteon 09-09-2017 Procedure Note PROCEDURE: [...] Rosalee Guzman MD 09/09/17 11:[address] [facility] History and Physicalon 08-26 History and [...] Rosalee Guzman MD 08/26/17 14:[address] [facility] History and Physical History of Present [...] Rosalee smallwood MD 08/26/17 15:[address] [facility] Procedure Noteon 08-26-2017 Procedure Note PROCEDURE: [...] Rosalee Guzman MD 08/26/17 15:[address] [facility] Ambulatory Patient Education on 07-29-2017 Ambulatory [...] procedure: Please arrive at: Please check in at:Malariologist Desk in the Pain Management [id number] [place] [address], 3rd floor [facility] [place]Reception Desk inside the Emergency Room at [address]*Due to the sedation given for the procedure, you will not be permitted to drive until the following day. For this reason, you will need to bring a automobile drivers to stay with you and drive you [...] Hibiclens (a medicated soap) prior to your surgery.*[place] teeth, rinse with water, but do not swallow.*Please wear comfortable clothing, without metal zippers or snaps. Do not wear contact lenses. Do wear your hearing aid. Please leave all jewelry and valuables at home; you may wear your wedding ring.*Please note that due to limited space, your family member/automobile drivers will need to wait in the waiting area while you are in the procedure area. Absolutely no children should attend an appointment for an injection.*All prescription refills must be requested in advance. No prescription refills requested on the day of a procedure will be available until at least 3 business days later.*If your procedure is done in [place], you will be receiving a statement from [facility] for the professional (physician's) billing fees and for the technical (hospital's) fees and a separate statement for the anesthesia provider. If your procedure is done in [place], you will be receiving a statement from [facility] for professional (physician's) billing fees, technical [...] questions or concerns, please contact the appropriate office:[facility] ([place] office) [phone] [place] [facility] ([place] office) [phone] follow up appointment is scheduled for:[facility] [address] [facility], 3rd floor [facility] [address], [address], [facility] [address] [facility], 2nd floor clinic, [facility] [address] [facility]?WHAT TO EXPECT AFTER THE PROCEDURE:Please note [...] increase pain. (for example, bending, twisting, walking, hospital product specialist).Try to avoid pain medication or sleeping during [...] office immediately if noted.Contact stimulator sales representative supervisor with questions regarding stimulator use.(see rep card)Spinal [...] office immediately if noted.Contact stimulator sales representative supervisor with questions regarding stimulator use.(see rep card)Spinal [...] call immediately if noted.Contact stimulator sales representative supervisor with questions regarding stimulator use.(see rep card)Radiofrequency [...] sedation. You are required to have a automobile drivers remain in the facility before and during the procedure, then drive you home following the procedure.What should I expect after the procedure?You are required to have a automobile drivers remain in the waiting room of [facility] during the procedure and drive you [...] regarding your other diabetic medications. [facility] Pain Management Office/Clini c Noteon 07-29-2017 [...] Chiropractor: 11/2016 Date PT: 01/16 Frequency PT: [id number] Effective PT: not much help Comments TENS: [...] Kendra Reyes CNP 07/29/17 13:[address] [facility] History and Physicalon 06-29 History and [...] data available.Electronically signed by Rosalee Guzman MD 06/29/17 13:[address] [facility] Procedure Noteon 06-29-2017 Procedure Note PROCEDURE: [...] The patient was turned back onto the [place] and taken to recovery in stable condition to be discharged per criteria.Electronically signed by Rosalee Guzman MD 06/29/17 14:[address] [facility] History and Physicalon 06-15 History and [...] Rosalee Guzman MD 06/15/17 16:[address] [facility] Procedure Noteon 06-15-2017 Procedure Note PROCEDURE: [...] smallwood MD, Rosalee 06/15/17 16:[address] [facility] Ambulatory Patient Education on 05-27-2017 Ambulatory Patient Education Patient Education MaterialsName: Alvin Boyd Current Date: 05/27/2017 10:03:36 [place] 1935 following sheet(s) are the Patient Education [...] have a lot of pain?Your physician at [facility] will do everything possible [...] procedure. You are required to have a automobile drivers remain in the facility before and during [...] procedure: Please arrive at: Please check in at:Malariologist Desk in the Pain Management [id number], 3rd floor [facility] [place]Reception Desk inside the Emergency Room at [address]*Due to the sedation given for the procedure, you will not be permitted to drive until the following day. For this reason, you will need to bring a automobile drivers to stay with you and drive you [...] Hibiclens (a medicated soap) prior to your surgery.*[place] teeth, rinse with water, but do not swallow.*Please wear comfortable clothing, without metal zippers or snaps. Do not wear contact lenses. Do wear your hearing aid. Please leave all jewelry and valuables at home; you may wear your wedding ring.*Please note that due to limited space, your family member/automobile drivers will need to wait in the waiting area while you are in the procedure area. Absolutely no children should attend an appointment for an injection.*All prescription refills must be requested in advance. No prescription refills requested on the day of a procedure will be available until at least 3 business days later.*If your procedure is done in [place], you will be receiving a statement from [facility] for the professional (physician's) billing fees and for the technical (hospital's) fees and a separate statement for the anesthesia provider. If your procedure is done in [place], you will be receiving a statement from [facility] for professional (physician's) billing fees, technical [...] questions or concerns, please contact the appropriate office:[facility] ([place] office) [phone] ([place] office) [phone] follow up appointment is scheduled for:AT:[facility] [address] [facility], 3rd floor [facility] [address], [address], [facility] [address] [facility], 2nd floor clinic, [facility] [address] [place] [address]?WHAT TO EXPECT AFTER THE PROCEDURE:Please note the [...] increase pain. (for example, bending, twisting, walking, hospital product specialist).Try to avoid pain medication or sleeping during [...] office immediately if noted.Contact stimulator sales representative supervisor with questions regarding stimulator use.(see rep card)Spinal [...] office immediately if noted.Contact stimulator sales representative supervisor with questions regarding stimulator use.(see rep card)Spinal [...] call immediately if noted.Contact stimulator sales representative supervisor with questions regarding stimulator use.(see rep card) Normal [facility] Pain Management Office/Clini c Noteon 05-27-2017 [...] Chiropractor: 11/2016 Date PT: 01/16 Frequency PT: [id number] Effective PT: not much help Comments TENS: [...] on his/her behalf by a trained medical administrative technician. The creation of this document is based on the provider?s statements to the medical administrative technician.Problem List/Past Medical History Ongoing Acid reflux Angina [...] DIAZ Kendra Sasha 05/27/2017 10:[address] [facility] Vital Signs Date Time Vital Sign Value Performing Clinician Michelle gamez 10-19-2024 09:08-0500 Body height 171.5 cm Amy Daily DPM Work Phone: [facility] 10-19-2024 09:08-0500 Body mass index (BMI) [Ratio] 34.57 kg/m2 Amy Daily DPM Work Phone: [facility] 10-19-2024 [id number] Body weight 101.61 kg Amy Daily DPM Work Phone: [facility] Healthcare Encounters Encounter Date Encounter Type Care Provider Facility Start: 11-08-2024 End: 11-08-2024 ambulatory [facility] Start: 10-19-2024 End: 10-19-2024 Bamboo flowsheet Amy Daily DPM Work Phone: [facility] Start: 10-19-2024 End: 10-19-2024 Bamboo flowsheet Amy Daily DPM Work Phone: [facility] Start: 10-19-2024 End: 10-19-2024 Patient encounter procedure Amy Daily DPM Work Phone: [facility] Comment on above: Dermatophytosis of n ail (Primary Dx); Dystrophic nail; Pain around toenail, right foot; Pain around toenail, left foot Start: 10-19-2024 End: 10-19-2024 ambulatory AMY DAILY Not Available Start: 06-29-2024 End: 06-29-2024 ambulatory AMY DAILY Not Available Start: 06-20-2024 End: 06-20-2024 ambulatory [facility] Start: 04-19-2024 End: 04-19-2024 ambulatory [facility] Start: 03-09-2024 End: 03-09-2024 ambulatory AMY DAILY Not Available Start: 01-06-2024 End: 01-06-2024 ambulatory [facility] Start: 12-03-2023 End: 12-03-2023 ambulatory DOU[facility] Start: 11-16-2023 End: 11-16-2023 ambulatory AMY Rashard [...] End: 06-25-2019 Patient encounter procedure RIO LAL Facility:[facility] Start: 06-21-2019 End: 06-27-2019 Patient encounter procedure GERBER PETER Facility:[facility] Start: 04-13-2018 End: 04-14-2018 [facility] Start: 04-06-2018 End: 04-06-2018 Ambulatory RIO LAL Facility:[facility] Start: 03-29-2018 End: 03-30-2018 Ambulatory LEXI MORLEY Facility:[facility] Start: 03-16-2018 End: 03-17-2018 Ambulatory KENDRA SASHAMarino CAST Facility:[facility] [place] Start: 02-19-2018 End: 02-20-2018 Ambulatory RIO LAL Facility:[facility] [place] Start: 01-13-2018 End: 01-13-2018 Ambulatory ROSALEE BAKOS Facility:[facility] Start: 01-06-2018 End: 01-07-2018 [facility] [place] Start: 11-09-2017 End: 11-09-2017 Ambulatory ROSALEE BAKOS Facility:[facility] Start: 10-14-2017 End: 10-15-2017 Ambulatory [facility] Facility:[facility] [place] Start: 09-09-2017 End: 09-09-2017 Ambulatory ROSALEE BAKOS Facility:[facility] Start: 08-26-2017 End: 08-26-2017 Ambulatory ROSALEE BAKOS Facility:[facility] Start: 07-29-2017 End: 07-30-2017 [facility] [place] Start: 06-29-2017 End: 06-29-2017 Ambulatory ROSALEE BAKOS Facility:[facility] Start: 06-15-2017 End: 06-15-2017 Ambulatory ROSALEE BAKOS Facility:[facility] Start: 05-27-2017 End: 05-28-2017 Ambulatory [facility] Facility:[facility] [place] Plan of Treatment Date Care Activity Detail Author Start: 01-25-2025 End: 01-25-2025 Patient encounter procedure 01/25/2025 9:30 AM EST Procedure Visit [facility] [address] [place] [id number] Amy Daily DPM [address] [place] [address] [facility] Start: 10-19-2024 End: 10-19-2024 Patient encounter procedure 10/19/2024 9:15 AM EST Procedure Visit [facility] [address] [place] [address] Amy Daily DPM [address] [place], [place] [id number] Arrived [facility] Comment on above: Arrived Start: 07-31-2024 Influenza vaccination Influenza Vacc ine (#1) [facility] Start: 12-02-2018 Pneumococcal Vaccine : 65+ Years (2 of 2 - PPSV23 or PCV20) Pneumococcal Vaccine: 65+ Years (2 of 2 - PPSV23 or PCV20) [facility] Immunizations Immunization Date Immunization Notes Care Provider Fa cility 11-01-2018 influenza, injectabl e, quadrivalent, preservative free Amy Daily DPM Work Phone: [facility] 11-01-2018 influenza virus vacc ine, unspecified formulation Amy Daily DPM Work Phone: [facility] 12-02-2017 pneumococcal conjuga te vaccine, 13 valent Amy Daily DPM Work Phone: [facility] 11-03-2017 influenza, injectabl e, quadrivalent, preservative free Amy Daily DPM Work Phone: [facility] Payers Date Payer Category Payer Private Health Insurance [place] [place] [id number] 2001 Medicare 1958 Medicare [id number] 1959 Unknown [id number] 1959 Unknown [id number] 1936 Unknown [id number] 2.16.840.1.326295.3.579.2. 647 1936 Unknown [id number] 2.16.840.1.692660.3.579.2. 647 1936 Unknown [id number] 2.16.840.1.847986.3.579.2. 593 1936 Unknown [id number] 2.16.840.1.045266.3.579.2. 593 1936 Unknown [id number] 2.16.840.1.784623.3.579.2. 593 1936 Unknown [id number] 2.16.840.1.892294.3.579.2. 593 1936 Unknown [id number] 2.16.840.1.277367.3.579.2. 593 1936 Unknown [id number] 2.16.840.1.655457.3.579.2. 593 1936 Unknown [id number] 2.16.840.1.092615.3.579.2. 593 1936 Unknown [id number] 2.16.840.1.980961.3.579.2. 593 1936 Unknown [id number] 2.16.840.1.691090.3.579.2. 593 1936 Unknown [id number] 2.16.840.1.527145.3.579.2. 593 1936 Unknown [id number] 2.16.840.1.929640.3.579.2. 593 1936 Unknown [id number] 2.16.840.1.603241.3.579.2. 593 1936 Unknown [id number] 2.16.840.1.843482.3.579.2. 593 1936 Unknown [id number] 2.16.840.1.323549.3.579.2. 1259 1936 Unknown [id number] 2.16.840.1.057216.3.579.2. 1259 1936 Unknown [id number] 2.16.840.1.278547.3.579.2. 1259 1936 Unknown [id number] 2.16.840.1.568767.3.579.2. 1259 Medicare [id number] Social History Date Type Detail Facility Start: 11-16-2023 [facility] History of tobacco use [...] Amy Daily DPM documented in this encounter [facility] Healthcare Progress note 06-20-2024 Note Date & Type Note Facility 06-20-2024 Note [place] [facility] - [facility] Subjective Alvin Boyd is a 88 [...] Problem List Diagnosis Coronary artery disease involving [place] coronary artery of [place] heart without angina pectoris Acute on chronic systolic heart failure, NYHA class 2 ([facility]) Chronic atrial fibrillation (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) History of cardiovascular disorder Chronic disease of cardiovascular system Encounter for long-term (current) use of insulin ([facility]) Hyperlipidemia Mitral valve disorder Morbid obesity with BMI of 40.0-44.9, adult ([facility]) Osteoarthritis of right hip Pulmonary embolism ([facility]) Right knee DJD CAD S/P percutaneous coronary angioplasty Implantable cardioverter-defibrillator (ICD) in situ No family history on file. Social History Tobacco Use Smoking status: Former Years: 18 Types: Cigarettes Quit date: 1984 Years since quittin.5 Smokeless tobacco: Never HPI Avlin is seen in follow up. He is [...] Rfl: potassium chlo (more content not included)... [facility] Progress note 01-06-2024 Note Date & Type Note Facility 01-06-2024 Note [facility] SUBJECTIVE No chief complaint on file. Alvin Boyd is a 88 y.o. male here for follow-up on his hypertension and HFpEF. His son accompanied him. 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 [facility] Progress note 01-06-2024 Note Date & [...] All other systems reviewed and are negative. [facility] Progress note 12-03-2023 Note Date & [...] All other systems reviewed and are negative. [facility] Progress note 12-03-2023 Note Date & Type Note Facility 12-03-2023 Note [facility] SUBJECTIVE Chief Complaint Patient presents with Hospital Follow-up Congestive Heart Failure Shortness of Breath Alvin Boyd is a 87 y.o. male here for follow-up after his recent admission to [facility]. 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 transplanted heart: [place] heart Associated angina: without angina Qualified Code(s): I25.10 - Atherosclerotic heart disease of [place] coronary artery without angina pectoris (9) H/O [...] Problem List Diagnosis Coronary artery disease involving [place] coronary artery of [place] heart without angina pectoris Acute on chronic systolic heart failure, NYHA class 2 ([facility]) Chronic atrial fibrillation (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) History of cardiovascular disorder Chronic disease of cardiovascular system Encounter for long-term (current) use of insulin ([facility]) Hyperlipidemia Mitral valve disorder Morbid obesity with BMI of 40.0-44.9, adult ([facility]) Osteoarthritis of right hip Pulmonary embolism ([facility]) Right knee DJD CAD S/P percutaneous coronary angioplasty Implantable cardioverter-defibrillator (ICD) in situ Past Medical History: Diagnosis Date Atrial fibrillation ([facility]) CHF (congestive heart failure) ([facility]) Coronary artery disease Heart valve disease [...] After Visit Suarez (more content not included)... [facility] Evaluation note Note Date & Type [...] and content) DATE CREATED AUTHOR 05/19/2018 [facility] DATE CREATED AUTHOR AUTHOR'S ORGANIZ ATION 06/19/2020 [facility] DATE CREATED AUTHOR AUTHOR'S ORGANIZ ATION 05/08/[address] [facility] DATE CREATED AUTHOR AUTHOR'S ORGANIZ ATION 10/21/2024 [facility] EPIC DATE CREATED AUTHOR AUTHOR'S ORGANGEORGE ATION 11/11/2024 [facility] Care Teams (unrecognized sec tion and content) Medical Care Evaluation Specialist Relationship Specialty Start Date End Date Rio Lal MD [address] [place] [id number] PCP - General Internal Medicine 07/29/23 Medical Care Evaluation Specialist Relationship Specialty Start Date End Date Rio Lal MD [address] [place] [address] PCP - General Internal Medicine 07/29/23 Reason [...] BE BASED ON THE PRIMARY CLINICAL RECORDS. [employer] provides no warranty or guarantee of the accuracy or completeness of information in this document.
[2024-11-30] MEDS: AZITHROMYCIN 500 MG in 0.9 % SODIUM CHLORIDE 250 ML 250 MG IV (01:29)
--- NOTE | 2024-11-30 07:13 | PC.NURSE ---
soft stool with bloody liquid stool
[2024-11-30 07:30] LABS: Basophils Percent Auto 0.5 % (0.2-2.0); Eosinophils Percent Auto 0.4 % (0.9-7.0); Immature Granulocytes Abs Auto 0.03 10^3/uL (0.00-0.03); Immature Granulocytes Pct Auto 0.4 % (0.0-0.5); Lymphocytes Absolute Auto 0.8 10^3/uL (1.2-3.8); Lymphocytes Percent Auto 10.1 % (20.5-60.0); Mean Corpuscular HGB Conc 31.7 g/dL (29.9-35.2); Mean Corpuscular Volume 97.6 fL (80.0-94.0); Monocytes Absolute Auto 0.8 10^3/uL (0.3-0.8); Monocytes Percent Auto 9.7 % (1.7-12.0); Neutrophils Absolute Auto 6.4 10^3/uL (1.4-6.5); Neutrophils Percent Auto 78.9 % (43.0-75.0); Platelet Count 152 10^3/uL (150-450); Red Cell Distribution Width 13.2 % (11.0-15.0); White Blood Count 8.2 10^3/uL (4.0-11.0)
[2024-11-30 08:05] LABS: Alanine Aminotransferase 19 U/L (16-63); Albumin Globulin Ratio 1.2; Albumin Level 3.8 g/dL (3.4-5.0); Alkaline Phosphatase 78 U/L (46-116); Anion Gap 14.3; Aspartate Amino Transferase 19 U/L (15-37); BUN Creatinine Ratio 22.7; Bilirubin Total 0.8 mg/dL (0.2-1.0); Calcium 9.3 mg/dL (8.5-10.1); Carbon Dioxide 25.6 mmol/L (21.0-32.0); Chloride 102 mmol/L (98-107); Estimated GFR (African America >60 (>=60 mL/min/1.73m^2); Estimated GFR (Non-African Ame 53 (>=60 mL/min/1.73m^2); Globulin 3.2 g/dL; Glucose 139 mg/dL (74-106); Magnesium 1.6 mg/dL (1.8-2.4); Potassium 3.9 mmol/L (3.5-5.1); Sodium 138 mmol/L (136-145)
[2024-11-30 08:14] LABS: Lactate/Lactic Acid 1.8 mmol/L (0.4-2.0)
[2024-11-30] MEDS: DULOXETINE HCL 30 MG CAPSULE.DR PO (08:40)
[2024-11-30] MEDS: ATORVASTATIN CALCIUM 40 MG TABLET PO (08:40)
[2024-11-30] MEDS: ACETAMINOPHEN 325 MG TABLET 650 MG PO (08:40)
[2024-11-30] MEDS: CARVEDILOL 12.5 MG TABLET PO (08:40)
[2024-11-30 09:08] LABS: Internal Control Within Normal Limits; Occult Blood Positive
[2024-11-30 09:55] LABS: INR 1.93; Prothrombin Time 19.2 sec (9.0-11.6)
[2024-11-30] MEDS: MONTELUKAST SODIUM 10 MG TABLET PO (10:03)
[2024-11-30] MEDS: POTASSIUM CHLORIDE 10 MEQ ER TABLET 20 MEQ PO (10:03)
[2024-11-30] MEDS: PANTOPRAZOLE SODIUM 40 MG VIAL IV ×2 (10:03→22:19)
--- NOTE | 2024-11-30 10:14 | P.HP_ITS ---
HPI H&P: HPI History of Present Illness Chief complaint: Shortness of Breath/CHF Narrative: Patient presented to the emergency room with increasing cough and shortness of breath, found to have community-acquired pneumonia, bilateral lower lobes, also significantly elevated BNP consistent with acute systolic heart failure with no peripheral edema. When I saw patient for the medical surgical floor, resting comfortably, some mild conversational dyspnea, some cough, denied chest pain, does have shortness of breath with any activity Opioid HPI Opioid Management Most Recent Pain and Opioid Data: Last Pain Scale 0 11/30/24 10:03 11/30/24 Last Pain Assessment 11/30/24 12:00 Last MAR Pain Assessment 11/30/24 10:03 Last ORT Total Score 0 11/30/24 01:05 11/30/24 Last ORT Risk Category Low Risk 11/30/24 01:05 [facility]24 [facility] (Updated 11/30/24 @ 00:25 by Benjie Olivares MD) Paroxysmal atrial fibrillation ?I48.0 - Paroxysmal atrial fibrillation (ICD-10) COPD exacerbation ?J44.1 - Chronic obstructive pulmonary disease with (acute) exacerbation (ICD-10) CAD (coronary artery disease) ?I25.10 - Atherosclerotic heart disease of [place] coronary artery without angina pectoris (ICD-10) H/O deep venous thrombosis ?Z86.718 - Personal history of other venous thrombosis and embolism (ICD-10) 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) ?I50.32 - Chronic diastolic (congestive) heart failure (ICD-10) Fever ?R50.9 - Fever, unspecified (ICD-10) D-dimer, elevated ?R79.89 - Other specified abnormal findings of blood chemistry (ICD-10) Hypoxemia ?R09.02 - Hypoxemia (ICD-10) Afib ?I48.91 - Unspecified atrial fibrillation (ICD-10) HLD (hyperlipidemia) ?E78.5 - Hyperlipidemia, unspecified (ICD-10) Depression ?F32.A - Depression, unspecified (ICD-10) CHF (congestive heart failure) ?I50.9 - Heart failure, unspecified (ICD-10) Stroke ?I63.9 - Cerebral infarction, unspecified (ICD-10) Heart attack ?I21.9 - Acute myocardial infarction, unspecified (ICD-10) DVT (deep venous thrombosis) ?I82.409 - Acute embolism and thrombosis of unspecified deep veins of unspecified lower extremity (ICD-10) Cataract (lens) fragments in eye following cataract surgery ?H59.029 - Cataract (lens) fragments in eye following cataract surgery, unspecified eye (ICD-10) Pacemaker ?Z95.0 - Presence of cardiac pacemaker (ICD-10) Surgical History (Updated 11/26/23 @ 21:23 by Demond Lagos) History of heart artery stent ?Z95.5 - Presence of coronary angioplasty implant and graft (ICD-10) Hx of total knee arthroplasty ?Z96.659 - Presence of unspecified artificial knee joint (ICD-10) H/O total hip arthroplasty ?Z96.649 - Presence of unspecified artificial hip joint (ICD-10) Social History (Updated 11/26/23 @ 22:25 by Jennifer Gloria) Within the past year, how often did you have a drink containing alcohol: never Score interpretation: A score less than 4 is consistent with normal alcohol consumption. Smoking status: Former smoker Non-prescribed substance use: denies use Previous occupational history: retired Highest level of school completed/degree received: high school graduate Are you now , , , , never or living with a partner: In a typical week, how many times do you talk on the telephone with family, friends, or neighbors: 3 or more times per week How often do you get together with friends or relatives: 3 or more times per week How often do you attend faith or congregational services: 1-3 times per year Little interest or pleasure in doing things: not at all Feeling down, depressed, or hopeless: not at all Feel stressed/tense/nervous/anxious/difficulty sleeping: not at all Do you think of yourself as: straight/heterosexual Gender Identity: male Meds Home Medications and Allergies Home Medications ?Medication ?Instructions ?Recorded ?Confirmed ?Type atorvastatin 40 mg tablet 40 mg PO .QHS 11/26/23 11/30/24 History carvedilol 12.5 mg tablet 12.5 mg PO BID 11/26/23 11/30/24 History duloxetine 30 mg capsule,delayed 30 mg PO .qhs 11/26/23 11/30/24 History release hydrochlorothiazide 12.5 mg tablet 12.5 mg PO DAILY 11/26/23 11/30/24 History montelukast 10 mg tablet 10 mg PO DAILY 11/26/23 11/30/24 History omeprazole 40 mg capsule,delayed 40 mg PO DAILY 11/26/23 11/30/24 History release warfarin 4 mg tablet (Jantoven) 4 mg PO DAILY 11/26/23 11/30/24 History ferrous sulfate 325 mg (65 mg 325 mg PO DAILY 11/30/24 11/30/24 History iron) tablet (Feosol) potassium chloride 20 mEq 20 meq PO DAILY 11/30/24 11/30/24 History tablet,extended release(part/cryst) sacubitril 49 mg-valsartan 51 mg 1 tab PO BID 11/30/24 11/30/24 History tablet (Entresto) sucralfate 1 gram tablet 1 g PO BID@1200,2200 11/30/24 11/30/24 History Allergies Allergy/AdvReac Type Severity Reaction Status Date / Time No Known Drug Allergies Allergy Verified 11/26/23 18:11 Exam Constitutional Vital Signs, click to edit/add: Last Vital Signs Temp 99.8 F 11/30/24 07:10 Pulse 60 11/30/24 09:53 Resp 16 11/30/24 08:00 BP 132/75 11/30/24 07:10 Pulse Ox 95 11/30/24 07:10 O2 Del Method Room Air 11/30/24 07:10 Documenting provider has reviewed patient's vital signs: yes Common normals: apparent distress (Mild conversational dyspnea with some cough throughout the evaluation) Respiratory Common normals: abnormal respiratory effort (Mild conversational dyspnea with a cough throughout the evaluation) Auscultation: rales, rhonchi, wheezes and egophony Cardio Common normals: regular rate and regular rhythm Results Labs Labs: Short CBC 11/29/24 11/30/24 Range/Units 21:15 07:16 WBC 7.5 8.2 (4.0-11.0) 10^3/uL Hgb 12.1 L 13.0 L (14.0-18.0) g/dL Hct 37.6 L 41.0 L (42.0-54.0) % Plt Count 157 152 (150-450) 10^3/uL BMP 11/29/24 11/30/24 21:15 07:16 Sodium 136 138 Potassium 4.0 3.9 Chloride 102 102 Carbon Dioxide 23.1 25.6 BUN 31.0 H 29.0 H Creatinine 1.50 H 1.28 Glucose 125 H 139 H Calcium 9.0 9.3 Liver Function 11/30/24 Range/Units 07:16 Total Bilirubin 0.8 (0.2-1.0) mg/dL AST 19 (15-37) U/L ALT 19 (16-63) U/L Alkaline Phosphatase 78 (46-116) U/L Albumin 3.8 (3.4-5.0) g/dL Assessment and Plan Assessment and Plan (1) Congestive heart failure: (2) Community acquired pneumonia: Plan Admission findings: Respiratory distress, lactic acidosis and left shift on white blood cell count consistent with bacterial process, uncontrolled hypertension secondary to bilateral lower lobe pneumonia resulting in acute exacerbation of COPD and causing a acute systolic heart failure. Community-acquired pneumonia-bilateral with no leukocytosis but significant left shift consistent with bacterial process and lactic acidosis--0 leading to acute exacerbation of COPD-IV antibiotics, aerosol treatments [id number] and as needed, steroids try to obtain sputum culture Acute systolic heart failure secondary to the above-troponins are negative, BNP slightly elevated compared to previous day, with significant pulmonary congestion we will try patient on Bumex drip as long as his blood pressure can tolerate that, check echocardiogram Acute rectal bleeding-repeat CBC later today hold his Coumadin, but not reverse at this point his hemoglobin this morning was higher than previous day Pulmonary embolism-as why he is on the Coumadin, will maintain that monitor daily Acute elevation in creatinine, baseline creatinine of 1.05, creatinine admission of 1.50 which is 142.8% above baseline Iron deficiency anemia-monitor daily Hyperglycemia-monitor daily Hypomagnesemia-supplement Hypercholesterolemia continue with home medications Hypertension by history-monitor closely, may need to adjust blood pressure medications if blood pressure remains low Depression-continue with home medications GERD-continue with home medications Admission status: Patient with significant respiratory distress and bilateral lower lobe pneumonia with acute exacerbation of COPD and complicated by acute systolic heart failure, medically necessary treatment will span 2 midnights. Inpatient status
[2024-11-30] MEDS: IPRATROPIUM/ALBUTEROL SULFATE 3 ML AMPUL.NEB IH ×3 (11:01→23:08)
[2024-11-30 11:37] LABS: Bilirubin Urine NEGATIVE (NEGATIVE); Blood Urine NEGATIVE (NEGATIVE); Clarity Urine CLEAR (CLEAR); Color Urine LT. YELLOW (YELLOW); Glucose Urine UA NEGATIVE (NEGATIVE); Ketones Urine NEGATIVE (NEGATIVE); Leukocyte Esterase Urine TRACE (NEGATIVE); Nitrite Urine NEGATIVE (NEGATIVE); Protein Urine NEGATIVE (NEG/TRACE); Specific Gravity Urine 1.015 (1.005-1.025); Urobilinogen Urine 0.2 EU/dL (0.2-1.0)
[2024-11-30] MEDS: SACUBITRIL/VALSARTAN 24 MG-26 MG TABLET 2 TAB PO ×2 (11:53→22:19)
[2024-11-30] MEDS: SUCRALFATE 1 GM TABLET PO ×2 (11:53→22:19)
[2024-11-30] MEDS: MAGNESIUM OXIDE 400 MG TABLET PO ×2 (11:53→22:19)
[2024-11-30 12:35] LABS: Basophils Percent Auto 0.6 % (0.2-2.0); Eosinophils Percent Auto 0.3 % (0.9-7.0); Hematocrit 37.8 % (42.0-54.0); Hemoglobin 12.3 g/dL (14.0-18.0); Immature Granulocytes Abs Auto 0.04 10^3/uL (0.00-0.03); Immature Granulocytes Pct Auto 0.6 % (0.0-0.5); Lymphocytes Absolute Auto 0.7 10^3/uL (1.2-3.8); Lymphocytes Percent Auto 10.4 % (20.5-60.0); Mean Corpuscular HGB Conc 32.5 g/dL (29.9-35.2); Mean Corpuscular Hemoglobin 31.3 pg (25.9-34.0); Mean Corpuscular Volume 96.2 fL (80.0-94.0); Mean Platelet Volume 10.3 fL (9.5-13.5); Monocytes Absolute Auto 0.7 10^3/uL (0.3-0.8); Monocytes Percent Auto 10.3 % (1.7-12.0); Neutrophils Absolute Auto 5.2 10^3/uL (1.4-6.5); Neutrophils Percent Auto 77.8 % (43.0-75.0); Platelet Count 165 10^3/uL (150-450); Red Blood Count 3.93 10^6/uL (4.70-6.10); Red Cell Distribution Width 13.2 % (11.0-15.0); White Blood Count 6.6 10^3/uL (4.0-11.0)
[2024-11-30 12:42] LABS: Bacteria Urine TRACE #/HPF (NONE SEEN); Cast Seen? NONE SEEN #/LPF (NONE SEEN); Crystals Seen? None Seen #/HPF (None Seen); Mucus Urine TRACE (NONE SEEN); RBC Urine 0-2 #/HPF (0-2); Squamous Epithelial Cell Urine FEW #/LPF (NONE/RARE); Urine Culture Indicated NO
[2024-11-30] MEDS: CARVEDILOL 6.25 MG TABLET PO (22:19)
[2024-12-01] VITALS (12 sets, daily range): BP systolic 112–126; BP diastolic 65–76; PULSE 60–88; TEMP 36.6–37.3; O2SAT 91–95
[2024-12-01] MEDS: CEFTRIAXONE 1,000 MG in 0.9 % SODIUM CHLORIDE 50 ML 100 MG IV (00:41)
[2024-12-01] MEDS: AZITHROMYCIN 500 MG in 0.9 % SODIUM CHLORIDE 250 ML 250 MG IV (01:25)
[2024-12-01] MEDS: IPRATROPIUM/ALBUTEROL SULFATE 3 ML AMPUL.NEB IH ×2 (05:14→11:13)
[2024-12-01 05:53] LABS: Basophils Percent Auto 0.5 % (0.2-2.0); Eosinophils Percent Auto 0.4 % (0.9-7.0); Hematocrit 37.7 % (42.0-54.0); Hemoglobin 12.1 g/dL (14.0-18.0); Immature Granulocytes Abs Auto 0.02 10^3/uL (0.00-0.03); Immature Granulocytes Pct Auto 0.4 % (0.0-0.5); Lymphocytes Absolute Auto 0.9 10^3/uL (1.2-3.8); Mean Corpuscular HGB Conc 32.1 g/dL (29.9-35.2); Mean Corpuscular Hemoglobin 31.3 pg (25.9-34.0); Mean Corpuscular Volume 97.7 fL (80.0-94.0); Monocytes Absolute Auto 0.7 10^3/uL (0.3-0.8); Monocytes Percent Auto 13.2 % (1.7-12.0); Neutrophils Absolute Auto 3.9 10^3/uL (1.4-6.5); Neutrophils Percent Auto 69.5 % (43.0-75.0); Platelet Count 142 10^3/uL (150-450); Red Blood Count 3.86 10^6/uL (4.70-6.10); Red Cell Distribution Width 13.2 % (11.0-15.0); White Blood Count 5.6 10^3/uL (4.0-11.0)
[2024-12-01 06:12] LABS: Anion Gap 11.7; BUN Creatinine Ratio 28.8; Calcium 8.8 mg/dL (8.5-10.1); Carbon Dioxide 25.7 mmol/L (21.0-32.0); Chloride 103 mmol/L (98-107); Estimated GFR (African America >60 (>=60 mL/min/1.73m^2); Estimated GFR (Non-African Ame 58 (>=60 mL/min/1.73m^2); Glucose 103 mg/dL (74-106); Potassium 3.4 mmol/L (3.5-5.1); Sodium 137 mmol/L (136-145)
--- NOTE | 2024-12-01 07:00 | CA_ITS ---
Patient Name: ALVIN BOYD MR#: [id number] : 1935 Exam Date: 12/01/2024 Ordering Doctor: DR MARICRUZ ARECHIGA . ECHOCARDIOGRAM REPORT PROCEDURE: CA ECHO LIMITED INDICATIONS: CHF, pacemaker, COPD, cardiac stents COMPARISON: None. DESCRIPTION: Limited ECHOCARDIOGRAM Real-time transthoracic echocardiography with 2D and M-mode performed. QUALITY: Technical quality was adequate. Limited echocardiogram per physician order. LEFT VENTRICLE: Normal chamber size. Thickened septal wall. LV EF: Global left ventricular systolic function is difficult to assess but appears lower normal limits; ejection fraction is estimated to be 50%. Unable to assess regional wall motion abnormalities. LEFT ATRIUM: Moderate dilatation. RIGHT ATRIUM: Moderate dilatation. RIGHT VENTRICLE: Normal chamber size. Normal systolic function pacer wire present. TRICUSPID VALVE: Normal mobility and thickness. MITRAL VALVE: Normal mobility and thickness. There is no mitral annular calcification. AORTIC VALVE: Normal trileaflet appearance. Moderately calcified aortic valve. AORTIC ROOT: Normal diameter and appearance. PULMONIC VALVE: Not well visualized. PERICARDIUM: Trivial pericardial effusion is seen. IVC: Not well visualized. CONCLUSION: 1. Global left ventricular systolic function is difficult to assess but appears lower normal limits; visually estimated ejection fraction is 50% 2. Normal right ventricular size and systolic function 3. Biatrial dilatation 4. A trivial pericardial effusion is seen A limited echocardiogram was performed Adult Echocardiography Procedure Report Left Ventricle LVEDD (3.7 - 5.6 cm): 4.47 cm LVESD (2.2 - 4.0 cm): 3.45 cm LVIVS thickness (0.6 - 1.2 cm): 1.20 cm LVPW thickness (0.5 - 1.0 cm): 1.06 cm LVOT Diameter 2.60 cm Left Ventricular Ejection Fraction: 46 % Left Atrium LA Volume Index (2D A2C): 87049 mm3 Left Atrium Systolic Dimension: 3.50 cm Mitral Valve Right Ventricle Aorta AO Root Diam: 3.20 cm Aortic Valve Tricuspid Valve Pulmonic Valve Right Atrium Dictated by: Kannan Bianchi M.D. on 12/05/2024 at 15:55 Approved by: Kannan Bianchi M.D. on 12/05/2024 at 15:57
--- NOTE | 2024-12-01 09:22 | P.PN_ITS ---
Exam Constitutional Vital Signs, click to edit/add: Last Vital Signs Temp 98.3 F 12/01/24 08:26 Pulse 60 12/01/24 08:26 Resp 18 12/01/24 08:26 BP 114/65 12/01/24 08:26 Pulse Ox 93 L 12/01/24 08:26 O2 Del Method Room Air 12/01/24 08:26 Progress Note: Objective Labs Labs: Short CBC 11/30/24 12/01/24 Range/Units 12:00 05:29 WBC 6.6 5.6 (4.0-11.0) 10^3/uL Hgb 12.3 L 12.1 L (14.0-18.0) g/dL Hct 37.8 L 37.7 L (42.0-54.0) % Plt Count 165 142 L (150-450) 10^3/uL BMP 12/01/24 05:29 Sodium 137 Potassium 3.4 L Chloride 103 Carbon Dioxide 25.7 BUN 34.0 H Creatinine 1.18 Glucose 103 Calcium 8.8 Urine 11/30/24 Range/Units 10:45 Urine Color Lt. yellow (YELLOW) Urine Clarity Clear (CLEAR) Urine pH 6.0 (5.0-9.0) Ur Specific [place] 1.015 (1.005-1.025) Urine Protein Negative (NEG/TRACE) mg/dL Urine Glucose (UA) Negative (NEGATIVE) mg/dL Progress Note: A&P Assessment and Plan (1) Congestive heart failure: (2) Community acquired pneumonia: Plan Admission findings: Respiratory distress, lactic acidosis and left shift on white blood cell count consistent with bacterial process, uncontrolled hypertension secondary to bilateral lower lobe pneumonia resulting in acute exacerbation of COPD and causing a acute systolic heart failure. Community-acquired pneumonia-bilateral with no leukocytosis but significant left shift consistent with bacterial process and lactic acidosis--0 leading to acute exacerbation of COPD-IV antibiotics, aerosol treatments [id number] and as needed, steroids try to obtain sputum culture Acute systolic heart failure secondary to the above-troponins are negative, BNP slightly elevated compared to previous day, with significant pulmonary congestion we will try patient on Bumex drip as long as his blood pressure can tolerate that, check echocardiogram Acute rectal bleeding-repeat CBC later today hold his Coumadin, but not reverse at this point his hemoglobin this morning was higher than previous day Pulmonary embolism-as why he is on the Coumadin, will maintain that monitor daily Acute elevation in creatinine, baseline creatinine of 1.05, creatinine admission of 1.50 which is 142.8% above baseline Iron deficiency anemia-monitor daily Hyperglycemia-monitor daily Hypomagnesemia-supplement Hypercholesterolemia continue with home medications Hypertension by history-monitor closely, may need to adjust blood pressure medications if blood pressure remains low Depression-continue with home medications GERD-continue with home medications Admission status: Patient with significant respiratory distress and bilateral lower lobe pneumonia with acute exacerbation of COPD and complicated by acute s ystolic heart failure, medically necessary treatment will span 2 midnights. Inpatient status
[2024-12-01] MEDS: PANTOPRAZOLE SODIUM 40 MG VIAL IV (09:49)
[2024-12-01] MEDS: MAGNESIUM OXIDE 400 MG TABLET PO (09:49)
[2024-12-01] MEDS: POTASSIUM CHLORIDE 10 MEQ ER TABLET 20 MEQ PO (09:49)
[2024-12-01] MEDS: DULOXETINE HCL 30 MG CAPSULE.DR PO (09:49)
[2024-12-01] MEDS: CARVEDILOL 6.25 MG TABLET PO (09:50)
[2024-12-01] MEDS: ATORVASTATIN CALCIUM 40 MG TABLET PO (09:50)
[2024-12-01] MEDS: SACUBITRIL/VALSARTAN 24 MG-26 MG TABLET 2 TAB PO (09:50)
[2024-12-01] MEDS: MONTELUKAST SODIUM 10 MG TABLET PO (09:50)
--- NOTE | 2024-12-01 09:52 | CM.NOTE ---
Rounds made with Dr. Amado, discussed plan of care with pt and daughter. Pt will have cardiac echo today and work with PT. Possible discharge to home this afternoon. Pt does have private critical care nurse that stays with pt 8am-1pm and pt has meals on wheels. Daughter and pt deny any discharge needs at this time.
[2024-12-01] MEDS: FERROUS SULFATE 325 MG TABLET PO (10:01)
[2024-12-01 10:14] LABS: INR 1.54; Prothrombin Time 15.6 sec (9.0-11.6)
--- NOTE | 2024-12-01 10:17 | CM.NOTE ---
Important Message From Medicare discussed with pt, pt verbalizes understanding and signs paper. Original given to pt and copy placed on pt's chart.
--- NOTE | 2024-12-01 11:39 | SWNOTE1 ---
SW spoke to case management and pt has meals on wheels coming in and has a private caregiver coming in as well. No further needs at this time.
[2024-12-01] MEDS: SUCRALFATE 1 GM TABLET PO (12:11)
--- NOTE | 2024-12-01 12:28 | P.DS_ITS ---
DS: Providers Provider Date of admission: 11/30/24 13:59 Primary care physician: REN LAL DO Consults: 11/30/24 07:10 Occupational Therapy Eval and Treat Routine Reason for consultation: Only if needed for Rehab Has provider been notified: No Physical Therapy Eval and Treat Routine Reason for consultation: Eval and Treat Has provider been notified: No DS: Diagnosis Discharge Diagnosis (1) Congestive heart failure: (2) Community acquired pneumonia: Plan Admission findings: Respiratory distress, lactic acidosis and left shift on white blood cell count consistent with bacterial process, uncontrolled hypertension secondary to bilateral lower lobe pneumonia resulting in acute exacerbation of COPD and causing a acute systolic heart failure. Community-acquired pneumonia-bilateral with no leukocytosis but significant left shift consistent with bacterial process and lactic acidosis--0 leading to acute exacerbation of COPD-IV antibiotics, aerosol treatments [id number] and as needed, steroids try to obtain sputum culture Acute systolic heart failure secondary to the above-troponins are negative, BNP slightly elevated compared to previous day, with significant pulmonary congestion we will try patient on Bumex drip as long as his blood pressure can tolerate that, check echocardiogram Acute rectal bleeding-repeat CBC later today hold his Coumadin, but not reverse at this point his hemoglobin this morning was higher than previous day Pulmonary embolism-as why he is on the Coumadin, will maintain that monitor daily Acute elevation in creatinine, baseline creatinine of 1.05, creatinine admission of 1.50 which is 142.8% above baseline Iron deficiency anemia-monitor daily Hyperglycemia-monitor daily Hypomagnesemia-supplement Hypercholesterolemia continue with home medications Hypertension by history-monitor closely, may need to adjust blood pressure medications if blood pressure remains low Depression-continue with home medications GERD-continue with home medications Admission status: Patient with significant respiratory distress and bilateral lower lobe pneumonia with acute exacerbation of COPD and complicated by acute systolic heart failure, medically necessary treatment will span 2 midnights. Inpatient status DS: Summary Hospital Course Hospital Course: Patient admitted with Respiratory distress, lactic acidosis and left shift on white blood cell count consistent with bacterial process, uncontrolled hypertension secondary to bilateral lower lobe pneumonia resulting in acute exacerbation of COPD and causing a acute systolic heart failure. Diuresed and did well with that is having less shortness of breath today. Also some significant rectal bleeding however his hemoglobin remained stable throughout the hospital course. His urinalysis is positive for acute UTI, but white blood cell count is also normal does have some mild hypokalemia today but BNP is improving, he did ambulate up in the hallway and is able to ambulate without any hypoxia, at this point to be discharged to home in improving condition. Medications to this. Follow-up with his PCP within the next week. Time Spent with Patient Time attestation: Total time spent providing and/or coordinating discharge services: Exam Constitutional Vital Signs, click to edit/add: Last Vital Signs Temp 97.9 F 12/01/24 12:12 Pulse 60 12/01/24 12:12 Resp 20 12/01/24 12:12 BP 112/69 12/01/24 12:12 Pulse Ox 91 L 12/01/24 12:12 O2 Del Method Room Air 12/01/24 12:12 Documenting provider has reviewed patient's vital signs: yes Common normals: apparent distress (Mild conversational dyspnea with some cough throughout the evaluation) HENMT Common normals: normocephalic Chest Common normals: inspection of chest normal Respiratory Common normals: normal respiratory effort (Dyspnea resolved) Auscultation: rales (Resolved in bases); no rhonchi, no wheezes and no egophony (Much improved) Cardio Common normals: regular rate and regular rhythm DS: Data Data Completed and Pending Labs on day of discharge: Labs from last 24 hours 12/01/24 12/01/24 11/30/24 09:43 05:29 12:00 WBC 5.6 6.6 RBC 3.86 L 3.93 L Hgb 12.1 L 12.3 L Hct 37.7 L 37.8 L MCV 97.7 H 96.2 H MCH 31.3 31.3 MCHC 32.1 32.5 RDW 13.2 13.2 Plt Count 142 L 165 MPV 10.0 10.3 Neut % (Auto) 69.5 77.8 H Lymph % (Auto) 16.0 L 10.4 L [place] % (Auto) 13.2 H 10.3 Eos % (Auto) 0.4 L 0.3 L Baso % (Auto) 0.5 0.6 Neut # (Auto) 3.9 5.2 Lymph # (Auto) 0.9 L 0.7 L [place] # (Auto) 0.7 0.7 Eos # (Auto) 0.0 0.0 Baso # (Auto) 0.0 0.0 Abs Immat Gran (auto) 0.02 0.04 H Imm/Tot Granulo (auto) 0.4 0.6 H PT 15.6 H INR 1.54 Sodium 137 Potassium 3.4 L Chloride 103 Carbon Dioxide 25.7 Anion Gap 11.7 BUN 34.0 H Creatinine 1.18 Est GFR ( Amer) >60 Est GFR (Non-Af Amer) 58 L BUN/Creatinine Ratio 28.8 Glucose 103 Calcium 8.8 NT-Pro-B Natriuret Pep 2909.0 H* Urine RBC Urine WBC Ur Squamous Epith Cells Urine Crystals Urine Bacteria Urine Casts Urine Mucus Ur Culture Indicated? 11/30/24 10:45 WBC RBC Hgb Hct MCV MCH MCHC RDW Plt Count MPV Neut % (Auto) Lymph % (Auto) [place] % (Auto) Eos % (Auto) Baso % (Auto) Neut # (Auto) Lymph # (Auto) [place] # (Auto) Eos # (Auto) Baso # (Auto) Abs Immat Gran (auto) Imm/Tot Granulo (auto) PT INR Sodium Potassium Chloride Carbon Dioxide Anion Gap BUN Creatinine Est GFR ( Amer) Est GFR (Non-Af Amer) BUN/Creatinine Ratio Glucose Calcium NT-Pro-B Natriuret Pep Urine RBC 0-2 Urine WBC 2-5 A Ur Squamous Epith Cells Few A Urine Crystals None seen Urine Bacteria Trace A Urine Casts None seen Urine Mucus Trace A Ur Culture Indicated? No Discharge Plan Discharge Disposition: Home, Self-Care Condition: Fair Discharge Medications: New cefdinir 300 mg capsule 600 mg PO DAILY Qty: 20 0RF furosemide [Lasix] 20 mg tablet 20 mg PO DAILY Qty: 30 11RF Continued atorvastatin 40 mg tablet 40 mg PO .QHS carvedilol 12.5 mg tablet 12.5 mg PO BID duloxetine 30 mg capsule,delayed release(DR/EC) 30 mg PO .qhs montelukast 10 mg tablet 10 mg PO DAILY omeprazole 40 mg capsule,delayed release(DR/EC) 40 mg PO DAILY warfarin [Jantoven] 4 mg tablet 4 mg PO DAILY potassium chloride 20 mEq tablet,ER particles/crystals 20 meq PO DAILY sucralfate 1 gram tablet 1 g PO BID@1200,2200 ferrous sulfate [Feosol] 325 mg (65 mg iron) tablet 325 mg PO DAILY sacubitril-valsartan [Entresto] 49-51 mg tablet 1 tab PO BID Rx Instructions: HOLD BEDTIME DOSE IF SBP <110 Discontinued hydrochlorothiazide 12.5 mg tablet 12.5 mg PO DAILY Activity: increase activity as tolerated Diet: advance to your usual diet Print Language: Japanese Patient Instructions: Heart Failure (DC), Pneumonia (DC) Forms: Portal Instructions Follow Up Appointments: Please call Dr. Lal's office to schedule a follow up appt for 5-7 days following discharge. [phone] Discharge Date/Time: 12/01/24 15:39
--- NOTE | 2024-12-01 14:25 | SWNOTE1 ---
SW reviewed therapy notes and pt did well, no identified needs at this time.
[2024-12-02 07:51] LABS: BOX Test Reference Lab FIRELANDS; BOX Test Sent Out SPUTUM CULTURE
--- NOTE | 2024-12-02 16:21 | CM.DCFOLLOWU ---
Person spoke with: patient How are you feeling? well How is your pain? none Did you understand your discharge instructions?yes Do you have any questions about your discharge instructions?no Were you given any prescriptions at discharge? yes Were you able to get your prescriptions filled? they were not ready, daughter checking today Do you understand how to take your medications as ordered?yes Do you have any questions about your follow up appointment and do you plan to keep your follow up appointment? no questions, will call [facility] office Is there anything else that you would like to discuss?no Questions/Comments/Concerns/Other: none
== END 2024-12-01 15:39 | disposition home or self-care (01) | DRG 177 ==
LOC: ER 11-30 00:25 → MS 11-30 00:58
PROVIDERS: Registered Nurse; Admitting Provider Family Medicine; Emergency Provider Student in an Organized Health Care Education/Training Program; PCP Internal Medicine; Visit Provider Family Medicine
DX: J15.0 Pneumonia due to Klebsiella pneumoniae (principal); I50.21 Acute systolic (congestive) heart failure; J44.1 Chronic obstructive pulmonary disease with (acute) exacerbation; J44.0 Chronic obstructive pulmonary disease with (acute) lower respiratory infection; K62.5 Hemorrhage of anus and rectum; N39.0 Urinary tract infection, site not specified; I11.0 Hypertensive heart disease with heart failure; D50.9 Iron deficiency anemia, unspecified; R73.9 Hyperglycemia, unspecified; E83.42 Hypomagnesemia; F32.A Depression, unspecified; E78.00 Pure hypercholesterolemia, unspecified; I25.10 Atherosclerotic heart disease of native coronary artery without angina pectoris; K21.9 Gastro-esophageal reflux disease without esophagitis; E87.6 Hypokalemia; I48.0 Paroxysmal atrial fibrillation; I25.2 Old myocardial infarction; Z95.0 Presence of cardiac pacemaker; Z95.5 Presence of coronary angioplasty implant and graft; Z96.659 Presence of unspecified artificial knee joint; Z96.649 Presence of unspecified artificial hip joint; Z87.891 Personal history of nicotine dependence; Z79.01 Long term (current) use of anticoagulants; Z79.899 Other long term (current) drug therapy; Z86.718 Personal history of other venous thrombosis and embolism; Z86.73 Personal history of transient ischemic attack (TIA), and cerebral infarction without residual deficits; Z86.711 Personal history of pulmonary embolism
CPT/HCPCS: 36415; 71045; 80048; 80053; 81001; 83605; 83735; 83880; 84484; 85025; 85610; 85730; 87040; 87070; 87205; 87804; 87811; 93005; 93308; 94640; 94667; 94668; 94761; 96365; 96375; 97163; 97165; 99285; G0328; J0456; J0696; J1940

== ENCOUNTER 2024-12-01 00:38 | Outpatient (RCR) | payer MEDICARE, SELFPAY | END 2024-12-30 14:51 | disposition home or self-care (01) | LOC: MM 00:38 | PROVIDERS: PCP Internal Medicine; Visit Provider Internal Medicine | DX: Z51.81 Encounter for therapeutic drug level monitoring (principal); Z79.01 Long term (current) use of anticoagulants; I48.91 Unspecified atrial fibrillation | CPT/HCPCS: 85610; G0463 ==

== ENCOUNTER 2024-12-06 08:33 | Outpatient (OUT) | payer MEDICARE, SELFPAY ==
[2024-12-06 09:09] LABS: Basophils Percent Auto 0.3 % (0.2-2.0); Eosinophils Absolute Auto 0.1 10^3/uL (0.0-0.7); Eosinophils Percent Auto 0.8 % (0.9-7.0); Hematocrit 40.4 % (42.0-54.0); Hemoglobin 13.2 g/dL (14.0-18.0); Immature Granulocytes Abs Auto 0.03 10^3/uL (0.00-0.03); Immature Granulocytes Pct Auto 0.4 % (0.0-0.5); Lymphocytes Absolute Auto 1.2 10^3/uL (1.2-3.8); Lymphocytes Percent Auto 16.4 % (20.5-60.0); Mean Corpuscular HGB Conc 32.7 g/dL (29.9-35.2); Mean Corpuscular Hemoglobin 31.1 pg (25.9-34.0); Mean Corpuscular Volume 95.3 fL (80.0-94.0); Mean Platelet Volume 9.9 fL (9.5-13.5); Monocytes Absolute Auto 0.5 10^3/uL (0.3-0.8); Monocytes Percent Auto 6.6 % (1.7-12.0); Neutrophils Absolute Auto 5.5 10^3/uL (1.4-6.5); Neutrophils Percent Auto 75.5 % (43.0-75.0); Platelet Count 146 10^3/uL (150-450); Red Blood Count 4.24 10^6/uL (4.70-6.10); Red Cell Distribution Width 13.1 % (11.0-15.0); White Blood Count 7.3 10^3/uL (4.0-11.0)
[2024-12-06 09:53] LABS: Alanine Aminotransferase 27 U/L (16-63); Albumin Globulin Ratio 1.1; Albumin Level 3.5 g/dL (3.4-5.0); Alkaline Phosphatase 66 U/L (46-116); Aspartate Amino Transferase 26 U/L (15-37); Bilirubin Direct 0.2 mg/dL (0.0-0.2); Bilirubin Total 0.8 mg/dL (0.2-1.0); Carbon Dioxide 26.5 mmol/L (21.0-32.0); Chloride 106 mmol/L (98-107); Cholesterol 126 mg/dL (<=200); Estimated GFR (African America >60 (>=60 mL/min/1.73m^2); Estimated GFR (Non-African Ame 58 (>=60 mL/min/1.73m^2); Globulin 3.1 g/dL; HDL Cholesterol 42 mg/dL (40-60); Potassium 3.5 mmol/L (3.5-5.1); Sodium 141 mmol/L (136-145); Thyroid Stimulating Hormone 3.485 uIU/mL (0.358-3.740); Total Protein 6.6 g/dL (6.4-8.2); Triglycerides 130 mg/dL (<=150)
== END 2024-12-06 08:34 | disposition home or self-care (01) ==
LOC: LAB 08:35
PROVIDERS: PCP Internal Medicine; Visit Provider Internal Medicine
DX: E78.5 Hyperlipidemia, unspecified (principal); I11.0 Hypertensive heart disease with heart failure; I50.40 Unspecified combined systolic (congestive) and diastolic (congestive) heart failure; Z79.899 Other long term (current) drug therapy; E55.9 Vitamin D deficiency, unspecified; Z51.81 Encounter for therapeutic drug level monitoring; Z79.01 Long term (current) use of anticoagulants; I48.91 Unspecified atrial fibrillation
CPT/HCPCS: 36415; 80051; 80061; 80076; 82306; 82565; 83880; 84443; 84520; 85025; 85610; G0463

== ENCOUNTER 2025-01-02 02:27 | Outpatient (RCR) | payer MEDICARE, SELFPAY | END 2025-01-27 13:36 | disposition home or self-care (01) | LOC: MM 02:27 | PROVIDERS: PCP Internal Medicine; Visit Provider Internal Medicine | DX: Z51.81 Encounter for therapeutic drug level monitoring (principal); Z79.01 Long term (current) use of anticoagulants; I48.91 Unspecified atrial fibrillation | CPT/HCPCS: 85610; G0463 ==

== ENCOUNTER 2025-01-28 12:27 | Outpatient (RCR) | payer MEDICARE, SELFPAY | END 2025-02-24 12:35 | disposition home or self-care (01) | LOC: MM 12:27 | PROVIDERS: PCP Internal Medicine; Visit Provider Internal Medicine | DX: Z51.81 Encounter for therapeutic drug level monitoring (principal); Z79.01 Long term (current) use of anticoagulants; I48.91 Unspecified atrial fibrillation ==

== ENCOUNTER 2025-02-28 02:19 | Outpatient (RCR) | payer MEDICARE, SELFPAY | END 2025-03-29 14:27 | disposition home or self-care (01) | LOC: MM 02:19 | PROVIDERS: PCP Internal Medicine; Visit Provider Internal Medicine | DX: Z51.81 Encounter for therapeutic drug level monitoring (principal); Z79.01 Long term (current) use of anticoagulants; I48.91 Unspecified atrial fibrillation ==

== ENCOUNTER 2025-03-30 04:50 | Outpatient (RCR) | payer MEDICARE, SELFPAY | END 2025-04-28 15:01 | disposition home or self-care (01) | LOC: MM 04:50 | PROVIDERS: PCP Internal Medicine; Visit Provider Internal Medicine | DX: Z51.81 Encounter for therapeutic drug level monitoring (principal); Z79.01 Long term (current) use of anticoagulants; I48.91 Unspecified atrial fibrillation | CPT/HCPCS: 85610; G0463 ==

== ENCOUNTER 2025-04-30 07:55 | Outpatient (RCR) | payer MEDICARE, SELFPAY | END 2025-05-25 14:48 | disposition home or self-care (01) | LOC: MM 07:55 | PROVIDERS: PCP Internal Medicine; Visit Provider Internal Medicine | DX: Z51.81 Encounter for therapeutic drug level monitoring (principal); Z79.01 Long term (current) use of anticoagulants; I48.91 Unspecified atrial fibrillation | CPT/HCPCS: 85610; G0463 ==

== ENCOUNTER 2025-05-09 08:25 | Outpatient (OUT) | payer MEDICARE, SELFPAY ==
--- OUTSIDE RECORDS SUMMARY | 2025-05-09 08:29 | XMS_ITS | Encounter Summary ---
Author Organization [facility] Address [id number] [address] [place] [address] Care Team Providers Care Software Engineer Advisor Name Role Phone Tk Worrell DO, Charles L Primary Care Provider Encounter Details Date Type Department Care Team (Late st Contact Info) Description 05/16/2021 Orders Only [facility] [employer] [address] [place] [id number] Transcribe, Orders Support User Pain (Primary Dx) Social History Tobacco Use Types Packs/Day Years Used Date Smoking Tobacco: Never Assessed Childcare Answer Date Recorded Childcare Unknown 05/11/2019 Employment Answer Date Recorded Employment Unknown 05/11/2019 Sex and Gender Information Value Date Recorded Sex Assigned at Not on file Legal Sex Male 11:22 AM EDT Gender Identity Not on file Sexual Orientation Not on file documented as of this encounter Plan of Treatment Not on file documented as of this encounter Results * CT angiogram carotid (05/16/2021 11:00 AM EDT) us Scanning Provider External IMG CT ORDERABLES Fin al Result * CT angiogram head (05/16/2021 10:55 AM EDT) us Scanning Provider External IMG CT ORDERABLES Fin al Result * CT brain with and without contrast (05/15/2021 10:00 AM EDT) us Scanning Provider External IMG CT ORDERABLES Fin al Result * CT brain without contrast (05/14/2021 12:50 AM EDT) us Scanning Provider External IMG CT ORDERABLES Fin al Result documented in this encounter Visit Diagnoses Diagnosis Pain- Primary Generalized pain documented in this encounter Care Teams Software Engineer Advisor Relationship Specialty Start Date End Date Rio Frey Jr., [address] [place] [id number] PCP - General Internal Medicine 11/25/21 documented as of this encounter
--- OUTSIDE RECORDS SUMMARY | 2025-05-09 08:29 | XMS_ITS | Encounter Summary ---
Author Organization [facility] Address [address] [place] [address] Care Team Providers Care Energy Technician Name Role Phone Rio Frey MD Primary Care Provider [phone] Encounter Details Date Type Department Care Team (Late Contact Info) Description 07/30/[address] [facility] [address] [place] [phone] Cornell Daily DPM [address] [place], [place] [phone] Social History Tobacco Use Types Packs/Day Years Used Date Smoking Tobacco: Former Cigarettes Tobacco Cessation:Counseling Given: Not Answered Alcohol Use Standard Drinks/Week Comments Never 0 (1 standard drink = 0.6 oz pur e alcohol) Caffeine intake: none Sex and Gender Information Value Date Recorded Sex Assigned at Not on file Legal Sex Male 6:56 PM EDT Gender Identity Not on file Sexual Orientation Not on file documented as of this encounter Plan of Treatment Upcoming Encounters Date Type Department Care Team (Late st Contact Info) Description 05/17/2025 9:30 AM EDT Procedure Visit [facility] [address] [place] [phone] Cornell Daily DPM [address] [place] [address] documented as of this encounter Visit Diagnoses Not on filedocumented in this encounter Care Teams Energy Technician Relationship Specialty Start Date End Date Rio Frey MD [address] [place], [place] [address], [place] [address] PCP - General Internal Medicine 07/29/23 documented as of this encounter
--- OUTSIDE RECORDS SUMMARY | 2025-05-09 08:29 | XMS_ITS | Clinical Summary ---
Author Organization [employer] [facility] tem Address [id number] [address] [place] [address] Care Team Providers Care Filter Tender Name Role Phone Tk Worrell DO, Charles L Primary Care Provider Allergies No known active allergies Medications aspirin 81 mg Take 81 mg by mouth daily. Active hydrALAZINE (APRESOLINE) 10 mg tablet 50 mg. Active losartan (COZAAR) 25 mg tablet 1 tablet Active [id number]-vh J34-gcdlo oil (METANX, ALGAL OIL,) 3 mg-35 mg-2 mg -90.314 mg capsule Take by mouth. Active DULoxetine (CYMBALTA) 60 mg capsule duloxetine 60 mg capsule,delayed release Active ferrous sulfate 325 (65 FE) mg tablet daily. Active polysaccharide iron complex 180 mg iron capsule Pro Fe 180 mg iron capsule TAKE 1 CAPSULE BY MOUTH TWICE DAILY Active montelukast (SINGULAIR) 10 mg tablet 1 Active tiotropium (SPIRIVA WITH HANDIHALER) 18 mcg per inhalation capsule Spiriva with HandiHaler 18 mcg and inhalation capsules Active warfarin (JANTOVEN) 4 mg tablet 4 mg. Active SPIRIVA WITH HANDIHALER 18 mcg per inhalation capsule 1 Active Active Problems No known active problems Family History Medical History Relation Name Comments Lung cancer Father Diabetes Mother Pancreatic cancer Nephew 1 Pancreatic cancer Nephew 2 Breast cancer Sister Relation Name Status Comments Father Mother (Age 93) Nephew 1 Nephew 2 Sister Social History Tobacco Use Types Packs/Day Years Used Date Smoking Tobacco: Former Cigarettes Q uit: 1984 Smokeless Tobacco: Never Childcare Answer Date Recorded Childcare Unknown 05/11/2019 Employment Answer Date Recorded Employment Unknown 05/11/2019 Sex and Gender Information Value Date Recorded Sex Assigned at Not on file Legal Sex Male 11:22 AM EDT Gender Identity Not on file Sexual Orientation Not on file Last Filed Vital Signs Vital Sign Reading Time Taken Comments Blood Pressure 120/70 12/04/2021 9:32 AM EST Pulse - - Temperature 35.9 C (96.6 F) 12/04/2021 9:32 AM EST Respiratory Rate - - Oxygen Saturation - - Inhaled Oxygen Concentration - - Weight 98.9 kg (218 lb) 12/04/2021 9:32 AM EST Height 174 cm (5' 8.5 ) 12/04/2021 9:32 AM EST Body Mass Index 32.66 12/04/2021 9:32 AM EST Plan of Treatment Health Maintenance Due Date Last Done Comments Depression Screening 1947 Tobacco Screening 1947 DTaP,Tdap and Td Vaccines (1 - Tdap) 1955 Zoster (Shingles) Vaccine (1 of 2) 1986 Fall Risk Screening 2001 COVID-19 Vaccine (4 - 2023-2 5 season) 2024 10/01/2021, 01/10/2021, 12/20/2020 Influenza Vaccine 07/31/2025 11/01/2018, 11/03/2017 Medical Devices Not on file Insurance MEDICARE Care Teams Filter Tender Relationship Specialty Start Date End Date Rio Frey Jr., DO [address] [place] [address] PCP - General Internal Medicine 11/25/21
--- OUTSIDE RECORDS SUMMARY | 2025-05-09 08:29 | XMS_ITS | Encounter Summary ---
Author Organization [facility] Address [address] [place] [address] Care Team Providers Care Automation Machine Operator Name Role Phone Tk Worrell DO, Charles Lewis Primary Care [facility] Source Comments In the event this information is protected by the Federal Confidentiality of Alcohol and Drug AbusePatient Records regulations: The Federal rules restrict any use of the information to criminally investigate or prosecute any alcohol or drug abuse patient.[facility] Encounter Details Date Type Department Care Team (Late st Contact Info) Description 10/04/2014 Get Medical Advice Orthopaedics [address] [phone] Cornell Wilkinson [address] [place] [phone] RE: Upcoming Appointment Question Social History Tobacco Use Types Packs/Day Years Used Date Smoking Tobacco: Former Cigarettes 3 30 0 11/30/1954 - 11/30/1984 Smokeless Tobacco: Never Alcohol Use Standard Drinks/Week Comments No 0 (1 standard drink = 0.6 oz pur e alcohol) no etoh since 1984 Sex and Gender Information Value Date Recorded Sex Assigned at Not on file Legal Sex Male 12:06 PM EDT Gender Identity Not on file Sexual Orientation Not on file documented as of this encounter Functional Status * Are you deaf or do you have serious difficulty hearing? Answer Date of Assessment Author No 09/13/2014 9:06 AM Joie Briggs LPN * Are you blind or do you have serious difficulty seeing, even when wearing glasses? Answer Date of Assessment Author No 09/13/2014 9:06 AM Joie Briggs LPN * Do you have serious difficulty walking or climbing stairs? Answer Date of Assessment Author Yes 09/13/2014 9:06 AM Joie Briggs LPN * Do you have difficulty dressing or bathing? Answer Date of Assessment Author No 09/13/2014 9:06 AM Joie Briggs LPN * Because of a physical, mental, or emotional condition, do you have difficulty doing errands alone such as visiting a doctor's office or shopping? Answer Date of Assessment Author No 09/13/2014 9:06 AM Joie Briggs LPN documented as of this encounter Mental Status * Because of a physical, mental, or emotional condition, do you have serious difficulty concentrating, remembering, or making decisions? Answer Entry Date Author No 09/13/2014 9:06 AM Joie Briggs LPN documented in this encounter Plan of Treatment Not on file documented as of this encounter Visit Diagnoses Not on filedocumented in this encounter Care Teams Automation Machine Operator Relationship Specialty Start Date End Date Rio Frey Jr., [facility] [place] [address] PCP - General Internal Medicine 09/02/13 documented as of this encounter
--- OUTSIDE RECORDS SUMMARY | 2025-05-09 08:29 | XMS_ITS | Clinical Summary ---
Author Organization [facility] Address [address] [place] [address] Care Team Providers Care Speech Pathology Assistant Name Role Phone Rio Frey MD Primary Care Provider Allergies No known active allergies Medications atorvastatin (Lipitor) 40 MG tablet 40 mg 1 (one) time each day at the same time Active carvedilol (Coreg) 12.5 MG tablet Take 12.5 mg by mouth in the morning and 12.5 mg in the evening. Take with meals. 3 Active DULoxetine (Cymbalta) [address] capsule Take 30 mg by mouth 3 Active hydrALAZINE (Apresoline) 10 MG tablet 10 mg in the morning and 10 mg at noon and 10 mg in the evening and 10 mg before bedtime. Active hydroCHLOROthia zide (HYDRODiuril) 12.5 MG tablet 12.5 mg 3 Active losartan (Cozaar) 25 MG tablet 25 mg 1 (one) time each day at the same time Active ondansetron (Zofran) 4 MG tablet 3 Active Jantoven 4 MG tablet 4 mg 3 Active omeprazole (PriLOSEC) [address] capsule 40 mg 3 Active montelukast (Singulair) 10 MG tablet 3 Active furosemide (Lasix) 20 MG tablet Take 20 mg by mouth Daily 5 Active ferrous sulfate 325 (65 Fe) MG tablet Take 325 mg by mouth in the morning. Take with meals. Active potassium chloride CR (Klor-Con M20) 20 MEQ ER tablet Take 20 mEq by mouth Daily 5 Active sucralfate (Carafate) 1 g tablet 1 g 5 Active sacubitril-vals norman (Entresto) 49-51 MG tablet Take 1 tablet by mouth in the morning and 1 tablet before bedtime. Active budesonide (Pulmicort) 0.5 MG/2ML nebulizer solution Take 0.5 mg by nebulization in the morning and 0.5 mg before bedtime. Rinse mouth with water after use to reduce aftertaste and incidence of candidiasis. Do not swallow.. Active Multiple Vitamins-Minera ls (EYE VITAMINS PO) Take by mouth Act andra ascorbic acid (Vitamin C) 500 MG tablet Take 500 mg by mouth Daily Active cholecalciferol (Vitamin D-3) 25 MCG (1000 UT) capsule Take 1,000 Units by mouth Daily Active Immunizations Immunization Administration Dates Next Due Influenza, injectable, quadrivalent, preservativ e free 11/01/2018,11/03/2017 Pneumococcal Conjugate PCV 13 12/02/2017 Family History Medical History Relation Name Comments Diabetes Mother Hypertension Mother Breast cancer Sister Relation Name Status Comments Father Mother Sister Social History Tobacco Use Types Packs/Day Years Used Date Smoking Tobacco: Former Cigarettes Smokeless Tobacco: Never Tobacco Cessation:Counseling Given: Not Answered Alcohol Use [...] Sign Reading Time Taken Comments Blood Pressure 101/62 09/22/2019 12:00 PM EDT Pulse - - Temperature - - Respiratory Rate - - Oxygen Saturation - - Inhaled Oxygen Concentration - - Weight 102 kg (224 lb) 10/19/2024 9:08 AM EST Height 171.5 cm (5' 7.5 ) 10/19/2024 9:08 AM EST Body Mass Index 34.57 10/19/2024 9:08 AM EST Plan of Treatment Upcoming Encounters Date Type Department Care Team (Late st Contact Info) Description 05/17/2025 9:30 AM EDT Procedure Visit [facility] [address] [facility] [address] Cornell Daily, DPM [address] [place], [place] [phone] Health Maintenance Due Date Last Done Comments Pneumococcal Vaccine: 65+ Ye ars (2 of 2 - PPSV23) 12/02/2018 12/02/2017 Influenza Vaccine (Season Ended) 2025 11/01/20 18, 11/03/[address] [facility] Care Teams Speech Pathology Assistant Relationship Specialty Start Date End Date Rio Frey MD [address] [place] [address] [place] [address] PCP - General Internal Medicine 07/29/23
--- OUTSIDE RECORDS SUMMARY | 2025-05-09 08:29 | XMS_ITS | Clinical Summary ---
Author Organization [facility] Address [address] [place] [address] Care Team Providers Care Fermenter Champagne Name Role Phone Rio Frey MD Primary Care Provider [phone] Allergies No known active allergies Medications Medication Sig Dispensed Refills Start Date End Date Status atorvastatin (Lipitor) 40 mg tablet 1 (one) time each day at the same time. Active carvedilol (Coreg) 12.5 mg tablet Take 1 tablet twice a day by oral route. Active DULoxetine (Cymbalta) [address] capsule Take 30 mg by mouth in the morning. Active sacubitriL-valsart an (Entresto) 49-51 mg tablet Take 1 tablet twice a day by oral route. 10/31/2020 Active ferrous sulfate 325 (65 Fe) MG EC tablet Take 1 tablet by mouth in the morning. Active furosemide (Lasix) 40 mg tablet PRN for LE edema Active Spiriva with HandiHaler 18 mcg inhalation capsule 11/21/2021 Active nitroglycerin (Nitrostat) 0.[address] 1 tab under tongue at the beginning of chest pain. May repeat every 5 minutes if pain persists. Do not repeat more that 3 times. Active montelukast (Singulair) 10 mg tablet 09/08/2022 Active warfarin (Coumadin) 5 mg tablet Take 5 mg by mouth. Take as directed per After Visit Summary. Follow up with [facility] for INR Active hydroCHLOROthiazid e 12.5 mg tablet Take 12.5 mg by mouth 2 times daily. 10/03/2023 Active omeprazole (PriLOSEC) [address] capsule 03/29/2023 Active sucralfate (Carafate) 1 gram tablet Take 1 g by mouth before breakfast and before evening meal. 05/07/2024 Active Active Problems Problem Noted Date Diagnosed Date CAD S/P percutaneous coronary angioplasty 202312/03/2023 Overview (12/03/2023): unclear about stents Coronary artery disease invo lving [place] coronary artery of [place] heart without angina pectoris 10/29/2022 Overview (10/29/2022): Stent to LAD and RCA April 2013 Assessment & Plan (10/29/2022 10:22 AM EST): Continue GDMT- continue coreg, lipitor- no ASA with anticoagulation- jantoven Acute on chronic systolic heart failure, NYHA cl ass 2 10/29/2022 Overview (10/29/2022): chronic systolic heart failure and underwent upgrade to a BiV pacer (no ICD) in 2016, recovered EF on follow up. Assessment & Plan (10/29/2022 10:24 AM EST): Continue GDMT- lipitor, coreg, entresto, lasix NYHC II-III Currently euvolemic without exacerbation Overall pt is doing quite well No concerning symptoms today Monitor daily weights, I&O, fluid restriction 1.5-2L/day, renal function remains stable Chronic atrial fibrillation 10/29/2022 Assessment & Plan (10/29/2022 10:26 AM EST): [id number]= 5 Remains rate controlled with coreg and anticoagulation with jantoven Denied any bleeding tendencies Presence of biventricular cardiac pacemaker 10/02 Assessment & Plan (10/29/2022 10:18 AM EST): Device check 10/14/22 Device functioning normal, 99% BI-V pacing 04/15/22- battery life 7 yrs, normal device function, no ventricular arrythmias, 100% Bi-V paced Benign hypertensive cardiomyopathy with heart fa ilure 10/29/2022 Dyspnea on exertion 10/29/2022 Edema of both lower extremities 10/29/2022 Arthritis 10/29/2022 Asthma, allergic 10/29/2022 DVT (deep venous thrombosis) 10/29/2022 Hyperlipidemia 10/29/2022 Assessment & Plan (10/29/2022 10:21 AM EST): Annual labs with PCP- Dr Gil Continue lipitor Morbid obesity with BMI of 40.0-44.9, adult 10/02 Osteoarthritis of right hip 10/29/2022 Pulmonary embolism 10/29/2022 Mitral valve disorder 03/09/2014 Assessment & Plan (10/29/2022 10:20 AM EST): No concerning symptoms today Will monitor with routine echo- or repeat echo with concerning symptoms Implantable cardioverter-defibrillator (ICD) in situ 02/03/2014 12/03/2023 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 History of cardiovascular disorder 05/18/2013 Encounter for long-term (current) use of insulin 11/17/2012 Conduction disorder of the heart 05/06/2012 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 Dizziness and giddiness 05/04/2012 Chronic disease of cardiovascular system 012 Encounters Date Type Department Care Team Description 03/30/2025 Orders Only [facility] [address] [place] [phone] Volodymyr Knott MD 03/30/2025 Orders Only [facility] [address] [place] [address] Juan Bauer MD 02/27/2025 5:25 PM EDT Ancillary Procedure [facility] [address] [place] [address] Adjustment and management of cardiac pacemaker from Last 3 Months Social History Tobacco Use Types Packs/Day Years Used Date Smoking Tobacco: Former Cigarettes 1 967 - 1984 Smokeless Tobacco: Never Tobacco Cessation:Counseling Given: Not Answered [place] Safety & Environment Answer Date Rec orded Fear of Current or Ex-Partner Not on file Emotionally Abused Not on file 01/21/2024 Physically Abused Not on file 01/21/2024 Sexually Abused Not on file 01/21/2024 Physically or Sexually Abused Not on file Sex and Gender Information Value Date Recorded Sex Assigned at Not on file Gender Identity Not on file Sexual Orientation Not on file Last Filed Vital Signs Vital Sign Reading Time Taken Comments Blood Pressure 128/79 06/20/2024 9:41 AM EDT Pulse 59 06/20/2024 9:41 AM EDT Temperature - - Respiratory Rate - - Oxygen Saturation 98% 06/20/2024 9:41 AM EDT Inhaled Oxygen Concentration - - Weight 104 kg (230 lb) 06/20/2024 9:41 AM EDT Height 175.3 cm (5' 9 ) 06/20/2024 9:41 AM EDT Body Mass Index 33.97 06/20/2024 9:41 AM EDT Plan of Treatment Upcoming Encounters Date Type Department Care Team (Late st Contact Info) Description 05/09/2025 9:45 AM EDT Ancillary Procedure [facility] [address] [place] [phone] Health Maintenance Due Date Last Done Comments Medicare Annual Wellness (AWV) 1936 Depression Screening 1948 Adult Tetanus 1958 Zoster Vaccines (1 of 2) 1986 Fall Risk Screening 2001 Pneumococcal Vaccine: 65+ Years (2 of 2 - PPSV23 or PCV20) 01/27/2018 12/02/2017 COVID-19 Vaccine ( - 2023-2 5 season) 2024 10/01/2021, 01/10/2021, 12/20/2020 Influenza Vaccine (Season Ended) 2025 11/01/2018, 11/03/2017 HIB Vaccines Aged Out No longer eligi ble based on patient's age to complete this topic HPV Vaccines Aged Out No longer eligi ble based on patient's age to complete this topic IPV Vaccines Aged Out No longer eligi ble based on patient's age to complete this topic Meningococcal B Vaccine Aged Out No l onger eligible based on patient's age to complete this topic Meningococcal Vaccine Aged Out No cassandra niesha eligible based on patient's age to complete this topic Rotavirus Vaccines Aged Out No longer eligible based on patient's age to complete this topic Procedures Procedure Name Priority Date/Time Associated Diagnosis Comments CARDIAC DEVICE CHECK CHECK - REMOTE Routine 04/07/2025 11:37 AM EDT Adjustment and management of cardiac pacemaker CARDIAC DEVICE CHECK CHECK - REMOTE Routine 04/04/2025 11:16 AM EDT Adjustment and management of cardiac pacemaker CARDIAC DEVICE CHECK CHECK - REMOTE Routine 04/03/2025 10:31 AM EDT Adjustment and management of cardiac pacemaker CARDIAC DEVICE CHECK - REMOTE - PACEMAKER Routine 03/30/2025 12:00 AM EDT CARDIAC DEVICE CHECK - REMOTE - PACEMAKER Routine 03/30/2025 12:00 AM EDT CARDIAC DEVICE CHECK CHECK - REMOTE Routine 03/28/2025 12:23 PM EDT Adjustment and management of cardiac pacemaker from Last 3 Months Results * CARDIAC DEVICE CHECK - REMOTE - PACEMAKER (04/07/2025 11:37 AM EDT) Only the most recent of4 resultswithin the time period is included. Volodymyr Knott MD CV IMPLANTABLE CARDI AC DEVICE PROCEDURES CPACS * Cardiac device check - Remote pacemaker (03/30/2025 12:00 AM EDT) Only the most recent of2 resultswithin the time period is included. Anatomical Region Laterality Modality Other 03/30/2025 Volodymyr Knott MD CV IMPLANTABLE CARDI AC DEVICE PROCEDURES from Last 3 Months Care Teams Fermenter Champagne Relationship Specialty Start Date End Date Rio Frey MD [address] [place] [address] PCP - General 10/22/22
--- OUTSIDE RECORDS SUMMARY | 2025-05-09 08:29 | XMS_ITS | Encounter Summary ---
Author Organization [facility] Address [address] [place] [address] Care Team Providers Care Certification Engineer Name Role Phone Rio Frey MD Primary Care Provider [phone] Encounter Details Date Type Department Care Team (Late st Contact Info) Description 03/30/2025 Orders Only [facility] [address] [place] [address] Volodymyr Knott MD [address] [place] [address] Social History Tobacco Use Types Packs/Day Years Used Date Smoking Tobacco: Former Cigarettes 7 1984 Smokeless Tobacco: Never [place] Safety & Environment Answer Date Rec orded [...] Description 05/09/2025 9:45 AM EDT Ancillary Procedure [facility] [address] [place] [address] documented as of this encounter Procedures Procedure Name Priority Date/Time Associated Diagnosis Comments CARDIAC DEVICE CHECK - REMOTE - PACEMAKER Routine 03/30/2025 12:00 AM EDT documented in this encounter Results * Cardiac device check - Remote pacemaker (03/30/2025 12:00 AM EDT) Anatomical Region Laterality Modality Other 03/30/2025 Volodymyr Knott MD CV IMPLANTABLE CARDI AC DEVICE PROCEDURES documented in this encounter Visit Diagnoses Not on filedocumented in this encounter Care Teams Certification Engineer Relationship Specialty Start Date End Date Rio Frey MD [facility] [place] [address] PCP - General 10/22/22 documented as of this encounter
--- OUTSIDE RECORDS SUMMARY | 2025-05-09 08:29 | XMS_ITS | Encounter Summary ---
Author Organization [facility] Address [address] [place] [address] Care Team Providers Care Sales Exec Name Role Phone Tk Worrell DO, Charles Lewis [facility] Source Comments In the event this information is protected by the Federal Confidentiality of Alcohol and Drug AbusePatient Records regulations: The Federal rules restrict any use of the information to criminally investigate or prosecute any alcohol or drug abuse patient.[facility] Encounter Details Date Type Department Care Team (Late st Contact Info) Description 08/21/2014 Patient Msg Medical Records [address] [place] [id number] Provider, [facility] RE: Request an Appointment Social History Tobacco Use Types Packs/Day Years Used Date Smoking Tobacco: Former Cigarettes 3 30 0 11/30/1954 - 11/30/1984 Smokeless Tobacco: Never Alcohol Use Standard Drinks/Week Comments Not Asked 0 (1 standard drink = 0.6 oz pur e alcohol) Sex and Gender Information Value Date Recorded Sex Assigned at Not on file Legal Sex Male 12:06 PM EDT Gender Identity Not on file Sexual Orientation Not on file documented as of this encounter Plan of Treatment Not on file documented as of this encounter Visit Diagnoses Not on filedocumented in this encounter Care Teams Sales Exec Relationship Specialty Start Date End Date Rio Frey Jr., DO [facility] [place] [phone] PCP - General Internal Medicine 09/02/13 documented as of this encounter
--- OUTSIDE RECORDS SUMMARY | 2025-05-09 08:29 | XMS_ITS | Clinical Summary ---
Author Organization [facility] Address [address] [place] [id number] Care Team Providers Care Employment Manager Name Role Phone Tk Worrell DO, Charles Lewis Primary [facility] Provi yari Allergies No known active allergies Medications Aspirin 81 mg Tab Take 81 mg by mouth once daily. Active simvastatin 40 mg tablet Take 40 mg by mouth daily at bedtime. Active METHYL-B12/L-M EFOLATE/B6 PHOS (METANX ORAL) Take 1 tablet by mouth twice daily. Active warfarin 4 mg tablet Take 4 mg by mouth once daily. Active nebivolol (BYSTOLIC) 5 mg tablet Take 5 mg by mouth twice daily. Active losartan (COZAAR) 100 mg tablet Take 100 mg by mouth once daily. Active hydrALAZINE (APRESOLINE) 25 mg tablet Take 25 mg by mouth twice daily. Active DULoxetine (CYMBALTA) 60 mg capsule Take 60 mg by mouth daily at bedtime. Active tiotropium (SPIRIVA WITH HANDIHALER) 18 mcg inhalation capsule Inhale 18 mcg as instructed once daily. Active enoxaparin (LOVENOX) 30 mg/0.3 mL injection Inject 0.3 mL subcutaneously every 12 hours. 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 C HF age 90 None Other 2 no h/o VTE, aneu rysm, or dissection Relation Status Comments Father Mother Other 1 Other 2 Social History Tobacco Use Types Packs/Day Years [...] Sign Reading Time Taken Comments Blood Pressure 128/68 09/21/2014 5:40 AM EDT Pulse 69 09/21/2014 5:40 AM EDT Temperature 36.3 C (97.3 F) 09/21/2014 5:40 AM EDT Respiratory Rate 18 09/21/2014 5:40 AM EDT Oxygen Saturation 96% 09/21/2014 5:40 AM EDT Inhaled Oxygen Concentration - - Weight 107 kg (235 lb 14.3 oz) 09/21/2014 5:40 A M EDT Height 172 cm (5' 7.72 ) 09/21/2014 5:40 AM EDT Body Mass Index 36.17 09/21/2014 5:40 AM EDT Plan of Treatment Health Maintenance Due Date Last Done Comments Anxiety Screening 1953 Depression Screening 1953 DTaP,Tdap,Td Vaccine (1 - Tdap) 1955 Pneumococcal Vaccine: 50+ (1 of 1 - PCV) 1986 Shingrix Vaccine (1 of 2) 1986 RSV Vaccine (1 - 1-dose 75+ series) 2011 Diabetes Screening 09/13/2017 09/13/2014, 09/21/2013 Covid-19 Vaccine (1 - season) 2024 Advance Directive Discussion 11/30/2024 Influenza Vaccine (Season Ended) 2025 Medical Devices Implanted Type Area Supervisor Hanging And Trimming Device Identifier Shelf Expiration Date Model / Serial / Lot Pacemaker-Jacquelineia [id number] -2013 Implanted:08/22 (Quantity not on file) Pacemaker [employer] Caroline SCHOFIELD-T / [id number] / Procedures Procedure Name Priority Date/Time Associated Diagnosis Comments BASIC METABOLIC PANEL Routine 09/13/2014 8:03 AM EDT Right knee DJD Preoperative examination, unspecified Other specified pre-operative examination from Last 3 Months or Most Recently Relevant to Health Maintenance Results * BASIC METABOLIC PNL (09/13/2014 8:03 AM EDT) Glucose 97 65 - 100 mg/dL [facility] BUN 23 10 - 25 mg/dL [facility] Creatinine 1.01 0.70 - 1.40 mg/dL [facility] Sodium 138 135 - 146 mmol/L [facility] Potassium 4.6 3.5 - 5.0 mmol/L [facility] Chloride 102 98 - 110 mmol/L [facility] CO2 25 23 - 32 mmol/L [facility] Anion Gap 11 0 - 15 mmol/L [facility] Calcium 9.5 8.5 - 10.5 mg/dL [facility] eGFR- >60 [facility] eGFR-All Other Races >60 . [facility] Comment: eGFR (Estimated GFR) Units of measure: mL/min/1.73 meters squared eGFR is derived from the reexpressed MDRD Study equation using the following parameters: serum creatinine, age, gender and race. The creatinine assay has been calibrated to be traceable to IDMS. An eGFR <60 mL/min/1.73m2 for >3 months is consistent with chronic kidney disease. Refer to KDOQI guidelines for clinical interpretation. Blood specimen (specimen) BLOOD SPECIMEN / Unknown 09/13/2014 8:03 AM EDT 09/13/2014 8:07 AM EDT [facility] Final Result [facility] [address] [place] [address] from Last 3 Months or Most Recently Relevant to Health Maintenance Insurance MEDICARE O SUPERMED PPO Care Teams Employment Manager Relationship Specialty Start Date End Date Rio Frey Jr., DO [address] [place] [phone] PCP - General Internal Medicine 09/02/13
--- OUTSIDE RECORDS SUMMARY | 2025-05-09 08:29 | XMS_ITS | Referral Summary ---
Author Organization [facility] Address [address] [place] [address] Care Team Providers Care Projection Camera Operator Name Role Phone Rio Frey MD Primary Care Provider [phone] Encounters Date Type Department Care Team Description 03/30/2025 Orders Only [facility] [address] [place] [phone] Volodymyr Knott MD 03/30/2025 Orders Only [facility] [address] [place] [phone] Juan Bauer MD 02/27/2025 5:25 PM EDT Ancillary Procedure [facility] [address] [place] [phone] Adjustment and management of cardiac pacemaker from Last 3 Months Allergies No known active allergies Medications Medication [...] Summary. Follow up with behzad anticoagulation for INR Active hydroCHLOROthiazid e 12.5 [...] about stents Coronary artery disease invo lving [place] coronary artery of [place] heart without angina pectoris 10/29/2022 Overview (10/29/2022): Stent to LAD and RCA April 2013 Assessment & Plan (10/29/2022 10:22 AM EST): Continue GDMT- continue coreg, lipitor- no ASA with anticoagulation- [facility] Acute on chronic systolic heart failure, NYHA cl ass 2 10/29/2022 Overview (10/29/2022): chronic systolic heart failure and underwent upgrade to a BiV pacer (no ICD) in 2017, recovered EF on follow up. Assessment & Plan (10/29/2022 10:24 AM EST): Continue GDMT- lipitor, coreg, entresto, lasix [facility] II-III Currently euvolemic without exacerbation Overall pt is doing quite well No concerning symptoms today Monitor daily weights, I&O, fluid restriction 1.5-2L/day, renal function remains stable Chronic atrial fibrillation 10/29/2022 Assessment & Plan (10/29/2022 10:26 AM EST): [id number]= 5 Remains rate controlled with coreg and [...] 05/04/2012 Chronic disease of cardiovascular system 012 Social History Tobacco Use Types Packs/Day Years Used Date Smoking Tobacco: Former Cigarettes 1 967 - 1985 Smokeless Tobacco: Never Tobacco Cessation:Counseling Given: Not [...] Description 05/09/2025 9:45 AM EDT Ancillary Procedure [address] [phone] Procedures Procedure Name Priority Date/Time Associated Diagnosis [...] PROCEDURES from Last 3 Months Care Teams Projection Camera Operator Relationship Specialty Start Date End Date Rio Frey MD [facility] [place] [phone] PCP - General 10/22/22
--- OUTSIDE RECORDS SUMMARY | 2025-05-09 08:43 | XMS_ITS | CCD ---
Author Organization [facility] ion [facility] Care Team Providers Care Doorkeeper Name Role Phone AUXIER, KENDRA SASHA Unavailable Unavailabl e BAKOS, ROSALEE Unavailable Unavailable BAKOS, ROSALEE Unavailable Unavailable AUXIER, KENDRA SASHA Unavailable Unavailabl e BAKOS, ROSALEE Unavailable Unavailable BAKOS, ROSALEE Unavailable Unavailable AUXIER, KENDRA SASHA Unavailable Unavailabl e AUXIER, KENDRA SASHA Unavailable Unavailabl e BAKOS, ROSALEE Unavailable Unavailable BAKOS, ROSALEE Unavailable Unavailable VALONERIO MARSHALL Unavailable Unavailabl e AUXIER, KENDRA SAHSA Unavailable Unavailabl e Valone, Rio Marshall Unavailable Unavailabl e AUXIER, KENDRA SASHA Unavailable Unavailabl e Valone, Rio Marshall Unavailable Unavailabl e MORLEY, LEXI MILKA Unavailable Unavailable Agency, Kendra Sasha~[id number] Unavailable Unavailable ValoneRio Marshall Unavailable Unavailabl e [...] Unavailable Valone Rio CAMACHO Primary Care Provider Jose Amado MD Attending Provider [phone] Jose Amado Attending Unavailable Jose Amado Admitting Unavailable RUSHER, AMY Wetzel Attending Unavailable RUSHER, AMY Wetzel Attending Unavailable RUSHER, AMY Wetzel Attending Unavailable RUSHER, AMY Wetzel Attending Unavailable CUCA KNOTT Referring Unavailable KWABENA, CUCA Referring Unavailable KWABENA, CUCA Referring Unavailable KWABENA, CUCA Referring Unavailable KWABENA, CUCA Referring Unavailable MOUKARBELPARISA Attending Unavailable CUCA KNOTT Referring Unavailable Allergies Allergy Classification Reported Allergen(s) Allergy Type Date of Onset Reaction(s) Facility (1 source) 26856,00; Translations: [Unknown] Propensity to adverse reactions (disorder) 9 [facility] Medications Current Medications Medication Drug Class(es) Dates Sig (Normalized) Sig (Original) ascorbic acid 500 mg chewable tablet (1 source) Vitamin C take 1 tablet by mouth once daily ascorbic acid (Vitamin C) 500 MG tablet Take 500 mg by mouth Daily Active atorvastatin 40 mg oral tablet (4 sources) HMG-CoA Reductase Inhibitor atorvastatin (Lipito r) 40 MG tablet 40 mg 1 (one) time each day at the same time Active budesonide 0.25 mg/ml inhalation suspension (1 source) Corticosteroid take 0.5 mg by mouth in the morning budesonide (Pulmicort) 0.5 MG/2ML nebulizer solution Take 0.5 mg by nebulization in the morning and 0.5 mg before bedtime. Rinse mouth with water after use to reduce aftertaste and incidence of candidiasis. Do not swallow.. Active carvedilol 12.5 mg oral tablet (4 sources) alpha-Adrenergic Cathy, beta-Adrenergic Cathy Start: 10-23-20 23 take 1 tablet by mouth in the morning carvedilol (Coreg) 12.5 MG tablet Take 12.5 mg by mouth in the morning and 12.5 mg in the evening. Take with meals. 10/23/2023 Active cholecalciferol 0.025 mg oral capsule (1 source) Vitamin D take 1 capsule by mouth once daily cholecalciferol (Vitamin D-3) 25 MCG (1000 UT) capsule Take 1,000 Units by mouth Daily Active DULoxetine 30 mg delayed release oral capsule (4 sources) Serotonin and Norepinephrine Reuptake Inhibitor Start: 10-23-20 23 DULoxetine (Cymbalta) [address] capsule Take 30 mg by mouth 10/23/2023 Active ferrous sulfate 325 mg oral tablet (1 source) take 1 tablet by mouth at mealtime ferrous sulfate 325 (65 Fe) MG tablet Take 325 mg by mouth in the morning. Take with meals. Active furosemide 20 mg oral tablet (1 source) Loop Diuretic Start: 01-01-20 25 take 1 tablet by mouth once daily furosemide (Lasix) 20 MG tablet Take 20 mg by mouth Daily 01/01/2025 Active hydrALAZINE hydrochloride 10 mg oral tablet (4 sources) Arteriolar Vasodilator hydrALAZINE (Apresoline) 10 MG tablet 10 mg in the morning and 10 mg at noon and 10 mg in the evening and 10 mg before bedtime. Active hydroCHLOROthiazide 12.5 mg oral tablet (4 sources) Thiazide Diuretic Start: 10-03-20 hydroCHLOROthiazide (HYDRODiuril) 12.5 MG tablet 12.5 mg 10/03/2023 Active losartan potassium 25 mg oral tablet (4 sources) Angiotensin 2 Receptor Cathy losartan (Cozaar) 25 MG tablet 25 mg 1 (one) time each day at the same time Active montelukast 10 mg oral tablet (4 sources) Leukotriene Receptor Antagonist Start: 09-12-20 montelukast (Singulair) 10 MG tablet 09/12/2023 Active Multiple Vitamins-Minerals (EYE VITAMINS PO) (1 source) Multiple Vitamins-Minerals (EYE VITAMINS PO) Take by mouth Active omeprazole 40 mg delayed release oral capsule (4 sources) Proton Pump Inhibitor Start: 09-16-20 omeprazole (PriLOSEC) [address] capsule 40 mg 09/16/2023 Active ondansetron 4 mg oral tablet (4 sources) Serotonin-3 Receptor Antagonist Start: 10-29-20 ondansetron (Zofran) 4 MG tablet 10/29/2023 Active microencapsulated potassium chloride 20 meq extended release oral tablet (1 source) Start: 12-08-19 potassium chloride CR (Klor-Con M20) 20 MEQ ER tablet Take 20 mEq by mouth Daily 12/08/2024 Active sacubitril 49 mg / valsartan 51 mg oral tablet (1 source) Angiotensin 2 Receptor Cathy take 1 tablet by mouth in the morning sacubitril-valsartan (Entresto) 49-51 MG tablet Take 1 tablet by mouth in the morning and 1 tablet before bedtime. Active sucralfate 1000 mg oral tablet (1 source) Aluminum Complex Start: 01-05-20 25 sucralfate (Carafate) 1 g tablet 1 g 01/05/2025 Active warfarin sodium 4 mg oral tablet (4 sources) Vitamin K Antagonist Start: 10-03-20 Jantoven 4 MG tablet 4 mg 10/03/2023 Active Problems Active Problems Problem Classification Problem Date Documented Date Episodic/Chronic Cardiac dysrhythmias (5 sources) Unspecified atrial fibrillation; Translations: [UNSPECIFIED ATRIAL FIBRILLATION] Onset: Chronic Chronic kidney disease (1 source) Chronic kidney disease; 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] Onset: 2 Conduction disorders (6 sources) Encounter for adjustment and management of other part of cardiac pacemaker; Translations: [Encounter for adjustment and management of automatic implantable cardiac defibrillator] Onset: 4 Chronic Congestive heart failure; nonhypertensive (7 sources) [...] DISEASE W/HEART FAIL] Onset: 3 Chronic Mycoses (2 sources) Onychomycosis due to dermatophyte ; Translations: [Tinea unguium] 10-19-2024 Episodic Nutritional deficiencies (1 source) Vitamin D deficiency, unspecified; Translations: [VITAMIN D DEFICIENCY UNSPECIFIED] Onset: 2 Chronic Other aftercare (5 sources) Encounter for therapeutic drug level monitoring; Translations: [ENC THERAPEUTC DRUG LEVL MONITORING] Onset: 3 Episodic Other aftercare (1 source) intermediate (current) use of anticoagulants; Translations: [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 CURRNT USE ANTICOAGULANTS] Onset: 3 Episodic Other connective tissue disease (1 source) Presence of artificial hip joint, bilateral; Translations: [PRESENCE ARTIFICIAL HIP JOINT BILAT] Onset: 3 Chronic Other connective tissue disease (4 sources) Pain in toe; Translations: [Pain in right toe(s)] 10-19-2024 Episodic Other nutritional; endocrine; and metabolic disorders (1 source) Morbid (severe) obesity due to excess calories; Translations: [MORBID SEVERE OBES D/T EXCESS LORENA] Onset: 3 Chronic Other nutritional; endocrine; and metabolic disorders (1 source) Body mass index (BMI) 34.0-34.9, adult; Translations: [BODY MASS INDEX BMI 34.0-34.9 ADULT] Onset: 3 Chronic Other skin disorders (2 sources) Dystrophia unguium; Translations: [Nail dystrophy] 10-19-2024 Episodic [...] 2022 Episodic Other aftercare (1 source) Other jail (current) drug therapy; Translations: [OTH DETENTION CURRENT DRUG THERAPY] Onset: 2022 Episodic Other aftercare (1 source) intermediate (current) use of aspirin; Translations: [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 CURRENT USE OF ASPIRIN] Onset: 2022 Episodic [...] Test Name Value Interpretation Reference Range Facility Orders Onlyon 03-30-2025 Orders Only [id number] Calin Boyd 1935 M Date Provider Department Center 03/30/2025 NICOLE BLAINE Sanchez [facility] No family history on file [facility] Aerobic Cultureon 11-30-2024 Aerobic Culture ORGANISM: Klebsiella aerogenes (O:KLEAER) Quantity of Growth Light Growth Gram Stain Result 3+ White Blood Cells 2+ Gram Positive Cocci in Pairs 1+ Gram Positive Cocci 1+ Yeast Like Elements 1+ Epithelial Cells Aerobic CINDY Charge ([id number]) SUSCEPTIBILITY ORGANISM: O:KLEAER ANTIBIOTIC INTERPRETATION CINDY Amikacin S <16 Aztreonam IB <4 Cefepime S <2 Ceftazidime IB <1 Ceftazidime/Avibactam S <4 Ceftriaxone IB <1 Cefuroxime IB <4 Ciprofloxacin S <0.25 Ertapenem S <0.5 Gentamicin S <2 Levofloxacin S <0.5 Meropenem S <1 Meropenem/Vaborbactam S <2 Piperacillin/Tazobactam IB <8 Tetracycline S <4 Tigecycline S <2 Tobramycin S <2 Trimethoprim/Sulfamethoxaz ole S <0.5 S = SUSCEPTIBLE I = INTERMEDIATE R = RESISTANT BLANK = DATA NOT AVAILABLE, OR DRUG NOT ADVISABLE OR TESTED R* = RESISTANCE DUE TO EXTENDED SPECTRUM BETA-LACTAMASES ESBL = EXTENDED SPECTRUM BETA-LACTAMASE TFG = THYMIDINE-DEPENDENT STRAIN LD = BETA-LACTAMASE POSITIVE IB = INDUCIBLE BETA-LACTAMASE. APPEARS IN PLACE OF 'S' WITH SPECIES KNOWN TO POSSESS INDUCIBLE BETA-LACTAMASES. POTENTIALLY THEY MAY BECOME RESISTANT TO ALL B-LACTAM DRUGS. PERFORMED BY: [address] [id number] PATHOLOGIST BID CLERK TO VALDOVINOS M.D. Normal [facility] Comment on above: Performed By: #### A ERC, GS #### [place] [id number] [facility] Gram Stainon 11-30-2024 Microscopic observation Gram stain Nom (Unsp spec) Gram Stain Result 3+ White Blood Cells 2+ Gram Positive Cocci in Pairs 1+ Gram Positive Cocci 1+ Yeast Like Elements 1+ Epithelial Cells PERFORMED BY: [place] [id number] PATHOLOGIST BID CLERK TO VALDOVINOS M.D. Normal [facility] Comment on above: Performed By: #### A ERC, GS #### [place] [id number] [facility] Gram stain microscopyOrdered By: Jose Amado on 11-30-2024 Microscopic observation Gram stain Nom (Unsp spec) Gram stain microscopy [facility] 36on 07-05-2024 36 Regarding lab result s from 06/21/2024: MD Blanca Cannon MA Blood testing was ok, follow up in 1 year. Patient informed. [facility] Office Visiton 06-20-2024 Follow-up visit [id number] Calin Boyd 1935 M Date Provider Department Center 06/20/2024 PARISA MORALES [facility] No family history on file Level of Service:43978 CO OFFICE/OUTPATIENT ESTABLISHED MOD MDM 30 MIN Normal [facility] 36on 05-05-2024 [address] Knott s/p device check on 04/19/2024. [facility] CBC AUTO DIFFon 12-18-2022 BASO # 0.1 103/ul Normal 0.0-0.1 [facility] Comment on above: Performed By: #### C BC #### [facility] [address] [address] [address] Dana Angulo Basophils/100 WBC (Bld) 0.8 % Normal 0.2-2.0 [facility] Comment on above: Performed By: #### C BC #### [facility] [address] [place] [address] Dr. Dana Angulo EO # 0.1 103/ul Normal 0.0-0.7 [facility] Comment on above: Performed By: #### C BC #### [facility] [address] [address] [address] Dana Angulo Eosinophils/100 WBC (Bld) 0.9 % Normal 0.9-7.0 [facility] Comment on above: Performed By: #### C BC #### [facility] [address] [place] [address] Dr. Dana Angulo Erythrocyte distribution width (RBC) [Ratio] 13.2 % Normal 11.0-15.0 [facility] Comment on above: Performed By: #### C BC #### [facility] [address] [place] [address] Dr. Dana Angulo Hematocrit (Bld) [Volume fraction] 37.1 % Critically low 42.0-54.0 [facility] Comment on above: Performed By: #### C BC #### [facility] [address] [place] [address] Dr. Dana Angulo Hemoglobin (Bld) [Mass/Vol] 12.1 g/dL Critically low 14.0-18.0 [facility] Comment on above: Performed By: #### C BC #### [facility] [address] [place] [address] Dr. Dana Angulo IG # 0.03 10e3/ul Normal 0.00-0.03 [facility] Comment on above: Performed By: #### C BC #### [facility] [address] [place] [address] Dr. Dana Angulo IG % 0.4 % Normal 0.0-0.5 [facility] Comment on above: Performed By: #### C BC #### [facility] [address] [place] [address] Dr. Dana Angulo LYMPH # 1.4 103/ul Normal 1.2-3.8 [facility] Comment on above: Performed By: #### C BC #### [facility] [address] [place] [address] Dr. Dana Angulo Lymphocytes/100 WBC (Bld) 19.0 % Critically low 20.5-60.0 [facility] Comment on above: Performed By: #### C BC #### [facility] [address] [place] [address] Dr. Dana Angulo MANUAL DIFF REQ NO Normal [facility] Comment on above: Performed By: #### C BC #### [facility] [address] [place] [address] Dr. Dana Angulo MCH (RBC) [Entitic mass] 30.6 pg Normal 25.9-34.0 [facility] Comment on above: Performed By: #### C BC #### [facility] [address] [place] [address] Dr. Dana Angulo MCHC (RBC) [Mass/Vol] 32.6 g/dL Normal 29.9-35.2 [facility] Comment on above: Performed By: #### C BC #### [facility] [address] [place] [address] Dr. Dana Angulo MCV (RBC) [Entitic vol] 93.7 fL Normal 80.0-94.0 [facility] Comment on above: Performed By: #### C BC #### [facility] [address] [place] [address] Dr. Dana Angulo MONO # 0.5 103/ul Normal 0.3-0.8 [facility] Comment on above: Performed By: #### C BC #### [facility] [address] [place] [address] Dr. Dana Angulo Monocytes/100 WBC (Bld) 7.2 % Normal 1.7-12.0 [facility] Comment on above: Performed By: #### C BC #### [facility] [address] [place] [address] Dr. Dana Angulo NEUT # 5.4 103/ul Normal 1.4-6.5 [facility] Comment on above: Performed By: #### C BC #### [facility] [address] [place] [address] Dr. Dana Angulo Neutrophils/100 WBC (Bld) 71.7 % Normal 43.0-75.0 [facility] Comment on above: Performed By: #### C BC #### [facility] [address] [place] [address] Dr. Dana Angulo Platelet mean volume (Bld) [Entitic vol] 9.6 fL Normal 9.5-13.5 [facility] Comment on above: Performed By: #### C BC #### [facility] [address] [place] [address] Dr. Dana Angulo PLT 165 103/ul Normal 150-450 [facility] Comment on above: Performed By: #### C BC #### [facility] [address] [place] [address] Dr. Dana Angulo RBC 3.96 106/ul Critically low 4.70-6.10 [facility] Comment on above: Performed By: #### C BC #### [facility] [address] [place] [address] Dr. Dana Angulo WBC 7.5 103/ul Normal 4.0-11.0 [facility] Comment on above: Performed By: #### C BC #### [facility] [address] [place] [address] Dr. Dana Angulo ER URINE PROFILEon 3 Bilirubin Ql (U) Negative Normal NEGATIVE [facility] Comment on above: Performed By: #### ANGELINA FRIENDRO #### [facility] [address] [place] [address] Dr. Dana Angulo Clarity (U) CLEAR Normal CLEAR [facility] Comment on above: Performed By: #### ANGELINA FRIENDRO #### [facility] [address] [place] [address] Dr. Dana Angulo Color (U) LT. YELLOW Normal YELLOW [facility] Comment on above: Performed By: #### E RUR, UMICRO #### [facility] [address] [place] [address] Dr. Dana GÓMEZ A micrscopic examina tion will be performed if indicated. Normal [facility] Comment on above: Performed By: #### Marino KENYON UMICRO #### [facility] [address] [place] [address] Dr. Dana Angulo Glucose Ql (U) Negative Normal NEGATIVE [facility] Comment on above: Performed By: #### Marino KENYON UMICRO #### [facility] [address] [place] [address] Dr. Dana Angulo Hemoglobin Ql (U) Negative Normal NEGATIVE [facility] Comment on above: Performed By: #### Marino KENYON UMICRO #### [facility] [address] [place] [address] Dr. Dana Angulo Ketones Ql (U) Negative Normal NEGATIVE [facility] Comment on above: Performed By: #### Marino KENYON UMICRO #### [facility] [address] [place] [address] Dr. Dana Angulo LEUKOCYTES TRACE Abnormal NEGATIVE [facility] Comment on above: Performed By: #### ANGELINA FRIENDRO #### [facility] [address] [place] [address] Dr. Dana Angulo Nitrite Ql (U) Negative Normal NEGATIVE [facility] Comment on above: Performed By: #### GIANCARLO FRIENDICRO #### [facility] [address] [place] [address] Dr. Dana Angulo pH (U) 6.0 [pH] Normal 5-9 [facility] Comment on above: Performed By: #### GIANCARLO FRIENDICRO #### [facility] [address] [place] [address] Dr. Dana Angulo SPEC GRAVITY 1.015 Normal 1.005-<=1.0 25 [facility] Comment on above: Performed By: #### ANGELINA FRIENDRO #### [facility] [address] [place] [address] Dr. Dana Angulo UA PROTEIN Negative Normal NEGATIVE/ TRACE [facility] Comment on above: Performed By: #### ANGELINA FRIENDRO #### [facility] [address] [place] [address] Dr. Dana Angulo UR MICRO IND INDICATED Normal [facility] Comment on above: Performed By: #### ANGELINA FRIENDRO #### [facility] [address] [place] [address] Dr. Dana Angulo Urobilinogen Qn (U) 0.2 {Delia'U}/dL Normal 0.2 - 1. 0 [facility] Comment on above: Performed By: #### ANGELINA FRIENDRO #### [facility] [address] [place] [address] Dr. Dana Angulo LACTATE/LACTIC ACIDon 2022 Lactate [Moles/Vol] 1.1 mmol/L Normal 0.4-1.9 [facility] Comment on above: Performed By: #### L ACT #### [facility] [address] [place] [address] Dr. Dana Angulo LIPASEon 12-18-2022 Lipase [Catalytic activity/Vol] 68.0 U/L Critically low 73.0-393.0 [facility] Comment on above: Performed By: #### C BC #### [facility] [address] [place] [address] Dr. Dana Angulo OCC BLD IMMUNO SCREENon 11-30 OCCULT BLOOD Negative Normal NEGATIVE [facility] Comment on above: Performed By: #### H STROPN #### [facility] [address] [place] [address] Dr. Dana Angulo PROF 14(COMP METB)on 023 Albumin [Mass/Vol] 3.8 g/dL Normal 3.4-5.0 [facility] Comment on above: Performed By: #### C BC #### [facility] [address] [place] [address] Dr. Dana Angulo Albumin/Globulin [Mass ratio] 1.3 {ratio} Normal [facility] Comment on above: Performed By: #### C BC #### [facility] [address] [address] [address] Dana Angulo ALP [Catalytic activity/Vol] 70 U/L Normal 46-116 [facility] Comment on above: Performed By: #### C BC #### [facility] [address] [place] [address] Dr. Dana Angulo ALT [Catalytic activity/Vol] 22 U/L Normal 16-63 [facility] Comment on above: Performed By: #### C BC #### [facility] [address] [place] [address] Dr. Dana Angulo Anion gap [Moles/Vol] 13.5 mmol/L Normal [facility] Comment on above: Performed By: #### C BC #### [facility] [address] [place] [address] Dr. Dana Angulo AST [Catalytic activity/Vol] 25 U/L Normal 15-37 [facility] Comment on above: Performed By: #### C BC #### [facility] [address] [place] [address] Dr. Dana Angulo Bilirubin [Mass/Vol] 1.0 mg/dL Normal 0.2-1.0 [facility] Comment on above: Performed By: #### C BC #### [facility] [address] [place] [address] Dr. Dana Angulo Calcium [Mass/Vol] 9.7 mg/dL Normal 8.5-10.1 [facility] Comment on above: Performed By: #### C BC #### [facility] [address] [place] [address] Dr. Dana Angulo Chloride [Moles/Vol] 103 mmol/L Normal 98-107 [facility] Comment on above: Performed By: #### C BC #### [facility] [address] [place] [address] Dr. Dana Angulo CO2 [Moles/Vol] 25.1 mmol/L Normal 21.0-32.0 [facility] Comment on above: Performed By: #### C BC #### [facility] [address] [address] [address] Dana Angulo Creatinine [Mass/Vol] 1.07 mg/dL Normal 0.70-1.30 [facility] Comment on above: Performed By: #### C BC #### [facility] [address] [address] [address] Dana Angulo EGFR-AF [place] >60 Normal >=60 [facility] Comment on above: Performed By: #### C BC #### [facility] [address] [address] [address] Dana Angulo EGFR-NON AF [place] >60 Normal >=60 [facility] Comment on above: Performed By: #### C BC #### [facility] [address] [place] [address] Dr. Dana Angulo Globulin (S) [Mass/Vol] 3.0 g/dL Normal [facility] Comment on above: Performed By: #### C BC #### [facility] [address] [place] [address] Dr. Dana Angulo Glucose [Mass/Vol] 115 mg/dL Critically high 74-106 [facility] Comment on above: Performed By: #### C BC #### [facility] [address] [place] [address] Dr. Dana Angulo Potassium [Moles/Vol] 3.6 mmol/L Normal 3.5-5.1 [facility] Comment on above: Performed By: #### C BC #### [facility] [address] [place] [address] Dr. Dana Angulo Protein [Mass/Vol] 6.8 g/dL Normal 6.4-8.2 [facility] Comment on above: Performed By: #### C BC #### [facility] [address] [place] [address] Dr. Dana Angulo Sodium [Moles/Vol] 138 mmol/L Normal 136-145 [facility] Comment on above: Performed By: #### C BC #### [facility] [address] [place] [address] Dr. Dana Angulo Urea nitrogen [Mass/Vol] 39.0 mg/dL Critically high 7.0-18.0 [facility] Comment on above: Performed By: #### C BC #### [facility] [address] [place] [address] Dr. Dana Angulo Urea nitrogen/Creatinine [Mass ratio] 36.4 mg/mg Normal [facility] Comment on above: Performed By: #### C BC #### [facility] [address] [place] [address] Dr. Dana Angulo PROTIMEon 12-18-2022 INR Coag (PPP) [Relative time] 2.15 {INR} Normal [facility] Comment on above: Performed By: #### P T, PTT #### [facility] [address] [place] [address] Dr. Dana Angulo INR GUIDELINES SEE BELOW Normal [facility] Comment on above: Result Comment: BETTINA RED INR: 2.0 - 3.0 CONDITIONS NOT LISTED BELOW 2.5 - 3.5 FOR PROSTHETIC HEART VALVE REPLACEMENT 2.5 - 3.5 RECURRENT THROMBOSIS Performed By: #### P T, PTT #### [facility] [address] [place] [address] Dr. Dana Angulo PT Coag (PPP) [Time] 21.8 s Critically high 9.0-11.6 [facility] Comment on above: Performed By: #### P T, PTT #### [facility] [address] [place] [address] Dr. Dana Angulo PTTon 12-18-2022 aPTT Coag (Bld) [Time] 35.3 s Normal 22.3-36.2 [facility] Comment on above: Performed By: #### P T, PTT #### [facility] [address] [place] [address] Dr. Dana Angulo TROPONIN, HIGH SENSITIVITYon 12-18-2022 HSTROP 37.2 pg/mL Normal 4.0-76.1 [facility] Comment on above: Result Comment: CUT- OFF POINTS HAVE BEEN ESTABLISHED BASED ON THE FOURTH UNIVERSAL DEFINITIONS OF MYOCARDIAL INFARCTION. THE UPPER REFERENCE LIMIT (URL) OF TROPONIN, DEFINED THE 99TH PERCENTILE OF cTnI DISTRIBUTION IN A REFERENCE POPULATION, HAS BEEN CONFIRMED THE DECISION THRESHOLD FOR OK DIAGNOSIS. Performed By: #### H STROPN #### [facility] [address] [place] [address] Dr. Dana Angulo HSTROP 39.8 pg/mL Normal 4.0-76.1 [facility] Comment on above: Result Comment: CUT- OFF POINTS HAVE BEEN ESTABLISHED BASED ON THE FOURTH UNIVERSAL DEFINITIONS OF MYOCARDIAL INFARCTION. THE UPPER REFERENCE LIMIT (URL) OF TROPONIN, DEFINED THE 99TH PERCENTILE OF cTnI DISTRIBUTION IN A REFERENCE POPULATION, HAS BEEN CONFIRMED THE DECISION THRESHOLD FOR OK DIAGNOSIS. Performed By: #### H STROPN #### [facility] [address] [place] [address] Dr. Dana Angulo URINE MICROSCOPIC ONLYon BACTERIA NONE SEEN Normal NONE SEEN [facility] Comment on above: Performed By: #### E RUR, UMICRO #### [facility] [address] [place] [address] Dr. Dana Angulo Bacteria identified Cx Nom (U) NOT INDICATED Normal [facility] Comment on above: Performed By: #### E RUR, UMICRO #### [facility] [address] [place] [address] Dr. Dana Angulo CAST NONE SEEN Normal NONE SEEN [facility] Comment on above: Performed By: #### E RUR, UMICRO #### [facility] [address] [place] [address] Dr. Dana Angulo Crystals LM Nom (Urine sed) NONE SEEN Normal NONE SEEN [facility] Comment on above: Performed By: #### E RUR, UMICRO #### [facility] [address] [place] [address] Dr. Dana Angulo Epithelial cells LM Ql (Urine sed) FEW Abnormal NONE SEEN /RARE [facility] Comment on above: Performed By: #### E RUR, UMICRO #### [facility] [address] [place] [address] Dr. Dana Angulo MUCOUS NONE SEEN Normal NONE SEEN [facility] Comment on above: Performed By: #### E RUR, UMICRO #### [facility] [address] [address] [address] Dana Angulo RBC NONE SEEN Abnormal 0-2 [facility] Comment on above: Performed By: #### HUMBERTO FRIEND #### [facility] [address] [address] [address] Dana Angulo WBC 2-5 Abnormal NONE SEEN [facility] Comment on above: Performed By: #### HUMBERTO FRIEND #### [facility] [address] [address] [address] Dana Angulo US SINGLE QUAD RT [...] DOMINIQUE JAUREGUI Date: 2022-12-18 13:05 Normal [facility] BNPon 11-11-2022 Natriuretic peptide B (Bld) [Mass/Vol] 2364.0 pg/mL Critically high <=1,800.0 [facility] Comment on above: Performed By: #### H STROPN #### [facility] [address] [address] [address] Dana Angulo BUNon 11-11-2022 Urea nitrogen [Mass/Vol] 18.0 mg/dL Normal 7.0-18.0 [facility] Comment on above: Performed By: #### H STROPN #### [facility] [address] [place] [address] Dr. Dana Angulo CBC AUTO DIFFon 11-11-2022 BASO # 0.0 103/ul Normal 0.0-0.1 [facility] Comment on above: Performed By: #### C BC #### [facility] [address] [place] [address] Dr. Dana Angulo Basophils/100 WBC (Bld) 0.6 % Normal 0.2-2.0 [facility] Comment on above: Performed By: #### C BC #### [facility] [address] [place] [address] Dr. Dana Angulo EO # 0.1 103/ul Normal 0.0-0.7 [facility] Comment on above: Performed By: #### C BC #### [facility] [address] [place] [address] Dr. Dana Angulo Eosinophils/100 WBC (Bld) 1.3 % Normal 0.9-7.0 [facility] Comment on above: Performed By: #### C BC #### [facility] [address] [place] [address] Dr. Dana Angulo Erythrocyte distribution width (RBC) [Ratio] 13.9 % Normal 11.0-15.0 [facility] Comment on above: Performed By: #### C BC #### [facility] [address] [place] [address] Dr. Dana Angulo Hematocrit (Bld) [Volume fraction] 36.2 % Critically low 42.0-54.0 [facility] Comment on above: Performed By: #### C BC #### [facility] [address] [place] [address] Dr. Dana Angulo Hemoglobin (Bld) [Mass/Vol] 11.4 g/dL Critically low 14.0-18.0 [facility] Comment on above: Performed By: #### C BC #### [facility] [address] [place] [address] Dr. Dana Angulo IG # 0.02 10e3/ul Normal 0.00-0.03 [facility] Comment on above: Performed By: #### C BC #### [facility] [address] [place] [address] Dr. Dana Angulo IG % 0.3 % Normal 0.0-0.5 [facility] Comment on above: Performed By: #### C BC #### [facility] [address] [place] [address] Dr. Dana Angulo LYMPH # 1.4 103/ul Normal 1.2-3.8 [facility] Comment on above: Performed By: #### C BC #### [facility] [address] [place] [address] Dr. Dana Angulo Lymphocytes/100 WBC (Bld) 19.8 % Critically low 20.5-60.0 [facility] Comment on above: Performed By: #### C BC #### [facility] [address] [place] [address] Dr. Dana Angulo MANUAL DIFF REQ NO Normal [facility] Comment on above: Performed By: #### C BC #### [facility] [address] [place] [address] Dr. Dana Angulo MCH (RBC) [Entitic mass] 30.9 pg Normal 25.9-34.0 [facility] Comment on above: Performed By: #### C BC #### [facility] [address] [place] [address] Dr. Dana Angulo MCHC (RBC) [Mass/Vol] 31.5 g/dL Normal 29.9-35.2 [facility] Comment on above: Performed By: #### C BC #### [facility] [address] [place] [address] Dr. Dana Angulo MCV (RBC) [Entitic vol] 98.1 fL Critically high 80.0-94.0 [facility] Comment on above: Performed By: #### C BC #### [facility] [address] [place] [address] Dr. Dana Angulo MONO # 0.5 103/ul Normal 0.3-0.8 [facility] Comment on above: Performed By: #### C BC #### [facility] [address] [place] [address] Dr. Dana Angulo Monocytes/100 WBC (Bld) 6.9 % Normal 1.7-12.0 [facility] Comment on above: Performed By: #### C BC #### [facility] [address] [place] [address] Dr. Dana Angulo NEUT # 5.1 103/ul Normal 1.4-6.5 [facility] Comment on above: Performed By: #### C BC #### [facility] [address] [place] [address] Dr. Dana Angulo Neutrophils/100 WBC (Bld) 71.1 % Normal 43.0-75.0 [facility] Comment on above: Performed By: #### C BC #### [facility] [address] [place] [address] Dr. Dana Angulo Platelet mean volume (Bld) [Entitic vol] 9.4 fL Critically low 9.5-13.5 [facility] Comment on above: Performed By: #### C BC #### [facility] [address] [place] [address] Dr. Dana Angulo PLT 164 103/ul Normal 150-450 [facility] Comment on above: Performed By: #### C BC #### [facility] [address] [place] [address] Dr. Dana Angulo RBC 3.69 106/ul Critically low 4.70-6.10 [facility] Comment on above: Performed By: #### C BC #### [facility] [address] [place], [place] [id number] Dr. Dana Angulo WBC 7.1 103/ul Normal 4.0-11.0 [facility] Comment on above: Performed By: #### C BC #### [facility] [address] [place] [address] Dr. Dana Angulo CREATININEon 11-11-2022 Creatinine [Mass/Vol] 1.10 mg/dL Normal 0.70-1.30 [facility] Comment on above: Performed By: #### H STROPN #### [facility] [address] [place] [address] Dr. Dana Angulo EGFR-AF [place] >60 Normal >=60 [facility] Comment on above: Result Comment: Prev iously reported as: >77 On 11/11/2022 10:45 By BL3 Previously reported as: (blank) On 11/11/2022 10:44 By BL3 Performed By: #### H STROPN #### [facility] [address] [place] [address] Dr. Dana Angulo EGFR-NON AF [place] >60 Normal >=60 [facility] Comment on above: Result Comment: Prev iously reported as: >64 On 11/11/2022 10:45 By BL3 Previously reported as: (blank) On 11/11/2022 10:44 By BL3 Performed By: #### H STROPN #### [facility] [address] [place] [address] Dr. Dana Angulo CULTURE URINEon 11-11-2022 CULTURE URINE Culture Observations : NO GROWTH. Normal [facility] Comment on above: Performed By: #### C BC #### [facility] [address] [place] [address] Dr. Dana Angulo ELECTROLYTESon 11-11-2022 Anion gap [Moles/Vol] 12.7 mmol/L Normal [facility] Comment on above: Performed By: #### H STROPN #### [facility] [address] [place] [address] Dr. Dana Angulo Chloride [Moles/Vol] 103 mmol/L Normal 98-107 [facility] Comment on above: Performed By: #### H STROPN #### [facility] [address] [place] [address] Dr. Dana Angulo CO2 [Moles/Vol] 29.0 mmol/L Normal 21.0-32.0 [facility] Comment on above: Performed By: #### H STROPN #### [facility] [address] [place] [address] Dr. Dana Angulo Potassium [Moles/Vol] 4.7 mmol/L Normal 3.5-5.1 [facility] Comment on above: Performed By: #### H STROPN #### [facility] [address] [address] [address] Dana Angulo Sodium [Moles/Vol] 140 mmol/L Normal 136-145 [facility] Comment on above: Performed By: #### H STROPN #### [facility] [address] [address] [address] Dana Angulo GLYCOHEMOGLOBIN A1Con 2021 ADA RECOMMENDATION SEE BELOW Normal [facility] Comment on above: Result Comment: ADA RECOMMENDED LIMIT 4.0 - 6.0 ADA THERAPEUTIC TARGET < 7.0 ACTION SUGGESTED > 7.0 Performed By: #### H STROPN #### [facility] [address] [place] [address] Dr. Dana Angulo Glucose [Mass/Vol] 120 mg/dL Normal [facility] Comment on above: Performed By: #### H STROPN #### [facility] [address] [place] [address] Dr. Dana Angulo HbA1c (Bld) [Mass fraction] 5.8 % Normal 4.5-6.2 [facility] Comment on above: Performed By: #### H STROPN #### [facility] [address] [place] [address] Dr. Dana Angulo LIPID PROFILEon 11-11-2022 CHOL-HDL RATIO NORM SEE BELOW Normal [facility] Comment on above: Result Comment: 3.3 - 4.4 LOW RISK 4.4 - 7.1 AVERAGE RISK 7.1 - 11.0 MODERATE RISK >11.0 HIGH RISK Performed By: #### H STROPN #### [facility] [address] [place] [address] Dr. Dana Angulo Cholesterol [Mass/Vol] 91 mg/dL Normal <=200 [facility] Comment on above: Performed By: #### H STROPN #### [facility] [address] [place] [address] Dr. Dana Angulo Cholesterol in HDL [Mass/Vol] 49 mg/dL Normal 40-60 [facility] Comment on above: Performed By: #### H STROPN #### [facility] [address] [address] [address] Dana Angulo Cholesterol in LDL [Mass/Vol] 29.4 mg/dL Normal [facility] Comment on above: Performed By: #### H STROPN #### [facility] [address] [address] [address] Dana Angulo Cholesterol.total/Ch olesterol in HDL [Mass ratio] 1.9 {ratio} Normal [facility] Comment on above: Performed By: #### H STROPN #### [facility] [address] [address] [address] Dana Angulo HDL NORMAL > or = 60 mg/dl - LO W CARDIOVASCULAR RISK <40 mg/dl - HIGH CARDIOVASCULAR RISK Normal [facility] Comment on above: Performed By: #### H STROPN #### [facility] [address] [address] [address] Dana Angulo LDL CALC NORMAL SEE BELOW Normal [facility] Comment on above: Result Comment: <100 mg/dl OPTIMAL 100 - 129 mg/dl NEAR OR ABOVE OPTIMAL 130 - 159 mg/dl BORDERLINE HIGH 160 - 189 mg/dl HIGH >190 mg/dl VERY HIGH Performed By: #### H STROPN #### [facility] [address] [place] [address] Dr. Dana Angulo Triglyceride [Mass/Vol] 63 mg/dL Normal <=150 [facility] Comment on above: Performed By: #### H STROPN #### [facility] [address] [address] [address] Dana Angulo VLDL CALC 12.6 mg/dL Normal [facility] Comment on above: Performed By: #### H STROPN #### [facility] [address] [place] [address] Dr. Dana Angulo LIVER PROFILEon 11-11-2022 Albumin [Mass/Vol] 3.7 g/dL Normal 3.4-5.0 [facility] Comment on above: Performed By: #### H STROPN #### [facility] [address] [address] [address] Dana Angulo Albumin/Globulin [Mass ratio] 1.2 {ratio} Normal [facility] Comment on above: Performed By: #### H STROPN #### [facility] [address] [address] [address] Dana Angulo ALP [Catalytic activity/Vol] 68 U/L Normal 46-116 [facility] Comment on above: Performed By: #### H STROPN #### [facility] [address] [address] [address] Dana Angulo ALT [Catalytic activity/Vol] 20 U/L Normal 16-63 [facility] Comment on above: Performed By: #### H STROPN #### [facility] [address] [place] [address] Dr. Dana Angulo AST [Catalytic activity/Vol] 21 U/L Normal 15-37 [facility] Comment on above: Performed By: #### H STROPN #### [facility] [address] [address] [address] Dana Angulo BILI, CONJUGATED 0.3 mg/dL Critically high 0.0-0.2 [facility] Comment on above: Performed By: #### H STROPN #### [facility] [address] [place] [address] Dr. Dana Angulo Bilirubin [Mass/Vol] 0.9 mg/dL Normal 0.2-1.0 [facility] Comment on above: Performed By: #### H STROPN #### [facility] [address] [address] [address] Dana Angulo Globulin (S) [Mass/Vol] 3.1 g/dL Normal [facility] Comment on above: Performed By: #### H STROPN #### [facility] [address] [address] [address] Dana Angulo Protein [Mass/Vol] 6.8 g/dL Normal 6.4-8.2 [facility] Comment on above: Performed By: #### H STROPN #### [facility] [address] [place] [address] Dr. Dana Angulo TSHon 11-11-2022 TSH 3.426 uIU/mL Normal 0.358-3.740 [facility] Comment on above: Performed By: #### H STROPN #### [facility] [address] [place] [address] Dr. Dana Angulo UA (CLEAN/CATCH) COPER HAND/MICRO I F IND.on 11-11-2022 Bilirubin Ql (U) Negative Normal NEGATIVE [facility] Comment on above: Performed By: #### U ACSIND, ICRO #### [facility] [address] [place] [address] Dr. Dana Angulo Clarity (U) CLEAR Normal CLEAR [facility] Comment on above: Performed By: #### U ACSIND, UMICRO #### [facility] [address] [place] [address] Dr. Dana Angulo Color (U) YELLOW Normal YELLOW [facility] Comment on above: Performed By: #### U ACSIND, ICRO #### [facility] [address] [place] [address] Dr. Dana Angulo Glucose Ql (U) Negative Normal NEGATIVE [facility] Comment on above: Performed By: #### U ACSIND, ICRO #### [facility] [address] [place] [address] Dr. Dana Angulo Hemoglobin Ql (U) Negative Normal NEGATIVE [facility] Comment on above: Performed By: #### U ACSIND, ICRO #### [facility] [address] [place] [address] Dr. Dana Angulo Ketones Ql (U) TRACE Abnormal NEGATIVE [facility] Comment on above: Performed By: #### U ACSIND, UMICRO #### [facility] [address] [place] [address] Dr. Dana Angulo LEUKOCYTES SMALL Abnormal NEGATIVE [facility] Comment on above: Performed By: #### U ACSIND, UMICRO #### [facility] [address] [place] [address] Dr. Dana Angulo Nitrite Ql (U) Negative Normal NEGATIVE [facility] Comment on above: Performed By: #### U ACSIND, UMICRO #### [facility] [address] [address] [address] Dana Angulo pH (U) 6.0 [pH] Normal 5-9 [facility] Comment on above: Performed By: #### U ACSIND, UMICRO #### [facility] [address] [address] [address] Dana Angulo SPEC GRAVITY 1.015 Normal 1.005-<=1.0 25 [facility] Comment on above: Performed By: #### U ACSIND, UMICRO #### [facility] [address] [place] [address] Dr. Dana Angulo UA PROTEIN TRACE Normal NEGATIVE/ TRACE [facility] Comment on above: Performed By: #### U ACSIND, UMICRO #### [facility] [address] [place] [address] Dr. Dana Angulo UR MICRO IND INDICATED Normal [facility] Comment on above: Performed By: #### U ACSIND, UMICRO #### [facility] [address] [place] [address] Dr. Dana Angulo Urobilinogen Qn (U) 1.0 {Delia'U}/dL Normal 0.2 - 1. 0 [facility] Comment on above: Performed By: #### U ACSIND, UMICRO #### [facility] [address] [place] [address] Dr. Dana Angulo URINE MICROSCOPIC ONLYon BACTERIA TRACE Abnormal NONE SEEN [facility] Comment on above: Performed By: #### U ACSIND, UMICRO #### [facility] [address] [address] [address] Dana Angulo Bacteria identified Cx Nom (U) INDICATED Normal [facility] Comment on above: Performed By: #### U ACSIND, UMICRO #### [facility] [address] [address] [address] Dana Angulo CAST SEEN Abnormal NONE SEEN [facility] Comment on above: Performed By: #### U ACSIND, UMICRO #### [facility] [address] [address] [address] Dana Angulo Crystals LM Nom (Urine sed) NONE SEEN Normal NONE SEEN [facility] Comment on above: Performed By: #### U ACSIND, UMICRO #### [facility] [address] [address] [address] Dana Angulo Epithelial cells LM Ql (Urine sed) RARE Normal NONE SEEN /RARE [facility] Comment on above: Performed By: #### U ACSIND, UMICRO #### [facility] [address] [address] [address] Dana Angulo MUCOUS NONE SEEN Normal NONE SEEN [facility] Comment on above: Performed By: #### U ACSREGGIE, UMICRO #### [facility] [address] [place] [address] Dr. Dana Angulo RBC 2-5 Abnormal 0-2 [facility] Comment on above: Performed By: #### U ACSREGGIE, UMICRO #### [facility] [address] [place] [address] Dr. Dana Angulo WBC 2-5 Abnormal NONE SEEN [facility] Comment on above: Performed By: #### U ACSREGGIE, UMICRO #### [facility] [address] [place] [address] Dr. Dana Angulo VITAMIN D 25 OHon 11-11-2022 VIT D 25-OH 30.2 ng/mL Normal [facility] Comment on above: Performed By: #### C BC #### [facility] [address] [place] [address] Dr. Dana Angulo VIT D RANGES SEE BELOW Normal [facility] Comment on above: Result Comment: <20 ng/mL Vit D deficient 20 - <30 ng/mL Vit D insufficient 30 - 100 ng/mL Vit D sufficient >100 ng/mL Potential Toxicity Performed By: #### C BC #### [facility] [address] [place] [address] Dr. Dana Angulo Cardiovascular Lab Reporton 06-25-2019 Cardiovascular Lab Report [facility] Patient Name: [facility] Alvin Sanchez MR #: [id number] Department of Physician: Geetha Blankenship M.D. Division of Service Date: 06/24/2019 Cardiology Birthdate: 1935 Adult Cardiovascular Room #: [facility] [address] [place] [address] Cardiovascular Laboratory Report FINAL IMPRESSION: 1. Normal right and left ventricular filling pressures. 2. Preserved cardiac output and cardiac index. 3. Mild pulmonary artery hypertension. 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 He has been experiencing shortness of breath [...] modified Seldinger technique and ultrasound guidance, a 5-Indonesian micropuncture was placed in right internal jugular vein. This was upsized to a regular 6-Indonesian pinnacle sheath and a 6-Indonesian Jackson was used for right heart catheterization. [...] Rashard/Yue Lucas M.D. Date Trans: 06/25/2019 05:12 A/mmo [id number] cc: Rio Lal D.O. [facility] [place] [address] [place] [facility] Neurosurgery Office/Clinic Kodak hughes 04-13-2018 Neurosurgery Office/Clinic Note Chief Complaint BACK [...] Arsalan dexter MD 04/13/18 15:39 EDT Normal [facility] CT Spine Lumbar w/ Contrasto n [...] Further degenerative changes are detailed above.Radiation Dose Estimate:CTDI(mGy):0.57188 0 / / / kVp:120.999208 / mAs:0.954364 / / / DLP(mGy-cm):5.114263Zcia Part:CTDI(mGy):28.689925 / / / kVp:120.642298 / mAs:294.609770 / / / DLP(mGy-cm):632.677515Jyju Part: Final Dictated by: Naldo Aguilar MD MDictated DT/TM: 04.06.2018 11:34 amSigned by: Naldo Aguilar MD MSigned (Electronic Signature): 04.06.2018 3:49 pmTranscribed DT/TM: 04.06.2018 1:29 pm(If Report Is Signed, Electronically Signed in Other Vendor System) Normal [facility] Inpatient Clinical Summaryon 04-06-2018 [place] [address] [place], [place] [address]Clinical SummaryPerson InformationName: Alvin Boyd Age: 82 Years : 1935Sex: Male [facility]: PCP: [id number]:White Ethnicity:Not or Language:EnglishMRN: [id number] Visit Id: Reason:stenosis, bilateral leg pain Speciality: Acuity:Enc Type: Outpatient in a Bed Med Service: Radiology-Diagnostic ImagingArrival:04/06/2018 08:16:35 Discharge: Dispo Type:Address:[address] [place], [place] [address]Diagnosis:Discharged To:Home Treatments:Devices/Equipme nt:Professional Skilled Services:Special Services and [...] Assoc 04/14/2018 14:30:00 04/14/2018 15:00:00 Confirmed Normal [facility] PTon 04-06-2018 INR Coag RelTime (PPP) 1.1 {INR} Normal <=3.5 [facility] Comment on above: Result Comment: INR has no normal range. INR Therapeutic range is:2.0-3.0 (AF, CVA, TIAs, DVT prophylaxis, acute DVT)2.5-3.5 ([facility] heart valves, recurrent thrombosis/emboli) Performed By: #### P TINR ####[address] [address] Prothrombin time (PT) Coag time (PPP) 11.3 s Normal 9.1-11.9 [facility] Comment on above: Performed By: #### P TINR ####[address] [address] PTTon 04-06-2018 aPTT 24.0 s Normal 21.0-28.8 [facility] Comment on above: Performed By: #### P TT ####[address] [address] Platelet Counton 04-06-2018 Platelets 135 x10*3/mcL Low 150-350 [facility] Comment on above: Performed By: #### P LTS ####[id number] [place] [address] XR Myelography Lumbosacral S pineon 04-06-2018 XR [...] Electronically Signed in Other Vendor System) Normal [facility] XR Spine Lumbosacral 2 or 3 [...] Electronically Signed in Other Vendor System) Normal [facility] Neurosurgery Office/Clinic N saul 03-29-2018 Neurosurgery Office/Clinic Note 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 Upon completion [...] moderate canal stenosisElectronically signed by F ox JOE Lexi Coffmany 03/29/18 12:41 EDT Normal [facility] Pain Management Office/Clini c Noteon 03-16-2018 [...] Injections: 11-09-17 Date Surgery: n/a Frequency PT: [id number] Effective PT: not much help Effective Injections: [...] No qualifying data available.Electronically signed by A Kendra infante CNP 03/16/18 13:37 EDT Normal [facility] Pain Management Office/Clini c Noteon 02-19-2018 [...] Injections: 11-09-17 Date Surgery: n/a Frequency PT: [id number] Effective PT: not much help Effective Injections: [...] data available.Electronically signed by Kendra Reyes CNP 02/19/18 12:56 EDT Normal [facility] History and Physicalon 01-13 History and [...] data available.Electronically signed by Rosalee Guzman MD 01/13/18 15:09 EST Normal [facility] Pain Management Procedure No glenn 01-13-2018 [...] Rosalee Guzman MD 01/13/18 15:09 EST Normal [facility] Ambulatory Patient Education on 01-06-2018 Ambulatory Patient Education Patient Education MaterialsName: Alvin Boyd Current Date: 01/06/2018 15:32:58 [place] 1935 [facility]: [id number] following sheet(s) are the Patient Education Leaflets [...] the next day. You must have a trackless trolley driver that will wait in the Pain [...] procedure: Please arrive at: Please check in at:Packing House Supervisor Desk in the Pain Management [id number], 3rd floor [facility] [place]ception Desk inside the Emergency Room at [address]*Due to the sedation given for the procedure, you will not be permitted to drive until the following day. For this reason, you will need to bring a trackless trolley driver to stay with you and drive [...] Hibiclens (a medicated soap) prior to your surgery.*Bonsall teeth, rinse with water, but do not swallow.*Please wear comfortable clothing, without metal zippers or snaps. Do not wear contact lenses. Do wear your hearing aid. Please leave all jewelry and valuables at home; you may wear your wedding ring.*Please note that due to limited space, your family member/trackless trolley driver will need to wait in the waiting area while you are in the procedure area. Absolutely no children should attend an appointment for an injection.*All prescription refills must be requested in advance. No prescription refills requested on the day of a procedure will be available until at least 3 business days later.*If your procedure is done in [place], you will be receiving a statement from [facility] for the professional (physician's) billing fees and for the technical (hospital's) fees and a separate statement for the anesthesia provider. If your procedure is done in [place], you will be receiving a statement from [facility] for professional (physician's) billing fees, technical [...] concerns, please contact the appropriate office:[facility] Pain Management ([place] office) [phone] [facility] ([place] office) [phone] follow up appointment is scheduled for:AT:[facility] Pain Management [address] [facility], 3rd floor [facility], [facility] Pain Management [address] [facility], [address], [address], 2nd floor clinic, [address]?WHAT TO EXPECT AFTER THE PROCEDURE:Please note [...] increase pain. (for example, bending, twisting, walking, facility maintenance manager).Try to avoid pain medication or sleeping during [...] the office immediately if noted.Contact stimulator customer engagement representative with questions regarding stimulator use.(see rep [...] call office immediately if noted.Contact stimulator customer engagement representative with questions regarding stimulator use.(see rep [...] and call immediately if noted.Contact stimulator customer engagement representative with questions regarding stimulator use.(see rep card) Normal [facility] Pain Management Office/Clini c Noteon 01-06-2018 [...] PT: 01/16 Date Injections: 11-09-17 Frequency PT: [id number] Effective PT: not much help Effective Injections: [...] qualifying data available.Electronically signed by Rashard infante CNPKendra 01/06/18 15:15 EST Normal [facility] Pain Management Office/Clini c Noteon 11-09-2017 [...] available.Electronically signed by B Rosalee smallwood MD 11/09/17 09:27 EST Normal [facility] Procedure Noteon 11-09-2017 Procedure Note PROCEDURE: [...] up as per treatment plan.Electronically signed by Esteban Guzman MDagiotis 11/09/17 09:36 EST Normal [facility] Ambulatory Patient Education on 10-14-2017 Ambulatory [...] procedure: Please arrive at: Please check in at:Packing House Supervisor Desk in the Pain Management [id number] [place] [address], 3rd floor [facility] inside the Emergency Room at [address]*Due to the sedation given for the procedure, you will not be permitted to drive until the following day. For this reason, you will need to bring a trackless trolley driver to stay with you and drive [...] Hibiclens (a medicated soap) prior to your surgery.*Bonsall teeth, rinse with water, but do not swallow.*Please wear comfortable clothing, without metal zippers or snaps. Do not wear contact lenses. Do wear your hearing aid. Please leave all jewelry and valuables at home; you may wear your wedding ring.*Please note that due to limited space, your family member/trackless trolley driver will need to wait in the waiting area while you are in the procedure area. Absolutely no children should attend an appointment for an injection.*All prescription refills must be requested in advance. No prescription refills requested on the day of a procedure will be available until at least 3 business days later.*If your procedure is done in [place], you will be receiving a statement from [facility] for the professional (physician's) billing fees and for the technical (hospital's) fees and a separate statement for the anesthesia provider. If your procedure is done in [place], you will be receiving a statement from [facility] for professional (physician's) billing fees, [...] concerns, please contact the appropriate office:[facility] Pain Management ([place] office) [phone] [facility] ([place] office) [phone] follow up appointment is scheduled for:AT:[facility] [address] [facility], 3rd floor [facility], [place] [facility] [address] [facility], [address], [facility] [address], 2nd floor clinic, [facility] [address] [facility]?WHAT TO EXPECT AFTER THE PROCEDURE:Please note [...] increase pain. (for example, bending, twisting, walking, facility maintenance manager).Try to avoid pain medication or sleeping during [...] the office immediately if noted.Contact stimulator customer engagement representative with questions regarding stimulator use.(see rep [...] call office immediately if noted.Contact stimulator customer engagement representative with questions regarding stimulator use.(see rep [...] and call immediately if noted.Contact stimulator customer engagement representative with questions regarding stimulator use.(see rep card)Nerve Root InjectionThe nerve root injection is a procedure where a local anesthetic and steroid solution are administered near the nerve as it exits the spinal canal. This is done under fluoroscopy (watching under live x-ray) to deliver the drug to the precise location.Am I a candidate for a nerve root injection?At [facility], the provider examining you will [...] procedure. You are required to have a trackless trolley driver remain in the facility before and [...] home the morning of the procedure. Normal [facility] Pain Management Office/Clini c Noteon 10-14-2017 [...] Chiropractor: 11/2016 Date PT: 01/16 Frequency PT: [id number] Effective PT: not much help Comments TENS: [...] No qualifying data available.Electronically signed by A Kendra infante CNP 10/14/17 11:44 EST Normal [facility] History and Physicalon 09-09 History and [...] data available.Electronically signed by Rosalee Guzman MD 09/09/17 11:17 EDT Normal [facility] Comment on above: Order Comment: This [...] data available.Electronically signed by Rosalee Guzman MD 09/09/17 11:20 EDT Normal [facility] Procedure Noteon 09-09-2017 Procedure Note PROCEDURE: [...] treatment plan.Electronically signed by Betsey smallwood MD, Rosalee 09/09/17 11:21 EDT Normal [facility] History and Physicalon 08-26 History and [...] data available.Electronically signed by B cl CAMACHO, Rosalee 08/26/17 14:38 EDT Normal [facility] History and Physical History of Present [...] Rosalee smallwood MD 08/26/17 15:42 EDT Normal [facility] Procedure Noteon 08-26-2017 Procedure Note PROCEDURE: [...] Rosalee Guzman MD 08/26/17 15:42 EDT Normal [facility] Ambulatory Patient Education on 07-29-2017 Ambulatory Patient Education Patient Education MaterialsName: Alvin Boyd Current Date: 07/29/2017 14:05:41 [place]: 1935 [facility]: [id number] following sheet(s) are the Patient Education Leaflets for Alvin Boyd Name:You are scheduled for a:*Please allow up to 2 hours for your appointment. Late arrivals may result in delay or postponement of procedure.Date/Time of procedure: Please arrive at: Date/Time of procedure: Please arrive at: Please check in at:Packing House Supervisor Desk in the Pain Management [id number] [place] [address], 3rd floor [facility] inside the Emergency Room at [address]*Due to the sedation given for the procedure, you will not be permitted to drive until the following day. For this reason, you will need to bring a trackless trolley driver to stay with you and drive [...] Hibiclens (a medicated soap) prior to your surgery.*Bonsall teeth, rinse with water, but do not swallow.*Please wear comfortable clothing, without metal zippers or snaps. Do not wear contact lenses. Do wear your hearing aid. Please leave all jewelry and valuables at home; you may wear your wedding ring.*Please note that due to limited space, your family member/trackless trolley driver will need to wait in the waiting area while you are in the procedure area. Absolutely no children should attend an appointment for an injection.*All prescription refills must be requested in advance. No prescription refills requested on the day of a procedure will be available until at least 3 business days later.*If your procedure is done in [place], you will be receiving a statement from [facility] for the professional (physician's) billing fees and for the technical (hospital's) fees and a separate statement for the anesthesia provider. If your procedure is done in [place], you will be receiving a statement from [facility] for professional (physician's) billing fees, [...] concerns, please contact the appropriate office:[facility] Pain Management ([place] office) [phone] [facility] ([place] office) [phone] follow up appointment is scheduled for:AT:[facility] Pain Management [address] [facility], 3rd floor [facility], [facility] Pain Management [address] [facility], [address], [facility] [address] [facility], 2nd floor clinic, [facility] [address] [place] [address]?WHAT TO EXPECT AFTER THE PROCEDURE:Please note the [...] increase pain. (for example, bending, twisting, walking, facility maintenance manager).Try to avoid pain medication or sleeping during [...] the office immediately if noted.Contact stimulator customer engagement representative with questions regarding stimulator use.(see rep [...] call office immediately if noted.Contact stimulator customer engagement representative with questions regarding stimulator use.(see rep [...] and call immediately if noted.Contact stimulator customer engagement representative with questions regarding stimulator use.(see rep [...] sedation. You are required to have a trackless trolley driver remain in the facility before and during the procedure, then drive you home following the procedure.What should I expect after the procedure?You are required to have a trackless trolley driver remain in the waiting room of [facility] Pain Management during the procedure and drive you home [...] physician regarding your other diabetic medications. Normal [facility] Pain Management Office/Clini c Noteon 07-29-2017 [...] Chiropractor: 11/2016 Date PT: 01/16 Frequency PT: [id number] Effective PT: not much help Comments TENS: [...] qualifying data available.Electronically signed by Rashard infante CNPKendra 07/29/17 13:55 EDT Normal [facility] History and Physicalon 06-29 History and [...] Rosalee Guzman MD 06/29/17 13:18 EDT Normal [facility] Procedure Noteon 06-29-2017 Procedure Note PROCEDURE: [...] The patient was turned back onto the race and taken to recovery in stable condition to be discharged per criteria.Electronically signed by Rosalee Guzman MD 06/29/17 14:34 EDT Normal [facility] History and Physicalon 06-15 History and [...] by Rosalee Guzman MD 06/15/17 16:22 EDT [facility] Procedure Noteon 06-15-2017 Procedure Note PROCEDURE: [...] The patient was turned back onto the race and taken to recovery in stable condition to be discharged per criteria.Electronically signed by Rosalee Guzman MD 06/15/17 16:23 EDT [facility] Ambulatory Patient Education on 05-27-2017 Ambulatory Patient Education Patient Education MaterialsName: Alvin Boyd Current Date: 05/27/2017 10:03:36 [place]: 1935 [facility]: [id number] following sheet(s) are the Patient Education Leaflets [...] lot of pain?Your physician at [facility] Management will do everything possible [...] procedure. You are required to have a trackless trolley driver remain in the facility before and [...] procedure: Please arrive at: Please check in at:Packing House Supervisor Desk in the Pain Management [id number] [place] [address], 3rd floor [facility] inside the Emergency Room at [address]*Due to the sedation given for the procedure, you will not be permitted to drive until the following day. For this reason, you will need to bring a trackless trolley driver to stay with you and drive [...] Hibiclens (a medicated soap) prior to your surgery.*Bonsall teeth, rinse with water, but do not swallow.*Please wear comfortable clothing, without metal zippers or snaps. Do not wear contact lenses. Do wear your hearing aid. Please leave all jewelry and valuables at home; you may wear your wedding ring.*Please note that due to limited space, your family member/trackless trolley driver will need to wait in the waiting area while you are in the procedure area. Absolutely no children should attend an appointment for an injection.*All prescription refills must be requested in advance. No prescription refills requested on the day of a procedure will be available until at least 3 business days later.*If your procedure is done in [place], you will be receiving a statement from [facility] for the professional (physician's) billing fees and for the technical (hospital's) fees and a separate statement for the anesthesia provider. If your procedure is done in [place], you will be receiving a statement from [facility] for professional (physician's) billing fees, [...] concerns, please contact the appropriate office:[facility] Pain Management ([place] office) [phone] [facility] ([place] office) [phone] follow up appointment is scheduled for:AT[facility] [address] [facility], 3rd floor [facility], [facility] Pain Management [address] [facility], [address], [facility] [address] [facility], 2nd floor clinic, [facility] [address] [facility]?WHAT TO EXPECT AFTER THE PROCEDURE:Please note [...] increase pain. (for example, bending, twisting, walking, facility maintenance manager).Try to avoid pain medication or sleeping during [...] the office immediately if noted.Contact stimulator customer engagement representative with questions regarding stimulator use.(see rep [...] call office immediately if noted.Contact stimulator customer engagement representative with questions regarding stimulator use.(see rep [...] and call immediately if noted.Contact stimulator customer engagement representative with questions regarding stimulator use.(see rep card) Normal [facility] Pain Management Office/Clini c Noteon 05-27-2017 [...] Chiropractor: 11/2016 Date PT: 01/16 Frequency PT: [id number] Effective PT: not much help Comments TENS: [...] on his/her behalf by a trained medical science liaison. The creation of this document is based on the provider?s statements to the medical science liaison.Problem List/Past Medical History Ongoing Acid reflux Angina [...] lynn 05/27/17 10:14 EDTElectronically signed by A Kendra infante CNP 05/27/2017 10:22 EDT Normal [facility] Vital Signs Date Time Vital Sign Value Performing Clinician Michelle gamez 10-19-2024 09:08-0500 Body height 171.5 cm Amy Daily DPM Work Phone: [facility] 10-19-2024 09:08-0500 Body mass index (BMI) [Ratio] 34.57 kg/m2 Amy Daily DPM Work Phone: [facility] 10-19-2024 09:08-0500 Body weight 101.61 kg Amy Daily DPM Work Phone: [facility] Healthcare Encounters Encounter Date Encounter Type Care Provider Facility Start: 04-07-2025 ambulatory [facility] Start: 04-04-2025 ambulatory [facility] Start: 04-03-2025 ambulatory [facility] Start: 03-28-2025 ambulatory [facility] Start: 01-25-2025 End: 01-25-2025 Bamboo flowsheet Amy Daily DPM Work Phone: [facility] Start: 01-25-2025 End: 01-25-2025 Bamboo flowsheet Amy Daily DPM Work Phone: [facility] Start: 01-25-2025 End: 01-25-2025 Patient encounter procedure Amy Daily DPM Work Phone: [facility] Comment on above: Dermatophytosis of n ail (Primary Dx); Dystrophic nail; Pain around toenail, right foot; Pain around toenail, left foot Start: 01-25-2025 End: 01-25-2025 ambulatory AMY DAILY Not Available Start: 11-30-2024 End: 11-30-2024 ambulatory Jose Amado [facility] Work Phone: Start: 11-30-2024 End: 11-30-2024 Departed Referred Jose Amado MD Work Phone: [facility] Start: 11-08-2024 End: 11-08-2024 ambulatory [facility] Start: 10-19-2024 End: 10-19-2024 Bamboo flowsheet Amy Daily DPM Work Phone: [facility] Start: 10-19-2024 End: 10-19-2024 Bamboo flowsheet Amy Daily DPM Work Phone: [facility] Start: 10-19-2024 End: 10-19-2024 Patient encounter procedure Amy Daily DPM Work Phone: [facility] Comment on above: Dermatophytosis of n ail (Primary Dx); Dystrophic nail; Pain around toenail, right foot; Pain around toenail, left foot Start: 10-19-2024 End: 10-19-2024 ambulatory AMY A QUIRINO Not Available Start: 06-29-2024 End: 06-29-2024 ambulatory AMY Wetzel TIM Not Available Start: 06-20-2024 End: 06-20-2024 ambulatory [facility] Start: 04-19-2024 End: 04-19-2024 ambulatory [facility] Start: 03-09-2024 End: 03-09-2024 ambulatory AMY Wetzel QUIRINO Not Available Start: 03-30-2023 End: 04-29-2023 ambulatory [...] End: 06-25-2019 Patient encounter procedure RIO LAL Facility:[facility] Start: 06-21-2019 End: 06-27-2019 Patient encounter procedure GERBER SOUSAS Facility:[facility] Start: 04-13-2018 End: 04-14-2018 Ambulatory Rio Lal [facility] Start: 04-06-2018 End: 04-06-2018 Ambulatory RIO LAL Facility:[facility] Start: 03-29-2018 End: 03-30-2018 Ambulatory LEXI MORLEY [facility] Start: 03-16-2018 End: 03-17-2018 Ambulatory KENDRA SASHA AUXIER Facility:[facility] [place] Start: 02-19-2018 End: 02-20-2018 Ambulatory RIO MARSHALL GEORGEFRAN Facility:[facility] [place] Start: 01-13-2018 End: 01-13-2018 Ambulatory ROSALEE BAKOS Facility:[facility] Start: 01-06-2018 End: 01-07-2018 [facility] [place] Start: 11-09-2017 End: 11-09-2017 Ambulatory ROSALEE BAKOS Facility:[facility] Start: 10-14-2017 End: 10-15-2017 [facility] [place] Start: 09-09-2017 End: 09-09-2017 Ambulatory ROSALEE BAKOS Facility:[facility] Start: 08-26-2017 End: 08-26-2017 Ambulatory ROSALEE BAKOS Facility:[facility] Start: 07-29-2017 End: 07-30-2017 [facility] [place] Start: 06-29-2017 End: 06-29-2017 Ambulatory ROSALEE BAKOS Facility:[facility] Start: 06-15-2017 End: 06-15-2017 Ambulatory ROSALEE BAKOS Facility:[facility] Start: 05-27-2017 End: 05-28-2017 [facility] [place] Procedures Date Procedure Procedure Detail Performing Clinician Start: 11-30-2024 Gram stain maryann Amado MD Work Phone: Plan of Treatment Date Care Activity Detail Author Start: 05-17-2025 End: 05-17-2025 Patient encounter procedure 05/17/2025 9:30 AM EDT Procedure Visit [facility] [address] [place] [phone] Amy Daily DPM [address] [place] [address] [facility] Start: 01-25-2025 End: 01-25-2025 Patient encounter procedure [facility] Comment on above: Arrived Start: 11-30-2024 Aerobic Culture Aerobic Culture [facility] Start: 11-30-2024 Microbial culture of sputum [facility] Start: 10-19-2024 End: 10-19-2024 Patient encounter procedure 10/19/2024 9:15 AM EST Procedure Visit [facility] [address] [place] [phone] Amy Daily DPM [address] [place], [place] [phone] Arrived [facility] Comment on above: Arrived Start: 07-31-2024 Influenza vaccination Influenza Vacc ine (#1) [facility] Start: 12-02-2018 Pneumococcal Vaccine : 65+ Years (2 of 2 - PPSV23 or PCV20) Pneumococcal Vaccine: 65+ Years (2 of 2 - PPSV23 or PCV20) [facility] Immunizations Immunization Date Immunization Notes Care Provider [facility] 11-01-2018 influenza, injectabl e, quadrivalent, preservative free Amy Daily DPM Work Phone: [facility] 11-01-2018 influenza virus vacc ine, unspecified formulation Amy Daily DPM Work Phone: [facility] 12-02-2017 pneumococcal conjuga te vaccine, 13 valent Amy Daily DPM Work Phone: [facility] 11-03-2017 influenza, injectabl e, quadrivalent, preservative free Amy Daily DPM Work Phone: [facility] Payers Date Payer Category Payer Self-pay 2022 Private Health Insurance [employer] mbsammie [id number] 2001 Medicare 1959 Medicare [id number] 1959 Unknown [id number] 1959 Unknown [id number] 1936 Unknown [id number] 2.16.840.1.896549.3.579.2. 647 1936 Unknown [id number] 2.16.840.1.421822.3.579.2. 647 1936 Unknown [id number] 2.16.840.1.297280.3.579.2. 593 1936 Unknown [id number] 2.16.840.1.535325.3.579.2. 593 1936 Unknown [id number] 2.16.840.1.042913.3.579.2. 593 1936 Unknown [id number] 2.16.840.1.197966.3.579.2. 593 1936 Unknown [id number] 2.16.840.1.303540.3.579.2. 593 1936 Unknown [id number] 2.16.840.1.971255.3.579.2. 593 1936 Unknown [id number] 2.16.840.1.739680.3.579.2. 593 1936 Unknown [id number] 2.16.840.1.779703.3.579.2. 593 1936 Unknown [id number] 2.16.840.1.849182.3.579.2. 593 1936 Unknown [id number] 2.16.840.1.731353.3.579.2. 593 1936 Unknown [id number] 2.16.840.1.093941.3.579.2. 593 1936 Unknown [id number] 2.16.840.1.673496.3.579.2. 593 1936 Unknown [id number] 2.16.840.1.152862.3.579.2. 593 1936 Unknown [id number] 2.16.840.1.292571.3.579.2. 1259 1936 Unknown [id number] 2.16.840.1.303642.3.579.2. 1259 1936 Unknown [id number] 2.16.840.1.025016.3.579.2. 1259 1936 Unknown [id number] 2.16.840.1.183534.3.579.2. 1259 Medicare [id number] Unknown [facility] [id number] Unknown [id number] 2.16.840.1.011874.3.579.2. 531 Social History Date Type Detail Facility Start: 11-16-2023 Tobacco smoking stat [facility] Ex-smoker [facility] History of tobacco use Current smoker [facility] History of tobacco use Cigarette Smoker [facility] Start: 11-16-2023 Tobacco use and exposure Smokeless tobacco non-user [facility] Start: 06-29-2024 End: 10-19-2024 Alcoholic beverage intake Lifetime non-drinker (finding) [facility] Start: 06-29-2024 End: 10-19-2024 History of Social function [facility] Start: 06-29-2024 End: 10-19-2024 Tobacco use panel [facility] Start: 07-30-2023 Alcohol Comment Caffeine intake: non e [facility] Start: 1935 Sex assigned at Not on file N [facility] Tobacco smoking stat [facility] Unknown if ever smoked [facility] Work Phone: Start: 12-01-2024 Sex Male (finding) [facility] Start: 1935 Sex Assigned At Male F [facility] History of Present illness Narrative 01-25-2025 Amy Daily DPM - 01/25/2025 9:30 AM EST Note Date & Type Note Facility 01-25-2025 History of Presen t illness Narrative Images from the original note were not included. Subjective Patient ID: Alvin Boyd is a 89 y.o. male who presents for Toenail Care. [...] clothing etc. . Medications Current Outpatient Medications: ascorbic acid (Vitamin C) 500 MG tablet, Take 500 mg by mouth Daily, Disp: , Rfl: atorvastatin (Lipitor) 40 MG tablet, 40 mg 1 (one) time each day at the same time, Disp: , Rfl: budesonide (Pulmicort) 0.5 MG/2ML nebulizer solution, Take 0.5 mg by nebulization in the morning and 0.5 mg before bedtime. Rinse mouth with water after use to reduce aftertaste and incidence of candidiasis. Do not swallow.., Disp: , Rfl: carvedilol (Coreg) 12.5 MG tablet, Take 12.5 mg by mouth in the morning and 12.5 mg in the evening. Take with meals., Disp: , Rfl: cholecalciferol (Vitamin D-3) 25 MCG (1000 UT) capsule, Take 1,000 Units by mouth Daily, Disp: , Rfl: DULoxetine (Cymbalta) [address] capsule, Take 30 mg by mouth, Disp: , Rfl: ferrous sulfate 325 (65 Fe) MG tablet, Take 325 mg by mouth in the morning. Take with meals., Disp: , Rfl: furosemide (Lasix) 20 MG tablet, Take 20 mg by mouth Daily, Disp: , Rfl: Jantoven 4 MG tablet, 4 mg, Disp: , Rfl: montelukast (Singulair) 10 MG tablet, , Disp: , Rfl: Multiple Vitamins-Minerals (EYE VITAMINS PO), Take by mouth, Disp: , Rfl: omeprazole (PriLOSEC) [address] capsule, 40 mg, Disp: , Rfl: potassium chloride CR (Klor-Con M20) 20 MEQ ER tablet, Take 20 mEq by mouth Daily, Disp: , Rfl: sacubitril-valsartan (Entresto) 49-51 MG tablet, Take 1 tablet by mouth in the morning and 1 tablet before bedtime., Disp: , Rfl: sucralfate (Carafate) 1 g tablet, 1 g, Disp: , Rfl: hydrALAZINE (Apresoline) 10 MG tablet, 10 mg in the morning and 10 mg at noon and 10 mg in the evening and 10 mg before bedtime. (Patient not taking: Reported on 01/25/2025), Disp: , Rfl: hydroCHLOROthiazide (HYDRODiuril) 12.5 MG tablet, 12.5 mg (Patient not taking: Reported on 01/25/2025), Disp: , Rfl: losartan (Cozaar) 25 MG tablet, 25 mg 1 (one) time each day at the same time (Patient not taking: Reported on 01/25/2025), Disp: , Rfl: ondansetron (Zofran) 4 MG [...] Amy Daily DPM documented in this encounter [facility] Instructions 01-25-2025 Patient Instructions Note Date & Type Note Facility 01-25-2025 Instructions Amy Daily DPM - 01/25/2025 9:30 AM EST As noted documented in this encounter [facility] History of Present illness Narrative 10-19-2024 Amy [...] Amy Daily DPM documented in this encounter [facility] Progress note 06-20-2024 Note Date & Type Note Facility 06-20-2024 Note [place] [facility] Subjective Alvin Boyd is a 88 [...] chronic systolic heart failure, NYHA class 2 ([facility]) Chronic atrial fibrillation (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) History of cardiovascular disorder Chronic disease of cardiovascular system Encounter for long-term (current) use of insulin ([facility]) Hyperlipidemia Mitral valve disorder Morbid obesity with BMI of 40.0-44.9, adult ([facility]) Osteoarthritis of right hip Pulmonary embolism ([facility]) Right knee [...] Rfl: potassium chlo (more content not included)... [facility] Evaluation note Note Date & Type Note Facility Evaluation note Diagnosis Dermatophytosis of nail- Primary Dystrophic nail Other specified disease of nail Pain around toenail, right foot Pain around toenail, left foot documented in this encounter [facility] Evaluation note Note Date & Type Note Facility Evaluation note No assessment information availa [facility] Work Phone: Evaluation note Note Date & Type Note [...] Found Advance Directives No Advanced Directives Records Found Advance Directive Response Recorded Date/ Time Advance Directives No November 30, 2024 1:18pm Additional Source Comments (unrecognized sect ion and content) No Status Records FoundNo Status Records FoundNo Status Records FoundNo Status Records FoundNo Status Records FoundNo Status Records Found INFORMATION SOURCE (unrecogn ized section and content) DATE CREATED AUTHOR 05/19/2018 [facility] DATE CREATED AUTHOR AUTHOR'S ORGANIZ ATION 06/19/2020 [facility] DATE CREATED AUTHOR AUTHOR'S ORGANIZ ATION 05/08/2023 [facility] DATE CREATED AUTHOR AUTHOR'S ORGANIZ ATION 12/09/2024 [facility] DATE CREATED AUTHOR AUTHOR'S ORGANIZ ATION 01/27/2025 [facility] EPIC DATE CREATED AUTHOR AUTHOR'S ORGANIZ ATION 04/10/2025 [facility] Care Teams (unrecognized sec tion and content) Doorkeeper Relationship Specialty Start Date End Date Rio Lal MD [address] [place] [id number] PCP - General Internal Medicine 07/29/23 Doorkeeper Relationship Specialty Start Date End Date Rio Lal MD [address] [place] [address] PCP - General Internal Medicine 07/29/23 Team Status: Inactive Member Role Status Dates Jose Amado MD Attending Provider Active Sta rt: November 30, 2024 End: November 30, 2024 Doorkeeper Relationship Specialty Start Date End Date Rio Lal MD [facility] [place], [place] [phone] PCP - General Internal Medicine 07/29/23 Reason for Visit (unrecogniz ed section and content) Reason Comments Toenail Care Goals (unrecognized section and content) Goals may be documented in a n alternate section FOR RECORDS PERTAINING TO PATIENTS WHO ARE [...] BE BASED ON THE PRIMARY CLINICAL RECORDS. [employer] provides no warranty or guarantee of the accuracy or completeness of information in this document.
[2025-05-09 09:02] LABS: Basophils Absolute Auto 0.1 10^3/uL (0.0-0.1); Basophils Percent Auto 0.9 % (0.2-2.0); Eosinophils Absolute Auto 0.1 10^3/uL (0.0-0.7); Eosinophils Percent Auto 1.5 % (0.9-7.0); Hematocrit 41.2 % (42.0-54.0); Hemoglobin 13.4 g/dL (14.0-18.0); Immature Granulocytes Abs Auto 0.02 10^3/uL (0.00-0.03); Immature Granulocytes Pct Auto 0.2 % (0.0-0.5); Lymphocytes Absolute Auto 1.3 10^3/uL (1.2-3.8); Lymphocytes Percent Auto 14.3 % (20.5-60.0); Mean Corpuscular HGB Conc 32.5 g/dL (29.9-35.2); Mean Corpuscular Hemoglobin 31.4 pg (25.9-34.0); Mean Corpuscular Volume 96.5 fL (80.0-94.0); Mean Platelet Volume 9.7 fL (9.5-13.5); Monocytes Absolute Auto 0.7 10^3/uL (0.3-0.8); Monocytes Percent Auto 7.4 % (1.7-12.0); Neutrophils Absolute Auto 6.8 10^3/uL (1.4-6.5); Neutrophils Percent Auto 75.7 % (43.0-75.0); Platelet Count 177 10^3/uL (150-450); Red Blood Count 4.27 10^6/uL (4.70-6.10); Red Cell Distribution Width 12.9 % (11.0-15.0); White Blood Count 8.9 10^3/uL (4.0-11.0)
[2025-05-09 09:12] LABS: Estimated Average Glucose 131 mg/dL; Glycohemoglobin A1C 6.2 % (4.5-6.2)
[2025-05-09 09:31] LABS: Alanine Aminotransferase 25 U/L (16-63); Albumin Globulin Ratio 1.2; Albumin Level 3.6 g/dL (3.4-5.0); Alkaline Phosphatase 72 U/L (46-116); Anion Gap 13.1; Aspartate Amino Transferase 18 U/L (15-37); Bilirubin Direct 0.2 mg/dL (0.0-0.2); Bilirubin Total 0.8 mg/dL (0.2-1.0); Carbon Dioxide 27.5 mmol/L (21.0-32.0); Chloride 104 mmol/L (98-107); Chol HDL Ratio 2.4; Cholesterol 113 mg/dL (<=200); Estimated GFR (African America >60 (>=60 mL/min/1.73m^2); Estimated GFR (Non-African Ame 59 (>=60 mL/min/1.73m^2); HDL Cholesterol 47 mg/dL (40-60); LDL Cholesterol Calculated 47.6 mg/dL; Potassium 4.6 mmol/L (3.5-5.1); Sodium 140 mmol/L (136-145); Total Protein 6.6 g/dL (6.4-8.2); Triglycerides 92 mg/dL (<=150); VLDL CHOLESTEROL 18.4 mg/dL
== END 2025-05-09 08:26 | disposition home or self-care (01) ==
LOC: LAB 08:27
PROVIDERS: PCP Internal Medicine; Visit Provider Internal Medicine
DX: I11.0 Hypertensive heart disease with heart failure (principal); I50.42 Chronic combined systolic (congestive) and diastolic (congestive) heart failure; E78.5 Hyperlipidemia, unspecified; Z79.899 Other long term (current) drug therapy
CPT/HCPCS: 36415; 80051; 80061; 80076; 82565; 83036; 83880; 84520; 85025

== ENCOUNTER 2025-05-30 02:42 | Outpatient (RCR) | payer MEDICARE, SELFPAY | END 2025-06-29 16:52 | disposition home or self-care (01) | LOC: MM 02:42 | PROVIDERS: PCP Internal Medicine; Visit Provider Internal Medicine | DX: Z51.81 Encounter for therapeutic drug level monitoring (principal); Z79.01 Long term (current) use of anticoagulants; I48.91 Unspecified atrial fibrillation ==

== ENCOUNTER 2025-06-30 01:16 | Outpatient (RCR) | payer MEDICARE, SELFPAY | END 2025-07-27 13:13 | disposition home or self-care (01) | LOC: MM 01:16 | PROVIDERS: PCP Internal Medicine; Visit Provider Internal Medicine | DX: Z51.81 Encounter for therapeutic drug level monitoring (principal); Z79.01 Long term (current) use of anticoagulants; I48.91 Unspecified atrial fibrillation | CPT/HCPCS: 85610; G0463 ==

== ENCOUNTER 2025-07-05 08:28 | Outpatient (OUT) | payer MEDICARE, SELFPAY ==
--- NOTE | 2025-07-05 08:30 | CA_ITS ---
Patient Name: ALVIN BOYD MR#: [id number] : 1935 Exam Date: 07/05/2025 Ordering Doctor: DR PARISA CAMPBELL M.D. ECHOCARDIOGRAM REPORT PROCEDURE: CA ECHO DOPPLER COMPLETE INDICATIONS: Heart failure with reduced EF, Valvular regurgitation COMPARISON: None. DESCRIPTION: COMPLETE ECHOCARDIOGRAM Real-time transthoracic echocardiography with 2D, M-mode, spectral and color flow Doppler performed. QUALITY: Technical quality was good. LEFT VENTRICLE: Normal chamber size. Moderate concentric left ventricular hypertrophy. LV EF: Lower limits of normal left ventricular ejection fraction, (50-55%). DIASTOLIC: Diastolic function not evaluated. ATRIAL SEPTUM: LEFT ATRIUM: Severe dilatation. RIGHT ATRIUM: Severe dilatation. RIGHT VENTRICLE: Normal chamber size. Normal right ventricular systolic function. Pacer wire present. TRICUSPID VALVE: Normal mobility and thickness. No stenosis with moderate regurgitation. No evidence of pulmonary hypertension. RVSP 33 mmHg. MITRAL VALVE: Mildly thickened with normal mobility. No evidence of mitral valve stenosis. There is no mitral annular calcification. Mild to moderate mitral regurgitation. AORTIC VALVE: Normal trileaflet appearance. Moderately calcified aortic valve. Moderately diminished mobility. Doppler velocity suggests mild to moderate aortic valve stenosis. DVI 0.27, COLE 1.2cm2, Vmax 2.0m/s, peak/mean gradients 16/9mmHg. Mild aortic regurgitation. AORTIC ROOT: Normal diameter and appearance, measuring 3.5 cm. The ascending aorta is mildly dilated and measures 3.7 cm. PULMONIC VALVE: Normal thickness and mobility. No stenosis. Trivial regurgitation. PERICARDIUM: No evidence of pericardial effusion. IVC: Collapses with inspiration. Normal size. PLEURA: CONCLUSION: 1. Moderate concentric left ventricular hypertrophy with low normal systolic function. LVEF is estimated at 50 to 55%. 2. Normal right ventricular size and systolic function. 3. Severe biatrial dilatation. 4. Mild to moderate aortic valve stenosis with mild regurgitation. 5. Moderate tricuspid regurgitation. 6. Mild to moderate mitral regurgitation. 7. Normal right-sided pressures. Adult Echocardiography Procedure Report Left Ventricle LVEDD (3.7 - 5.6 cm): 4.38 cm LVESD (2.2 - 4.0 cm): 3.25 cm LVIVS thickness (0.6 - 1.2 cm): 1.46 cm LVPW thickness (0.5 - 1.0 cm): 1.41 cm e': 0.07 m/s E - e': 13.22 LVOT Max Gradient: 1.11 mm[Hg] LVOT Area (cm2): 0.53 m/s Peak Velocity (LVOT): 0.53 m/s Mean Velocity (LVOT): 0.40 m/s LVOT Diameter 2.32 cm Left Ventricular Ejection Fraction: 50-55 % Left Atrium LA Volume Index (2D A2C): 92.22 ml/m2 Left Atrium Systolic Dimension: 3.75 cm Mitral Valve MV E to A Ratio: 3.58 Mitral Valve A-Wave Peak Velocity: 0.27 m/s Mitral Valve E-Wave Peak Velocity: 0.97 m/s Right Ventricle RV Internal Diastolic Dimension: 4.01 cm Aorta AO Root Diam: 3.45 cm Ascending Ao Diam: 3.67 cm Aortic Valve AoV Area (Peak Cheikh): 1.13 cm2, 1.13 cm2 AoV Area (VTI): 1.19 cm2, 1.19 cm2 Peak Velocity(Antegrade Flow): 1.97 m/s Peak Gradient(Antegrade Flow): 15.47 mm[Hg] Mean Velocity(Antegrade Flow): 1.41 m/s Mean Gradient(Antegrade Flow): 9.02 mm[Hg] Velocity Time Integral: 40.87 cm Tricuspid Valve Peak Velocity (Regurgitant Flow): 2.75 m/s, 2.72 m/s Pulmonic Valve Mean Gradient: 0.94 mm[Hg] Mean Velocity: 0.43 m/s Peak Velocity: 0.73 m/s, 0.66 m/s Peak Gradient: 1.73 mm[Hg], 2.15 mm[Hg] Right Atrium Right Atrium Systolic Pressure: 94.13 ml, 94.13 ml Dictated by: Parisa Campbell M.D. on 07/05/2025 at 18:14 Approved by: Parisa Campbell M.D. on 07/05/2025 at 18:19
--- OUTSIDE RECORDS SUMMARY | 2025-07-05 08:30 | XMS_ITS | Clinical Summary ---
Author Organization [employer] [facility] tem Address [id number] [address] [place] [address] Care Team Providers Care Bridge Construction Inspector Name Role Phone kT Worrell DO, Charles L Primary Care Provider Allergies No known active allergies Medications aspirin 81 mg Take 81 mg by mouth daily. Active hydrALAZINE (APRESOLINE) 10 mg tablet 50 mg. Active losartan (COZAAR) 25 mg tablet 1 tablet Active fnegjscil-V6-bz D49-zcxkq oil (METANX, ALGAL OIL,) 3 mg-35 mg-2 [...] Not on file Insurance MEDICARE Care Teams Bridge Construction Inspector Relationship Specialty Start Date End Date Rio Frey Jr., DO [address] [place] [address] PCP - General Internal Medicine 11/25/21
--- OUTSIDE RECORDS SUMMARY | 2025-07-05 08:30 | XMS_ITS | Encounter Summary ---
Author Organization [facility] Address [address] [place] [address] Care Team Providers Care Survival Equipment Repairer Name Role Phone Tk Worrell DO, Charles Lewis Primary Care [facility] Source Comments In the event this information is protected by the Federal Confidentiality of Alcohol and Drug AbusePatient Records regulations: The Federal rules restrict any use of the information to criminally investigate or prosecute any alcohol or drug abuse patient.[facility] Encounter Details Date Type Department Care Team (Late st Contact Info) Description 10/04/2014 Get Medical Advice Orthopaedics [address] [phone] Cornell Wilkinson [address] [place] [address] RE: Upcoming Appointment Question Social History [...] on filedocumented in this encounter Care Teams Survival Equipment Repairer Relationship Specialty Start Date End Date Rio Frey Jr., [facility] [place] [address] PCP - General Internal Medicine 09/02/13 documented as of this encounter
--- OUTSIDE RECORDS SUMMARY | 2025-07-05 08:30 | XMS_ITS | Encounter Summary ---
Author Organization [facility] Address [address] [place] [address] Care Team Providers Care Transporter Radiology Name Role Phone Tk Worrell DO, Charles Lewis [facility] Source Comments In the event this information is protected by the Federal Confidentiality of Alcohol and Drug AbusePatient Records regulations: The Federal rules restrict any use of the information to criminally investigate or prosecute any alcohol or drug abuse patient.[facility] Encounter Details Date Type Department Care Team (Late st Contact Info) Description 08/21/2014 Patient Msg Medical Records [address] [place] [address] Provider, Ccf RE: Request an Appointment Social [...] on filedocumented in this encounter Care Teams Transporter Radiology Relationship Specialty Start Date End Date Rio Frey Jr., DO [facility] [place] [phone] PCP - General Internal Medicine 09/02/13 documented as of this encounter
--- OUTSIDE RECORDS SUMMARY | 2025-07-05 08:30 | XMS_ITS | Encounter Summary ---
Author Organization [facility] Address [address] [place] [address] Care Team Providers Care Ironer Name Role Phone Rio Frey MD Primary Care Provider [phone] Encounter Details Date Type Department Care Team (Late st Contact Info) Description 03/30/2025 Orders Only [facility] [address] [place] [address] Volodymyr Knott MD [address] [place] [address] Social History Tobacco Use Types Packs/Day Years Used Date Smoking Tobacco: Former Cigarettes 7 1984 Smokeless Tobacco: Never [place] Safety & Environment Answer Date Rec orded Fear of Current or Ex-Partner Not on file Emotionally Abused Not on file 01/21/2024 Physically Abused Not on file 01/21/2024 Sexually Abused Not on file 01/21/2024 Physically or Sexually Abused Not on file Sex and Gender Information Value Date Recorded Sex Assigned at Male 06/07/2025 2:41 PM EDT Legal Sex Male 10:25 PM EDT Gender Identity Male 06/07/2025 2:41 PM EDT Sexual Orientation Heterosexual or Straight 07/2025 2:41 PM EDT documented as of this encounter Plan of Treatment Not on file documented as of this encounter Procedures Procedure Name Priority Date/Time Associated Diagnosis Comments CARDIAC DEVICE CHECK - REMOTE - PACEMAKER Routine 03/30/2025 12:00 AM EDT documented in this encounter Results * Cardiac device check - Remote pacemaker (03/30/2025 12:00 AM EDT) Anatomical Region Laterality Modality Other 03/30/2025 Volodymyr Knott MD CV IMPLANTABLE CARDIAC DEVICE IA OCEDURES Final Result documented in this encounter Visit Diagnoses Not on filedocumented in this encounter Care Teams Ironer Relationship Specialty Start Date End Date Rio Frey MD [facility] [place] [address] PCP - General 10/22/22 documented as of this encounter
--- OUTSIDE RECORDS SUMMARY | 2025-07-05 08:30 | XMS_ITS | Clinical Summary ---
Author Organization [facility] Address [address] [place] [address] Care Team Providers Care Clearance Diver Name Role Phone Rio Frey MD Primary Care Provider Allergies No known active allergies Medications atorvastatin (Lipitor) 40 mg tablet 1 (one) time each day at the same time. Active carvedilol (Coreg) 12.5 mg tablet Take 1 tablet twice a day by oral route. Active DULoxetine (Cymbalta) [address] capsule Take 30 mg by mouth in the morning. Active sacubitriL-jaswinder sartan (Entresto) 49-51 mg tablet Take 1 tablet twice a day by oral route. 10/31/20 20 Active ferrous sulfate 325 (65 Fe) MG EC tablet Take 1 tablet by mouth in the morning. Active furosemide (Lasix) 40 mg tablet PRN for LE edema Act andra Spiriva with HandiHaler 18 mcg inhalation capsule 11/21/20 21 Active nitroglycerin (Nitrostat) 0.[address] 1 tab under tongue at the beginning of chest pain. May repeat every 5 minutes if pain persists. Do not repeat more that 3 times. Active montelukast (Singulair) 10 mg tablet 09/08/20 22 Active warfarin (Coumadin) 5 mg tablet Take 5 mg by mouth. Take as directed per After Visit Summary. Follow up with [facility] for INR Active hydroCHLOROthi azide 12.5 mg tablet Take 12.5 mg by mouth 2 times daily. 10/03/20 23 Active omeprazole (PriLOSEC) [address] capsule 03/29/20 23 Active sucralfate (Carafate) 1 gram tablet Take 1 g by mouth before breakfast and before evening meal. 05/07/20 24 Active potassium chloride CR (Klor-Con M20) 20 mEq ER tablet Take 20 mEq by mouth in the morning. Active cholecalcifero l (Vitamin D-3) 25 MCG (1000 UT) capsule Take 1,000 Units by mouth in the morning. Active aspirin 81 mg tablet Take 81 mg by mouth in the morning. 025 Discontin ued(Med List Cleanup) Active Problems Problem Noted Date Diagnosed Date CAD S/P percutaneous coronary angioplasty 202312/03/2023 Overview (12/03/2023): unclear about stents Coronary artery disease invo lving alatna coronary artery of [place] heart without angina pectoris 10/29/2022 Overview (10/29/2022): [...] Assessment & Plan (10/29/2022 10:26 AM EST): [id number]= 5 Remains rate controlled with coreg and [...] Encounters Date Type Department Care Team Description 06/19/2025 11:15 AM EDT Office Visit [facility] [place] [address] [place] [address] Salo Campbell MD Permanent atrial fibrillation (CMS/HCC) (Primary Dx); 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; Primary hypertension; 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; 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); Nonrheumatic tricuspid valve regurgitation 05/31/2025 5:15 AM EDT Ancillary Procedure [facility] [address] [facility] [place] [address] Adjustment and management of cardiac pacemaker 05/31/2025 Orders Only [facility] [address] [facility] [place] [address] Juan Bauer MD 05/12/2025 Orders Only [facility] [address] [facility] [place] [address] Juan Bauer MD 05/09/2025 9:45 AM EDT Ancillary Procedure [facility] [place] [address] [place] [phone] Encounter for implantable defibrillator reprogramming or check 04/30/2025 Orders Only [facility] [address] [place] [phone] Juan Bauer MD from Last 3 Months Family History Relation Name Status Comments Father Mother Social History Tobacco Use Types Packs/Day Years Used Date Smoking Tobacco: Former Cigarettes 1 967 - 1984 Smokeless Tobacco: Never Tobacco Cessation:Counseling Given: Not Answered Alcohol Use Standard Drinks/Week Comments Not Currently 0 (1 standard drink = 0.6 oz pur e alcohol) [place] Safety & Environment Answer Date Rec [...] Heterosexual or Straight 07/2025 2:41 PM EDT Last Filed Vital Signs Vital Sign Reading Time Taken Comments Blood Pressure 133/79 06/19/2025 12:03 PM EDT Pulse 61 06/19/2025 12:03 PM EDT Temperature - - Respiratory Rate - - Oxygen Saturation 98% 06/19/2025 12:03 PM EDT Inhaled Oxygen Concentration - - Weight 98 kg (216 lb) 06/19/2025 12:03 PM EDT Height 175.3 cm (5' 9 ) 06/19/2025 12:03 PM EDT Body Mass Index 31.9 06/19/2025 12:03 PM EDT Plan of Treatment Health Maintenance Due Date Last Done Comments Medicare Annual Wellness (AWV) 1935 Depression Screening 1948 Adult Tetanus 1958 Zoster Vaccines (1 of 2) 1986 Fall Risk Screening 2001 Pneumococcal Vaccine: 50+ Years (2 of 2 - PPSV23, PCV20, or PCV21) 01/27/2018 12/02/2017 COVID-19 Vaccine (4 - 2023-2 5 season) 2024 10/01/2021, 01/10/2021, 12/20/2020 Influenza Vaccine (#1) 2025 8, 11/03/2017 HIB Vaccines Aged Out No longer [...] CARDIAC DEVICE CHECK CHECK - REMOTE Routine 06/30/2025 7:27 PM EDT Adjustment and management of cardiac pacemaker CARDIAC DEVICE CHECK - REMOTE ALERT - PACEMAKER Routine 05/31/2025 12:00 AM EDT CARDIAC DEVICE CHECK - REMOTE ALERT - PACEMAKER Routine 05/12/2025 12:00 AM EDT CARDIAC DEVICE CHECK - IN CLINIC - PACEMAKER BIVENTRICULAR CHAMBER W/ PROG Routine 05/10/2025 11:56 AM EDT Encounter for implantable defibrillator reprogramming or check CARDIAC DEVICE CHECK - REMOTE - PACEMAKER Routine 04/30/2025 12:00 AM EDT CARDIAC DEVICE CHECK CHECK - REMOTE Routine 04/07/2025 11:37 AM EDT Adjustment and management of cardiac pacemaker CARDIAC DEVICE CHECK CHECK - REMOTE Routine 04/04/2025 11:16 AM EDT Adjustment and management of cardiac pacemaker from Last 3 Months Results * CARDIAC DEVICE CHECK - REMOTE ALERT - PACEMAKER (06/30/2025 7:27 PM EDT) Only the most recent of3 resultswithin the time period is included. BSA 2.18 m2 [facility] Laurent Barraza MD CV IMPLANTABLE CARDIAC DEVICE NC OCEDURES Final Result CPA * Cardiac device check - Remote alert pacemaker (05/31/2025 12:00 AM EDT) Only the most recent of2 resultswithin the time period is included. Anatomical Region Laterality Modality Other 05/31/2025 Juan Bauer MD CV IMPLANTABLE CARDIAC DEVICE PROCEDURES Final Result * CARDIAC DEVICE CHECK - IN CLINIC - PACEMAKER BIVENTRICULAR CHAMBER W/ PROG (05/10/2025 11:56 AM EDT) Anatomical Region Laterality Modality Other Narrative 05/11/2025 1:05 PM EDT By using the attestations below, the signing clinician agrees that I have read and verify that the documentation has been personally reviewed by me and ensure that the documentation accurately reflects the encounter. Routine EP device follow up as per schedule. Please see attached note us Volodymyr Knott MD CV IMPLANTABLE CARDIAC DEVICE NC OCEDURES Final Result * Cardiac device check - Remote pacemaker (04/30/2025 12:00 AM EDT) Anatomical Region Laterality Modality Other 04/30/2025 Juan Bauer MD CV IMPLANTABLE CARDIAC DEVICE PROCEDURES Final Result from Last 3 Months Insurance MEDICARE [facility] Care Teams Clearance Diver Relationship Specialty Start Date End Date Rio Frey MD [facility] [place] [phone] PCP - General 10/22/22
--- OUTSIDE RECORDS SUMMARY | 2025-07-05 08:30 | XMS_ITS | Encounter Summary ---
Author Organization [facility] Address [id number] [address] [place] [address] Care Team Providers Care Executive Asst Name Role Phone Tk Worrell DO, Charles L Primary Care Provider Encounter Details Date Type Department Care Team (Late st Contact Info) Description 05/16/2021 Orders Only [facility] [address] [place] [phone] Transcribe, Orders Support User Pain (Primary [...] pain documented in this encounter Care Teams Executive Asst Relationship Specialty Start Date End Date Rio Frey Jr., [address] [place] [address] PCP - General Internal Medicine 11/25/21 documented as of this encounter
--- OUTSIDE RECORDS SUMMARY | 2025-07-05 08:30 | XMS_ITS | Encounter Summary ---
Author Organization [facility] Address [address] [place] [address] Care Team Providers Care Clinical Esthetician Name Role Phone Rio Frey MD Primary Care Provider [phone] Encounter Details Date Type Department Care Team (Late st Contact Info) Description 05/12/2025 Orders Only [facility] [address] [place] [address] Juan Bauer MD [address] [place] [address] Social History Tobacco Use Types Packs/Day Years Used Date Smoking Tobacco: Former Cigarettes 7 1984 Smokeless Tobacco: Never [place] Safety & Environment Answer Date Rec orded [...] Diagnosis Comments CARDIAC DEVICE CHECK - REMOTE ALERT - PACEMAKER Routine 05/12/2025 12:00 AM EDT documented in this encounter Results * Cardiac device check - Remote alert pacemaker (05/12/2025 12:00 AM EDT) Anatomical Region Laterality Modality Other 05/12/2025 Juan Bauer MD CV IMPLANTABLE CARDIAC DEVICE PROCEDURES Final Result documented in this encounter Visit Diagnoses Not on filedocumented in this encounter Care Teams Clinical Esthetician Relationship Specialty Start Date End Date Rio Frey MD [facility] [place] [address] PCP - General 10/22/22 documented as of this encounter
--- OUTSIDE RECORDS SUMMARY | 2025-07-05 08:30 | XMS_ITS | Clinical Summary ---
Author Organization [facility] Address [address] [place] [address] Care Team Providers Care Central Sterile Technician Name Role Phone Tk Worrell DO, Charles [...] series) 2011 Diabetes Screening 09/13/2017 09/13/2014, 09/21/2013 Advance Directive Discussion 11/30/2024 Influenza Vaccine (#1) 2025 Medical Devices Implanted Type Area Metal Patternmaker Apprentice Device Identifier Shelf Expiration Date Model / Serial / Lot Pacemaker-Evia [id number] -2013 Implanted:08/22 (Quantity not on file) Pacemaker [employer] Caroline MARTIN / [id number] / Procedures Procedure Name Priority Date/Time Associated Diagnosis Comments BASIC METABOLIC PANEL Routine 09/13/2014 8:03 AM EDT Right knee DJD Preoperative examination, unspecified Other specified pre-operative examination from Last 3 Months or Most Recently Relevant to Health Maintenance Results * BASIC METABOLIC PNL (09/13/2014 8:03 AM EDT) Glucose 97 65 - 100 mg/dL [facility] BUN 23 10 - 25 mg/dL [facility] Creatinine 1.01 0.70 - 1.40 mg/dL [facility] Sodium 138 135 - 146 mmol/L [facility] Potassium 4.6 3.5 - 5.0 mmol/L [facility] Chloride 102 98 - 110 mmol/L [facility] CO2 25 23 - 32 mmol/L [facility] Anion Gap 11 0 - 15 mmol/L [facility] Calcium 9.5 8.5 - 10.5 mg/dL [facility] eGFR- >60 [facility] eGFR-All Other Races >60 . [facility] Comment: eGFR (Estimated GFR) Units [...] EDT us [facility] Final Result [facility] [address] [place] [address] from Last 3 Months or Most Recently Relevant to Health Maintenance [facility] Care Teams Central Sterile Technician Relationship Specialty Start Date End Date Rio Frey Jr., DO [facility] [place] [phone] PCP - General Internal Medicine 09/02/13
--- OUTSIDE RECORDS SUMMARY | 2025-07-05 08:30 | XMS_ITS | Clinical Summary ---
Author Organization [facility] Address [address] [place] [address] Care Team Providers Care Core Paster Name Role Phone Rio Frey MD Primary [...] Take 1,000 Units by mouth Daily Active Encounters Date Type Department Care Team Description 05/17/2025 9:30 AM EDT Procedure Visit [facility] Pod[facility] [address] [place] [address] Cornell Daily DPM Dermatophytosis of nail (Primary Dx); Dystrophic nail; Pain around toenail, right foot; Pain around toenail, left foot 05/17/2025 Bamboo flowsheet [facility] [address] [place] [address] Cornell Daily DPM 05/17/2025 Travel 05/16/2025 Travel from Last 3 Months Immunizations Immunization Administration Dates Next Due Influenza, [...] - - Weight 98.9 kg (218 lb) 05/17/2025 9:25 AM EDT Height 172.7 cm (5' 8 ) 05/17/2025 9:25 AM EDT Body Mass Index 33.15 05/17/2025 9:25 AM EDT Plan of Treatment Upcoming Encounters Date Type Department Care Team (Late st Contact Info) Description 09/18/2025 9:30 AM EDT Procedure Visit [facility] [address] [place] [address] Cornell Daily DPM [address] [place], [place] [phone] Health Maintenance Due Date Last Done Comments Pneumococcal Vaccine: 65+ Ye ars (2 of 2 - PPSV23) 12/02/2018 12/02/2017 Influenza Vaccine (#1) 2025 11/01/2018, 2016 Insurance [facility] [address] MEDICARE [facility] Care Teams Core Paster Relationship Specialty Start Date End Date Rio Frey MD [facility] [place] [address] PCP - General Internal Medicine 07/29/23
--- OUTSIDE RECORDS SUMMARY | 2025-07-05 08:30 | XMS_ITS | Encounter Summary ---
Author Organization [facility] Address [address] [place] [address] Care Team Providers Care Atomic Physics Professor Name Role Phone Rio Frey MD Primary Care Provider [phone] Encounter Details Date Type Department Care Team (Late st Contact Info) Description 05/31/2025 Orders Only [facility] [address] [place] [address] Juan Bauer MD [address] [place] [address] Social History Tobacco Use Types Packs/Day Years Used Date Smoking Tobacco: Former Cigarettes 7 1984 Smokeless Tobacco: Never [place] Safety & Environment Answer Date Rec orded [...] - PACEMAKER Routine 05/31/2025 12:00 AM EDT documented in this encounter Results * Cardiac device check - Remote alert pacemaker (05/31/2025 12:00 AM EDT) Anatomical Region Laterality Modality Other 05/31/2025 Juan Bauer MD CV IMPLANTABLE CARDIAC DEVICE PROCEDURES Final Result documented in this encounter Visit Diagnoses Not on filedocumented in this encounter Care Teams Atomic Physics Professor Relationship Specialty Start Date End Date Rio Frey MD [facility] [place] [address] PCP - General 10/22/22 documented as of this encounter
--- OUTSIDE RECORDS SUMMARY | 2025-07-05 08:30 | XMS_ITS | Encounter Summary ---
Author Organization [facility] Address [address] [place] [address] Care Team Providers Care Credit Collections Specialist Name Role Phone Rio Frey MD Primary Care Provider [phone] Encounter Details Date Type Department Care Team (Late Contact Info) Description 07/30/2023 Abstract [facility] [address] [phone] Cornell Daily DPM [address] [place], [place] [phone] Social History Tobacco Use Types Packs/Day Years [...] Encounters Date Type Department Care Team (Late Contact Info) Description 09/18/2025 9:30 AM EDT Procedure Visit [facility] [address] [place] [address] Cornell Daily DPM [address] [place], [place] [phone] documented as of this encounter Visit Diagnoses Not on filedocumented in this encounter Care Teams Credit Collections Specialist Relationship Specialty Start Date End Date Rio Frey MD [address] [place] [address] PCP - General Internal Medicine 07/29/23 documented as of this encounter
== END 2025-07-05 08:29 | disposition home or self-care (01) ==
LOC: CARD 08:28
PROVIDERS: PCP Internal Medicine; Visit Provider Internal Medicine Interventional Cardiology
DX: I50.32 Chronic diastolic (congestive) heart failure (principal); I36.1 Nonrheumatic tricuspid (valve) insufficiency; Z51.81 Encounter for therapeutic drug level monitoring; Z79.01 Long term (current) use of anticoagulants; I48.91 Unspecified atrial fibrillation
CPT/HCPCS: 93306; G0463

== ENCOUNTER 2025-07-31 01:10 | Outpatient (RCR) | payer MEDICARE, SELFPAY | END 2025-08-29 15:47 | disposition home or self-care (01) | LOC: MM 01:10 | PROVIDERS: PCP Internal Medicine; Visit Provider Internal Medicine | DX: Z51.81 Encounter for therapeutic drug level monitoring (principal); Z79.01 Long term (current) use of anticoagulants; I48.91 Unspecified atrial fibrillation | CPT/HCPCS: 85610; G0463 ==

== ENCOUNTER 2025-08-30 04:22 | Outpatient (RCR) | payer MEDICARE, SELFPAY | END 2025-09-29 23:59 | disposition home or self-care (01) | LOC: MM 04:22 | PROVIDERS: PCP Internal Medicine; Visit Provider Internal Medicine | DX: Z51.81 Encounter for therapeutic drug level monitoring (principal); Z79.01 Long term (current) use of anticoagulants; I48.91 Unspecified atrial fibrillation | CPT/HCPCS: 85610; G0463 ==

== ENCOUNTER 2025-09-16 20:47 | Emergency (ER) | payer MEDICARE, SELFPAY ==
[2025-09-16] VITALS (9 sets, daily range): BP systolic 123–144; BP diastolic 60–89; PULSE 60–70; TEMP 36.8; O2SAT 93–98; BMI 32.2
--- OUTSIDE RECORDS SUMMARY | 2025-09-16 20:54 | XMS_ITS | Encounter Summary ---
Author Organization [facility] Address [address] [place] [address] Care Team Providers Care Office Machine Mechanic Name Role Phone Rio Frey MD Primary Care Provider [phone] Encounter Details Date Type Department Care Team (Late st Contact Info) Description 05/31/2025 Orders Only [facility] [address] [place] [address] Juan Bauer MD [address] [place] [address] Social History Tobacco Use Types Packs/Day Years Used Date Smoking Tobacco: Former Cigarettes 7 1984 Smokeless Tobacco: Never [place] Safety & Environment Answer Date Rec orded [...] on filedocumented in this encounter Care Teams Office Machine Mechanic Relationship Specialty Start Date End Date Rio Frey MD [facility] [place] [address] PCP - General 10/22/22 documented as of this encounter
--- OUTSIDE RECORDS SUMMARY | 2025-09-16 20:54 | XMS_ITS | Encounter Summary ---
Author Organization [facility] Address [id number] [place] [address] Care Team Providers Care Outdoor Advertising Leasing Agent Name Role Phone Tk Worrell DO, Charles L Primary Care Provider Encounter Details Date Type Department Care Team (Late st Contact Info) Description 05/16/2021 Orders Only [facility] [address] [place] [phone] Transcribe, Orders Support User Pain (Primary [...] pain documented in this encounter Care Teams Outdoor Advertising Leasing Agent Relationship Specialty Start Date End Date Rio Frey Jr., [address] [place] [address] PCP - General Internal Medicine 11/25/21 documented as of this encounter
--- OUTSIDE RECORDS SUMMARY | 2025-09-16 20:54 | XMS_ITS | Clinical Summary ---
Author Organization [facility] Address [id number] [address] [place] [address] Care Team Providers Care Pre School Manager Name Role Phone Tk Worrell DO, Charles L Primary Care Provider Allergies No known active allergies Medications aspirin 81 mg Take 81 mg by mouth daily. Active hydrALAZINE (APRESOLINE) 10 mg tablet 50 mg. Active losartan (COZAAR) 25 mg tablet 1 tablet Active gvnzkxvox-J5-sf Y35-qxagq oil (METANX, ALGAL OIL,) 3 mg-35 mg-2 [...] Risk Screening 2001 COVID-19 Vaccine (4 - 2024-2 6 season) 2025 10/01/2021, 01/10/2021, 12/20/2020 Influenza Vaccine 07/31/2025 11/01/2018, 11/03/2017 Medical Devices Not on file Insurance MEDICARE Care Teams Pre School Manager Relationship Specialty Start Date End Date Rio Frey Jr., DO [address] [place] [address] PCP - General Internal Medicine 11/25/21
--- OUTSIDE RECORDS SUMMARY | 2025-09-16 20:54 | XMS_ITS | Clinical Summary ---
Author Organization [facility] Address [address] [place] [address] Care Team Providers Care Wrapping Machine Helper Name Role Phone Rio Frey MD Primary Care Provider [phone] Allergies No known active allergies Medications atorvastatin [...] per After Visit Summary. [place] [facility] for [place] Active hydroCHLOROthi azide 12.5 [...] Units by mouth in the morning. 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 10/29/2022 Overview (10/29/2022): [...] Assessment & Plan (10/29/2022 10:26 AM EST): [id number]= 5 Remains rate controlled with coreg and [...] Encounters Date Type Department Care Team Description 09/01/2025 12:35 PM EDT Ancillary Procedure [facility] [place] [facility] [address] [place] [address] Adjustment and management of cardiac pacemaker 09/01/2025 Orders Only [facility] [place] [facility] [address] [facility] [place] [address] Volodymyr Knott MD 08/01/2025 1:00 PM EDT Ancillary Procedure [facility] [place] [facility] [address] [place] [address] Adjustment and management of cardiac pacemaker 08/01/2025 Orders Only [facility] [address] [facility] [place] [address] Volodymyr Knott MD 07/19/2025 Orders Only [facility] [address] [facility] [place] [address] Volodymyr Knott MD 07/17/2025 1:05 PM EDT Ancillary Procedure [facility] [address] [place] [address] Adjustment and management of cardiac pacemaker 07/07/2025 Telephone [facility] [address] [place] [address] Virginia Cisse MA 07/03/2025 1:00 PM EDT Ancillary Procedure [facility] [address] [place] [address] Adjustment and management of cardiac pacemaker 07/01/2025 Orders Only [facility] [address] [place] [address] Juan Bauer MD 06/19/2025 11:15 AM EDT Office Visit [facility] [address] [place] [phone] Salo Campbell MD Permanent atrial fibrillation (CMS/HCC) (Primary Dx); 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; Primary hypertension; 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; 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); Nonrheumatic tricuspid valve regurgitation from Last 3 Months Family History Relation Name Status Comments Father Mother Social History Tobacco Use Types Packs/Day Years Used Date Smoking Tobacco: Former Cigarettes - 1984 Smokeless Tobacco: Never Tobacco Cessation:Counseling [...] PCV21) 01/27/2018 12/02/2017 COVID-19 Vaccine (4 - 2024-2 6 season) 2025 10/01/2021, 01/10/2021, 12/20/2020 Influenza Vaccine (#1) 2025 [...] CARDIAC DEVICE CHECK CHECK - REMOTE Routine 09/04/2025 11:50 AM EDT Adjustment and management of cardiac pacemaker CARDIAC DEVICE CHECK - REMOTE - PACEMAKER Routine 09/01/2025 12:00 AM EDT CARDIAC DEVICE CHECK CHECK - REMOTE Routine 08/03/2025 2:23 PM EDT Adjustment and management of cardiac pacemaker CARDIAC DEVICE CHECK - REMOTE - PACEMAKER Routine 08/01/2025 12:00 AM EDT CARDIAC DEVICE CHECK CHECK - REMOTE Routine 07/21/2025 11:43 AM EDT Adjustment and management of cardiac pacemaker CARDIAC DEVICE CHECK - REMOTE - PACEMAKER Routine 07/19/2025 12:00 AM EDT CARDIAC DEVICE CHECK CHECK - REMOTE Routine 07/10/2025 4:02 PM EDT Adjustment and management of cardiac pacemaker CARDIAC DEVICE CHECK - REMOTE - PACEMAKER Routine 07/01/2025 12:00 AM EDT CARDIAC DEVICE CHECK CHECK - REMOTE Routine 06/30/2025 7:27 PM EDT Adjustment and management of cardiac pacemaker from Last 3 Months Results * CARDIAC DEVICE CHECK - REMOTE - PACEMAKER (09/04/2025 11:50 AM EDT) Only the most recent of5 resultswithin the time period is included. Volodymyr Knott MD CV IMPLANTABLE CARDIAC DEVICE OR OCEDURES Final Result CPACS * Cardiac device check - Remote pacemaker (09/01/2025 12:00 AM EDT) Only the most recent of4 resultswithin the time period is included. Anatomical Region Laterality Modality Other 09/01/2025 Volodymyr Knott MD CV IMPLANTABLE CARDIAC DEVICE OR OCEDURES Final Result from Last 3 Months Insurance MEDICARE Member Subscriber Plan / Payer (Ef fective 2001-Present) Name:[employer] Member ID:[id number] Relation to Subscriber:Self Name:[employer] Subscriber ID:[id number] Payer ID:[id number] Group ID:Not on file Type:Medicare Address: [facility] [address] Care Teams Wrapping Machine Helper Relationship Specialty Start Date End Date Rio Frey MD [address] [place] [address] PCP - General 10/22/22
--- OUTSIDE RECORDS SUMMARY | 2025-09-16 20:54 | XMS_ITS | Encounter Summary ---
Author Organization [facility] Address [address] [place] [address] Care Team Providers Care Rn Building Name Role Phone Rio Frey MD Primary Care Provider [phone] Encounter Details Date Type Department Care Team (Late st Contact Info) Description 03/30/2025 Orders Only [facility] [address] [place] [address] Volodymyr Knott MD [address] [place] [address] Social History Tobacco Use Types Packs/Day Years Used Date Smoking Tobacco: Former Cigarettes 7 1984 Smokeless Tobacco: Never [place] Safety & Environment Answer Date Rec orded [...] IMPLANTABLE CARDIAC DEVICE [place] OCEDURES Final Result documented in this encounter Visit Diagnoses Not on filedocumented in this encounter Care Teams Rn Building Relationship Specialty Start Date End Date Rio Frey MD [facility] [place] [address] PCP - General 10/22/22 documented as of this encounter
--- OUTSIDE RECORDS SUMMARY | 2025-09-16 20:54 | XMS_ITS | CCD ---
Author Organization [facility] ion [facility] Care Team Providers Care Supervisor Spinning Name Role Phone AUXIER, KENDRA SASHA Unavailable [...] Unavailabl e MORLEY, LEXI MILKA Unavailable Unavailable Little Birch, Kendra Sasha~[id number] Unavailable Unavailable ValoneRio Marshall Unavailable Unavailabl e Valone, Rio Marshall Unavailable Unavailabl e Arsalan Leija Unavailable Unavailable VALONEIRO MARSHALL Unavailable Unavailabl e MORLEY, LEXI MILKA Unavailable Unavailable Rio Frey Unavailable Unavailabl e VALONERIO Referring Unavailable RIO FREY Primary Care Unavailable YUE LUCAS Attending Unavailable YUE LUCAS Admitting Unavailable GERBER PETER Admitting Unavailable GERBER PETER Attending Unavailable RIO FREY Referring Unavailable RIO FREY Primary Care Unavailable SHAIKH [place] URIBE Attending Unavailable SHAIKH [place] URIBE Admitting Unavailable DR RIO FREY Primary Care Unavailable SHAIKH [place] URIBE Attending Unavailable SHAIKH [place] URIBE Admitting Unavailable DR RIO FREY Primary Care Unavailable SHAIKH [place] URIBE Attending [...] Care Provider Jose Amado MD Attending Provider Jose Amado Attending Unavailable Jose Amado Admitting Unavailable RUSAMY REID Attending Unavailable RUSHER, AMY Wetzel Attending Unavailable RUSHER, AMY Wetzel Attending Unavailable RUSHER, AMY Wetzel Attending Unavailable CUCA YUAN Referring Unavailable KWABENACUCA Villafana Referring Unavailable KWABENACUCA Villafana Referring Unavailable MOUKARBELPARISA Attending Unavailable ADELUISA Referring Unavailable ADE, LUISA Referring Unavailable KWABENACUCA Villafana Referring Unavailable ADELUISA Referring Unavailable KWABENACUCA Villafana Referring Unavailable KWABENACUCA Villafana Referring Unavailable KWABENACUCA Villafana Referring Unavailable KWABENACUCA Villafana Referring Unavailable Allergies Allergy Classification Reported Allergen(s) Allergy Type Date of Onset Reaction(s) Facility (1 source) 70653,00; Translations: [Unknown] Propensity to adverse reactions (disorder) 9 [facility] Medications Current Medications Medication Drug Class(es) Dates Sig (Normalized) Sig (Original) ascorbic acid 500 mg chewable tablet (3 sources) Vitamin C take 1 tablet by mouth once daily ascorbic acid (Vitamin C) 500 MG tablet Take 500 mg by mouth Daily Active atorvastatin 40 mg oral tablet (6 sources) HMG-CoA Reductase Inhibitor atorvastatin (Lipito r) 40 MG tablet 40 mg 1 (one) time each day at the same time Active budesonide 0.25 mg/ml inhalation suspension (3 sources) Corticosteroid take 0.5 mg by mouth in the morning budesonide (Pulmicort) 0.5 MG/2ML nebulizer solution Take 0.5 mg by nebulization in the morning and 0.5 mg before bedtime. Rinse mouth with water after use to reduce aftertaste and incidence of candidiasis. Do not swallow.. Active carvedilol 12.5 mg oral tablet (6 sources) alpha-Adrenergic Cathy, beta-Adrenergic Cathy Start: 10-23-20 take 1 tablet by mouth in the morning carvedilol (Coreg) 12.5 MG tablet Take 12.5 mg by mouth in the morning and 12.5 mg in the evening. Take with meals. 10/23/2023 Active cholecalciferol 0.025 mg oral capsule (3 sources) Vitamin D take 1 capsule by mouth once daily cholecalciferol (Vitamin D-3) 25 MCG (1000 UT) capsule Take 1,000 Units by mouth Daily Active DULoxetine 30 mg delayed release oral capsule (6 sources) Serotonin and Norepinephrine Reuptake Inhibitor Start: 10-23-20 DULoxetine (Cymbalta) [address] capsule Take 30 mg by mouth 10/23/2023 Active ferrous sulfate 325 mg oral tablet (3 sources) take 1 tablet by mouth at mealtime ferrous sulfate 325 (65 Fe) MG tablet Take 325 mg by mouth in the morning. Take with meals. Active furosemide 20 mg oral tablet (3 sources) Loop Diuretic Start: 01-01-20 25 take 1 tablet by mouth once daily furosemide (Lasix) 20 MG tablet Take 20 mg by mouth Daily 01/01/2025 Active hydrALAZINE hydrochloride 10 mg oral tablet (6 sources) Arteriolar Vasodilator hydrALAZINE (Apresoline) 10 MG tablet 10 mg in the morning and 10 mg at noon and 10 mg in the evening and 10 mg before bedtime. Active hydroCHLOROthiazide 12.5 mg oral tablet (6 sources) Thiazide Diuretic Start: 10-03-20 23 hydroCHLOROthiazide (HYDRODiuril) 12.5 MG tablet 12.5 mg 10/03/2023 Active losartan potassium 25 mg oral tablet (6 sources) Angiotensin 2 Receptor Cathy losartan (Cozaar) 25 MG tablet 25 mg 1 (one) time each day at the same time Active montelukast 10 mg oral tablet (6 sources) Leukotriene Receptor Antagonist Start: 09-12-20 montelukast (Singulair) 10 MG tablet 09/12/2023 Active Multiple Vitamins-Minerals (EYE VITAMINS PO) (3 sources) Multiple Vitamins-Minerals (EYE VITAMINS PO) Take by mouth Active omeprazole 40 mg delayed release oral capsule (6 sources) Proton Pump Inhibitor Start: 09-16-20 omeprazole (PriLOSEC) [address] capsule 40 mg 09/16/2023 Active ondansetron 4 mg oral tablet (6 sources) Serotonin-3 Receptor Antagonist Start: 10-29-20 ondansetron (Zofran) 4 MG tablet 10/29/2023 Active microencapsulated potassium chloride 20 meq extended release oral tablet (3 sources) Start: 12-08-19 potassium chloride CR (Klor-Con M20) 20 MEQ ER tablet Take 20 mEq by mouth Daily 12/08/2024 Active sacubitril 49 mg / valsartan 51 mg oral tablet (3 sources) Angiotensin 2 Receptor Cathy take 1 tablet by mouth in the morning sacubitril-valsartan (Entresto) 49-51 MG tablet Take 1 tablet by mouth in the morning and 1 tablet before bedtime. Active sucralfate 1000 mg oral tablet (3 sources) Aluminum Complex Start: 01-05-20 25 sucralfate (Carafate) 1 g tablet 1 g 01/05/2025 Active warfarin sodium 4 mg oral tablet (6 sources) Vitamin K Antagonist Start: 10-03-20 Jantoven 4 MG tablet 4 mg 10/03/2023 Active Problems Active Problems Problem Classification Problem Date Documented Date Episodic/Chronic Cardiac dysrhythmias (5 sources) Unspecified atrial fibrillation; Translations: [UNSPECIFIED ATRIAL FIBRILLATION] Onset: 3 Chronic Chronic kidney disease (1 source) Chronic kidney disease; 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] Onset: 2 Conduction disorders (6 sources) Presence of cardiac pacemaker; Translations: [Encounter for adjustment and management of other part of cardiac pacemaker] Onset: 4 Chronic Congestive heart failure; nonhypertensive (7 sources) Heart failure, unspecified; Translations: [Chronic diastolic (congestive) heart failure] Onset: 2 Chronic Coronary atherosclerosis and other heart disease (4 sources) Old myocardial infarction; Translations: [Atherosclerotic heart disease of [place] coronary artery without angina pectoris] Onset: 2 Chronic Disorders of lipid metabolism (1 source) Pure hypercholesterolemia, unspecified; Translations: [PURE HYPERCHOLESTEROLEMIA UNSPEC] Onset: 3 Chronic Esophageal disorders (1 source) Gastro-esophageal reflux disease without esophagitis; Translations: [GERD WITHOUT ESOPHAGITIS] Onset: 3 Chronic Essential hypertension (2 sources) Essential (primary) hypertension; Translations: [Essential (primary) hypertension] Onset: 5 Chronic Heart valve disorders (2 sources) Nonrheumatic tricuspid (valve) insufficiency; Translations: [Nonrheumatic tricuspid (valve) insufficiency] Onset: 5 Chronic Hypertension with complications and secondary hypertension (1 source) Hypertensive heart disease with heart failure; Translations: [HTN HEART DISEASE W/HEART FAIL] Onset: 3 Chronic Mycoses (3 sources) Onychomycosis due to dermatophyte ; Translations: [Tinea unguium] 10-19-2024 Episodic Nutritional deficiencies (1 source) Vitamin D deficiency, unspecified; Translations: [VITAMIN D DEFICIENCY UNSPECIFIED] Onset: 2 Chronic Other aftercare (5 sources) Encounter for therapeutic drug level monitoring; Translations: [ENC THERAPEUTC DRUG LEVL MONITORING] Onset: 3 Episodic Other aftercare (1 source) group home (current) use of anticoagulants; Translations: [RAIL SWITCHMAN CURRNT USE ANTICOAGULANTS] Onset: 3 Episodic Other connective tissue disease (1 source) Presence of artificial hip joint, bilateral; Translations: [PRESENCE ARTIFICIAL HIP JOINT BILAT] Onset: 3 Chronic Other connective tissue disease (6 sources) Pain in toe; Translations: [Pain in right toe(s)] 10-19-2024 Episodic Other nutritional; endocrine; and metabolic disorders (1 source) Morbid (severe) obesity due to excess calories; Translations: [MORBID SEVERE OBES D/T EXCESS LORENA] Onset: 3 Chronic Other nutritional; endocrine; and metabolic disorders (1 source) Body mass index (BMI) 34.0-34.9, adult; Translations: [BODY MASS INDEX BMI 34.0-34.9 ADULT] Onset: 3 Chronic Other skin disorders (3 sources) Dystrophia unguium; Translations: [Nail dystrophy] 10-19-2024 Episodic Residual codes; unclassified (1 source) Sleep apnea, unspecified; Translations: [SLEEP APNEA UNSPECIFIED] Onset: 3 Chronic Unclassified (2 sources) Permanent atrial fibrillation; Translations: [Permanent atrial fibrillation] Onset: 5 Past or Other Problems Problem Classification Problem [...] 2022 Episodic Other aftercare (1 source) Other custodial (current) drug therapy; Translations: [OTH SHELTER CURRENT DRUG THERAPY] Onset: 2022 Episodic Other aftercare (1 source) terminal operator (current) use of aspirin; Translations: [SHELTER CURRENT [...] Value Interpretation Reference Range Facility Orders Onlyon 09-01-2025 Orders Only [id number] Boyd,Calin shepherd Laura 1935 M Date Provider Department Center 09/01/2025 CUCA CASTRO H[facility] Family History Family Status - Relation Status Age at Mother Father [facility] Orders Onlyon 08-01-2025 Orders Only [id number] EugeneCalin shepherd Laura 1935 M Date Provider Department Center 08/01/2025 CUCA CASTRO [facility] Family History Family Status - Relation Status Age at Mother Father [facility] Orders Onlyon 07-19-2025 Orders Only [id number] EugeneCalin shepherd Laura 1935 M Date Provider Department Center 07/19/2025 CUCA CASTRO [facility] Family History Family Status - Relation Status Age at Mother Father [facility] 37on 07-07-2025 37 MD Virginia Cannon MA Please tell him that the echocardiogram showed stable findings. Continue same management and follow-up as planned. Spoke to patient to advise patient of Echo results per Dr. Dutton. Patient verbalized understanding. [facility] Orders Onlyon 07-01-2025 Orders Only [id number] EugeneCalin cora Sanchez 1935 M Date Provider Department Center 07/01/2025 BLAINE RIVERA HVC CARD [facility] Family History Family Status - Relation Status Age at Mother Father [facility] Office Visiton 06-19-2025 Follow-up visit [id number] Calin Boyd 1935 M Date Provider Department Center 06/19/2025 PARISA MORALES CARD [facility] Family History Family Status - Relation Status Age at Mother Father Level of Service:73061 [place] OFFICE/OUTPATIENT ESTABLISHED LOW MDM 20 MIN [facility] Orders Onlyon 04-30-2025 Orders Only [id number] Calin Boyd 1935 M Date Provider Department Center 04/30/2025 SukhBLAINE LOPEZ HVC CARD [facility] No family history on file [facility] Orders Onlyon 03-30-2025 Orders Only [id number] Calin Boyd 1935 M Date Provider Department Center 03/30/2025 SukhBLAINE LOPEZ HVC C[facility] No family history on file [facility] Aerobic Cultureon 11-30-2024 Aerobic Culture ORGANISM: Klebsiella [...] RESISTANT TO ALL B-LACTAM DRUGS. PERFORMED BY: [place] [address] PATHOLOGIST DOCK MANAGER TO VALDOVINOS M.D. Normal [facility] Comment on above: Performed By: #### A ERC, GS #### [address] Gram Stainon 11-30-2024 Microscopic observation Gram stain Nom (Unsp spec) Gram Stain Result 3+ White Blood Cells 2+ Gram Positive Cocci in Pairs 1+ Gram Positive Cocci 1+ Yeast Like Elements 1+ Epithelial Cells PERFORMED BY: [place] [address] PATHOLOGIST DOCK MANAGER TO VALDOVINOS M.D. Normal [facility] Comment on above: Performed By: #### A ERC, GS #### [address] Gram stain microscopyOrdered By: Jose Amado on 11-30-2024 Microscopic observation Gram stain Nom (Unsp spec) Gram stain microscopy [facility] CBC AUTO DIFFon 12-18-2022 BASO # 0.1 103/ul Normal 0.0-0.1 [facility] Comment on above: Performed By: #### C BC #### [facility] [address] [place] [address] Dr. Dana Angulo Basophils/100 WBC (Bld) 0.8 % Normal 0.2-2.0 [facility] Comment on above: Performed By: #### C BC #### [facility] [address] [place] [address] Dr. Dana Angulo EO # 0.1 103/ul Normal 0.0-0.7 [facility] Comment on above: Performed By: #### C BC #### [facility] [address] [place] [address] Dr. Dana Angulo Eosinophils/100 WBC (Bld) 0.9 % Normal 0.9-7.0 [facility] Comment on above: Performed By: #### C BC #### [facility] [address] [place] [address] Dr. Dana Angulo Erythrocyte distribution width (RBC) [Ratio] 13.2 % Normal 11.0-15.0 [facility] Comment on above: Performed By: #### C BC #### [facility] [address] [place] [address] Dr. Dana Angulo Hematocrit (Bld) [Volume fraction] 37.1 % Critically low 42.0-54.0 [facility] Comment on above: Performed By: #### C BC #### [facility] [address] [place] [address] Dr. Dana Angulo Hemoglobin (Bld) [Mass/Vol] 12.1 g/dL Critically low 14.0-18.0 [facility] Comment on above: Performed By: #### C BC #### [facility] [address] [place] [address] Dr. Dana Angulo IG # 0.03 10e3/ul Normal 0.00-0.03 [facility] Comment on above: Performed By: #### C BC #### [facility] [address] [place] [address] Dr. Dana Angulo IG % 0.4 % Normal 0.0-0.5 [facility] Comment on above: Performed By: #### C BC #### [facility] [address] [place] [address] Dr. Dana Angulo LYMPH # 1.4 103/ul Normal 1.2-3.8 [facility] Comment on above: Performed By: #### C BC #### [facility] [address] [place] [address] Dr. Dana Angulo Lymphocytes/100 WBC (Bld) 19.0 % Critically low 20.5-60.0 [facility] Comment on above: Performed By: #### C BC #### [facility] [address] [place] [address] Dr. Dana Angulo MANUAL DIFF REQ NO Normal [facility] Comment on above: Performed By: #### C BC #### [facility] [address] [place] [address] Dr. Dana Angulo MCH (RBC) [Entitic mass] 30.6 pg Normal 25.9-34.0 [facility] Comment on above: Performed By: #### C BC #### [facility] [address] [place] [address] Dr. Dana Angulo MCHC (RBC) [Mass/Vol] 32.6 g/dL Normal 29.9-35.2 [facility] Comment on above: Performed By: #### C BC #### [facility] [address] [place] [address] Dr. Dana Angulo MCV (RBC) [Entitic vol] 93.7 fL Normal 80.0-94.0 [facility] Comment on above: Performed By: #### C BC #### [facility] [address] [place] [address] Dr. Dana Angulo MONO # 0.5 103/ul Normal 0.3-0.8 [facility] Comment on above: Performed By: #### C BC #### [facility] [address] [place] [address] Dr. Dana Angulo Monocytes/100 WBC (Bld) 7.2 % Normal 1.7-12.0 [facility] Comment on above: Performed By: #### C BC #### [facility] [address] [place] [address] Dr. Dana Angulo NEUT # 5.4 103/ul Normal 1.4-6.5 [facility] Comment on above: Performed By: #### C BC #### [facility] [address] [place] [address] Dr. Dana Angulo Neutrophils/100 WBC (Bld) 71.7 % Normal 43.0-75.0 [facility] Comment on above: Performed By: #### C BC #### [facility] [address] [place] [address] Dr. Dana Angulo Platelet mean volume (Bld) [Entitic vol] 9.6 fL Normal 9.5-13.5 [facility] Comment on above: Performed By: #### C BC #### [facility] [address] [place] [address] Dr. Dana Angulo PLT 165 103/ul Normal 150-450 [facility] Comment on above: Performed By: #### C BC #### [facility] [address] [place] [address] Dr. Dana Angulo RBC 3.96 106/ul Critically low 4.70-6.10 [facility] Comment on above: Performed By: #### C BC #### [facility] [address] [place] [address] Dr. Dana Angulo WBC 7.5 103/ul Normal 4.0-11.0 [facility] Comment on above: Performed By: #### C BC #### [facility] [address] [place] [address] Dr. Dana Angulo ER URINE PROFILEon 3 Bilirubin Ql (U) Negative Normal NEGATIVE [facility] Comment on above: Performed By: #### Marino KENYON ICRO #### [facility] [address] [place] [address] Dr. Dana Angulo Clarity (U) CLEAR Normal CLEAR [facility] Comment on above: Performed By: #### Marino KENYON UMICRO #### [facility] [address] [place] [address] Dr. Dana Angulo Color (U) LT. YELLOW Normal YELLOW [facility] Comment on above: Performed By: #### Marino KENYON UMICRO #### [facility] [address] [place] [address] Dr. Dana Angulo ERUAHD A micrscopic examina tion will be performed if indicated. Normal [facility] Comment on above: Performed By: #### ANGELINA FRIENDRO #### [facility] [address] [place] [address] Dr. Dana Angulo Glucose Ql (U) Negative Normal NEGATIVE [facility] Comment on above: Performed By: #### ANGELINA FRIENDRO #### [facility] [address] [place] [address] Dr. Dana Angulo Hemoglobin Ql (U) Negative Normal NEGATIVE [facility] Comment on above: Performed By: #### ANGELINA FRIENDRO #### [facility] [address] [place] [address] Dr. Dana Angulo Ketones Ql (U) Negative Normal NEGATIVE [facility] Comment on above: Performed By: #### ANGELINA FRIENDRO #### [facility] [address] [place] [address] Dr. Dana Angulo LEUKOCYTES TRACE Abnormal NEGATIVE [facility] Comment on above: Performed By: #### ANGELINA FRIENDRO #### [facility] [address] [place] [address] Dr. Dana Angulo Nitrite Ql (U) Negative Normal NEGATIVE [facility] Comment on above: Performed By: #### ANGELINA FRIENDRO #### [facility] [address] [place] [address] Dr. Dana Angulo pH (U) 6.0 [pH] Normal 5-9 [facility] Comment on above: Performed By: #### ANGELINA FRIENDRO #### [facility] [address] [place] [address] Dr. Dana Angulo SPEC GRAVITY 1.015 Normal 1.005-<=1.0 25 [facility] Comment on above: Performed By: #### ANGELINA FRIENDRO #### [facility] [address] [place] [address] Dr. Dnaa Angulo UA PROTEIN Negative Normal NEGATIVE/ TRACE [facility] Comment on above: Performed By: #### ANGELINA FRIENDRO #### [facility] [address] [place] [address] Dr. Dana Angulo UR MICRO IND INDICATED Normal [facility] Comment on above: Performed By: #### E KOSTAS UMICRO #### [facility] [address] [place] [address] Dr. Dana Angulo Urobilinogen Qn (U) 0.2 {Delia'U}/dL Normal 0.2 - 1. 0 [facility] Comment on above: Performed By: #### GIANCARLO FRIENDICRO #### [facility] [address] [place] [address] Dr. Dana Angulo LACTATE/LACTIC ACIDon 2022 Lactate [Moles/Vol] 1.1 mmol/L Normal 0.4-1.9 [facility] Comment on above: Performed By: #### L ACT #### [facility] [address] [place] [address] Dr. Dana Angulo LIPASEon 12-18-2022 Lipase [Catalytic activity/Vol] 68.0 U/L Critically low 73.0-393.0 [facility] Comment on above: Performed By: #### C BC #### [facility] [address] [place] [address] Dr. Dana Angulo OCC BLD IMMUNO SCREENon 11-30 OCCULT BLOOD Negative Normal NEGATIVE [facility] Comment on above: Performed By: #### H STROPN #### [facility] [address] [place] [address] Dr. Dana Angulo PROF 14(COMP METB)on 023 Albumin [Mass/Vol] 3.8 g/dL Normal 3.4-5.0 [facility] Comment on above: Performed By: #### C BC #### [facility] [address] [place] [address] Dr. Dana Angulo Albumin/Globulin [Mass ratio] 1.3 {ratio} Normal [facility] Comment on above: Performed By: #### C BC #### [facility] [address] [place] [address] Dr. Dana Angulo ALP [Catalytic activity/Vol] 70 U/L Normal 46-116 [facility] Comment on above: Performed By: #### C BC #### [facility] [address] [address] [address] Dana Angulo ALT [Catalytic activity/Vol] 22 U/L Normal 16-63 [facility] Comment on above: Performed By: #### C BC #### [facility] [address] [address] [address] Dana Angulo Anion gap [Moles/Vol] 13.5 mmol/L Normal [facility] Comment on above: Performed By: #### C BC #### [facility] [address] [address] [address] Dana Angulo AST [Catalytic activity/Vol] 25 U/L Normal 15-37 [facility] Comment on above: Performed By: #### C BC #### [facility] [address] [place] [address] Dr. Dana Angulo Bilirubin [Mass/Vol] 1.0 mg/dL Normal 0.2-1.0 [facility] Comment on above: Performed By: #### C BC #### [facility] [address] [place] [address] Dr. Dana Angulo Calcium [Mass/Vol] 9.7 mg/dL Normal 8.5-10.1 [facility] Comment on above: Performed By: #### C BC #### [facility] [address] [place] [address] Dr. Dana Angulo Chloride [Moles/Vol] 103 mmol/L Normal 98-107 [facility] Comment on above: Performed By: #### C BC #### [facility] [address] [place] [address] Dr. Dana Angulo CO2 [Moles/Vol] 25.1 mmol/L Normal 21.0-32.0 [facility] Comment on above: Performed By: #### C BC #### [facility] [address] [place] [address] Dr. Dana Angulo Creatinine [Mass/Vol] 1.07 mg/dL Normal 0.70-1.30 [facility] Comment on above: Performed By: #### C BC #### [facility] [address] [place] [address] Dr. Dana Angulo EGFR-AF NAMIBIAN >60 Normal >=60 [facility] Comment on above: Performed By: #### C BC #### [facility] [address] [place] [address] Dr. Dana Angulo EGFR-NON AF NAMIBIAN >60 Normal >=60 [facility] Comment on above: Performed By: #### C BC #### [facility] [address] [place] [address] Dr. Dana Angulo Globulin (S) [Mass/Vol] 3.0 g/dL Normal [facility] Comment on above: Performed By: #### C BC #### [facility] [address] [place] [address] Dr. Dana Angulo Glucose [Mass/Vol] 115 mg/dL Critically high 74-106 [facility] Comment on above: Performed By: #### C BC #### [facility] [address] [place] [address] Dr. Dana Angulo Potassium [Moles/Vol] 3.6 mmol/L Normal 3.5-5.1 [facility] Comment on above: Performed By: #### C BC #### [facility] [address] [place] [address] Dr. Dana Angulo Protein [Mass/Vol] 6.8 g/dL Normal 6.4-8.2 [facility] Comment on above: Performed By: #### C BC #### [facility] [address] [place] [address] Dr. Dana Angulo Sodium [Moles/Vol] 138 mmol/L Normal 136-145 [facility] Comment on above: Performed By: #### C BC #### [facility] [address] [place] [address] Dr. Dana Angulo Urea nitrogen [Mass/Vol] 39.0 mg/dL Critically high 7.0-18.0 [facility] Comment on above: Performed By: #### C BC #### [facility] [address] [place] [address] Dr. Dana Angulo Urea nitrogen/Creatinine [Mass ratio] 36.4 mg/mg Normal [facility] Comment on above: Performed By: #### C BC #### [facility] [address] [place] [address] Dr. Dana Angulo PROTIMEon 12-18-2022 INR Coag (PPP) [Relative time] 2.15 {INR} Normal [facility] Comment on above: Performed By: #### P T, PTT #### [facility] [address] [place] [address] Dr. Dana Angulo INR GUIDELINES SEE BELOW Normal [facility] Comment on above: Result Comment: BETTINA RED INR: 2.0 - 3.0 CONDITIONS NOT LISTED BELOW 2.5 - 3.5 FOR PROSTHETIC HEART VALVE REPLACEMENT 2.5 - 3.5 RECURRENT THROMBOSIS Performed By: #### P T, PTT #### [facility] [address] [place] [address] Dr. Dana Angulo PT Coag (PPP) [Time] 21.8 s Critically high 9.0-11.6 [facility] Comment on above: Performed By: #### P T, PTT #### [facility] [address] [place] [address] Dr. Dana Angulo PTTon 12-18-2022 aPTT Coag (Bld) [Time] 35.3 s Normal 22.3-36.2 [facility] Comment on above: Performed By: #### P T, PTT #### [facility] [address] [place] [address] Dr. Dana Angulo TROPONIN, HIGH SENSITIVITYon 12-18-2022 HSTROP 37.2 pg/mL Normal 4.0-76.1 [facility] Comment on above: Result Comment: CUT- OFF POINTS HAVE BEEN ESTABLISHED BASED ON THE FOURTH UNIVERSAL DEFINITIONS OF MYOCARDIAL INFARCTION. THE UPPER REFERENCE LIMIT (URL) OF TROPONIN, DEFINED THE 99TH PERCENTILE OF cTnI DISTRIBUTION IN A REFERENCE POPULATION, HAS BEEN CONFIRMED THE DECISION THRESHOLD FOR CT DIAGNOSIS. Performed By: #### H STROPN #### [facility] [address] [place] [address] Dr. Dana Angulo HSTROP 39.8 pg/mL Normal 4.0-76.1 [facility] Comment on above: Result Comment: CUT- OFF POINTS HAVE BEEN ESTABLISHED BASED ON THE FOURTH UNIVERSAL DEFINITIONS OF MYOCARDIAL INFARCTION. THE UPPER REFERENCE LIMIT (URL) OF TROPONIN, DEFINED THE 99TH PERCENTILE OF cTnI DISTRIBUTION IN A REFERENCE POPULATION, HAS BEEN CONFIRMED THE DECISION THRESHOLD FOR CT DIAGNOSIS. Performed By: #### H STROPN #### [facility] [address] [place] [address] Dr. Dana Angulo URINE MICROSCOPIC ONLYon BACTERIA NONE SEEN Normal NONE SEEN [facility] Comment on above: Performed By: #### E RUR, UMICRO #### [facility] [address] [place] [address] Dr. Dana Angulo Bacteria identified Cx Nom (U) NOT INDICATED Normal [facility] Comment on above: Performed By: #### E RUR, UMICRO #### [facility] [address] [place] [address] Dr. Dana Angulo CAST NONE SEEN Normal NONE SEEN [facility] Comment on above: Performed By: #### E RUR, UMICRO #### [facility] [address] [place] [address] Dr. Dana Angulo Crystals LM Nom (Urine sed) NONE SEEN Normal NONE SEEN [facility] Comment on above: Performed By: #### E RUR, UMICRO #### [facility] [address] [place] [address] Dr. Dana Angulo Epithelial cells LM Ql (Urine sed) FEW Abnormal NONE SEEN /RARE [facility] Comment on above: Performed By: #### E RUR, UMICRO #### [facility] [address] [place] [address] Dr. Dana Angulo MUCOUS NONE SEEN Normal NONE SEEN [facility] Comment on above: Performed By: #### E RUR, UMICRO #### [facility] [address] [place] [address] Dr. Dana Angulo RBC NONE SEEN Abnormal 0-2 [facility] Comment on above: Performed By: #### E RUR, UMICRO #### [facility] [address] [place] [address] Dr. Dana Angulo WBC 2-5 Abnormal NONE SEEN [facility] Comment on above: Performed By: #### E HUMBERTO KENYON #### [facility] [address] [address] [address] Dana Angulo US SINGLE QUAD RT [...] DOMINIQUE JAUREGUI Date: 2022-12-18 13:05 Normal [facility] BNPon 11-11-2022 Natriuretic peptide B (Bld) [Mass/Vol] 2364.0 pg/mL Critically high <=1,800.0 [facility] Comment on above: Performed By: #### H STROPN #### [facility] [address] [address] [address] Dana Angulo BUNon 11-11-2022 Urea nitrogen [Mass/Vol] 18.0 mg/dL Normal 7.0-18.0 [facility] Comment on above: Performed By: #### H STROPN #### [facility] [address] [address] [address] Dana Angulo CBC AUTO DIFFon 11-11-2022 BASO # 0.0 103/ul Normal 0.0-0.1 [facility] Comment on above: Performed By: #### C BC #### [facility] [address] [place] [address] Dr. Dana Angulo Basophils/100 WBC (Bld) 0.6 % Normal 0.2-2.0 [facility] Comment on above: Performed By: #### C BC #### [facility] [address] [place] [address] Dr. Dana Angulo EO # 0.1 103/ul Normal 0.0-0.7 [facility] Comment on above: Performed By: #### C BC #### [facility] [address] [place] [address] Dr. Dana Angulo Eosinophils/100 WBC (Bld) 1.3 % Normal 0.9-7.0 [facility] Comment on above: Performed By: #### C BC #### [facility] [address] [place] [address] Dr. Dana Angulo Erythrocyte distribution width (RBC) [Ratio] 13.9 % Normal 11.0-15.0 [facility] Comment on above: Performed By: #### C BC #### [facility] [address] [place] [address] Dr. Dana Angulo Hematocrit (Bld) [Volume fraction] 36.2 % Critically low 42.0-54.0 [facility] Comment on above: Performed By: #### C BC #### [facility] [address] [place] [address] Dr. Dana Angulo Hemoglobin (Bld) [Mass/Vol] 11.4 g/dL Critically low 14.0-18.0 [facility] Comment on above: Performed By: #### C BC #### [facility] [address] [place] [address] Dr. Dana Angulo IG # 0.02 10e3/ul Normal 0.00-0.03 [facility] Comment on above: Performed By: #### C BC #### [facility] [address] [place] [address] Dr. Dana Angulo IG % 0.3 % Normal 0.0-0.5 [facility] Comment on above: Performed By: #### C BC #### [facility] [address] [place] [address] Dr. Dana Angulo LYMPH # 1.4 103/ul Normal 1.2-3.8 [facility] Comment on above: Performed By: #### C BC #### [facility] [address] [place] [address] Dr. Dana Angulo Lymphocytes/100 WBC (Bld) 19.8 % Critically low 20.5-60.0 [facility] Comment on above: Performed By: #### C BC #### [facility] [address] [place] [address] Dr. Dana Angulo MANUAL DIFF REQ NO Normal [facility] Comment on above: Performed By: #### C BC #### [facility] [address] [place] [address] Dr. Dana Angulo MCH (RBC) [Entitic mass] 30.9 pg Normal 25.9-34.0 [facility] Comment on above: Performed By: #### C BC #### [facility] [address] [place] [address] Dr. Dana Angulo MCHC (RBC) [Mass/Vol] 31.5 g/dL Normal 29.9-35.2 [facility] Comment on above: Performed By: #### C BC #### [facility] [address] [place] [address] Dr. Dana Angulo MCV (RBC) [Entitic vol] 98.1 fL Critically high 80.0-94.0 [facility] Comment on above: Performed By: #### C BC #### [facility] [address] [place] [address] Dr. Dana Angulo MONO # 0.5 103/ul Normal 0.3-0.8 [facility] Comment on above: Performed By: #### C BC #### [facility] [address] [place] [address] Dr. Dana Angulo Monocytes/100 WBC (Bld) 6.9 % Normal 1.7-12.0 [facility] Comment on above: Performed By: #### C BC #### [facility] [address] [place] [address] Dr. Dana Angulo NEUT # 5.1 103/ul Normal 1.4-6.5 [facility] Comment on above: Performed By: #### C BC #### [facility] [address] [place] [address] Dr. Dana Angulo Neutrophils/100 WBC (Bld) 71.1 % Normal 43.0-75.0 [facility] Comment on above: Performed By: #### C BC #### [facility] [address] [place] [address] Dr. Dana Angulo Platelet mean volume (Bld) [Entitic vol] 9.4 fL Critically low 9.5-13.5 [facility] Comment on above: Performed By: #### C BC #### [facility] [address] [place] [address] Dr. Dana Angulo PLT 164 103/ul Normal 150-450 [facility] Comment on above: Performed By: #### C BC #### [facility] [address] [place] [address] Dr. Dana Angulo RBC 3.69 106/ul Critically low 4.70-6.10 [facility] Comment on above: Performed By: #### C BC #### [facility] [address] [place] [address] Dr. Dana Angulo WBC 7.1 103/ul Normal 4.0-11.0 [facility] Comment on above: Performed By: #### C BC #### [facility] [address] [place] [address] Dr. Dana Angulo CREATININEon 11-11-2022 Creatinine [Mass/Vol] 1.10 mg/dL Normal 0.70-1.30 [facility] Comment on above: Performed By: #### H STROPN #### [facility] [address] [place] [address] Dr. Dana Angulo EGFR-AF NAMIBIAN >60 Normal >=60 [facility] Comment on above: Result Comment: Prev iously reported as: >77 On 11/11/2022 10:45 By [email or web address] Previously reported as: (blank) On 11/11/2022 10:44 By BL3 Performed By: #### H STROPN #### [facility] [address] [place] [address] Dr. Dana Angulo EGFR-NON AF NAMIBIAN >60 Normal >=60 [facility] Comment on above: Result Comment: Prev iously reported as: >64 On 11/11/2022 10:45 By [email or web address] Previously reported as: (blank) On 11/11/2022 10:44 By BL3 Performed By: #### H STROPN #### [facility] [address] [place] [address] Dr. Dana Angulo CULTURE URINEon 11-11-2022 CULTURE URINE Culture Observations : NO GROWTH. Normal [facility] Comment on above: Performed By: #### C BC #### [facility] [address] [place] [address] Dr. Dana Angulo ELECTROLYTESon 11-11-2022 Anion gap [Moles/Vol] 12.7 mmol/L Normal [facility] Comment on above: Performed By: #### H STROPN #### [facility] [address] [place] [address] Dr. Dana Angulo Chloride [Moles/Vol] 103 mmol/L Normal 98-107 [facility] Comment on above: Performed By: #### H STROPN #### [facility] [address] [place] [address] Dr. Dana Angulo CO2 [Moles/Vol] 29.0 mmol/L Normal 21.0-32.0 [facility] Comment on above: Performed By: #### H STROPN #### [facility] [address] [place] [address] Dr. Dana Angulo Potassium [Moles/Vol] 4.7 mmol/L Normal 3.5-5.1 [facility] Comment on above: Performed By: #### H STROPN #### [facility] [address] [place] [address] Dr. Dana Angulo Sodium [Moles/Vol] 140 mmol/L Normal 136-145 [facility] Comment on above: Performed By: #### H STROPN #### [facility] [address] [address] [address] Dana Angulo GLYCOHEMOGLOBIN A1Con 2021 ADA RECOMMENDATION SEE BELOW Normal [facility] Comment on above: Result Comment: ADA RECOMMENDED LIMIT 4.0 - 6.0 ADA THERAPEUTIC TARGET < 7.0 ACTION SUGGESTED > 7.0 Performed By: #### H STROPN #### [facility] [address] [address] [address] Dana Angulo Glucose [Mass/Vol] 120 mg/dL Normal [facility] Comment on above: Performed By: #### H STROPN #### [facility] [address] [address] [address] Dana Angulo HbA1c (Bld) [Mass fraction] 5.8 % Normal 4.5-6.2 [facility] Comment on above: Performed By: #### H STROPN #### [facility] [address] [address] [address] Dana Angulo LIPID PROFILEon 11-11-2022 CHOL-HDL RATIO NORM SEE BELOW Normal [facility] Comment on above: Result Comment: 3.3 - 4.4 LOW RISK 4.4 - 7.1 AVERAGE RISK 7.1 - 11.0 MODERATE RISK >11.0 HIGH RISK Performed By: #### H STROPN #### [facility] [address] [address] [address] Dana Angulo Cholesterol [Mass/Vol] 91 mg/dL Normal <=200 [facility] Comment on above: Performed By: #### H STROPN #### [facility] [address] [address] [address] Dana Angulo Cholesterol in HDL [Mass/Vol] 49 mg/dL Normal 40-60 [facility] Comment on above: Performed By: #### H STROPN #### [facility] [address] [address] [address] Dana Angulo Cholesterol in LDL [Mass/Vol] 29.4 mg/dL Normal [facility] Comment on above: Performed By: #### H STROPN #### [facility] [address] [address] [address] Dana Angulo Cholesterol.total/Ch olesterol in HDL [Mass ratio] 1.9 {ratio} Normal [facility] Comment on above: Performed By: #### H STROPN #### [facility] [address] [address] [address] Dana Angulo HDL NORMAL > or = 60 mg/dl - LO W CARDIOVASCULAR RISK <40 mg/dl - HIGH CARDIOVASCULAR RISK Normal [facility] Comment on above: Performed By: #### H STROPN #### [facility] [address] [address] [address] Dana Angulo LDL CALC NORMAL SEE BELOW Normal [facility] Comment on above: Result Comment: <100 mg/dl OPTIMAL 100 - 129 mg/dl NEAR OR ABOVE OPTIMAL 130 - 159 mg/dl BORDERLINE HIGH 160 - 189 mg/dl HIGH >190 mg/dl VERY HIGH Performed By: #### H STROPN #### [facility] [address] [address] [address] Dana Angulo Triglyceride [Mass/Vol] 63 mg/dL Normal <=150 [facility] Comment on above: Performed By: #### H STROPN #### [facility] [address] [address] [address] Dana Angulo VLDL CALC 12.6 mg/dL Normal [facility] Comment on above: Performed By: #### H STROPN #### [facility] [address] [address] [address] Dana Angulo LIVER PROFILEon 11-11-2022 Albumin [Mass/Vol] 3.7 g/dL Normal 3.4-5.0 [facility] Comment on above: Performed By: #### H STROPN #### [facility] [address] [address] [address] Dana Angulo Albumin/Globulin [Mass ratio] 1.2 {ratio} Normal [facility] Comment on above: Performed By: #### H STROPN #### [facility] [address] [address] [address] Dana Angulo ALP [Catalytic activity/Vol] 68 U/L Normal 46-116 [facility] Comment on above: Performed By: #### H STROPN #### [facility] [address] [place] [address] Dr. Dana Angulo ALT [Catalytic activity/Vol] 20 U/L Normal 16-63 [facility] Comment on above: Performed By: #### H STROPN #### [facility] [address] [address] [address] Dana Angulo AST [Catalytic activity/Vol] 21 U/L Normal 15-37 [facility] Comment on above: Performed By: #### H STROPN #### [facility] [address] [place] [address] Dr. Dana Angulo BILI, CONJUGATED 0.3 mg/dL Critically high 0.0-0.2 [facility] Comment on above: Performed By: #### H STROPN #### [facility] [address] [place] [address] Dr. Dana Angulo Bilirubin [Mass/Vol] 0.9 mg/dL Normal 0.2-1.0 [facility] Comment on above: Performed By: #### H STROPN #### [facility] [address] [place] [address] Dr. Dana Angulo Globulin (S) [Mass/Vol] 3.1 g/dL Normal [facility] Comment on above: Performed By: #### H STROPN #### [facility] [address] [place] [address] Dr. Dana Angulo Protein [Mass/Vol] 6.8 g/dL Normal 6.4-8.2 [facility] Comment on above: Performed By: #### H STROPN #### [facility] [address] [place] [address] Dr. Dana Angulo TSHon 11-11-2022 TSH 3.426 uIU/mL Normal 0.358-3.740 [facility] Comment on above: Performed By: #### H STROPN #### [facility] [address] [address] [address] Dana Angulo UA (CLEAN/CATCH) PROCUREMENT MANAGER/MICRO I F IND.on 11-11-2022 Bilirubin Ql (U) Negative Normal NEGATIVE [facility] Comment on above: Performed By: #### U ACSIND, UMICRO #### [facility] [address] [address] [address] Dana Angulo Clarity (U) CLEAR Normal CLEAR [facility] Comment on above: Performed By: #### U ACSIND, UMICRO #### [facility] [address] [address] [address] Dana Angulo Color (U) YELLOW Normal YELLOW [facility] Comment on above: Performed By: #### U ACSIND, UMICRO #### [facility] [address] [place] [address] Dr. Dana Angulo Glucose Ql (U) Negative Normal NEGATIVE [facility] Comment on above: Performed By: #### U ACSIND, UMICRO #### [facility] [address] [place] [address] Dr. Dana Angulo Hemoglobin Ql (U) Negative Normal NEGATIVE [facility] Comment on above: Performed By: #### U ACSIND, UMICRO #### [facility] [address] [place] [address] Dr. Dana Angulo Ketones Ql (U) TRACE Abnormal NEGATIVE [facility] Comment on above: Performed By: #### U ACSIND, UMICRO #### [facility] [address] [address] [address] Dana Angulo LEUKOCYTES SMALL Abnormal NEGATIVE [facility] Comment on above: Performed By: #### U ACSIND, UMICRO #### [facility] [address] [address] [address] Dana Angulo Nitrite Ql (U) Negative Normal NEGATIVE [facility] Comment on above: Performed By: #### U ACSIND, UMICRO #### [facility] [address] [place] [address] Dr. Dana Angulo pH (U) 6.0 [pH] Normal 5-9 [facility] Comment on above: Performed By: #### U ACSIND, UMICRO #### [facility] [address] [address] [address] Dana Angulo SPEC GRAVITY 1.015 Normal 1.005-<=1.[address] [place] [address] Comment on above: Performed By: #### U ACSIND, UMICRO #### [facility] [address] [address] [address] Dana Anguol UA PROTEIN TRACE Normal NEGATIVE/ TRACE [facility] Comment on above: Performed By: #### U ACSIND, UMICRO #### [facility] [address] [address] [address] Dana Angulo UR MICRO IND INDICATED Normal [facility] Comment on above: Performed By: #### U ACSIND, UMICRO #### [facility] [address] [place] [address] Dr. Dana Angulo Urobilinogen Qn (U) 1.0 {Delia'U}/dL Normal 0.2 - 1. 0 [facility] Comment on above: Performed By: #### U ACSIND, UMICRO #### [facility] [address] [place] [address] Dr. Dana Angulo URINE MICROSCOPIC ONLYon BACTERIA TRACE Abnormal NONE SEEN [facility] Comment on above: Performed By: #### U ACSIND, UMICRO #### [facility] [address] [place] [address] Dr. Dana Angulo Bacteria identified Cx Nom (U) INDICATED Normal [facility] Comment on above: Performed By: #### U ACSIND, UMICRO #### [facility] [address] [place] [address] Dr. Dana Angulo CAST SEEN Abnormal NONE SEEN [facility] Comment on above: Performed By: #### U ACSIND, UMICRO #### [facility] [address] [address] [address] Dana Angulo Crystals LM Nom (Urine sed) NONE SEEN Normal NONE SEEN [facility] Comment on above: Performed By: #### U ACSIND, UMICRO #### [facility] [address] [address] [address] Dana Angulo Epithelial cells LM Ql (Urine sed) RARE Normal NONE SEEN /RARE [facility] Comment on above: Performed By: #### U ACSREGGIE UMICRO #### [facility] [address] [address] [address] Dana Angulo MUCOUS NONE SEEN Normal NONE SEEN [facility] Comment on above: Performed By: #### U ACSREGGIE UMICRO #### [facility] [address] [address] [address] Dana Angulo RBC 2-5 Abnormal 0-2 [facility] Comment on above: Performed By: #### U ANGELINA SCHERERRO #### [facility] [address] [address] [address] Dana Angulo WBC 2-5 Abnormal NONE SEEN [facility] Comment on above: Performed By: #### U ANGELINA SCHERERRO #### [facility] [address] [address] [address] Dana Angulo VITAMIN D 25 OHon 11-11-2022 VIT D 25-OH 30.2 ng/mL Normal [facility] Comment on above: Performed By: #### C BC #### [facility] [address] [address] [address] Dana Angulo VIT D RANGES SEE BELOW Normal [facility] Comment on above: Result Comment: <20 ng/mL Vit D deficient 20 - <30 ng/mL Vit D insufficient 30 - 100 ng/mL Vit D sufficient >100 ng/mL Potential Toxicity Performed By: #### C BC #### [facility] [address] [address] [address] Dana Angulo Cardiovascular Lab Reporton 06-25-2019 Cardiovascular Lab Report [facility] #: [id number] Department of Physician: Geetha Blankenship M.D. Division of Service Date: 06/24/2019 Cardiology Birthdate: 1935 Adult Cardiovascular Room #: [facility] [address] [address] Cardiovascular Laboratory Report FINAL IMPRESSION: 1. Normal right and left ventricular filling pressures. 2. Preserved cardiac output and cardiac index. 3. Mild pulmonary artery hypertension. 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 He has been experiencing shortness of breath [...] modified Seldinger technique and ultrasound guidance, a 5-Somali micropuncture was placed in right internal jugular vein. This was upsized to a regular 6-Somali pinnacle sheath and a 6-Somali Jackson was used for right heart catheterization. [...] Rashard/Yue Lucas M.D. Date Trans: 06/25/2019 05:12 Colleen [id number] cc: Rio Frey D.O. [address] [place] [id number] [place] [facility] Neurosurgery Office/Clinic N oteon 04-13-2018 Neurosurgery Office/Clinic Note Chief Complaint BACK [...] Arsalan dexter MD 04/13/18 15:39 EDT Normal [facility] CT Spine Lumbar w/ Contrasto n [...] Further degenerative changes are detailed above.Radiation Dose Estimate:CTDI(mGy):0.30012 0 / / / kVp:120.693507 / mAs:0.380306 / / / DLP(mGy-cm):5.467902Krek Part:CTDI(mGy):28.796020 / / / kVp:120.444145 / mAs:294.876828 / / / DLP(mGy-cm):632.817720Tads Part: Final Dictated by: Naldo Aguilar MD, MDictated DT/TM: 04.06.2018 11:34 amSigned by: Naldo Aguilar MD MSigned (Electronic Signature): 04.06.2018 3:49 pmTranscribed DT/TM: 04.06.2018 1:29 pm(If Report Is Signed, Electronically Signed in Other Vendor System) Normal [facility] Inpatient Clinical Summaryon 04-06-2018 [place] [address] [address]Dfxrrlfa SummaryPerson InformationName: Alvin Boyd Age: 82 Years : 1935Sex: Male PCP: Rio Frey DO Status: PCP: [id number]:White Ethnicity:Not or Language:EnglishMRN: [id number] Visit Id: Reason:stenosis, bilateral leg pain Speciality: Acuity:Enc Type: Outpatient in a Bed Med Service: Radiology-Diagnostic ImagingArrival:04/06/2018 08:16:35 Discharge: Dispo Type:Address:[address] [place], [place] [address]Diagnosis:Discharged To:Home Treatments:Devices/Equipme nt:Professional Skilled Services:Special Services and [...] Assoc 04/14/2018 14:30:00 04/14/2018 15:00:00 Confirmed Normal [facility] PTon 04-06-2018 INR Coag RelTime (PPP) 1.1 {INR} Normal <=3.5 [facility] Comment on above: Result Comment: INR has no normal range. INR Therapeutic range is:2.0-3.0 (AF, CVA, TIAs, DVT prophylaxis, acute DVT)2.5-3.5 ([facility] heart valves, recurrent thrombosis/emboli) Performed By: #### P TINR ####[address] [address] Prothrombin time (PT) Coag time (PPP) 11.3 s Normal 9.1-11.9 [facility] Comment on above: Performed By: #### P TINR ####[address] [address] PTTon 04-06-2018 aPTT 24.0 s Normal 21.0-28.8 [facility] Comment on above: Performed By: #### P TT ####[address] [address] Platelet Counton 04-06-2018 Platelets 135 x10*3/mcL Low 150-350 [facility] Comment on above: Performed By: #### P LTS ####[address] [address] XR Myelography Lumbosacral S lazara 04-06-2018 XR Myelography Lumbosacral Spine CLINICAL HISTORY: [...] myelogram. 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 Upon completion [...] stenosisElectronically signed by F ox JOE Lexi Milka 03/29/18 12:41 EDT Normal [facility] Pain Management Office/Clini c Noteon 03-16-2018 [...] Injections: 11-09-17 Date Surgery: n/a Frequency PT: [id number] Effective PT: not much help Effective Injections: [...] data available.Electronically signed by Kendra Reyes CNP 03/16/18 13:37 EDT Normal [facility] Pain Management Office/Clini c Noteon 02-19-2018 Pain [...] Injections: 11-09-17 Date Surgery: n/a Frequency PT: [id number] Effective PT: not much help Effective Injections: [...] qualifying data available.Electronically signed by Rashard infante Kendra DIZA 02/19/18 12:56 EDT Normal [facility] History and Physicalon 01-13 History and [...] Rosalee Guzman MD 01/13/18 15:09 EST Normal [facility] Pain Management Procedure No glenn 01-13-2018 [...] of a responsible adult.Electronically signed by B Rosalee smallwood MD 01/13/18 15:09 EST Normal [facility] Ambulatory Patient Education on 01-06-2018 Ambulatory [...] the next day. You must have a delivery truck driver heavy that will wait in the Pain Management [...] procedure: Please arrive at: Please check in at:Inpatient Auditor Desk in the Pain Management [id number] [facility], 3rd floor [facility] OHReception Desk inside the Emergency Room at [address]*Due to the sedation given for the procedure, you will not be permitted to drive until the following day. For this reason, you will need to bring a delivery truck driver heavy to stay with you and drive you [...] Hibiclens (a medicated soap) prior to your surgery.*Alma teeth, rinse with water, but do not swallow.*Please wear comfortable clothing, without metal zippers or snaps. Do not wear contact lenses. Do wear your hearing aid. Please leave all jewelry and valuables at home; you may wear your wedding ring.*Please note that due to limited space, your family member/delivery truck driver heavy will need to wait in the waiting area while you are in the procedure area. Absolutely no children should attend an appointment for an injection.*All prescription refills must be requested in advance. No prescription refills requested on the day of a procedure will be available until at least 3 business days later.*If your procedure is done in [place], you will be receiving a statement from [facility] for the professional (physician's) billing fees and for the technical (hospital's) fees and a separate statement for the anesthesia provider. If your procedure is done in [place], you will be receiving a statement from [facility] for professional (physician's) billing fees, technical [...] questions or concerns, please contact the appropriate office:[facility] ([place] office) [phone] [facility] ([place] office) [phone] follow up appointment is scheduled for:AT:[facility] [address] [facility], 3rd floor [facility], [facility] Pain Management [address] [facility], [address], [facility] [address] [facility], 2nd floor clinic, [facility] [address] [facility]?WHAT TO EXPECT AFTER THE PROCEDURE:Please note [...] increase pain. (for example, bending, twisting, walking, fast food delivery driver).Try to avoid pain medication or sleeping during [...] call the office immediately if noted.Contact stimulator call center support representative with questions regarding stimulator use.(see rep [...] and call office immediately if noted.Contact stimulator call center support representative with questions regarding stimulator use.(see rep [...] drainage and call immediately if noted.Contact stimulator call center support representative with questions regarding stimulator use.(see rep card) Normal [facility] Pain Management Office/Clini c Noteon 01-06-2018 [...] PT: 01/16 Date Injections: 11-09-17 Frequency PT: [id number] Effective PT: not much help Effective Injections: [...] qualifying data available.Electronically signed by A arelis DIAZKendra 01/06/18 15:15 EST Normal [facility] Pain Management Office/Clini c Giuliana 11-09-2017 Pain Management Office/Clinic Note History of [...] Rosalee smallwood MD 11/09/17 09:27 EST Normal [facility] Procedure Noteon 11-09-2017 Procedure Note PROCEDURE: [...] as per treatment plan.Electronically signed by B Esteban smallwood MDagiotis 11/09/17 09:36 EST Normal [facility] Ambulatory Patient Education on 10-14-2017 Ambulatory Patient Education Patient Education MaterialsName: BoydAlvin Current Date: 10/14/2017 11:49:11 [place] 1935 following sheet(s) are the Patient Education Leaflets for Alvin Boyd Name:You are scheduled for a:*Please allow up to 2 hours for your appointment. Late arrivals may result in delay or postponement of procedure.Date/Time of procedure: Please arrive at: Date/Time of procedure: Please arrive at: Please check in at:Inpatient Auditor Desk in the Pain Management [id number] [place] [address], 3rd floor [facility] inside the Emergency Room at [address]*Due to the sedation given for the procedure, you will not be permitted to drive until the following day. For this reason, you will need to bring a delivery truck driver heavy to stay with you and drive you [...] Hibiclens (a medicated soap) prior to your surgery.*Alma teeth, rinse with water, but do not swallow.*Please wear comfortable clothing, without metal zippers or snaps. Do not wear contact lenses. Do wear your hearing aid. Please leave all jewelry and valuables at home; you may wear your wedding ring.*Please note that due to limited space, your family member/delivery truck driver heavy will need to wait in the waiting area while you are in the procedure area. Absolutely no children should attend an appointment for an injection.*All prescription refills must be requested in advance. No prescription refills requested on the day of a procedure will be available until at least 3 business days later.*If your procedure is done in [place], you will be receiving a statement from [facility] for the professional (physician's) billing fees and for the technical (hospital's) fees and a separate statement for the anesthesia provider. If your procedure is done in [place], you will be receiving a statement from [facility] for professional (physician's) billing fees, technical [...] questions or concerns, please contact the appropriate office:[facility] ([place] office) [phone] [facility] ([place] office) [phone] follow up appointment is scheduled for:AT:[facility] [address] [facility], 3rd floor [facility], [facility] Pain Management [address] [facility], [address], [facility] [address], 2nd floor clinic, [address]?WHAT TO EXPECT AFTER THE PROCEDURE:Please note [...] increase pain. (for example, bending, twisting, walking, fast food delivery driver).Try to avoid pain medication or sleeping during [...] call the office immediately if noted.Contact stimulator call center support representative with questions regarding stimulator use.(see rep [...] and call office immediately if noted.Contact stimulator call center support representative with questions regarding stimulator use.(see rep [...] drainage and call immediately if noted.Contact stimulator call center support representative with questions regarding stimulator use.(see rep card)Nerve Root InjectionThe nerve root injection is a procedure where a local anesthetic and steroid solution are administered near the nerve as it exits the spinal canal. This is done under fluoroscopy (watching under live x-ray) to deliver the drug to the precise location.Am I a candidate for a nerve root injection?At [facility], the provider examining you will decide [...] procedure. You are required to have a delivery truck driver heavy remain in the facility before and during [...] home the morning of the procedure. Normal [facility] Pain Management Office/Clini c Noteon 10-14-2017 [...] Chiropractor: 11/2016 Date PT: 01/16 Frequency PT: [id number] Effective PT: not much help Comments TENS: [...] qualifying data available.Electronically signed by A arelis Kendra DIAZ 10/14/17 11:44 EST Normal [facility] History and Physicalon 09-09 History and [...] Rosalee Guzman MD 09/09/17 11:17 EDT Normal [facility] Comment on above: Order Comment: This [...] Rosalee Guzman MD 09/09/17 11:20 EDT Normal [facility] Procedure Noteon 09-09-2017 Procedure Note PROCEDURE: [...] The patient was turned supine onto the rney and transferred to the recovery area in stable condition, to be discharged home after meeting criteria and follow up as per treatment plan.Electronically signed by Betsey smallwood MD, Rosalee 09/09/17 11:21 EDT Normal [facility] History and Physicalon 08-26 History and [...] available.Electronically signed by Betsey smallwood MD, Rosalee 08/26/17 14:38 EDT Normal [facility] History and Physical History of Present [...] available.Electronically signed by Rosalee Guzman MD 08/26/17 15:42 EDT Normal [facility] Procedure Noteon 08-26-2017 Procedure Note PROCEDURE: [...] as per treatment plan.Electronically signed by B Rosalee smallwood MD 08/26/17 15:42 EDT Normal [facility] Ambulatory Patient Education on 07-29-2017 Ambulatory Patient Education Patient Education MaterialsName: Alvin Boyd Current Date: 07/29/2017 14:05:41 [place]: 1935 following sheet(s) are the Patient Education Leaflets for Alvin Boydatient Name:You are scheduled for a:*Please allow up to 2 hours for your appointment. Late arrivals may result in delay or postponement of procedure.Date/Time of procedure: Please arrive at: Date/Time of procedure: Please arrive at: Please check in at:Inpatient Auditor Desk in the Pain Management [id number] [place] [address], 3rd floor [facility] OHReception Desk inside the Emergency Room at [address]*Due to the sedation given for the procedure, you will not be permitted to drive until the following day. For this reason, you will need to bring a delivery truck driver heavy to stay with you and drive you [...] Hibiclens (a medicated soap) prior to your surgery.*Alma teeth, rinse with water, but do not swallow.*Please wear comfortable clothing, without metal zippers or snaps. Do not wear contact lenses. Do wear your hearing aid. Please leave all jewelry and valuables at home; you may wear your wedding ring.*Please note that due to limited space, your family member/delivery truck driver heavy will need to wait in the waiting area while you are in the procedure area. Absolutely no children should attend an appointment for an injection.*All prescription refills must be requested in advance. No prescription refills requested on the day of a procedure will be available until at least 3 business days later.*If your procedure is done in [place], you will be receiving a statement from [facility] for the professional (physician's) billing fees and for the technical (hospital's) fees and a separate statement for the anesthesia provider. If your procedure is done in [place], you will be receiving a statement from [facility] for professional (physician's) billing fees, technical [...] questions or concerns, please contact the appropriate office:[facility] ([place] office) [phone] [place] [facility] ([place] office) [phone] follow up appointment is scheduled for:AT:[facility] [address] [facility], 3rd floor [facility], [facility] Pain Management [address] [facility], [address], [facility] [address] [facility], 2nd floor clinic, [facility] [address] [place] [address]?WHAT TO EXPECT AFTER THE PROCEDURE:Please note the [...] increase pain. (for example, bending, twisting, walking, fast food delivery driver).Try to avoid pain medication or sleeping during [...] call the office immediately if noted.Contact stimulator call center support representative with questions regarding stimulator use.(see rep [...] and call office immediately if noted.Contact stimulator call center support representative with questions regarding stimulator use.(see rep [...] drainage and call immediately if noted.Contact stimulator call center support representative with questions regarding stimulator use.(see rep [...] sedation. You are required to have a delivery truck driver heavy remain in the facility before and during the procedure, then drive you home following the procedure.What should I expect after the procedure?You are required to have a delivery truck driver heavy remain in the waiting room of [facility] during the procedure and drive you [...] physician regarding your other diabetic medications. Normal [facility] Pain Management Office/Clini c Noteon 07-29-2017 [...] Chiropractor: 11/2016 Date PT: 01/16 Frequency PT: [id number] Effective PT: not much help Comments TENS: [...] available.Electronically signed by A Kendra infante CNP 07/29/17 13:55 EDT Normal [facility] History and Physicalon 06-29 History and [...] by Rosalee Guzman MD 06/29/17 13:18 EDT [facility] Procedure Noteon 06-29-2017 Procedure Note PROCEDURE: [...] patient was turned back onto the [facility] and taken to recovery in stable condition to be discharged per criteria.Electronically signed by Rosalee Guzman MD 06/29/17 14:34 EDT [facility] History and Physicalon 06-15 History and [...] by Rosalee Guzman MD 06/15/17 16:22 EDT [facility] Procedure Noteon 06-15-2017 Procedure Note PROCEDURE: [...] The patient was turned back onto the rterril and taken to recovery in stable condition to be discharged per criteria.Electronically signed by Rosalee Guzman MD 06/15/17 16:23 EDT [facility] Ambulatory Patient Education on 05-27-2017 Ambulatory Patient Education Patient Education MaterialsName: Alvin Boyd Current Date: 05/27/2017 10:03:36 [place]: 1935 [facility]: [id number] following sheet(s) are the Patient Education Leaflets [...] have a lot of pain?Your physician at [facility] will do everything possible [...] procedure. You are required to have a delivery truck driver heavy remain in the facility before and during [...] procedure: Please arrive at: Please check in at:Inpatient Auditor Desk in the Pain Management [id number] [place] [address], 3rd floor [facility] inside the Emergency Room at [address]*Due to the sedation given for the procedure, you will not be permitted to drive until the following day. For this reason, you will need to bring a delivery truck driver heavy to stay with you and drive you [...] Hibiclens (a medicated soap) prior to your surgery.*Alma teeth, rinse with water, but do not swallow.*Please wear comfortable clothing, without metal zippers or snaps. Do not wear contact lenses. Do wear your hearing aid. Please leave all jewelry and valuables at home; you may wear your wedding ring.*Please note that due to limited space, your family member/delivery truck driver heavy will need to wait in the waiting area while you are in the procedure area. Absolutely no children should attend an appointment for an injection.*All prescription refills must be requested in advance. No prescription refills requested on the day of a procedure will be available until at least 3 business days later.*If your procedure is done in [place], you will be receiving a statement from [facility] for the professional (physician's) billing fees and for the technical (hospital's) fees and a separate statement for the anesthesia provider. If your procedure is done in [place], you will be receiving a statement from [facility] for professional (physician's) billing fees, technical [...] questions or concerns, please contact the appropriate office:[facility] ([place] office) [phone] [facility] ([place] office) [phone] follow up appointment is scheduled for:AT:[facility] [address] [facility], 3rd floor [facility], [facility] [address] [facility], [address], [facility] [address], 2nd floor clinic, [facility] [address] [facility]?WHAT TO EXPECT AFTER THE PROCEDURE:Please note [...] increase pain. (for example, bending, twisting, walking, fast food delivery driver).Try to avoid pain medication or sleeping during [...] call the office immediately if noted.Contact stimulator call center support representative with questions regarding stimulator use.(see rep [...] and call office immediately if noted.Contact stimulator call center support representative with questions regarding stimulator use.(see rep [...] drainage and call immediately if noted.Contact stimulator call center support representative with questions regarding stimulator use.(see rep card) Normal [facility] Pain Management Office/Clini c Noteon 05-27-2017 [...] Chiropractor: 11/2016 Date PT: 01/16 Frequency PT: [id number] Effective PT: not much help Comments TENS: [...] created on his/her behalf by a trained nuclear medical tech. The creation of this document is based on the provider?s statements to the nuclear medical tech.Problem List/Past Medical History Ongoing Acid reflux Angina [...] Kendra infante CNP 05/27/2017 10:22 EDT Normal [facility] Vital Signs Date Time Vital Sign Value Performing Clinician Michelle gamez 05-17-2025 09:25-0400 Body height 172.7 cm Amy Daily DPM Work Phone: [facility] 05-17-2025 09:25-0400 Body mass index (BMI) [Ratio] 33.15 kg/m2 Amy Daily DPM Work Phone: [facility] 05-17-2025 09:25-0400 Body weight 98.88 kg Amy Daily DPM Work Phone: [facility] 10-19-2024 09:08-0500 Body height 171.5 cm Amy Daily DPM Work Phone: [facility] 10-19-2024 09:08-0500 Body mass index (BMI) [Ratio] 34.57 kg/m2 Amy Daily DPM Work Phone: [facility] 10-19-2024 09:08-0500 Body weight 101.61 kg Amy Daily DPM Work Phone: [facility] Healthcare Encounters Encounter Date Encounter Type Care Provider Facility Start: 09-04-2025 ambulatory [facility] Start: 08-03-2025 ambulatory [facility] Start: 07-21-2025 ambulatory [facility] Start: 07-10-2025 ambulatory [facility] Start: 06-30-2025 ambulatory [facility] Start: 06-19-2025 End: 06-19-2025 ambulatory [facility] Start: 05-17-2025 End: 05-17-2025 Ramona [facility] I've Beenanalilia Daily DPM Work Phone: [facility] Start: 05-17-2025 End: 05-17-2025 [employer] flowsheet Amy Daily DPM Work Phone: [facility] Start: 05-17-2025 End: 05-17-2025 Patient encounter procedure Amy Daily DPM Work Phone: [facility] Comment on above: Dermatophytosis of n ail (Primary Dx); Dystrophic nail; Pain around toenail, right foot; Pain around toenail, left foot Start: 05-17-2025 End: 05-17-2025 ambulatory AMY DAILY Not Available Start: 05-09-2025 End: 05-09-2025 ambulatory [facility] Start: 04-07-2025 ambulatory [facility] Start: 04-04-2025 ambulatory [facility] Start: 04-03-2025 ambulatory [facility] Start: 03-28-2025 ambulatory [facility] Start: 01-25-2025 End: 01-25-2025 Bamboo flowsheet Amy Daily DPM Work Phone: [facility] Start: 01-25-2025 End: 01-25-2025 Bamboo flowsheet Amy Daily DPM Work Phone: [facility] Start: 01-25-2025 End: 01-25-2025 Patient encounter procedure Amy Daily DPM Work Phone: [facility] Comment on above: Dermatophytosis of n ail (Primary Dx); Dystrophic nail; Pain around toenail, right foot; Pain around toenail, left foot Start: 01-25-2025 End: 01-25-2025 ambulatory AMY DAILY Not Available Start: 11-30-2024 End: 11-30-2024 ambulatory Jose Amado [facility] Work Phone: Start: 11-30-2024 End: 11-30-2024 Departed Referred Jose Amado MD Work Phone: [facility] Start: 11-08-2024 End: 11-08-2024 ambulatory [facility] Start: 10-19-2024 End: 10-19-2024 Bamboo flowsheet Amy Daily DPM Work Phone: [facility] Start: 10-19-2024 End: 10-19-2024 Bamboo flowsheet Amy Daily DPM Work Phone: [facility] Start: 10-19-2024 End: 10-19-2024 Patient encounter procedure Amy Daily DPM Work Phone: [facility] Comment on above: Dermatophytosis of n ail (Primary Dx); Dystrophic nail; Pain around toenail, right foot; Pain around toenail, left foot Start: 10-19-2024 End: 10-19-2024 ambulatory AMY DAILY Not Available Start: 06-29-2024 End: 06-29-2024 ambulatory AMY DAILY Not Available Start: 03-30-2023 End: 04-29-2023 ambulatory NOGUEIRA H FAWWAD Facility:H1 Start: 03-02-2023 End: 03-27-2023 ambulatory NOGUEIRA H FAWWAD Facility:[facility]1 Start: 01-28-2023 End: 02-27-2023 ambulatory NOGUEIRA H FAWWAD Facility:[facility]1 Start: 12-31-2022 End: 01-28-2023 ambulatory NOGUEIRA H FAWWAD Facility:[facility] Start: 12-18-2022 End: 12-18-2022 ambulatory DOMINIQUE JAUREGUI Facility:[facility]1 Start: 12-01-2022 End: 12-31-2022 ambulatory NOGUEIRA H FAWWAD Facility:[facility]1 Start: 11-11-2022 End: 11-12-[address] RIO FREY Facility:[facility]1 Start: 10-30-2022 End: 11-30-2022 ambulatory NOGUEIRA H FAWWAD Facility:[facility]1 Start: 09-30-2022 End: 10-29-2022 ambulatory NOGUEIRA H FAWWAD Facility:[facility]1 Start: 09-01-2022 End: 09-29-2022 ambulatory NOGUEIRA H FAWWAD Facility:[facility]1 Start: 07-31-2022 End: 08-30-2022 ambulatory NOGUEIRA H FAWWAD Facility:[facility] Start: 06-30-2022 End: 07-30-2022 ambulatory NOGUEIRA H FAWWAD Facility:[facility] Start: 05-30-2022 End: 06-27-2022 ambulatory NOGUEIRA H FAWWAD Facility:[facility] Start: 06-24-2019 End: 06-25-2019 Patient encounter procedure RIO FREY Facility:[facility] Start: 06-21-2019 End: 06-27-2019 Patient encounter procedure GERBER PETER Facility:[facility] Start: 04-13-2018 End: 04-14-2018 Ambulatory Rio Frey [facility] Start: 04-06-2018 End: 04-06-2018 Ambulatory RIO FREY Facility:[facility] Start: 03-29-2018 End: 03-30-2018 Ambulatory LEXI MILKASudhakar MORLEY [facility] Start: 03-16-2018 End: 03-17-2018 Ambulatory KENDRA CAST Facility:[facility] Start: 02-19-2018 End: 02-20-2018 Ambulatory RIO FREY Facility:[facility] Start: 01-13-2018 End: 01-13-2018 Ambulatory ROSALEE BAKOS Facility:[facility] Start: 01-06-2018 End: 01-07-2018 Ambulatory [facility] Facility:[facility] Start: 11-09-2017 End: 11-09-2017 Ambulatory ROSALEE BAKOS Facility:[facility] Start: 10-14-2017 End: 10-15-2017 Ambulatory [facility] Facility:[facility] Start: 09-09-2017 End: 09-09-2017 Ambulatory ROSALEE BAKOS Facility:[facility] Start: 08-26-2017 End: 08-26-2017 Ambulatory ROSALEE BAKOS Facility:[facility] Start: 07-29-2017 End: 07-30-2017 Ambulatory [facility] Facility:[facility] Start: 06-29-2017 End: 06-29-2017 Ambulatory ROSALEE BAKOS Facility:[facility] Start: 06-15-2017 End: 06-15-2017 Ambulatory ROSALEE LAYAOS Facility:[facility] Start: 05-27-2017 End: 05-28-2017 Ambulatory [facility] Facility:[facility] Procedures Date Procedure Procedure Detail Performing Clinician Start: 11-30-2024 Gram stain microscopy D micheline Amado MD Work Phone: Plan of Treatment Date Care Activity Detail Author Start: 09-18-2025 End: 09-18-2025 Patient encounter procedure 09/18/2025 9:30 AM EDT Procedure Visit [facility] [address] [place] [phone] Amy Daily DPM [address] [place] [address] [facility] Start: 07-31-2025 Influenza vaccination Influenz a Vaccine (Season Ended) [facility] Start: 05-17-2025 End: 05-17-2025 Patient encounter procedure [facility] Comment on above: Arrived Start: 01-25-2025 End: 01-25-2025 Patient encounter procedure [facility] Comment on above: Arrived Start: 11-30-2024 Aerobic Culture Aerobic [facility] Start: 11-30-2024 Microbial culture of sputum [facility] Start: 10-19-2024 End: 10-19-2024 Patient encounter procedure 10/19/2024 9:15 AM EST Procedure Visit [facility] [address] [place] [phone] Amy Daily DPM [address] [place] [address] Arrived [facility] Comment on above: Arrived Start: 07-31-2024 Influenza vaccination Influenza Vacc ine (#1) [facility] Start: 12-02-2018 Pneumococcal Vaccine : 65+ Years (2 of 2 - PPSV23 or PCV20) Pneumococcal Vaccine: 65+ Years (2 of 2 - PPSV23 or PCV20) [facility] Start: 12-02-2018 Pneumococcal Vaccine : 65+ Years (2 of 2 - PPSV23) Pneumococcal Vaccine: 65+ Years (2 of 2 - PPSV23) [facility] Immunizations Immunization Date Immunization Notes Care Provider Flakita monterroso 11-01-2018 influenza, injectabl e, quadrivalent, preservative free Amy Daily DPMonie Work Phone: [facility] 11-01-2018 influenza virus vacc ine, unspecified formulation Amy Daily DPM Work Phone: [facility] 12-02-2017 pneumococcal conjuga te vaccine, 13 valent Amy Daily DPMonie Work Phone: [facility] 11-03-2017 influenza, injectabl e, quadrivalent, preservative free Amy Daily DPMonie Work Phone: [facility] Payers Date Payer Category Payer Self-pay 2022 Private Health Insurance [employer] [id number] 2001 Medicare 1959 Medicare [id number] 1959 Unknown [id number] 1959 Unknown [id number] 1936 Unknown [id number] 2.16.840.1.829158.3.579.2. 647 1936 Unknown [id number] 2.16.840.1.859953.3.579.2. 647 1936 Unknown [id number] 2.16.840.1.664342.3.579.2. 593 1936 Unknown [id number] 2.16.840.1.311960.3.579.2. 593 1936 Unknown [id number] 2.16.840.1.259463.3.579.2. 593 1936 Unknown [id number] 2.16.840.1.705750.3.579.2. 593 1936 Unknown [id number] 2.16.840.1.466734.3.579.2. 593 1936 Unknown [id number] 2.16.840.1.897870.3.579.2. 593 1936 Unknown [id number] 2.16.840.1.848216.3.579.2. 593 1936 Unknown [id number] 2.16.840.1.896742.3.579.2. 593 1936 Unknown [id number] 2.16.840.1.144564.3.579.2. 593 1936 Unknown [id number] 2.16.840.1.369423.3.579.2. 593 1936 Unknown [id number] 2.16.840.1.120361.3.579.2. 593 1936 Unknown [id number] 2.16.840.1.582213.3.579.2. 593 1936 Unknown [id number] 2.16.840.1.743745.3.579.2. 593 1936 Unknown [id number] 2.16.840.1.206783.3.579.2. 1259 1936 Unknown [id number] 2.16.840.1.610531.3.579.2. 1259 1936 Unknown [id number] 2.16.840.1.469772.3.579.2. 1259 1936 Unknown [id number] 2.16.840.1.862091.3.579.2. 1259 Medicare [id number] Unknown [facility] [id number] Unknown [id number] 2.16.840.1.636136.3.579.2. 531 Social History Date Type Detail Facility Start: 11-16-2023 Tobacco smoking stat [facility] Ex-smoker [facility] History of tobacco use Current smoker [facility] History of tobacco use Cigarette Smoker [facility] Start: 11-16-2023 Tobacco use and exposure Smokeless tobacco non-user [facility] Start: 06-29-2024 End: 05-17-2025 Alcoholic beverage intake Lifetime non-drinker (finding) [facility] Start: 06-29-2024 End: 05-17-2025 History of Social function [facility] Start: 06-29-2024 End: 05-17-2025 Tobacco use panel [facility] Start: 07-30-2023 Alcohol Comment Caffeine intake: non e [facility] Start: 1935 Sex assigned at Not on file [facility] Tobacco smoking stat [facility] Unknown if ever smoked [facility] Work Phone: Start: 12-01-2024 Sex Male (finding) [facility] Start: 1935 Sex Assigned At Male F [facility] Progress note 06-19-2025 Note Date & Type Note Facility 06-19-2025 Note [facility] Subjective Alvin Boyd is a 89 y.o. year old male patient being seen for 1 year follow up pace had pacer check recently. 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 Dizziness and giddiness DVT (deep venous thrombosis) ([facility]) History of cardiovascular disorder Chronic disease of cardiovascular system Encounter for long-term (current) use of insulin ([facility]) Hyperlipidemia Mitral valve disorder Morbid obesity with BMI of 40.0-44.9, adult ([facility]) Osteoarthritis of right hip Pulmonary embolism ([facility]) Right knee DJD CAD S/P percutaneous coronary angioplasty Implantable cardioverter-defibrillator (ICD) in situ No family history on file. Social History Tobacco Use Smoking status: Former Current packs/day: 0.00 Types: Cigarettes Start date: 1966 Quit date: 1984 Years since quittin.5 Smokeless tobacco: Never Substance Use Topics Alcohol use: Not Currently Drug use: Never JUVE Alvin is seen in follow up. He is a 89 yo man with prior history of permanent AF, CAD SP stenting of LAD and RCA last in 2012, s/p pacemaker in the past became dependent on it, developed chronic systolic heart failure and underwent upgrade to a BiV pacer (no ICD) in 2017, recovered EF on follow up. He has COPD and uses nebulizer. He was admitted in November 2024 to [facility] with community-acquired pneumonia and congestive heart failure was treated with IV antibiotics and aerosol treatments as well as diuretic therapy. He currently reports that his shortness of breath is at baseline. NYHA class II-III. He has no significant lower extremity edema. He denies chest pain. No palpitations. No bleeding with warfarin. No falls. Review of Systems Cardiovascular: Positive for dyspnea on exertion. Respiratory: Positive for shortness of breath. Musculoskeletal: Positive for arthritis. Objective Visit Vitals BP 133/79 (BP Location: Right arm, Patient Position: Sitting) Pulse 61 Ht 1.753 m (5' 9 ) Wt 98 kg (216 lb) SpO2 98% BMI 31.90 kg/m??? Smoking Status Former BSA 2.18 m??? Physical Exam Constitutional: Appearance: He is [...] day by oral route., Disp: , Rfl: cholecalciferol (Vitamin D-3) 25 MCG (1000 UT) capsule, Take 1,000 Units by mouth in the morning., Disp: , Rfl: DULoxetine (Cymbalta) [address] capsule, Take 30 mg by mouth in the morning., Disp: , Rfl: ferrous sulfate 325 (65 Fe) MG EC tablet, Take 1 tablet by mouth in the morning., Disp: , Rfl: furosemide (Lasix) 40 mg tablet, PRN for LE edema (Patient taking differently: Take 20 mg by mouth in the morning.), Disp: , Rfl: hydroCHLOROthiazide 12.5 mg tablet, Take 12.5 mg by mouth 2 times daily., Disp: , Rfl: montelukast (Singulair) 10 mg tablet, , Disp: , Rfl: nitroglycerin (Nitrostat) 0.4 mg SL tablet, place 1 tab under tongue at the beginning of chest pain. May repeat every 5 minutes if pain persists. Do not repe (more content not included)... [facility] History of Present illness Narrative 05-17-2025 Amy Daily, AURELIANO - 05/17/2025 9:30 AM EDT Note Date & Type Note Facility 05-17-2025 History of Presen t illness Narrative Images from the original note were not included. Subjective Patient ID: Alvin Boyd is a 89 y.o. male who presents for Toenail Care (Pt is here today requesting nail care, he states the nails are becoming painful for him./SS: 12-2E). HPI HPI Onychomycosis/Toenail Fungus: Presents requesting nail [...] Treatment: Palliative care as noted. Risk factors: Medical comorbidities. Polypharmacy. ASA therapy. Flexibility, mobility and dexterity restraints. toenail [...] mg by mouth Daily, Disp: , Rfl: hydrALAZINE (Apresoline) 10 MG tablet, 10 mg in the morning and 10 mg at noon and 10 mg in the evening and 10 mg before bedtime. (Patient not taking: Reported on 01/25/2025), Disp: , Rfl: hydroCHLOROthiazide (HYDRODiuril) 12.5 MG tablet, 12.5 mg (Patient not taking: Reported on 01/25/2025), Disp: , Rfl: Jantoven 4 MG tablet, 4 mg, Disp: , Rfl: losartan (Cozaar) 25 MG tablet, 25 mg 1 (one) time each day at the same time (Patient not taking: Reported on 01/25/2025), Disp: , Rfl: montelukast (Singulair) 10 MG tablet, , Disp: , Rfl: Multiple Vitamins-Minerals (EYE VITAMINS PO), Take by mouth, Disp: , Rfl: omeprazole (PriLOSEC) [address] capsule, 40 mg, Disp: , Rfl: ondansetron (Zofran) 4 MG tablet, , Disp: , Rfl: potassium chloride CR (Klor-Con M20) 20 MEQ ER tablet, Take 20 mEq by mouth Daily, Disp: , Rfl: sacubitril-valsartan (Entresto) 49-51 MG tablet, Take 1 tablet by mouth in the morning and 1 tablet before bedtime., Disp: , Rfl: sucralfate (Carafate) 1 g tablet, 1 g, Disp: , Rfl: Allergies Patient has no [...] balance shoes. Vascular: DORSALIS PEDIS PULSE: bilaterally, 1/4 . POSTERIOR TIBIAL PULSE: bilaterally, 1/4 . [...] are noted. NAIL PATHOLOGY: Bilateral great toes: DSO/pincer deformity: Toenail dystrophy, elongation, discoloration, thickening, distal [...] and knee endoprosthesis by history. Mini stroke syndrome by history; April 2021 Plan: Notes: Patient remains well [...] Amy Daily DPM documented in this encounter [facility] History of Present illness Narrative 01-25-2025 Amy [...] Amy Daily DPM documented in this encounter [facility] Healthcare Instructions 01-25-2025 Patient Instructions Note Date & Type Note Facility 01-25-2025 Instructions Amy Daily DPM - 01/25/2025 9:30 AM EST As noted documented in this encounter [facility] History of Present illness Narrative 10-19-2024 [...] Amy Daily DPM documented in this encounter [facility] Evaluation note Note Date & Type Note Facility Evaluation note Diagnosis Dermatophytosis of nail- Primary Dystrophic nail Other specified disease of nail Pain around toenail, right foot Pain around toenail, left foot documented in this encounter [facility] Evaluation note Note Date & Type Note Facility Evaluation note No assessment information availa [facility] Work Phone: Evaluation note Note Date & [...] section and content) DATE CREATED AUTHOR 05/19/2018 [facility] DATE CREATED AUTHOR AUTHOR'S ORGANIZ ATION 06/19/2020 [facility] DATE CREATED AUTHOR AUTHOR'S ORGANIZ ATION 05/08/2023 [facility] DATE CREATED AUTHOR AUTHOR'S ORGANIZ ATION 12/09/2024 [facility] DATE CREATED AUTHOR AUTHOR'S ORGANIZ ATION 05/20/2025 [facility] EPIC DATE CREATED AUTHOR AUTHOR'S ORGANIZ ATION 09/06/2025 [facility] Care Teams (unrecognized sec tion and content) Supervisor Spinning Relationship Specialty Start Date End Date Rio Frey MD [address] [place] [address] PCP - General Internal Medicine 07/29/23 Supervisor Spinning Relationship Specialty Start Date End Date Rio Frey MD [address] [place] [address] PCP - General Internal Medicine 07/29/23 Team Status: Inactive Member Role Status Dates Jose Amado MD Attending Provider Active Sta rt: November 30, 2024 End: November 30, 2024 Supervisor Spinning Relationship Specialty Start Date End Date Rio Frey MD [facility] [place] [address] PCP - General Internal Medicine 07/29/23 Supervisor Spinning Relationship Specialty Start Date End Date Rio Frey MD [address] [facility] [place] [address] PCP - General Internal Medicine 07/29/23 Supervisor Spinning Relationship Specialty Start Date End Date Rio Frey MD [facility], [place] [id number] PCP - General Internal Medicine 07/29/23 Reason for Visit (unrecogniz ed section and content) Reason Comments Toenail Care Reason Comments Toenail Care Pt is here today req uesting nail care, he states the nails are becoming painful for him.SS: 12-2E Goals (unrecognized section and content) Goals may [...] BE BASED ON THE PRIMARY CLINICAL RECORDS. [employer] provides no warranty or guarantee of the accuracy or completeness of information in this document.
--- OUTSIDE RECORDS SUMMARY | 2025-09-16 20:54 | XMS_ITS | Encounter Summary ---
Author Organization [facility] Address [address] [place] [address] Care Team Providers Care Head Char Filter Tank Tender Name Role Phone Rio Frey MD Primary Care Provider [phone] Encounter Details Date Type Department Care Team (Late st Contact Info) Description 05/12/2025 Orders Only [facility] [address] [place] [address] Juan Bauer MD [address] [place] [address] Social History Tobacco Use Types Packs/Day Years Used Date Smoking Tobacco: Former Cigarettes 7 1984 Smokeless Tobacco: Never [place] Safety & Environment Answer Date Rec orded [...] on filedocumented in this encounter Care Teams Head Char Filter Tank Tender Relationship Specialty Start Date End Date Rio Frey MD [facility] [place] [address] PCP - General 10/22/22 documented as of this encounter
--- OUTSIDE RECORDS SUMMARY | 2025-09-16 20:54 | XMS_ITS | Encounter Summary ---
Author Organization [facility] Address [address] [place] [address] Care Team Providers Care Customer Support Advisor Name Role Phone Rio Frey MD Primary Care Provider [phone] Encounter Details Date Type Department Care Team (Late st Contact Info) Description 09/01/2025 Orders Only [facility] [address] [place] [address] Volodymyr Knott MD [address] [place] [address] Social History Tobacco Use Types Packs/Day Years Used Date Smoking Tobacco: Former Cigarettes 7 1984 Smokeless Tobacco: Never Alcohol Use Standard Drinks/Week Comments Not Currently [...] - PACEMAKER Routine 09/01/2025 12:00 AM EDT documented in this encounter Results * Cardiac device check - Remote pacemaker (09/01/2025 12:00 AM EDT) Anatomical Region Laterality Modality Other 09/01/2025 Volodymyr Knott MD CV IMPLANTABLE CARDIAC DEVICE TX OCEDURES Final Result documented in this encounter Visit Diagnoses Not on filedocumented in this encounter Care Teams Customer Support Advisor Relationship Specialty Start Date End Date Rio Frey MD [address] [place] [address] PCP - General 10/22/22 documented as of this encounter
--- OUTSIDE RECORDS SUMMARY | 2025-09-16 20:54 | XMS_ITS | Encounter Summary ---
Author Organization [facility] Address [address] [place] [address] Care Team Providers Care Behavioral Technician Name Role Phone Rio Frey MD Primary Care Provider [phone] Encounter Details Date Type Department Care Team (Latest Contact Info) Description 09/15/2025 Travel Social History Tobacco Use Types Packs/Day Years Used Date Smoking Tobacco: Former Cigarettes Smokeless Tobacco: Never Alcohol Use Standard Drinks/Week Comments Never 0 [...] EDT Procedure Visit [facility] [address] [place] [phone] Cornell Daily DPM [address] [place] [address] documented as of this encounter Visit Diagnoses Not on filedocumented in this encounter Care Teams Behavioral Technician Relationship Specialty Start Date End Date Rio Frey MD [address] [place] [address] [place], [place] [phone] PCP - General Internal Medicine 07/29/23 documented as of this encounter
--- OUTSIDE RECORDS SUMMARY | 2025-09-16 20:54 | XMS_ITS | Clinical Summary ---
Author Organization [facility] Address [address] [place] [address] Care Team Providers Care Layboy Tender Name Role Phone Rio Frey MD [...] Encounters Date Type Department Care Team Description 09/15/2025 Travel from Last 3 Months Immunizations Immunization [...] Procedure Visit [facility] [address] [place] [phone] Cornell Daily DPM [address] [place], [place] [phone] Health Maintenance Due Date Last Done Comments Pneumococcal Vaccine: 65+ Ye ars (2 of 2 - PCV20 or PCV21) 12/02/2018 12/02/2017 Influenza Vaccine (#1) 2025 11/01/2018, 2016 Insurance MEDICARE [facility] Care Teams Layboy Tender Relationship Specialty Start Date End Date Rio Frey MD [facility] [place] [address] PCP - General Internal Medicine 07/29/23
--- NOTE | 2025-09-16 21:00 | XR_ITS ---
The [address] [address] Patient Name: ALVIN BOYD MRN: [id number] date: 1935 Sex: M Assigned Patient Location: ED.MAIN Current Patient Location: Accession/Order Number: [id number] Exam Date: 09/16/2025 21:10 Report Date: 09/17/2025 08:23 At the request of: NAEEM LOMELI MD Procedure: XR chest 1V XR chest 1V 09/16/2025 9:19 PM SIGNS AND SYMPTOMS: ^short of breath PROTOCOL: Frontal radiograph of the chest COMPARISON: 11/29/2024 FINDINGS: The trachea is midline. There is a 3-lead pacer device on the left. There is cardiomegaly. There is perihilar vascular prominence with bibasilar airspace opacities and small pleural effusions. Degenerative changes are noted in the shoulders and thoracic spine. The bony thorax is intact. XR/XR chest 1V IMPRESSION: Findings are consistent with congestive heart failure. Impression dictated by: Td Rodriguez M.D. 09/17/2025 8:23 AM Dictation [facility] Electronically authenticated by: [id number] Y Date: 09/17/2025 08:23
--- NOTE | 2025-09-16 21:02 | ECG_ITS ---
The [facility] Test Date: 2025-09-16 Pat Name: ALVIN BOYD Department: Room: - Gender: Male Quality Lead: : 1935 Requested By: [id number] Order Number: [id number] Reading MD: PARISA SOLARES M.D. Measurements Intervals [place] Rate: 61 P: -[id number] GA: -66569 QRS: -39 QRSD: 102 T: 42 QT: 428 QTc: 191 Interpretive Statements [id number] Electronic ventricular pacemaker Biventricular pacemaker detected Underlying atrial fibrillation abnormal ECG Compared to ECG 11/29/2024 21:02:33 No significant changes Electronically Signed On 09-17-2025 11:05:20 EDT by PARISA SOLARES M.D.
--- NOTE | 2025-09-16 21:02 | ED.SOB1 ---
HPI - SOB/Dyspnea General Chief Complaint: Shortness of Breath/Dyspnea Stated Complaint: SOB Time Seen by Provider: 09/16/25 21:00 Source: patient Mode of arrival: ambulance History of Present Illness HPI Narrative: past history of COPD and CHF. presents from home with abrupt onset of shortness of breath with exertion. No associated chest pain. Squad found pulse ox 90s RA. Placed on 2L NC and transferred to ED. No chest pain or fever. Mild cough. No nausea Related Data Home Medications ?Medication ?Instructions ?Recorded ?Confirmed atorvastatin 40 mg tablet 40 mg PO .QHS 11/26/23 11/30/24 carvedilol 12.5 mg tablet 12.5 mg PO BID 11/26/23 11/30/24 duloxetine 30 mg capsule,delayed 30 mg PO .qhs 11/26/23 11/30/24 release montelukast 10 mg tablet 10 mg PO DAILY 11/26/23 11/30/24 omeprazole 40 mg capsule,delayed 40 mg PO DAILY 11/26/23 11/30/24 release warfarin 4 mg tablet (Jantoven) 4 mg PO DAILY 11/26/23 11/30/24 ferrous sulfate 325 mg (65 mg 325 mg PO DAILY 11/30/24 11/30/24 iron) tablet (Feosol) potassium chloride 20 mEq 20 meq PO DAILY 11/30/24 11/30/24 tablet,extended release(part/cryst) sacubitril 49 mg-valsartan 51 mg 1 tab PO BID 11/30/24 11/30/24 tablet (Entresto) sucralfate 1 gram tablet 1 g PO BID@1200,2200 11/30/24 11/30/24 Previous Rx's ?Medication ?Instructions ?Recorded cefdinir 300 mg capsule 600 mg (2 x 300 mg) PO DAILY #20 12/01/24 caps furosemide 20 mg tablet (Lasix) 20 mg PO DAILY #30 tabs 12/01/24 Allergies Allergy/AdvReac Type Severity Reaction Status Date / Time No Known Drug Allergies Allergy Verified 11/26/23 18:11 Review of Systems ROS Status of ROS 10 or more systems reviewed and unremarkable except as noted in history and below [facility] Medical History (Updated 09/16/25 @ 22:09 by Oniel Gupta MD) Congestive heart failure ?I50.9 - Heart failure, unspecified (ICD-10) Community acquired pneumonia ?J18.9 - Pneumonia, unspecified organism (ICD-10) Paroxysmal atrial fibrillation ?I48.0 - Paroxysmal atrial fibrillation (ICD-10) COPD exacerbation ?J44.1 - Chronic obstructive pulmonary disease with (acute) exacerbation (ICD-10) CAD (coronary artery disease) ?I25.10 - Atherosclerotic heart disease of [place] coronary artery without angina pectoris (ICD-10) H/O deep venous thrombosis ?Z86.718 - Personal history of other venous thrombosis and embolism (ICD-10) 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) ?I50.32 - Chronic diastolic (congestive) heart failure (ICD-10) Fever ?R50.9 - Fever, unspecified (ICD-10) D-dimer, elevated ?R79.89 - Other specified abnormal findings of blood chemistry (ICD-10) Hypoxemia ?R09.02 - Hypoxemia (ICD-10) Afib ?I48.91 - Unspecified atrial fibrillation (ICD-10) HLD (hyperlipidemia) ?E78.5 - Hyperlipidemia, unspecified (ICD-10) Depression ?F32.A - Depression, unspecified (ICD-10) CHF (congestive heart failure) ?I50.9 - Heart failure, unspecified (ICD-10) Stroke ?I63.9 - Cerebral infarction, unspecified (ICD-10) Heart attack ?I21.9 - Acute myocardial infarction, unspecified (ICD-10) DVT (deep venous thrombosis) ?I82.409 - Acute embolism and thrombosis of unspecified deep veins of unspecified lower extremity (ICD-10) Cataract (lens) fragments in eye following cataract surgery ?H59.029 - Cataract (lens) fragments in eye following cataract surgery, unspecified eye (ICD-10) Pacemaker ?Z95.0 - Presence of cardiac pacemaker (ICD-10) Surgical History (Updated 11/26/23 @ 21:23 by Demond Lagos) History of heart artery stent ?Z95.5 - Presence of coronary angioplasty implant and graft (ICD-10) Hx of total knee arthroplasty ?Z96.659 - Presence of unspecified artificial knee joint (ICD-10) H/O total hip arthroplasty ?Z96.649 - Presence of unspecified artificial hip joint (ICD-10) Social History (Updated 11/26/23 @ 22:25 by Jennifer Gloria) Within the past year, how often did you have a drink containing alcohol: never Score interpretation: A score less than 4 is consistent with normal alcohol consumption. Smoking status: Former smoker Non-prescribed substance use: denies use Previous occupational history: retired Highest level of school completed/degree received: high school graduate Are you now , , , , never or living with a partner: In a typical week, how many times do you talk on the telephone with family, friends, or neighbors: 3 or more times per week How often do you get together with friends or relatives: 3 or more times per week How often do you attend alevism or mandaeism services: 1-3 times per year Little interest or pleasure in doing things: not at all Feeling down, depressed, or hopeless: not at all Feel stressed/tense/nervous/anxious/difficulty sleeping: not at all Do you think of yourself as: straight/heterosexual Gender Identity: male Exam Constitutional Vital Signs, click to edit/add: Last Vital Signs Temp 98.3 F 09/16/25 20:50 Pulse 61 09/17/25 00:30 Resp 15 09/16/25 22:30 BP 119/71 09/17/25 00:30 Pulse Ox 92 L 09/17/25 00:30 O2 Del Method Room Air 09/16/25 20:50 Common normals: no apparent distress (conversational dyspnea), oriented x3, alert and well nourished HENNH Common normals: normocephalic and head/scalp atraumatic Eye Common normals: PERRL, EOMs intact bilaterally and conjunctivae normal Respiratory Common normals: normal respiratory effort, no retractions and no use of accessory muscles Cardio Common normals: regular rate, regular rhythm, S1 normal heart sound and S2 normal heart sound GI Common normals: Normal to inspection, nondistended, normoactive bowel sounds present, soft to palpation and non-tender Extremity Common normals: normal to inspection and full ROM Neuro Common normals: oriented x3, CN's II-XII intact bilaterally and moves all extremities Psych Appearance: grossly normal Course Vital Signs Vital signs: Vital Signs Temperature 98.3 F 09/16/25 20:50 Pulse Rate 70 09/16/25 20:50 Respiratory Rate 26 H 09/16/25 20:50 Blood Pressure 126/60 10/18/25 20:50 Pulse Oximetry 93 L 09/16/25 20:50 Oxygen Delivery Method Room Air 09/16/25 20:50 Temperature 98.3 F 09/16/25 20:50 Pulse Rate 61 09/17/25 00:30 Respiratory Rate 15 09/16/25 22:30 Blood Pressure 119/71 09/17/25 00:30 Pulse Oximetry 92 L 09/17/25 00:30 Oxygen Delivery Method Room Air 09/16/25 20:50 MDM - SOB/Dyspnea MDM Narrative Medical decision making narrative: past history of CHF and COPD. Developed acute onset of shortness of breath tonight. Jonel worse with exertion. No chest pain. Arrives via squad in no distress. Chest exam unremarkable. cxray with pulm vascular congesttion. EKG paced rhythm. labs returned with troponin 51080 and BNP elevated at 7379. Patient and family informed of the diagnosis of MA. Discussed with [employer] Dr Lewis at [facility] as patient is followed by [facility] cardiology. He recommends ASA at this time but no heparin. Patient and family informed of the above. lasix IV ordered as well Lab Data Labs: Lab Results 09/16/25 Range/Units 21:00 WBC 13.8 H (4.0-11.0) 10^3/uL RBC 4.14 L (4.70-6.10) 10^6/uL Hgb 13.2 L (14.0-18.0) g/dL Hct 40.4 L (42.0-54.0) % MCV 97.6 H (80.0-94.0) fL MCH 31.9 (25.9-34.0) pg MCHC 32.7 (29.9-35.2) g/dL RDW 13.3 (11.0-15.0) % Plt Count 223 (150-450) 10^3/uL MPV 10.3 (9.5-13.5) fL Neut % (Auto) 82.0 H (43.0-75.0) % Lymph % (Auto) 10.3 L (20.5-60.0) % Robertson % (Auto) 6.2 (1.7-12.0) % Eos % (Auto) 0.7 L (0.9-7.0) % Baso % (Auto) 0.4 (0.2-2.0) % Neut # (Auto) 11.3 H (1.4-6.5) 10^3/uL Lymph # (Auto) 1.4 (1.2-3.8) 10^3/uL Robertson # (Auto) 0.9 H (0.3-0.8) 10^3/uL Eos # (Auto) 0.1 (0.0-0.7) 10^3/uL Baso # (Auto) 0.1 (0.0-0.1) 10^3/uL Abs Immat Gran (auto) 0.05 H (0.00-0.03) 10^3/uL Imm/Tot Granulo (auto) 0.4 (0.0-0.5) % PT 18.8 H (9.0-11.6) sec INR 1.89 Sodium 139 (136-145) mmol/L Potassium 4.3 (3.5-5.1) mmol/L Chloride 102 (98-107) mmol/L Carbon Dioxide 21.0 (21.0-32.0) mmol/L Anion Gap 20.3 BUN 34.0 H (7.0-18.0) mg/dL Creatinine 1.35 H (0.70-1.30) mg/dL Est GFR ( Amer) >60 (>=60 mL/min/1.73m^2) Est GFR (Non-Af Amer) 50 L (>=60 mL/min/1.73m^2) BUN/Creatinine Ratio 25.2 Glucose 167 H (74-106) mg/dL Calcium 9.5 (8.5-10.1) mg/dL Troponin I High Sens 63465.9 H* (4.0-76.1) pg/mL NT-Pro-B Natriuret Pep 7379.0 H* (<=1800.0) pg/mL Discharge Plan Discharge Chief Complaint: Shortness of Breath/Dyspnea Clinical Impression: Congestive heart failure, Non-ST elevation MA (NSTEMI) Patient Disposition: [facility] Discharge Date/Time: 09/17/25 01:11
[2025-09-16 21:23] LABS: Hematocrit 40.4 % (42.0-54.0); Hemoglobin 13.2 g/dL (14.0-18.0); Immature Granulocytes Abs Auto 0.05 10^3/uL (0.00-0.03); Immature Granulocytes Pct Auto 0.4 % (0.0-0.5); Lymphocytes Absolute Auto 1.4 10^3/uL (1.2-3.8); Mean Corpuscular HGB Conc 32.7 g/dL (29.9-35.2); Mean Corpuscular Hemoglobin 31.9 pg (25.9-34.0); Mean Corpuscular Volume 97.6 fL (80.0-94.0); Platelet Count 223 10^3/uL (150-450); Red Blood Count 4.14 10^6/uL (4.70-6.10); White Blood Count 13.8 10^3/uL (4.0-11.0)
[2025-09-16 21:34] LABS: INR 1.89; Prothrombin Time 18.8 sec (9.0-11.6)
[2025-09-16 21:41] LABS: Anion Gap 20.3; Blood Urea Nitrogen 34.0 mg/dL (7.0-18.0); Calcium 9.5 mg/dL (8.5-10.1); Carbon Dioxide 21.0 mmol/L (21.0-32.0); Chloride 102 mmol/L (98-107); Estimated GFR (African America >60 (>=60 mL/min/1.73m^2); Estimated GFR (Non-African Ame 50 (>=60 mL/min/1.73m^2); Glucose 167 mg/dL (74-106); Potassium 4.3 mmol/L (3.5-5.1); Sodium 139 mmol/L (136-145)
[2025-09-16 21:43] LABS: NT Pro B Type Natriuretic Pept 7379.0 pg/mL (<=1800.0)
[2025-09-16] MEDS: FUROSEMIDE 40 MG/4 ML VIAL IVP (22:30)
[2025-09-16] MEDS: ASPIRIN 325 MG TABLET PO (22:30)
[2025-09-17] VITALS: BP 135/83; PULSE 60; O2SAT 92
[2025-09-17 00:30] VITALS: BP 119/71; PULSE 61; O2SAT 92
--- NOTE | 2025-09-17 01:03 | PC.NURSE ---
[facility] arrives at this time.
--- NOTE | 2025-09-17 01:10 | PC.NURSE ---
Report called to MARYAN Blum at [facility].
== END 2025-09-17 01:11 | disposition short-term general hospital (02) ==
PROVIDERS: Emergency Provider Internal Medicine; PCP Internal Medicine
DX: I21.4 Non-ST elevation (NSTEMI) myocardial infarction (principal); I50.9 Heart failure, unspecified; J44.9 Chronic obstructive pulmonary disease, unspecified; Z87.891 Personal history of nicotine dependence; R06.02 Shortness of breath
CPT/HCPCS: 36415; 71045; 80048; 83880; 84484; 85025; 85610; 93005; 96374; 99285; J1938

== ENCOUNTER 2025-09-28 13:05 | Outpatient (OUT) | payer MEDICARE, SELFPAY ==
--- OUTSIDE RECORDS SUMMARY | 2025-09-17 02:26 | XMS_ITS | Encounter Summary ---
Author Organization [facility] Address [address] [place] [address] Care Team Providers Care [employer] Name Role Phone Rio Frey MD Primary Care Provider [phone] Reason for Referral * (Routine) - Pending ReviewSpecialtyDiagnoses / ProceduresReferred By Contact Referred To Contact Procedures ECG 12 lead Salo Cmapbell MD [address] [facility] [place] [address] Phone: tel: fax: Referral IDStatusReasonStart DateExpiration DateVisits RequestedVisits [id number] [id number]/ * Consultation (Routine) - ClosedSpecialtyDiagnoses / ProceduresReferred By ContactReferred To ContactCardiopulmonary Rehab / CardioPulmonary Rehab Diagnoses S/P drug eluting coronary stent placement Procedures GA OFFICE/OUTPATIENT [facility] 60 MINUTES Salo Campbell MD [address] [place] [place] [address] Phone: tel: fax: [facility] [address] [place] [address] [place] [address] Phone: tel: fax: Referral IDStatusReasonStart DateExpiration DateVisits RequestedVisits [id number] Specialty Services Required 10/21/109889/ * (Routine) - Pending ReviewSpecialtyDiagnoses / ProceduresReferred By Contact Referred To Contact Procedures ECG 12 lead Luna Kimble MD [address] [place] [address] Phone: tel: fax: Referral IDStatusReasonStart DateExpiration DateVisits RequestedVisits [id number] Reason for Visit * Auth/Cert (Routine)SpecialtyDiagnoses / ProceduresReferred By ContactReferred To Contact Diagnoses NSTEMI (non-ST elevated myocardial infarction) ([facility]) NSTEMI Procedures NO CODED SERVICE Perri Boland MD [address] [place] [address] Phone: tel: fax: [address] [address] Phone: tel: fax: Referral IDStatusReasonStart DateExpiration DateVisits RequestedVisits [id number] Encounter Details DateTypeDepartmentCare Team (Latest Contact Info)Ahwlwbbzjfi00/19/2025 2:26 AM EDT - 09/20/2025 4:21 PM EDTHospital Encounter [facility] [address] [place] [phone] Reilly Bowen MD [address] [place] [phone] Cr Dial MD [address] [place] [address] Carlton Angulo MD [address] [place] [address] Bette Vargas DO [address] [place] [address] Mary De Anda MD [address] [place] [phone] Perri Boland MD [address] [place], [place] [phone] NSTEMI (non-ST elevated myocardial infarction) (CMS/HCC) (Primary Dx); S/P drug eluting coronary stent placement; Chronic atrial fibrillation (CMS/HCC) Discharge Disposition: Home or Self Care () Social History Tobacco UseTypesPacks/DayYears UsedDateSmoking Tobacco: LauqspVcuqogeznq6212 - 1984Smokeless Tobacco: NeverAlcohol UseStandard Drinks/WeekCommentsNot Currently 0 (1 standard drink = 0.6 oz pure alcohol)[facility] UtilitiesAnswerDate RecordedIn the past 12 months has the electric, gas, oil, or water [employer] threatened to shut off services in your home?No09/17/2025Humiliation, Afraid, Rape, and Kick questionnaireAnswerDate RecordedWithin the last year, have you been afraid of your partner or ex-partner?No09/17/2025Emotionally AbusedNot on file09/17/2025 Physically AbusedNot on file09/17/2025Sexually AbusedNot on file09/17/2025 Overall Financial Resource Strain (CARDIA)AnswerDate RecordedHow hard is it for you to pay for the very basics like food, housing, medical care, and heating?Not hard at all09/17/2025TransportationAnswerDate RecordedIn the past 12 months, has lack of transportation kept you from medical appointments or from getting medications?No09/17/2025Lack of Transportation (Non-Medical)Not on file 09/17/2025Housing Stability Vital SignAnswerDate RecordedIn the last 12 months, was there a time when you were not able to pay the mortgage or rent on time?No 09/17/2025Number of Times Moved in the Last YearNot on file09/17/2025t any time in the past 12 months, were you homeless or living in a long-term (including now)? No09/17/2025Hunger Vital SignAnswerDate RecordedWithin the past 12 months, you worried that your food would run out before you got the money to buymore.Never true09/17/2025Ran Out of Food in the Last YearNot on file09/17/2025Sex and Gender InformationValueDate RecordedSex Assigned at KpakwWlhd18/09/2025 2:41 PM EDTLegal JkfMvbk9705/28/2022 10:25 PM EDTGender GpzbbresAtpn59/09/2025 2:41 PM EDT Sexual OrientationHeterosexual or Pdnqxudr27/09/2025 2:41 PM EDTdocumented as of this encounter Last Filed Vital Signs Vital SignReadingTime TakenCommentsBlood Cpxugfng962/7109/20/2025 3:05 PM EDT Vmqlq951609/20/2025 3:05 PM RUXEntrlsoqmlk10.6 ??C (97.9 ??F)09/20/2025 3:05 PM EDTRespiratory Slgb9891 3:05 PM EDTOxygen Cdoglzgvte58%09/20/2025 3:05 PM EDTInhaled Oxygen Concentration--Mgbhqw09.2 kg (214 lb 3.2 oz)09/20/2025 4:32 AM XVWApzsyx173.7 cm (5' 8 )09/17/2025 2:46 AM EDTBody Mass Index32.5709/17/2025 2:46 AM EDTdocumented in this encounter Functional Status * Contreras Fall RiskQuestionAnswerDate of AssessmentAuthorHistory of Falling, Immediate or Within 3 Kadqts666/22/2025 8:00 AM Olivia Shaver, RN Secondary Hakkqvinn7127/22/2025 8:00 AM Olivia Shaver, RNAmbulatory Aid15 09/20/2025 8:00 AM Olivia Shaver RNIntravenous Therapy/Heparin Lock20 09/20/2025 8:00 AM Olivai Shaver, MARYANGait/Ziqgekrsrgqw1430/22/2025 8:00 AM Olivia Shaver, RNMental Yjvqhi383/22/2025 8:00 AM Olivia Shaver RN Contreras Fall Risk Pcbsh657209/20/2025 8:00 AM Olivia Shaver, RN * Lorenzo ScaleQuestionAnswerDate of AssessmentAuthorBraden No Risk Interventions Continue to assess patient according to level of care09/20/2025 8:15 AM Olivia Oscar, RNSensory Peoipetfnfv193/22/2025 8:15 AM Olivia Shaver, XUJrzstnly451/22/2025 8:15 AM Olivia Shaver, MGDoytqdby035/22/2025 8:15 AM Olivia Shaver, ZFExnnbqsq692/22/2025 8:15 AM Olivia Shaver, RN Xrlhyxxut662/22/2025 8:15 AM Olivia Shaver, RNFriction and Shear3 09/20/2025 8:15 AM Olivia Shaver RNBraden Scale Mfrkl869709/20/2025 8:15 AM Olivia Shaver, RN * [place] Fall Risk InterventionsQuestionAnswerDate of AssessmentAuthor [place] Fall Risk BpewyhaxxspwuVjzqjyck48/22/2025 8:00 AM Olivia Shaver, RN * Pain Assessment TimerQuestionAnswerDate of AssessmentAuthorRestart Pain Assessment OjtveSdr68/22/2025 1:31 PM Paula Love, KULDIP * Sepsis Model ScoresQuestionAnswerDate of AssessmentAuthorEarly Detection of Sepsis Score0.9209/20/2025 4:15 PM Bekah LiangqEarly Detection of Sepsis Score0.210 4:15 PM Bekah Liangq * Pain AssessmentQuestionAnswerDate of AssessmentAuthorPain Interventions Sknvmqkb97/22/2025 8:15 AM Olivia Shaver, RNPatient's Stated Pain GoalNo pain09/20/2025 8:15 AM Olivia Shaver RNPain AssessmentNo/denies pain 09/20/2025 1:31 PM Paula Love PTA * Audit Alcohol ScreeningQuestionAnswerDate of AssessmentAuthorHow often do you have a drink containing alcohol? 2:42 AM Margie Bledsoe RN How many standard drinks containing alcohol do you have on a typical day?No 09/17/2025 2:42 AM Margie Bledsoe RNHow often do you have six or more drinks on one occasion? 2:42 AM Margie Bledsoe RNAudit-C Xavwy923 2:42 AM Margie Bledsoe RN * QuestionAnswerDate of LgxaiecvvbBvmdeqSX417/7109/20/2025 3:05 PM Olivia Shaver RNPulse6009/20/2025 3:05 PM Olivia Shaver RNHeart Rate Source Lmqkqcy3909/20/2025 3:05 PM Olivia Shaver RNPaticaleb PositionLying 09/20/2025 3:05 PM Olivia Shaver RN * Deterioration Index ScoreQuestionAnswerDate of AssessmentAuthorDeterioration Index Score31.6509/20/2025 4:15 PM Rodney Liang * QuestionAnswerDate of AssessmentAuthorTherapeutic Activity Time Entry29 09/20/2025 3:37 PM Paula Love PTA * Head, Ears, Eyes, Nose, and Throat (HEENT)QuestionAnswerDate of Assessment AuthorHead, Ears, Eyes, Nose, and Throat (WDL)X1 8:15 AM Olivia Shaver RNR EyeMildly impaired vision;Corrective geiagw8409/20/2025 8:15 AM Olivia Oscar RNL EyeMildly impaired vision;Corrective yttsgb9109/20/2025 8:15 AM Olivia Shaver RNR EarMildly impaired dbbnlla4609/20/2025 8:15 AM Olivia Shaver RNL EarMildly impaired yutofqv8109/20/2025 8:15 AM Olivia Oscar RNVoiceWeak09/17/2025 2:30 AM Viktoria Amor RNMucous Membrane(s)Moist;Pink1 8:15 AM Olivia Shaver RNTeethMissing teeth;Dentures upper09/20/2025 8:15 AM Olivia Shaver RNDenture Status Aqjqbp3709/19/2025 8:05 AM Kelli Mariscal RN * QuestionAnswerDate of AssessmentAuthorMAP (mmHg)8409/20/2025 3:05 PM EDT Olivia Luna RN * Short Portable Mental StatusQuestionAnswerDate of AssessmentAuthorWhat are the date, month, year? 8:00 AM Olivia Shaver RNWhat is the day of the week? 8:00 AM Olivia Shaver RNWhat is the name of this place? 8:00 AM Olivia Shaver RNWhat is your phone number?0 09/20/2025 8:00 AM Olivia Shaver RNHow old are you? 8:00 AM Olivia Shaver RNWhen were you born? 8:00 AM Olivia Shaver RNWho is the current president? 8:00 AM Olivia Shaver RNWho was the president before him? 8:00 AM Olivia Shaver RN What was your mother's maiden name? 8:00 AM Olivia Shaver RN Can you count backward from 20 by 3s? 8:00 AM Olivia Shaver RNShort Portable Mental Jgghd811 8:00 AM Olivia Shaver RN * Fall Risk LevelQuestionAnswerDate of AssessmentAuthorMobility zoneLow (Green Zone)09/20/2025 8:00 AM Olivia Shaver RNMorse fall risk zoneModerate (Yellow Zone)09/20/2025 8:00 AM Olivia Shaver RNMental status questionaire zoneLow (Green Zone)09/20/2025 8:00 AM Olivia Shaver RN * General AssessmentQuestionAnswerDate of AssessmentAuthorHearingMild CHILKOOT 09/20/2025 1:31 PM Paula Love PTASkin IntegrityPatient had mediplex padding on coccyx to protect skin.09/20/2025 1:31 PM Paula Love PTA * EdemaAnswerDate of AssessmentAuthorNone noted09/19/2025 3:38 PM Chhaya Clarke, OT * Hand DominanceAnswerDate of XcslxklvvxFuvzdeTmqkz44/21/2025 3:38 PM Chhaya Kaminski OT * Skin Assessment Sign offQuestionAnswerDate of AssessmentAuthorDual Sign-off - Admission/Jiiaaylvemslsgj97/19/2025 2:30 AM Viktoira Amor RNAny new wounds identified on admission/transfer?Yes09/17/2025 2:30 AM Viktoria Amor RNProvider notified of new tfazeIgm01/19/2025 2:30 AM Viktoria Amor RN * 6 Clicks (Mobility)QuestionAnswerDate of AssessmentAuthorHelp from another person climbing 3-5 steps with a ckajytn402/22/2025 3:00 PM Paula Love PTAHelp from another person turning from your back to your side while in a flat bed without using vjfdsamd318/22/2025 3:00 PM Paula Love PTAHelp from another person moving from lying on your back to sitting on the side of a flat bed without using zbzhytyj723/22/2025 3:00 PM Paula Love PTAHelp from another person moving to and from a bed to a chair (including a wheelchair) 3:00 PM Paula Love PTAHelp from another person standing up from a chair using your arms (e.g. wheelchair or bedside chair)3 09/20/2025 3:00 PM Paula Love PTAHelp from another person to walk in hospital tewz354 3:00 PM Paula Love, PTAMobility 6 Clicks T-Score 171 3:00 PM Paula Love, [employer] * QuestionAnswerDate of BksvlxffewNemsfkQsR12683/22/2025 3:05 PM Olivia Shaver RN * QuestionAnswerDate of AssessmentAuthorPulse rate from Plethysmogram (bpm)59 09/20/2025 3:05 PM Olivia Shaver RN * QuestionAnswerDate of AssessmentAuthorLevel of QdvltwrxtnughSpfya01/22/2025 8:15 AM Olivia Shaver RNCognitionAppropriate gammjpych01/22/2025 8:15 AM Olivia Shaver, QFDuxpdxVayqw04/22/2025 8:15 AM Olivia Shaver RN SwallowAble to swallow solids and liquids without difficulty;Age > 55 09/20/2025 8:15 AM Olivia Shaver RNR Hand TckxyBokgfnik34/22/2025 8:15 AM Olivia Shaver, MARYANL Hand SqfrdMvjgqofb70/22/2025 8:15 AM Olivia Shaver RNR Foot NdxumoravwzxLxfiqasa96/22/2025 8:15 AM Olivia Shaver RN L Foot RppumaboxoflCgrgmbvz65/22/2025 8:15 AM Olivia Shaver RNR Foot Plantar HpkxlcfJbcrcmxm57/22/2025 8:15 AM Olivia Shaver, MARYANL Foot Plantar GfwxkddLjyycvpm42/22/2025 8:15 AM Olivia Shaver RNNeuro Symptoms Ntdbrkhpp63/22/2025 8:15 AM EDTSilvers, Olivia, RNHand Grasp/Motor Function/Sensation AssessmentGrasp;Dorsiflexion;Plantar qivfpmt0609/20/2025 8:15 AM Olivia Shaver RN * QuestionAnswerDate of AssessmentAuthorBilateral Breath SoundsClear;Diminished 09/20/2025 8:15 AM Olivia Shaver RNRespiratory EckphguQbjcay33/22/2025 8:15 AM Olivia Shaver RNChest AssessmentChest expansion symmetrical 09/20/2025 8:15 AM Olivia Shaver RNCoughOccasional1 8:15 AM EDT Olivia Luna RNRespiratory HjarqzLpfichzhj85/22/2025 8:15 AM Olivia Shaver RNRespiratory Depth/SlltrhUuwqqsh14/22/2025 8:15 AM Olivia Shaver RNDyspnea OccurrenceWith /22/2025 8:15 AM Olivia Shaver, MARYAN * QuestionAnswerDate of AssessmentAuthorCardiac ByubaskhlmAdkfzoj51/22/2025 8:15 AM Olivia Shaver RNTelemetry Monitor ObxrhzPn36/22/2025 8:15 AM EDOlivia Stout RNTelemetry Box Number [id number] 7:25 PM Mian Aparicio RNJugular Venous Distention (JVD)No09/20/2025 8:15 AM Olivia Shaver RNCardiac WwiljrdqJhgq70/22/2025 8:15 AM Olivia Shaver RNHeart EzkkviQuylsg40/22/2025 8:15 AM Olivia Shaver RN * QuestionAnswerDate of AssessmentAuthorPacemaker BftpKbzyaujau05/22/2025 8:15 AM Olivia Shaver RN * GastrointestinalQuestionAnswerDate of AssessmentAuthorGastrointestinal (WDL) WDL1 7:30 PM Mian Aparicio RNBowel ZbbdmvtkakfgUn12/21/2025 7:30 PM Mian Aparicio, RN * Peripheral VascularQuestionAnswerDate of AssessmentAuthorPeripheral Vascular (WDL)X1 8:15 AM Olivia Shaver RNCapillary RefillLess than/equal to 2 seconds (All extremities)09/20/2025 8:15 AM Olivia Shaver RNPulses Right radial;Left radial;Right posterior tibial;Left posterior tibial;Right pedal;Left pedal1 8:15 AM Olivia Shaver RNCyanosisNone 09/20/2025 8:15 AM Olivia Shaver RNEdemaRight lower extremity;Left lower fztaodarq22/22/2025 8:15 AM Olivia Shaver RNPeripheral Vascular Additional AssessmentsLeft upper yquhgunok79/22/2025 8:15 AM Olivia Shaver RN * RUMarino Neurovascular AssessmentQuestionAnswerDate of AssessmentAuthorRight Radial Pulse+ 8:15 AM Olivia Shaver RN * LUMarino Neurovascular AssessmentQuestionAnswerDate of AssessmentAuthorLUE Capillary RefillLess than/equal to 2 vsuvfxt8209/20/2025 8:15 AM Olivia Shaver RNLUE ColorAppropriate for knxjyvmih21/22/2025 8:15 AM Olivia Shaver RNLUE Temperature/MoistureWarm;Dry09/20/2025 8:15 AM Olivia Shaver RNLeft Radial Pulse+ 8:15 AM Olivia Shaver RN * RLE Neurovascular AssessmentQuestionAnswerDate of AssessmentAuthorRLE Edema Non-yleaxzs3309/20/2025 8:15 AM Olivia Shaver RNRLE Capillary RefillLess than/equal to 2 ytminqf1709/20/2025 8:15 AM Olivia Shaver RNRLE Color Appropriate for nufhshdmk17/22/2025 8:15 AM Olivia Shaver RNRLE Temperature/MoistureWarm;Dry09/20/2025 8:15 AM Olivia Shaver RNRight Posterior Tibial Pulse+ 8:15 AM Olivia Shaver RNRight Pedal Pulse+ 8:15 AM Olivia Shaver RN * LLE Neurovascular AssessmentQuestionAnswerDate of AssessmentAuthorLLE Edema Non-fpmfawf5509/20/2025 8:15 AM Olivia Shaver RNLLE Capillary RefillLess than/equal to 2 ezobysb8109/20/2025 8:15 AM Olivia Shaver RNLLE Color Appropriate for aljdutfev60/22/2025 8:15 AM Olivia Shaver RNLLE Temperature/MoistureWarm;Dry09/20/2025 8:15 AM Olivia Shaver RNLeft Posterior Tibial Pulse+ 8:15 AM Olivia Shaver RNLeft Pedal Pulse+ 8:15 AM Olivia Shaver RN * MusculoskeletalQuestionAnswerDate of AssessmentAuthorRUEFull movement 09/20/2025 8:15 AM Olivia Shaver RNRLEFull movement;Gzczpwws20/22/2025 8:15 AM Olivia Shaver RNLUEFull agyddyyg53/22/2025 8:15 AM Olivia Shaver RNLLADILSONull movement;Ltaqmbcq26/22/2025 8:15 AM Olivia Shaver RN Musculoskeletal (WDL)X1 8:15 AM Olivia Shaver RN * PsychosocialQuestionAnswerDate of AssessmentAuthorPsychosocial (WDL)WDL 09/20/2025 8:15 AM Olivia Shaver RN * QuestionAnswerDate of AssessmentAuthorLast BM Mtma4122872/22/2025 4:32 AM EDT MisaelBecca tucker, PCTUrine OdorNo odor09/20/2025 4:32 AM EDTChildsBecca, PCTStool EqrsyKgwzp31/22/2025 4:32 AM EDDonyildBecca tucker, PCTStool Appearance Loose09/20/2025 4:32 AM EDBecca Leblanc, PCT * Contreras Fall RiskQuestionAnswerDate of AssessmentAuthorHistory of Falling, Immediate or Within 3 Cvxved479/22/2025 8:00 AM Olivia Shaver, RN Secondary Kfefyxaok1579/22/2025 8:00 AM Olivia Shaver, RNAmbulatory Aid15 09/20/2025 8:00 AM Olivia Shaver RNIntravenous Therapy/Heparin Lock20 09/20/2025 8:00 AM Olivia Shaver RNGait/Duvdrjnslkgn8719/22/2025 8:00 AM Olivia Shaver RNMental Dxutax548/22/2025 8:00 AM Olivia Shaver, RN Contreras Fall Risk Cmxzx586209/20/2025 8:00 AM Olivia Shaver, RN * Lorenzo ScaleQuestionAnswerDate of AssessmentAuthorBraden No Risk Interventions Continue to assess patient according to level of care09/20/2025 8:15 AM EDOlivia Stout, RNSensory Fnvqoyriurb330/22/2025 8:15 AM Olivia Shaver UPVlbydtwy559/22/2025 8:15 AM Olivia Shaver, AQLuuaduac504/22/2025 8:15 AM Olivia Shaver, UFRnwixaic715/22/2025 8:15 AM Olivia Shaver, RN Zrhudkijh027/22/2025 8:15 AM Olivia Shaver, RNFriction and Shear3 09/20/2025 8:15 AM Olivia Shaver RNBraden Scale Ozdtz209909/20/2025 8:15 AM Olivia Shaver, RN * Charting TypeQuestionAnswerDate of AssessmentAuthorCharting TypeShift mfstbyqiwl88/22/2025 8:15 AM Olivia Shaver, MARYAN * CognitionQuestionAnswerDate of AssessmentAuthorDeficitsDecreased awareness of asumqrez79/22/2025 1:31 PM Paula Love, GAKPhpeiuiqmyhxvAwmieh59/22/2025 1:31 PM Paula Love, PTAOrientation LevelOriented X41 1:31 PM EDT Paula Renee, PTAOverall Cognitive WwfplgLWU93/22/2025 1:31 PM Paula Love, PTAArousal/AlertnessAppropriate responses to gzoiope7509/19/2025 2:02 PM Chhaya Clarke, OTAttention SpanAppears kmbpfe6609/20/2025 1:31 PM Paula Love, PTAMemoryAppears pvwdpj5309/19/2025 2:02 PM Chhaya Clarke, OT Following CommandsFollows multistep commands with increased time09/20/2025 1:31 PM Paula Love, PTASafety JudgmentDecreased awareness of need for zfyzlm5409/20/2025 1:31 PM Paula Love PTAAwareness of ErrorsDecreased awareness of hseirk3809/20/2025 1:31 PM Paula Love PTAProblem Solving Assistance required to identify errors made09/20/2025 1:31 PM Paula Love PTACognition CommentsPatient was joking and pleasant and cooperative. 09/19/2025 2:02 PM Chhaya Clrake, GILA * SensationQuestionAnswerDate of AssessmentAuthorLight TouchPartial deficits in the RUE1 3:40 PM Chhaya Clarke OT * PerceptionQuestionAnswerDate of AssessmentAuthorInattention/NeglectAppears jvwoot6009/19/2025 3:40 PM Chhaya Clarke, OTInitiationAppears intact 09/19/2025 3:40 PM Chhaya Clarke, GILAMotor PlanningAppears mlhcrz5509/19/2025 3:40 PM Chhaya Clarke OTPerseverationNot dogtlsh6709/19/2025 3:40 PM EDT Chhaya Rascon OT * Vision - Basic AssessmentQuestionAnswerDate of AssessmentAuthorCurrent Vision Wears glasses all the time09/19/2025 3:39 PM Chhaya Clarke OT * Values/BeliefsQuestionAnswerDate of AssessmentAuthorCultural Requests During Vmmxivgtfsusjyflozn46/19/2025 2:42 AM Margie Bledsoe RNSpiritual Requests During Hwmjakauhnehjbofmpl02/19/2025 2:42 AM Margie Bledsoe RN * GenitourinaryQuestionAnswerDate of AssessmentAuthorUrine ColorYellow/straw 09/20/2025 8:15 AM Olivia Shaver RNUrine HzfnxbptvvAqrgg21/22/2025 8:15 AM Olivia Shaver RNGenitourinary (WDL)WDL1 8:15 AM Olivia Shaver RNUrinary WxplrvfbmdvwVj76/22/2025 8:15 AM Olivia Shaver, MARYAN * Patient MonitoringQuestionAnswerDate of AssessmentAuthorFrequency of Checks Twice per hour, ikcpalvl06/21/2025 7:25 PM Mian Aparicio RN * Prior FunctionQuestionAnswerDate of AssessmentAuthorMeal AqqvWyjbj56/21/2025 3:33 PM Chhaya Clarke TSHakkiybpaNcgxtqsgyew64/21/2025 3:33 PM Chhaya Kaminski OTPrior Functional MobilityIndependent with kfydzhaq19/21/2025 3:33 PM Chhaya Clarke OTLevel of IndependenceNeeds assistance with ADLs;Needs assistance with /21/2025 3:33 PM [facility]haya Clarke [facility]Home snhqoo8809/19/2025 3:33 PM Chhaya Clarke OT HvqwlsyvhqAinvfne83/21/2025 3:33 PM Chhaya Clarke OTLeisurePatient enjoys going for car drives and looking at the farm land, mowing the lawn, and going to visit his grandchildren.09/19/2025 3:33 PM Chhaya Clarke OTADL AssistanceNeeds ddnduykpqg97/21/2025 3:33 PM Chhaya Clarke OTBath Rszsexaxgxl77/21/2025 3:33 PM Chhaya Clarke OTDressingMinimal09/19/2025 3:33 PM Chhaya Clarke OTTIBnyrjkmsTephqohdlif41/21/2025 3:33 PM EDT TarahChhaya giordano, IEGkyqhmnDvchjscvgbt21/21/2025 3:33 PM Chhaya Clarke, OT Homemaking AssistanceNeeds /21/2025 3:33 PM Chhaya Clarke, OT YrsacgxMwtbt83/21/2025 3:33 PM Chhaya Clarke, RBRedmixjtnDtqwp24/21/2025 3:33 PM Chhaya Clarke, WWPytoebcsEyaoc50/21/2025 3:33 PM AMANDAADANjessica Chhaya, ZFOqdooydnwGsgut24/21/2025 3:33 PM Chhaya Clarke, OTDriving Aqgpjhxzpds13/21/2025 3:33 PM Chhaya Clarke, OTPrior Function CommentsAide goes with pt or drives pt to appointments and takes care of meds, cooking, cleaning. Dtr reports pt still gbklrm8009/18/2025 3:07 PM Ricarda Proctor, PT * ADLQuestionAnswerDate of AssessmentAuthorGrooming AssistanceStand by09/19/2025 3:44 PM Chhaya Clarke, OTGrooming DeficitSetup;Supervision/safety 09/19/2025 3:44 PM Chhaya Clarke, OTLE Dressing AxnyfxdzgnCmmwv97/21/2025 3:44 PM Chhaya Clarke, OTLE Dressing DeficitDon/doff L sock;Don/doff R sock09/19/2025 3:44 PM Chhaya Clarke, OTToileting Assistance with Device Stand by09/19/2025 3:44 PM Chhaya Clarke, OTToileting DeficitSetup 09/19/2025 3:44 PM Chhaya Clarke, OT * Activity ToleranceQuestionAnswerDate of AssessmentAuthorStage II (METs 1.4- 2.0) - Sitting5-10 mins09/19/2025 3:40 PM Chhaya Clarke, OTEnduranceStage II09/20/2025 1:31 PM Paula Love, PTAActivity Tolerance CommentsPt tolerated bed mobility, transfers, short ambulation distances and toileting this session. Pt on 5L O2 with SpO2 WNL throughout despite mild SOB observed. Requires increased time/effort with all mobility.09/20/2025 1:31 PM Paula Love PTA * RUE AssessmentQuestionAnswerDate of AssessmentAuthorRUE UnfwefvencM54/21/2025 3:41 PM Chhaya Clarke, OT * LUE AssessmentQuestionAnswerDate of AssessmentAuthorLUE AnnepzdhomH77/21/2025 3:41 PM Chhaya Clarke, OT * PrecautionsQuestionAnswerDate of AssessmentAuthorMedical Precautionsfall risk;telemetry;fwbuwk8009/20/2025 1:31 PM Paula Love PTA * PlanQuestionAnswerDate of AssessmentAuthorLevel of assist1 qxouln2109/20/2025 1:31 PM Paula Love PTAPT PlanSkilled PT09/20/2025 1:31 PM Paula Love PTATreatment/InterventionsFunctional transfer training;Endurance training;Patient/family training;Bed mobility;Gait /22/2025 1:31 PM Paula Love PTAPT Frequency5 times per week09/20/2025 1:31 PM Paula Love PTAPT - Discharge Recommendations KrrvrdOtd65/21/2025 1:25 PM EDT Tracy Ellison, PTPT Discharge RecommendationsPatient is able to return to prior living dwugjknefua48/21/2025 1:25 PM Tracy Jones, PT * Hand FunctionQuestionAnswerDate of AssessmentAuthorGross GraspFunctional 09/19/2025 3:41 PM Chhaya Clarke, AFGctcynpjkpeqCehctsiwnw93/21/2025 3:41 PM Chhaya Clarke, GILA * PlanQuestionAnswerDate of AssessmentAuthorEquipment Cposffnqxzngead38/21/2025 3:51 PM Chhaya Clarke, OTTreatment InterventionsADL retraining;Patient/family training;Equipment evaluation/education;Functional transfer training;Neuromuscular reeducation;Endurance training;Compensatory technique weqxbuztu54/21/2025 3:51 PM EDTMelville, Chhaya, OTOT Frequency5 times per week09/19/2025 3:51 PM Chhaya Clarke, OTOT - Discharge Recommendations IjbsikUkh64/21/2025 3:51 PM Chhaya Clarke, OTOT PlanSkilled OT09/19/2025 3:51 PM Chhaya Clarke, OTOT Discharge RecommendationsPatient is able to return to prior living sstskvsvuxz72/21/2025 3:51 PM Chhaya Clarke, OT * Safe EnvironmentQuestionAnswerDate of AssessmentAuthorChair AlarmsOff 09/20/2025 8:00 AM Olivia Shaver, RNArm Bands OnID;Fall09/20/2025 8:00 AM Olivia Shaver RNSide Rails/Bed Safety/ 8:00 AM Olivia Shaver RNBed KynmzmHgv08/22/2025 8:00 AM Olivia Shaver, RNThe Patient's Environment is YrznQpg50/22/2025 8:00 AM Olivia Shaver, MARYAN * MobilityQuestionAnswerDate of MxazslbknzVrgnmfVypckzyuqy65/22/2025 8:00 AM Olivia Oscar RNActivity PerformedResting in bed09/20/2025 8:00 AM Olivia Oscar RNRepositionedTurns self09/20/2025 8:00 AM Olivia Shaver RNLevel of AssistanceModerate assist, patient does 50-74%09/18/2025 8:00 AM Kelli Mariscal RNHead of Bed ElevatedSelf ibegxnykq87/22/2025 8:00 AM Olivia Shaver RNHeels/FeetFoot of bed ymgtmalv26/22/2025 8:00 AM Olivia Shaver RNRange of MotionActive;All acboiqerwbq98/22/2025 8:00 AM Olivia Shaver RNAnti-Embolism DevicesBilateral;Sequential compression devices, below knee09/20/2025 8:00 AM Olivia Shaver RNAnti-Embolism RvxgnvszzavwMfw98/22/2025 8:00 AM Olivia Shaver RNPatient's mobility zoneZone 8:00 AM Kelli Mariscal RNPositioning FrequencyAble to turn self09/20/2025 8:00 AM Olivia Shaver RN * HygieneQuestionAnswerDate of AssessmentAuthorSkin CareMoisture barrier 09/19/2025 8:00 AM Kelli Mariscal RNHygienePatient refused;Bathed 09/20/2025 8:45 AM Hailey Ruano STNAOral CarePer self09/20/2025 8:00 AM Olivia Shaver RNLevel of AssistanceMinimal sesmdr1009/20/2025 8:45 AM Hailey Ruano STNAIs Patient Total Care?No09/20/2025 8:45 AM Hailey Leiva STNAIncontinence Protective DevicesAbsorbent pad09/19/2025 7:25 PM Mian Aparicio RN * PrecautionsQuestionAnswerDate of AssessmentAuthorPrecautions Aspiration;Bleeding;Fall09/20/2025 8:00 AM Olivia Shaver RN * Family/Significant Other CommunicationQuestionAnswerDate of AssessmentAuthor Family/Significant Other QzsclxNswuxwan59/21/2025 7:25 PM Mian Aparicio RN * Comfort and Environment InterventionsQuestionAnswerDate of AssessmentAuthor JtoeyaxOqxnevgqzpea94/21/2025 7:25 PM Mian Aparicio RNAdditional Comfort/Environmental InterventionsTAPS;Extremity baphvbio99/21/2025 8:00 AM Kelli Mariscal RN * ADL ScreeningQuestionAnswerDate of AssessmentAuthorDo you snore or wake up gasping for air?No09/17/2025 2:54 AM Margie Bledsoe RNCan you bring in your CPAP/BiPAP from home?N/A1 2:54 AM Margie Bledsoe RN Patient's Vision Adequate to Safely Complete Daily QlyftyrnrvZjt39/19/2025 2:54 AM Margie Bledsoe RNPatient's Judgment Adequate to Safely Complete Daily RvvcdmtqxjLis78/19/2025 2:54 AM Margie Bledsoe RNPatient's Memory Adequate to Safely Complete Daily MjuzrannusFwc32/19/2025 2:54 AM Margie Olivarez RNPatient Able to Express Needs/SizqftlWdq20/19/2025 2:54 AM Margie Bledsoe JEPnykiuzbDqmwhndcpla99/19/2025 2:54 AM Margie Olivarez, INJzphlvtfIldfqcicfwn36/19/2025 2:54 AM Margie lBedsoe, LXVzcbaqyRvcgzpicpjn03/19/2025 2:54 AM Margie Bledsoe, RNBathing Becioujdpjs19/19/2025 2:54 AM Margie Bledsoe RNToiletingIndependent 09/17/2025 2:54 AM Margie Bledsoe, RNIn/Out GoyBopxlqryqaw36/19/2025 2:54 AM Margie Bledsoe, RNWalks in JysrStsgzdexmta28/19/2025 2:54 AM Margie Olivarez RNWeakness of NzcsHufh33/19/2025 2:54 AM Margie Bledsoe RNWeakness of Arms/BrossMcgy96/19/2025 2:54 AM Margie Bledsoe, RN Hearing - Right EarDifficulty with noise09/17/2025 2:54 AM Margie Bledsoe RNHearing - Left EarDifficulty with noise09/17/2025 2:54 AM Margie Olivarez RN * ConsultsQuestionAnswerDate of AssessmentAuthorSpiritual Care Consult NeededNo 09/17/2025 2:42 AM Margie Bledsoe RNSocial Services Consult NeededNo 09/17/2025 2:42 AM Margie Bledsoe RNPalliative Care Consult NeededNo 09/17/2025 2:42 AM Margie Bledsoe RN * Vision - Complex AssessmentQuestionAnswerDate of AssessmentAuthorAcuityAble to read normal print without rkbtoeywcs99/21/2025 3:39 PM Chhaya Clarke OT * Therapy ConsultsQuestionAnswerDate of AssessmentAuthorPT Evaluation Needed1 09/17/2025 2:54 AM Margie Bledsoe RNOT Evaluation Mfowqg811 2:54 AM Margie Bledsoe RNSLP Evaluation Lsnlhp560/19/2025 2:54 AM Margie Olivarez RN * Assistive DevicesQuestionAnswerDate of AssessmentAuthorAssistive Devices Dentures upper;Walker;Wgxpqqwlxr09/19/2025 2:54 AM Margie Bledsoe RN * AM-PAC 6 ClicksQuestionAnswerDate of AssessmentAuthorTotal Score OT AMPAC19 09/19/2025 2:02 PM Chhaya Clarke, OTToileting, which includes using the toilet,bedpan,or urinal? 2:02 PM Chhaya Clarke, OTEating meals? 2:02 PM Chhaya Clarke, OTBathing(Including washing,rinsing,drying)? 2:02 PM Chhaya Clarke, OTTaking care of personal grooming such as brushing teeth? 2:02 PM Chhaya Clarke OTPutting on and taking off regular lower body clothing? 2:02 PM Chhaya Clarke, OTPutting on and taking off regular upper body clothing? 2:02 PM Chhaya Clarke, OT * [place] Fall Risk InterventionsQuestionAnswerDate of AssessmentAuthor [place] Fall Risk VnrwvsikxamqgJixnksno14/22/2025 8:00 AM Olivia Shaver RN * OT Last VisitQuestionAnswerDate of AssessmentAuthorOT Received [id number] 09/19/2025 3:32 PM Chhaya Clarke OT * PT AssessmentQuestionAnswerDate of AssessmentAuthorPT AssessmentPt demo's good tolerance of session except moderate GROSS after standing with RW. SpO2 maintained on RA. Pt is a fall risk and will benefit from skilled PT intervention to maximize safety prior to discharge.09/18/2025 3:21 PM EDT Ricarda Grigsby, WXLmdgogvxtGvfk78/21/2025 1:24 PM Tracy Jones, PT ImpairmentsDecreased endurance;Impaired balance;Decreased mobility;Dizziness;Decreased safety awareness;Decreased skin integrity 09/18/2025 3:21 PM Ricarda Proctor, PTBarriers to DischargeComorbidities 09/19/2025 1:24 PM Tracy Jones, PT * Static Standing BalanceQuestionAnswerDate of AssessmentAuthorStatic Standing- Balance SupportRight upper extremity supported;Left upper extremity supported;With otmcvy7409/20/2025 1:31 PM Paula Love PTAStatic Standing- Level of AssistanceContact guard09/20/2025 1:31 PM Paula Love PTAStatic Standing-Comment/Number of MinutesCGA for ssmsvy0709/20/2025 1:31 PM Paula Love, PARTNER MARKETING INTERN * Dynamic Standing BalanceQuestionAnswerDate of AssessmentAuthorDynamic Standing Balance-Level of AssistanceContact guard09/20/2025 1:31 PM Paula Love PTADynamic Standing-Commentsduring amb09/20/2025 1:31 PM Paula Love, PARTNER MARKETING INTERN Dynamic Standing-Balance SupportRight upper extremity supported;Left upper extremity supported;With gkrdsl5209/20/2025 1:31 PM Paula Love, KULDIPDynamic Standing-BalanceForward lean;Lateral lean09/19/2025 3:43 PM Chhaya Clarke OT * Dynamic Sitting BalanceQuestionAnswerDate of AssessmentAuthorDynamic Sitting Balance-Level of AssistanceClose gietaifqywd16/22/2025 1:31 PM Paula Love PTADynamdoreen Sitting-Commentsable to scoot hips with incr time/effort 09/20/2025 1:31 PM Paula Love PTADynamic Sitting-Balance SupportFeet xuraidepx77/22/2025 1:31 PM Paula Love PTADynamic Sitting-BalanceLateral lean;Forward lean09/20/2025 1:31 PM Paula Love PTA * AmbulationQuestionAnswerDate of GgysovopisXgnbvuWaagfscqjhUjq99/22/2025 1:31 PM Paula Love PTA * StairsQuestionAnswerDate of ElwvcgsduuBgovyfKqciwmIw69/21/2025 1:23 PM EDT Tracy Ellison, PT * CoordinationQuestionAnswerDate of AssessmentAuthorMovements are Fluid and GryxmlpcfwmVzg86/21/2025 3:40 PM Chhaya Clarke OT * Postural ControlQuestionAnswerDate of AssessmentAuthorPosture AssessmentPt demo's rounded shldrs and few head posture while sitting and standing with RW 09/18/2025 3:14 PM Ricarda Proctor, PTPostural ControlDeficits on evaluation 09/18/2025 3:14 PM Ricarda Proctor, PT * Other ActivityQuestionAnswerDate of AssessmentAuthorOther Activity 1Pt in bed with call light and all needs available at end of session.09/20/2025 1:31 PM Paula Love PTA * GeneralQuestionAnswerDate of AssessmentAuthorSubjectivePatient stated he first needed to use urinal. Patient then participated in OT evaluation and was fri endly, joking, and offering candy to staff who entered the room. The patient's caregiver was present. The patient stated he thought he was functioning at baseline ADL level. At end of session, staff came to take patient to slabber. 09/19/2025 1:35 PM Chhaya Clarke OTOT DiagnosisDecreased ADL Activity Tolerance secondary to INIQEH4009/19/2025 1:35 PM Chhaya Clarke OTPatient SummaryPatient is an 89 year old male who presented from [facility] with shortness of breath and wasdiagnosed with a NSTEMI. Patient is scheduled for a cardiac cath later today.09/19/2025 1:35 PM Chhaya Clarke, OT * GeneralQuestionAnswerDate of AssessmentAuthorSubjective I'll go home and behave. Pt in bed upon entry, requesting assist to the toilet and back to bed. RN shahid session.09/20/2025 1:31 PM Paula Love PTAPT Diagnosis impaired mobiltiy and decreased IND09/18/2025 3:02 PM Ricarda Proctor, PT Patient SummaryAlvin Boyd is an 89 y.o. male who came from [facility] with SOB and dx with NSTEMI.09/18/2025 3:02 PM Ricarda Proctor, PT Family/Caregiver YgpygorXy64/22/2025 1:31 PM Paula Love PTA * Bed MobilityQuestionAnswerDate of AssessmentAuthorBed BvfozpumArx28/22/2025 1:31 PM Paula Love PTA * Bed Mobility 1QuestionAnswerDate of AssessmentAuthorBed Mobility Comments 1bed flat, required min A at trunk after failed attempts.09/20/2025 1:31 PM Paula Woods, PTABed Mobility From 4Kxuzhr7909/20/2025 1:31 PM Paula Love, KULDIPBed Mobility Type 1To09/20/2025 1:31 PM Paula Love, PTABed Mobility to 1Short sit09/20/2025 1:31 PM Paula Love, KULDIPLevel of Assistance 1Minimum qmkcyjkooz61/22/2025 1:31 PM Paula Love, PARTNER MARKETING INTERN * Bed Mobility 2QuestionAnswerDate of AssessmentAuthorBed Mobility Comments 2 able to return supine with incr tpprzs4309/20/2025 1:31 PM Paula Love PARTNER MARKETING INTERN Bed Mobility From 2Short sit09/20/2025 1:31 PM Paula Love, KULDIPBed Mobility Type 2To09/20/2025 1:31 PM Paula Love, PTABed Mobility to 2 Ptmzoj1009/20/2025 1:31 PM Paula Love, KULDIPLevel of Assistance 2Close zxzhkpdigdn35/22/2025 1:31 PM Stew Loven, PARTNER MARKETING INTERN * TransfersQuestionAnswerDate of AssessmentAuthorAmbulation commentsPatient took 2 side steps to head of bed with close supervision.09/19/2025 3:46 PM EDT Chhaya Rascon, BUBaiitqkhZpi60/22/2025 1:31 PM EDPaula Tucker, PARTNER MARKETING INTERN * Transfer 1QuestionAnswerDate of AssessmentAuthorTransfer Device 1rolling wbkxin9009/20/2025 1:31 PM EDStew Tuckern, PTATrials/Comments 1Pt requires increased time and effort to achieve standing, strong reliance of UE's to push off at EOB. Mild unsteadiness observed when transferring hands from bed to RW. 09/20/2025 1:31 PM Paula Love, PTATransfer From 1Bed09/20/2025 1:31 PM EDPaula Tucker, PTATransfer Type 1To and from09/20/2025 1:31 PM EDPaula Tucker, PTATransfer to 8Vzhjs3309/20/2025 1:31 PM EDStwe Tuckern, PTATechnique 1 Sit to stand;Stand to sit09/20/2025 1:31 PM Paula Love, PTATransfer Level of Assistance 1Contact guard09/20/2025 1:31 PM EDStew Tuckern, PARTNER MARKETING INTERN * Transfers 2QuestionAnswerDate of AssessmentAuthorTransfer Device 2grab bars 09/20/2025 1:31 PM Paula Love, PTATrials/Comments 2Mod A for lift from toilet, Min A for controlled descent, requires increased time/bwmfso7909/20/2025 1:31 PM EDStew Tuckern, PTATransfer From 8Zdrimy73/22/2025 1:31 PM EDStew Tuckern, PTATransfer Type 2To and from09/20/2025 1:31 PM EDStew Tuckern, PARTNER MARKETING INTERN Transfer to 9Knwoa66 1:31 PM EDStew Tuckern, PTATechnique 2Sit to stand;Stand to sit09/20/2025 1:31 PM Paula Love PTATransfer Level of Assistance 2Moderate iunhuwkivf53/22/2025 1:31 PM Paula Love PARTNER MARKETING INTERN * Static Sitting BalanceQuestionAnswerDate of AssessmentAuthorStatic Sitting- Balance SupportFeet xynqcpqfv55/22/2025 1:31 PM Paula Love PTAStatic Sitting-Level of AssistanceDistant unjrhmgyhhu44/22/2025 1:31 PM Paula Love, PTAStatic Sitting-Comment/Number of MinutesEOB, oezklg84 1:31 PM Paula Love, PARTNER MARKETING INTERN * Ambulation 1QuestionAnswerDate of AssessmentAuthorSurface 1Level tile 09/20/2025 1:31 PM Paula Love PTADevice 1Rolling zmsait6009/20/2025 1:31 PM Paula Love, PTAAssistance 1Contact guard09/20/2025 1:31 PM Paula Love PTAQuality of Gait 1shuffled steps with decreased step length bilaterally, hips and knees slightly flexed kzyxqonunq13/22/2025 1:31 PM Paula Woods, PTAComments/Distance (ft) 1~6' x209/20/2025 1:31 PM Paula Love, PARTNER MARKETING INTERN * Home LivingQuestionAnswerDate of AssessmentAuthorHome AccessRamped entrance 09/19/2025 1:37 PM Chhaya Clarke OTType of KqpvXbupm29/21/2025 1:37 PM Chhaya Clarke OTHome LayoutOne level09/19/2025 1:37 PM Chhaya Clarke OTBathroom Shower/TubWalk-in shower;Wfwmyhc9609/19/2025 1:37 PM Chhaya Clarke OTBathroom ToiletHandicapped qoqnbk5709/19/2025 1:37 PM Chhaya Clarke OTBathroom EquipmentGrab bars in shower;Grab bars around brrfwy24 1:37 PM EDTMelville, Chahya, OTBathroom Accessibilityrollator qwluapljuu45/21/2025 1:37 PM Chhaya Clarke OTHome Adaptive EquipmentRollator;Lift Chair;Wheelchair-manual;Emergency Alert;Other (Comment)09/19/2025 1:37 PM AMANDAT Chhaya Rascon OTLives BpbzOicie12/21/2025 1:37 PM Chhaya Clarke OT * OT AssessmentQuestionAnswerDate of AssessmentAuthorOT Assessment/TAXI PROPRIETOR Summary Patient presents with decreased ADL activity tolerance and functional mobility. Patient stated he did not want to learn how to use AE like a sock aide because he has [employer] to assist with ADLS/IADLS at home. Patient was agreeable to improving his mobility and endurance during ADLS. Patient would benefit from skilled OT treatment to improve his standing tolerance, standing balance, and to improve independence with toileting, and performing ADLS at sinkside. OT to also instruct patient on energy conservation techniques. 09/19/2025 3:47 PM Chhaya Clarke OTOT Education/CommentsInstructed patient on role of OT, AE, DME, and bed mobility techniques.09/19/2025 3:47 PM Chhaya Clarke OTStrengthsAbility to acquire knowledge;Access to adaptive/assistive products;Housing layout;Support of extended family/friends 09/19/2025 3:47 PM Chhaya Clarke OTBarriers to DischargeComorbidities 09/19/2025 3:47 PM Chhaya Clarke OTPrognosisGood1 3:47 PM Chhaya Kaminski OTOT ImpairmentsDecreased ADL status;Decreased endurance;Decreased IADLs;Decreased upper extremity range of motion;Decreased functional wisddryt60/21/2025 3:47 PM Chhaya Clarke OT Evaluation/Treatment TolerancePatient tolerated treatment well09/19/2025 3:47 PM Chhaya Clarke OTMedical Staff Made NlopoXqi41/21/2025 3:47 PM AMANDAT Chhaya Rascon OT * Suicidal IdeationQuestionAnswerDate of AssessmentAuthor1. Wish to be (Lifetime)No09/17/2025 2:44 AM Margie Bledsoe RN2. Non-Specific Active Suicidal Thoughts (Lifetime)No09/17/2025 2:44 AM Margie Bledsoe RN * [place] Coma ScaleQuestionAnswerDate of AssessmentAuthorBest Eye Response Aqityxhilyn35/22/2025 8:15 AM Olivia Shaver RNBe Verbal Response Dtuohvld94/22/2025 8:15 AM Olivia Shaver RNBest Motor ResponseFollows kenalzlz86/22/2025 8:15 AM Olivia Shaver RNGlasgow Coma Scale Score15 09/20/2025 8:15 AM Olivia Shaver, RN * Pain AssessmentQuestionAnswerDate of AssessmentAuthorPain Interventions Ikiqrbwk01/22/2025 8:15 AM Olviia Shaver RNPatient's Stated Pain GoalNo pain09/20/2025 8:15 AM Olivia Shaver RNPain AssessmentNo/denies pain 09/20/2025 1:31 PM Paula Love PTA * NutritionQuestionAnswerDate of AssessmentAuthorDiet TypeHeart healthy 09/20/2025 8:00 AM Olivia Shaver, RNFeedingAble to feed self09/20/2025 8:00 AM Olivia Shaver, UJYsnjhypxYmgi45/22/2025 8:00 AM Olivia Shaver, RN * Respiratory InterventionsQuestionAnswerDate of AssessmentAuthorRespiratory Interventions PerformedCough and deep kigzcsr17/21/2025 7:25 PM Mian Aparicio RN * Cough and Deep BreatheQuestionAnswerDate of AssessmentAuthorCough and Deep FnpdqmpHiv74/21/2025 7:25 PM Mian Aparicio, MARYAN * IntegumentaryQuestionAnswerDate of AssessmentAuthorSkin ColorAppropriate for race09/20/2025 8:15 AM Olivia Shaver RNSkin Condition/TempDry;Warm 09/20/2025 8:15 AM Olivia Shaver RNSkin IntegrityOther (Comment) 09/20/2025 8:15 AM Olivia Shaver RNSkin TurgorNon-wmecjlh7609/20/2025 8:15 AM Olivia Shaver RNIntegumentary (WDL)X1 8:15 AM Olivia Shaver RN * QuestionAnswerDate of AssessmentAuthorWhich is your dominant hand?Right 09/17/2025 8:00 PM Viktoria Amor RN * Audit Alcohol ScreeningQuestionAnswerDate of AssessmentAuthorHow often do you have a drink containing alcohol? 2:42 AM Margie Bledsoe RN How many standard drinks containing alcohol do you have on a typical day?No 09/17/2025 2:42 AM Margie Bledsoe RNHow often do you have six or more drinks on one occasion? 2:42 AM Margie Bledsoe RNAudit-C Fkprm187 2:42 AM Margie Bledsoe RN * QuestionAnswerDate of AssessmentAuthorPatient Goal for Izzgniqhvmg86/22/2025 7:32 AM Olivia Shaver RN * Free from fall injuryAnswerDate of AssessmentAuthorAssess patient frequently for physical needs;Identify cognitive and physical deficits and behaviorsthat affect risk of falls;Walker fall precautions as indicated by assessment;Educate patient/family on patient safety, including physical limitations;Instruct patient to call for assistance with activity based on assessment;Modify environment to reduce risk of injury;Consider OT/PT consult to assist with strengthening/llvianoz29/20/2025 11:17 PM Mian Aparicio RN * Drug ScreeningQuestionAnswerDate of AssessmentAuthorHave you used any substances (canabis, cocaine, heroin, hallucinogens, inhalants, etc.) in the past12 months?No09/17/2025 2:42 AM Margie Bledsoe RNHave you used any prescription drugs other than prescribed in the past 12 months?No09/17/2025 2:42 AM Margie Bledsoe RN * QuestionAnswerDate of MqqppmfpyvRtgihdAI627/7109/20/2025 3:05 PM Olivia Shaver, PMPqjv52.91 3:05 PM Olivia Shaver RNTemp srcTemporal 09/20/2025 3:05 PM Olivia Shaver, KOJrfve2883/22/2025 3:05 PM Olivia Shaver BHZxbd8333/22/2025 3:05 PM Olivia Shaver RNHeart Rate Source Zmogfwq4609/20/2025 3:05 PM Olivia Shaver RNBP LocationLeft arm09/20/2025 3:05 PM Olivia Shaver RNBP TusucaVcryworwz05/22/2025 3:05 PM Olivia Shaver RNCardiac RhythmV-Paced09/20/2025 3:05 PM Olivia Shaver RN Patient AgpesyqeUzhaq97/22/2025 3:05 PM Olivia Shaver, RN * Environment of Care ChecklistQuestionAnswerDate of AssessmentAuthorPersonal belongings secured?Yes09/17/2025 8:45 PM Viktoria Amor RNPatient dressed in hospital-provided attire only?Yes09/17/2025 8:45 PM Viktoria Amor RNPatient care equipment (cords, cables, call bells, lines, and drains) shortened, removed, or accounted for?Yes09/17/2025 8:45 PM EDT Viktoria Ying RNRoom secured by RN per shift?Yes09/17/2025 8:45 PM EDT Viktoria Ying RN * QuestionAnswerDate of AssessmentAuthorPT Received Cv965323309/20/2025 1:31 PM Paula Love PTA * Therapeutic ActivityQuestionAnswerDate of AssessmentAuthorTherapeutic Activity 1bed feoajqup64/21/2025 1:23 PM Tracy Jones, PTTherapeutic Activity 2 transfers with RW x2: bed , 1:23 PM Tracy Jones, PT Therapeutic Activity 3gait with RW09/19/2025 1:23 PM Tracy Jones, PT Therapeutic Activity 4standing balance with RW09/19/2025 1:23 PM Tracy Jones PT * PT AssessmentQuestionAnswerDate of AssessmentAuthorPT Education/Commentssafety 09/20/2025 1:31 PM Paula Love PTAMedical Staff Made RrfxjQvp84/22/2025 1:31 PM Paula Love PTAEvaluation/Treatment TolerancePatient limited by ywkphrw5909/20/2025 1:31 PM Paula Love PTAPT Assessment/PARTNER MARKETING INTERN SummaryPt demos difficulties with STS transitions, requires increased time/effort to complete. Pt reports he normally sits in a lift chair. Pt declined to progress gait distances this session. Pt would benefit from cont skilled PT to address weakness/deconditioning and maximize IND with mobility.09/20/2025 1:31 PM EDT Paula Renee PTA * Acute TriageQuestionAnswerDate of AssessmentAuthorTriage Nrdvglsa845/20/2025 3:28 PM Ricarda Proctor PTTriage GroupMOVE;Cardiovascular and pulmonology 09/18/2025 3:28 PM Ricarda Proctor, PT * Modified AldreteQuestionAnswerDate of FdkjbdlltuJsclgkQkuxyqex389/21/2025 6:19 PM Rebecca Castillo RNRespiration 6:19 PM Rebecca Castillo RN Newvjwfdoph224/21/2025 6:19 PM Rebecca Castillo RNConsciousness 6:19 PM Rebecca Castillo RNOxygen Xadsygsyui753/21/2025 6:19 PM Rebecca Castillo RNModified Lola Aqyal045 6:19 PM Rebecca Castillo RN * Modified Malnutrition Screening Tool (MST)QuestionAnswerDate of Assessment AuthorHave you recently lost weight without trying?Yes09/17/2025 2:43 AM EDT Margie Aguirre RNUnplanned Weight loss over: 2:43 AM Margie Olivarez RNWeight Loss Mhieo864 2:43 AM Margie Bledsoe RNHave you been eating poorly because of a decreased appetite?1 09/17/2025 2:43 AM Margie Bledsoe RNOn home tube feeding or TPN?0 09/17/2025 2:43 AM Margie Bledsoe RNMalnutrition Munjc537 2:43 AM Margie Bledsoe RNDoes patient have a stage 2-4 pressure ulcer?0 09/17/2025 2:43 AM Margie Bledsoe RN documented as of this encounter Mental Status * Hernadez Agitation Sedation ScaleQuestionAnswerEntry DateAuthorRichmond Agitation Sedation Scale (RASS)- 5:10 PM Jeremiah Berry RN * [place] Coma ScaleQuestionAnswerEntry DateAuthorBest Eye ResponseSpontaneous 09/20/2025 8:15 AM Olivia Shaver RNBest Verbal ResponseOriented 09/20/2025 8:15 AM Olivia Shaver RNBest Motor ResponseFollows commands 09/20/2025 8:15 AM Olivia Shaver RNGlasgow Coma Scale Ccwpq2320/22/2025 8:15 AM Olivia Shaver RN * Modified AldreteQuestionAnswerEntry HasiBnzqyoAjbstexm041/21/2025 6:19 PM Rebecca Early RNRespiration21 6:19 PM Rebecca Castillo RN Uabtkhmasfi570/21/2025 6:19 PM Rebecca Castillo RNConsciousness21 6:19 PM Rebecca Castillo RNOxygen Ovilebtejz158/21/2025 6:19 PM Rebecca Castillo RNModified Lola Tphzo720 6:19 PM Rebecca Castillo RN documented in this encounter Discharge Summaries * Mary De Anda MD - 09/20/2025 3:05 PM EDT Images from the original note were not included. Hospital Medicine Discharge Summary Date of Admission: 09/17/2025 Date of Discharge: 09/20/2025 Admitting Diagnosis: NSTEMI (Non-ST Elevation Myocardial Infarction) Discharge Diagnosis: NSTEMI, status post PCI to LAD (Synergy XD KISHAN) Coronary artery disease with prior RCA stents Atrial fibrillation on anticoagulation (Coumadin) Heart failure with reduced ejection fraction (EF 40%) Hypertension Hyperlipidemia COPD Obesity Osteoarthritis Hospital Course: The patient is an 89-year-old male with a significant cardiac history including CAD with prior stent placement and pacemaker implantation, hypertension, hyperlipidemia, atrial fibrillation on chronicCoumadin therapy, and obesity. He was transferred from [facility] for higher level of care after being diagnosed with NSTEMI, with an initial troponin of >10,000. On arrival to [facility], he washemodynamically stable and pain-free. Initial troponin was 4,674 and BNP 1,209. Coumadin was held on admission, and he was started on IV heparin. Cardiology was consulted. Echocardiogram on 09/18/2025 revealed severe left atrial enlargement with an EF of 40%. INR was 2.19, for which he received 2.5 mg of vitamin K. Heparin infusion was continued until INR decreased, and he was maintained on goal- directed medical therapy including Lipitor, Coreg, and Lasix. On 09/19/2025, after INR decreased to 1.56, coronary angiography was performed revealing: Severe calcific 70% denovo stenosis in the mid LAD -- treated with scoring balloon angioplasty and Synergy XD drug-eluting stent placement. Severe 90% calcific in-stent restenosis in the distal LAD -- treated with scoring balloon, high-pressure angioplasty, and agent drug-coated balloon with residual 10% stenosis. Mild to moderate disease elsewhere; RCA stents patent with 40% in-stent restenosis. Moderate elevations in left and right filling pressures. 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 Post-procedure, the patient remained hemodynamically stable with no recurrent chest pain or arrhythmia. He was transitioned to dual antiplatelet therapy (Aspirin and Clopidogrel) with a plan to discontinue Aspirin in 1-2 weeks given concurrent anticoagulation. Continue with Coumadin. Day of Discharge (09/20/2025): The patient was afebrile, stable on room air (SpO? 100%), and at baseline respiratory status. Hemoglobin 10.4 g/dL, hematocrit 32%. Potassium 3.4 was replaced. No acute distress noted. Follow-up: Cardiology follow-up: 09/28/2025 Primary Care Physician within 1 week of discharge. Continue home health and physical therapy as arranged. Condition at Discharge: Stable, ambulatory, chest pain-free. Disposition: Discharged home with home health. Pradip Frey MD, Alvin Marshall is advised to follow up with you within 1-2 weeks. Items to follow up in ambulatory setting: None Follow-up with: Cardiology Scheduled appointments: Future Appointments Date Time Provider Department Center 09/28/2025 11:40 AM [facility] Your medication list START taking these medications Instructions Last Dose Given Next Dose Due aspirin 81 mg chewable tablet Start taking on: September 21, 2025 Chew 1 tablet (81 mg) with breakfast for 96 doses. cholecalciferol 25 MCG (1000 UT) capsule Commonly known as: Vitamin D-3 clopidogrel 75 mg tablet Commonly known as: Plavix Start taking on: September 21, 2025 Take 1 tablet (75 mg) by mouth in the morning for 98 doses. CHANGE how you take these medications Instructions Last Dose Given Next Dose Due carvedilol 6.25 mg tablet Commonly known as: Coreg What changed: medication strength See the new instructions. Take 1 tablet (6.25 mg) by mouth with breakfast and with evening meal for 191 doses. furosemide 40 mg tablet Commonly known as: Lasix What changed: See the new instructions. CONTINUE taking these medications Instructions Last Dose Given Next Dose Due atorvastatin 40 mg tablet Commonly known as: Lipitor DULoxetine [address] capsule Commonly known as: Cymbalta Entresto 49-51 mg tablet Generic drug: sacubitril-valsartan ferrous sulfate 325 (65 Fe) MG EC tablet montelukast 10 mg tablet Commonly known as: Singulair omeprazole [address] capsule Commonly known as: PriLOSEC potassium chloride CR 20 mEq ER tablet Commonly known as: Klor-Con M20 sucralfate 1 gram tablet Commonly known as: Carafate warfarin 5 mg tablet Commonly known as: Coumadin STOP taking these medications hydroCHLOROthiazide 12.5 mg tablet nitroglycerin 0.4 mg SL tablet Commonly known as: Nitrostat ASK your doctor about these medications Instructions Last Dose Given Next Dose Due Spiriva with HandiHaler 18 mcg inhalation capsule Generic drug: tiotropium Where to Get Your Medications These medications were sent to [facility] - [place], [place] - [address], [facility] [address] aspirin 81 mg chewable tablet carvedilol 6.25 mg tablet clopidogrel 75 mg tablet Alvin Marshall has no known allergies. Disposition: Home or Self Care () Discharge Condition: Stable Code Status: Full Code Diagnostic Results Hematology: Results from last 7 days Lab Units 09/20/25 0610 09/19/25 0600 09/18/25 0433 WBC AUTO 10*3/uL 8.09 -- 8.30 HEMOGLOBIN g/dL 10.4* -- 12.0* HEMATOCRIT % 32.0* -- 37.5* MCV fL 95.0 -- 97.2 PLATELETS AUTO 10*3/uL 172 -- 163 INR -- 1.56* 2.19* Chemistry: Results from last 7 days Lab Units 09/20/25 0610 09/19/25 1231 09/19/25 0600 09/18/25 0745 SODIUM mmol/L 137 -- 137 138 POTASSIUM mmol/L 3.4* 4.0 3.4* 3.8 CHLORIDE mmol/L 108* -- 108* 107 CO2 mmol/L 21 -- 21 23 BUN mg/dL 28* -- 28* 26* CREATININE mg/dL 0.85 -- 0.94 0.89 GLUCOSE mg/dL 108* -- 116* 120* MAGNESIUM mg/dL 1.8* -- 1.9 2.1 CALCIUM mg/dL 8.8 -- 8.9 8.9 Results from last 7 days Lab Units 09/17/25 0350 AST U/L 21 ALT U/L 16 ALK PHOS U/L 69 BILIRUBIN TOTAL mg/dL 1.1* Test Results Pending At Discharge: Diet at the time of discharge: regular diet and cardiac diet Nutrition Screen Activity: Patient currently has no discharge activity orders Objective Blood pressure 122/76, pulse 60, temperature 36.7 ??C (98.1 ??F), temperature source Temporal, resp. rate (!) 9, height 1.727 m (5' 8 ), weight 97.2 kg (214 lb 3.2 oz), SpO2 100%. Cardiology: Normal rate, regular rhythm. Lungs: Clear to auscultation, no wheezes, rales or rhonchi, symmetric air entry. Abdomen: Soft, non tender, non distended. Total time for discharge - review of data, exam, discussion with providers and care-team, med-rec and orders, arranging follow up, counseling of patient and/or family and documentation was 38 minutes. Signed Mary De Anda MD [facility] Medicine 09/20/2025 3:05 PM CC: MD Tk documented in this encounter Discharge Instructions * Discharge Instr - AVS First Page* Lorin Whitaker RN - 09/20/2025 11:53 AM EDT -Please contact your primary care provider regarding any questions or concerns about your medical condition(s). -If you need immediate medical attention, please dial 9-1-1 or go to your closest emergency department. * Discharge Instr - Activity* Lorin Whitaker RN - 09/20/2025 10:43 AM EDT Activity Orders: -Activity as tolerated. -Ambulate frequently, and with assistance as needed for safety. -Off-load all bony prominences while in bed or in the chair to prevent skin breakdown. -Please turn and reposition yourself (as able) every 2 hours while in bed, and every 15 minutes while in the chair to prevent skin breakdown. -Maintain fall risk precautions at home to prevent falls, and possible injury. Fall risk precautionrecommendations are included at the end of this document. Therapy Orders: -Physical Therapy: Evaluation and treatment per facility protocol. -Occupational Therapy: Evaluation and treatment per facility protocol. * Discharge Instr - Diet* Lorin Whitaker RN - 09/20/2025 10:52 AM EDT Diet Orders: -Regular textured, heart healthy diet with thin liquids. Low fat, low cholesterol, 2 grams of sodium or less per day. -Please maintain adequate hydration to prevent dehydration and/or constipation. * Appointments* Lorin Whitaker RN - 09/20/2025 12:04 PM EDT -Please follow up with the providers listed above. -If you are unable to keep your appointments, please call to reschedule as soon as possible. -Failure to cancel/reschedule your appointments, may result in dismissal from your medical providers practice(s). * Discharge Instr - Other Orders* Lorin Whitaker RN - 09/20/2025 10:41 AM EDT Important Information from Your Care Team: -Resume home INR draws at [facility] 09/18/[address] Campbell Follow Post cath instructions: No lifting greater than 5 pounds for 72 hours after procedure You may resume your normal activities gradually over the next week, or as instructed Keep arm elevated on pillow overnight with brachial and radial cath sites. Keep puncture site dry for 24 hours; may shower 24 hours after procedure Remove band aid dressing from site the morning after the procedure Do not sit in bath water, Jacuzzi or pool/pond/alonso for one week Notify physician if you develop: IF BLEEDING APPLY FIRM PRESSURE TO THE SITE If bleeding heavily report to the emergency room Severe pain to cath site Hard, painful, swelling larger than a quarter at puncture site Numbness and or tingling Fever greater than 101 degrees Redness, warmth, drainage at puncture site CHF Related Instructions: -Continue heart healthy diet and low sodium diet. -Monitor daily weights, and record. Take daily weight record with you to your follow up appointments. -Daily fluid restriction: 1.5-2 liters (1,500-2,000 mL) of fluid per day from all sources to prevent fluid overload. -Call the [facility] ([phone]) for a weight gain of 2 pounds in 1 day, or 5 pounds in 1 week, increased leg swelling, shortness of breath, or shortness of breath at night, and having to sleep sitting up taller/more pillows than normal or in recliner. Code Status: -Full Code * Attachments The following attachments cannot be sent through Care Everywhere. * Heart Attack Musa-ua-Hetd ([place]ien) * Fall Prevention in the Home Adult Tghp-by-Bwni ([place]ien) documented in this encounter Medications at Time of Discharge MedicationSigDispense QuantityRefillsLast FilledStart DateEnd Date aspirin 81 mg chewable tablet Indications:NSTEMI (non-ST elevated myocardial infarction) (CMS/HCC)Chew 1 tablet (81 mg) with breakfast for 96 doses. 7 tablet atorvastatin (Lipitor) 40 mg tablet 1 (one) time each day at the same time. carvedilol (Coreg) 6.25 mg tablet Indications:NSTEMI (non-ST elevated myocardial infarction) (CMS/HCC)Take 1 tablet (6.25 mg) by mouth with breakfast and with evening meal for 191 doses. 60 tablet 501/ cholecalciferol (Vitamin D-3) 25 MCG (1000 UT) capsule Take 1,000 Units by mouth in the morning. clopidogrel (Plavix) 75 mg tablet Indications:NSTEMI (non-ST elevated myocardial infarction) (CMS/HCC)Take 1 tablet (75 mg) by mouth in the morning for 98 doses. 30 tablet 501/ DULoxetine (Cymbalta) [address] capsule Take 30 mg by mouth in the morning. ferrous sulfate 325 (65 Fe) MG EC tablet Take 1 tablet by mouth in the morning. furosemide (Lasix) 40 mg tablet PRN for LE edema montelukast (Singulair) 10 mg tablet 09/08/2022 omeprazole (PriLOSEC) [address] capsule Take 40 mg by mouth before breakfast.03/29/2023 potassium chloride CR (Klor-Con M20) 20 mEq ER tablet Take 20 mEq by mouth in the morning. sacubitriL-valsartan (Entresto) 49-51 mg tablet Take 1 tablet twice a day by oral route.10/31/2020 Spiriva with HandiHaler 18 mcg inhalation capsule 11/21/2021 sucralfate (Carafate) 1 gram tablet Take 1 g by mouth before breakfast and before evening meal.05/07/2024 warfarin (Coumadin) 5 mg tablet Take 4 mg by mouth in the morning. Take as directed per After Visit Summary. Follow up with behzad anticoagulation for INRdocumented as of this encounter Progress Notes * Paula Renee, KULDIP - 09/20/2025 1:31 PM EDT Physical Therapy Physical Therapy Treatment Patient Name: Rolando Boyd : 1935 Today's Date: 09/20/2025 Problem List[1] 09/20/25 Time Calculation Start Time 1331 Stop Time 1400 Time Calculation (min) 29 min PT Therapeutic Procedures Time Entry Therapeutic Activity Time Entry 29 09/20/25 1331 PT Last Visit PT Received On 09/20/25 Response to Previous Treatment Patient with no complaints from previous session. General Family/Caregiver Present No Subjective I'll go home and behave. Pt in bed upon entry, requesting assist to the toilet and back to bed. RN shahid session. Activity Tolerance Endurance Stage II Activity Tolerance Comments Pt tolerated bed mobility, transfers, short ambulation distances and toileting this session. Pt on 5L O2 with SpO2 WNL throughout despite mild SOB observed. Requires increased time/effort with all mobility. Precautions Medical Precautions fall risk;telemetry;oxygen (5L O2) Pain Assessment Pain Assessment No/denies pain Cognition Overall Cognitive Status WFL Orientation Level Oriented X4 Following Commands Follows multistep commands with increased time Safety Judgment Decreased awareness of need for safety Awareness of Errors Decreased awareness of errors Deficits Decreased awareness of deficits Attention Span Appears intact Problem Solving Assistance required to identify errors made Communication Intact General Assessment Hearing Mild CHILKOOT Skin Integrity Patient had mediplex padding on coccyx to protect skin. Static Sitting Balance Static Sitting-Balance Support Feet supported Static Sitting-Level of Assistance Distant supervision Static Sitting-Comment/Number of Minutes EOB, toilet Dynamic Sitting Balance Dynamic Sitting-Balance Support Feet supported Dynamic Sitting-Balance Lateral lean;Forward lean Dynamic Sitting Balance-Level of Assistance Close supervision Dynamic Sitting-Comments able to scoot hips with incr time/effort Static Standing Balance Static Standing-Balance Support Right upper extremity supported;Left upper extremity supported;Withdevice (RW) Static Standing-Level of Assistance Contact guard Static Standing-Comment/Number of Minutes CGA for safety Dynamic Standing Balance Dynamic Standing-Balance Support Right upper extremity supported;Left upper extremity supported;With device (RW) Dynamic Standing Balance-Level of Assistance Contact guard Dynamic Standing-Comments during amb Ambulation Ambulation Yes Ambulation 1 Surface 1 Level tile Device 1 Rolling walker Assistance 1 Contact guard Quality of Gait 1 shuffled steps with decreased step length bilaterally, hips and knees slightly flexed throughout Comments/Distance (ft) 1 ~6' x2 (to/from toilet, declined any further distance) Bed Mobility Bed Mobility Yes Bed Mobility 1 Bed Mobility From 1 Supine Bed Mobility Type 1 To Bed Mobility to 1 Short sit Level of Assistance 1 Minimum assistance Bed Mobility Comments 1 bed flat, required min A at trunk after failed attempts. Bed Mobility 2 Bed Mobility From 2 Short sit Bed Mobility Type 2 To Bed Mobility to 2 Supine Level of Assistance 2 Close supervision Bed Mobility Comments 2 able to return supine with incr effort Transfers Transfer Yes Transfer 1 Transfer From 1 Bed Transfer Type 1 To and from Transfer to 1 Stand Technique 1 Sit to stand;Stand to sit Transfer Device 1 rolling walker Transfer Level of Assistance 1 Contact guard Trials/Comments 1 Pt requires increased time and effort to achieve standing, strong reliance of UE's to push off at EOB. Mild unsteadiness observed when transferring hands from bed to RW. Transfers 2 Transfer From 2 Toilet Transfer Type 2 To and from Transfer to 2 Stand Technique 2 Sit to stand;Stand to sit Transfer Device 2 grab bars Transfer Level of Assistance 2 Moderate assistance Trials/Comments 2 Mod A for lift from toilet, Min A for controlled descent, requires increased time/effort Other Activity Other Activity 1 Pt in bed with call light and all needs available at end of session. PT Assessment PT Assessment/[employer] Summary Pt demos difficulties with STS transitions, requires increased time/effort to complete. Pt reports he normally sits in a lift chair. Pt declined to progress gait distances this session. Pt would benefit from cont skilled PT to address weakness/deconditioning and maximize IND with mobility. Evaluation/Treatment Tolerance Patient limited by fatigue Medical Staff Made Aware Yes PT Education/Comments safety Plan Level of assist 1 assist Treatment/Interventions Functional transfer training;Endurance training;Patient/family training;Bedmobility;Gait training PT Plan Skilled PT PT Frequency 5 times per week Outcome Assessments 6 Clicks (Mobility) Help from another person turning from your back to your side while in a flat bed without using bedrails: A little Help from another person moving from lying on your back to sitting on the side of a flat bed without using bedrails: A little Help from another person moving to and from a bed to a chair (including a wheelchair): A little Help from another person standing up from a chair using your arms (e.g. wheelchair or bedside chair): A little Help from another person to walk in hospital room: A little Help from another person climbing 3-5 steps with a railing: A lot Mobility 6 Clicks T-Score: 17 Goals: Multi-Disciplinary Problems (from Physical Therapy) Active Problems Problem: Balance Start Date: 09/18/25 Goal Start Date Expected End Date End Date LTG - Patient will maintain standing and sitting balance to allow for completion of daily activities 09/18/25 10/02/25 -- Goal Start Date Expected End Date End Date LTG - Patient will tolerate standing for 10 minutes for ADL activity and mobility 09/18/25 10/02/25-- Problem: Mobility Start Date: 09/18/25 Goal Start Date Expected End Date End Date LTG - Patient will ambulate 50 feet with no assistance using rolling walker to prepare for safe discharge 09/18/25 10/02/25 -- Problem: Safety Start Date: 09/18/25 Goal Start Date Expected End Date End Date LTG - Patient will utilize safety techniques during functional mobility to decrease risk of falls 09/18/25 10/02/25 -- Problem: Transfers Start Date: 09/18/25 Goal Start Date Expected End Date End Date LTG - Patient will transfer from bed to chair with no assistance using rolling walker to prepare for safe discharge 09/18/25 10/02/25 -- Goal Start Date Expected End Date End Date LTG - Patient will perform bed mobility with no assistance 09/18/25 10/02/25 -- Problem: Compromised Skin Integrity Start Date: 09/18/25 Goal Start Date Expected End Date End Date LTG - Patient will demonstrate appropriate pressure relief techniques 09/18/25 10/02/25 -- Problem: PT Misc Start Date: 09/18/25 Goal Start Date Expected End Date End Date LTG - Pt will improve functional mobility to increase 6 clicks score by 2-4 points to maximize safety and IND 09/18/25 10/02/25 -- Goal Start Date Expected End Date End Date LTG - Pt will improve endurance to maximize tolerance of PT sessions to prepare for discharge. 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 Dizziness and giddiness DVT (deep venous thrombosis) ([facility]) History of cardiovascular disorder Chronic disease of cardiovascular system Encounter for long-term (current) use of insulin ([facility]) Hyperlipidemia Mitral valve disorder Morbid obesity with BMI of 40.0-44.9, adult ([facility]) Osteoarthritis of right hip Pulmonary embolism ([facility]/HCC) Right knee DJD CAD S/P percutaneous coronary angioplasty Implantable cardioverter-defibrillator (ICD) in situ NSTEMI (non-ST elevated myocardial infarction) ([facility]) SAULO (obstructive sleep apnea) 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) ([facility]) Class 1 obesity due to excess calories with serious comorbidity and body mass index (BMI) of 34.0 to 34.9 in adult COPD without exacerbation ([facility]) Cosigned by Benjie Dumont, PT at 09/20/2025 3:57 PM EDT * Thomas Morrison MD - 09/20/2025 9:40 AM EDT Images from the original note were not included. Cardiology Progress Note Subjective 09/20: Patient seen and examined at bedside this morning. Afebrile and hemodynamically stable, satting well on 5L O2. Patient endorses dyspnea which he states is his baseline. Patient underwent coronary angiogram and right heart cath yesterday with KISHAN to mid LAD and drug-coated balloon angioplasty to distal LAD. RHC showed a wedge pressure of 22 and a cardiac index of 1.63. 375 cc UOP over the past 24 hours. Labs notable for K of 3.4, Mg 1.8, hemoglobin 10.4 (12). No acute events overnight. 09/19: Patient seen and examined at bedside this morning. Afebrile and hemodynamically stable, saturating well on 2 L O2. K3.4, troponins downtrending, LDL 59, hemoglobin 12, INR 1.56 (2.19). No acute events overnight. Denies chest pain. Continues to have shortness of breath with good SpO2 on 2L. 09/18: Patient seen and examined at bedside. Afebrile and hemodynamically stable, satting well on 2 L. 1.9 L UOP. Troponins continue to downtrend, last at 2641. INR 2.19, hemoglobin 12. Awaiting echocardiogram and Coronary angiogram. No acute events overnight, Patient denies any chest pain or dyspnea. Subjective: Rolando Boyd is a 89 y.o. male with a past medical history notable for hypertension, hyperlipidemia, CAD s/p KISHAN to LAD & RCA in 2013, HFimpEF s/p BiV Pacemaker placement 2017, permanent A.F. on warfarin, arthritis, and obesity who presented as a transfer from [facility] with dyspnea and diagnosis of NSTEMI. Patient was transferred from OSH where he was evaluated with dyspnea and chest discomfort. Troponins were elevated greater than 10,000. Patient diagnosed with NSTEMI and transferred to [facility] for further management. Initial labs: K3.4, Mg 1.7, BNP 1209, troponins 4674, lactate 1.3, and hemoglobin 11.6. Patient started on heparin gtt. and cardiology was consulted. Cardiac history: TTE 05/30/24: LVEF 50 to 55%. Moderate TR and mild AV R and stenosis. Cardiac medications: Warfarin 4 mg, atorvastatin 40 mg, carvedilol 12.5 mg twice daily, and furosemide 20 mg Objective Current Medications[1] Objective: Patient Vitals for the past 24 hrs: BP Temp Temp src Pulse Resp SpO2 Weight 09/20/25 0916 138/76 -- -- 60 -- -- -- 09/20/25 0815 -- -- -- 60 -- -- -- 09/20/25 0735 137/81 36.7 ??C (98.1 ??F) Temporal 63 17 100 % -- 09/20/25 0700 -- -- -- 60 13 -- -- 09/20/25 0432 -- -- -- -- -- -- 97.2 kg (214 lb 3.2 oz) 09/20/25 0400 124/69 36.6 ??C (97.9 ??F) Temporal 60 10 100 % -- 09/20/25 0030 117/72 -- -- 60 12 100 % -- 09/19/252017 117/71 -- -- 66 -- -- -- 09/19/252014 117/71 -- -- 64 21 97 % -- 09/19/251999 124/79 -- -- 60 16 -- -- 09/19/251954 125/75 -- -- 60 14 100 % -- 09/19/25 1930 125/73 -- -- 71 20 100 % -- 09/19/25 1925 130/76 37 ??C (98.6 ??F) Temporal 67 14 100 % -- 09/19/25 1900 (!) 128/93 -- -- 60 12 100 % -- 09/19/25 1845 138/89 -- -- 60 14 -- -- 09/19/25 1830 (!) 132/95 -- -- 60 14 -- -- 09/19/25 1815 134/89 -- -- 60 12 100 % -- 09/19/25 1800 148/84 -- -- 60 11 100 % -- 09/19/25 1745 158/85 -- -- 60 18 98 % -- 09/19/25 1728 148/72 -- -- 60 15 97 % -- 09/19/25 1714 (!) 149/92 -- -- 62 13 95 % -- 09/19/25 1527 -- -- -- -- -- 93 % -- 09/19/25 1526 140/84 -- -- 71 18 93 % -- 09/19/25 1154 111/76 36.9 ??C (98.5 ??F) Temporal 60 16 97 % -- Physical Examination: Physical Exam Vitals reviewed. Eyes: Pupils: Pupils are equal, round, and reactive to light. Cardiovascular: Rate and Rhythm: Normal rate and regular rhythm. Pulmonary: Effort: Pulmonary effort is normal. Musculoskeletal: General: Swelling (right lower extremity swelling (patient had recent knee surgery)) present. Neurological: Mental Status: He is alert and oriented to person, place, and time. Relevant Lab Results Encounter Date: 09/17/25 ECG 12 lead Result Value Ventricular Rate 60 Atrial Rate 288 QRS DURATION 172 QT Interval 518 QTC CALCULATION(BAZETT) 518 R-[place] 266 T Wave [place] 81 Impression Atrial fibrillation Ventricular-paced rhythm Biventricular pacemaker detected Abnormal ECG When compared with ECG of 17-SEP-2025 09:35, No significant change was found Confirmed by Salo Campbell ([id number]) on 09/19/2025 7:59:33 PM No results found for: CKTOTAL , CKMB , CKMBINDEX , TROPONINI Complete Echo (TTE) w/wo Imaging Agent, Strain, 3D, Bubble Study Result Date: 09/18/2025 1 1 [facility] Heart [facility] [address] [place] [address] [phone] (fax) Echocardiogram-[facility] Name: ALVIN BOYD Study Date: 09/18/2025 10:20 AM B/P: 136 mmHg/90 mmHg HR: 123 bpm Date of : 1935 Location: [facility] Height: 68 in. Age: 89 year(s) Patient Room: [facility] Weight: 212 lb. Gender: Male Patient Status: InPt BSA: 2.09 m2 Indication: Heart failure, Atrial Fibrillation, Pacemaker/AICD, CAD, COPD Examination: Echocardiogram (Complete), Lumason Contrast Image Quality: Technically Difficult study Patient Consent: Procedure explained to patient Exam Details Contrast: I.V. dose of Lumason Conclusions Lef t Ventricle: The left ventricle is normal size. Global left ventricular systolic function is difficult to assess but appears reduced. The calculated Biplane EF is 40 %. Left ventricular wall thickness is mildly increased. Right Ventricle: The right ventricle appears normal in size. Right ventricular systolic function appears normal. Doppler studies suggest mildly elevated right sided pressures. Left Atrium: The left atrium is severely enlarged. Aortic Valve: Restricted opening movement of the aortic valve is present. Tricuspid Valve: Mild tricuspid regurgitation. Overall Conclusions: Due to suboptimal imaging Lumason contrast was administered for opacification and better delineation of endocardial borders. Measurements Left Ventricle Label Value Normal Value LVOTd 2.7 cm (19cm - 21cm) LVOT VTI 14.2 cm (18cm - 22cm) LVOT PGmax 2 mmHg LVDd, 2D 4.47 cm (4.2cm - 5.9cm) LVDs, 2D 3.16 cm (2.1cm - 4cm) IVSd, 2D 1.34 cm (0.6cm - 1.1cm) LVPWd, 2D 1.2 cm (0.6cm - 1cm) LVEF, BP 40 % (55% - 65%) LV Mass, 2D ASE 212.89 g LV Mass Index, 2D ASE 101.9 g/m?? (50g/m?? - 102.4g/m??) RWT, MM 0.54 (0 - 0 .42) LVSVI, 2D 24.4 ml/m2 LVOT PGmean 1 mmHg LVSV_LVOT 81 ml Left Atrium Label Value Normal Value LA Volume, BP 104 ml (18ml - 58ml) LAESV index, BP 49.8 ml/m?? Aortic Valve Label Value Normal Value AV DVI 0.37 AV VTI 37.4 cm Tricuspid Valve Label Value Normal Value RA Pressure 3 mmHg RVSP 42 mmHg TR Vmax 3.12 m/s Aorta Label Value Normal Value AoRoot, 2D 3.4 cm (1.4cm - 3.8cm) Valvular Assessment LVOT 0.7 - 1.1 m/sec Aortic Valve 1.0 - 1.7 m/sec Mitral Valve 0.6 - 1.3 m/sec Tricuspid Valve 0.3- 0.7 m/sec Pulmonic Valve 0.6 - 0.9 m/sec Regurgitation No No Mild No Max Velocity 0.67 m/sec 1.83m/s Max Gradient 13.00 mmHg Mean Gradient 7.00 mmHg Valve Area 2.1 cm?? Findings Left Ventricle: The left ventricle is normal size. Global left ventricular systolic function is difficult to assess but appears reduced. The calculated Biplane EF is 40 %. Left ventricular wall thickness is mildly increased. The basal anteroseptal, basal inferoseptal, basal inferior, mid anteroseptal, mid inferoseptal, mid inferior, apical septal, apical inferior and apex left ventricular wall segments are hypokinetic. The basal anterior, basal inferolateral, basal anterolateral, mid anterior, mid inferolateral, mid anterolateral, apical anterior and apical lateral left ventricular wall segments are akinetic. Right Ventricle: The right ventricle appears normal in size. Right ventricular systolic function appears normal. Doppler studies suggest mildly elevated right sided pressures. Left Atrium: The left atrium is severely enlarged. Right Atrium: Right atrium is poorly visualized. Mitral Valve: Mitral valve appears normal. No mitral regurgitation. Aortic Valve: Restricted opening movement of the aortic valve is present. Aortic stenosis maybe underestimated due to poor LV systolic function. No aortic valve regurgitation. Tricuspid Valve: Normal tricuspid valve. Mild tricuspid regurgitation. Pulmonic Valve: Normal pulmonary valve. No pulmonary regurgitation. Aorta: The aortic root is normal in size. Great Vessels: IVC: The IVC is not well visualized. Pericardium: No pericardial effusion. Procedure S taff Reading Group: [facility] Facility Maintenance Mechanic: Shawn Masterson RDCS Ordering Physician: LUNA KIMBLE Wall Motion Scores -1 - hyperkinesia, 0 - not evaluated, 1 - normal, 2 - hypokinesia, 3 - akinesia, 4 - dyskinesia No nuclear medicine results found for the past 12 months Relevant Imaging Results ECG 12 lead Atrial fibrillation Ventricular-paced rhythm Biventricular pacemaker detected Abnormal ECG When compared with ECG of 17-SEP-2025 09:35, No significant change was found Confirmed by Salo Campbell ([id number]) on 09/19/2025 7:59:33 PM Cardiac catheterization PROCEDURE PHYSICIAN: Salo Campbell MD . Indications: Alvin Boyd is a 89 y.o. male with history of coronary disease status post stenting of the LAD and RCA in the past who presented with NSTEMI. His echocardiogram showed acute systolic heart failure with reduced LVEF at 40%. He was referred for cardiac catheterization. Assistants: Interventional Attending Dr Vinay rTeadwell. Procedure Performed: Bilateral selective coronary angiogram. Right heart catheterization. OCT assessment of the LAD. Successful balloon angioplasty, scoring balloon angioplasty, and drug coated balloon treatment of 90% instent restenosis in the distal left anterior descending coronary artery, with reduction of the lesion to 10% by a Agent DCB 3.0 x 15 mm drug coated balloon. Successful scoring balloon angioplasty and drug eluting stenting of 70% stenosis in the mid left anterior descending coronary artery, with reduction of the lesion to 0% by a Synergy XD 3.0 x 20 mm drug eluting stent, post-dilated to 3.5 mm at high pressures. Access into the right internal jugular vein under ultrasound guidance. Access into the left radial artery under ultrasound guidance. Methods: Procedure was explained to the patient with risks and benefits; he signed informed consent. he was brought to the slabber in a fasting state. The right neck area was prepped and draped in usual fashion. Micropuncture technique was used for access under ultrasound guidance into the right internal jugular vein. A 6-Puerto Rican x 11 cm sheath was placed. The left wrist area was prepped and draped in usual fashion. Micropuncture technique was used for access in the radial artery. A 6-Puerto [place]ican x 11 cm sheath was placed. Verapamil was given through the sheath, and heparin was administered intravenously. A 6-Puerto [place]ican Jackson catheter was used for right heart catheterization and measurement of pressures and calculation of cardiac output using the estimated Deanna method. Jackson catheter was removed. Bilateral selective coronary angiography was then performed using 6-[place] JL4 diagnostic catheter for engagement of the left coronary artery and 6-Puerto Rican JR4 diagnostic catheter for engagement of the right coronary artery. Catheters were removed. Heparin was administered intravenously and therapeutic ACT was confirmed during the rest of the procedure. A 6-Puerto Rican XB 3.5 guiding catheter was advanced and used to engage the left coronary ostium. Baseline MARTINA flow was 3. A [email or web address] coronary guide wire was advanced to the distal left anterior descending coronary artery. A ContinuumRxtar OCT catheter was advanced and used to perform OCT assessment of the left anterior descending coronary artery. The mid LAD Denovo stenosis had an MLA of 2.6 mm??. The distal LAD in-stent restenosis had an MLA of 1.67 mm??. Moderate calcified nodules were seen in the mid and distal LAD. Catheter was removed. A Scoreflex 3.0 x 10 mm scoring balloon was advanced and used to performed scoring balloon angioplasty at the site of the stenoses in the distal in-stent restenosis and then mid LAD denovo stenosis with inflations up to 18 Frank. The balloon was retracted. Angiography was performed. Additional noncompliant balloon angioplasty was performed in the distal LAD in-stent restenosis using 3.0 x 12 mm noncompliant Emerge balloon inflated at 24 frank. Angiography was performed. A Agent drug-coated balloon 3.0 x 15 mm was then advanced and used to perform drug-coated balloon angioplasty at the site of in-stent restenosis in the distal LAD with inflation at 12 frank for about 90 seconds. The balloon was deflated and retracted. We then turned attention to the mid LAD. A Synergy XD 3.0 x 20 mm drug-eluting stent was advanced and deployed at 18 Frank across the stenosis and postdilated using a NC 3.5 x 15 mm balloon inflated up to 16 Frank throughout the length of the stented segment. Angiography revealed excellent result with reduction of the stenosis in the mid LAD to 0% and in the distal LAD ISR to 10%, no evidence of dissection or perforation and MARTINA 3 flow in the coronary artery and branches. The guiding catheter and wire were removed. The patient was loaded with clopidogrel 600 mg at the end of the procedure. Hemostasis was achieved by TR band in the radial artery manual compression in the internal jugular vein. he tolerated the procedure well and was transferred back to the hospital room. Hemodynamic Data: RA: 14 RV: 59/10, 15 PA: 55/28 (39) PCWP: 22 CO: 3.43 CI: 1.63 O2 Sat: PA sat: 46%, AO sat: 93% AO: 131/67 (92) TP PVR: 4.95 Wood units SVR: 1819 Metric units Coronary angiography: This is a right-dominant circulation. Left Main: This arises from the left coronary cusp. It bifurcates into left anterior descending and circumflex vessels. This has mild luminal irregularities but no obstructive lesions. Left anterior descending: This is a large vessel. The proximal segment has 30% stenosis followed by a previously placed stent. That stent was placed patent. The mid segment of the LAD has a 70% angiographic stenosis with an MLA of 2.6 mm??. Calcifications were seen on OCT imaging. This was treated by scoring balloon angioplasty and a Synergy XD drug-eluting stent with reduction of the stenosis to 0%. Beyond that area there is a previously placed stent with a 90% angiographic in-stent restenosis and a MLA by OCT of 1.67 mm??. This was treated by balloon angioplasty, scoring balloon angioplasty and a agent drug-coated balloon treatment with reduction of the angiographic stenosis to 10%. The apical LAD has a 50% stenosis. A third diagonal branch is likely occluded and appears to fill faintly via collaterals coming from the apical LAD. Circumflex: This is a non-dominant vessel. it gives rise to a small caliber first obtuse marginal branch which has mild diffuse disease. A large second obtuse marginal branch has a distal 50% stenosis. The main circumflex has diffuse 20 to 30% stenosis. Right coronary artery: This arises from the right coronary cusp. It is a dominant vessel. The ostium of the RCA has a 50% stenosis. Previously placed stents in the proximal to mid segments are patent. In the mid segment there is a 40% in-stent restenosis. Distally the RCA has diffuse mild disease, the PDA and PLV branches are of small caliber and have mild diffuse disease. Impression/Findings: Severe calcific 70% Denovo stenosis in the mid LAD treated by scoring balloon angioplasty and a Synergy XD drug-eluting stent. Severe 90% calcific in-stent restenosis in the distal LAD treated by scoring balloon angioplasty, high-pressure noncompliant balloon angioplasty and a agent drug-coated balloon treatment with reduction of the stenosis to 10%. Mild to moderate disease elsewhere with patent RCA stents exhibiting 40% in-stent restenosis in the mid to distal RCA. Moderate elevation of left filling pressures. Moderate elevation of right filling pressures. 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 Reduced cardiac output and cardiac index. Uncontrolled systemic hypertension. 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 Plan: Medical therapy for coronary artery disease. Aspirin 81 mg daily for life. Dual antiplatelet therapy with Aspirin 81 mg daily for life and Clopidogrel 75 mg daily for 12 months. Given that he is on warfarin therapy for anticoagulation, the aspirin can be stopped in 1 to 2 weeks to reduce the risk of bleeding. Statin therapy for life. Guideline directed medical therapy for heart failure. Further recommendations per inpatient Cardiology service. Follow up in Cardiology Clinic. 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 Started on heparin gtt. and cardiology was consulted for management of NSTEMI. ASSESSMENT NSTEMI Patient presented to OSH with dyspnea and chest discomfort with markedly elevated troponin greater than 10,000 at OSH, 4674 at [facility]. BNP 1209. Likely true type I NSTEMI in the setting of known CAD. Troponins downtrending (4674 > 3682 > 3331 > 2641) CORS 09/19: Successful balloon angioplasty and drug-coated balloon treatment of 90% in-stent restenosis of distal LAD. KISHAN and balloon angioplasty of 70% stenosis in mid LAD. HFrEF, NYHA II-III TTE 09/18: LVEF 40% with mildly increased LV wall thickness. Mildly elevated right-sided pressures.Severely enlarged LA. Mild TR. RHC 09/19: RA 14 // RV 59/10, 15 // PCWP 22 // CO 3.43, CI 1.63 // SVR 1819 Permanent A.F. with CHB s/p BiV PRINCIPAL STATISTICAL PROGRAMMER-P placement, on warfarin EKG 09/17 showing ventricular paced rhythm with intrinsic complexes CAD with prior PCI x2 Hypertension Hyperlipidemia Obesity Arthritis PLAN Patient on warfarin therapy for anticoagulation, continue triple therapy for 1 week with aspirin, Plavix, and warfarin. Aspirin can be stopped in 1 to 2 weeks to reduce the risk of bleeding. Continuous cardiac telemetry Continue to optimize cardiac meds/GDMT, as BP and kidney function tolerate Continue Lipitor 80 mg, Coreg 6.25 mg twice daily, and Lasix increased to 20 mg b.I.d. Strict I's and O's, and daily weights Monitor & Replace electrolytes per protocol, ensure K>4 & Mg>2 Remainder of care as per primary team and other consulting services Cardiology team will continue to follow Patient will need to follow-up in clinic in 1 week following discharge This note was, at least in part, completed using a voice inventory controller system. Every effort was made to ensure accuracy. However, inadvertent computerized inventory controller errors may be present. Thomas Morrison MD PGY-2 Internal Medicine Cardiology Consult Service [facility] [1] Current Facility-Administered Medications: acetaminophen (Tylenol) tablet 650 mg, 650 mg, oral, q6h PRN, Perri Boland MD aspirin chewable tablet 81 mg, 81 mg, oral, Daily with breakfast, Roge Gomez MD, 81 mg at 09/20/25915 atorvastatin (Lipitor) tablet 80 mg, 80 mg, oral, Nightly, Carlton Angulo MD, 80 mg at 09/19/252017 carvedilol (Coreg) tablet 6.25 mg, 6.25 mg, oral, BID with meals, Carlton Angulo MD, 6.25 mg at 09/20/25915 clopidogrel (Plavix) tablet 75 mg, 75 mg, oral, Daily, Roge Gomez MD, 75 mg at 09/20/25915 DULoxetine (Cymbalta) DR capsule 30 mg, 30 mg, oral, Daily, Bette Vargas DO, 30 mg at 09/20/25915 ferrous sulfate tablet 325 mg, 325 mg, oral, Daily with breakfast, Carlton Angulo MD, 325 mg at 09/20/25915 furosemide (Lasix) tablet 20 mg, 20 mg, oral, Daily, Carlton Angulo MD, 20 mg at 09/20/25915 [Held by provider] heparin infusion 100 units/mL in D5W, 0-28 Units/kg/hr, intravenous, Continuous,Perri Boland MD, Stopped at 09/18/25 1052 magnesium sulfate in D5W IVPB 1 g, 1 g, intravenous, q1h, Mary De Anda MD, Last Rate: 100 mL/hr at 09/20/25 0917, 1 g at 09/20/25 0917 montelukast (Singulair) tablet 10 mg, 10 mg, oral, Daily, Bette Vargas DO, 10 mg at 09/20/25 0916 pantoprazole (ProtoNix) EC tablet 40 mg, 40 mg, oral, Daily, Bette Vargas DO, 40 mg at 09/20/25 0607 sennosides-docusate sodium (Christina-Colace) 8.6-50 mg per tablet 1 tablet, 1 tablet, oral, BID PRN, Perri Boland MD Insert peripheral IV, , , Once AND Saline lock IV, , , Once AND sodium chloride flush 10 mL, 10 mL, intravenous, q8h PRN, Perri Boland MD sucralfate (Carafate) tablet 1 g, 1 g, oral, BID AC, Carlton Angulo MD, 1 g at 09/20/25 0607 Cosigned by Volodymyr Knott MD at 09/20/2025 8:31 PM EDT Associated attestation - Volodymyr Knott MD - 09/20/2025 8:31 PM EDT By using the attestations below, the signing clinician agrees that I have read and verify that thedocumentation has been personally reviewed by me and ensure that the documentation accurately reflects the encounter. GC: I performed the maddox portion(s) of the service and participated in the management and confirm the resident's documentation. Please note there may be an additional personal documentation from me. * Chhaya Rascon OT - 09/19/2025 3:57 PM EDT Occupational Therapy Occupational Therapy Evaluation Patient Name: Rolando Boyd : 1935 Today's Date: 09/19/2025 Start Time: 1336 Stop Time: 1359 Time Calculation (min): 23 min OT Evaluation Time Entry OT Evaluation (Moderate) Time Entry: 23 General Subjective: Patient stated he first needed to use urinal. Patient then participated in OT evaluation and was friendly, joking, and offering candy to staff who entered the room. The patient's caregiver was present. The patient stated he thought he was functioning at baseline ADL level. At end of session, staff came to take patient to slabber. Patient Summary: Patient is an 89 year old male who presented from [facility] with shortness of breath and was diagnosed with a NSTEMI. Patient is scheduled for a cardiac cath later today. OT Diagnosis: Decreased ADL Activity Tolerance secondary to NSTEMI Problem List[1] Medical History[2] Surgical History[3] Precautions Precautions Medical Precautions: fall risk, telemetry Pain Pain Assessment Pain Assessment: No/denies pain Cognition Cognition Arousal/Alertness: Appropriate responses to stimuli Orientation Level: Oriented X4 Following Commands: Follows all commands and directions without difficulty Safety Judgment: Decreased awareness of need for assistance Awareness of Errors: Assistance required to identify errors made, Assistance required to correct errors made Deficits: Fully aware of deficits Attention Span: Appears intact Memory: Appears intact Problem Solving: Able to problem solve independently Communication: Intact Cognition Comments: Patient was joking and pleasant and cooperative. General Assessment General Assessment Hearing: Mild CHIL[place] Skin Integrity: Patient had mediplex padding on coccyx to protect skin. Edema: None noted Hand Dominance: Right Home Living Home Living Type of Home: House Lives With: Alone Home Adaptive Equipment: Rollator, Lift Chair, Wheelchair-manual, Emergency Alert, Other (Comment) (Finger Pulse Oximeter) Home Layout: One level Home Access: Ramped entrance Bathroom Shower/Tub: Walk-in shower, Curtain Bathroom Toilet: Handicapped height Bathroom Equipment: Grab bars in shower, Grab bars around toilet Bathroom Accessibility: rollator accessible Prior Level of Function Prior Function Level of [place]: Needs assistance with ADLs, Needs assistance with homemaking Prior Functional Mobility: Independent with rollator Receives Help From: Family, Home health (CONVEYOR LINE BAKERY WORKER: 3 hrs/day- 5 days a week, 2 hrs/day-2 days a week, Children check in AM and PM before and after work) ADL Assistance: Needs assistance Bath: Independent Toileting: Independent Dressing: Minimal (Needs assist putting socks on. Wears velcro strap adapted shoes.) Grooming: Independent Feeding: Independent Homemaking Assistance: Needs assistance (Patient 's CONVEYOR LINE BAKERY WORKER performs most of the homemaking tasks. Family or CONVEYOR LINE BAKERY WORKER take patient to appointments or to families house.) Meal Prep: Total Laundry: Total Vacuuming: Total Cleaning: Total Gardening: Total Yard Work: (Patient mows the lawn on his riding piano accompanist.) Driving: Independent (Patient walks up to car with rollator but can't load rollator in car. 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 Prior IADLs Static Sitting Balance Static Sitting Balance Static Sitting-Balance Support: Feet supported Static Sitting-Level of Assistance: Distant supervision Static Sitting-Comment/Number of Minutes: Sitting edge of bed Dynamic Sitting Balance Dynamic Sitting Balance Dynamic Sitting-Balance Support: Feet supported Dynamic Sitting-Balance: Forward lean, Reaching for objects Dynamic Sitting Balance-Level of Assistance: Distant supervision Dynamic Sitting-Comments: EOB Static Standing Balance Static Standing Balance Static Standing-Balance Support: With device (RW) Static Standing-Level of Assistance: Close supervision Static Standing-Comment/Number of Minutes: RW Dynamic Standing Balance Dynamic Standing Balance Dynamic Standing-Balance Support: With device Dynamic Standing-Balance: Forward lean, Lateral lean Dynamic Standing Balance-Level of Assistance: Close supervision Dynamic Standing-Comments: RW ADL ADL Grooming Assistance: Stand by Grooming Deficit: Setup, Supervision/safety (Sitting edge of bed) LE Dressing Assistance: Total LE Dressing Deficit: Don/doff L sock, Don/doff R sock Toileting Assistance with Device: Stand by (Patient used urinal at beginning of session.) Toileting Deficit: Setup Bed Mobility Bed Mobility Bed Mobility: Yes Bed Mobility 1 Bed Mobility From 1: Supine Bed Mobility Type 1: To and from Bed Mobility to 1: Short sit Level of Assistance 1: Moderate assistance Bed Mobility Comments 1: Patient needed some assist lifting his trunk up off the bed and guiding legs to side of bed. Patient needed CGA with legs to return to bed. Transfers Transfers Ambulation comments: Patient took 2 side steps to head of bed with close supervision. Transfer: Yes Transfer 1 Transfer From 1: Bed, Sit Transfer Type 1: To and from Transfer to 1: Stand Technique 1: Sit to stand, Stand to sit Transfer Device 1: rolling walker Transfer Level of Assistance 1: Contact guard Objective General Assessments Activity Tolerance Endurance: Stage II Stage II (METs 1.4-2.0) - Sittin-10 mins Activity Tolerance Comments: Patient sat on edge for ADL tasks and stood briefly at side of bed. Patient did not demonstrate signs of SOB. Patient's O2 saturatio rate stayed above 92% on room air. Vision - Basic Assessment Current Vision: Wears glasses all the time Vision - Complex Assessment Acuity: Able to read normal print without difficulty (Able to read menu with glasses. Patient reports no changes in vision since admission.) Sensation Light Touch: Partial deficits in the RUE Perception Inattention/Neglect: Appears intact Initiation: Appears intact Motor Planning: Appears intact Perseveration: Not present Coordination Movements are Fluid and Coordinated: Yes Hand Function Gross Grasp: Functional Coordination: Functional Extremity Assessments RUE Assessment RUE Assessment: Exceptions to WFL (AROM: Shoulder flexion~45 secondary to arthritic changes. Also arthritis in hands. Strength=WFL) LUE Assessment LUE Assessment: Exceptions to WFL (AROM: Shoulder flexion~45 degrees secondary to arthritis. Strength is WNL throughout arms.) RLE Assessment RLE Assessment: (See PT evaluation) LLE Assessment LLE Assessment: (See PT evaluation) Outcome Assessments AM-PAC 6 Clicks Putting on and taking off regular lower body clothing?: A Lot (Mod/Max Assist) Bathing(Including washing,rinsing,drying)?: A Little (Min Assist/Contact Guard/Supervision) Toileting, which includes using the toilet,bedpan,or urinal?: None (Independent) Putting on and taking off regular upper body clothing?: A Little (Min Assist/Contact Guard/Supervision) Taking care of personal grooming such as brushing teeth?: A Little (Min Assist/Contact Guard/Supervision) Eating meals?: None (Independent) Total Score OT [facility]: 19 Assessment/Plan OT Assessment OT Impairments: Decreased ADL status, Decreased endurance, Decreased IADLs, Decreased upper extremity range of motion, Decreased functional mobility OT Assessment/TAXI PROPRIETOR Summary: Patient presents with decreased ADL activity tolerance and functional mobility. Patient stated he did not want to learn how to use AE like a sock aide because he has CONVEYOR LINE BAKERY WORKER toassist with ADLS/IADLS at home. Patient was agreeable to improving his mobility and endurance during ADLS. Patient would benefit from skilled OT treatment to improve his standing tolerance, standing balance, and to improve independence with toileting, and performing ADLS at sinkside. OT to also instruct patient on energy conservation techniques. Prognosis: Good Evaluation/Treatment Tolerance: Patient tolerated treatment well Medical Staff Made Aware: Yes Strengths: Ability to acquire knowledge, Access to adaptive/assistive products, Housing layout, Support of extended family/friends Barriers to Discharge: Comorbidities OT Education/Comments: Instructed patient on role of OT, AE, DME, and bed mobility techniques. Plan Level of assist: 1 assist Treatment Interventions: ADL retraining, Patient/family training, Equipment evaluation/education, Functional transfer training, Neuromuscular reeducation, Endurance training, Compensatory technique education OT Plan: Skilled OT OT Frequency: 5 times per week OT Discharge Recommendations: Patient is able to return to prior living environment Equipment Recommended: none OT - Discharge Recommendations Placed: Yes OT Goals Multi-Disciplinary Problems (from Occupational Therapy) Active Problems Problem: Balance Start Date: 09/19/25 Goal Start Date Expected End Date End Date LTG - Patient will maintain balance to allow for safe mobility 09/19/25 10/06/25 -- Goal Start Date Expected End Date End Date LTG - Patient will tolerate standing for 5 minutes while completing ADL/functional activity 09/19/25 10/06/25 -- Problem: Bathing Start Date: 09/19/25 Goal Start Date Expected End Date End Date LTG - Patient will utilize adaptive techniques to bathe body with modified independent 09/19/25 10/06/25 -- Problem: Dressing Upper Extremities Start Date: 09/19/25 Goal Start Date Expected End Date End Date LTG - Patient will retrieve clothes via wheeled walker and dress UB with modified independence. 09/19/25 10/06/25 -- Problem: Grooming Start Date: 09/19/25 Goal Start Date Expected End Date End Date STG - Patient will tolerate standing sink side to complete grooming with modified independent 09/19/25 10/06/25 -- Problem: Safety Start Date: 09/19/25 Goal Start Date Expected End Date End Date LTG - Patient will demonstrate good safety techniques during functional mobility tasks. 09/19/25 10/06/25 -- Problem: Toileting Start Date: 09/19/25 Goal Start Date Expected End Date End Date LTG - Patient will utilize adaptive techniques/equipment to complete daily toileting tasks with modified independent 09/19/25 10/06/25 -- Problem: Transfers Start Date: 09/19/25 Goal Start Date Expected End Date End Date STG - Patient will perform bed mobility with modified independence. 09/19/25 10/06/25 -- Goal Start Date Expected End Date End Date STG - Patient will transfer to chair or wheelchair with modified independence. 09/19/25 10/06/25 -- Goal Start Date Expected End Date End Date STG - Patient will perform toilet transfer with modified independent using walker 09/19/25 10/06/25-- Problem: OT Misc Start Date: 09/19/25 Goal Start Date Expected End Date End Date LTG - Patient will identify 1 energy conservation technique to use during ADL/Functional tasks. 09/19/25 10/06/25 -- Goal Start Date Expected End Date End Date LTG - Patient will participate in 20+ minutes of dynamic sitting/standing tasks to improve endurance. 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 Dizziness and giddiness DVT (deep venous thrombosis) ([facility]) History of cardiovascular disorder Chronic disease of cardiovascular system Encounter for long-term (current) use of insulin ([facility]) Hyperlipidemia Mitral valve disorder Morbid obesity with BMI of 40.0-44.9, adult ([facility]) Osteoarthritis of right hip Pulmonary embolism ([facility]) Right knee DJD CAD S/P percutaneous coronary angioplasty Implantable cardioverter-defibrillator (ICD) in situ NSTEMI (non-ST elevated myocardial infarction) ([facility]) SAULO (obstructive sleep apnea) 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) ([facility]) Class 1 obesity due to excess calories with serious comorbidity and body mass index (BMI) of 34.0 to 34.9 in adult COPD without exacerbation ([facility]) [2] Past Medical History: Diagnosis Date Atrial fibrillation ([facility]) [place]estive [place] Coronary artery disease Heart valve disease Hyperlipidemia Hypertension [3] Past Surgical History: Procedure Laterality Date INSERT / REPLACE / REMOVE PACEMAKER * Tracy Ellison, PT - 09/19/2025 1:30 PM EDT Physical Therapy Physical Therapy Treatment Patient Name: Rolando Boyd : 1935 Today's Date: 09/19/2025 Problem List[1] Start Time: 1104 Stop Time: 1132 Time Calculation (min): 28 min PT Therapeutic Procedures Time Entry Therapeutic Activity Time Entry: 28 Objective General Visit Information: PT Last Visit PT Received On: 09/19/25 General Subjective: Pt agreeable for PT treatment, returned to bed after toileting and walkin hallway, calllight in reach, RN aware. Pt caregiver present for part of session.Pt awaiting heart cath later today. Vision - Basic Vision - Basic Assessment Current Vision: Wears glasses all the time Vision - Complex Precautions Precautions Medical Precautions: fall risk, telemetry Pain Pain Assessment Pain Assessment: No/denies pain Patient's Stated Pain Goal: No pain Cognition Cognition Overall Cognitive Status: Within Functional Limits Arousal/Alertness: Appropriate responses to stimuli Orientation Level: Oriented X4 Following Commands: Follows all commands and directions without difficulty Safety Judgment: Decreased awareness of need for assistance Awareness of Errors: Assistance required to correct errors made, Assistance required to identify errors made, Decreased awareness of errors Deficits: Fully aware of deficits Attention Span: Appears intact Memory: Appears intact Problem Solving: Able to problem solve independently Communication: Intact Cognition Comments: Pt pleasant and cooperative General Assessment General Assessment Skin Integrity: no open areas Edema: none Static Sitting Balance Static Sitting Balance Static Sitting-Balance Support: Feet supported Static Sitting-Level of Assistance: Distant supervision Static Sitting-Comment/Number of Minutes: EOB, toilet Dynamic Sitting Balance Dynamic Sitting Balance Dynamic Sitting-Balance: Forward lean, Lateral lean Dynamic Sitting Balance-Level of Assistance: Distant supervision Dynamic Sitting-Comments: EOB, toilet Static Standing Balance Static Standing Balance Static Standing-Balance Support: With device Static Standing-Level of Assistance: Close supervision Static Standing-Comment/Number of Minutes: RW Dynamic Standing Balance Dynamic Standing Balance Dynamic Standing-Balance Support: With device Dynamic Standing-Balance: Forward lean, Lateral lean Dynamic Standing Balance-Level of Assistance: Contact guard Dynamic Standing-Comments: RW General Assessments: Activity Tolerance Endurance: Stage III Stage II (METs 1.4-2.0) - Sittin-20 mins Cognition Overall Cognitive Status: Within Functional Limits Arousal/Alertness: Appropriate responses to stimuli Orientation Level: Oriented X4 Following Commands: Follows all commands and directions without difficulty Safety Judgment: Decreased awareness of need for assistance Awareness of Errors: Assistance required to correct errors made, Assistance required to identify errors made, Decreased awareness of errors Deficits: Fully aware of deficits Attention Span: Appears intact Memory: Appears intact Problem Solving: Able to problem solve independently Communication: Intact Cognition Comments: Pt pleasant and cooperative Treatment: Therapeutic Activity Therapeutic Activity Time Entry: 28 Therapeutic Activity 1: bed mobility Therapeutic Activity 2: transfers with RW x2: bed , toilet Therapeutic Activity 3: gait with RW Therapeutic Activity 4: standing balance with RW Ambulation 1 Device 1: Rolling walker Assistance 1: Minimum assistance Quality of Gait 1: pt amb in love with flexed trunk, wider ANASTACIO, lateral wt shifts, forward head.No dizziness or LOB noted. Comments/Distance (ft) 1: 40 ft x1 Stairs Stairs: No Bed Mobility Bed Mobility: Yes Bed Mobility 1 Bed Mobility From 1: Supine Bed Mobility Type 1: To and from Bed Mobility to 1: Short sit Level of Assistance 1: Moderate assistance Bed Mobility Comments 1: pt sleeps in a flat bed at home without rails- pt needed to use railing and had trunk support to sit up, SBA to lay down Transfers Ambulation comments: Pt needed encouragement to participate, but Transfer 1 Transfer From 1: Toilet Transfer Type 1: To Transfer to 1: Bed Technique 1: Sit to stand, Stand to sit Transfer Device 1: rolling walker Transfer Level of Assistance 1: Moderate assistance Trials/Comments 1: mod assit for wt shift and lift from low toilet using railing Transfers 2 Transfer From 2: Bed Transfer Type 2: To Transfer to 2: Stand ->stand to toilet Technique 2: Stand to sit, Sit to stand Transfer Level of Assistance 2: Minimum assistance Trials/Comments 2: prt asking for bed height to be raised ~2 inches to simulate bed at home Transfer device: RW Outcome Assessments 6 Clicks (Mobility) Help from another person turning from your back to your side while in a flat bed without using bedrails: A little Help from another person moving from lying on your back to sitting on the side of a flat bed without using bedrails: A little Help from another person moving to and from a bed to a chair (including a wheelchair): A little Help from another person standing up from a chair using your arms (e.g. wheelchair or bedside chair): A little Help from another person to walk in hospital room: A little Help from another person climbing 3-5 steps with a railing: A lot Mobility 6 Clicks T-Score: 17 Assessment/Plan PT Assessment PT Assessment: pt able to demonstrate ambulation today in household level distance. Weakness noted in sit to stands from low surface. Cont per POC. Prognosis: Good Barriers to Discharge: Comorbidities Evaluation/Treatment Tolerance: Patient tolerated treatment well Medical Staff Made Aware: Yes PT Education/Comments: Mobility Plan Level of assist: 1 assist Treatment/Interventions: Functional transfer training, LE strengthening/ROM, Gait training, Bed mobility, Balance training, Equipment eval/education, Endurance training PT Plan: Skilled PT PT Frequency: 5 times per week PT Discharge Recommendations: Patient is able to return to prior living environment Equipment Recommended: none PT - Discharge Recommendations Placed: Yes Goals: Multi-Disciplinary Problems (from Physical Therapy) Active Problems Problem: Balance Start Date: 09/18/25 Goal Start Date Expected End Date End Date LTG - Patient will maintain standing and sitting balance to allow for completion of daily activities 09/18/25 10/02/25 -- Goal Start Date Expected End Date End Date LTG - Patient will tolerate standing for 10 minutes for ADL activity and mobility 09/18/25 10/02/25-- Problem: Mobility Start Date: 09/18/25 Goal Start Date Expected End Date End Date LTG - Patient will ambulate 50 feet with no assistance using rolling walker to prepare for safe discharge 09/18/25 10/02/25 -- Problem: Safety Start Date: 09/18/25 Goal Start Date Expected End Date End Date LTG - Patient will utilize safety techniques during functional mobility to decrease risk of falls 09/18/25 10/02/25 -- Problem: Transfers Start Date: 09/18/25 Goal Start Date Expected End Date End Date LTG - Patient will transfer from bed to chair with no assistance using rolling walker to prepare for safe discharge 09/18/25 10/02/25 -- Goal Start Date Expected End Date End Date LTG - Patient will perform bed mobility with no assistance 09/18/25 10/02/25 -- Problem: Compromised Skin Integrity Start Date: 09/18/25 Goal Start Date Expected End Date End Date LTG - Patient will demonstrate appropriate pressure relief techniques 09/18/25 10/02/25 -- Problem: PT Misc Start Date: 09/18/25 Goal Start Date Expected End Date End Date LTG - Pt will improve functional mobility to increase 6 clicks score by 2-4 points to maximize safety and IND 09/18/25 10/02/25 -- Goal Start Date Expected End Date End Date LTG - Pt will improve endurance to maximize tolerance of PT sessions to prepare for discharge. 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 Dizziness and giddiness DVT (deep venous thrombosis) ([facility]) History of cardiovascular disorder Chronic disease of cardiovascular system Encounter for long-term (current) use of insulin ([facility]) Hyperlipidemia Mitral valve disorder Morbid obesity with BMI of 40.0-44.9, adult ([facility]) Osteoarthritis of right hip Pulmonary embolism ([facility]) Right knee DJD CAD S/P percutaneous coronary angioplasty Implantable cardioverter-defibrillator (ICD) in situ NSTEMI (non-ST elevated myocardial infarction) ([facility]) SAULO (obstructive sleep apnea) 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) ([facility]) Class 1 obesity due to excess calories with serious comorbidity and body mass index (BMI) of 34.0 to 34.9 in adult COPD without exacerbation ([facility]) * Mary De Anda MD - 09/19/2025 11:10 AM EDT Images from the original note were not included. [facility] Medicine Daily Progress Note - 09/19/2025 11:10 AM; Room: [address] [place] [address] Admission: 09/17/2025 2:26 AM; Length of stay: 2 days THE HOSPITALIST TEAM PREFERS TO USE [employer] FOR NON-URGENT COMMUNICATION 7AM- 7PM. IF I DO NOT RESPOND WITHIN 20 MINUTES OR URGENT MATTERS, PLEASE CALL THROUGH THE CLEANER WINDOW. FROM 7PM-7AM, PLEASE PAGE [phone](COVR). Code Status: Full Code Barriers to Discharge: cardiac cath Expected Discharge Date: pending cardiac cath findings Discharge Destination: home Overview Alvin Boyd is an 89 y.o. male with history of HTN, HLD, CAD s/p stent placement, HF s/p BiV pacemaker placement, and COPD presenting from [facility] with SOB and dx with NSTEMI. Patient was transferred from [facility] where he was evaluated because of shortness of breath and some chest discomfort. After investigation patient was noted to have NSTEMI with troponin of over 10,000. He came with no heparinization but was said to be on Coumadin. INR is not noted. On arrival at [facility] bed, patient was lying in bed without any pain, denying other complaints. He states he is doing very well. His blood pressure was 117/71, pulse rate 66 respiratory was 14 on pulse oximeter was 97% on room air labs are still pending but we do know that troponin is over of 10,706. Patient has been diagnosed with NSTEMI. IV heparin started. Cardiology consulted. Will ensure there is good oxygenation and monitor electrolytes and correct any abnormalities. Subjective No acute overnight events reported. Patient is resting comfortably in bed without increased work ofbreathing or signs of respiratory distress. He continues to wear supplemental oxygen, currently on 2 liters, maintaining an SpO2 of 100%. Patient reports no home oxygen requirement. He denies any shor tness of breath or chest pain at this time. He does complain of cough productive of minimal sputum,but notes history of COPD, and states that this is his chronic cough and is unchanged from baseline. He reports difficulty sitting up in bed today. Family at bedside states that this is a significantchange for the patient as he is normally fully ambulatory with walker assistance and is able to do all ADLs independently. Patient was scheduled for cardiac catheterization yesterday, but was unable to have procedure due to supratherapeutic INR of 2.19. A one-time dose of vitamin K was given. Today, INR is 1.56. Physical Exam Visit Vitals BP 145/77 (BP Location: Left arm, Patient Position: Lying) Pulse 60 Temp 36.6 ??C (97.8 ??F) (Temporal) Resp 17 Intake/Output Summary (Last 24 hours) at 09/19/2025 1110 Last data filed at 09/19/2025 1000 Gross per 24 hour Intake 360 ml Output 300 ml Net 60 ml Physical Exam Constitutional: Appearance: Normal appearance. He is obese. HENT: Head: Normocephalic. Mouth/Throat: Mouth: Mucous membranes are moist. Eyes: Extraocular Movements: Extraocular movements intact. Pupils: Pupils are equal, round, and reactive to light. Cardiovascular: Rate and Rhythm: Normal rate and regular rhythm. Pulmonary: Effort: Pulmonary effort is normal. Abdominal: General: Abdomen is flat. Musculoskeletal: General: No swelling. Skin: General: Skin is warm. Neurological: General: No focal deficit present. Mental Status: He is alert. Psychiatric: Mood and Affect: Mood normal. Estimated body mass index is 32.54 kg/m?? as calculated from the following: Height as of this encounter: 1.727 m (5' 8 ). Weight as of this encounter: 97.1 kg (214 lb). Assessment and Plan Assessment & Plan NSTEMI (non-ST elevated myocardial infarction) ([facility]) CAD (coronary artery disease) - CAD s/p KISHAN to LAD & RCA in 2012, HFimpEF s/p BiV Pacemaker placement 2017 - Presented to [facility] with a troponin of 10,000 and transferred to [facility] - Troponin 4674, 3682, 3331, 2641 - Cardiology following - Heparin drip discontinued - Patient does not take aspirin at home due to anticoagulation therapy for atrial fibrillation - Cardiac catheterization deferred to today due to supratherapeutic INR of 2.19 yesterday - Patient received one time dose of Vitamin K 2.5 mg yesterday - INR is 1.56 at this time-plan for cardiac cath today - Monitor and replace electrolytes per protocol, K > 4, Mg > 2 Chronic atrial fibrillation ([facility]) Presence of biventricular cardiac pacemaker - Permanent A.F. 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 Reports bennie could not find a mask that works for him. - He reports he does not want to wear a CPAP when I offered to consult our pulmonary navigator. 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) ([facility]) - TTE 09/17/25 with EF of 40% and severe left atrial enlargement - Continue lasix 20 mg daily - Continue coreg 6.25mg po bid - PT/OT to evaluate for discharge planning Class 1 obesity due to excess calories with serious comorbidity and body mass index (BMI) of 34.0 to 34.9 in adult - Encourage weight loss. COPD without exacerbation ([facility]) - Continue singulair. Attending attestation: Discussed with the medical student, agree with above. Patient seen evaluatedbedside, discussed with RN. Patient reporting no new symptoms, no chest pain or increased shortnessof breath. Physical exam: Elderly male, nontoxic appearance. Lungs: Overall good air entry to both lung nolan with no added sounds. A/P: NSTEMI, extensive CAD history, pending coronary angiogram today with cardiology team. Continue with aspirin, atorvastatin, carvedilol and furosemide. Continue with IV heparin. # Atrial fibrillation on warfarin, will evaluate if he will be a good candidate for Eliquis VTE Prophylaxis: IV heparin Scheduled Meds aspirin, 81 mg, oral, Daily with breakfast atorvastatin, 80 mg, oral, Nightly carvedilol, 6.25 mg, oral, BID with meals DULoxetine, 30 mg, oral, Daily ferrous sulfate, 325 mg, oral, Daily with breakfast furosemide, 20 mg, oral, Daily montelukast, 10 mg, oral, Daily pantoprazole, 40 mg, oral, Daily sucralfate, 1 g, oral, BID AC [Held by provider] heparin, 0-28 Units/kg/hr, Last Rate: Stopped (09/18/25 1052) Pertinent Investigations Hematology: Results from last 7 days Lab Units 09/19/25 0600 09/18/25 0433 09/17/25 0957 09/17/25 0350 WBC AUTO 10*3/uL -- 8.30 -- 9.65 HEMOGLOBIN g/dL -- 12.0* -- 11.6* HEMATOCRIT % -- 37.5* -- 35.5* MCV fL -- 97.2 -- 94.9 PLATELETS AUTO 10*3/uL -- 163 -- 184 INR 1.56* 2.19* < > -- < > = values in this interval not displayed. Chemistry: Results from last 7 days Lab Units 09/19/25 0600 09/18/25 0745 09/17/25 0350 SODIUM mmol/L 137 138 136 POTASSIUM mmol/L 3.4* 3.8 3.4* CHLORIDE mmol/L 108* 107 106 CO2 mmol/L 21 23 21 BUN mg/dL 28* 26* 33* CREATININE mg/dL 0.94 0.89 1.04 GLUCOSE mg/dL 116* 120* 133* MAGNESIUM mg/dL 1.9 2.1 1.7* CALCIUM mg/dL 8.9 8.9 8.7 Results from last 7 days Lab Units 09/17/25 0350 AST U/L 21 ALT U/L 16 ALK PHOS U/L 69 BILIRUBIN TOTAL mg/dL 1.1* Historical Values: (Includes values prior to this admission) Lab Results Component Value Date HDL 34 09/18/2025 LDL 72 09/18/2025 No results found for: [id number] , IRON , TIBC , C3 , C4 , MIKE , CANCA , ASO , PSA , CEA , CA125 , CA199 , AFP , CA153 Imaging Complete Echo (TTE) w/wo Imaging Agent, Strain, 3D, Bubble Study 1 1 [facility] Heart Station [address] [place] [address] [phone] (fax) Echocardiogram-[facility] Name: ALVIN BOYD Study Date: 09/18/2025 10:20 AM B/P: 136 mmHg/90 mmHg HR: 123 bpm Date of : 1935 Location: [facility] Height: 68 in. Age: 89 year(s) Patient Room: 3184 Weight: 212 lb. Gender: Male Patient Status: InPt BSA: 2.09 m2 Indication: Heart failure, Atrial Fibrillation, Pacemaker/AICD, CAD, COPD Examination: Echocardiogram (Complete), Lumason Contrast Image Quality: Technically Difficult study Patient Consent: Procedure explained to patient Exam Details Contrast: I.V. dose of Lumason Conclusions Left Ventricle: The left ventricle is normal size. Global left ventricular systolic function is difficult to assess but appears reduced. The calculated Biplane EF is 40 %. Left ventricular wall thickness is mildly increased. Right Ventricle: The right ventricle appears normal in size. Right ventricular systolic function appears normal. Doppler studies suggest mildly elevated right sided pressures. Left Atrium: The left atrium is severely enlarged. Aortic Valve: Restricted opening movement of the aortic valve is present. Tricuspid Valve: Mild tricuspid regurgitation. Overall Conclusions: Due to suboptimal imaging Lumason contrast was administered for opacification and better delineation of endocardial borders. Measurements Left Ventricle Label Value Normal Value LVOTd 2.7 cm (19cm - 21cm) LVOT VTI 14.2 cm (18cm - 22cm) LVOT PGmax 2 mmHg LVDd, 2D 4.47 cm (4.2cm - 5.9cm) LVDs, 2D 3.16 cm (2.1cm - 4cm) IVSd, 2D 1.34 cm (0.6cm - 1.1cm) LVPWd, 2D 1.2 cm (0.6cm - 1cm) LVEF, BP 40 % (55% - 65%) LV Mass, 2D ASE 212.89 g LV Mass Index, 2D ASE 101.9 g/m?? (50g/m?? - 102.4g/m??) RWT, MM 0.54 (0 - 0.42) LVSVI, 2D 24.4 ml/m2 LVOT PGmean 1 mmHg LVSV_LVOT 81 ml Left Atrium Label Value Normal Value LA Volume, BP 104 ml (18ml - 58ml) LAESV index, BP 49.8 ml/m?? Aortic Valve Label Value Normal Value AV DVI 0.37 AV VTI 37.4 cm Tricuspid Valve Label Value Normal Value RA Pressure 3 mmHg RVSP 42 mmHg TR Vmax 3.12 m/s Aorta Label Value Normal Value AoRoot, 2D 3.4 cm (1.4cm - 3.8cm) Valvular Assessment LVOT 0.7 - 1.1 m/sec Aortic Valve 1.0 - 1.7 m/sec Mitral Valve 0.6 - 1.3 m/sec Tricuspid Valve 0.3 - 0.7 m/sec Pulmonic Valve 0.6 - 0.9 m/sec Regurgitation No No Mild No Max Velocity 0.67 m/sec 1.83 m/s Max Gradient 13.00 mmHg Mean Gradient 7.00 mmHg Valve Area 2.1 cm?? Findings Left Ventricle: The left ventricle is normal size. Global left ventricular systolic function is difficult to assess but appears reduced. The calculated Biplane EF is 40 %. Left ventricular wall thickness is mildly increased. The basal anteroseptal, basal inferoseptal, basal inferior, mid anteroseptal, mid inferoseptal, mid inferior, apical septal, apical inferior and apex left ventricular wall segments are hypokinetic. The basal anterior, basal inferolateral, basal anterolateral, mid anterior, mid inferolateral, mid anterolateral, apical anterior and apical lateral left ventricular wall segments are akinetic. Right Ventricle: The right ventricle appears normal in size. Right ventricular systolic function appears normal. Doppler studies suggest mildly elevated right sided pressures. Left Atrium: The left atrium is severely enlarged. Right Atrium: Right atrium is poorly visualized. Mitral Valve: Mitral valve appears normal. No mitral regurgitation. Aortic Valve: Restricted opening movement of the aortic valve is present. Aortic stenosis maybe underestimated due to poor LV systolic function. No aortic valve regurgitation. Tricuspid Valve: Normal tricuspid valve. Mild tricuspid regurgitation. Pulmonic Valve: Normal pulmonary valve. No pulmonary regurgitation. Aorta: The aortic root is normal in size. Great Vessels: IVC: The IVC is not well visualized. Pericardium: No pericardial effusion. Procedure Staff Reading Group: [facility] Facility Maintenance Mechanic: Shawn Masterson RDCS Ordering Physician: LUNA KIMBLE Wall Motion Scores -1 - hyperkinesia, 0 - not evaluated, 1 - normal, 2 - hypokinesia, 3 - akinesia, 4 - dyskinesia Discharge Planning Expected Discharge Disposition: Home or Self Care () PT Discharge Recommendations: Patient is able to return to prior living environment Signed [address] MS3 [facility] Medicine 09/19/2025 11:10 AM * Thomas Morrison MD - 09/19/2025 9:19 AM EDT Images from the original note were not included. Cardiology Progress Note Subjective 09/19: Patient seen and examined at bedside this morning. Afebrile and hemodynamically stable, saturating well on 2 L O2. K3.4, troponins downtrending, LDL 59, hemoglobin 12, INR 1.56 (2.19). No acute events overnight. Denies chest pain. Continues to have shortness of breath with good SpO2 on 2L. 09/18: Patient seen and examined at bedside. Afebrile and hemodynamically stable, satting well on 2 L. 1.9 L UOP. Troponins continue to downtrend, last at 2641. INR 2.19, hemoglobin 12. Awaiting echocardiogram and Coronary angiogram. No acute events overnight, Patient denies any chest pain or dyspnea. Subjective: Rolando Boyd is a 89 y.o. 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 Patient was transferred from OSH where he was evaluated with dyspnea and chest discomfort. Troponins were elevated greater than 10,000. Patient diagnosed with NSTEMI and transferred to [facility] for further management. Initial labs: K3.4, Mg 1.7, BNP 1209, troponins 4674, lactate 1.3, and hemoglobin 11.6. Patient started on heparin gtt. and cardiology was consulted. Cardiac history: TTE 05/30/24: LVEF 50 to 55%. Moderate TR and mild AV R and stenosis. Cardiac medications: Warfarin 4 mg, atorvastatin 40 mg, carvedilol 12.5 mg twice daily, and furosemide 20 mg Objective Current Medications[1] Objective: Patient Vitals for the past 24 hrs: BP Temp Temp src Pulse Resp SpO2 Weight 09/19/25 0805 145/77 36.6 ??C (97.8 ??F) Temporal 60 17 99 % -- 09/19/25 0400 116/77 36.2 ??C (97.2 ??F) Temporal 67 14 100 % -- 09/19/25 0240 -- -- -- -- -- -- 97.1 kg (214 lb) 09/19/25 0005 121/70 -- -- 60 14 100 % -- 09/18/25 2000 111/84 36.6 ??C (97.9 ??F) Temporal 60 18 95 % -- 09/18/25 1700 107/65 -- -- 60 -- -- -- 09/18/25 1605 102/60 36.8 ??C (98.2 ??F) Temporal 60 19 98 % -- 09/18/25 1205 124/83 36.1 ??C (96.9 ??F) Temporal 60 14 98 % -- Physical Examination: Physical Exam Vitals reviewed. Eyes: Pupils: Pupils are equal, round, and reactive to light. Cardiovascular: Rate and Rhythm: Normal rate and regular rhythm. Pulmonary: Effort: Pulmonary effort is normal. Musculoskeletal: General: Swelling (right lower extremity swelling (patient had recent knee surgery)) present. Neurological: Mental Status: He is alert and oriented to person, place, and time. Relevant Lab Results Encounter Date: 09/17/25 ECG 12 lead Result Value Ventricular Rate 59 Atrial Rate 241 QRS DURATION 188 QT Interval 524 QTC CALCULATION(BAZETT) 518 R-[place] -37 T Wave [place] 76 Impression Ventricular-paced rhythm with intrinsic complexes Biventricular pacemaker detected Abnormal ECG When compared with ECG of 24-SEP-2017 07:23, Vent. rate has decreased BY 7 BPM Confirmed by Volodymyr Knott ([id number]) on 09/17/2025 10:21:06 AM No results found for: CKTOTAL , CKMB , CKMBINDEX , TROPONINI Complete Echo (TTE) w/wo Imaging Agent, Strain, 3D, Bubble Study Result Date: 09/18/2025 1 1 [facility] Heart Station [address] [place] [address] [phone] (fax) Echocardiogram-[facility] Name: ALVIN BOYD Study Date: 09/18/2025 10:20 AM B/P: 136 mmHg/90 mmHg HR: 123 bpm Date of : 1935 Location: [facility] Height: 68 in. Age: 89 year(s) Patient Room: 3184 Weight: 212 lb. Gender: Male Patient Status: InPt BSA: 2.09 m2 Indication: Heart failure, Atrial Fibrillation, Pacemaker/AICD, CAD, COPD Examination: Echocardiogram (Complete), Lumason Contrast Image Quality: Technically Difficult study Patient Consent: Procedure explained to patient Exam Details Contrast: I.V. dose of Lumason Conclusions Lef t Ventricle: The left ventricle is normal size. Global left ventricular systolic function is difficult to assess but appears reduced. The calculated Biplane EF is 40 %. Left ventricular wall thickness is mildly increased. Right Ventricle: The right ventricle appears normal in size. Right ventricular systolic function appears normal. Doppler studies suggest mildly elevated right sided pressures. Left Atrium: The left atrium is severely enlarged. Aortic Valve: Restricted opening movement of the aortic valve is present. Tricuspid Valve: Mild tricuspid regurgitation. Overall Conclusions: Due to suboptimal imaging Lumason contrast was administered for opacification and better delineation of endocardial borders. Measurements Left Ventricle Label Value Normal Value LVOTd 2.7 cm (19cm - 21cm) LVOT VTI 14.2 cm (18cm - 22cm) LVOT PGmax 2 mmHg LVDd, 2D 4.47 cm (4.2cm - 5.9cm) LVDs, 2D 3.16 cm (2.1cm - 4cm) IVSd, 2D 1.34 cm (0.6cm - 1.1cm) LVPWd, 2D 1.2 cm (0.6cm - 1cm) LVEF, BP 40 % (55% - 65%) LV Mass, 2D ASE 212.89 g LV Mass Index, 2D ASE 101.9 g/m?? (50g/m?? - 102.4g/m??) RWT, MM 0.54 (0 - 0 .42) LVSVI, 2D 24.4 ml/m2 LVOT PGmean 1 mmHg LVSV_LVOT 81 ml Left Atrium Label Value Normal Value LA Volume, BP 104 ml (18ml - 58ml) LAESV index, BP 49.8 ml/m?? Aortic Valve Label Value Normal Value AV DVI 0.37 AV VTI 37.4 cm Tricuspid Valve Label Value Normal Value RA Pressure 3 mmHg RVSP 42 mmHg TR Vmax 3.12 m/s Aorta Label Value Normal Value AoRoot, 2D 3.4 cm (1.4cm - 3.8cm) Valvular Assessment LVOT 0.7 - 1.1 m/sec Aortic Valve 1.0 - 1.7 m/sec Mitral Valve 0.6 - 1.3 m/sec Tricuspid Valve 0.3- 0.7 m/sec Pulmonic Valve 0.6 - 0.9 m/sec Regurgitation No No Mild No Max Velocity 0.67 m/sec 1.83m/s Max Gradient 13.00 mmHg Mean Gradient 7.00 mmHg Valve Area 2.1 cm?? Findings Left Ventricle: The left ventricle is normal size. Global left ventricular systolic function is difficult to assess but appears reduced. The calculated Biplane EF is 40 %. Left ventricular wall thickness is mildly increased. The basal anteroseptal, basal inferoseptal, basal inferior, mid anteroseptal, mid inferoseptal, mid inferior, apical septal, apical inferior and apex left ventricular wall segments are hypokinetic. The basal anterior, basal inferolateral, basal anterolateral, mid anterior, mid inferolateral, mid anterolateral, apical anterior and apical lateral left ventricular wall segments are akinetic. Right Ventricle: The right ventricle appears normal in size. Right ventricular systolic function appears normal. Doppler studies suggest mildly elevated right sided pressures. Left Atrium: The left atrium is severely enlarged. Right Atrium: Right atrium is poorly visualized. Mitral Valve: Mitral valve appears normal. No mitral regurgitation. Aortic Valve: Restricted opening movement of the aortic valve is present. Aortic stenosis maybe underestimated due to poor LV systolic function. No aortic valve regurgitation. Tricuspid Valve: Normal tricuspid valve. Mild tricuspid regurgitation. Pulmonic Valve: Normal pulmonary valve. No pulmonary regurgitation. Aorta: The aortic root is normal in size. Great Vessels: IVC: The IVC is not well visualized. Pericardium: No pericardial effusion. Procedure S taff Reading Group: [facility] Facility Maintenance Mechanic: Shawn Masterson RDCS Ordering Physician: LUNA KIMBLE Wall Motion Scores -1 - hyperkinesia, 0 - not evaluated, 1 - normal, 2 - hypokinesia, 3 - akinesia, 4 - dyskinesia No nuclear medicine results found for the past 12 months Relevant Imaging Results Complete Echo (TTE) w/wo Imaging Agent, Strain, 3D, Bubble Study 1 1 [facility] Heart Station [address] [id number] [phone] (fax) Echocardiogram-[facility] Name: ALVIN BOYD Study Date: 09/18/2025 10:20 AM B/P: 136 mmHg/90 mmHg HR: 123 bpm Date of : 1935 Location: [facility] Height: 68 in. Age: 89 year(s) Patient Room: 3184 Weight: 212 lb. Gender: Male Patient Status: InPt BSA: 2.09 m2 Indication: Heart failure, Atrial Fibrillation, Pacemaker/AICD, CAD, COPD Examination: Echocardiogram (Complete), Lumason Contrast Image Quality: Technically Difficult study Patient Consent: Procedure explained to patient Exam Details Contrast: I.V. dose of Lumason Conclusions Left Ventricle: The left ventricle is normal size. Global left ventricular systolic function is difficult to assess but appears reduced. The calculated Biplane EF is 40 %. Left ventricular wall thickness is mildly increased. Right Ventricle: The right ventricle appears normal in size. Right ventricular systolic function appears normal. Doppler studies suggest mildly elevated right sided pressures. Left Atrium: The left atrium is severely enlarged. Aortic Valve: Restricted opening movement of the aortic valve is present. Tricuspid Valve: Mild tricuspid regurgitation. Overall Conclusions: Due to suboptimal imaging Lumason contrast was administered for opacification and better delineation of endocardial borders. Measurements Left Ventricle Label Value Normal Value LVOTd 2.7 cm (19cm - 21cm) LVOT VTI 14.2 cm (18cm - 22cm) LVOT PGmax 2 mmHg LVDd, 2D 4.47 cm (4.2cm - 5.9cm) LVDs, 2D 3.16 cm (2.1cm - 4cm) IVSd, 2D 1.34 cm (0.6cm - 1.1cm) LVPWd, 2D 1.2 cm (0.6cm - 1cm) LVEF, BP 40 % (55% - 65%) LV Mass, 2D ASE 212.89 g LV Mass Index, 2D ASE 101.9 g/m?? (50g/m?? - 102.4g/m??) RWT, MM 0.54 (0 - 0.42) LVSVI, 2D 24.4 ml/m2 LVOT PGmean 1 mmHg LVSV_LVOT 81 ml Left Atrium Label Value Normal Value LA Volume, BP 104 ml (18ml - 58ml) LAESV index, BP 49.8 ml/m?? Aortic Valve Label Value Normal Value AV DVI 0.37 AV VTI 37.4 cm Tricuspid Valve Label Value Normal Value RA Pressure 3 mmHg RVSP 42 mmHg TR Vmax 3.12 m/s Aorta Label Value Normal Value AoRoot, 2D 3.4 cm (1.4cm - 3.8cm) Valvular Assessment LVOT 0.7 - 1.1 m/sec Aortic Valve 1.0 - 1.7 m/sec Mitral Valve 0.6 - 1.3 m/sec Tricuspid Valve 0.3 - 0.7 m/sec Pulmonic Valve 0.6 - 0.9 m/sec Regurgitation No No Mild No Max Velocity 0.67 m/sec 1.83 m/s Max Gradient 13.00 mmHg Mean Gradient 7.00 mmHg Valve Area 2.1 cm?? Findings Left Ventricle: The left ventricle is normal size. Global left ventricular systolic function is difficult to assess but appears reduced. The calculated Biplane EF is 40 %. Left ventricular wall thickness is mildly increased. The basal anteroseptal, basal inferoseptal, basal inferior, mid anteroseptal, mid inferoseptal, mid inferior, apical septal, apical inferior and apex left ventricular wall segments are hypokinetic. The basal anterior, basal inferolateral, basal anterolateral, mid anterior, mid inferolateral, mid anterolateral, apical anterior and apical lateral left ventricular wall segments are akinetic. Right Ventricle: The right ventricle appears normal in size. Right ventricular systolic function appears normal. Doppler studies suggest mildly elevated right sided pressures. Left Atrium: The left atrium is severely enlarged. Right Atrium: Right atrium is poorly visualized. Mitral Valve: Mitral valve appears normal. No mitral regurgitation. Aortic Valve: Restricted opening movement of the aortic valve is present. Aortic stenosis maybe underestimated due to poor LV systolic function. No aortic valve regurgitation. Tricuspid Valve: Normal tricuspid valve. Mild tricuspid regurgitation. Pulmonic Valve: Normal pulmonary valve. No pulmonary regurgitation. Aorta: The aortic root is normal in size. Great Vessels: IVC: The IVC is not well visualized. Pericardium: No pericardial effusion. Procedure Staff Reading Group: [facility] Facility Maintenance Mechanic: Shawn Masterson RDCS Ordering Physician: LUNA KIMBLE Wall Motion Scores -1 - hyperkinesia, 0 - not evaluated, 1 - normal, 2 - hypokinesia, 3 - akinesia, 4 - dyskinesia Overview: 89-year-old male with CAD (prior stents), pacemaker, hypertension, permanent A.F. on warfarin and hyperlipidemia who presented as a transfer from OSH with NSTEMI (troponin greater than 10,000), and dyspnea on presentation. Started on heparin gtt. and cardiology was consulted for management of NSTEMI. ASSESSMENT NSTEMI Patient presented to OSH with dyspnea and chest discomfort with markedly elevated troponin greater than 10,000 at OSH, 4674 at [facility]. BNP 1209. Likely true type I NSTEMI in the setting of known CAD. Troponins downtrending (4674 > 3682 > 3331 > 2641) HFrEF, NYHA II-III TTE 09/18: LVEF 40% with mildly increased LV wall thickness. Mildly elevated right-sided pressures.Severely enlarged LA. Mild TR. Permanent A.F. with CHB s/p BiV PRINCIPAL STATISTICAL PROGRAMMER-P placement, on warfarin EKG 09/17 showing ventricular paced rhythm with intrinsic complexes CAD with prior PCI x2 Hypertension Hyperlipidemia Obesity Arthritis PLAN Continue heparin GTT Tentatively planning CORS today 09/19 (Not performed 09/18 due to elevated INR -- Patient given Vitamin K 2.5mg x1), follow-up findings Continuous cardiac telemetry Continue to optimize cardiac meds/GDMT, as BP and kidney function tolerate Continue Lipitor 80 mg, Coreg 6.25 mg twice daily, and Lasix 20 mg Strict I's and O's, and daily weights Device interrogation pending Monitor & Replace electrolytes per protocol, ensure K>4 & Mg>2 Remainder of care as per primary team and other consulting services Cardiology team will continue to follow This note was, at least in part, completed using a voice inventory controller system. Every effort was made to ensure accuracy. However, inadvertent computerized inventory controller errors may be present. Thomas Morrison MD PGY-2 Internal Medicine Cardiology Consult Service [facility] [1] Current Facility-Administered Medications: acetaminophen (Tylenol) tablet 650 mg, 650 mg, oral, q6h PRN, Perri Boland MD aspirin chewable tablet 81 mg, 81 mg, oral, Daily with breakfast, Roge Gomez MD, 81 mg at 09/19/25 0858 atorvastatin (Lipitor) tablet 80 mg, 80 mg, oral, Nightly, Carlton Angulo MD, 80 mg at 09/18/25 2135 carvedilol (Coreg) tablet 6.25 mg, 6.25 mg, oral, BID with meals, Carlton Angulo MD, 6.25 mg at 09/19/25 0856 DULoxetine (Cymbalta) DR capsule 30 mg, 30 mg, oral, Daily, Bette Vargas DO, 30 mg at 09/19/25 0900 ferrous sulfate tablet 325 mg, 325 mg, oral, Daily with breakfast, Carlton Angulo MD, 325 mg at 09/19/25 0857 furosemide (Lasix) tablet 20 mg, 20 mg, oral, Daily, Carlton Angulo MD, 20 mg at 09/19/25 0900 [Held by provider] heparin infusion 100 units/mL in D5W, 0-28 Units/kg/hr, intravenous, Continuous,Perri Boland MD, Stopped at 09/18/25 1052 montelukast (Singulair) tablet 10 mg, 10 mg, oral, Daily, Bette Vargas DO, 10 mg at 09/19/25 0900 pantoprazole (ProtoNix) EC tablet 40 mg, 40 mg, oral, Daily, Bette Alicia, DO, 40 mg at 09/19/25 0612 sennosides-docusate sodium (Christina-Colace) 8.6-50 mg per tablet 1 tablet, 1 tablet, oral, BID PRN, Perri Boland MD Insert peripheral IV, , , Once AND Saline lock IV, , , Once AND sodium chloride flush 10 mL, 10 mL, intravenous, q8h PRN, Perri Boland MD sucralfate (Carafate) tablet 1 g, 1 g, oral, BID AC, Carlton Angulo MD Cosigned by Nabeel Cramer MD at 09/19/2025 11:59 PM EDT Associated attestation - Nabeel Cramer MD - 09/19/2025 11:59 PM EDT By using the attestations below, the signing clinician agrees that I have read and verify that thedocumentation has been personally reviewed by me and ensure that the documentation accurately reflects the encounter. GC: I personally saw this patient on the day of the encounter, performed the maddox portion(s) of the service and participated in the management and confirm the resident's/ fellow's Dr Morrison's documentation. Please note there may be an additional personal documentation from me. Nabeel Cramer MD, FACC * Ricarda Grigsby, PT - 09/18/2025 3:28 PM EDT Physical Therapy Physical Therapy Evaluation Patient Name: Rolando Boyd : 1935 Today's Date: 09/18/2025 Start Time: 1430 Stop Time: 1500 Time Calculation (min): 30 min PT Evaluation Time Entry PT Evaluation (Moderate) Time Entry: 30 General Subjective: Pt is resting in bed, dtr present. Cardiac cath canceled for today, plan to have done tomorrow. Pt reports he became dizzy when walking bed to toilet in room. RN ok's session Patient Summary: Alvin Boyd is an 89 y.o. male who came from [facility] with SOB and dx with NSTEMI. PT Diagnosis: impaired mobiltiy and decreased IND Problem List[1] Medical History[2] Surgical History[3] Precautions Precautions Medical Precautions: fall risk, IV, telemetry Pain Pain Assessment Pain Assessment: No/denies pain Patient's Stated Pain Goal: No pain Cognition Cognition Overall Cognitive Status: Within Functional Limits Arousal/Alertness: Appropriate responses to stimuli Orientation Level: Oriented X4 Following Commands: Follows all commands and directions without difficulty Safety Judgment: Decreased awareness of need for safety Awareness of Errors: Assistance required to identify errors made Deficits: Fully aware of deficits Attention Span: Appears intact Memory: Appears intact Problem Solving: Assistance required to identify errors made Communication: Intact General Assessment General Assessment Hearing: appears somewhat [place] Skin Integrity: observed areas intact. Pt has mepilex on sacrum. Dtr reports pt has small area of redness on coccyx. Edema: none noted Home Living Home Living Type of Home: House Lives With: Alone Home Adaptive Equipment: Rollator, Lift Chair, Wheelchair-manual Home Layout: One level Home Access: Ramped entrance Bathroom Shower/Tub: Walk-in shower Bathroom Toilet: Handicapped height Bathroom Equipment: Grab bars in shower, Grab bars around toilet Bathroom Accessibility: rollator accessible Prior Level of Function Prior Function Level of [place]: Needs assistance with homemaking, Independent with ADLs and functional transfers Prior Functional Mobility: Independent with rollator Receives Help From: Family, Home health (Pt's children check on him in mornings and evenings (before and after work). Pt has [employer] for 3 hrs/day on 5 days/week and 2 hrs/day on 2 days/week.) ADL Assistance: Independent Homemaking Assistance: Needs assistance Vocational: Retired Prior Function Comments: Aide goes with pt or drives pt to appointments and takes care of meds, cooking, cleaning. Dtr reports pt still drives Vision Basic Assessment Vision - Complex General Assessments Activity Tolerance Endurance: Stage II Activity Tolerance Comments: Vitals monitored during session: HR 60-61 bpm, SpO2 94-97% on RA. No dizziness during session Sensation Light Touch: Partial deficits in the RUE (numbness in R hand) Perception Inattention/Neglect: Appears intact Initiation: Appears intact Motor Planning: Appears intact Perseveration: Not present Coordination Movements are Fluid and Coordinated: Yes Postural Control Posture Assessment: Pt demo's rounded shldrs and few head posture while sitting and standing with RW Postural Control: Deficits on evaluation Static Sitting Balance Static Sitting-Balance Support: Feet supported Static Sitting-Level of Assistance: Distant supervision Dynamic Sitting Balance Dynamic Sitting-Balance Support: Feet supported Dynamic Sitting-Balance: Reaching for objects, Forward lean Dynamic Sitting Balance-Level of Assistance: Close supervision Static Standing Balance Static Standing-Balance Support: With device, Right upper extremity supported, Left upper extremitysupported (RW) Static Standing-Level of Assistance: Close supervision Dynamic Standing Balance Dynamic Standing-Balance Support: Right upper extremity supported, Left upper extremity supported, With device (RW) Dynamic Standing Balance-Level of Assistance: Close supervision Dynamic Standing-Comments: Pt stands ~3 mins Functional Assessments Bed Mobility Bed Mobility: Yes Bed Mobility 1 Bed Mobility From 1: Supine (HOB partially elevated) Bed Mobility Type 1: To and from Bed Mobility to 1: Short sit Level of Assistance 1: Moderate assistance Transfers Ambulation comments: Pt defers ambulating this session. Pt stands with RW at EOB SBA while completing heel raises and takes a few steps towards L side to HOB CGA. Transfer: Yes Transfer 1 Transfer From 1: Bed, Sit Transfer Type 1: To and from Transfer to 1: Stand Technique 1: Sit to stand, Stand to sit Transfer Device 1: rolling walker Transfer Level of Assistance 1: Contact guard Ambulation Ambulation: Yes Ambulation 1 Surface 1: Level tile Device 1: Rolling walker Assistance 1: Contact guard Quality of Gait 1: side step towards L, small shuffling steps Comments/Distance (ft) 1: 3-4 steps Stairs Stairs: No Extremity Assessments RUE Assessment RUE Assessment: (shldr flex 0~45 degrees d/t arthritis, MMT deferred d/t pain with ROM, elbow AROM WFL, strength 5/5, arthritic changes in hand) LUE Assessment LUE Assessment: (shldr flex 0~45 degrees d/t arthritis, MMT deferred d/t pain with ROM, elbow AROM WFL, strength 5/5, arthritic changes in hand) RLE Assessment RLE Assessment: (AAROM/AROM WFL except lacks terminal knee ext, strength grossly 4/5 to 4+/5) LLE Assessment LLE Assessment: (AAROM/AROM WFL except lacks terminal knee ext, strength grossly 4/5 to 4+/5) Therapeutic Exercise Outcome Assessments 6 Clicks (Mobility) Help from another person turning from your back to your side while in a flat bed without using bedrails: A little Help from another person moving from lying on your back to sitting on the side of a flat bed without using bedrails: A lot Help from another person moving to and from a bed to a chair (including a wheelchair): A little Help from another person standing up from a chair using your arms (e.g. wheelchair or bedside chair): A little Help from another person to walk in hospital room: A little Help from another person climbing 3-5 steps with a railing: A lot Mobility 6 Clicks T-Score: 16 Assessment/Plan PT Assessment Impairments: Decreased endurance, Impaired balance, Decreased mobility, Dizziness, Decreased safetyawareness, Decreased skin integrity PT Assessment: Pt demo's good tolerance of session except moderate GROSS after standing with RW. [id number] on RA. Pt is a fall risk and will benefit from skilled PT intervention to maximize safety prior to discharge. Prognosis: Good Evaluation/Treatment Tolerance: Patient limited by fatigue Medical Staff Made Aware: Yes (Returns to bed, wedge on R side to prevent decubiti, call light in reach, table near, heels floated, dtr present.) PT Education/Comments: PT role, POC, safety Plan Level of assist: 1 assist Treatment/Interventions: Patient/family training, Functional transfer training, Equipment eval/education, Balance training, Bed mobility, Endurance training, Gait training PT Plan: Skilled PT PT Frequency: 5 times per week PT Discharge Recommendations: Patient is able to return to prior living environment PT - Discharge Recommendations Placed: Yes PT Goals Multi-Disciplinary Problems (from Physical Therapy) Active Problems Problem: Balance Start Date: 09/18/25 Goal Start Date Expected End Date End Date LTG - Patient will maintain standing and sitting balance to allow for completion of daily activities 09/18/25 10/02/25 -- Goal Start Date Expected End Date End Date LTG - Patient will tolerate standing for 10 minutes for ADL activity and mobility 09/18/25 10/02/25-- Problem: Mobility Start Date: 09/18/25 Goal Start Date Expected End Date End Date LTG - Patient will ambulate 50 feet with no assistance using rolling walker to prepare for safe discharge 09/18/25 10/02/25 -- Problem: Safety Start Date: 09/18/25 Goal Start Date Expected End Date End Date LTG - Patient will utilize safety techniques during functional mobility to decrease risk of falls 09/18/25 10/02/25 -- Problem: Transfers Start Date: 09/18/25 Goal Start Date Expected End Date End Date LTG - Patient will transfer from bed to chair with no assistance using rolling walker to prepare for safe discharge 09/18/25 10/02/25 -- Goal Start Date Expected End Date End Date LTG - Patient will perform bed mobility with no assistance 09/18/25 10/02/25 -- Problem: Compromised Skin Integrity Start Date: 09/18/25 Goal Start Date Expected End Date End Date LTG - Patient will demonstrate appropriate pressure relief techniques 09/18/25 10/02/25 -- Problem: PT Misc Start Date: 09/18/25 Goal Start Date Expected End Date End Date LTG - Pt will improve functional mobility to increase 6 clicks score by 2-4 points to maximize safety and IND 09/18/25 10/02/25 -- Goal Start Date Expected End Date End Date LTG - Pt will improve endurance to maximize tolerance of PT sessions to prepare for discharge. 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 Dizziness and giddiness DVT (deep venous thrombosis) ([facility]) History of cardiovascular disorder Chronic disease of cardiovascular system Encounter for long-term (current) use of insulin ([facility]) Hyperlipidemia Mitral valve disorder Morbid obesity with BMI of 40.0-44.9, adult ([facility]) Osteoarthritis of right hip Pulmonary embolism ([facility]) Right knee DJD CAD S/P percutaneous coronary angioplasty Implantable cardioverter-defibrillator (ICD) in situ NSTEMI (non-ST elevated myocardial infarction) ([facility]) SAULO (obstructive sleep apnea) 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) ([facility]) Class 1 obesity due to excess calories with serious comorbidity and body mass index (BMI) of 34.0 to 34.9 in adult COPD without exacerbation ([facility]) [2] Past Medical History: Diagnosis Date Atrial fibrillation ([facility]) CHF (congestive heart failure) ([facility]) Coronary artery disease Heart valve disease Hyperlipidemia Hypertension [3] Past Surgical History: Procedure Laterality Date INSERT / REPLACE / REMOVE PACEMAKER * Thomas Morrison MD - 09/18/2025 8:25 AM EDT Images from the original note were not included. Cardiology Progress Note Subjective 09/18: Patient seen and examined at bedside. Afebrile and hemodynamically stable, satting well on 2 L. 1.9 L UOP. Troponins continue to downtrend, last at 2641. INR 2.19, hemoglobin 12. Awaiting echocardiogram and Coronary angiogram. No acute events overnight, Patient denies any chest pain or dyspnea. Subjective: Rolando Boyd is a 89 y.o. 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 Patient was transferred from OSH where he was evaluated with dyspnea and chest discomfort. Troponins were elevated greater than 10,000. Patient diagnosed with NSTEMI and transferred to [facility] for further management. Initial labs: K3.4, Mg 1.7, BNP 1209, troponins 4674, lactate 1.3, and hemoglobin 11.6. Patient started on heparin gtt. and cardiology was consulted. Cardiac history: TTE 05/30/24: LVEF 50 to 55%. Moderate TR and mild AV R and stenosis. Cardiac medications: Warfarin 4 mg, atorvastatin 40 mg, carvedilol 12.5 mg twice daily, and furosemide 20 mg Objective Current Medications[1] Objective: Patient Vitals for the past 24 hrs: BP Temp Temp src Pulse Resp SpO2 Weight 09/18/25 0458 -- -- -- -- -- -- 99.6 kg (219 lb 8 oz) 09/18/25 0400 131/86 36 ??C (96.8 ??F) Temporal 60 16 96 % -- 09/18/25 0015 126/74 -- -- 60 20 100 % -- 09/17/25 2045 121/74 36.5 ??C (97.7 ??F) Temporal 60 16 100 % -- 09/17/25 1600 133/72 36.4 ??C (97.6 ??F) Temporal 60 17 96 % -- 09/17/25 1125 118/78 36.6 ??C (97.8 ??F) Temporal 60 20 100 % -- Physical Examination: Physical Exam Vitals reviewed. Eyes: Pupils: Pupils are equal, round, and reactive to light. Cardiovascular: Rate and Rhythm: Normal rate and regular rhythm. Pulmonary: Effort: Pulmonary effort is normal. Musculoskeletal: General: Swelling (right lower extremity swelling (patient had recent knee surgery)) present. Neurological: Mental Status: He is alert and oriented to person, place, and time. Relevant Lab Results Encounter Date: 09/17/25 ECG 12 lead Result Value Ventricular Rate 59 Atrial Rate 241 QRS DURATION 188 QT Interval 524 QTC CALCULATION(BAZETT) 518 R-[place] -37 T Wave [place] 76 Impression Ventricular-paced rhythm with intrinsic complexes Biventricular pacemaker detected Abnormal ECG When compared with ECG of 24-SEP-2017 07:23, Vent. rate has decreased BY 7 BPM Confirmed by Volodymyr Knott ([id number]) on 09/17/2025 10:21:06 AM No results found for: CKTOTAL , CKMB , CKMBINDEX , TROPONINI No echocardiogram results found for the past 12 months No nuclear medicine results found for the past 12 months Relevant Imaging Results ECG 12 lead Ventricular-paced rhythm with intrinsic complexes Biventricular pacemaker detected Abnormal ECG When compared with ECG of 24-SEP-2017 07:23, Vent. 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 Started on heparin gtt. and cardiology was consulted for management of NSTEMI. ASSESSMENT NSTEMI Patient presented to OSH with dyspnea and chest discomfort with markedly elevated troponin greater than 10,000 at OSH, 4674 at [facility]. BNP 1209. Likely true type I NSTEMI in the setting of known CAD. Troponins downtrending (4674 > 3682 > 3331 > 2641) HFrEF, NYHA II-III TTE 09/18: LVEF 40% with mildly increased LV wall thickness. Mildly elevated right-sided pressures.Severely enlarged LA. Mild TR. Permanent A.F. with CHB s/p BiV PRINCIPAL STATISTICAL PROGRAMMER-P placement, on warfarin EKG 09/17 showing ventricular paced rhythm with intrinsic complexes CAD with prior PCI x2 Hypertension Hyperlipidemia Obesity Arthritis PLAN Continue heparin GTT Tentatively planning CORS 09/19 (Not performed today due to elevated INR -- Patient given Vitamin K2.5mg x1), follow-up findings Continuous cardiac telemetry Continue to optimize cardiac meds/GDMT, as BP and kidney function tolerate Continue Lipitor 80 mg, Coreg 6.25 mg twice daily, and Lasix 20 mg Strict I's and O's, and daily weights Device interrogation pending Monitor & Replace electrolytes per protocol, ensure K>4 & Mg>2 Remainder of care as per primary team and other consulting services Cardiology team will continue to follow This note was, at least in part, completed using a voice inventory controller system. Every effort was made to ensure accuracy. However, inadvertent computerized inventory controller errors may be present. Thomas Morrison MD PGY-2 Internal Medicine Cardiology Consult Service [facility] [1] Current Facility-Administered Medications: acetaminophen (Tylenol) tablet 650 mg, 650 mg, oral, q6h PRN, Perri Boland MD aspirin chewable tablet 81 mg, 81 mg, oral, Daily with breakfast, Roge Gomez MD atorvastatin (Lipitor) tablet 80 mg, 80 mg, oral, Nightly, Carlton Angulo MD, 80 mg at 09/17/252125 carvedilol (Coreg) tablet 6.25 mg, 6.25 mg, oral, BID with meals, Carlton Angulo MD, 6.25 mg at 09/17/25 1741 DULoxetine (Cymbalta) DR capsule 30 mg, 30 mg, oral, Daily, Bette Vargas DO ferrous sulfate tablet 325 mg, 325 mg, oral, Daily with breakfast, Carlton Angulo MD, 325 mg at 09/17/25 0916 furosemide (Lasix) tablet 20 mg, 20 mg, oral, Daily, Carlton Angulo MD, 20 mg at 09/17/25 0916 heparin infusion 100 units/mL in D5W, 0-28 Units/kg/hr, intravenous, Continuous, Perri Boland MD, Last Rate: 14 mL/hr at 09/18/25 0543, 14 Units/kg/hr at 09/18/25 0543 montelukast (Singulair) tablet 10 mg, 10 mg, oral, Daily, Bette Vargas DO pantoprazole (ProtoNix) EC tablet 40 mg, 40 mg, oral, Daily, Bette Vargas DO sennosides-docusate sodium (Christina-Colace) 8.6-50 mg per tablet 1 tablet, 1 tablet, oral, BID PRN, Perri Boland MD Insert peripheral IV, , , Once AND Saline lock IV, , , Once AND sodium chloride flush 10 mL, 10 mL, intravenous, q8h PRN, Perri Boland MD sucralfate (Carafate) tablet 1 g, 1 g, oral, BID AC, Carlton Angulo MD Cosigned by Jim Lewis MD at 09/18/2025 4:21 PM EDT Associated attestation - Jim Lewis MD - 09/18/2025 4:21 PM EDT Mr. Boyd was seen and examined by me today with Dr. Morrison and I agree with his note today. He was transferred from [facility] with acute SOB and troponin >10,000. In addition BNP elevated. We plan R and coronary cath tomorrow however, his INR elevated on warfarin and not coming down. We advise vitamin K 2.5 mg today and reassess in the morning. I have discussed with him the expected risks of the procedure including , bleeding, AK, renal failure, vascular injury etc, and he agrees to proceed. * Bette Vargas, DO - 09/18/2025 7:31 AM EDT Images from the original note were not included. [facility] Medicine Daily Progress Note - 09/18/2025 7:31 AM; Room: [address] [place] [address] Admission: 09/17/2025 2:26 AM; Length of stay: 1 days THE HOSPITALIST TEAM PREFERS TO USE [employer] CHAT FOR NON-URGENT COMMUNICATION 7AM- 7PM. IF I DO NOT RESPOND WITHIN 20 MINUTES OR URGENT MATTERS, PLEASE CALL THROUGH THE CLEANER WINDOW. FROM 7PM-7AM, PLEASE PAGE [phone](COVR). Code Status: Full Code Barriers to Discharge: cardiac cath Expected Discharge Date: pending cardiac cath findings Discharge Destination: home Overview Alvin Boyd is an 89 y.o. male who came from [facility] with SOB and dx with NSTEMI. Patient is an 89-year-old gentleman with the following past medical history; hypertension, HLD, CADwith stent, status post pacemaker placement, arthritis, obesity. Patient was transferred from [facility] where he was evaluated because of shortness of breath and some chest discomfort. After investigation patient was noted to have NSTEMI with troponin of over 10,000. She came with no heparinization but was said to be on Coumadin INR is not noted. We are going to start patient on heparin Subjective Laying in bed No overnight events Denies chest pain Has a dry cough Physical Exam Visit Vitals BP 131/86 (BP Location: Left arm, Patient Position: Lying) Pulse 60 Temp 36 ??C (96.8 ??F) (Temporal) Resp 16 Intake/Output Summary (Last 24 hours) at 09/18/2025 0731 Last data filed at 09/18/2025 0600 Gross per 24 hour Intake 920 ml Output 1150 ml Net -230 ml Physical Exam Constitutional: Appearance: Normal appearance. HENT: Head: Normocephalic. Mouth/Throat: Mouth: Mucous membranes are moist. Eyes: Extraocular Movements: Extraocular movements intact. Pupils: Pupils are equal, round, and reactive to light. Cardiovascular: Rate and Rhythm: Normal rate and regular rhythm. Abdominal: General: Abdomen is flat. Musculoskeletal: General: No swelling. Skin: General: Skin is warm. Neurological: General: No focal deficit present. Mental Status: He is alert. Psychiatric: Mood and Affect: Mood normal. Estimated body mass index is 33.37 kg/m?? as calculated from the following: Height as of this encounter: 1.727 m (5' 8 ). Weight as of this encounter: 99.6 kg (219 lb 8 oz). Assessment and Plan Assessment & Plan NSTEMI (non-ST elevated myocardial infarction) ([facility]) CAD (coronary artery disease) - CAD s/p KISHAN to LAD & RCA in 2012, HFimpEF s/p BiV Pacemaker placement 2016 - presented to [facility] with a troponin of 10,000 and transferred to [facility] - troponin 4674, 3682, 3331, 2641 - cards consulted - on heparin drip, lipitor, coreg - reports he does not take ASA at home, He is not on aspirin due to being on anticoagulation therapy for atrial fibrillation - plan for cardiac cath today Chronic atrial fibrillation ([facility]) Presence of biventricular cardiac pacemaker - Permanent A.F. with CHB s/p BiV PRINCIPAL STATISTICAL PROGRAMMER-P placement, on warfarin - last interrogation done on 09/01/2025 - EKG 09/17 showing ventricular paced rhythm with intrinsic complexes - coumadin on hold and on a heparin drip - INR 2.19 today, will defer to cards Hyperlipidemia - continue lipitor 80mg nightly - will update lipid panel SAULO (obstructive sleep apnea) - patient has not worn CPAP for 2 months. Reports bennie could not find a mask that works for him. - he reports he does not want to wear a CPAP when I offered to consult our pulmonary navigator 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) ([facility]) - echo pending - continue lasix 20mg podaily - continue coreg 6.25mg po bid Class 1 obesity due to excess calories with serious comorbidity and body mass index (BMI) of 34.0 to 34.9 in adult - encourage weight loss COPD without exacerbation ([facility]) -continue singulair VTE Prophylaxis: IV heparin Scheduled Meds atorvastatin, 80 mg, oral, Nightly carvedilol, 6.25 mg, oral, BID with meals ferrous sulfate, 325 mg, oral, Daily with breakfast furosemide, 20 mg, oral, Daily sucralfate, 1 g, oral, BID AC heparin, 0-28 Units/kg/hr, Last Rate: 14 Units/kg/hr (09/18/25 0543) Pertinent Investigations Hematology: Results from last 7 days Lab Units 09/18/25 0433 09/17/25 0957 09/17/25 0350 WBC AUTO 10*3/uL 8.30 -- 9.65 HEMOGLOBIN g/dL 12.0* -- 11.6* HEMATOCRIT % 37.5* -- 35.5* MCV fL 97.2 -- 94.9 PLATELETS AUTO 10*3/uL 163 -- 184 INR 2.19* 2.19* -- Chemistry: Results from last 7 days Lab Units 09/17/25 0350 SODIUM mmol/L 136 POTASSIUM mmol/L 3.4* CHLORIDE mmol/L 106 CO2 mmol/L 21 BUN mg/dL 33* CREATININE mg/dL 1.04 GLUCOSE mg/dL 133* MAGNESIUM mg/dL 1.7* CALCIUM mg/dL 8.7 Results from last 7 days Lab Units 09/17/25 0350 AST U/L 21 ALT U/L 16 ALK PHOS U/L 69 BILIRUBIN TOTAL mg/dL 1.1* Historical Values: (Includes values prior to this admission) No results found for: PREALBUMIN , TSH , T3FREE , FREET4 , CORTISOL , FEV1 , KTZ9HAU , DLCO , RVSP , HDL , LDL No results found for: CPRLUSKC44 , IRON , TIBC , C3 , C4 , MIKE , CANCA , ASO , PSA , CEA , CA125 , CA199 , AFP , CA153 Imaging ECG 12 lead Ventricular-paced rhythm with intrinsic complexes Biventricular pacemaker detected Abnormal ECG When compared with ECG of 24-SEP-2017 07:23, Vent. rate has decreased BY 7 BPM Confirmed by Volodymyr Knott (80) on 09/17/2025 10:21:06 AM Discharge Planning Signed Bette Vargas DO [facility] Medicine 09/18/2025 7:31 AM documented in this encounter H&P Notes * Salo Campbell MD - 09/19/2025 2:24 PM EDT H&P reviewed. The patient was examined and there are no changes to the H&P. I will proceed with cardiac catheterization with left heart catheterization and coronary angiography given NSTEMI. I have explained to him the procedure with risks and benefits, including risks of heart attack, stroke and , as well as contrast nephropathy and radiation injury. he understands and agrees. Source Note - Thomas Morrison MD - 09/17/2025 10:02 AM EDT Images from the original note were not included. Cardiology Consult Note Reason for Consult: NSTEMI HPI: Rolando Boyd is a 89 y.o. 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 Patient was transferred from OSH where he was evaluated with dyspnea and chest discomfort. Troponins were elevated greater than 10,000. Patient diagnosed with NSTEMI and transferred to [facility] for further management. Initial labs: K3.4, Mg 1.7, BNP 1209, troponins 4674, lactate 1.3, and hemoglobin 11.6. Patient started on heparin gtt. and cardiology was consulted. Cardiac history: TTE 05/30/24: LVEF 50 to 55%. Moderate TR and mild AV R and stenosis. Cardiac medications: Warfarin 4 mg, atorvastatin 40 mg, carvedilol 12.5 mg twice daily, and furosemide 20 mg Cardiology ROS: Review of Systems Respiratory: Positive for chest tightness and shortness of breath. Cardiovascular: Negative. Gastrointestinal: Negative. Genitourinary: Negative. Musculoskeletal: Negative. Past Medical History He has a past medical history of Atrial fibrillation ([facility]), CHF (congestive heart failure) ([facility]), Coronary artery disease, Heart valve disease, Hyperlipidemia, and Hypertension. Surgical History He has a past surgical history that includes Insert / replace / remove pacemaker. Social History He reports that he quit smoking about 40 years ago. His smoking use included cigarettes. He startedsmoking about 58 years ago. He has never used smokeless tobacco. He reports that he does not currently use alcohol. He reports that he does not use drugs. Family History Family History[1] Allergies Patient has no known allergies. Medications Current Outpatient Medications Medication Instructions atorvastatin (Lipitor) 40 mg tablet Every 24 hours carvedilol (Coreg) 12.5 mg tablet Take 1 tablet twice a day by oral route. cholecalciferol (VITAMIN D-3) 1,000 Units, Daily RT DULoxetine (CYMBALTA) 30 mg, Daily ferrous sulfate 325 (65 Fe) MG EC tablet 1 tablet, Daily furosemide (Lasix) 40 mg tablet PRN for LE edema hydroCHLOROthiazide 12.5 mg, 2 times daily montelukast (Singulair) 10 mg tablet No dose, route, or frequency recorded. nitroglycerin (Nitrostat) 0.[address] 1 tab under tongue at the beginning of chest pain.May repeat every 5 minutes if pain persists. Do not repeat more that 3 times. omeprazole (PRILOSEC) 40 mg, oral, Daily before breakfast potassium chloride CR (Klor-Con M20) 20 mEq ER tablet 20 mEq, Daily sacubitriL-valsartan (Entresto) 49-51 mg tablet Take 1 tablet twice a day by oral route. Spiriva with HandiHaler 18 mcg inhalation capsule No dose, route, or frequency recorded. sucralfate (CARAFATE) 1 g, 2 times daily before meals warfarin (COUMADIN) 4 mg, oral, Daily, Take as directed per After Visit Summary. Follow up with [facility] for INR Prescriptions Prior to Admission[2] Last Recorded Vitals Patient Vitals for the past 24 hrs: BP Temp Temp src Pulse Resp SpO2 Height Weight 09/17/25 0720 133/77 36.1 ??C (97 ??F) Temporal 60 14 100 % -- -- 09/17/25 0500 -- -- -- -- -- -- -- 99.7 kg (219 lb 12.8 oz) 09/17/25 0400 120/73 36.9 ??C (98.4 ??F) Temporal 60 16 92 % -- -- 09/17/25 0246 -- -- -- -- -- -- 1.727 m (5' 8 ) 99.7 kg (219 lb 12.8 oz) 09/17/25 0240 -- -- -- -- -- -- 1.753 m (5' 9 ) -- 09/17/25 0230 119/78 36.9 ??C (98.4 ??F) Temporal 60 18 94 % -- -- Physical Examination: Physical Exam Cardiovascular: Rate and Rhythm: Normal rate and regular rhythm. Pulmonary: Effort: Pulmonary effort is normal. Skin: Capillary Refill: Capillary refill takes less than 2 seconds. Neurological: General: No focal deficit present. Mental Status: He is alert and oriented to person, place, and time. Relevant Lab Results Encounter Date: 09/17/25 ECG 12 lead Result Value Ventricular Rate 59 Atrial Rate 241 QRS DURATION 188 QT Interval 524 QTC CALCULATION(BAZETT) 518 R-[place] -37 T Wave [place] 76 Impression Ventricular-paced rhythm with intrinsic complexes Biventricular pacemaker detected Abnormal ECG When compared with ECG of 24-SEP-2017 07:23, Vent. rate has decreased BY 7 BPM No results found for: CKTOTAL , CKMB , CKMBINDEX , TROPONINI No echocardiogram results found for the past 12 months No nuclear medicine results found for the past 12 months Relevant Imaging Results ECG 12 lead Ventricular-paced rhythm with intrinsic complexes Biventricular pacemaker detected Abnormal ECG When compared with ECG of 24-SEP-2017 07:23, Vent. 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 Started on heparin gtt. and cardiology was consulted for management of NSTEMI. ASSESSMENT NSTEMI Patient presented to OSH with dyspnea and chest discomfort with markedly elevated troponin greater than 10,000 at OSH, 4674 at [facility]. BNP 1209. Likely true type I NSTEMI in the setting of known CAD. HFimpEF, NYHA II-III EKG 09/17 showing ventricular paced rhythm with intrinsic complexes Permanent A.F. with CHB s/p BiV PRINCIPAL STATISTICAL PROGRAMMER-P placement, on warfarin CAD with prior PCI x2 Hypertension Hyperlipidemia Obesity Arthritis PLAN Continue heparin GTT Tentatively planning CORS 09/18 Continuous cardiac telemetry Follow-up echocardiogram Continue to optimize cardiac meds/GDMT, as BP and kidney function tolerates Continue Lipitor 80 mg, Coreg 6.25 mg twice daily, and Lasix 20 mg Strict I's and O's, and daily weights Device interrogation pending Monitor & Replace electrolytes, maintain K > 4 & Mg > 2 Remainder of care as per primary team and other consulting services Cardiology team will continue to follow This note was, at least in part, completed using a voice inventory controller system. Every effort was made to ensure accuracy. However, inadvertent computerized inventory controller errors may be present. Thomas Morrison MD PGY-2 Internal Medicine Cardiology Consult Service [facility] [1] No family history on file. [2] Medications Prior to Admission Medication Sig Dispense Refill Last Dose/Taking atorvastatin (Lipitor) 40 mg tablet 1 (one) time each day at the same time. carvedilol (Coreg) 12.5 mg tablet Take 1 tablet twice a day by oral route. cholecalciferol (Vitamin D-3) 25 MCG (1000 UT) capsule Take 1,000 Units by mouth in the morning. (Patient not taking: Reported on 09/17/2025) Not Taking DULoxetine (Cymbalta) [address] capsule Take 30 mg by mouth in the morning. ferrous sulfate 325 (65 Fe) MG EC tablet Take 1 tablet by mouth in the morning. furosemide (Lasix) 40 mg tablet PRN for LE edema (Patient taking differently: Take 20 mg by mouth in the morning.) hydroCHLOROthiazide 12.5 mg tablet Take 12.5 mg by mouth 2 times daily. (Patient not taking: Reported on 09/17/2025) Not Taking montelukast (Singulair) 10 mg tablet nitroglycerin (Nitrostat) 0.[address] 1 tab under tongue at the beginning of chest pain.May repeat every 5 minutes if pain persists. Do not repeat more that 3 times. (Patient not taking: Reported on 09/17/2025) Not Taking omeprazole (PriLOSEC) [address] capsule Take 40 mg by mouth before breakfast. potassium chloride CR (Klor-Con M20) 20 mEq ER tablet Take 20 mEq by mouth in the morning. sacubitriL-valsartan (Entresto) 49-51 mg tablet Take 1 tablet twice a day by oral route. (Patient not taking: Reported on 09/17/2025) Not Taking Spiriva with HandiHaler 18 mcg inhalation capsule (Patient not taking: Reported on 09/17/2025) Not Taking sucralfate (Carafate) 1 gram tablet Take 1 g by mouth before breakfast and before evening meal. warfarin (Coumadin) 5 mg tablet Take 4 mg by mouth in the morning. Take as directed per After VisitSummary. Follow up [facility] for [facility]R Cosigned by Luna Kimble MD at 09/18/2025 9:38 PM EDT * Perri Boland MD - 09/17/2025 2:53 AM EDT Images from the original note were not included. Hospital Medicine History and Physical 09/17/2025 2:53 AM THE HOSPITALIST TEAM PREFERS TO USE [employer] CHAT FOR NON-URGENT COMMUNICATION 7AM- 7PM. IF I DO NOT RESPOND WITHIN 20 MINUTES OR URGENT MATTERS, PLEASE CALL THROUGH THE CLEANER WINDOW. FROM 7PM-7AM, PLEASE PAGE [phone](COVR). Chief Complaint No chief complaint on file. History of Present Illness Alvin Boyd is an 89 y.o. male who came from [facility] with SOB and dx with NSTEMI. Patient is an 89-year-old gentleman with the following past medical history; hypertension, HLD, CADwith stent, status post pacemaker placement, arthritis, obesity. Patient was transferred from [facility] where he was evaluated because of shortness of breath and some chest discomfort. After investigation patient was noted to have NSTEMI with troponin of over 10,000. She came with no heparinization but was said to be on Coumadin INR is not noted. We are going to start patient on heparin On arrival at [facility] bed he was lying in absolutely no pain or no complaints states he is doing very well. His blood pressure was 117/71, pulse rate 66 respiratory was 14on pulse oximeter was 97% on room air labs are still pending but we do know that troponin is over of 10,706. Patient has been diagnosed with NSTEMI. Will commence IV heparin and ensure there is good oxygenation and monitor electrolytes and correct any abnormalities. We are consulting cardiology as well. Review of System and Physical Exam Temp: [36.9 ??C (98.4 ??F)] 36.9 ??C (98.4 ??F) Heart Rate: [60] 60 Resp: [18] 18 BP: (119)/(78) 119/78 Physical Exam Constitutional: General: He is not in acute distress. Appearance: Normal appearance. He is obese. He is ill-appearing. He is not toxic-appearing or diaphoretic. HENT: Head: Normocephalic and atraumatic. Mouth/Throat: Mouth: Mucous membranes are moist. Pharynx: Oropharynx is clear. Eyes: Extraocular Movements: Extraocular movements intact. Pupils: Pupils are equal, round, and reactive to light. Cardiovascular: Rate and Rhythm: Normal rate and regular rhythm. Heart sounds: Gallop present. Pulmonary: Breath sounds: Rales present. Abdominal: General: Abdomen is flat. There is no distension. Palpations: Abdomen is soft. There is no mass. Tenderness: There is no abdominal tenderness. There is no guarding or rebound. Musculoskeletal: General: Normal range of motion. Cervical back: Normal range of motion and neck supple. Right lower leg: Edema present. Left lower leg: Edema present. Skin: General: Skin is warm and dry. Neurological: General: No focal deficit present. Mental Status: He is alert and oriented to person, place, and time. Mental status is at baseline. Psychiatric: Mood and Affect: Mood normal. Behavior: Behavior normal. Review of Systems Constitutional: Positive for fatigue. HENT: Negative. Eyes: Negative. Respiratory: Positive for shortness of breath. Cardiovascular: Positive for palpitations. Endocrine: Negative. Genitourinary: Negative. Musculoskeletal: Negative. Allergic/Immunologic: Negative. Neurological: Negative. Hematological: Negative. Psychiatric/Behavioral: Negative. Assessment and Plan 89-year-old gentleman transferred from [facility] with NSTEMI. Patient is being commenced onheparin and monitor enzymes and consult cardiology Assessment & Plan CAD (coronary artery disease) -History of CAD - Currently in the throes of acute NSTEMI - Treat with morphine sulfate - Supplemental oxygen to keep saturation above 96% - Consult cardiology Chronic atrial fibrillation ([facility]) -History of chronic defibrillation patient is on Coumadin at home. - Monitor heart rate Presence of biventricular cardiac pacemaker -Chronic device/problem. Will continue to monitor and interrogate if need be Hyperlipidemia -Statins Morbid obesity with BMI of 40.0-44.9, adult ([facility]) -Weight loss is recommended by virtue of exercise and diet NSTEMI (non-ST elevated myocardial infarction) ([facility]) -History of CAD - Currently in the throes of acute NSTEMI - Treat with morphine sulfate - Supplemental oxygen to keep saturation above 96% - Consult cardiology DVT prophylaxis is VTE protocols per [facility] GI protection Protonix Monitor labs correct mellitus Cycle troponin Consult cardiology I discussed the plan of care with the patient that he is in agreement VTE Prophylaxis: IV heparin ----- Focus of this inpatient stay will remain on problems that need acute care setting for care. We will review available studies and will order additional labs, imaging and other studies as appropriate. As needed medicines are ordered as appropriate. VTE Prophylaxis will be ordered as appropriate. Please see above for management plan for individual hospital problems. Home medications are reviewed and will be continued as appropriate. Patient will be continued to be followed during this hospital stay by a member of [facility]. Past Medical History Medical History[1] Past Surgical History Surgical History[2] Social History Social History Socioeconomic History Marital status: Spouse name: Not on file Number of children: Not on file Years of education: Not on file Highest education level: Not on file Occupational History Not on file Tobacco Use Smoking status: Former Current packs/day: 0.00 Types: Cigarettes Start date: 1966 Quit date: 1984 Years since quittin.8 Smokeless tobacco: Never Substance and Sexual Activity Alcohol use: Not Currently Drug use: Never Sexual activity: Defer Other Topics Concern Not on file Social History Narrative Not on file Social Drivers of Health Financial Resource Strain: Low Risk (09/17/2025) Overall Financial Resource Strain (CARDIA) Difficulty of Paying Living Expenses: Not hard at all Food Insecurity: No Food Insecurity (09/17/2025) Hunger Vital Sign Worried About Running Out of Food in the Last Year: Never true Ran Out of Food in the Last Year: Not on file Transportation Needs: No Transportation Needs (09/17/2025) Transportation Lack of Transportation (Medical): No Lack of Transportation (Non-Medical): Not on file Physical Activity: Not on file Stress: Not on file Social Connections: Not on file Intimate Partner Violence: Unknown (09/17/2025) Humiliation, Afraid, Rape, and Kick questionnaire Fear of Current or Ex-Partner: No Emotionally Abused: Not on file Physically Abused: Not on file Sexually Abused: Not on file Housing Stability: Low Risk (09/17/2025) Housing Stability Vital Sign Unable to Pay for Housing in the Last Year: No Number of Times Moved in the Last Year: Not on file Homeless in the Last Year: No Family History family history is not on file. Allergies has no known allergies. Prior to Admission Medications Prescriptions Prior to Admission[3] Labs Labs Reviewed - No data to display Imaging Cardiac device check - In Clinic By using the attestations below, the signing clinician agrees that I have read and verify that the documentation has been personally reviewed by me and ensure that the documentation accurately reflects the encounter. Routine EP device follow up as per schedule. Please see attached note Signed Perri Boland MD [facility] 09/17/2025 2:53 AM [1] Past Medical History: Diagnosis Date Atrial fibrillation (CMS/HCC) CHF (congestive heart failure) (CMS/HCC) Coronary artery disease Heart valve disease Hyperlipidemia Hypertension [2] Past Surgical History: Procedure Laterality Date INSERT / REPLACE / REMOVE PACEMAKER [3] Medications Prior to Admission Medication Sig Dispense Refill Last Dose/Taking atorvastatin (Lipitor) 40 mg tablet 1 (one) time each day at the same time. carvedilol (Coreg) 12.5 mg tablet Take 1 tablet twice a day by oral route. cholecalciferol (Vitamin D-3) 25 MCG (1000 UT) capsule Take 1,000 Units by mouth in the morning. (Patient not taking: Reported on 09/17/2025) Not Taking DULoxetine (Cymbalta) [address] capsule Take 30 mg by mouth in the morning. ferrous sulfate 325 (65 Fe) MG EC tablet Take 1 tablet by mouth in the morning. furosemide (Lasix) 40 mg tablet PRN for LE edema (Patient taking differently: Take 20 mg by mouth in the morning.) hydroCHLOROthiazide 12.5 mg tablet Take 12.5 mg by mouth 2 times daily. (Patient not taking: Reported on 09/17/2025) Not Taking montelukast (Singulair) 10 mg tablet nitroglycerin (Nitrostat) 0.[address] 1 tab under tongue at the beginning of chest pain.May repeat every 5 minutes if pain persists. Do not repeat more that 3 times. (Patient not taking: Reported on 09/17/2025) Not Taking omeprazole (PriLOSEC) [address] capsule Take 40 mg by mouth before breakfast. potassium chloride CR (Klor-Con M20) 20 mEq ER tablet Take 20 mEq by mouth in the morning. sacubitriL-valsartan (Entresto) 49-51 mg tablet Take 1 tablet twice a day by oral route. (Patient not taking: Reported on 09/17/2025) Not Taking Spiriva with HandiHaler 18 mcg inhalation capsule (Patient not taking: Reported on 09/17/2025) Not Taking sucralfate (Carafate) 1 gram tablet Take 1 g by mouth before breakfast and before evening meal. warfarin (Coumadin) 5 mg tablet Take 4 mg by mouth in the morning. Take as directed per After VisitSummary. Follow up with [facility] for [facility]R documented in this encounter Consult Notes * Thomas Morrison MD - 09/17/2025 10:02 AM EDTAssociated Order(s): IP CONSULT TO CARDIOLOGY Images from the original note were not included. Cardiology Consult Note Reason for Consult: NSTEMI HPI: Rolando Boyd is a 89 y.o. 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 Patient was transferred from OSH where he was evaluated with dyspnea and chest discomfort. Troponins were elevated greater than 10,000. Patient diagnosed with NSTEMI and transferred to [facility] for further management. Initial labs: K3.4, Mg 1.7, BNP 1209, troponins 4674, lactate 1.3, and hemoglobin 11.6. Patient started on heparin gtt. and cardiology was consulted. Cardiac history: TTE 05/30/24: LVEF 50 to 55%. Moderate TR and mild AV R and stenosis. Cardiac medications: Warfarin 4 mg, atorvastatin 40 mg, carvedilol 12.5 mg twice daily, and furosemide 20 mg Cardiology ROS: Review of Systems Respiratory: Positive for chest tightness and shortness of breath. Cardiovascular: Negative. Gastrointestinal: Negative. Genitourinary: Negative. Musculoskeletal: Negative. Past Medical History He has a past medical history of Atrial fibrillation (CMS/HCC), CHF (congestive heart failure) (CMS/HCC), Coronary artery disease, Heart valve disease, Hyperlipidemia, and Hypertension. Surgical History He has a past surgical history that includes Insert / replace / remove pacemaker. Social History He reports that he quit smoking about 40 years ago. His smoking use included cigarettes. He startedsmoking about 58 years ago. He has never used smokeless tobacco. He reports that he does not currently use alcohol. He reports that he does not use drugs. Family History Family History[1] Allergies Patient has no known allergies. Medications Current Outpatient Medications Medication Instructions atorvastatin (Lipitor) 40 mg tablet Every 24 hours carvedilol (Coreg) 12.5 mg tablet Take 1 tablet twice a day by oral route. cholecalciferol (VITAMIN D-3) 1,000 Units, Daily RT DULoxetine (CYMBALTA) 30 mg, Daily ferrous sulfate 325 (65 Fe) MG EC tablet 1 tablet, Daily furosemide (Lasix) 40 mg tablet PRN for LE edema hydroCHLOROthiazide 12.5 mg, 2 times daily montelukast (Singulair) 10 mg tablet No dose, route, or frequency recorded. nitroglycerin (Nitrostat) 0.[address] 1 tab under tongue at the beginning of chest pain.May repeat every 5 minutes if pain persists. Do not repeat more that 3 times. omeprazole (PRILOSEC) 40 mg, oral, Daily before breakfast potassium chloride CR (Klor-Con M20) 20 mEq ER tablet 20 mEq, Daily sacubitriL-valsartan (Entresto) 49-51 mg tablet Take 1 tablet twice a day by oral route. Spiriva with HandiHaler 18 mcg inhalation capsule No dose, route, or frequency recorded. sucralfate (CARAFATE) 1 g, 2 times daily before meals warfarin (COUMADIN) 4 mg, oral, Daily, Take as directed per After Visit Summary. Follow up [facility] for [facility] Prescriptions Prior to Admission[2] Last Recorded Vitals Patient Vitals for the past 24 hrs: BP Temp Temp src Pulse Resp SpO2 Height Weight 09/17/25 0720 133/77 36.1 ??C (97 ??F) Temporal 60 14 100 % -- -- 09/17/25 0500 -- -- -- -- -- -- -- 99.7 kg (219 lb 12.8 oz) 09/17/25 0400 120/73 36.9 ??C (98.4 ??F) Temporal 60 16 92 % -- -- 09/17/25 0246 -- -- -- -- -- -- 1.727 m (5' 8 ) 99.7 kg (219 lb 12.8 oz) 09/17/25 0240 -- -- -- -- -- -- 1.753 m (5' 9 ) -- 09/17/25 0230 119/78 36.9 ??C (98.4 ??F) Temporal 60 18 94 % -- -- Physical Examination: Physical Exam Cardiovascular: Rate and Rhythm: Normal rate and regular rhythm. Pulmonary: Effort: Pulmonary effort is normal. Skin: Capillary Refill: Capillary refill takes less than 2 seconds. Neurological: General: No focal deficit present. Mental Status: He is alert and oriented to person, place, and time. Relevant Lab Results Encounter Date: 09/17/25 ECG 12 lead Result Value Ventricular Rate 59 Atrial Rate 241 QRS DURATION 188 QT Interval 524 QTC CALCULATION(BAZETT) 518 R-[place] -37 T Wave [place] 76 Impression Ventricular-paced rhythm with intrinsic complexes Biventricular pacemaker detected Abnormal ECG When compared with ECG of 24-SEP-2017 07:23, Vent. rate has decreased BY 7 BPM No results found for: CKTOTAL , CKMB , CKMBINDEX , TROPONINI No echocardiogram results found for the past 12 months No nuclear medicine results found for the past 12 months Relevant Imaging Results ECG 12 lead Ventricular-paced rhythm with intrinsic complexes Biventricular pacemaker detected Abnormal ECG When compared with ECG of 24-SEP-2017 07:23, Vent. 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 Started on heparin gtt. and cardiology was consulted for management of NSTEMI. ASSESSMENT NSTEMI Patient presented to OSH with dyspnea and chest discomfort with markedly elevated troponin greater than 10,000 at OSH, 4674 at [facility]. BNP 1209. Likely true type I NSTEMI in the setting of known CAD. HFimpEF, NYHA II-III EKG 09/17 showing ventricular paced rhythm with intrinsic complexes Permanent A.F. with CHB s/p BiV PRINCIPAL STATISTICAL PROGRAMMER-P placement, on warfarin CAD with prior PCI x2 Hypertension Hyperlipidemia Obesity Arthritis PLAN Continue heparin GTT Tentatively planning CORS 09/18 Continuous cardiac telemetry Follow-up echocardiogram Continue to optimize cardiac meds/GDMT, as BP and kidney function tolerates Continue Lipitor 80 mg, Coreg 6.25 mg twice daily, and Lasix 20 mg Strict I's and O's, and daily weights Device interrogation pending Monitor & Replace electrolytes, maintain K > 4 & Mg > 2 Remainder of care as per primary team and other consulting services Cardiology team will continue to follow This note was, at least in part, completed using a voice inventory controller system. Every effort was made to ensure accuracy. However, inadvertent computerized inventory controller errors may be present. Thomas Morrison MD PGY-2 Internal Medicine Cardiology Consult Service [facility] [1] No family history on file. [2] Medications Prior to Admission Medication Sig Dispense Refill Last Dose/Taking atorvastatin (Lipitor) 40 mg tablet 1 (one) time each day at the same time. carvedilol (Coreg) 12.5 mg tablet Take 1 tablet twice a day by oral route. cholecalciferol (Vitamin D-3) 25 MCG (1000 UT) capsule Take 1,000 Units by mouth in the morning. (Patient not taking: Reported on 09/17/2025) Not Taking DULoxetine (Cymbalta) [address] capsule Take 30 mg by mouth in the morning. ferrous sulfate 325 (65 Fe) MG EC tablet Take 1 tablet by mouth in the morning. furosemide (Lasix) 40 mg tablet PRN for LE edema (Patient taking differently: Take 20 mg by mouth in the morning.) hydroCHLOROthiazide 12.5 mg tablet Take 12.5 mg by mouth 2 times daily. (Patient not taking: Reported on 09/17/2025) Not Taking montelukast (Singulair) 10 mg tablet nitroglycerin (Nitrostat) 0.[address] 1 tab under tongue at the beginning of chest pain.May repeat every 5 minutes if pain persists. Do not repeat more that 3 times. (Patient not taking: Reported on 09/17/2025) Not Taking omeprazole (PriLOSEC) [address] capsule Take 40 mg by mouth before breakfast. potassium chloride CR (Klor-Con M20) 20 mEq ER tablet Take 20 mEq by mouth in the morning. sacubitriL-valsartan (Entresto) 49-51 mg tablet Take 1 tablet twice a day by oral route. (Patient not taking: Reported on 09/17/2025) Not Taking Spiriva with HandiHaler 18 mcg inhalation capsule (Patient not taking: Reported on 09/17/2025) Not Taking sucralfate (Carafate) 1 gram tablet Take 1 g by mouth before breakfast and before evening meal. warfarin (Coumadin) 5 mg tablet Take 4 mg by mouth in the morning. Take as directed per After VisitSummary. Follow up [facility] for [facility]R Cosigned by Luna Kimble MD at 09/18/2025 9:38 PM EDT Associated attestation - Luna Kimble MD - 09/18/2025 9:38 PM EDT By using the attestations below, the signing clinician agrees that I have read and verify that thedocumentation has been personally reviewed by me and ensure that the documentation accurately reflects the encounter. GC: I personally saw this patient on the day of the encounter, performed the maddox portion(s) of the service and participated in the management and confirm the resident's documentation. Please note there may be an additional personal documentation from me. My additional comments are as follows: Patient seen and examined, agree with the detailed note below, admitted with non-ST elevation AK Luna Kimble MD, ScM, MSc Cardiac Oiler Helper Email: [email or web address] documented in this encounter Nursing Notes * Rebecca Benitez RN - 09/19/2025 6:32 PM EDT Bedside report given to MARYAN Pereira from MARYAN Fernandez. assistant laboratory director RN presented site to bedside RN. Bedside RN visualized site and palpated site to ensure there was no hematoma or bruising, and femoral site appears flat. Both bedside RN and slabber RN mutually agreed that the site presents normal. assistant laboratory director RN and bedside RN either palpated or used a doppler to assess pulses on the patient. * Rebecca Benitez RN - 09/19/2025 6:17 PM EDT Report given to MARYAN Pereira from Rebecca STEINBERG Any medications or safety alerts were reviewed. Any pending diagnostics and notifications were alsoreviewed, as well as any safety concerns or issues, abnormal labs, abnormal imagining, and abnormalassessment findings. Questions were answered. documented in this encounter Miscellaneous Notes * Hospital Course - [address] - 09/20/2025 12:23 PM EDT 09/17/25: - Admitted for NSTEMI from outside hospital with reported troponin of 10,706. - Initial troponin on arrival at [facility] 4,674. - BNP elevated at 1,209. - Patient on home Coumadin for history of atrial fibrillation. Held on admission. - Vital signs within normal limits. Oxygen saturation 97% on room air. Placed on supplemental oxygen to maintain saturation > 96%. - IV heparin started. - Given morphine sulfate. - Trend troponin. - Cardiology consulted. 09/18/25: - Heparin infusion discontinued. - Started on aspirin 81 mg. Continue to hold Coumadin. - Echocardiogram with severe left atrial enlargement and estimated EF of 40%. - 2 L supplemental oxygen to maintain saturation. - Continue Lipitor 80 mg, Coreg 6.25 mg twice daily, and Lasix 20 mg. - Monitor and replace electrolytes, maintain K > 4 and Mg > 2. - INR 2.19. Home Coumadin held. - Given vitamin K 2.5 mg. - Plan right heart and coronary catheterization once INR has decreased. 09/19/25: - INR 1.56. Continue to hold Coumadin. - Continue aspirin 81 mg. - Continue Lipitor 80 mg, Coreg 6.25 mg twice daily, and Lasix 20 mg. - Catheterization: Severe calcific 70% Denovo stenosis in the mid LAD treated by scoring balloon angioplasty and a Synergy XD drug-eluting stent. Severe 90% calcific in-stent restenosis in the distal LAD treated by scoring balloon angioplasty, high-pressure noncompliant balloon angioplasty and a agent drug-coated balloon treatment with reduction of the stenosis to 10%. Mild to moderate disease elsewhere with patent RCA stents exhibiting 40% in- stent restenosis in themid to distal RCA. Moderate elevation of left filling pressures. Moderate elevation of right filling pressures. 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 Reduced cardiac output and cardiac index. Uncontrolled systemic hypertension. 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 - Plan medical therapy for CAD. - DAPT with Aspirin daily and Clopidogrel 75 mg daily for 12 months. -Given that he is on Warfarin therapy for anticoagulation, aspirin can be discontinued in 1-2 weeksto reduce risk of bleeding. - Statin therapy for life. - Continue GDMT for heart failure. - PT/OT evaluated. Discharge with home health once medically clear. 09/20/25: - Patient maintaining oxygen saturation of 100% on room air. Dyspnea is at baseline, secondary to COPD. - Vital signs are within normal limits. He is afebrile and is not toxic-appearing. - Hemodynamically stable. Hemoglobin 10.4 and hematocrit is 32.0. - Potassium 3.4-replaced. - Continue Aspirin 81 mg daily for 1-2 weeks and Clopidogrel 75 mg daily for 12 months per Cardiology recommendation. - Resume home anticoagulation with Coumadin per Cardiology recommendation. - Continue Lipitor 80 mg daily, Coreg 6.25 mg twice daily, and Lasix 20 mg daily. - Discharge with home health. * Care Plan - Lorin Whitaker RN - 09/20/2025 12:06 PM EDT Daily Case Management Update Multidisciplinary rounds have been completed. Barriers to Discharge: Patient is medically ready for hospital discharge at this time. AVS has beencompleted, and primary RN has been notified of patients discharge readiness. Patient will dischargeto home and will arrange for daughter to provide discharge transportation. No further OTM needs identified at this time. [facility] will continue to follow patient and assist with any further discharge related needs. Diet: Dietary Orders (From admission, onward) Start Ordered 09/19/25 1855 Regular Diet Heart Healthy/HTN, CABG,Stroke, (2gNA, low fat, low cholesterol) Diet effective now Question Answer Comment Room Service? Yes Fat restriction: Heart Healthy/HTN, CABG,Stroke, (2gNA, low fat, low cholesterol) 09/19/25 1854 09/18/25 1310 Special Kitchen Request Once Comments: [place] burger only mustard, caffeine-free coke, sprite 09/18/25 1309 09/17/25 1736 Special Kitchen Request Once Comments: Grilled cheese 09/17/25 1735 09/17/25 1013 Special Kitchen Request Once Comments: Scrambled egg beaters, decaf, cream, sugar 09/17/25 1012 Physician Expected Discharge Date: 09/20/2025 Discharge Delays: PT Six Click Score: 17 OT Six Click Score: 19 PT Recommendations: Patient is able to return to prior living environment OT Recommendations: Patient is able to return to prior living environment Does patient understand post acute plan of care? Yes Is expected discharge disposition appropriate for patient?: Yes New Consults: Therapy Orders (From admission, onward) Start Ordered 09/17/25 0303 PT eval and treat Until therapy completed Question: Reason for PT? Answer: Eval and treat. 09/17/25 0302 09/17/253 OT eval and treat Until therapy completed Question: Reason for OT? Answer: Eval and treat. 09/17/25301 * Significant Event - JON Fisher - 09/20/2025 9:35 AM EDT 09/20/25 0933 Referral Data Referral Source Physician Referral Reason Information Patient Information Primary Caregiver Family Activities of Daily Living Assistive Device Other (Comment) (Has rollator, lift chair, manual wheelchair, tall toilet.) Ambulation Independent Dressing Independent Feeding Independent Behavior Oriented Communication Talks;Understands speaking;Understands Nigerien Income Information Income Source Unemployed (States he is able to afford basic needs. Retired.) Discharge Planning Living Arrangements Alone Support Systems Children;Friends/neighbors Type of Residence Private residence (1 level home w/ ramp access.) Post Acute Services None Patient's goal for discharge Return home. Does the patient need discharge transport arranged? No (Dgtr to transport.) Screened pt at bedside who is alert/ox4. Pt lives at home alone but has support from his private home health aide 3hrs/day Thu-Thursday and 2hrs./day on weekends. Pt also report his family checks in daily and he has 3 adult children that all live locally. OT/PT evaluated and reported pt can return home. Discussed with pt who is agreeable with plan. * Care Plan - Olivia Luna RN - 09/20/2025 7:31 AM EDT The patient is Moderately Stable - Low risk of patient condition declining or worsening Problem: Neurosensory - Adult Goal: Achieves stable or improved neurological status Outcome: Progressing Problem: Respiratory - Adult Goal: Achieves optimal ventilation and oxygenation Outcome: Progressing Problem: Cardiovascular - Adult Goal: Maintains optimal cardiac output and hemodynamic stability Outcome: Progressing Goal: Absence of cardiac dysrhythmias or at baseline Outcome: Progressing Problem: Skin/Tissue Integrity - Adult Goal: Skin integrity remains intact Outcome: Progressing Goal: Incisions, wounds, or drain sites healing without S/S of infection Outcome: Progressing Problem: Musculoskeletal - Adult Goal: Return mobility to safest level of function Outcome: Progressing Goal: Return ADL status to a safe level of function Outcome: Progressing Problem: Gastrointestinal - Adult Goal: Minimal or absence of nausea and vomiting Outcome: Progressing Goal: Maintains or returns to baseline bowel function Outcome: Progressing Goal: Maintains adequate nutritional intake Outcome: Progressing Problem: Genitourinary - Adult Goal: Absence of urinary retention Outcome: Progressing Problem: Infection - Adult Goal: Absence of infection at discharge Outcome: Progressing Goal: Absence of infection during hospitalization Outcome: Progressing Problem: Metabolic/Fluid and Electrolytes - Adult Goal: Electrolytes maintained within normal limits Outcome: Progressing Goal: Hemodynamic stability and optimal renal function maintained Outcome: Progressing Goal: Glucose maintained within prescribed range Outcome: Progressing Problem: Hematologic - Adult Goal: Maintains hematologic stability Outcome: Progressing Problem: Pain - Adult Goal: Verbalizes/displays adequate comfort level or baseline comfort level Outcome: Progressing Problem: Safety - Adult Goal: Free from fall injury Outcome: Progressing Problem: Discharge Planning Goal: Discharge to home or other facility with appropriate resources Outcome: Progressing Problem: Chronic Conditions and Co-morbidities Goal: Patient's chronic conditions and co-morbidity symptoms are monitored and maintained or improved Outcome: Progressing The patient's goals for the shift include comfort The clinical goals for the shift include VSS * Care Plan - Mian Lewis RN - 09/19/2025 10:38 PM EDT The patient is Moderately Stable - Low risk of patient condition declining or worsening The patient's goals for the shift include comfort The clinical goals for the shift include VSS Problem: Pain - Adult Goal: Verbalizes/displays adequate comfort level or baseline comfort level Outcome: Progressing Flowsheets (Taken 09/18/20257) Verbalizes/displays adequate comfort level or baseline comfort level: Encourage patient to monitor pain and request assistance Administer analgesics based on type and severity of pain and evaluate response Assess pain using appropriate pain scale Implement non-pharmacological measures as appropriate and evaluate response Consider cultural and social influences on pain and pain management Notify Licensed Independent Practitioner if interventions unsuccessful or patient reports new pain Problem: Safety - Adult Goal: Free from fall injury Outcome: Progressing Flowsheets (Taken 09/18/20257) Free from fall injury: Assess patient frequently for physical needs Identify cognitive and physical deficits and behaviors that affect risk of falls Walker fall precautions as indicated by assessment Educate patient/family on patient safety, including physical limitations Instruct patient to call for assistance with activity based on assessment Modify environment to reduce risk of injury Consider OT/PT consult to assist with strengthening/mobility Problem: Discharge Planning Goal: Discharge to home or other facility with appropriate resources Outcome: Progressing Flowsheets (Taken 09/18/20252316) Discharge to home or other facility with appropriate resources: Identify barriers to discharge with patient and caregiver Arrange for needed discharge resources and transportation as appropriate Identify discharge learning needs (meds, wound care, etc) Arrange for interpreters to assist at discharge as needed Refer to discharge planning if patient needs post-hospital services based on physician order or complex needs related to functional status, cognitive ability or social support system Problem: Chronic Conditions and Co-morbidities Goal: Patient's chronic conditions and co-morbidity symptoms are monitored and maintained or improved Outcome: Progressing Flowsheets (Taken 09/18/20252316) Care Plan - Patient's Chronic Conditions and Co-Morbidity Symptoms are Monitored and Maintained or Improved: Collaborate with multidisciplinary team to address chronic and comorbid conditions and prevent exacerbation or deterioration Monitor and assess patient's chronic conditions and comorbid symptoms for stability, deterioration,or improvement Update acute care plan with appropriate goals if chronic or comorbid symptoms are exacerbated and prevent overall improvement and discharge * Pre-Sedation Documentation - Salo Campbell MD - 09/19/2025 2:24 PM EDT Patient: Rolando Boyd Procedure Information Date/Time: 09/19/25 1530 Procedures: Coronary angiography Right heart cath Location: [facility] / [facility] (Cath) Providers: Salo Campbell MD Clinical information reviewed: Allergies Meds Problems Physical Exam Airway Mallampati: III TM distance: >3 FB Neck ROM: full Cardiovascular Rhythm: regular Rate: normal Dental Pulmonary Breath sounds clear to auscultation Neurological Abdominal Anesthesia Plan ASA 3 other (Conscious sedation.) Anesthetic plan and risks discussed with patient. Use of blood products discussed with patient who consented to blood products. Additional Equipment Requests * Assessment & Plan Note - Mary De Anda MD - 09/19/2025 11:55 AM EDTAssociated Problem(s): Hyperlipidemia - Continue lipitor 80mg nightly - Lipid panel-total cholesterol is 106, HDL 34, LDL 59, triglycerides 67 * Assessment & Plan Note - Mary De Anda MD - 09/19/2025 11:55 AM EDTAssociated Problem(s): SAULO (obstructive sleep apnea) - Patient has not worn CPAP for 2 months. Reports bennie could not find a mask that works for him. - He reports he does not want to wear a CPAP when I offered to consult our pulmonary navigator. 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 * Assessment & Plan Note - Mary De Anda MD - 09/19/2025 11:55 AM EDTAssociated Problem(s): COPD without exacerbation (CMS/HCC) - Continue singulair. * Assessment & Plan Note - Mary De Anda MD - 09/19/2025 11:55 AM EDTAssociated Problem(s): NSTEMI (non-ST elevated myocardial infarction) (CMS/HCC) CAD (coronary artery disease) - CAD s/p KISHAN to LAD & RCA in 2012, HFimpEF s/p BiV Pacemaker placement 2016 - Presented to [facility] with a troponin of 10,000 and transferred to [facility] - Troponin 4674, 3682, 3331, 2641 - Cardiology following - Heparin drip discontinued - Patient does not take aspirin at home due to anticoagulation therapy for atrial fibrillation - Cardiac catheterization deferred to today due to supratherapeutic INR of 2.19 yesterday - Patient received one time dose of Vitamin K 2.5 mg yesterday - INR is 1.56 at this time-plan for cardiac cath today - Monitor and replace electrolytes per protocol, K > 4, Mg > 2 * Assessment & Plan Note - Mary De Anda MD - 09/19/2025 11:55 AM EDTAssociated Problem(s): Chronic atrial fibrillation (CMS/HCC) Presence of biventricular cardiac pacemaker - Permanent A.F. with CHB s/p BiV PRINCIPAL STATISTICAL PROGRAMMER-P placement, on warfarin - last interrogation done on 09/01/2025 - EKG 09/17 showing ventricular paced rhythm with intrinsic complexes - Coumadin held, heparin discontinued - INR 1.56 today * Significant Event - Lexi Hardy RN - 09/19/2025 9:20 AM EDT Readmission Risk Score 12. Zero ED/Inpt admits in the past 6 months. 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 This [facility] underwriter reviewed the chart and pt does not meet criteriafor Outpatient Specialty/Complex shelving supervisor program criteria at this time. * Care Plan - Mian Lewis RN - 09/18/2025 11:18 PM EDT The patient is Moderately Stable - Low risk of patient condition declining or worsening The patient's goals for the shift include comfort The clinical goals for the shift include VSS Problem: Pain - Adult Goal: Verbalizes/displays adequate comfort level or baseline comfort level Outcome: Progressing Flowsheets (Taken 09/18/20252316) Verbalizes/displays adequate comfort level or baseline comfort level: Encourage patient to monitor pain and request assistance Administer analgesics based on type and severity of pain and evaluate response Assess pain using appropriate pain scale Implement non-pharmacological measures as appropriate and evaluate response Consider cultural and social influences on pain and pain management Notify Licensed Independent Practitioner if interventions unsuccessful or patient reports new pain Problem: Safety - Adult Goal: Free from fall injury Outcome: Progressing Flowsheets (Taken 09/18/20252316) Free from fall injury: Assess patient frequently for physical needs Identify cognitive and physical deficits and behaviors that affect risk of falls Walker fall precautions as indicated by assessment Educate patient/family on patient safety, including physical limitations Instruct patient to call for assistance with activity based on assessment Modify environment to reduce risk of injury Consider OT/PT consult to assist with strengthening/mobility Problem: Discharge Planning Goal: Discharge to home or other facility with appropriate resources Outcome: Progressing Flowsheets (Taken 09/18/20252316) Discharge to home or other facility with appropriate resources: Identify barriers to discharge with patient and caregiver Arrange for needed discharge resources and transportation as appropriate Identify discharge learning needs (meds, wound care, etc) Arrange for interpreters to assist at discharge as needed Refer to discharge planning if patient needs post-hospital services based on physician order or complex needs related to functional status, cognitive ability or social support system Problem: Chronic Conditions and Co-morbidities Goal: Patient's chronic conditions and co-morbidity symptoms are monitored and maintained or improved Outcome: Progressing Flowsheets (Taken 09/18/2025 2317) Care Plan - Patient's Chronic Conditions and Co-Morbidity Symptoms are Monitored and Maintained or Improved: Collaborate with multidisciplinary team to address chronic and comorbid conditions and prevent exacerbation or deterioration Monitor and assess patient's chronic conditions and comorbid symptoms for stability, deterioration,or improvement Update acute care plan with appropriate goals if chronic or comorbid symptoms are exacerbated and prevent overall improvement and discharge * Assessment & Plan Note - Bette Vargas DO - 09/18/2025 7:46 AM EDT Associated Problem(s): Hyperlipidemia - continue lipitor 80mg nightly - will update lipid panel * Assessment & Plan Note - Bette Vargas DO - 09/18/2025 7:46 AM EDT Associated Problem(s): NSTEMI (non-ST elevated myocardial infarction) ([facility]) - CAD s/p KISHAN to LAD & RCA in 2012, HFimpEF s/p BiV Pacemaker placement 2017 - presented to [facility] with a troponin of 10,000 and transferred to [facility] - troponin 4674, 3682, 3331, 2641 - cards consulted - on heparin drip, lipitor, coreg - reports he does not take ASA at home, He is not on aspirin due to being on anticoagulation therapy for atrial fibrillation - plan for cardiac cath today * Assessment & Plan Note - Bette Vargas DO - 09/18/2025 7:46 AM EDT Associated Problem(s): CAD (coronary artery disease) - CAD s/p KISHAN to LAD & RCA in 2012, HFimpEF s/p BiV Pacemaker placement 2017 - presented to [facility] with a troponin of 10,000 and transferred to [facility] - troponin 4674, 3682, 3331, 2641 - cards consulted - on heparin drip, lipitor, coreg - reports he does not take ASA at home, He is not on aspirin due to being on anticoagulation therapy for atrial fibrillation - plan for cardiac cath today * Assessment & Plan Note - Bette Vargas DO - 09/18/2025 7:46 AM EDT Associated Problem(s): 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 with CHB s/p BiV PRINCIPAL STATISTICAL PROGRAMMER-P placement, on warfarin - last interrogation done on 09/01/2025 - EKG 09/17 showing ventricular paced rhythm with intrinsic complexes - coumadin on hold and on a heparin drip - INR 2.19 today, will defer to cards * Assessment & Plan Note - Bette Vargas DO - 09/18/2025 7:43 AM EDT Associated Problem(s): Presence of biventricular cardiac pacemaker - Permanent A.F. with CHB s/p BiV PRINCIPAL STATISTICAL PROGRAMMER-P placement, on warfarin - last interrogation done on 09/01/2025 - EKG 09/17 showing ventricular paced rhythm with intrinsic complexes - coumadin on hold and on a heparin drip - INR 2.19 today, will defer to cards * Assessment & Plan Note - Bette Vargas DO - 09/18/2025 7:43 AM EDT Associated Problem(s): SAULO (obstructive sleep apnea) - patient has not worn CPAP for 2 months. Reports bennie could not find a mask that works for him. - he reports he does not want to wear a CPAP when I offered to consult our pulmonary navigator * Assessment & Plan Note - Bette Vargas DO - 09/18/2025 7:43 AM EDT Associated Problem(s): Class 1 obesity due to excess calories with serious comorbidity and body mass index (BMI) of 34.0 to 34.9 in adult - encourage weight loss * Care Plan - Viktoria Yign RN - 09/17/2025 10:44 PM EDT The patient is Moderately Stable - Low risk of patient condition declining or worsening The patient's goals for the shift include comfort The clinical goals for the shift include safety * Individualized Overall Plan of Care Note - Carlton Angulo MD - 09/17/2025 3:39 PM EDT Patient seen and examined in the morning. Patient presenting from OSH with dyspnea. He denies having had chest pain since admission. Troponinseems to have peaked at 4000s. He was started on heparin drip. Cardiology saw patient and planning cath on 09/18. Carlton Angulo MD Hospitalist * Assessment & Plan Note - Perri Boland MD - 09/17/2025 4:25 AM EDT Associated Problem(s): CAD (coronary artery disease) -History of CAD - Currently in the throes of acute NSTEMI - Treat with morphine sulfate - Supplemental oxygen to keep saturation above 96% - Consult cardiology * Assessment & Plan Note - Perri Boland MD - 09/17/2025 4:25 AM EDT Associated Problem(s): Chronic atrial fibrillation (CMS/HCC) -History of chronic defibrillation patient is on Coumadin at home. - Monitor heart rate * Assessment & Plan Note - Perri Boland MD - 09/17/2025 4:25 AM EDT Associated Problem(s): Presence of biventricular cardiac pacemaker -Chronic device/problem. Will continue to monitor and interrogate if need be * Assessment & Plan Note - Perri Boland MD - 09/17/2025 4:25 AM EDT Associated Problem(s): Hyperlipidemia -Statins * Assessment & Plan Note - Perri Boland MD - 09/17/2025 4:25 AM EDT Associated Problem(s): Morbid obesity with BMI of 40.0-44.9, adult ([facility]) -Weight loss is recommended by virtue of exercise and diet * Assessment & Plan Note - Perri Boland MD - 09/17/2025 4:25 AM EDT Associated Problem(s): NSTEMI (non-ST elevated myocardial infarction) ([facility]) -History of CAD - Currently in the throes of acute NSTEMI - Treat with morphine sulfate - Supplemental oxygen to keep saturation above 96% - Consult cardiology DVT prophylaxis is VTE protocols per [facility] GI protection Protonix Monitor labs correct mellitus Cycle troponin Consult cardiology I discussed the plan of care with the patient that he is in agreement * Care Plan - Viktoria Ying RN - 09/17/2025 3:04 AM EDT The patient is Moderately Stable - Low risk of patient condition declining or worsening The patient's goals for the shift include The clinical goals for the shift include vss documented in this encounter Plan of Treatment DateTypeDepartmentCare Team (Latest Contact Info)Jonsbpwakjo56/06/2025 2:00 PM ESTOffice Visit [facility] [address] [place] [address] Harman Anders, METALLOGRAPHER [address] [place] [address] NameTypePriorityAssociated DiagnosesOrder ScheduleAmbulatory referral to Cardiac RehabOutpatient ReferralRoutine S/P drug eluting coronary stent placement Expected: 09/19/2025 (Approximate), Expires: 03/20/2026documented as of this encounter Procedures Procedure NamePriorityDate/TimeAssociated DiagnosisCommentsCBCPending Discharge 09/20/2025 6:10 AM EDT MAGNESIUMPending Gljuihtxh41/22/2025 6:10 AM EDT BASIC METABOLIC PANELPending Awdtnqosc09/22/2025 6:10 AM EDT ECG 12-RWIXHbzga23/21/2025 6:30 PM EDT POCT ACTIVATED CLOTTING ECGPZdvbqci22/21/2025 5:56 PM EDT ACTIVATED CLOTTING YBJRQhgpkuk82/21/2025 5:49 PM EDT ULTRASOUND - MIMFVMQIRmjphqd10/21/2025 5:11 PM EDT NSTEMI (non-ST elevated myocardial infarction) (CMS/HCC) PERC CORONARY IROTQUROIFWNYczmnjs70/21/2025 5:11 PM EDT NSTEMI (non-ST elevated myocardial infarction) (CMS/HCC) RIGHT HEART OWHWPiahxdi15/21/2025 5:11 PM EDT NSTEMI (non-ST elevated myocardial infarction) (CMS/HCC) CORONARY DJMTASTRRCXKyoaart82/21/2025 5:11 PM EDT NSTEMI (non-ST elevated myocardial infarction) (CMS/HCC) ACTIVATED CLOTTING MNIQInwfrfo51/21/2025 4:51 PM EDT ACTIVATED CLOTTING ELBCVdlmgdu75/21/2025 4:35 PM EDT ACTIVATED CLOTTING RHPIZiqvgak98/21/2025 3:58 PM EDT %WLA2Rxutcjo13/21/2025 3:40 PM EDT ANTI-FACTOR XAPending Rouidjjjv59/21/2025 12:31 PM EDT POTASSIUMPending Cdxdxibkj74/21/2025 12:31 PM EDT EXTRA AGTSYEtoghsr12/21/2025 6:00 AM EDT LAVENDER KWCEsykplp38/21/2025 6:00 AM EDT PROTIME-INRPending Cswgefruv35/21/2025 6:00 AM EDT ANTI-FACTOR XAPending Budwbyobr81/21/2025 6:00 AM EDT MAGNESIUMPending Adbjiafrr05/21/2025 6:00 AM EDT BASIC METABOLIC PANELPending Txfcyclmf09/21/2025 6:00 AM EDT ANTI-FACTOR VXDapsm84/21/2025 12:16 AM EDT ANTI-FACTOR GJOomqx36/20/2025 6:00 PM EDT ANTI-FACTOR UDWgjeq32/20/2025 11:33 AM EDT COMPLETE ECHO (TTE) W/ IMAGING NFZTQXvaixjz67/20/2025 10:43 AM EDT BVIKYVYRTFkouial54/20/2025 7:45 AM EDT LIPID PANELAdd-On09/18/2025 7:45 AM EDT BASIC METABOLIC LSYJJNWQF54/20/2025 7:45 AM EDT IBJRRKX-PZNCrb-Zx52/20/2025 4:33 AM EDT ANTI-FACTOR TUIijngga99/20/2025 4:33 AM EDT SQSHzjibib04/20/2025 4:33 AM EDT HIGH SENSITIVITY TROPONIN KAmynj2109/18/2025 12:01 AM EDT HIGH SENSITIVITY TROPONIN DDjbju3509/17/2025 5:25 PM EDT ANTI-FACTOR DFTdhlbgr52/19/2025 5:25 PM EDT HIGH SENSITIVITY TROPONIN BCeggq5609/17/2025 11:57 AM EDT SHHQMYE-APHGyj-Ic79/19/2025 9:57 AM EDT ANTI-FACTOR KPVqfpi26/19/2025 9:57 AM EDT ECG 12-UMCHRsftwrq34/19/2025 9:39 AM EDT HIGH SENSITIVITY TROPONIN IZnixrjq56/19/2025 3:50 AM EDT PJOATUQX65/19/2025 3:50 AM EDT BEIVPNS7109/17/2025 3:50 AM EDT B-TYPE NATRIURETIC JWZBQSUBuzrucl69/19/2025 3:50 AM EDT JYSWRMTOYCkmfics91/19/2025 3:50 AM EDT LACTIC ACID, KBTTZUSadtcqv91/19/2025 3:50 AM EDT COMPREHENSIVE METABOLIC ZAIXFWqbmjxg84/19/2025 3:50 AM EDT documented in this encounter Results * (ABNORMAL) Magnesium (09/20/2025 6:10 AM EDT)ComponentValueRef RangeTest MethodAnalysis TimePerformed AtPathologist SignatureMagnesium1.8(L)1.9 - 2.7 mg/dL09/20/2025 7:20 AM [facility] ([facility])Specimen (Source) Anatomical Location / LateralityCollection Method / VolumeCollection Time Received TimeBloodVenous blood specimen / UnknownVenipuncture / Unknown 09/20/2025 6:10 AM EDT1 6:50 AM EDT Narrative Authorizing ProviderResult TypeResult StatusStephanie Alicia DOLAB BLOOD ORDERABLESFinal ResultPerforming OrganizationAddressCity/State/ZIP CodePhone Number [facility] ([facility]) [address] [place] [address] * (ABNORMAL) Basic metabolic panel (09/20/2025 6:10 AM EDT)ComponentValueRef RangeTest MethodAnalysis TimePerformed AtPathologist IambfqrrkCththj265375 - 145 mmol/L1 7:20 AM [facility] ([facility])Potassium3.4(L)3.5 - 5.1 mmol/L1 7:20 AM [facility] ([facility])Njjygryo567(H)98 - 107 mmol/L1 7:20 AM [facility] ([facility])[id number] - 31 mmol/L 09/20/2025 7:20 AM [facility] ([facility])BUN28(H)7 - 25 mg/dL09/20/2025 7:20 AM [facility] ([facility])Creatinine0.850.70 - 1.30 mg/dL 09/20/2025 7:20 AM [facility] ([facility])Vkzqzxo147(H)70 - 100 mg/dL 09/20/2025 7:20 AM [facility] ([facility])Calcium8.88.6 - 10.3 mg/dL 09/20/2025 7:20 AM [facility] ([facility])Anion Dvv600 - 20 mmol/L 09/20/2025 7:20 AM [facility] [facility]eGFR83.6>60.0 mL/min/1.73m*2 09/20/2025 7:20 AM [facility] ([facility])Comment:The [facility]???s estimated glomerular filtration rate (eGFR) will no longer include consideration of race in its calculation. The National Kidney Foundation???s eGFR Task Force developed new recommendations for the estimation of the glomerular filtration rate in the [place] They recommend immediate implementation of the new equation refit without the race variable in all laboratories because the calculation does not include race. In addition to not including race in the calculation and reporting, it included diversity in its development, and has acceptable performance characteristics and potential consequences that do not disproportionately affect any one group of individuals.BUN/Creatinine Ratio32.91 7:20 AM [facility] ([facility])Specimen (Source)Anatomical Location / LateralityCollection Method / VolumeCollection TimeReceived TimeBloodVenous blood specimen / Unknown Venipuncture / Tpbpzif5309/20/2025 6:10 AM EDT1 6:50 AM EDT Narrative Authorizing ProviderResult TypeResult StatusStephanie Alicia COUNTS INCLUDE 234 BEDS AT [facility] BLOOD ORDERABLESFinal ResultPerforming OrganizationAddressCity/State/ZIP CodePhone Number [facility] ([facility]) [address] [place] [address] * (ABNORMAL) CBC (09/20/2025 6:10 AM EDT)ComponentValueRef RangeTest Method Analysis TimePerformed AtPathologist SignatureAuto WBC8.094.00 - 10.60 10*3/uL 09/20/2025 7:31 AM [facility] ([facility])RBC3.37(L)4.20 - 5.70 10*6/uL 09/20/2025 7:31 AM [facility] ([facility])Zvdzsqgldm80.4(L)13.0 - 17.0 g/dL09/20/2025 7:31 AM [facility] ([facility])Jpglmfwfbx65.0(L)39.0 - 50.0 %09/20/2025 7:31 AM [facility] ([facility])MCV95.082.0 - 98.0 fL 09/20/2025 7:31 AM [facility] ([facility])MCH30.927.0 - 33.0 pg 09/20/2025 7:31 AM [facility] ([facility])MCHC32.532.0 - 35.0 g/dL 09/20/2025 7:31 AM [facility] ([facility])RDW13.211.5 - 15.0 %09/20/2025 7:31 AM [facility] ([facility])Pnftxvpig600266 - 400 10*3/uL09/20/2025 7:31 AM [facility] ([facility])Specimen (Source)Anatomical Location / LateralityCollection Method / VolumeCollection TimeReceived TimeBloodVenous blood specimen / UnknownVenipuncture / Mfecrbu5209/20/2025 6:10 AM EDT1 6:54 AM EDT Narrative Authorizing ProviderResult TypeResult StatusBonaventure Kya BAEZ BLOOD ORDERABLESFinal ResultPerforming OrganizationAddressCity/State/ZIP CodePhone Number [facility] ([facility]) [address] [place] [address] * ECG 12 lead (09/19/2025 6:30 PM EDT)ComponentValueRef RangeTest MethodAnalysis TimePerformed AtPathologist SignatureVentricular Xnvn70MJKKV MUSEAtrial Rate 288BPMGE MUSEQRS JVWYKRHN200toXQ MUSEQT Lcsacitg816dzUJ MUSEQTC CALCULATION(BAZETT)518msGE MUSER-Hrer254cocjitjFJ MUSET Wave Sxrh43jgwbvwmAG MUSESpecimen (Source)Anatomical Location / LateralityCollection Method / VolumeCollection TimeReceived Time09/19/2025 5:44 PM EDT1 7:59 PM EDT Impressions GE MUSE - 09/19/2025 7:59 PM EDT Atrial fibrillation Ventricular-paced rhythm Biventricular pacemaker detected Abnormal ECG When compared with ECG of 17-SEP-2025 09:35, No significant change was found Confirmed by Salo Campbell ([id number]) on 09/19/2025 7:59:33 PM Narrative Procedure Note Salo Campbell MD - 09/19/2025 IMPRESSION: Atrial fibrillation Ventricular-paced rhythm Biventricular pacemaker detected Abnormal ECG When compared with ECG of 17-SEP-2025 09:35, No significant change was found Confirmed by Salo Campbell (70) on 09/19/2025 7:59:33 PM Authorizing ProviderResult TypeResult StatusGeorfernando CRABTREE ORDERABLES Final ResultPerforming OrganizationAddressCity/State/ZIP CodePhone Number GE MUSE * (ABNORMAL) POCT activated clotting time manually resulted (09/19/2025 5:56 PM EDT)ComponentValueRef RangeTest MethodAnalysis TimePerformed AtPathologist SignatureActivated Clotting Time ZCI990(A)82 - 152 secSpecimen (Source) Anatomical Location / LateralityCollection Method / VolumeCollection Time Received TimeBloodVenous blood specimen / Vdnisvk0009/19/2025 5:56 PM EDT Narrative Authorizing ProviderResult TypeResult StatusSavanessa De Anda MDPOINT OF CARE TEST ENTER/EDIT ORDERABLESFinal Result * (ABNORMAL) Activated clotting time (09/19/2025 5:49 PM EDT)ComponentValueRef RangeTest MethodAnalysis TimePerformed AtPathologist SignatureActivated Clotting Gbgb862(H)82 - 152 09/19/2025 5:57 PM [facility]) Specimen (Source)Anatomical Location / LateralityCollection Method / Volume Collection TimeReceived TimeBloodVenous blood specimen / Guzwvqd2809/19/2025 5:49 PM EDT1 5:57 PM EDT Narrative Authorizing ProviderResult TypeResult StatusMary BAEZ POINT OF CARE TEST DOCKED DEVICE UNSOLICITED RESULTSFinal ResultPerforming OrganizationAddress City/State/ZIP CodePhone Number [facility] ([facility]) [address] [place] [address] * CORONARY ANGIOGRAPHY, RIGHT HEART CATH, PERC CORONARY INTERVENTION, ULTRASOUND - CORONARY (09/19/2025 5:11 PM EDT)Anatomical RegionLateralityModalityOther Specimen (Source)Anatomical Location / LateralityCollection Method / Volume Collection TimeReceived Time Narrative 09/19/2025 5:25 PM EDT PROCEDURE PHYSICIAN: Salo Campbell MD . Indications: Alvin Boyd is a 89 y.o. male with history of coronary disease status post stenting of the LAD and RCA in the past who presented with NSTEMI. ?His echocardiogram showed acute systolic heart failure with reduced LVEF at 40%. ??He was referred for cardiac catheterization. Assistants: Interventional Attending Dr Vinay Treadwell. Procedure Performed: Bilateral selective coronary angiogram. Right heart catheterization. OCT assessment of the LAD. Successful balloon angioplasty, scoring balloon angioplasty, and drug coated balloon treatment of 90% instent restenosis in the distal left anterior descending coronary artery, with reduction of the lesion to 10% by a Agent DCB 3.0 x 15 mm drug coated balloon. Successful scoring balloon angioplasty and drug eluting stenting of 70% stenosis in the mid left anterior descending coronary artery, with reduction of the lesion to 0% by a Synergy XD 3.0 x 20 mm drug eluting stent, post-dilated to 3.5 mm at high pressures. Access into the right internal jugular vein under ultrasound guidance. Access into the left radial artery under ultrasound guidance. Methods: ??Procedure was explained to the patient with risks and benefits; he signed informed consent. ??he was brought to the slabber in a fasting state. The right neck area was prepped and draped in usual fashion. Micropuncture technique was used for access under ultrasound guidance into the right internal jugular vein. ??A 6-Puerto Rican x 11 cm sheath was placed. ?? The left wrist area was prepped and draped in usual fashion. Micropuncture technique was used for access in the radial artery. ??A 6-Puerto Rican x 11 cm sheath was placed. ??Verapamil was given through the sheath, and heparin was administered intravenously. ?? A 6-Puerto Rican Jackson catheter was used for right heart catheterization and measurement of pressures and calculation of cardiac output using the estimated Deanna method. ??Jackson catheter was removed. Bilateral selective coronary angiography was then performed using 6-Puerto Rican JL4 diagnostic catheter for engagement of the left coronary artery and 6-Puerto Rican JR4 diagnostic catheter for engagement of the right coronary artery. Catheters were removed. Heparin was administered intravenously and therapeutic ACT was confirmed during the rest of the procedure. A 6-Puerto Rican XB 3.5 guiding catheter was advanced and used to engage the left coronary ostium. Baseline MARTINA flow was 3. A [email or web address] coronary guide wire was advanced to the distal left anterior descending coronary artery. A Proteopurer OCT catheter was advanced and used to perform OCT assessment of the left anterior descending coronary artery. ?? The mid LAD Denovo stenosis had an MLA of 2.6 mm??. ??The distal LAD in-stent restenosis had an MLA of 1.67 mm??. ??Moderate calcified nodules were seen in the mid and distal LAD. Catheter was removed. A Scoreflex 3.0 x 10 mm scoring balloon was advanced and used to performed scoring balloon angioplasty at the site of the stenoses in the distal in-stent restenosis and then mid LAD denovo stenosis with inflations up to 18 Frank. The balloon was retracted. Angiography was performed. ?? Additional noncompliant balloon angioplasty was performed in the distal LAD in-stent restenosis using 3.0 x 12 mm noncompliant Emerge balloon inflated at 24 frank. ??Angiography was performed. A Agent drug-coated balloon 3.0 x 15 mm was then advanced and used to perform drug-coated balloon angioplasty at the site of in-stent restenosis in the distal LAD with inflation at 12 frank for about 90 seconds. ??The balloon was deflated and retracted. We then turned attention to the mid LAD. ??A Synergy XD 3.0 x 20 mm drug-eluting stent was advanced and deployed at 18 Frank across the stenosis and postdilated using a NC 3.5 x 15 mm balloon inflated up to 16 Frank throughout the length of the stented segment. Angiography revealed excellent result with reduction of the stenosis in the mid LAD to 0% and in the distal LAD ISR to 10%, no evidence of dissection or perforation and MARTINA 3 flow in the coronary artery and branches. The guiding catheter and wire were removed. The patient was loaded with clopidogrel 600 mg ??at the end of the procedure. Hemostasis was achieved by TR band in the radial artery manual compression in the internal jugular vein. ??he tolerated the procedure well and was transferred back to the hospital room. Hemodynamic Data: ?? RA: 14 RV: 59/10, 15 PA: 55/28 (39) PCWP: 22 CO: 3.43 CI: 1.63 O2 Sat: PA sat: 46%, AO sat: 93% AO: 131/67 (92) TP PVR: 4.95 Wood units SVR: 1819 Metric units Coronary angiography: This is a right-dominant circulation. Left Main: This arises from the left coronary cusp. ??It bifurcates into left anterior descending and circumflex vessels. ??This has mild luminal irregularities but no obstructive lesions. Left anterior descending: ?This is a large vessel. ??The proximal segment has 30% stenosis followed by a previously placed stent. ??That stent was placed patent. ??The mid segment of the LAD has a 70% angiographic stenosis with an MLA of 2.6 mm??. ??Calcifications were seen on OCT imaging. ??This was treated by scoring balloon angioplasty and a Synergy XD drug-eluting stent with reduction of the stenosis to 0%. ??Beyond that area there is a previously placed stent with a 90% angiographic in-stent restenosis and a MLA by OCT of 1.67 mm??. ??This was treated by balloon angioplasty, scoring balloon angioplasty and a agent drug-coated balloon treatment with reduction of the angiographic stenosis to 10%. ??The apical LAD has a 50% stenosis. ??A third diagonal branch is likely occluded and appears to fill faintly via collaterals coming from the apical LAD. Circumflex: ?? This is a non-dominant vessel. ?? it gives rise to a small caliber first obtuse marginal branch which has mild diffuse disease. ??A large second obtuse marginal branch has a distal 50% stenosis. ??The main circumflex has diffuse 20 to 30% stenosis. Right coronary artery: ?? This arises from the right coronary cusp. ??It is a dominant vessel. ?? The ostium of the RCA has a 50% stenosis. ??Previously placed stents in the proximal to mid segments are patent. ??In the mid segment there is a 40% in-stent restenosis. ??Distally the RCA has diffuse mild disease, the PDA and PLV branches are of small caliber and have mild diffuse disease. Impression/Findings: Severe calcific 70% Denovo stenosis in the mid LAD treated by scoring balloon angioplasty and a Synergy XD drug-eluting stent. Severe 90% calcific in-stent restenosis in the distal LAD treated by scoring balloon angioplasty, high-pressure noncompliant balloon angioplasty and a agent drug-coated balloon treatment with reduction of the stenosis to 10%. Mild to moderate disease elsewhere with patent RCA stents exhibiting 40% in-stent restenosis in the mid to distal RCA. Moderate elevation of left filling pressures. Moderate elevation of right filling pressures. 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 Reduced cardiac output and cardiac index. Uncontrolled systemic hypertension. 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 Plan: Medical therapy for coronary artery disease. Aspirin 81 mg daily for life. Dual antiplatelet therapy with Aspirin 81 mg daily for life and Clopidogrel 75 mg daily for 12 months. Given that he is on warfarin therapy for anticoagulation, the aspirin can be stopped in 1 to 2 weeks to reduce the risk of bleeding. Statin therapy for life. Guideline directed medical therapy for heart failure. Further recommendations per inpatient Cardiology service. Follow up in Cardiology Clinic. Salo Campbell MD Study Details NSTEMI (non-ST elevated myocardial infarction) ([facility]) [I21.4] Authorizing ProviderResult TypeResult Spencer Treadwell [facility] [place] CARDIAC CATH PROCEDURESFinal Result * (ABNORMAL) Activated clotting time (09/19/2025 4:51 PM EDT)ComponentValueRef RangeTest MethodAnalysis TimePerformed AtPathologist SignatureActivated Clotting Ycpa670(H)82 - 152 09/19/2025 5:00 PM [facility] ([facility]) Specimen (Source)Anatomical Location / LateralityCollection Method / Volume Collection TimeReceived TimeBloodVenous blood specimen / Rfkptxg1609/19/2025 4:51 PM EDT1 5:00 PM EDT Narrative Authorizing ProviderResult TypeResult Branden BAEZ POINT OF CARE TEST DOCKED DEVICE UNSOLICITED RESULTSFinal ResultPerforming OrganizationAddress City/State/ZIP CodePhone Number [facility] ([facility]) [address] [place] [address] * (ABNORMAL) Activated clotting time (09/19/2025 4:35 PM EDT)ComponentValueRef RangeTest MethodAnalysis TimePerformed AtPathologist SignatureActivated Clotting Bfrc956(H)82 - 152 09/19/2025 5:00 PM [facility] ([facility]) Specimen (Source)Anatomical Location / LateralityCollection Method / Volume Collection TimeReceived TimeBloodVenous blood specimen / Llbfnnt4209/19/2025 4:35 PM EDT1 5:00 PM EDT Narrative Authorizing ProviderResult TypeResult StatusMary BAEZ POINT OF CARE TEST DOCKED DEVICE UNSOLICITED RESULTSFinal ResultPerforming OrganizationAddress [facility]/State/ZIP CodePhone Number [facility] ([facility]) [address] [place] [address] * (ABNORMAL) Activated clotting time (09/19/2025 3:58 PM EDT)ComponentValueRef RangeTest MethodAnalysis TimePerformed AtPathologist SignatureActivated Clotting Rrmc962(H)82 - 152 09/19/2025 5:00 PM [facility] ([facility]) Specimen (Source)Anatomical Location / LateralityCollection Method / Volume Collection TimeReceived TimeBloodVenous blood specimen / Lduvyre5809/19/2025 3:58 PM EDT1 5:00 PM EDT Narrative Authorizing ProviderResult TypeResult StatusSarmamanda De Anda [facility] POINT OF CARE TEST DOCKED DEVICE UNSOLICITED RESULTSFinal ResultPerforming OrganizationAddress [facility]/ZIP CodePhone Number [facility]) [address] [place] [address] * (ABNORMAL) %HbO2 (09/19/2025 3:40 PM EDT)ComponentValueRef RangeTest Method Analysis TimePerformed AtPathologist AzljfdjzrJ5Fs%46.1(L)90.0 - 95.0 % 09/19/2025 3:41 PM [facility] ([facility])Specimen (Source)Anatomical Location / LateralityCollection Method / VolumeCollection TimeReceived Time BloodVenous blood specimen / Lrbirra1409/19/2025 3:40 PM EDT1 3:40 PM EDT Narrative Authorizing ProviderResult TypeResult StatusSavanessa De Anda MOSHERRI POINT OF CARE TEST DOCKED DEVICE UNSOLICITED RESULTSFinal ResultPerforming OrganizationAddSpring[facility]/State/ZIP CodePhone Number [facility] [address] [place] [address] * Potassium (09/19/2025 12:31 PM EDT)ComponentValueRef RangeTest MethodAnalysis TimePerformed AtPathologist SignaturePotassium4.03.5 - 5.1 mmol/L1 1:04 PM [facility] ([facility])Specimen (Source)Anatomical Location / LateralityCollection Method / VolumeCollection TimeReceived TimeBloodVenous blood specimen / UnknownVenipuncture / Hrujwjb4109/19/2025 12:31 PM EDT 09/19/2025 12:36 PM EDT Narrative Authorizing ProviderResult TypeResult StatusNabeel Cramer MDNEW[facility] BLOOD ORDERABLES Final ResultPerforming OrganizationAddressCity/State/ZIP CodePhone Number [facility] ([facility]) [address] [place] [address] * (ABNORMAL) Anti-Xa (Heparin Level) (09/19/2025 12:31 PM EDT)ComponentValueRef RangeTest MethodAnalysis TimePerformed AtPathologist SignatureAnti-Xa (Heparin)<0.10(LL)0.3 - 0.7 IU/mL09/19/2025 1:18 PM [facility] ([facility])Comment:Rivaroxaban and Apixaban will interfere with the anti Xa assay used to monitor UFH and LMWH.Specimen (Source)Anatomical Location / LateralityCollection Method / VolumeCollection TimeReceived TimeBloodVenous blood specimen / UnknownVenipuncture / Rllrxze0309/19/2025 12:31 PM EDT 09/19/2025 12:34 PM EDT Narrative Authorizing ProviderResult TypeResult StatusCarlton Angulo [facility] BLOOD ORDERABLESFinal ResultPerforming OrganizationAddressCity/State/ZIP CodePhone Number [facility] ([facility]) [address] [place] [id number] * Lavender Top (09/19/2025 6:00 AM EDT)ComponentValueRef RangeTest Method Analysis TimePerformed AtPathologist SignatureExtra TubeHold for add-ons. 09/19/2025 8:01 AM [facility] ([facility])Comment:Auto resulted.Specimen (Source)Anatomical Location / LateralityCollection Method / VolumeCollection TimeReceived TimeBloodVenous blood specimen / Gcijuef3209/19/2025 6:00 AM EDT 09/19/2025 6:35 AM EDT Narrative Authorizing ProviderResult TypeResult StatusBette SOLIS BLOOD ORDERABLESFinal ResultPerforming OrganizationAddressCity/State/ZIP CodePhone Number [facility] ([facility]) [address] [place] [address] * Magnesium (09/19/2025 6:00 AM EDT)ComponentValueRef RangeTest MethodAnalysis TimePerformed AtPathologist SignatureMagnesium1.91.9 - 2.7 mg/dL09/19/2025 7:19 AM [facility] ([facility])Specimen (Source)Anatomical Location / LateralityCollection Method / VolumeCollection TimeReceived TimeBloodVenous blood specimen / UnknownVenipuncture / Pdmelyr0309/19/2025 6:00 AM EDT1 6:42 AM EDT Narrative Authorizing ProviderResult TypeResult StatusStephanbriseyda Vargas COUNTS INCLUDE 234 BEDS AT [facility] BLOOD ORDERABLESFinal ResultPerforming OrganizationAddressCity/State/ZIP CodePhone Number [facility] [address] [place] [address] * (ABNORMAL) Basic metabolic panel (09/19/2025 6:00 AM EDT)ComponentValueRef RangeTest MethodAnalysis TimePerformed AtPathologist MgvuzddolUvfcgs889664 - 145 mmol/L1 7:19 AM [facility] ([facility])Potassium3.4(L)3.5 - 5.1 mmol/L1 7:19 AM [facility] ([facility])Vfdpavjt644(H)98 - 107 mmol/L1 7:19 AM [facility] ([facility])XJ33279 - 31 mmol/L 09/19/2025 7:19 AM [facility] ([facility])BUN28(H)7 - 25 mg/dL09/19/2025 7:19 AM [facility] ([facility])Creatinine0.940.70 - 1.30 mg/dL 09/19/2025 7:19 AM [facility] ([facility])Rxuixpr030(H)70 - 100 mg/dL 09/19/2025 7:19 AM [facility] ([facility])Calcium8.98.6 - 10.3 mg/dL 09/19/2025 7:19 AM [facility] ([facility])Anion Imo473 - 20 mmol/L 09/19/2025 7:19 AM [facility] ([facility])eGFR78.0>60.0 mL/min/1.73m*2 09/19/2025 7:19 AM [facility] ([facility])Comment:[facility]???s estimated glomerular filtration rate (eGFR) will no longer include consideration of race in its calculation. The National Kidney Foundation???s eGFR Task Force developed new recommendations for the estimation of the glomerular filtration rate in the [place] They recommend immediate implementation of the new equation refit without the race variable in all laboratories because the calculation does not include race. In addition to not including race in the calculation and reporting, it included diversity in its development, and has acceptable performance characteristics and potential consequences that do not disproportionately affect any one group of individuals.BUN/Creatinine Ratio29.81 7:19 AM [facility] ([facility])Specimen (Source)Anatomical Location / LateralityCollection Method / VolumeCollection TimeReceived TimeBloodVenous blood specimen / Unknown Venipuncture / Joufzzm6809/19/2025 6:00 AM EDT1 6:42 AM EDT Narrative Authorizing ProviderResult TypeResult StatusStepclarice Vargas COUNTS INCLUDE 234 BEDS AT [facility] BLOOD ORDERABLESFinal ResultPerforming OrganizationAddressCity/State/ZIP CodePhone Number [facility] ([facility]) [address] [place] [address] * (ABNORMAL) Anti-Xa (Heparin Level) (09/19/2025 6:00 AM EDT)ComponentValueRef RangeTest MethodAnalysis TimePerformed AtPathologist SignatureAnti-Xa (Heparin)<0.10(LL)0.3 - 0.7 IU/mL09/19/2025 7:19 AM [facility] ([facility])Comment:Rivaroxaban and Apixaban will interfere with the anti Xa assay used to monitor UFH and LMWH.Specimen (Source)Anatomical Location / LateralityCollection Method / VolumeCollection TimeReceived TimeBloodVenous blood specimen / UnknownVenipuncture / Shzwtzd5509/19/2025 6:00 AM EDT1 6:30 AM EDT Narrative Authorizing ProviderResult TypeResult StatusImmanuelu Rogelio Angulo MDLAB BLOOD ORDERABLESFinal ResultPerforming OrganizationAddressCity/State/ZIP CodePhone Number [facility] (PRETTY) [address] [place] [address] * (ABNORMAL) Protime-INR (09/19/2025 6:00 AM EDT)ComponentValueRef RangeTest MethodAnalysis TimePerformed AtPathologist BfojdpuviSmonqzi77.8(H)12.3 - 14.8 Lsmdamv7109/19/2025 7:12 AM [facility] (PRETTY)INR1.56(H)0.90 - 1.10 09/19/2025 7:12 AM [facility] (PRETTY)Comment: [facility] RECOMMENDED INR FOR WARFARIN THERAPY CONDITION ?INR PROPHYLAXIS OF VENOUS THROMBOSIS ? 2-3 (HIGH-RISK SURGERY) TREATMENT OF VENOUS THROMBOSIS ? 2-3 TREATMENT OF PULMONARY EMBOLISM ?2-3 PREVENTION OF SYSTEMIC EMBOLISM: ? 2-3 ?ACUTE MYOCARDIAL INFARCTION ?TISSUE HEART VALVES ?VALVULAR HEART DISEASE ?ATRIAL FIBRILLATION ?RECURRENT SYSTEMIC EMBOLISM MECHANICAL HEART VALVE ? 2.5-3.5 FROM: ORAL ANTICOAGULANTS. ??MECHANISM OF ACTION, CLINICAL EFFECTIVENESS, AND OPTIMAL THERAPEUTIC RANGE. ??CHEST 1995;108:231S-246S. Specimen (Source)Anatomical Location / LateralityCollection Method / Volume Collection TimeReceived TimeBloodVenous blood specimen / UnknownVenipuncture / Duybvgm8609/19/2025 6:00 AM EDT1 6:30 AM EDT Narrative Authorizing ProviderResult TypeResult StatusJim Lewis [facility] BLOOD ORDERABLESFinal ResultPerforming OrganizationAddressCity/State/ZIP CodePhone Number [facility] ([facility]) [address] [place] [address] * (ABNORMAL) Anti-Xa (Heparin Level) (09/19/2025 12:16 AM EDT)ComponentValueRef RangeTest MethodAnalysis TimePerformed AtPathologist SignatureAnti-Xa (Heparin)<0.10(LL)0.3 - 0.7 IU/mL09/19/2025 1:13 AM [facility] ([employer])Comment:Rivaroxaban and Apixaban will interfere with the anti Xa assay used to monitor UFH and LMWH.Specimen (Source)Anatomical Location / LateralityCollection Method / VolumeCollection TimeReceived TimeBloodVenous blood specimen / UnknownVenipuncture / Iewmeis0009/19/2025 12:16 AM EDT 09/19/2025 12:34 AM EDT Narrative Authorizing ProviderResult TypeResult StatusCarlton Angulo [facility] BLOOD ORDERABLESFinal ResultPerforming OrganizationAddressCity/State/ZIP CodePhone Number [facility] (BEAKER) [address] [place] [address] * (ABNORMAL) Anti-Xa (Heparin Level) (09/18/2025 6:00 PM EDT)ComponentValueRef RangeTest MethodAnalysis TimePerformed AtPathologist SignatureAnti-Xa (Heparin)<0.10(LL)0.3 - 0.7 IU/mL09/18/2025 6:40 PM [facility] ([employer])Comment:Rivaroxaban and Apixaban will interfere with the anti Xa assay used to monitor UFH and LMWH.Specimen (Source)Anatomical Location / LateralityCollection Method / VolumeCollection TimeReceived TimeBloodVenous blood specimen / UnknownVenipuncture / Ztiolcv0509/18/2025 6:00 PM EDT1 6:05 PM EDT Narrative Authorizing ProviderResult TypeResult StatusCarlton Angulo [facility] BLOOD ORDERABLESFinal ResultPerforming OrganizationAddressCity/State/ZIP CodePhone Number [facility] ([facility] [address] [place] [address] * (ABNORMAL) Anti-Xa (Heparin Level) (09/18/2025 11:33 AM EDT)ComponentValueRef RangeTest MethodAnalysis TimePerformed AtPathologist SignatureAnti-Xa (Heparin)0.76(H)0.3 - 0.7 IU/mL09/18/2025 12:15 PM [facility] ([facility])Comment:Rivaroxaban and Apixaban will interfere with the anti Xa assay used to monitor UFH and LMWH.Specimen (Source)Anatomical Location / LateralityCollection Method / VolumeCollection TimeReceived TimeBloodVenous blood specimen / UnknownVenipuncture / Xlsyknr5509/18/2025 11:33 AM EDT 09/18/2025 11:49 AM EDT Narrative Authorizing ProviderResult TypeResult StatusCarlton Angulo [facility] BLOOD ORDERABLESFinal ResultPerforming OrganizationAddressCity/State/ZIP CodePhone Number [facility] ([facility]) [address] [place] [address] * COMPLETE ECHO (TTE) W/ IMAGING AGENT (09/18/2025 10:43 AM EDT)Anatomical RegionLateralityModalityOtherSpecimen (Source)Anatomical Location / Laterality Collection Method / VolumeCollection TimeReceived Time09/18/2025 10:20 AM EDT Narrative 09/18/2025 12:04 PM EDT 1 1 [facility] Heart Station [address] [place] [address] [phone] (fax) Echocardiogram-[facility] Name: ALVIN BOYD Study Date: 09/18/2025 10:20 AM B/P: 136 mmHg/90 mmHg HR: 123 bpm Date of : 1935 Location: [facility] Height: 68 in. Age: 89 year(s) Patient Room: 3184 Weight: 212 lb. Gender: Male Patient Status: InPt BSA: 2.09 m2 Indication: Heart failure, Atrial Fibrillation, Pacemaker/AICD, CAD, COPD Examination: Echocardiogram (Complete), Lumason Contrast Image Quality: Technically Difficult study Patient Consent: Procedure explained to patient Exam Details Contrast: I.V. dose of Lumason Conclusions Left Ventricle: The left ventricle is normal size. Global left ventricular systolic function is difficult to assess but appears reduced. The calculated Biplane EF is 40 %. Left ventricular wall thickness is mildly increased. Right Ventricle: The right ventricle appears normal in size. Right ventricular systolic function appears normal. Doppler studies suggest mildly elevated right sided pressures. Left Atrium: The left atrium is severely enlarged. Aortic Valve: Restricted opening movement of the aortic valve is present. Tricuspid Valve: Mild tricuspid regurgitation. Overall Conclusions: Due to suboptimal imaging Lumason contrast was administered for opacification and better delineation of endocardial borders. Measurements Left Ventricle Label Value Normal Value LVOTd 2.7 cm (19cm - 21cm) LVOT VTI 14.2 cm (18cm - 22cm) LVOT PGmax 2 mmHg LVDd, 2D 4.47 cm (4.2cm - 5.9cm) LVDs, 2D 3.16 cm (2.1cm - 4cm) IVSd, 2D 1.34 cm (0.6cm - 1.1cm) LVPWd, 2D 1.2 cm (0.6cm - 1cm) LVEF, BP 40 % (55% - 65%) LV Mass, 2D ASE 212.89 g LV Mass Index, 2D ASE 101.9 g/m?? (50g/m?? - 102.4g/m??) RWT, MM 0.54 (0 - 0.42) LVSVI, 2D 24.4 ml/m2 LVOT PGmean 1 mmHg LVSV_LVOT 81 ml Left Atrium Label Value Normal Value LA Volume, BP 104 ml (18ml - 58ml) LAESV index, BP 49.8 ml/m?? Aortic Valve Label Value Normal Value AV DVI 0.37 AV VTI 37.4 cm Tricuspid Valve Label Value Normal Value RA Pressure 3 mmHg RVSP 42 mmHg TR Vmax 3.12 m/s Aorta Label Value Normal Value AoRoot, 2D 3.4 cm (1.4cm - 3.8cm) Valvular Assessment LVOT 0.7 - 1.1 m/sec Aortic Valve 1.0 - 1.7 m/sec Mitral Valve 0.6 - 1.3 m/sec Tricuspid Valve 0.3 - 0.7 m/sec Pulmonic Valve 0.6 - 0.9 m/sec Regurgitation No No Mild No Max Velocity 0.67 m/sec 1.83 m/s Max Gradient 13.00 mmHg Mean Gradient 7.00 mmHg Valve Area 2.1 cm?? Findings Left Ventricle: The left ventricle is normal size. Global left ventricular systolic function is difficult to assess but appears reduced. The calculated Biplane EF is 40 %. Left ventricular wall thickness is mildly increased. The basal anteroseptal, basal inferoseptal, basal inferior, mid anteroseptal, mid inferoseptal, mid inferior, apical septal, apical inferior and apex left ventricular wall segments are hypokinetic. The basal anterior, basal inferolateral, basal anterolateral, mid anterior, mid inferolateral, mid anterolateral, apical anterior and apical lateral left ventricular wall segments are akinetic. Right Ventricle: The right ventricle appears normal in size. Right ventricular systolic function appears normal. Doppler studies suggest mildly elevated right sided pressures. Left Atrium: The left atrium is severely enlarged. Right Atrium: Right atrium is poorly visualized. Mitral Valve: Mitral valve appears normal. No mitral regurgitation. Aortic Valve: Restricted opening movement of the aortic valve is present. Aortic stenosis maybe underestimated due to poor LV systolic function. No aortic valve regurgitation. Tricuspid Valve: Normal tricuspid valve. Mild tricuspid regurgitation. Pulmonic Valve: Normal pulmonary valve. No pulmonary regurgitation. Aorta: The aortic root is normal in size. Great Vessels: IVC: The IVC is not well visualized. Pericardium: No pericardial effusion. Procedure Staff Reading Group: [facility] Facility Maintenance Mechanic: Shawn Masterson RDCS ??Ordering Physician: LUNA KIMBLE ?? Wall Motion Scores -1 - hyperkinesia, 0 - not evaluated, 1 - normal, 2 - hypokinesia, 3 - akinesia, 4 - dyskinesia Procedure Note Juan Bauer MD - 09/18/2025 1 1 [facility] [address] [place] [address] [phone] (fax) Echocardiogram-[facility] Name: ALVIN BOYD Study Date: 09/18/2025 10:20 AM B/P: 136 mmHg/90 mmHg HR: 123 bpm Date of : 1935 Location: [facility] Height: 68 in. Age: 89 year(s) Patient Room: 3184 Weight: 212 lb. Gender: Male Patient Status: InPt BSA: 2.09 m2 Indication: Heart failure, Atrial Fibrillation, Pacemaker/AICD, CAD, COPD Examination: Echocardiogram (Complete), Lumason Contrast Image Quality: Technically Difficult study Patient Consent: Procedure explained to patient Exam Details Contrast: I.V. dose of Lumason Conclusions Left Ventricle: The left ventricle is normal size. Global left ventricular systolic function is difficult to assess but appears reduced. The calculated Biplane EF is 40 %. Left ventricular wall thickness is mildly increased. Right Ventricle: The right ventricle appears normal in size. Right ventricular systolic function appears normal. Doppler studies suggest mildly elevated right sided pressures. Left Atrium: The left atrium is severely enlarged. Aortic Valve: Restricted opening movement of the aortic valve is present. Tricuspid Valve: Mild tricuspid regurgitation. Overall Conclusions: Due to suboptimal imaging Lumason contrast was administered for opacification and better delineation of endocardial borders. Measurements Left Ventricle Label Value Normal Value LVOTd 2.7 cm (19cm - 21cm) LVOT VTI 14.2 cm (18cm - 22cm) LVOT PGmax 2 mmHg LVDd, 2D 4.47 cm (4.2cm - 5.9cm) LVDs, 2D 3.16 cm (2.1cm - 4cm) IVSd, 2D 1.34 cm (0.6cm - 1.1cm) LVPWd, 2D 1.2 cm (0.6cm - 1cm) LVEF, BP 40 % (55% - 65%) LV Mass, 2D ASE 212.89 g LV Mass Index, 2D ASE 101.9 g/m?? (50g/m?? - 102.4g/m??) RWT, MM 0.54 (0 - 0.42) LVSVI, 2D 24.4 ml/m2 LVOT PGmean 1 mmHg LVSV_LVOT 81 ml Left Atrium Label Value Normal Value LA Volume, BP 104 ml (18ml - 58ml) LAESV index, BP 49.8 ml/m?? Aortic Valve Label Value Normal Value AV DVI 0.37 AV VTI 37.4 cm Tricuspid Valve Label Value Normal Value RA Pressure 3 mmHg RVSP 42 mmHg TR Vmax 3.12 m/s Aorta Label Value Normal Value AoRoot, 2D 3.4 cm (1.4cm - 3.8cm) Valvular Assessment LVOT 0.7 - 1.1 m/sec Aortic Valve 1.0 - 1.7 m/sec Mitral Valve 0.6 - 1.3 m/sec Tricuspid Valve 0.3 - 0.7 m/sec Pulmonic Valve 0.6 - 0.9 m/sec Regurgitation No No Mild No Max Velocity 0.67 m/sec 1.83 m/s Max Gradient 13.00 mmHg Mean Gradient 7.00 mmHg Valve Area 2.1 cm?? Findings Left Ventricle: The left ventricle is normal size. Global left ventricular systolic function is difficult to assess but appears reduced. The calculated Biplane EF is 40 %. Left ventricular wall thickness is mildly increased. The basal anteroseptal, basal inferoseptal, basal inferior, mid anteroseptal, mid inferoseptal, mid inferior, apical septal, apical inferior and apex left ventricular wall segments are hypokinetic. The basal anterior, basal inferolateral, basal anterolateral, mid anterior, mid inferolateral, mid anterolateral, apical anterior and apical lateral left ventricular wall segments are akinetic. Right Ventricle: The right ventricle appears normal in size. Right ventricular systolic function appears normal. Doppler studies suggest mildly elevated right sided pressures. Left Atrium: The left atrium is severely enlarged. Right Atrium: Right atrium is poorly visualized. Mitral Valve: Mitral valve appears normal. No mitral regurgitation. Aortic Valve: Restricted opening movement of the aortic valve is present. Aortic stenosis maybe underestimated due to poor LV systolic function. No aortic valve regurgitation. Tricuspid Valve: Normal tricuspid valve. Mild tricuspid regurgitation. Pulmonic Valve: Normal pulmonary valve. No pulmonary regurgitation. Aorta: The aortic root is normal in size. Great Vessels: IVC: The IVC is not well visualized. Pericardium: No pericardial effusion. Procedure Staff Reading Group: [facility] Facility Maintenance Mechanic: Shawn Masterson RDCS Ordering Physician: LUNA KIMBLE Wall Motion Scores -1 - hyperkinesia, 0 - not evaluated, 1 - normal, 2 - hypokinesia, 3 - akinesia, 4 - dyskinesia Authorizing ProviderResult TypeResult StatusAbanastacia Kimble [facility] [place] ECHO PROCEDURES Final Result * (ABNORMAL) Lipid panel (09/18/2025 7:45 AM EDT)ComponentValueRef RangeTest MethodAnalysis TimePerformed AtPathologist JfpbjieycYrjdnrwglrqwr46<150 mg/dL 09/18/2025 9:13 AM [facility] ([facility])Comment: TRIGLYCERIDE REFERENCE RANGE: 20 YEARS AND OLDER ?CARDIOVASCULAR RISK LESS THAN 150 mg/dL ? LOW RISK 150 TO 199 mg/dL ?BORDERLINE RISK 200 mg/dL AND GREATER ? HIGH RISK Nwkiabhbftq353(L)120 - 200 mg/dL09/18/2025 9:13 AM [facility] ([facility]) LDL Xcbomnbpdy506 - 160 mg/dL09/18/2025 9:13 AM [facility] ([facility])HDL 3423 - 92 mg/dL09/18/2025 9:13 AM [facility] ([facility])Non HDL Unmsmqnrotf8613/20/2025 9:13 AM [facility] ([facility])Total VLDL-C130 - 40 mg/dL09/18/2025 9:13 AM [facility] ([facility])Cholesterol/HDL Ratio3.1 mg/dL09/18/2025 9:13 AM [facility] ([facility])Specimen (Source)Anatomical Location / LateralityCollection Method / VolumeCollection TimeReceived Time BloodVenous blood specimen / UnknownVenipuncture / Idcdzqw9609/18/2025 7:45 AM EDT 09/18/2025 8:16 AM EDT Narrative Authorizing ProviderResult TypeResult StatusStephanie Alicia DOLAB BLOOD ORDERABLESFinal ResultPerforming OrganizationAddressCity/State/ZIP CodePhone Number [facility] ([facility]) [address] [place] [address] * Magnesium (09/18/2025 7:45 AM EDT)ComponentValueRef RangeTest MethodAnalysis TimePerformed AtPathologist SignatureMagnesium2.11.9 - 2.7 mg/dL09/18/2025 8:43 AM [facility] ([facility])Specimen (Source)Anatomical Location / LateralityCollection Method / VolumeCollection TimeReceived TimeBloodVenous blood specimen / UnknownVenipuncture / Rnrkaez9709/18/2025 7:45 AM EDT1 8:16 AM EDT Narrative Authorizing ProviderResult TypeResult StatusStephanie Alicia DOLAB BLOOD ORDERABLESFinal ResultPerforming OrganizationAddressCity/State/ZIP CodePhone Number [facility] ([facility]) [address] [place] [address] * (ABNORMAL) Basic metabolic panel (09/18/2025 7:45 AM EDT)ComponentValueRef RangeTest MethodAnalysis TimePerformed AtPathologist VaohwthpnQdlqid554359 - 145 mmol/L1 8:43 AM [facility] ([facility])Potassium3.83.5 - 5.1 mmol/L1 8:43 AM [facility] ([facility])Edmllkwv12547 - 107 mmol/L1 8:43 AM [facility] ([facility])VI77081 - 31 mmol/L 09/18/2025 8:43 AM [facility] ([facility])BUN26(H)7 - 25 mg/dL09/18/2025 8:43 AM [facility] ([facility])Creatinine0.890.70 - 1.30 mg/dL 09/18/2025 8:43 AM [facility] ([facility])Zmmuqyu940(H)70 - 100 mg/dL 09/18/2025 8:43 AM [facility] ([facility])Calcium8.98.6 - 10.3 mg/dL 09/18/2025 8:43 AM [facility] ([facility])Anion Aar111 - 20 mmol/L 09/18/2025 8:43 AM [facility] ([facility])eGFR82.4>60.0 mL/min/1.73m*2 09/18/2025 8:43 AM [facility] ([facility])Comment:The [facility]???s estimated glomerular filtration rate (eGFR) will no longer include consideration of race in its calculation. The [employer]???s eGFR Task Force developed new recommendations for the estimation of the glomerular filtration rate in the [place] They recommend immediate implementation of the new equation refit without the race variable in all laboratories because the calculation does not include race. In addition to not including race in the calculation and reporting, it included diversity in its development, and has acceptable performance characteristics and potential consequences that do not disproportionately affect any one group of individuals.BUN/Creatinine Ratio29. 8:43 AM [facility] ([facility])Specimen (Source)Anatomical Location / LateralityCollection Method / VolumeCollection TimeReceived TimeBloodVenous blood specimen / Unknown Venipuncture / Bjysruu1509/18/2025 7:45 AM EDT1 8:16 AM EDT Narrative Authorizing ProviderResult TypeResult StatusStephanbriseyda Vargas COUNTS INCLUDE 234 BEDS AT THE [facility] BLOOD ORDERABLESFinal ResultPerforming OrganizationAddressCity/State/ZIP CodePhone Number [facility] ([facility]) [address] [place] [address] * (ABNORMAL) Protime-INR (09/18/2025 4:33 AM EDT)ComponentValueRef RangeTest MethodAnalysis TimePerformed AtPathologist UxdgndeuyZuhyxpf90.5(H)12.3 - 14.8 Heebudk8909/18/2025 6:32 AM [facility] ([facility])INR2.19(H)0.90 - 1.10 09/18/2025 6:32 AM [facility] ([facility])Comment: [facility] RECOMMENDED INR FOR WARFARIN THERAPY CONDITION ?INR PROPHYLAXIS OF VENOUS THROMBOSIS ? 2-3 (HIGH-RISK SURGERY) TREATMENT OF VENOUS THROMBOSIS ? 2-3 TREATMENT OF PULMONARY EMBOLISM ?2-3 PREVENTION OF SYSTEMIC EMBOLISM: ? 2-3 ?ACUTE MYOCARDIAL INFARCTION ?TISSUE HEART VALVES ?VALVULAR HEART DISEASE ?ATRIAL FIBRILLATION ?RECURRENT SYSTEMIC EMBOLISM MECHANICAL HEART VALVE ? 2.5-3.5 FROM: ORAL ANTICOAGULANTS. ??MECHANISM OF ACTION, CLINICAL EFFECTIVENESS, AND OPTIMAL THERAPEUTIC RANGE. ??CHEST 1995;108:231S-246S. Specimen (Source)Anatomical Location / LateralityCollection Method / Volume Collection TimeReceived TimeBloodVenous blood specimen / UnknownVenipuncture / Tlwyztc4409/18/2025 4:33 AM EDT1 4:50 AM EDT Narrative Authorizing ProviderResult TypeResult StatusAbhisada BAEZ BLOOD ORDERABLES Final ResultPerforming OrganizationAddressCity/State/ZIP CodePhone Number [facility] (PRETTY) [address] [place] [address] * (ABNORMAL) CBC (09/18/2025 4:33 AM EDT)ComponentValueRef RangeTest Method Analysis TimePerformed AtPathologist SignatureAuto WBC8.304.00 - 10.60 10*3/uL 09/18/2025 5:04 AM [facility] ([facility])RBC3.86(L)4.20 - 5.70 10*6/uL 09/18/2025 5:04 AM [facility] ([facility])Vqhlqtejzc57.0(L)13.0 - 17.0 g/dL09/18/2025 5:04 AM [facility] ([facility])Batphjdwkd43.5(L)39.0 - 50.0 %09/18/2025 5:04 AM [facility] ([facility])MCV97.282.0 - 98.0 fL 09/18/2025 5:04 AM [facility] ([facility])MCH31.127.0 - 33.0 pg 09/18/2025 5:04 AM [facility] ([facility])MCHC32.032.0 - 35.0 g/dL 09/18/2025 5:04 AM [facility] ([facility])RDW13.211.5 - 15.0 %09/18/2025 5:04 AM [facility] ([facility])Oncqugdty156028 - 400 10*3/uL09/18/2025 5:04 AM [facility] ([facility])Specimen (Source)Anatomical Location / LateralityCollection Method / VolumeCollection TimeReceived TimeBloodVenous blood specimen / UnknownVenipuncture / Yblhloy3009/18/2025 4:33 AM EDT1 4:56 AM EDT Narrative Authorizing ProviderResult TypeResult StatusBonaventure Kya [facility] BLOOD ORDERABLESFinal ResultPerforming OrganizationAddressCity/State/ZIP CodePhone Number [facility] ([facility]) [address] [place] [address] * (ABNORMAL) Anti-Xa (Heparin Level) (09/18/2025 4:33 AM EDT)ComponentValueRef RangeTest MethodAnalysis TimePerformed AtPathologist SignatureAnti-Xa (Heparin)0.80(H)0.3 - 0.7 IU/mL09/18/2025 5:19 AM [facility] ([facility])Comment:Rivaroxaban and Apixaban will interfere with the anti Xa assay used to monitor UFH and LMWH.Specimen (Source)Anatomical Location / LateralityCollection Method / VolumeCollection TimeReceived TimeBloodVenous blood specimen / UnknownVenipuncture / Gvnhdfa8609/18/2025 4:33 AM EDT1 4:50 AM EDT Narrative Authorizing ProviderResult TypeResult StatusCarlton Angulo [facility] BLOOD ORDERABLESFinal ResultPerforming OrganizationAddressCity/State/ZIP CodePhone Number [facility] ([facility]) [address] [place] [address] * (ABNORMAL) High Sensitivity Troponin I (09/18/2025 12:01 AM EDT)ComponentValue Ref RangeTest MethodAnalysis TimePerformed AtPathologist SignatureHigh Sensitivity Troponin I2,641(HH)<20 ng/L1 1:12 AM [facility] ([facility])Specimen (Source)Anatomical Location / LateralityCollection Method / VolumeCollection TimeReceived TimeBloodVenous blood specimen / Unknown Venipuncture / Inoavqe0009/18/2025 12:01 AM EDT1 12:35 AM EDT Narrative Authorizing ProviderResult TypeResult StatusCarlton Angulo [facility] BLOOD ORDERABLESFinal ResultPerforming OrganizationAddressCity/State/ZIP CodePhone Number [facility]) [address] [place] [address] * Anti-Xa (Heparin Level) (09/17/2025 5:25 PM EDT)ComponentValueRef RangeTest MethodAnalysis TimePerformed AtPathologist SignatureAnti-Xa (Heparin)0.570.3 - 0.7 IU/mL09/17/2025 6:11 PM [facility]Comment:Rivaroxaban and Apixaban will interfere with the anti Xa assay used to monitor UFH and LMWH.Specimen (Source)Anatomical Location / LateralityCollection Method / VolumeCollection TimeReceived TimeBloodVenous blood specimen / Unknown Venipuncture / Azyyesp9809/17/2025 5:25 PM EDT1 5:33 PM EDT Narrative Authorizing ProviderResult TypeResult StatusCarlton BAEZ BLOOD ORDERABLESFinal ResultPerforming OrganizationAddressCity/State/ZIP CodePhone Number [facility] ([facility]) [address] [place] [address] * (ABNORMAL) High Sensitivity Troponin I (09/17/2025 5:25 PM EDT)ComponentValue Ref RangeTest MethodAnalysis TimePerformed AtPathologist SignatureHigh Sensitivity Troponin I3,331(HH)<20 ng/L1 6:27 PM [facility] ([facility])Specimen (Source)Anatomical Location / LateralityCollection Method / VolumeCollection TimeReceived TimeBloodVenous blood specimen / Unknown Venipuncture / Uktwzvw7709/17/2025 5:25 PM EDT1 5:35 PM EDT Narrative Authorizing ProviderResult TypeResult StatusCarlton BAEZ BLOOD ORDERABLESFinal ResultPerforming OrganizationAddressCity/State/ZIP CodePhone Number [facility] ([facility]) [address] [place] [address] * (ABNORMAL) High Sensitivity Troponin I (09/17/2025 11:57 AM EDT)ComponentValue Ref RangeTest MethodAnalysis TimePerformed AtPathologist SignatureHigh Sensitivity Troponin I3,682(HH)<20 ng/L1 12:53 PM [facility] ([facility])Specimen (Source)Anatomical Location / LateralityCollection Method / VolumeCollection TimeReceived TimeBloodVenous blood specimen / Unknown Venipuncture / Kbezgpc3309/17/2025 11:57 AM EDT1 12:15 PM EDT Narrative Authorizing ProviderResult TypeResult StatusCarlton BAEZ BLOOD ORDERABLESFinal ResultPerforming OrganizationAddressCity/State/ZIP CodePhone Number [facility] ([facility]) [address] [place] [address] * (ABNORMAL) Protime-INR (09/17/2025 9:57 AM EDT)ComponentValueRef RangeTest MethodAnalysis TimePerformed AtPathologist XdfguurwrGkcebun13.6(H)12.3 - 14.8 Qdqpdnq2109/17/2025 10:39 AM [facility] ([place]TT[place])INR2.19(H)0.90 - 1.10 09/17/2025 10:39 AM [facility] ([facility])Comment: [facility] RECOMMENDED INR FOR WARFARIN THERAPY CONDITION ?INR PROPHYLAXIS OF VENOUS THROMBOSIS ? 2-3 (HIGH-RISK SURGERY) TREATMENT OF VENOUS THROMBOSIS ? 2-3 TREATMENT OF PULMONARY EMBOLISM ?2-3 PREVENTION OF SYSTEMIC EMBOLISM: ? 2-3 ?ACUTE MYOCARDIAL INFARCTION ?TISSUE HEART VALVES ?VALVULAR HEART DISEASE ?ATRIAL FIBRILLATION ?RECURRENT SYSTEMIC EMBOLISM MECHANICAL HEART VALVE ? 2.5-3.5 FROM: ORAL ANTICOAGULANTS. ??MECHANISM OF ACTION, CLINICAL EFFECTIVENESS, AND OPTIMAL THERAPEUTIC RANGE. ??CHEST 1995;108:231S-246S. Specimen (Source)Anatomical Location / LateralityCollection Method / Volume Collection TimeReceived TimeBloodVenous blood specimen / UnknownVenipuncture / Zjnhdzc3509/17/2025 9:57 AM EDT1 10:06 AM EDT Narrative Authorizing ProviderResult TypeResult StatusBonaventure Kya BAEZ BLOOD ORDERABLESFinal ResultPerforming OrganizationAddressCity/State/ZIP CodePhone Number [facility] ([facility]) [address] [place] [address] * Anti-Xa (Heparin Level) (09/17/2025 9:57 AM EDT)ComponentValueRef RangeTest MethodAnalysis TimePerformed AtPathologist SignatureAnti-Xa (Heparin)0.430.3 - 0.7 IU/mL09/17/2025 10:25 AM [facility] ([facility])Comment:Rivaroxaban and Apixaban will interfere with the anti Xa assay used to monitor UFH and LMWH.Specimen (Source)Anatomical Location / LateralityCollection Method / VolumeCollection TimeReceived TimeBloodVenous blood specimen / Unknown Venipuncture / Ozlvekz9109/17/2025 9:57 AM EDT1 10:06 AM EDT Narrative Authorizing ProviderResult TypeResult StatusOmar Jessi [facility] BLOOD ORDERABLES Final ResultPerforming OrganizationAddressCity/State/ZIP CodePhone Number [facility] ([facility]) [address] [place] [address] * ECG 12 lead (09/17/2025 9:39 AM EDT)ComponentValueRef RangeTest MethodAnalysis TimePerformed AtPathologist SignatureVentricular Gcat02TZZDR MUSEAtrial Rate 241BPMGE MUSEQRS UDFAAVQO311emJE MUSEQT Mrzwbrfq971yuCZ MUSEQTC CALCULATION(BAZETT)518msGE UIUWI-Ibga-48isdatuxYD MUSET Wave Lvic67rteqfblMT MUSESpecimen (Source)Anatomical Location / LateralityCollection Method / VolumeCollection TimeReceived Time09/17/2025 9:35 AM EDT1 10:21 AM EDT Impressions GE MUSE - 09/17/2025 10:21 AM EDT Ventricular-paced rhythm with intrinsic complexes Biventricular pacemaker detected Abnormal ECG When compared with ECG of 24-SEP-2017 07:23, Vent. rate has decreased BY ?? 7 BPM Confirmed by Volodymyr Knott (80) on 09/17/2025 10:21:06 AM Narrative Procedure Note Volodymyr Knott MD - 09/17/2025 IMPRESSION: Ventricular-paced rhythm with intrinsic complexes Biventricular pacemaker detected Abnormal ECG When compared with ECG of 24-SEP-2017 07:23, Vent. rate has decreased BY 7 BPM Confirmed by Volodymyr Knott (80) on 09/17/2025 10:21:06 AM Authorizing ProviderResult TypeResult StatusAbhisada CRABTREE ORDERABLESFinal ResultPerforming OrganizationAddressCity/State/ZIP CodePhone Number GE MUSE * aPTT - baseline (09/17/2025 3:50 AM EDT)ComponentValueRef RangeTest Method Analysis TimePerformed AtPathologist YselabckvwLER66.225.0 - 35.0 Seconds 09/17/2025 4:37 AM [facility] ([facility])Comment:Clinical significance of the APTT is questionable in the presence of heparin.Specimen (Source) Anatomical Location / LateralityCollection Method / VolumeCollection Time Received TimeBloodVenous blood specimen / UnknownVenipuncture / Unknown 09/17/2025 3:50 AM EDT1 4:00 AM EDT Narrative Authorizing ProviderResult TypeResult StatusBonavemaikol BAEZ BLOOD ORDERABLESFinal ResultPerforming OrganizationAddressCity/State/ZIP CodePhone Number [facility] ([facility]) [address] [place] [address] * (ABNORMAL) High Sensitivity Troponin I (09/17/2025 3:50 AM EDT)ComponentValue Ref RangeTest MethodAnalysis TimePerformed AtPathologist SignatureHigh Sensitivity Troponin I4,674(HH)<20 ng/L1 4:44 AM [facility] ([facility])Specimen (Source)Anatomical Location / LateralityCollection Method / VolumeCollection TimeReceived TimeBloodVenous blood specimen / Unknown Venipuncture / Wmbowyd9109/17/2025 3:50 AM EDT1 4:08 AM EDT Narrative Authorizing ProviderResult TypeResult StatusBonaveamikol BAEZ BLOOD ORDERABLESFinal ResultPerforming OrganizationAddressCity/State/ZIP CodePhone Number [facility] ([facility]) [address] [facility] [place] [address] * (ABNORMAL) Magnesium (09/17/2025 3:50 AM EDT)ComponentValueRef RangeTest MethodAnalysis TimePerformed AtPathologist SignatureMagnesium1.7(L)1.9 - 2.7 mg/dL09/17/2025 4:39 AM [facility] ([facility])Specimen (Source) Anatomical Location / LateralityCollection Method / VolumeCollection Time Received TimeBloodVenous blood specimen / UnknownVenipuncture / Unknown 09/17/2025 3:50 AM EDT1 4:08 AM EDT Narrative Authorizing ProviderResult TypeResult StatusBonavemaikol MirandaOur [facility] BLOOD ORDERABLESFinal ResultPerforming OrganizationAddressCity/State/ZIP CodePhone Number [facility] ([facility]) [address] [place] [address] * Lactic acid, plasma (09/17/2025 3:50 AM EDT)ComponentValueRef RangeTest Method Analysis TimePerformed AtPathologist SignatureLactate1.30.5 - 2.2 mmol/L 09/17/2025 4:24 AM [facility] ([facility])Specimen (Source)Anatomical Location / LateralityCollection Method / VolumeCollection TimeReceived Time BloodVenous blood specimen / UnknownVenipuncture / Ugcsiwd2309/17/2025 3:50 AM EDT1 4:00 AM EDT Narrative Authorizing ProviderResult TypeResult StatusBonavemaikol MirandaOur [facility] of the [facility] BLOOD ORDERABLESFinal ResultPerforming OrganizationAddressCity/State/ZIP CodePhone Number [facility] ([facility]) [address] [place] [address] * (ABNORMAL) Comprehensive metabolic panel (09/17/2025 3:50 AM EDT)Component ValueRef RangeTest MethodAnalysis TimePerformed AtPathologist SignatureSodium 244653 - 145 mmol/L1 4:39 AM [facility] ([facility])Potassium 3.4(L)3.5 - 5.1 mmol/L1 4:39 AM [facility] ([facility])Chloride 96577 - 107 mmol/L1 4:39 AM [facility] ([facility])RT24615 - 31 mmol/L1 4:39 AM [facility] ([facility])Anion Kus649 - 20 mmol/L1 4:39 AM [facility] ([facility])BUN33(H)7 - 25 mg/dL 09/17/2025 4:39 AM [facility] ([facility])Creatinine1.040.70 - 1.30 mg/dL09/17/2025 4:39 AM [facility] ([facility])BUN/Creatinine Ratio31.7 09/17/2025 4:39 AM [facility] ([facility])Wisklmy072(H)70 - 100 mg/dL 09/17/2025 4:39 AM [facility] ([facility])Calcium8.78.6 - 10.3 mg/dL 09/17/2025 4:39 AM [facility] ([facility])DVW1960 - 39 U/L1 4:39 AM [facility] ([facility])ALT (SGPT)167 - 52 U/L1 4:39 AM [facility] ([facility])Alkaline Pnybhpypkcz3372 - 104 U/L1 4:39 AM [facility] ([facility])Total Protein6.06.0 - 8.3 g/dL09/17/2025 4:39 AM [facility] ([facility])Albumin3.83.5 - 5.7 g/dL09/17/2025 4:39 AM [facility] ([facility])Total Bilirubin1.1(H)0.3 - 1.0 mg/dL09/17/2025 4:39 AM [facility] ([facility])eGFR69.1>60.0 mL/min/1.73m* 4:39 AM [facility] ([facility])Comment:The [facility]???s estimated glomerular filtration rate (eGFR) will no longer include consideration of race in its calculation. The [employer]???s eGFR Task Force developed new recommendations for the estimation of the glomerular filtration rate in the [place] They recommend immediate implementation of the new equation refit without the race variable in all laboratories because the calculation does not include race. In addition to not including race in the calculation and reporting, it included diversity in its development, and has acceptable performance characteristics and potential consequences that do not disproportionately affect any one group of ind ividuals.Specimen (Source)Anatomical Location / LateralityCollection Method / VolumeCollection TimeReceived TimeBloodVenous blood specimen / Unknown Venipuncture / Giemqyd6509/17/2025 3:50 AM EDT1 4:08 AM EDT Narrative Authorizing ProviderResult TypeResult StatusLaw[facility] BLOOD ORDERABLESFinal ResultPerforming OrganizationAddressCity/State/ZIP CodePhone Number [facility] [address] [place] [address] * (ABNORMAL) B-type natriuretic peptide (09/17/2025 3:50 AM EDT)ComponentValue Ref RangeTest MethodAnalysis TimePerformed AtPathologist SignatureBNP1,209(H)0 - 100 pg/mL09/17/2025 4:38 AM [facility]Specimen (Source) Anatomical Location / LateralityCollection Method / VolumeCollection Time Received TimeBloodVenous blood specimen / UnknownVenipuncture / Unknown 09/17/2025 3:50 AM EDT1 4:08 AM EDT Narrative Authorizing ProviderResult TypeResult StatusBonavePresbyterian/St[facility] BLOOD ORDERABLESFinal ResultPerforming OrganizationAddressCity/State/ZIP CodePhone Number [facility] [address] [place] [address] * (ABNORMAL) CBC (09/17/2025 3:50 AM EDT)ComponentValueRef RangeTest Method Analysis TimePerformed AtPathologist SignatureAuto WBC9.654.00 - 10.60 10*3/uL 09/17/2025 4:19 AM [facility]RBC3.74(L)4.20 - 5.70 10*6/uL 09/17/2025 4:19 AM [facility] ([facility])Lvicgbjppr83.6(L)13.0 - 17.0 g/dL09/17/2025 4:19 AM [facility] ([facility])Kiwqcfwrny16.5(L)39.0 - 50.0 %09/17/2025 4:19 AM [facility] ([facility])MCV94.982.0 - 98.0 fL 09/17/2025 4:19 AM [facility] ([facility])MCH31.027.0 - 33.0 pg 09/17/2025 4:19 AM [facility] ([facility])MCHC32.732.0 - 35.0 g/dL 09/17/2025 4:19 AM [facility] ([facility])RDW13.311.5 - 15.0 %09/17/2025 4:19 AM [facility] ([facility])Gptlgotcc083695 - 400 10*3/uL09/17/2025 4:19 AM [facility] ([facility])Specimen (Source)Anatomical Location / LateralityCollection Method / VolumeCollection TimeReceived TimeBloodVenous blood specimen / UnknownVenipuncture / Roaaucj5909/17/2025 3:50 AM EDT1 4:08 AM EDT Narrative Authorizing ProviderResult TypeResult StatusBonaventure KyaOur Lady of the Sea Hospital BLOOD ORDERABLESFinal ResultPerforming OrganizationAddressCity/State/ZIP CodePhone Number [facility] ([facility]) [address] [place] [address] documented in this encounter Visit Diagnoses Diagnosis NSTEMI (non-ST elevated myocardial infarction) (CMS/HCC)- Primary Acute myocardial infarction, subendocardial infarction, episode of care unspecified NSTEMI (non-ST elevated myocardial infarction) (CMS/HCC) Acute myocardial infarction, subendocardial infarction, episode of care unspecified S/P drug eluting coronary stent placement Chronic atrial fibrillation (CMS/HCC) Atrial fibrillation Morbid obesity with BMI of 40.0-44.9, adult (CMS/[facility]) Hyperlipidemia Other and unspecified hyperlipidemia CAD (coronary artery disease) Coronary atherosclerosis of unspecified type of vessel, [place] or graft Chronic atrial fibrillation ([facility]) Atrial fibrillation Presence of biventricular cardiac pacemaker SAULO (obstructive sleep apnea) Obstructive sleep apnea (adult) (pediatric) 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) ([facility]) Class 1 obesity due to excess calories with serious comorbidity and body mass index (BMI) of 34.0 to 34.9 in adult COPD without exacerbation ([facility]) NSTEMI (non-ST elevated myocardial infarction) [place] Acute myocardial infarction, subendocardial infarction, episode of care unspecified documented in this encounter Admitting Diagnoses Diagnosis NSTEMI (non-ST elevated myocardial infarction) [place] Acute myocardial infarction, subendocardial infarction, episode of care unspecified documented in this encounter Administered Medications Medication OrderMAR ActionAction DateDoseRateSite acetaminophen (Tylenol) tablet 650 mg 650 mg, oral, Every 6 hours PRN, mild pain (1-3 pain score), headaches, fever greater than or equalto 38 degrees Celsius, (1-3), Starting on Thu09/17/25 at 0302, For 99 days aspirin chewable tablet 81 mg 81 mg, oral, Daily with breakfast, First dose on Thu09/18/25 at 0800, For 99 days Given09/20/2025 9:16 AM EDT81 otYklnr2209/19/2025 8:58 AM EDT81 drRulyw6509/18/2025 8:28 AM EDT81 mg atorvastatin (Lipitor) tablet 80 mg 80 mg, oral, Nightly, First dose on Thu09/17/25 at 2200, For 99 days Given09/19/2025 8:18 PM EDT80 cvGmlcs9709/18/2025 9:35 PM EDT80 anWeklo6109/17/2025 9:26 PM EDT80 mg carvedilol (Coreg) tablet 6.25 mg 6.25 mg, oral, 2 times daily with meals, First dose on Thu09/17/25 at 0845, For 99 days Given09/20/2025 9:16 AM EDT6.25 uyUjkdf3409/19/2025 8:18 PM EDT6.25 mgGiven 09/19/2025 8:56 AM EDT6.25 mg clopidogrel (Plavix) tablet 75 mg 75 mg, oral, Daily, First dose on Thu09/20/25 at 1000, For 99 days Given09/20/2025 9:16 AM EDT75 mg DULoxetine (Cymbalta) DR capsule 30 mg 30 mg, oral, Daily, First dose on Thu09/18/25 at 1000, For 99 days, Do not crush or chew. Given09/20/2025 9:16 AM EDT30 ymHgoqx6209/19/2025 9:00 AM EDT30 pgAzbxx7809/18/2025 9:55 AM EDT30 mg ferrous sulfate tablet 325 mg 325 mg, oral, Daily with breakfast, First dose on Thu09/17/25 at 0845 Given09/20/2025 9:16 AM JNU051 zfPrjas0709/19/2025 8:57 AM PIN031 mgven 09/18/2025 8:27 AM DPD043 mg furosemide (Lasix) tablet 20 mg 20 mg, oral, Daily, First dose on Thu09/17/25 at 1000, For 99 days 09/20/2025 9:16 AM EDT20 sjBfkgr5509/19/2025 9:00 AM EDT20 qdAfsmd8109/18/2025 9:55 AM EDT20 mg furosemide (Lasix) tablet 20 mg 20 mg, oral, 2 times daily with meals, First dose (after last modification) on Thu09/20/25 at 1700, For 95 days heparin infusion 100 units/mL in D5W 0-28 Units/kg/hr ?? 99.7 kg (0-27.916 mL/hr, rounded to 0-27.9 mL/hr), intravenous, Continuous, Starting on Thu09/17/25 at 0345, For 99 days, Cardiac/Stroke protocol - Monitor antiXa level 6 hours after rate change, then every 6 hours until therapeutic twice. While therapeutic monitor every AM., In itial Heparin rate (units/kg/hr): 15, Anti-Xa < 0.20 Maintenance Dose Adjustment (units/kg/hr): 2, Anti-Xa < 0.20 Bolus Dose (units/kg): 0, Anti-Xa 0.2-0.29 Heparin Maintenance Dose Adjustment (units/kg/hr): 1, Anti-Xa 0.3-0.7 Maintenance Dose Adjustment (units/kg/hr): 0, Anti-Xa 0.71-0.8 Maintenance Dose Adjustment (units/kg/hr): -1, Anti-Xa 0.81-0.99 Maintenance Dose Adjustment (units/kg/hr): -2, Anti-Xa 1.00 or greater = Maintenance Dose Adjustment (units/kg/hr): -2, Anti-Xa 1.0 or greater = Bolus Dose (units/kg): 0, Anti-Xa 1.0 or greater = adjust current infusion: Hold infusion for1 hour, then restart at 2 units/kg/hr below current dose., Indication: Cardiac/Stroke, On hold since Thu09/18/2025 at 1052 until manually unheld Rate/Dose Zbpiqh3109/18/2025 5:43 AM EDT14 Units/kg/hr14 mL/hrNew Bag09/17/2025 6:59 PM EDT15 Units/kg/hr15 mL/hrRate/Dose Nrwpdw7509/17/2025 6:37 AM EDT15 Units/kg/hr15 mL/hr magnesium sulfate in D5W IVPB 1 g 1 g, intravenous, at 100 mL/hr, Administer over 1 Hours, Every 1 hour, First dose on Thu09/17/25 at 1545, For 2 doses 09/17/2025 5:41 PM EDT1 g100 mL/hrNew 09/17/2025 4:37 PM EDT1 g100 mL/hr magnesium sulfate in D5W IVPB 1 g 1 g, intravenous, at 100 mL/hr, Administer over 1 Hours, Every 1 hour, First dose on Thu09/20/25 at 0900, For 2 doses New 09/20/2025 10:43 AM EDT1 g100 mL/hrNew 09/20/2025 9:17 AM EDT1 g100 mL/hr montelukast (Singulair) tablet 10 mg 10 mg, oral, Daily, First dose on Thu09/18/25 at 1000, For 99 days Given09/20/2025 9:16 AM EDT10 rxQvfbq6509/19/2025 9:00 AM EDT10 tbOgouw5809/18/2025 9:55 AM EDT10 mg pantoprazole (ProtoNix) EC tablet 40 mg 40 mg, oral, Daily at 7am, First dose on Thu09/18/25 at 0745, Do not crush, chew, or split., Indication: Stress Ulcer Prophylaxis Given09/20/2025 6:07 AM EDT40 vtTelqq5609/19/2025 6:12 AM EDT40 luKiypt7309/18/2025 8:27 AM EDT40 mg phytonadione (Vitamin K) split tablet 2.5 mg 2.5 mg, oral, Once, On Thu09/18/25 at 1230, For 1 dose Given09/18/2025 4:56 PM EDT2.5 mg potassium chloride CR (Klor-Con M20) ER tablet 40 mEq 40 mEq, oral, Once, On Thu09/17/25 at 1545, For 1 dose, Best given with food and plenty of water to minimize gastric irritation. Do not crush or chew. Given09/17/2025 4:36 PM EDT40 mEq potassium chloride CR (Klor-Con M20) ER tablet 40 mEq 40 mEq, oral, Once, On Thu09/19/25 at 0815, For 1 dose, Best given with food and plenty of water to minimize gastric irritation. Do not crush or chew. Given09/19/2025 8:55 AM EDT40 mEq potassium chloride CR (Klor-Con M20) ER tablet 40 mEq 40 mEq, oral, Once, On Thu09/20/25 at 0900, For 1 dose, Best given with food and plenty of water to minimize gastric irritation. Do not crush or chew. Given09/20/2025 9:16 AM EDT40 mEq sennosides-docusate sodium (Christina-Colace) 8.6-50 mg per tablet 1 tablet 1 tablet, oral, 2 times daily PRN, constipation, Starting on Thu09/17/25 at 0302, For 99 days sodium chloride flush 10 mL 10 mL, intravenous, Every 8 hours PRN, line care, Starting on Thu09/17/25 at 0302, For 99 days sucralfate (Carafate) tablet 1 g 1 g, oral, 2 times daily before meals, First dose on Thu09/17/25 at 1600, For 99 days, Give on an empty stomach (1 hr before meals, at bedtime). Separate all other meds by at least 2 hours (exception: antacids may be given only 30 minutes apart). Given09/20/2025 3:03 PM EDT1 aFqcoj2309/20/2025 6:07 AM EDT1 g sulfur hexafluoride microsphr (Lumason) injection 24.28 mg 24.28 mg (2 mL), intravenous, Once in imaging, Starting on Thu09/18/25 at 1043, For 1 dose Given09/18/2025 10:43 AM EDT24.28 mgdocumented in this encounter Active and Recently Administered Medications Times are shown in EDT.Medication Order/ aspirin chewable tablet 81 mg 81 mg, oral, Daily with breakfast, First dose on Thu09/18/25 at 0800, For 99 days * 0828 (Given - Provider: Kelli Gupta RN) * 0858 (Given - Provider: Kelli Gupta RN) * 0916 (Given - Provider: Olivia Luna, RN) atorvastatin (Lipitor) tablet 80 mg 80 mg, oral, Nightly, First dose on Thu09/17/25 at 2200, For 99 days * 2135 (Given - Provider: Mian Lewis, RN) * 2017 (Given - Provider: Mian Lewis, RN) carvedilol (Coreg) tablet 6.25 mg 6.25 mg, oral, 2 times daily with meals, First dose on Thu09/17/25 at 0845, For 99 days * 0827 (Given - Provider: Kelli Gupta RN) * 1700 (Given - Provider: Kelli Gupta, RN) * 0856 (Given - Provider: Kelli Gupta, RN) * 2018 (Given - Provider: Mian Lewis, RN) * 0916 (Given - Provider: Olivia Luna, RN) * 1800 (Canceled Entry - Provider: Automatic Discharge Provider - Comment: Automatically canceled at discontinue of medication order) clopidogrel (Plavix) tablet 75 mg 75 mg, oral, Daily, First dose on Thu09/20/25 at 1000, For 99 days * 0916 (Given - Provider: Olivia Luna, MARYAN) DULoxetine (Cymbalta) DR capsule 30 mg 30 mg, oral, Daily, First dose on Thu09/18/25 at 1000, For 99 days, Do not crush or chew. * 0955 (Given - Provider: Kelli Gupta RN) * 0900 (Given - Provider: Kelli Gupta, RN) * 0916 (Given - Provider: Olivia Luna, RN) ferrous sulfate tablet 325 mg 325 mg, oral, Daily with breakfast, First dose on Thu09/17/25 at 0845 * 0827 (Given - Provider: Kelli Gupta RN) * 0857 (Given - Provider: Kelli Gupta, RN) * 0916 (Given - Provider: Olivia Luna, RN) furosemide (Lasix) tablet 20 mg (CANCELED) 20 mg, oral, Daily, First dose on Thu09/17/25 at 1000, For 99 days * 0955 (Given - Provider: Kelli Gupta RN) * 0900 (Given - Provider: Kelli Gupta, MARYAN) * 0916 (Given - Provider: Olivia Luna, MARYAN) furosemide (Lasix) tablet 20 mg 20 mg, oral, 2 times daily with meals, First dose (after last modification) on Thu09/20/25 at 1700, For 95 days * 1700 (Canceled Entry - Provider: Automatic Discharge Provider - Comment: Automatically canceled at discontinue of medication order) magnesium sulfate in D5W IVPB 1 g (COMPLETED) 1 g, intravenous, at 100 mL/hr, Administer over 1 Hours, Every 1 hour, First dose on Thu09/20/25 at 0900, For 2 doses * 0917 (New Bag - Provider: Olivia Lnua RN) * 0959 (Stopped - Provider: Olivia Luna, RN) * 1043 (New Bag - Provider: Olivia Luna, RN) * 1143 (Stopped - Provider: Olivia Luna, RN) montelukast (Singulair) tablet 10 mg 10 mg, oral, Daily, First dose on Thu09/18/25 at 1000, For 99 days * 0955 (Given - Provider: Kelli Gupta RN) * 0900 (Given - Provider: Kelli Gupta, RN) * 0916 (Given - Provider: Olivia Luna, MARYAN) pantoprazole (ProtoNix) EC tablet 40 mg 40 mg, oral, Daily at 7am, First dose on Thu09/18/25 at 0745, Do not crush, chew, or split., Indication: Stress Ulcer Prophylaxis * 0827 (Given - Provider: Kelli Gupta RN) * 0612 (Given - Provider: Mian Lewis RN) * 0607 (Given - Provider: Mian Lewis RN) phytonadione (Vitamin K) split tablet 2.5 mg (COMPLETED) 2.5 mg, oral, Once, On Thu09/18/25 at 1230, For 1 dose * 1656 (Given - Provider: Kelli Gupta RN - Comment: med did not arrive until after 4:40pm) potassium chloride CR (Klor-Con M20) ER tablet 40 mEq (COMPLETED) 40 mEq, oral, Once, On Thu09/19/25 at 0815, For 1 dose, Best given with food and plenty of water to minimize gastric irritation. Do not crush or chew. * 0855 (Given - Provider: Kelli Gupta RN) potassium chloride CR (Klor-Con M20) ER tablet 40 mEq (COMPLETED) 40 mEq, oral, Once, On Thu09/20/25 at 0900, For 1 dose, Best given with food and plenty of water to minimize gastric irritation. Do not crush or chew. * 0916 (Given - Provider: Olivia Luna RN) sucralfate (Carafate) tablet 1 g 1 g, oral, 2 times daily before meals, First dose on Thu09/17/25 at 1600, For 99 days, Give on an empty stomach (1 hr before meals, at bedtime). Separate all other meds by at least 2 hours (exception: antacids may be given only 30 minutes apart). * 0700 (Not Given - Provider: Viktoria Ying RN - Reason: NPO) * 1600 (Not Given - Provider: Kelli Gupta RN - Reason: Other - Comment: med unable to be given d/t other scheduled meds being too close to this scheduled dose) * 0611 (Not Given - Provider: Mian Lewis RN - Reason: NPO) * 1600 (Not Given - Provider: Kelli Gupta RN - Reason: Patient not available - Comment: pt off unit at [facility]) * 0607 (Given - Provider: Mian Lewis, RN) * 1503 (Given - Provider: Olivia Luna, MARYAN) sulfur hexafluoride microsphr (Lumason) injection 24.28 mg (COMPLETED) 24.28 mg (2 mL), intravenous, Once in imaging, Starting on Thu09/18/25 at 1043, For 1 dose * 1043 (Given - Provider: Shawn Mena ARELIS) Medication Order/ heparin infusion 100 units/mL in D5W 0-28 Units/kg/hr ?? 99.7 kg (0-27.916 mL/hr, rounded to 0-27.9 mL/hr), intravenous, Continuous, Starting on Thu09/17/25 at 0345, For 99 days, Cardiac/Stroke protocol - Monitor antiXa level 6 hours after rate change, then every 6 hours until therapeutic twice. While therapeutic monitor every AM., In itial Heparin rate (units/kg/hr): 15, Anti-Xa < 0.20 Maintenance Dose Adjustment (units/kg/hr): 2, Anti-Xa < 0.20 Bolus Dose (units/kg): 0, Anti-Xa 0.2-0.29 Heparin Maintenance Dose Adjustment (units/kg/hr): 1, Anti-Xa 0.3-0.7 Maintenance Dose Adjustment (units/kg/hr): 0, Anti-Xa 0.71-0.8 Maintenance Dose Adjustment (units/kg/hr): -1, Anti-Xa 0.81-0.99 Maintenance Dose Adjustment (units/kg/hr): -2, Anti-Xa 1.00 or greater = Maintenance Dose Adjustment (units/kg/hr): -2, Anti-Xa 1.0 or greater = Bolus Dose (units/kg): 0, Anti-Xa 1.0 or greater = adjust current infusion: Hold infusion for1 hour, then restart at 2 units/kg/hr below current dose., Indication: Cardiac/Stroke, On hold since Thu09/18/2025 at 1052 until manually unheld * 0543 (Rate/Dose Change - Provider: Viktoria Ying RN) * 0716 (Handoff - Provider: Kelli Gupta RN) * 1052 (Stopped - Provider: Kelli Gupta RN) * 1052 (Held by provider - Provider: Roge Gomez MD - Reason: Other) * 1821 (Unheld by provider - Provider: Automatic Discharge Provider) Medication Order acetaminophen (Tylenol) tablet 650 mg 650 mg, oral, Every 6 hours PRN, mild pain (1-3 pain score), headaches, fever greater than or equalto 38 degrees Celsius, (1-3), Starting on Thu09/17/25 at 0302, For 99 days clopidogrel (Plavix) tablet (CANCELED) As needed, Starting on Thu09/19/25 at 1714, Intraprocedure * 1714 (Given - Provider: Jeremiah Avina RN) fentaNYL (Sublimaze) injection (CANCELED) As needed, Starting on Thu09/19/25 at 1534, Intraprocedure * 1534 (Given - Provider: Jeremiah Avina RN) * 1611 (Given - Provider: Jeremiah Avina RN) heparin (porcine) injection (CANCELED) As needed, Starting on Thu09/19/25 at 1553, Intraprocedure * 1545 (Given - Provider: Jeremiah Avina RN) * 1553 (Given - Provider: Jeremiah Avina RN) * 1621 (Given - Provider: Jeremiah Avina RN) * 1640 (Given - Provider: Jeremiah Avina RN) iodixanol (VISIPaque) 320 mg iodine/mL injection (CANCELED) As needed, Starting on Thu09/19/25 at 1705, Intraprocedure * 1705 (Given - Provider: Salo Campbell MD) midazolam (Versed) injection (CANCELED) As needed, Starting on Thu09/19/25 at 1534, Intraprocedure * 1534 (Given - Provider: Jeremiah Avina RN) * 1612 (Given - Provider: Jeremiah Avina RN) sennosides-docusate sodium (Christina-Colace) 8.6-50 mg per tablet 1 tablet 1 tablet, oral, 2 times daily PRN, constipation, Starting on Thu09/17/25 at 0302, For 99 days sodium chloride 0.9 % infusion (COMPLETED) Continuous PRN, Starting on Thu09/19/25 at 1528, Intraprocedure * 1528 (New Bag - Provider: Jeremiah Avina RN) sodium chloride flush 10 mL(Linked Group 1) 10 mL, intravenous, Every 8 hours PRN, line care, Starting on Thu09/17/25 at 0302, For 99 days verapamil (Isoptin) injection (CANCELED) As needed, Starting on Thu09/19/25 at 1543, Intraprocedure * 1543 (Given - Provider: Salo Campbell MD) Order Group 1: Insert peripheral IV (CANCELED) Once, On Thu09/17/25 at 0303, For 1 occurrence And Saline lock IV (CANCELED) Once, On Thu09/17/25 at 030, For 1 occurrence And sodium chloride flush 10 mLJump to med 10 mL, intravenous, Every 8 hours PRN, line care, Starting on Thu09/17/25 at 0302, For 99 days documented in this encounter Care Teams Team MemberRelationshipSpecialtyStart DateEnd Date Rio Frey MD [address] [place] [id number] PCP - Mcgoesd06/23/22documented as of this encounter
--- OUTSIDE RECORDS SUMMARY | 2025-09-19 18:00 | XMS_ITS | Encounter Summary ---
Author Organization [facility] Address [address] [place] [address] Care Team Providers Care Popcorn Vendor Name Role Phone Rio Frey MD Primary Care Provider [phone] Reason for Visit * Auth/Cert (Routine)SpecialtyDiagnoses / ProceduresReferred By ContactReferred To Contact Diagnoses NSTEMI (non-ST elevated myocardial infarction) ([facility]/H[facility]) NSTEMI Procedures NO CODED SERVICE Perri Boland MD [address] [place] [address] Phone: tel: fax: [facility] [address] [place] [address] Phone: tel: fax: Referral IDStatusReasonStart DateExpiration DateVisits RequestedVisits [id number] Encounter Details DateTypeDepartmentCare Team (Latest Contact Info)Nildjsahsea10/21/2025 6:00 PM EDT - 09/19/2025 7:15 PM EDTSurgery [facility] V[facility] [address] [place] [address] Salo Campbell MD [address] [facility] [address] [place] [address] Coronary angiography Social History Tobacco UseTypesPacks/DayYears UsedDateSmoking Tobacco: CcaexeMayirgsdct1567 - 1984Smokeless Tobacco: NeverAlcohol UseStandard Drinks/WeekCommentsNot Currently 0 (1 standard drink = 0.6 oz pure alcohol)[facility] UtilitiesAnswerDate RecordedIn the past 12 months has the electric, gas, oil, or water company threatened to shut off services in your [...] were you homeless or living in a long term (including now)? No09/17/2025Hunger Vital SignAnswerDate RecordedWithin the past 12 months, you worried that your food would run out before you got the money to buymore.Never true09/17/2025Ran Out of Food in the Last YearNot on file09/17/2025Sex and Gender InformationValueDate RecordedSex Assigned at IgbzsYmkx66/09/2025 2:41 PM EDTLegal YhvRfak8305/28/2022 10:25 PM EDTGender MjjyxliyIxbu81/09/2025 2:41 PM EDT Sexual OrientationHeterosexual or Kkmtpnje92/09/2025 2:41 PM EDTdocumented as of this encounter Last Filed Vital Signs Vital SignReadingTime TakenCommentsBlood Tobsmril264/9310/ 7:00 PM EDT Kipjv777409/19/2025 7:00 PM PHQSqfzuamdakn23.9 ??C (98.5 ??F)09/19/2025 11:54 AM EDTRespiratory Pvlj5243 7:00 PM EDTOxygen Jbhvmbrxba758%09/19/2025 7:00 PM EDTInhaled Oxygen Concentration--Mguwty57.1 kg (214 lb)09/19/2025 2:40 AM EDT Hrzzvn922.7 cm (5' 8 )09/17/2025 2:46 AM EDTBody Mass Index32.5709/17/2025 2:46 AM EDTdocumented in this encounter Functional Status * QuestionAnswerDate of RjvtzjnavnQcdokiLD260/9309/19/2025 7:00 PM Kelli Mariscal, QCMqcak4030/21/2025 7:00 PM Kelli Mariscal RNHeart Rate Source Folaoxr9209/19/2025 11:54 AM Kelli Mariscal RNPatient PositionLying 09/19/2025 11:54 AM Kelli Mariscal RN * Ben Fall RiskQuestionAnswerDate of AssessmentAuthorHistory of Falling, Immediate or Within 3 Rwgefj878 8:00 AM Kelli Mariscal RN Secondary Ftxumfstq2598/21/2025 8:00 AM Kelli Mariscal, RNAmbulatory Aid15 09/19/2025 8:00 AM Kelli Mariscal RNIntravenous Therapy/Heparin Lock20 09/19/2025 8:00 AM Kelli Mariscal RNGait/Bzqjkwilrzyo8321/21/2025 8:00 AM Kelli Mariscal RNMental Udpbfr989/21/2025 8:00 AM Kelli Mariscal RN Morse Fall Risk Ljalw801509/19/2025 8:00 AM Kelli Mariscal RN * Lorenzo ScaleQuestionAnswerDate of AssessmentAuthorBraden No Risk Interventions Continue to assess patient according to level of care09/19/2025 8:05 AM Kelli Lora, RNSensory Qjnlzuyebpy370/21/2025 8:05 AM Kelli Mariscal, VMPbmtvbdy723/21/2025 8:05 AM Kelli Mariscal, RJXcsfnyyr431/21/2025 8:05 AM Kelli Mariscal, XPAougillh150/21/2025 8:05 AM Kelli Mariscal, RN Xputbuapc066/21/2025 8:05 AM Kelli Mariscal, RNFriction and Shear3 09/19/2025 8:05 AM Kelli Mariscal RNBraden Scale Xekgv985109/19/2025 8:05 AM Kelli Mariscal RN * [place] Fall Risk InterventionsQuestionAnswerDate of AssessmentAuthor [place] Fall Risk NndinhdihkvpfTsfrbpod78/21/2025 8:00 AM Kelli Mariscal RN * Pain Assessment TimerQuestionAnswerDate of AssessmentAuthorRestart Pain Assessment BezleMni54/21/2025 6:15 PM Rebecca Castillo RN * Sepsis Model ScoresQuestionAnswerDate of AssessmentAuthorEarly Detection of Sepsis Score1.0609/19/2025 7:15 PM Rodney LiangEarly Detection of Sepsis Score0.310 7:15 PM Rodney Liang * Pain AssessmentQuestionAnswerDate of AssessmentAuthorPain Interventions Jdbuhnzd73/21/2025 8:05 AM Kelli Mariscal RNPatient's Stated Pain GoalNo pain09/19/2025 1:08 PM Tracy Jones PTPain AssessmentNo/denies pain 09/19/2025 6:15 PM Rebecca Castillo RN * Audit Alcohol ScreeningQuestionAnswerDate of AssessmentAuthorHow often do you have a drink containing alcohol? 2:42 AM Margie Bledsoe RN How many standard drinks containing alcohol do you have on a typical day?No 09/17/2025 2:42 AM Margie Bledsoe RNHow often do you have six or more drinks on one occasion? 2:42 AM Margie Bledsoe RNAudit-C Tznak975 2:42 AM Margie Bledsoe RN * Deterioration Index ScoreQuestionAnswerDate of AssessmentAuthorDeterioration Index Score39.4909/19/2025 7:15 PM Rodney Liang * QuestionAnswerDate of AssessmentAuthorTherapeutic Activity Time Entry28 09/19/2025 1:05 PM Tracy Jones, PT * Head, Ears, Eyes, Nose, and Throat (HEENT)QuestionAnswerDate of Assessment AuthorHead, Ears, Eyes, Nose, and Throat (WDL)X1 8:05 AM Kelli Mariscal RNR EyeMildly impaired hbahci0409/19/2025 8:05 AM Kelli Mariscal RN L EyeMildly impaired adyveo2809/19/2025 8:05 AM Kelli Mariscal RNR Ear Mildly impaired iphxswi9109/19/2025 8:05 AM Kelli Mariscal RNL EarMildly impaired onussly0009/19/2025 8:05 AM Kelli Mariscal RNVoiceWeak09/17/2025 2:30 AM Viktoria Amor RNTeethMissing teeth;Dentures upper09/19/2025 8:05 AM Kelli Mariscal RNDenture TcitbbOcklkt92/21/2025 8:05 AM Kelli Lora RN * Short Portable Mental StatusQuestionAnswerDate of AssessmentAuthorWhat are the date, month, year? 8:00 AM Kelli Mariscal RNWhat is the day of the week? 8:00 AM Kelli Mariscal RNWhat is the name of this place? 8:00 AM Kelli Mariscal RNWhat is your phone number?0 09/18/2025 7:50 PM Mian Aparicio RNHow old are you? 8:00 AM Kelli Lora RNWhen were you born? 8:00 AM Kelli Mariscal RNWho is the current president? 8:00 AM Kelli Mariscal RNWho was the president before him? 8:00 AM Kelli Mariscal RNWhat was your mother's maiden name? 7:50 PM Mian Aparicio RNCan you count backward from 20 by 3s? 7:50 PM Mian Aparicio RNShort Portable Mental Xtjfe904 7:50 PM Mian Aparicio RN * Fall Risk LevelQuestionAnswerDate of AssessmentAuthorMobility zoneModerate (Yellow Zone)09/19/2025 8:00 AM Kelli Mariscal RNMorse fall risk zone Moderate (Yellow Zone)09/19/2025 8:00 AM Kelli Mariscal RNMental status questionaire zoneLow (Green Zone)09/19/2025 8:00 AM Kelli Mariscal RN * QuestionAnswerDate of AssessmentAuthorPulse rate from Plethysmogram (bpm)59 09/19/2025 7:00 PM Kelli Mariscal RN * HearingAnswerDate of AssessmentAuthorMild HOH1 3:38 PM Chhaya Clarke OT * Skin IntegrityAnswerDate of AssessmentAuthorPatient had mediplex padding on coccyx to protect skin.09/19/2025 3:38 PM Chhaya Clarke OT * EdemaAnswerDate of AssessmentAuthorNone noted09/19/2025 3:38 PM Chhaya Clarke OT * Hand DominanceAnswerDate of RubmxsntyuBbbaqkTagor16/21/2025 3:38 PM EDT Tarah, Chhaya, OT * Skin Assessment Sign offQuestionAnswerDate of AssessmentAuthorDual Sign-off - Admission/Gwzhkzeqvdlcduw28/19/2025 2:30 AM Viktoria Amor RNAny new wounds identified on admission/transfer?Yes09/17/2025 2:30 AM Viktoria Amor RNPrograceder notified of new jslfkGjo58/19/2025 2:30 AM Viktoria Amor RN * 6 Clicks (Mobility)QuestionAnswerDate of AssessmentAuthorHelp from another person climbing 3-5 steps with a /21/2025 1:05 PM Tracy Jones PTHelp from another person turning from your back to your side while in a flat bed without using zwjfhirz725/21/2025 1:05 PM Tracy Jones, PTHelp from another person moving from lying on your back to sitting on the side of a flat bed without using ejccaboe223/21/2025 1:05 PM Tracy Jones, PTHelp from another person moving to and from a bed to a chair (including a wheelchair)3 09/19/2025 1:05 PM Tracy Jones PTHelp from another person standing up from a chair using your arms (e.g. wheelchair or bedside chair) 1:05 PM Tracy Jones, PTHelp from another person to walk in hospital room3 09/19/2025 1:05 PM Tracy Jones, PTMobility 6 Clicks T-Urovg5082/21/2025 1:05 PM Tracy Jones, PT * Vital SignsQuestionAnswerDate of JkbzhiesprGamzxeLV283/9309/19/2025 7:00 PM Kelli Mariscal RNTemp98. 11:54 AM Kelli Mariscal RNTemp qkeVpkndkxg15/21/2025 11:54 AM Kelli Mariscal RNPulse6010 7:00 PM Kelli Mariscal RNResp121 7:00 PM Kelli Mariscal, QMTfT8099 09/19/2025 7:00 PM Kelli Mariscal RNHeart Rate RqqmczSfqftol12/21/2025 11:54 AM Kelli Mariscal RNBP LocationLeft arm09/19/2025 11:54 AM Kelli Lora RNBP ZlbcebGsmnbrxzp19/21/2025 11:54 AM Kelli Mariscal RNMAP (mmHg)7928909/19/2025 7:00 PM Kelli Mariscal, RNPatient PositionLying 09/19/2025 11:54 AM Kelli Mariscal RN * QuestionAnswerDate of AssessmentAuthorLevel of LdvvsoovzzyytYlbig61/21/2025 8:05 AM Kelli Mariscal RNCognitionAppropriate judgement;Follows commands 09/19/2025 8:05 AM Kelli Mariscal, LFEtteyaJshsu33/21/2025 8:05 AM Kelli Lora, RNSwallowAble to swallow solids and liquids without uynuydodfw29/21/2025 8:05 AM Kelli Mariscal RNR Hand GraspModerate 09/19/2025 8:05 AM Kelli Mariscal RNL Hand VmbkjFsmzosax67/21/2025 8:05 AM Kelli Mariscal RNR Foot NrtmaxkjrvdlLfgsozgf83/20/2025 7:50 PM Mian Gaspar RNL Foot DknxxgwhrogyClmmrsxo35/20/2025 7:50 PM Mian Aparicio RNR Foot Plantar VoevvxpYoaeebxj74/20/2025 7:50 PM Mian Aparicio, RN L Foot Plantar JnqxktmKbpjwzso50/20/2025 7:50 PM Mian Aparicio RNNeuro NjzcsgpwKzcagumuf34/21/2025 8:05 AM Kelli Mariscal RNHand Grasp/Motor Function/Sensation JkmzggqinvZuqwm31/21/2025 8:05 AM Kelli Mariscal RN * QuestionAnswerDate of AssessmentAuthorBilateral Breath SoundsDiminished 09/19/2025 8:05 AM Kelli Mariscal RNRespiratory XfgmuouCulsen79/21/2025 8:05 AM Kelli Mariscal RNChest AssessmentChest expansion symmetrical 09/19/2025 8:05 AM Kelli Mariscal RNCoughOccasional1 7:50 PM EDT Mian Lewis RNRespiratory UyzfrjCjqxdcepu37/21/2025 8:05 AM Kelli Mariscal RNRespiratory Depth/OxdmbzPomgqpo57/21/2025 8:05 AM Kelli Mariscal RNDyspnea OccurrenceWith iuxqrhja50/21/2025 8:05 AM Kelli Mariscal RN * QuestionAnswerDate of AssessmentAuthorCardiac RhythmV-Paced09/19/2025 8:05 AM Kelli Mariscal RNCardiac PgcndfrrhuAtofcfo72/21/2025 8:05 AM Kelli Mariscal RNTelemetry Monitor VfkborCv73/21/2025 8:05 AM Kelli Mariscal RN Telemetry Box Numberw [id number] 8:05 AM Kelli Mariscal RNCardiac KnajkelbHjaa05/21/2025 8:05 AM Kelli Mariscal RNHeart SoundsMurmur 09/19/2025 8:05 AM Kelli Mariscal RN * QuestionAnswerDate of AssessmentAuthorPacemaker AfagXaegwtblt97/21/2025 8:05 AM Kelli Mariscal RN * GastrointestinalQuestionAnswerDate of AssessmentAuthorGastrointestinal (WDL) WDL1 8:05 AM Kelli Mariscal RNBowel ZmahsfznujtnMz29/21/2025 8:05 AM Kelli Mariscal RN * Peripheral VascularQuestionAnswerDate of AssessmentAuthorPeripheral Vascular (WDL)X1 8:05 AM EDTWebster, Kelli, RNCapillary RefillLess than/equal to 2 seconds (All extremities)09/19/2025 8:05 AM Kelli Mariscal, RNPulses Right radial;Left radial;Right pedal;Left pedal1 8:05 AM Kelli Mariscal TBCbeinqewNnyv75/21/2025 8:05 AM Kelli Mariscal RNEdemaRight lower extremity;Left lower efdflxezk37/21/2025 8:05 AM Kelli Mariscal RN * RUE Neurovascular AssessmentQuestionAnswerDate of AssessmentAuthorRight Radial Pulse+ 8:05 AM Kelli Mariscal RN * LUMarino Neurovascular AssessmentQuestionAnswerDate of AssessmentAuthorLUE Capillary RefillLess than/equal to 2 xmgzjun1309/19/2025 7:15 PM Mian Aparicio RNLUE ColorAppropriate for ilzesrtsl98/21/2025 7:15 PM Mian Aparicio RNLUE Temperature/MoistureWarm;Dry09/19/2025 7:15 PM Mian Aparicio RNLeft Radial Pulse+ 7:15 PM Mian Aparicio RN * RLE Neurovascular AssessmentQuestionAnswerDate of AssessmentAuthorRLE Edema Non-yjzzaxf5509/19/2025 8:05 AM Kelli Mariscal RNRLE Capillary RefillLess than/equal to 2 qifvysm6509/19/2025 8:05 AM Kelli Mariscal RNRLE Color Appropriate for kgdmixfhf65/21/2025 8:05 AM Kelli Mariscal RNRLE Temperature/MoistureWarm;Dry09/19/2025 8:05 AM Kelli Mariscal RNRight Posterior Tibial Pulse+ 8:05 AM Kelli Mariscal RNRight Pedal Pulse+ 8:05 AM Kelli Mariscal RN * LLE Neurovascular AssessmentQuestionAnswerDate of AssessmentAuthorLLE Edema Non-tsouhdq9609/19/2025 8:05 AM Kelli Mariscal RNLLE Capillary RefillLess than/equal to 2 iujxzxp1709/19/2025 8:05 AM Kelli Mariscal RNLLE Color Appropriate for uhiblgpmt02/21/2025 8:05 AM Kelli Mariscal RNLLE Temperature/MoistureWarm;Dry09/19/2025 8:05 AM Kelli Mariscal RNLeft Posterior Tibial Pulse+110 8:05 AM Kelli Mariscal RNLeft Pedal Pulse+210 8:05 AM Kelli Mariscal RN * MusculoskeletalQuestionAnswerDate of AssessmentAuthorRUEFull movement 09/19/2025 8:05 AM Kelli Mariscal RNRLEWeakness09/19/2025 8:05 AM Kelli Lora RNLUEFull abkskkil97/21/2025 8:05 AM Kelli Mariscal RN QKSLpxxowtg01/21/2025 8:05 AM Kelli Mariscal RNMusculoskeletal (WDL)X 09/19/2025 8:05 AM Kelli Mariscal RN * PsychosocialQuestionAnswerDate of AssessmentAuthorPsychosocial (WDL)WDL 09/19/2025 8:05 AM Kelli Mariscal RN * Ben Fall RiskQuestionAnswerDate of AssessmentAuthorHistory of Falling, Immediate or Within 3 Sxbsvy059 8:00 AM Kelli Mariscal RN Secondary Owptxxymy8779/21/2025 8:00 AM Kelli Mariscal, RNAmbulatory Aid15 09/19/2025 8:00 AM Kelli Mariscal RNIntravenous Therapy/Heparin Lock20 09/19/2025 8:00 AM Kelli Mariscal RNGait/Haekwvrctoic6965/21/2025 8:00 AM Kelli Mariscal RNMental Hdlokf976/21/2025 8:00 AM Kelli Mariscal RN Contreras Fall Risk Keglp997909/19/2025 8:00 AM Kelli Mariscal RN * Lorenzo ScaleQuestionAnswerDate of AssessmentAuthorBraden No Risk Interventions Continue to assess patient according to level of care09/19/2025 8:05 AM Kelli Lora, RNSensory Cgqaqeiwido838/21/2025 8:05 AM Kelli Mariscal JDItryowit262/21/2025 8:05 AM Kelli Mariscal, GRMcetchrc036/21/2025 8:05 AM Kelli Mariscal, LYTbqusnuk516/21/2025 8:05 AM Kelli Mariscal, RN Yewekogxj526/21/2025 8:05 AM Kelli Mariscal, RNFriction and Shear3 09/19/2025 8:05 AM Kelli Mariscal RNBraden Scale Lzumt243509/19/2025 8:05 AM Kelli Mariscal RN * Charting TypeQuestionAnswerDate of AssessmentAuthorCharting TypeShift wgygrvyzll93/21/2025 8:05 AM Kelli Mariscal RN * CognitionQuestionAnswerDate of AssessmentAuthorDeficitsFully aware of deficits 09/19/2025 2:02 PM Chhaya Clarke OTOVAmezujnnuxltkApwtwz62/21/2025 2:02 PM Chhaya Clarke, OTOrientation LevelOriented X41 2:02 PM EDT Chhaya Rascon OTOverall Cognitive RxfaudWWD99/21/2025 1:08 PM EDTFaehnleTracy, PTArousal/AlertnessAppropriate responses to pkelwdb5009/19/2025 2:02 PM Chhaya Clarke, OTAttention SpanAppears uhyydy1109/19/2025 2:02 PM SYMONET Chhaya Rascon, OTMemoryAppears ieiabm2409/19/2025 2:02 PM Chhaya Clarke OT Following CommandsFollows all commands and directions without difficulty 09/19/2025 2:02 PM Chhaya Clarke OTSafety JudgmentDecreased awareness of need for autegjreav37/21/2025 2:02 PM Chhaya Clarke OTAwareness of Errors Assistance required to identify errors made;Assistance required to correct errors made09/19/2025 2:02 PM Chhaya Clarke OTProblem SolvingAble to problem solve /21/2025 2:02 PM Chhaya Clarke OTCognition CommentsPatient was joking and pleasant and cooperative.09/19/2025 2:02 PM EDT Chhaya Rascon, OT * SensationQuestionAnswerDate of AssessmentAuthorLight TouchPartial deficits in the RUE1 3:40 PM Chhaya Clarke OT * PerceptionQuestionAnswerDate of AssessmentAuthorInattention/NeglectAppears ckihtb4709/19/2025 3:40 PM Chhaya Clarke, OTInitiationAppears intact 09/19/2025 3:40 PM Chhaya Clarke, OTMotor PlanningAppears ulktax5809/19/2025 3:40 PM Chhaya Clarke, OTPerseverationNot yynytxs0909/19/2025 3:40 PM EDT Chhaya Rascon, OT * Vision - Basic AssessmentQuestionAnswerDate of AssessmentAuthorCurrent Vision Wears glasses all the time09/19/2025 3:39 PM Chhaya Clarke, OT * Values/BeliefsQuestionAnswerDate of AssessmentAuthorCultural Requests During Imoqnatwqwstzmbjlxi27/19/2025 2:42 AM Margie Bledsoe RNSpiritual Requests During Kjdljcqnrsujikgpjmb71/19/2025 2:42 AM Margie Bledsoe RN * GenitourinaryQuestionAnswerDate of AssessmentAuthorGenitourinary (WDL)WDL 09/19/2025 8:05 AM Kelli Mariscal, MARYAN * Patient MonitoringQuestionAnswerDate of AssessmentAuthorFrequency of Checks Twice per hour, jhxxyunu58/21/2025 8:00 AM EDTWebster, Kelli, RN * Prior FunctionQuestionAnswerDate of AssessmentAuthorMeal SlpfUcqwy57/21/2025 3:33 PM Chhaya Clarke, IHZobwlcxhuGfglscdqdka93/21/2025 3:33 PM EDT Chhaya Rascon, OTPrior Functional MobilityIndependent with cgfbmzoy40/21/2025 3:33 PM Chhaya Clarke, GILALevel of IndependenceNeeds assistance with ADLs;Needs assistance with lmmrlmaost97/21/2025 3:33 PM Chhaya Clarke, OT [facility]Home gbzesb5809/19/2025 3:33 PM Chhaya Clarke, OT WycbwlgbmjUyrglgk02/21/2025 3:33 PM Chhaya Clarke, GILALeisurePatient enjoys going for car drives and looking at the farm land, mowing the lawn, and going to visit his grandchildren.09/19/2025 3:33 PM Chhaya Clarke, OTADL AssistanceNeeds otzjgiboiy64/21/2025 3:33 PM Chhaya Clarke, OTBath Fokteuiyumd36/21/2025 3:33 PM Chhaya Clarke, OTMzdytfmbSafprnj75/21/2025 3:33 PM Chhaya Clarke, PIKmmzssabEgwgyzvzmvt43/21/2025 3:33 PM EDT Chhaya Rascon, AZAgguczpMelrmlhzeav85/21/2025 3:33 PM Chhaya Clarke, OT Homemaking AssistanceNeeds ytfahbyvbh42/21/2025 3:33 PM Chhaya Clarke, OT FfupkvfTjcyd17/21/2025 3:33 PM Chhaya Clarke, NHRvwdwaofaKioou12/21/2025 3:33 PM Chhaya Clarke, KNVeknkowpEvvcy87/21/2025 3:33 PM Chhaya Clarke, IZUqjaktswsDpeqo68/21/2025 3:33 PM Chhaya Clarke, OTDriving Fjfohmusuxc68/21/2025 3:33 PM Chhaya Clarke, OTPrior Function CommentsAide goes with pt or drives pt to appointments and takes care of meds, cooking, cleaning. Dtr reports pt still fakuvf9909/18/2025 3:07 PM Ricarda Proctor, PT * ADLQuestionAnswerDate of AssessmentAuthorGrooming AssistanceStand by09/19/2025 3:44 PM Chhaya Clarke, GILAGrooming DeficitSetup;Supervision/safety 09/19/2025 3:44 PM Chhaya Clarke OTLE Dressing YbazqdwmusEczjz44/21/2025 3:44 PM Chhaya Clarke OTLE Dressing DeficitDon/doff L sock;Don/doff R sock09/19/2025 3:44 PM Chhaya Clarke, Jackie Assistance with Device Stand by09/19/2025 3:44 PM Chhaya Clarke, OTToileting DeficitSetup 09/19/2025 3:44 PM Chhaya Clarke, OT * Activity ToleranceQuestionAnswerDate of AssessmentAuthorStage II (METs 1.4- 2.0) - Sitting5-10 mins09/19/2025 3:40 PM Chhaya Clarke, OTEnduranceStage II09/19/2025 3:40 PM Chhaya Clarke, OTActivity Tolerance CommentsPatient sat on edge for ADL tasks and stood briefly at side of bed. Patient did not demonstrate signs of SOB. Patient's O2 saturatio rate stayed above 92% on room air.09/19/2025 3:40 PM Chhaya Clarke, OT * RUE AssessmentQuestionAnswerDate of AssessmentAuthorRUE MuxikrdqivL85/21/2025 3:41 PM Chhaya Clarke, OT * LUE AssessmentQuestionAnswerDate of AssessmentAuthorLUE WuimutffefD70/21/2025 3:41 PM Chhaya Clarke OT * PrecautionsQuestionAnswerDate of AssessmentAuthorMedical Precautionsfall risk;nqkknfopz01/21/2025 2:02 PM Chhaya Clarke, OT * PlanQuestionAnswerDate of AssessmentAuthorPT PlanSkilled PT09/19/2025 1:25 PM Tracy Jones PTTreatment/InterventionsFunctional transfer training;LE strengthening/ROM;Gait training;Bed mobility;Balance training;Equipment eval/education;Endurance wxutcvxs54/21/2025 1:25 PM Tracy Jones PTPT Frequency5 times per week09/19/2025 1:25 PM Tracy Jones, PTPT - Discharge Recommendations NkjmyuAhu08/21/2025 1:25 PM Tracy Jones PTPT Discharge RecommendationsPatient is able to return to prior living lgyyocxwegx06/21/2025 1:25 PM Tracy Jones, PT * Hand FunctionQuestionAnswerDate of AssessmentAuthorGross GraspFunctional 09/19/2025 3:41 PM Chhaya Clarke, NDVkzhnuloifdnOkcptuxqwz00/21/2025 3:41 PM Chhaya Clarke, OT * PlanQuestionAnswerDate of AssessmentAuthorLevel of assist1 zpzxii5809/19/2025 3:51 PM Chhaya Clarke OTEquipment Yzuasvoyovqhfmn59/21/2025 3:51 PM EDChhaya Nazario OTTcarmen InterventionsADL retraining;Patient/family training;Equipment evaluation/education;Functional transfer training;N euromuscular reeducation;Endurance training;Compensatory technique education 09/19/2025 3:51 PM Chhaya Clarke OTOT Frequency5 times per week09/19/2025 3:51 PM Chhaya Clarke OTOT - Discharge Recommendations PlacedYes 09/19/2025 3:51 PM Chhaya Clarke OTOT PlanSkilled OT09/19/2025 3:51 PM Chhaya Clarke OTOT Discharge RecommendationsPatient is able to return to prior living nscenycaola65/21/2025 3:51 PM Chhaya Clarke, OT * Safe EnvironmentQuestionAnswerDate of AssessmentAuthorArm Bands OnID;Fall 09/19/2025 8:00 AM Kelli Mariscal RNSide Rails/Bed Safety2/ 8:00 AM Kelli Mariscal RNBed JmdfgjLo64/21/2025 8:00 AM Kelli Mariscal RNThe Patient's Environment is PhtaBmf05/21/2025 8:00 AM Kelli Mariscal RN * MobilityQuestionAnswerDate of AssessmentAuthorRestingOther (Comment)09/19/2025 4:00 PM Kelli Mariscal RNActivity PerformedOther (Comment)09/19/2025 4:00 PM Kelli Mariscal RNRepositionedOther (Comment)09/19/2025 4:00 PM Kelli Lora RNLevel of AssistanceModerate assist, patient does 50-74% 09/18/2025 8:00 AM Kelli Mairscal RNHead of Bed ElevatedSelf regulated 09/19/2025 2:00 PM Kelli Mariscal RNHeels/FeetFoot of bed elevated;Heels elevated off bed09/19/2025 8:00 AM Kelli Mariscal RNRange of Motion Active;All /21/2025 8:00 AM Kelli Mariscal, CHANDLERnti-Embolism DevicesBilateral;Sequential compression devices, below knee09/19/2025 8:00 AM Kelli Mariscal, CHANDLERnti-Embolism KvrrmhwpjktjDqr09/21/2025 8:00 AM Kelli Lora RNPatient's mobility zoneZone 8:00 AM Kelli Mariscal RNPositioning FrequencyAble to turn self09/19/2025 2:00 PM Kelli Mariscal RN * HygieneQuestionAnswerDate of AssessmentAuthorSkin CareMoisture barrier 09/19/2025 8:00 AM Kelli Mariscal RNHygienePeri care;Per self09/19/2025 12:00 PM Kelli Mariscal RNOral CarePer self09/19/2025 8:00 AM Kelli Mariscal RNLevel of AssistanceModerate edxbjy7009/19/2025 8:00 AM Kelli Mariscal RNIs Patient Total Care?No09/19/2025 8:00 AM Kelli Mariscal RN Incontinence Protective DevicesAbsorbent pad09/19/2025 8:00 AM Kelli Mariscal RN * PrecautionsQuestionAnswerDate of AssessmentAuthorPrecautions Aspiration;Bleeding;Fall09/19/2025 8:00 AM Kelli Mariscal, MARYAN * Comfort and Environment InterventionsQuestionAnswerDate of AssessmentAuthor ComfortOther (Comment)09/19/2025 4:00 PM Kelli Mariscal RNAdditional Comfort/Environmental InterventionsTAPS;Extremity fvawiqim07/21/2025 8:00 AM Kelli Mariscal RN * ADL ScreeningQuestionAnswerDate of AssessmentAuthorDo you snore or wake up gasping for air?No09/17/2025 2:54 AM Margie Bledsoe RNCan you bring in your CPAP/BiPAP from home?N/A1 2:54 AM Margie Bledsoe RN Patient's Vision Adequate to Safely Complete Daily EzpcgkqgpeMia55/19/2025 2:54 AM Margie Bledsoe RNPatient's Judgment Adequate to Safely Complete Daily UwqlmwbkgyZky51/19/2025 2:54 AM Margie Bledsoe RNPatient's Memory Adequate to Safely Complete Daily WijtudemepKjs69/19/2025 2:54 AM Margie Olivarez RNPatient Able to Express Needs/YjxyxaaBkv81/19/2025 2:54 AM Margie Bledsoe RNDressingIndependent09/17/2025 2:54 AM Margie Olivarez RNGroomingIndependent09/17/2025 2:54 AM Margie Bledsoe IPLyhmlonQcistfbirel87/19/2025 2:54 AM Margie Bledsoe RNBathing Cuyufmsyohr37/19/2025 2:54 AM Margie Bledsoe RNToiletingIndependent 09/17/2025 2:54 AM Margie Bledsoe RNIn/Out HunXghytntsdtf27/19/2025 2:54 AM Margie Bledsoe RNWalks in BzqnZsuiunbgfkk69/19/2025 2:54 AM Margie Olivarez RNWemaxwellness of ZxgxDjcs14/19/2025 2:54 AM Margie Bledsoe RNWeakness of Arms/UxffiWpxq38/19/2025 2:54 AM Margie Bledsoe RN Hearing - Right EarDifficulty with noise09/17/2025 [...] of AssessmentAuthorAcuityAble to read normal print without ayoloynbkh59/21/2025 3:39 PM Chhaya Clarke, OT * Therapy ConsultsQuestionAnswerDate of AssessmentAuthorPT Evaluation Needed1 09/17/2025 2:54 AM Margie Bledsoe RNOT Evaluation Emcdyb211 2:54 AM Margie Bledsoe RNSLP Evaluation Sabyni905 2:54 AM Margie Olviarez RN * Assistive DevicesQuestionAnswerDate of AssessmentAuthorAssistive Devices Dentures upper;Walker;Ylbgvehcqz47/19/2025 2:54 AM Margie Bledsoe RN * AM-PAC 6 ClicksQuestionAnswerDate of AssessmentAuthorTotal Score OT AMPAC19 09/19/2025 2:02 PM EDTMelville, Chhaya, OTToileting, which includes using the toilet,bedpan,or urinal? 2:02 PM Chhaya Clarke, OTEating meals? 2:02 PM Chhaya Clarke, OTBathing(Including washing,rinsing,drying)? 2:02 PM Chhaya Clarke, OTTaking care of personal grooming such as brushing teeth? 2:02 PM Chhaya Clarke, OTPutting on and taking off regular lower body clothing? 2:02 PM Chhaya Clarke, OTPutting on and taking off regular upper body clothing? 2:02 PM Chhaya Clarke, OT * [place] Fall Risk InterventionsQuestionAnswerDate of AssessmentAuthor [place] Fall Risk SvocveoyphaijTeripeog02/21/2025 8:00 AM Kelli Mariscal RN * OT Last VisitQuestionAnswerDate of AssessmentAuthorOT Received [id number] 09/19/2025 3:32 PM Chhaya Clarke, OT * PT AssessmentQuestionAnswerDate of AssessmentAuthorPT AssessmentPt demo's good tolerance of session except moderate GROSS after standing with RW. SpO2 maintained on RA. Pt is a fall risk and will benefit from skilled PT intervention to maximize safety prior to discharge.09/18/2025 3:21 PM SYMONET Ricarda Grigsby PTPT Education/KngkmjhxQkkalvqr47/21/2025 1:24 PM Tracy Jones, SCBoerxnxkoGqup80/21/2025 1:24 PM Tracy Jones, PTImpairments Decreased endurance;Impaired balance;Decreased mobility;Dizziness;Decreased safety awareness;Decreased skin rpmevjtdh92/20/2025 3:21 PM Ricarda Proctor, PTBarriers to MdtacxvsxWnajpjqlefjdu68/21/2025 1:24 PM Tracy Jones, PT Medical Staff Made FsxstXrv01/21/2025 1:24 PM Tracy Jones, PT Evaluation/Treatment TolerancePatient tolerated treatment well09/19/2025 1:24 PM Tracy Jones, PTPT Assessment/ESTIMATION MANAGER Summarypt able to demonstrate ambulation today in household level distance. Weakness noted in sit to stands fromlow surface. Cont per POC.09/19/2025 1:24 PM Tracy Jones, PT * Static Standing BalanceQuestionAnswerDate of AssessmentAuthorStatic Standing- Balance SupportWith euagkm3309/19/2025 3:43 PM Chhaya Clarke OTStatic Standing-Level of AssistanceClose qwvmssomubh97/21/2025 3:43 PM Chhaya Clarke OTStatic Standing-Comment/Number of LiltghtZJ25/21/2025 3:43 PM EDT Chhaya Rascon OT * Dynamic Standing BalanceQuestionAnswerDate of AssessmentAuthorDynamic Standing Balance-Level of AssistanceClose hrsgadsqdit45/21/2025 3:43 PM Chhaya Clarke OTDynamdroeen Standing-PusnwzwzUS20/21/2025 3:43 PM Chhaya Clarke OT Dynamic Standing-Balance SupportWith fofgvo1309/19/2025 3:43 PM Chhaya Clarke OTDynamdoreen Standing-BalanceForward lean;Lateral lean09/19/2025 3:43 PM Chhaya Clarke OT * Dynamic Sitting BalanceQuestionAnswerDate of AssessmentAuthorDynamic Sitting Balance-Level of AssistanceDistant wfgdcpoplbi66/21/2025 3:43 PM Chhaya Clarke OTDynamic Sitting-YwpfvklyXCZ73/21/2025 3:43 PM Chhaya Clarke OT Dynamic Sitting-Balance SupportFeet hduaqamkz64/21/2025 3:43 PM Chhaya Clarke OTDynamic Sitting-BalanceForward lean;Reaching for zjggswy1509/19/2025 3:43 PM Chhaya Clarke OT * AmbulationQuestionAnswerDate of MdcmozhmjjEzgejoKubxolgopcDgt09/20/2025 3:20 PM Ricarda Proctor, PT * StairsQuestionAnswerDate of RyaiktwrpuInlunbAonbsbNw71/21/2025 1:23 PM EDT Tracy Ellison, PT * CoordinationQuestionAnswerDate of AssessmentAuthorMovements are Fluid and CgvddzeuvoaAds74/21/2025 3:40 PM Chhaya Clarke OT * Postural ControlQuestionAnswerDate of AssessmentAuthorPosture AssessmentPt demo's rounded shldrs and few head posture while sitting and standing with RW 09/18/2025 3:14 PM Ricarda Proctor, PTPostural ControlDeficits on evaluation 09/18/2025 3:14 PM Ricarda Proctor, PT * GeneralQuestionAnswerDate of AssessmentAuthorSubjectivePatient stated he first needed to use urinal. Patient then participated in OT evaluation and was fri endly, joking, and offering candy to staff who entered the room. The patient's caregiver was present. The patient stated he thought he was functioning at baseline ADL level. At end of session, staff came to take patient to director of cath lab. 09/19/2025 1:35 PM Chhaya Clarke OTOT DiagnosisDecreased ADL Activity Tolerance secondary to NNTILC5909/19/2025 1:35 PM Chhaya Clarke OTPatient SummaryPatient is an 89 year old male who presented from [facility] with shortness of breath and wasdiagnosed with a NSTEMI. Patient is scheduled for a cardiac cath later today.09/19/2025 1:35 PM Chhaya Clarke OT * Surface 1AnswerDate of AssessmentAuthorLevel tile1 3:20 PM EDT Ricarda Grigsby, PT * Device 1AnswerDate of AssessmentAuthorRolling lqqdmk0409/19/2025 1:22 PM EDT Tracy Ellison, PT * Assistance 1AnswerDate of AssessmentAuthorMinimum mixypmtfpx07/21/2025 1:22 PM Tracy Jones, PT * Quality of Gait 1AnswerDate of AssessmentAuthorpt amb in love with flexed trunk, wider ANASTACIO, lateral wt shifts, forward head.No dizziness or LOB noted. 09/19/2025 1:22 PM Tracy Jones, PT * Comments/Distance (ft) 1AnswerDate of MxonzwdajxLbrwzs00 ft x109/19/2025 1:22 PM Tracy Jones, PT * GeneralQuestionAnswerDate of AssessmentAuthorSubjectivePt agreeable for PT treatment, returned to bed after toileting and walkin hallway, call light in reach, RN aware. Pt caregiver present for part of session.Pt awaiting heart cath later today.09/19/2025 1:08 PM Tracy Jones, PTPT Diagnosisimpaired mobiltiy and decreased IND09/18/2025 3:02 PM Ricarda Proctor, PTPatient SummaryAlvin Knight is an 89 y.o. male who came from [facility] with SOB and dx with NSTEMI.09/18/2025 3:02 PM Ricarda Proctor, PT * Bed MobilityQuestionAnswerDate of AssessmentAuthorBed ItswpsmpCuf24/21/2025 3:45 PM Chhaya Clarke OT * Bed Mobility 1QuestionAnswerDate of AssessmentAuthorBed Mobility Comments 1 Patient needed some assist lifting his trunk up off the bed and guiding legs to side of bed. Patient needed CGA with legs to return to bed.09/19/2025 3:45 PM Chhaya Clarke OTBed Mobility From 9Xxzfkf4609/19/2025 3:45 PM SYMONET Chhaya Rascon OTBed Mobility Type 1To and from09/19/2025 3:45 PM SYMONET Chhaya Rascon OTBed Mobility to 1Short sit09/19/2025 3:45 PM Chhaya Clarke OTLevel of Assistance 1Moderate odnguitzhx83/21/2025 3:45 PM SYMONET Chhaya Rascon OT * TransfersQuestionAnswerDate of AssessmentAuthorAmbulation commentsPatient took 2 side steps to head of bed with close supervision.09/19/2025 3:46 PM EDT Chhaya Rascon GVHzizuzwlRvo66/21/2025 3:46 PM Chhaya Clarke OT * Transfer 1QuestionAnswerDate of AssessmentAuthorTransfer Device 1rolling loguub9409/19/2025 3:46 PM Chhaya Clarke OTTrigaviota/Comments 1mod assit for wt shift and lift from low toilet using lkfhwaf0109/19/2025 1:12 PM Tracy Jones PTTransfer From 1Bed;Sit09/19/2025 3:46 PM Chhaya Clarke OTTransfer Type 1To and from09/19/2025 3:46 PM Chhaya Clarke OTTransfer to 1Stand 09/19/2025 3:46 PM Chhaya Clarke OTTechnique 1Sit to stand;Stand to sit 09/19/2025 3:46 PM Chhaya Clarke OTTransfer Level of Assistance 1Contact guard09/19/2025 3:46 PM Chhaya Clarke, OT * Transfers 2QuestionAnswerDate of AssessmentAuthorTrials/Comments 2prt asking for bed height to be raised ~2 inches to simulate bed at home09/19/2025 1:12 PM Tracy Jones PTTransfer From 2Bed09/19/2025 1:12 PM Tracy Jones PTTransfer Type 2To09/19/2025 1:12 PM Tracy Jones PTTransfer to 2Stand 09/19/2025 1:12 PM Tracy Jones PTTechnique 2Stand to sit;Sit to stand 09/19/2025 1:12 PM Tracy Jones PTTransfer Level of Assistance 2Minimum ipauyhsqsn95/21/2025 1:12 PM Tracy Jones, PT * Static Sitting BalanceQuestionAnswerDate of AssessmentAuthorStatic Sitting- Balance SupportFeet ctzghotii00/21/2025 3:43 PM Chhaya Clarke OTStatic Sitting-Level of AssistanceDistant /21/2025 3:43 PM Chhaya Clarke OTStatic Sitting-Comment/Number of MinutesSitting edge of bed09/19/2025 3:43 PM Chhaya Clarke, OT * Home LivingQuestionAnswerDate of AssessmentAuthorHome AccessRamped entrance 09/19/2025 1:37 PM Chhaya Clarke OTType of FekgEkyad21/21/2025 1:37 PM Chhaya Clarke OTHome LayoutOne level09/19/2025 1:37 PM Chhaya Clarke OTBathroom Shower/TubWalk-in shower;Epkbyoh2809/19/2025 1:37 PM Chhaya Clarke, OTMichaelthrgray ToiletHandicapped xnyocg9909/19/2025 1:37 PM Chhaya Clarke OTBathroom EquipmentGrab bars in shower;Grab bars around adiqsh74 1:37 PM Chhaya Clarke OTBathroom Accessibilityrollator /21/2025 1:37 PM Chhaya Clarke OTHome Adaptive EquipmentRollator;Lift Chair;Wheelchair-manual;Emergency Alert;Other (Comment)09/19/2025 1:37 PM EDT Chhaya Rascon OTLives NozhNrdon78/21/2025 1:37 PM Chhaya Clarke OT * OT AssessmentQuestionAnswerDate of AssessmentAuthorOT Assessment/BIENVENIDO Summary Patient presents with decreased ADL activity tolerance and functional mobility. Patient stated he did not want to learn how to use AE like a sock aide because he has PHARMACIST to assist with ADLS/IADLS at home. Patient [...] of extended family/friends 09/19/2025 3:47 PM Chhaya Clarke, OTBarriers to DischargeComorbidities 09/19/2025 3:47 PM Chhaya Clarke, UIHoyvgakfcJgif26/21/2025 3:47 PM EDT Chhaya Rascon OTOT ImpairmentsDecreased ADL status;Decreased endurance;Decreased IADLs;Decreased upper extremity range of motion;Decreased functional /21/2025 3:47 PM Chhaya Clarke, OT Evaluation/Treatment TolerancePatient tolerated treatment well09/19/2025 3:47 PM Chhaya Clarke, OTMedical Staff Made XfgklYiy28/21/2025 3:47 PM EDT Chhaya Rascon, OT * PT Last VisitQuestionAnswerDate of AssessmentAuthorPT Received [id number] 09/19/2025 1:04 PM Tracy Jones, PT * Suicidal IdeationQuestionAnswerDate of AssessmentAuthor1. Wish to be (Lifetime)No09/17/2025 2:44 AM Margie Bledsoe RN2. Non-Specific Active Suicidal Thoughts (Lifetime)No09/17/2025 2:44 AM Margie Bledsoe RN * Nelson Coma ScaleQuestionAnswerDate of AssessmentAuthorBest Eye Response Xwpibtsutes15/21/2025 8:05 AM Kelli Mariscal RNBe Verbal Response Mvehyipq97/21/2025 8:05 AM Kelli Mariscal RNBe Motor ResponseFollows yvshhzkn65/21/2025 8:05 AM Kelli Mariscal RNGlasgow Coma Scale Score15 09/19/2025 8:05 AM Kelli Mariscal RN * Pain AssessmentQuestionAnswerDate of AssessmentAuthorPain Interventions Ztplxljs88/21/2025 8:05 AM Kelli Mariscal RNPatient's Stated Pain GoalNo pain09/19/2025 1:08 PM Tracy Jones PTPain AssessmentNo/denies pain 09/19/2025 6:15 PM Rebecca Castillo RN * NutritionQuestionAnswerDate of AssessmentAuthorDiet VotuCXE39/21/2025 8:00 AM Kelli Mariscal, RNFeedingAble to feed self09/19/2025 8:00 AM Kelli Mariscal, QYEezxavmeXgdi02/20/2025 7:50 PM Mian Aparicio RN * Respiratory InterventionsQuestionAnswerDate of AssessmentAuthorRespiratory Interventions PerformedCough and deep iojohws83/21/2025 8:05 AM Kelli Mariscal RN * Cough and Deep BreatheQuestionAnswerDate of AssessmentAuthorCough and Deep EclboqqPfo06/21/2025 8:05 AM Kelli Mariscal RN * Peripheral Vascular Additional AssessmentsAnswerDate of AssessmentAuthorLeft upper dkdofmage82/21/2025 7:15 PM Mian Aparicio RN * IntegumentaryQuestionAnswerDate of AssessmentAuthorSkin ColorAppropriate for race09/19/2025 8:05 AM Kelli Mariscal RNSkin Condition/TempWarm;Dry 09/19/2025 8:05 AM Kelli Mariscal RNSkin IntegrityOther (Comment) 09/19/2025 8:05 AM Kelli Mariscal RNSkin TurgorNon-kxrjlfr6409/19/2025 8:05 AM Kelli Mariscal RNIntegumentary (WDL)X1 8:05 AM Kelli Mariscal RN * QuestionAnswerDate of AssessmentAuthorWhich is your dominant hand?Right 09/17/2025 8:00 PM Viktoria Amor RN * QuestionAnswerDate of AssessmentAuthorUrine ColorUnable to rdjstk9409/19/2025 12:00 PM Kelli Mariscal RNUrine AppearanceUnable to wtmvuw4909/19/2025 12:00 PM Kelli Mariscal RNUrine OdorNo odor09/18/2025 11:45 AM Kelli Lora RNUrinary PzcqcgkybtppGf31/20/2025 11:45 AM Kelli Mariscal RN * QuestionAnswerDate of AssessmentAuthorLast BM Siev8241062/21/2025 12:00 PM Kelli Lora RNStool ColorUnable to qbhpzf4609/19/2025 12:00 PM Kelli Mariscal RNStool AppearanceLoose;Dxugqk93 12:00 PM Kelli Mariscal RN * Audit Alcohol ScreeningQuestionAnswerDate of AssessmentAuthorHow often do you have a drink containing alcohol? 2:42 AM Margie Bledsoe RN How many standard drinks containing alcohol do you have on a typical day?No 09/17/2025 2:42 AM Margie Bledsoe RNHow often do you have six or more drinks on one occasion? 2:42 AM Margie Bledsoe RNAudit-C Bhbbk121 2:42 AM Margie Bledsoe RN * QuestionAnswerDate of AssessmentAuthorPatient Goal for Treatmentdischarge 09/19/2025 10:00 AM Kelli Mariscal RN * Free from fall injuryAnswerDate of AssessmentAuthorAssess patient frequently for physical needs;Identify cognitive and physical deficits and behaviorsthat affect risk of falls;[place] fall precautions as indicated by assessment;Educate patient/family on patient safety, including physical limitations;Instruct patient to call for assistance with activity based on assessment;Modify environment to reduce risk of injury;Consider OT/PT consult to assist with strengthening/kxslywys34/20/2025 11:17 PM Mian Aparicio RN * Drug ScreeningQuestionAnswerDate of AssessmentAuthorHave you used any substances (canabis, cocaine, heroin, hallucinogens, inhalants, etc.) in the past12 months?No09/17/2025 2:42 AM Margie Bledsoe RNHave you used any prescription drugs other than prescribed in the past 12 months?No09/17/2025 2:42 AM Margie Bledsoe RN * Environment of Care ChecklistQuestionAnswerDate of AssessmentAuthorPersonal belongings secured?Yes09/17/2025 8:45 PM Viktoria Amor RNPatient dressed in hospital-provided attire only?Yes09/17/2025 8:45 PM Viktoria Amor RNPatient care equipment (cords, cables, call bells, lines, and drains) shortened, removed, or accounted for?Yes09/17/2025 8:45 PM EDT Viktoria Ying RNRoom secured by RN per shift?Yes09/17/2025 8:45 PM EDT Viktoria Ying, MARYAN * Therapeutic ActivityQuestionAnswerDate of AssessmentAuthorTherapeutic Activity 1bed sywyytqj72/21/2025 1:23 PM Tracy Jones, PTTherapeutic Activity 2 transfers with RW x2: bed , sourth45 1:23 PM Tracy Jones, PT Therapeutic Activity 3gait with RW09/19/2025 1:23 PM Tracy Jones PT Therapeutic Activity 4standing balance with RW09/19/2025 1:23 PM Tracy Jones, PT * Acute TriageQuestionAnswerDate of AssessmentAuthorTriage Ldxdugnr375/20/2025 3:28 PM Ricarda Proctor, PTTriage GroupMOVE;Cardiovascular and pulmonology 09/18/2025 3:28 PM Ricarda Proctor, PT * Modified AldreteQuestionAnswerDate of WyalyxjydzCvbvwyNrdrgvre389/21/2025 6:19 PM Rebecca Castillo RNRespiration 6:19 PM Rebecca Castillo RN Aybgnjcagug758/21/2025 6:19 PM Rebecca Castillo RNConsciousness 6:19 PM Rebecca Castillo RNOxygen Melxikjsmz114/21/2025 6:19 PM Rebecca Castillo RNModified Lola Jqqnx487 6:19 PM Rebecca Castillo RN * Modified Malnutrition Screening Tool (MST)QuestionAnswerDate of Assessment AuthorHave you recently lost weight without trying?Yes09/17/2025 2:43 AM Margie Olivarez RNUnplanned Weight loss over:110 2:43 AM Margie Olivarez RNWeight Loss Hjgts990 2:43 AM Margie Bledsoe RNHave you been eating poorly because of a decreased appetite?1 09/17/2025 2:43 AM Margie Bledsoe RNOn home tube feeding or TPN?0 09/17/2025 2:43 AM Margie Bledsoe RNMalnutrition Rtwyi349 2:43 AM Margie Bledsoe RNDoes patient have a stage 2-4 pressure ulcer?0 09/17/2025 2:43 AM Margie Bledsoe RN documented as of this encounter Mental Status * Hernadez Agitation Sedation ScaleQuestionAnswerEntry DateAuthorRichmond Agitation Sedation Scale (RASS)- 5:10 PM Jeremiah Berry RN * Alfonso Coma ScaleQuestionAnswerEntry DateAuthorBest Eye ResponseSpontaneous 09/19/2025 8:05 AM Kelli Mariscal RNBest Verbal ResponseOriented 09/19/2025 8:05 AM Kelli Mariscal RNBest Motor ResponseFollows commands 09/19/2025 8:05 AM Kelli Mariscal RNGlasgow Coma Scale Uustb6796/21/2025 8:05 AM Kelli Mariscal RN * Modified AldreteQuestionAnswerEntry QcoeRcbuyyPlvczfej648/21/2025 6:19 PM Rebecca Early RNRespiration21 6:19 PM Rebecca Castillo RN Tghtjelgdpx532/21/2025 6:19 PM Rebecca Castillo RNConsciousness21 6:19 PM Rebecca Castillo RNOxygen Leazfkihkf606/21/2025 6:19 PM Rebecca Castillo RNModified Lola Lguzw655 6:19 PM Rebecca Castillo RN documented in [...] therapy, and obesity. He was transferred from [facility] for higher level of care after being diagnosed with NSTEMI, with an initial troponin of >10,000. On arrival to [facility], he washemodynamically stable and pain-free. Initial troponin [...] Time Provider Department Center 09/28/2025 11:40 AM Kiley Hurley CNP [facility] Your medication list START taking these [...] Medications These medications were sent to [facility] - [place], [place] - [address], [facility] [address] aspirin 81 mg chewable tablet carvedilol 6.25 mg tablet clopidogrel 75 mg tablet Alvin Marshall has no known allergies. Disposition: Home or Self Care () Discharge Condition: Stable Code Status: Full Code Diagnostic Results Hematology: Results from last 7 days Lab Units 09/20/25 0610 09/19/25 0609/18/25 0433 WBC AUTO 10*3/uL 8.09 -- 8.30 [...] 38 minutes. Signed Mary De Anda MD [facility] 09/20/2025 3:05 PM CC: MD Tk documented [...] Care Team: -Resume home INR draws at [facility] 09/18/[address] Campbell Follow [...] sources to prevent fluid overload. -Call the [facility] ([phone]) for a weight gain of 2 pounds in 1 day, or 5 pounds in 1 week, increased leg swelling, shortness of breath, or shortness of breath at night, and having to sleep sitting up taller/more pillows than normal or in recliner. Code Status: -Full Code * Attachments The following attachments cannot be sent through Care Everywhere. * Heart Attack Aauo-kn-Beyc (Russian) * Fall Prevention in the Home Adult Unxl-na-Tzju (Russian) documented in this encounter Medications at Time of Discharge MedicationSigDispense QuantityRefillsLast FilledStart DateEnd Date aspirin 81 mg chewable tablet Indications:NSTEMI (non-ST elevated myocardial infarction) (CMS/HCC)Chew 1 tablet (81 mg) with breakfast for 96 doses. 7 tablet / atorvastatin (Lipitor) 40 mg tablet 1 (one) [...] this encounter Progress Notes * Paula Renee, ESTIMATION MANAGER - 09/20/2025 1:31 PM EDT Physical Therapy Physical Therapy Treatment Patient Name: Rolando Knight : 1935 Today's Date: 09/20/2025 Problem List[1] [...] made Communication Intact General Assessment Hearing Mild [place] Skin Integrity Patient had mediplex padding on [...] at end of session. PT Assessment PT Assessment/ESTIMATION MANAGER Summary Pt demos difficulties with STS transitions, [...] Dizziness and giddiness DVT (deep venous thrombosis) ([facility]/HCC) History of cardiovascular disorder Chronic disease of cardiovascular system Encounter for long-term (current) use of insulin (CMS/[facility]) Hyperlipidemia Mitral valve disorder Morbid obesity with BMI of 40.0-44.9, adult ([facility]) Osteoarthritis of right hip Pulmonary embolism ([facility]) Right knee DJD CAD S/P percutaneous coronary angioplasty Implantable cardioverter-defibrillator (ICD) in situ NSTEMI (non-ST elevated myocardial infarction) ([facility]) SAULO (obstructive sleep apnea) 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) ([facility]) Class 1 obesity due to excess calories with serious comorbidity and body mass index (BMI) of 34.0 to 34.9 in adult COPD without exacerbation ([facility]) Cosigned by Benjie Dumont, PT at 09/20/2025 [...] any chest pain or dyspnea. Subjective: Rolando Knight is a 89 y.o. male with a [...] Patient diagnosed with NSTEMI and transferred to [facility] for further management. Initial labs: K3.4, Mg [...] -- 60 14 100 % -- 09/19/25 193 125/73 -- -- 71 20 100 % -- 09/19/25 192 130/76 37 ??C (98.6 ??F) Temporal 67 [...] 172 QT Interval 518 QTC CALCULATION(BAZETT) 518 R-[place] 266 T Wave [place] 81 Impression Atrial fibrillation Ventricular-paced rhythm Biventricular pacemaker detected Abnormal ECG When compared with ECG of 17-SEP-2025 09:35, No significant change was found Confirmed by Salo Campbell ([id number]) on 09/19/2025 7:59:33 PM No results found for: CKTOTAL , CKMB , CKMBINDEX , TROPONINI Complete Echo (TTE) w/wo Imaging Agent, Strain, 3D, Bubble Study Result Date: 09/18/2025 1 1 [facility] Heart Station [address] [address] [phone] (fax) Echocardiogram-[facility] Name: ALVIN KNIGHT Study Date: 09/18/2025 10:20 AM B/P: 136 mmHg/90 mmHg HR: 123 bpm Date of : 1935 Location: [facility] Height: 68 in. Age: 89 year(s) Patient [...] pericardial effusion. Procedure S taff Reading Group: [facility] Negative Developer: Shawn Masterson RDCS Ordering Physician: LUNA OCHOA Wall Motion Scores -1 - hyperkinesia, 0 [...] PHYSICIAN: Salo Campbell MD . Indications: Alvin Knight is a 89 y.o. male with history [...] informed consent. he was brought to the director of cath lab in a fasting state. The right neck area was prepped and draped in usual fashion. Micropuncture technique was used for access under ultrasound guidance into the right internal jugular vein. A 6-Finnish x 11 cm sheath was placed. The left wrist area was prepped and draped in usual fashion. Micropuncture technique was used for access in the radial artery. A 6-Finnish x 11 cm sheath was placed. Verapamil was given through the sheath, and heparin was administered intravenously. A 6-Finnish Jackson catheter was used for right heart catheterization and measurement of pressures and calculation of cardiac output using the estimated Deanna method. Jackson catheter was removed. Bilateral selective coronary angiography was then performed using 6-Finnish JL4 diagnostic catheter for engagement of the left coronary artery and 6-Finnish JR4 diagnostic catheter for engagement of the right coronary artery. Catheters were removed. Heparin was administered intravenously and therapeutic ACT was confirmed during the rest of the procedure. A 6-Finnish XB 3.5 guiding catheter was advanced and used to engage the left coronary ostium. Baseline MARTINA flow was 3. A [employer] coronary guide wire was advanced to the distal left anterior descending coronary artery. A A8 Digital Musictar OCT catheter was advanced and used to [...] greater than 10,000 at [facility], 4674 at [facility]. BNP 1209. 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 Every effort was made to ensure accuracy. However, inadvertent computerized estimator paperboard boxes errors may be present. Thomas Morrison MD PGY-2 Internal Medicine Cardiology Consult Service [facility] [1] Current Facility-Administered Medications: acetaminophen (Tylenol) tablet [...] Anda MD, Last Rate: 100 mL/hr at 09/20/25916, 1 g at 09/20/25916 montelukast (Singulair) tablet 10 mg, 10 mg, oral, Daily, Bette Vargas DO, 10 mg at 09/20/25915 pantoprazole (ProtoNix) EC tablet 40 mg, 40 mg, oral, Daily, Bette Vargas DO, 40 mg at 09/20/25 06 sennosides-docusate sodium (Christina-Colace) 8.6-50 mg per tablet 1 tablet, 1 tablet, oral, BID PRN, Perri Boland MD Insert peripheral IV, , , Once AND Saline lock IV, , , Once AND sodium chloride flush 10 mL, 10 mL, intravenous, q8h PRN, Perri Boland MD sucralfate (Carafate) tablet 1 g, 1 g, oral, BID AC, Carlton Angulo MD, 1 g at 09/20/25606 Cosigned by Volodymyr Knott MD at 09/20/2025 [...] additional personal documentation from me. * Chhaya Rascon, OT - 09/19/2025 3:57 PM EDT Occupational Therapy Occupational Therapy Evaluation Patient Name: Rolando Knight : 1935 Today's Date: 09/19/2025 Start Time: [...] session, staff came to take patient to director of cath lab. Patient Summary: Patient is an 89 year old male who presented from [facility] with shortness of breath and was diagnosed [...] cooperative. General Assessment General Assessment Hearing: Mild [place] Skin Integrity: Patient had mediplex padding on [...] Level of Function Prior Function Level of [place]: Needs assistance with ADLs, Needs assistance with homemaking Prior Functional Mobility: Independent with rollator Receives Help From: Family, Home health (PHARMACIST: 3 hrs/day- 5 days a week, 2 hrs/day-2 days a week, Children check in AM and PM before and after work) ADL Assistance: Needs assistance Bath: Independent Toileting: Independent Dressing: Minimal (Needs assist putting socks on. Wears velcro strap adapted shoes.) Grooming: Independent Feeding: Independent Homemaking Assistance: Needs assistance (Patient 's PHARMACIST performs most of the homemaking tasks. Family or PHARMACIST take patient to appointments or to families house.) Meal Prep: Total Laundry: Total Vacuuming: Total Cleaning: Total Gardening: Total Yard Work: (Patient mows the lawn on his riding hospital cna.) Driving: Independent (Patient walks up to car [...] Eating meals?: None (Independent) Total Score OT [facility]: 19 Assessment/Plan OT Assessment OT Impairments: Decreased ADL status, Decreased endurance, Decreased IADLs, Decreased upper extremity range of motion, Decreased functional mobility OT Assessment/REFERRAL NURSE Summary: Patient presents with decreased ADL activity tolerance and functional mobility. Patient stated he did not want to learn how to use AE like a sock aide because he has PHARMACIST toassist with ADLS/IADLS at home. Patient was [...] Encounter for long-term (current) use of insulin ([facility]) Hyperlipidemia Mitral valve disorder Morbid obesity with BMI of 40.0-44.9, adult ([facility]) Osteoarthritis of right hip Pulmonary embolism ([facility]) Right knee DJD CAD S/P percutaneous coronary angioplasty Implantable cardioverter-defibrillator (ICD) in situ NSTEMI (non-ST elevated myocardial infarction) ([facility]) SAULO (obstructive sleep apnea) 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) ([facility]) Class 1 obesity due to excess calories with serious comorbidity and body mass index (BMI) of 34.0 to 34.9 in adult COPD without exacerbation ([facility]) [2] Past Medical History: Diagnosis Date Atrial fibrillation ([facility]) CHF (congestive heart failure) ([facility]) Coronary artery disease Heart valve disease Hyperlipidemia Hypertension [3] Past Surgical History: Procedure Laterality Date INSERT / REPLACE / REMOVE PACEMAKER * Tracy Ellison, PT - 09/19/2025 1:30 PM EDT Physical Therapy Physical Therapy Treatment Patient Name: Rolando Knight : 1935 Today's Date: 09/19/2025 Problem List[1] [...] prepare for discharge. 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 Dizziness and giddiness DVT (deep venous thrombosis) ([facility]) History of cardiovascular disorder Chronic disease of cardiovascular system Encounter for long-term (current) use of insulin ([facility]) Hyperlipidemia Mitral valve disorder Morbid obesity with BMI of 40.0-44.9, adult ([facility]) Osteoarthritis of right hip Pulmonary embolism ([facility]) Right knee DJD CAD S/P percutaneous coronary angioplasty Implantable cardioverter-defibrillator (ICD) in situ NSTEMI (non-ST elevated myocardial infarction) ([facility]) SAULO (obstructive sleep apnea) 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) ([facility]) Class 1 obesity due to excess calories with serious comorbidity and body mass index (BMI) of 34.0 to 34.9 in adult COPD without exacerbation ([facility]) * Mary De Anda MD - 09/19/2025 11:10 AM EDT Images from the original note were not included. [facility] Medicine Daily Progress Note - 09/19/2025 11:10 AM; Room: [address] [place] [address] Admission: 09/17/2025 2:26 AM; Length of stay: 2 days THE HOSPITALIST TEAM PREFERS TO USE DrFirst FOR NON-URGENT COMMUNICATION 7AM- 7PM. IF I DO NOT RESPOND WITHIN 20 MINUTES OR URGENT MATTERS, PLEASE CALL THROUGH THE VETERINARY MILK SPECIALIST. FROM 7PM-7AM, PLEASE PAGE [phone](COVR). Code Status: Full Code Barriers to Discharge: cardiac cath Expected Discharge Date: pending cardiac cath findings Discharge Destination: home Overview Alvin Knight is an 89 y.o. male with history of HTN, HLD, CAD s/p stent placement, HF s/p BiV pacemaker placement, and COPD presenting from [facility] with SOB and dx with NSTEMI. Patient was transferred from [facility] where he was evaluated because of shortness of breath and some chest discomfort. After investigation patient was noted to have NSTEMI with troponin of over 10,000. He came with no heparinization but was said to be on Coumadin. INR is not noted. 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 COPD without exacerbation ([facility]) - Continue singulair. Attending attestation: Discussed with [...] LDL 72 09/18/2025 No results found for: [id number] , IRON , TIBC , C3 , C4 , MIKE , CANCA , ASO , PSA , CEA , CA125 , CA199 , AFP , CA153 Imaging Complete Echo (TTE) w/wo Imaging Agent, Strain, 3D, Bubble Study [facility] Heart Station [address] [place] [address] [phone] (fax) Echocardiogram-[facility] Name: ALVIN KNIGHT Study Date: 09/18/2025 10:20 AM B/P: 136 mmHg/90 mmHg HR: 123 bpm Date of : 1935 Location: [facility] Height: 68 in. Age: 89 year(s) Patient [...] No pericardial effusion. Procedure Staff Reading Group: [facility] Negative Developer: Shawn Masterson RDCS Ordering Physician: LUNA OCHOA Wall Motion Scores -1 - hyperkinesia, 0 - not evaluated, 1 - normal, 2 - hypokinesia, 3 - akinesia, 4 - dyskinesia Discharge Planning Expected Discharge Disposition: Home or Self Care () PT Discharge Recommendations: Patient is able to return to prior living environment Signed Danyell Way, MS3 [facility] Medicine 09/19/2025 11:10 AM * Thomas Morrison [...] any chest pain or dyspnea. Subjective: Rolando Knight is a 89 y.o. male with a past medical history notable for hypertension, hyperlipidemia, CAD s/p KISHAN to LAD & RCA in 2012, HFimpEF s/p BiV Pacemaker placement 2016, permanent A.F. on warfarin, arthritis, and obesity who presented as a transfer from [facility] with dyspnea and diagnosis of NSTEMI. Patient was transferred from [facility] where he was evaluated with dyspnea and chest discomfort. Troponins were elevated greater than 10,000. Patient diagnosed with NSTEMI and transferred to [facility] for further management. Initial labs: K3.4, Mg [...] 188 QT Interval 524 QTC CALCULATION(BAZETT) 518 R-[place] -37 T Wave [place] 76 Impression Ventricular-paced rhythm with intrinsic complexes Biventricular pacemaker detected Abnormal ECG When compared with ECG of 24-SEP-2017 07:23, Vent. rate has decreased BY 7 BPM Confirmed by Volodymyr Knott ([id number]) on 09/17/2025 10:21:06 AM No results found for: CKTOTAL , CKMB , CKMBINDEX , TROPONINI Complete Echo (TTE) w/wo Imaging Agent, Strain, 3D, Bubble Study Result Date: 09/18/2025 1 1 [facility] Heart Station [address] [facility] [place], [place] [phone] (fax) Echocardiogram-[facility] Name: ALVIN KNIGHT Study Date: 09/18/2025 10:20 AM B/P: 136 mmHg/90 mmHg HR: 123 bpm Date of : 1935 Location: [facility] Height: 68 in. Age: 89 year(s) Patient [...] pericardial effusion. Procedure S taff Reading Group: [facility] Negative Developer: Shawn Masterson RDCS Ordering Physician: LUNA OCHOA Wall Motion Scores -1 - hyperkinesia, 0 - not evaluated, 1 - normal, 2 - hypokinesia, 3 - akinesia, 4 - dyskinesia No nuclear medicine results found for the past 12 months Relevant Imaging Results Complete Echo (TTE) w/wo Imaging Agent, Strain, 3D, Bubble Study 1 1 [facility] Heart Station [address] [place] [address] [phone] (fax) Echocardiogram-[facility] Name: ALVIN KNIGHT Study Date: 09/18/2025 10:20 AM B/P: 136 mmHg/90 mmHg HR: 123 bpm Date of : 1935 Location: [facility] Height: 68 in. Age: 89 year(s) Patient [...] No pericardial effusion. Procedure Staff Reading Group: [facility] Negative Developer: Shawn Masterson RDCS Ordering Physician: LUNA OCHOA Wall Motion Scores -1 - hyperkinesia, 0 [...] greater than 10,000 at OSH, 4674 at [facility]. BNP 1209. Likely true type I NSTEMI in the setting of known CAD. Troponins downtrending (4674 > 3682 > 3331 > 2641) HFrEF, NYHA II-III TTE 09/18: LVEF 40% with mildly increased LV wall thickness. Mildly elevated right-sided pressures.Severely enlarged LA. Mild TR. 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 Every effort was made to ensure accuracy. However, inadvertent computerized estimator paperboard boxes errors may be present. Thomas Morrison MD PGY-2 Internal Medicine Cardiology Consult Service [facility] [1] Current Facility-Administered Medications: acetaminophen (Tylenol) tablet [...] Daily, Bette Vargas DO, 40 mg at 09/19/25 0612 sennosides-docusate [...] personal documentation from me. Nabeel Cramer MD, [facility] * Ricarda Grigsby, PT - 09/18/2025 3:28 PM EDT Physical Therapy Physical Therapy Evaluation Patient Name: Rolando Knight : 1935 Today's Date: 09/18/2025 Start Time: 1430 Stop Time: 1500 Time Calculation (min): 30 min PT Evaluation Time Entry PT Evaluation (Moderate) Time Entry: 30 General Subjective: Pt is resting in bed, dtr present. Cardiac cath canceled for today, plan to have done tomorrow. Pt reports he became dizzy when walking bed to toilet in room. RN nemo's session Patient Summary: Alvin Knight is an 89 y.o. male who came from [facility] with SOB and dx with NSTEMI. PT [...] General Assessment General Assessment Hearing: appears somewhat [place] Skin Integrity: observed areas intact. Pt has [...] Level of Function Prior Function Level of [place]: Needs assistance with homemaking, Independent with ADLs and functional transfers Prior Functional Mobility: Independent with rollator Receives Help From: Family, Home health (Pt's children check on him in mornings and evenings (before and after work). Pt has PHARMACIST for 3 hrs/day on 5 days/week and [...] except moderate GROSS after standing with RW. [id number] on RA. 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 Dizziness and giddiness DVT (deep venous thrombosis) ([facility]) History of cardiovascular disorder Chronic disease of cardiovascular system Encounter for long-term (current) use of insulin ([facility]) Hyperlipidemia Mitral valve disorder Morbid obesity with BMI of 40.0-44.9, adult ([facility]) Osteoarthritis of right hip Pulmonary embolism ([facility]) Right knee DJD CAD S/P percutaneous coronary angioplasty Implantable cardioverter-defibrillator (ICD) in situ NSTEMI (non-ST elevated myocardial infarction) ([facility]) SAULO (obstructive sleep apnea) 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) ([facility]) Class 1 obesity due to excess calories with serious comorbidity and body mass index (BMI) of 34.0 to 34.9 in adult COPD without exacerbation ([facility]) [2] Past Medical History: Diagnosis Date Atrial fibrillation ([facility]) CHF (congestive heart failure) ([facility]) Coronary artery disease Heart valve disease Hyperlipidemia [...] any chest pain or dyspnea. Subjective: Rolando Knight is a 89 y.o. male with a [...] Patient diagnosed with NSTEMI and transferred to [facility] for further management. Initial labs: K3.4, Mg [...] 188 QT Interval 524 QTC CALCULATION(BAZETT) 518 R-[place] -37 T Wave [place] 76 Impression Ventricular-paced rhythm with intrinsic complexes [...] greater than 10,000 at OSH, 4674 at [facility]. BNP 1209. Likely true type I NSTEMI in the setting of known CAD. Troponins downtrending (4674 > 3682 > 3331 > 2641) HFrEF, NYHA II-III TTE 09/18: LVEF 40% with mildly increased LV wall thickness. Mildly elevated right-sided pressures.Severely enlarged LA. Mild TR. 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 Every effort was made to ensure accuracy. However, inadvertent computerized estimator paperboard boxes errors may be present. Thomas Morrison MD PGY-2 Internal Medicine Cardiology Consult Service [facility] [1] Current Facility-Administered Medications: acetaminophen (Tylenol) tablet 650 mg, 650 mg, oral, q6h PRN, Perri Boland MD aspirin chewable tablet 81 mg, 81 mg, oral, Daily with breakfast, Roge Gomez MD atorvastatin (Lipitor) tablet 80 mg, 80 mg, oral, Nightly, Carlton Angulo MD, 80 mg at 09/17/256 carvedilol (Coreg) tablet 6.25 mg, 6.25 mg, [...] MD - 09/18/2025 4:21 PM EDT Mr. Knight was seen and examined by me today with Dr. Morrison and I agree with his note today. He was transferred from [facility] with acute SOB and troponin >10,000. In addition BNP elevated. We plan R and coronary cath tomorrow however, his INR elevated on warfarin and not coming down. We advise vitamin K 2.5 mg today and reassess in the morning. I have discussed with him the expected risks of the procedure including , bleeding, ND, renal failure, vascular injury etc, and he agrees to proceed. * Bette Vargas, DO - 09/18/2025 7:31 AM EDT Images from the original note were not included. [facility] Medicine Daily Progress Note - 09/18/2025 7:31 AM; Room: [address] [place] [address] Admission: 09/17/2025 2:26 AM; Length of stay: 1 days THE HOSPITALIST TEAM PREFERS TO USE DrFirst FOR NON-URGENT COMMUNICATION 7AM- 7PM. IF I DO NOT RESPOND WITHIN 20 MINUTES OR URGENT MATTERS, PLEASE CALL THROUGH THE VETERINARY MILK SPECIALIST. FROM 7PM-7AM, PLEASE PAGE [phone](COVR). Code Status: Full Code Barriers to Discharge: cardiac cath Expected Discharge Date: pending cardiac cath findings Discharge Destination: home Overview Alvin Knight is an 89 y.o. male who came from [facility] with SOB and dx with NSTEMI. Patient is an 89-year-old gentleman with the following past medical history; hypertension, HLD, CADwith stent, status post pacemaker placement, arthritis, obesity. Patient was transferred from [facility] where he was evaluated because of shortness [...] & Plan NSTEMI (non-ST elevated myocardial infarction) ([facility]) CAD (coronary artery disease) - CAD s/p KISHAN to LAD & RCA in 2012, HFimpEF s/p BiV Pacemaker placement 2017 - presented to [facility] with a troponin of 10,000 and transferred to [facility] - troponin 4674, 3682, 3331, 2641 - cards consulted - on heparin drip, lipitor, coreg - reports he does not take ASA at home, He is not on aspirin due to being on anticoagulation therapy for atrial fibrillation - plan for cardiac cath today Chronic atrial fibrillation ([facility]) Presence of biventricular cardiac pacemaker - 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, on warfarin - last interrogation done [...] heart failure with preserved ejection fraction (HFpEF) ([facility]) - echo pending - continue lasix 20mg podaily - continue coreg 6.25mg po bid Class 1 obesity due to excess calories with serious comorbidity and body mass index (BMI) of 34.0 to 34.9 in adult - encourage weight loss COPD without exacerbation (CMS/HCC) -continue singulair VTE Prophylaxis: IV heparin Scheduled [...] , FREET4 , CORTISOL , FEV1 , FMC6NMI , DLCO , RVSP , HDL , LDL No results found for: [id number] , IRON , TIBC , C3 , [...] AM Discharge Planning Signed Bette Vargas DO Hospital Medicine 09/18/2025 7:31 AM documented in this [...] Note Reason for Consult: NSTEMI HPI: Rolando Knight is a 89 y.o. male with a [...] Patient diagnosed with NSTEMI and transferred to [facility] for further management. Initial labs: K3.4, Mg [...] per After Visit Summary. Follow up with [facility] for INR Prescriptions Prior to Admission[2] [...] 188 QT Interval 524 QTC CALCULATION(BAZETT) 518 R-Pal[place] -37 T Wave [place] 76 Impression Ventricular-paced rhythm with intrinsic complexes [...] greater than 10,000 at OSH, 4674 at [facility]. BNP 1209. Likely true type I NSTEMI in the setting of known CAD. 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 Every effort was made to ensure accuracy. However, inadvertent computerized estimator paperboard boxes errors may be present. Thomas Morrison MD PGY-2 Internal Medicine Cardiology Consult Service [facility] [1] No family history on file. [2] [...] directed per After VisitSummary. Follow up with [facility] for INR Cosigned by Luna Ochoa MD at 09/18/2025 9:38 PM EDT * Perri Boland MD - 09/17/2025 2:53 AM EDT Images from the original note were not included. Hospital Medicine History and Physical 09/17/2025 2:53 AM THE HOSPITALIST TEAM PREFERS TO USE [employer] CHAT FOR NON-URGENT COMMUNICATION 7AM- 7PM. IF I DO NOT RESPOND WITHIN 20 MINUTES OR URGENT MATTERS, PLEASE CALL THROUGH THE VETERINARY MILK SPECIALIST. FROM 7PM-7AM, PLEASE PAGE [phone](COVR). Chief Complaint No chief complaint on file. History of Present Illness Alvin Knight is an 89 y.o. male who came from [facility] with SOB and dx with NSTEMI. Patient is an 89-year-old gentleman with the following past medical history; hypertension, HLD, CADwith stent, status post pacemaker placement, arthritis, obesity. Patient was transferred from [facility] where he was evaluated because of shortness of breath and some chest discomfort. After investigation patient was noted to have NSTEMI with troponin of over 10,000. She came with no heparinization but was said to be on Coumadin INR is not noted. We are going to start patient on heparin On arrival at [facility] bed he was lying in absolutely no [...] Assessment and Plan 89-year-old gentleman transferred from [facility] with NSTEMI. Patient is being commenced onheparin and monitor enzymes and consult cardiology Assessment & Plan CAD (coronary artery disease) -History of CAD - Currently in the throes of acute NSTEMI - Treat with morphine sulfate - Supplemental oxygen to keep saturation above 96% - Consult cardiology Chronic atrial fibrillation ([facility]) -History of chronic defibrillation patient is on Coumadin at home. - Monitor heart rate Presence of biventricular cardiac pacemaker -Chronic device/problem. Will continue to monitor and interrogate if need be Hyperlipidemia -Statins Morbid obesity with BMI of 40.0-44.9, adult ([facility]) -Weight loss is recommended by virtue of exercise and diet NSTEMI (non-ST elevated myocardial infarction) ([facility]) -History of CAD - Currently in the throes of acute NSTEMI - Treat with morphine sulfate - Supplemental oxygen to keep saturation above 96% - Consult cardiology DVT prophylaxis is VTE protocols per [facility] GI protection Protonix Monitor labs correct mellitus [...] this hospital stay by a member of [facility] Medicine. Past Medical History Medical History[1] Past [...] see attached note Signed Perri Boland MD [facility] Medicine 09/17/2025 2:53 AM [1] Past Medical [...] directed per After VisitSummary. Follow up with [facility] for INR documented in this encounter Consult Notes * Thomas Morrison MD - 09/17/2025 10:02 AM EDTAssociated Order(s): IP CONSULT TO CARDIOLOGY Images from the original note were not included. Cardiology Consult Note Reason for Consult: NSTEMI HPI: Rolando Knight is a 89 y.o. male with a [...] Patient diagnosed with NSTEMI and transferred to [facility] for further management. Initial labs: K3.4, Mg [...] a past medical history of Atrial fibrillation ([facility]), CHF (congestive heart failure) ([facility]), Coronary artery disease, Heart valve disease, Hyperlipidemia, [...] per After Visit Summary. Follow up with [facility] for INR Prescriptions Prior to Admission[2] [...] 188 QT Interval 524 QTC CALCULATION(BAZETT) 518 R-[place] -37 T Wave [place] 76 Impression Ventricular-paced rhythm with intrinsic complexes [...] greater than 10,000 at OSH, 4674 at [facility]. BNP 1209. Likely true type I NSTEMI in the setting of known CAD. 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 Every effort was made to ensure accuracy. However, inadvertent computerized estimator paperboard boxes errors may be present. Thomas Morrison MD PGY-2 Internal Medicine Cardiology Consult Service [facility] [1] No family history on file. [2] [...] directed per After VisitSummary. Follow up with kiana anticoagulation for INR Cosigned by Luna Ochoa MD at 09/18/2025 9:38 PM EDT Associated attestation - Luna Ochoa MD - 09/18/2025 9:38 PM EDT By [...] detailed note below, admitted with non-ST elevation ND Luna Ochoa MD, ScM, MSc Cardiac Car Coupler Email: [email or web address] documented in this encounter Nursing Notes * Rebecca Benitez RN - 09/19/2025 6:32 PM EDT Bedside report given to MAYRAN Pereira from MARYAN Fernandez. superintendent geophysical laboratory RN presented site to bedside RN. Bedside RN visualized site and palpated site to ensure there was no hematoma or bruising, and femoral site appears flat. Both bedside RN and director of cath lab RN mutually agreed that the site presents normal. superintendent geophysical laboratory RN and bedside RN either palpated or [...] 10,706. - Initial troponin on arrival at [facility] 4,674. - BNP elevated at 1,209. - [...] further OTM needs identified at this time. [facility] will continue to follow patient and assist with any further discharge related needs. Diet: Dietary Orders (From admission, onward) Start Ordered 09/19/251854 Regular Diet Heart Healthy/HTN, CABG,Stroke, (2gNA, low fat, low cholesterol) Diet effective now Question Answer Comment Room Service? Yes Fat restriction: Heart Healthy/HTN, CABG,Stroke, (2gNA, low fat, low cholesterol) 09/19/25 1854 09/18/25 1310 Special Kitchen Request Once Comments: [place] burger only mustard, caffeine-free coke, sprite 09/18/25 [...] Therapy Orders (From admission, onward) Start Ordered 09/17/25302 PT eval and treat Until therapy completed Question: Reason for PT? Answer: Eval and treat. 09/17/2530109/17/25302 OT eval and treat Until therapy completed Question: Reason for OT? Answer: Eval and treat. 09/17/25301 * Significant Event - JON Fisher - 09/20/2025 9:35 AM EDT 09/20/2533 Referral Data Referral Source Physician Referral Reason Information Patient Information Primary Caregiver Family Activities of Daily Living Assistive Device Other (Comment) (Has rollator, lift chair, manual wheelchair, tall toilet.) Ambulation Independent Dressing Independent Feeding Independent Behavior Oriented Communication Talks;Understands speaking;Understands Russian Income Information Income Source Unemployed (States he [...] baseline comfort level Outcome: Progressing Flowsheets (Taken 09/18/2025 2311) Verbalizes/displays adequate comfort level or baseline comfort [...] and behaviors that affect risk of falls [place] fall precautions as indicated by assessment Educate [...] - 09/19/2025 2:24 PM EDT Patient: Rolando Knight Procedure Information Date/Time: 09/19/25 1530 Procedures: Coronary angiography Right heart cath Location: [facility] PROGRAM CLERK 3 / [facility] (Cath) Providers: Salo Campbell MD [...] not worn CPAP for 2 months. Reports davidened could not find a mask that works for him. - He reports he does not want to wear a CPAP when I offered to consult our pulmonary navigator. 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 Zero ED/Inpt admits in the past 6 months. OP Specialty slp received complex care referral via [employer]. 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 * Care [...] and behaviors that affect risk of falls [place] fall precautions as indicated by assessment Educate patient/family on patient safety, including physical limitations Instruct patient to call for assistance with activity based on assessment Modify environment to reduce risk of injury Consider OT/PT consult to assist with strengthening/mobility Problem: Discharge Planning Goal: Discharge to home or other facility with appropriate resources Outcome: Progressing Flowsheets (Taken 09/18/2025 2317) Discharge to home or other facility with [...] Associated Problem(s): NSTEMI (non-ST elevated myocardial infarction) ([facility]) - CAD s/p KISHAN to LAD & RCA in 2012, HFimpEF s/p BiV Pacemaker placement 2017 - presented to [facility] with a troponin of 10,000 and transferred to [facility] - troponin 4674, 3682, 3331, 2641 - [...] BiV Pacemaker placement 2017 - presented to [facility] with a troponin of 10,000 and transferred to [facility] - troponin 4674, 3682, 3331, 2641 - [...] - 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, on warfarin - last interrogation done [...] weight loss * Care Plan - Viktoria Ying RN - 09/17/2025 10:44 PM EDT The [...] Morbid obesity with BMI of 40.0-44.9, adult ([facility]) -Weight loss is recommended by virtue of exercise and diet * Assessment & Plan Note - Perri Boland MD - 09/17/2025 4:25 AM EDT Associated Problem(s): NSTEMI (non-ST elevated myocardial infarction) ([facility]) -History of CAD - Currently in the throes of acute NSTEMI - Treat with morphine sulfate - Supplemental oxygen to keep saturation above 96% - Consult cardiology DVT prophylaxis is VTE protocols per [facility] GI protection Protonix Monitor labs correct mellitus [...] Plan of Treatment DateTypeDepartmentCare Team (Latest Contact Info)Jngounrvawd07/06/2025 2:00 PM ESTOffice Visit [facility] [address] [place] [address] Harman Anders, INSTANT POTATO PROCESSING SUPERVISOR [address] [place] [address] NameTypePriorityAssociated DiagnosesOrder ScheduleAmbulatory referral to Cardiac RehabOutpatient ReferralRoutine S/P drug eluting coronary stent placement Expected: 09/19/2025 (Approximate), Expires: 03/20/2026documented as of this encounter Procedures Procedure NamePriorityDate/TimeAssociated DiagnosisCommentsCBCPending Discharge 09/20/2025 6:10 AM EDT MAGNESIUMPending Otcojlrln56/22/2025 6:10 AM EDT BASIC METABOLIC PANELPending Hkahepvqt45/22/2025 6:10 AM EDT ECG 12-EGQYKbhxx94/21/2025 6:30 PM EDT POCT ACTIVATED CLOTTING BWGPJpeiyoj16/21/2025 5:56 PM EDT ACTIVATED CLOTTING IRXWBsfhoki56/21/2025 5:49 PM EDT ULTRASOUND - MNGOSIADUasktqp20/21/2025 5:11 PM EDT NSTEMI (non-ST elevated myocardial infarction) (CMS/HCC) PERC CORONARY MQSVHBFMBWCRYznrioc09/21/2025 5:11 PM EDT NSTEMI (non-ST elevated myocardial infarction) (CMS/HCC) RIGHT HEART GWRJAcnwdri08/21/2025 5:11 PM EDT NSTEMI (non-ST elevated myocardial infarction) (CMS/HCC) CORONARY THPEMSKYCUIEprqgpd86/21/2025 5:11 PM EDT NSTEMI (non-ST elevated myocardial infarction) (CMS/HCC) ACTIVATED CLOTTING WYIXZjqpljv41/21/2025 4:51 PM EDT ACTIVATED CLOTTING HYTOBxrkxfl74/21/2025 4:35 PM EDT ACTIVATED CLOTTING XQTYDjkmyxc70/21/2025 3:58 PM EDT %RFV6Mcjienu20/21/2025 3:40 PM EDT ANTI-FACTOR XAPending Nirujenrn40/21/2025 12:31 PM EDT POTASSIUMPending Eudaxqioc08/21/2025 12:31 PM EDT EXTRA RZVXEXkxuafk98/21/2025 6:00 AM EDT LAVENDER UUAGffqkhr09/21/2025 6:00 AM EDT PROTIME-INRPending Jkuccoxal67/21/2025 6:00 AM EDT ANTI-FACTOR XAPending Uzebvfunf98/21/2025 6:00 AM EDT MAGNESIUMPending Fublybyug98/21/2025 6:00 AM EDT BASIC METABOLIC PANELPending Ofsxgpqvc74/21/2025 6:00 AM EDT ANTI-FACTOR TQDjkou29/21/2025 12:16 AM EDT ANTI-FACTOR DFTxboy43/20/2025 6:00 PM EDT ANTI-FACTOR ZISgmae82/20/2025 11:33 AM EDT COMPLETE ECHO (TTE) W/ IMAGING KLVFBDfduvdi57/20/2025 10:43 AM EDT OBQMFSIVUMltpaiw79/20/2025 7:45 AM EDT LIPID PANELAdd-On09/18/2025 7:45 AM EDT BASIC METABOLIC OVPYEXWQC56/20/2025 7:45 AM EDT RJNCRBT-BGWMkp-Kb05/20/2025 4:33 AM EDT ANTI-FACTOR YWFttuihf70/20/2025 4:33 AM EDT HLCKhrgpqh14/20/2025 4:33 AM EDT HIGH SENSITIVITY TROPONIN SEqmrt8509/18/2025 12:01 AM EDT HIGH SENSITIVITY TROPONIN IJfqmc4209/17/2025 5:25 PM EDT ANTI-FACTOR FAQikeapx60/19/2025 5:25 PM EDT HIGH SENSITIVITY TROPONIN GNhoni9609/17/2025 11:57 AM EDT EMOZVCP-RHVDuc-Qi27/19/2025 9:57 AM EDT ANTI-FACTOR WRKyxiu28/19/2025 9:57 AM EDT ECG 12-FMKVZepohvl75/19/2025 9:39 AM EDT HIGH SENSITIVITY TROPONIN JUkcxuik56/19/2025 3:50 AM EDT UFKFZPCG75/19/2025 3:50 AM EDT LNWVHGU1609/17/2025 3:50 AM EDT B-TYPE NATRIURETIC GETXHWIOrtuujr21/19/2025 3:50 AM EDT MWDHFWJYPGerhqza08/19/2025 3:50 AM EDT LACTIC ACID, YGSNUDNjhhqkx65/19/2025 3:50 AM EDT COMPREHENSIVE METABOLIC PJXKRPnabonk81/19/2025 3:50 AM EDT documented in this encounter Results * (ABNORMAL) Magnesium (09/20/2025 6:10 AM EDT)ComponentValueRef RangeTest MethodAnalysis TimePerformed AtPathologist SignatureMagnesium1.8(L)1.9 - 2.7 mg/dL09/20/2025 7:20 AM [facility] ([facility])Specimen (Source) Anatomical Location / LateralityCollection Method / VolumeCollection Time Received TimeBloodVenous blood specimen / UnknownVenipuncture / Unknown 09/20/2025 6:10 AM EDT1 6:50 AM EDT Narrative Authorizing ProviderResult TypeResult StatusStephanie Alicia DOLAB BLOOD ORDERABLESFinal ResultPerforming OrganizationAddressCity/State/ZIP CodePhone Number [facility] ([facility]) [address] [place] [address] * (ABNORMAL) Basic metabolic panel (09/20/2025 6:10 AM EDT)ComponentValueRef RangeTest MethodAnalysis TimePerformed AtPathologist HffwlqlamBgxrtk991469 - 145 mmol/L1 7:20 AM [facility] ([facility])Potassium3.4(L)3.5 - 5.1 mmol/L1 7:20 AM [facility] ([facility])Mqwdbawl874(H)98 - 107 mmol/L1 7:20 AM [facility] ([facility])ZJ12005 - 31 mmol/L 09/20/2025 7:20 AM [facility] ([facility])BUN28(H)7 - 25 mg/dL09/20/2025 7:20 AM [facility] ([facility])Creatinine0.850.70 - 1.30 mg/dL 09/20/2025 7:20 AM [facility] ([facility])Itygbzl148(H)70 - 100 mg/dL 09/20/2025 7:20 AM [facility] ([facility])Calcium8.88.6 - 10.3 mg/dL 09/20/2025 7:20 AM [facility] ([facility])Anion Rjt340 - 20 mmol/L 09/20/2025 7:20 AM [facility] ([facility])eGFR83.6>60.0 mL/min/1.73m*2 09/20/2025 7:20 AM [facility] ([facility])Comment:[facility]???s estimated glomerular filtration rate (eGFR) will no [...] one group of individuals.BUN/Creatinine Ratio32.91 7:20 AM [facility] ([facility])Specimen (Source)Anatomical Location / LateralityCollection Method / VolumeCollection TimeReceived TimeBloodVenous blood specimen / Unknown Venipuncture / Zukjxuv8309/20/2025 6:10 AM EDT1 6:50 AM EDT Narrative Authorizing ProviderResult TypeResult StatusStephanbriseyda Vargas [facility] BLOOD ORDERABLESFinal ResultPerforming OrganizationAddressCity/State/ZIP CodePhone Number [facility] ([facility]) [address] [place] [address] * (ABNORMAL) CBC (09/20/2025 6:10 AM EDT)ComponentValueRef RangeTest Method Analysis TimePerformed AtPathologist SignatureAuto WBC8.094.00 - 10.60 10*3/uL 09/20/2025 7:31 AM [facility] ([facility])RBC3.37(L)4.20 - 5.70 10*6/uL 09/20/2025 7:31 AM [facility] ([facility])Gkpmqdhjgf94.4(L)13.0 - 17.0 g/dL09/20/2025 7:31 AM [facility] ([facility])Kblavfcpce26.0(L)39.0 - 50.0 %09/20/2025 7:31 AM [facility] ([facility])MCV95.082.0 - 98.0 fL 09/20/2025 7:31 AM [facility] ([facility])MCH30.927.0 - 33.0 pg 09/20/2025 7:31 AM [facility] ([facility])MCHC32.532.0 - 35.0 g/dL 09/20/2025 7:31 AM [facility] ([facility])RDW13.211.5 - 15.0 %09/20/2025 7:31 AM [facility] ([facility])Xddlhrylq422728 - 400 10*3/uL09/20/2025 7:31 AM [facility] ([facility])Specimen (Source)Anatomical Location / LateralityCollection Method / VolumeCollection TimeReceived TimeBloodVenous blood specimen / UnknownVenipuncture / Xfutwee5609/20/2025 6:10 AM EDT1 6:54 AM EDT Narrative Authorizing ProviderResult TypeResult StatusBonaventure Kya [facility] BLOOD ORDERABLESFinal ResultPerforming OrganizationAddressCity/State/ZIP CodePhone Number [facility] ([facility]) [address] [place] [address] * ECG 12 lead (09/19/2025 6:30 PM EDT)ComponentValueRef RangeTest MethodAnalysis TimePerformed AtPathologist SignatureVentricular Qkmx97FFUHU MUSEAtrial Rate 288BPMGE MUSEQRS ZAFQOQRX990pjZD MUSEQT Wuggovfy040vtAC MUSEQTC CALCULATION(BAZETT)518msGE MUSER-Oqdz288dmjkxzuPF MUSET Wave Wbge44tgdtaybLK MUSESpecimen (Source)Anatomical Location / LateralityCollection Method / [...] 09/19/2025 7:59:33 PM Authorizing ProviderResult TypeResult StatusGeorfernando Campbell MDECJeffrey ORDERABLES Final ResultPerforming OrganizationAddressCity/State/ZIP CodePhone Number GE MUSE * (ABNORMAL) POCT activated clotting time manually resulted (09/19/2025 5:56 PM EDT)ComponentValueRef RangeTest MethodAnalysis TimePerformed AtPathologist SignatureActivated Clotting Time OPS878(A)82 - 152 secSpecimen (Source) Anatomical Location / LateralityCollection Method / VolumeCollection Time Received TimeBloodVenous blood specimen / Kitraqh4309/19/2025 5:56 PM EDT Narrative Authorizing ProviderResult TypeResult StatusMary De Anda MDPOINT OF CARE TEST ENTER/EDIT ORDERABLESFinal Result * (ABNORMAL) Activated clotting time (09/19/2025 5:49 PM EDT)ComponentValueRef RangeTest MethodAnalysis TimePerformed AtPathologist SignatureActivated Clotting Qjxv256(H)82 - 152 09/19/2025 5:57 [facility] ([facility]) Specimen (Source)Anatomical Location / LateralityCollection Method / Volume Collection TimeReceived TimeBloodVenous blood specimen / Uoiiuqn2709/19/2025 5:49 PM EDT1 5:57 PM EDT Narrative Authorizing ProviderResult TypeResult Branden BAEZ POINT OF CARE TEST DOCKED DEVICE UNSOLICITED RESULTSFinal ResultPerforming OrganizationAddress City/State/ZIP CodePhone Number [facility] ([facility]) [address] [place] [address] * CORONARY ANGIOGRAPHY, RIGHT HEART CATH, PERC CORONARY INTERVENTION, ULTRASOUND - CORONARY (09/19/2025 5:11 PM EDT)Anatomical RegionLateralityModalityOther Specimen (Source)Anatomical Location / LateralityCollection Method / Volume Collection TimeReceived Time Narrative 09/19/2025 5:25 PM EDT PROCEDURE PHYSICIAN: Salo Campbell MD . Indications: Alvin Knight is a 89 y.o. male with history [...] informed consent. ??he was brought to the director of cath lab in a fasting state. The right neck area was prepped and draped in usual fashion. Micropuncture technique was used for access under ultrasound guidance into the right internal jugular vein. ??A 6-Finnish x 11 cm sheath was placed. ?? The left wrist area was prepped and draped in usual fashion. Micropuncture technique was used for access in the radial artery. ??A 6-Finnish x 11 cm sheath was placed. ??Verapamil was given through the sheath, and heparin was administered intravenously. ?? A 6-Finnish Jackson catheter was used for right heart catheterization and measurement of pressures and calculation of cardiac output using the estimated Deanna method. ??Jackson catheter was removed. Bilateral selective coronary angiography was then performed using 6-Finnish JL4 diagnostic catheter for engagement of the left coronary artery and 6-Finnish JR4 diagnostic catheter for engagement of the right coronary artery. Catheters were removed. Heparin was administered intravenously and therapeutic ACT was confirmed during the rest of the procedure. A 6-Finnish XB 3.5 guiding catheter was advanced and used to engage the left coronary ostium. Baseline MARTINA flow was 3. A [email or web address] coronary guide wire was advanced to the distal left anterior descending coronary artery. A [email or web address] Opstar OCT catheter was advanced and used to [...] Study Details NSTEMI (non-ST elevated myocardial infarction) ([facility]) [I21.4] Authorizing ProviderResult TypeResult StatusVinay Treadwell [facility] CARDIAC CATH PROCEDURESFinal Result * (ABNORMAL) Activated clotting time (09/19/2025 4:51 PM EDT)ComponentValueRef RangeTest MethodAnalysis TimePerformed AtPathologist SignatureActivated Clotting Gjel096(H)82 - 152 09/19/2025 5:00 PM [facility] ([facility]) Specimen (Source)Anatomical Location / LateralityCollection Method / Volume Collection TimeReceived TimeBloodVenous blood specimen / Ebrapao3909/19/2025 4:51 PM EDT1 5:00 PM EDT Narrative Authorizing ProviderResult TypeResult StatusMary BAEZ POINT OF CARE TEST DOCKED DEVICE UNSOLICITED RESULTSFinal ResultPerforming OrganizationAddress City/State/ZIP CodePhone Number [facility] ([facility]) [address] [place] [address] * (ABNORMAL) Activated clotting time (09/19/2025 4:35 PM EDT)ComponentValueRef RangeTest MethodAnalysis TimePerformed AtPathologist SignatureActivated Clotting Mvae676(H)82 - 152 09/19/2025 5:00 PM [facility] ([facility]) Specimen (Source)Anatomical Location / LateralityCollection Method / Volume Collection TimeReceived TimeBloodVenous blood specimen / Wggunpw7709/19/2025 4:35 PM EDT10/ 5:00 PM EDT Narrative Authorizing ProviderResult TypeResult StatusSavanessa BAEZ POINT OF CARE TEST DOCKED DEVICE UNSOLICITED RESULTSFinal ResultPerforming OrganizationAddress City/State/ZIP CodePhone Number [facility] ([facility]) [address] [place] [address] * (ABNORMAL) Activated clotting time (09/19/2025 3:58 PM EDT)ComponentValueRef RangeTest MethodAnalysis TimePerformed AtPathologist SignatureActivated Clotting Bxtn075(H)82 - 152 09/19/2025 5:00 [facility]) Specimen (Source)Anatomical Location / LateralityCollection Method / Volume Collection TimeReceived TimeBloodVenous blood specimen / Qzigsqn0409/19/2025 3:58 PM EDT1 5:00 PM EDT Narrative Authorizing ProviderResult TypeResult StatusMary BAEZ POINT OF CARE TEST DOCKED DEVICE UNSOLICITED RESULTSFinal ResultPerforming OrganizationAddress City/State/ZIP CodePhone Number [facility] ([facility]) [address] [place] [address] * (ABNORMAL) %HbO2 (09/19/2025 3:40 PM EDT)ComponentValueRef RangeTest Method Analysis TimePerformed AtPathologist MwxhhrtiqY8Zt%46.1(L)90.0 - 95.0 % 09/19/2025 3:41 PM [facility] ([facility])Specimen (Source)Anatomical Location / LateralityCollection Method / VolumeCollection TimeReceived Time BloodVenous blood specimen / Fhfygrt8009/19/2025 3:40 PM EDT1 3:40 PM EDT Narrative Authorizing ProviderResult TypeResult StatusMary BAEZ POINT OF CARE TEST DOCKED DEVICE UNSOLICITED RESULTSFinal ResultPerforming OrganizationAddress City/State/ZIP CodePhone Number [facility] ([facility]) [address] [facility] [place] [address] * Potassium (09/19/2025 12:31 PM EDT)ComponentValueRef RangeTest MethodAnalysis TimePerformed AtPathologist SignaturePotassium4.03.5 - 5.1 mmol/L1 1:04 PM [facility] ([facility])Specimen (Source)Anatomical Location / LateralityCollection Method / VolumeCollection TimeReceived TimeBloodVenous blood specimen / UnknownVenipuncture / Eegpexx6009/19/2025 12:31 PM EDT 09/19/2025 12:36 PM EDT Narrative Authorizing ProviderResult TypeResult StatusNabeel Cramer [facility] BLOOD ORDERABLES Final ResultPerforming OrganizationAddressCity/State/ZIP CodePhone Number [facility] ([facility]) [address] [place] [address] * (ABNORMAL) Anti-Xa (Heparin Level) (09/19/2025 12:31 PM EDT)ComponentValueRef RangeTest MethodAnalysis TimePerformed AtPathologist SignatureAnti-Xa (Heparin)<0.10(LL)0.3 - 0.7 IU/mL09/19/2025 1:18 PM [facility] ([facility])Comment:Rivaroxaban and Apixaban will interfere with the anti Xa assay used to monitor UFH and LMWH.Specimen (Source)Anatomical Location / LateralityCollection Method / VolumeCollection TimeReceived TimeBloodVenous blood specimen / UnknownVenipuncture / Vwxvdwi3709/19/2025 12:31 PM EDT 09/19/2025 12:34 PM EDT Narrative Authorizing ProviderResult TypeResult StatusCarlton Angulo [facility] BLOOD ORDERABLESFinal ResultPerforming OrganizationAddressCity/State/ZIP CodePhone Number [facility] ([facility]) [address] [place] [address] * Lavender Top (09/19/2025 6:00 AM EDT)ComponentValueRef RangeTest Method Analysis TimePerformed AtPathologist SignatureExtra TubeHold for add-ons. 09/19/2025 8:01 AM [facility] ([facility])Comment:Auto resulted.Specimen (Source)Anatomical Location / LateralityCollection Method / VolumeCollection TimeReceived TimeBloodVenous blood specimen / Qvocduo1909/19/2025 6:00 AM EDT 09/19/2025 6:35 AM EDT Narrative Authorizing ProviderResult TypeResult StatusStephanie Alicia DOLAB BLOOD ORDERABLESFinal ResultPerforming OrganizationAddressCity/State/ZIP CodePhone Number [facility] ([facility]) [address] [place] [address] * Magnesium (09/19/2025 6:00 AM EDT)ComponentValueRef RangeTest MethodAnalysis TimePerformed AtPathologist SignatureMagnesium1.91.9 - 2.7 mg/dL09/19/2025 7:19 AM [facility] ([facility])Specimen (Source)Anatomical Location / LateralityCollection Method / VolumeCollection TimeReceived TimeBloodVenous blood specimen / UnknownVenipuncture / Vviwazu7809/19/2025 6:00 AM EDT1 6:42 AM EDT Narrative Authorizing ProviderResult TypeResult StatusStephanie Alicia DOLAB BLOOD ORDERABLESFinal ResultPerforming OrganizationAddressCity/State/ZIP CodePhone Number [facility] ([facility]) [address] [place] [address] * (ABNORMAL) Basic metabolic panel (09/19/2025 6:00 AM EDT)ComponentValueRef RangeTest MethodAnalysis TimePerformed AtPathologist YrpdydyxaXjyarw611516 - 145 mmol/L1 7:19 AM [facility] ([facility])Potassium3.4(L)3.5 - 5.1 mmol/L1 7:19 AM [facility] ([facility])Ptiznyct849(H)98 - 107 mmol/L1 7:19 AM [facility] ([facility])SD39048 - 31 mmol/L 09/19/2025 7:19 AM [facility] ([facility])BUN28(H)7 - 25 mg/dL09/19/2025 7:19 AM [facility] ([facility])Creatinine0.940.70 - 1.30 mg/dL 09/19/2025 7:19 AM [facility] ([facility])Clhxvgh016(H)70 - 100 mg/dL 09/19/2025 7:19 AM [facility] ([facility])Calcium8.98.6 - 10.3 mg/dL 09/19/2025 7:19 AM [facility] ([facility])Anion Hmp910 - 20 mmol/L 09/19/2025 7:19 AM [facility] ([facility])eGFR78.0>60.0 mL/min/1.73m*2 09/19/2025 7:19 AM [facility] ([facility])Comment:[facility]???s estimated glomerular filtration rate (eGFR) will no [...] one group of individuals.BUN/Creatinine Ratio29.81 7:19 AM [facility] ([facility])Specimen (Source)Anatomical Location / LateralityCollection Method / VolumeCollection TimeReceived TimeBloodVenous blood specimen / Unknown Venipuncture / Btjqmhd7209/19/2025 6:00 AM EDT1 6:42 AM EDT Narrative Authorizing ProviderResult TypeResult StatusStepclarice Vargas [facility] BLOOD ORDERABLESFinal ResultPerforming OrganizationAddressCity/State/ZIP CodePhone Number [facility] ([facility]) [address] [place] [address] * (ABNORMAL) Anti-Xa (Heparin Level) (09/19/2025 6:00 AM EDT)ComponentValueRef RangeTest MethodAnalysis TimePerformed AtPathologist SignatureAnti-Xa (Heparin)<0.10(LL)0.3 - 0.7 IU/mL09/19/2025 7:19 AM [facility] ([facility])Comment:Rivaroxaban and Apixaban will interfere with the anti Xa assay used to monitor UFH and LMWH.Specimen (Source)Anatomical Location / LateralityCollection Method / VolumeCollection TimeReceived TimeBloodVenous blood specimen / UnknownVenipuncture / Msydtbh4509/19/2025 6:00 AM EDT1 6:30 AM EDT Narrative Authorizing ProviderResult TypeResult StatusImmanuelu Rogelio Angulo MDLAB BLOOD ORDERABLESFinal ResultPerforming OrganizationAddressCity/State/ZIP CodePhone Number [facility] ([facility]) [address] [place] [address] * (ABNORMAL) Protime-INR (09/19/2025 6:00 AM EDT)ComponentValueRef RangeTest MethodAnalysis TimePerformed AtPathologist AgrjxtipnZpvzlva74.8(H)12.3 - 14.8 Vpvbmyt3409/19/2025 7:12 AM [facility] ([place])INR1.56(H)0.90 - 1.10 09/19/2025 7:12 AM [facility] ([place])Comment: [facility] RECOMMENDED INR FOR WARFARIN THERAPY CONDITION [...] TimeReceived TimeBloodVenous blood specimen / UnknownVenipuncture / Zrpabtc8509/19/2025 6:00 AM EDT1 6:30 AM EDT Narrative Authorizing ProviderResult TypeResult StatusJim Lewis [facility] BLOOD ORDERABLESFinal ResultPerforming OrganizationAddressCity/State/ZIP CodePhone Number [facility] ([facility]) [address] [place], [place] [phone] * (ABNORMAL) Anti-Xa (Heparin Level) (09/19/2025 12:16 AM EDT)ComponentValueRef RangeTest MethodAnalysis TimePerformed AtPathologist SignatureAnti-Xa (Heparin)<0.10(LL)0.3 - 0.7 IU/mL09/19/2025 1:13 AM [facility] ([facility])Comment:Rivaroxaban and Apixaban will interfere with the anti Xa assay used to monitor UFH and LMWH.Specimen (Source)Anatomical Location / LateralityCollection Method / VolumeCollection TimeReceived TimeBloodVenous blood specimen / UnknownVenipuncture / Twmyobf1109/19/2025 12:16 AM EDT 09/19/2025 12:34 AM EDT Narrative Authorizing ProviderResult TypeResult StatusCarlton Angulo [facility] BLOOD ORDERABLESFinal ResultPerforming OrganizationAddressCity/State/ZIP CodePhone Number [facility] ([facility]) [address] [place], [place] [phone] * (ABNORMAL) Anti-Xa (Heparin Level) (09/18/2025 6:00 PM EDT)ComponentValueRef RangeTest MethodAnalysis TimePerformed AtPathologist SignatureAnti-Xa (Heparin)<0.10(LL)0.3 - 0.7 IU/mL09/18/2025 6:40 PM [facility] ([facility])Comment:Rivaroxaban and Apixaban will interfere with the anti Xa assay used to monitor UFH and LMWH.Specimen (Source)Anatomical Location / LateralityCollection Method / VolumeCollection TimeReceived TimeBloodVenous blood specimen / UnknownVenipuncture / Easltsd7509/18/2025 6:00 PM EDT1 6:05 PM EDT Narrative Authorizing ProviderResult TypeResult StatusCarlton Angulo [facility] BLOOD ORDERABLESFinal ResultPerforming OrganizationAddressCity/State/ZIP CodePhone Number [facility] ([facility]) [address] [place] [address] * (ABNORMAL) Anti-Xa (Heparin Level) (09/18/2025 11:33 AM EDT)ComponentValueRef RangeTest MethodAnalysis TimePerformed AtPathologist SignatureAnti-Xa (Heparin)0.76(H)0.3 - 0.7 IU/mL09/18/2025 12:15 PM [facility] ([facility])Comment:Rivaroxaban and Apixaban will interfere with the anti Xa assay used to monitor UFH and LMWH.Specimen (Source)Anatomical Location / LateralityCollection Method / VolumeCollection TimeReceived TimeBloodVenous blood specimen / UnknownVenipuncture / Rapehvz7309/18/2025 11:33 AM EDT 09/18/2025 11:49 AM EDT Narrative Authorizing ProviderResult TypeResult StatusCarlton Angulo [facility] BLOOD ORDERABLESFinal ResultPerforming OrganizationAddressCity/State/ZIP CodePhone Number [facility] ([facility]) [address] [place] [address] * COMPLETE ECHO (TTE) W/ IMAGING AGENT (09/18/2025 10:43 AM EDT)Anatomical RegionLateralityModalityOtherSpecimen (Source)Anatomical Location / Laterality Collection Method / VolumeCollection TimeReceived Time09/18/2025 10:20 AM EDT Narrative 09/18/2025 12:04 PM EDT 1 1 [facility] Heart Station [address] [place] [address] [phone] (fax) Echocardiogram-[facility] Name: ALVIN KNIGHT Study Date: 09/18/2025 10:20 AM B/P: 136 mmHg/90 mmHg HR: 123 bpm Date of : 1935 Location: [facility] Height: 68 in. Age: 89 year(s) Patient [...] No pericardial effusion. Procedure Staff Reading Group: [facility] Negative Developer: Shawn Masterson RDCS ??Ordering Physician: LUNA OCHOA ?? Wall Motion Scores -1 - hyperkinesia, 0 - not evaluated, 1 - normal, 2 - hypokinesia, 3 - akinesia, 4 - dyskinesia Procedure Note Juan Bauer MD - 09/18/2025 1 1 [facility] Heart Station [address] [place] [address] [phone] (fax) Echocardiogram-[facility] Name: ALVIN KNIGHT Study Date: 09/18/2025 10:20 AM B/P: 136 mmHg/90 mmHg HR: 123 bpm Date of : 1935 Location: [facility] Height: 68 in. Age: 89 year(s) Patient [...] No pericardial effusion. Procedure Staff Reading Group: [facility] Negative Developer: Shawn Masterson RDCS Ordering Physician: LUNA OCHOA Wall Motion Scores -1 - hyperkinesia, 0 - not evaluated, 1 - normal, 2 - hypokinesia, 3 - akinesia, 4 - dyskinesia Authorizing ProviderResult TypeResult StatusAbhisada Ochoa [facility] ECHO PROCEDURES Final Result * (ABNORMAL) Lipid panel (09/18/2025 7:45 AM EDT)ComponentValueRef RangeTest MethodAnalysis TimePerformed AtPathologist KhszdpiluFztqpypwhgdvm87<150 mg/dL 09/18/2025 9:13 AM [facility] ([facility])Comment: TRIGLYCERIDE REFERENCE RANGE: 20 YEARS AND OLDER ?CARDIOVASCULAR RISK LESS THAN 150 mg/dL ? LOW RISK 150 TO 199 mg/dL ?BORDERLINE RISK 200 mg/dL AND GREATER ? HIGH RISK Xajcogilgbd883(L)120 - 200 mg/dL09/18/2025 9:13 AM [facility] ([facility]) LDL Dcwkfuxrji656 - 160 mg/dL09/18/2025 9:13 AM [facility] ([facility])HDL 3423 - 92 mg/dL09/18/2025 9:13 AM [facility] ([facility])Non HDL Pbbemaddhqj4766/20/2025 9:13 AM [facility] ([facility])Total VLDL-C130 - 40 mg/dL09/18/2025 9:13 AM [facility] ([facility])Cholesterol/HDL Ratio3.1 mg/dL09/18/2025 9:13 AM [facility] ([facility])Specimen (Source)Anatomical Location / LateralityCollection Method / VolumeCollection TimeReceived Time BloodVenous blood specimen / UnknownVenipuncture / Hbiezoq4309/18/2025 7:45 AM EDT 09/18/2025 8:16 AM EDT Narrative Authorizing ProviderResult TypeResult StatusStephanbriseyda Alicia DOLAB BLOOD ORDERABLESFinal ResultPerforming OrganizationAddressCity/State/ZIP CodePhone Number [facility]) [address] [place] [address] * Magnesium (09/18/2025 7:45 AM EDT)ComponentValueRef RangeTest MethodAnalysis TimePerformed AtPathologist SignatureMagnesium2.11.9 - 2.7 mg/dL09/18/2025 8:43 AM [facility] ([facility])Specimen (Source)Anatomical Location / LateralityCollection Method / VolumeCollection TimeReceived TimeBloodVenous blood specimen / UnknownVenipuncture / Fhkjwhq8809/18/2025 7:45 AM EDT1 8:16 AM EDT Narrative Authorizing ProviderResult TypeResult StatusStephanbriseyda Alicia DOLAB BLOOD ORDERABLESFinal ResultPerforming OrganizationAddressCity/State/ZIP CodePhone Number [facility]) [address] [place] [phone] * (ABNORMAL) Basic metabolic panel (09/18/2025 7:45 AM EDT)ComponentValueRef RangeTest MethodAnalysis TimePerformed AtPathologist WklufbwyqWzhnjo734862 - 145 mmol/L1 8:43 AM [facility] ([facility])Potassium3.83.5 - 5.1 mmol/L1 8:43 AM [facility] ([facility])Kzduthga94338 - 107 mmol/L1 8:43 AM [facility] ([facility])QA88468 - 31 mmol/L 09/18/2025 8:43 AM [facility] ([facility])BUN26(H)7 - 25 mg/dL09/18/2025 8:43 AM [facility] ([facility])Creatinine0.890.70 - 1.30 mg/dL 09/18/2025 8:43 AM [facility] ([facility])Upmhsnq244(H)70 - 100 mg/dL 09/18/2025 8:43 AM [facility] ([facility])Calcium8.98.6 - 10.3 mg/dL 09/18/2025 8:43 AM [facility] ([facility])Anion Uys358 - 20 mmol/L 09/18/2025 8:43 AM [facility] ([facility])eGFR82.4>60.0 mL/min/1.73m*2 09/18/2025 8:43 AM [facility] ([facility])Comment:[facility]???s estimated glomerular filtration rate (eGFR) will no [...] one group of individuals.BUN/Creatinine Ratio29. 8:43 AM [facility] ([facility])Specimen (Source)Anatomical Location / LateralityCollection Method / VolumeCollection TimeReceived TimeBloodVenous blood specimen / Unknown Venipuncture / Pupqxcr3309/18/2025 7:45 AM EDT1 8:16 AM EDT Narrative Authorizing ProviderResult TypeResult StatusStephanbriseyda Vargas DOL BLOOD ORDERABLESFinal ResultPerforming OrganizationAddressCity/State/ZIP CodePhone Number [facility] ([facility]) [address] [place] [address] * (ABNORMAL) Protime-INR (09/18/2025 4:33 AM EDT)ComponentValueRef RangeTest MethodAnalysis TimePerformed AtPathologist ElobyquvvTgdgstg27.5(H)12.3 - 14.8 Fvazyjv4809/18/2025 6:32 AM [facility] ([place])INR2.19(H)0.90 - 1.10 09/18/2025 6:32 AM [facility] ([facility])Comment: [facility] WARFARIN THERAPY CONDITION ?INR [...] TimeReceived TimeBloodVenous blood specimen / UnknownVenipuncture / Wfqtxez3609/18/2025 4:33 AM EDT1 4:50 AM EDT Narrative Authorizing ProviderResult TypeResult StatusAbhisheaaron BAEZ BLOOD ORDERABLES Final ResultPerforming OrganizationAddressCity/State/ZIP CodePhone Number [facility] ([facility]) [address] [place] [address] * (ABNORMAL) CBC (09/18/2025 4:33 AM EDT)ComponentValueRef RangeTest Method Analysis TimePerformed AtPathologist SignatureAuto WBC8.304.00 - 10.60 10*3/uL 09/18/2025 5:04 AM [facility] ([facility])RBC3.86(L)4.20 - 5.70 10*6/uL 09/18/2025 5:04 AM [facility] ([facility])Ndejrlgdwo70.0(L)13.0 - 17.0 g/dL09/18/2025 5:04 AM [facility] ([facility])Qsvxgrolcg39.5(L)39.0 - 50.0 %09/18/2025 5:04 AM [facility] ([facility])MCV97.282.0 - 98.0 fL 09/18/2025 5:04 AM [facility] ([facility])MCH31.127.0 - 33.0 pg 09/18/2025 5:04 AM [facility] ([facility])MCHC32.032.0 - 35.0 g/dL 09/18/2025 5:04 AM [facility] ([facility])RDW13.211.5 - 15.0 %09/18/2025 5:04 AM [facility] ([facility])Honuxxtig408622 - 400 10*3/uL09/18/2025 5:04 AM [facility] ([facility])Specimen (Source)Anatomical Location / LateralityCollection Method / VolumeCollection TimeReceived TimeBloodVenous blood specimen / UnknownVenipuncture / Hmfsqrm0209/18/2025 4:33 AM EDT1 4:56 AM EDT Narrative Authorizing ProviderResult TypeResult StatusBonaventure Kya BAEZ BLOOD ORDERABLESFinal ResultPerforming OrganizationAddressCity/State/ZIP CodePhone Number [facility] ([facility]) [address] [place] [address] * (ABNORMAL) Anti-Xa (Heparin Level) (09/18/2025 4:33 AM EDT)ComponentValueRef RangeTest MethodAnalysis TimePerformed AtPathologist SignatureAnti-Xa (Heparin)0.80(H)0.3 - 0.7 IU/mL09/18/2025 5:19 AM [facility] ([facility])Comment:Rivaroxaban and Apixaban will interfere with the anti Xa assay used to monitor UFH and LMWH.Specimen (Source)Anatomical Location / LateralityCollection Method / VolumeCollection TimeReceived TimeBloodVenous blood specimen / UnknownVenipuncture / Qrnizsi9609/18/2025 4:33 AM EDT1 4:50 AM EDT Narrative Authorizing ProviderResult TypeResult StatusCarlton Angulo [facility] BLOOD ORDERABLESFinal ResultPerforming OrganizationAddressCity/State/ZIP CodePhone Number [facility] ([facility]) [address] [place] [address] * (ABNORMAL) High Sensitivity Troponin I (09/18/2025 12:01 AM EDT)ComponentValue Ref RangeTest MethodAnalysis TimePerformed AtPathologist SignatureHigh Sensitivity Troponin I2,641(HH)<20 ng/L1 1:12 AM [facility] ([facility])Specimen (Source)Anatomical Location / LateralityCollection Method / VolumeCollection TimeReceived TimeBloodVenous blood specimen / Unknown Venipuncture / Kipumrn3809/18/2025 12:01 AM EDT1 12:35 AM EDT Narrative Authorizing ProviderResult TypeResult StatusCarlton Angulo [facility] BLOOD ORDERABLESFinal ResultPerforming OrganizationAddressCity/State/ZIP CodePhone Number [facility] ([facility]) [address] [place] [address] * Anti-Xa (Heparin Level) (09/17/2025 5:25 PM EDT)ComponentValueRef RangeTest MethodAnalysis TimePerformed AtPathologist SignatureAnti-Xa (Heparin)0.570.3 - 0.7 IU/mL09/17/2025 6:11 PM [facility] ([facility])Comment:Rivaroxaban and Apixaban will interfere with the anti Xa assay used to monitor UFH and LMWH.Specimen (Source)Anatomical Location / LateralityCollection Method / VolumeCollection TimeReceived TimeBloodVenous blood specimen / Unknown Venipuncture / Sbcikmd4909/17/2025 5:25 PM EDT1 5:33 PM EDT Narrative Authorizing ProviderResult TypeResult StatusCarlton BAEZ BLOOD ORDERABLESFinal ResultPerforming OrganizationAddressCity/State/ZIP CodePhone Number [facility]) [address] [place] [address] * (ABNORMAL) High Sensitivity Troponin I (09/17/2025 5:25 PM EDT)ComponentValue Ref RangeTest MethodAnalysis TimePerformed AtPathologist SignatureHigh Sensitivity Troponin I3,331(HH)<20 ng/L1 6:27 PM [facility] ([facility])Specimen (Source)Anatomical Location / LateralityCollection Method / VolumeCollection TimeReceived TimeBloodVenous blood specimen / Unknown Venipuncture / Urvpfij0209/17/2025 5:25 PM EDT1 5:35 PM EDT Narrative Authorizing ProviderResult TypeResult StatusCarlton BAEZ BLOOD ORDERABLESFinal ResultPerforming OrganizationAddressCity/State/ZIP CodePhone Number [facility]) [address] [place] [address] * (ABNORMAL) High Sensitivity Troponin I (09/17/2025 11:57 AM EDT)ComponentValue Ref RangeTest MethodAnalysis TimePerformed AtPathologist SignatureHigh Sensitivity Troponin I3,682(HH)<20 ng/L1 12:53 PM [facility])Specimen (Source)Anatomical Location / LateralityCollection Method / VolumeCollection TimeReceived TimeBloodVenous blood specimen / Unknown Venipuncture / Faenftv6009/17/2025 11:57 AM EDT1 12:15 PM EDT Narrative Authorizing ProviderResult TypeResult StatusCarlton BAEZ BLOOD ORDERABLESFinal ResultPerforming OrganizationAddressCity/State/ZIP CodePhone Number [facility] ([facility]) [address] [place] [address] * (ABNORMAL) Protime-INR (09/17/2025 9:57 AM EDT)ComponentValueRef RangeTest MethodAnalysis TimePerformed AtPathologist FzmcktszpRrgonzl97.6(H)12.3 - 14.8 Iwyyocp7609/17/2025 10:39 AM [facility] ([facility])INR2.19(H)0.90 - 1.10 09/17/2025 10:39 AM [facility] ([facility])Comment: [facility] REC[facility]R FOR WARFARIN THERAPY CONDITION ?INR [...] TimeReceived TimeBloodVenous blood specimen / UnknownVenipuncture / Fuigwon9009/17/2025 9:57 AM EDT1 10:06 AM EDT Narrative Authorizing ProviderResult TypeResult StatusBondeshaun Boland DCLAB BLOOD ORDERABLESFinal ResultPerforming OrganizationAddressCity/State/ZIP CodePhone Number [facility] ([facility]) [address] [place] [address] * Anti-Xa (Heparin Level) (09/17/2025 9:57 AM EDT)ComponentValueRef RangeTest MethodAnalysis TimePerformed AtPathologist SignatureAnti-Xa (Heparin)0.430.3 - 0.7 IU/mL09/17/2025 10:25 AM [facility] ([facility])Comment:Rivaroxaban and Apixaban will interfere with the anti Xa assay used to monitor UFH and LMWH.Specimen (Source)Anatomical Location / LateralityCollection Method / VolumeCollection TimeReceived TimeBloodVenous blood specimen / Unknown Venipuncture / Nxnenmh0909/17/2025 9:57 AM EDT1 10:06 AM EDT Narrative Authorizing ProviderResult TypeResult StatusOmar Jessi [facility] BLOOD ORDERABLES Final ResultPerforming OrganizationAddressCity/State/ZIP CodePhone Number [facility] ([facility]) [address] [place] [phone] * ECG 12 lead (09/17/2025 9:39 AM EDT)ComponentValueRef RangeTest MethodAnalysis TimePerformed AtPathologist SignatureVentricular Utva12PCAMZ MUSEAtrial Rate 241BPMGE MUSEQRS VTBFVZFL520zhTA MUSEQT Mwskzuow126uzUX MUSEQTC CALCULATION(BAZETT)518msGE YXUTU-Higp-09ajoxyxlZC MUSET Wave Rcgo13geqxsxxHU MUSESpecimen (Source)Anatomical Location / LateralityCollection Method / [...] 09/17/2025 10:21:06 AM Authorizing ProviderResult TypeResult StatusAbhisada RAMIREZG ORDERABLESFinal ResultPerforming OrganizationAddressCity/State/ZIP CodePhone Number [facility]USE * aPTT - baseline (09/17/2025 3:50 AM EDT)ComponentValueRef RangeTest Method Analysis TimePerformed AtPathologist CoulippjdbTJU64.225.0 - 35.0 Seconds 09/17/2025 4:37 AM [facility] ([facility])Comment:Clinical significance of the APTT is questionable in the presence of heparin.Specimen (Source) Anatomical Location / LateralityCollection Method / VolumeCollection Time Received TimeBloodVenous blood specimen / UnknownVenipuncture / Unknown 09/17/2025 3:50 AM EDT1 4:00 AM EDT Narrative Authorizing ProviderResult TypeResult StatusBonavemaikol BAEZ BLOOD ORDERABLESFinal ResultPerforming OrganizationAddressCity/State/ZIP CodePhone Number [facility] ([facility]) [address] [place] [address] * (ABNORMAL) High Sensitivity Troponin I (09/17/2025 3:50 AM EDT)ComponentValue Ref RangeTest MethodAnalysis TimePerformed AtPathologist SignatureHigh Sensitivity Troponin I4,674(HH)<20 ng/L1 4:44 AM [facility] ([facility])Specimen (Source)Anatomical Location / LateralityCollection Method / VolumeCollection TimeReceived TimeBloodVenous blood specimen / Unknown Venipuncture / Xsvjofw4009/17/2025 3:50 AM EDT1 4:08 AM EDT Narrative Authorizing ProviderResult TypeResult StatusBonavemaikol MirandaT[facility]bon[facility] CenterLAB BLOOD ORDERABLESFinal ResultPerforming OrganizationAddressCity/State/ZIP CodePhone Number [facility] ([facility]) [address] [place] [address] * (ABNORMAL) Magnesium (09/17/2025 3:50 AM EDT)ComponentValueRef RangeTest MethodAnalysis TimePerformed AtPathologist SignatureMagnesium1.7(L)1.9 - 2.7 mg/dL09/17/2025 4:39 AM [facility] ([facility])Specimen (Source) Anatomical Location / LateralityCollection Method / VolumeCollection Time Received TimeBloodVenous blood specimen / UnknownVenipuncture / Unknown 09/17/2025 3:50 AM EDT1 4:08 AM EDT Narrative Authorizing ProviderResult TypeResult StatusBonavemaikol [facility] BLOOD ORDERABLESFinal ResultPerforming OrganizationAddressCity/State/ZIP CodePhone Number [facility] ([facility]) [address] [place] [address] * Lactic acid, plasma (09/17/2025 3:50 AM EDT)ComponentValueRef RangeTest Method Analysis TimePerformed AtPathologist SignatureLactate1.30.5 - 2.2 mmol/L 09/17/2025 4:24 AM [facility] ([facility])Specimen (Source)Anatomical Location / LateralityCollection Method / VolumeCollection TimeReceived Time BloodVenous blood specimen / UnknownVenipuncture / Fbeugwu5409/17/2025 3:50 AM EDT1 4:00 AM EDT Narrative Authorizing ProviderResult TypeResult StatusBonavemaikol [facility] BLOOD ORDERABLESFinal ResultPerforming OrganizationAddressCity/State/ZIP CodePhone Number [facility] ([facility]) [address] [place] [address] * (ABNORMAL) Comprehensive metabolic panel (09/17/2025 3:50 AM EDT)Component ValueRef RangeTest MethodAnalysis TimePerformed AtPathologist SignatureSodium 677616 - 145 mmol/L1 4:39 AM [facility] ([facility])Potassium 3.4(L)3.5 - 5.1 mmol/L1 4:39 AM [facility] ([facility])Chloride 17459 - 107 mmol/L1 4:39 AM [facility] ([facility])KC22727 - 31 mmol/L1 4:39 AM [facility] ([facility])Anion Dss690 - 20 mmol/L1 4:39 AM [facility] ([facility])BUN33(H)7 - 25 mg/dL 09/17/2025 4:39 AM [facility] ([facility])Creatinine1.040.70 - 1.30 mg/dL09/17/2025 4:39 AM [facility] ([facility])BUN/Creatinine Ratio31.7 09/17/2025 4:39 AM [facility] ([facility])Spyibaw808(H)70 - 100 mg/dL 09/17/2025 4:39 AM [facility] ([facility])Calcium8.78.6 - 10.3 mg/dL 09/17/2025 4:39 AM [facility] ([facility])LWK1100 - 39 U/L1 4:39 AM [facility] ([facility])ALT (SGPT)167 - 52 U/L1 4:39 AM [facility] ([facility])Alkaline Yawsoweqgmq2826 - 104 U/L1 4:39 AM [facility] ([facility])Total Protein6.06.0 - 8.3 g/dL09/17/2025 4:39 AM [facility] ([facility])Albumin3.83.5 - 5.7 g/dL09/17/2025 4:39 AM [facility] ([facility])Total Bilirubin1.1(H)0.3 - 1.0 mg/dL09/17/2025 4:39 AM [facility] ([facility])eGFR69.1>60.0 mL/min/1.73m* 4:39 AM [facility] ([facility])Comment:[facility]???s estimated glomerular filtration rate (eGFR) will no [...] TimeBloodVenous blood specimen / Unknown Venipuncture / Ufssdxf8709/17/2025 3:50 AM EDT1 4:08 AM EDT Narrative Authorizing ProviderResult TypeResult StatusBonavemaikol [facility] BLOOD ORDERABLESFinal ResultPerforming OrganizationAddressCity/State/ZIP CodePhone Number [facility]) [address] [place] [address] * (ABNORMAL) B-type natriuretic peptide (09/17/2025 3:50 AM EDT)ComponentValue Ref RangeTest MethodAnalysis TimePerformed AtPathologist SignatureBNP1,209(H)0 - 100 pg/mL09/17/2025 4:38 AM [facility])Specimen (Source) Anatomical Location / LateralityCollection Method / VolumeCollection Time Received TimeBloodVenous blood specimen / UnknownVenipuncture / Unknown 09/17/2025 3:50 AM EDT1 4:08 AM EDT Narrative Authorizing ProviderResult TypeResult StatusBonavemaikol [facility] BLOOD ORDERABLESFinal ResultPerforming OrganizationAddressCity/State/ZIP CodePhone Number [facility]) [address] [place] [address] * (ABNORMAL) CBC (09/17/2025 3:50 AM EDT)ComponentValueRef RangeTest Method Analysis TimePerformed AtPathologist SignatureAuto WBC9.654.00 - 10.60 10*3/uL 09/17/2025 4:19 AM [facility] ([facility])RBC3.74(L)4.20 - 5.70 10*6/uL 09/17/2025 4:19 AM [facility] ([facility])Dawqdgwabj51.6(L)13.0 - 17.0 g/dL09/17/2025 4:19 AM [facility] ([facility])Kgxirsekdg76.5(L)39.0 - 50.0 %09/17/2025 4:19 AM [facility] ([facility])MCV94.982.0 - 98.0 fL 09/17/2025 4:19 AM [facility] ([facility])MCH31.027.0 - 33.0 pg 09/17/2025 4:19 AM [facility] ([facility])MCHC32.732.0 - 35.0 g/dL 09/17/2025 4:19 AM [facility] ([facility])RDW13.311.5 - 15.0 %09/17/2025 4:19 AM [facility] ([facility])Rfqejhzvq268347 - 400 10*3/uL09/17/2025 4:19 AM [facility] ([facility])Specimen (Source)Anatomical Location / LateralityCollection Method / VolumeCollection TimeReceived TimeBloodVenous blood specimen / UnknownVenipuncture / Utvgrac4909/17/2025 3:50 AM EDT1 4:08 AM EDT Narrative Authorizing ProviderResult TypeResult StatusBonaventure KyaB[facility] BLOOD ORDERABLESFinal ResultPerforming OrganizationAddressCity/State/ZIP CodePhone Number [facility] ([facility]) [address] [facility] [place] [address] documented in this encounter Visit Diagnoses Diagnosis NSTEMI (non-ST elevated myocardial infarction) (CMS/HCC)- Primary Acute myocardial infarction, subendocardial infarction, episode of care unspecified NSTEMI (non-ST elevated myocardial infarction) (CMS/HCC) Acute myocardial infarction, subendocardial infarction, episode of care unspecified S/P drug eluting coronary stent placement Chronic atrial fibrillation ([facility]) Atrial fibrillation Morbid obesity with BMI of 40.0-44.9, adult ([facility]) Hyperlipidemia Other and unspecified hyperlipidemia CAD (coronary artery disease) Coronary atherosclerosis of unspecified type of vessel, [place] or graft Chronic atrial fibrillation ([facility]) Atrial fibrillation Presence of biventricular cardiac pacemaker SAULO (obstructive sleep apnea) Obstructive sleep apnea (adult) (pediatric) 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) ([facility]) Class 1 obesity due to excess calories with serious comorbidity and body mass index (BMI) of 34.0 to 34.9 in adult COPD without exacerbation ([facility]) NSTEMI (non-ST elevated myocardial infarction) ([facility]) Acute myocardial infarction, subendocardial infarction, episode of care unspecified documented in this encounter Admitting Diagnoses Diagnosis NSTEMI (non-ST elevated myocardial infarction) ([facility]) Acute myocardial infarction, subendocardial infarction, episode of care unspecified documented in this encounter Administered Medications Medication OrderMAR ActionAction DateDoseRateSite acetaminophen (Tylenol) tablet 650 mg 650 mg, oral, Every 6 hours PRN, mild pain (1-3 pain score), headaches, fever greater than or equalto 38 degrees Celsius, (1-3), Starting on 09/17/25 at 0302, For 99 days aspirin chewable tablet 81 mg 81 mg, oral, Daily with breakfast, First dose on 09/18/25 at 0800, For 99 days Given09/20/2025 9:16 AM EDT81 wuPswks3009/19/2025 8:58 AM EDT81 uaApfqu1909/18/2025 8:28 AM EDT81 mg atorvastatin (Lipitor) tablet 80 mg 80 mg, oral, Nightly, First dose on Thu09/17/25 at 2200, For 99 days Given09/19/2025 8:18 PM EDT80 slJvaro6609/18/2025 9:35 PM EDT80 ynYbvbr5609/17/2025 9:26 PM EDT80 mg carvedilol (Coreg) tablet 6.25 mg 6.25 mg, oral, 2 times daily with meals, First dose on 09/17/25 at 0845, For 99 days Given09/20/2025 9:16 AM EDT6.25 jyVsura5109/19/2025 8:18 PM EDT6.25 mgGiven 09/19/2025 8:56 AM EDT6.25 mg clopidogrel (Plavix) tablet 75 mg 75 mg, oral, Daily, First dose on Thu09/20/25 at 1000, For 99 days Given09/20/2025 9:16 AM EDT75 mg clopidogrel (Plavix) tablet As needed, Starting on Thu09/19/25 at 1714, Intraprocedure Given09/19/2025 5:14 PM QBO184 mg DULoxetine (Cymbalta) DR capsule 30 mg 30 mg, oral, Daily, First dose on Thu09/18/25 at 1000, For 99 days, Do not crush or chew. Given09/20/2025 9:16 AM EDT30 mqYesnt4509/19/2025 9:00 AM EDT30 vyQrhum3609/18/2025 9:55 AM EDT30 mg fentaNYL (Sublimaze) injection As needed, Starting on Thu09/19/25 at 1534, Intraprocedure Given09/19/2025 4:11 PM EDT12.5 hkmDncsm12/21/2025 3:34 PM EDT12.5 mcg ferrous sulfate tablet 325 mg 325 mg, oral, Daily with breakfast, First dose on Thu09/17/25 at 0845 Given09/20/2025 9:16 AM YFA292 mfVklak4309/19/2025 8:57 AM TMW903 mgGiven 09/18/2025 8:27 AM PWL686 mg furosemide (Lasix) tablet 20 mg 20 mg, oral, 2 times daily with meals, First dose (after last modification) on Thu09/20/25 at 1700, For 95 days heparin (porcine) injection As needed, Starting on Thu09/19/25 at 1553, Intraprocedure Given09/19/2025 4:40 PM EDT3,000 UnhmqLsmlp40/21/2025 4:21 PM EDT1,000 Units Given09/19/2025 3:53 PM EDT2,000 Units heparin infusion 100 units/mL in D5W 0-28 [...] Thu09/18/2025 at 1052 until manually unheld Rate/Dose Plwmpo7409/18/2025 5:43 AM EDT14 Units/kg/hr14 mL/hrNew Bag09/17/2025 6:59 PM EDT15 Units/kg/hr15 mL/hrRate/Dose Svxjdy7109/17/2025 6:37 AM EDT15 Units/kg/hr15 mL/hr iodixanol (VISIPaque) 320 mg iodine/mL injection As needed, Starting on Thu09/19/25 at 1705, Intraprocedure Given09/19/2025 5:05 PM QPT856 mL midazolam (Versed) injection As needed, Starting on Thu09/19/25 at 1534, Intraprocedure Given09/19/2025 4:12 PM EDT0.5 kjFztke9909/19/2025 3:34 PM EDT0.5 mg montelukast (Singulair) tablet 10 mg 10 mg, oral, Daily, First dose on Thu09/18/25 at 1000, For 99 days Given09/20/2025 9:16 AM EDT10 foQaqnd3009/19/2025 9:00 AM EDT10 hnVqufs6609/18/2025 9:55 AM EDT10 mg pantoprazole (ProtoNix) EC tablet 40 mg 40 mg, oral, Daily at 7am, First dose on Thu09/18/25 at 0745, Do not crush, chew, or split., Indication: Stress Ulcer Prophylaxis Given09/20/2025 6:07 AM EDT40 zrOpeec8309/19/2025 6:12 AM EDT40 otDvcle5409/18/2025 8:27 AM EDT40 mg sennosides-docusate sodium (Christina-Colace) 8.6-50 mg per tablet 1 tablet 1 tablet, oral, 2 times daily PRN, constipation, Starting on Thu09/17/25 at 0302, For 99 days sodium chloride 0.9 % infusion Continuous PRN, Starting on Thu09/19/25 at 1528, Intraprocedure New Bag09/19/2025 3:28 PM EDT50 mL/hr50 mL/hr sodium chloride flush 10 mL 10 mL, [...] 30 minutes apart). Given09/20/2025 3:03 PM EDT1 jSukgg3409/20/2025 6:07 AM EDT1 g verapamil (Isoptin) injection As needed, Starting on Thu09/19/25 at 1543, Intraprocedure Given09/19/2025 3:43 PM EDT2.5 mgdocumented in this encounter Active and Recently Administered Medications Times are shown in EDT.Medication Order// aspirin chewable tablet 81 mg 81 mg, oral, Daily with breakfast, First dose on Thu09/18/25 at 0800, For 99 days * 0828 (Given - Provider: Kelli Gupta, RN) * 0858 (Given - Provider: Kelli Gupta, RN) * 0916 (Given - Provider: Olivia Luna, RN) atorvastatin (Lipitor) tablet 80 mg 80 mg, oral, Nightly, First dose on Thu09/17/25 at 2200, For 99 days * 213 (Given - Provider: Mian Lewis, RN) * 2017 (Given - Provider: Mian Lewis, RN) carvedilol (Coreg) tablet 6.25 mg 6.25 mg, oral, 2 times daily with meals, First dose on 09/17/25 at 0845, For 99 days * 0827 (Given - Provider: Kelli Gupta, MARYAN) * 1700 (Given - Provider: Kelli Gupta, MARYAN) * 0856 (Given - Provider: Kelli Gupta RN) * 2018 (Given - Provider: Mian Lewis, RN) * 0916 (Given - Provider: Olivia Luna, RN) * 1800 (Canceled Entry - Provider: Automatic Discharge Provider - Comment: Automatically canceled at discontinue of medication order) clopidogrel (Plavix) tablet 75 mg 75 mg, oral, Daily, First dose on Thu09/20/25 at 1000, For 99 days * 0916 (Given - Provider: Olivia Luna, RN) DULoxetine (Cymbalta) DR capsule 30 mg 30 mg, oral, Daily, First dose on Thu09/18/25 at 1000, For 99 days, Do not crush or chew. * 0955 (Given - Provider: Kelli Gupta, RN) * 0900 (Given - Provider: Kelli Gupta, RN) * 0916 (Given - Provider: Olivia Luna, RN) ferrous sulfate tablet 325 mg 325 mg, oral, Daily with breakfast, First dose on 09/17/25 at 0845 * 0827 (Given - Provider: Kelli Gupta, RN) * 0857 (Given - Provider: Kelli Gupta, RN) * 0916 (Given - Provider: Olivia Luna, RN) furosemide (Lasix) tablet 20 mg (CANCELED) 20 mg, oral, Daily, First dose on Thu09/17/25 at 1000, For 99 days * 0955 (Given - Provider: Kelli Gupta RN) * 0900 (Given - Provider: Kelli Gupta RN) * 0916 (Given - Provider: Olivia Luna, RN) furosemide (Lasix) tablet 20 mg 20 mg, [...] * 0917 (New Bag - Provider: Olivia Luna, RN) * 0959 (Stopped - Provider: Olivia Luna, RN) * 1043 (New Bag - Provider: Olivia Luna, RN) * 1143 (Stopped - Provider: Olivia Luna, RN) montelukast (Singulair) tablet 10 mg 10 mg, oral, Daily, First dose on Thu09/18/25 at 1000, For 99 days * 0955 (Given - Provider: Kelli Gupta RN) * 0900 (Given - Provider: Kelli Gupta RN) * 0916 (Given - Provider: Olivia Luna, RN) pantoprazole (ProtoNix) EC tablet 40 mg 40 mg, oral, Daily at 7am, First dose on Thu09/18/25 at 0745, Do not crush, chew, or split., Indication: Stress Ulcer Prophylaxis * 0827 (Given - Provider: Kelli Gupta, MARYAN) * 0612 (Given - Provider: Mian Lewis, RN) * 0607 (Given - Provider: Mian Lewis, RN) phytonadione (Vitamin K) split tablet 2.5 mg (COMPLETED) 2.5 mg, oral, Once, On Thu09/18/25 at 1230, For 1 dose * 1656 (Given - Provider: Kelli Gupta, MARYAN - Comment: med did not arrive until [...] chew. 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) * 0607 (Given - Provider: Mian Lewis RN) * 1503 (Given - Provider: Olivia Luna RN) sulfur hexafluoride microsphr (Lumason) injection 24.28 mg (COMPLETED) 24.28 mg (2 mL), intravenous, Once in imaging, Starting on Thu09/18/25 at 1043, For 1 dose * 1043 (Given - Provider: Shawn Mena ARELIS) Medication Order// heparin infusion 100 units/mL in D5W 0-28 [...] provider - Provider: Automatic Discharge Provider) Medication Order51 acetaminophen (Tylenol) tablet 650 mg 650 mg, [...] And Saline lock IV (CANCELED) Once, On 09/17/25 at 0303, For 1 occurrence And sodium chloride flush 10 mLJump to med 10 mL, intravenous, Every 8 hours PRN, line care, Starting on 09/17/25 at 0302, For 99 days documented in this encounter Care Teams Team MemberRelationshipSpecialtyStart DateEnd Date Rio Frey MD [facility] [place] [address] PCP - Awcokys11/23/22documented as of this encounter
--- OUTSIDE RECORDS SUMMARY | 2025-09-28 11:40 | XMS_ITS | Encounter Summary ---
Author Organization [facility] Address [address] [place] [address] Care Team Providers Care Screen Printing Stencil Preparer Name Role Phone Rio Frey MD Primary Care Provider [phone] Reason for Visit * ReasonCommentsFollow-upPatient is here today for a follow up [facility] admission S/P NSTEMICoronary Artery DiseaseCongestive Heart FailureHypertensionDVTAtrial FibrillationCardiomyopathyValve DisorderMitral valve disorderPulmonary embolismHyperlipidemiaShortness of BreathPatient states its very hard to breath over the last 2 days with and without activity.FatigueIncreased greatly Encounter Details DateTypeDepartmentCare Team (Latest Contact Info)Vijgyuadiim58/30/2025 11:[address] [facility] [address] [place] [address] Kiley Hurley, JOE [address] [place] [address] Dyspnea on exertion (Primary Dx) Social History Tobacco UseTypesPacks/DayYears UsedDateSmoking Tobacco: XpffaxPgmtwcpdop5841 - 1984Smokeless Tobacco: NeverAlcohol UseStandard Drinks/WeekCommentsNot Currently 0 (1 standard drink = 0.6 oz pure alcohol)[facility] UtilitiesAnswerDate RecordedIn the past 12 months [...] were you homeless or living in a alf (including now)? No09/17/2025Hunger Vital SignAnswerDate RecordedWithin the past 12 months, you worried that your food would run out before you got the money to buymore.Never true09/17/2025Ran Out of Food in the Last YearNot on file09/17/2025Sex and Gender InformationValueDate RecordedSex Assigned at BsmmaLaci27/09/2025 2:41 PM EDTLegal MeiPzvb9905/28/2022 10:25 PM EDTGender FiowwffkDfno35/09/2025 2:41 PM EDT Sexual OrientationHeterosexual or Akqslbki96/09/2025 2:41 PM EDTdocumented as of this encounter Last Filed Vital Signs Vital SignReadingTime TakenCommentsBlood Npbanbpj216/7009/28/2025 1:08 PM EDT Rnlqs662609/28/2025 11:47 AM EDTTemperature--Respiratory Rate--Oxygen Saturation 100%09/28/2025 11:47 AM EDTInhaled Oxygen Concentration--Dfauym59.2 kg (212 lb) 09/28/2025 11:47 AM GDUXnmbpf617.7 cm (5' 8 )09/28/2025 11:47 AM EDTBody Mass Index32.231 11:47 AM EDTdocumented in this encounter Functional Status * BPAnswerDate of YmhnkvlejiYuqyis988/7009/28/2025 1:08 PM Kiley De Paz CNP * PulseAnswerDate of ZkpqsiwgtaJdgamb6946/30/2025 11:47 AM Virginia Johnston MA * Patient PositionAnswerDate of SuufibekvvSsbamhGhkhzfjk55/30/2025 1:08 PM EDT Kiley Hurley CNP * BPAnswerDate of EdainhwpmwOpezus616/7009/28/2025 1:08 PM Kiley De Paz CNP * PulseAnswerDate of IiywjtipsbHvxbtw4565/30/2025 11:47 AM Virginia Johnston MA * DwY4MeekmsYvgx of LvkabbhrvmXdwdbe81873/30/2025 11:47 AM Virginia Johnston MA * BP LocationAnswerDate of AssessmentAuthorLeft arm09/28/2025 1:08 PM Kiley De Paz CNP * Patient PositionAnswerDate of JaxcwdicbcTzbepdBoekrfyk15/30/2025 1:08 PM EDT Kiley Hurley CNP documented as of this encounter Plan of Treatment DateTypeDepartmentCare Team (Latest Contact Info)Iukndpjqjcl05/06/2025 2:[address] [facility] [address] [place] [address] Harman Anders CNP [address] [place] [address] NameTypePriorityAssociated DiagnosesOrder ScheduleCBCLabRoutine Dyspnea on exertion Expected: 09/28/2025 (Approximate), Expires: 09/28/2026omprehensive metabolic panelLabRoutine Dyspnea on exertion Expected: 09/28/2025 (Approximate), Expires: 09/28/2026-type natriuretic peptideLabRoutine Dyspnea on exertion Expected: 09/28/2025 (Approximate), Expires: 09/28/2026XR chest 2 viewsImaging Routine Dyspnea on exertion Expected: 09/28/2025, Expires: 09/28/2026documented as of this encounter Visit Diagnoses Diagnosis Dyspnea on exertion- Primary Other dyspnea and respiratory abnormality documented in this encounter Care Teams Team MemberRelationshipSpecialtyStart DateEnd Date Rio Frey MD [address] [place] [address] PCP - Zrgajoq30/23/22documented as of this encounter
--- OUTSIDE RECORDS SUMMARY | 2025-09-28 13:12 | XMS_ITS | Encounter Summary ---
Author Organization [facility] Address [address] [place] [address] Care Team Providers Care Cushion Maker Name Role Phone Rio Frey MD Primary Care Provider [phone] Encounter Details DateTypeDepartmentCare Team (Latest Contact Info)Ewfnllcxgoa01/19/2025Travel Social History Tobacco UseTypesPacks/DayYears UsedDateSmoking Tobacco: YalffcZlhjdctcqp5554 - 1984Smokeless Tobacco: NeverAlcohol UseStandard Drinks/WeekCommentsNot Currently 0 (1 standard drink = 0.6 oz pure alcohol)[facility] UtilitiesAnswerDate RecordedIn the past 12 months [...] were you homeless or living in a halfway (including now)? No09/17/2025Hunger Vital SignAnswerDate RecordedWithin the past 12 months, you worried that your food would run out before you got the money to buymore.Never true09/17/2025Ran Out of Food in the Last YearNot on file09/17/2025Sex and Gender InformationValueDate RecordedSex Assigned at HeukiBorz90/09/2025 2:41 PM EDTLegal AabZafy7805/28/2022 10:25 PM EDTGender JodtqldtDjct42/09/2025 2:41 PM EDT Sexual OrientationHeterosexual or Fcsucrfp98/09/2025 2:41 PM EDTdocumented as of this encounter Functional Status * QuestionAnswerDate of HggcpaaggiAzdlpdMF014/7409/17/2025 8:45 PM Viktoria Amor RNPulse6009/17/2025 8:45 PM Viktoria Amor RNHeart Rate Source Pvjebzx8209/17/2025 8:45 PM Viktoria Amor RNPatient PositionLying 09/17/2025 8:45 PM Viktoria Amor RN * Contreras Fall RiskQuestionAnswerDate of AssessmentAuthorHistory of Falling, Immediate or Within 3 Iohyyw418 8:45 PM Viktoria Amor RN Secondary Zjcpgaqaw1937/19/2025 8:45 PM Viktoria Amor, RNAmbulatory Aid 151 8:45 PM Viktoria Amor RNIntravenous Therapy/Heparin Lock 8:45 PM Viktoria Amor RNGait/Uxntnpgrfiwz6566/19/2025 8:45 PM Viktoria Amor RNMental Lvckrv762 8:45 PM Viktoria Amor RNMorse Fall Risk Aqptw500109/17/2025 8:45 PM Viktoria Amor RN * Lorenzo ScaleQuestionAnswerDate of AssessmentAuthorBraden No Risk Interventions Continue to assess patient according to level of care09/17/2025 7:20 AM EDT Kelli Gupta, RNSensory Xbuysrhlgvc103/19/2025 8:45 PM Viktoria Amor RNMoisture41 8:45 PM Viktoria Amor, RNActivity3 09/17/2025 8:45 PM Viktoria Amor RNMobility31 8:45 PM Viktoria Patel RNNutrition21 8:45 PM Viktoria Amor RN Friction and Mwvnh278 8:45 PM Viktoria Amor RNBraden Scale Fsaym296809/17/2025 8:45 PM Viktoria Amor RN * [place] Fall Risk InterventionsQuestionAnswerDate of AssessmentAuthor [place] Fall Risk YfaajiugulfztItezeqot81/19/2025 8:45 PM Viktoria Amor RN * Pain Assessment TimerQuestionAnswerDate of AssessmentAuthorRestart Pain Assessment IrzobVka72/19/2025 8:45 PM Viktoria Amor RN * Sepsis Model ScoresQuestionAnswerDate of AssessmentAuthorEarly Detection of Sepsis Score1.011 11:46 PM Bekah LiangqEarly Detection of Sepsis Score0.210 11:46 PM Bekah Liangq * Pain AssessmentQuestionAnswerDate of AssessmentAuthorPain Interventions Rest;Relaxation azfardqcw29/19/2025 8:45 PM Viktoria Amor RNPatient's Stated Pain GoalNo pain09/17/2025 8:45 PM Viktoria Amor RNPain AssessmentNo/denies pain09/17/2025 8:45 PM Viktoria Amor RN * Audit Alcohol ScreeningQuestionAnswerDate of AssessmentAuthorHow often do you have a drink containing alcohol? 2:42 AM Margie Bledsoe RN How many standard drinks containing alcohol do you have on a typical day?No 09/17/2025 2:42 AM Margie Bledsoe RNHow often do you have six or more drinks on one occasion? 2:42 AM Margie Bledsoe RNAudit-C Swwny045 2:42 AM Margie Bledsoe RN * Deterioration Index ScoreQuestionAnswerDate of AssessmentAuthorDeterioration Index Score25.0709/17/2025 11:46 PM Rodney Liang * Head, Ears, Eyes, Nose, and Throat (HEENT)QuestionAnswerDate of Assessment AuthorHead, Ears, Eyes, Nose, and Throat (WDL)X1 8:45 PM Viktoria Patel RNR EyeMildly impaired cvsxoh8009/17/2025 8:45 PM Viktoria Patel RNL EyeMildly impaired orafmc3709/17/2025 8:45 PM Viktoria Patel RNR EarMildly impaired zqgscrt1909/17/2025 8:45 PM Viktoria Patel RNL EarMildly impaired xrxsfku6109/17/2025 8:45 PM Viktoria Patel RNVoiceWeak09/17/2025 2:30 AM Viktoria Amor RNTeeth Dentures upper09/17/2025 8:45 PM Viktoria Amor RNDenture StatusIntact 09/17/2025 7:20 AM Kelli Mariscal RN * QuestionAnswerDate of AssessmentAuthorMAP (mmHg)8909/17/2025 8:45 PM Viktoria Patel RN * Short Portable Mental StatusQuestionAnswerDate of AssessmentAuthorWhat are the date, month, year? 8:45 PM Viktoria Amor RNWhat is the day of the week? 8:45 PM Viktoria Amor RNWhat is the name of this place? 8:45 PM Viktoria Amor RNHow old are you?0 09/17/2025 8:45 PM Viktoria Amor RNWhen were you born? 8:45 PM Viktoria Amor RNWho is the current president? 8:45 PM Viktoria Amor RNWho was the president before him? 8:45 PM Viktoria Amor RN * Fall Risk LevelQuestionAnswerDate of AssessmentAuthorMobility zoneLow (Green Zone)09/17/2025 8:45 PM Viktoria Amor RNMorse fall risk zoneModerate (Yellow Zone)09/17/2025 8:45 PM Viktoria Amor RNMental status questionaire zoneLow (Green Zone)09/17/2025 8:45 PM Viktoria Amor RN * Skin Assessment Sign offQuestionAnswerDate of AssessmentAuthorDual Sign-off - Admission/Acerjrgawyuhcos26/19/2025 2:30 AM Viktoria Amor RNAny new wounds identified on admission/transfer?Yes09/17/2025 2:30 AM Viktoria Amor RNProvider notified of new vznkaUtt71/19/2025 2:30 AM Viktoria Amor RN * QuestionAnswerDate of YsvzsxizasSvzmbyMqR530208/19/2025 8:45 PM Viktoria Amor RN * QuestionAnswerDate of GtigeveuvpZrmadvTC398/7409/17/2025 8:45 PM Viktoria Amor RNTemp97. 8:45 PM Viktoria Amor RNTemp srcTemporal 09/17/2025 8:45 PM EDViktoria Duncan, YLQpryj6386/19/2025 8:45 PM EDT Viktoria Ying, EXEzek0499/19/2025 8:45 PM Viktoria Amor, RNHeart Rate UmjgnsFogwebk27/19/2025 8:45 PM EDViktoria Duncan, RNBP LocationLeft arm09/17/2025 8:45 PM Viktoria Amor, RNBP IcpygnSqhebxbvk27/19/2025 8:45 PM Viktoria Amor RNCardiac RhythmV-Paced09/17/2025 8:45 PM EDT Viktoria Ying, RNPulse rate from Plethysmogram (bpm)5909/17/2025 8:45 PM Viktoria Amor RNPatient QftnkuvsFsxpl87/19/2025 8:45 PM Viktoria Amor, RN * QuestionAnswerDate of AssessmentAuthorSwallowAble to swallow solids and liquids without lopwmxtkdu00/19/2025 7:20 AM Kelli Mariscal, MARYAN * QuestionAnswerDate of AssessmentAuthorBilateral Breath SoundsDiminished 09/17/2025 8:45 PM Viktoria Amor RNRespiratory PkfcofeRfujlw92/19/2025 8:45 PM Viktoria Amor RNChest AssessmentChest expansion symmetrical 09/17/2025 8:45 PM Viktoria Amor, AVHqckbUvajjugzpw04/19/2025 8:45 PM Viktoria Amor, RNRespiratory FnywipTcxumdmjq37/19/2025 8:45 PM EDT Viktoria Ying, MARYANRespiratory Depth/NcbwiqDevriab19/19/2025 8:45 PM EDT Viktoria Ying RNDyspnea OccurrenceWith zfucxvxr40/19/2025 8:45 PM EDT Viktoria Ying, RN * QuestionAnswerDate of AssessmentAuthorCardiac WoczggbqpdRxffepg40/19/2025 8:45 PM Viktoria Amor RNTelemetry Monitor ExjgwoAa24/19/2025 8:45 PM EDT Viktoria Ying RNTelemetry Box NumberW 342256 8:45 PM EDT Viktoria Ying RNCardiac UzmydqgnOsav09/19/2025 7:20 AM Kelli Mariscal RNHeart EjmpewLopdpo14/19/2025 8:45 PM Viktoria Amor RN * QuestionAnswerDate of AssessmentAuthorPacemaker DfrbSfuimazrp85/19/2025 8:45 PM Viktoria Amor RN * GastrointestinalQuestionAnswerDate of AssessmentAuthorGastrointestinal (WDL) WDL1 8:45 PM Viktoria mAor RN * Peripheral VascularQuestionAnswerDate of AssessmentAuthorPeripheral Vascular (WDL)X1 8:45 PM Viktoria Amor RNCapillary RefillLess than/equal to 2 seconds (All extremities)09/17/2025 8:45 PM Viktoria Amor RNPulsesRight radial;Left radial;Right posterior tibial;Left posterior tibial;Right pedal;Left pedal1 8:45 PM Viktoria Amor RN MuvaoxblTmvt62/19/2025 8:45 PM Viktoria Amor RNEdemaRight lower extremity;Left lower oyfrgacop90/19/2025 8:45 PM Viktoria Amor RN Peripheral Vascular Additional AssessmentsRight lower extremity;Left lower hrtamfnvi72/19/2025 7:20 AM Kelli Mariscal RN * RUE Neurovascular AssessmentQuestionAnswerDate of AssessmentAuthorRight Radial Pulse+ 8:45 PM Viktoria Amor RN * LUE Neurovascular AssessmentQuestionAnswerDate of AssessmentAuthorLeft Radial Pulse+ 8:45 PM Viktoria Amor RN * RLE Neurovascular AssessmentQuestionAnswerDate of AssessmentAuthorRLE Edema+1 09/17/2025 8:45 PM Viktoria Amor RNRLE Capillary RefillLess than/equal to 2 nwaiogw1109/17/2025 8:45 PM Viktoria Amor RNRLE ColorAppropriate for ncnlhyivu73/19/2025 8:45 PM Viktoria Amor RNRLE Temperature/MoistureWarm;Dry09/17/2025 8:45 PM Viktoria Amor RNRight Posterior Tibial Pulse+ 8:45 PM Viktoria Amor RNRight Pedal Pulse+ 8:45 PM Viktoria Amor RN * LLE Neurovascular AssessmentQuestionAnswerDate of AssessmentAuthorLLE Edema+1 09/17/2025 8:45 PM Viktoria Amor RNLLE Capillary RefillLess than/equal to 2 uahmygn3809/17/2025 8:45 PM Viktoria Amor RNLLE ColorAppropriate for /19/2025 8:45 PM Viktoria Amor RNLLE Temperature/MoistureWarm;Dry09/17/2025 8:45 PM Viktoria Amor RNLeft Posterior Tibial Pulse+ 8:45 PM Viktoria Amor RNLeft Pedal Pulse+ 8:45 PM Viktoria Amor RN * MusculoskeletalQuestionAnswerDate of AssessmentAuthorRUEFull movement 09/17/2025 8:45 PM Viktoria Amor RNRLEWeakness09/17/2025 8:45 PM Viktoria Patel RNLUEFull /19/2025 8:45 PM Viktoria Amor RNLLEWeakness09/17/2025 8:45 PM EDTSlawinski, Viktoria, RNMusculoskeletal (WDL)X 09/17/2025 8:45 PM Viktoria Amor, MARYAN * PsychosocialQuestionAnswerDate of AssessmentAuthorPsychosocial (WDL)WDL 09/17/2025 8:45 PM Viktoria Amor RN * Contreras Fall RiskQuestionAnswerDate of AssessmentAuthorHistory of Falling, Immediate or Within 3 Gabbir640 8:45 PM Viktoria Amor RN Secondary Zsnryalsf2378/19/2025 8:45 PM Viktoria Amor, RNAmbulatory Aid 8:45 PM Viktoria Amor RNIntravenous Therapy/Heparin Lock 8:45 PM Viktoria Amor RNGait/Gucxppnxxmtc5785/19/2025 8:45 PM Viktoria Amor RNMental Vssvmp515 8:45 PM Viktoria Amro RNMorse Fall Risk Ggggl193909/17/2025 8:45 PM Viktoria Amor, MARYAN * Lorenzo ScaleQuestionAnswerDate of AssessmentAuthorBraden No Risk Interventions Continue to assess patient according to level of care09/17/2025 7:20 AM EDT Kelli Gupta, STEPHENensory Qlfkqgngfjd879/19/2025 8:45 PM Viktoria Amor, TMBptyqvto021/19/2025 8:45 PM Viktoria Amor, RNActivity3 09/17/2025 8:45 PM Viktoria Amor, HPBpzwsqzo363/19/2025 8:45 PM EDT Viktoria Ying RNNutrition21 8:45 PM Viktoria Amor RN Friction and Hxszw879 8:45 PM Viktoria Amor RNBraden Scale Uuirx586309/17/2025 8:45 PM EDTSlawinski, Viktoria, RN * Charting TypeQuestionAnswerDate of AssessmentAuthorCharting TypeShift owrnudvkex07/19/2025 8:45 PM Viktoria Amor RN * Values/BeliefsQuestionAnswerDate of AssessmentAuthorCultural Requests During Qsgauxvbozgcwuswqvn73/19/2025 2:42 AM Margie Bledsoe RNSpiritual Requests During Edqgimuyetoiqdnfjcd72/19/2025 2:42 AM Margie Bledsoe, MARYAN * GenitourinaryQuestionAnswerDate of AssessmentAuthorGenitourinary (WDL)WDL 09/17/2025 8:45 PM Viktoria Amor RN * Patient MonitoringQuestionAnswerDate of AssessmentAuthorFrequency of Checks Twice per hour, ugkydyrg38/19/2025 8:45 PM Viktoria Amor RN * Safe EnvironmentQuestionAnswerDate of AssessmentAuthorArm Bands OnID;Fall 09/17/2025 8:45 PM Viktoria Amor RNSide Rails/Bed Safety2/ 8:45 PM Viktoria Amor RNBed NcqsgoHi54/19/2025 8:45 PM Viktoria Amor RNThe Patient's Environment is DcbdJni23/19/2025 8:45 PM Viktoria Amor RN * MobilityQuestionAnswerDate of ZkqychuduzRmvhdeVtjlnjiojz68/19/2025 8:45 PM Viktoria Patel, RNActivity PerformedResting in bed;Turn;Walked to bathroom 09/17/2025 8:45 PM Viktoria Amor RNRepositionedTurns self09/17/2025 8:45 PM Viktoria Amor RNLevel of AssistanceModerate assist, patient does 50-74%09/17/2025 8:45 PM Viktoria Amor RNHead of Bed ElevatedSelf bntfvzayw96/19/2025 8:45 PM Viktoria Amor RNHeels/FeetFoot of bed elevated;Heels elevated off bed09/17/2025 8:45 PM Viktoria Amor RN Range of MotionActive;All /19/2025 8:45 PM Viktoria Amor RNAnti-Embolism DevicesBilateral;Sequential compression devices, below knee 09/17/2025 8:45 PM Viktoria Amor RNAnti-Embolism InterventionOff 09/17/2025 8:45 PM Viktoria Amor RNPatient's mobility zoneZone 5 09/17/2025 8:45 PM Viktoria Amor RNPositioning FrequencyAble to turn self09/17/2025 8:45 PM Viktoria Amor RN * HygieneQuestionAnswerDate of AssessmentAuthorSkin CareMoisture barrier 09/17/2025 8:45 PM Viktoria Amor RNHygienePeri care09/17/2025 8:45 PM Viktoria Amor RNOral CarePer self09/17/2025 8:45 PM Viktoria Amor RNLevel of AssistanceModerate sgbicn6709/17/2025 8:45 PM Viktoria Amor RNIs Patient Total Care?No09/17/2025 8:45 PM Viktoria Amor RN Incontinence Protective DevicesAbsorbent pad09/17/2025 8:45 PM Viktoria Amor RN * PrecautionsQuestionAnswerDate of AssessmentAuthorPrecautions Aspiration;Bleeding;Fall09/17/2025 8:45 PM Viktoria Amor RN * Comfort and Environment InterventionsQuestionAnswerDate of AssessmentAuthor SxkmjgbEjaahkdjcyfj83/19/2025 8:45 PM Viktoria Amor RNAdditional Comfort/Environmental InterventionsTAPS;Extremity /19/2025 8:45 PM Viktoria Amor, MARYAN * ADL ScreeningQuestionAnswerDate of AssessmentAuthorDo you snore or wake up gasping for air?No09/17/2025 2:54 AM Margie Bledsoe RNCan you bring in your CPAP/BiPAP from home?N/A1 2:54 AM Margie Bledsoe RN Patient's Vision Adequate to Safely Complete Daily QwoykwpudsFgo15/19/2025 2:54 AM Margie Bledsoe RNPatient's Judgment Adequate to Safely Complete Daily DsgpakojhpVgd03/19/2025 2:54 AM Margie Bledsoe RNPatient's Memory Adequate to Safely Complete Daily BiyabdpepjEnf34/19/2025 2:54 AM Margie Olivarez RNPatient Able to Express Needs/FtkjqugZrh74/19/2025 2:54 AM Margie Bledsoe RNDressingIndependent09/17/2025 2:54 AM Margie Olivarez KQYmvkxdkoFpuyfleskju62/19/2025 2:54 AM Margie Bledsoe CRIppvundXljaoqxjypx32/19/2025 2:54 AM Margie Bledsoe RNBathing Kuozyrhichw49/19/2025 2:54 AM Margie lBedsoe RNToiletingIndependent 09/17/2025 2:54 AM Margie Bledsoe RNIn/Out TssEgbfggjsaem98/19/2025 2:54 AM Margie Bledsoe RNWalks in XadvCcdkhtfzhbs23/19/2025 2:54 AM Margie Olivarez RNWeakness of KdpzNfps78/19/2025 2:54 AM Margie Bledsoe RNWeakness of Arms/PemufLpbz60/19/2025 2:54 AM Margie Bledsoe RN Hearing - Right EarDifficulty with noise09/17/2025 2:54 AM Margie Bledsoe RNHearing - Left EarDifficulty with noise09/17/2025 2:54 AM Margie Olivarez RN * ConsultsQuestionAnswerDate of AssessmentAuthorSpiritual Care Consult NeededNo 09/17/2025 2:42 AM Margie Bledsoe RNSocial Services Consult NeededNo 09/17/2025 2:42 AM Margie Bledsoe RNPalliative Care Consult NeededNo 09/17/2025 2:42 AM Margie Bledsoe RN * Therapy ConsultsQuestionAnswerDate of AssessmentAuthorPT Evaluation Needed1 09/17/2025 2:54 AM Margie Bledsoe RNOT Evaluation Awtasv886 2:54 AM Margie Bledsoe RNSLP Evaluation Teluxj671/19/2025 2:54 AM Margie Olivarez RN * Assistive DevicesQuestionAnswerDate of AssessmentAuthorAssistive Devices Dentures upper;Walker;Ybupaszprs66/19/2025 2:54 AM Margie Bledsoe RN * [place] Fall Risk InterventionsQuestionAnswerDate of AssessmentAuthor [place] Fall Risk IvceeprbjwljvGsitotgh49/19/2025 8:45 PM Viktoria Amor RN * Suicidal IdeationQuestionAnswerDate of AssessmentAuthor1. Wish to be (Lifetime)No09/17/2025 2:44 AM Margie Bledsoe RN2. Non-Specific Active Suicidal Thoughts (Lifetime)No09/17/2025 2:44 AM Margie Bledsoe RN * Pain AssessmentQuestionAnswerDate of AssessmentAuthorPain Interventions Rest;Relaxation casqhxatf70/19/2025 8:45 PM Viktoria Amor RNPatient's Stated Pain GoalNo pain09/17/2025 8:45 PM Viktoria Amor RNPain AssessmentNo/denies pain09/17/2025 8:45 PM Viktoria Amor RN * NutritionQuestionAnswerDate of AssessmentAuthorDiet TypeHeart healthy 09/17/2025 8:45 PM Viktoria Amor, RNFeedingAble to feed self09/17/2025 8:45 PM Viktoria Amor, DDUapomeujCchr29/19/2025 8:45 PM Viktoria Amor RN * Respiratory InterventionsQuestionAnswerDate of AssessmentAuthorRespiratory Interventions PerformedCough and deep /19/2025 8:45 PM Viktoria Amor RN * Cough and Deep BreatheQuestionAnswerDate of AssessmentAuthorCough and Deep VyjfqhkUnt78/19/2025 8:45 PM Viktoria Amor RN * IntegumentaryQuestionAnswerDate of AssessmentAuthorSkin ColorAppropriate for race09/17/2025 8:45 PM Viktoria Amor RNSkin Condition/TempWarm;Dry 09/17/2025 8:45 PM Viktoria Amor RNSkin IntegrityOther (Comment) 09/17/2025 8:45 PM Viktoria Amor RNSkin TurgorNon-nnjbyzd5409/17/2025 8:45 PM Viktoria Amor RNIntegumentary (WDL)X1 8:45 PM EDT Viktoria Ying RN * QuestionAnswerDate of AssessmentAuthorWhich is your dominant hand?Right 09/17/2025 8:00 PM Viktoria Amor RN * QuestionAnswerDate of AssessmentAuthorUrine ColorYellow/straw09/17/2025 8:45 PM Viktoria Amor RNUrine LtvonpsztrSmxds70/19/2025 8:45 PM EDT Viktoria Ying RNUrine OdorNo odor09/17/2025 8:45 PM Viktoria Amor RNUrinary BbiukqcmqhxgUh80/19/2025 8:45 PM Viktoria Amor RN * QuestionAnswerDate of AssessmentAuthorLast BM Uotz5509175/19/2025 8:45 PM EDT Viktoria Ying RNStool MwiogBwpsj75/19/2025 3:08 PM Kelli Mariscal RN Stool AppearanceLoose;Iwekar11 3:08 PM Kelli Mariscal RNBowel PrdpgcgdgdbnIc50/19/2025 8:45 PM Viktoria Amor RN * Audit Alcohol ScreeningQuestionAnswerDate of AssessmentAuthorHow often do you have a drink containing alcohol? 2:42 AM Margie Bledsoe RN How many standard drinks containing alcohol do you have on a typical day?No 09/17/2025 2:42 AM Margie Bledsoe RNHow often do you have six or more drinks on one occasion? 2:42 AM Margie Bledsoe RNAudit-C Jqmcy806 2:42 AM Margie Bledsoe RN * QuestionAnswerDate of AssessmentAuthorPatient Goal for Treatmentdischarge 09/17/2025 10:00 PM Viktoria Amor RN * Drug ScreeningQuestionAnswerDate of AssessmentAuthorHave you [...] shortened, removed, or accounted for?Yes09/17/2025 8:45 PM Viktoria Patel RNRoom secured by RN per shift?Yes09/17/2025 8:45 PM Viktoria Patel RN * Care Plan - Safety GoalsQuestionAnswerDate of AssessmentAuthorFree from fall injuryAssess patient frequently for physical needs;Identify cognitive and physical deficits and behaviorsthat affect risk of falls;[place]owdrey fall precautions as indicated by assessment;Educate patient/family on patient safety, including physical limitations;Instruct patient to call for assistance with activity based on nefdbsyulu48/19/2025 8:45 PM Viktoria Amor RN * Modified Malnutrition Screening Tool (MST)QuestionAnswerDate of Assessment AuthorHave you recently lost weight without trying?Yes09/17/2025 2:43 AM Margie Olivarez RNUnplanned Weight loss over: 2:43 AM Margie Olivarez RNWeight Loss Ixubi359 2:43 AM Margie Bledsoe RNHave you been eating poorly because of a decreased appetite?1 09/17/2025 2:43 AM Margie Bledsoe RNOn home tube feeding or TPN?0 09/17/2025 2:43 AM Margie Bledsoe RNMalnutrition Egrrm821 2:43 AM Margie Bledsoe RNDoes patient have a stage 2-4 pressure ulcer?0 09/17/2025 2:43 AM Margie Bledsoe RN documented as of this encounter Plan of Treatment DateTypeDepartmentCare Team (Latest Contact Info)Yhfxtbwdjhv95/06/2025 2:00 PM ESTOffice Visit [facility] [address] [place] [address] Harman Anders, [employer] MACHINE OPERATOR HELPER [address] [place] [address] documented as of this encounter Visit Diagnoses Not on filedocumented in this encounter Care Teams Team MemberRelationshipSpecialtyStart DateEnd Date Rio Frey MD [address] [place] [address] PCP - Avawdmy16/23/22documented as of this encounter
--- OUTSIDE RECORDS SUMMARY | 2025-09-28 13:13 | XMS_ITS | Clinical Summary ---
Author Organization [facility] Address [address] [place] [address] Care Team Providers Care Machine Or Machinery Mechanic Name Role Phone Rio Frey MD Primary Care Provider [phone] Allergies No known active allergies Medications MedicationSigDispense QuantityRefillsLast FilledStart DateEnd DateStatus atorvastatin (Lipitor) 40 MG tablet 40 mg 1 (one) time each day at the same timeActive carvedilol (Coreg) 12.5 MG tablet Take 12.5 mg by mouth in the morning and 12.5 mg in the evening. Take with meals.10/23/2023ctive DULoxetine (Cymbalta) [address] capsule Take 30 mg by mouth10/23/2023ctive hydrALAZINE (Apresoline) 10 MG tablet 10 mg in the morning and 10 mg at noon and 10 mg in the evening and 10 mg before bedtime.Active hydroCHLOROthiazide (HYDRODiuril) 12.5 MG tablet 12.5 mg10/03/2023ctive losartan (Cozaar) 25 MG tablet 25 mg 1 (one) time each day at the same timeActive ondansetron (Zofran) 4 MG tablet 10/29/2023ctive Jantoven 4 MG tablet 4 mg10/03/2023ctive omeprazole (PriLOSEC) [address] capsule 40 mg09/16/2023ctive montelukast (Singulair) 10 MG tablet 09/12/2023ctive furosemide (Lasix) 20 MG tablet Take 20 mg by mouth Daily01/01/2025tive ferrous sulfate 325 (65 Fe) MG tablet Take 325 mg by mouth in the morning. Take with meals.Active potassium chloride CR (Klor-Con M20) 20 MEQ ER tablet Take 20 mEq by mouth Daily5Active sucralfate (Carafate) 1 g tablet 1 g05Active sacubitril-valsartan (Entresto) 49-51 MG tablet Take 1 tablet by mouth in the morning and 1 tablet before bedtime.Active budesonide (Pulmicort) 0.5 MG/2ML nebulizer solution Take 0.5 mg by nebulization in the morning and 0.5 mg before bedtime. Rinse mouth with water after use to reduce aftertaste and incidence of candidiasis. Do not swallow..Active Multiple Vitamins-Minerals (EYE VITAMINS PO) Take by mouthActive ascorbic acid (Vitamin C) 500 MG tablet Take 500 mg by mouth DailyActive cholecalciferol (Vitamin D-3) 25 MCG (1000 UT) capsule Take 1,000 Units by mouth DailyActive Encounters DateTypeDepartmentCare PyenWzdmquibuat47/17/2025Travelfrom Last 3 Months Immunizations ImmunizationAdministration DatesNext DueInfluenza, injectable, quadrivalent, preservative free11/01/2018,11/03/2017Pneumococcal Conjugate PCV 13012/02/2017 Family History Medical HistoryRelationNameCommentsDiabetesMotherHypertensionMotherBreast cancer SisterRelationNameStatusCommentsFatherDeceasedMotherDeceasedSister Social History Tobacco UseTypesPacks/DayYears UsedDateSmoking Tobacco: FormerCigarettes Smokeless Tobacco: Never Tobacco Cessation:Counseling Given: Not Answered Alcohol UseStandard Drinks/WeekCommentsNever0 (1 standard drink = 0.6 oz pure alcohol)Caffeine intake: noneSex and Gender InformationValueDate RecordedSex Assigned at BirthNot on fileLegal RqeEcpz9802/11/2023 6:56 PM EDTGender Identity Not on fileSexual OrientationNot on file Last Filed Vital Signs Vital SignReadingTime TakenCommentsBlood Lyrikmkr424/6210 12:00 PM EDT Pulse--Temperature--Respiratory Rate--Oxygen Saturation--Inhaled Oxygen Concentration--Dsriev49.9 kg (218 lb)05/17/2025 9:25 AM TJMMgbkio126.7 cm (5' 8 )05/17/2025 9:25 AM EDTBody Mass Index33.1506/ 9:25 AM EDT Plan of Treatment Health MaintenanceDue DateLast DoneCommentsPneumococcal Vaccine: 65+ Years (2 of 2 - PCV20 or PCV21)Influenza Vaccine (#1)2025 11/01/2018, 11/03/2017 Insurance * Guarantor: [employer] TypeRelation to PatientDate of BirthPhone Billing AddressPersonal/XnbcfuVqgp99/[birth year][address] [address] Care Teams Team MemberRelationshipSpecialtyStart DateEnd Date Rio Frey MD [facility] [place] [address] PCP - GeneralInternal Medicine07/29/23
--- OUTSIDE RECORDS SUMMARY | 2025-09-28 13:13 | XMS_ITS | Clinical Summary ---
Author Organization [facility] Address [address] [place] [address] Care Team Providers Care Senior Environmental Scientist Name Role Phone Rio Frey MD Primary Care Provider [phone] Allergies No known active allergies Medications MedicationSigDispense QuantityRefillsLast FilledStart DateEnd DateStatus atorvastatin (Lipitor) 40 mg tablet 1 (one) time each day at the same time.Active DULoxetine (Cymbalta) [address] capsule Take 30 mg by mouth in the morning.Active sacubitriL-valsartan (Entresto) 49-51 mg tablet Take 1 tablet twice a day by oral route.10/31/2020Active ferrous sulfate 325 (65 Fe) MG EC tablet Take 1 tablet by mouth in the morning.Active furosemide (Lasix) 40 mg tablet PRN for LE edemaActive Spiriva with HandiHaler 18 mcg inhalation capsule 11/21/2021ctive montelukast (Singulair) 10 mg tablet 09/08/2022ctive warfarin (Coumadin) 5 mg tablet Take 4 mg by mouth in the morning. Take as directed per After Visit Summary. Follow up with behzad anticoagulation for INRActive omeprazole (PriLOSEC) [address] capsule Take 40 mg by mouth before breakfast.03/29/2023ctive sucralfate (Carafate) 1 gram tablet Take 1 g by mouth before breakfast and before evening meal.05/07/2024ctive potassium chloride CR (Klor-Con M20) 20 mEq ER tablet Take 20 mEq by mouth in the morning.Active cholecalciferol (Vitamin D-3) 25 MCG (1000 UT) capsule Take 1,000 Units by mouth in the morning.Active aspirin 81 mg chewable tablet Indications:NSTEMI (non-ST elevated myocardial infarction) (CMS/HCC)Chew 1 tablet (81 mg) with breakfast for 96 doses. 7 tablet /ctive Additional Information Patient not taking.Reported on 09/28/2025 carvedilol (Coreg) 6.25 mg tablet Indications:NSTEMI (non-ST elevated myocardial infarction) (CMS/HCC)Take 1 tablet (6.25 mg) by mouth with breakfast and with evening meal for 191 doses. 60 tablet /ctive clopidogrel (Plavix) 75 mg tablet Indications:NSTEMI (non-ST elevated myocardial infarction) (CMS/HCC)Take 1 tablet (75 mg) by mouth in the morning for 98 doses. 30 tablet /ctive carvedilol (Coreg) 12.5 mg tablet Take 1 tablet twice a day by oral route.09/20/2025Discontinued(Stop Taking at Discharge) nitroglycerin (Nitrostat) 0.[address] 1 tab under tongue at the beginning of chest pain. May repeat every 5 minutes if pain persists. Do not repeat more that 3 times.09/20/2025Discontinued (Stop Taking at Discharge) hydroCHLOROthiazide 12.5 mg tablet Take 12.5 mg by mouth 2 times daily.Discontinued(Stop Taking at Discharge) apixaban (Eliquis) 5 mg tablet Indications:Chronic atrial fibrillation (CMS/HCC)Take 1 tablet (5 mg) by mouth two times daily. 60 tablet Discontinued(Stop Taking at Discharge) Active Problems ProblemNoted DateDiagnosed DateOSA (obstructive sleep apnea)09/18/2025 Assessment & Plan (09/19/2025 2:48 PM EDT): - Patient has not worn CPAP for 2 months. Reports bennie could not find a mask that works for him. - He reports he does not want to wear a CPAP when I offered to consult our pulmonary navigator. Assessment & Plan (09/18/2025 7:43 AM EDT): - patient has not worn CPAP for 2 months. Reports bennie could not find a mask that works for him. 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 Assessment & Plan (09/18/2025 7:43 AM EDT): - encourage weight loss COPD without krknefbrbbia88/20/2025 Assessment & Plan (09/19/2025 2:48 PM EDT): - Continue singulair. Assessment & Plan (09/18/2025 7:46 AM EDT): -continue singulair NSTEMI (non-ST elevated myocardial infarction)09/17/2025 Assessment & Plan (09/19/2025 2:48 PM EDT): CAD (coronary artery disease) - CAD s/p KISHAN to LAD & RCA in 2012, HFimpEF s/p BiV Pacemaker placement 2016 - Presented to [facility] with a troponin of 10,000 and transferred to [facility] - Troponin 4674, 3682, 3331, 2641 [...] protocol, K > 4, Mg > 2 Assessment & Plan (09/18/2025 7:46 AM EDT): - CAD s/p KISHAN to LAD & RCA in 2012, HFimpEF s/p BiV Pacemaker placement 2017 - presented to [facility] with a troponin of 10,000 and transferred to [facility] - troponin 4674, 3682, 3331, 2641 - cards consulted - on heparin drip, lipitor, coreg - reports he does not take ASA at home, He is not on aspirin due to being on anticoagulation therapy for atrial fibrillation - plan for cardiac cath today Assessment & Plan (09/17/2025 4:25 AM EDT): -History of CAD - Currently in the throes of acute NSTEMI - Treat with morphine sulfate - Supplemental oxygen to keep saturation above 96% - Consult cardiology DVT prophylaxis is VTE protocols per [facility] GI protection Protonix Monitor labs correct mellitus Cycle troponin Consult cardiology I discussed the plan of care with the patient that he is in agreement CAD S/P percutaneous coronary snoadokwueh95/04/15248512/03/2023 Overview (12/03/2023): unclear about stents CAD (coronary artery disease)10/29/2022 Overview (10/29/2022): Stent to LAD and RCA April 2013 Assessment & Plan (09/18/2025 7:46 AM EDT): - CAD s/p KISHAN to LAD & RCA in 2012, HFimpEF s/p BiV Pacemaker placement 2017 - presented to [facility] with a troponin of 10,000 and transferred to [facility] - troponin 4674, 3682, 3331, 2641 - cards consulted - on heparin drip, lipitor, coreg - reports he does not take ASA at home, He is not on aspirin due to being on anticoagulation therapy for atrial fibrillation - plan for cardiac cath today Assessment & Plan (09/17/2025 4:25 AM EDT): -History of CAD - Currently in the throes of acute NSTEMI - Treat with morphine sulfate - Supplemental oxygen to keep saturation above 96% - Consult cardiology Assessment & Plan (10/29/2022 10:22 AM EST): Continue GDMT- continue coreg, lipitor- no ASA with anticoagulation- jantoven Acute on chronic systolic heart failure, NYHA class Overview (10/29/2022): chronic systolic heart failure and underwent upgrade to a BiV pacer (no ICD) in 2017, recovered EF on follow up. Assessment & Plan (10/29/2022 10:24 AM EST): Continue GDMT- lipitor, coreg, entresto, lasix NY II-III Currently euvolemic without exacerbation Overall pt is doing quite well No concerning symptoms today Monitor daily weights, I&O, fluid restriction 1.5-2L/day, renal function remains stable Chronic atrial uyhdlimtqslt87/30/2022 Assessment & Plan (09/19/2025 2:48 PM EDT): Presence of biventricular cardiac pacemaker - Permanent A.F. with CHB s/p BiV GRINDER SET UP OPERATOR CENTERLESS-P placement, on warfarin - last interrogation done on 09/01/2025 - EKG 09/17 showing ventricular paced rhythm with intrinsic complexes - Coumadin held, heparin discontinued - INR 1.56 today Assessment & Plan (09/18/2025 7:43 AM EDT): - Permanent A.F. with CHB s/p BiV GRINDER SET UP OPERATOR CENTERLESS-P placement, on warfarin - last interrogation done on 09/01/2025 - EKG 09/17 showing ventricular paced rhythm with intrinsic complexes - coumadin on hold and on a heparin drip - INR 2.19 today, will defer to cards Assessment & Plan (09/17/2025 4:25 AM EDT): -History of chronic defibrillation patient is on Coumadin at home. - Monitor heart rate Assessment & Plan (10/29/2022 10:26 AM EST): [id number]-SDOs= 5 Remains rate controlled with coreg and anticoagulation with jantoven Denied any bleeding tendencies Presence of biventricular cardiac hulvtfgdx00/30/2022 Assessment & Plan (09/18/2025 7:43 AM EDT): - Permanent A.F. with CHB s/p BiV GRINDER SET UP OPERATOR CENTERLESS-P placement, on warfarin - last interrogation done on 09/01/2025 - EKG 09/17 showing ventricular paced rhythm with intrinsic complexes - coumadin on hold and on a heparin drip - INR 2.19 today, will defer to cards Assessment & Plan (09/17/2025 4:25 AM EDT): -Chronic device/problem. Will continue to monitor and interrogate if need be Assessment & Plan (10/29/2022 10:18 AM EST): Device check 10/14/22 Device functioning normal, 99% BI-V pacing 04/15/22- battery life 7 yrs, normal device function, no ventricular arrythmias, 100% Bi-V paced Benign hypertensive cardiomyopathy with heart yyweqhg0110/29/2022yspnea on ncbevzrh04/30/2022Edema of both lower xiajxzzhyei79/30/8498Fsyocxmyp40/30/2022 Asthma, dncennjk04/30/2022DVT (deep venous thrombosis)10/29/2022Hyperlipidemia 10/29/2022 Assessment & Plan (09/19/2025 2:48 PM EDT): - Continue lipitor 80mg nightly - Lipid panel-total cholesterol is 106, HDL 34, LDL 59, triglycerides 67 Assessment & Plan (09/18/2025 7:46 AM EDT): - continue lipitor 80mg nightly - will update lipid panel Assessment & Plan (09/17/2025 4:25 AM EDT): -Statins Assessment & Plan (10/29/2022 10:21 AM EST): Annual labs with PCP- Dr Gil Continue lipitor Morbid obesity with BMI of 40.0-44.9, adult10/29/2022 Assessment & Plan (09/17/2025 4:25 AM EDT): -Weight loss is recommended by virtue of exercise and diet Osteoarthritis of right hip10/29/2022ulmonary czcobimg61/30/2022Mitral valve aslimtkj22/10/2014 Assessment & Plan (10/29/2022 10:20 AM EST): No concerning symptoms today Will monitor with routine echo- or repeat echo with concerning symptoms Implantable cardioverter-defibrillator (ICD) in situ4Right knee DJD1History of cardiovascular itwlutcu19/19/2013Encounter for long-term (current) use of jjhkkuu3111/17/2012Conduction disorder of the heart 05/06/2012trioventricular block05/04/2012Dizziness and qjzogsrfl41/05/2012 Chronic disease of cardiovascular nxsasm7405/04/2012 Encounters DateTypeDepartmentCare ChpxWxmbdraftqd85/30/2025 11:40 AM EDTOffice Visit [facility] [address] [place] [place] [address] Kiley Hurley CNP Dyspnea on exertion (Primary Dx)09/19/2025 6:00 PM EDT - 09/19/2025 7:15 PM EDT Surgery [facility] [address] [place] [phone] Salo Campbell MD Coronary ytzdxjmgtyc77/19/2025 2:26 AM EDT - 09/20/2025 4:21 PM EDTHospital Encounter [facility] [address] [place] [id number] Reilly Bowen MD Spencer, Caleb T, MD Chang, Kyu Chul, MD Schwarz, Stephanie DO Adilson, Sarmed, MD Kya, Bonaventure, MD NSTEMI (non-ST elevated myocardial infarction) (CMS/HCC) (Primary Dx); S/P drug eluting coronary stent placement; Chronic atrial fibrillation (CMS/HCC) Discharge Disposition: Home or Self Care ()09/17/20252270Abpdjv63/03/2025 12:35 PM EDTAncillary Procedure [facility] [address] [place] [address] Adjustment and management of cardiac kksvalica65/03/2025Orders Only [facility] [address] [place] [address] Volodymyr Knott MD 08/01/2025 1:00 PM EDTAncillary Procedure [facility] [address] [place] [address] Adjustment and management of cardiac pumdqmcuu13/02/2025Orders Only [facility] [address] [place] [address] Volodymyr Knott MD 07/19/2025Orders Only [facility] [address] [place] [address] Volodymyr Knott MD 07/17/2025 1:05 PM EDTAncillary Procedure [facility] [address] [place] [address] Adjustment and management of cardiac qeedgrvze69/08/2025Telephone [facility] [place] [address] [place] [address] Virginia Cisse MA 07/03/2025 1:00 PM EDTAncillary Procedure [facility] [address] [place] [address] Adjustment and management of cardiac euiqqmruv04/02/2025Orders Only [facility] [address] [place] [phone] Juan Bauer MD from Last 3 Months Family History RelationNameStatusCommentsFatherDeceasedMotherDeceased Social History Tobacco UseTypesPacks/DayYears UsedDateSmoking Tobacco: DufucxUqphtojtsm9984 - 1984Smokeless Tobacco: Never Tobacco Cessation:Counseling Given: Not Answered Alcohol UseStandard Drinks/WeekCommentsNot Currently0 (1 standard drink = 0.6 oz pure alcohol)[facility] UtilitiesAnswerDate RecordedIn the past 12 months has the electric, gas, oil, or water company threatened to shut off services in your home?No09/17/2025Humiliation, Afraid, Rape, and Kick questionnaireAnswerDate RecordedWithin the last year, have you been afraid of your partner or ex-partner?No09/17/2025Emotionally AbusedNot on file09/17/2025Physically Abused Not on file09/17/2025Sexually AbusedNot on file09/17/2025Overall Financial Resource Strain (CARDIA)AnswerDate RecordedHow hard is it for you to pay for the very basics like food, housing, medical care, and heating?Not hard at all 09/17/2025TransportationAnswerDate RecordedIn the past 12 months, has lack of transportation kept you from medical appointments or from getting medications?No 09/17/2025Lack of Transportation (Non-Medical)Not on file09/17/2025Housing Stability Vital SignAnswerDate RecordedIn the last 12 months, was there a time when you were not able to pay the mortgage or rent on time?No09/17/2025Number of Times Moved in the Last YearNot on file09/17/2025t any time in the past 12 months, were you homeless or living in a skilled nursing (including now)?No09/17/2025 Hunger Vital SignAnswerDate RecordedWithin the past 12 months, you worried that your food would run out before you got the money to buymore.Never true09/17/2025 Ran Out of Food in the Last YearNot on file09/17/2025Sex and Gender Information ValueDate RecordedSex Assigned at CwemhAolr43/09/2025 2:41 PM EDTLegal SexMale 05/28/2022 10:25 PM EDTGender BdnxhofaBjqt80/09/2025 2:41 PM EDTSexual OrientationHeterosexual or Ibgcnhiv83/09/2025 2:41 PM EDT Last Filed Vital Signs Vital SignReadingTime TakenCommentsBlood Dsuxgwwu034/7009/28/2025 1:08 PM EDT Ythwb804309/28/2025 11:47 AM PNLLjrehovouov62.6 ??C (97.9 ??F)09/20/2025 3:05 PM EDTRespiratory Ikvr7536 3:05 PM EDTOxygen Jxqaacgkgy963%09/28/2025 11:47 AM EDTInhaled Oxygen Concentration--Yeuxbl77.2 kg (212 lb)09/28/2025 11:47 AM DMMJogfwf517.7 cm (5' 8 )09/28/2025 11:47 AM EDTBody Mass Index32.231 11:47 AM EDT Plan of Treatment DateTypeDepartmentCare Team (Latest Contact Info)Gxuvkdxqyld44/06/2025 2:00 PM ESTOffice Visit [facility] [place] [address] [place] [address] Harman Anders, FRAMING SPECIALIST [address] [place] [address] Health MaintenanceDue DateLast DoneCommentsMedicare Annual Wellness (AWV) 1936Depression Jqlprslbo83/23/1949dult Xpofjmg4212/22/1958Zoster Vaccines (1 of 2)1986Pneumococcal Vaccine: 50+ Years (2 of 2 - PPSV23, PCV20, or PCV21)COVID-19 Vaccine (4 - season)2025 10/01/2021, 01/10/2021, 12/20/2020Influenza Vaccine (#1)2018, 11/03/2017Fall Risk Rqzebmmys88HIB VaccinesAged OutNo longer eligible based on patient's age to complete this topicHPV VaccinesAged OutNo longer eligible based on patient's age to complete this topicIPV VaccinesAged OutNo longer eligible based on patient's age to complete this topicMeningococcal B VaccineAged OutNo longer eligible based on patient's age to complete this topicMeningococcal VaccineAged OutNo longer eligible based on patient's age to complete this topicRotavirus VaccinesAged OutNo longer eligible based on patient's age to complete this topic Medical Devices ImplantedTypeAreaManufacturerDevice IdentifierShelf Expiration DateModel / Serial / Symone Ying 3.00 X 20 - [id number] Implanted:Qty: 1 on 09/19/2025 by Salo Campbell [facility] Eluting StentLeft: CoronaryEncompass Health Rehabilitation Hospital Of North Alabamaton Scientific [id number] / / [id number] Procedures Procedure NamePriorityDate/TimeAssociated DiagnosisCommentsECG 12 LEAD UNIT LEQAMMTFQSjyamsf00/30/2025 1:12 PM EDT Dyspnea on exertion MAGNESIUMPending Plilocvyb89/22/2025 6:10 AM EDT BASIC METABOLIC PANELPending Aieyrgimg66/22/2025 6:10 AM EDT CBCPending Wrtydsnzk70/22/2025 6:10 AM EDT ECG 12-AMTIOqrit27/21/2025 6:30 PM EDT POCT ACTIVATED CLOTTING UISTPwmhdws35/21/2025 5:56 PM EDT ACTIVATED CLOTTING NNMWDlpcvqs48/21/2025 5:49 PM EDT ULTRASOUND - JHWKAJUALrkfmvo99/21/2025 5:11 PM EDT NSTEMI (non-ST elevated myocardial infarction) ([facility]/HCC) PERC CORONARY REPVDLTEAMEJWiduscw91/21/2025 5:11 PM EDT NSTEMI (non-ST elevated myocardial infarction) (CMS/HCC) RIGHT HEART CFTMTzemdgc77/21/2025 5:11 PM EDT NSTEMI (non-ST elevated myocardial infarction) (CMS/HCC) CORONARY VPZMFBHWCAQCniurtu59/21/2025 5:11 PM EDT NSTEMI (non-ST elevated myocardial infarction) (CMS/HCC) ACTIVATED CLOTTING TIZXTttxwln92/21/2025 4:51 PM EDT ACTIVATED CLOTTING FOOPOygewyx84/21/2025 4:35 PM EDT ACTIVATED CLOTTING ZHELUrpkvhz58/21/2025 3:58 PM EDT %ZFA9Cumqupw84/21/2025 3:40 PM EDT POTASSIUMPending Sxcylmhnf46/21/2025 12:31 PM EDT ANTI-FACTOR XAPending Hpcqsazgq99/21/2025 12:31 PM EDT LAVENDER GXCEdjhcrf26/21/2025 6:00 AM EDT EXTRA NBWMRZrwqkiq84/21/2025 6:00 AM EDT PROTIME-INRPending Wywvunsml24/21/2025 6:00 AM EDT MAGNESIUMPending Lvxbckfzc73/21/2025 6:00 AM EDT BASIC METABOLIC PANELPending Bnytcfrfz70/21/2025 6:00 AM EDT ANTI-FACTOR XAPending Ytyusmdqa50/21/2025 6:00 AM EDT ANTI-FACTOR SFWppmi87/21/2025 12:16 AM EDT ANTI-FACTOR NDCerfz06/20/2025 6:00 PM EDT ANTI-FACTOR EFTmirj42/20/2025 11:33 AM EDT COMPLETE ECHO (TTE) W/ IMAGING SHTDKCcgxwxh38/20/2025 10:43 AM EDT LIPID PANELAdd-On09/18/2025 7:45 AM EDT GIREJAGLRNlptiit31/20/2025 7:45 AM EDT BASIC METABOLIC WWPEPQVFD76/20/2025 7:45 AM EDT OVPJEAI-TWLZpd-Gm05/20/2025 4:33 AM EDT ANTI-FACTOR ZDMfixolj27/20/2025 4:33 AM EDT SUFLewhsbk93/20/2025 4:33 AM EDT HIGH SENSITIVITY TROPONIN VAzplj0309/18/2025 12:01 AM EDT HIGH SENSITIVITY TROPONIN HJyaxw0509/17/2025 5:25 PM EDT ANTI-FACTOR LAEqlqjig23/19/2025 5:25 PM EDT HIGH SENSITIVITY TROPONIN UFprgp0909/17/2025 11:57 AM EDT LNLDGLK-WRHFrc-Gd42/19/2025 9:57 AM EDT ANTI-FACTOR WXJcrrq17/19/2025 9:57 AM EDT ECG 12-XGWYSqnaaai75/19/2025 9:39 AM EDT KZIURLKC00/19/2025 3:50 AM EDT HIGH SENSITIVITY TROPONIN BQiavrnc22/19/2025 3:50 AM EDT ZYLILFUWHBltbwun49/19/2025 3:50 AM EDT LACTIC ACID, JFJWYSZvddavi63/19/2025 3:50 AM EDT COMPREHENSIVE METABOLIC YZFMIGujbnux51/19/2025 3:50 AM EDT B-TYPE NATRIURETIC FCTMWQTXecypra39/19/2025 3:50 AM EDT FMCMPXG0009/17/2025 3:50 AM EDT CARDIAC DEVICE CHECK CHECK - VPQQPPWithius81/06/2025 11:50 AM EDT Adjustment and management of cardiac pacemaker CARDIAC DEVICE CHECK - REMOTE - LJFDJECUTGrsgsyi71/03/2025 12:00 AM EDTCARDIAC DEVICE CHECK CHECK - DRPOAEQpddnvq15/04/2025 2:23 PM EDT Adjustment and management of cardiac pacemaker CARDIAC DEVICE CHECK - REMOTE - EKIHCBSGKJfyvxqq08/02/2025 12:00 AM EDTCARDIAC DEVICE CHECK CHECK - EDZIVQQgvsuap34/22/2025 11:43 AM EDT Adjustment and management of cardiac pacemaker CARDIAC DEVICE CHECK - REMOTE - HGOHLYHFKZhqrdqv46/20/2025 12:00 AM EDTCARDIAC DEVICE CHECK CHECK - FLJEGNItnfphh42/11/2025 4:02 PM EDT Adjustment and management of cardiac pacemaker CARDIAC DEVICE CHECK - REMOTE - QAINYVTHONqbohih70/02/2025 12:00 AM EDTCARDIAC DEVICE CHECK CHECK - IVVVNERsvnywh98/01/2025 7:27 PM EDT Adjustment and management of cardiac pacemaker from Last 3 Months Results * ECG 12 lead unit performed (09/28/2025 1:12 PM EDT)Specimen (Source)Anatomical Location / LateralityCollection Method / VolumeCollection TimeReceived Time Narrative Authorizing ProviderResult TypeResult StatusKiley Hurley [facility] ORDERABLES Final Result * (ABNORMAL) CBC (09/20/2025 6:10 AM EDT) Only the most recent of3 resultswithin the time period is included. ComponentValueRef RangeTest MethodAnalysis TimePerformed AtPathologist Signature Auto WBC8.094.00 - 10.60 10*3/uL09/20/2025 7:31 AM [facility] ([facility]) RBC3.37(L)4.20 - 5.70 10*6/uL09/20/2025 7:31 AM [facility] ([facility]) Bsqmirndtj16.4(L)13.0 - 17.0 g/dL09/20/2025 7:31 AM [facility] ([facility])Ortlczbkmp52.0(L)39.0 - 50.0 %09/20/2025 7:31 AM [facility] ([facility])MCV95.082.0 - 98.0 fL09/20/2025 7:31 AM [facility] ([facility])MCH 30.927.0 - 33.0 pg09/20/2025 7:31 AM [facility] ([facility])MCHC32.532.0 - 35.0 g/dL09/20/2025 7:31 AM [facility] ([facility])RDW13.211.5 - 15.0 % 09/20/2025 7:31 AM [facility] ([facility])Ulchksgbk813345 - 400 10*3/uL 09/20/2025 7:31 AM [facility] ([facility])Specimen (Source)Anatomical Location / LateralityCollection Method / VolumeCollection TimeReceived TimeBlood Venous blood specimen / UnknownVenipuncture / Xoqarlf0809/20/2025 6:10 AM EDT 09/20/2025 6:54 AM EDT Narrative Authorizing ProviderResult TypeResult StatusBonaventure Kya BAEZ BLOOD ORDERABLESFinal ResultPerforming OrganizationAddressCity/State/ZIP CodePhone Number [facility] ([facility]) [address] [place] [address] * (ABNORMAL) Magnesium (09/20/2025 6:10 AM EDT) Only the most recent of4 resultswithin the time period is included. ComponentValueRef RangeTest MethodAnalysis TimePerformed AtPathologist Signature Magnesium1.8(L)1.9 - 2.7 mg/dL09/20/2025 7:20 AM [facility] ([facility]) Specimen (Source)Anatomical Location / LateralityCollection Method / Volume Collection TimeReceived TimeBloodVenous blood specimen / UnknownVenipuncture / Rdssszu2509/20/2025 6:10 AM EDT1 6:50 AM EDT Narrative Authorizing ProviderResult TypeResult StatusStephanbriseyda Vargas [facility] BLOOD ORDERABLESFinal ResultPerforming OrganizationAddressCity/State/ZIP CodePhone Number [facility] ([facility]) [address] [place] [address] * (ABNORMAL) Basic metabolic panel (09/20/2025 6:10 AM EDT) Only the most recent of3 resultswithin the time period is included. ComponentValueRef RangeTest MethodAnalysis TimePerformed AtPathologist Signature [id number] - 145 mmol/L1 7:20 AM [facility] ([facility]) Potassium3.4(L)3.5 - 5.1 mmol/L1 7:20 AM [facility] ([facility]) Viwrrfcw647(H)98 - 107 mmol/L1 7:20 AM [facility] ([facility])CO2 2121 - 31 mmol/L1 7:20 AM [facility] ([facility])BUN28(H)7 - 25 mg/dL09/20/2025 7:20 AM [facility] ([facility])Creatinine0.850.70 - 1.30 mg/dL09/20/2025 7:20 AM [facility] ([facility])Mgmeygh662(H)70 - 100 mg/dL 09/20/2025 7:20 AM [facility] ([facility])Calcium8.88.6 - 10.3 mg/dL 09/20/2025 7:20 AM [facility] ([facility])Anion Sro077 - 20 mmol/L 09/20/2025 7:20 AM [facility] ([facility])eGFR83.6>60.0 mL/min/1.73m*2 09/20/2025 7:20 AM [facility] ([facility])Comment:[facility]???s estimated glomerular filtration rate (eGFR) will no longer include consideration of race in its calculation. The [employer] [facility]???s eGFR Task Force developed new recommendations for the estimation of the glomerular filtration rate in the [place] They recommend immediate implementation of the new equation refit without the race variable in all la boratories because the calculation does not include race. In addition to not including race in the calculation and reporting, it included diversity in its development, and has acceptable performance characteristics and potential consequences that do not disproportionately affect any one group of individuals. BUN/Creatinine Ratio32.91 7:20 AM [facility] ([facility])Specimen (Source)Anatomical Location / LateralityCollection Method / VolumeCollection TimeReceived TimeBloodVenous blood specimen / UnknownVenipuncture / Unknown 09/20/2025 6:10 AM EDT1 6:50 AM EDT Narrative Authorizing ProviderResult TypeResult StatusStepclarice Vargas [facility] BLOOD ORDERABLESFinal ResultPerforming OrganizationAddressCity/State/ZIP CodePhone Number [facility] ([facility]) [address] [place] [address] * ECG 12 lead (09/19/2025 6:30 PM EDT) Only the most recent of2 resultswithin the time period is included. ComponentValueRef RangeTest MethodAnalysis TimePerformed AtPathologist Signature Ventricular Tuiz17ENXBL MUSEAtrial Plun039MXYTO MUSEQRS YFYDHOAG826lrAR MUSEQT Vluzbnda878cjVY MUSEQTC CALCULATION(JOSEF)518msGE MUSER-Lhpf736ydstryiDH MUSET Wave Ftaa56ddhjounQZ MUSESpecimen (Source)Anatomical Location / Laterality Collection Method / VolumeCollection TimeReceived Time09/19/2025 5:44 PM EDT 09/19/2025 7:59 PM EDT Impressions GE MUSE - [...] RangeTest MethodAnalysis TimePerformed AtPathologist SignatureActivated Clotting Time LGH067(A)82 - 152 secSpecimen (Source) Anatomical Location / LateralityCollection Method / VolumeCollection Time Received TimeBloodVenous blood specimen / Rwksift1909/19/2025 5:56 PM EDT Narrative Authorizing ProviderResult TypeResult StatusMary De Anda MDPOINT OF CARE TEST ENTER/EDIT ORDERABLESFinal Result * (ABNORMAL) Activated clotting time (09/19/2025 5:49 PM EDT) Only the most recent of4 resultswithin the time period is included. ComponentValueRef RangeTest MethodAnalysis TimePerformed AtPathologist Signature Activated Clotting Kodq885(H)82 - 152 09/19/2025 5:57 PM EDT[facility])Specimen (Source)Anatomical Location / LateralityCollection Method / VolumeCollection TimeReceived TimeBloodVenous blood specimen / Kqjsgez1409/19/2025 5:49 PM EDT1 5:57 PM EDT Narrative Authorizing ProviderResult TypeResult StatusMary BAEZ POINT OF CARE TEST DOCKED DEVICE UNSOLICITED RESULTSFinal ResultPerforming OrganizationAddress City/State/ZIP CodePhone Number [facility] ([facility]) [address] [place] [address] * CORONARY ANGIOGRAPHY, RIGHT HEART CATH, PERC [...] informed consent. ??he was brought to the warehouse general laborer in a fasting state. The right neck area was prepped and draped in usual fashion. Micropuncture technique was used for access under ultrasound guidance into the right internal jugular vein. ??A 6-[place]er x 11 cm sheath was placed. ?? The left wrist area was prepped and draped in usual fashion. Micropuncture technique was used for access in the radial artery. ??A 6-[place] Islander x 11 cm sheath was placed. ??Verapamil was given through the sheath, and heparin was administered intravenously. ?? A 6-[place] Islander Jackson catheter was used for right heart catheterization and measurement of pressures and calculation of cardiac output using the estimated Deanna method. ??Jackson catheter was removed. Bilateral selective coronary angiography was then performed using 6-[place] Islander JL4 diagnostic catheter for engagement of the left coronary artery and 6-[place] Islander JR4 diagnostic catheter for engagement of the right coronary artery. Catheters were removed. Heparin was administered intravenously and therapeutic ACT was confirmed during the rest of the procedure. A 6-[place] Islander XB 3.5 guiding catheter was advanced and used to engage the left coronary ostium. Baseline MARTINA flow was 3. A PhotoTLC coronary guide wire was advanced to the distal left anterior descending coronary artery. A Zattikkatar OCT catheter was advanced and used to [...] denovo stenosis with inflations up to 18 Bruno. The balloon was retracted. Angiography was performed. ?? Additional noncompliant balloon angioplasty was performed in the distal LAD in-stent restenosis using 3.0 x 12 mm noncompliant Emerge balloon inflated at 24 bruno. ??Angiography was performed. A Agent drug-coated balloon 3.0 x 15 mm was then advanced and used to perform drug-coated balloon angioplasty at the site of in-stent restenosis in the distal LAD with inflation at 12 bruno for about 90 seconds. ??The balloon was deflated and retracted. We then turned attention to the mid LAD. ??A Synergy XD 3.0 x 20 mm drug-eluting stent was advanced and deployed at 18 Bruno across the stenosis and postdilated using a NC 3.5 x 15 mm balloon inflated up to 16 Bruno throughout the length of the stented segment. [...] Study Details NSTEMI (non-ST elevated myocardial infarction) ([facility]) [I21.4] Authorizing ProviderResult TypeResult StatusVinay Treadwell [facility] CARDIAC CATH PROCEDURESFinal Result * (ABNORMAL) %HbO2 (09/19/2025 3:40 PM EDT)ComponentValueRef RangeTest Method Analysis TimePerformed AtPathologist FuzbkekdoB0Pd%46.1(L)90.0 - 95.0 % 09/19/2025 3:41 PM EDT[facility] ([facility])Specimen (Source)Anatomical Location / LateralityCollection Method / VolumeCollection TimeReceived Time BloodVenous blood specimen / Ycmkgto8609/19/2025 3:40 PM EDT1 3:40 PM EDT Narrative Authorizing ProviderResult TypeResult StatusMary BAEZ POINT OF CARE TEST DOCKED DEVICE UNSOLICITED RESULTSFinal ResultPerforming OrganizationAddress City/State/ZIP CodePhone Number [facility] ([facility]) [address] [place] [address] * (ABNORMAL) Anti-Xa (Heparin Level) (09/19/2025 12:31 PM EDT) Only the most recent of8 resultswithin the time period is included. ComponentValueRef RangeTest MethodAnalysis TimePerformed AtPathologist Signature Anti-Xa (Heparin)<0.10(LL)0.3 - 0.7 IU/mL09/19/2025 1:18 PM [facility] ([facility])Comment:Rivaroxaban and Apixaban will interfere with the anti Xa assay used to monitor UFH and LMWH.Specimen (Source)Anatomical Location / Laterality Collection Method / VolumeCollection TimeReceived TimeBloodVenous blood specimen / UnknownVenipuncture / Hlafapz7109/19/2025 12:31 PM EDT1 12:34 PM EDT Narrative Authorizing ProviderResult TypeResult StatusCarlton Angulo [facility] BLOOD ORDERABLESFinal ResultPerforming OrganizationAddressCity/State/ZIP CodePhone Number [facility] ([facility]) [address] [place] [address] * Potassium (09/19/2025 12:31 PM EDT)ComponentValueRef RangeTest MethodAnalysis TimePerformed AtPathologist SignaturePotassium4.03.5 - 5.1 mmol/L1 1:04 PM [facility] ([facility])Specimen (Source)Anatomical Location / LateralityCollection Method / VolumeCollection TimeReceived TimeBloodVenous blood specimen / UnknownVenipuncture / Xbynbtt4609/19/2025 12:31 PM EDT 09/19/2025 12:36 PM EDT Narrative Authorizing ProviderResult TypeResult StatusNabeel Cramer [facility] BLOOD ORDERABLES Final ResultPerforming OrganizationAddressCity/State/ZIP CodePhone Number [facility]) [address] [place] [address] * Lavender Top (09/19/2025 6:00 AM EDT)ComponentValueRef RangeTest Method Analysis TimePerformed AtPathologist SignatureExtra TubeHold for add-ons. 09/19/2025 8:01 AM [facility] ([facility])Comment:Auto resulted.Specimen (Source)Anatomical Location / LateralityCollection Method / VolumeCollection TimeReceived TimeBloodVenous blood specimen / Ywufvxe3109/19/2025 6:00 AM EDT 09/19/2025 6:35 AM EDT Narrative Authorizing ProviderResult TypeResult StatusStepclarice Alicia [facility] BLOOD ORDERABLESFinal ResultPerforming OrganizationAddressCity/State/ZIP CodePhone Number [facility] ([facility]) [address] [place] [address] * (ABNORMAL) Protime-INR (09/19/2025 6:00 AM EDT) Only the most recent of3 resultswithin the time period is included. ComponentValueRef RangeTest MethodAnalysis TimePerformed AtPathologist Signature Tmvwyyl37.8(H)12.3 - 14.8 Egmyard9109/19/2025 7:12 AM [facility] ([place])INR1.56(H)0.90 - 1.101 7:12 AM [facility] ([place]) Comment: [facility] RECOMMENDED INR FOR WARFARIN THERAPY CONDITION [...] TimeReceived TimeBloodVenous blood specimen / UnknownVenipuncture / Akclumq2309/19/2025 6:00 AM EDT1 6:30 AM EDT Narrative Authorizing ProviderResult TypeResult StatusChristopher Joshua [facility] BLOOD ORDERABLESFinal ResultPerforming OrganizationAddressCity/State/ZIP CodePhone Number [facility] ([facility]) [address] [place] [address] * COMPLETE ECHO (TTE) W/ IMAGING AGENT (09/18/2025 10:43 AM EDT)Anatomical RegionLateralityModalityOtherSpecimen (Source)Anatomical Location / Laterality Collection Method / VolumeCollection TimeReceived Time09/18/2025 10:20 AM EDT Narrative 09/18/2025 12:04 PM EDT 1 1 [facility] [address] [place] [address] [phone] (fax) Echocardiogram-[facility] Name: ALVIN KNIGHT Study Date: 09/18/2025 10:20 AM B/P: 136 mmHg/90 mmHg HR: 123 bpm Date of : 1935 Location: [facility] Height: 68 in. Age: 89 year(s) [...] No pericardial effusion. Procedure Staff Reading Group: [facility] [employer]erglass Boat Finisher: Shawn Masterson RDCS ??Ordering Physician: LUNA OCHOA ?? Wall Motion Scores -1 - hyperkinesia, 0 - not evaluated, 1 - normal, 2 - hypokinesia, 3 - akinesia, 4 - dyskinesia Procedure Note Juan Bauer MD - 09/18/2025 1 1 [facility] [address] [facility]. [place], [place] [id number] (fax) Echocardiogram-[facility] Name: ALVIN KNIGHT Study Date: 09/18/2025 10:20 AM B/P: 136 mmHg/90 mmHg HR: 123 bpm Date of : 1935 Location: [facility] Height: 68 in. Age: 89 year(s) Patient Room: [facility] Weight: 212 lb. Gender: Male Patient Status: [...] No pericardial effusion. Procedure Staff Reading Group: [facility] [employer] Boat Finisher: Shawn Masterson RDCS Ordering Physician: LUNA OCHOA Wall Motion Scores -1 - hyperkinesia, 0 - not evaluated, 1 - normal, 2 - hypokinesia, 3 - akinesia, 4 - dyskinesia Authorizing ProviderResult TypeResult StatusAbhisada Ochoa [facility] ECHO PROCEDURES Final Result * (ABNORMAL) Lipid panel (09/18/2025 7:45 AM EDT)ComponentValueRef RangeTest MethodAnalysis TimePerformed AtPathologist CudnuupziCrghinqxqjepx95<150 mg/dL 09/18/2025 9:13 AM [facility] ([facility])Comment: TRIGLYCERIDE REFERENCE RANGE: 20 YEARS AND OLDER ?CARDIOVASCULAR RISK LESS THAN 150 mg/dL ? LOW RISK 150 TO 199 mg/dL ?BORDERLINE RISK 200 mg/dL AND GREATER ? HIGH RISK Nxqbuksmsml146(L)120 - 200 mg/dL09/18/2025 9:13 AM [facility] ([facility]) LDL Qxjlbbfbok602 - 160 mg/dL09/18/2025 9:13 AM [facility] ([facility])HDL 3423 - 92 mg/dL09/18/2025 9:13 AM [facility] ([facility])Non HDL Bfomuvldbcs0570/20/2025 9:13 AM [facility] ([facility])Total VLDL-C130 - 40 mg/dL09/18/2025 9:13 AM [facility] ([facility])Cholesterol/HDL Ratio3.1 mg/dL09/18/2025 9:13 AM [facility] ([facility])Specimen (Source)Anatomical Location / LateralityCollection Method / VolumeCollection TimeReceived Time BloodVenous blood specimen / UnknownVenipuncture / Hmxvxio7409/18/2025 7:45 AM EDT 09/18/2025 8:16 AM EDT Narrative Authorizing ProviderResult TypeResult StatusStephanbriseyda Vargas [facility] BLOOD ORDERABLESFinal ResultPerforming OrganizationAddressCity/State/ZIP CodePhone Number [facility] ([facility]) [address] [place] [address] * (ABNORMAL) High Sensitivity Troponin I (09/18/2025 12:01 AM EDT) Only the most recent of4 resultswithin the time period is included. ComponentValueRef RangeTest MethodAnalysis TimePerformed AtPathologist Signature High Sensitivity Troponin I2,641(HH)<20 ng/L1 1:12 AM [facility] ([facility])Specimen (Source)Anatomical Location / LateralityCollection Method / VolumeCollection TimeReceived TimeBloodVenous blood specimen / Unknown Venipuncture / Wgyokse2609/18/2025 12:01 AM EDT1 12:35 AM EDT Narrative Authorizing ProviderResult TypeResult StatusCarlton BAEZ BLOOD ORDERABLESFinal ResultPerforming OrganizationAddressCity/State/ZIP CodePhone Number [facility] ([facility]) [address] [place] [address] * aPTT - baseline (09/17/2025 3:50 AM EDT)ComponentValueRef RangeTest Method Analysis TimePerformed AtPathologist FzhlxpncxzASS19.225.0 - 35.0 Seconds 09/17/2025 4:37 AM [facility] ([facility])Comment:Clinical significance of the APTT is questionable in the presence of heparin.Specimen (Source) Anatomical Location / LateralityCollection Method / VolumeCollection Time Received TimeBloodVenous blood specimen / UnknownVenipuncture / Unknown 09/17/2025 3:50 AM EDT1 4:00 AM EDT Narrative Authorizing ProviderResult TypeResult StatusBondeshaun BAEZ BLOOD ORDERABLESFinal ResultPerforming OrganizationAddressCity/State/ZIP CodePhone Number [facility] ([facility]) [address] [place] [address] * (ABNORMAL) B-type natriuretic peptide (09/17/2025 3:50 AM EDT)ComponentValue Ref RangeTest MethodAnalysis TimePerformed AtPathologist SignatureBNP1,209(H)0 - 100 pg/mL09/17/2025 4:38 AM [facility] ([facility])Specimen (Source) Anatomical Location / LateralityCollection Method / VolumeCollection Time Received TimeBloodVenous blood specimen / UnknownVenipuncture / Unknown 09/17/2025 3:50 AM EDT1 4:08 AM EDT Narrative Authorizing ProviderResult TypeResult StatusBonavemaikol Boland MDWE[facility] PLA[facility] BLOOD ORDERABLESFinal ResultPerforming OrganizationAddressCity/State/ZIP CodePhone Number [facility] ([facility]) [address] [place] [address] * Lactic acid, plasma (09/17/2025 3:50 AM EDT)ComponentValueRef RangeTest Method Analysis TimePerformed AtPathologist SignatureLactate1.30.5 - 2.2 mmol/L 09/17/2025 4:24 AM [facility] ([facility])Specimen (Source)Anatomical Location / LateralityCollection Method / VolumeCollection TimeReceived Time BloodVenous blood specimen / UnknownVenipuncture / Jbdosky4209/17/2025 3:50 AM EDT1 4:00 AM EDT Narrative Authorizing ProviderResult TypeResult StatusBonaventure [facility] BLOOD ORDERABLESFinal ResultPerforming OrganizationAddressCity/State/ZIP CodePhone Number [facility] ([facility]) [address] [place] [address] * (ABNORMAL) Comprehensive metabolic panel (09/17/2025 3:50 AM EDT)Component ValueRef RangeTest MethodAnalysis TimePerformed AtPathologist SignatureSodium 996932 - 145 mmol/L1 4:39 AM [facility] ([facility])Potassium 3.4(L)3.5 - 5.1 mmol/L1 4:39 AM [facility] ([facility])Chloride 56590 - 107 mmol/L1 4:39 AM [facility] ([facility])ZO86943 - 31 mmol/L1 4:39 AM [facility] ([facility])Anion Ncl121 - 20 mmol/L1 4:39 AM [facility] ([facility])BUN33(H)7 - 25 mg/dL 09/17/2025 4:39 AM [facility] ([facility])Creatinine1.040.70 - 1.30 mg/dL09/17/2025 4:39 AM [facility] ([facility])BUN/Creatinine Ratio31.7 09/17/2025 4:39 AM [facility] ([facility])Pkypwkt191(H)70 - 100 mg/dL 09/17/2025 4:39 AM [facility] ([facility])Calcium8.78.6 - 10.3 mg/dL 09/17/2025 4:39 AM [facility] ([facility])JIT1902 - 39 U/L1 4:39 AM [facility] ([facility])ALT (SGPT)167 - 52 U/L1 4:39 AM [facility] ([facility])Alkaline Keullvfwdow8349 - 104 U/L1 4:39 AM [facility] ([facility])Total Protein6.06.0 - 8.3 g/dL09/17/2025 4:39 AM [facility] ([facility])Albumin3.83.5 - 5.7 g/dL09/17/2025 4:39 AM [facility] ([facility])Total Bilirubin1.1(H)0.3 - 1.0 mg/dL09/17/2025 4:39 AM [facility] ([facility])eGFR69.1>60.0 mL/min/1.73m* 4:39 AM [facility] ([facility])Comment:[facility]???s estimated glomerular filtration rate (eGFR) will [...] TimeBloodVenous blood specimen / Unknown Venipuncture / Whaydmm1409/17/2025 3:50 AM EDT1 4:08 AM EDT Narrative Authorizing ProviderResult TypeResult StatusBonaventure Kya [facility] BLOOD ORDERABLESFinal ResultPerforming OrganizationAddressCity/State/ZIP CodePhone Number [facility] ([facility]) [address] [place] [address] * CARDIAC DEVICE CHECK - REMOTE - PACEMAKER (09/04/2025 11:50 AM EDT) Only the most recent of5 resultswithin the time period is included. Specimen (Source)Anatomical Location / LateralityCollection Method / Volume Collection TimeReceived Time Narrative Authorizing ProviderResult TypeResult StatusGeisinger [facility] MDCV IMPLANTABLE CARDIAC DEVICE PROCEDURESFinal ResultPerforming OrganizationAddressCity/State/ZIP Code Phone Number [facility] * Cardiac device check - Remote pacemaker (09/01/2025 12:00 AM EDT) Only the most recent of4 resultswithin the time period is included. Anatomical RegionLateralityModalityOtherSpecimen (Source)Anatomical Location / LateralityCollection Method / VolumeCollection TimeReceived Time09/01/2025 Narrative Authorizing ProviderResult TypeResult StatusGeisinger [facility] MDCV IMPLANTABLE CARDIAC DEVICE PROCEDURESFinal Result from Last 3 Months Insurance Advance Directives * Full Code (Latest Code Status on File) Date ActivatedDate YztachvieccMryvmbnt58/19/2025 3:02 AM09/20/2025 6:21 PM Care Teams Team MemberRelationshipSpecialtyStart DateEnd Date Rio Frey MD [address] [place] [address] PCP - Muzktnr85/23/22
--- OUTSIDE RECORDS SUMMARY | 2025-09-28 13:13 | XMS_ITS | Clinical Summary ---
Author Organization [employer] [facility] Address [id number] [address] [place] [address] Care Team Providers Care Cdl Program Coordinator Name Role Phone Tk Worrell DO, Charles L Primary Care Provider Allergies No known active allergies Medications MedicationSigDispense QuantityRefillsLast FilledStart DateEnd DateStatus aspirin 81 mg Take 81 mg by mouth daily.Active hydrALAZINE (APRESOLINE) 10 mg tablet 50 mg.Active losartan (COZAAR) 25 mg tablet 1 tabletActive qdlfvlpkn-E7-jqN94-algal oil (METANX, ALGAL OIL,) 3 mg-35 mg-2 mg -90.314 mg capsule Take by mouth. Active DULoxetine (CYMBALTA) 60 mg capsule duloxetine 60 mg capsule,delayed releaseActive ferrous sulfate 325 (65 FE) mg tablet daily.Active polysaccharide iron complex 180 mg iron capsule Pro Fe 180 mg iron capsule TAKE 1 CAPSULE BY MOUTH TWICE DAILYActive montelukast (SINGULAIR) 10 mg tablet 11/22/2021ctive tiotropium (SPIRIVA WITH HANDIHALER) 18 mcg per inhalation capsule Spiriva with HandiHaler 18 mcg and inhalation capsulesActive warfarin (JANTOVEN) 4 mg tablet 4 mg.Active SPIRIVA WITH HANDIHALER 18 mcg per inhalation capsule 11/21/2021ctive Active Problems No known active problems Family History Medical HistoryRelationNameCommentsLung cancerFatherDiabetesMotherPancreatic cancerNephew 1Pancreatic cancerNephew 2Breast cancerSisterRelationNameStatus CommentsFatherDeceasedMotherDeceased (Age 93)Nephew 1DeceasedNephew 2Deceased SisterDeceased Social History Tobacco UseTypesPacks/DayYears UsedDateSmoking Tobacco: FormerCigarettesQuit: 1985Smokeless Tobacco: NeverChildcareAnswerDate RecordedChildcareUnknown 05/11/2019EmploymentAnswerDate JgqgxyyfQbegjujldcOipslou08/12/2019Sex and Gender InformationValueDate RecordedSex Assigned at BirthNot on fileLegal SexMale 07/05/2015 11:22 AM EDTGender IdentityNot on fileSexual OrientationNot on file Last Filed Vital Signs Vital SignReadingTime TakenCommentsBlood Lcddxnhv868/70012/04/2021 9:32 AM EST Pulse--Veomrsxpgoj37.9 ??C (96.6 ??F)12/04/2021 9:32 AM ESTRespiratory Rate-- Oxygen Saturation--Inhaled Oxygen Concentration--Eajvfv08.9 kg (218 lb) 12/04/2021 9:32 AM CWVSrrqwc017 cm (5' 8.5 )12/04/2021 9:32 AM ESTBody Mass Index32.66012/04/2021 9:32 AM EST Plan of Treatment Health MaintenanceDue DateLast DoneCommentsDepression Eywcjhvih41/23/1949Tobacco Klmbeonzc04/23/1949DTaP,Tdap and Td Vaccines (1 - Tdap)1955Zoster (Shingles) Vaccine (1 of 2)1986Fall Risk Nmoewzfaj08/23/2002COVID-19 Vaccine ( season)/12/2020, 01/10/2021, 12/20/2020 Influenza Ybcourx68/01/2018, 11/03/2017 Medical Devices Not on file Insurance Care Teams Team MemberRelationshipSpecialtyStart DateEnd Date Rio Frey Jr., [facility] [place] [address] PCP - GeneralInternal Zqiqttnd92/27/21
--- OUTSIDE RECORDS SUMMARY | 2025-09-28 13:13 | XMS_ITS | Encounter Summary ---
Author Organization [facility] Address [address] [place] [address] Care Team Providers Care Manager Operations And Procurement Name Role Phone Rio Frey MD Primary Care Provider [phone] Encounter Details DateTypeDepartmentCare Team (Latest Contact Info)Decnoscapsm48/17/2025Travel Social History Tobacco UseTypesPacks/DayYears UsedDateSmoking Tobacco: FormerCigarettes Smokeless Tobacco: NeverAlcohol UseStandard Drinks/WeekCommentsNever0 (1 standard drink = 0.6 oz pure alcohol)Caffeine intake: noneSex and Gender InformationValueDate RecordedSex Assigned at BirthNot on fileLegal SexMale 02/11/2023 6:56 PM EDTGender IdentityNot on fileSexual OrientationNot on file documented as of this encounter Plan of Treatment Not on file documented as of this encounter Visit Diagnoses Not on filedocumented in this encounter Care Teams Team MemberRelationshipSpecialtyStart DateEnd Date Rio Frey MD [facility] [place], [place] [id number] PCP - GeneralInternal Medicine07/29/23documented as of this encounter
--- OUTSIDE RECORDS SUMMARY | 2025-09-28 13:30 | XMS_ITS | CCD ---
Author Organization [facility] Care Team Providers Care Network Contractor Name Role Phone AUXIER, KENDRA SASHA Unavailable [...] Unavailabl e MORLEY, LEXI MILKA Unavailable Unavailable [place], Kendra Sasha~[phone] Unavailable Unavailable ValoneRio Marshall Unavailable Unavailabl e Valone, Rio Marshall Unavailable Unavailabl e Arsalan Leija Unavailable Unavailable VALONERIO MARSHALL Unavailable Unavailabl e MORLEY, LEXI MILKA Unavailable Unavailable Rio Lal Unavailable Unavailabl e RIO LAL Referring Unavailable RIO LAL Primary Care Unavailable YUE ANTONIO Attending Unavailable YUE ANTONIO Admitting Unavailable GERBER PEETR Admitting Unavailable GERBER PETER Attending Unavailable RIO [...] Care Provider Jose Amado MD Attending Provider [phone] Jose Amado Attending Unavailable Jose Amado Admitting Unavailable RUSAMY REID Attending Unavailable RUSHER, AMY Wetzel Attending Unavailable RUSHER, AMY Wetzel Attending Unavailable RUSHER, AMY Wetzel Attending Unavailable ADELUISA POLO Referring Unavailable PARISA CAMPBELL Referring Unavailable LUNA KIMBLE Referring Unavailable LUNA KIMBLE Referring Unavailable VOLODYMYR YUAN Referring Unavailable ADELUISA Referring Unavailable VOLODYMYR YUAN Referring Unavailable LUISA BOOKER Referring Unavailable PARISA CAMPBELL Attending Unavailable VOLODYMYR YUAN Referring Unavailable KWABENAVOLODYMYR Villafana Referring Unavailable VOLODYMYR YUAN Referring Unavailable VOLODYMYR YUAN Referring Unavailable VOLODYMYR YUAN Referring Unavailable KINGS PITTS Attending Unavailable JESE MICHEL Admitting Unavailable NAEEM LOMELI Referring Unavailable VOLODYMYR YUAN Referring Unavailable Allergies Allergy ClassificationReported Allergen(s)Allergy TypeDate of OnsetReaction(s) Facility (1 source)48963,00; Translations: [Unknown]Propensity to adverse reactions (disorder)81-82-2346[facility] Repository Medications Current Medications MedicationDrug Class(es)DatesSig (Normalized)Sig (Original)ascorbic acid 500 mg chewable tablet (3 sources)Vitamin Ctake 1 tablet by mouth once dailyascorbic acid (Vitamin C) 500 MG tablet Take 500 mg by mouth Daily Activeatorvastatin 40 mg oral tablet (6 sources)HMG-CoA Reductase Inhibitoratorvastatin (Lipitor) 40 MG tablet 40 mg 1 (one) time each day at the same time Activebudesonide 0.25 mg/ml inhalation suspension (3 sources)Corticosteroidtake 0.5 mg by mouth in the morningbudesonide (Pulmicort) 0.5 MG/2ML nebulizer solution Take 0.5 mg by nebulization in the morning and0.5 mg before bedtime. Rinse mouth with water after use to reduce aftertaste and incidence of candidiasis. Do not swallow.. Activecarvedilol 12.5 mg oral tablet (6 sources)alpha-Adrenergic Cathy, beta-Adrenergic BlockerStart: 10-23-2023 take 1 tablet by mouth in the morningcarvedilol (Coreg) 12.5 MG tablet Take 12.5 mg by mouth in the morning and 12.5 mg in the evening. Take with meals. 10/23/2023 Activecholecalciferol 0.025 mg oral capsule (3 sources)Vitamin Dtake 1 capsule by mouth once dailycholecalciferol (Vitamin D-3) 25 MCG (1000 UT) capsule Take 1,000 Units by mouth Daily ActiveDULoxetine 30 mg delayed release oral capsule (6 sources)Serotonin and Norepinephrine Reuptake InhibitorStart: 10-23-2023 DULoxetine (Cymbalta) [address] capsule Take 30 mg by mouth 10/23/2023 Active ferrous sulfate 325 mg oral tablet (3 sources)take 1 tablet by mouth at mealtimeferrous sulfate 325 (65 Fe) MG tablet Take 325 mg by mouth in the morning. Take with meals. Activefurosemide 20 mg oral tablet (3 sources)Loop DiureticStart: 29-22-9853yufz 1 tablet by mouth once daily furosemide (Lasix) 20 MG tablet Take 20 mg by mouth Daily 01/01/2025 Active hydrALAZINE hydrochloride 10 mg oral tablet (6 sources)Arteriolar VasodilatorhydrALAZINE (Apresoline) 10 MG tablet 10 mg in the morning and 10 mg at noon and 10 mg in the evening and 10 mg before bedtime. ActivehydroCHLOROthiazide 12.5 mg oral tablet (6 sources)Thiazide DiureticStart: 52-36-4477azduiWLMQNKmflzioza (HYDRODiuril) 12.5 MG tablet 12.5 mg 10/03/2023 Activelosartan potassium 25 mg oral tablet (6 sources)Angiotensin 2 Receptor Blockerlosartan (Cozaar) 25 MG tablet 25 mg 1 (one) time each day at the same time Activemontelukast 10 mg oral tablet (6 sources)Leukotriene Receptor AntagonistStart: 16-83-9528bmfshuamgad (Singulair) 10 MG tablet 09/12/2023 ActiveMultiple Vitamins-Minerals (EYE VITAMINS PO) (3 sources)Multiple Vitamins-Minerals (EYE VITAMINS PO) Take by mouth Active omeprazole 40 mg delayed release oral capsule (6 sources)Proton Pump InhibitorStart: 08-37-1164chycmkjhxa (PriLOSEC) [address] capsule 40 mg 09/16/2023 Activeondansetron 4 mg oral tablet (6 sources)Serotonin-3 Receptor AntagonistStart: 76-49-0369blnrmaagmax (Zofran) 4 MG tablet 10/29/2023 Activemicroencapsulated potassium chloride 20 meq extended release oral tablet (3 sources)Start: 67-41-2262vhtoasitp chloride CR (Klor-Con M20) 20 MEQ ER tablet Take 20 mEq by mouth Daily 12/08/2024 Activesacubitril 49 mg / valsartan 51 mg oral tablet (3 sources)Angiotensin 2 Receptor Blockertake 1 tablet by mouth in the morning sacubitril-valsartan (Entresto) 49-51 MG tablet Take 1 tablet by mouth in the morning and 1 tablet before bedtime. Activesucralfate 1000 mg oral tablet (3 sources)Aluminum ComplexStart: 93-02-6936ktwxaessod (Carafate) 1 g tablet 1 g 01/05/2025 Activewarfarin sodium 4 mg oral tablet (6 sources)Vitamin K AntagonistStart: 43-38-5177Qnubursy 4 MG tablet 4 mg 10/03/2023 Active Problems Active Problems Problem ClassificationProblemDateDocumented DateEpisodic/ChronicAcute myocardial infarction (2 sources)Non-ST elevation (NSTEMI) myocardial infarction; Translations: [Non- ST elevation (NSTEMI) myocardial infarction]Onset: 72-13-3292KpmwdwaUsvqdsf dysrhythmias (5 sources)Unspecified atrial fibrillation; Translations: [UNSPECIFIED ATRIAL FIBRILLATION]Onset: 89-23-9384UocaugtOrjucfg kidney disease (1 source)Chronic kidney disease; 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]Onset: 39-93-4466Ruiwlpuevs disorders (6 sources)Encounter for adjustment and management of other part of cardiac pacemaker; Translations: [Presenceof cardiac pacemaker]Onset: 52-30-9327Duikgwb Congestive heart failure; nonhypertensive (7 sources)Heart failure, unspecified; Translations: [Chronic diastolic (congestive) heart failure]Onset: 14-75-4542GpxtmpvTwarizoo atherosclerosis and other heart disease (4 sources)Old myocardial infarction; Translations: [Atherosclerotic heart disease of [place] coronary artery without angina pectoris]Onset: 10-29-2022 ChronicCoronary atherosclerosis and other heart disease (3 sources)Presence of coronary angioplasty implant and graft; Translations: [PRESENCE COR ANGPLSTY IMPLANT AND GRAFT]Onset: 60-20-0316MwbxhvvjYkfsbksyt of lipid metabolism (1 source)Pure hypercholesterolemia, unspecified; Translations: [PURE HYPERCHOLESTEROLEMIA UNSPEC]Onset: 93-19-7764SythltwNchexgqbxm disorders (1 source)Gastro-esophageal reflux disease without esophagitis; Translations: [GERD WITHOUT ESOPHAGITIS]Onset: 93-05-1681PtlvqcxYtjuaaglv hypertension (2 sources)Essential (primary) hypertension; Translations: [Essential (primary) hypertension]Onset: 45-88-1342LlesqhgMvgnq valve disorders (2 sources)Nonrheumatic tricuspid (valve) insufficiency; Translations: [Nonrheumatic tricuspid (valve) insufficiency]Onset: 51-68-9296Fvbddsr Hypertension with complications and secondary hypertension (1 source)Hypertensive heart disease with heart failure; Translations: [HTN HEART DISEASE W/HEART FAIL]Onset: 96-72-2068SpwgjbcJilzyeh (3 sources)Onychomycosis due to dermatophyte ; Translations: [Tinea unguium] 70-09-4360TttasfmhLklzshqxugn deficiencies (1 source)Vitamin D deficiency, unspecified; Translations: [VITAMIN D DEFICIENCY UNSPECIFIED]Onset: 96-85-3284LgwfssaLzjqs aftercare (5 sources)Encounter for therapeutic drug level monitoring; Translations: [ENC THERAPEUTC DRUG LEVL MONITORING]Onset: 72-32-7503SdaaypedDmsrf aftercare (1 source)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 faculty for medical 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 (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) use of anticoagulants; Translations: [FIRE EXTINGUISHER SPRINKLER INSPECTOR CURRNT USE ANTICOAGULANTS]Onset: 01-20-8508PlnyrrfpMvjye connective tissue disease (1 source)Presence of artificial hip joint, bilateral; Translations: [PRESENCE ARTIFICIAL HIP JOINT BILAT]Onset: 06-19-4433OwoelehBlkdk connective tissue disease (6 sources)Pain in toe; Translations: [Pain in right toe(s)]70-27-9535Gdxfnkpj Other nutritional; endocrine; and metabolic disorders (1 source)Morbid (severe) obesity due to excess calories; Translations: [MORBID SEVERE OBES D/T EXCESS LORENA]Onset: 48-89-0012WfisbkgLtmjl nutritional; endocrine; and metabolic disorders (1 source)Body mass index (BMI) 34.0-34.9, adult; Translations: [BODY MASS INDEX BMI 34.0-34.9 ADULT]Onset: 76-51-8418KvephskNiqpq skin disorders (3 sources)Dystrophia unguium; Translations: [Nail dystrophy]58-74-3286Enbtbkki Residual codes; unclassified (1 source)Sleep apnea, unspecified; Translations: [SLEEP APNEA UNSPECIFIED] Onset: 32-16-1702CfipjbfEfpjbiejtlcd (2 sources)Chronic atrial fibrillation, unspecified; Translations: [Chronic atrial fibrillation, unspecified]Onset: 49-13-1427Tgqxtnohjarn (2 sources)Permanent atrial fibrillation; Translations: [Permanent atrial fibrillation]Onset: 06-19-2025 Past or Other Problems Problem ClassificationProblemDateDocumented DateEpisodic/ChronicAbdominal pain (4 sources)Unspecified abdominal pain; Translations: [UNSPECIFIED ABDOMINAL PAIN]Onset: 50-16-0073TcikxkywPonqvjhmij and other anemia (1 source)Iron deficiency anemia, unspecified; Translations: [IRON DEFICIENCY ANEMIA UNSPECIFIED]Onset: 96-89-4888LduduvlcDlpesvrs mellitus without complication (1 source)Other abnormal glucose; Translations: [OTHER ABNORMAL GLUCOSE]Onset: 20-92-0894NhteevjyMaagl and electrolyte disorders (1 source)Dehydration; Translations: [DEHYDRATION]Onset: 87-45-5554Nywdxvpu Nausea and vomiting (1 source)Nausea; Translations: [NAUSEA]Onset: 52-14-2063IxpuzeroVkaenbpnwrzts gastroenteritis (1 source)Noninfective gastroenteritis and colitis, unspecified; Translations: [NONINFECTIVE GE AND COLITIS UNS]Onset: 76-77-7803AdcnoltzAokjl aftercare (1 source)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; Translations: [OTH ASSISTED CURRENT DRUG THERAPY]Onset: 70-58-8941XavzpougVhhli aftercare (1 source)adjunct faculty for medical terminology (current) use of aspirin; Translations: [FIRE EXTINGUISHER SPRINKLER INSPECTOR CURRENT USE OF ASPIRIN]Onset: 52-44-0773RuzlnhiwIfjasojdy; thrombophlebitis and thromboembolism (1 source)Personal history of other venous thrombosis and embolism; Translations: [PERS HX OTH VENOUS THROMBOSIS AND EMBO]Onset: 21-47-6207Uwcskzsl Pulmonary heart disease (1 source)Personal history of pulmonary embolism; Translations: [PERSONAL HISTORY PULMONARY EMBOLISM]Onset: 29-16-6849OyfnnxgbGgrtibvri and history of mental health and substance abuse codes (1 source)Personal history of nicotine dependence; Translations: [PERSONAL HISTORY OF NICOTINE DEPEND]Onset: 25-41-0462Kqohghwf Results Test NameValueInterpretationReference GlabrWfxfvcmi67dd 51-45-880869Jtsud Case Management Update Multidisciplinary rounds have been completed. Barriers to Discharge: Patient is medically ready for hospital discharge at this time. AVS has been completed, and primary RN has been notified of patients discharge readiness. Patient will discharge to home and will arrange for daughter to provide discharge transportation. No further OTM needs identified at this time. [facility] [place] will continue to follow patient and assist with any further discharge related needs. Diet: Dietary Orders (From admission, onward) Start Ordered 09/19/25 1855 Regular Diet Heart Healthy/HTN, CABG,Stroke, (2gNA, low fat, low cholesterol) Diet effective now Question Answer Comment Room Service? Yes Fat restriction: Heart Healthy/HTN, CABG,Stroke, (2gNA, low fat, low cholesterol) 09/19/25 1854 09/18/25 1310 Special Kitchen Request Once Comments: Jesup burger only mustard, caffeine-free coke, sprite 09/18/25 [...] PT? Answer: Eval and treat. 09/17/25 0302 09/17/25 0303 OT eval and treat Until therapy completed Question: Reason for OT? Answer: Eval and treat. 09/17/25 0302[facility]The patient is Moderately Stable - Low risk [...] The clinical goals for the shift include VSSNormalUniversCity HospitalBASIC METABOLIC PANELon 05-33-1925Nzmoe gap [Moles/Vol]11 mmol/LNormal7-20 [facility] HospitalComment on above:Performed By: #### [id number] ####[facility] ([facility])[address] [place] [place], [place] [address]Agochax [Mass/Vol]8.8 mg/dLNormal8.6-10.3UnRegency Hospital CompanyComment on above:Performed By: #### [id number] ####[facility] ([facility])[address], [place] [address]Tyjempks [Moles/Vol]108 mmol/WRzub63-161AznviebhsgRegency Hospital CompanyComment on above:Performed By: #### [id number] ####[facility] ([facility])[address], [place] [address]EB6 [Moles/Vol]21 mmol/KPrfhzs06-76 [facility] HospitalComment on above:Performed By: #### [id number] ####[facility] ([facility])[address] [place] [address]Zkioqicbzn [Mass/Vol]0.85 mg/dLNormal0.70-1.30UnRegency Hospital CompanyComment on above:Performed By: #### [id number] ####[facility] ([facility])[address] [address]VMUERISAYL FILTRATION RATE ML/MIN/1.73 SQ M.ARNCBYHUL29.6 mL/min/1.73m*2Normal>60.0UnRegency Hospital CompanyComment on above: Result Comment: [facility]???s estimated glomerular filtration rate (eGFR) will [...] potential consequences that do not disproportionately affect anyone group of individuals.Performed By: #### [id number] ####[facility] ([facility])[address] [place] [address]Puxtzde [Mass/Vol]108 mg/eXDbtb49-331TwcjdyxrpwRegency Hospital CompanyComment on above:Performed By: #### [id number] ####[facility] ([facility])[address] [place] [address]Yocjswqlv [Moles/Vol]3.4 mmol/L Low3.5-5.1UnRegency Hospital CompanyComment on above:Performed By: #### [id number] ####[facility] ([facility])[address] [place] [address]Ksoiwg [Moles/Vol]137 mmol/UPhdvvg446-385NygviebwbpRegency Hospital CompanyComment on above:Performed By: #### [id number] ####[facility] ([facility])[address] [place] [address]Kwwg nitrogen [Mass/Vol]28 mg/dLHigh7-25UnRegency Hospital CompanyComment on above:Performed By: #### [id number] ####[facility] ([facility])[address] [place] [address]AEXD NITROGEN/CREATININE (MASS RATIO) IN SER/PLAS32.9NormalUniversCity HospitalComment on above: Performed By: #### [id number] ####[facility] ([facility])[address] [place] [address]KICoh 16-94-2700Bszfdebnpsn distribution width (RBC) [Ratio]13.2 % Sdxkir85.5-15.0UnRegency Hospital CompanyComment on above:Performed By: #### [id number] ####[facility] ([facility])[address] [place] [address] ERYTHROCYTE MEAN CORPUSCULAR HEMOGLOBIN CONCENTRATION (G/DL) BY QWPRYYVJB51.5 g/jLZrrxjw92.0-35.0UnRegency Hospital CompanyComment on above:Performed By: #### [id number] ####[facility] ([facility])[address] [place], [place] [address]Opgpmsfvwl (Bld) [Volume fraction]32.0 %Low39.0-50.0UnRegency Hospital CompanyComment on above:Performed By: #### [id number] ####[facility] ([facility])[address] [place], [place] [address]Nayhosowar (Bld) [Mass/Vol]10.4 g/dL Low13.0-17.0UnRegency Hospital CompanyComment on above:Performed By: #### [id number] ####[facility] ([facility])[address] [place], [place] [address]QWE (RBC) [Entitic mass]30.9 jaVwpkbu94.0-33.0UnRegency Hospital Company Comment on above:Performed By: #### [id number] ####[facility] ([facility])[address] [place], [place] [address]WNX (RBC) [Entitic vol]95.0 oRKutpiz73.0-98.0 [facility] HospitalComment on above:Performed By: #### [id number] ####[facility] ([facility])[address] [place] [address]PDBFUFPPW (10*3/UL) IN BLOOD AUTOMATED [id number] 10*3/jPZozheb551-345ViiadfqgjzRegency Hospital CompanyComment on above:Performed By: #### [id number] ####[facility] ([facility])[address] [place] [address]WTF (Bld) [#/Vol]3.37 10*6/uLLow 4.20-5.70UnRegency Hospital CompanyComment on above:Performed By: #### [id number] ####[facility] ([facility])[place] [address]BLP (Bld) [#/Vol]8.09 10*3/uLNormal4.00-10.60UnRegency Hospital CompanyComment on above:Performed By: #### [id number] ####[facility] ([facility])Linda [place] [facility] COMM[facility]OSPITALLedy [place] [address]SYYTHNKKFdb 53-49-2877Crotspycb [Mass/Vol]1.8 mg/dLLow1.9-2.7 [facility] HospitalComment on above:Performed By: #### [id number] #### [facility] ([facility]) [place], [place] [address]mq 49-29-533340Qxg patient is Moderately Stable - Low risk of patient condition declining or worsening The patient's goals for the shift include comfort The clinical goals for the shift include VSS Problem: Pain - Adult Goal: Verbalizes/displays adequate comfort level or baseline comfort level Outcome: Progressing Flowsheets (Taken 09/18/2025 2317) Verbalizes/displays adequate comfort level or baseline comfort [...] and behaviors that affect risk of falls [place] fall precautions as indicated by assessment Educate [...] chronic conditions and comorbid symptoms for stability, deterioration, or improvement Update acute care plan with appropriate goals if chronic or comorbid symptoms are exacerbated and prevent overall improvement and dischargeNormalUniversCity HospitalANTI-XA (HEPARIN LEVEL)on 98-67-1015SMHQPVR UNFRACTIONATED (U/ML) IN PPP BY CHROMOGENIC METHOD<0.10Invalid Interpretation Code0.3-0.7 [facility] HospitalComment on above:Order Comment: Check anti-Xa level every 6 hours while on heparin infusion, or per protocol.Result Comment: Rivaroxaban and Apixaban will interfere with the anti Xa assay used to monitor UFH and LMWH.Performed By: #### [id number] ####[facility] ([facility]ER)[address] [place], [place] [address]MOIXLAA UNFRACTIONATED (U/ML) IN PPP BY CHROMOGENIC METHOD<0.10Invalid Interpretation Code0.3-0.7UnRegency Hospital CompanyComment on above:Order Comment: Check anti-Xa level every 6 hours while on heparin infusion, or per protocol.Result Comment: Rivaroxaban and Apixaban will interfere with the anti Xa assay used to monitor UFH and LMWH.Performed By: #### [id number] ####[facility] ([facility])[address] [place] [address] BASIC METABOLIC PANELon 71-37-7010Mkemp gap [Moles/Vol]11 mmol/LNormal7-20 [facility] HospitalComment on above:Performed By: #### [id number] ####[facility] ([facility])[address] [place] [address]Ciokcop [Mass/Vol]8.9 mg/dLNormal8.6-10.3UnRegency Hospital CompanyComment on above:Performed By: #### [id number] ####[facility] ([facility])[address] [place], [place] [address]Oytfctkp [Moles/Vol]108 mmol/VRbem43-080PknijfesbgRegency Hospital CompanyComment on above:Performed By: #### [id number] ####[facility] ([facility])[address] [place], [place] [address]CB0 [Moles/Vol]21 mmol/XZbiblx50-52 [facility] HospitalComment on above:Performed By: #### [id number] ####[facility] ([facility])[address] [place], [place] [address]Ygvdjtxmqd [Mass/Vol]0.94 mg/dLNormal0.70-1.30UnRegency Hospital CompanyComment on above:Performed By: #### [id number] ####[facility] ([facility])[address] [place], [place] [address]OCGHRXTVRM FILTRATION RATE ML/MIN/1.73 SQ M.FYZFCAZLB42.0 mL/min/1.73m*2Normal>60.0UnRegency Hospital CompanyComment on above: Result Comment: [facility]???s estimated glomerular filtration rate (eGFR) will [...] potential consequences that do not disproportionately affect anyone group of individuals.Performed By: #### [id number] ####[facility] ([facility])[address], [place] [address]Numblbg [Mass/Vol]116 mg/hAQaik79-510VzpdlcztwxRegency Hospital CompanyComment on above:Performed By: #### [id number] ####[facility] ([facility])[address], [place] [address]Wwncjwnoc [Moles/Vol]3.4 mmol/L Low3.5-5.1UnRegency Hospital CompanyComment on above:Performed By: #### [id number] ####[facility] ([facility])[address], [place] [address]Ymjbtz [Moles/Vol]137 mmol/CCwtiog971-213GvehweahlyRegency Hospital CompanyComment on above:Performed By: #### [id number] ####[facility] ([facility])[address], [place] [address]Wsly nitrogen [Mass/Vol]28 mg/dLHigh7-25UnRegency Hospital CompanyComment on above:Performed By: #### [id number] ####[facility] ([facility])[address], [place] [address]YWEH NITROGEN/CREATININE (MASS RATIO) IN SER/PLAS29.8NormalUniOhioHealth Grady Memorial HospitalComment on above: Performed By: #### [id number] ####[facility] ([facility])[address], [place] [address]PQup 59-99-3143YQX&P reviewed. The patient was examined and there are no changes to the H&P. I will proceed with cardiac catheterization with left heart catheterization and coronary angiography given NSTEMI. I have explained to him the procedure with risks and benefits, including risks of heart attack, stroke and , as well as contrast nephropathy and radiation injury. he understands and agrees.Normal [facility] HospitalMAGNESIUMon 49-08-3003Uudcghvri [Mass/Vol]1.9 mg/dLNormal1.9-2.7UnRegency Hospital CompanyComment on above:Performed By: #### [id number] ####[facility] ([facility])[address] [place], [place] [address]WHONXUXZxp 77-34-9605AZACEWBKRozmkyk report given to MARYAN Pereira from MARYAN Fernandez. analytical laboratory technician RN presented site to bedside RN. Bedside RN visualized site and palpated site to ensure there was no hematoma or bruising, and femoral site appears flat. Both bedside RN and floating labor gang supervisor RN mutually agreed that the site presents normal. analytical laboratory technician RN and bedside RN either palpated or used a doppler to assess pulses on the patient.NormalUnRegency Hospital CompanyNURSNOTEReport given to MARYAN Pereira from Rebecca STEINBERG Any medications or safety alerts were reviewed. Any pending diagnostics and notifications were also reviewed, as well as any safety concerns or issues, abnormal labs, abnormal imagining, and abnormal assessment findings. Questions were answered.NormalUnRegency Hospital CompanyPOTASSIUMon 09-19-2025 Potassium [Moles/Vol]4.0 mmol/LNormal3.5-5.1UnRegency Hospital Company Comment on above:Performed By: #### [id number] ####[facility] ([facility])[address] [place], [place] [address]CKSLREQ-YINdr 20-52-1999ISB IN PPP BY COAGULATION ASSAY1.58Ayif3.90-1.10UnRegency Hospital CompanyComment on above:Result Comment: [facility] RECOMMENDED INR FOR WARFARIN THERAPY CONDITION INR PROPHYLAXIS OF VENOUS THROMBOSIS 2-3 (HIGH-RISK SURGERY) TREATMENT OF VENOUS THROMBOSIS 2-3 TREATMENT OF PULMONARY EMBOLISM 2-3 PREVENTION OF SYSTEMIC EMBOLISM: 2-3 ACUTE MYOCARDIAL INFARCTION TISSUE HEART VALVES VALVULAR HEART DISEASE ATRIAL FIBRILLATION RECURRENT SYSTEMIC EMBOLISM MECHANICAL HEART VALVE 2.5-3.5 FROM: ORAL ANTICOAGULANTS. MECHANISM OF ACTION, CLINICAL EFFECTIVENESS, AND OPTIMAL THERAPEUTIC RANGE. CHEST 1995;108:231S-246S.Performed By: #### [id number] ####[facility] ([employer])[address] [place], [place] [address]ADCDCLPHDMV TIME (PT) IN PPP BY COAGULATION ASSAY18.8 BepktxrEagd40.3-14.8UnRegency Hospital CompanyComment on above:Performed By: #### [id number] ####[facility] ([facility]AKER)[address] [place], [place] [address]hg 93-05-050033Uof patient is Moderately Stable - Low risk [...] and behaviors that affect risk of falls [place] fall precautions as indicated by assessment Educate [...] chronic conditions and comorbid symptoms for stability, deterioration, or improvement Update acute care plan with appropriate goals if chronic or comorbid symptoms are exacerbated and prevent overall improvement and dischargeNormalUniversity Madison HealthANTI-XA (HEPARIN LEVEL)on 09-13-6206ZMIQYYN UNFRACTIONATED (U/ML) IN PPP BY CHROMOGENIC METHOD0.76 IU/mLHigh0.3-0.7UnRegency Hospital CompanyComment on above:Order Comment: Check anti-Xa level every 6 hours while on heparin infusion, or per protocol.Result Comment: Rivaroxaban and Apixaban will interfere with the anti Xa assay used to monitor UFH and LMWH. Performed By: #### [id number] #### [facility] ([facility]) [address] [place], [place] [address]XHSGOSO UNFRACTIONATED (U/ML) IN PPP BY CHROMOGENIC METHOD0.80 IU/mLHigh0.3-0.7UnRegency Hospital CompanyComment on above:Result Comment: Rivaroxaban and Apixaban will interfere with the anti Xa assay used to monitor UFH and LMWH.Performed By: #### [id number] #### [facility] ([facility]) [address] [place], [place] [address]NOAQU METABOLIC PANELon 67-50-9320Ljknd gap [Moles/Vol]12 mmol/L Normal7-20UnRegency Hospital CompanyComment on above:Performed By: #### [id number] #### [facility] ([facility]) [address] [place], [place] [address]Ihzlpbg [Mass/Vol]8.9 mg/dLNormal8.6-10.3UnRegency Hospital CompanyComment on above:Performed By: #### [id number] #### [facility] ([facility]) [address], [place] [address]Wxdqnfch [Moles/Vol]107 mmol/MMqhkro44-088OjytlmzmepRegency Hospital CompanyComment on above:Performed By: #### [id number] #### [facility] ([facility]) [address] [place], [place] [address]CK9 [Moles/Vol]23 mmol/FTaxsld93-32PucagsqqqlRegency Hospital CompanyComment on above:Performed By: #### [id number] #### [facility] ([facility]) [address] [facility] [place], [place] [address]Dzmmhmfeza [Mass/Vol]0.89 mg/dLNormal0.70-1.30UnRegency Hospital CompanyComment on above:Performed By: #### [id number] #### [facility] ([facility]) [address] [place], [place] [address]AJZWUDBBCL FILTRATION RATE ML/MIN/1.73 SQ M.RDCYEEJFY53.4 mL/min/1.73m*2Normal>60.0UnRegency Hospital CompanyComment on above: Result Comment: [facility]???s estimated glomerular filtration rate (eGFR) will [...] potential consequences that do not disproportionately affect anyone group of individuals.Performed By: #### [id number] #### [facility] ([facility]) [address] [place], [place] [address]Frhwrnh [Mass/Vol]120 mg/pEHaln14-628FfaduolgutRegency Hospital CompanyComment on above:Performed By: #### [id number] #### [facility] ([facility]) [address] [place], [place] [address]Dvqkqbdoz [Moles/Vol]3.8 mmol/LNormal3.5-5.1UnRegency Hospital CompanyComment on above:Performed By: #### [id number] #### [facility] ([facility]) [address] [place] [place], [place] [address]Gybnda [Moles/Vol]138 mmol/QSlbjmv830-076OsfuqpburhRegency Hospital CompanyComment on above:Performed By: #### [id number] #### [facility] ([facility]) [address] [place], [place] [address]Yuqm nitrogen [Mass/Vol]26 mg/dLHigh7-25UnRegency Hospital CompanyComment on above:Performed By: #### [id number] #### [facility] ([facility]) [address] [place], [place] [address]VUKZ NITROGEN/CREATININE (MASS RATIO) IN SER/PLAS29.2Normal [facility] Reserve HospitalComment on above:Performed By: #### [id number] #### [facility] ([facility]) [address] [place], [place] [address]EXRul 31-56-8975Jopeoamqicx distribution width (RBC) [Ratio]13.2 %Drwftr86.5-15.0UnRegency Hospital CompanyComment on above:Performed By: #### [id number] ####[facility] ([facility])[address] [facility] [address] ERYTHROCYTE MEAN CORPUSCULAR HEMOGLOBIN CONCENTRATION (G/DL) BY JZOZOASWQ86.0 g/cPYxqjyi86.0-35.0UnRegency Hospital CompanyComment on above:Performed By: #### [id number] ####[facility] ([facility])[address] [place], [place] [address]Fsongzpkyg (Bld) [Volume fraction]37.5 %Low39.0-50.0UnRegency Hospital CompanyComment on above:Performed By: #### [id number] ####[facility] (BE[facility]ER)[address] [place] [address]Tkfrwngqqn (Bld) [Mass/Vol]12.0 g/dL Low13.0-17.0UnRegency Hospital CompanyComment on above:Performed By: #### [id number] ####[facility] ([facility])[address] [place] [address]ZAS (RBC) [Entitic mass]31.1 joEbelqv04.0-33.0UnRegency Hospital Company Comment on above:Performed By: #### [id number] ####[facility] ([facility])[address] [place] [address]MFW (RBC) [Entitic vol]97.2 bQQrxrcs48.0-98.0 [facility] HospitalComment on above:Performed By: #### [id number] ####[facility] ([facility])[address] [place] [address]WKUHNVSFH (10*3/UL) IN BLOOD AUTOMATED FPBBH519 10*3/fTXcgjvw365-626SexrvvfzhtRegency Hospital CompanyComment on above:Performed By: #### [id number] ####[facility] ([facility])[address] [place] [address]EPU (Bld) [#/Vol]3.86 10*6/uLLow 4.20-5.70UnRegency Hospital CompanyComment on above:Performed By: #### [id number] ####[facility] ([facility])[address] [place] [address]BON (Bld) [#/Vol]8.30 10*3/uLNormal4.00-10.60UnRegency Hospital CompanyComment on above:Performed By: #### [id number] ####[facility] ([facility]AKER)[address] [place], [place] [address]HFKJ SENSITIVITY TROPONIN Ion 08-76-6787HR TROPONIN I (NG/L) 2641 ng/LCritically high<20UnRegency Hospital CompanyComment on above: Performed By: #### [id number] ####[facility] ([facility])[address] [place], [place] [address]BNNGK PANELon 78-90-0069AYLN/HDL3.1 mg/dLNormalUniOhioHealth Grady Memorial HospitalComment on above:Performed By: #### [id number] #### [facility] ([facility]) [address] [facility] [place], [place] [address]Airtclhfwwq [Mass/Vol]106 mg/iRZlx362-086KolxmxpcpyRegency Hospital CompanyComment on above:Performed By: #### [id number] #### [facility] ([facility]) [address] [place], [place] [address]Sxjzezoye [Mass/Vol]67 mg/dLNormal<150UnRegency Hospital CompanyComment on above:Result Comment: TRIGLYCERIDE REFERENCE RANGE: 20 YEARS AND OLDER CARDIOVASCULAR RISK LESS THAN 150 mg/dL LOW RISK 150 TO 199 mg/dL BORDERLINE RISK 200 mg/dL AND GREATER HIGH RISKPerformed By: #### [id number] #### [facility] ([facility]) [address] [place], [place] [address]Kwzbslojr [Mass/Vol]59 mg/dLNormal0-160UnRegency Hospital CompanyComment on above:Performed By: #### [id number] #### [facility] ([facility]) [address] [place], [place] [address]Kzopetpzu [Mass/Vol]34 mg/eMQaoeif95-56SdwvqvdkkdRegency Hospital CompanyComment on above:Performed By: #### [id number] #### [facility] ([facility]) [address] [place], [place] [address]WNT HDL CHOL. (LDL+VLDL)72NormalUniversCity HospitalComment on above:Performed By: #### [id number] #### [facility] ([facility]) [address] [facility] [place] [address]KYSOV VLDL-C13 mg/dLNormal0-40UnRegency Hospital CompanyComment on above:Performed By: #### [id number] #### [facility] (PRETTY) [address] [place], [place] [address]KWKEDMKYNic 00-01-0393Gjqdjizlg [Mass/Vol]2.1 mg/dLNormal1.9-2.7 [facility] HospitalComment on above:Performed By: #### [id number] #### [facility] [address] [facility] [place], [place] [address]SRVMXYI-AKHxy 50-03-0920QZL IN PPP BY COAGULATION ASSAY2.19High 0.90-1.10UnRegency Hospital CompanyComment on above:Result Comment: [facility] RECOMMENDED INR FOR WARFARIN THERAPY CONDITION INR PROPHYLAXIS OF VENOUS THROMBOSIS 2-3 (HIGH-RISK SURGERY) TREATMENT OF VENOUS THROMBOSIS 2-3 TREATMENT OF PULMONARY EMBOLISM 2-3 PREVENTION OF SYSTEMIC EMBOLISM: 2-3 ACUTE MYOCARDIAL INFARCTION TISSUE HEART VALVES VALVULAR HEART DISEASE ATRIAL FIBRILLATION RECURRENT SYSTEMIC EMBOLISM MECHANICAL HEART VALVE 2.5-3.5 FROM: ORAL ANTICOAGULANTS. MECHANISM OF ACTION, CLINICAL EFFECTIVENESS, AND OPTIMAL THERAPEUTIC RANGE. CHEST 1995;108:231S-246S.Performed By: #### [id number] #### [facility] ([place]) [address] [facility] [place], [place] [address]ODJGVMVJHDN TIME (PT) IN PPP BY COAGULATION ASSAY24.5 Seconds High12.3-14.8UnRegency Hospital CompanyComment on above:Performed By: #### [id number] #### [facility] ([facility]) [address] [place], [place] [address]br 83-72-[address]Uay patient is Moderately Stable - Low risk of patient condition declining or worsening The patient's goals for the shift include comfort The clinical goals for the shift include safetyNormalUniversity [facility]30The patient is Moderately Stable - Low risk of patient condition declining or worsening The patient's goals for the shift include The clinical goals for the shift include vssNormalUniversCity HospitalANTI-XA (HEPARIN LEVEL)on 91-80-7366YMPMVFI UNFRACTIONATED (U/ML) IN PPP BY CHROMOGENIC METHOD0.57 IU/mLNormal0.3-0.7[facility] Comment on above:Result Comment: Rivaroxaban and Apixaban will interfere with the anti Xa assay used to monitor UFH and LMWH.Performed By: #### [id number] ####[facility] ([facility])[address] [place], [place] [address]BDPHRVA UNFRACTIONATED (U/ML) IN PPP BY CHROMOGENIC METHOD0.43 IU/mLNormal0.3-0.7 [facility] HospitalComment on above:Order Comment: Check anti-Xa level every 6 hours while on heparin infusion, or per protocol.Result Comment: Rivaroxaban and Apixaban will interfere with the anti Xa assay used to monitor UFH and LMWH.Performed By: #### [id number] #### [facility] ([facility]) [address] [place], [place] [address]PNMOaw 60-14-9781JDRSQTUNY PARTIAL THROMBOPLASTIN TIME IN PPP BY COAGULATION ASSAY34.2 LdxaztyExmihl06.0-35.0UnReg[facility] Hospital Company Comment on above:Order Comment: Baseline aPTT before initiating heparin infusion.Result Comment: Clinical significance of the APTT is questionable in the presence of heparin.Performed By: #### [id number] #### [facility] ([facility]) [address] [place], [place] [address]L-NYKA NATRIURETIC PEPTIDEon 20-16-1020Hxfoiowhzzk peptide B (Bld) [Mass/Vol]1209 pg/mLHigh0-100UnRegency Hospital CompanyComment on above:Performed By: #### [id number] ####[facility] ([facility])[address] [place] [address]CFQrd 38-72-5790Gbitwmnppys distribution width (RBC) [Ratio] 13.3 %Vrjqsh85.5-15.0UnRegency Hospital CompanyComment on above: Performed By: #### [id number] #### [facility] ([facility]) [address] [place] [address]TOELBDPUBHA MEAN CORPUSCULAR HEMOGLOBIN CONCENTRATION (G/DL) BY TGQNENNLO14.7 g/nRUmlbcc09.0-35.0UnRegency Hospital CompanyComment on above:Performed By: #### [id number] #### [facility] ([facility]) [address] [place] [address]Xjdbqezmao (Bld) [Volume fraction]35.5 %Low39.0-50.0UnRegency Hospital CompanyComment on above:Performed By: #### [id number] #### [facility] ([facility]) [address] [place] [address]Ckxxbnokxa (Bld) [Mass/Vol]11.6 g/dLLow13.0-17.0UnRegency Hospital CompanyComment on above:Performed By: #### [id number] #### [facility] ([facility]) [address] [place] [address]GZO (RBC) [Entitic mass]31.0 szRpqpzy92.0-33.0UnRegency Hospital CompanyComment on above:Performed By: #### [id number] #### [facility] ([facility]) [address] [place] [address]JXQ (RBC) [Entitic vol]94.9 vDLnlxbf07.0-98.0UnRegency Hospital CompanyComment on above:Performed By: #### [id number] #### [facility] ([facility]) [address] [place] [address]PORKUFLBP (10*3/UL) IN BLOOD AUTOMATED GUPCZ787 10*3/uLNormal 150-400UnRegency Hospital CompanyComment on above:Performed By: #### [id number] #### [facility] ([facility]) [address] [address]IIR (Bld) [#/Vol]3.74 10*6/uLLow4.20-5.70UnRegency Hospital CompanyComment on above:Performed By: #### [id number] #### [facility] ([facility]) [address] [address]PHL (Bld) [#/Vol]9.65 10*3/uLNormal4.00-10.60UnRegency Hospital CompanyComment on above:Performed By: #### [id number] #### [facility] ([facility]) [address] [address]QXDXOLLLHTFYC METABOLIC PANELon 97-73-1204Oyjwjoj [Mass/Vol]3.8 g/dLNormal3.5-5.7UnRegency Hospital CompanyComment on above:Performed By: #### [id number] #### [facility] ([facility]) [address] [place] [address]EOR [Catalytic activity/Vol]69 U/EToszfp26-573WnlnimzichRegency Hospital CompanyComment on above:Performed By: #### [id number] #### [facility] ([facility]) [address] [address]BUO [Catalytic activity/Vol]16 U/LNormal7-52UnRegency Hospital CompanyComment on above:Performed By: #### [id number] #### [facility] ([facility]) [address] [place] [address]Cbuev gap [Moles/Vol]12 mmol/LNormal7-20UnRegency Hospital CompanyComment on above:Performed By: #### [id number] #### [facility] ([facility]) [address] [place] [address]QEI [Catalytic activity/Vol]21 U/XXrqbtc60-64NfledurrixRegency Hospital CompanyComment on above:Performed By: #### [id number] #### [facility] ([facility]) [address] [place] [address]Qhdkedyfx [Mass/Vol]1.1 mg/dLHigh0.3-1.0UnRegency Hospital CompanyComment on above:Performed By: #### [id number] #### [facility] ([facility]) [address] [place] [address]Guxnkjv [Mass/Vol]8.7 mg/dLNormal8.6-10.3UnRegency Hospital CompanyComment on above:Performed By: #### [id number] #### [facility] ([facility]) [address] [place] [address]Odfqjlij [Moles/Vol]106 mmol/ATxnozz17-905EpasxhjdunRegency Hospital CompanyComment on above:Performed By: #### [id number] #### [facility] ([facility]) [address] [place] [address]EZ4 [Moles/Vol]21 mmol/KKvjbms69-20EghuehxnlhRegency Hospital CompanyComment on above:Performed By: #### [id number] #### [facility] ([facility]) [address] [place] [address]Tojpliklxx [Mass/Vol]1.04 mg/dLNormal0.70-1.30UnRegency Hospital CompanyComment on above:Performed By: #### [id number] #### [facility] ([facility]) [address] [place] [address]MMRZLVXUBG FILTRATION RATE ML/MIN/1.73 SQ M.MJFIVWZFI21.1 mL/min/1.73m*2Normal>60.0UnRegency Hospital CompanyComment on above: Result Comment: [facility]???s estimated glomerular filtration rate (eGFR) will [...] potential consequences that do not disproportionately affect anyone group of individuals.Performed By: #### [id number] #### [facility] ([facility]) [address] [place], [place] [address]Hdauzzp [Mass/Vol]133 mg/pIYxmq26-321IiyvasueumRegency Hospital CompanyComment on above:Performed By: #### [id number] #### [facility] ([facility]) [address] [place], [place] [address]Ribtvcafn [Moles/Vol]3.4 mmol/LLow3.5-5.1UnRegency Hospital CompanyComment on above:Performed By: #### [id number] #### [facility] ([facility]) [address] [place], [place] [address]Cxjfgqr [Mass/Vol]6.0 g/dLNormal6.0-8.3UnRegency Hospital CompanyComment on above:Performed By: #### [id number] #### [facility] ([facility]) [address] [place], [place] [address]Xwdenf [Moles/Vol]136 mmol/AZawini755-395XuilhorqmmRegency Hospital CompanyComment on above:Performed By: #### [id number] #### [facility] ([facility]) [address] [place], [place] [address]Jdyz nitrogen [Mass/Vol]33 mg/dLHigh7-25UnRegency Hospital CompanyComment on above:Performed By: #### [id number] #### [facility] ([facility]) [address] [place], [place] [address]OPMY NITROGEN/CREATININE (MASS RATIO) IN SER/PLAS31.7Normal [facility] HospitalComment on above:Performed By: #### [id number] #### [facility] ([facility]) [address] [place], [place] [address]NRJXNCRta 27-73-6818BQSAPKE Attestation signed by Luna Kimble MD at 09/18/2025 9:38 PM By using the attestations below, the signing [...] detailed note below, admitted with non-ST elevation [place] Kimble MD, ScM, MSc Cardiac Aws Developer Email: [email or web address] Cardiology Consult Note Reason for Consult: NSTEMI [...] Patient diagnosed with NSTEMI and transferred to [facility] for further management. Initial labs: K3.4, Mg [...] ago. His smoking use included cigarettes. He started smoking about 58 years ago. He has never [...] per After Visit Summary. Follow up with [facility] for INR Prescriptions Prior to Admission[2] Last Recorded Vitals Patient Vitals for the past 24 hrs: BP Temp Temp src Pulse Resp SpO2 Height Weight 09/17/25 0720 133/77 36.1 ???C (97 ???F) Temporal 60 14 100 % -- -- 09/17/25 0500 -- -- -- -- -- -- -- 99.7 kg (219 lb 12.8 oz) 09/17/25 0400 120/73 36.9 ???C (98.4 ???F) Temporal 60 16 92 % -- -- 09/17/25 0246 -- -- -- -- -- -- 1.727 m (5' 8 ) 99.7 kg (219 lb 12.8 oz) 09/17/25 0240 -- -- -- -- -- -- 1.753 m (5' 9 ) -- 09/17/25 0230 119/78 36.9 ???C (98.4 ???F) Temporal 60 18 94 % -- -- Physical Examination: Physical Exam Cardiovascular: Rate and Rhythm: Normal rate and regular rhythm. Pulmonary: Effort: Pulmonary effort is normal. Skin: Capillary Refill: Capillary refill takes less than 2 seconds. Neurological: General: No focal deficit present. Mental Status: He is alert and oriented to person, place, and time. Relevant Lab Results Encounter Date: 09/17/25 ECG 12 lead (more content not included)...NormalUnRegency Hospital CompanyHIGH SENSITIVITY TROPONIN Ion 59-82-6532FM TROPONIN I (NG/L)3331 ng/LCritically high <20UnRegency Hospital CompanyComment on above:Performed By: #### [id number] ####[facility] ([facility])[address] [place], [place] [address]IC TROPONIN I (NG/L)3682 ng/LCritically high<20UnRegency Hospital Company Comment on above:Performed By: #### [id number] #### [facility] ([facility]) [address] [place], [place] [address]PY TROPONIN I (NG/L)4674 ng/LCritically high<20UnRegency Hospital CompanyComment on above:Performed By: #### [id number] #### [facility] (PRETT[facility]) [address] [address]UXda 40-97-5121GQ Attestation signed by Luna Kimble MD at 09/18/2025 9:38 PM By using the attestations below, the signing [...] detailed note below, admitted with non-ST elevation [place] Kimble MD, ScM, MSc Cardiac Aws Developer Email: [email or web address] Cardiology Consult Note Reason for Consult: NSTEMI HPI: Rolando Boyd is a 89 y.o. 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 Patient was transferred from OSH where he was evaluated with dyspnea and chest discomfort. Troponins were elevated greater than 10,000. Patient diagnosed with NSTEMI and transferred to [facility] for further management. Initial labs: K3.4, Mg [...] ago. His smoking use included cigarettes. He started smoking about 58 years ago. He has never [...] per After Visit Summary. Follow up with [facility] for INR Prescriptions Prior to Admission[2] Last Recorded Vitals Patient Vitals for the past 24 hrs: BP Temp Temp src Pulse Resp SpO2 Height Weight 09/17/25 0720 133/77 36.1 ???C (97 ???F) Temporal 60 14 100 % -- -- 09/17/25 0500 -- -- -- -- -- -- -- 99.7 kg (219 lb 12.8 oz) 09/17/25 0400 120/73 36.9 ???C (98.4 ???F) Temporal 60 16 92 % -- -- 09/17/25 0246 -- -- -- -- -- -- 1.727 m (5' 8 ) 99.7 kg (219 lb 12.8 oz) 09/17/25 0240 -- -- -- -- -- -- 1.753 m (5' 9 ) -- 09/17/25 0230 119/78 36.9 ???C (98.4 ???F) Temporal 60 18 94 % -- -- Physical Examination: Physical Exam Cardiovascular: Rate and Rhythm: Normal rate and regular rhythm. Pulmonary: Effort: Pulmonary effort is normal. Skin: Capillary Refill: Capillary refill takes less than 2 seconds. Neurological: General: No focal deficit present. Mental Status: He is alert and oriented to person, place, and time. Relevant Lab Results Encounter Date: 09/17/25 ECG 12 lead (more content not included)...NormalUnRegency Hospital CompanyLACTIC ACID, PLASMAon 50-54-9617BBUEEBX (MMOL/L) IN SER/PLAS1.3 mmol/LNormal0.5-2.2 [facility] HospitalComment on above:Performed By: #### [id number] #### [facility] ([facility]) [address] [place] [address]TDYOMGNRVwb 01-03-78[address]Cedsvzigd [Mass/Vol]1.7 mg/dLLow1.9-2.7 [facility] HospitalComment on above:Performed By: #### [id number] #### [facility] ([place]) [address] [place] [address]UQXRRPG-HKYaj 99-78-2564HOA IN PPP BY COAGULATION ASSAY2.19High 0.90-1.10UnRegency Hospital CompanyComment on above:Result Comment: [facility] RECOMMENDED INR FOR WARFARIN THERAPY CONDITION INR PROPHYLAXIS OF VENOUS THROMBOSIS 2-3 (HIGH-RISK SURGERY) TREATMENT OF VENOUS THROMBOSIS 2-3 TREATMENT OF PULMONARY EMBOLISM 2-3 PREVENTION OF SYSTEMIC EMBOLISM: 2-3 ACUTE MYOCARDIAL INFARCTION TISSUE HEART VALVES VALVULAR HEART DISEASE ATRIAL FIBRILLATION RECURRENT SYSTEMIC EMBOLISM MECHANICAL HEART VALVE 2.5-3.5 FROM: ORAL ANTICOAGULANTS. MECHANISM OF ACTION, CLINICAL EFFECTIVENESS, AND OPTIMAL THERAPEUTIC RANGE. CHEST 1995;108:231S-246S.Performed By: #### [id number] ####[facility] ([place])[address] [place] [address]MODEEUHNTZB TIME (PT) IN PPP BY COAGULATION ASSAY24.6 BgnzirwQnkr43.3-14.8UnRegency Hospital CompanyComment on above:Performed By: #### [id number] ####[facility] (BEAKER)[address] [place] [id number] Onlyon [id number] Only [id number] Alvin Boyd 1935 M Date Provider Department Center 09/01/2025 241-VOLODYMYR YUAN [facility] Family History Family Status - Relation Status Age at Mother Father DeceasedNoalUniOhioHealth Grady Memorial HospitalOrders Onlyon 08-01-2025 Orders [id number] Alvin Boyd 1935 M Date Provider Department Center 08/01/2025 241-VOLODYMYR YUAN [facility] Family History Family Status - Relation Status Age at Mother Father DeceasedNormalUniOhioHealth Grady Memorial HospitalOrders Onlyon 07-19-2025 Orders [id number] Alvin Boyd 1935 M Date Provider Department Center 07/19/2025 241-KWABENAVOLODYMYR JARA [facility] Family History Family Status - Relation Status Age at Mother Father DeceasedNormalUniOhioHealth Grady Memorial Hospital36on [id number] Campbell MD [facility] [place] Please tell him that the echocardiogram showed stable findings. Continue same management and follow-up as planned. Spoke to patient to advise patient of Echo results per Dr. Dutton. Patient verbalized understanding.[facility] CenterOrders Onlyon [id number] [id number] Alvin Boyd 1935 M Date Provider Department Center 07/01/2025 BLAINE RIVERA [facility] Family History Family Status - Relation Status Age at Mother Father DeceasedNoBucyrus Community HospitalOffice Visiton [id number]-up [id number] Alvin Boyd 1935 M Date Provider Department Center 06/19/2025 PARISA MORALES [facility] Family History Family Status - Relation Status Age at Mother Father Level of Service:[address]41 [place] OFFICE/OUTPATIENT ESTABLISHED LOW [facility] [facility] HospitalOrders Onlyon [id number] [id number] Alvin Boyd 1935 M Date Provider Department Center 04/30/2025 BLAINE RIVERA HVC CARD TX HeartVAS No family history on fileNormalUniversity of El Paso Children'S HospitalOrders Onlyon [id number] [id number] Alvin Boyd 1935 M Date [facility] Department [place] 03/30/2025 BLAINE RIVERA HVC CARD TX HeartVAS No family history on fileNormalUniversity of El Paso Children'S HospitalAerobic Cultureon [id number] CultureORGANISM: Klebsiella aerogenes (O:KLEAER) Quantity of Growth Light [...] <4 Tigecycline S <2 Tobramycin S <2 Trimethoprim/Sulfamethoxazole S <0.5 S = SUSCEPTIBLE I = [...] RESISTANT TO ALL B-LACTAM DRUGS. PERFORMED BY: [facility] [address] [place] [address] PATHOLOGIST JEWELRY SALES COORDINATOR TO VALDOVINOS M.D.[facility] Room Physician GroupComment on above: Performed By: #### AERC, GS #### [facility] [address] [id number] USAGram Stainon [id number] observation Gram stain Nom (Unsp spec)Gram Stain Result 3+ White Blood Cells 2+ Gram Positive Cocci in Pairs 1+ Gram Positive Cocci 1+ Yeast Like Elements 1+ Epithelial Cells PERFORMED BY: [place] [address] PATHOLOGIST JEWELRY SALES COORDINATOR TO VALDOVINOS M.D.NormalThe [facility] Health Johnston Clayton Physician GroupComment on above: Performed By: #### AERC, GS #### [facility] [address] [place] [address] USAGram stain microscopyOrdered By: Jose Amado on 11-30-2024 Microscopic observation Gram stain Nom (Unsp spec)Gram stain microscopyCleveland Clinic Mercy HospitalCBC AUTO DIFFon [id number] #0.1 103/ulNormal0.0-0.1 [facility] HospitalComment on above:Performed By: #### CBC #### [facility] [address] [address] [address] Dana AnguloBasophils/100 WBC (Bld)0.8 %Normal0.2-2.0[facility] Comment on above:Performed By: #### CBC #### [facility] [address] [address] [address] Dana Chopra #0.1 103/ulNormal0.0-0.7ThCity HospitalComment on above: Performed By: #### CBC #### [facility] [address] [address] [address] Dana Alexanderosinophils/100 WBC (Bld)0.9 %Normal0.9-7.0[facility] Comment on above:Performed By: #### CBC #### [facility] [address] [address] [address] Dana Alexanderrythrocyte distribution width (RBC) [Ratio]13.2 %Zpcbyo26.0-15.0 [facility] HospitalComment on above:Performed By: #### CBC #### [facility] [address] [place] [address] Dr. Dana AnguloHematocrit (Bld) [Volume fraction]37.1 %Critically low42.0-54.0 The [facility] HospitalComment on above:Performed By: #### CBC #### [facility] [address] [place] [address] Dr. Dana AnguloHemoglobin (Bld) [Mass/Vol]12.1 g/dLCritically low14.0-18.0The [facility] HospitalComment on above:Performed By: #### CBC #### [facility] [address] [place] [address] Dr. Dana Hemphill #0.03 10e3/ulNormal0.00-0.03[facility] on above:Performed By: #### CBC #### [facility] [address] [place] [address] Dr. Dana Hemphill %0.4 %Normal0.0-0.5The [facility] HospitalComment on above: Performed By: #### CBC #### [facility] [address] [place] [address] Dr. Dana Best #1.4 103/ulNormal1.2-3.8The [facility] on above:Performed By: #### CBC #### [facility] [address] [place] [address] Dr. Dana Escobedomphocytes/100 WBC (Bld)19.0 %Critically low20.5-60.0[facility] HospitalCommymichigan medical center on above:Performed By: #### CBC #### [facility] [address] [place] [address] Dr. Dana WigginsUAL DIFF REQNONormalThe [facility] HospitalComment on above: Performed By: #### CBC #### [facility] [address] [place] [address] Dr. Dana Larson (RBC) [Entitic mass]30.6 brHaflxu21.9-34.0The [facility] HospitalComment on above:Performed By: #### CBC #### [facility] [address] [address] [address] Dana WoodHC (RBC) [Mass/Vol]32.6 g/wHMihryu46.9-35.2The [facility] HospitalComment on above:Performed By: #### CBC #### [facility] [address] [place] [address] Dr. Dana WoodV (RBC) [Entitic vol]93.7 kHDkrems65.0-94.0The [facility] HospitalComment on above:Performed By: #### CBC #### [facility] [address] [place] [address] Dr. Dana Vera #0.5 103/ulNormal0.3-0.8The [facility] HospitalComment on above:Performed By: #### CBC #### [facility] [address] [place] [address] Dr. Dana Sandovalocytes/100 WBC (Bld)7.2 %Normal1.7-12.0[facility] Comment on above:Performed By: #### CBC #### [facility] [address] [place] [address] Dr. Dana Mcclure #5.4 103/ulNormal1.4-6.5The [facility] HospitalComment on above:Performed By: #### CBC #### [facility] [address] [place] [address] Dr. Dana Salgueroutrophils/100 WBC (Bld)71.7 %Vtexag27.0-75.0The [facility] HospitalComment on above:Performed By: #### CBC #### [facility] [address] [place] [address] Dr. Dana Barrlet mean volume (Bld) [Entitic vol]9.6 fLNormal9.5-13.5The [facility] HospitalComment on above:Performed By: #### CBC #### [facility] [address] [place] [address] Dr. Dana AnguloPLT165 103/mpNcusps375-366Ivc [facility] on above: Performed By: #### CBC #### [facility] [address] [address] [address] Dana AnguloRBC3.96 106/ulCritically low4.70-6.10The [facility] HospitalCommymichigan medical center on above:Performed By: #### CBC #### [facility] [address] [address] [address] Dana AnguloWBC7.5 103/ulNormal4.0-11.0[facility] on above: Performed By: #### CBC #### [facility] [address] [place] [address] Dr. Dana Mccrary URINE PROFILEon 80-26-8934Bleznjihh Ql (U)NegativeNormal NEGATIVEPromedica Memorial HospitalCommymichigan medical center on above:Performed By: #### YOVANI UMICRO #### [facility] [address] [place] [address] Dr. Dana AnguloClarity (U)CLEARNormalCLEARMary [facility] Hospital on above: Performed By: #### YOVANI UMICRO #### [facility] [address] [place] [address] Dr. Dana Winters (U)LT. YELLOWNormalYELLOWMercy Health St. Elizabeth Youngstown Hospitalment on above:Performed By: #### YOVANI UMICRO #### [facility] [address] [place] [address] Dr. Dana White micrscopic examination will be performed if indicated. NormalThe [facility] HospitalCommymichigan medical center on above:Performed By: #### ERUR UMICRO #### [facility] [address] [place] [address] Dr. Dana AnguloGlucose Ql (U)NegativeNormalNEGATIVEMary Rutan Hospital on above:Performed By: #### ERUR, UMICRO #### [facility] [address] [place] [address] Dr. Dana AnguloHemoglobin Ql (U)NegativeNormalNEGATIVEThe [facility] Comment on above:Performed By: #### YOVANI UMICRO #### [facility] [address] [place] [address] Dr. Dana Vega Ql (U)NegativeNormalNEGATIVEThe [facility] HospitalComment on above:Performed By: #### YOVANI UMICRO #### [facility] [address] [place] [address] Dr. Dana AnguloLEUKOCYTESTRACEAbnormalNEGATIVEThe [facility] HospitalComment on above:Performed By: #### YOVANI UMICRO #### [facility] [address] [place] [address] Dr. Dana Cuetotrjudith Ql (U)NegativeNormalNEGATIVEThe [facility] HospitalComment on above:Performed By: #### YOVANI UMICRO #### [facility] [address] [place] [address] Dr. Dana AngulopH (U)6.0 [pH]Normal5-9The [facility] HospitalComment on above: Performed By: #### YOVANI UMICRO #### [facility] [address] [place] [address] Dr. Dana AnguloSPEC GRAVITY1.795Lrihaz1.005-<=1.025The [facility] HospitalComment on above:Performed By: #### YOVANI UMICRO #### [facility] [address] [place] [address] Dr. Dana Raygoza PROTEINNegativeNormalNEGATIVE/ TRACEThe [facility] Comment on above:Performed By: #### YOVANI UMICRO #### [facility] [address] [place] [address] Dr. Dana AnguloUR MICRO INDINDICATEDNormalThe [facility] HospitalComment on above: Performed By: #### YOVANI UMICRO #### [facility] [address] [place] [address] Dr. Dana Yorkbilinogen Qn (U)0.2 {Delia'U}/dLNormal0.2 - 1.0The [facility] HospitalComment on above:Performed By: #### ARMANDORHUMBERTO #### [facility] [address] [place] [address] Dr. Dana AnguloLACTATE/LACTIC ACIDon 93-52-9852Jfoejrp [Moles/Vol]1.1 mmol/L Normal0.4-1.9The [facility] on above:Performed By: #### LACT #### [facility] [address] [place] [address] Dr. Dana AnguloLIPASEon 20-07-6954Orgxmo [Catalytic activity/Vol]68.0 U/L Critically low73.0-393.0The [facility] on above:Performed By: #### CBC #### [facility] [address] [place] [address] Dr. Dana AnguloOCC BLD IMMUNO SCREENon 71-48-5100VWEENL BLOODNegativeNormal NEGATIVEThe [facility] on above:Performed By: #### HSTROPN #### [facility] [address] [place] [address] Dr. Dana AnguloPROF 14(COMP METB)on 94-81-6116Zeoftid [Mass/Vol]3.8 g/dLNormal 3.4-5.0The [facility] on above:Performed By: #### CBC #### [facility] [address] [place] [address] Dr. Dana AnguloAlbumin/Globulin [Mass ratio]1.3 {ratio}NormalThe [facility] on above:Performed By: #### CBC #### [facility] [address] [place] [address] Dr. Dana LopezP [Catalytic activity/Vol]70 U/UYkcawu61-850Tro [facility] on above:Performed By: #### CBC #### [facility] [address] [place] [address] Dr. Dana LopezT [Catalytic activity/Vol]22 U/LFamuiq79-27Qia [facility] on above:Performed By: #### CBC #### [facility] [address] [address] [address] Dana Gautam gap [Moles/Vol]13.5 mmol/LNormalThe [facility] Comment on above:Performed By: #### CBC #### [facility] [address] [address] [address] Dana AnguloAST [Catalytic activity/Vol]25 U/NCndhti09-38Ora [facility] HospitalComment on above:Performed By: #### CBC #### [facility] [address] [address] [address] Dana AnguloBilirubin [Mass/Vol]1.0 mg/dLNormal0.2-1.0[facility] Comment on above:Performed By: #### CBC #### [facility] [address] [address] [address] Dana AnguloCalcium [Mass/Vol]9.7 mg/dLNormal8.5-10.1[facility] Comment on above:Performed By: #### CBC #### [facility] [address] [place] [address] Dr. Dana AnguloChloride [Moles/Vol]103 mmol/AXuadoz82-270Gzk [facility] Comment on above:Performed By: #### CBC #### [facility] [address] [place] [address] Dr. Dana AnguloCO2 [Moles/Vol]25.1 mmol/HXfdfok84.0-32.0[facility] Comment on above:Performed By: #### CBC #### [facility] [address] [address] [address] Dana AnguloCreatinine [Mass/Vol]1.07 mg/dLNormal0.70-1.30The [facility] HospitalComment on above:Performed By: #### CBC #### [facility] [address] [place] [address] Dr. Dana AlexanderGFR-AF MALAGASY>60Normal>=60The [facility] HospitalComment on above:Performed By: #### CBC #### [facility] [address] [place] [address] Dr. Dana AlexanderGFR-NON AF MALAGASY>60Normal>=60The [facility] HospitalComment on above:Performed By: #### CBC #### [facility] [address] [place] [address] Dr. Dana AnguolGlobulin (S) [Mass/Vol]3.0 g/dLNormHenry County HospitalComment on above:Performed By: #### CBC #### [facility] [address] [place] [address] Dr. Dana AnguloGlucose [Mass/Vol]115 mg/dLCritically ugaw98-540Emm [facility] HospitalComment on above:Performed By: #### CBC #### [facility] [address] [place] [address] Dr. Dana AnguloPotassium [Moles/Vol]3.6 mmol/LNormal3.5-5.1[facility] Comment on above:Performed By: #### CBC #### [facility] [address] [place] [address] Dr. Dana AnguloProtein [Mass/Vol]6.8 g/dLNormal6.4-8.2[facility] Comment on above:Performed By: #### CBC #### [facility] [address] [place] [address] Dr. Dana AnguloSodium [Moles/Vol]138 mmol/VChkfji392-740Viu [facility] Comment on above:Performed By: #### CBC #### [facility] [address] [place] [address] Dr. Dana AnguloUrea nitrogen [Mass/Vol]39.0 mg/dLCritically high7.0-18.0The [facility] HospitalComment on above:Performed By: #### CBC #### [facility] [address] [place] [address] Dr. Dana Mar nitrogen/Creatinine [Mass ratio]36.4 mg/mgNoalThCity HospitalComment on above:Performed By: #### CBC #### [facility] [address] [place] [address] Dr. Dana AnguloPROTIMEon [id number] Coag (PPP) [Relative time]2.15 {INR} NormalThe [facility] on above:Performed By: #### PT, PTT #### [facility] [address] [place] [address] Dr. Dana Joseph [facility] HospitalCommymichigan medical center on above:Result Comment: DESIRED INR: 2.0 - 3.0 CONDITIONS NOT LISTED BELOW 2.5 - 3.5 FOR PROSTHETIC HEART VALVE REPLACEMENT 2.5 - 3.5 RECURRENT THROMBOSIS Performed By: #### PT, PTT #### [facility] [address] [place] [address] Dr. Dana Bassett Coag (PPP) [Time]21.8 sCritically high9.0-11.6The [facility] on above:Performed By: #### PT, PTT #### [facility] [address] [place] [address] Dr. Dana Cuellar 02-92-1617jYLA Coag (Bld) [Time]35.3 nGkmiab90.3-36.2[facility] on above:Performed By: #### PT, PTT #### [facility] [address] [place] [address] Dr. Dana Plasencia, HIGH SENSITIVITYon 72-80-3666UKKYAE81.2 pg/mLNormal 4.0-76.1[facility] on above:Result Comment: CUT-OFF POINTS HAVE BEEN ESTABLISHED BASED ON THE FOURTH UNIVERSAL DEFINITIONS OF MYOCARDIAL INFARCTION. THE UPPER REFERENCE LIMIT (URL) OF TROPONIN, DEFINED THE 99TH PERCENTILE OF cTnI DISTRIBUTION IN A REFERENCE POPULATION, HAS BEEN CONFIRMED THE DECISION THRESHOLD FOR [place] DIAGNOSIS.Performed By: #### HSTROPN #### [facility] [address] [place] [address] Dr. Dana AnguloHSTROP39.8 pg/mLNormal4.0-76.1[facility] on above:Result Comment: CUT-OFF POINTS HAVE BEEN ESTABLISHED BASED ON THE FOURTH UNIVERSAL DEFINITIONS OF MYOCARDIAL INFARCTION. THE UPPER REFERENCE LIMIT (URL) OF TROPONIN, DEFINED THE 99TH PERCENTILE OF cTnI DISTRIBUTION IN A REFERENCE POPULATION, HAS BEEN CONFIRMED THE DECISION THRESHOLD FOR [place] DIAGNOSIS.Performed By: #### HSTROPN #### [facility] [address] [address] [address] Dana WILLINGHAM ONLYon 27-91-1505CDBTOMFJWCOU SEENNormalNONE SEENMary [facility] on above:Performed By: #### YOVANI UMICRO #### [facility] [address] [place] [address] Dr. Dana Lisa identified Cx Nom (U)NOT INDICATEDNoProMedica Fostoria Community HospitalCommymichigan medical center on above:Performed By: #### YOVANI UMICRO #### [facility] [address] [place] [address] Dr. Dana Lopez SEENNormalNONE SEENMary [facility] on above:Performed By: #### YOVANI UMICRO #### [facility] [address] [place] [address] Dr. Dana Casperystals LM Nom (Urine sed)NONE SEENNormalNONE SEENPromedica Memorial HospitalCommymichigan medical center on above:Performed By: #### YOVANI UMICRO #### [facility] [address] [place] [address] Dr. Dana Mcgowanthelial cells LM Ql (Urine sed)FEWAbnormalNONE SEEN /RAREPromedica Memorial HospitalCommymichigan medical center on above:Performed By: #### YOVANI UMICRO #### [facility] [address] [place] [address] Dr. Dana BhaktaUSNONE SEENNormalNONE SEENPromedica Memorial HospitalCommymichigan medical center on above:Performed By: #### YOVANI, UMICRO #### [facility] [address] [place] [address] Dr. Dana Black SEENAbnormal0-2[facility] on above: Performed By: #### YOVANI, UMICRO #### [facility] [address] [place] [address] Dr. Dana HearnBC2-5AbnormalNONE SEENThe [facility] HospitalComment on above: Performed By: #### HUMBERTO PINA #### [facility] [id number] Dana Darling SINGLE QUAD RT UPPERon [id number] SINGLE QUAD RT UPPER Ultrasound abdomen right [...] Electronically authenticated by: DOMINIQUE JAUREGUI Date: 2022-12-18 13:05[facility]itt[facility] Medical CenterBNPon 13-95-4814Bkghbfujytu peptide B (Bld) [Mass/Vol]2364.0 pg/mLCritically high<=1,800.0The [facility] HospitalComment on above:Performed By: #### HSTROPN #### [facility] [id number] Dana Saunders 55-26-6289Kdso nitrogen [Mass/Vol]18.0 mg/dLNormal7.0-18.0 The [facility] HospitalComment on above:Performed By: #### HSTROPN #### [facility] [id number] Dana Heart AUTO DIFFon 35-09-8963FRNA #0.0 103/ulNormal0.0-0.1The [facility] HospitalComment on above:Performed By: #### CBC #### [facility] [address] [place] [address] Dr. Dana AnguloBasophils/100 WBC (Bld)0.6 %Normal0.2-2.0[facility] Comment on above:Performed By: #### CBC #### [facility] [address] [address] [address] Dana Chopra #0.1 103/ulNormal0.0-0.7The [facility] HospitalComment on above: Performed By: #### CBC #### [facility] [address] [place] [address] Dr. Dana Alexanderosinophils/100 WBC (Bld)1.3 %Normal0.9-7.0[facility] Comment on above:Performed By: #### CBC #### [facility] [address] [place] [address] Dr. Dana Alexanderrythrocyte distribution width (RBC) [Ratio]13.9 %Rirtxx83.0-15.0 The [facility] HospitalComment on above:Performed By: #### CBC #### [facility] [address] [place] [address] Dr. Dana AnguloHematocrit (Bld) [Volume fraction]36.2 %Critically low42.0-54.0 The [facility] HospitalComment on above:Performed By: #### CBC #### [facility] [address] [place] [address] Dr. Dana AnguloHemoglobin (Bld) [Mass/Vol]11.4 g/dLCritically low14.0-18.0The [facility] HospitalComment on above:Performed By: #### CBC #### [facility] [address] [place] [address] Dr. Dana Hemphill #0.02 10e3/ulNormal0.00-0.03The [facility] HospitalComment on above:Performed By: #### CBC #### [facility] [address] [address] [address] Dana Hemphill %0.3 %Normal0.0-0.5The [facility] on above: Performed By: #### CBC #### [facility] [address] [address] [address] Dana Best #1.4 103/ulNormal1.2-3.8The [facility] HospitalComment on above:Performed By: #### CBC #### [facility] [address] [address] [address] Dana Holcombhocytes/100 WBC (Bld)19.8 %Critically low20.5-60.0The [facility] on above:Performed By: #### CBC #### [facility] [address] [place] [address] Dr. Dana WigginsUAL DIFF REQNONormalThe [facility] HospitalComment on above: Performed By: #### CBC #### [facility] [address] [place] [address] Dr. Dana Wood (RBC) [Entitic mass]30.9 oeLuckcf11.9-34.0The [facility] on above:Performed By: #### CBC #### [facility] [address] [place] [address] Dr. Dana Wood (RBC) [Mass/Vol]31.5 g/eBXougfs59.9-35.2The [facility] on above:Performed By: #### CBC #### [facility] [address] [place] [address] Dr. Dana Wood (RBC) [Entitic vol]98.1 fLCritically high80.0-94.0The [facility] on above:Performed By: #### CBC #### [facility] [address] [place] [address] Dr. Dana Vera #0.5 103/ulNormal0.3-0.8The [facility] on above:Performed By: #### CBC #### [facility] [address] [address] [address] Dana Sandovalocytes/100 WBC (Bld)6.9 %Normal1.7-12.0[facility] Comment on above:Performed By: #### CBC #### [facility] [address] [place] [address] Dr. Dana SalgueroUT #5.1 103/ulNormal1.4-6.5The [facility] HospitalComment on above:Performed By: #### CBC #### [facility] [address] [place] [address] Dr. Dana Salgueroutrophils/100 WBC (Bld)71.1 %Xqnrec16.0-75.0The [facility] HospitalComment on above:Performed By: #### CBC #### [facility] [address] [place] [address] Dr. Dana AnguloPlatelet mean volume (Bld) [Entitic vol]9.4 fLCritically low 9.5-13.5The [facility] HospitalComment on above:Performed By: #### CBC #### [facility] [address] [place] [address] Dr. Dana AnguloPLT164 103/feNympup615-301Eje [facility] HospitalComment on above: Performed By: #### CBC #### [facility] [address] [place] [address] Dr. Dana AnguloRBC3.69 106/ulCritically low4.70-6.10The [facility] HospitalComment on above:Performed By: #### CBC #### [facility] [address] [place] [address] Dr. Dana AnguloWBC7.1 103/ulNormal4.0-11.0The [facility] HospitalComment on above: Performed By: #### CBC #### [facility] [address] [place] [address] Dr. Dana AnguloCREATININEon 36-04-4205Xxldpejnzh [Mass/Vol]1.10 mg/dLNormal 0.70-1.30The [facility] HospitalComment on above:Performed By: #### HSTROPN #### [facility] [address] [place] [address] Dr. Dana AlexanderGFR-AF MALAGASY>60Normal>=60The [facility] HospitalComment on above:Result Comment: Previously reported as: >77 On 11/11/2022 10:45 By [email or web address] Previously reported as: (blank) On 11/11/2022 10:44 By [email or web address] By: #### HSTROPN #### [facility] [address] [place] [address] Dr. Dana AlexanderGFR-NON AF MALAGASY>60Normal>=60The [facility] HospitalComment on above:Result Comment: Previously reported as: >64 On 11/11/2022 10:45 By [email or web address] Previously reported as: (blank) On 11/11/2022 10:44 By [email or web address] By: #### HSTROPN #### [facility] [address] [place] [address] Dr. Dana AnguloCULTURE URINEon 17-56-9745ABMOYLN URINECulture Observations: NO GROWTH.NormalThe [facility] HospitalComment on above:Performed By: #### CBC #### [facility] [address] [place] [address] Dr. Dana AlexanderLECTROLYTESon 57-61-7047Chqsw gap [Moles/Vol]12.7 mmol/LNormal The [facility] HospitalComment on above:Performed By: #### HSTROPN #### [facility] [address] [place] [address] Dr. Dana AnguloChloride [Moles/Vol]103 mmol/AFraqay00-377XydPromedica Memorial Hospital Comment on above:Performed By: #### HSTROPN #### [facility] [address] [place] [address] Dr. Dana AnguloCO2 [Moles/Vol]29.0 mmol/SZueybh78.0-32.0[facility] Comment on above:Performed By: #### HSTROPN #### [facility] [address] [place] [address] Dr. Dana AnguloPotassium [Moles/Vol]4.7 mmol/LNormal3.5-5.1[facility] Comment on above:Performed By: #### HSTROPN #### [facility] [address] [address] [address] Dana AnguloSodium [Moles/Vol]140 mmol/BSfybjq929-341Yry [facility] Comment on above:Performed By: #### HSTROPN #### [facility] [address] [address] [address] Dana AnguloGLYCOHEMOGLOBIN A1Con 04-54-7281OFT RECOMMENDATIONSEE BELOWSumma Health Akron CampusComment on above:Result Comment: ADA RECOMMENDED LIMIT 4.0 - 6.0 ADA THERAPEUTIC TARGET < 7.0 ACTION SUGGESTED > 7.0Performed By: #### HSTROPN #### [facility] [address] [address] [address] Dana AnguloGlucose [Mass/Vol]120 mg/dLNoProMedica Fostoria Community HospitalComment on above:Performed By: #### HSTROPN #### [facility] [address] [address] [address] Dana AnguloHbA1c (Bld) [Mass fraction]5.8 %Normal4.5-6.2Prom[facility] Memorial HospitalComment on above:Performed By: #### HSTROPN #### [facility] [address] [address] [address] Dana AnguloLIPID PROFILEon [id number]-HDL RATIO NORMSEE [facility] HospitalComment on above:Result Comment: 3.3 - 4.4 LOW RISK 4.4 - 7.1 AVERAGE RISK 7.1 - 11.0 MODERATE RISK >11.0 HIGH RISKPerformed By: #### HSTROPN #### [facility] [address] [address] [address] Dana AnguloCholesterol [Mass/Vol]91 mg/dLNormal<=200[facility] Comment on above:Performed By: #### HSTROPN #### [facility] [address] [address] [address] Dana AnguloCholesterol in HDL [Mass/Vol]49 mg/zVXrmlix25-81Lho [facility] on above:Performed By: #### HSTROPN #### [facility] [address] [address] [address] Dana AnguloCholesterol in LDL [Mass/Vol]29.4 mg/dLSumma Health Wadsworth - Rittman Medical CenterComment on above:Performed By: #### HSTROPN #### [facility] [address] [place] [address] Dr. Dana AnguloCholesterfifi.total/Cholesterol in HDL [Mass ratio]1.9 {ratio} NormalThe [facility] HospitalComment on above:Performed By: #### HSTROPN #### [facility] [address] [place] [address] Dr. Dana McwilliamsL NORMAL> or = 60 mg/dl - LOW CARDIOVASCULAR RISK <40 mg/dl - HIGH CARDIOVASCULAR RISKSumma Health Wadsworth - Rittman Medical CenterComment on above:Performed By: #### HSTROPN #### [facility] [address] [place] [address] Dr. Dana Wilkes CALC NORMALSEE [facility] HospitalComment on above:Result Comment: <100 mg/dl OPTIMAL 100 - 129 mg/dl NEAR OR ABOVE OPTIMAL 130 - 159 mg/dl BORDERLINE HIGH 160 - 189 mg/dl HIGH >190 mg/dl VERY HIGH Performed By: #### HSTROPN #### [facility] [address] [place] [address] Dr. Dana AnguloTriglyceride [Mass/Vol]63 mg/dLNormal<=150[facility] Comment on above:Performed By: #### HSTROPN #### [facility] [address] [place] [address] Dr. Dana AnguloVLDL CALC12.6 mg/dLNoProMedica Fostoria Community HospitalComment on above: Performed By: #### HSTROPN #### [facility] [address] [address] [address] Dana Perez PROFILEon [id number] [Mass/Vol]3.7 g/dLNormal3.4-5.[address] [facility] on above:Performed By: #### HSTROPN #### [facility] [address] [address] [address] Dana AnguloAlbumin/Globulin [Mass ratio]1.2 {ratio}NormalThe [facility] Medical Centerment on above:Performed By: #### HSTROPN #### [facility] [address] [address] [address] Dana Montano [Catalytic activity/Vol]68 U/ZZfvmck27-577Voi [facility] on above:Performed By: #### HSTROPN #### [facility] [address] [place] [address] Dr. Dana Iqbal [Catalytic activity/Vol]20 U/EFbwkfm12-62Pwl [facility] HospitalComment on above:Performed By: #### HSTROPN #### [facility] [address] [place] [address] Dr. Dana Salazar [Catalytic activity/Vol]21 U/GMxcqya09-85Usj [facility] on above:Performed By: #### HSTROPN #### [facility] [address] [address] [address] Dana Martinez, CONJUGATED0.3 mg/dLCritically high0.0-0.2[facility] on above:Performed By: #### HSTROPN #### [facility] [address] [place] [address] Dr. Dana Camposirubin [Mass/Vol]0.9 mg/dLNormal0.2-1.0[facility] Comment on above:Performed By: #### HSTROPN #### [facility] [address] [place] [address] Dr. Dana AnguloGlobulin (S) [Mass/Vol]3.1 g/dLNormalThe [facility] HospitalComment on above:Performed By: #### HSTROPN #### [facility] [address] [place] [address] Dr. Dana AnguloProtein [Mass/Vol]6.8 g/dLNormal6.4-8.2[facility] Comment on above:Performed By: #### HSTROPN #### [facility] [address] [place] [address] Dr. Dana Machado 53-63-9067WUY4.426 uIU/mLNormal0.358-3.740The [facility] HospitalComment on above:Performed By: #### HSTROPN #### [facility] [address] [place] [address] Dr. Dana Raygoza (CLEAN/CATCH) MANAGER WEB APPLICATION/MICRO IF IND.on [id number] Ql (U) NegativeNormalNEGATIVEPromedica Memorial HospitalComment on above:Performed By: #### GIANCARLO BAICRO #### [facility] [address] [place] [address] Dr. Dana AnguloClarity (U)CLEARNormalCLEARThe [facility] HospitalComment on above: Performed By: #### GIANCARLO BAICRO #### [facility] [address] [place] [address] Dr. Dana Shipleylor (U)YELLOWNormalYELLOWThe [facility] HospitalComment on above: Performed By: #### MEJIA UMICRO #### [facility] [address] [place] [address] Dr. Dana AnguloGlucose Ql (U)NegativeNormalNEGATIVEPromedica Memorial HospitalComment on above:Performed By: #### MEJIA UMICRO #### [facility] [address] [place] [address] Dr. Dana AnguloHemoglobin Ql (U)NegativeNormalNEGOhio Valley Surgical Hospital Comment on above:Performed By: #### UALEON UMICRO #### [facility] [address] [place] [address] Dr. Dana AnguloKetones Ql (U)TRACEAbnormalNEGATIVEThe [facility] HospitalComment on above:Performed By: #### MEJIA UMICRO #### [facility] [address] [place] [address] Dr. Dana AnguloLEUKOCYTESSMALLAbnormalNEGATIVEThe [facility] HospitalComment on above:Performed By: #### MEIJA UMICRO #### [facility] [address] [place] [address] Dr. Dana Cuetotrite Ql (U)NegativeNormalNEGATIVEThe [facility] HospitalComment on above:Performed By: #### MEJIA UMICRO #### [facility] [address] [place] [address] Dr. Dana Mary (U)6.0 [pH]Normal5-9The [facility] HospitalCommymichigan medical center on above: Performed By: #### MEJIA UMICRO #### [facility] [address] [place] [address] Dr. Dana AnguloSPEC GRAVITY1.316Umxnta7.005-<=1.025The [facility] HospitalComment on above:Performed By: #### MEJIA UMICRO #### [facility] [address] [place] [address] Dr. Dana Raygoza PROTEINTRACENormalNEGATIVE/ TRACEThe [facility] HospitalComment on above:Performed By: #### MEJIA UMICRO #### [facility] [address] [place] [address] Dr. Dana Jean Baptiste MICRO INDINDICATEDNormalThe [facility] HospitalComment on above: Performed By: #### MEJIA UMICRO #### [facility] [address] [place] [address] Dr. Dana Eppsinogen Qn (U)1.0 {Delia'U}/dLNormal0.2 - 1.0The [facility] HospitalCommymichigan medical center on above:Performed By: #### MEJIA UMICRO #### [facility] [address] [place] [address] Dr. Dana Zarate MICROSCOPIC ONLYon [id number]J SEEN The [facility] HospitalCommymichigan medical center on above:Performed By: #### MEJIA UMICRO #### [facility] [address] [place] [address] Dr. Dana Lisa identified Cx Nom (U)INDICATEDNoalThe [facility] HospitalComment on above:Performed By: #### MEJIA UMICRO #### [facility] [address] [place] [address] Dr. Dana ZhouSEENAbnormalNONE SEENPromedica Memorial HospitalCommymichigan medical center on above: Performed By: #### MEJIA UMICRO #### [facility] [address] [place] [address] Dr. Dana Casperystals LM Nom (Urine sed)NONE SEENNormalNONE SEENMary [facility] Hospital on above:Performed By: #### MEJIA UMICRO #### [facility] [address] [place] [address] Dr. Cortez ChangEandrewthelial cells LM Ql (Urine sed)RARENormalNONE SEEN /RAREPromedica Memorial HospitalCommymichigan medical center on above:Performed By: #### MEJIA UMICRO #### [facility] [address] [place] [address] Dr. Dana TaborCOUSBERNIEE SEENNormohNONE SEENMary [facility] Hospital on above:Performed By: #### MEJIA UMICRO #### [facility] [address] [place] [address] Dr. Dana AnguloVokytTGL4-6Gpqrmxwt6-1Vsk [facility] HospitalCommymichigan medical center on above:Performed By: #### MEJIA UMICRO #### [facility] [address] [place] [address] Dr. Dana AnguloWBC2-5AbnormalNONE SEENMary [facility]an Hospital on above: Performed By: #### MEJIA UMICRO #### [facility] [address] [place] [address] Dr. Dana AnguloVITAMIN D 25 OHon [id number] D 25-OH30.2 ng/mLNDayton Children's HospitalComment on above:Performed By: #### CBC #### [facility] [address] [place], [place] [address] Dr. Dana Collins RANGESSEE BELOWSumma Health Wadsworth - Rittman Medical CenterComment on above: Result Comment: <20 ng/mL Vit D deficient 20 - <30 ng/mL Vit D insufficient 30 - 100 ng/mL Vit D sufficient >100 ng/mL Potential ToxicityPerformed By: #### CBC #### [facility] [address] [place], [place] [address] Dr. Dana AnguloCardiovascular Lab Reporton [id number] Lab Report [facility] Patient Name: [facility] Alvin Sanchez MR #: [id number] Department of Physician: Geetha Blankenship M.D. Division of Service Date: 06/24/2019 Cardiology Birthdate: 1935 Adult Cardiovascular Room #: [facility] [address] [address] Cardiovascular Laboratory Report FINAL IMPRESSION: 1. Normal right and left ventricular filling pressures. 2. Preserved cardiac output and cardiac index. 3. Mild pulmonary artery hypertension. INDICATIONS: The patient is an 83-year-old male, who has heart failure, status post DIRECTOR AMBULATORY. He has been experiencing shortness of breath [...] modified Seldinger technique and ultrasound guidance, a 5-Egyptian micropuncture was placed in right internal jugular vein. This was upsized to a regular 6-Egyptian pinnacle sheath and a 6-Egyptian Jackson was used for right heart catheterization. [...] TIME: 1.23 minutes. Electronically Signed by: Yue Antonio M.D. 06/28/2019 03:39 P Yue Antonio M.D. Date Dict: 06/24/2019/10:49 Rashard/Yue Antonio M.D. Date Trans: 06/25/2019 05:12 Rashard/deniz DN_JN:[id number] cc: Rio Lal D.O. [address] [place], [place] [address]Ign[facility] [address]FbneuuPqgSelect Medical Specialty Hospital - AkronNeurosurgery Office/Clinic Noteon [id number] Office/Clinic NoteChief Complaint BACK PAINHistory of Present Illness Very [...] MBBs)Review of Systems naPhysical Exam Vitals & MeasurementsBP: 128/78 HT: 177 cm WT: 107 kg [...] strength 2+ UE reflexes 2+ LE reflexes Mana nus absentAssessment/Plan Lumbar stenosis Neurogenic claudication Assessment: 1. back pain and bilateral leg pain and neurogenic claudication 2. Lumbar mri: significant stenosis L2-S1, most severe atL4-5 3. Multiple medical comorbidities including advanced age [...] stay after surgery given his age, etc. Hewants to think this over.Problem List/Past Medical History [...] replacement, pacemaker, right hip replacement, right knee replacement.Medicationsaspirin 81 mg oral tablet, 81 mg, 1 [...] of CSF space. There is marked constriction ofthe lateral recesses. There is severe bilateral neural foraminal narrowing, greater on the right. L5-S1: There is facet arthropathy and ligamentous hypertrophy. There is broad-based disc bulge. Thereis moderate central canal stenosis. There is moderate right and mild left neural foraminal narrowing.Electronically signed by Arsalan Leija MD 15:39 EDTNoOhioHealth Hardin Memorial HospitalCT Spine Lumbar w/ Contraston [id number] Spine Lumbar w/ ContrastCLINICAL HISTORY: Pain and radiculopathy.EXAMINATION:Contiguous axial images were obtained through the lumbar spine following the intrathecal administration of Omnipaque 180 as previously described. This was supplemented with reformatted coronal and sagittal images.FINDINGS:There is minimal retrolisthesis of L1 with respect to L2 and L2 with respect to L3. Vertebral body heights and alignment areotherwise maintained. There is diffuse osseous demineralization. There [...] colon. There is heavy calcification in the aorta.T11- T12: Is only partially imaged. There is facet arthropathy and dorsal impression on the thecal sac. There is constriction of the lateral recesses. The central canal remains patent.T12-L1: There is moderate facet arthropathy. There is mild broad-based disc bulge. There is mild bilateral neural foraminal narrowing.L1- L2: There is moderate facet arthropathy and mild ligamentous hypertrophy. There is broad-based disc bulge. There is constriction of the lateral recesses. There is mild left and moderate right neural foraminal narrowing.L2-L3: There is facet arthropathy and ligamentous hypertrophy. There is broad-based disc bulge with disc and spur effacing the thecal sac. There is constriction of the lateral recesses. Thereis severe left neural foraminal narrowing and moderate [...] There is disc and spur effacing the th ecal sac. There is severe central canal stenosis with near complete obliteration of CSF space. There is marked constriction of the lateral recesses. There is severe bilateral neural foraminal narrowing, greater on the right.L5-S1: There is facet arthropathy and ligamentous hypertrophy. There is broad-based disc bulge. There is moderate central canal stenosis. There is moderate right and mild leftneural foraminal narrowing.IMPRESSION:Degenerative changes greatest at L4-L5 with severe central canal stenosis and bilateral neural foraminal narrowing. Further degenerative changes are detailed above.Radiation Dose Estimate:CTDI(mGy):0.272066 / / / kVp:120.812876 / mAs:0.198617 / / / DLP(mGy-cm):5.135068Jwvd Part:CTDI(mGy):28.466409 / / / kVp:120.419370 / mAs:294.005654 / / / DLP(mGy-cm):632.984926Mdbw Part: Final Dictated by: Naldo Aguilar MD, MDicttiffanie DT/TM: 04.06.2018 11:34 amSigned by: Naldo Aguilar MD MSigned (Electronic Signature): 04.06.2018 3:49 pmTranscribed DT/TM: 04.06.2018 1:29 pm(If Report Is Signed, Electronically Signed in Other Vendor System)[facility] SystemInpatient Clinical Summaryon [id number] Clinical Summary[address] [address]Ouqaywmo SummaryPerson InformationName: Alvin Boyd Age: 82 Years : 1935Sex: Male PCP: Rio Lal DO Status: PCP: [id number]:White Ethnicity:Not or Language:EnglishMRN: [id number] Visit Id: Reason:stenosis, bilateral leg pain Speciality: Acuity:Enc Type: Outpatient in a Bed Med Service: Radiology-Diagnostic ImagingArrival:04/06/2018 08:16:35 Discharge: Dispo Type:Address:[address] [place] [id number]:Discharged To:Home Treatments:Devices/Equipment:Professional Skilled Services:Special Services and Community Resources:Mode of Discharge Transportation:Discharge OrdersAllergies No Known AllergiesFunctional Status:Sensory Deficits:History of Falls:Mobility Assistance Prior to Admission:ADLs:Gait:Ambulation Assist:Assistive Device:Special Orthopedic Devices:Current Level of Assistance for Self-Care/Mobility:Cognitive Status:Orientation:Orientation AssessmentLevel of Consciousness:Characteristics of Speech:Aspiration Risk:Affect/Behavior:Laboratory or Other Results This Visit (last charted value for your 04/06/2018 visit) No Laboratory or Other Results This VisitMeasurements:Height:Weight:Blood Pressure: Not Valued /BMI:Respirato ry:Respirations:Respiratory Symptoms:Cardiovascular:Heart Sounds:Heart Rhythm:Gastrointestinal:GI Symptoms:Bowel Sounds:Vital Signs:Temp Axillary:Temp Temporal Artery:Temp Oral:Temp Rectal:Apical Heart Rate:Peripheral Pulse Rate:Heart Rate:Respiratory Rate:DietDiet:Feeding Tolerance:Appetite:Lorenzo Assessment:Procedures No Procedures DocumentedImmunizations No Immunizations Documented This VisitMedications That Have Not ChangedOther Medicationsaspirin (aspirin 81 mg oral tablet) 1 Tabs Oral (given by mouth) every day.Last Dose: atorvastatin (atorvastatin 40 mg oral tablet) 1 Tabs Oral (given by mouth) every day.Last Dose: carvedilol (carvedilol 25 mg oral tablet) 1 Tabs Oral (given by mouth) 2 times a day.Last Dose: DULoxetine (DULoxetine 30 mg oral delayed release capsule) 1 Capsules Oral (given by mouth) every day.Last Dose: hydrALAZINE (hydrALAZINE 50 mg oral tablet) 1 Tabs Oral (given by mouth) 2 times a day.Last Dose: hydroCHLOROthiazide (hydroCHLOROthiazide 12.5 mg oral capsule) 1 Capsules Oral (given by mouth) every day.Last Dose: losartan (losartan 100 mg oral tablet) 1 Tabs Oral (given by mouth) every day.Last Dose: multivitamin (Metanx) 12.5 Milligram Oral (given by mouth) 2 times a day.Last Dose: warfarin (warfarin 4mg oral tablet) 2tabs on Thursday 1 rest of week.Last Dose: Care Team Members:Attending Physician: Lexi Morley CNP Physician:Referring Physician:Follow up:Type Location Start Finish StateXR Lumbar Spine BV Rad Main 04/06/2018 09:40:00 04/06/2018 10:00:00 ConfirmedCT Lumbar Spine BV CT Scan 04/06/2018 11:50:00 04/06/2018 12:30:00 ConfirmedSP Established Patient Visit [facility] 04/14/2018 14:30:00 04/14/2018 15:00:00 ConfirmedNormalBlanchard Niobrara Valley HospitalPTon [id number] Coag RelTime (PPP)1.1 {INR}Normal<=3.5BlanFort Hamilton HospitalComment on above:Result Comment: INR has no normal range. INR Therapeutic range is:2.0-3.0 (AF, CVA, TIAs, DVT prophylaxis, acute DVT)2.5-3.5 ([facility] heart valves, recurrent thrombosis/emboli)Performed By: #### PTINR ####[address] [address]Xgjkvugrpsl time (PT) Coag time (PPP)11.3 sNormal9.1-11.9BMount St. [facility] Comment on above:Performed By: #### PTINR ####[address] [address]ICFtt [id number] yHbpcrj51.0-28.8 [facility] Bucyrus HospitalComment on above:Performed By: #### PTT ####[address] [address]Qrdtcsls Counton [id number] x10*3/yhZPxp229-610HddeytvujAvita Health System Bucyrus Hospital Comment on above:Performed By: #### PLTS ####[address] [address]MR Myelography Lumbosacral Spineon [id number] Myelography Lumbosacral SpineCLINICAL HISTORY: Radiculopathy.EXAMINATION:A fluoroscopically guided lumbar myelogram was performed.FLUOROSCOPY TIME:8 secondsTECHNIQUE AND FINDINGS:The procedure, risks and benefits were explained t o the patient and written consent was obtained. The patient was placed in the prone position on thefluoroscopy table. The lumbar spine was prepped and draped in usual sterile fashion. Maximum sterile barrier was utilized. Fluoroscopy was used to localize the intervertebral space at L3-L4. A timeout was completed. The skin was anesthetized with 2% lidocaine. Under fluoroscopic guidance, a 22-gauge spinal needle was inserted into the thecal sac. A small amount of contrast was injected and flowedfreely around the nerve roots. Approximately 13 cc of Omnipaque 180 was injected into the thecal sac. There was no myelographic block. The needle was removed and hemostasis was achieved. The patient was placed in the left lateral decubitus position and a lateral image of the lumbar spine was obtained. The patient was sent immediately to CT. Please see CT report for further diagnostic details.IMPRESSION:Successful and uneventful fluoroscopically guided lumbar myelogram. Final Dictated by: Naldo Aguilar MD DT/TM: 04/06/2018 11:15 amSigned by: Naldo Aguilar MD (Electronic Signature): 04/06/2018 11:16 am(If Report Is Signed, Electronically Signed in Other Vendor System)[facility] SystemXR Spine Lumbosacral 2 or 3 Viewson [id number] Spine Lumbosacral 2 or 3 ViewsCLINICAL HISTORY: Back pain.EXAMINATION:Flexion, extension and neutral lateral images of the lumbarspine were obtained.FINDINGS:The vertebral body heights are maintained. There is minimal retrolisthesis of T12 with respect to L1 and L1 with respect to L2. There is no significant change with flexion or extension. There is marked loss of intervertebral disc space height with endplate sclerosis andbone spurring throughout the lumbar spine. There is marked facet arthropathy, greater in the lower lumbar levels. There is markedly limited range of motion. No dynamic subluxation is identified. There is been total hip arthroplasty bilaterally. Heavy arterial calcifications are noted.IMPRESSION:Marked degenerative change and limited range of motion without acute findings. 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 15 Additional Vitals Body Mass Index Measured: 34.15 kg/m2 BP Position/Location: Sitting, Left arm Peripheral Pulse Rate: 64 bpm General: [Alert and oriented, well nourished, no acute distress]. Eye:[normal conjunctiva, no scleral icterus]. HENT: [normocephalic, atraumatic, oral mucosa pink and moist, dentition intact]. Neck: [Supple, no carotid bruits]. Pulmonary: [Clear to auscultation, non-labored respiration]. Cardiovascular: [Normal rate, regular rhythm, no murmur, no edema, strong pulseswith rapid capillary refill]. Abdomen: [soft, nontender] Skin: [Normal temperature and texture; no rashes; no digit clubbing or cyanosis]. Psychiatric: [Appropriate judgement and insight, appropriatemood and affect]. NEURO EXAM: Pupils are equal [...] L45 moderate canal stenosis 4. CHF, htn, cardiacstent x 5 5. pacemaker 6. warfarin 7. BMI 34 Plan: 1. CT myelogram lumbar 2. XR lumbar with flex ex3. follow up Dr. Leija upon completionAssessment/Plan 1. DDD (degenerative disc disease), lumbar Ordered: CT Spine Lumbar w/ Contrast XR Myelography Lumbosacral Spine XR Spine Lumbosacral 2 or 3 Views 2. Lumbar spinal stenosis 3. Lumbago 82 year old male here for initial evaluation of low back withbilateral leg pain. I have reviewed CT imaging, with all questions answered. I have recommended CT myelogram of the lumbar spine in combination with XRs of the lumbar spine with flexion and extensionviews. 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 Upon completion [...] Steroid Injection (Bilateral) (02/18/2017), Cataract extraction, heart stents-x5,left carpal tunnel surgery, left hip replacement, left knee replacement, pacemaker, right hip replacement, right knee replacement.Medications aspirin 81 mg oral tablet, 81 mg, 1 tabs, Oral, Daily atorvastatin 40 mg oral tablet, 40 mg, 1 tabs, Oral, Daily carvedilol 25 mg oral tablet, 25 mg, 1 tabs,Oral, BID DULoxetine 30 mg oral delayed release [...] Mother. Stroke: Mother.Diagnostic Results CT lumbar 02/23/18- DDDwith L23, L34 and L45 vacuum disc; L45 moderate canal stenosisElectronically signed by Lexi Morley CNP 03/29/18 12:41 EDTNormal [facility] HospitalPain Management Office/Clinic Noteon 03-16-2018 Pain Management Office/Clinic NoteChief Complaint bilaterial leg pain, bilaterial hip painHistory of Present Illness AM Behavior: Same Day Progresses Behavior: Same PM Behavior: Same PM Pain location and laterality: bilaterial hip pain, bilaterial leg pain PM Pain quality: Aching PM Pain Pattern: Constant PM Pain Rate at Rest: 3 PMPain Rate with Activity: 8 Bending: Aggravating Cold/Ice: No effect Heat: No effect PM Lifting: Aggravating Lying: Alleviating Performance of ADL's: Aggravating Sitting: Aggravating Stairs: Aggravating Standing: Aggravating Walking: Aggravating PM Sensory: numbness and tingling in right arm PM PainStatus: Unchanged Date Chiropractor: 11/2016 Date PT: 01/16 Date Injections: 11-09-17 Date Surgery: n/a Frequency PT: [id number] Effective PT: not much help Effective Injections: [...] today?s date.Physical Exam Vitals & Measurements RR: 16BP: 157/99 HT: 177 cm WT: 102.2 kg [...] 60 bpmAssessment/Plan Lumbar Spinal Stenosis with Neurogenic ClaudicationPhysicianComments The patient has an upcoming appointment with Dr. Leija for possible surgical considerations. Thank you for allowing me to participate in the patient?s care. I look forward to seeing them as a return patient on an as needed basis.Problem List/Past Medical History Ongoing Acid reflux Angina Carpal tunnel Congestive heart failure Home CPAP unit Hypertension Low back pain Sleep apnea SnoringHistorical No qualifying dataProcedure/Surgical History Sciatic Nerve Block [...] knee replacement.Medications aspirin 81 mg oral tablet, 81mg, 1 tabs, Oral, Daily atorvastatin 40 mg oral tablet, 40 mg, 1 tabs, Oral, Daily carvedilol 25 mgoral tablet, 25 mg, 1 tabs, Oral, BID DULoxetine 30 mg oral delayed release capsule, 30 mg, 1 caps,Oral, Daily hydrALAZINE 50 mg oral tablet, 50 mg, 1 tabs, Oral, BID losartan 100 mg oral tablet, 100 mg, 1 tabs, Oral, Daily Metanx, 12.5 mg, Oral, BID warfarin 4 mg oral tablet, See InstructionsAllergies No Known AllergiesSocial History Alcohol Never Employment/School Retired Substance Abuse Denies All Tobacco Former smokerDiagnostic Results No qualifying data available. No qualifying data availa ble. No qualifying data available. No qualifying data available.Electronically signed by Andrew DIAZKendra 03/16/18 13:37 EDTNoOhioHealth Hardin Memorial HospitalPain Management Office/Clinic Noteon [id number] Management Office/Clinic NoteChief Complaint low back radiates down right legHistory [...] Injections: 11-09-17 Date Surgery: n/a Frequency PT: [id number] Effective PT: not much help Effective Injections: [...] a daily basis. He has engaged in aformal course of physical therapy in 2017 with [...] of the lumbar spine for further evaluation associ ated with weakness in the right lower extremity. [...] losartan 100 mg oral tablet, 100 mg, 1tabs, Oral, Daily Metanx, 12.5 mg, Oral, BID warfarin 4 mg oral tablet, See InstructionsAllergies No Known AllergiesSocial History Alcohol Never Employment/School Retired Substance Abuse Denies All Tobacco Former smokerDiagnostic Results No qualifying data available. No qualifying data available. No qualifying data available. No qualifying data available.Electronically signed by Andrew DIAZ Kendra Baez 02/19/18 12:56 EDTNormal [facility] SystemHistory and Physicalon [id number] and PhysicalHistory of Present Illness The patient has a [...] today to undergo the procedure. It is feltthat the patient will likely benefit from the procedure and that the procedure is medically necessary noting the patient?s poor response to more conservative therapies. For these reasons we will proceed as planned with the bilateral sciatic nerve blockPhysical Exam Vitals & Measurements T: 36.3?C (Oral) RR: 16 BP: 156/99 SpO2: 95% [...] tablet, 81 mg, 1 tabs, Oral, Daily [id number] mg oral tablet, 40 mg, 1 tabs, [...] No qualifying data available.Electronically signed by Rosalee Silvestre MD 01/13/18 15:09 [facility] Procedure Noteon [id number] Management Procedure NotePROCEDURE: Bilateral sciatic nerve injection with corticosteroid. PREOPERATIVE [...] was placed in three 1 mL aliquots, precededby negative aspiration without sequela. The needle was removed, the insertion site was covered. Thesame procedure was repeated on the contralateral (right) [...] of a responsible adult.Electronically signed by Rosalee Silvestre MD 01/13/18 15:09 [facility] HospitalAmbulatory Patient Educationon [id number] Patient EducationPatient Education MaterialsName: Alvin Boyd Current Date: 01/06/2018 15:32:58 [facility] 1935 following sheet(s) are the Patient Education Leaflets for Alvin Boyd Block InjectionNerve Block injections are used in the treatment of nerve pain, which is sometimes the result of damage to the nerve.The nerve block is a combination ofa local anesthetic and steroid. This combination of medicine is then injected around a specific nerve. Disrupting painful nerve impulses can result in varying degrees of symptom relief.How is the procedure performed?You will have an IV started in the pre-op area. All of the sedation medication willgo thru your IV. You will be positioned [...] have some numbness in the area where thenerve block was done. This is from the medication used in the injection. It may take 3 days to get full benefits of this injection.What should I do after this procedure?You will be instructed not to drive until the next day. You must have a caterpillar driver that will wait in the Pain Management lobby during your entire visit. The next day you should be able to resume normal daily activities. You may returnto work the day after your procedure, unless [...] procedure: Please arrive at: Please check in at:[facility] Desk in the Pain Management [id number] [place] [address], 3rd floor [facility] Room at [address]*Due to the sedation given for the procedure, you will not be permitted to drive until the following day. For this reason, you will need to bring a caterpillar driver to stay with you and drive [...] Hibiclens (a medicated soap) prior to your surgery.*[place] teeth, rinse with water, but do not swallow.*Please wear comfortable clothing, without metal zippers or snaps. Do not wear contact lenses. Do wear your hearing aid. Please leave all jewelry and valuables at home; you may wear your wedding ring.*Please note that due to limited space, your family member/caterpillar driver will need to wait in the waiting area while you are in the procedure area. Absolutely no children should attend an appointment for an injection.*All prescription refills must be requested in advance. No prescription refills requested on theday of a procedure will be available until at least 3 business days later.*If your procedure is done in [place], you will be receiving a statement from [facility] for the professio nal (physician's) billing fees and for the technical (hospital's) fees and a separate statement forthe anesthesia provider. If your procedure is done in [place], you will be receiving a statement from [facility] for professional (physician's) billing fees, technical (hospital's) fees, as well as charges for the anesthesia provider.WHAT TO EXPECT THE DAY OF THE PROCEDURE:*Youwill be brought to the pre-op area where your medical history and medications will be reviewed. If you are scheduled to have sedation, the nurse will start your IV that will be used for administration of the sedation.*You will then be transported to the OR on a stretcher where the nurses will help p osition you for the injection.*The anesthesia provider will inject medicine into your IV that will make you sleepy. Your doctor will then perform the procedure under live x-ray. A small amount of dyemight also be used to confirm placement of the needle for the injection.*After the injection, you will be transferred on a stretcher to the recovery area. A nurse will check your vital signs and have you rate your pain as you wake up. This usually takes approximately 10 minutes. If you are having astimulator or pump procedure, please allow additional time. After the procedure, your family will be notified and you will be taken out to your car in a wheelchair.Should you have any questions or concerns, please contact the appropriate office:[facility] ([place] office) [phone] [place] [facility] ([place] office) [phone] follow up appointment is scheduled for:AT:[facility] [address] [facility], 3rd floor [facility], [facility] [address] [facility], [address], [facility] [address] [facility], 2nd floor clinic, [place] [address]?WHAT TO EXPECT AFTER THE PROCEDURE:Please note the procedure that is marked is the only information that pertains to you.You will receive a medication called [Diprivan(Propofol)/Versed(Midazolam)] to aid you to sleep. This medication has the ability to cause impairment to your memory, coordination , and judgment. It is also possible that you might feel dizzy and drowsy throughout the day. It is important for you to be aware of this and to take extra precautionary measures throughout the day.You will not receive anesthesia ___Diagnostic Facet Injections or Dorsal Medial Branch Block Injections/Genicular Nerve Blocks/Sacroiliac Joint InjectionsMonitor pain relief for 2 hours after the injections and keep pain diary if possible.Perform activities that typically cause pain and increase pain. (for example, bending, twisting, walking, amortization schedule clerk).Try to avoid pain medication or sleeping during [...] after injection.May take approximately 1 day to receivefull benefit of the injection.Sacroiliac Joint/Hip Injection/Ganglion Impar [...] call the office immediately if noted.Contact stimulator corporate sales representative with questions regarding stimulator use.(see [...] and call office immediately if noted.Contact stimulator corporate sales representative with questions regarding stimulator use.(see rep card)Spinal Cord Stimulator Implant- *Dr Swenson only*Take bandage off 48 hrs after surgery then can shower when bandage off. Only sponge bath until bandage is taken off.No weiss bmerging in water for 7 days after surgery.No bending, twisting or lifting for 6-8 weeks or as directed per your doctor.No driving with device in ?on? position.Monitor temperature and procedure site specifically for redness, yellow/green drainage and call immediately if noted.Contact stimulator repr esentative with questions regarding stimulator use.(see rep card)[facility] Office/Clinic Noteon [phone] Management Office/Clinic NoteChief Complaint bilateral posterior leg painHistory of Present [...] Last Procedure 1: bilateral L4-L5 TFESI PM Pr ocedure Date 1: 11/09/17 PM Pain Level Descr 1: significant relief x 2 hours PM Function Descr 1: able to function with less pain for a short period of time. Date Chiropractor: 11/2016 Date PT: 01/16 Date Injections: 11-09-17 Frequency PT: [id number] Effective PT: not much help Effective Injections: [...] and affect per situation. There are no obviousdeficits in memory, reasoning, or intellect. Skin-no obvious [...] BP Position/Location: Sitting, Left arm Peripheral Pulse Rate:67 bpmAssessment/Plan Bilateral SciaticaPhysician Comments The patient has failed physical and medical modalities as listed above. The patient has established candidacy for bilateral sciatic nerve block x1. Thank you for allowing me to participate in the patient?s care. I look forward to seeing them as a return patient following his injection therapy.Problem List/Past Medical History Ongoing Acidreflux Angina Carpal tunnel Congestive heart failure Home CPAP unit Hypertension Low back pain Sleep apnea Snoring Historical No qualifying dataProcedure/Surgical History Lumbar/Sacral TransforaminalEpidural Steroid Injection (Bilateral) (11/09/2017), pacemaker (09/23/2017), Lumbar [...] No qualifying data available. No qualifying data nighat ilable.Electronically signed by Ara Morales CNP 01/06/18 15:15 [facility] HospitalPain Management Office/Clinic Noteon [id number] Management Office/Clinic NoteHistory of Present Illness The patient has a longstanding history of severe chronic pain originating from the lumbar area which has been recalcitrant to conservative treatments and presents today alla interventional pain management procedure. REVIEW OF SYSTEMS Review of Psychiatric, Neurological,Musculoskeletal, Cardiovascular, Endocrine, Gastrointestinal, Pulmonary, and Hematologic Systems [...] the lumbar spine producing acquired lumbar spinal stenosisRisks/Benefits/Expected Outcomes of the planned procedure were discussed [...] these reasons we will proceed as planned withthe pain management procedure. Procedure - epidural injection-transforaminal approachPhysical Exam V itals & Measurements T: 36.6 ?C (Oral) RR: [...] Lumbar Radiofrequency Ablation (Right) (09/09/2017), Lumbar Radiofrequency Abla tion (Left) (08/26/2017), Lumbar/Sacral Dorsal Medial Branch Block (Bilateral) (06/29/2017), Lumbar/Sacral Dorsal Medial Branch Block (Bilateral) (06/15/2017), Lumbar/Sacral Transforaminal Epidural Steroid Injection (Bilateral) (04/22/2017), Lumbar/Sacral Transforaminal Epidural Steroid Injection (B ilateral) (02/18/2017), heart stents-x5, left carpal tunnel surgery, [...] No qualifying data available.Electronically signed by Rosalee Silvestre MD 11/09/17 09:27 [facility] HospitalProcedure Noteon 11-09-2017 Procedure NotePROCEDURE: Bilateral L4-5 lumbar nerve root injection under fluoroscopic guidance. Physician: Kelsie Mackey PRE- AND POSTOPERATIVE DIAGNOSES: Pain secondary to lumbar spinal stenosis. SOLUTION USED: 80 mg Depo- Medrol, 1 mL 2% preservative free lidocaine, 1 [...] as per treatment plan.Electronically signed by Rosalee Silvestre MD 11/09/17 09:36 [facility] HospitalAmbulatory Patient Educationon [id number] Patient EducationPatient Education MaterialsName: Alvin Boyd Current Date: 10/14/2017 11:49:11 [place] 1935 following sheet(s) are the Patient Education Leaflets for Alvin Boydaticaleb Name:You are scheduled for a:*Please allow up to 2 hours for your appointment. Late arrivals may result in delay or postponement of procedure.Date/Time of procedure: Please arrive at: Date/Time of procedure: Please arrive at: Please check in at:[facility] Desk in the Pain Management [id number] [facility], 3rd floor [facility] [place]Reception Desk inside the Emergency Room at [address]*Due to the sedation given for the procedure, you will not be permitted to drive until the following day. For this reason, you will need to bring a caterpillar driver tostay with you and drive you home following [...] To ensure your safety while using sedation, yourprocedure will be rescheduled if you eat or drink.*To decrease the risk of infection, please shower/bathe prior to your procedure. If you are having a stimulator or pump procedure, you will need to use Hibiclens (a medicated soap) prior to your surgery.*[place] teeth, rinse with water, but do not swallow.*Please wear comfortable clothing, without metal zippers or snaps. Do not wear contact lenses. Do wear your hearing aid. Please leave all jewelry and valuables at home; you may wear your wedding ring.*Please note that due to limited space, your family member/caterpillar driver will need to wait in the waiting area while you are in the procedure area. Absolutely no children should attend an appointment for an injection.*All prescription refills must be requested in advance. No prescription refills requested on the day of a procedure will be available until at least 3 business days later.*If your procedure is done in [place], you will be receiving a statement from [facility] for the professional (physician's) billing fees and for the technical (hospital's) fees and a separate statement for the anesthesia provider. If your procedure is done in [place], you will be receiving a statement from [facility] for professional (physician's) billing fees, technical [...] the OR on a stretcher where the nurseswill help position you for the injection.*The anesthesia provider will inject medicine into your IVthat will make you sleepy. Your doctor will [...] car in a wheelchair.Should you have any quest ions or concerns, please contact the appropriate office:[facility] ([place] office) [phone] [facility] ([place] office) [phone] follow up appointment is scheduled for:AT:[facility] [address] [facility], 3rd floor [facility], [facility] Management [address] [facility], [address], [facility] [address] [facility], 2nd floor [facility] [address] [place] [address]?WHAT TO EXPECT AFTER THE PROCEDURE:Please note the procedure that is marked is the only information that pertains to you.You will receive a medication called [Diprivan(Propofol)/Versed(Midazolam)] to aid you to sleep. This medication has the ability to cause impairment to your memory, coordination, and judgment. It is also possible that you might feel dizzy and drowsy throughout the day. It is important for you to be aware of this and to take extra precautionary measures throughoutthe day.You will not receive anesthesia Diagnostic Facet Injections or Dorsal Medial Branch Block Injections/Genicular Nerve Blocks/Sacroiliac Joint InjectionsMonitor pain relief for 2 hours after the injections and keep paindiary if possible.Perform activities that typically cause pain and increase pain. (for example, bending, twisting, walking, amortization schedule clerk).Try to avoid pain medication or sleeping during the first2 hours after the injection.Two hours is the expected duration of relief from this injection.Epidural Injections (Cervical, Thoracic, Lumbar, Caudal)Remove the band-aid 24 hours after the injection.May take approximately 3-5 days to receive the full benefits of the injection.Nerve Root Injections or Sciatic Nerve Block InjectionsIf lumbar (low back) injection, you may have a weak leg for a couplehours after.May take approximately 3-5 days to receive [...] 2 hours after injection.May take approximately 1 dayto receive full benefit of the injection.Sacroiliac Joint/Hip [...] call the office immediately if noted.Contact stimulator corporate sales representative with questions regarding stimulator use.(see rep card)Spinal Cord Stimulator ImplantNo showers (only sponge bath) for 7 days after procedure. Do not immerse in water for 3 weeks after surgery.If absorbable sutures are used, remove dressing at 48 hrs and may take shower then. No immersion in water for 3 weeksafter surgery.No bending, twisting or lifting for 6-8 weeks or as directed per your doctor.No driving with device in ?on? position.Monitor temperature and procedure site specifically for redness, yell ow/green drainage and call office immediately if noted.Contact stimulator corporate sales representative with questions regarding stimulator use.(see rep card)Spinal Cord Stimulator Implant- *Dr Swenson only*Take bandage off 48 hrs after surgery then can shower when bandage off. Only sponge bath until bandage is taken off.No submerging in water for 7 days after surgery.No bending, twisting or lifting for 6-8 weeksor as directed per your doctor.No driving with device in ?on? position.Monitor temperature and procedure site specifically for redness, yellow/green drainage and call immediately if noted.Contact stimulator corporate sales representative with questions regarding stimulator use.(see rep card)Nerve Root InjectionThenerve root injection is a procedure where a local anesthetic and steroid solution are administered near the nerve as it exits the spinal canal. This is done under fluoroscopy (watching under live x-ray) to deliver the drug to the precise location.Am I a candidate for a nerve root injection?At [facility], the provider examining you will [...] the procedure take?The procedure takes approximately 15 minutes.Whereis the procedure performed?It is done as an outpatient in our surgical suite under fluoroscopy.How is the procedure performed?An IV is started and you will receive sedation through the IV to make youcomfortable. A needle is advanced under fluoroscopic guidance [...] procedure. You are required to have a caterpillar driver remain in the facility before and during the procedure, then drive you home following the procedure.What can I expect after the procedure?Immediately after the procedure, you may have relief of your pain. Sometimes you may feel numbness in your legs or arms, depending upon where the procedure was done.This is from thelocal anesthetic that was used during the procedure. Four to six hours after the local anesthetic wears off, your pain may come back. Sometimes your pain may even get slightly worse for up to 48 hours. You may not see full improvement in your symptoms until the 4th or 5th day.What should I do afterthe procedure?After the procedure, you will be required [...] further instructions.What are the risks and side ef fects?Usually the procedure is safe. However, with any procedure, there are risks, side effects andcomplications. The risks, side effects, and complications vary depending upon where the nerve root injection was done. Whenever an injection is done through the skin, there is a risk of infection. Toprevent this, we perform the injection under sterile [...] have various rare conditions that affect blood clotting.Infection or bleeding in the spinal canal may lead to neurological damage. However, all the complications are extremely rare.Can you tell me more about the ?spinal headache??This headache usually develops as a result of spinal fluid leakage from the injection. It has different symptoms than other types of headaches, such as migraines. In our experience, the chance of someone developing a headacheis less than 1%. The headache may last [...] should stop taking any blood thinners at leastfive days before the procedure. You can take all of your other medications except oral diabetic meds with a sip of water the morning of the procedure. Diabetics, please discuss with your physician regarding your other diabetic medications. Also, check your fingerstick blood sugar at home the morning of the procedure. [facility]/Clinic Noteon [id number] Management Office/Clinic NoteChief Complaint Low back and leg painHistory of [...] Yes PM Last Procedure 2: Yes PM LastProcedure 2 Description: Right radio frequency ablation [id number] PM Procedure Date 2: 09/09/17 PM Pain Level Descr 2: 80% relief which continues PM Function Descr 2: 80% relief which continues PM RFA 2: Yes Date Chiropractor: 11/2016 Date PT: 01/16 Frequency PT: [id number] Effective PT: not much help Comments TENS: [...] modalities to help alleviate their pain symptoms. Thisincludes but not limited to home exercise program [...] includes but not limited to Tylenol and aspirinfor greater than a 3 month period of [...] and oriented x 4. Attentive and appropriate, constituti onally normal, displays normal mood and affect per situation. There are no obvious deficits in memory, reasoning, or intellect. Skin-no obvious rashes, bruising, erythema noted to the patient's area of pain. Extremities- extremities are warm with minimal edema and palpable pulses. Lumbar-tendernessto palpation noted in the lumbar spine and paraspinal musculature. Pain is elicited with flexion, extension, and lateral rotation of the lumbar spine. Range of motion is diminished with these motions. Facet loading maneuvers are negative. Sensory- dysesthesia is noted to the bilateral L4 dermatomal [...] No qualifying data available. No qualifying data avail able. No qualifying data available. No qualifying data available.Electronically signed by Auxier Kendra DIAZ 10/14/17 11:44 [facility] SystemHistory and Physical on [id number] and PhysicalHistory of Present IllnessHistory of Present Illness The [...] Steroid Injection (Bilateral) (02/18/2017), heart stents-x5, left ca rpal tunnel surgery, left hip replacement, left knee replacement, pacemaker, right hip replacement,right knee replacement.Medications Home aspirin 81 mg oral tablet, 81 mg, 1 tabs, Oral, Daily atorvastatin 40 mg oral tablet, 40 mg, 1 tabs, Oral, Daily carvedilol 25 mg oral tablet, 25 mg, 1 tabs, Oral, BID DULoxetine 30 mg oral delayed release capsule, 30 mg, 1 caps, Oral, Daily hydrALAZINE 50 mgoral tablet, 50 mg, 1 tabs, Oral, BID [...] No qualifying data available.Electronically signed by Rosalee Silvestre MD 09/09/17 11:17 EDT [facility] SystemComment on above:Order Comment: This dictation belongs to a different patientHistory and PhysicalHistory of Present Illness The patient has a longstanding history of severe chronic axial lumbar pain that has been recalcitrant to conservative treatments and presents today for a thermal lumbar RFAprocedure given the excellent response to diagnostic medial branch blocks at those levels REVIEW OFSYSTEMS Review of Psychiatric, Neurological, Musculoskeletal, Cardiovascular, Endocrine, Gastrointestinal, Pulmonary, and Hematologic Systems was conducted. The review was found to be noncontributoryand unchanged from previous clinic visit. PHYSICAL EXAM - Limited Patient is Constitutionally normal and displays a normal mood and affect per situation. Alert and Oriented x 4, Attentive and appropriate, Answers questions appropriately Vital Signs are Stable Heart - Normal Rate and Rhythm consistent with the patient?s history Lungs - No significant wheezing, Clear Bilaterally Focused examinationfindings pertaining to the lumbar include increased pain with lumbar facet loading maneuvers courseprior to the targeted levels today and no sensory or motor or DTR deficits in lower extremities focal nature. No evidence of neurotension referable to the lumbar spine. ASSESSMENT / PLAN Diagnosis - S evere Chronic lumbago as a result of the [...] therapy course, medication management including not only anti- inflammatories but also adjuvant medications. conservative therapies. For these reasons we will proceed as planned with the thermal RFA lesioning of the targeted medial branches in the lumbar spinePhysical Exam Vitals & Measurements T: 36.5 ?C (Oral) RR: 16 BP: 97/58SpO2: 94% WT: 97.5 kg Additional Vitals Peripheral Pulse Rate: 70 bpmProblem List/Past Medical History Ongoing Acid reflux Angina Carpal tunnel Congestive heart failure Home CPAP unit Hypertension Low back pain Sleep apnea Snoring Historical No qualifying dataProcedure/Surgical History Lumbar Radiofrequency Ablation (Right) (09/09/2017), Lumbar Radiofrequency Ablation (Left) (08/26/2017), Lumbar/Sacral Dorsal Medial Branch Block (Bilateral) (06/29/2017), Lumbar/Sacral Dorsal Medial Branch Block(Bilateral) (06/15/2017), Lumbar/Sacral Transforaminal Epidural Steroid Injection (Bilateral) (04/22/2017), Lumbar/Sacral Transforaminal Epidural Steroid Injection (Bilateral) (02/18/2017), heart stents-x5, left carpal tunnel surgery, left hip replacement, left knee replacement, pacemaker, right hip replacement, right knee replacement.Medications Home aspirin 81 mg oral tablet, 81 mg, 1 tabs, Oral, Daily atorvastatin 40 mg oral tablet, 40 mg, 1 tabs, Oral, Daily carvedilol 25 mg oral tablet, 25mg, 1 tabs, Oral, BID DULoxetine 30 mg oral delayed release capsule, 30 mg, 1 caps, Oral, Daily hydr ALAZINE 50 mg oral tablet, 50 mg, 1 [...] available. No qualifying data available.Electronically signed by Nirmala CAMACHO, Rosalee 09/09/17 11:20 [facility]Procedure Noteon 09-[facility]-2017 Procedure NotePROCEDURE: Radiofrequency ablation of the right L3, L4 and [...] informed consent, the patient was brought to theOR and placed in the prone position. The skin overlying the area was prepped and draped in standardsterile fashion. A 25-gauge needle was used to raise a skin wheal with 2% lidocaine over the right L3 DMR, which was identified under fluoroscopy. Subsequently, a radiofrequency needle with a 10 mm active tip was inserted through the anesthetized area and directed toward the L3 DMR under fluoroscopic guidance. After encountering the same, we had positive sensory stimulation at 0.5 mA and negativemotor stimulation at 2.5 mA. Thus, two lesions were created at this level. This was repeated in a similar fashion on the Right L4 and right L5 levels. Post lesioning we instilled 1 mL from the above corticosteroid solution per level. The needles were then removed. [facility] and transferred to the recovery area in stable condition, to be discharged home after meeting criteria and follow up as per treatment plan.Electronically signed by Rosalee Silvestre MD 09/09/17 11:21 TNoC[facility] SystemHistory and Physicalon [id number] and PhysicalHistory of Present Illness The patient has a longstanding history of severe chronic axial lumbar pain that has been recalcitrant to conservative treatments and presents today for a thermal lumbar RFAprocedure given the excellent response to diagnostic medial branch blocks at those levels REVIEW OFSYSTEMS Review of Psychiatric, Neurological, Musculoskeletal, Cardiovascular, Endocrine, Gastrointestinal, Pulmonary, and Hematologic Systems was conducted. The review was found to be noncontributoryand unchanged from previous clinic visit. PHYSICAL EXAM - Limited Patient is Constitutionally normal and displays a normal mood and affect per situation. Alert and Oriented x 4, Attentive and appropri ate, Answers questions appropriately Vital Signs are Stable Heart - Normal Rate and Rhythm consistent with the patient?s history Lungs - No significant wheezing, Clear Bilaterally Focused examinationfindings pertaining to the lumbar include increased pain with lumbar facet loading maneuvers courseprior to the targeted levels today and no sensory or motor or DTR deficits in lower extremities focal nature. No evidence of neurotension referable to the lumbar spine. ASSESSMENT / PLAN Diagnosis - Severe Chronic lumbago as a result of the above Risks/Benefits/Expected Outcomes of the planned procedure were discussed with the patient and the patient is in agreement that the potential benefits out weigh the risks of the procedure. The patient [...] Daily carvedilol 25 mg oral tablet, 25 mg,1 tabs, Oral, BID DULoxetine 30 mg oral [...] Tobacco Former smokerLab Results No qualifying data a vailable.Diagnostic Results No qualifying data available. No qualifying data available. No qualifying data available. No qualifying data available. No qualifying data available.Electronically signed b y Rosalee Silvestre MD 08/26/17 14:[address] [facility] SystemHistory and PhysicalHistory of Present Illness The patient has a longstanding history of severe chronic axial lumbar pain that has been recalcitrant to conservative treatments and presents today for a thermal lumbar RFAprocedure given the excellent response to diagnostic medial branch blocks at those levels REVIEW OFSYSTEMS Review of Psychiatric, Neurological, Musculoskeletal, Cardiovascular, Endocrine, Gastrointestinal, Pulmonary, and Hematologic Systems was conducted. The review was found to be noncontributoryand unchanged from previous clinic visit. PHYSICAL EXAM - Limited Patient is Constitutionally normal and displays a normal mood and affect per situation. Alert and Oriented x 4, Attentive and appropri ate, Answers questions appropriately Vital Signs are Stable Heart - Normal Rate and Rhythm consistent with the patient?s history Lungs - No significant wheezing, Clear Bilaterally Focused examinationfindings pertaining to the lumbar include increased pain with lumbar facet loading maneuvers courseprior to the targeted levels today and no sensory or motor or DTR deficits in lower extremities focal nature. No evidence of neurotension referable to the lumbar spine. ASSESSMENT / PLAN Diagnosis - Severe Chronic lumbago as a result of the above Risks/Benefits/Expected Outcomes of the planned procedure were discussed with the patient and the patient is in agreement that the potential benefits out weigh the risks of the procedure. The patient [...] tabs, Oral, BID DULoxetine 30 mg oral delayedrelease capsule, 30 mg, 1 caps, Oral, Daily hydrALAZINE 50 mg oral tablet, 50 mg, 1 tabs, Oral, BIDlosartan 100 mg oral tablet, 100 mg, 1 tabs, Oral, Daily Metanx, 12.5 mg, Oral, BID warfarin 4 mg oral tablet, See Instructions Inpatient Sodium Chloride 0.9% 500 mL, 500 mL, IV Prescriptions No active PrescriptionsAllergies No Known AllergiesSocial History Alcohol Never Substance Abuse Denies All T obacco Former smokerLab Results No qualifying data available.Diagnostic Results No qualifying data available. No qualifying data available. No qualifying data available. No qualifying data available.No qualifying data available.Electronically signed by Rosalee Silvestre MD 08/26/17 15:42 [facility] HospitalProcedure Noteon 08-26-2017 Procedure NotePROCEDURE: Radiofrequency ablation of the left L3, L4 and [...] a radiofrequency needle with a 10 mm activetip was inserted through the anesthetized area and directed toward the left L3 DMR under fluoroscopic guidance. After encountering the same, we had positive sensory stimulation at 0.5 mA and negativemotor stimulation at 2.5 mA. Thus, two lesions [...] as per treatment plan.Electronically signed by Rosalee Silvestre MD 08/26/17 15:42 [facility] HospitalAmbulatory Patient Educationon [id number] Patient EducationPatient Education MaterialsName: Alvin Boyd Current Date: 07/29/2017 14:05:41 [facility] 1935 following sheet(s) are the Patient Education Leaflets for Alvin Boyd Name:You are scheduled for a:*Please allow up to 2 hours for your appointment. Late arrivals may result in delay or postponement of procedure.Date/Time of procedure: Please arrive at: Date/Time of procedure: Please arrive at: Please check in at:[facility] Desk in the Pain Management [id number], 3rd floor [facility] OHReception Desk inside the Emergency Room at [address]*Due to the sedation given for the procedure, you will notbe permitted to drive until the following day. For this reason, you will need to bring a caterpillar driver to stay with you and drive you home following the procedure.*Do not eat or drink anything after midnight the night prior to the procedure. This includes gum, hard candy, and chewing tobacco. The only exception to this is heart, blood pressure, asthma, thyroid, or seizure medications. Those may be takenwith a sip of water the morning of the procedure. To ensure your safety while using sedation, your p rocedure will be rescheduled if you eat or drink.*To decrease the risk of infection, please shower/bathe prior to your procedure. If you are having a stimulator or pump procedure, you will need to use Hibiclens (a medicated soap) prior to your surgery.*[place] teeth, rinse with water, but do not swallow.*Please wear comfortable clothing, without metal zippers or snaps. Do not wear contact lenses. Do wear your hearing aid. Please leave all jewelry and valuables at home; you may wear your wedding ring.*Please note that due to limited space, your family member/caterpillar driver will need to wait in the waiting area while you are in the procedure area. Absolutely no children should attend an appointment alla injection.*All prescription refills must be requested in advance. No prescription refills requested on the day of a procedure will be available until at least 3 business days later.*If your procedure is done in [place], you will be receiving a statement from [employer] for the professional (physician's) billing fees and for the technical (hospital's) fees and a separate statement for the anesthesia provider. If your procedure is done in [place], you will be receiving a statement from [facility] [employer] for professional (physician's) billing fees, technical (hospital's) [...] car in a wheelchair.Should you have any questi ons or concerns, please contact the appropriate office:[facility] ([place] office) [phone] ([place] office) [phone] follow up appointment is scheduled for:AT:[facility] [address] [facility], 3rd floor [facility], [facility] [address] [facility], [address], [address], 2nd floor clinic, [facility] [address] [place] [address]?WHAT TO EXPECT AFTER THE PROCEDURE:Please note the procedure that is marked is the onlyinformation that pertains to you.You will receive a medication called [Diprivan(Propofol)/Versed(Midazolam)] to aid you to sleep. This medication has the ability to cause impairment to your memory, coordination, and judgment. It is also possible that you might feel dizzy and drowsy throughout the day. It is important for you to be aware of this and to take extra precautionary measures throughout the day.You will not receive anesthesia Diagnostic Facet Injections or Dorsal Medial Branch Block Injections/Genicular Nerve Blocks/Sacroiliac Joint InjectionsMonitor pain relief for 2 hours after the injections and keep pain diary if possible.Perform activities that typically cause pain and increase pain. (for example, bending, twisting, walking, amortization schedule clerk).Try to avoid pain medication or sleeping during [...] increased pain occurs.May take approximately 3-4 weeks toreceive full benefits of the procedure.May cause increased pain the first 3-5 days after procedure.Continue taking pain medication as prescribed. Call Pain [...] call the office immediately if noted.Contact stimulator corporate sales representative with questions regarding stimulator use.(see [...] temperature and procedure site specifically for redness, yello w/green drainage and call office immediately if noted.Contact stimulator corporate sales representative with questions regarding stimulator use.(see [...] drainage and call immediately if noted.Contact stimulator corporate sales representative with questions regarding stimulator use.(see rep card)Radiofrequency Ablation TreatmentRadiofrequency Ablation Treatment is a procedure using a specialized machine to interrupt nerve conduction on a semi- permanent basis. The nerves are usually blocked for a period as short as 3 months, or as long as 18 months.Am I a candidate for Radiofrequency Ablation Treatment?Currently, Radiofrequency Ablations Treatment is offered to patients with:1. Headache, especially pain arising from the back of the head (?cervicogenic headache?)2. Neck pain, following injury and automobile accid ents3. Back pain, following injury and automobile accidents4. Mechanical neck or low back pain due to facet joint disease5. Occipital neuralgiaYou must have responded well to diagnostic blocks to be a candidate for Radiofrequency Ablation Treatment.What are the benefits of Radiofrequency Ablation Tr eatment?The procedure disrupts nerve conduction (such as conduction of pain signals), and it may inturn reduce pain and other related symptoms. Approximately [...] as an outpatient in our surgical suite underflouroscopy (X-ray guidance). Depending upon the areas to be treated, the procedure takes about 20 minutes. Since the nerves cannot be seen on x-ray, the needles are positioned using bony landmarks that indicate where the nerves usually are. Fluoroscopy is used to identify those bony landmarks. Theskin on the back is cleaned with antiseptic [...] be awake during this part of the procedureso you can report what you are feeling. The tissues surrounding the needle tip are then heated whencurrent is passed using the Radiofrequency machine. This ?numbs? the nerves semi- permanently.I am afraid of needles. Will I have [...] sedation. You are required to have a caterpillar driver remain in the facility before and during the procedure, then drive you home following the procedure.What should I expect after the procedure?You are required to have a caterpillar driver remain in the waiting room of [facility] during the procedure and [...] your provider;How should I prepare for the p rocedure?Unless otherwise instructed, you should not eat or drink anything after midnight the nightbefore the procedure. You should stop taking any blood thinners like Coumadin at least five days before the procedure. You can take all of your other medications except oral diabetic meds with a sip of water the morning of the procedure.Diabetics, please discuss with your physician regarding your other diabetic medications.[facility] Office/Clinic Noteon [phone] Management Office/Clinic Note Chief Complaint low back pain bilateral posterior leg painHistory of Present Illness Day ProgressesBehavior: Same PM Pain location and laterality: low [...] numbness and tingling right arm PM Pain Status:Unchanged PM Last Procedure 1: bilateral DMR L3L4L5 [...] Function Descr 2: able to function better withoutpain x 2 weeks Date Chiropractor: 11/2016 Date PT: 01/16 Frequency PT: [id number] Effective PT: not much help Comments TENS: [...] with no reduction in pain symptoms. This patienthas tried over the counter medications and prescription [...] palpable pulses. Lumbar- significant tenderness to palpation notedin the lumbar spine and paraspinal musculature. Pain is elicited with extension, and lateral rotation of the lumbar spine. Range of motion is slightly diminished with these motions due to pain. Facetloading maneuvers are positive on the bilaterally and [...] right L3, L4, L5 rhizotomy. Thank you forallowing me to participate in the patient?s care. I look forward to seeing them as a return patientfollowing his injection therapy.Problem List/Past Medical History Ongoing Acid reflux Angina Carpal tunnel Congestive heart failure Home CPAP unit Hypertension Low back pain Sleep apnea Snoring Historical No qualifying dataProcedure/Surgical History Lumbar/Sacral Dorsal Medial Branch Block (Bilateral) (06/29/2017), Lumbar/Sacral Dorsal Medial Branch Block (Bilateral) (06/15/2017), Lumbar/Sacral Tr ansforaminal Epidural Steroid Injection (Bilateral) (04/22/2017), Lumbar/Sacral Transforaminal Epidural Steroid Injection (Bilateral) (02/18/2017), heart stents-x5, left carpal tunnel surgery, left hip replacement, left knee replacement, pacemaker, right hip replacement, right knee replacement.Medic ations aspirin 81 mg oral tablet, 81 mg, 1 tabs, Oral, Daily atorvastatin 40 mg oral tablet, 40 mg,1 tabs, Oral, Daily carvedilol 25 mg oral tablet, 25 mg, 1 tabs, Oral, BID DULoxetine 30 mg oral delayed release capsule, 30 mg, 1 caps, Oral, Daily hydrALAZINE 50 mg oral tablet, 50 mg, 1 tabs, Oral, BID losartan 100 mg oral tablet, 100 mg, 1 tabs, Oral, Daily Metanx, 12.5 mg, Oral, BID warfarin 4mg oral tablet, See InstructionsAllergies No Known AllergiesSocial History Alcohol Never Substance Abuse Denies All Tobacco Former smokerDiagnostic Results No qualifying data available. No qualifyingdata available. No qualifying data available. No qualifying data available.Electronically signed by_ Andrew DIAZKendra 07/29/17 13:55 EDTNoCleveland Clinic [facility] Hospital SystemHistory and Physicalon [id number] and PhysicalHistory of Present Illness The patient has a [...] Patient is Constitutionally normal and displays a normalmood and affect per situation. Alert and Oriented x 4, Attentive and appropriate, Answers questionsappropriately Vital Signs are Stable Heart ? Normal [...] potential benefits outweigh the risks of the procedure.The patient does appear to be in acceptable health today to undergo the procedure. The procedure ismedically necessary noting the patient?s poor response to [...] Block (Bilateral) (06/15/2017), Lumbar/Sacral Transforaminal Epidural Steroid Inj ection (Bilateral) (04/22/2017), Lumbar/Sacral Transforaminal Epidural Steroid Injection [...] BID warfarin 4 mg oral tablet, See Instruct ions Inpatient No active inpatient medications Prescriptions No active PrescriptionsAllergies No Known AllergiesSocial History Alcohol Never Substance Abuse Denies All Tobacco Former smokerLab Results No qualifying data available.Diagnostic Results No qualifying data available. No qualifying data av ailable. No qualifying data available. No qualifying data available. No qualifying data available.Electronically signed by Rosalee Silvestre MD 06/29/17 13:18 EDNoOhioHealth Hardin [facility] HospitalProcedure Noteon 06-29-2017 Procedure NotePROCEDURE: Bilateral L3, L4 and L5 lumbar diagnostic [...] as well as the L3, L4 and P6dymqce dorsal medial rami on the right. For each level the needle tip position was confirmed with multi-angled projections and identification of the relative anatomic landmarks. At each level, 0.5 mLof solution was injected and needle was withdrawn. The patient was turned back onto the rr[place]ian mission and taken to recovery in stable condition to be discharged per criteria.Electronically signed by Rosalee Silvestre MD 06/29/17 14:[address] [facility] SystemHistory and Physicalon 06-15-2017 History and PhysicalHistory of Present Illness The patient has a [...] Oriented x 4, Attentive and appropriate, Answers questionsappropriately Vital Signs are Stable Heart - Normal [...] T: 36.4 ?C (Oral) RR: 18 BP: 149/89SpO2: 97% WT: 98 kg Additional Vitals No qualifying data available.Problem List/Past Medical History Ongoing Acid reflux Angina Carpal tunnel Congestive heart failure Home CPAP unit Hypertension Low b ack pain Sleep apnea Snoring Historical No qualifying dataProcedure/Surgical History Lumbar/Sacral Dorsal Medial Branch Block (Bilateral) (06/15/2017), Lumbar/Sacral Transforaminal Epidural Steroid Injection (Bilateral) (04/22/2017), Lumbar/Sacral Transforaminal Epidural Steroid Injection (Bilateral ) (02/18/2017), heart stents-x5, left carpal tunnel surgery, [...] No qualifying data available. No qualifying data available.E lectronically signed by Rosalee Silvestre MD 06/15/17 16:22 EDTNoOhioHealth Hardin Memorial HospitalProcedure Noteon [id number] NotePROCEDURE: Bilateral L3, L4 and L5 lumbar diagnostic [...] as well as the L3, L4 and U6cxbfjx dorsal medial rami on the right. For each level the needle tip position was confirmed with mu lti-angled projections and identification of the relative anatomic landmarks. At each level, 0.5 mLof solution was injected and needle was withdrawn. The patient was turned back onto the rrussian mission and taken to recovery in stable condition to be discharged per criteria.Electronically signed by Rosalee Silvestre MD 06/15/17 16:23 [facility] HospitalAmbulatory Patient Educationon 05-27-2017 Ambulatory Patient EducationPatient Education MaterialsName: Alvin Boyd Current Date: 05/27/2017 10:03:36 [place] 1935 MRN: [id number] [facility]: [id number] following sheet(s) are the Patient Education Leaflets for Boyd, Alvin JoeFacet Joint InjectionFacet joints are small joints on either side of each vertebra in the spinal column. They connect each vertebra with the vertebra above and below. Thesejoints help us to bend forward and backward and, to a limited extent, to the side. Facet joint blocks are injections of local anesthetic with or without cortisone into the facet joints.What are the di agnostic blocks of the facet joints?Each facet joint is supplied by two small nerves. In diagnosticblocks for facet joints, local anesthetic is used [...] have a lot of pain?Your physician at [facility] will do everything possible to do the procedure with minimal, if any, pain. As explained above, you will be given sedation intravenously and local anesthetic (numbing medication) will be injected at the site of the needle placement.Can I be sedated for the procedure?Yes. You willbe awake but usually very comfortable during the procedure. On occasion we will need to interact with you. It is likely that you will have no memory of the actual procedure. You are required to have a caterpillar driver remain in the facility before and during the procedure, then drive you home following the procedure.What should I expect after the procedure?This procedure is done for diagnostic purposes. Ifthe source of your pain is from these [...] should discuss this with your provider for f urther instructions.How should I prepare for the procedure?Unless otherwise instructed, you should not eat or drink anything after midnight the night before the procedure. You can take all of your other medications except oral diabetic meds with a sip of water the morning of the procedure. Diabetics, please discuss with your physician regarding your other diabetic medications.Patient Name:You arescheduled for a:*Please allow up to 2 hours for your appointment. Late arrivals may result in delayor postponement of procedure.Date/Time of procedure: Please arrive at: Date/Time of procedure: Please arrive at: Please check in a t:[facility] Desk in the Pain Management D[address] [place] [address], 3rd floor [facility] inside the Emergency Room at [address]*Due to the sedation given for the procedure, you will not be permitted to drive until the following day. For this reason, you will need to bring a caterpillar driver to stay with you and drive you home following the procedure.*Do not eat or drink anything after midnight the night prior to the procedure. This includes gum, hard candy, and chewing tobacco. The only exception to this is heart, blood pressure, asthma,thyroid, or seizure medications. Those may be taken with a sip of water the morning of the procedure . To ensure your safety while using sedation, your procedure will be rescheduled if you eat or drink.*To decrease the risk of infection, please shower/bathe prior to your procedure. If you are havinga stimulator or pump procedure, you will need to use Hibiclens (a medicated soap) prior to your surgery.*[place] teeth, rinse with water, but do not swallow.*Please wear comfortable clothing, without metal zippers or snaps. Do not wear contact lenses. Do wear your hearing aid. Please leave all jewelry and valuables at home; you may wear your wedding ring.*Please note that due to limited space, yourfamily member/caterpillar driver will need to wait in the waiting area while you are in the procedure area. Absolutely no children should attend an appointment for an injection.*All prescription refills must be requested in advance. No prescription refills requested on the day of a procedure will be available until at least 3 business days later.*If your procedure is done in [place], you will be receiving a statement from [facility] for the professional (physician's) billing fees and for the technical (hospital's) fees and a separate statement for the anesthesia provider. If your procedure is done in [place], you will be receiving a statement from [facility] forprofessional (physician's) billing fees, technical (hospital's) fees, as [...] will help position you for the injection.*The ane sthesia provider will inject medicine into your IV that will make you sleepy. Your doctor will thenperform the procedure under live x-ray. A small [...] any questions or concerns, please contact the appropriateoffice:[facility] ([place] office) [phone] [facility] ([place] office) [phone] follow up appointment is scheduled for:AT:[facility] [address] [facility], 3rd floor [facility] [address] [facility], [address], [facility] [address] [facility], 2nd floor clinic, [facility] [address] [facility]?WHAT TO EXPECT AFTER THE PROCEDURE:Please note the procedure that is marked is the only information that pertains to you.You will receive a medication called [Diprivan(Propofol)/Versed(Midazolam)] to aid you to sleep. This medication has the ability to cause impairment to your memory, coordination, and judgment. It is also possible that you might feel dizzy and drowsy throughout the day. It is important for you to be aware of this and to take extra precautionary measures throughout the day.You will not receive anesthesia Diagnostic Facet Injections or Dorsal Medial Branch Block Injections/Genicular Nerve Blocks/Sacroiliac Joint InjectionsMonitor pain relief for 2 hours after the injections and keep pain diary if possible.Perform activities that typically cause pain and increase pain. (for example, bending, twisting, walking, amortization schedule clerk).Try toavoid pain medication or sleeping during the first [...] call the office immediately if noted.Contact stimulator corporate sales representative with questions regarding stimulator use.(see [...] redness, yellow/green drainage and call office immediately ifnoted.Contact stimulator corporate sales representative with questions regarding stimulator use.(see rep card)Spinal Cord Stimulator Implant- *Dr Swenson only*Take bandage off 48 hrs after surgery then can shower whenbandage off. Only sponge bath until bandage is taken off.No submerging in water for 7 days after ez luis.No bending, twisting or lifting for 6-8 weeks or as directed per your doctor.No driving with device in ?on? position.Monitor temperature and procedure site specifically for redness, yellow/greendrainage and call immediately if noted.Contact stimulator corporate sales representative with questions regarding stimulator use.(see rep card)[facility] System[facility] Office/Clinic Noteon 06-30-3483Segu Management Office/Clinic NoteChief Complaint LOW BACK PAIN AND BILATERAL LEG [...] 1-2 WEEKS PM Function Descr 1: ABLE TOSIT MORE COMFORTABLE X 1-2 WEEKS PM Last Procedure 2: Yes PM Last Procedure 2 Description: BILATERAL TF BRIAN PM Procedure Date 2: 02/18/17 PM Pain Level Descr 2: 60% RELIEF X 2 WEEKS PM Function Descr2: ABLE TO SIT MORE COMFORTABLE Date Chiropractor: 11/2016 Date PT: 01/16 Frequency PT: 4rylulz2cwclqBcsqcaklp PT: not much help Comments TENS: NO [...] patient has engaged in a 6 week courseof dedicated physiologic therapeutics within the last 3 months. A 6 week trial of activity modification including transition maneuver avoidance as well as strict upper extremity lift and movement limits has failed to provide reprieve. The patient has failed to respond to a 3 month trial of oral analgesic therapy including nonsteroidal anti-inflammatory agents and muscle relaxant modalities.[employer] A review of systems was conducted and noted to be noncontributory to the patients presenting complaint. Full details are available on form PM-82 completed by the patient and added to the re cord on today?s date.Physical Exam Vitals & Measurements [...] following injection therapy.Physician Comments This document serves asa record of the services and decisions personally performed and made by the attending provider. It was created on his/her behalf by a trained medical education manager. The creation of this document is based onthe provider?s statements to the medical education manager.Problem [...] right hip replacement, right knee replacement.Medications aspirin 81mg oral tablet, 81 mg, 1 tabs, Oral, Daily atorvastatin 40 mg oral tablet, 40 mg, 1 tabs, Oral, Daily carvedilol 25 mg oral tablet, 25 mg, 1 tabs, Oral, BID DULoxetine 30 mg oral delayed release capsule, 30 mg, 1 caps, Oral, Daily hydrALAZINE 50 mg oral tablet, 50 mg, 1 tabs, Oral, BID losartan 100mg oral tablet, 100 mg, 1 tabs, Oral, Daily Metanx, 12.5 mg, Oral, BID warfarin 4 mg oral tablet, See InstructionsAllergies No Known AllergiesSocial History Alcohol Never Substance Abuse Denies All Tobacco Former smokerDiagnostic Results No qualifying data available. No qualifying data available. No qualifying data available. No qualifying data available.Electronically signed by Carmenza Carlton 05/27/17 10:14 EDTElectronically signed by Kendra Morales CNP 05/27/2017 10:22 [facility] Vital Signs Date TimeVital SignValuePerforming GmofsljvaQcmaemlg40-50-8191 09:25-0400Body omblwh682.7 cmSteven Rusher DPM Work Phone: [facility] CenterYvlzvqyodr65-20-2341 09:25-0400Body mass index (BMI) [Ratio]33.15 kg/l4Qtawnc Rusher DPM Work Phone: [phone]06-18-2025 09:25-0400Body lpgaiw99.88 kgSteven Rusher DPM Work Phone: [phone] CenterQhorydioul97-63-7296 09:08-0500Body bbirgy865.5 cmSteven Rusher DPM Work Phone: [phone] CenterGyvqszhdzy73-35-7115 09:08-0500Body mass index (BMI) [Ratio]34.57 kg/q9Evusxs Rusher DPM Work Phone: [phone] CenterKwywtjfjby68-54-6363 09:08-0500Body molqcu091.61 kgSteven Rusher DPM Work Phone: noMS Healthcare Encounters Encounter DateEncounter TypeCare ProviderFacilityStart: 53-75-6915Wcnlqarvyw and management of inpatient[facility] Start: 88-05-0191Ndrskcabwt and management of inpatientABHISHEK [facility] Centertart: 56-31-9211Mdpplfarmc and management of inpatient LUNA [facility] Centertart: 09-17-2025 End: 66-53-1162Yypbysreyj and management of inpatientSARMED [facility] Hospitaltart: 55-81-4151xufvfdatvqXFLZUC Healthtart: 80-82-5008venmlnjaifYLCSR GRUBBURegency Hospital Toledotart: 76-06-1807fztyrdxchvONGWWooster Community Hospital Start: 65-97-8767oivfwfhbwjKRQXR GRUBBUniCentervilletart: 01-05-1044ajfhbhuvkeZRQHA GRUBBUniCentervilletart: 06-19-2025 End: 92-68-5496hooyfouoeiEUNNRJ [facility] Start: 05-17-2025 End: 25-18-8948Tbexoo flowsheetSteven A Rusher DPM Work Phone: noMS PODIATRYStart: 05-17-2025 End: 42-13-8599Iuskes flowsheetSteven A Rusher DPM Work Phone: noms PODIATRYStart: 05-17-2025 End: 57-36-1459Pukbvkl encounter procedureSteven A Rusher DPM Work Phone: noms PODIATRYComment on above:Dermatophytosis of nail (Primary Dx); Dystrophic nail; Pain around toenail, right foot; Pain around toenail, left footStart: 05-17-2025 End: 31-43-8478dycfvhnfhaEJSTZL A RUSHERNot AvailableStart: 05-09-2025 End: 48-05-1263tgvtlesrolZQLPUC Healthtart: 76-54-2892itzofzcqcjOZQVUC Healthtart: 22-67-4554jkwvtxwazaBKQMUC Healthtart: 41-26-7403yupegceoqdAXMJUC Healthtart: 62-67-0308qiupgwrpfeLDMIUC Healthtart: 01-25-2025 End: 81-55-5212Mehfhn flowsheetSteven A Rusher DPM Work Phone: noms PODIATRYStart: 01-25-2025 End: 82-73-9803Moxuux flowsheetSteven A Rusher DPM Work Phone: noms PODIATRYStart: 01-25-2025 End: 74-48-8887Xasezcp encounter procedureSteven A Rusher DPM Work Phone: noms PODIATRYComment on above:Dermatophytosis of nail (Primary Dx); Dystrophic nail; Pain around toenail, right foot; Pain around toenail, left footStart: 01-25-2025 End: 84-76-8534srypqfhucmFKPNJE A RUSHERNot AvailableStart: 11-30-2024 End: 43-86-9038pmogbyqwnmDilttdb M [facility] Work Phone: Start: 11-30-2024 End: 73-33-4961Shhwzlsl Stacey Amado MD Work Phone: [facility]-LAB Path Spec Sally HospStart: 11-08-2024 End: 68-22-4376kjoyjvjwgoIZMUClinton Memorial Hospitaltart: 10-19-2024 End: 16-63-4768Jvjevh flowsheetSteven A Rusher DPM Work Phone: noms PODIATRYStart: 10-19-2024 End: 49-52-9863Gdmtdl flowsheetSteven A Rusher DPM Work Phone: [facility] PODIATRYStart: 10-19-2024 End: 06-15-4190Cmsgqjz encounter procedureSteven A Rusher DPM Work Phone: [facility] PODIATRYComment on above:Dermatophytosis of nail (Primary Dx); Dystrophic nail; Pain around toenail, right foot; Pain around toenail, left footStart: 10-19-2024 End: 16-99-9037ggahebenetJEMKQE A RUSHERNot AvailableStart: 06-29-2024 End: 22-26-3466grseuliflwQODNXG A RUSHERNot AvailableStart: 03-30-2023 End: 62-20-4997nxgvfjlwlnQLYRDA H FAWWADFacility:K4Ypyuk: 03-02-2023 End: 85-24-2794vqlmtozigeFNDDJB H FAWWADFacility:F0Fyehe: 01-28-2023 End: 79-04-9679naeekvniqrCQOYRV H FAWWADFacility:P9Dkzwc: 12-31-2022 End: 96-37-7078fjpyvocsobSCGYWD H FAWWADFacility:F3Wrxas: 12-18-2022 End: 83-54-8405xowtohluxdUFGUSW CHONGFacility:N0Zzwgh: 12-01-2022 End: 15-33-9485gljvxricobSYLQDX H FAWWADFacility:J7Wamsy: 11-11-2022 End: 02-42-4372wopjfmnacoOT RIO VALONEFacility:F3Zirkt: 10-30-2022 End: 23-69-9125ixdsjhyipfWROCQP H FAWWADFacility:L1Eciew: 09-30-2022 End: 22-69-7855alytempcpvGMOJLT H FAWWADFacility:J9Rgwrp: 09-01-2022 End: 80-52-9779afmfhoedrbHBBHHG H FAWWADFacility:L4Zavzk: 07-31-2022 End: 07-64-3526vhifputsmkTODBUI H FAWWADFacility:D8Yaqme: 06-30-2022 End: 26-41-9280infekordwfPVKSIW H FAWWADFacility:B7Fkwdu: 05-30-2022 End: 98-37-8077ftgbxwueniZPMXKL H FAWWADFacility:H5Pfzlt: 06-24-2019 End: 59-12-1683Dvolwcd encounter procedureRIO LALFacility:UTMCStart: 06-21-2019 End: 94-33-6984Jwhwgje encounter procedureGERBER PETERFacility:UTMCStart: 04-13-2018 End: 69-06-5735QqabqrsoaiQetsvvc Lewis ValoneFacility:[facility]ettStart: 04-06-2018 End: 11-92-6324SuhznejhmiBTZSENL LEWIS VALONEFacility:[facility] Start: 03-29-2018 End: 44-53-6683DcioskdjgcLNFXKRP KAY FOXFacility:[facility]ettStart: 03-16-2018 End: 21-87-8579NnjjltnianZTHLVDZ MARIE AUXIERFacility:[facility] [place] Start: 02-19-2018 End: 05-64-2998FkobzhbnvpAVGDOTT LEWIS VALONEFacility:[facility] [place] Start: 01-13-2018 End: 33-54-0023IllnaklcouIAZTSFHSIM BAKOSFacility:[facility] Start: 01-06-2018 End: 82-62-8987PntkyfvaeqVYWQFRB SASHA AUXIERFacility:[facility] [place] Start: 11-09-2017 End: 44-26-3527RqjfnuguveLWOZFTNKST BAKOSFacility:[facility] Start: 10-14-2017 End: 43-62-3847EcvxrljltsFIHHOXG SASHA AUXIERFacility:[facility] [place] Start: 09-09-2017 End: 76-87-6064AehqeygslvMAVVQNCDBP BAKOSFacility:[facility] Start: 08-26-2017 End: 19-77-8408RjlvkddngfUOHATHPLOM BAKOSFacility:[facility] Start: 07-29-2017 End: 17-34-2689SnwsfehaoeMJGAOOH SASHA AUXIERFacility:[facility] [place] Start: 06-29-2017 End: 71-56-2118OaphmpexpbZZSITHUYYB BAKOScilaultman orrville hospital:[facility] Start: 06-15-2017 End: 27-88-3893HernclniqmHKNPFKLZZZ BAKOScility:[facility] Start: 05-27-2017 End: 90-36-2214YkceurotmaFUNCUUM MARIE AUXIERFacility:[facility] [place] Procedures DateProcedureProcedure DetailPerforming ClinicianStart: 59-96-1307Wtgj stain microscopyJose Amado MD Work Phone: Plan of Treatment DateCare ActivityDetailAuthorStart: 09-18-2025 End: 86-37-4250Hafkzwf encounter eriguvgne72/20/2025 9:30 AM EDT Procedure Visit [facility] [address] [place] [phone] Amy Daily DPM [address] [place] [address] [facility] PODIATRYStart: 06-60-6208Caotgvpik vaccinationInfluenza Vaccine (Season Ended)[facility] HealthcareStart: 05-17-2025 End: 08-38-4311Yjvnkde encounter procedureNOMS PODIATRYComment on above: ArrivedStart: 01-25-2025 End: 28-11-7502Pbjmwyg encounter procedureNOMS PODIATRYComment on above: ArrivedStart: 37-25-6290Kbhhnie CultureAerobic CultureSelect Medical Cleveland Clinic Rehabilitation Hospital, Edwin Shawtart: 01-39-4074Elnwdigbt culture of sputumSelect Medical Cleveland Clinic Rehabilitation Hospital, Edwin Shawtart: 10-19-2024 End: 10-38-1906Rzvlday encounter soapvwpet77/20/2024 9:15 AM EST Procedure Visit [facility] [address] [place] [phone] Amy Daily DPM [address] [place] [address] [facility] PODIATRYComment on above:ArrivedStart: 19-96-0638Oticvzgae vaccinationInfluenza Vaccine (#1)[facility] HealthcareStart: 73-62-8999Zeyrvghnbolo Vaccine: 65+ Years (2 of 2 - PPSV23 or PCV20)Pneumococcal Vaccine: 65+ Years (2 of 2 - PPSV23 or PCV20)[facility] HealthcareStart: 81-17-3935Kxaahpokiwpz Vaccine: 65+ Years (2 of 2 - PPSV23)Pneumococcal Vaccine: 65+ Years (2 of 2 - PPSV23)[facility] Immunizations Immunization DateImmunizationNotesCare MbequqqiLwambggs76-24-2399dskwovuwq, injectable, quadrivalent, preservative freeSteven Rusher DPM Work Phone: [facility] CenterVkpboyxudo15-35-9828gfawphbdt virus vaccine, unspecified formulationSteven Rusher DPM Work Phone: [facility] CenterRziddfscim40-49-7377jkyftqhmmbmp conjugate vaccine, 13 valentSteven Rusher DPM Work Phone: [facility] CenterUpfhddrdty19-93-8320slwhwavxv, injectable, quadrivalent, preservative freeSteven Rusher DPM Work Phone: [facility] Payers DatePayer CategoryPayerPolicy [id number]-[id number] Health InsuranceAARP [id number] [id number] [id number] [id number] [id number] 2.16.840.1.536610.3.57[id number] 2.16.840.1.389746.3.57[id number] 2.16840.1.081222.3.57[id number] 2.16.840.1.744601.3.57[id number] 2.840.1.487431.3.57[id number] 2.840.1.353695.3.57[id number] 2.840.1.696485.3.57[id number] 2.840.1.760452.3.57[id number] 2.16840.1.046405.3.57[id number] 2.840.1.343976.3.57[id number] 2.840.1.046881.3.57[id number] 2.840.1.858670.3.57[id number] 2.16840.1.651657.3.57[id number] 2.840.1.287749.3.57[id number] 2.0.1.903223.3.57[id number] 2.0.1.437669.3.57[id number] 2.0.1.361838.3.57[id number] 2.0.1.342243.3.57[id number] 2.0.1.544[id number]-i0jd-[id number] 2.0.1.237961.3.579.2.531 Social History DateTypeDetailFacilityStart: 00-40-4238Jxfoduu smoking status NHISEx-smokerNOMS HealthcareHistory of tobacco useCurrent smokerNOMS HealthcareHistory of tobacco useCigarette SmokerNOMS HealthcareStart: 95-37-2242Unxnnnf use and exposure Smokeless tobacco non-userNOMS HealthcareStart: 06-29-2024 End: 41-79-2941Eismylvie beverage intakeLifetime non-drinker (finding)[facility] HealthcareStart: 06-29-2024 End: 87-80-3294Spcxzwp of Social functionNOMS HealthcareStart: 06-29-2024 End: 32-46-3492Ceinfqd use panelNOMS HealthcareStart: 34-19-8844Uszlost Comment Caffeine intake: noneNOMS HealthcareStart: 54-87-5842Oxw assigned at birthNot on fileNOMS HealthcareTobacco smoking status NHISUnknown if ever smokedPremier Health [facility] Work Phone: Start: 57-98-6709RahWuxz (finding)[facility] Shawtart: 96-45-3910Lda Assigned At [facility] Clinical Notes 10-19-2024 to 09-20-2025 Note Date & IrkyQsioHvxidsoe91-87-9884 NoteHospital Medicine Discharge Summary Date of Admission: 09/17/2025 [...] pacemaker implantation, hypertension, hyperlipidemia, atrial fibrillation on chronic Coumadin therapy, and obesity. He was transferred from [facility] for higher level of care after being diagnosed with NSTEMI, with an initial troponin of >10,000. On arrival to [facility], he was hemodynamically stable and pain-free. Initial troponin was 4,674 and BNP 1,209. Coumadin was held on admission, and he was started on IV heparin. Cardiology was consulted. Echocardiogram on 09/18/2025 revealed severe left atrial enlargement with an EF of 40%. INR was 2.19, for which he received 2.5 mg of vitamin K. Heparin infusion was continued until INR decreased, and he was maintained on goal-directed medical therapy including Lipitor, Coreg, and Lasix. [...] and index, consistent with combined pre- and post-capillary pulmonary hypertension. Post-procedure, the patient remained hemodynamically [...] Disposition: Discharged home with home health. Pradip Lal MD, Alvin Marshall is advised to follow [...] to Get Your Medications These medications were s (more content not included)...[facility]10-22-2025 NotePhysical Therapy Physical Therapy Treatment Patient Name: Rolando [...] made Communication Intact General Assessment Hearing Mild NEWTOK Skin Integrity Patient had mediplex padding on [...] extremity supported;Left upper extremity supported;With device (RW) Static Standing-Level of Assistance Contact guard [...] at end of session. PT Assessment PT Assessment/SKIN FITTER Summary Pt demos difficulties with STS transitions, [...] 1 assist Treatment/Interventions Functional transfer training;Endurance training;Patient/family training;Bed mobility;Gait training PT Plan Skilled PT PT Frequency 5 times per week Outcome Assessments 6 Clicks (Mobility) Help from another person turning from your back to your side while in a flat bed without using bedr (more content not included)...[facility]10-22-2025 Note Attestation signed by Volodymyr Yuan MD at 09/20/2025 8:31 PM By using the attestations below, the signing clinician agrees that I have read and verify that the documentation has been personally reviewed by me and ensure that the documentation accurately reflects the encounter. GC: I performed the maddox portion(s) of the service and participated in the management and confirm the resident's documentation. Please note there may be an additional personal documentation from me. Cardiology Progress Note Subjective 09/20: Patient seen [...] Patient diagnosed with NSTEMI and transferred to [facility] for further management. Initial labs: K3.4, Mg [...] -- -- -- 09/20/25 0735 137/81 36.7 ???C (98.1 ???F) Temporal 63 17 100 % -- 09/20/25 0700 -- -- -- 60 13 -- -- 09/20/25 0432 -- -- -- -- -- -- 97.2 kg (214 lb 3.2 oz) 09/20/25 0400 124/69 36.6 ???C (97.9 ???F) Temporal 60 10 100 % -- 09/20/25 0030 117/72 -- -- 60 12 100 % -- 09/19/252017 117/71 -- -- 66 -- -- -- 09/19/252014 117/71 -- -- 64 21 97 % -- 09/19/251999 124/79 -- -- 60 16 -- -- 09/19/25 1955 125/75 -- -- 60 14 100 % -- 09/19/25 1930 125/73 -- -- 71 20 100 % -- 09/19/25 1925 130/76 37 ???C (98.6 ???F) Temporal 67 14 100 % -- 09/19/25 [...] 93 % -- 09/19/25 1154 111/76 36.9 ???C (98.5 ???F) Temporal 60 16 97 % -- Physical [...] 172 QT Interval 518 QTC CALCULATION(BAZETT) 518 R-Pine 266 T Wave Pine 81 Impression Atrial fibrillation Ventricular-paced rhythm Biventricular pacemaker detected Abnormal ECG When compared with ECG of 17-SEP-2025 09:35, No significant change was found Confirmed by Parisa Campbell ([id number]) on 09/19/2025 7:59:33 PM No results found for: CKTOTAL , CKMB , CKMBINDEX , TROPO (more content not included)...[facility]10-22-2025 Note09/20/25 0933 Referral Data Referral Source Physician Referral Reason Information Patient Information Primary Caregiver Family Activities of Daily Living Assistive Device Other (Comment) (Has rollator, lift chair, manual wheelchair, tall toilet.) Ambulation Independent Dressing Independent Feeding Independent Behavior Oriented Communication Talks;Understands speaking;Understands Mont[place] Income Information Income Source Unemployed (States he [...] Discussed with pt who is agreeable with plan.[facility]10-21-2025 Note Occupational Therapy Occupational Therapy Evaluation Patient Name: [...] session, staff came to take 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 Patient Summary: Patient is an 89 year old male who presented from [facility] with shortness of breath and was diagnosed [...] cooperative. General Assessment General Assessment Hearing: Mild NEWTOK Skin Integrity: Patient had mediplex padding on [...] Level of Function Prior Function Level of [place]: Needs assistance with ADLs, Needs assistance with homemaking Prior Functional Mobility: Independent with rollator Receives Help From: Family, Home health (CHISEL TRIMMER: 3 hrs/day- 5 days a week, 2 hrs/day-2 days a week, Children check in AM and PM before and after work) ADL Assistance: Needs assistance Bath: Independent Toileting: Independent Dressing: Minimal (Needs assist putting socks on. Wears velcro strap adapted shoes.) Grooming: Independent Feeding: Independent Homemaking Assistance: Needs assistance (Patient 's CHISEL TRIMMER performs most of the homemaking tasks. Family or CHISEL TRIMMER take patient to appointments or to families house.) Meal Prep: Total Laundry: Total Vacuuming: Total Cleaning: Total Gardening: Total Yard Work: (Patient mows the lawn on his riding tool design drafter.) Driving: Independent (Patient walks up to car with rollator but can't load rollator in car. Patient goes for a car drive but does not [...] Bed Mobility 1 Bed Mobility From 1: (more content not included)...[facility]10-21-2025 NotePatient: Rolando Boyd Procedure Information Date/Time: 09/19/25 1530 Procedures: Coronary angiography Right heart cath Location: [facility] DIRECTOR OF CARDIOLOGY SERVICE LINE 3 / [facility] (Cath) Providers: Parisa Campbell MD Clinical information reviewed: Allergies Meds Problems Physical Exam Airway Mallampati: III TM distance: >3 FB Neck ROM: full Cardiovascular Rhythm: regular Rate: normal Dental Pulmonary Breath sounds clear to auscultation Neurological Abdominal Anesthesia Plan ASA 3 other (Conscious sedation.) Anesthetic plan and risks discussed with patient. Use of blood products discussed with patient who consented to blood products. Additional Equipment RequestsUnRegency Hospital Company10-21-2025 Note Physical Therapy Physical Therapy Treatment Patient Name: [...] while in a flat bed without using bed (more content not included)...[facility]10-21-2025 NoteCAD (coronary artery disease) - CAD s/p KISHAN to LAD & RCA in 2012, HFimpEF s/p BiV Pacemaker placement 2017 - Presented to [facility] with a troponin of 10,000 and transferred to [facility] - Troponin 4674, 3682, 3331, 2641 - [...] per protocol, K > 4, Mg > 2UnRegency Hospital Company10-21-2025 Note- Continue singulair.[facility]10-21-2025 Note- Encourage weight loss.[facility]10-21-2025 Note- Patient has not worn CPAP for 2 months. Reports bennie could not find a mask that works for him. - He reports he does not want to wear a CPAP when I offered to consult our pulmonary navigator.[facility]10-21-2025 Note- Continue lipitor 80mg nightly - Lipid panel-total cholesterol is 106, HDL 34, LDL 59, triglycerides 67 [facility]10-21-2025 NotePresence of biventricular cardiac pacemaker - 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 AMBULATORY-P placement, on warfarin - last interrogation done on 09/01/2025 - EKG 09/17 showing ventricular paced rhythm with intrinsic complexes - Coumadin held, heparin discontinued - INR 1.56 todayUnRegency Hospital Company10-21-2025 Note- TTE 09/17/25 with EF of 40% and severe left atrial enlargement - Continue lasix 20 mg daily - Continue coreg 6.25mg po bid - PT/OT to evaluate for discharge planningUnRegency Hospital Company 09-19-2025 NoteHospital Medicine Daily Progress Note - 09/19/2025 11:10 AM; Room: [address] [place] [address] Admission: 09/17/2025 2:26 AM; Length of stay: 2 days THE HOSPITALIST TEAM PREFERS TO USE [employer] CHAT FOR NON-URGENT COMMUNICATION 7AM-7PM. IF I DO NOT RESPOND WITHIN 20 MINUTES OR URGENT MATTERS, PLEASE CALL THROUGH THE CARDIOPULMONARY TECHNICIAN AND EEG TECH. FROM 7PM-7AM, PLEASE PAGE [phone](COVR). Code Status: Full Code Barriers to Discharge: cardiac cath Expected Discharge Date: pending cardiac cath findings Discharge Destination: home Overview Alvin Boyd is an 89 y.o. male with history of HTN, HLD, CAD s/p stent placement, HF s/p BiV pacemaker placement, and COPD presenting from [facility] with SOB and dx with NSTEMI. Patient was transferred from [facility] where he was evaluated because of shortness of breath and some chest discomfort. After investigation patient was noted to have NSTEMI with troponin of over 10,000. He came with no heparinization but was said to be on Coumadin. INR is not noted. On arrival at [facility] bed, patient was lying in bed [...] resting comfortably in bed without increased work of breathing or signs of respiratory distress. He continues to wear supplemental oxygen, currently on 2 liters, maintaining an SpO2 of 100%. Patient reports no home oxygen requirement. He denies any shortness of breath or chest pain at this time. He does complain of cough productive of minimal sputum, but notes history of COPD, and states that this is his chronic cough and is unchanged from baseline. He reports difficulty sitting up in bed today. Family at bedside states that this is a significant change for the patient as he is normally [...] Patient Position: Lying) Pulse 60 Temp 36.6 ???C (97.8 ???F) (Temporal) Resp 17 Intake/Output Summary (Last 24 [...] normal. Estimated body mass index is 32.54 kg/m??? as calculated from the following: Height as of this encounter: 1.727 m (5' 8 ). Weight as of this encounter: 97.1 kg (214 lb). Assessment and Plan Assessment & Plan NSTEMI (non-ST elevated myocardial infarction) ([facility]) CAD (coronary artery disease) - CAD s/p KISHAN to LAD & RCA in 2012, HFimpEF s/p BiV Pacemaker placement 2016 - Presented to [facility] with a troponin of 10,000 and transferred to [facility] - Troponin 4674, 3682, 3331, 2641 - [...] 4, Mg > 2 Chronic atrial fibrillation ([facility]) Presence of biventricular cardiac pacemaker - 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 AMBULATORY-P placement, on warfarin - last interrogation done [...] mask that works for him. - He (more content not included)...[facility]10-21-2025 NoteReadmission Risk Score 12. Zero ED/Inpt admits in the past 6 months. OP Specialty fiscal agent received complex care referral via [employer]. This marketing copywriter reviewed the chart and pt does not meet criteria for Outpatient Specialty/Complex precision lens generator program criteria at this time.[facility]10-21-2025 Note Attestation signed by Nabeel Cramer MD at 09/19/2025 11:59 PM By using the attestations below, the signing [...] personal documentation from me. Nabeel Cramer MD, [facility] Cardiology Progress Note Subjective 09/19: Patient seen [...] obesity who presented as a transfer from [facility] with dyspnea and diagnosis of NSTEMI. Patient was transferred from OSH where he was evaluated with dyspnea and chest discomfort. Troponins were elevated greater than 10,000. Patient diagnosed with NSTEMI and transferred to [facility] for further management. Initial labs: K3.4, Mg [...] Resp SpO2 Weight 09/19/25 0805 145/77 36.6 ???C (97.8 ???F) 60 17 99 % -- 09/19/25 0400 116/77 36.2 ???C (97.2 ???F) Temporal 67 14 100 % -- 09/19/25 0240 -- -- -- -- -- -- 97.1 kg (214 lb) 09/19/25 0005 121/70 -- -- 60 14 100 % -- 09/18/25 2000 111/84 36.6 ???C (97.9 ???F) Temporal 60 18 95 % -- 09/18/25 1700 107/65 -- -- 60 -- -- -- 09/18/25 1605 102/60 36.8 ???C (98.2 ???F) Temporal 60 19 98 % -- 09/18/25 1205 124/83 36.1 ???C (96.9 ???F) Temporal 60 14 98 % -- Physical [...] 188 QT Interval 524 QTC CALCULATION(BAZETT) 518 R-Pine -37 T Wave Pine 76 Impression Ventricular-paced rhythm with intrinsic complexes Biventricular pacemaker detected Abnormal ECG When compared with ECG of 24-SEP-2017 07:23, Vent. rate has decreased BY 7 BPM Confirmed by Volodymyr Yuan ([id number]) on 09/17/2025 10:21:06 AM No results found for: CKTOTAL , CKMB , CKMBINDEX , TROPONINI Complete Echo (TTE) w/wo Imaging Agent, Strain, 3D, Bubble Study Result Date: 09/18/2025 1 1 [facility] Heart Station [address] [place] [address] [phone] (fax) Echocardiogram-[facility] Name: ALVIN BOYD Study Date: 09/18/2025 10:20 AM B/P: 136 mmHg/90 mmHg HR: 123 bpm Date of : 1935 Location: [facility] Height: 68 in. Age: 89 year(s) Patient [...] wall thickness is mildly increased. Right Ventricle: (more content not included)...[facility]10-20-2025 NotePhysical Therapy Physical Therapy Evaluation Patient Name: Rolando [...] an 89 y.o. male who came from [facility] with SOB and dx with NSTEMI. [...] General Assessment General Assessment Hearing: appears somewhat [place] Skin Integrity: observed areas intact. Pt has [...] Level of Function Prior Function Level of [place]: Needs assistance with homemaking, Independent with ADLs and functional transfers Prior Functional Mobility: Independent with rollator Receives Help From: Family, Home health (Pt's children check on him in mornings and evenings (before and after work). Pt has CHISEL TRIMMER for 3 hrs/day on 5 days/week and [...] device, Right upper extremity supported, Left upper extremity supported (RW) Static Standing-Level of Assistance: Close supervision [...] side step towards L, small shuffling steps (more content not included)...[facility]10-20-2025 Note Attestation signed by Jim Lewis MD at 09/18/2025 4:21 PM Mr. Boyd was seen and examined by me today with Dr. Morrison and I agree with his note today. He was transferred from [facility] with acute SOB and troponin >10,000. In addition BNP elevated. We plan R and coronary cath tomorrow however, his INR elevated on warfarin and not coming down. We advise vitamin K 2.5 mg today and reassess in the morning. I have discussed with him the expected risks of the procedure including , bleeding, [place], renal failure, vascular injury etc, and he agrees to proceed. Cardiology Progress Note Subjective 09/18: Patient seen [...] obesity who presented as a transfer from [facility] with dyspnea and diagnosis of NSTEMI. Patient was transferred from OSH where he was evaluated with dyspnea and chest discomfort. Troponins were elevated greater than 10,000. Patient diagnosed with NSTEMI and transferred to [facility] for further management. Initial labs: K3.4, Mg [...] lb 8 oz) 09/18/25 0400 131/86 36 ???C (96.8 ???F) Temporal 60 16 96 % -- 09/18/25 0015 126/74 -- -- 60 20 100 % -- 09/17/25 2045 121/74 36.5 ???C (97.7 ???F) Temporal 60 16 100 % -- 09/17/25 1600 133/72 36.4 ???C (97.6 ???F) Temporal 60 17 96 % -- 09/17/25 1125 118/78 36.6 ???C (97.8 ???F) Temporal 60 20 100 % -- Physical [...] 188 QT Interval 524 QTC CALCULATION(BAZETT) 518 R-Pine -37 T Wave Pine 76 Impression Ventricular-paced rhythm with intrinsic complexes Biventricular pacemaker detected Abnormal ECG When compared with ECG of 24-SEP-2017 07:23, Vent. rate has decreased BY 7 BPM Confirmed by Volodymyr Yuan ([id number]) on 09/17/2025 10:21:06 AM No results [...] decreased BY 7 BPM Confirmed by Volodymyr Yuan ([id number]) on 09/17/2025 10:21:06 AM Overview: 89-year-old [...] greater than 10,000 at OSH, 4674 at [facility]. BNP 1209. Likely true type I NSTEMI in the setting of known CAD. Troponins downtrending (4674 > 3682 > 3331 > 2641) HFrEF, NYHA II-III TTE 09/18: LVEF 40% with mildly increased LV wall thickness. Mildly elevated right-sided pressures. Severely enlarged LA. Mild TR. 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 AMBULATORY-P placement, on warfarin EKG 09/17 showing ventricular paced rhythm with intrinsic complexes CAD with prior PCI x2 Hypertension Hyperlipidemia Obesity Arthritis PLAN Continue heparin GTT Tentatively planning CORS 09/19 (Not performed today due to edda (more content not included)...[facility]10-20-2025 Note-continue singulairUnRegency Hospital Company10-20-2025 Note- echo pending - continue lasix 20mg podaily - continue coreg 6.25mg po bidUnRegency Hospital Company10-20-2025 Note - CAD s/p KISHAN to LAD & RCA in 2012, HFimpEF s/p BiV Pacemaker placement 2016 - presented to [facility] with a troponin of 10,000 and transferred to [facility] - troponin 4674, 3682, 3331, 2641 - cards consulted - on heparin drip, lipitor, coreg - reports he does not take ASA at home, He is not on aspirin due to being on anticoagulation therapy for atrial fibrillation - plan for cardiac cath todayUnRegency Hospital Company10-20-2025 Note- continue lipitor 80mg nightly - will update lipid panelUnRegency Hospital Company10-20-2025 Note- encourage weight lossUnRegency Hospital Company10-20-2025 Note- 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 AMBULATORY-P placement, on warfarin - last interrogation done on 09/01/2025 - EKG 09/17 showing ventricular paced rhythm with intrinsic complexes - coumadin on hold and on a heparin drip - INR 2.19 today, will defer to cardsUnRegency Hospital Company 09-18-2025 Note- patient has not worn CPAP for 2 months. Reports bennie could not find a mask that works for him. - he reports he does not want to wear a CPAP when I offered to consult our pulmonary navigatorUnRegency Hospital Company10-20-2025 NoteHospital Medicine Daily Progress Note - 09/18/2025 7:31 AM; Room: [address] [place] [address] Admission: 09/17/2025 2:26 AM; Length of stay: 1 days THE HOSPITALIST TEAM PREFERS TO USE [employer] CHAT FOR NON-URGENT COMMUNICATION 7AM-7PM. IF I DO NOT RESPOND WITHIN 20 MINUTES OR URGENT MATTERS, PLEASE CALL THROUGH THE CARDIOPULMONARY TECHNICIAN AND EEG TECH. FROM 7PM-7AM, PLEASE PAGE [phone](COVR). Code Status: Full Code Barriers to Discharge: cardiac cath Expected Discharge Date: pending cardiac cath findings Discharge Destination: home Overview Alvin Boyd is an 89 y.o. male who came from [facility] with SOB and dx with NSTEMI. Patient is an 89-year-old gentleman with the following past medical history; hypertension, HLD, CAD with stent, status post pacemaker placement, arthritis, obesity. Patient was transferred from [facility] where he was evaluated because of [...] Patient Position: Lying) Pulse 60 Temp 36 ???C (96.8 ???F) (Temporal) Resp 16 Intake/Output Summary (Last 24 [...] normal. Estimated body mass index is 33.37 kg/m??? as calculated from the following: Height as of this encounter: 1.727 m (5' 8 ). Weight as of this encounter: 99.6 kg (219 lb 8 oz). Assessment and Plan Assessment & Plan NSTEMI (non-ST elevated myocardial infarction) ([facility]) CAD (coronary artery disease) - CAD s/p KISHAN to LAD & RCA in 2012, HFimpEF s/p BiV Pacemaker placement 2017 - presented to [facility] with a troponin of 10,000 and transferred to [facility] - troponin 4674, 3682, 3331, 2641 - cards consulted - on heparin drip, lipitor, coreg - reports he does not take ASA at home, He is not on aspirin due to being on anticoagulation therapy for atrial fibrillation - plan for cardiac cath today Chronic atrial fibrillation ([facility]) Presence of biventricular cardiac pacemaker - 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 AMBULATORY-P placement, on warfarin - last interrogation done [...] heart failure with preserved ejection fraction (HFpEF) ([facility]) - echo pending - continue lasix 20mg podaily - continue coreg 6.25mg po bid Class 1 obesity due to excess calories with serious comorbidity and body mass index (BMI) of 34.0 to 34.9 in adult - encourage weight loss COPD without exacerbation ([facility]) -continue singulair VTE Prophylaxis: IV heparin Scheduled [...] results found for: PREALBUMIN , TSH , (more content not included)...[facility]10-19-2025 NotePatient seen and examined in the morning. Patient presenting from OSH with dyspnea. He denies having had chest pain since admission. Troponin seems to have peaked at 4000s. He was started on heparin drip. Cardiology saw patient and planning cath on 09/18. Carlton Angulo MD HospitalistUnRegency Hospital Company10-19-2025 Note-History of CAD - Currently in the throes of acute NSTEMI - Treat with morphine sulfate - Supplemental oxygen to keep saturation above 96% - Consult cardiology DVT prophylaxis is VTE protocols per [facility] GI protection Protonix Monitor labs correct mellitus Cycle troponin Consult cardiology I discussed the plan of care with the patient that he is in agreementUnRegency Hospital Company10-19-2025 Note-Chronic device/problem. Will continue to monitor and interrogate if need beUnRegency Hospital Company10-19-2025 Note-History of chronic defibrillation patient is on Coumadin at home. - Monitor heart rateUnRegency Hospital Company10-19-2025 Note-Statins [facility]10-19-2025 Note-Weight loss is recommended by virtue of exercise and dietUnRegency Hospital Company10-19-2025 Note- History of CAD - Currently in the throes of acute NSTEMI - Treat with morphine sulfate - Supplemental oxygen to keep saturation above 96% - Consult cardiologyUnRegency Hospital Company10-19-2025 NoteHospital Medicine History and Physical 09/17/2025 2:53 AM THE HOSPITALIST TEAM PREFERS TO USE [employer] CHAT FOR NON-URGENT COMMUNICATION 7AM-7PM. IF I DO NOT RESPOND WITHIN 20 MINUTES OR URGENT MATTERS, PLEASE CALL THROUGH THE CARDIOPULMONARY TECHNICIAN AND EEG TECH. FROM 7PM-7AM, PLEASE PAGE [phone](COVR). Chief Complaint No chief complaint on file. History of Present Illness Alvin Boyd is an 89 y.o. male who came from [facility] with SOB and dx with NSTEMI. Patient is an 89-year-old gentleman with the following past medical history; hypertension, HLD, CAD with stent, status post pacemaker placement, arthritis, obesity. Patient was transferred from [facility] where he was evaluated because of shortness of breath and some chest discomfort. After investigation patient was noted to have NSTEMI with troponin of over 10,000. She came with no heparinization but was said to be on Coumadin INR is not noted. We are going to start patient on heparin On arrival at [facility] bed he was lying in absolutely [...] of System and Physical Exam Temp: [36.9 ???C (98.4 ???F)] 36.9 ???C (98.4 ???F) Heart Rate: [60] 60 Resp: [18] 18 [...] Assessment and Plan 89-year-old gentleman transferred from [facility] with NSTEMI. Patient is being commenced on heparin and monitor enzymes and consult cardiology Assessment & Plan CAD (coronary artery disease) -History of CAD - Currently in the throes of acute NSTEMI - Treat with morphine sulfate - Supplemental oxygen to keep saturation above 96% - Consult cardiology Chronic atrial fibrillation ([facility]/HCC) -History of chronic defibrillation patient is on Coumadin at home. - Monitor heart rate Presence of biventricular cardiac pacemaker -Chronic device/problem. Will continue to monitor and interrogate if need be Hyperlipidemia -Statins Morbid obesity with BMI of 40.0-44.9, adult (CMS/HCC) -Weight loss is recommended by virtue of exercise and diet NSTEMI (non-ST elevated myocardial infarction) ([facility]) -History of CAD - Currently in the throes of acute NSTEMI - Treat with morphine sulfate - Supplemental oxygen to keep saturation above 96% - Consult cardiology DVT prophylaxis is VTE protocols per [facility] GI protection Protonix Monitor labs correct [...] for individual hospital problems. Home medications are review (more content not included)...[facility]07-21-2025 NoteUT Cardiology - [facility] Subjective Alvin Boyd is a 89 y.o. year old male patient being seen for 1 year follow up pace had pacer check recently. 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 Do not repe (more content not included)...[facility]06-18-2025 History of Present illness Narrative* Amy Daily, DP - 05/17/2025 9:30 AM EDT Images from the original note [...] comorbidities. Polypharmacy. ASA therapy. Flexibility, mobility and dexterityrestraints. toenail deformity. Shoe and/or digital trauma and [...] the morning and 12.5 mg in the evening.Take with meals., Disp: , Rfl: cholecalciferol (Vitamin D-3) 25 MCG (1000 UT) capsule, Take 1,000 Units by mouth Daily, Disp: , Rfl: DULoxetine (Cymbalta) [address] capsule, Take 30 mg by mouth, Disp: , Rfl: ferrous sulfate 325 (65 Fe) MG tablet, Take 325 mg by mouth in the morning. Take with meals., Disp:, Rfl: furosemide (Lasix) 20 MG tablet, Take [...] by mouth in the morning and 1 tabletbefore bedtime., Disp: , Rfl: sucralfate (Carafate) 1 [...] degrees of toenail dystrophy, discoloration, elongation, clubbing andclinical mycosis. INGROWN NAIL PATHOLOGY: Bilateral great toes [...] understanding. Amy Daily DPM documented in this encounterEllis Fischel Cancer [id number] History of Present illness Narrative* Amy Daily DPM - 01/25/2025 9:30 AM EST Images from the original note were not [...] the morning and 12.5 mg in the evening.Take with meals., Disp: , Rfl: cholecalciferol (Vitamin D-3) 25 MCG (1000 UT) capsule, Take 1,000 Units by mouth Daily, Disp: , Rfl: DULoxetine (Cymbalta) [address] capsule, Take 30 mg by mouth, Disp: , Rfl: ferrous sulfate 325 (65 Fe) MG tablet, Take 325 mg by mouth in the morning. Take with meals., Disp:, Rfl: furosemide (Lasix) 20 MG tablet, Take [...] by mouth in the morning and 1 tabletbefore bedtime., Disp: , Rfl: sucralfate (Carafate) 1 [...] thickening, distal margins are incurvated/cryptotic, keratotic, mildly tender,without drainage. All remaining digits: Varying degrees of toenail dystrophy, discoloration, elongation, clubbing andclinical mycosis. INGROWN NAIL PATHOLOGY: Bilateral great toes [...] understanding. Amy Daily DPM documented in this [facility]02-26-2025 Instructions* Patient Instructions* Amy Daily DPM - 01/25/2025 9:30 AM EST As noted documented in this [facility]11-20-2024 History of Present illness Narrative* Amy Daily, [facility] - 10/19/2024 9:15 AM EST Images from the original note were not [...] thickening, distal margins are incurvated/cryptotic, keratotic, mildly tender,without drainage. All remaining digits: Varying degrees of toenail dystrophy, discoloration, elongation, clubbing andclinical mycosis. INGROWN NAIL PATHOLOGY: Bilateral great toes [...] understanding. Amy Daily DPM [facility]* Diagnosis Dermatophytosis of nail- Primary Dystrophic nail Other specified disease of nail Pain around toenail, right foot Pain around toenail, left foot documented in this encounter [facility] HealthcareEvaluation noteNo assessment information availablePremier Health [facility] Work Phone: Evaluation note* Diagnosis Dermatophytosis of nail- Primary Dystrophic nail Other specified disease of nail Pain around toenail, right foot Pain around toenail, left foot documented in this encounter [facility] HealthcareEvaluation note* Diagnosis Dermatophytosis of nail- Primary Dystrophic nail Other specified disease of nail Pain around toenail, right foot Pain around toenail, left foot documented in this encounter [facility] Healthcare Summary Purpose Family History No Family [...] section and content) DATE CREATED AUTHOR 05/19/2018 [facility] DATE CREATED AUTHOR AUTHOR'S ORGANIZ ATION 06/19/2020 [facility] DATE CREATED AUTHOR AUTHOR'S ORGANIZ ATION 05/08/2023 [facility] DATE CREATED AUTHOR AUTHOR'S ORGANIZ ATION 12/09/2024 [facility] DATE CREATED AUTHOR AUTHOR'S ORGANIZ ATION 05/20/2025 [facility] EPIC DATE CREATED AUTHOR AUTHOR'S ORGANIZ ATION 09/23/2025 [facility] Care Teams (unrecognized sec tion and content) Team MemberRelationshipSpecialtyStart DateEnd Date Rio Lal MD [address] [facility] [place] [address] PCP - GeneralInternal Medicine07/29/23Team MemberRelationshipSpecialtyStart Date End Date Rio Lal MD [address] [place] [address] PCP - GeneralInternal Medicine07/29/23 Team Status: Inactive Member Role Status Dates Jose Amado MD Attending Provider Active Sta rt: November 30, 2024 End: November 30, 2024Team MemberRelationshipSpecialtyStart DateEnd Date Rio Lal MD [address] [place] [address] PCP - GeneralInternal Medicine07/29/23Team MemberRelationshipSpecialtyStart Date End Date Rio Lal MD [address] [place] [address] PCP - GeneralInternal Medicine07/29/23Team MemberRelationshipSpecialtyStart Date End Date Rio Lal MD [address] [place] [address] PCP - GeneralInternal Medicine07/29/23 Reason for Visit (unrecogniz ed section and content) ReasonCommentsToenail CareReasonCommentsToenail CarePt is here today requesting nail care, he [...] BE BASED ON THE PRIMARY CLINICAL RECORDS. [facility] [employer], [facility]. provides no warranty or guarantee of the accuracy or completeness of information in this document.
--- NOTE | 2025-09-28 13:31 | XR_ITS ---
The [address] [address] Patient Name: ALVIN BOYD MRN: [id number] date: 1935 Sex: M Assigned Patient Location: LAB Current Patient Location: LAB Accession/Order Number: [id number] Exam Date: 09/28/2025 13:20 Report Date: 09/28/2025 15:08 At the request of: DOUG GIBSON APRN Procedure: XR chest 2V PA AND LATERAL CHEST: CLINICAL HISTORY: Dyspnea On Exertion COMPARISON: 09/16/2025 FINDINGS: Left-sided pacemaker device. Cardiomegaly with perihilar pulmonary vasculature. Bibasilar airspace disease likely atelectasis and interstitial edema and small effusions. No pneumothorax. XR/XR chest 2V IMPRESSION: CHF findings with small effusions and bibasilar atelectasis. Impression dictated by: Pedro Roberson M.D. 09/28/2025 3:08 PM Dictation Location: [place] [address] Electronically authenticated by: [id number] Y Date: 09/28/2025 15:08
[2025-09-28 13:34] LABS: Hematocrit 38.0 % (42.0-54.0); Hemoglobin 12.0 g/dL (14.0-18.0); Immature Granulocytes Abs Auto 0.04 10^3/uL (0.00-0.03); Immature Granulocytes Pct Auto 0.4 % (0.0-0.5); Lymphocytes Absolute Auto 1.5 10^3/uL (1.2-3.8); Mean Corpuscular HGB Conc 31.6 g/dL (29.9-35.2); Mean Corpuscular Hemoglobin 31.0 pg (25.9-34.0); Mean Corpuscular Volume 98.2 fL (80.0-94.0); Platelet Count 240 10^3/uL (150-450); Red Blood Count 3.87 10^6/uL (4.70-6.10); White Blood Count 9.5 10^3/uL (4.0-11.0)
[2025-09-28 13:47] LABS: Alanine Aminotransferase 18 U/L (16-63); Albumin Globulin Ratio 1.2; Albumin Level 3.8 g/dL (3.4-5.0); Alkaline Phosphatase 85 U/L (46-116); Anion Gap 15.6; Aspartate Amino Transferase 9 U/L (15-37); Blood Urea Nitrogen 21.0 mg/dL (7.0-18.0); Calcium 9.4 mg/dL (8.5-10.1); Carbon Dioxide 24.0 mmol/L (21.0-32.0); Chloride 104 mmol/L (98-107); Estimated GFR (African America >60 (>=60 mL/min/1.73m^2); Estimated GFR (Non-African Ame >60 (>=60 mL/min/1.73m^2); Globulin 3.1 g/dL; Glucose 126 mg/dL (74-106); Potassium 4.6 mmol/L (3.5-5.1); Sodium 139 mmol/L (136-145); Total Protein 6.9 g/dL (6.4-8.2)
[2025-09-28 14:04] LABS: NT Pro B Type Natriuretic Pept 10377.0 pg/mL (<=1800.0)
== END 2025-09-28 13:06 | disposition home or self-care (01) ==
PROVIDERS: PCP Internal Medicine; Visit Provider Nurse Practitioner Family
DX: R06.09 Other forms of dyspnea (principal); I50.9 Heart failure, unspecified
CPT/HCPCS: 36415; 71046; 80053; 83880; 85025

== ENCOUNTER 2025-09-30 | Outpatient (RCR) | payer MEDICARE, SELFPAY | END 2025-10-29 23:59 | disposition home or self-care (01) | LOC: MM | PROVIDERS: PCP Internal Medicine; Visit Provider Internal Medicine | DX: Z51.81 Encounter for therapeutic drug level monitoring (principal); Z79.01 Long term (current) use of anticoagulants; I48.91 Unspecified atrial fibrillation | CPT/HCPCS: 85610; G0463 ==

== ENCOUNTER 2025-10-05 08:18 | Outpatient (OUT) | payer MEDICARE, SELFPAY ==
--- OUTSIDE RECORDS SUMMARY | 2025-10-05 08:27 | XMS_ITS | CCD ---
Author Organization [facility] Care Team Providers Care Asw Specialist Name Role Phone AUXIER, KENDRA SASHA [...] Unavailabl e MORLEY, LEXI MILKA Unavailable Unavailable Dodge, Kendra Sasha~CTP.20004 Unavailable Unavailable ValoneRio Marshall Unavailable Unavailabl e Valone, Rio Marshall Unavailable Unavailabl e Arsalan Leija Unavailable Unavailable VALONERIO MARSHALL Unavailable Unavailabl e MORLEY, LEXI MILKA Unavailable Unavailable Rio Lal Unavailable Unavailmarquise e RIO LAL Referring Unavailable RIO LAL Primary Care Unavailable YUE ANTONIO Attending Unavailable YUE ANTONIO Admitting Unavailable GERBER PETER Admitting Unavailable GERBER [...] Care Provider Jose Amado MD Attending Provider [phone] Jose Amado Attending Unavailable Jose Amado Admitting Unavailable RUSHER, AMY Wetzel Attending Unavailable RUSHER, AMY Wetzel Attending Unavailable RUS, AMY Wetzel Attending Unavailable RUS, AMY Wetzel Attending Unavailable VOLODYMYR YUAN Referring Unavailable VOLODYMYR YUAN Referring Unavailable ADELUISA Referring Unavailable MOUKAPARISA BREAUX Referring Unavailable LUNA KIMBLE Referring Unavailable LUNA KIMBLE Referring Unavailable VOLODYMYR YUAN Referring Unavailable ADE, LUISA Referring Unavailable ADE, LUISA Referring Unavailable VOLODYMYR YUAN Referring Unavailable VOLODYMYR YUAN Referring Unavailable VOLODYMYR YUAN Referring Unavailable MOUKAPRISCILAPARISA REES Attending Unavailable VOLODYMYR YUAN Referring Unavailable DOUG HURLEY Attending Unavailable VOLODYMYR YUAN Referring Unavailable NAEEM LOMELI Referring Unavailable JESE MICHEL Admitting Unavailable KINGS PITTS Attending Unavailable Allergies Allergy ClassificationReported Allergen(s)Allergy TypeDate of OnsetReaction(s) Facility (1 source)03243,00; Translations: [Unknown]Propensity to adverse reactions (disorder)40-93-6585Zon [facility] Repository Medications Current Medications MedicationDrug Class(es)DatesSig [...] 20 mg oral tablet (3 sources)Loop DiureticStart: 61-08-9576wkjx 1 tablet by mouth once daily furosemide (Lasix) 20 MG tablet Take 20 mg by mouth Daily 01/01/2025 Active hydrALAZINE hydrochloride 10 mg oral tablet (6 sources)Arteriolar VasodilatorhydrALAZINE (Apresoline) 10 MG tablet 10 mg in the morning and 10 mg at noon and 10 mg in the evening and 10 mg before bedtime. ActivehydroCHLOROthiazide 12.5 mg oral tablet (6 sources)Thiazide DiureticStart: 53-07-8449xdowwTXQAKAgxsuolwb (HYDRODiuril) 12.5 MG tablet 12.5 mg 10/03/2023 Activelosartan potassium 25 mg oral tablet (6 sources)Angiotensin 2 Receptor Blockerlosartan (Cozaar) 25 MG tablet 25 mg 1 (one) time each day at the same time Activemontelukast 10 mg oral tablet (6 sources)Leukotriene Receptor AntagonistStart: 75-48-7811ffiuexxcssh (Singulair) 10 MG tablet 09/12/2023 ActiveMultiple Vitamins-Minerals (EYE VITAMINS PO) (3 sources)Multiple Vitamins-Minerals (EYE VITAMINS PO) Take by mouth Active omeprazole 40 mg delayed release oral capsule (6 sources)Proton Pump InhibitorStart: 64-71-1864fcwunsyzlg (PriLOSEC) [address] capsule 40 mg 09/16/2023 Activeondansetron 4 mg oral tablet (6 sources)Serotonin-3 Receptor AntagonistStart: 16-25-9600kfwbztspnwp (Zofran) 4 MG tablet 10/29/2023 Activemicroencapsulated potassium chloride 20 meq extended release oral tablet (3 sources)Start: 65-27-8666mxbycbfxd chloride CR (Klor-Con M20) 20 MEQ ER tablet Take 20 mEq by mouth Daily 12/08/2024 Activesacubitril 49 mg / valsartan 51 mg oral tablet (3 sources)Angiotensin 2 Receptor Blockertake 1 tablet by mouth in the morning sacubitril-valsartan (Entresto) 49-51 MG tablet Take 1 tablet by mouth in the morning and 1 tablet before bedtime. Activesucralfate 1000 mg oral tablet (3 sources)Aluminum ComplexStart: 12-78-5905jdgehoabkc (Carafate) 1 g tablet 1 g 01/05/2025 Activewarfarin sodium 4 mg oral tablet (6 sources)Vitamin K AntagonistStart: 06-87-8667Gyaeufta 4 MG tablet 4 mg 10/03/2023 Active Problems Active Problems Problem ClassificationProblemDateDocumented DateEpisodic/ChronicAcute myocardial infarction (2 sources)Non-ST elevation (NSTEMI) myocardial infarction; Translations: [Non- ST elevation (NSTEMI) myocardial infarction]Onset: 43-90-7935LktrkgoRbexrza dysrhythmias (5 sources)Unspecified atrial fibrillation; Translations: [UNSPECIFIED ATRIAL FIBRILLATION]Onset: 20-40-0148OtkembeOdspbqa kidney disease (1 source)Chronic kidney disease; 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]Onset: 90-76-7519Cnovadobnx disorders (6 sources)Presence of cardiac pacemaker; Translations: [Encounter for adjustment and management of automatic implantable cardiac defibrillator]Onset: 35-14-4150JtedmwhXcfgokfgje heart failure; nonhypertensive (7 sources)Heart failure, unspecified; Translations: [Chronic diastolic (congestive) heart failure]Onset: 32-30-5271IjndjsyKbxxbhmh atherosclerosis and other heart disease (4 sources)Old myocardial infarction; Translations: [Atherosclerotic heart disease of 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]Onset: 10-29-2022 ChronicCoronary atherosclerosis and other heart disease (3 sources)Presence of coronary angioplasty implant and graft; Translations: [PRESENCE COR ANGPLSTY IMPLANT AND GRAFT]Onset: 17-05-3495OhanephnBuchoyrud of lipid metabolism (1 source)Pure hypercholesterolemia, unspecified; Translations: [PURE HYPERCHOLESTEROLEMIA UNSPEC]Onset: 03-44-8315YyuzajoWaqqrgomna disorders (1 source)Gastro-esophageal reflux disease without esophagitis; Translations: [GERD WITHOUT ESOPHAGITIS]Onset: 15-64-7275ZsuuhbzKbuipxjjk hypertension (2 sources)Essential (primary) hypertension; Translations: [Essential (primary) hypertension]Onset: 11-95-5889AskofnkXbfzs valve disorders (2 sources)Nonrheumatic tricuspid (valve) insufficiency; Translations: [Nonrheumatic tricuspid (valve) insufficiency]Onset: 23-03-4556Ddscgeu Hypertension with complications and secondary hypertension (1 source)Hypertensive heart disease with heart failure; Translations: [HTN HEART DISEASE W/HEART FAIL]Onset: 42-88-0977RwmnabdBuupaza (3 sources)Onychomycosis due to dermatophyte ; Translations: [Tinea unguium] 77-00-0673RlgnegxmKiotibqxkuc deficiencies (1 source)Vitamin D deficiency, unspecified; Translations: [VITAMIN D DEFICIENCY UNSPECIFIED]Onset: 60-13-0572RgqubbdSwxxb aftercare (5 sources)Encounter for therapeutic drug level monitoring; Translations: [ENC THERAPEUTC DRUG LEVL MONITORING]Onset: 04-69-4893NuepldamZxxnh aftercare (1 source)playground director (current) use of anticoagulants; Translations: [PUBLIC RELATIONS SPECIALIST CURRNT USE ANTICOAGULANTS]Onset: 94-42-2490RzlgtexfVxape connective tissue disease (1 source)Presence of artificial hip joint, bilateral; Translations: [PRESENCE ARTIFICIAL HIP JOINT BILAT]Onset: 72-11-0185FacvzkeYlrri connective tissue disease (6 sources)Pain in toe; Translations: [Pain in right toe(s)]31-22-0192Ubllevyj Other lower respiratory disease (2 sources)Other forms of dyspnea; Translations: [Other forms of dyspnea]Onset: 69-08-8065MpaoaeulScijm nutritional; endocrine; and metabolic disorders (1 source)Morbid (severe) obesity due to excess calories; Translations: [MORBID SEVERE OBES D/T EXCESS LORENA]Onset: 22-30-0575LogayxjBppgx nutritional; endocrine; and metabolic disorders (1 source)Body mass index (BMI) 34.0-34.9, adult; Translations: [BODY MASS INDEX BMI 34.0-34.9 ADULT]Onset: 93-06-9698UspaemaLjmkn skin disorders (3 sources)Dystrophia unguium; Translations: [Nail dystrophy]62-76-7027Xvltxguc Residual codes; unclassified (1 source)Sleep apnea, unspecified; Translations: [SLEEP APNEA UNSPECIFIED] Onset: 38-40-4650KlocgbzNizozzrbjviq (2 sources)Chronic atrial fibrillation, unspecified; Translations: [Chronic atrial fibrillation, unspecified]Onset: 38-12-9248Dfmqllddiorl (2 sources)Permanent atrial fibrillation; Translations: [Permanent atrial fibrillation]Onset: 06-19-2025 Past or Other Problems Problem ClassificationProblemDateDocumented DateEpisodic/ChronicAbdominal pain (4 sources)Unspecified abdominal pain; Translations: [UNSPECIFIED ABDOMINAL PAIN]Onset: 80-97-2607ZxbgqbdgSfdgtwdmlg and other anemia (1 source)Iron deficiency anemia, unspecified; Translations: [IRON DEFICIENCY ANEMIA UNSPECIFIED]Onset: 23-30-2185SykgasurBzvfwxcr mellitus without complication (1 source)Other abnormal glucose; Translations: [OTHER ABNORMAL GLUCOSE]Onset: 83-61-9016VgxkuknjUqlmn and electrolyte disorders (1 source)Dehydration; Translations: [DEHYDRATION]Onset: 99-81-0810Zolyuncb Nausea and vomiting (1 source)Nausea; Translations: [NAUSEA]Onset: 27-74-2001MtwnwrprXllcdnlmwcxvr gastroenteritis (1 source)Noninfective gastroenteritis and colitis, unspecified; Translations: [NONINFECTIVE GE AND COLITIS UNS]Onset: 89-61-1362MgmxljlyAhmhs aftercare (1 source)Other exam proctor (current) drug therapy; Translations: [OT PUBLIC RELATIONS SPECIALIST CURRENT DRUG THERAPY]Onset: 91-02-6146FtfabbqrGawgc aftercare (1 source)playground director (current) use of aspirin; Translations: [NURSING HOME CURRENT USE OF ASPIRIN]Onset: 75-89-2760AnvyhmpaJxhhfjrqe; thrombophlebitis and thromboembolism (1 source)Personal history of other venous thrombosis and embolism; Translations: [PERS HX OTH VENOUS THROMBOSIS AND EMBO]Onset: 00-94-1626Bppvfexj Pulmonary heart disease (1 source)Personal history of pulmonary embolism; Translations: [PERSONAL HISTORY PULMONARY EMBOLISM]Onset: 42-58-8664FtbtyanpVtdrswlav and history of mental health and substance abuse codes (1 source)Personal history of nicotine dependence; Translations: [PERSONAL HISTORY OF NICOTINE DEPEND]Onset: 22-60-9837Znyvgaqz Results Test NameValueInterpretationReference RangeFacilityOffice Visiton 09-28-2025 Follow-up [id number] Alvin Boyd 1935 M Date Provider Department Center 09/28/2025 166-DOUG [facility] CARD Sally Hos Family History Family Status - Relation Status Age at Mother Father Level of Service:28759 MO OFFICE/OUTPATIENT ESTABLISHED MOD MDM 30 MIN Reason for Visit and Comments: Follow-up [023024] - Patient is here today for a follow up [facility] admission S/P NSTEMI Coronary Artery Disease [187] Congestive Heart Failure [127] Hypertension [347609] DVT [Other] Atrial Fibrillation [80] Cardiomyopathy [104] 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 Fatigue [46] - [facility]30on 97-72-085538Nnyer Case Management Update Multidisciplinary rounds have been completed. Barriers to Discharge: Patient is medically ready for hospital discharge at this time. AVS has been completed, and primary RN has been notified of patients discharge readiness. Patient will discharge to home and will arrange for daughter to provide discharge transportation. No further OTM needs identified at this time. [facility] will continue to follow patient and assist with any further discharge related needs. Diet: Dietary Orders (From admission, onward) Start Ordered 09/19/251854 Regular Diet Heart Healthy/HTN, CABG,Stroke, (2gNA, low fat, low cholesterol) Diet effective now Question Answer Comment Room Service? Yes Fat restriction: Heart Healthy/HTN, CABG,Stroke, (2gNA, low fat, low cholesterol) 09/19/25 1854 09/18/25 1310 Special Kitchen Request Once Comments: [place] burger only mustard, caffeine-free coke, sprite 09/18/25 [...] Reason for OT? Answer: Eval and treat. 09/17/25301[facility]30The patient is Moderately Stable - Low [...] The clinical goals for the shift include VSSNormalUniversChildren's Hospital for RehabilitationBASIC METABOLIC PANELon 59-43-6851Uztkg gap [Moles/Vol]11 mmol/LNormal7-[address] [facility] HospitalComment on above:Performed By: #### [id number] #### [facility] ([facility]) [address] [place] [address]Dxmaeaw [Mass/Vol]8.8 mg/dLNormal8.6-10.3UnMercy Health Lorain HospitalComment on above:Performed By: #### [id number] #### [facility] ([facility]) [address] [place] [address]Adclsqzk [Moles/Vol]108 mmol/DZeca35-066LowhhbbgdwMercy Health Lorain HospitalComment on above:Performed By: #### [id number] #### [facility] ([facility]) [address] [place] [address]RS5 [Moles/Vol]21 mmol/ZPvodrq98-34AsyapiogluMercy Health Lorain HospitalComment on above:Performed By: #### [id number] #### [facility] ([facility]) [address] [place] [address]Ccszcxwwtu [Mass/Vol]0.85 mg/dLNormal0.70-1.30UnMercy Health Lorain HospitalComment on above:Performed By: #### [id number] #### [facility] ([facility]) [address] [place] [address]QUJMAARAUF FILTRATION RATE ML/MIN/1.73 SQ M.JTFNUVXOQ47.6 mL/min/1.73m*2Normal>60.0UnMercy Health Lorain HospitalComment on above: Result Comment: [facility]???s estimated glomerular filtration rate (eGFR) will [...] anyone group of individuals.Performed By: #### [id number] #### [facility] ([facility]) [address] [place], [place] [address]Andebkk [Mass/Vol]108 mg/aDBiwf38-577FjwpvoktdnMercy Health Lorain HospitalComment on above:Performed By: #### [id number] #### [facility] ([facility]) [address] [place], [place] [address]Sqpgjqmhn [Moles/Vol]3.4 mmol/LLow3.5-5.1UnMercy Health Lorain HospitalComment on above:Performed By: #### [id number] #### [facility] ([facility]) [address] [place] [place], [place] [address]Yudhwn [Moles/Vol]137 mmol/HQmjrna145-311KgkbcktwxlMercy Health Lorain HospitalComment on above:Performed By: #### [id number] #### [facility] ([facility]) [address] [place], [place] [address]Gudf nitrogen [Mass/Vol]28 mg/dLHigh7-25UnMercy Health Lorain HospitalComment on above:Performed By: #### [id number] #### [facility] ([facility]) [address] [place], [place] [address]BDRL NITROGEN/CREATININE (MASS RATIO) IN SER/PLAS32.9Normal [facility] HospitalComment on above:Performed By: #### [id number] #### [facility] ([facility]) [address] [place], [place] [address]HQQii 10-13-4620Nhzlujfyemh distribution width (RBC) [Ratio]13.2 %Zttjij46.5-15.0UnMercy Health Lorain HospitalComment on above:Performed By: #### [id number] ####[facility] ([facility])[address] [place] [address] ERYTHROCYTE MEAN CORPUSCULAR HEMOGLOBIN CONCENTRATION (G/DL) BY LBUUSGYII44.5 g/gGBsepvk64.0-35.0UnMercy Health Lorain HospitalComment on above:Performed By: #### [id number] ####[facility] ([facility])[address] [place] [address]Tglrboitko (Bld) [Volume fraction]32.0 %Low39.0-50.0[facility] Anne HospitalComment on above:Performed By: #### [id number] ####[facility] ([facility])[address] [place] [address]Eadqpupldr (Bld) [Mass/Vol]10.4 g/dL Low13.0-17.0UnMercy Health Lorain HospitalComment on above:Performed By: #### [id number] ####[facility] ([facility])[address] [place] [address]VTT (RBC) [Entitic mass]30.9 omCjgwww89.0-33.0UnMercy Health Lorain Hospital Comment on above:Performed By: #### [id number] ####[facility] ([facility])[address] [place] [address]YAC (RBC) [Entitic vol]95.0 hPYhtrql44.0-98.[address] [facility] HospitalComment on above:Performed By: #### [id number] ####[facility] ([facility])[address] [place] [address]YRRQLMBPJ (10*3/UL) IN BLOOD AUTOMATED PMZLX686 10*3/uUBrblcp198-103OrrwajmgnbMercy Health Lorain HospitalComment on above:Performed By: #### [id number] ####[facility] ([facility])[address] [place] [address]ODG (Bld) [#/Vol]3.37 10*6/uLLow 4.20-5.70UnMercy Health Lorain HospitalComment on above:Performed By: #### [id number] ####[facility] ([facility])[address] [place] [address]OVY (Bld) [#/Vol]8.09 10*3/uLNormal4.00-10.60UnMercy Health Lorain HospitalComment on above:Performed By: #### [id number] ####[facility] (BEAKER)[address] [place] [address]PYZWLZXZIpl 46-67-3445Obuzkwysb [Mass/Vol]1.8 mg/dLLow1.9-2.[address] [facility] HospitalComment on above:Performed By: #### [id number] #### [facility] ([facility]) [address] [address]do 96-73-502207Yvp patient is Moderately Stable - Low risk [...] and behaviors that affect risk of falls [place] fall precautions as indicated by assessment Educate [...] are exacerbated and prevent overall improvement and dischargeNormalUniversChildren's Hospital for RehabilitationANTI-XA (HEPARIN LEVEL)on 80-05-9954ADHRVBR UNFRACTIONATED (U/ML) IN PPP BY CHROMOGENIC METHOD<0.10Invalid Interpretation Code0.3-0.[address] [facility] HospitalComment on above:Order Comment: Check anti-Xa level every 6 hours while on heparin infusion, or per protocol.Result Comment: Rivaroxaban and Apixaban will interfere with the anti Xa assay used to monitor UFH and LMWH.Performed By: #### [id number] ####[facility] apstrata)[address] [place], [place] [address]FSOHFLD UNFRACTIONATED (U/ML) IN PPP BY CHROMOGENIC METHOD<0.10Invalid Interpretation Code0.3-0.7UnMercy Health Lorain HospitalComment on above:Order Comment: Check anti-Xa level every 6 hours while on heparin infusion, or per protocol.Result Comment: Rivaroxaban and Apixaban will interfere with the anti Xa assay used to monitor UFH and LMWH.Performed By: #### [id number] ####[facility] ([employer])[address] [place] [address] BASIC METABOLIC PANELon 25-76-8031Fagsi gap [Moles/Vol]11 mmol/LNormal7-[address] [facility] HospitalComment on above:Performed By: #### [id number] ####[facility] ([employer])[address] [place], [place] [address]Ixjnlea [Mass/Vol]8.9 mg/dLNormal8.6-10.3UnMercy Health Lorain HospitalComment on above:Performed By: #### [id number] ####[facility] ([facility])[address] [facility] [place] [place] [address]Kfljaepz [Moles/Vol]108 mmol/ZRuqc34-986NytitmstxfMercy Health Lorain HospitalComment on above:Performed By: #### [id number] ####[facility] ([facility])[address] [place] [address]YL1 [Moles/Vol]21 mmol/BYrmaqq58-[address] [facility] HospitalComment on above:Performed By: #### [id number] ####[facility] ([facility])[address] [place] [address]Vnhzwjfwlb [Mass/Vol]0.94 mg/dLNormal0.70-1.30UnMercy Health Lorain HospitalComment on above:Performed By: #### [id number] ####[facility] ([facility])[address] [place] [address]ATIZWFOJRN FILTRATION RATE ML/MIN/1.73 SQ M.WBRNGTBCF65.0 mL/min/1.73m*2Normal>60.0UnMercy Health Lorain HospitalComment on above: Result Comment: [facility]???s estimated glomerular filtration rate (eGFR) will [...] anyone group of individuals.Performed By: #### [id number] ####[facility] ([facility])[address] [place] [address]Jtviakl [Mass/Vol]116 mg/sKEauo78-560XlqajklelsMercy Health Lorain HospitalComment on above:Performed By: #### [id number] ####[facility] ([facility])[address] [place] [address]Aauligsol [Moles/Vol]3.4 mmol/L Low3.5-5.1UnMercy Health Lorain HospitalComment on above:Performed By: #### [id number] ####[facility] ([facility])[address] [place] [address]Varjal [Moles/Vol]137 mmol/DElgqub350-410TwmnbghctjMercy Health Lorain HospitalComment on above:Performed By: #### [id number] ####[facility] ([facility])[address] [place] [address]Wbdh nitrogen [Mass/Vol]28 mg/dLHigh7-25UnMercy Health Lorain HospitalComment on above:Performed By: #### [id number] ####[facility] ([facility])[address] [place] [address]GQVI NITROGEN/CREATININE (MASS RATIO) IN SER/PLAS29.8NormalUniversChildren's Hospital for RehabilitationComment on above: Performed By: #### [id number] ####[facility] ([facility])[address] [place] [address]OSey 12-04-9063CIA&P reviewed. The patient was examined and there are no changes to the H&P. I will proceed with cardiac catheterization with left heart catheterization and coronary angiography given NSTEMI. I have explained to him the procedure with risks and benefits, including risks of heart attack, stroke and , as well as contrast nephropathy and radiation injury. he understands and agrees.Normal [facility] HospitalMAGNESIUMon 36-07-4523Qryhfvrsr [Mass/Vol]1.9 mg/dLNormal1.9-2.7UnMercy Health Lorain HospitalComment on above:Performed By: #### [id number] ####[facility] ([facility])[address] [place] [address]PYWEXYXSdp 21-72-2128YZBWIHVPDyawyop report given to MARYAN Pereira from MARYAN Fernandez. laborer operator RN presented site to bedside RN. Bedside RN visualized site and palpated site to ensure there was no hematoma or bruising, and femoral site appears flat. Both bedside RN and mini lab operator RN mutually agreed that the site presents normal. laborer operator RN and bedside RN either palpated or used a doppler to assess pulses on the patient.NormalUnMercy Health Lorain HospitalNURSNOTEReport given to MARYAN Pereira from Rebecca STEINBERG Any medications or safety alerts were reviewed. Any pending diagnostics and notifications were also reviewed, as well as any safety concerns or issues, abnormal labs, abnormal imagining, and abnormal assessment findings. Questions were answered.NormalUnMercy Health Lorain HospitalPOTASSIUMon 09-19-2025 Potassium [Moles/Vol]4.0 mmol/LNormal3.5-5.1UnMercy Health Lorain Hospital Comment on above:Performed By: #### [id number] ####[facility] (PRETTY)[address] [place], [place] [address]SOJIQXI-MCTiy 37-11-9098BVM IN PPP BY COAGULATION ASSAY1.74Lyvl3.90-1.10UnMercy Health Lorain HospitalComment on above:Result Comment: ACCCP RECOMMENDED INR FOR [...] OPTIMAL THERAPEUTIC RANGE. CHEST 1995;108:231S-246S.Performed By: #### [id number] #### [facility] ([facility]) [address] [place], [place] [address]EHWKTRTNYXX TIME (PT) IN PPP BY COAGULATION ASSAY18.8 Seconds High12.3-14.8UnMercy Health Lorain HospitalComment on above:Performed By: #### [id number] #### [facility] ([facility]) [address], [place] [address]fs 40-34-322973Fzs patient is Moderately Stable - Low risk [...] and behaviors that affect risk of falls [place] fall precautions as indicated by assessment Educate [...] are exacerbated and prevent overall improvement and dischargeNormalUniversChildren's Hospital for RehabilitationANTI-XA (HEPARIN LEVEL)on 81-48-5411BOXTOBZ UNFRACTIONATED (U/ML) IN PPP BY CHROMOGENIC METHOD0.76 IU/mLHigh0.3-0.7UnMercy Health Lorain HospitalComment on above:Order Comment: Check anti-Xa level every 6 hours while on heparin infusion, or per protocol.Result Comment: Rivaroxaban and Apixaban will interfere with the anti Xa assay used to monitor UFH and LMWH. Performed By: #### [id number] #### [facility] ([facility]) [address] [place], [place] [address]PJKKUJB UNFRACTIONATED (U/ML) IN PPP BY CHROMOGENIC METHOD0.80 IU/mLHigh0.3-0.7UnMercy Health Lorain HospitalComment on above:Result Comment: Rivaroxaban and Apixaban will interfere with the anti Xa assay used to monitor UFH and LMWH.Performed By: #### [id number] #### [facility] ([facility]) [address] [place] [place], [place] [address]UBVLG METABOLIC PANELon 78-84-0555Qfcpa gap [Moles/Vol]12 mmol/L Normal7-20UnMercy Health Lorain HospitalComment on above:Performed By: #### [id number] #### [facility] ([facility]) [address] [place], [place] [address]Luzvncw [Mass/Vol]8.9 mg/dLNormal8.6-10.3UnMercy Health Lorain HospitalComment on above:Performed By: #### [id number] #### [facility] ([facility]) [address] [place], [place] [address]Yvokxhjx [Moles/Vol]107 mmol/SWhjqlv21-508WtksufjyieMercy Health Lorain HospitalComment on above:Performed By: #### [id number] #### [facility] ([facility]) [address] [place], [place] [address]DP5 [Moles/Vol]23 mmol/QMwwsmy66-09SrktgacrdnMercy Health Lorain HospitalComment on above:Performed By: #### [id number] #### [facility] ([facility]) [address] [place] [address]Plnqnvbqyo [Mass/Vol]0.89 mg/dLNormal0.70-1.30UnMercy Health Lorain HospitalComment on above:Performed By: #### [id number] #### [facility] ([facility]) [address] [place] [address]PVBYSKPNQY FILTRATION RATE ML/MIN/1.73 SQ M.VJMUIWQEA62.4 mL/min/1.73m*2Normal>60.0UnMercy Health Lorain HospitalComment on above: Result Comment: [facility]???s estimated glomerular filtration rate (eGFR) will [...] group of individuals.Performed By: #### [id number] #### [facility] ([facility]) [address] [place] [address]Ipygdwj [Mass/Vol]120 mg/cLFjnl00-141PomczorqsiMercy Health Lorain HospitalComment on above:Performed By: #### [id number] #### [facility] ([facility]) [address] [place] [address]Affjqkmhd [Moles/Vol]3.8 mmol/LNormal3.5-5.1UnMercy Health Lorain HospitalComment on above:Performed By: #### [id number] #### [facility] ([facility]) [address] [place] [address]Kpjrnd [Moles/Vol]138 mmol/IEkabzn521-213WwrvtraecsMercy Health Lorain HospitalComment on above:Performed By: #### [id number] #### [facility] ([facility]) [address] [place] [address]Mdhe nitrogen [Mass/Vol]26 mg/dLHigh7-25UnMercy Health Lorain HospitalComment on above:Performed By: #### [id number] #### [facility] ([facility]) [address] [place] [address]GNUM NITROGEN/CREATININE (MASS RATIO) IN SER/PLAS29.2Normal [facility] Anne HospitalComment on above:Performed By: #### [id number] #### [facility] ([facility]) [address] [place] [address]AMMli 43-86-3117Syydxrpebmi distribution width (RBC) [Ratio]13.2 %Zqeaqz66.5-15.0UnMercy Health Lorain HospitalComment on above:Performed By: #### [id number] ####[facility] ([facility])[address] [place] [address] ERYTHROCYTE MEAN CORPUSCULAR HEMOGLOBIN CONCENTRATION (G/DL) BY FYNICVYHH83.0 g/mEZepwvp14.0-35.0UnMercy Health Lorain HospitalComment on above:Performed By: #### [id number] ####[facility] ([facility])[address] [place], [place] [address]Lantzbbihv (Bld) [Volume fraction]37.5 %Low39.0-50.0UnMercy Health Lorain HospitalComment on above:Performed By: #### [id number] ####[facility] ([facility])[address] [place] [address]Awluhcrwal (Bld) [Mass/Vol]12.0 g/dL Low13.0-17.0UnMercy Health Lorain HospitalComment on above:Performed By: #### [id number] ####[facility] ([facility])[address] [place], [place] [address]HFM (RBC) [Entitic mass]31.1 ogPdkwzs22.0-33.0UnMercy Health Lorain Hospital Comment on above:Performed By: #### [id number] ####[facility] [place], [place] [address]BYB (RBC) [Entitic vol]97.2 vWPwqjds39.0-98.[address] Anne HospitalComment on above:Performed By: #### [id number] ####[facility] ([facility])[address] [place] [address]SZOYKJARP (10*3/UL) IN BLOOD AUTOMATED [id number] 10*3/fJSlcyum950-902DzvudyeakhMercy Health Lorain HospitalComment on above:Performed By: #### [id number] ####[facility] ([facility])[address] [place] [address]NTN (Bld) [#/Vol]3.86 10*6/uLLow 4.20-5.70UnMercy Health Lorain HospitalComment on above:Performed By: #### [id number] ####[facility] ([facility])[address] [place] [address]JBH (Bld) [#/Vol]8.30 10*3/uLNormal4.00-10.60UnMercy Health Lorain HospitalComment on above:Performed By: #### [id number] ####[facility] ([facility])[address] [place] [address]BHDT SENSITIVITY TROPONIN Ion 16-45-2885DG TROPONIN I (NG/L) 2641 ng/LCritically high<20UnMercy Health Lorain HospitalComment on above: Performed By: #### [id number] ####[facility] ([facility])[address] [place] [address]YXFCJ PANELon 62-80-4239UJXB/HDL3.1 mg/dLNormalUniversChildren's Hospital for RehabilitationComment on above:Performed By: #### [id number] #### [facility] ([facility]) [address] [place] [address]Ckpfekfduvg [Mass/Vol]106 mg/eBCyk965-955XfaagzpkjnMercy Health Lorain HospitalComment on above:Performed By: #### [id number] #### [facility] ([facility]) [address] [place] [address]Qtobmeywm [Mass/Vol]67 mg/dLNormal<150UnMercy Health Lorain HospitalComment on above:Result Comment: TRIGLYCERIDE REFERENCE RANGE: 20 YEARS AND OLDER CARDIOVASCULAR RISK LESS THAN 150 mg/dL LOW RISK 150 TO 199 mg/dL BORDERLINE RISK 200 mg/dL AND GREATER HIGH RISKPerformed By: #### [id number] #### [facility] ([facility]) [address] [facility] [place], [place] [address]Sltreverj [Mass/Vol]59 mg/dLNormal0-160UnMercy Health Lorain HospitalComment on above:Performed By: #### [id number] #### [facility] ([facility]) [address] [place], [place] [address]Ljwufohsn [Mass/Vol]34 mg/dQGcwtrv59-10JpmbexwkdbMercy Health Lorain HospitalComment on above:Performed By: #### [id number] #### [facility] ([facility]) [address] [place], [place] [address]GMK HDL CHOL. (LDL+VLDL)72NormalUniversChildren's Hospital for RehabilitationComment on above:Performed By: #### [id number] #### [facility] ([facility]) [address] [place], [place] [address]CEDGV VLDL-C13 mg/dLNormal0-40UnMercy Health Lorain HospitalComment on above:Performed By: #### [id number] #### [facility] ([facility]) [address] [place], [place] [address]YNSRPNSPUme 60-83-3411Tgkaksacp [Mass/Vol]2.1 mg/dLNormal1.9-2.[address] Anne HospitalComment on above:Performed By: #### [id number] #### [facility] ([facility]) [address] [place], [place] [address]AYGQMPE-JEYvg 03-95-3619VEK IN PPP BY COAGULATION ASSAY2.19High 0.90-1.10UnMercy Health Lorain HospitalComment on above:Result Comment: ACCCP RECOMMENDED INR FOR [...] OPTIMAL THERAPEUTIC RANGE. CHEST 1995;108:231S-246S.Performed By: #### [id number] ####[facility] [employer])[address] [place], [place] [address]JLDSXHAMVBX TIME (PT) IN PPP BY COAGULATION ASSAY24.5 SfvtkciPhfv86.3-14.8UnMercy Health Lorain HospitalComment on above:Performed By: #### [id number] ####[facility] [employer])[address] [place], [place] [address]pd 68-55-301043Uiw patient is Moderately Stable - Low risk of patient condition declining or worsening The patient's goals for the shift include comfort The clinical goals for the shift include safetyNormalUniversity of [facility] Medical Center30The patient is Moderately Stable - Low risk of patient condition declining or worsening The patient's goals for the shift include The clinical goals for the shift include vssNormalUniversChildren's Hospital for RehabilitationANTI-XA (HEPARIN LEVEL)on 26-88-5705ODWXLWI UNFRACTIONATED (U/ML) IN PPP BY CHROMOGENIC METHOD0.57 IU/mLNormal0.3-0.7UnMercy Health Lorain Hospital Comment on above:Result Comment: Rivaroxaban and Apixaban will interfere with the anti Xa assay used to monitor UFH and LMWH.Performed By: #### [id number] ####[facility] [employer])[address] [place], [place] [address]KQHPAFA UNFRACTIONATED (U/ML) IN PPP BY CHROMOGENIC METHOD0.43 IU/mLNormal0.3-0.[address] Anne HospitalComment on above:Order Comment: Check anti-Xa level every 6 hours while on heparin infusion, or per protocol.Result Comment: Rivaroxaban and Apixaban will interfere with the anti Xa assay used to monitor UFH and LMWH.Performed By: #### [id number] ####[facility] ([facility])[address] [place], [place] [address]INJYqw 79-11-8641JNMBRCSXU PARTIAL THROMBOPLASTIN TIME IN PPP BY COAGULATION ASSAY34.2 MyxmjtqWzizye31.0-35.0UnMercy Health Lorain HospitalComment on above:Order Comment: Baseline aPTT before initiating heparin infusion.Result Comment: Clinical significance of the APTT is questionable in the presence of heparin.Performed By: #### [id number] #### [facility] ([facility]) [address] [place], [place] [address]M-ZWRK NATRIURETIC PEPTIDEon 75-77-5298Osmatozjups peptide B (Bld) [Mass/Vol]1209 pg/mLHigh0-100UnMercy Health Lorain HospitalComment on above:Performed By: #### [id number] ####[facility] ([facility])[address] [place], [place] [address]MOBva 83-70-8163Kjliykesgwb distribution width (RBC) [Ratio] 13.3 %Kvdrvj45.5-15.0UnMercy Health Lorain HospitalComment on above: Performed By: #### [id number] #### [facility] ([facility]) [address] [place], [place] [address]YGFREGKAWIV MEAN CORPUSCULAR HEMOGLOBIN CONCENTRATION (G/DL) BY TNARCULBX46.7 g/vYTaopxd67.0-35.0UnMercy Health Lorain HospitalComment on above:Performed By: #### [id number] #### [facility] ([facility]) [address] [place], [place] [address]Ixfjcinmws (Bld) [Volume fraction]35.5 %Low39.0-50.0UnMercy Health Lorain HospitalComment on above:Performed By: #### [id number] #### [facility] ([facility]) [address] [place] [address]Cwsyfhyhom (Bld) [Mass/Vol]11.6 g/dLLow13.0-17.0UnMercy Health Lorain HospitalComment on above:Performed By: #### [id number] #### [facility] ([facility]) [address] [place] [address]MJT (RBC) [Entitic mass]31.0 jrHkxjks03.0-33.0UnMercy Health Lorain HospitalComment on above:Performed By: #### [id number] #### [facility] ([facility]) [address] [place] [address]OCS (RBC) [Entitic vol]94.9 wBXvhztu03.0-98.0UnMercy Health Lorain HospitalComment on above:Performed By: #### [id number] #### [facility] ([facility]) [address] [place] [address]EMZOFHNAY (10*3/UL) IN BLOOD AUTOMATED THYJN089 10*3/uLNormal 150-400UnMercy Health Lorain HospitalComment on above:Performed By: #### [id number] #### [facility] ([facility]) [address] [place] [address]ZEP (Bld) [#/Vol]3.74 10*6/uLLow4.20-5.70UnMercy Health Lorain HospitalComment on above:Performed By: #### [id number] #### [facility] ([facility]) [address] [place] [address]NWU (Bld) [#/Vol]9.65 10*3/uLNormal4.00-10.60UnMercy Health Lorain HospitalComment on above:Performed By: #### [id number] #### [facility] ([facility]) [address] [place] [address]REEEGPZTBBBMQ METABOLIC PANELon 76-62-8173Cmffrka [Mass/Vol]3.8 g/dLNormal3.5-5.7UnMercy Health Lorain HospitalComment on above:Performed By: #### [id number] #### [facility] ([facility]) [address] [place], [place] [address]DQI [Catalytic activity/Vol]69 U/JDxoucw60-055BkhcnuzirbMercy Health Lorain HospitalComment on above:Performed By: #### [id number] #### [facility] ([facility]) [address] [place], [place] [address]EGN [Catalytic activity/Vol]16 U/LNormal7-52UnMercy Health Lorain HospitalComment on above:Performed By: #### [id number] #### [facility] ([facility]) [address] [place], [place] [address]Bgkxb gap [Moles/Vol]12 mmol/LNormal7-20UnMercy Health Lorain HospitalComment on above:Performed By: #### [id number] #### [facility] ([facility]) [address] [place], [place] [address]BMX [Catalytic activity/Vol]21 U/VKrfrdq12-61ZquprxaysjMercy Health Lorain HospitalComment on above:Performed By: #### [id number] #### [facility] ([facility]) [address] [place], [place] [address]Ugjidcvlx [Mass/Vol]1.1 mg/dLHigh0.3-1.0UnMercy Health Lorain HospitalComment on above:Performed By: #### [id number] #### [facility] ([facility]) [address] [place], [place] [address]Momxtqd [Mass/Vol]8.7 mg/dLNormal8.6-10.3UnMercy Health Lorain HospitalComment on above:Performed By: #### [id number] #### [facility] ([facility]) [address] [place], [place] [address]Iykbvcfd [Moles/Vol]106 mmol/WTatioh66-444FksmlbsvurMercy Health Lorain HospitalComment on above:Performed By: #### [id number] #### [facility] [address] [place] [address]ZH0 [Moles/Vol]21 mmol/VJixesj89-78YivmavoexfMercy Health Lorain HospitalComment on above:Performed By: #### [id number] #### [facility] ([facility]) [address] [place] [address]Mmsioyxxts [Mass/Vol]1.04 mg/dLNormal0.70-1.30UnMercy Health Lorain HospitalComment on above:Performed By: #### [id number] #### [facility] ([facility]) [address] [place] [address]OASSXFVBZV FILTRATION RATE ML/MIN/1.73 SQ M.MIZCQUHCH79.1 mL/min/1.73m*2Normal>60.0UnMercy Health Lorain HospitalComment on above: Result Comment: [facility]???s estimated glomerular filtration rate (eGFR) will [...] group of individuals.Performed By: #### [id number] #### [facility] ([facility]) [address] [place] [address]Yebdykv [Mass/Vol]133 mg/gLPzru79-473PtaxlnyzvfMercy Health Lorain HospitalComment on above:Performed By: #### [id number] #### [facility] ([facility]) [address] [place] [address]Ofsldrikk [Moles/Vol]3.4 mmol/LLow3.5-5.1UnMercy Health Lorain HospitalComment on above:Performed By: #### [id number] #### [facility] ([facility]) [address] [place], [place] [address]Uivwoka [Mass/Vol]6.0 g/dLNormal6.0-8.3UnMercy Health Lorain HospitalComment on above:Performed By: #### [id number] #### [facility] ([facility]) [address] [place], [place] [address]Fjatdn [Moles/Vol]136 mmol/AJfyegl179-919FmhuqjttczMercy Health Lorain HospitalComment on above:Performed By: #### [id number] #### [facility] ([facility]) [address] [place], [place] [address]Uthq nitrogen [Mass/Vol]33 mg/dLHigh7-25UnMercy Health Lorain HospitalComment on above:Performed By: #### [id number] #### [facility] ([facility]) [address] [place], [place] [address]WJVG NITROGEN/CREATININE (MASS RATIO) IN SER/PLAS31.7Normal [facility] HospitalComment on above:Performed By: #### [id number] #### [facility] ([facility]) [address] [place], [place] [address]LJCBCUBkc 15-62-3021INNHVMZ Attestation signed by Luna Kimble MD at [...] detailed note below, admitted with non-ST elevation CT Luna Kimble MD, ScM, MSc Cardiac [employer] Email: [email or web address] Cardiology Consult Note Reason for Consult: NSTEMI HPI: Rolando Boyd is a 89 y.o. 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 Patient was transferred from OSH where he was evaluated with dyspnea and chest discomfort. Troponins were elevated greater than 10,000. Patient diagnosed with NSTEMI and transferred to [facility] for further management. Initial labs: K3.4, [...] a past medical history of Atrial fibrillation ([facility]), CHF (congestive heart failure) ([facility]), Coronary artery disease, Heart valve disease, Hyperlipidemia, [...] per After Visit Summary. Follow up with dacono anticoagulation for INR Prescriptions Prior to Admission[2] [...] 09/17/25 ECG 12 lead (more content not included)...NormalUnMercy Health Lorain HospitalHIGH SENSITIVITY TROPONIN Ion 47-18-2326ZW TROPONIN I (NG/L)3331 ng/LCritically high <20UnMercy Health Lorain HospitalComment on above:Performed By: #### [id number] ####[facility] (AKER)[address] [place], [place] [address]VS TROPONIN I (NG/L)3682 ng/LCritically high<20UnMercy Health Lorain Hospital Comment on above:Performed By: #### [id number] #### [facility] (BE[facility]ER) [address] [place], [place] [address]MQ TROPONIN I (NG/L)4674 ng/LCritically high<20UnMercy Health Lorain HospitalComment on above:Performed By: #### [id number] #### [facility] ([facility]) [address] [place], [place] [address]ASje [id number] Attestation signed by Luna Kimble MD at [...] detailed note below, admitted with non-ST elevation CT Luna Kimble MD, ScM, MSc Cardiac [employer] Email: [email or web address] Cardiology Consult Note Reason for Consult: [...] Patient diagnosed with NSTEMI and transferred to [facility] for further management. Initial labs: K3.4, [...] per After Visit Summary. Follow up with dacono anticoagulation for INR Prescriptions Prior to Admission[2] [...] 09/17/25 ECG 12 lead (more content not included)...NormalUnMercy Health Lorain HospitalLACTIC ACID, PLASMAon 89-59-6180HGFWPXC (MMOL/L) IN SER/PLAS1.3 mmol/LNormal0.5-2.[address] [facility] HospitalComment on above:Performed By: #### [id number] #### [facility] ([facility]) [address] [place], [place] [address]NRDKNQWLCzp 53-76-2399Jfyrahrhf [Mass/Vol]1.7 mg/dLLow1.9-2.[address] [facility] HospitalComment on above:Performed By: #### [id number] #### [facility] ([facility]) [address] [place], [place] [address]GRFLEPU-JWOrk 17-40-5162CIC IN PPP BY COAGULATION ASSAY2.19High 0.90-1.10UnMercy Health Lorain HospitalComment on above:Result Comment: ACCCP RECOMMENDED INR FOR [...] OPTIMAL THERAPEUTIC RANGE. CHEST 1995;108:231S-246S.Performed By: #### [id number] ####[facility] (BETudou)[address] [place], [place] [address]ZUNJCXPKLSI TIME (PT) IN PPP BY COAGULATION ASSAY24.6 HblzqntWzxz81.3-14.8UnMercy Health Lorain HospitalComment on above:Performed By: #### [id number] ####[facility] (BEAKER)[address] [place], [place] [address]Uyxzqd Onlyon 95-43-3414Jdpsvt Only [id number] Alvin Boyd 1935 M Date Provider Department Center 09/01/2025 VOLODYMYR CASTRO [facility] Family History Family Status - Relation Status Age at Mother Father DeceasedNormalUniFulton County Health CenterOrders Onlyon 08-01-2025 Orders [id number] Alvin Boyd 1935 M Date Provider Department Center 08/01/2025 VOLODYMYR CASTRO QuantaporeC [facility] Family History Family Status - Relation Status Age at Mother Father DeceasedNormalUniFulton County Health CenterOrders Onlyon 07-19-2025 Orders [id number] Alvin Boyd 1935 M Date Provider Department Center 07/19/2025 VOLODYMYR CASTRO HVC CARD [facility] Family History Family Status - Relation Status Age at Mother Father DeceasedNoalUniFulton County Health Center36on [id number] Virginia Cannon MA Please tell him that the echocardiogram showed stable findings. Continue same management and follow-up as planned. Spoke to patient to advise patient of Echo results per Dr. Dutton. Patient verbalized understanding.[facility] SystemOrders Onlyon 51-93-1187Fyfkvd [id number] Alvin Boyd 1935 M Date Provider Department Center 07/01/2025 BLAINE RIVERA HVC CARD [facility] Family History Family Status - Relation Status Age at Mother Father DeceasedNormalUniFulton County Health CenterOffice Visiton 13-18-3246Budzzf-up [id number] Alvin Boyd 1935 M Date Provider Department Center 06/19/2025 PARISA MORALES CARD [facility] Family History Family Status - Relation Status Age at Mother Father Level of Service:78630 MO OFFICE/OUTPATIENT ESTABLISHED LOW MDM [address] [facility] HospitalOrders Onlyon 80-93-5513Giylkx [id number] Alvin Boyd 1935 M Date Provider Department Center 04/30/2025 BLAINE RIVERA HVC CARD [facility] No family history on fileNormalUniFulton County Health CenterOrders Onlyon 63-23-1080Bopjkn [id number] Alvin Boyd 1935 M Date Provider Department Center 03/30/2025 325BLAINE CAVAZOS HVC CARD [facility] No family history on [facility] Charles HospitalAerobic Cultureon 28-85-4458Pluwmlp CultureORGANISM: Klebsiella aerogenes (O:KLEAER) Quantity of Growth [...] RESISTANT TO ALL B-LACTAM DRUGS. PERFORMED BY: [place] [address] PATHOLOGIST PHYSICAL CHEMISTRY TEACHER TO VALDOVINOS [facility] Physician GroupComment on above: Performed By: #### AERC, GS #### [place] [address] USAGram Stainon 54-72-9285Uqouqklfkei observation Gram stain Nom (Unsp spec)Gram Stain Result 3+ White Blood Cells 2+ Gram Positive Cocci in Pairs 1+ Gram Positive Cocci 1+ Yeast Like Elements 1+ Epithelial Cells PERFORMED BY: [place] [address] PATHOLOGIST PHYSICAL CHEMISTRY TEACHER TO VALDOVINOS [facility] Physician GroupComment on above: Performed By: #### AERC, GS #### [place] [address] USAGram stain microscopyOrdered By: Jose Amado on 11-30-2024 Microscopic observation Gram stain Nom (Unsp spec)Gram stain microscopyCrystal Clinic Orthopedic CenterCBC AUTO DIFFon 27-17-9616TXBB #0.1 103/ulNormal0.0-0.1 The Uc HealthComment on above:Performed By: #### CBC #### [facility] [address] [place] [address] Dr. Dana AnguloBasophils/100 WBC (Bld)0.8 %Normal0.2-2.0The [facility] Comment on above:Performed By: #### CBC #### [facility] [address] [place] [address] Dr. Dana Chopra #0.1 103/ulNormal0.0-0.7The [facility]c HealthComment on above: Performed By: #### CBC #### [facility] [address] [place] [address] Dr. Dana Alexanderosinophils/100 WBC (Bld)0.9 %Normal0.9-7.0The [facility] Comment on above:Performed By: #### CBC #### [facility] [address] [place] [address] Dr. Dana Alexanderrythrocyte distribution width (RBC) [Ratio]13.2 %Mbertr67.0-15.0 The [facility]c HealthComment on above:Performed By: #### CBC #### [facility] [address] [place] [address] Dr. Dana AnguloHematocrit (Bld) [Volume fraction]37.1 %Critically low42.0-54.0 The [facility]c HealthComment on above:Performed By: #### CBC #### [facility] [address] [place] [address] Dr. Dana AnguloHemoglobin (Bld) [Mass/Vol]12.1 g/dLCritically low14.0-18.0The Uc HealthComment on above:Performed By: #### CBC #### [facility] [address] [place] [address] Dr. Dana Hemphill #0.03 10e3/ulNormal0.00-0.03The Uc HealthComment on above:Performed By: #### CBC #### [facility] [address] [place] [address] Dr. Yilan ChangIG %0.4 %Normal0.0-0.5The Uc HealthComment on above: Performed By: #### CBC #### [facility] [address] [place] [address] Dr. Dana Best #1.4 103/ulNormal1.2-3.8The Uc HealthComment on above:Performed By: #### CBC #### [facility] [address] [place] [address] Dr. Dana Sancheshocytes/100 WBC (Bld)19.0 %Critically low20.5-60.0The Uc HealthComment on above:Performed By: #### CBC #### [facility] [address] [place] [address] Dr. Dana Molina DIFF REQNONormalThe Uc HealthComment on above: Performed By: #### CBC #### [facility] [address] [place] [address] Dr. Dana Larson (RBC) [Entitic mass]30.6 fnMqjxpc70.9-34.0The Uc HealthComment on above:Performed By: #### CBC #### [facility] [address] [place] [address] Dr. Dana Wood (RBC) [Mass/Vol]32.6 g/yQIxwdkk60.9-35.2The Uc HealthComment on above:Performed By: #### CBC #### [facility] [address] [place] [address] Dr. Dana Issa (RBC) [Entitic vol]93.7 aWHzarun88.0-94.0The Uc HealthComment on above:Performed By: #### CBC #### [facility] [address] [place] [address] Dr. Dana Vera #0.5 103/ulNormal0.3-0.8The [facility] HealthComment on above:Performed By: #### CBC #### [facility] [address] [place] [address] Dr. Dana Sandovalocytes/100 WBC (Bld)7.2 %Normal1.7-12.0[facility] Comment on above:Performed By: #### CBC #### [facility] [address] [place] [address] Dr. Dana Mcclure #5.4 103/ulNormal1.4-6.5The [facility] HealthComment on above:Performed By: #### CBC #### [facility] [address] [place] [address] Dr. Dana Conteutrophils/100 WBC (Bld)71.7 %Ikiarf12.0-75.0The Uc HealthComment on above:Performed By: #### CBC #### [facility] [address] [place] [address] Dr. Dana Barrlet mean volume (Bld) [Entitic vol]9.6 fLNormal9.5-13.5The Cov[facility] HospitalComment on above:Performed By: #### CBC #### [facility] [address] [place] [address] Dr. Dana AnguloPLT165 103/wnFpfoct549-837Fuz Uc HealthComment on above: Performed By: #### CBC #### [facility] [address] [place] [address] Dr. Dana MoyaC3.96 106/ulCritically low4.70-6.10The Uc HealthComment on above:Performed By: #### CBC #### [facility] [address] [place] [address] Dr. Dana AnguloWBC7.5 103/ulNormal4.0-11.0The Uc HealthComment on above: Performed By: #### CBC #### [facility] [address] [place] [address] Dr. Dana Mccrary URINE PROFILEon 68-13-6011Jsadghgdl Ql (U)NegativeNormal NEGATIVEThe Uc HealthComment on above:Performed By: #### ERUR, UMICRO #### [facility] [address] [place] [address] Dr. Dana Arellanoarity (U)CLEARNormalCLEARTogus Va Medical CenterComment on above: Performed By: #### ARMANDOR, UMICRO #### [facility] [address] [place] [address] Dr. Dana Winters (U)LT. YELLOWNormalYELLOWTogus Va Medical CenterComment on above:Performed By: #### YOVANI, UMICRO #### [facility] [address] [address] [address] Dana White micrscopic examination will be performed if indicated. NormalThe Uc HealthComment on above:Performed By: #### ARMANDOR, UMICRO #### [facility] [address] [place] [address] Dr. Dana AnguloGlucose Ql (U)NegativeNormalNEGATIVETogus Va Medical CenterComment on above:Performed By: #### YOVANI UMICRO #### [facility] [address] [place] [address] Dr. Dana AnguloHemoglobin Ql (U)NegativeNormalNEGRegency Hospital Cleveland East on above:Performed By: #### YOVANI UMICRO #### [facility] [address] [place] [address] Dr. Dana AnguloKetones Ql (U)NegativeNormalNEGATIVETogus Va Medical CenterComment on above:Performed By: #### YOVANI, UMICRO #### [facility] [address] [place] [address] Dr. Dana AnguloLEUKOCYTESTRACEAbnormalNEGATIVETogus Va Medical CenterComment on above:Performed By: #### ERUR, UMICRO #### [facility] [address] [address] [address] Dana AnguloNitrite Ql (U)NegativeNormalNEGATIVETogus Va Medical CenterComment on above:Performed By: #### ERUR, UMICRO #### [facility] [address] [place] [address] Dr. Dana AngulopH (U)6.0 [pH]Normal5-9Togus Va Medical CenterComment on above: Performed By: #### YOVANI UMICRO #### [facility] [address] [address] [address] Dana AgnuloSPEC GRAVITY1.035Dwqkrj9.005-<=1.025The Uc HealthComment on above:Performed By: #### YOVANI UMICRO #### [facility] [address] [place] [address] Dr. Dana Raygoza PROTEINNegativeNormalNEGATIVE/ TRACEThe [facility] Comment on above:Performed By: #### YOVANI UMICRO #### [facility] [address] [place] [address] Dr. Dana Jean Baptiste MICRO INDINDICATEDNormalThe Uc HealthComment on above: Performed By: #### YOVANI UMICRO #### [facility] [address] [place] [address] Dr. Dana Yorkbilinogen Qn (U)0.2 {Delia'U}/dLNormal0.2 - 1.0The Uc HealthComment on above:Performed By: #### YOVANI UMICRO #### [facility] [address] [place] [address] Dr. Dana AnguloLACTATE/LACTIC ACIDon 75-57-8928Kinvjal [Moles/Vol]1.1 mmol/L Normal0.4-1.9The Uc HealthComment on above:Performed By: #### LACT #### [facility] [address] [place] [address] Dr. Dana AnguloLIPASEon 63-38-7055Lanapg [Catalytic activity/Vol]68.0 U/L Critically low73.0-393.0The Uc HealthComment on above:Performed By: #### CBC #### [facility] [address] [place] [address] Dr. Dana Ryan BLD IMMUNO SCREENon 61-53-2407TSMOSE BLOODNegativeNormal NEGATIVEThe Uc HealthComment on above:Performed By: #### HSTROPN #### [facility] [address] [address] [address] Dana ParkF 14(COMP METB)on 24-74-2726Zvphxli [Mass/Vol]3.8 g/dLNormal 3.4-5.0The Uc HealthComment on above:Performed By: #### CBC #### [facility] [address] [place] [address] Dr. Dana AnguloAlbumin/Globulin [Mass ratio]1.3 {ratio}NormalThe Uc HealthComment on above:Performed By: #### CBC #### [facility] [address] [place] [address] Dr. Dana Montano [Catalytic activity/Vol]70 U/GMqqvmo30-440Yjv [facility]c HealthComment on above:Performed By: #### CBC #### [facility] [address] [place] [address] Dr. Dana LopezT [Catalytic activity/Vol]22 U/HByehtm29-24Twj Uc HealthComment on above:Performed By: #### CBC #### [facility] [address] [place] [address] Dr. Dana Gautam gap [Moles/Vol]13.5 mmol/LNormalThe [facility] Comment on above:Performed By: #### CBC #### [facility] [address] [place] [address] Dr. Dana AnguloAST [Catalytic activity/Vol]25 U/GCsisrs62-29Eep [facility]c HealthComment on above:Performed By: #### CBC #### [facility] [address] [place] [address] Dr. Dana AnguloBilirubin [Mass/Vol]1.0 mg/dLNormal0.2-1.0The [facility] Comment on above:Performed By: #### CBC #### [facility] [address] [place] [address] Dr. Dana AnguloCalcium [Mass/Vol]9.7 mg/dLNormal8.5-10.1The [facility] Comment on above:Performed By: #### CBC #### [facility] [address] [address] [address] Dana AnguloChloride [Moles/Vol]103 mmol/MTyqkbc10-687Dor [facility] Comment on above:Performed By: #### CBC #### [facility] [address] [address] [address] Dana AnguloCO2 [Moles/Vol]25.1 mmol/ZZumsrs10.0-32.0The [facility] Comment on above:Performed By: #### CBC #### [facility] [address] [address] [address] Dana AnguloCreatinine [Mass/Vol]1.07 mg/dLNormal0.70-1.30The Uc HealthComment on above:Performed By: #### CBC #### [facility] [address] [place] [address] Dr. Cortez ChangEGFR-AF SOUTH SUDANESE>60Normal>=60The Uc HealthComment on above:Performed By: #### CBC #### [facility] [address] [address] [address] Dana AlexanderGFR-NON AF SOUTH SUDANESE>60Normal>=60The Uc HealthComment on above:Performed By: #### CBC #### [facility] [address] [place] [address] Dr. Dana AnguloGlobulin (S) [Mass/Vol]3.0 g/dLNormalThe [facility]c HealthComment on above:Performed By: #### CBC #### [facility] [address] [address] [address] Dana AnguloGlucose [Mass/Vol]115 mg/dLCritically rfzx97-319Zle [facility]c HealthComment on above:Performed By: #### CBC #### [facility] [address] [place] [address] Dr. Dana AnguloPotassium [Moles/Vol]3.6 mmol/LNormal3.5-5.1The [facility] Comment on above:Performed By: #### CBC #### [facility] [address] [place] [address] Dr. Dana AnguloProtein [Mass/Vol]6.8 g/dLNormal6.4-8.2The [facility] Comment on above:Performed By: #### CBC #### [facility] [address] [address] [address] Dana AnguloSodium [Moles/Vol]138 mmol/ALxbfce695-782Qcr [facility] Comment on above:Performed By: #### CBC #### [facility] [address] [address] [address] Dana AnguloUrea nitrogen [Mass/Vol]39.0 mg/dLCritically high7.0-18.0The Uc HealthComment on above:Performed By: #### CBC #### [facility] [address] [place] [address] Dr. Dana Mar nitrogen/Creatinine [Mass ratio]36.4 mg/mgNormalThe [facility]c HealthComment on above:Performed By: #### CBC #### [facility] [address] [place] [address] Dr. Dana AnguloPROTIMEfabi 08-50-3686XSK Coag (PPP) [Relative time]2.15 {INR} NormalThe Uc HealthComment on above:Performed By: #### PT, PTT #### [facility] [address] [place] [address] Dr. Dana Joseph GUIDELINESSEE BELOWNoLutheran HospitalComment on above:Result Comment: DESIRED INR: 2.0 - 3.0 CONDITIONS NOT LISTED BELOW 2.5 - 3.5 FOR PROSTHETIC HEART VALVE REPLACEMENT 2.5 - 3.5 RECURRENT THROMBOSIS Performed By: #### PT, PTT #### [facility] [address] [place] [address] Dr. Dana AnguloPT Coag (PPP) [Time]21.8 sCritically high9.0-11.6The Uc HealthComment on above:Performed By: #### PT, PTT #### [facility] [address] [place] [address] Dr. Dana Cuellar 58-18-3523uYGY Coag (Bld) [Time]35.3 ePiglyd06.3-36.2The Uc HealthComment on above:Performed By: #### PT, PTT #### [facility] [address] [place] [address] Dr. Dana Plasencia, HIGH SENSITIVITYon 31-37-5251RHSTJX76.2 pg/mLNormal 4.0-76.1The [facility] on above:Result Comment: CUT-OFF POINTS HAVE BEEN ESTABLISHED BASED ON THE FOURTH UNIVERSAL DEFINITIONS OF MYOCARDIAL INFARCTION. THE UPPER REFERENCE LIMIT (URL) OF TROPONIN, DEFINED THE 99TH PERCENTILE OF cTnI DISTRIBUTION IN A REFERENCE POPULATION, HAS BEEN CONFIRMED THE DECISION THRESHOLD FOR CT DIAGNOSIS.Performed By: #### HSTROPN #### [facility] [address] [place] [address] Dr. Dana ParikhTROP39.8 pg/mLNormal4.0-76.1The [facility] on above:Result Comment: CUT-OFF POINTS HAVE BEEN ESTABLISHED BASED ON THE FOURTH UNIVERSAL DEFINITIONS OF MYOCARDIAL INFARCTION. THE UPPER REFERENCE LIMIT (URL) OF TROPONIN, DEFINED THE 99TH PERCENTILE OF cTnI DISTRIBUTION IN A REFERENCE POPULATION, HAS BEEN CONFIRMED THE DECISION THRESHOLD FOR CT DIAGNOSIS.Performed By: #### HSTROPN #### [facility] [address] [place] [address] Dr. Dana WILLINGHAM ONLYon 73-34-6703KARFSPKOXYIE SEENNormalNONE SEENMercy Health St. [facility] on above:Performed By: #### ANGELINA PINARO #### [facility] [address] [place] [address] Dr. Dana Lisa identified Cx Nom (U)NOT INDICATEDNormalThe [facility] HealthComcaro center on above:Performed By: #### ANGELINA PINARO #### [facility] [address] [place] [address] Dr. Dana Lopez SEENNormalNONE SEENTogus Va Medical CenterComcaro center on above:Performed By: #### ANGELINA PINARO #### [facility] [address] [place] [address] Dr. Yilan ChangCrystals LM Nom (Urine sed)NONE SEENNormalNONE SEENThe [facility]c HealthComment on above:Performed By: #### ERUR, UMICRO #### [facility] [address] [address] [address] Cortez ChangEpithelial cells LM Ql (Urine sed)FEWAbnormalNONE SEEN /RAREThe [facility]c HealthComment on above:Performed By: #### ARMANDOR, UMICRO #### [facility] [address] [place] [address] Dr. Dana AnguloMUCOUSNONE SEENNormalNONE SEENThe [facility] HealthComment on above:Performed By: #### YOVANI, UMICRO #### [facility] [address] [place] [address] Dr. Dana MoyaCNONE SEENAbnormal0-2The [facility]c HealthComment on above: Performed By: #### YOVANI, UMICRO #### [facility] [address] [place] [address] Dr. Dana AnguloWBC2-5AbnormalNONE SEENThe [facility]c HealthComment on above: Performed By: #### YOVANI, UMICRO #### [facility] [address] [place] [address] Dr. Dana AnguloUS SINGLE QUAD RT UPPERon [id number] SINGLE QUAD RT UPPER Ultrasound abdomen right [...] Electronically authenticated by: DOMINIQUE JAUREGUI Date: 2022-12-18 13:05[facility] CenterBNAspirus [facility] 22-73-1284Tljwvimdtbr peptide B (Bld) [Mass/Vol]2364.0 pg/mLCritically high<=1,800.0The Uc HealthComment on above:Performed By: #### HSTROPN #### [facility] [address] [place] [address] Dr. Dana Saunders 49-46-9840Bfng nitrogen [Mass/Vol]18.0 mg/dLNormal7.0-18.0 The Uc HealthComment on above:Performed By: #### HSTROPN #### [facility] [address] [place] [address] Dr. Dana Heart AUTO DIFFon 76-73-0225TVPD #0.0 103/ulNormal0.0-0.1Tog[facility] Va Medical CenterComment on above:Performed By: #### CBC #### [facility] [address] [place] [address] Dr. Dana Sysophils/100 WBC (Bld)0.6 %Normal0.2-2.0[facility] Comment on above:Performed By: #### CBC #### [facility] [address] [place] [address] Dr. Dana Chopra #0.1 103/ulNormal0.0-0.7The [facility]c HealthComment on above: Performed By: #### CBC #### [facility] [address] [place] [address] Dr. Dana Alexanderosinophils/100 WBC (Bld)1.3 %Normal0.9-7.0[facility] Comment on above:Performed By: #### CBC #### [facility] [address] [place] [address] Dr. Dana Alexanderrythrocyte distribution width (RBC) [Ratio]13.9 %Nhmzde33.0-15.[address] [facility] on above:Performed By: #### CBC #### [facility] [address] [place] [address] Dr. Dana AnguloHematocrit (Bld) [Volume fraction]36.2 %Critically low42.0-54.0 The Uc HealthComment on above:Performed By: #### CBC #### [facility] [address] [place] [address] Dr. Dana AnguloHemoglobin (Bld) [Mass/Vol]11.4 g/dLCritically low14.0-18.0The [facility]c HealthComment on above:Performed By: #### CBC #### [facility] [address] [place] [address] Dr. Dana Hemphill #0.02 10e3/ulNormal0.00-0.03The [facility] on above:Performed By: #### CBC #### [facility] [address] [place] [address] Dr. Dana Hemphill %0.3 %Normal0.0-0.5The [facility] on above: Performed By: #### CBC #### [facility] [address] [place] [address] Dr. Dana SanchesH #1.4 103/ulNormal1.2-3.8The [facility]c HealthComment on above:Performed By: #### CBC #### [facility] [address] [place] [address] Dr. Dana Escobedomphocytes/100 WBC (Bld)19.8 %Critically low20.5-60.0The [facility] on above:Performed By: #### CBC #### [facility] [address] [place] [address] Dr. Dana WigginsUAL DIFF REQNONormalThe Uc HealthComment on above: Performed By: #### CBC #### [facility] [address] [address] [address] Dana Wood (RBC) [Entitic mass]30.9 qsUwqudh24.9-34.0The Uc HealthComment on above:Performed By: #### CBC #### [facility] [address] [address] [address] Dana Wood (RBC) [Mass/Vol]31.5 g/iCCxpezj24.9-35.2The [facility] HospitalComment on above:Performed By: #### CBC #### [facility] [address] [address] [address] Dana Wood (RBC) [Entitic vol]98.1 fLCritically high80.0-94.0The [facility]c HealthComment on above:Performed By: #### CBC #### [facility] [address] [place] [address] Dr. Dana Vera #0.5 103/ulNormal0.3-0.8The [facility]c HealthComment on above:Performed By: #### CBC #### [facility] [address] [place] [address] Dr. Dana Sandovalocytes/100 WBC (Bld)6.9 %Normal1.7-12.0The [facility] Comment on above:Performed By: #### CBC #### [facility] [address] [address] [address] Dana Mcclure #5.1 103/ulNormal1.4-6.5The [facility]c HealthComment on above:Performed By: #### CBC #### [facility] [address] [address] [address] Dana Conteutrophils/100 WBC (Bld)71.1 %Vjwgel42.0-75.0The [facility]c HealthComment on above:Performed By: #### CBC #### [facility] [address] [place] [address] Dr. Dana Barrlet mean volume (Bld) [Entitic vol]9.4 fLCritically low 9.5-13.5The [facility]c HealthComment on above:Performed By: #### CBC #### [facility] [address] [place] [address] Dr. Dana AnguloPLT164 103/lxAsrgnr558-013Wwf [facility]c HealthComment on above: Performed By: #### CBC #### [facility] [address] [place] [address] Dr. Dana AnguloRBC3.69 106/ulCritically low4.70-6.10The [facility] HospitalComment on above:Performed By: #### CBC #### [facility] [address] [place] [address] Dr. Dana AnguloWBC7.1 103/ulNormal4.0-11.0The Uc HealthComment on above: Performed By: #### CBC #### [facility] [address] [place] [address] Dr. Dana AnguloCREATININEon 89-49-7101Idkqbuvonl [Mass/Vol]1.10 mg/dLNormal 0.70-1.30The [facility]c HealthComment on above:Performed By: #### HSTROPN #### [facility] [address] [place] [address] Dr. Dana AlexanderGFR-AF SOUTH SUDANESE>60Normal>=60The Uc HealthComment on above:Result Comment: Previously reported as: >77 On 11/11/2022 10:45 By [email or web address] Previously reported as: (blank) On 11/11/2022 10:44 By [id number] By: #### HSTROPN #### [facility] [address] [place] [address] Dr. Dana AleaxnderGFR-NON AF SOUTH SUDANESE>60Normal>=60The Uc HealthComment on above:Result Comment: Previously reported as: >64 On 11/11/2022 10:45 By [email or web address] Previously reported as: (blank) On 11/11/2022 10:44 By [id number] By: #### HSTROPN #### [facility] [address] [place] [address] Dr. Dana AnguloCULTURE URINEon 84-28-4144BDIHRCF URINECulture Observations: NO GROWTH.NormalThe Uc HealthComment on above:Performed By: #### CBC #### [facility] [address] [address] [address] Dana AlexanderLECTROLYTESon 52-30-7038Lwoak gap [Moles/Vol]12.7 mmol/LNormal The Uc HealthComment on above:Performed By: #### HSTROPN #### [facility] [address] [address] [address] Dana AnguloChloride [Moles/Vol]103 mmol/HHbuyfj71-818Ofv [facility] Comment on above:Performed By: #### HSTROPN #### [facility] [address] [address] [address] Dana AnguloCO2 [Moles/Vol]29.0 mmol/KNqghhd74.0-32.0The [facility] Comment on above:Performed By: #### HSTROPN #### [facility] [address] [address] [address] Dana AnguloPotassium [Moles/Vol]4.7 mmol/LNormal3.5-5.1The [facility] Comment on above:Performed By: #### HSTROPN #### [facility] [address] [address] [address] Dana AnguloSodium [Moles/Vol]140 mmol/BFeivlv184-231Ewz [facility] Comment on above:Performed By: #### HSTROPN #### [facility] [address] [address] [address] Dana AnguloGLYCOHEMOGLOBIN A1Con 67-14-7770XFT RECOMMENDATIONSEE BELOWNormal [facility] Medical CenterComment on above:Result Comment: ADA RECOMMENDED LIMIT 4.0 - 6.0 ADA THERAPEUTIC TARGET < 7.0 ACTION SUGGESTED > 7.0Performed By: #### HSTROPN #### [facility] [address] [place] [address] Dr. Dana AnguloGlucose [Mass/Vol]120 mg/dLLouis Stokes Cleveland VA Medical CenterComment on above:Performed By: #### HSTROPN #### [facility] [address] [address] [address] Dana AnguloHbA1c (Bld) [Mass fraction]5.8 %Normal4.5-6.2[facility] Va Medical CenterComment on above:Performed By: #### HSTROPN #### [facility] [address] [address] [address] Dana AnguloLIPID PROFILEon 13-85-8039BHLS-HDL RATIO NORMSEE [facility] CenterComment on above:Result Comment: 3.3 - 4.4 LOW RISK 4.4 - 7.1 AVERAGE RISK 7.1 - 11.0 MODERATE RISK >11.0 HIGH RISKPerformed By: #### HSTROPN #### [facility] [address] [address] [address] Dana AnguloCholesterol [Mass/Vol]91 mg/dLNormal<=200The [facility] Comment on above:Performed By: #### HSTROPN #### [facility] [address] [address] [address] Dana AnguloCholesterol in HDL [Mass/Vol]49 mg/vQJakbyw04-42YdoTogus Va Medical CenterComment on above:Performed By: #### HSTROPN #### [facility] [address] [place] [address] Dr. Dana AnguloCholesterol in LDL [Mass/Vol]29.4 mg/dLLouis Stokes Cleveland VA Medical CenterComment on above:Performed By: #### HSTROPN #### [facility] [address] [address] [address] Dana Akinsesterol.total/Cholesterol in HDL [Mass ratio]1.9 {ratio} NormalTogus Va Medical CenterComment on above:Performed By: #### HSTROPN #### [facility] [address] [address] [address] Dana AnguloHDL NORMAL> or = 60 mg/dl - LOW CARDIOVASCULAR RISK <40 mg/dl - HIGH CARDIOVASCULAR RISKLouis Stokes Cleveland VA Medical CenterComment on above:Performed By: #### HSTROPN #### [facility] [address] [place] [address] Dr. Dana Wilkes CALC NORMALSEE BELOWLouis Stokes Cleveland VA Medical CenterComment on above:Result Comment: <100 mg/dl OPTIMAL 100 - 129 mg/dl NEAR OR ABOVE OPTIMAL 130 - 159 mg/dl BORDERLINE HIGH 160 - 189 mg/dl HIGH >190 mg/dl VERY HIGH Performed By: #### HSTROPN #### [facility] [address] [place] [address] Dr. Dana AnguloTriglyceride [Mass/Vol]63 mg/dLNormal<=150The [facility] Comment on above:Performed By: #### HSTROPN #### [facility] [address] [place] [address] Dr. Dana AnguloVLDL CALC12.6 mg/dLNoLutheran HospitalComment on above: Performed By: #### HSTROPN #### [facility] [address] [place] [address] Dr. Dana Perez PROFILEon 82-84-2910Unnqbac [Mass/Vol]3.7 g/dLNormal3.4-5.0 [facility] Medical CenterComcaro center on above:Performed By: #### HSTROPN #### [facility] [address] [place] [address] Dr. Dana AnguloAlbumin/Globulin [Mass ratio]1.2 {ratio}NormalThe [facility] HealthComcaro center on above:Performed By: #### HSTROPN #### [facility] [address] [place] [address] Dr. Dana Montano [Catalytic activity/Vol]68 U/BUnhffu06-364Uzk [facility] HealthComcaro center on above:Performed By: #### HSTROPN #### [facility] [address] [place] [address] Dr. Dana Iqbal [Catalytic activity/Vol]20 U/RQkztqg61-69Llk [facility] HospitalComment on above:Performed By: #### HSTROPN #### [facility] [address] [place] [address] Dr. Dana Salazar [Catalytic activity/Vol]21 U/UPcrijb73-68Zqf [facility]c HealthComment on above:Performed By: #### HSTROPN #### [facility] [address] [place] [address] Dr. Dana Martinez, CONJUGATED0.3 mg/dLCritically high0.0-0.2The [facility]c HealthComment on above:Performed By: #### HSTROPN #### [facility] [address] [place] [address] Dr. Dana Camposirubin [Mass/Vol]0.9 mg/dLNormal0.2-1.0The [facility] Comment on above:Performed By: #### HSTROPN #### [facility] [address] [place] [address] Dr. Dana AnguloGlobulin (S) [Mass/Vol]3.1 g/dLNormalThe [facility] HealthComment on above:Performed By: #### HSTROPN #### [facility] [address] [place] [address] Dr. Dana AnguloProtein [Mass/Vol]6.8 g/dLNormal6.4-8.2The [facility] Comment on above:Performed By: #### HSTROPN #### [facility] [address] [place] [address] Dr. Dana Machado 85-77-0965CLX0.426 uIU/mLNormal0.358-3.740The [facility]c HealthComment on above:Performed By: #### HSTROPN #### [facility] [address] [place] [address] Dr. Dana Raygoza (CLEAN/CATCH) WORK ORDER SORTING CLERK/MICRO IF IND.on 82-08-2003Bsqxuvavo Ql (U) NegativeNormalNEGATIVEThe [facility]c HealthComment on above:Performed By: #### HUMBERTO BA #### [facility] [address] [address] [address] Dana AnguloClarity (U)CLEARNormalCLEARTogus Va Medical CenterComment on above: Performed By: #### MEJIA UMICRO #### [facility] [address] [address] [address] Dana Winters (U)YELLOWNormalYELLOWThe [facility] HealthComment on above: Performed By: #### MEJIA UMICRO #### [facility] [address] [address] [address] Dana AnguloGlucose Ql (U)NegativeNormalNEGATIVEThe [facility] HealthComment on above:Performed By: #### MEJIA UMICRO #### [facility] [address] [address] [address] Dana AnguloHemoglobin Ql (U)NegativeNormalNEGATIVEThe [facility] on above:Performed By: #### MEJIA UMICRO #### [facility] [address] [address] [address] Dana AnguloKetones Ql (U)TRACEAbnormalNEGATIVEThe [facility] HealthComment on above:Performed By: #### MEJIA UMICRO #### [facility] [address] [place] [address] Dr. Dana AnguloLEUKOCYTESSMALLAbnormalNEGATIVETogus Va Medical CenterComment on above:Performed By: #### MEJIA UMICRO #### [facility] [address] [address] [address] Dana AnguloNitrite Ql (U)NegativeNormalNEGATIVETogus Va Medical CenterComment on above:Performed By: #### MEJIA UMICRO #### [facility] [address] [address] [address] Dana AngulopH (U)6.0 [pH]Normal5-9The [facility]c HealthComment on above: Performed By: #### MEJIA UMICRO #### [facility] [address] [address] [address] Dana Reynoso GRAVITY1.009Ubolru7.005-<=1.025The [facility]c HealthComment on above:Performed By: #### ANGELINA BARO #### [facility] [address] [address] [address] Dana Raygoza PROTEINTRACENormalNEGATIVE/ TRACEThe [facility] HealthComment on above:Performed By: #### ANGELINA BARO #### [facility] [address] [address] [address] Dana Jean Baptiste MICRO INDINDICATEDNoLutheran HospitalComment on above: Performed By: #### ANGELINA BARO #### [facility] [address] [place] [address] Dr. Dana Ivey Qn (U)1.0 {Delia'U}/dLNormal0.2 - 1.0The [facility]c HealthComment on above:Performed By: #### ANGELINA BARO #### [facility] [address] [place] [address] Dr. Dana Zarate MICROSCOPIC ONLYon 66-61-3101SDSFHGRAHQVRRXlmpxetbGOIW SEEN The [facility]c HealthComcaro center on above:Performed By: #### ANGELINA BARO #### [facility] [address] [place] [address] Dr. Dana Lisa identified Cx Nom (U)INDICATEDLouis Stokes Cleveland VA Medical CenterComment on above:Performed By: #### ANGELINA BARO #### [facility] [address] [place] [address] Dr. Dana ZhouSEENAbnormalNONE SEENTogus Va Medical CenterComment on above: Performed By: #### ANGELINA BARO #### [facility] [address] [place] [address] Dr. Dana Anderson LM Nom (Urine sed)NONE SEENNormalNONE SEENTogus Va Medical CenterComcaro center on above:Performed By: #### ANGELINA BARO #### [facility] [address] [address] [address] Cortez ChangEpithelial cells LM Ql (Urine sed)RARENormalNONE SEEN /RARETogus Va Medical CenterComment on above:Performed By: #### MEJIA, UMICRO #### [facility] [address] [address] [address] Dana AnguloMUCOUSNONE SEENNormalNONE SEENTogus Va Medical CenterComment on above:Performed By: #### UACSREGGIE, UMICRO #### [facility] [address] [address] [address] Dana AnguloNaxirZJC9-7Dzpxhlee6-1Ncm Bellevue HospitalComment on above:Performed By: #### QUINNCSREGGIE, UMICRO #### [facility] [address] [address] [address] Dana AnguloWBC2-5AbnormalNONE SEENTogus Va Medical CenterComment on above: Performed By: #### MEJIA, UMICRO #### [facility] [address] [address] [address] Dana AnguloVITAMIN D 25 OHon 92-99-3558ZCQ D 25-OH30.2 ng/mLNormalTogus Va Medical CenterComcaro center on above:Performed By: #### CBC #### [facility] [address] [address] [address] Dana Collins RANGESSEE [facility] Medical CenterComment on above: Result Comment: <20 ng/mL Vit D deficient 20 - <30 ng/mL Vit D insufficient 30 - 100 ng/mL Vit D sufficient >100 ng/mL Potential ToxicityPerformed By: #### CBC #### [facility] [address] [address] [address] Dana AnguloCardiovascular Lab Reporton 88-75-0716Urvfveygzvmtij Lab Report [facility] Patient Name: [facility] Alvin Sanchez MR #: [id number] Department of Physician: Geetha Blankenship M.D. Division of Service Date: 06/24/2019 Cardiology Birthdate: 1935 Adult Cardiovascular Room #: [facility] [address] [place] [id number] Cardiovascular Laboratory Report FINAL IMPRESSION: 1. Normal right and left ventricular filling pressures. 2. Preserved cardiac output and cardiac index. 3. Mild pulmonary artery hypertension. 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 He has been experiencing shortness of breath [...] modified Seldinger technique and ultrasound guidance, a 5-Taiwanese micropuncture was placed in right internal jugular vein. This was upsized to a regular 6-Taiwanese pinnacle sheath and a 6-Taiwanese Jackson was used for right heart catheterization. [...] Antonio M.D. Date Trans: 06/25/2019 05:12 Rashard/deniz DN_JN:[id number] cc: Rio Lal D.O. [address] [place] [address]KqryapMzyKnox Community HospitalNeurosurgery Office/Clinic Noteon 70-97-4980Ceeinyrkhuon Office/Clinic NoteChief Complaint BACK PAINHistory of Present [...] narrowing.Electronically signed by Arsalan Leija MD 15:39 TCleveland ClinicCT Spine Lumbar w/ Contraston [id number] Spine Lumbar w/ ContrastCLINICAL HISTORY: Pain and [...] Further degenerative changes are detailed above.Radiation Dose Estimate:CTDI(mGy):0.549529 / / / kVp:120.048307 / mAs:0.283748 / / / DLP(mGy-cm):5.601846Ojnz Part:CTDI(mGy):28.711267 / / / kVp:120.955178 / mAs:294.033416 / / / DLP(mGy-cm):632.202541Xubm Part: Final Dictated by: Naldo Aguilar MD MDictated DT/TM: 04.06.2018 11:34 amSigned by: Naldo Aguilar MD MSigned (Electronic Signature): 04.06.2018 3:49 pmTranscribed DT/TM: 04.06.2018 1:29 pm(If Report Is Signed, Electronically Signed in Other Vendor System)[facility] ClinicInpatient Clinical Summaryon 09-79-0601Uroxdb[place] [address] [place], [place] [address]Clinical SummaryPerson InformationName: Alvin Boyd Age: 82 Years : 1935Sex: Male PCP: Rio Lal DO Status: PCP: [id number]:White Ethnicity:Not or Language:EnglishMRN: [id number] Visit Id: Reason:stenosis, bilateral leg pain Speciality: Acuity:Enc Type: Outpatient in a Bed Med Service: Radiology-Diagnostic ImagingArrival:04/06/2018 08:16:35 Discharge: Dispo Type:Address:[address] [place] [id number]:Discharged To:Home Treatments:Devices/Equipment:Professional Skilled Services:Special Services and Community [...] [facility] 04/14/2018 14:30:00 04/14/2018 15:00:00 ConfirmedNormalWexner Medical CenterPTon 75-01-7635MKE Coag RelTime (PPP)1.1 {INR}Normal<=3.5BOhioHealth Marion General HospitalComment on above:Result Comment: INR has no normal range. INR Therapeutic range is:2.0-3.0 (AF, CVA, TIAs, DVT prophylaxis, acute DVT)2.5-3.5 ([facility] heart valves, recurrent thrombosis/emboli)Performed By: #### PTINR ####[address] [address]Mkvcbrkodda time (PT) Coag time (PPP)11.3 sNormal9.1-11.9BOhioHealth Marion General Hospital Comment on above:Performed By: #### PTINR ####[address] [address]VXCin 13-70-6782eHYD02.0 qMagvru18.0-28.8 [facility]ner Medical CenterComment on above:Performed By: #### PTT ####[address] [address]Wggosxju Counton 83-66-7073Yrqpjzhgg249 x10*3/zqJLjc729-118PzifnrgfwWexner Medical Center Comment on above:Performed By: #### PLTS ####[address] [address] [place], [place] [address]ET Myelography Lumbosacral Spineon 78-13-6333HE Myelography Lumbosacral SpineCLINICAL HISTORY: Radiculopathy.EXAMINATION:A fluoroscopically guided [...] Is Signed, Electronically Signed in Other Vendor System)C[facility] ClinicXR Spine Lumbosacral 2 or 3 Viewson [id number] Spine Lumbosacral 2 or 3 ViewsCLINICAL HISTORY: [...] without acute findings. 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 Upon completion [...] disc; L45 moderate canal stenosisElectronically signed by Peyman DIAZLexi 03/29/18 12:41 EDTNoal [facility]ner Medical CenterPain Management Office/Clinic Noteon 03-16-2018 Pain Management Office/Clinic [...] Injections: 11-09-17 Date Surgery: n/a Frequency PT: 8dkxjut1lqrtj Effective PT: not much help Effective Injections: [...] No qualifying data available.Electronically signed by Kendra Morales CNP Sasha 03/16/18 13:37 [facility] CenterPain Management Office/Clinic Noteon 47-16-5475Dkup Management Office/Clinic NoteChief Complaint low back radiates [...] Injections: 11-09-17 Date Surgery: n/a Frequency PT: 5szadcs9iyprs Effective PT: not much help Effective Injections: [...] qualifying data available.Electronically signed by Andrew DIAZKendra 02/19/18 12:56 EDTNormal [facility] SystemHistory and Physicalon 50-36-8102Wchnkut and PhysicalHistory of Present Illness The patient [...] tablet, 81 mg, 1 tabs, Oral, Daily iqlboabbcoif36 mg oral tablet, 40 mg, 1 tabs, [...] signed by Rosalee Silvestre MD 01/13/18 15:09 [facility] CenterPain Management Procedure Noteon 10-26-3296Ijow Management Procedure NotePROCEDURE: Bilateral sciatic nerve injection [...] signed by Rosalee Silvestre MD 01/13/18 15:09 [facility] WestAmbulatory Patient Educationon 09-67-4937Xvfrnshgwl Patient EducationPatient Education MaterialsName: Alvin Boyd Current Date: 01/06/2018 15:32:58 [place] 1935 [facility]: [id number] following sheet(s) are the Patient Education Leaflets [...] the next day. You must have a regional tanker truck driver that will wait in the [...] procedure: Please arrive at: Please check in at:Asw Specialist Desk in the Pain Management [facility], 3rd floor [facility] HospitalBonitaT[place]Reception Desk inside the Emergency Room at [address] [place]*Due to the sedation given for the procedure, you will not be permitted to drive until the following day. For this reason, you will need to bring a regional tanker truck driver to stay with you and [...] Hibiclens (a medicated soap) prior to your surgery.*Hutchinson teeth, rinse with water, but do not swallow.*Please wear comfortable clothing, without metal zippers or snaps. Do not wear contact lenses. Do wear your hearing aid. Please leave all jewelry and valuables at home; you may wear your wedding ring.*Please note that due to limited space, your family member/regional tanker truck driver will need to wait in the waiting area while you are in the procedure area. Absolutely no children should attend an appointment for an injection.*All prescription refills must be requested in advance. No prescription refills requested on theday of a procedure will be available until at least 3 business days later.*If your procedure is done in [place], you will be receiving a statement from [facility] for the professio nal (physician's) billing fees and for the technical (hospital's) fees and a separate statement forthe anesthesia provider. If your procedure is done in [place], you will be receiving a statement from [facility] for professional (physician's) billing fees, [...] questions or concerns, please contact the appropriate office:[facility] ([place] office) [phone] [facility] ([place] office) [phone] follow up appointment is scheduled for:AT:[facility] [address] [facility], 3rd floor [facility], [facility] [address] [facility], [address], [address], 2nd floor clinic, [address]?WHAT TO EXPECT AFTER THE PROCEDURE:Please note [...] increase pain. (for example, bending, twisting, walking, dry lumber grader).Try to avoid pain medication or sleeping during [...] call the office immediately if noted.Contact stimulator printing supplies sales representative with questions regarding stimulator [...] and call office immediately if noted.Contact stimulator printing supplies sales representative with questions regarding stimulator [...] esentative with questions regarding stimulator use.(see rep card)[facility] ClinicPain Management Office/Clinic Noteon 16-91-1406Ybvb Management Office/Clinic NoteChief Complaint bilateral posterior leg [...] PT: 01/16 Date Injections: 11-09-17 Frequency PT: 4bucijl4wuvfe Effective PT: not much help Effective Injections: [...] signed by Ara Morales CNP 01/06/18 15:15 [facility] WestPain Management Office/Clinic Noteon 55-58-6435Lqls Management Office/Clinic NoteHistory of Present Illness The [...] signed by Rosalee Silvestre MD 11/09/17 09:27 [facility] - WestProcedure Noteon 11-09-2017 Procedure NotePROCEDURE: Bilateral L4-5 lumbar [...] signed by Rosalee Silvestre MD 11/09/17 09:36 [facility] - WestAmbulatory Patient Educationon 33-40-4240Cvydgvfxwm Patient EducationPatient Education MaterialsName: Alvin Boyd Current Date: 10/14/2017 11:49:11 [place]: 1935 following sheet(s) are the Patient Education Leaflets for Alvin Boyd Name:You are scheduled for a:*Please allow up to 2 hours for your appointment. Late arrivals may result in delay or postponement of procedure.Date/Time of procedure: Please arrive at: Date/Time of procedure: Please arrive at: Please check in at:Asw Specialist Desk in the Pain Management Fsvjem[address]rx[address] [place] [address], 3rd floor [facility] [place]Reception Desk inside the Emergency Room at [address]*Due to the sedation given for the procedure, you will not be permitted to drive until the following day. For this reason, you will need to bring a regional tanker truck driver tostay with you and drive you [...] Hibiclens (a medicated soap) prior to your surgery.*Hutchinson teeth, rinse with water, but do not swallow.*Please wear comfortable clothing, without metal zippers or snaps. Do not wear contact lenses. Do wear your hearing aid. Please leave all jewelry and valuables at home; you may wear your wedding ring.*Please note that due to limited space, your family member/regional tanker truck driver will need to wait in the waiting area while you are in the procedure area. Absolutely no children should attend an appointment for an injection.*All prescription refills must be requested in advance. No prescription refills requested on the day of a procedure will be available until at least 3 business days later.*If your procedure is done in [place], you will be receiving a statement from [facility] for the professional (physician's) billing fees and for the technical (hospital's) fees and a separate statement for the anesthesia provider. If your procedure is done in [place], you will be receiving a statement from [facility] for professional (physician's) billing fees, [...] ions or concerns, please contact the appropriate office:[facility] ([place] office) [phone] [facility] ([place] office) [phone] follow up appointment is scheduled for:AT:[facility] [address] [facility], 3rd floor [facility], [facility] [address] [facility], [address], [facility] [address] [facility], 2nd floor clinic, [facility] [address] [facility]?WHAT TO EXPECT AFTER THE PROCEDURE:Please note [...] increase pain. (for example, bending, twisting, walking, dry lumber grader).Try to avoid pain medication or sleeping during [...] call the office immediately if noted.Contact stimulator printing supplies sales representative with questions regarding stimulator [...] and call office immediately if noted.Contact stimulator printing supplies sales representative with questions regarding stimulator [...] drainage and call immediately if noted.Contact stimulator printing supplies sales representative with questions regarding stimulator use.(see rep card)Nerve Root InjectionThenerve root injection is a procedure where a local anesthetic and steroid solution are administered near the nerve as it exits the spinal canal. This is done under fluoroscopy (watching under live x-ray) to deliver the drug to the precise location.Am I a candidate for a nerve root injection?At [facility], the provider examining you will decide whether [...] procedure. You are required to have a regional tanker truck driver remain in the facility before [...] at home the morning of the procedure. [facility] ClinicPain Management Office/Clinic Noteon 66-46-3002Wwva Management Office/Clinic NoteChief Complaint Low back and [...] Chiropractor: 11/2016 Date PT: 01/16 Frequency PT: 9zdwmsl5oxdun Effective PT: not much help Comments TENS: [...] data available.Electronically signed by Andrew DIAZ Kendra Gardnere 10/14/17 11:44 [facility] SystemHistory and Physical on 26-70-5456Bewgvjf and PhysicalHistory of Present IllnessHistory of Present [...] by Rosalee Silvestre MD 09/09/17 11:17 EDT [facility] ClinicComment on above:Order Comment: This dictation belongs to [...] available.Electronically signed by Rosalee Silvestre MD 09/09/17 11:20 [facility] CenterProcedure Noteon 09-09-2017 Procedure NotePROCEDURE: Radiofrequency ablation of [...] then removed. The patient [place] and transferred to the recovery area in stable condition, to be discharged home after meeting criteria and follow up as per treatment plan.Electronically signed by Rosalee Silvestre MD 09/09/17 11:21 [facility] CenterHistory and Physicalon 58-73-6580Mzwbgne and PhysicalHistory of Present Illness The patient [...] b y Rosalee Silvestre MD 08/26/17 14:38 [facility] SystemHistory and PhysicalHistory of Present Illness The [...] signed by Rosalee Silvestre MD 08/26/17 15:42 [facility] CenterProcedure Noteon 08-26-2017 Procedure NotePROCEDURE: Radiofrequency ablation of [...] signed by Rosalee Silvestre MD 08/26/17 15:42 [facility] CenterAmbulatory Patient Educationon 45-94-1520Kbfirbspbq Patient EducationPatient Education MaterialsName: Alvin Boyd Rolando Current Date: 07/29/2017 14:05:41 [place]: 1935 following sheet(s) are the Patient Education Leaflets for Alvin Boyd Name:You are scheduled for a:*Please allow up to 2 hours for your appointment. Late arrivals may result in delay or postponement of procedure.Date/Time of procedure: Please arrive at: Date/Time of procedure: Please arrive at: Please check in at:Asw Specialist Desk in the Pain Management [id number] [place] [address], 3rd floor [facility] [place]Reception Desk inside the Emergency Room at [address]*Due to the sedation given for the procedure, you will notbe permitted to drive until the following day. For this reason, you will need to bring a regional tanker truck driver to stay with you and [...] Hibiclens (a medicated soap) prior to your surgery.*Hutchinson teeth, rinse with water, but do not swallow.*Please wear comfortable clothing, without metal zippers or snaps. Do not wear contact lenses. Do wear your hearing aid. Please leave all jewelry and valuables at home; you may wear your wedding ring.*Please note that due to limited space, your family member/regional tanker truck driver will need to wait in the waiting area while you are in the procedure area. Absolutely no children should attend an appointment alla injection.*All prescription refills must be requested in advance. No prescription refills requested on the day of a procedure will be available until at least 3 business days later.*If your procedure is done in [place], you will be receiving a statement from [facility] for the professional (physician's) billing fees and for the technical (hospital's) fees and a separate statement for the anesthesia provider. If your procedure is done in [place], you will be receiving a statement from [facility] for professional (physician's) billing fees, [...] ons or concerns, please contact the appropriate office:[facility] ([place] office) [phone] Valley [facility] ([place] office) [phone] follow up appointment is scheduled for:AT:[facility] [address] [facility], 3rd floor [facility], [facility]ercam[facility] [address] [facility], [address], [facility] [address] [facility] [address], 2nd floor clinic, [facility] [address] [facility]?WHAT TO EXPECT AFTER THE PROCEDURE:Please note the [...] increase pain. (for example, bending, twisting, walking, dry lumber grader).Try to avoid pain medication or sleeping during [...] call the office immediately if noted.Contact stimulator printing supplies sales representative with questions regarding stimulator [...] and call office immediately if noted.Contact stimulator printing supplies sales representative with questions regarding stimulator [...] drainage and call immediately if noted.Contact stimulator printing supplies sales representative with questions regarding stimulator [...] sedation. You are required to have a regional tanker truck driver remain in the facility before and during the procedure, then drive you home following the procedure.What should I expect after the procedure?You are required to have a regional tanker truck driver remain in the waiting room of [facility] during the procedure and drive you home [...] with your physician regarding your other diabetic medications.[facility] ClinicPain Management Office/Clinic Noteon 24-23-6374Elsy Management Office/Clinic Note Chief Complaint low back [...] Chiropractor: 11/2016 Date PT: 01/16 Frequency PT: 3lezzgy4uauvy Effective PT: not much help Comments TENS: [...] available. No qualifying data available.Electronically signed by_ Kendra Morales CNP 07/29/17 13:55 EDTNoOhioHealth Riverside Methodist HospitalHistory and Physicalon 97-41-2298Mvhvkme and PhysicalHistory of Present Illness The patient [...] signed by Rosalee Silvestre MD 06/29/17 13:18 [facility] CenterProcedure Noteon 06-29-2017 Procedure NotePROCEDURE: Bilateral L3, L4 [...] as well as the L3, L4 and Y3labxwd dorsal medial rami on the right. For [...] signed by Rosalee Silvestre MD 06/29/17 14:34 [facility] SystemHistory and Physicalon 06-15-2017 History and PhysicalHistory [...] signed by Rosalee Silvestre MD 06/15/17 16:22 [facility] CenterProcedure Noteon [id number] NotePROCEDURE: Bilateral L3, L4 and L5 lumbar [...] as well as the L3, L4 and U6inoomu dorsal medial rami on the right. For [...] signed by Rosalee Silvestre MD 06/15/17 16:23 EDT [facility] ClinicAmbulatory Patient Educationon 05-27-2017 Ambulatory Patient EducationPatient Education MaterialsName: Alvin Boyd Current Date: 05/27/2017 10:03:36 [facility]thelD[facility] 1935 MRN: [id number] following sheet(s) are the Patient Education Leaflets [...] have a lot of pain?Your physician at [facility] will do everything possible to [...] procedure. You are required to have a regional tanker truck driver remain in the facility before [...] Please arrive at: Please check in a t:Asw Specialist Desk in the Pain Management [address], 3rd floor [facility] [place]Reception Desk inside the Emergency Room at [address]*Due to the sedation given for the procedure, you will not be permitted to drive until the following day. For this reason, you will need to bring a regional tanker truck driver to stay with you and [...] Hibiclens (a medicated soap) prior to your surgery.*Hutchinson teeth, rinse with water, but do not swallow.*Please wear comfortable clothing, without metal zippers or snaps. Do not wear contact lenses. Do wear your hearing aid. Please leave all jewelry and valuables at home; you may wear your wedding ring.*Please note that due to limited space, yourfamily member/regional tanker truck driver will need to wait in the waiting area while you are in the procedure area. Absolutely no children should attend an appointment for an injection.*All prescription refills must be requested in advance. No prescription refills requested on the day of a procedure will be available until at least 3 business days later.*If your procedure is done in [place], you will be receiving a statement from [facility] for the professional (physician's) billing fees and for the technical (hospital's) fees and a separate statement for the anesthesia provider. If your procedure is done in [place], you will be receiving a statement from [facility] forprofessional (physician's) billing fees, technical (hospital's) fees, [...] any questions or concerns, please contact the appropriateoffice:[facility] ([place] office) [phone] [facility] ([place] office) [phone] follow up appointment is scheduled for:AT:[facility] [address] [facility], 3rd floor [facility] [address] [facility], [address], [facility] [address] [facility], 2nd floor clinic, [facility] [address] [place], [place] [address]?WHAT TO EXPECT AFTER THE PROCEDURE:Please note the [...] increase pain. (for example, bending, twisting, walking, dry lumber grader).Try toavoid pain medication or sleeping during the [...] call the office immediately if noted.Contact stimulator printing supplies sales representative with questions regarding stimulator [...] drainage and call office immediately ifnoted.Contact stimulator printing supplies sales representative with questions regarding stimulator [...] yellow/greendrainage and call immediately if noted.Contact stimulator printing supplies sales representative with questions regarding stimulator use.(see rep card)[facility]/Cl[facility] Noteon 54-17-8148Xkhg Management Office/Clinic NoteChief Complaint LOW BACK PAIN [...] Chiropractor: 11/2016 Date PT: 01/16 Frequency PT: 0gaogva9aechsNkbhxbjfm PT: not much help Comments TENS: NO [...] on his/her behalf by a trained medical records secretary. The creation of this document is based onthe provider?s statements to the medical records secretary.Problem List/Past Medical History Ongoing Acid reflux Angina [...] Carmenza Carlton 05/27/17 10:14 EDTElectronically signed by Auxier Kendra DIAZ 05/27/2017 10:22 [facility] Vital Signs Date TimeVital SignValuePerforming CpasncjisSwzlfbkj13-81-3231 09:25-0400Body hejenu222.7 cmSteven Rusher DPM Work Phone: [phone] [place], [place] [address]Gceuaetnsv87-74-1132 09:25-0400Body mass index (BMI) [Ratio]33.15 kg/s7Ctacbk Rusher DPM Work Phone: [phone]06-18-2025 09:25-0400Body .88 kgSteven Rusher DPM Work Phone: [phone] [place], [place] [address]111-20-2024 09:08-0500Body veckcw733.5 cmSteven Rusher DPM Work Phone: [phone]11-20-2024 09:08-0500Body mass index (BMI) [Ratio]34.57 kg/r4Zllwvp Rusher DPM Work Phone: [phone]11-20-2024 09:08-0500Body pjazax114.61 kgSteven Rusher DPM Work Phone: [phone] Healthcare Encounters Encounter DateEncounter TypeCare ProviderFacilityStart: 09-28-2025 End: 25-19-9419szhdkyjdvfSVCUDRY [facility] Hospitaltart: 67-27-9814Kiihufvipi and management of inpatientGEORGE MOUKAPRISCILAMercy Hospitaltart: 71-95-4538Xsugiqtzjc and management of inpatient LUNA [facility]: 83-70-6554Bylbxqbbjx and management of inpatientABHISHEK [facility] Hospitaltart: 09-17-2025 End: 52-70-1369Wrwrftdumd and management of inpatientDARYL T [facility] Hospitaltart: 92-78-1966oudggfwgjhSDSV CHACleveland Clinic Foundationtart: 66-06-6254qtebhjeznnSZKLU [facility] Hospitaltart: 49-95-5249olgqhlzqefBTIUUniversity Hospitals Elyria Medical Centertart: 91-19-0317mxljnqiwigZFKEWUK Healthcare Start: 14-56-7214oktimnmxmjZHJFZBerger Hospitaltart: 06-19-2025 End: 03-74-6191iwwdyyplqkDULGSN MOUKARBELMercy Health St. Anne Hospital Start: 05-17-2025 End: 52-61-2920Wlfpqx flowsheetSteven A Rusher DPM Work Phone: [facility]RYStart: 05-17-2025 End: 55-54-2867Fhfvar flowsheetSteven A Rusher DPM Work Phone: [facility] PODIATRYStart: 05-17-2025 End: 56-08-5900Eaeldzx encounter procedureSteven A Rusher DPM Work Phone: [facility] PODIATRYComment on above:Dermatophytosis of nail (Primary Dx); Dystrophic nail; Pain around toenail, right foot; Pain around toenail, left footStart: 05-17-2025 End: 55-98-0390pkltbcubwsKOERHN A RUSHERNot AvailableStart: 05-09-2025 End: 96-27-1794fovyseuztoHSNHUniversity Hospitals Elyria Medical Centertart: 58-75-0765ozakuoqhlgBYLOCleveland Clinic Euclid Hospitaltart: 79-27-5172mjhrqzejyyGSXWCleveland Clinic Euclid Hospitaltart: 25-08-4209vloytgsbafBBXNCleveland Clinic Euclid Hospitaltart: 86-77-8056hcmrclbusfQGPIUniversity Hospitals Elyria Medical Centertart: 01-25-2025 End: 09-30-0370Sgzxhb flowsheetSteven A Rusher DPM Work Phone: [facility]ODIATRYStart: 01-25-2025 End: 07-70-4337Ffeszr flowsheetSteven A Rusher DPM Work Phone: [facility] PODIATRYStart: 01-25-2025 End: 35-58-4266Ttsfbbd encounter procedureSteven A Rusher DPM Work Phone: [facility] PODIATRYComment on above:Dermatophytosis of nail (Primary Dx); Dystrophic nail; Pain around toenail, right foot; Pain around toenail, left footStart: 01-25-2025 End: 93-26-7262jfsalqnrciUZRSLG A RUSHERNot AvailableStart: 11-30-2024 End: 56-71-6907pfqkfwvfuiYrsrebb M [facility] Work Phone: Start: 11-30-2024 End: 34-67-5027Fehatwcg Stacey Amado MD Work Phone: [phone] [place] [address] Ctr-LAB Path Spec Sally HospStart: 11-08-2024 End: 65-12-3289qddyhqijieBLIC [facility] Centertart: 10-19-2024 End: 68-07-0935Pzefbd flowsheetSteven A Rusher DPM Work Phone: [facility] PODIATRYStart: 10-19-2024 End: 32-89-0445Mlgjzg flowsheetSteven A Rusher DPM Work Phone: [facility] PODIATRYStart: 10-19-2024 End: 31-73-7936Rjlojqa encounter procedureSteven A Rusher DPM Work Phone: [facility] PODIATRYComment on above:Dermatophytosis of nail (Primary Dx); Dystrophic nail; Pain around toenail, right foot; Pain around toenail, left footStart: 10-19-2024 End: 39-54-0068ineorxqqohSWSNEY A RUSHERNot AvailableStart: 06-29-2024 End: 72-62-7014ltcbklctiyMKLKXI A RUSHERNot AvailableStart: 03-30-2023 End: 60-45-6965sgfczpvwzhJXLRMT H FAWWADFacility:O6Gmvyn: 03-02-2023 End: 16-57-7650ytbgthaiwsDOEWUD H FAWWADFacility:Q1Oomlx: 01-28-2023 End: 87-59-4131ispvyamsgiHPIXQM H FAWWADFacility:V1Vxjex: 12-31-2022 End: 71-21-4847fbzcougrqlADGRTB H FAWWADFacility:C8Fipcr: 12-18-2022 End: 58-26-5350eyafbqfdxjTRACLL CHONGFacility:S1Uvbff: 12-01-2022 End: 37-30-1719adqnafxwmhTEYUVV H FAWWADFacility:G4Ienwe: 11-11-2022 End: 57-64-6327itlffmbtraNE RIO VALONEFacility:P1Ihone: 10-30-2022 End: 60-45-3323mbqalwzliyBHFBAR H FAWWADFacility:U7Pqfwf: 09-30-2022 End: 08-95-9969fjksmbhnajGDEPVJ H FAWWADFacility:A4Xzcpe: 09-01-2022 End: 35-78-0102givhfrucocFHABOG H FAWWADFacility:C3Ahyhr: 07-31-2022 End: 52-45-5398sjzpjdbyksXOFREY H FAWWADFacility:W4Qelrp: 06-30-2022 End: 78-73-9746dfrnddjphnDYTJLL H FAWWADFacility:X0Fzgsf: 05-30-2022 End: 58-84-7759smudnwsrdpIMSUOH H FAWWADFacility:J2Scbrk: 06-24-2019 End: 55-49-5759Afzlmzg encounter procedureRIO LALFacility:UTMCStart: 06-21-2019 End: 92-58-7571Msisrmc encounter procedureGERBER Goldsteincility:UTMCStart: 04-13-2018 End: 51-61-4082PkqnqooofnHzuzuuc Lewis ValoneFacility:[facility] CenterStart: 04-06-2018 End: 76-35-7838ZsmrfecebpUMOYCRF LEWIS VALONEFacility:[facility] Start: 03-29-2018 End: 11-45-7941XkzphlonvzKYRRXLT KAY FOXFacility:[facility]Start: 03-16-2018 End: 98-20-3906ZqvgitorftZETWBGA SASHA AUXIERFacility:[facility] [place] Start: 02-19-2018 End: 15-41-1998HuexnthzktMPOUYEM LEWIS VALONEFacility:[facility] Start: 01-13-2018 End: 16-72-1776ZfjayxhswqTFLRZOOMAN BAKOSFacility:[facility] Start: 01-06-2018 End: 84-45-3041WahwdwtvdwIZXLZAJ SASHA AUXIERFacility:[facility] Start: 11-09-2017 End: 67-94-4812EwtbiwpfxeMTTAZZWGRK BAKOSFacility:[facility] Start: 10-14-2017 End: 25-08-2817PqovhjenicCAAZPYK SASHA AUXIERFacility:[facility] [place] Start: 09-09-2017 End: 92-59-0324DddglwvjafFRSLITKWVP BAKOSFacility:[facility] Start: 08-26-2017 End: 25-18-5034SnkqsjlwgaNCTKWDZHFO BAKOSFacility:[facility] Start: 07-29-2017 End: 92-56-2912UbztpmqjydRWHPJQA SASHA AUXIERFacility:[facility] Start: 06-29-2017 End: 12-05-6637JddgxhqhweHLSHHGESSZ BAKOSFacility:[facility] Start: 06-15-2017 End: 33-35-1789HjccumgyenEZPUSDGWNH BAKOSFacility:[facility] Start: 05-27-2017 End: 64-66-3733PqwufrhrheVOXRCAW SASHA AUXIERFacility:[facility] Procedures DateProcedureProcedure DetailPerforming ClinicianStart: 81-12-0664ZthfRashard Amado MD Work Phone: Plan of Treatment DateCare ActivityDetailAuthorStart: 09-18-2025 End: 45-20-1713Nzkjzih encounter fwhdoxyjr51/20/2025 9:30 AM EDT Procedure Visit [facility] [address] [place] [id number] Amy Daily DPM [address] [place] [address] [facility] PODIATRYStart: 45-27-8886Qbabtvrhl vaccinationInfluenza Vaccine (Season Ended)NOM HealthcareStart: 05-17-2025 End: 38-82-0489Mmsfddd encounter procedureNOMS PODIATRYComment on above: ArrivedStart: 01-25-2025 End: 16-83-7832Bvsmqfp encounter procedureNOMS PODIATRYComment on above: ArrivedStart: 15-57-5375Gvdvoqa CultureAerobic CultureTrinity Health System West Campustart: 29-99-1379Pjakqxqgs culture of sputumTrinity Health System West Campustart: 10-19-2024 End: 33-98-5788Fxmskeu encounter /20/2024 9:15 AM EST Procedure Visit [facility] [address] [place] [id number] Amy Daily, AURELIANO [address] [place] [address] ArrivedNOFREEMAN NEOSHO HOSPITAL PODIATRYComment on above:ArrivedStart: 27-73-3241Rwthybsbi vaccinationInfluenza Vaccine (#1)NOM HealthcareStart: 03-14-1928Egfridsiyarv Vaccine: 65+ Years (2 of 2 - PPSV23 or PCV20)Pneumococcal Vaccine: 65+ Years (2 of 2 - PPSV23 or PCV20)NOM HealthcareStart: 56-19-5439Fgvgeijdispk Vaccine: 65+ Years (2 of 2 - PPSV23)Pneumococcal Vaccine: 65+ Years (2 of 2 - PPSV23)[facility] Immunizations Immunization DateImmunizationNotesCare EelvadoeYrxpdpmd28-52-6345xnevkhvou, injectable, quadrivalent, preservative Live Daily DPM Work Phone: NOSD Mniastmvoo63-17-9053zouobwjum virus vaccine, unspecified formulationSteven Rusher DPM Work Phone: [facility] HospitalEpusiuxyod23-16-1550ezutsybogpnq conjugate vaccine, 13 valentSteven Rusher DPM Work Phone: [facility] HospitalTnsbwtgddi48-55-1329dunzbwkqk, injectable, quadrivalent, preservative freeSteven Rusher DPM Work Phone: [facility] Payers DatePayer CategoryPayerPolicy [id number]-[id number] Health InsuranceAARP ..[id number] 2002Medicare1960 [id number] [id number] [id number] [id number] 2..1.863724.3.57[id number] 2..1.885206.3.57[id number] 2..1.656833.3.57[id number] 2..1.571849.3.57[id number] 2..1.694032.3.57[id number] 2.16.840.1.281984.3.57[id number] 2.16840.1.179845.3.57[id number] 2.16840.1.489987.3.57[id number] 2.16840.1.706006.3.57[id number] 2.840.1.115768.3.579.2.493 [id number] 2.840.1.072284.3.57[id number] 2.840.1.801059.3.57[id number] 2.840.1.552780.3.57[id number] 2.840.1.274273.3.57[id number] 2.840.1.638400.3.57[id number] 2.840.1.681618.3.57[id number] 2.840.1.196944.3.57[id number] 2.840.1.663611.3.57[id number] 2.840.1.769[id number]-h2lx-[id number] 2.16.840.1.248452.3.579.2.531 Social History DateTypeDetailFacilityStart: 91-24-8112Ieuxmaa smoking status NHISEx-smokerNOMS HealthcareHistory of tobacco useCurrent smokerNOMS HealthcareHistory of tobacco useCigarette SmokerNOMS HealthcareStart: 77-15-3555Mwynnpd use and exposure Smokeless tobacco non-userNOMS HealthcareStart: 06-29-2024 End: 19-13-4400Lomganncy beverage intakeLifetime non-drinker (finding)[facility] HealthcareStart: 06-29-2024 End: 23-22-6812Zjeitml of Social functionNOMS HealthcareStart: 06-29-2024 End: 12-17-6793Ijrubgy use panelNOMS HealthcareStart: 53-93-3810Afvrgqg Comment Caffeine intake: noneNOMS HealthcareStart: 49-17-8114Wfx assigned at [facility] centerNot on fileFulton State HospitalTobao smoking status NHISUnknown if ever smokedKindred Healthcare Work Phone: Start: 23-26-1427VbpQgbn (finding)[facility] Campustart: 60-76-8226Cal Assigned At [facility] Clinical Notes 10-19-2024 to 09-28-2025 Note Date & FpkuCjhuKcgiqjsx66-61-4684 NoteCardiovascular Medicine [facility] SUBJECTIVE Chief Complaint Patient presents with Follow-up Patient is here today for a follow up [facility] admission S/P NSTEMI Coronary Artery Disease Congestive Heart Failure Hypertension DVT Atrial Fibrillation Cardiomyopathy Valve Disorder Mitral valve disorder Pulmonary embolism Hyperlipidemia Shortness of Breath Patient states its very hard to breath over the last 2 days with and without activity. Fatigue Increased greatly Alvin Boyd is a 89 y.o. male here for follow-up on his hypertension and HFpEF. His son accompanied him. Coronary Artery Disease Symptoms include shortness of breath. Risk factors include hyperlipidemia. His past medical history is significant for CHF. Congestive Heart Failure Associated symptoms include fatigue and shortness of breath. His past medical history is significant for CAD. Hypertension Associated symptoms include shortness of breath. Atrial Fibrillation Symptoms include shortness of breath. Past medical history includes atrial fibrillation, CAD, CHF and hyperlipidemia. Hyperlipidemia Associated symptoms include shortness of breath. Shortness of Breath His past medical history is significant for CAD. Fatigue Associated symptoms include fatigue. 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 He underwent PCI to the LAD last week. His visiting nurse notes that within the last 2 days he developed significant GROSS. He often feels SOB just with standing. He loses color in his face. He occasionally will feel dizzy. He took his last dose of aspirin today. INR yesterday was 1.7. Denies weight gain, leg swelling. He has a productive cough, not new for him. Discharge Summary (09/17/2025 - 09/20/2025) Date of Admission: 09/17/2025 Date of Discharge: [...] therapy, and obesity. He was transferred from [facility] for higher level of care after being diagnosed with NSTEMI, with an initial troponin of >10,000. On arrival to [facility], he was hemodynamically stable and pain-free. [...] pain-free. Disposition: Discharged home with home health. Patient Active Problem List Diagnosis CAD (coronary artery disease) Acute on chronic systolic heart failure, NYHA class 2 (CMS/HCC) Chronic atrial fibrillation (CMS/HCC) Presence of bivent (more content not included)...[facility]10-22-2025 NoteHospital Medicine Discharge Summary Date of Admission: [...] therapy, and obesity. He was transferred from [facility] for higher level of care after being diagnosed with NSTEMI, with an initial troponin of >10,000. On arrival to [facility], he was hemodynamically stable and pain-free. [...] Time Provider Department Center 09/28/2025 11:40 AM Doug Hurley CNP [facility] Your medication [...] These medications were s (more content not included)...[facility]10-22-2025 NotePhysical Therapy Physical Therapy Treatment Patient [...] made Communication Intact General Assessment Hearing Mild NUNAKAUYARMIUT Skin Integrity Patient had mediplex padding on [...] at end of session. PT Assessment PT Assessment/CAR TRACER Summary Pt demos difficulties with STS transitions, [...] bed without using bedr (more content not included)...[facility]10-22-2025 Note Attestation signed by Volodymyr Yuan [...] obesity who presented as a transfer from [facility] with dyspnea and diagnosis of NSTEMI. Patient was transferred from OSH where he was evaluated with dyspnea and chest discomfort. Troponins were elevated greater than 10,000. Patient diagnosed with NSTEMI and transferred to [facility] for further management. Initial labs: K3.4, [...] -- -- 60 16 -- -- 09/19/25 195 125/75 -- -- 60 14 100 % -- 09/19/25 1930 125/73 -- -- 71 20 100 % -- 09/19/25 192 130/76 37 ???C (98.6 ???F) Temporal 67 [...] 172 QT Interval 518 QTC CALCULATION(BAZETT) 518 R-[place] 266 T Wave [place] 81 Impression Atrial fibrillation Ventricular-paced rhythm Biventricular pacemaker detected Abnormal ECG When compared with ECG of 17-SEP-2025 09:35, No significant change was found Confirmed by Parisa Campbell ([id number]) on 09/19/2025 7:59:33 PM No results found for: CKTOTAL , CKMB , CKMBINDEX , TROPO (more content not included)...[facility]10-22-2025 Note09/20/25 0933 Referral Data Referral Source Physician Referral Reason Information Patient Information Primary Caregiver Family Activities of Daily Living Assistive Device Other (Comment) (Has rollator, lift chair, manual wheelchair, tall toilet.) Ambulation Independent Dressing Independent Feeding Independent Behavior Oriented Communication Talks;Understands speaking;Understands Icelandic Income Information Income Source Unemployed (States he [...] Discussed with pt who is agreeable with plan.[facility]10-21-2025 Note Occupational Therapy Occupational Therapy Evaluation [...] session, staff came to take patient to mini lab operator. Patient Summary: Patient is an 89 year old male who presented from [facility] with shortness of breath and was [...] cooperative. General Assessment General Assessment Hearing: Mild NUNAKAUYARMIUT Skin Integrity: Patient had mediplex padding on [...] Level of Function Prior Function Level of [place]: Needs assistance with ADLs, Needs assistance with homemaking Prior Functional Mobility: Independent with rollator Receives Help From: Family, Home health (CIRCUS LABORER: 3 hrs/day- 5 days a week, 2 hrs/day-2 days a week, Children check in AM and PM before and after work) ADL Assistance: Needs assistance Bath: Independent Toileting: Independent Dressing: Minimal (Needs assist putting socks on. Wears velcro strap adapted shoes.) Grooming: Independent Feeding: Independent Homemaking Assistance: Needs assistance (Patient 's CIRCUS LABORER performs most of the homemaking tasks. Family or CIRCUS LABORER take patient to appointments or to families house.) Meal Prep: Total Laundry: Total Vacuuming: Total Cleaning: Total Gardening: Total Yard Work: (Patient mows the lawn on his riding mechanical fitter.) Driving: Independent (Patient walks up to car [...] Bed Mobility From 1: (more content not included)...[facility]10-21-2025 NotePatient: Rolando Boyd Procedure Information Date/Time: 09/19/25 1530 Procedures: Coronary angiography Right heart cath Location: [facility] BATCH STILL OPERATOR 3 / [facility] VASCULAR LAB (Cath) Providers: Parisa Campbell MD [...] who consented to blood products. Additional Equipment RequestsUnMercy Health [facility]10-21-2025 Note Physical Therapy Physical Therapy Treatment Patient [...] bed without using bed (more content not included)...[facility]10-21-2025 NoteCAD (coronary artery disease) - CAD s/p KISHAN to LAD & RCA in 2012, HFimpEF s/p BiV Pacemaker placement 2016 - Presented to [facility] with a troponin of 10,000 and transferred to [facility] - Troponin 4674, 3682, 3331, 2641 [...] per protocol, K > 4, Mg > 2UnMercy Health [facility] Hospital10-21-2025 Note- Continue singulair.[facility]10-21-2025 Note- Encourage weight loss.[facility]10-21-2025 Note- Patient has not worn CPAP for 2 months. Reports bennie could not find a mask that works for him. - He reports he does not want to wear a CPAP when I offered to consult our pulmonary navigator.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10-21-2025 NoteHospital Medicine Daily Progress Note - 09/19/2025 11:10 AM; Room: [facility]318[facility] Admission: 09/17/2025 2:26 AM; Length of stay: 2 days THE HOSPITALIST TEAM PREFERS TO USE [employer] CHAT FOR NON-URGENT COMMUNICATION 7AM-7PM. IF I DO NOT RESPOND WITHIN 20 MINUTES OR URGENT MATTERS, PLEASE CALL THROUGH THE BOTTOM BRUSHER. FROM 7PM-7AM, PLEASE PAGE [phone](COVR). Code Status: Full Code Barriers to Discharge: cardiac cath Expected Discharge Date: pending cardiac cath findings Discharge Destination: home Overview Alvin Boyd is an 89 y.o. male with history of HTN, HLD, CAD s/p stent placement, HF s/p BiV pacemaker placement, and COPD presenting from [facility] with SOB and dx with NSTEMI. Patient was transferred from [facility] where he was evaluated because of shortness of breath and some chest discomfort. After investigation patient was noted to have NSTEMI with troponin of over 10,000. He came with no heparinization but was said to be on Coumadin. INR is not noted. 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 - He (more content not included)...[facility]10-21-2025 NoteReadmission Risk Score 12. Zero ED/Inpt admits in the past 6 months. OP Specialty bracelet former received complex care referral via [employer]. This commercial insurance underwriter reviewed the chart and pt does not meet criteria for Outpatient Specialty/Complex kaiako kura kaupapa maori program criteria at this time.[facility]10-21-2025 Note Attestation signed by Nabeel Cramer [...] personal documentation from me. Nabeel Cramer MD, [facility] Cardiology Progress Note Subjective 09/19: Patient seen [...] obesity who presented as a transfer from [facility] with dyspnea and diagnosis of NSTEMI. Patient was transferred from OSH where he was evaluated with dyspnea and chest discomfort. Troponins were elevated greater than 10,000. Patient diagnosed with NSTEMI and transferred to [facility] for further management. Initial labs: K3.4, [...] 09/19/25 0805 145/77 36.6 ???C (97.8 ???F) Temporal 60 17 99 % -- 09/19/25 [...] 188 QT Interval 524 QTC CALCULATION(BAZETT) 518 R-[place] -37 T Wave [place] 76 Impression Ventricular-paced rhythm with intrinsic complexes Biventricular pacemaker detected Abnormal ECG When compared with ECG of 24-SEP-2017 07:23, Vent. rate has decreased BY 7 BPM Confirmed by Volodymyr Yuan ([id number]) on 09/17/2025 10:21:06 AM No results found for: CKTOTAL , CKMB , CKMBINDEX , TROPONINI Complete Echo (TTE) w/wo Imaging Agent, Strain, 3D, Bubble Study Result Date: 09/18/2025 1 1 [facility] Heart Station [address] [place] [address] [phone] (fax) Echocardiogram-[facility] Name: ALVIN BOYD Study Date: 09/18/2025 10:20 AM B/P: 136 mmHg/90 mmHg HR: 123 bpm Date of : 1935 Location: [facility] Height: 68 in. Age: 89 year(s) Patient Room: [facility] Weight: 212 lb. Gender: Male Patient Status: [...] mildly increased. Right Ventricle: (more content not included)...[facility]10-20-2025 NotePhysical Therapy Physical Therapy Evaluation Patient [...] y.o. male who came from [facility] with SOB and dx with [...] General Assessment General Assessment Hearing: appears somewhat [place] Skin Integrity: observed areas intact. Pt has [...] Level of Function Prior Function Level of [place]: Needs assistance with homemaking, Independent with ADLs and functional transfers Prior Functional Mobility: Independent with rollator Receives Help From: Family, Home health (Pt's children check on him in mornings and evenings (before and after work). Pt has [employer] for 3 hrs/day on 5 days/week and [...] L, small shuffling steps (more content not included)...[facility]10-20-2025 Note Attestation signed by Jim Lewis MD at 09/18/2025 4:21 PM Mr. Boyd was seen and examined by me today with Dr. Morrison and I agree with his note today. He was transferred from [facility] with acute SOB and troponin >10,000. In addition BNP elevated. We plan R and coronary cath tomorrow however, his INR elevated on warfarin and not coming down. We advise vitamin K 2.5 mg today and reassess in the morning. I have discussed with him the expected risks of the procedure including , bleeding, CT, renal failure, vascular injury etc, and he [...] Patient diagnosed with NSTEMI and transferred to [facility] for further management. Initial labs: K3.4, [...] 188 QT Interval 524 QTC CALCULATION(BAZETT) 518 R-[place] -37 T Wave [place] 76 Impression Ventricular-paced rhythm with intrinsic complexes [...] greater than 10,000 at OSH, 4674 at [facility]. BNP 1209. Likely true type I NSTEMI in the setting of known CAD. Troponins downtrending (4674 > 3682 > 3331 > 2641) HFrEF, NYHA II-III TTE 09/18: LVEF 40% with mildly increased LV wall thickness. Mildly elevated right-sided pressures. Severely enlarged LA. Mild TR. 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10-20-2025 Note-continue singulairUn[facility]10-20-20[facility] Note- echo pending - continue lasix 20mg podaily - continue coreg 6.25mg po bidUnMercy Health [facility] Hospital10-20-2025 Note - CAD s/p KISHAN to LAD & RCA in 2012, HFimpEF s/p BiV Pacemaker placement 2017 - presented to [facility] with a troponin of 10,000 and transferred to [facility] - troponin 4674, 3682, 3331, 2641 - cards consulted - on heparin drip, lipitor, coreg - reports he does not take ASA at home, He is not on aspirin due to being on anticoagulation therapy for atrial fibrillation - plan for cardiac cath todayUnMercy Health [facility]10-20-2025 Note- continue lipitor 80mg nightly - will update lipid panelUnMercy Health [facility]10-20-2025 Note- encourage weight lossUnMercy Health [facility]10-20-2025 Note- 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 Reports bennie could not find a mask that works for him. - he reports he does not want to wear a CPAP when I offered to consult our pulmonary navigatorMercy Health St. [facility]10-20-2025 NoteHospital Medicine Daily Progress Note - 09/18/2025 7:31 AM; Room: [address] [place] [address] Admission: 09/17/2025 2:26 AM; Length of stay: 1 days THE HOSPITALIST TEAM PREFERS TO USE [employer] FOR NON-URGENT COMMUNICATION 7AM-7PM. IF I DO NOT RESPOND WITHIN 20 MINUTES OR URGENT MATTERS, PLEASE CALL THROUGH THE BOTTOM BRUSHER. FROM 7PM-7AM, PLEASE PAGE [phone](COVR). Code Status: Full Code Barriers to Discharge: cardiac cath Expected Discharge Date: pending cardiac cath findings Discharge Destination: home Overview Alvin Boyd is an 89 y.o. male who came from [facility] with SOB and dx with NSTEMI. Patient is an 89-year-old gentleman with the following past medical history; hypertension, HLD, CAD with stent, status post pacemaker placement, arthritis, obesity. Patient was transferred from [facility] where he was evaluated because of shortness [...] & Plan NSTEMI (non-ST elevated myocardial infarction) ([facility]) CAD (coronary artery disease) - CAD s/p KISHAN to LAD & RCA in 2012, HFimpEF s/p BiV Pacemaker placement 2017 - presented to [facility] with a troponin of 10,000 and transferred to [facility] - troponin 4674, 3682, 3331, 2641 - cards consulted - on heparin drip, lipitor, coreg - reports he does not take ASA at home, He is not on aspirin due to being on anticoagulation therapy for atrial fibrillation - plan for cardiac cath today Chronic atrial fibrillation ([facility]) Presence of biventricular cardiac pacemaker - 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10-19-2025 NotePatient seen and examined in the morning. Patient presenting from OSH with dyspnea. He denies having had chest pain since admission. Troponin seems to have peaked at 4000s. He was started on heparin drip. Cardiology saw patient and planning cath on 09/18. Carlton Angulo MD HospitalistUnMercy Health [facility]10-19-2025 Note-History of chronic defibrillation patient is on Coumadin at home. - Monitor heart rateUnMercy Health [facility] Hospital10-19-2025 Note-History of CAD - Currently in the throes of acute NSTEMI - Treat with morphine sulfate - Supplemental oxygen to keep saturation above 96% - Consult cardiologyUnMer[facility]10-19-2025 Note-Statins [facility]10-19-2025 Note-Weight loss is recommended by virtue of exercise and dietUnMercy Health [facility]10-19-2025 Note- History of CAD - Currently in the throes of acute NSTEMI - Treat with morphine sulfate - Supplemental oxygen to keep saturation above 96% - Consult cardiology DVT prophylaxis is VTE protocols per [facility] GI protection Protonix Monitor labs correct mellitus Cycle troponin Consult cardiology I discussed the plan of care with the patient that he is in agreementUnMercy Health [facility]10-19-2025 Note-Chronic device/problem. Will continue to monitor and interrogate if need beUnMercy [facility]10-19-2025 NoteHospital Medicine History and Physical 09/17/2025 2:53 AM THE HOSPITALIST TEAM PREFERS TO USE [employer] FOR NON-URGENT COMMUNICATION 7AM-7PM. IF I DO NOT RESPOND WITHIN 20 MINUTES OR URGENT MATTERS, PLEASE CALL THROUGH THE BOTTOM BRUSHER. FROM 7PM-7AM, PLEASE PAGE [phone](COVR). Chief Complaint No chief complaint on file. History of Present Illness Alvin Boyd is an 89 y.o. male who came from [facility] with SOB and dx with NSTEMI. Patient is an 89-year-old gentleman with the following past medical history; hypertension, HLD, CAD with stent, status post pacemaker placement, arthritis, obesity. Patient was transferred from [facility] where he was evaluated because of shortness of breath and some chest discomfort. After investigation patient was noted to have NSTEMI with troponin of over 10,000. She came with no heparinization but was said to be on Coumadin INR is not noted. We are going to start patient on heparin On [facility] bed he was lying in absolutely [...] Assessment and Plan 89-year-old gentleman transferred from [facility] with NSTEMI. Patient is being commenced on heparin and monitor enzymes and consult cardiology Assessment & Plan CAD (coronary artery disease) -History of CAD - Currently in the throes of acute NSTEMI - Treat with morphine sulfate - Supplemental oxygen to keep saturation above 96% - Consult cardiology Chronic atrial fibrillation ([facility]) -History of chronic defibrillation patient is on Coumadin at home. - Monitor heart rate Presence of biventricular cardiac pacemaker -Chronic device/problem. Will continue to monitor and interrogate if need be Hyperlipidemia -Statins Morbid obesity with BMI of 40.0-44.9, adult ([facility]) -Weight loss is recommended by virtue of exercise and diet NSTEMI (non-ST elevated myocardial infarction) (CMS/HCC) -History of CAD - Currently in the throes of acute NSTEMI - Treat with morphine sulfate - Supplemental oxygen to keep saturation above 96% - Consult cardiology DVT prophylaxis is VTE protocols per [facility] GI protection Protonix Monitor labs correct [...] Home medications are review (more content not included)...[facility]07-21-2025 NoteUT Cardiology - [facility] Subjective Alvin Boyd is a 89 y.o. year old male patient being seen for 1 year follow up pace had pacer check recently. 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 Do not repe (more content not included)...[facility]06-18-2025 History of Present illness Narrative* Amy Daily, DPM - 05/17/2025 9:30 AM EDT Images from [...] understanding. Amy Daily DPM documented in this [facility]02-26-2025 History of Present illness Narrative* Amy Daily [...] understanding. Amy Daily DPM documented in this [facility]02-26-2025 Instructions* Patient Instructions* Amy Daily DPM - 01/25/2025 9:30 AM EST As noted documented in this [facility]11-20-2024 History of Present illness Narrative* Amy Daily DPM - 10/19/2024 9:15 AM EST Images from [...] understanding. Amy Daily DPM [facility]* Diagnosis Dermatophytosis of nail- Primary Dystrophic nail Other specified disease of nail Pain around toenail, right foot Pain around toenail, left foot documented in this encounter [facility] HealthcareEvaluation noteNo assessment information availableKindred Healthcare Work Phone: Evaluation note* Diagnosis Dermatophytosis of nail- Primary Dystrophic nail Other specified disease of nail Pain around toenail, right foot Pain around toenail, left foot documented in this encounter [facility] HealthcareEvaluation note* Diagnosis Dermatophytosis of nail- Primary Dystrophic nail Other specified disease of nail Pain around toenail, right foot Pain around toenail, left foot documented in this encounter [facility] Healthcare Summary Purpose Family History No Family [...] section and content) DATE CREATED AUTHOR 05/19/2018 [facility] DATE CREATED AUTHOR AUTHOR'S ORGANIZ ATION 06/19/[address] [facility] DATE CREATED AUTHOR AUTHOR'S ORGANIZ ATION 05/08/2023 [facility] DATE CREATED AUTHOR AUTHOR'S ORGANIZ ATION 12/09/2024 [facility] DATE CREATED AUTHOR AUTHOR'S ORGANIZ ATION 05/20/2025 [facility] DATE CREATED AUTHOR AUTHOR'S ORGANIZ ATION 10/01/[address] [facility] Care Teams (unrecognized sec tion and content) Team MemberRelationshipSpecialtyStart DateEnd Date Rio Lal MD [address] [place] [address] [place], [place] [phone] PCP - GeneralInternal Medicine07/29/23Team MemberRelationshipSpecialtyStart Date End Date Rio Lal MD [facility] [place] [address] PCP - GeneralInternal Medicine07/29/23 Team Status: Inactive Member Role Status Dates Jose Amado MD Attending Provider Active Sta rt: November 30, 2024 End: November 30, 2024Team MemberRelationshipSpecialtyStart DateEnd Date Rio Lal MD [address] [place], [place] [phone] PCP - [facility]07/29/23Team MemberRelationshipSpecialtyStart Date End Date Roi Lal MD [address] [place], [place] [phone] PCP - [facility]07/29/23Te MemberRelationshipSpecialtyStart Date End Date Rio Lal MD [address] [place], [place] [phone] [facility] Reason for Visit (unrecogniz ed section and [...] BE BASED ON THE PRIMARY CLINICAL RECORDS. [facility] [employer] [facility]. provides no warranty or guarantee of the accuracy or completeness of information in this document.
[2025-10-05 08:43] LABS: Anion Gap 15.3; Blood Urea Nitrogen 26.0 mg/dL (7.0-18.0); Calcium 9.1 mg/dL (8.5-10.1); Carbon Dioxide 26.9 mmol/L (21.0-32.0); Chloride 105 mmol/L (98-107); Estimated GFR (African America >60 (>=60 mL/min/1.73m^2); Estimated GFR (Non-African Ame 59 (>=60 mL/min/1.73m^2); Glucose 133 mg/dL (74-106); Potassium 4.2 mmol/L (3.5-5.1); Sodium 143 mmol/L (136-145)
== END 2025-10-05 08:19 | disposition home or self-care (01) ==
LOC: LAB 08:20
PROVIDERS: PCP Internal Medicine; Visit Provider Nurse Practitioner Family
DX: R06.09 Other forms of dyspnea (principal)
CPT/HCPCS: 36415; 80048

== ENCOUNTER 2025-10-30 10:38 | Outpatient (RCR) | payer MEDICARE, SELFPAY | END 2025-11-29 13:11 | disposition home or self-care (01) | LOC: MM 10:38 | PROVIDERS: PCP Internal Medicine; Visit Provider Internal Medicine | DX: Z51.81 Encounter for therapeutic drug level monitoring (principal); Z79.01 Long term (current) use of anticoagulants; I48.91 Unspecified atrial fibrillation ==